=== PATIENT | female | born 1965 | race Caucasian/White ===

== ENCOUNTER → 2017-01-09 | Outpatient (CLI) | payer MEDICARE, OTHER ==
[~2017-01-09] MED LIST: ALPRAZolam 0.25 MG TAB PO STA
[2017-01-09 09:20] VITALS: BP 139/90; PULSE 99; RESP 18
[2017-01-09 09:35] LABS: Glucose,Whole Blood 365 mg/dL (75-99)
--- NOTE | 2017-01-09 11:14 | CT ---
EXAMINATION TYPE: CT angio chest DATE OF EXAM: 01/09/2017 COMPARISON: NONE HISTORY: Patient complains of MAYE chest pain. CT DLP: 1331.6 mGycm. Automated Exposure Control for Dose Reduction was Utilized. CONTRAST: CTA scan of the thorax is performed with IV Contrast, patient injected with 80 mL of Visipaque 320, p ulmonary embolism protocol. MIP Images are created on CT scanner and reviewed. The patient remain ag itated despite Xanax given for claustrophobia. Scanning was suboptimal due to patient body habitus an d CT machine triggering skinning early after contrast bolus. The patient was premedicated for iodine allergy. FINDINGS: LUNGS: Evaluation for pulmonary nodules limited secondary to extensive respiratory and patient motion . Scattered geographic groundglass opacities are seen throughout both lungs with a slightly lower lob e predominance. There is left hemidiaphragm elevation noted. There is no pleural effusion or pneumoth orax seen. The tracheobronchial tree is patent. MEDIASTINUM: The exam is nondiagnostic for pulmonary embolus. There are no greater than 1 cm hilar or mediastinal lymph nodes. No cardiomegaly or pericardial effusion is seen. There is engorgement of the superior vena cava and azygos veins. Main pulmonary artery is enlarged measuring 3.3 cm. OTHER: Moderate degenerative changes of the thoracic spine are noted. Numerous gallstones fill the pa rtially visualized gallbladder. IMPRESSION: 1. The exam is nondiagnostic for pulmonary embolus due to multiple penetrating factors. If there is f urther concern for pulmonary embolus nuclear medicine V/Q scan could be performed. 2. Multifocal groundglass opacities throughout the entirety of the lungs, partially related motion an d respiratory artifact, but also may represent mild interstitial pulmonary edema, possibly in the bas is of congestive heart failure as there is engorgement of the superior vena cava and azygos veins. 3. Left hemidiaphragm elevation, without comparison to prior exams it is unknown whether this is sand cutter terrance or new. Sniff test could be performed if there is concern for diaphragmatic paralyzation. 4. Enlargement of the main pulmonary artery that may clinically correlate with pulmonary arterial hyp ertension. 5. Numerous gallstones filling the partially visualized gallbladder.
== END | disposition home or self-care (01) ==
LOC: RADCTMAIN 01-08 17:13
PROVIDERS: ATTEND Internal Medicine Critical Care Medicine
DX: R91.8 Other nonspecific abnormal finding of lung field (principal); J98.6 Disorders of diaphragm
CPT/HCPCS: 82565; 84520; 71275; Q9967

== ENCOUNTER 2017-07-01 14:08 | Emergency (ER) | payer MEDICARE, OTHER ==
[2017-07-01] MEDS ORDERED: SODIUM CHLORIDE 0.9% 1,000 ML IV STA ×2 (14:51)
[2017-07-01] MEDS ORDERED: ONDANSETRON 4 MG/2 ML VIAL IVP STA (14:51)
--- NOTE | 2017-07-01 14:56 | ED ---
Abdominal Pain HPI - General Chief Complaint: Abdominal Pain Stated Complaint: poss kidney stones Time Seen by Provider: 07/01/17 14:32 Source: patient, RN notes reviewed, old records reviewed Mode of arrival: wheelchair Limitations: no limitations - History of Present Illness Initial Comments: 52-year-old female chief complaint of right-sided flank pain for the past 2 days , patient is concerned for UTI and kidney stones. She has history of obesity, CHF, Diabetes. She relates that she has nausea. Denies vomiting. She relates she has had normal bowel movements. She also states she has a history of known cholelithiasis. Patient reports that the pain is staying in her back. She denies any worsening chest pain and shortness of breath. She states that she has had some swelling come down from her legs. - Related Data Home Medications Medication Instructions Recorded Confirmed FLUoxetine HCL [PROzac] 20 mg PO BID 01/09/17 07/01/17 Furosemide [Lasix] 20 mg PO BID 01/09/17 07/01/17 Gabapentin [Neurontin] 600 mg PO BID 01/09/17 07/01/17 Gemfibrozil [Lopid] 600 tab PO BID 01/09/17 07/01/17 Glimepiride [Amaryl] 4 mg PO BID 01/09/17 07/01/17 Hydroxychloroquine Sulfate 200 mg PO BID 01/09/17 07/01/17 [Plaquenil] Insulin Glargine [Lantus] 60 unit SQ HS 01/09/17 07/01/17 Montelukast [Singulair] 10 mg PO DAILY 01/09/17 07/01/17 hydrOXYzine HCL [Atarax] 25 mg PO QID 01/09/17 07/01/17 traZODone HCL 50 mg PO HS 01/09/17 07/01/17 Albuterol Inhaler [Ventolin Hfa 2 puff INHALATION RT-Q4H PRN 01/14/17 07/01/17 Inhaler] Albuterol Nebulized [Ventolin 2.5 mg INHALATION RT-QID 01/14/17 07/01/17 Nebulized] Ondansetron HCl [Zofran] 8 mg PO BID 01/14/17 07/01/17 Aspirin EC [Ecotrin] 325 mg PO DAILY 07/01/17 07/01/17 Famotidine [Pepcid] 20 mg PO BID 07/01/17 07/01/17 predniSONE 5 mg PO BID 07/01/17 07/01/17 Previous Rx's Medication Instructions Recorded Acetaminophen-Codeine 300-30mg 1 tab PO Q6H PRN #12 tablet 07/01/17 [Tylenol #3] Nitrofurantoin Monohyd/M-Cryst 100 mg PO Q12HR #14 cap 07/01/17 [Macrobid] Ondansetron Odt [Zofran Odt] 4 mg PO Q8HR PRN #12 tab 07/01/17 Phenazopyridine [Pyridium] 100 mg PO TID #9 tablet 07/01/17 Allergies Allergy/AdvReac Type Severity Reaction Status Date / Time acetaminophen Allergy Swelling Verified 07/01/17 15:07 [From Darvocet-N] ciprofloxacin [From Cipro] Allergy Swelling Verified 07/01/17 15:07 diphenhydramine Allergy Swelling Verified 07/01/17 15:07 [From Benadryl] iodine Allergy Swelling Verified 07/01/17 15:07 propoxyphene Allergy Swelling Verified 07/01/17 15:07 [From Darvocet-N] red dye Allergy Swelling Verified 07/01/17 15:07 sulfacetamide Allergy Swelling Verified 07/01/17 15:07 [From Sulfamide] yellow dye Allergy Swelling Verified 07/01/17 15:07 Review of Systems ROS Statement: Those systems with pertinent positive or pertinent negative responses have been documented in the HPI. ROS Other: All systems not noted in ROS Statement are negative. Past Medical History Past Medical History: Cancer, Diabetes Mellitus, Deep Vein Thrombosis (DVT), Hypertension, Renal Disease, Rheumatoid Arthritis (RA), Thyroid Disorder Additional Past Medical History / Comment(s): lupus, leukemia,SLE LUPUS, GRAVES DZ , kidney stones,gout History of Any Multi-Drug Resistant Organisms: None Reported Past Surgical History: No Surgical Hx Reported Past Psychological History: No Psychological Hx Reported, Anxiety Smoking Status: Never smoker Past Alcohol Use History: None Reported Past Drug Use History: None Reported - Past Family History Mother Family Medical History: Congestive Heart Failure (CHF), Diabetes Mellitus Father Family Medical History: Congestive Heart Failure (CHF), Dialysis, Hypertension General Exam - General Exam Comments Initial Comments: This is a morbidly obese 52 year old female, no distress. Limitations: no limitations General appearance: alert, in no apparent distress Head exam: Present: atraumatic, normocephalic, normal inspection Eye exam: Present: normal appearance, PERRL, EOMI. Absent: scleral icterus, conjunctival injection, periorbital swelling ENT exam: Present: normal exam, mucous membranes moist Neck exam: Present: normal inspection. Absent: tenderness, meningismus, lymphadenopathy Respiratory exam: Present: normal lung sounds bilaterally, other (tenderness with minimal palpation over thoracic muscles and CVA tenderness. ). Absent: respiratory distress, wheezes, rales, rhonchi, stridor Cardiovascular Exam: Present: regular rate, normal rhythm, normal heart sounds. Absent: systolic murmur, diastolic murmur, rubs, gallop, clicks GI/Abdominal exam: Present: soft, normal bowel sounds, other (protruberant Panus. Rash noted underneath left panus. ). Absent: distended, tenderness, guarding, rebound, rigid Extremities exam: Present: normal inspection, full ROM, normal capillary refill. Absent: tenderness, pedal edema, joint swelling, calf tenderness Back exam: Present: CVA tenderness (R), paraspinal tenderness (over entire thoracic spine. Left and Right. ). Absent: normal inspection Neurological exam: Present: alert, oriented X3, CN II-XII intact Psychiatric exam: Present: normal affect, normal mood Skin exam: Present: warm, dry, intact, normal color. Absent: rash Course Vital Signs 07/01/17 07/01/17 07/01/17 14:29 16:35 17:02 Temperature 98.3 F 98.2 F 98 F Pulse Rate 94 83 93 Respiratory 20 18 20 Rate Blood Pressure 141/62 162/92 135/71 O2 Sat by Pulse 93 L 96 95 Oximetry Medical Decision Making - Medical Decision Making Patient is a 52 year old female with multiple comorbidities on 4L oxygen. She reports right flank pain for 2 days and odor to urine. Patient is adament about returning home, she refused CT scan at this time. Her urine is postibe for Large leukocyte esterase, 67 white blood cells. Many bacteria. 7 red blood cells. BUN is 24. Cr 1.4. Troponin is negative. BNP is within normal limits. White blood cells within normal limits at 9.0. Abdominal x-ray shows evidence of cholelithiasis. Limited exam noted. X-ray of the chest shows no acute cardio pulmonary process. At this time patient refuses CT for further testing for possible stone. Discussed at this time to treat UTI and patient given Rocephin and treated for pyelonephritis. She is allergic to cipro and bactrim. Discussed she has to have prompt follow up with PCP tomorrow. Will send her home with macrobid. All questions answered. Discharged home with nausea medication and pain medication. - Lab Data Result diagrams: 07/01/17 15:09 07/01/17 15:09 Lab Results 07/01/17 07/01/17 07/01/17 Range/Units 15:09 15:09 15:09 WBC 9.0 (3.8-10.6) k/uL RBC 4.56 (3.80-5.40) m/uL Hgb 12.6 (11.4-16.0) gm/dL Hct 37.3 (34.0-46.0) % MCV 81.7 (80.0-100.0) fL MCH 27.5 (25.0-35.0) pg MCHC 33.7 (31.0-37.0) g/dL RDW 13.0 (11.5-15.5) % Plt Count 383 (150-450) k/uL Neutrophils % 69 % Lymphocytes % 21 % Monocytes % 4 % Eosinophils % 5 % Basophils % 1 % Neutrophils # 6.2 (1.3-7.7) k/uL Lymphocytes # 1.9 (1.0-4.8) k/uL Monocytes # 0.3 (0-1.0) k/uL Eosinophils # 0.4 (0-0.7) k/uL Basophils # 0.1 (0-0.2) k/uL PT (9.0-12.0) sec INR (<1.2) APTT (22.0-30.0) sec Sodium 145 (137-145) mmol/L Potassium 4.9 (3.5-5.1) mmol/L Chloride 108 H (98-107) mmol/L Carbon Dioxide 22 (22-30) mmol/L Anion Gap 15 mmol/L BUN 24 H (7-17) mg/dL Creatinine 1.40 H (0.52-1.04) mg/dL Est GFR (CKD-EPI)AfAm 50 (>60 ml/min/1.73 sqM) Est GFR (CKD-EPI)NonAf 44 (>60 ml/min/1.73 sqM) Glucose 261 H (74-99) mg/dL Plasma Lactic Acid Efrain 1.5 (0.7-2.0) mmol/L Calcium 9.5 (8.4-10.2) mg/dL Magnesium 1.7 (1.6-2.3) mg/dL Total Bilirubin 0.5 (0.2-1.3) mg/dL AST 16 (14-36) U/L ALT 23 (9-52) U/L Alkaline Phosphatase 142 H (38-126) U/L Troponin I (0.000-0.034) ng/mL NT-Pro-B Natriuret Pep pg/mL Total Protein 7.5 (6.3-8.2) g/dL Albumin 4.1 (3.5-5.0) g/dL Amylase 45 (30-110) U/L Lipase 102 (23-300) U/L Urine Color Urine Appearance (Clear) Urine pH (5.0-8.0) Ur Specific Somers (1.001-1.035) Urine Protein (Negative) Urine Glucose (UA) (Negative) Urine Ketones (Negative) Urine Blood (Negative) Urine Nitrite (Negative) Urine Bilirubin (Negative) Urine Urobilinogen (<2.0) mg/dL Ur Leukocyte Esterase (Negative) Urine RBC (0-5) /hpf Urine WBC (0-5) /hpf Ur Squamous Epith Cells (0-4) /hpf Urine Bacteria (None) /hpf Hyaline Casts (0-2) /lpf Urine Mucus (None) /hpf 07/01/17 07/01/17 07/01/17 Range/Units 15:09 15:09 15:09 WBC (3.8-10.6) k/uL RBC (3.80-5.40) m/uL Hgb (11.4-16.0) gm/dL Hct (34.0-46.0) % MCV (80.0-100.0) fL MCH (25.0-35.0) pg MCHC (31.0-37.0) g/dL RDW (11.5-15.5) % Plt Count (150-450) k/uL Neutrophils % % Lymphocytes % % Monocytes % % Eosinophils % % Basophils % % Neutrophils # (1.3-7.7) k/uL Lymphocytes # (1.0-4.8) k/uL Monocytes # (0-1.0) k/uL Eosinophils # (0-0.7) k/uL Basophils # (0-0.2) k/uL PT 9.9 (9.0-12.0) sec INR 1.0 (<1.2) APTT 22.7 (22.0-30.0) sec Sodium (137-145) mmol/L Potassium (3.5-5.1) mmol/L Chloride (98-107) mmol/L Carbon Dioxide (22-30) mmol/L Anion Gap mmol/L BUN (7-17) mg/dL Creatinine (0.52-1.04) mg/dL Est GFR (CKD-EPI)AfAm (>60 ml/min/1.73 sqM) Est GFR (CKD-EPI)NonAf (>60 ml/min/1.73 sqM) Glucose (74-99) mg/dL Plasma Lactic Acid Efrain (0.7-2.0) mmol/L Calcium (8.4-10.2) mg/dL Magnesium (1.6-2.3) mg/dL Total Bilirubin (0.2-1.3) mg/dL AST (14-36) U/L ALT (9-52) U/L Alkaline Phosphatase (38-126) U/L Troponin I <0.012 (0.000-0.034) ng/mL NT-Pro-B Natriuret Pep 253 pg/mL Total Protein (6.3-8.2) g/dL Albumin (3.5-5.0) g/dL Amylase (30-110) U/L Lipase (23-300) U/L Urine Color Urine Appearance (Clear) Urine pH (5.0-8.0) Ur Specific Somers (1.001-1.035) Urine Protein (Negative) Urine Glucose (UA) (Negative) Urine Ketones (Negative) Urine Blood (Negative) Urine Nitrite (Negative) Urine Bilirubin (Negative) Urine Urobilinogen (<2.0) mg/dL Ur Leukocyte Esterase (Negative) Urine RBC (0-5) /hpf Urine WBC (0-5) /hpf Ur Squamous Epith Cells (0-4) /hpf Urine Bacteria (None) /hpf Hyaline Casts (0-2) /lpf Urine Mucus (None) /hpf 07/01/17 Range/Units 15:30 WBC (3.8-10.6) k/uL RBC (3.80-5.40) m/uL Hgb (11.4-16.0) gm/dL Hct (34.0-46.0) % MCV (80.0-100.0) fL MCH (25.0-35.0) pg MCHC (31.0-37.0) g/dL RDW (11.5-15.5) % Plt Count (150-450) k/uL Neutrophils % % Lymphocytes % % Monocytes % % Eosinophils % % Basophils % % Neutrophils # (1.3-7.7) k/uL Lymphocytes # (1.0-4.8) k/uL Monocytes # (0-1.0) k/uL Eosinophils # (0-0.7) k/uL Basophils # (0-0.2) k/uL PT (9.0-12.0) sec INR (<1.2) APTT (22.0-30.0) sec Sodium (137-145) mmol/L Potassium (3.5-5.1) mmol/L Chloride (98-107) mmol/L Carbon Dioxide (22-30) mmol/L Anion Gap mmol/L BUN (7-17) mg/dL Creatinine (0.52-1.04) mg/dL Est GFR (CKD-EPI)AfAm (>60 ml/min/1.73 sqM) Est GFR (CKD-EPI)NonAf (>60 ml/min/1.73 sqM) Glucose (74-99) mg/dL Plasma Lactic Acid Efrain (0.7-2.0) mmol/L Calcium (8.4-10.2) mg/dL Magnesium (1.6-2.3) mg/dL Total Bilirubin (0.2-1.3) mg/dL AST (14-36) U/L ALT (9-52) U/L Alkaline Phosphatase (38-126) U/L Troponin I (0.000-0.034) ng/mL NT-Pro-B Natriuret Pep pg/mL Total Protein (6.3-8.2) g/dL Albumin (3.5-5.0) g/dL Amylase (30-110) U/L Lipase (23-300) U/L Urine Color Yellow Urine Appearance Cloudy H (Clear) Urine pH 5.0 (5.0-8.0) Ur Specific Somers 1.016 (1.001-1.035) Urine Protein Trace H (Negative) Urine Glucose (UA) Trace H (Negative) Urine Ketones Negative (Negative) Urine Blood Small H (Negative) Urine Nitrite Negative (Negative) Urine Bilirubin Negative (Negative) Urine Urobilinogen <2.0 (<2.0) mg/dL Ur Leukocyte Esterase Large H (Negative) Urine RBC 7 H (0-5) /hpf Urine WBC 67 H (0-5) /hpf Ur Squamous Epith Cells 2 (0-4) /hpf Urine Bacteria Many H (None) /hpf Hyaline Casts 3 H (0-2) /lpf Urine Mucus Rare H (None) /hpf 07/01/17 16:20 EKG shows normal sinus rhythm, rightward axis. Borderline EKG. Ventricular rate of 83 bpm. ND interval 160 ms. QRS duration 86 ms. QT QTc is 396/465 ms. No notes of ST elevation or T-wave inversions. No speech or ventricular arrhythmias. - Radiology Data Radiology results: report reviewed CXR was reviewed and normal. KUB shows cholelithiasis. Disposition Clinical Impression: UTI (urinary tract infection) Disposition: HOME SELF-CARE Condition: Stable Instructions: Urinary Tract Infection in Women (ED) Additional Instructions: Patient is a follow-up with primary care provider in the next 1-2 days. Take antibiotics as prescribed. Return to emergency department if any alarming signs or symptoms occur. Prescriptions: Acetaminophen-Codeine 300-30mg [Tylenol #3] 1 tab PO Q6H PRN #12 tablet PRN Reason: Pain Nitrofurantoin Monohyd/M-Cryst [Macrobid] 100 mg PO Q12HR #14 cap Ondansetron Odt [Zofran Odt] 4 mg PO Q8HR PRN #12 tab PRN Reason: Pain Phenazopyridine [Pyridium] 100 mg PO TID #9 tablet Referrals: Fela Alicea MD [Primary Care Provider] - 1-2 days Time of Disposition: 16:48
[2017-07-01 15:24] LABS: Basophils # (A) 0.1 k/uL (0-0.2); Basophils % (A) 1 %; Eosinophils # (A) 0.4 k/uL (0-0.7); Eosinophils % (A) 5 %; HCT 37.3 % (34.0-46.0); HGB 12.6 gm/dL (11.4-16.0); Lymphocytes # (A) 1.9 k/uL (1.0-4.8); Lymphocytes % (A) 21 %; MCH 27.5 pg (25.0-35.0); MCHC 33.7 g/dL (31.0-37.0); MCV 81.7 fL (80.0-100.0); Mean Platelet Volume 7.1; Monocytes # (A) 0.3 k/uL (0-1.0); Monocytes % (A) 4 %; Neutrophils # (A) 6.2 k/uL (1.3-7.7); Neutrophils % (A) 69 %; Platelet Count 383 k/uL (150-450); RBC 4.56 m/uL (3.80-5.40)
[2017-07-01 15:33] LABS: Partial Thromboplastin Time 22.7 sec (22.0-30.0); Prothrombin Time 9.9 sec (9.0-12.0)
[2017-07-01 15:34] LABS: Albumin 4.1 g/dL (3.5-5.0); Calcium 9.5 mg/dL (8.4-10.2); Magnesium 1.7 mg/dL (1.6-2.3); Potassium 4.9 mmol/L (3.5-5.1); Total Bilirubin 0.5 mg/dL (0.2-1.3); Total Protein 7.5 g/dL (6.3-8.2)
--- NOTE | 2017-07-01 15:51 | XR ---
EXAMINATION TYPE: XR chest 2V DATE OF EXAM: 07/01/2017 COMPARISON: Prior chest x-ray 01/14/2017 HISTORY: Abdominal pain TECHNIQUE: Frontal and lateral views of the chest are obtained. FINDINGS: There is no focal air space opacity, pleural effusion, or pneumothorax seen. The cardiac silhouette size is stable. The osseous structures are intact. IMPRESSION: No acute cardiopulmonary process.
--- NOTE | 2017-07-01 15:53 | XR ---
Abdomen HISTORY: Pain Frontal view of the abdomen submitted on [address] chest 01/09/2017 Lung bases are clear. There is no evident bowel obstruction or pneumoperitoneum. Hyperdense material present in the right upper quadrant represents gallstones. Thoracic spondylosis is present. Exam may be limited by patient body habitus. IMPRESSION: Cholelithiasis. Limited exam.
[2017-07-01 15:56] LABS: Appearance,Urine Cloudy (Clear); Bacteria,Urine Many /hpf; Bilirubin,Urine Negative (Negative); Blood,Urine Small (Negative); Color,Urine Yellow; Glucose,Urine (UA) Trace (Negative); Hyaline Casts,Urine 3 /lpf (0-2); Ketones,Urine Negative (Negative); Leukocyte Esterase,Urine Large (Negative); Mucus,Urine Rare /hpf; Nitrite,Urine Negative (Negative); Protein,Urine Trace (Negative); RBC,Urine 7 /hpf (0-5); Specific Gravity,Urine 1.016 (1.001-1.035); Squamous Epithelial Cell,Urine 2 /hpf (0-4); Urobilinogen,Urine <2.0 mg/dL (<2.0); WBC,Urine 67 /hpf (0-5)
[2017-07-01] MEDS ORDERED: cefTRIAXone IN SWFI 1,000 MG/10 ML SYRINGE IVP STA (16:19)
[2017-07-01] MEDS ORDERED: MORPHINE SULFATE/PF 10MG/10ML VL IVP ONE (16:32)
[2017-07-01 17:02] VITALS: BP 135/71; PULSE 93; RESP 20; TEMP 98
== END 2017-07-01 17:15 | disposition home or self-care (01) ==
LOC: EC 14:08
DX: N39.0 Urinary tract infection, site not specified (principal); K80.20 Calculus of gallbladder without cholecystitis without obstruction; M54.6 Pain in thoracic spine; I11.0 Hypertensive heart disease with heart failure; I50.9 Heart failure, unspecified; E11.9 Type 2 diabetes mellitus without complications; E07.9 Disorder of thyroid, unspecified; M06.9 Rheumatoid arthritis, unspecified; N28.9 Disorder of kidney and ureter, unspecified; E66.9 Obesity, unspecified; Z68.44 Body mass index [BMI] 60.0-69.9, adult; M32.9 Systemic lupus erythematosus, unspecified; F41.9 Anxiety disorder, unspecified; Z87.442 Personal history of urinary calculi; Z85.6 Personal history of leukemia; Z79.82 Long term (current) use of aspirin; Z79.52 Long term (current) use of systemic steroids; Z79.4 Long term (current) use of insulin; Z79.899 Other long term (current) drug therapy; Z88.1 Allergy status to other antibiotic agents; Z88.6 Allergy status to analgesic agent; Z88.5 Allergy status to narcotic agent; Z88.2 Allergy status to sulfonamides; Z88.8 Allergy status to other drugs, medicaments and biological substances; Z91.09 Other allergy status, other than to drugs and biological substances
CPT/HCPCS: 36415; 93005; 83880; 80053; 82150; 83605; 83690; 83735; 84484; 85025; 85610; 85730; 81001; 87040; 71046; 74018; 99284; 96374; 96375 ×2; 96361; J2405; J0696; J2270

== ENCOUNTER → 2018-07-13 | Outpatient (CLI) | payer MEDICARE, OTHER ==
[2018-07-13 17:09] LABS: Basophils # (A) 0.1 k/uL (0-0.2); Basophils % (A) 1 %; Eosinophils # (A) 0.4 k/uL (0-0.7); Eosinophils % (A) 3 %; HCT 42.6 % (34.0-46.0); HGB 14.1 gm/dL (11.4-16.0); Lymphocytes # (A) 2.5 k/uL (1.0-4.8); Lymphocytes % (A) 21 %; MCH 27.5 pg (25.0-35.0); MCV 83.2 fL (80.0-100.0); Mean Platelet Volume 7.4; Monocytes # (A) 0.6 k/uL (0-1.0); Monocytes % (A) 5 %; Neutrophils # (A) 8.3 k/uL (1.3-7.7); Neutrophils % (A) 69 %; Platelet Count 397 k/uL (150-450); RBC 5.12 m/uL (3.80-5.40); RDW 14.2 % (11.5-15.5); WBC 11.9 k/uL (3.8-10.6)
[2018-07-13 17:43] LABS: Appearance,Urine Cloudy (Clear); Bacteria,Urine Rare /hpf; Bilirubin,Urine Negative (Negative); Blood,Urine Negative (Negative); Color,Urine Yellow; Glucose,Urine (UA) Negative (Negative); Hyaline Casts,Urine 10 /lpf (0-2); Ketones,Urine Negative (Negative); Leukocyte Esterase,Urine Small (Negative); Mucus,Urine Rare /hpf; Nitrite,Urine Negative (Negative); Protein,Urine Trace (Negative); RBC,Urine 2 /hpf (0-5); Specific Gravity,Urine 1.013 (1.001-1.035); Squamous Epithelial Cell,Urine 4 /hpf (0-4); Urobilinogen,Urine <2.0 mg/dL (<2.0)
[2018-07-13 23:19] LABS: Creatinine,Urine Random 106.5 mg/dL
[2018-07-13 23:37] LABS: Iron Saturation 22.51 (12.00-45.00)
[2018-07-13 23:48] LABS: Total Protein,Urine Random 18.1 mg/dL (0.0-13.5)
[2018-07-13 23:56] LABS: Vitamin D 25 Hydroxy 12.3 ng/mL (30.0-100.0)
[2018-07-14 00:03] LABS: Albumin 4.7 g/dL (3.80-4.90); Anion Gap 12.5 mmol/L (4.00-12.00); Calcium 9.3 mg/dL (8.7-10.3); Carbon Dioxide 22.5 mmol/L (21.6-31.8); Magnesium 1.8 mg/dL (1.5-2.4); Phosphorus 3.2 mg/dL (2.4-5.1); Uric Acid 9.7 mg/dL (2.9-7.7)
[2018-07-14 01:05] LABS: Hemoglobin A1C 8.3 % (4.0-6.0)
== END | disposition home or self-care (01) ==
LOC: LABWHC1 16:24
PROVIDERS: ATTEND Nurse Practitioner Family
DX: N39.0 Urinary tract infection, site not specified (principal); E55.9 Vitamin D deficiency, unspecified; N25.81 Secondary hyperparathyroidism of renal origin; M10.9 Gout, unspecified; D63.1 Anemia in chronic kidney disease; N18.3 Chronic kidney disease, stage 3 (moderate); E11.65 Type 2 diabetes mellitus with hyperglycemia; D50.9 Iron deficiency anemia, unspecified
CPT/HCPCS: 36415; 80048; 81001; 82040; 82306; 82570; 82728; 83036; 83540; 83550; 83735; 83970; 84100; 84156; 84550; 85025

== ENCOUNTER → 2018-07-17 | Outpatient (CLI) | payer MEDICARE, OTHER ==
[2018-07-17 19:06] LABS: LDL Cholesterol,Calculated 93.8 mg/dL (0.0-131.0); VLDL Calculation 50.2 mg/dL (5.00-40.00)
== END | disposition home or self-care (01) ==
LOC: LABWHC1 11:43
PROVIDERS: ATTEND Internal Medicine Endocrinology, Diabetes & Metabolism
DX: E78.2 Mixed hyperlipidemia (principal)
CPT/HCPCS: 36415; 80061

== ENCOUNTER → 2019-02-16 | Outpatient (CLI) | payer MEDICARE, OTHER ==
[2019-02-16 13:44] LABS: Basophils # (A) 0.1 k/uL (0-0.2); Basophils % (A) 1 %; Eosinophils # (A) 0.4 k/uL (0-0.7); Eosinophils % (A) 4 %; HCT 39.6 % (34.0-46.0); HGB 12.9 gm/dL (11.4-16.0); Lymphocytes # (A) 2.2 k/uL (1.0-4.8); Lymphocytes % (A) 19 %; MCH 27.8 pg (25.0-35.0); MCHC 32.5 g/dL (31.0-37.0); MCV 85.5 fL (80.0-100.0); Monocytes # (A) 0.4 k/uL (0-1.0); Monocytes % (A) 4 %; Neutrophils # (A) 8.1 k/uL (1.3-7.7); Neutrophils % (A) 72 %; Platelet Count 365 k/uL (150-450); RBC 4.64 m/uL (3.80-5.40); RDW 13.9 % (11.5-15.5); WBC 11.3 k/uL (3.8-10.6)
[2019-02-16 13:56] LABS: Appearance,Urine Cloudy (Clear); Bilirubin,Urine Negative (Negative); Blood,Urine Trace (Negative); Color,Urine Yellow; Glucose,Urine (UA) 3+ (Negative); Ketones,Urine Negative (Negative); Leukocyte Esterase,Urine Moderate (Negative); Mucus,Urine Rare /hpf; Nitrite,Urine Negative (Negative); Protein,Urine Trace (Negative); RBC,Urine 2 /hpf (0-5); Specific Gravity,Urine 1.019 (1.001-1.035); Squamous Epithelial Cell,Urine 2 /hpf (0-4); Urobilinogen,Urine <2.0 mg/dL (<2.0); WBC,Urine 22 /hpf (0-5)
[2019-02-16 20:06] LABS: % Iron Saturation 20.13 (12.00-45.00); African American GFR (CKD) 49.9 (60.0-200.0); Albumin 4.7 g/dL (3.80-4.90); Anion Gap 9.8 mmol/L (4.00-12.00); BUN/Creat Ratio 19.29 Ratio (12.00-20.00); Calcium 9.1 mg/dL (8.7-10.3); Carbon Dioxide 22.2 mmol/L (21.6-31.8); Magnesium 1.8 mg/dL (1.5-2.4); Phosphorus 3.2 mg/dL (2.4-5.1); Potassium 4.8 mmol/L (3.5-5.5); Uric Acid 7.5 mg/dL (2.9-7.7)
[2019-02-16 20:15] LABS: Ferritin 129.2 ng/mL (10.0-291.0)
[2019-02-16 20:28] LABS: Creatinine,Urine Random 165.3 mg/dL
[2019-02-16 20:36] LABS: Total Protein,Urine Random 39.1 mg/dL (0.0-13.5)
== END | disposition home or self-care (01) ==
LOC: LABWHC1 12:44
PROVIDERS: ATTEND Internal Medicine Nephrology
DX: N39.0 Urinary tract infection, site not specified (principal); E55.9 Vitamin D deficiency, unspecified; N25.81 Secondary hyperparathyroidism of renal origin; D63.1 Anemia in chronic kidney disease; M10.9 Gout, unspecified; N18.3 Chronic kidney disease, stage 3 (moderate); E21.1 Secondary hyperparathyroidism, not elsewhere classified; R80.9 Proteinuria, unspecified; E11.9 Type 2 diabetes mellitus without complications; I10 Essential (primary) hypertension; E78.5 Hyperlipidemia, unspecified; R07.9 Chest pain, unspecified
CPT/HCPCS: 36415; 80048; 81001; 82040; 82306; 82570; 82728; 83540; 83550; 83735; 83970; 84100; 84156; 84550; 85025

== ENCOUNTER → 2020-04-05 | Outpatient (CLI) | payer MEDICARE, OTHER ==
--- NOTE | 2020-04-05 14:35 | MM ---
Reason for exam: screening (asymptomatic). Baseline mammogram. History: Patient is postmenopausal and is nulliparous. Physical Findings: Nurse did not find any significant physical abnormalities on exam. MG 3D Screening Mammo W/Cad Bilateral CC, MLO, and XCCL view(s) were taken. There are scattered fibroglandular densities. Benign calcifications. There is no discrete abnormality. These results were verbally communicated with the patient and result sheet given to the patient on 04/05/20. ASSESSMENT: Benign, BI-RAD 2 RECOMMENDATION: Routine screening mammogram of both breasts in 1 year. Manage patient on a clinical basis.
== END | disposition home or self-care (01) ==
LOC: RADMAMWWP 06-24 15:07
PROVIDERS: ATTEND Internal Medicine
DX: Z12.31 Encounter for screening mammogram for malignant neoplasm of breast (principal)
CPT/HCPCS: 77063; 77067

== ENCOUNTER 2021-12-22 18:31 | Emergency (ER) | payer MEDICARE ==
[2021-12-22 19:07] VITALS: PULSE 75; TEMP 98
[2021-12-22] MEDS ORDERED: SODIUM CHLORIDE 0.9% 500 ML 500 ML IV ONE ×2 (19:51→21:44)
--- NOTE | 2021-12-22 19:55 | ED ---
Female Urogenital HPI - General Chief complaint: Vaginal Bleeding Stated complaint: vaginal bleeding Time Seen by Provider: 12/22/21 19:48 Source: patient, RN notes reviewed, old records reviewed Mode of arrival: wheelchair Limitations: no limitations - History of Present Illness Initial comments: 56-year-old female presents to the emergency room with 9 days of vaginal bleeding. She denies any pain. She states that she is going through 3 heavy flow pads a day. Her last menstrual cycle was 10 years ago she states related to her lupus. She does have a history of hypertension, DVT, rheumatoid arthritis. She states that she is not taking any blood thinners. MD Complaint: vaginal bleeding -: days(s) (9) Severity scale (1-10): 0 Patient : No Associated Symptoms: other (rectal bleeding) - Related Data Home Medications Medication Instructions Recorded Confirmed FLUoxetine HCL [PROzac] 20 mg PO BID 01/09/17 07/01/17 Furosemide [Lasix] 20 mg PO BID 01/09/17 07/01/17 Gabapentin [Neurontin] 600 mg PO BID 01/09/17 07/01/17 Glimepiride [Amaryl] 4 mg PO BID 01/09/17 07/01/17 Hydroxychloroquine Sulfate 200 mg PO BID 01/09/17 07/01/17 [Plaquenil] Insulin Glargine [Lantus] 60 unit SQ HS 01/09/17 07/01/17 Montelukast [Singulair] 10 mg PO DAILY 01/09/17 07/01/17 gemfibroziL [Lopid] 600 tab PO BID 01/09/17 07/01/17 hydrOXYzine HCL [Atarax] 25 mg PO QID 01/09/17 07/01/17 traZODone HCL 50 mg PO HS 01/09/17 07/01/17 Albuterol Inhaler [Ventolin Hfa 2 puff INHALATION RT-Q4H PRN 01/14/17 07/01/17 Inhaler] Albuterol Nebulized [Ventolin 2.5 mg INHALATION RT-QID 01/14/17 07/01/17 Nebulized] ondansetron HCL [Zofran] 8 mg PO BID 01/14/17 07/01/17 Aspirin EC [Ecotrin] 325 mg PO DAILY 07/01/17 07/01/17 Famotidine [Pepcid] 20 mg PO BID 07/01/17 07/01/17 predniSONE 5 mg PO BID 07/01/17 07/01/17 Previous Rx's Medication Instructions Recorded Acetaminophen-Codeine 300-30mg 1 tab PO Q6H PRN #12 tablet 07/01/17 [Tylenol #3] Nitrofurantoin Monohyd/M-Cryst 100 mg PO Q12HR #14 cap 07/01/17 [Macrobid] Ondansetron Odt [Zofran Odt] 4 mg PO Q8HR PRN #12 tab 07/01/17 Phenazopyridine [Pyridium] 100 mg PO TID #9 tablet 07/01/17 Allergies Allergy/AdvReac Type Severity Reaction Status Date / Time acetaminophen Allergy Swelling Verified 12/22/21 19:05 [From Darvocet-N] ciprofloxacin [From Cipro] Allergy Swelling Verified 12/22/21 19:05 diphenhydramine Allergy Swelling Verified 12/22/21 19:05 [From Benadryl] iodine Allergy Swelling Verified 12/22/21 19:05 propoxyphene Allergy Swelling Verified 12/22/21 19:05 [From Darvocet-N] red dye Allergy Swelling Verified 12/22/21 19:05 sulfacetamide Allergy Swelling Verified 12/22/21 19:05 [From Sulfamide] yellow dye Allergy Swelling Verified 12/22/21 19:05 Review of Systems ROS Statement: Those systems with pertinent positive or pertinent negative responses have been documented in the HPI. ROS Other: All systems not noted in ROS Statement are negative. Past Medical History Past Medical History: Cancer, Diabetes Mellitus, Deep Vein Thrombosis (DVT), Hypertension, Renal Disease, Rheumatoid Arthritis (RA), Thyroid Disorder Additional Past Medical History / Comment(s): lupus, leukemia,SLE LUPUS, GRAVES DZ , kidney stones,gout History of Any Multi-Drug Resistant Organisms: None Reported Past Surgical History: No Surgical Hx Reported Past Psychological History: No Psychological Hx Reported, Anxiety Past Alcohol Use History: None Reported Past Drug Use History: None Reported - Past Family History Mother Family Medical History: Congestive Heart Failure (CHF), Diabetes Mellitus Father Family Medical History: Congestive Heart Failure (CHF), Dialysis, Hypertension General Exam Limitations: no limitations General appearance: alert, in no apparent distress Head exam: Present: atraumatic Eye exam: Absent: scleral icterus, conjunctival injection, periorbital swelling, periorbital tenderness ENT exam: Present: mucous membranes moist Respiratory exam: Present: decreased breath sounds (Poor inspiratory effort). Absent: respiratory distress, wheezes, rales, rhonchi, stridor, accessory muscle use Cardiovascular Exam: Present: regular rate GI/Abdominal exam: Present: soft External exam: Absent: swelling, lesions, lacerations, ecchymosis Speculum exam: Present: vaginal bleeding, other (Large clots , unable to tolerate speculum exam) Extremities exam: Present: normal capillary refill. Absent: calf tenderness Neurological exam: Present: alert, oriented X3 Psychiatric exam: Present: normal affect, normal mood Skin exam: Present: warm, dry, pallor. Absent: rash, cyanosis, diaphoretic, petechiae Course Vital Signs 12/22/21 12/22/21 19:05 22:25 Temperature 98 F Pulse Rate 75 75 Respiratory 16 18 Rate Blood Pressure 100/64 106/83 O2 Sat by Pulse 92 L 100 Oximetry Medical Decision Making - Medical Decision Making Patient presents with vaginal bleeding for 9 days with heavy clots. Hemoglobin and Hematocrit are stable. Patient was unable to tolerate transvaginal ultrasound. On pelvic examination there was evidence of large c lots however patient was unable to tolerate a speculum exam related to discomfort. CT abdomen shows thickened endometrium with large uterus. No free fluid in the pelvis. I did explain to the patient the importance of following up with [facility] for continuation of care for her dysfunctional uterine bleeding. She was directed to return to the emergency room with any new or concerning symptoms including shortness of breath, dizziness or increased pain. Vital signs are stable. Case discussed with Dr Tipton, - Lab Data Result diagrams: 12/22/21 21:00 12/22/21 21:07 Lab Results 12/22/21 12/22/21 12/22/21 Range/Units 20:55 21:00 21:07 WBC 11.4 H (3.8-10.6) k/uL RBC 4.10 (3.80-5.40) m/uL Hgb 11.0 L (11.4-16.0) gm/dL Hct 34.3 (34.0-46.0) % MCV 83.7 (80.0-100.0) fL MCH 26.7 (25.0-35.0) pg MCHC 31.9 (31.0-37.0) g/dL RDW 14.4 (11.5-15.5) % Plt Count 379 (150-450) k/uL MPV 7.8 Neutrophils % 69 % Lymphocytes % 17 % Monocytes % 6 % Eosinophils % 4 % Basophils % 1 % Neutrophils # 7.9 H (1.3-7.7) k/uL Lymphocytes # 2.0 (1.0-4.8) k/uL Monocytes # 0.7 (0-1.0) k/uL Eosinophils # 0.4 (0-0.7) k/uL Basophils # 0.1 (0-0.2) k/uL PT 10.9 (9.0-12.0) sec INR 1.0 (<1.2) APTT 24.4 (22.0-30.0) sec Sodium (137-145) mmol/L Potassium (3.5-5.1) mmol/L Chloride (98-107) mmol/L Carbon Dioxide (22-30) mmol/L Anion Gap mmol/L BUN (7-17) mg/dL Creatinine (0.52-1.04) mg/dL Est GFR (CKD-EPI)AfAm (>60 ml/min/1.73 sqM) Est GFR (CKD-EPI)NonAf (>60 ml/min/1.73 sqM) Glucose (74-99) mg/dL Calcium (8.4-10.2) mg/dL Blood Type Blood Type Confirm AB Positive Blood Type Recheck Bld Type Recheck Status Antibody Screen Spec Expiration Date 12/22/21 12/22/21 Range/Units 21:07 21:07 WBC (3.8-10.6) k/uL RBC (3.80-5.40) m/uL Hgb (11.4-16.0) gm/dL Hct (34.0-46.0) % MCV (80.0-100.0) fL MCH (25.0-35.0) pg MCHC (31.0-37.0) g/dL RDW (11.5-15.5) % Plt Count (150-450) k/uL MPV Neutrophils % % Lymphocytes % % Monocytes % % Eosinophils % % Basophils % % Neutrophils # (1.3-7.7) k/uL Lymphocytes # (1.0-4.8) k/uL Monocytes # (0-1.0) k/uL Eosinophils # (0-0.7) k/uL Basophils # (0-0.2) k/uL PT (9.0-12.0) sec INR (<1.2) APTT (22.0-30.0) sec Sodium 136 L (137-145) mmol/L Potassium 5.0 (3.5-5.1) mmol/L Chloride 96 L (98-107) mmol/L Carbon Dioxide 23 (22-30) mmol/L Anion Gap 17 mmol/L BUN 52 H (7-17) mg/dL Creatinine 2.40 H (0.52-1.04) mg/dL Est GFR (CKD-EPI)AfAm 26 (>60 ml/min/1.73 sqM) Est GFR (CKD-EPI)NonAf 22 (>60 ml/min/1.73 sqM) Glucose 333 H (74-99) mg/dL Calcium 9.3 (8.4-10.2) mg/dL Blood Type AB Positive Blood Type Confirm Blood Type Recheck No Previous Record Bld Type Recheck Status CABO Indicated Antibody Screen NEGATIVE Spec Expiration Date 12/25/20212306 Disposition Clinical Impression: Dysfunctional uterine bleeding Disposition: HOME SELF-CARE Condition: Good Instructions (If sedation given, give patient instructions): Abnormal (Dysfunctional) Uterine Bleeding (ED) Additional Instructions: Increase your fluid intake. Follow-up with [facility] next week. Return to the emergency room with any new or concerning symptoms including shortness of breath or pain. Is patient prescribed a controlled substance at d/c from ED?: No Referrals: Fela Alicea MD [Primary Care Provider] - 1-2 days Génesis Hyman DO [Doctor of Osteopathic Medicine] - 1-2 days Kyung Smith MD [STAFF PHYSICIAN] - 1-2 days Time of Disposition: 23:47
[2021-12-22 21:26] LABS: Basophils # (A) 0.1 k/uL (0-0.2); Basophils % (A) 1 %; Eosinophils # (A) 0.4 k/uL (0-0.7); Eosinophils % (A) 4 %; HCT 34.3 % (34.0-46.0); Lymphocytes % (A) 17 %; MCH 26.7 pg (25.0-35.0); MCHC 31.9 g/dL (31.0-37.0); MCV 83.7 fL (80.0-100.0); Mean Platelet Volume 7.8; Monocytes # (A) 0.7 k/uL (0-1.0); Monocytes % (A) 6 %; Neutrophils # (A) 7.9 k/uL (1.3-7.7); Neutrophils % (A) 69 %; Platelet Count 379 k/uL (150-450); RDW 14.4 % (11.5-15.5); WBC 11.4 k/uL (3.8-10.6)
[2021-12-22 21:34] LABS: Calcium 9.3 mg/dL (8.4-10.2); Partial Thromboplastin Time 24.4 sec (22.0-30.0); Prothrombin Time 10.9 sec (9.0-12.0)
[2021-12-22 22:26] VITALS: BP 106/83; RESP 18
--- NOTE | 2021-12-22 23:06 | CT ---
EXAMINATION TYPE: CT abdomen pelvis wo con DATE OF EXAM: 12/22/2021 COMPARISON: None HISTORY: Postmenopausal bleeding. Pelvic pain. CT DLP: mGycm Automated exposure control for dose reduction was used. Images obtained from the diaphragm to the floor the pelvis with no contrast. Exam limited by the robbie ent's size. The lung bases are clear of consolidation. There is mild subsegmental atelectasis at the lung bases. Heart size is normal. No pericardial effusion. Liver spleen and stomach pancreas appear intact. There are numerous calcified gallstones. The bile ducts are not dilated. There is no adrenal mass. Kidneys have fairly normal size. No hydronephrosis. Ureters are not dilated . No retroperitoneal adenopathy. The bladder distends smoothly. No inguinal hernia. Uterus is antever soo. There is some mild thickening of the endometrium. No free fluid in the pelvis. Appendix appears normal. There is no mesenteric edema. No ascites or free air. No sign of a bowel obstruction. Lumbar vertebra e have normal alignment. Posterior elements are intact. No compression fracture. The bony pelvis is i ntact. The hip joints are intact. Sacroiliac joints are intact. IMPRESSION: Thickened endometrium with large uterus. Cholelithiasis. Normal appendix.
== END 2021-12-23 00:25 | disposition home or self-care (01) ==
LOC: EC 18:31
DX: N93.8 Other specified abnormal uterine and vaginal bleeding (principal); E11.9 Type 2 diabetes mellitus without complications; Z88.6 Allergy status to analgesic agent; Z88.8 Allergy status to other drugs, medicaments and biological substances; Z91.041 Radiographic dye allergy status; Z88.2 Allergy status to sulfonamides
CPT/HCPCS: 36415; 74176; 80048; 85025; 85610; 85730; 86850; 86900; 86901; 96360; 96361; 99284

== ENCOUNTER → 2022-01-21 | Outpatient (CLI) | payer MEDICARE ==
[2022-01-21 17:45] LABS: Basophils # (A) 0.07 X 10*3/uL (0.00-0.10); Basophils % (A) 0.8 %; Eosinophils # (A) 0.44 X 10*3/uL (0.04-0.35); Eosinophils % (A) 4.9 %; HCT 32.3 % (37.2-46.3); HGB 10.3 g/dL (12.0-15.0); Immature Grans, Automated 0.3 %; Lymphocytes % (A) 19.9 %; MCH 27.3 pg (27.0-32.0); MCHC 31.9 g/dL (32.0-37.0); MCV 85.7 fL (80.0-97.0); Mean Platelet Volume 11.2 fL (9.5-12.2); Monocytes # (A) 0.54 X 10*3/uL (0.20-1.00); NRBC Per 100 WBC 0 /100 WBCS (0.0-0.0); Neutrophils # (A) 6.17 X 10*3/uL (1.80-7.70); Neutrophils % (A) 68.1 %; Platelet Count 361 X 10*3/uL (140-440); RBC 3.77 X 10*6/uL (4.10-5.20); WBC 9.05 X 10*3/uL (4.50-10.00)
== END | disposition home or self-care (01) ==
LOC: LABPAT 11:42
PROVIDERS: ATTEND Obstetrics & Gynecology
DX: Z01.812 Encounter for preprocedural laboratory examination (principal); N95.0 Postmenopausal bleeding
CPT/HCPCS: 85025

== ENCOUNTER 2022-02-14 15:14 | Inpatient (IN) | payer MEDICARE ==
[2022-02-14] MEDS ORDERED: SODIUM CHLORIDE 0.9% 1,000 ML IV STA (20:11)
[2022-02-14] MEDS ORDERED: ONDANSETRON 4 MG/2 ML VIAL IVP STA (20:11)
[2022-02-14 21:09] LABS: Basophils % (A) 1 %; Eosinophils # (A) 0.1 k/uL (0-0.7); Eosinophils % (A) 1 %; HCT 35.4 % (34.0-46.0); HGB 11.7 gm/dL (11.4-16.0); Hypochromasia Slight; Lymphocytes # (A) 1.4 k/uL (1.0-4.8); Lymphocytes % (A) 18 %; MCH 27.8 pg (25.0-35.0); MCHC 33.2 g/dL (31.0-37.0); MCV 83.7 fL (80.0-100.0); Mean Platelet Volume 8.4; Monocytes # (A) 0.6 k/uL (0-1.0); Monocytes % (A) 7 %; Neutrophils # (A) 5.7 k/uL (1.3-7.7); Neutrophils % (A) 72 %; Platelet Count 317 k/uL (150-450); RBC 4.23 m/uL (3.80-5.40); RDW 13.7 % (11.5-15.5); WBC 7.9 k/uL (3.8-10.6)
[2022-02-14] MEDS ORDERED: methylPREDNISolone SOD SUCCI 125 MG/2 ML VIAL IV STA (21:12)
[2022-02-14] MEDS ORDERED: FAMOTIDINE 20 MG/2 ML VIAL IV STA (21:12)
--- NOTE | 2022-02-14 21:15 | XR ---
EXAMINATION TYPE: XR chest 2V DATE OF EXAM: 02/14/2022 COMPARISON: 01/09/2022 HISTORY: Short of breath TECHNIQUE: 2 views FINDINGS: There is widening of the mediastinum. There is airspace infiltrate in the left lower lobe. There is increased density at the right cardiac border that could be prominent fat pad. There is incr eased density of both pulmonary yvonne. IMPRESSION: Widening of the mediastinum and increased density at the pulmonary yvonne. Extensive infilt rate left lower lobe. Follow-up recommended. CT scan recommended for further evaluation.
[2022-02-14 21:25] LABS: Albumin 4.8 g/dL (3.5-5.0); Calcium 9.5 mg/dL (8.4-10.2); Magnesium 1.9 mg/dL (1.6-2.3); Total Bilirubin 0.6 mg/dL (0.2-1.3); Total Protein 8.3 g/dL (6.3-8.2)
[2022-02-14] MEDS ORDERED: LORazepam 2 MG/ML INJ IV STA (22:47)
[2022-02-14] MEDS ORDERED: PROCHLORPERAZINE INJ 10 MG/2 ML VIAL IVP STA (22:48)
--- NOTE | 2022-02-14 22:54 | ED ---
Nausea/Vomiting/Diarrhea HPI - General Chief complaint: Nausea/Vomiting/Diarrhea Stated complaint: COVID Time Seen by Provider: 02/14/22 20:03 Source: patient Mode of arrival: EMS Limitations: no limitations - History of Present Illness Initial comments: Patient is a 56-year-old female with a past medical history of hypertension, congestive heart failure, chronic kidney disease stage III, diabetes mellitus, Graves' disease, deep vein thrombosis, leukemia, recent diagnosis of uterine cancer who presents to the emergency department with a chief complaint of nausea, vomiting, and diarrhea. She states she tested positive for COVID-19 home on . States for the past few days she has had consistent vomiting and diarrhea, inability to tolerate oral intake. She denies blood in the vomit and diarrhea. Describes the diarrhea as watery. Denies history of C. diff however does admit to recent Augmentin use for upper respiratory infection. Als o reports generalized abdominal pain. Denies fever and chills. Reports shortness of breath. Denies chest pain, lightheadedness, dizziness, palpitations. Patient overall does not feel well. She denies history of chemotherapy and radiation. States she has currently taking immunosuppressive therapy for leukemia. She was diagnosed with stage I uterine cancer by Dr. Bustamante this past January. States she was supposed to see a specialist in [place] for next steps however did not go due to feeling ill. Patient reports wearing 4 L nasal cannula supplemental oxygen at home however denies history of COPD. Denies drug use including IV drug use. Denies alcohol use - Related Data Home Medications Medication Instructions Recorded Confirmed FLUoxetine HCL [PROzac] 20 mg PO BID 01/09/17 01/21/22 Furosemide [Lasix] 20 mg PO BID 01/09/17 01/21/22 Gabapentin [Neurontin] 600 mg PO BID 01/09/17 01/21/22 Glimepiride [Amaryl] 4 mg PO BID 01/09/17 01/21/22 Hydroxychloroquine Sulfate 200 mg PO BID 01/09/17 01/21/22 [Plaquenil] Montelukast [Singulair] 10 mg PO DAILY 01/09/17 01/21/22 gemfibroziL [Lopid] 600 tab PO QAM 01/09/17 01/21/22 hydrOXYzine HCL [Atarax] 25 mg PO QID 01/09/17 01/21/22 Albuterol Inhaler [Ventolin Hfa 2 puff INHALATION RT-Q4H PRN 01/14/17 01/21/22 Inhaler] Albuterol Nebulized [Ventolin 2.5 mg INHALATION RT-QID 01/14/17 01/21/22 Nebulized] Famotidine [Pepcid] 20 mg PO BID 07/01/17 01/21/22 predniSONE 5 mg PO BID 07/01/17 01/21/22 Aspirin [Adult Low Dose Aspirin EC] 81 mg PO DAILY 01/21/22 01/21/22 allopurinoL [Zyloprim] 100 mg PO BID 01/21/22 01/21/22 Insulin Glargine,Hum.rec.anlog 0 units SQ DAILY 01/22/22 01/22/22 [Lantus Solostar Pen] Previous Rx's Medication Instructions Recorded Acetaminophen-Codeine 300-30mg 1 tab PO Q6H PRN #12 tablet 07/01/17 [Tylenol #3] Ondansetron Odt [Zofran Odt] 4 mg PO Q8HR PRN #12 tab 07/01/17 Allergies Allergy/AdvReac Type Severity Reaction Status Date / Time acetaminophen Allergy Swelling Verified 02/14/22 15:30 [From Darvocet-N] ciprofloxacin [From Cipro] Allergy Swelling Verified 02/14/22 15:30 diphenhydramine Allergy Swelling Verified 02/14/22 15:30 [From Benadryl] iodine Allergy Swelling Verified 02/14/22 15:30 propoxyphene Allergy Swelling Verified 02/14/22 15:30 [From Darvocet-N] red dye Allergy Swelling Verified 02/14/22 15:30 sulfacetamide Allergy Swelling Verified 02/14/22 15:30 [From Sulfamide] yellow dye Allergy Swelling Verified 02/14/22 15:30 FLU VACCINE? Allergy Unknown Uncoded 01/22/22 08:58 Review of Systems ROS Statement: Those systems with pertinent positive or pertinent negative responses have been documented in the HPI. ROS Other: All systems not noted in ROS Statement are negative. Past Medical History Past Medical History: Cancer, Diabetes Mellitus, Deep Vein Thrombosis (DVT), Hypertension, Renal Disease, Rheumatoid Arthritis (RA), Thyroid Disorder Additional Past Medical History / Comment(s): O2 @ 4L. SLE LUPUS. STAGE 3 KIDNEY DISEASE. Leukemia, GRAVES DZ , kidney stones, gout, ovarian cancer History of Any Multi-Drug Resistant Organisms: None Reported Past Surgical History: No Surgical Hx Reported Additional Past Surgical History / Comment(s): BILATERAL ARTHROSCOPY KNEES. D & C (MISCARRIAGES). Past Anesthesia/Blood Transfusion Reactions: No Reported Reaction Past Psychological History: No Psychological Hx Reported, Anxiety Smoking Status: Never smoker Past Alcohol Use History: None Reported Past Drug Use History: None Reported - Past Family History Mother Family Medical History: Congestive Heart Failure (CHF), Diabetes Mellitus Father Family Medical History: Congestive Heart Failure (CHF), Dialysis, Hypertension General Exam Limitations: no limitations General appearance: alert (patient crying which she states is due to nausea), in no apparent distress Head exam: Present: atraumatic, normocephalic, normal inspection Respiratory exam: Present: normal lung sounds bilaterally. Absent: respiratory distress, wheezes, rales, rhonchi, stridor Cardiovascular Exam: Present: normal rhythm, tachycardia, normal heart sounds, systolic murmur. Absent: regular rate, rubs, gallop, clicks GI/Abdominal exam: Present: soft, tenderness (periumblicial), normal bowel sounds. Absent: distended, guarding, rebound, rigid Neurological exam: Present: alert, oriented X3, CN II-XII intact Psychiatric exam: Present: normal affect, anxious. Absent: normal mood Skin exam: Present: warm, dry, intact, normal color. Absent: rash Course Vital Signs 02/14/22 02/14/22 15:25 23:29 Temperature 99.0 F Pulse Rate 121 H 86 Respiratory 18 16 Rate Blood Pressure 144/77 138/79 O2 Sat by Pulse 99 97 Oximetry Medical Decision Making - Medical Decision Making This is a 56-year-old female presenting with nausea, vomiting, diarrhea, SOB. Patient appears very anxious to evaluation and shaking which she states is due to nausea. Afebrile. Mildly tachycardic at 121. No hypoxia. Patient on room air, not requiring supplemental oxygen. No signs of respiratory distress or increased work of breathing. No abnormal lung sounds appreciated. Laboratory studies obtained. Creatinine at 2.55, consistent with patient's chronic kidney disease. BNP is 641. COVID-19 is detected. Other laboratory studies are relatively unremarkable. Chest x-ray was obtained and reviewed by me shows widening of the mediastinum and increased density at the pulmonary yvonne. There is extensive infiltrate of the left lower lobe. Follow-up CT recommended. CT of the chest without contrast shows bilateral patchy multifocal pulmonary airspace infiltrates with septic emboli. CT of the abdomen and pelvis without contrast obtained and shows no acute abnormality. Patient given zofran for nausea. She did not have further episodes of vomiting in the emergency department however continued to feel nauseous. Compazine given which controlled nausea. Azithomycin and Rocephin given. Blood cultures and stool culture pending. Case discussed with Fabienne Fortune who accepts admission. Pulmonology and infectious disease and consult. Echo ordered. Patient admitted in stable condition. Dr. Vaca is my attending. - Lab Data Result diagrams: 02/14/22 20:55 02/14/22 20:55 Lab Results 02/14/22 02/14/22 02/14/22 Range/Units 20:55 20:55 20:55 WBC 7.9 (3.8-10.6) k/uL RBC 4.23 (3.80-5.40) m/uL Hgb 11.7 (11.4-16.0) gm/dL Hct 35.4 (34.0-46.0) % MCV 83.7 (80.0-100.0) fL MCH 27.8 (25.0-35.0) pg MCHC 33.2 (31.0-37.0) g/dL RDW 13.7 (11.5-15.5) % Plt Count 317 (150-450) k/uL MPV 8.4 Neutrophils % 72 % Lymphocytes % 18 % Monocytes % 7 % Eosinophils % 1 % Basophils % 1 % Neutrophils # 5.7 (1.3-7.7) k/uL Lymphocytes # 1.4 (1.0-4.8) k/uL Monocytes # 0.6 (0-1.0) k/uL Eosinophils # 0.1 (0-0.7) k/uL Basophils # 0.0 (0-0.2) k/uL Hypochromasia Slight Sodium (137-145) mmol/L Potassium (3.5-5.1) mmol/L Chloride (98-107) mmol/L Carbon Dioxide (22-30) mmol/L Anion Gap mmol/L BUN (7-17) mg/dL Creatinine (0.52-1.04) mg/dL Est GFR (CKD-EPI)AfAm (>60 ml/min/1.73 sqM) Est GFR (CKD-EPI)NonAf (>60 ml/min/1.73 sqM) Glucose (74-99) mg/dL Calcium (8.4-10.2) mg/dL Magnesium (1.6-2.3) mg/dL Total Bilirubin (0.2-1.3) mg/dL AST (14-36) U/L ALT (4-34) U/L Alkaline Phosphatase (38-126) U/L NT-Pro-B Natriuret Pep pg/mL Total Protein (6.3-8.2) g/dL Albumin (3.5-5.0) g/dL Lipase (23-300) U/L Coronavirus (PCR) Detected A (Not Detectd) Influenza Type A RNA Not Detected (Not Detectd) Influenza Type B (PCR) Not Detected (Not Detectd) 02/14/22 02/14/22 Range/Units 20:55 20:55 WBC (3.8-10.6) k/uL RBC (3.80-5.40) m/uL Hgb (11.4-16.0) gm/dL Hct (34.0-46.0) % MCV (80.0-100.0) fL MCH (25.0-35.0) pg MCHC (31.0-37.0) g/dL RDW (11.5-15.5) % Plt Count (150-450) k/uL MPV Neutrophils % % Lymphocytes % % Monocytes % % Eosinophils % % Basophils % % Neutrophils # (1.3-7.7) k/uL Lymphocytes # (1.0-4.8) k/uL Monocytes # (0-1.0) k/uL Eosinophils # (0-0.7) k/uL Basophils # (0-0.2) k/uL Hypochromasia Sodium 145 (137-145) mmol/L Potassium 4.0 (3.5-5.1) mmol/L Chloride 105 (98-107) mmol/L Carbon Dioxide 17 L (22-30) mmol/L Anion Gap 23 mmol/L BUN 50 H (7-17) mg/dL Creatinine 2.55 H (0.52-1.04) mg/dL Est GFR (CKD-EPI)AfAm 24 (>60 ml/min/1.73 sqM) Est GFR (CKD-EPI)NonAf 21 (>60 ml/min/1.73 sqM) Glucose 164 H (74-99) mg/dL Calcium 9.5 (8.4-10.2) mg/dL Magnesium 1.9 (1.6-2.3) mg/dL Total Bilirubin 0.6 (0.2-1.3) mg/dL AST 38 H (14-36) U/L ALT 22 (4-34) U/L Alkaline Phosphatase 181 H (38-126) U/L NT-Pro-B Natriuret Pep 641 pg/mL Total Protein 8.3 H (6.3-8.2) g/dL Albumin 4.8 (3.5-5.0) g/dL Lipase 196 (23-300) U/L Coronavirus (PCR) (Not Detectd) Influenza Type A RNA (Not Detectd) Influenza Type B (PCR) (Not Detectd) - EKG Data EKG Comments: EKG taken at 15:31 Sinus tachycardia, right axis deviation, low QRS voltage in precordial leads, pattern consistent with pulmonary disease Ventricular rate 113 WV interval 162 QRS duration 90 QTc 417 Disposition Clinical Impression: COVID-19, Bilateral pneumonia, Septic embolism, Shortness of breath, Nausea & vomiting, Diarrhea Disposition: ADMITTED IP TO THIS HOSP Condition: Fair Referrals: Fela Alicea MD [Primary Care Provider] - 1-2 days Decision Time: 00:01
[2022-02-14] MEDS ORDERED: AZITHROMYCIN 500 MG in SODIUM CHLORIDE 0.9% 250 ML IVPB STA (23:03)
--- NOTE | 2022-02-14 23:18 | CT ---
EXAMINATION TYPE: CT ChestAbdPelvis wo con DATE OF EXAM: 02/14/2022 COMPARISON: Abdomen CT scan 12/22/2021 HISTORY: Umbilical pain CT DLP: 4268.8 mGycm Automated exposure control for dose reduction was used. Images obtained from the thoracic inlet to the floor the pelvis with no contrast. There is patchy areas of airspace infiltrate in both lungs. These measure up to 2.5 cm. No pleural ef fusion. Heart size is normal. No pericardial effusion. There are multiple calcified gallstones. Gallbladder is contracted. Liver is intact. Spleen is intact . There is no evidence of pancreatic mass. The stomach is intact. There is no adrenal mass. Kidneys have normal size. No hydronephrosis. Ureters are not dilated. No re troperitoneal adenopathy. There is no inguinal hernia. Bladder distends smoothly. Uterus is bulky and anteverted. There is likely a 4 cm posterior uterine fibroid. The thoracic and lumbar vertebra. Tach . No compression fracture. The bony pelvis is intact. Hip joints are intact. There is no mesenteric edema. No ascites or free air. No sign of a bowel obstruction. IMPRESSION: Cholelithiasis. Fibroid uterus. No acute abnormality in the abdomen pelvis. Bilateral patchy multifocal pulmonary airspace infiltrates. The possibility of septic emboli should b e considered. Pulmonary infiltrates appear new compared to CT scan of 12/22/2021.
[2022-02-14] MEDS ORDERED: NALOXONE 0.4 MG/ML 1 ML VIAL IV PRN (23:43)
--- NOTE | 2022-02-15 09:20 | CA ---
Transthoracic Echo Report Name: Tamela Diaz Age: 56 Gender: F : 1965 Exam Date: 02/15/2022 08:00 Exam Location: [facility] Ht (in): 66 Wt (lb): 215 Ordering Physician: Ivett Shaw Attending/Referring Phys: Recep Kavita Rosario RDCS Procedure CPT: Indications: septic emboli Cardiac Hx: limited study Technical Quality: Technically difficult study Contrast 1: Total Dose (mL): Contrast 2: Total Dose (mL): MEASUREMENTS (Male / Female) Normal Values 2D ECHO LV Diastolic Diameter PLAX 4.9 cm 4.2 - 5.9 / 3.9 - 5.3 cm LV Systolic Diameter PLAX 3.4 cm IVS Diastolic Thickness 1.5 cm 0.6 - 1.0 / 0.6 - 0.9 cm LVPW Diastolic Thickness 1.6 cm 0.6 - 1.0 / 0.6 - 0.9 cm LV Relative Wall Thickness 0.6 RV Internal Dim ED PLAX 3.4 cm LA Systolic Diameter LX 3.9 cm 3.0 - 4.0 / 2.7 - 3.8 cm M-MODE Aortic Root Diameter MM 3.2 cm MV E Point Septal Separation 1.2 cm AV Cusp Separation MM 2.2 cm DOPPLER AV Peak Velocity 132.9 cm/s AV Peak Gradient 7.1 mmHg FINDINGS Left Ventricle Left ventricular ejection fraction is estimated at 55-60 %. Left ventricular cavity size normal. Moderate concentric left ventricular hypertrophy. Right Ventricle Mild right ventricular dilatation. Unable to estimate the right ventricular systolic pressure no TR jet Right Atrium Right atrium not well visualized. Left Atrium Normal left atrial size. Mitral Valve Structurally normal mitral valve. No mitral stenosis, regurgitation or prolapse. Aortic Valve Trileaflet aortic valve. No aortic valve stenosis or regurgitation. Tricuspid Valve Tricuspid valve not well visualized. Pulmonic Valve Pulmonic valve not well visualized. Pericardium Normal pericardium. No pericardial effusion. Aorta Normal size aortic root and proximal ascending aorta. CONCLUSIONS Technically suboptimal and incomplete study due to poor echo windows LV function is normal In this patient with history of septic emboli we are not able to answer the question of whether there is infective endocarditis on this study Consider transesophageal echo Previewed by: Dr. Merritt Shields MD (Electronically Signed) Final Date: 15 February 2022 09:19
[2022-02-15 10:24] LABS: Appearance,Urine Cloudy (Clear); Bacteria,Urine Few /hpf; Bilirubin,Urine Negative (Negative); Blood,Urine Trace (Negative); Color,Urine Yellow; Glucose,Urine (UA) 4+ (Negative); Ketones,Urine Trace (Negative); Leukocyte Esterase,Urine Large (Negative); Mucus,Urine Few /hpf; Nitrite,Urine Positive (Negative); Protein,Urine 1+ (Negative); RBC,Urine 1 /hpf (0-5); Specific Gravity,Urine 1.013 (1.001-1.035); Squamous Epithelial Cell,Urine 2 /hpf (0-4); Urobilinogen,Urine <2.0 mg/dL (<2.0); WBC,Urine 29 /hpf (0-5)
[2022-02-15] MEDS ORDERED: NON FORMULARY DRUG (Albuterol Inhaler 90 MCG Puff) INHALATION PRN (12:26)
[2022-02-15] MEDS ORDERED: ONDANSETRON 4 MG TAB PO PRN (12:26)
[2022-02-15] MEDS ORDERED: FENOFIBRATE 160 MG TAB PO PRN (12:26)
[2022-02-15] MEDS ORDERED: ALBUTEROL NEBULIZED 2.5 MG/3 ML INHALATION PRN (12:26)
--- NOTE | 2022-02-15 12:37 | P.HPIM ---
History of Present Illness Patient is a pleasant 56-year-old female with multiple medical problems and recently diagnosed ovarian cancer for which patient haven't started on chemotherapy came in with complaints of generalized weakness and tiredness found to have COVID-19 patient was diagnosed with COVID-19 during abdomen weekend. Patient had a C. diff infection recently after using Augmentin. Patient the had a CT of the abdomen and pelvis which was read as possibly a septic emboli although it appears to be metastatic disease from the ovarian cancer is some nonspecific Infiltrates bilaterally but the no evidence of consolidation that is consistent with pneumonia. She doesn't have UTI symptoms but has mildly abnormal urine patient be N and creatinine are elevated creatinine is 2.55 baseline is around that. Patient takes Lasix at home patient doesn't have any evidence of for congestive heart failure at this time, no documented history of congestive heart failure no evidence of heart failure on the echocardiogram BNP is around 600, patient's serum bicarbonate is is low at 17 secondary to hyperchloremia. Obtaining pro-calcitonin level patient received 1 dose of Rocephin and azithromycin which she is not being continued at this time. Rosario hillman does have multiple other medical problems including peripheral neuropathy, SLE for which patient uses hydroxychloroquine. Patient denied any nausea vomiting diarrhea. Patient does use Lasix 80 mg daily at home. She does have obesity hypoventilation syndrome and sleep apnea for which patient uses oxygen at home patient is on 4 L of oxygen at baseline. REVIEW OF SYSTEMS: CONSTITUTIONAL: As mentioned in HPI HEENT: No recent visual problems or hearing problems. Denied any sore throat. CARDIOVASCULAR: No chest pain, orthopnea, PND, no palpitations, no syncope. PULMONARY: No shortness of breath, no cough, no hemoptysis. GASTROINTESTINAL: No diarrhea, no nausea, no vomiting, no abdominal pain. NEUROLOGICAL: No headaches, no weakness, no numbness. HEMATOLOGICAL: Denies any bleeding or petechiae. GENITOURINARY: Denies any burning micturition, frequency, or urgency. MUSCULOSKELETAL/RHEUMATOLOGICAL: Denies any joint pain, swelling, or any muscle pain. ENDOCRINE: Denies any polyuria or polydipsia. The rest of the 14-point review of systems is negative. PHYSICAL EXAMINATION: GENERAL: The patient is alert and oriented x3, not in any acute distress. Obese appears to be tired and weak HEENT: Pupils are round and equally reacting to light. EOMI. No scleral icterus. No conjunctival pallor. Normocephalic, atraumatic. No pharyngeal erythema. No thyromegaly. CARDIOVASCULAR: S1 and S2 present. No murmurs, rubs, or gallops. PULMONARY: Chest is clear to auscultation, no wheezing or crackles. ABDOMEN: Soft, nontender, nondistended, normoactive bowel sounds. No palpable organomegaly. MUSCULOSKELETAL: No joint swelling or deformity. EXTREMITIES: No cyanosis, clubbing, or pedal edema. NEUROLOGICAL: Gross neurological examination did not reveal any focal deficits. SKIN: No rashes. Assessment and plan -Malaise weakness tiredness: Secondary to COVID-19 there is no clinical evidence of pneumonia patient doesn't have any leukocytosis or fever pro-calcitonin will be ordered conservative supportive therapy -Elevated creatinine probably chronic kidney disease stage IV although there may be a competent of acute renal failure patient's creatinine is at her baseline patient's Lasix will be held and patient was started on gentle hydration but patient need to be closely monitored for volume overload -Non-anion gap metabolic acidosis secondary to hyperchloremia -Obesity hypoventilation syndrome, sleep apnea -History of SLE for which patient is on plaque will -Recently diagnosed history of ovarian cancer for which patient was started on chemotherapy yet -Peripheral neuropathy for which patient is on gabapentin dose of which need to be decreased because of poor renal function -Type 2 diabetes mellitus chemo brain will be held patient will be on sliding scale insulin History of DVT for which patient is presently off anticoagulation -Hypertension -Hypothyroidism DVT prophylaxis: Lovenox Past Medical History Past Medical History: Cancer, Diabetes Mellitus, Deep Vein Thrombosis (DVT), Hypertension, Renal Disease, Rheumatoid Arthritis (RA), Thyroid Disorder Additional Past Medical History / Comment(s): O2 @ 4L. SLE LUPUS. STAGE 3 KIDNEY DISEASE. Leukemia, GRAVES DZ , kidney stones, gout, ovarian cancer History of Any Multi-Drug Resistant Organisms: None Reported Past Surgical History: No Surgical Hx Reported Additional Past Surgical History / Comment(s): BILATERAL ARTHROSCOPY KNEES. D & C (MISCARRIAGES). Past Anesthesia/Blood Transfusion Reactions: No Reported Reaction Past Psychological History: No Psychological Hx Reported, Anxiety Smoking Status: Never smoker Past Alcohol Use History: None Reported Past Drug Use History: None Reported - Past Family History Mother Family Medical History: Congestive Heart Failure (CHF), Diabetes Mellitus Father Family Medical History: Congestive Heart Failure (CHF), Dialysis, Hypertension Medications and Allergies Home Medications Medication Instructions Recorded Confirmed Type FLUoxetine HCL [PROzac] 20 mg PO BID 01/09/17 02/15/22 History Gabapentin [Neurontin] 600 mg PO BID 01/09/17 02/15/22 History Glimepiride [Amaryl] 4 mg PO BID 01/09/17 02/15/22 History Hydroxychloroquine Sulfate 200 mg PO BID 01/09/17 02/15/22 History [Plaquenil] Montelukast [Singulair] 10 mg PO DAILY 01/09/17 02/15/22 History gemfibroziL [Lopid] 600 tab PO BID 01/09/17 02/15/22 History hydrOXYzine HCL [Atarax] 25 mg PO QID 01/09/17 02/15/22 History Albuterol Inhaler [Ventolin Hfa 2 puff INHALATION RT-Q4H PRN 01/14/17 02/15/22 History Inhaler] Albuterol Nebulized [Ventolin 2.5 mg INHALATION RT-QID PRN 01/14/17 02/15/22 History Nebulized] allopurinoL [Zyloprim] 100 mg PO BID 01/21/22 02/15/22 History Aspirin EC [Ecotrin] 325 mg PO DAILY 02/15/22 02/15/22 History Atorvastatin [Lipitor] 10 mg PO HS 02/15/22 02/15/22 History Furosemide [Lasix] 80 mg PO DAILY 02/15/22 02/15/22 History Metoprolol Succinate (ER) [Toprol 25 mg PO DAILY 02/15/22 02/15/22 History Xl] Metoprolol Succinate (ER) [Toprol 50 mg PO DAILY 02/15/22 02/15/22 History Xl] Ondansetron [Zofran] 4 mg PO Q12HR PRN 02/15/22 02/15/22 History Pantoprazole [Protonix] 40 mg PO BID 02/15/22 02/15/22 History Primidone [Mysoline] 50 mg PO HS 02/15/22 02/15/22 History predniSONE 10 mg PO DAILY 02/15/22 02/15/22 History Allergies Allergy/AdvReac Type Severity Reaction Status Date / Time ciprofloxacin [From Cipro] Allergy Swelling Verified 02/15/22 08:24 diphenhydramine Allergy Swelling Verified 02/15/22 08:24 [From Benadryl] iodine Allergy Swelling Verified 02/15/22 08:24 propoxyphene Allergy Swelling Verified 02/15/22 08:24 [From Darvocet-N] red dye Allergy Swelling Verified 02/15/22 08:24 sulfacetamide Allergy Swelling Verified 02/15/22 08:24 [From Sulfamide] yellow dye Allergy Swelling Verified 02/15/22 08:24 FLU VACCINE? Allergy Unknown Uncoded 02/15/22 08:24 Physical Exam Vitals: Vital Signs Temp Pulse Resp BP Pulse Ox 02/15/22 06:49 68 12 165/88 98 02/14/22 23:29 86 16 138/79 97 02/14/22 15:25 99.0 F 121 H 18 144/77 99 Intake and Output 02/14/22 02/15/22 02/15/22 22:59 06:59 14:59 Other: Weight 142.882 kg Results CBC & Chem 7: 02/14/22 20:55 02/14/22 20:55 Labs: Abnormal Lab Results - Last 24 Hours (Table) 02/14/22 02/14/22 02/14/22 Range/Units 09:58 20:55 20:55 Carbon Dioxide 17 L (22-30) mmol/L BUN 50 H (7-17) mg/dL Creatinine 2.55 H (0.52-1.04) mg/dL Glucose 164 H (74-99) mg/dL AST 38 H (14-36) U/L Alkaline Phosphatase 181 H (38-126) U/L Total Protein 8.3 H (6.3-8.2) g/dL Urine Appearance Cloudy H (Clear) Urine Protein 1+ H (Negative) Urine Glucose (UA) 4+ H (Negative) Urine Ketones Trace H (Negative) Urine Blood Trace H (Negative) Urine Nitrite Positive H (Negative) Ur Leukocyte Esterase Large H (Negative) Urine WBC 29 H (0-5) /hpf Urine Bacteria Few H (None) /hpf Urine Mucus Few H (None) /hpf Coronavirus (PCR) Detected A (Not Detectd)
--- NOTE | 2022-02-15 13:05 | P.CNPUL ---
History of Present Illness Consult date: 02/15/22 Requesting physician: Isabela Shelley Reason for consult: other Chief complaint: Nausea, vomiting, diarrhea. History of present illness: Pulmonary consult dated 02/15/2022. 56-year-old female seen in the emergency room, room 17. She presented initially on February 14, complaining of nausea, vomiting, and diarrhea. She has a history of hypertension, heart failure, stage III chronic kidney disease, diabetes, Graves' disease, DVT, uterine cancer, and severe asthma. She sees my partner, for her asthma. She apparently tested positive for coronavirus on February 11. Since that time, she is complaining of weakness, and ongoing nausea, vomiting, and diarrhea. She also complains of some abdominal cramping, as well as some mild shortness of breath. No chest pain. No fever or chills. No genitourinary complaints. She was recent diagnosis having stage I uterine cancer, by Dr. aMry Bustamante. Currently, the patient is on 4 L of oxygen here in the ICU, which is what she uses at home. She is on vaccinated. She's not receiving any IV fluids. White count 7.9, hemoglobin 11.7, hematocrit 35.4, and platelet count 317,000. Sodium 145, potassium 4, chlorides 105, CO2 17, anion gap 23, BUN 50, and creatinine 2.55. His electrolytes are consistent with an anion gap metabolic acidosis. I do not know what her baseline he went and creatinine are but I suspect, these are higher. AST 38, N-terminal proBNP 641. Urine is yellow and cloudy, with 4+ glucose and trace ketones. Nitrite was positive, and leukocyte esterase was large positive. She was 29 WBCs, and few bacteria in her urine. Repeat coronavirus testing, was positive. Chest x-ray apparently shows an extensive infiltrate in the left lower lobe. I cannot pull up the x-rays myself. Computed tomography scan of the chest reveals bilateral patchy multifocal pulmonary infiltrates. These infiltrates are new compared to a CAT scan done on December 22 of this year. Review of Systems REVIEW OF SYSTEMS: CONSTITUTIONAL: Weakness and fatigue NEUROLOGIC: [ Negative.] HEENT: [ Negative.] CARDIAC: [Negative.] PULMONARY: Minimal/mild shortness of breath. GI: Abdominal cramping, nausea, vomiting, and diarrhea. : [Negative.] RHEUMATOLOGIC: [ Negative.] IMMUNOLOGIC: [ Negative.] ENDOCRINE: [Negative. ] DERMATOLOGIC: [Negative.] Past Medical History Past Medical History: Cancer, Diabetes Mellitus, Deep Vein Thrombosis (DVT), Hypertension, Renal Disease, Rheumatoid Arthritis (RA), Thyroid Disorder Additional Past Medical History / Comment(s): O2 @ 4L. SLE LUPUS. STAGE 3 KIDNEY DISEASE. Leukemia, GRAVES DZ , kidney stones, gout, ovarian cancer History of Any Multi-Drug Resistant Organisms: None Reported Past Surgical History: No Surgical Hx Reported Additional Past Surgical History / Comment(s): BILATERAL ARTHROSCOPY KNEES. D & C (MISCARRIAGES). Past Anesthesia/Blood Transfusion Reactions: No Reported Reaction Past Psychological History: No Psychological Hx Reported, Anxiety Smoking Status: Never smoker Past Alcohol Use History: None Reported Past Drug Use History: None Reported - Past Family History Mother Family Medical History: Congestive Heart Failure (CHF), Diabetes Mellitus Father Family Medical History: Congestive Heart Failure (CHF), Dialysis, Hypertension Medications and Allergies Home Medications Medication Instructions Recorded Confirmed Type FLUoxetine HCL [PROzac] 20 mg PO BID 01/09/17 02/15/22 History Gabapentin [Neurontin] 600 mg PO BID 01/09/17 02/15/22 History Glimepiride [Amaryl] 4 mg PO BID 01/09/17 02/15/22 History Hydroxychloroquine Sulfate 200 mg PO BID 01/09/17 02/15/22 History [Plaquenil] Montelukast [Singulair] 10 mg PO DAILY 01/09/17 02/15/22 History gemfibroziL [Lopid] 600 tab PO BID 01/09/17 02/15/22 History hydrOXYzine HCL [Atarax] 25 mg PO QID 01/09/17 02/15/22 History Albuterol Inhaler [Ventolin Hfa 2 puff INHALATION RT-Q4H PRN 01/14/17 02/15/22 History Inhaler] Albuterol Nebulized [Ventolin 2.5 mg INHALATION RT-QID PRN 01/14/17 02/15/22 History Nebulized] allopurinoL [Zyloprim] 100 mg PO BID 01/21/22 02/15/22 History Aspirin EC [Ecotrin] 325 mg PO DAILY 02/15/22 02/15/22 History Atorvastatin [Lipitor] 10 mg PO HS 02/15/22 02/15/22 History Furosemide [Lasix] 80 mg PO DAILY 02/15/22 02/15/22 History Metoprolol Succinate (ER) [Toprol 25 mg PO DAILY 02/15/22 02/15/22 History Xl] Metoprolol Succinate (ER) [Toprol 50 mg PO DAILY 02/15/22 02/15/22 History Xl] Ondansetron [Zofran] 4 mg PO Q12HR PRN 02/15/22 02/15/22 History Pantoprazole [Protonix] 40 mg PO BID 02/15/22 02/15/22 History Primidone [Mysoline] 50 mg PO HS 02/15/22 02/15/22 History predniSONE 10 mg PO DAILY 02/15/22 02/15/22 History Allergies Allergy/AdvReac Type Severity Reaction Status Date / Time ciprofloxacin [From Cipro] Allergy Swelling Verified 02/15/22 08:24 diphenhydramine Allergy Swelling Verified 02/15/22 08:24 [From Benadryl] iodine Allergy Swelling Verified 02/15/22 08:24 propoxyphene Allergy Swelling Verified 02/15/22 08:24 [From Darvocet-N] red dye Allergy Swelling Verified 02/15/22 08:24 sulfacetamide Allergy Swelling Verified 02/15/22 08:24 [From Sulfamide] yellow dye Allergy Swelling Verified 02/15/22 08:24 FLU VACCINE? Allergy Unknown Uncoded 02/15/22 08:24 Physical Exam Osteopathic Statement: *. No significant issues noted on an osteopathic structural exam other than those noted in the History and Physical/Consult. Vitals: Vital Signs Temp Pulse Resp BP Pulse Ox 02/15/22 06:49 68 12 165/88 98 02/14/22 23:29 86 16 138/79 97 02/14/22 15:25 99.0 F 121 H 18 144/77 99 Intake and Output 02/14/22 02/15/22 02/15/22 22:59 06:59 14:59 Other: Weight 142.882 kg No acute distress, oriented 3. Currently on 4 L. No audible wheezing, use of accessory muscles, or conversational dyspnea HEENT examination is grossly unremarkable. Neck supple. Full range of motion. No adenopathy thyromegaly or neck vein dis tention. Cardiovascular examination reveals regular rhythm rate. S1-S2 normal. No S3 or S4. No discernible murmur noted. Heart rate 68 bpm. Lungs reveal minimal scattered rhonchi. No wheezes. No crackles. Breath sounds equal bilaterally. 4 L saturation is 98%. Abdomen soft bowel sounds are heard. No masses or tenderness. Extremities are intact. No cyanosis clubbing or edema. Skin is without rash or lesion. Neurologic examination is brief but nonfocal. Results - Laboratory Findings CBC and BMP: 02/14/22 20:55 02/14/22 20:55 Abnormal lab findings: Abnormal Labs 02/14/22 02/14/22 02/14/22 09:58 20:55 20:55 Carbon Dioxide 17 L BUN 50 H Creatinine 2.55 H Glucose 164 H AST 38 H Alkaline Phosphatase 181 H Total Protein 8.3 H Urine Appearance Cloudy H Urine Protein 1+ H Urine Glucose (UA) 4+ H Urine Ketones Trace H Urine Blood Trace H Urine Nitrite Positive H Ur Leukocyte Esterase Large H Urine WBC 29 H Urine Bacteria Few H Urine Mucus Few H Coronavirus (PCR) Detected A - Diagnostic Findings Chest x-ray: image reviewed CT scan - chest: image reviewed Assessment and Plan Assessment: Acute coronavirus infection, manifesting primarily with GI issues such as abdominal pain, nausea, vomiting, and diarrhea. Dehydration, and acute kidney injury, secondary to coronavirus infection. Possible coronavirus associated pneumonia, although, the patient is not really manifesting much in the way pulmonary issues. History of severe asthma/COPD. Chronic hypoxemic respiratory failure, on home O2 at 4 L. Recent diagnosis of stage I uterine cancer. History of hypertension. History of congestive heart failure. History of stage III chronic kidney disease. History of diabetes mellitus. History of Graves' disease. History of deep venous thrombosis. History of leukemia. Plan: Plan dated 02/15/2022. The patient has been placed on albuterol inhaler, and Singulair. I will add some Decadron, 6 mg a day. She received a dose of azithromycin and Rocephin in the emergency department. She should be placed on vitamins. I will check a pro-calcitonin level. The patient is ready on Lovenox 40 mg subcu twice a day. She is also receiving aspirin 325 mg a day. Additional recommendations and suggestions are forthcoming. Prognosis is guarded. Time with Patient: Greater than 30
[2022-02-15] MEDS: SODIUM CHLORIDE 0.9% 1,000 ML IV SCH (13:50)
[2022-02-15] MEDS: ALBUTEROL HFA INHALER INHALATION PRN ×2 (15:35→21:38)
[2022-02-15] MEDS: PANTOPRAZOLE 40 MG TABLET PO SCH (17:00)
[2022-02-15] MEDS: ACETAMINOPHEN TAB 325 MG TAB PO PRN (20:58)
[2022-02-15] MEDS: ATORVASTATIN 10 MG TAB PO SCH (20:58)
[2022-02-15] MEDS: PRIMIDONE 50 MG TAB PO SCH (20:58)
[2022-02-15] MEDS: HYDROXYCHLOROQUINE SULFATE 200 MG TAB PO SCH (20:58)
[2022-02-15] MEDS: GABAPENTIN 300 MG CAP PO SCH (20:58)
[2022-02-15] MEDS: FLUoxetine HCL 20 MG CAP PO SCH (20:59)
[2022-02-15] MEDS: ENOXAPARIN 40 MG/0.4 ML SYRINGE SQ SCH (20:59)
[2022-02-15] MEDS: SYMBICORT 160-4.5 MCG INHALER INHALATION SCH (21:38)
[2022-02-16] MEDS: SYMBICORT 160-4.5 MCG INHALER INHALATION SCH ×2 (08:49→20:59)
[2022-02-16] MEDS ORDERED: METOPROLOL SUCCINATE (ER) 50 MG TAB.ER.24H PO SCH (09:00)
[2022-02-16] MEDS: PANTOPRAZOLE 40 MG TABLET PO SCH ×2 (10:12→17:51)
[2022-02-16] MEDS: MONTELUKAST 10 MG TAB PO SCH (10:22)
[2022-02-16] MEDS: FLUoxetine HCL 20 MG CAP PO SCH ×2 (10:22→20:18)
[2022-02-16] MEDS: ENOXAPARIN 40 MG/0.4 ML SYRINGE SQ SCH ×2 (10:22→20:18)
[2022-02-16] MEDS: GABAPENTIN 300 MG CAP PO SCH ×2 (10:22→20:18)
[2022-02-16] MEDS: METOPROLOL SUCCINATE (ER) 25 MG TAB.ER.24H PO SCH (10:22)
[2022-02-16] MEDS: allopurinoL 100 MG TAB PO SCH (10:22)
[2022-02-16] MEDS: ASPIRIN 325 MG TAB PO SCH (10:22)
[2022-02-16] MEDS: DEXAMETHASONE SOD PHOSPHATE 10 MG/ML 1 ML VIAL IVP SCH ×2 (10:23→15:49)
[2022-02-16] MEDS: HYDROXYCHLOROQUINE SULFATE 200 MG TAB PO SCH ×2 (10:23→20:18)
--- NOTE | 2022-02-16 11:04 | P.PN ---
Subjective Progress Note Date: 02/16/22 Principal diagnosis: Coronavirus infection. Pulmonary consult dated 02/15/2022. 56-year-old female seen in the emergency room, room 17. She presented initially on February 14, complaining of nausea, vomiting, and diarrhea. She has a history of hypertension, heart failure, stage III chronic kidney disease, diabetes, Graves' disease, DVT, uterine cancer, and severe asthma. She sees my partner, for her asthma. She apparently tested positive for coronavirus on February 11. Since that time, she is complaining of weakness, and ongoing nausea, vomiting, and diarrhea. She also complains of some abdominal cramping, as well as some mild shortness of breath. No chest pain. No fever or chills. No genitourinary complaints. She was recent diagnosis having stage I uterine cancer, by Dr. Mary Bustamante. Currently, the patient is on 4 L of oxygen here in the ICU, which is what she uses at home. She is on vaccinated. She's not receiving any IV fluids. White count 7.9, hemoglobin 11.7, hematocrit 35.4, and platelet count 317,000. Sodium 145, potassium 4, chlorides 105, CO2 17, anion gap 23, BUN 50, and creatinine 2.55. His electrolytes are consistent with an anion gap metabolic acidosis. I do not know what her baseline he went and creatinine are but I suspect, these are higher. AST 38, N-terminal proBNP 641. Urine is yellow and cloudy, with 4+ glucose and trace ketones. Nitrite was positive, and leukocyte esterase was large positive. She was 29 WBCs, and few bacteria in her urine. Repeat coronavirus testing, was positive. Chest x-ray apparently shows an extensive infiltrate in the left lower lobe. I cannot pull up the x-rays myself. Computed tomography scan of the chest reveals bilateral patchy multifocal pulmonary infiltrates. These infiltrates are new compared to a CAT scan done on December 22 of this year. Progress note dated 02/16/2022. The patient is seen in room 460. She was sleeping. She was in no distress. She's currently on 4 L of oxygen. She's getting saline at 75 mL an hour. The patient was initially seen in the emergency department. She came in primarily with nausea, vomiting, and diarrhea. She also had dehydration. She really wasn't complaining much about respiratory issues. No new labs today. Labs from February 14 are reviewed. Blood cultures are currently pending or negative. Urine cultures are negative are pending. Objective - Vital Signs Vital signs: Vital Signs Temp 97.5 F L 02/15/22 19:05 Pulse 76 02/15/22 19:05 Resp 17 02/15/22 19:05 BP 135/73 02/15/22 19:05 Pulse Ox 100 02/15/22 19:05 FiO2 Intake & Output 02/15/22 02/16/22 02/16/22 18:59 06:59 18:59 Weight 142.882 kg Other: Voiding Method Toilet # Voids 1 - Exam No acute distress, oriented 3. Currently on 4 L. No audible wheezing, use of accessory muscles, or conversational dyspnea HEENT examination is grossly unremarkable. Neck supple. Full range of motion. No adenopathy thyromegaly or neck vein distention. Cardiovascular examination reveals regular rhythm rate. S1-S2 normal. No S3 or S4. No discernible murmur noted. Heart rate 76 bpm. Lungs reveal minimal scattered rhonchi. No wheezes. No crackles. Breath sounds equal bilaterally. 4 L saturation is 100 %. Abdomen soft bowel sounds are heard. No masses or tenderness. Extremities are intact. No cyanosis clubbing or edema. Skin is without rash or lesion. Neurologic examination is brief but nonfocal. - Labs CBC & Chem 7: 02/14/22 20:55 02/14/22 20:55 Labs: Abnormal Lab Results - Last 24 Hours (Table) 02/14/22 Range/Units 20:55 Procalcitonin 0.15 H (0.02-0.09) ng/mL Microbiology - Last 24 Hours (Table) 02/14/22 23:45 Blood Culture - Preliminary Blood No Growth after 24 hours 02/14/22 23:45 Blood Culture - Preliminary Blood No Growth after 24 hours 02/14/22 09:58 Urine Culture - Preliminary Urine,Voided Assessment and Plan Assessment: Acute coronavirus infection, manifesting primarily with GI issues such as abdominal pain, nausea, vomiting, and diarrhea. Dehydration, and acute kidney injury, secondary to coronavirus infection. Possible coronavirus associated pneumonia, although, the patient is not really manifesting much in the way pulmonary issues. History of severe asthma/COPD. Chronic hypoxemic respiratory failure, on home O2 at 4 L. Recent diagnosis of stage I uterine cancer. History of hypertension. History of congestive heart failure. History of stage III chronic kidney disease. History of diabetes mellitus. History of Graves' disease. History of deep venous thrombosis. History of leukemia. Plan: Plan dated 02/15/2022. The patient has been placed on albuterol inhaler, and Singulair. I will add some Decadron, 6 mg a day. She received a dose of azithromycin and Rocephin in the emergency department. She should be placed on vitamins. I will check a pro-calcitonin level. The patient is ready on Lovenox 40 mg subcu twice a day. She is also receiving aspirin 325 mg a day. Additional recommendations and suggestions are forthcoming. Prognosis is guarded. Plan dated 02/16/2022. The patient appears stable. We placed her on some Decadron. She is also receiving an albuterol inhaler, as well as Symbicort. We will continue to follow make recommendations along the way. Respiratory status appears to be reasonably stable. Again, her primary issues were GI, with nausea vomiting diarrhea and dehydration. Labs, x-rays, and medications are reviewed. Prognosis is guarded. Time with Patient: Less than 30
[2022-02-16] MEDS: ALBUTEROL HFA INHALER INHALATION PRN ×3 (11:47→20:59)
[2022-02-16] MEDS: SODIUM CHLORIDE 0.9% 1,000 ML IV SCH ×2 (12:12→15:46)
--- NOTE | 2022-02-16 13:17 | P.CONS ---
History of Present Illness - Reason for Consult Consult date: 02/15/22 - History of Present Illness Patient is a 56-year-old female with a past medical history significant for hypertension diabetes mellitus chronic renal sufficiency heart failure and asthma patient apparently tested positive for COVID-19 on Halloween and has been managing her symptoms at home she is presenting to the ER now complaining of increasing weakness nausea vomiting and diarrhea and some abdominal cramping the patient also having shortness of breath however the patient denies having any chest pain or any purulent sputum, patient on presentation to the hospital was afebrile and no fever has been recorded subsequently patient is currently satting 100% 4 L no documentation of her O2 sats on room air on presentation to the hospital, the patient have normal white count with no lymphopenia or left shift patient did have elevated BUN/creatinine AST is mildly elevated urine is mildly positive patient did have a positive COVID test influenza testing was negative blood urine cultures obtained which are currently pending patient did have a chest x-ray finding of the metastatic and increased density at the pulmonary yvonne excess infiltrate left lower lobe patient also have a CT of the chest abdominal pelvis with diffuse bilateral patchy multifocal pulmonary infiltrate possibility of septic emboli should be considered patient has been admitted to hospital infectious disease was consulted concerning for possible significant bilateral pneumonia patient also have a echocardiogram technically suboptimal study LV function was normal did not mention any endocarditis on the study he is recommending JOSELITO Past Medical History Past Medical History: Cancer, Diabetes Mellitus, Deep Vein Thrombosis (DVT), Hypertension, Renal Disease, Rheumatoid Arthritis (RA), Thyroid Disorder Additional Past Medical History / Comment(s): O2 @ 4L. SLE LUPUS. STAGE 3 KIDNEY DISEASE. Leukemia, GRAVES DZ , kidney stones, gout, ovarian cancer History of Any Multi-Drug Resistant Organisms: None Reported Past Surgical History: No Surgical Hx Reported Additional Past Surgical History / Comment(s): BILATERAL ARTHROSCOPY KNEES. D & C (MISCARRIAGES). Past Anesthesia/Blood Transfusion Reactions: No Reported Reaction Past Psychological History: No Psychological Hx Reported, Anxiety Smoking Status: Never smoker Past Alcohol Use History: None Reported Past Drug Use History: None Reported - Past Family History Mother Family Medical History: Congestive Heart Failure (CHF), Diabetes Mellitus Father Family Medical History: Congestive Heart Failure (CHF), Dialysis, Hypertension Medications and Allergies Home Medications Medication Instructions Recorded Confirmed Type FLUoxetine HCL [PROzac] 20 mg PO BID 01/09/17 02/15/22 History Gabapentin [Neurontin] 600 mg PO BID 01/09/17 02/15/22 History Glimepiride [Amaryl] 4 mg PO BID 01/09/17 02/15/22 History Hydroxychloroquine Sulfate 200 mg PO BID 01/09/17 02/15/22 History [Plaquenil] Montelukast [Singulair] 10 mg PO DAILY 01/09/17 02/15/22 History gemfibroziL [Lopid] 600 tab PO BID 01/09/17 02/15/22 History hydrOXYzine HCL [Atarax] 25 mg PO QID 01/09/17 02/15/22 History Albuterol Inhaler [Ventolin Hfa 2 puff INHALATION RT-Q4H PRN 01/14/17 02/15/22 History Inhaler] Albuterol Nebulized [Ventolin 2.5 mg INHALATION RT-QID PRN 01/14/17 02/15/22 History Nebulized] allopurinoL [Zyloprim] 100 mg PO BID 01/21/22 02/15/22 History Aspirin EC [Ecotrin] 325 mg PO DAILY 02/15/22 02/15/22 History Atorvastatin [Lipitor] 10 mg PO HS 02/15/22 02/15/22 History Furosemide [Lasix] 80 mg PO DAILY 02/15/22 02/15/22 History Metoprolol Succinate (ER) [Toprol 25 mg PO DAILY 02/15/22 02/15/22 History Xl] Metoprolol Succinate (ER) [Toprol 50 mg PO DAILY 02/15/22 02/15/22 History Xl] Ondansetron [Zofran] 4 mg PO Q12HR PRN 02/15/22 02/15/22 History Pantoprazole [Protonix] 40 mg PO BID 02/15/22 02/15/22 History Primidone [Mysoline] 50 mg PO HS 02/15/22 02/15/22 History predniSONE 10 mg PO DAILY 02/15/22 02/15/22 History Allergies Allergy/AdvReac Type Severity Reaction Status Date / Time ciprofloxacin [From Cipro] Allergy Swelling Verified 02/15/22 08:24 diphenhydramine Allergy Swelling Verified 02/15/22 08:24 [From Benadryl] iodine Allergy Swelling Verified 02/15/22 08:24 propoxyphene Allergy Swelling Verified 02/15/22 08:24 [From Darvocet-N] red dye Allergy Swelling Verified 02/15/22 08:24 sulfacetamide Allergy Swelling Verified 02/15/22 08:24 [From Sulfamide] yellow dye Allergy Swelling Verified 02/15/22 08:24 FLU VACCINE? Allergy Unknown Uncoded 02/15/22 08:24 Physical Exam Vitals: Vital Signs Temp Pulse Resp BP Pulse Ox 02/15/22 13:50 76 18 145/74 99 02/15/22 06:49 68 12 165/88 98 02/14/22 23:29 86 16 138/79 97 02/14/22 15:25 99.0 F 121 H 18 144/77 99 Intake and Output 02/14/22 02/15/22 02/15/22 22:59 06:59 14:59 Other: Weight 142.882 kg Results CBC & Chem 7: 02/14/22 20:55 02/14/22 20:55 Labs: Abnormal Lab Results - Last 24 Hours (Table) 02/14/22 02/14/22 02/14/22 Range/Units 09:58 20:55 20:55 Carbon Dioxide 17 L (22-30) mmol/L BUN 50 H (7-17) mg/dL Creatinine 2.55 H (0.52-1.04) mg/dL Glucose 164 H (74-99) mg/dL AST 38 H (14-36) U/L Alkaline Phosphatase 181 H (38-126) U/L Total Protein 8.3 H (6.3-8.2) g/dL Urine Appearance Cloudy H (Clear) Urine Protein 1+ H (Negative) Urine Glucose (UA) 4+ H (Negative) Urine Ketones Trace H (Negative) Urine Blood Trace H (Negative) Urine Nitrite Positive H (Negative) Ur Leukocyte Esterase Large H (Negative) Urine WBC 29 H (0-5) /hpf Urine Bacteria Few H (None) /hpf Urine Mucus Few H (None) /hpf Coronavirus (PCR) Detected A (Not Detectd) Assessment and Plan Plan: 1patient presented to hospital with generalized weakness nausea vomiting and diarrhea in this patient who tested positive for COVID-19 on February 11, 2022 and apparently has slight worsening of her symptoms unfortunately O2 sats on room air but not documented she is currently 100% on room air and is not complaining of significant shortness of breath patient did not have any fever the pulmonary abdominal pneumonia likely due to her covid19 pneumonia clinically not behaving as a septic emboli's. 2blood culture has been obtained and Zosyn we will follow and will check inflammatory markers. 3patient to continue with the dexamethasone Lovenox and zinc and ascorbic acid. We will follow on clinical condition and cultures to further adjust medication if needed Thank you for this consultation will follow this patient along with you Time with Patient: Greater than 30
[2022-02-16] MEDS: ACETAMINOPHEN TAB 325 MG TAB PO PRN ×2 (15:49→23:00)
[2022-02-16] MEDS: PRIMIDONE 50 MG TAB PO SCH (20:18)
[2022-02-16] MEDS: ATORVASTATIN 10 MG TAB PO SCH (20:18)
--- NOTE | 2022-02-16 20:50 | P.PN ---
Subjective Progress Note Date: 02/16/22 Patient is a pleasant 56-year-old female with multiple medical problems and recently diagnosed ovarian cancer for which patient haven't started on chemotherapy came in with complaints of generalized weakness and tiredness found to have COVID-19 patient was diagnosed with COVID-19 during abdomen weekend. P naz had a C. diff infection recently after using Augmentin. Patient the had a CT of the abdomen and pelvis which was read as possibly a septic emboli although it appears to be metastatic disease from the ovarian cancer is some nonspecific Infiltrates bilaterally but the no evidence of consolidation that is consistent with pneumonia. She doesn't have UTI symptoms but has mildly abnormal urine patient be N and creatinine are elevated creatinine is 2.55 baseline is around that. Patient takes Lasix at home patient doesn't have any evidence of for congestive heart failure at this time, no documented history of congestive heart failure no evidence of heart failure on the echocardiogram BNP is around 600, patient's serum bicarbonate is is low at 17 secondary to hyperchloremia. Obtaining pro-calcitonin level patient received 1 dose of Rocephin and azithromycin which she is not being continued at this time. Patient does have multiple other medical problems including peripheral neuropath y, SLE for which patient uses hydroxychloroquine. Patient denied any nausea vomiting diarrhea. Patient does use Lasix 80 mg daily at home. She does have obesity hypoventilation syndrome and sleep apnea for which patient uses oxygen at home patient is on 4 L of oxygen at baseline. 02/16/2022 Patient is currently resting in the bed. Awake alert and oriented x3. Requiring oxygen at 4 L via nasal cannula which she is at home. Denies any complaints of chest pain or worsening shortness of breath. Complains of nausea. No episodes of vomiting. No diarrhea. Patient is being current dexamethasone, Lovenox and supportive therapy. Also on IV fluids with normal saline at 75 cc/h. Laboratory data pending at this time. Current medications reviewed. Objective - Vital Signs Vital signs: Vital Signs Temp 97.8 F 02/16/22 19:42 Pulse 85 02/16/22 19:42 Resp 17 02/16/22 19:42 BP 145/79 02/16/22 19:42 Pulse Ox 95 02/16/22 19:42 FiO2 Intake & Output 02/16/22 02/16/22 02/17/22 06:59 18:59 05:59 Intake Total 600 Balance 600 Intake: IV 600 Sodium Chloride 0.9% 1, 600 000 ml @ 75 mls/hr IV . [id number] [facility] Rx#:[id number] Other: Voiding Method Toilet - Exam PHYSICAL EXAMINATION: Patient is lying in the bed comfortably, no acute distress, awake alert and oriented.. HEENT: Normocephalic. Neck is supple. Pupils reactive. Nostrils clear. Oral cavity is moist. Neck reveals no JVD, carotid bruits, or thyromegaly. CHEST EXAMINATION: Trachea is central. Symmetrical expansion. Bibasilar scattered crackles, rhonchi. Nonlabored breathing.. CARDIAC: Normal S1, S2 with no gallops. No murmurs ABDOMEN: Soft. Bowel sounds present. Nontender. No organomegaly. No abdominal bruits. Extremities: reveal no edema. No clubbing or cyanosis Neurologically awake, alert, oriented x3 with well-coordinated movements. No focal deficits noted Skin: No rash or skin lesions. Psychiatric: Coperative. Nonsuicidal, Musculoskeletal: No joint swelling or deformity. Normal range of motion. - Labs CBC & Chem 7: 02/19/22 09:11 02/19/22 09:11 Labs: Microbiology - Last 24 Hours (Table) 02/14/22 23:45 Blood Culture - Preliminary Blood No Growth after 24 hours 02/14/22 23:45 Blood Culture - Preliminary Blood No Growth after 24 hours 02/14/22 09:58 Urine Culture - Preliminary Urine,Voided Assessment and Plan Assessment: Assessment and plan -Nausea and vomiting. Malaise weakness tiredness: Secondary to COVID-19 there is no clinical evidence of pneumonia .Symptoms for the past 1 week. Patient is not vaccinated. -Elevated creatinine probably chronic kidney disease stage IV although there may be a competent of acute renal failure patient's creatinine is at her baseline patient's Lasix will be held and patient was started on gentle hydration but patient need to be closely monitored for volume overload -Non-anion gap metabolic acidosis secondary to hyperchloremia -Obesity hypoventilation syndrome, sleep apnea -History of SLE for which patient is on Plaquenil -Recently diagnosed history of ovarian cancer for which patient was started on chemotherapy yet -Peripheral neuropathy for which patient is on gabapentin dose of which need to be decreased because of poor renal function -Type 2 diabetes mellitus chemo brain will be held patient will be on sliding scale insulin History of DVT for which patient is presently off anticoagulation -Hypertension -Hypothyroidism DVT prophylaxis: Lovenox Time with Patient: Greater than 30
[2022-02-17] MEDS: SODIUM CHLORIDE 0.9% 1,000 ML IV SCH ×2 (06:12→16:54)
[2022-02-17] MEDS: PANTOPRAZOLE 40 MG TABLET PO SCH ×2 (06:44→16:51)
[2022-02-17] MEDS: SYMBICORT 160-4.5 MCG INHALER INHALATION SCH ×2 (08:20→21:00)
[2022-02-17] MEDS: ALBUTEROL HFA INHALER INHALATION PRN ×4 (08:20→21:00)
[2022-02-17] MEDS: BENZONATATE 100 MG CAP PO SCH ×3 (09:58→20:35)
[2022-02-17] MEDS: ENOXAPARIN 40 MG/0.4 ML SYRINGE SQ SCH ×2 (09:58→20:34)
[2022-02-17] MEDS: METOPROLOL SUCCINATE (ER) 25 MG TAB.ER.24H PO SCH (09:58)
[2022-02-17] MEDS: FLUoxetine HCL 20 MG CAP PO SCH ×2 (09:58→20:35)
[2022-02-17] MEDS: ACETAMINOPHEN TAB 325 MG TAB PO PRN ×2 (09:58→16:50)
[2022-02-17] MEDS: GABAPENTIN 300 MG CAP PO SCH ×2 (09:58→20:34)
[2022-02-17] MEDS: allopurinoL 100 MG TAB PO SCH (09:58)
[2022-02-17] MEDS: ASPIRIN 325 MG TAB PO SCH (09:58)
[2022-02-17] MEDS: DEXAMETHASONE SOD PHOSPHATE 10 MG/ML 1 ML VIAL IVP SCH (09:58)
[2022-02-17] MEDS: MONTELUKAST 10 MG TAB PO SCH (09:59)
[2022-02-17] MEDS: HYDROXYCHLOROQUINE SULFATE 200 MG TAB PO SCH ×2 (10:00→20:35)
[2022-02-17] MEDS ORDERED: DEXTROSE 50% SYRINGE 50 ML IVP PRN ×3 (12:01→20:08)
[2022-02-17 12:21] LABS: Glucose,Whole Blood 477 mg/dL (70-110)
--- NOTE | 2022-02-17 12:32 | P.PN ---
Subjective Progress Note Date: 02/17/22 Principal diagnosis: Coronavirus infection. Pulmonary consult dated 02/15/2022. 56-year-old female seen in the emergency room, room 17. She presented initially on February 14, complaining of nausea, vomiting, and diarrhea. She has a history of hypertension, heart failure, stage III chronic kidney disease, diabetes, Graves' disease, DVT, uterine cancer, and severe asthma. She sees my partner, for her asthma. She apparently tested positive for coronavirus on February 11. Since that time, she is complaining of weakness, and ongoing nausea, vomiting, and diarrhea. She also complains of some abdominal cramping, as well as some mild shortness of breath. No chest pain. No fever or chills. No genitourinary complaints. She was recent diagnosis having stage I uterine cancer, by Dr. Mary Bustamante. Currently, the patient is on 4 L of oxygen here in the ICU, which is what she uses at home. She is on vaccinated. She's not receiving any IV fluids. White count 7.9, hemoglobin 11.7, hematocrit 35.4, and platelet count 317,000. Sodium 145, potassium 4, chlorides 105, CO2 17, anion gap 23, BUN 50, and creatinine 2.55. His electrolytes are consistent with an anion gap metabolic acidosis. I do not know what her baseline he went and creatinine are but I suspect, these are higher. AST 38, N-terminal proBNP 641. Urine is yellow and cloudy, with 4+ glucose and trace ketones. Nitrite was positive, and leukocyte esterase was large positive. She was 29 WBCs, and few bacteria in her urine. Repeat coronavirus testing, was positive. Chest x-ray apparently shows an extensive infiltrate in the left lower lobe. I cannot pull up the x-rays myself. Computed tomography scan of the chest reveals bilateral patchy multifocal pulmonary infiltrates. These infiltrates are new compared to a CAT scan done on December 22 of this year. Progress note dated 02/16/2022. The patient is seen in room 460. She was sleeping. She was in no distress. She's currently on 4 L of oxygen. She's getting saline at 75 mL an hour. The patient was initially seen in the emergency department. She came in primarily with nausea, vomiting, and diarrhea. She also had dehydration. She really wasn't complaining much about respiratory issues. No new labs today. Labs from February 14 are reviewed. Blood cultures are currently pending or negative. Urine cultures are negative are pending. Progress note dated 02/17/2022. 56-year-old female seen in room 460. Currently, the patient's on 4 L of oxygen. She's getting saline at 75 mL an hour. She does asked for something for cough. I prescribed strength Tessalon Perles, 200 mg 3 times a day. She feels much improved. She is resting comfortably. No respiratory difficulty. No new labs other than a blood glucose of 477. Urine is showing some evidence of gram- negative bacilli. It is yet to be identified. Objective - Vital Signs Vital signs: Vital Signs Temp 98.0 F 02/17/22 12:11 Pulse 72 02/17/22 12:11 Resp 16 02/17/22 12:11 BP 129/75 02/17/22 12:11 Pulse Ox 96 02/17/22 12:11 FiO2 Intake & Output 02/16/22 02/17/22 02/17/22 19:59 06:59 18:59 Intake Total Balance Intake: IV Sodium Chloride 0.9% 1, 000 ml @ 75 mls/hr IV . [id number] [facility] Rx#:[id number] Other: Voiding Method Toilet # Voids - Exam No acute distress, oriented 3. Currently on 4 L. No audible wheezing, use of accessory muscles, or conversational dyspnea HEENT examination is grossly unremarkable. Neck supple. Full range of motion. No adenopathy thyromegaly or neck vein distention. Cardiovascular examination reveals regular rhythm rate. S1-S2 normal. No S3 or S4. No discernible murmur noted. Heart rate 72 bpm. Lungs reveal minimal scattered rhonchi. No wheezes. No crackles. Breath sounds equal bilaterally. 4 L saturation is 96 %. Abdomen soft bowel sounds are heard. No masses or tenderness. Extremities are intact. No cyanosis clubbing or edema. Skin is without rash or lesion. Neurologic examination is brief but nonfocal. - Labs CBC & Chem 7: 02/14/22 20:55 02/14/22 20:55 Labs: Abnormal Lab Results - Last 24 Hours (Table) 02/17/22 Range/Units 12:19 POC Glucose (mg/dL) 477 H (70-110) mg/dL Microbiology - Last 24 Hours (Table) 02/14/22 23:45 Blood Culture - Preliminary Blood No Growth after 48 hours 02/14/22 23:45 Blood Culture - Preliminary Blood No Growth after 48 hours 02/14/22 09:58 Urine Culture - Preliminary Urine,Voided Gram Neg Bacilli Assessment and Plan Assessment: Acute coronavirus infection, manifesting primarily with GI issues such as abdominal pain, nausea, vomiting, and diarrhea. Dehydration, and acute kidney injury, secondary to coronavirus infection. Rule out urinary tract infection. Possible coronavirus associated pneumonia, although, the patient is not really manifesting much in the way pulmonary issues. History of severe asthma/COPD. Chronic hypoxemic respiratory failure, on home O2 at 4 L. Recent diagnosis of stage I uterine cancer. History of hypertension. History of congestive heart failure. History of stage III chronic kidney disease. History of diabetes mellitus. History of Graves' disease. History of deep venous thrombosis. History of leukemia. Plan: Plan dated 02/15/2022. The patient has been placed on albuterol inhaler, and Singulair. I will add some Decadron, 6 mg a day. She received a dose of azithromycin and Rocephin in the emergency department. She should be placed on vitamins. I will check a pro-calcitonin level. The patient is ready on Lovenox 40 mg subcu twice a day. She is also receiving aspirin 325 mg a day. Additional recommendations and suggestions are forthcoming. Prognosis is guarded. Plan dated 02/16/2022. The patient appears stable. We placed her on some Decadron. She is also receiving an albuterol inhaler, as well as Symbicort. We will continue to follow make recommendations along the way. Respiratory status appears to be reasonably stable. Again, her primary issues were GI, with nausea vomiting diarrhea and dehydration. Labs, x-rays, and medications are reviewed. Prognosis is guarded. Plan dated 02/17/2022. The pulmonary standpoint, the patient's doing well. She's on 4 L. Saturations are excellent. I do prescribe some Tessalon Perles for her. She's been complaining of cough. She's not producing any phlegm. Labs, x-rays, and medications are reviewed. Her complaints primarily included abdominal pain, nausea, vomiting, diarrhea. Those are also improved. We will continue to follow make recommendations along the way. Time with Patient: Less than 30
[2022-02-17] MEDS: INSULIN ASPART (NovoLOG) 100 UNIT/ML VIAL SQ SCH ×2 (13:00→16:51)
[2022-02-17] MEDS ORDERED: INSULIN ASPART (NovoLOG) 100 UNIT/ML VIAL SQ ONE ×2 (13:35→17:30)
[2022-02-17 16:39] LABS: Glucose,Whole Blood 555 mg/dL (70-110)
[2022-02-17 17:28] LABS: Basophils # (A) 0.03 X 10*3/uL (0.00-0.10); Basophils % (A) 0.3 %; Eosinophils # (A) 0.01 X 10*3/uL (0.04-0.35); Eosinophils % (A) 0.1 %; HCT 30.2 % (37.2-46.3); HGB 9.6 g/dL (12.0-15.0); Immature Grans, Automated 0.6 %; Lymphocytes % (A) 8.4 %; MCH 26.4 pg (27.0-32.0); MCHC 31.8 g/dL (32.0-37.0); MCV 83.2 fL (80.0-97.0); Mean Platelet Volume 11.2 fL (9.5-12.2); Monocytes # (A) 0.49 X 10*3/uL (0.20-1.00); Monocytes % (A) 5.2 %; NRBC Per 100 WBC 0 /100 WBCS (0.0-0.0); Neutrophils # (A) 8.11 X 10*3/uL (1.80-7.70); Neutrophils % (A) 85.4 %; Platelet Count 318 X 10*3/uL (140-440); RBC 3.63 X 10*6/uL (4.10-5.20); RDW 13.2 % (11.5-14.5)
[2022-02-17 18:01] LABS: C Reactive Protein 8.2 mg/dL (0.00-0.80)
[2022-02-17 18:02] LABS: African American GFR (CKD) 34.5 (60.0-200.0); Anion Gap 16.4 mmol/L (10.00-18.00); BUN/Creat Ratio 23.69 Ratio (12.00-20.00); Blood Urea Nitrogen 44.3 mg/dL (9.0-27.0); Calcium 8.5 mg/dL (8.7-10.3); Carbon Dioxide 14.4 mmol/L (20.0-27.5); Non-African American GFR(CKD) 29.7 (60.0-200.0)
[2022-02-17 18:13] LABS: African American GFR (CKD) 33.8 (60.0-200.0); Anion Gap 16.6 mmol/L (10.00-18.00); BUN/Creat Ratio 23.11 Ratio (12.00-20.00); Blood Urea Nitrogen 43.9 mg/dL (9.0-27.0); Calcium 8.4 mg/dL (8.7-10.3); Carbon Dioxide 14.4 mmol/L (20.0-27.5); Magnesium 1.7 mg/dL (1.5-2.4); Non-African American GFR(CKD) 29.2 (60.0-200.0); Potassium 4.9 mmol/L (3.5-5.5)
[2022-02-17 19:42] LABS: Glucose,Whole Blood 552 mg/dL (70-110)
[2022-02-17] MEDS: ATORVASTATIN 10 MG TAB PO SCH (20:35)
[2022-02-17] MEDS: PRIMIDONE 50 MG TAB PO SCH (20:35)
[2022-02-17] MEDS: INSULIN REGULAR 100 UNIT in SODIUM CHLORIDE 0.9% 100 ML IV SCH (21:45)
[2022-02-17 22:00] LABS: Glucose,Whole Blood 476 mg/dL (70-110)
[2022-02-17 22:51] LABS: Glucose,Whole Blood 441 mg/dL (70-110)
[2022-02-17 23:56] LABS: Glucose,Whole Blood 398 mg/dL (70-110)
[2022-02-18 01:00] LABS: Glucose,Whole Blood 272 mg/dL (70-110)
[2022-02-18 01:46] LABS: Glucose,Whole Blood 197 mg/dL (70-110)
[2022-02-18 02:57] LABS: Glucose,Whole Blood 132 mg/dL (70-110)
[2022-02-18] MEDS: ALBUTEROL HFA INHALER INHALATION PRN ×5 (03:14→20:40)
[2022-02-18 03:56] LABS: Glucose,Whole Blood 127 mg/dL (70-110)
[2022-02-18 04:46] LABS: Glucose,Whole Blood 151 mg/dL (70-110)
[2022-02-18 06:03] LABS: Glucose,Whole Blood 167 mg/dL (70-110)
[2022-02-18] MEDS: SODIUM CHLORIDE 0.9% 1,000 ML IV SCH ×2 (06:43→11:53)
[2022-02-18] MEDS: PANTOPRAZOLE 40 MG TABLET PO SCH ×2 (06:43→17:09)
[2022-02-18 06:56] LABS: Glucose,Whole Blood 157 mg/dL (70-110)
[2022-02-18 07:57] LABS: Glucose,Whole Blood 136 mg/dL (70-110)
[2022-02-18] MEDS: SYMBICORT 160-4.5 MCG INHALER INHALATION SCH ×2 (07:58→20:40)
[2022-02-18] MEDS: ACETAMINOPHEN TAB 325 MG TAB PO PRN (08:27)
--- NOTE | 2022-02-18 08:36 | P.PN ---
Subjective Progress Note Date: 02/16/22 Principal diagnosis: Pneumonia Patient is a 56-year-old female presenting to the ER for evaluation of increasing shortness of breath nausea vomiting and diarrhea patient tested positive for COVID-19 chest x-ray bilateral patchy multifocal infiltrates. On today's evaluation that is 02/16/2022 the patient denies having any fever or any chills, the patient is currently breathing comfortably on 4 L nasal cannula patient denies having any chest pain she did have a cough not bring up any sputum no abdominal pain no further diarrhea Objective - Vital Signs Vital signs: Vital Signs Temp 98.5 F 02/16/22 10:20 Pulse 107 H 02/16/22 10:20 Resp 17 02/15/22 19:05 BP 148/74 02/16/22 10:20 Pulse Ox 97 02/16/22 10:20 FiO2 Intake & Output 02/15/22 02/16/22 02/16/22 18:59 06:59 18:59 Weight 142.882 kg Other: Voiding Method Toilet # Voids 1 - Exam GENERAL DESCRIPTION: Middle-aged female lying in bed, no distress. No tachypnea or accessory muscle of respiration use. LUNGS: Unlabored breathing. Decrease intensity breath sounds no wheeze HEART: S1, S2, regular rate and rhythm. No loud murmur ABDOMEN: Soft, no tenderness , guarding or rigidity, no organomegaly EXTREMITIES: No edema of feet. - Labs CBC & Chem 7: 02/17/22 12:15 02/17/22 12:15 Labs: Abnormal Lab Results - Last 24 Hours (Table) 02/14/22 Range/Units 20:55 Procalcitonin 0.15 H (0.02-0.09) ng/mL Microbiology - Last 24 Hours (Table) 02/14/22 23:45 Blood Culture - Preliminary Blood No Growth after 24 hours 02/14/22 23:45 Blood Culture - Preliminary Blood No Growth after 24 hours 02/14/22 09:58 Urine Culture - Preliminary Urine,Voided Assessment and Plan (1) COVID-19 Current Visit: Yes Status: Acute Code(s): U07.1 - COVID-19 SNOMED Code(s): 216862747 Plan: 1patient presented to hospital with generalized weakness nausea vomiting and diarrhea in this patient who tested positive for COVID-19 on February 11, 2022 and apparently has slight worsening of her symptoms unfortunately O2 sats on room air but not documented she is currently 100% on room air and is not complaining of significant shortness of breath patient did not have any fever the pulmonary abdominal pneumonia likely due to her covid19 pneumonia clinically not behaving as a septic emboli's. 2blood culture has been obtained Which are negative so far patient did have an elevated CRP and mild elevated procalcitonin 3patient to continue with the dexamethasone Lovenox and zinc and ascorbic acid. 4patient did have positive UA but no significant urinary symptoms more likely asymptomatic bacteriuria Time with Patient: Less than 30
--- NOTE | 2022-02-18 08:39 | P.PN ---
Subjective Progress Note Date: 02/17/22 Principal diagnosis: Pneumonia Patient is a 56-year-old female presenting to the ER for evaluation of increasing shortness of breath nausea vomiting and diarrhea patient tested positive for COVID-19 chest x-ray bilateral patchy multifocal infiltrates. On today's evaluation that is 02/17/2022 the patient remains to be afebrile, the patient is breathing comfortably on 4 L nasal cannula patient denies having any chest pain, patient cough has decreased intensity mostly dry in nature denies abdominal pain and no diarrhea no further nausea no vomiting Objective - Vital Signs Vital signs: Vital Signs Temp 98.6 F 02/17/22 14:00 Pulse 72 02/17/22 14:00 Resp 18 02/17/22 14:00 BP 138/71 02/17/22 14:00 Pulse Ox 94 L 02/17/22 14:00 FiO2 Intake & Output 02/16/22 02/17/22 02/17/22 19:59 06:59 18:59 Intake Total Balance Intake: IV Sodium Chloride 0.9% 1, 000 ml @ 75 mls/hr IV . [id number] [facility] Rx#:[id number] Other: Voiding Method Toilet # Voids - Exam GENERAL DESCRIPTION: Middle-aged female lying in bed, no distress. No tachypnea or accessory muscle of respiration use. LUNGS: Unlabored breathing. Decrease intensity breath sounds no wheeze HEART: S1, S2, regular rate and rhythm. No loud murmur ABDOMEN: Soft, no tenderness , guarding or rigidity, no organomegaly EXTREMITIES: No edema of feet. - Labs CBC & Chem 7: 02/17/22 12:15 02/17/22 12:15 Labs: Abnormal Lab Results - Last 24 Hours (Table) 02/17/22 02/17/22 Range/Units 12:19 16:37 POC Glucose (mg/dL) 477 H 555 H (70-110) mg/dL Microbiology - Last 24 Hours (Table) 02/14/22 23:45 Blood Culture - Preliminary Blood No Growth after 48 hours 02/14/22 23:45 Blood Culture - Preliminary Blood No Growth after 48 hours 02/14/22 09:58 Urine Culture - Preliminary Urine,Voided Gram Neg Bacilli Assessment and Plan (1) COVID-19 Current Visit: Yes Status: Acute Code(s): U07.1 - COVID-19 SNOMED Code(s): 530498555 Plan: 1patient presented to hospital with generalized weakness nausea vomiting and diarrhea in this patient who tested positive for COVID-19 on February 11, 2022 and apparently has slight worsening of her symptoms unfortunately O2 sats on room air but not documented she is currently 100% on room air and is not complaining of significant shortness of breath patient did not have any fever the pulmonary abdominal pneumonia likely due to her covid19 pneumonia clinically not behaving as a septic emboli's. 2blood culture has been obtained Which are negative so far Which will make septic emboli less likely. 3patient did have a positive urine culture urine culture did grew drug- resistant Klebsiella patient do not have any urinary symptoms more likely asymptomatic bacteriuria and no need for antibiotics. 4patient seem to have shown clinical improvement as per his covid19 and continue with the dexamethasone Lovenox zinc ascorbic acid and monitor clinical course closely Time with Patient: Less than 30
[2022-02-18 09:13] LABS: Basophils % (A) 0 %; Eosinophils # (A) 0.1 k/uL (0-0.7); Eosinophils % (A) 1 %; HCT 28.2 % (34.0-46.0); Lymphocytes # (A) 1.9 k/uL (1.0-4.8); Lymphocytes % (A) 20 %; MCH 26.6 pg (25.0-35.0); MCHC 32.3 g/dL (31.0-37.0); MCV 82.4 fL (80.0-100.0); Mean Platelet Volume 9.6; Monocytes # (A) 0.5 k/uL (0-1.0); Monocytes % (A) 5 %; Neutrophils # (A) 6.9 k/uL (1.3-7.7); Neutrophils % (A) 73 %; Platelet Count 315 k/uL (150-450); RBC 3.43 m/uL (3.80-5.40); RDW 13.7 % (11.5-15.5); WBC 9.5 k/uL (3.8-10.6)
[2022-02-18 09:18] LABS: HGB 9.1 gm/dL (11.4-16.0)
[2022-02-18 09:25] LABS: Calcium 8.6 mg/dL (8.4-10.2); Potassium 4.2 mmol/L (3.5-5.1)
[2022-02-18] MEDS: HYDROXYCHLOROQUINE SULFATE 200 MG TAB PO SCH ×2 (09:35→21:25)
[2022-02-18] MEDS: allopurinoL 100 MG TAB PO SCH (09:35)
[2022-02-18] MEDS: ASPIRIN 325 MG TAB PO SCH (09:35)
[2022-02-18] MEDS: BENZONATATE 100 MG CAP PO SCH ×3 (09:35→21:26)
[2022-02-18] MEDS: METOPROLOL SUCCINATE (ER) 25 MG TAB.ER.24H PO SCH (09:35)
[2022-02-18] MEDS: DEXAMETHASONE SOD PHOSPHATE 10 MG/ML 1 ML VIAL IVP SCH (09:35)
[2022-02-18] MEDS: ENOXAPARIN 40 MG/0.4 ML SYRINGE SQ SCH ×2 (09:35→21:25)
[2022-02-18] MEDS: FLUoxetine HCL 20 MG CAP PO SCH ×2 (09:35→21:26)
[2022-02-18] MEDS: MONTELUKAST 10 MG TAB PO SCH (09:35)
[2022-02-18] MEDS: GABAPENTIN 300 MG CAP PO SCH ×2 (09:35→21:26)
[2022-02-18 10:12] LABS: Glucose,Whole Blood 116 mg/dL (70-110)
[2022-02-18 11:13] LABS: Glucose,Whole Blood 190 mg/dL (70-110)
[2022-02-18 12:09] LABS: Glucose,Whole Blood 250 mg/dL (70-110)
[2022-02-18 12:49] VITALS: BMI 50.8
[2022-02-18] MEDS: INSULIN REGULAR 100 UNIT in SODIUM CHLORIDE 0.9% 100 ML IV SCH (12:52)
[2022-02-18] MEDS ORDERED: INSULIN DETEMIR (LEVEMIR) 100 UNIT/ML SYR SQ SCH ×4 (13:21→21:30)
[2022-02-18] MEDS ORDERED: INSULIN DETEMIR (LEVEMIR) 100 UNIT/ML SYR SQ ONE (14:15)
[2022-02-18 14:26] LABS: Glucose,Whole Blood 247 mg/dL (70-110)
--- NOTE | 2022-02-18 14:50 | P.PN ---
Subjective Progress Note Date: 02/18/22 Principal diagnosis: acute COVID-19 pneumonia 56-year-old female seen in the emergency room, room 17. She presented initially on February 14, complaining of nausea, vomiting, and diarrhea. She has a history of hypertension, heart failure, stage III chronic kidney disease, diabetes, Graves' disease, DVT, uterine cancer, and severe asthma. She sees my partner, for her asthma. She apparently tested positive for coronavirus on February 11. Since that time, she is complaining of weakness, and ongoing nausea, vomiting, and diarrhea. She also complains of some abdominal cramping, as well as some mild shortness of breath. No chest pain. No fever or chills. No genitourinary complaints. She was recent diagnosis having stage I uterine cancer, by Dr. Mary Bustamante. Currently, the patient is on 4 L of oxygen here in the ICU, which is what she uses at home. She is on vaccinated. She's not receiving any IV fluids. White count 7.9, hemoglobin 11.7, hematocrit 35.4, and platelet count 317,000. Sodium 145, potassium 4, chlorides 105, CO2 17, anion gap 23, BUN 50, and creatinine 2.55. His electrolytes are consistent with an anion gap metabolic acidosis. I do not know what her baseline he went and creatinine are but I suspect, these are higher. AST 38, N-terminal proBNP 641. Urine is yellow and cloudy, with 4+ glucose and trace ketones. Nitrite was p ositive, and leukocyte esterase was large positive. She was 29 WBCs, and few bacteria in her urine. Repeat coronavirus testing, was positive. Chest x-ray apparently shows an extensive infiltrate in the left lower lobe. I cannot pull up the x-rays myself. Computed tomography scan of the chest reveals bilateral patchy multifocal pulmonary infiltrates. These infiltrates are new compared to a CAT scan done on December 22 of this year. Progress note dated 02/16/2022. The patient is seen in room 460. She was sleeping. She was in no distress. She's currently on 4 L of oxygen. She's getting saline at 75 mL an hour. The patient was initially seen in the emergency department. She came in primarily with nausea, vomiting, and diarrhea. She also had dehydration. She really wasn't complaining much about respiratory issues. No new labs today. Labs from February 14 are reviewed. Blood cultures are currently pending or negative. Urine cultures are negative are pending. Progress note dated 02/17/2022. 56-year-old female seen in room 460. Currently, the patient's on 4 L of oxygen. She's getting saline at 75 mL an hour. She does asked for something for cough. I prescribed strength Tessalon Perles, 200 mg 3 times a day. She feels much improved. She is resting comfortably. No respiratory difficulty. No new labs other than a blood glucose of 477. Urine is showing some evidence of gram- negative bacilli. It is yet to be identified. Reevaluated today on 02/18/22, patient is requiring oxygen at 4 L, O2 sats is 94%, chest x-ray clearly showed evidence of extensive infiltrates especially in the left lower lobe, and she was also found to have widening of the mediastinum with increased density at the pulmonary yvonne. Consistent with COVID-[address] of the chest did show evidence of bilateral multifocal infiltrates. Again consistent with COVID-19 pneumonia. Surprisingly, the patient is feeling better clinically, she is on 4 L nasal cannula with O2 sat showed 93%. WBC count is 9.5 hemoglobin is 9.1 electrolytes are normal BUN is 43 creatinine 1.65, improving since admission. Patient presented mostly with GI symptoms on presentation, however her GI symptoms have significantly improved. She did have a positive urine culture growing resistant Klebsiella however the patient is asymptomatic. And this is being addressed by infectious disease, felt no need for antibiotics. Objective - Vital Signs Vital signs: Vital Signs Temp 97.4 F L 02/18/22 11:55 Pulse 72 02/18/22 11:55 Resp 18 02/18/22 11:55 BP 127/63 02/18/22 11:55 Pulse Ox 93 L 02/18/22 11:55 FiO2 Intake & Output 02/17/22 02/18/22 02/18/22 18:59 06:59 18:59 Intake Total 48.841 647.139 Output Total 300 Balance -251.159 647.139 Weight 142.882 kg Intake: IV 600 Sodium Chloride 0.9% 1, 600 000 ml @ 75 mls/hr IV . [id number] [facility] Rx#:[id number] Intake, IV Titration 48.841 47.139 Amount Insulin Regular 100 unit 48.841 47.139 In Sodium Chloride 0.9% 100 ml @ Titrate IV .Q0M [facility] Rx#:[id number] Output: Urine 300 Other: Voiding Method Toilet Toilet # Voids 4 - Exam Physical Exam: Revealed a 56-year-old female in no distress. Head: Atraumatic, normocephalic. ENT: PERRLA, EOMI, anicteric, no neck masses Chest: [Minimal fine crackles at the bases no rhonchi no wheezes] Cardiac Exam: [Normal S1 and S2, no S3 gallop, no murmur.] Abdomen: [Soft, nontender, no megaly, no rebound, no guarding, normal bowel sounds.] Extremities: [No clubbing, no edema, no cyanosis.] Neurological Exam: [No focal neurologic deficit.] Cardiac: Normal mood affect and normal mental status examination. Skin: No rashes - Labs CBC & Chem 7: 02/18/22 08:01 02/18/22 08:01 Labs: Abnormal Lab Results - Last 24 Hours (Table) 02/17/22 02/17/22 02/17/22 Range/Units 12:15 12:15 12:15 RBC 3.63 L (4.10-5.20) X 10*6/uL Hgb 9.6 L (12.0-15.0) g/dL Hct 30.2 L (37.2-46.3) % MCH 26.4 L (27.0-32.0) pg MCHC 31.8 L (32.0-37.0) g/dL Immature Gran # 0.06 H (0.00-0.04) X 10*3/uL Neutrophils # 8.11 H (1.80-7.70) X 10*3/uL Lymphocytes # 0.80 L (0.90-5.00) X 10*3/uL Eosinophils # 0.01 L (0.04-0.35) X 10*3/uL Sodium 133 L 134 L (135-145) mmol/L Chloride (98-107) mmol/L Carbon Dioxide 14.4 L 14.4 L (20.0-27.5) mmol/L BUN 43.9 H 44.3 H (9.0-27.0) mg/dL Creatinine 1.9 H 1.9 H (0.6-1.5) mg/dL Est GFR (CKD-EPI)AfAm 33.8 L 34.5 L (60.0-200.0) Est GFR (CKD-EPI)NonAf 29.2 L 29.7 L (60.0-200.0) BUN/Creatinine Ratio 23.11 H 23.69 H (12.00-20.00) Ratio Glucose 485 H 495 H (70-110) mg/dL POC Glucose (mg/dL) (70-110) mg/dL Hemoglobin A1c (0.0-6.0) % Calcium 8.4 L 8.5 L (8.7-10.3) mg/dL C-Reactive Protein 8.20 H (0.00-0.80) mg/dL 02/17/22 02/17/22 02/17/22 Range/Units 12:15 16:37 19:40 RBC (4.10-5.20) X 10*6/uL Hgb (12.0-15.0) g/dL Hct (37.2-46.3) % MCH (27.0-32.0) pg MCHC (32.0-37.0) g/dL Immature Gran # (0.00-0.04) X 10*3/uL Neutrophils # (1.80-7.70) X 10*3/uL Lymphocytes # (0.90-5.00) X 10*3/uL Eosinophils # (0.04-0.35) X 10*3/uL Sodium (135-145) mmol/L Chloride (98-107) mmol/L Carbon Dioxide (20.0-27.5) mmol/L BUN (9.0-27.0) mg/dL Creatinine (0.6-1.5) mg/dL Est GFR (CKD-EPI)AfAm (60.0-200.0) Est GFR (CKD-EPI)NonAf (60.0-200.0) BUN/Creatinine Ratio (12.00-20.00) Ratio Glucose (70-110) mg/dL POC Glucose (mg/dL) 555 H 552 H (70-110) mg/dL Hemoglobin A1c 12.3 H (0.0-6.0) % Calcium (8.7-10.3) mg/dL C-Reactive Protein (0.00-0.80) mg/dL 02/17/22 02/17/22 02/17/22 Range/Units 21:44 22:49 23:44 RBC (4.10-5.20) X 10*6/uL Hgb (12.0-15.0) g/dL Hct (37.2-46.3) % MCH (27.0-32.0) pg MCHC (32.0-37.0) g/dL Immature Gran # (0.00-0.04) X 10*3/uL Neutrophils # (1.80-7.70) X 10*3/uL Lymphocytes # (0.90-5.00) X 10*3/uL Eosinophils # (0.04-0.35) X 10*3/uL Sodium (135-145) mmol/L Chloride (98-107) mmol/L Carbon Dioxide (20.0-27.5) mmol/L BUN (9.0-27.0) mg/dL Creatinine (0.6-1.5) mg/dL Est GFR (CKD-EPI)AfAm (60.0-200.0) Est GFR (CKD-EPI)NonAf (60.0-200.0) BUN/Creatinine Ratio (12.00-20.00) Ratio Glucose (70-110) mg/dL POC Glucose (mg/dL) 476 H 441 H 398 H (70-110) mg/dL Hemoglobin A1c (0.0-6.0) % Calcium (8.7-10.3) mg/dL C-Reactive Protein (0.00-0.80) mg/dL 02/18/22 02/18/22 02/18/22 Range/Units 00:48 01:44 02:45 RBC (4.10-5.20) X 10*6/uL Hgb (12.0-15.0) g/dL Hct (37.2-46.3) % MCH (27.0-32.0) pg MCHC (32.0-37.0) g/dL Immature Gran # (0.00-0.04) X 10*3/uL Neutrophils # (1.80-7.70) X 10*3/uL Lymphocytes # (0.90-5.00) X 10*3/uL Eosinophils # (0.04-0.35) X 10*3/uL Sodium (135-145) mmol/L Chloride (98-107) mmol/L Carbon Dioxide (20.0-27.5) mmol/L BUN (9.0-27.0) mg/dL Creatinine (0.6-1.5) mg/dL Est GFR (CKD-EPI)AfAm (60.0-200.0) Est GFR (CKD-EPI)NonAf (60.0-200.0) BUN/Creatinine Ratio (12.00-20.00) Ratio Glucose (70-110) mg/dL POC Glucose (mg/dL) 272 H 197 H 132 H (70-110) mg/dL Hemoglobin A1c (0.0-6.0) % Calcium (8.7-10.3) mg/dL C-Reactive Protein (0.00-0.80) mg/dL 02/18/22 02/18/22 02/18/22 Range/Units 03:44 04:45 05:51 RBC (4.10-5.20) X 10*6/uL Hgb (12.0-15.0) g/dL Hct (37.2-46.3) % MCH (27.0-32.0) pg MCHC (32.0-37.0) g/dL Immature Gran # (0.00-0.04) X 10*3/uL Neutrophils # (1.80-7.70) X 10*3/uL Lymphocytes # (0.90-5.00) X 10*3/uL Eosinophils # (0.04-0.35) X 10*3/uL Sodium (135-145) mmol/L Chloride (98-107) mmol/L Carbon Dioxide (20.0-27.5) mmol/L BUN (9.0-27.0) mg/dL Creatinine (0.6-1.5) mg/dL Est GFR (CKD-EPI)AfAm (60.0-200.0) Est GFR (CKD-EPI)NonAf (60.0-200.0) BUN/Creatinine Ratio (12.00-20.00) Ratio Glucose (70-110) mg/dL POC Glucose (mg/dL) 127 H 151 H 167 H (70-110) mg/dL Hemoglobin A1c (0.0-6.0) % Calcium (8.7-10.3) mg/dL C-Reactive Protein (0.00-0.80) mg/dL 02/18/22 02/18/22 02/18/22 Range/Units 06:44 07:55 08:01 RBC 3.43 L (4.10-5.20) X 10*6/uL Hgb 9.1 L D (12.0-15.0) g/dL Hct 28.2 L (37.2-46.3) % MCH (27.0-32.0) pg MCHC (32.0-37.0) g/dL Immature Gran # (0.00-0.04) X 10*3/uL Neutrophils # (1.80-7.70) X 10*3/uL Lymphocytes # (0.90-5.00) X 10*3/uL Eosinophils # (0.04-0.35) X 10*3/uL Sodium (135-145) mmol/L Chloride (98-107) mmol/L Carbon Dioxide (20.0-27.5) mmol/L BUN (9.0-27.0) mg/dL Creatinine (0.6-1.5) mg/dL Est GFR (CKD-EPI)AfAm (60.0-200.0) Est GFR (CKD-EPI)NonAf (60.0-200.0) BUN/Creatinine Ratio (12.00-20.00) Ratio Glucose (70-110) mg/dL POC Glucose (mg/dL) 157 H 136 H (70-110) mg/dL Hemoglobin A1c (0.0-6.0) % Calcium (8.7-10.3) mg/dL C-Reactive Protein (0.00-0.80) mg/dL 02/18/22 02/18/22 02/18/22 Range/Units 08:01 10:10 11:11 RBC (4.10-5.20) X 10*6/uL Hgb (12.0-15.0) g/dL Hct (37.2-46.3) % MCH (27.0-32.0) pg MCHC (32.0-37.0) g/dL Immature Gran # (0.00-0.04) X 10*3/uL Neutrophils # (1.80-7.70) X 10*3/uL Lymphocytes # (0.90-5.00) X 10*3/uL Eosinophils # (0.04-0.35) X 10*3/uL Sodium (135-145) mmol/L Chloride 112 H (98-107) mmol/L Carbon Dioxide 19 L (20.0-27.5) mmol/L BUN 43 H (9.0-27.0) mg/dL Creatinine 1.65 H (0.6-1.5) mg/dL Est GFR (CKD-EPI)AfAm (60.0-200.0) Est GFR (CKD-EPI)NonAf (60.0-200.0) BUN/Creatinine Ratio (12.00-20.00) Ratio Glucose 124 H (70-110) mg/dL POC Glucose (mg/dL) 116 H 190 H (70-110) mg/dL Hemoglobin A1c (0.0-6.0) % Calcium (8.7-10.3) mg/dL C-Reactive Protein (0.00-0.80) mg/dL 02/18/22 02/18/22 Range/Units 12:07 14:23 RBC (4.10-5.20) X 10*6/uL Hgb (12.0-15.0) g/dL Hct (37.2-46.3) % MCH (27.0-32.0) pg MCHC (32.0-37.0) g/dL Immature Gran # (0.00-0.04) X 10*3/uL Neutrophils # (1.80-7.70) X 10*3/uL Lymphocytes # (0.90-5.00) X 10*3/uL Eosinophils # (0.04-0.35) X 10*3/uL Sodium (135-145) mmol/L Chloride (98-107) mmol/L Carbon Dioxide (20.0-27.5) mmol/L BUN (9.0-27.0) mg/dL Creatinine (0.6-1.5) mg/dL Est GFR (CKD-EPI)AfAm (60.0-200.0) Est GFR (CKD-EPI)NonAf (60.0-200.0) BUN/Creatinine Ratio (12.00-20.00) Ratio Glucose (70-110) mg/dL POC Glucose (mg/dL) 250 H 247 H (70-110) mg/dL Hemoglobin A1c (0.0-6.0) % Calcium (8.7-10.3) mg/dL C-Reactive Protein (0.00-0.80) mg/dL Microbiology - Last 24 Hours (Table) 02/14/22 23:45 Blood Culture - Preliminary Blood No Growth after 72 hours 02/14/22 23:45 Blood Culture - Preliminary Blood No Growth after 72 hours 02/14/22 09:58 Urine Culture - Final Urine,Voided Klebsiella pneumoniae Assessment and Plan Assessment: Impression: Acute on chronic hypoxic respiratory failure secondary to COVID-19 pneumonia, and underlying COPD Multiple GI issues/symptoms secondary to COVID-19 infection. History of severe underlying COPD, patient is on home O2 at 4 L at home. Asymptomatic bacteriuria History of chronic hypoxic respiratory failure Recent diagnosis of stage I uterine cancer Benign essential hypertension Chronic kidney disease stage III History of Graves' disease History of deep vein thrombosis History of leukemia Recommendation: Continue present supportive care measures Continue oxygen and titrate accordingly Continue COVID-19 Continue bronchodilators Not quite ready for discharge planning We'll continue to follow Time with Patient: Less than 30
[2022-02-18 17:07] LABS: Glucose,Whole Blood 125 mg/dL (70-110)
[2022-02-18 19:47] LABS: Glucose,Whole Blood 317 mg/dL (70-110)
[2022-02-18] MEDS: PRIMIDONE 50 MG TAB PO SCH (21:25)
[2022-02-18] MEDS: GLIMEPIRIDE 4 MG TAB PO SCH (21:26)
[2022-02-18] MEDS: ATORVASTATIN 10 MG TAB PO SCH (21:26)
[2022-02-19] MEDS: ACETAMINOPHEN TAB 325 MG TAB PO PRN (04:28)
[2022-02-19 05:50] LABS: Glucose,Whole Blood 166 mg/dL (70-110)
[2022-02-19] MEDS: PANTOPRAZOLE 40 MG TABLET PO SCH (06:57)
[2022-02-19] MEDS: INSULIN ASPART (NovoLOG) 100 UNIT/ML VIAL SQ SCH ×2 (07:22→12:29)
[2022-02-19] MEDS: SYMBICORT 160-4.5 MCG INHALER INHALATION SCH (07:39)
[2022-02-19] MEDS: ALBUTEROL HFA INHALER INHALATION PRN ×2 (07:39→11:01)
[2022-02-19] MEDS: MONTELUKAST 10 MG TAB PO SCH (09:57)
[2022-02-19] MEDS: HYDROXYCHLOROQUINE SULFATE 200 MG TAB PO SCH (09:57)
[2022-02-19] MEDS: ASPIRIN 325 MG TAB PO SCH (09:57)
[2022-02-19] MEDS: BENZONATATE 100 MG CAP PO SCH (09:57)
[2022-02-19] MEDS: METOPROLOL SUCCINATE (ER) 25 MG TAB.ER.24H PO SCH (09:58)
[2022-02-19] MEDS: FLUoxetine HCL 20 MG CAP PO SCH (09:58)
[2022-02-19] MEDS: GLIMEPIRIDE 4 MG TAB PO SCH (09:58)
[2022-02-19] MEDS: DEXAMETHASONE SOD PHOSPHATE 10 MG/ML 1 ML VIAL IVP SCH (09:58)
[2022-02-19] MEDS: allopurinoL 100 MG TAB PO SCH (09:58)
[2022-02-19 09:59] LABS: Potassium 4.5 mmol/L (3.5-5.1)
[2022-02-19 10:01] LABS: Basophils # (A) 0.1 k/uL (0-0.2); Basophils % (A) 1 %; Eosinophils # (A) 0.1 k/uL (0-0.7); Eosinophils % (A) 1 %; HCT 33.2 % (34.0-46.0); HGB 11.1 gm/dL (11.4-16.0); Lymphocytes # (A) 2.5 k/uL (1.0-4.8); Lymphocytes % (A) 21 %; MCH 27.6 pg (25.0-35.0); MCHC 33.5 g/dL (31.0-37.0); MCV 82.5 fL (80.0-100.0); Monocytes # (A) 0.8 k/uL (0-1.0); Monocytes % (A) 6 %; Neutrophils # (A) 8.5 k/uL (1.3-7.7); Neutrophils % (A) 71 %; Platelet Count 276 k/uL (150-450); RBC 4.02 m/uL (3.80-5.40); RDW 13.6 % (11.5-15.5)
[2022-02-19] MEDS: GABAPENTIN 300 MG CAP PO SCH ×2 (10:02→12:29)
[2022-02-19] MEDS: ENOXAPARIN 40 MG/0.4 ML SYRINGE SQ SCH (10:03)
--- NOTE | 2022-02-19 10:39 | P.PN ---
Subjective Progress Note Date: 02/17/22 Patient is a pleasant 56-year-old female with multiple medical problems and recently diagnosed ovarian cancer for which patient haven't started on chemotherapy came in with complaints of generalized weakness and tiredness found to have COVID-19 patient was diagnosed with COVID-19 during abdomen weekend. Patient had a C. diff infection recently after using Augmentin. Patient the had a CT of the abdomen and pelvis which was read as possibly a septic emboli although it appears to be metastatic disease from the ovarian cancer is some nonspecific Infiltrates bilaterally but the no evidence of consolidation that is consistent with pneumonia. She doesn't have UTI symptoms but has mildly abnormal urine patient be N and creatinine are elevated creatinine is 2.55 baseline is around that. Patient takes Lasix at home patient doesn't have any evidence of for congestive heart failure at this time, no documented history of congestive heart failure no evidence of heart failure on the echocardiogram BNP is around 600, patient's serum bicarbonate is is low at 17 secondary to hyperchloremia. Obtaining pro-calcitonin level patient received 1 dose of Rocephin and azithromycin which she is not being continued at this time. Patient does have multiple other medical problems including peripheral neuropat hy, SLE for which patient uses hydroxychloroquine. Patient denied any nausea vomiting diarrhea. Patient does use Lasix 80 mg daily at home. She does have obesity hypoventilation syndrome and sleep apnea for which patient uses oxygen at home patient is on 4 L of oxygen at baseline. 02/16/2022 Patient is currently resting in the bed. Awake alert and oriented x3. Requiring oxygen at 4 L via nasal cannula which she is at home. Denies any complaints of chest pain or worsening shortness of breath. Complains of nausea. No episodes of vomiting. No diarrhea. Patient is being current dexamethasone, Lovenox and supportive therapy. Also on IV fluids with normal saline at 75 cc/h. Laboratory data pending at this time. 02/17/2022 Patient is currently lying in bed. Awake alert and oriented. Requiring 4 L of oxygen by nasal cannula. Symptomatically improving. Able to sit up in the chair this morning. No complaints of chest pain. No nausea vomiting or abdominal pain or diarrhea. Tolerating oral diet. Patient didn't have any bowel movement. Otherwise blood sugar is elevated to greater than 400. Next and urine cultures showing gram-negative bacilli.. Multidrug resistant. Patient is Asymptomatic otherwise. No infra antibiotic as per ID. Patient was started on insulin management and follow blood sugars closely. Continue on dexamethasone.. Laboratory data showed sodium 134 bicarbonate 14.4 BUN 44.3 and creatinine 1.9 and blood sugar is 495. Current medications reviewed. Objective - Vital Signs Vital signs: Vital Signs Temp 98.6 F 02/17/22 14:00 Pulse 68 02/17/22 18:14 Resp 18 02/17/22 18:14 BP 137/70 02/17/22 18:14 Pulse Ox 97 02/17/22 18:14 FiO2 Intake & Output 02/16/22 02/17/22 02/17/22 19:59 06:59 18:59 Intake Total Balance Intake: IV Sodium Chloride 0.9% 1, 000 ml @ 75 mls/hr IV . [id number] [facility] Rx#:[id number] Other: Voiding Method Toilet # Voids - Exam PHYSICAL EXAMINATION: Patient is lying in the bed comfortably, no acute distress, awake alert and orie nted.. HEENT: Normocephalic. Neck is supple. Pupils reactive. Nostrils clear. Oral cavity is moist. Neck reveals no JVD, carotid bruits, or thyromegaly. CHEST EXAMINATION: Trachea is central. Symmetrical expansion. Bibasilar diminished sounds. Mild expiratory wheeze.. Nonlabored breathing.. CARDIAC: Normal S1, S2 with no gallops. No murmurs ABDOMEN: Soft. Bowel sounds present. Nontender. No organomegaly. No abdominal bruits. Extremities: reveal no edema. No clubbing or cyanosis Neurologically awake, alert, oriented x3 with well-coordinated movements. No focal deficits noted Skin: No rash or skin lesions. Psychiatric: Coperative. Nonsuicidal, Musculoskeletal: No joint swelling or deformity. Normal range of motion. - Labs CBC & Chem 7: 02/19/22 09:11 02/19/22 09:11 Labs: Abnormal Lab Results - Last 24 Hours (Table) 02/17/22 02/17/22 02/17/22 Range/Units 12:15 12:15 12:15 RBC 3.63 L (4.10-5.20) X 10*6/uL Hgb 9.6 L (12.0-15.0) g/dL Hct 30.2 L (37.2-46.3) % MCH 26.4 L (27.0-32.0) pg MCHC 31.8 L (32.0-37.0) g/dL Immature Gran # 0.06 H (0.00-0.04) X 10*3/uL Neutrophils # 8.11 H (1.80-7.70) X 10*3/uL Lymphocytes # 0.80 L (0.90-5.00) X 10*3/uL Eosinophils # 0.01 L (0.04-0.35) X 10*3/uL Sodium 133 L 134 L (135-145) mmol/L Carbon Dioxide 14.4 L 14.4 L (20.0-27.5) mmol/L BUN 43.9 H 44.3 H (9.0-27.0) mg/dL Creatinine 1.9 H 1.9 H (0.6-1.5) mg/dL Est GFR (CKD-EPI)AfAm 33.8 L 34.5 L (60.0-200.0) Est GFR (CKD-EPI)NonAf 29.2 L 29.7 L (60.0-200.0) BUN/Creatinine Ratio 23.11 H 23.69 H (12.00-20.00) Ratio Glucose 485 H 495 H (70-110) mg/dL POC Glucose (mg/dL) (70-110) mg/dL Hemoglobin A1c (0.0-6.0) % Calcium 8.4 L 8.5 L (8.7-10.3) mg/dL C-Reactive Protein 8.20 H (0.00-0.80) mg/dL 02/17/22 02/17/22 02/17/22 Range/Units 12:15 12:19 16:37 RBC (4.10-5.20) X 10*6/uL Hgb (12.0-15.0) g/dL Hct (37.2-46.3) % MCH (27.0-32.0) pg MCHC (32.0-37.0) g/dL Immature Gran # (0.00-0.04) X 10*3/uL Neutrophils # (1.80-7.70) X 10*3/uL Lymphocytes # (0.90-5.00) X 10*3/uL Eosinophils # (0.04-0.35) X 10*3/uL Sodium (135-145) mmol/L Carbon Dioxide (20.0-27.5) mmol/L BUN (9.0-27.0) mg/dL Creatinine (0.6-1.5) mg/dL Est GFR (CKD-EPI)AfAm (60.0-200.0) Est GFR (CKD-EPI)NonAf (60.0-200.0) BUN/Creatinine Ratio (12.00-20.00) Ratio Glucose (70-110) mg/dL POC Glucose (mg/dL) 477 H 555 H (70-110) mg/dL Hemoglobin A1c 12.3 H (0.0-6.0) % Calcium (8.7-10.3) mg/dL C-Reactive Protein (0.00-0.80) mg/dL Microbiology - Last 24 Hours (Table) 02/14/22 23:45 Blood Culture - Preliminary Blood No Growth after 48 hours 02/14/22 23:45 Blood Culture - Preliminary Blood No Growth after 48 hours 02/14/22 09:58 Urine Culture - Preliminary Urine,Voided Gram Neg Bacilli Assessment and Plan Assessment: Assessment and plan -Nausea and vomiting. Malaise weakness tiredness: Secondary to COVID-19 there is no clinical evidence of pneumonia .Symptoms for the past 1 week. Patient is not vaccinated. -Acute on chronic kidney disease stage III likely prerenal. -Hyperglycemia with uncontrolled diabetes type 2 -Non-anion gap metabolic acidosis secondary to hyperchloremia -Obesity hypoventilation syndrome, sleep apnea -History of SLE for which patient is on Plaquenil -Recently diagnosed history of ovarian cancer for which patient was started on chemotherapy yet -Peripheral neuropathy for which patient is on gabapentin dose of which need to be decreased because of poor renal function History of DVT for which patient is presently off anticoagulation -Hypertension -Hypothyroidism DVT prophylaxis: Lovenox Time with Patient: Greater than 30
--- NOTE | 2022-02-19 10:43 | P.PN ---
Subjective Progress Note Date: 02/18/22 Patient is a pleasant 56-year-old female with multiple medical problems and recently diagnosed ovarian cancer for which patient haven't started on chemotherapy came in with complaints of generalized weakness and tiredness found to have COVID-19 patient was diagnosed with COVID-19 during abdomen weekend. Patient had a C. diff infection recently after using Augmentin. Patient the had a CT of the abdomen and pelvis which was read as possibly a septic emboli although it appears to be metastatic disease from the ovarian cancer is some nonspecific Infiltrates bilaterally but the no evidence of consolidation that is consistent with pneumonia. She doesn't have UTI symptoms but has mildly abnormal urine patient be N and creatinine are elevated creatinine is 2.55 baseline is around that. Patient takes Lasix at home patient doesn't have any evidence of for congestive heart failure at this time, no documented history of congestive heart failure no evidence of heart failure on the echocardiogram BNP is around 600, patient's serum bicarbonate is is low at 17 secondary to hyperchloremia. Obtaining pro-calcitonin level patient received 1 dose of Rocephin and azithromycin which she is not being continued at this time. Patient does have multiple other medical problems including peripheral neuropat hy, SLE for which patient uses hydroxychloroquine. Patient denied any nausea vomiting diarrhea. Patient does use Lasix 80 mg daily at home. She does have obesity hypoventilation syndrome and sleep apnea for which patient uses oxygen at home patient is on 4 L of oxygen at baseline. 02/16/2022 Patient is currently resting in the bed. Awake alert and oriented x3. Requiring oxygen at 4 L via nasal cannula which she is at home. Denies any complaints of chest pain or worsening shortness of breath. Complains of nausea. No episodes of vomiting. No diarrhea. Patient is being current dexamethasone, Lovenox and supportive therapy. Also on IV fluids with normal saline at 75 cc/h. Laboratory data pending at this time. 02/17/2022 Patient is currently lying in bed. Awake alert and oriented. Requiring 4 L of oxygen by nasal cannula. Symptomatically improving. Able to sit up in the chair this morning. No complaints of chest pain. No nausea vomiting or abdominal pain or diarrhea. Tolerating oral diet. Patient didn't have any bowel movement. Otherwise blood sugar is elevated to greater than 400. Next and urine cultures showing gram-negative bacilli.. Multidrug resistant. Patient is Asymptomatic otherwise. No infra antibiotic as per ID. Patient was started on insulin management and follow blood sugars closely. Continue on dexamethasone.. Laboratory data showed sodium 134 bicarbonate 14.4 BUN 44.3 and creatinine 1.9 and blood sugar is 495. 02/18/2022 Patient is currently sitting on side of the road. Generalized weakness and nausea and vomiting much improved. Able to tolerate oral diet. On oxygen at 4 L when nasal cannula which is her normal at home. No complaints of chest pain. Patient did have a bowel movement. No headache or dizziness like tightness. Renal function is improving. Continued on IV hydration. Otherwise pressure is still elevated. Patient states that she was on 100 units of Levemir previously and has not been taking at home. A1c went up to 12.1 Patient will be started on Levemir 35 units at bedtime and aspart 12 units 3 times a day before meals. Patient is also on Nexium was on 69 g daily. Pulmonary and ID is on board. Current medications reviewed. Objective - Vital Signs Vital signs: Vital Signs Temp 97.4 F L 02/18/22 11:55 Pulse 72 02/18/22 11:55 Resp 18 02/18/22 11:55 BP 127/63 02/18/22 11:55 Pulse Ox 93 L 02/18/22 11:55 FiO2 Intake & Output 02/17/22 02/18/22 02/18/22 18:59 06:59 18:59 Intake Total 48.841 627.632 Output Total 300 Balance -251.159 627.632 Weight 142.882 kg Intake: IV 600 Sodium Chloride 0.9% 1, 600 000 ml @ 75 mls/hr IV . [id number] [facility]ANIA Rx#:[id number] Intake, IV Titration 48.841 27.632 Amount Insulin Regular 100 unit 48.841 27.632 In Sodium Chloride 0.9% 100 ml @ Titrate IV .Q0M [facility]ANIA Rx#:[id number] Output: Urine 300 Other: Voiding Method Toilet Toilet # Voids 4 - Exam PHYSICAL EXAMINATION: Patient is lying in the bed comfortably, no acute distress, awake alert and oriented.. HEENT: Normocephalic. Neck is supple. Pupils reactive. Nostrils clear. Oral cavity is moist. Neck reveals no JVD, carotid bruits, or thyromegaly. CHEST EXAMINATION: Trachea is central. Symmetrical expansion. Bibasilar diminished sounds. Mild expiratory wheeze.. Nonlabored breathing.. CARDIAC: Normal S1, S2 with no gallops. No murmurs ABDOMEN: Soft. Bowel sounds present. Nontender. No organomegaly. No abdominal bruits. Extremities: reveal no edema. No clubbing or cyanosis Neurologically awake, alert, oriented x3 with well-coordinated movements. No focal deficits noted Skin: No rash or skin lesions. Psychiatric: Coperative. Nonsuicidal, Musculoskeletal: No joint swelling or deformity. Normal range of motion. - Labs CBC & Chem 7: 02/19/22 09:11 02/19/22 09:11 Labs: Abnormal Lab Results - Last 24 Hours (Table) 02/17/22 02/17/22 02/17/22 Range/Units 12:15 12:15 12:15 RBC 3.63 L (4.10-5.20) X 10*6/uL Hgb 9.6 L (12.0-15.0) g/dL Hct 30.2 L (37.2-46.3) % MCH 26.4 L (27.0-32.0) pg MCHC 31.8 L (32.0-37.0) g/dL Immature Gran # 0.06 H (0.00-0.04) X 10*3/uL Neutrophils # 8.11 H (1.80-7.70) X 10*3/uL Lymphocytes # 0.80 L (0.90-5.00) X 10*3/uL Eosinophils # 0.01 L (0.04-0.35) X 10*3/uL Sodium 133 L 134 L (135-145) mmol/L Chloride (98-107) mmol/L Carbon Dioxide 14.4 L 14.4 L (20.0-27.5) mmol/L BUN 43.9 H 44.3 H (9.0-27.0) mg/dL Creatinine 1.9 H 1.9 H (0.6-1.5) mg/dL Est GFR (CKD-EPI)AfAm 33.8 L 34.5 L (60.0-200.0) Est GFR (CKD-EPI)NonAf 29.2 L 29.7 L (60.0-200.0) BUN/Creatinine Ratio 23.11 H 23.69 H (12.00-20.00) Ratio Glucose 485 H 495 H (70-110) mg/dL POC Glucose (mg/dL) (70-110) mg/dL Hemoglobin A1c (0.0-6.0) % Calcium 8.4 L 8.5 L (8.7-10.3) mg/dL C-Reactive Protein 8.20 H (0.00-0.80) mg/dL 02/17/22 02/17/22 02/17/22 Range/Units 12:15 16:37 19:40 RBC (4.10-5.20) X 10*6/uL Hgb (12.0-15.0) g/dL Hct (37.2-46.3) % MCH (27.0-32.0) pg MCHC (32.0-37.0) g/dL Immature Gran # (0.00-0.04) X 10*3/uL Neutrophils # (1.80-7.70) X 10*3/uL Lymphocytes # (0.90-5.00) X 10*3/uL Eosinophils # (0.04-0.35) X 10*3/uL Sodium (135-145) mmol/L Chloride (98-107) mmol/L Carbon Dioxide (20.0-27.5) mmol/L BUN (9.0-27.0) mg/dL Creatinine (0.6-1.5) mg/dL Est GFR (CKD-EPI)AfAm (60.0-200.0) Est GFR (CKD-EPI)NonAf (60.0-200.0) BUN/Creatinine Ratio (12.00-20.00) Ratio Glucose (70-110) mg/dL POC Glucose (mg/dL) 555 H 552 H (70-110) mg/dL Hemoglobin A1c 12.3 H (0.0-6.0) % Calcium (8.7-10.3) mg/dL C-Reactive Protein (0.00-0.80) mg/dL 02/17/22 02/17/22 02/17/22 Range/Units 21:44 22:49 23:44 RBC (4.10-5.20) X 10*6/uL Hgb (12.0-15.0) g/dL Hct (37.2-46.3) % MCH (27.0-32.0) pg MCHC (32.0-37.0) g/dL Immature Gran # (0.00-0.04) X 10*3/uL Neutrophils # (1.80-7.70) X 10*3/uL Lymphocytes # (0.90-5.00) X 10*3/uL Eosinophils # (0.04-0.35) X 10*3/uL Sodium (135-145) mmol/L Chloride (98-107) mmol/L Carbon Dioxide (20.0-27.5) mmol/L BUN (9.0-27.0) mg/dL Creatinine (0.6-1.5) mg/dL Est GFR (CKD-EPI)AfAm (60.0-200.0) Est GFR (CKD-EPI)NonAf (60.0-200.0) BUN/Creatinine Ratio (12.00-20.00) Ratio Glucose (70-110) mg/dL POC Glucose (mg/dL) 476 H 441 H 398 H (70-110) mg/dL Hemoglobin A1c (0.0-6.0) % Calcium (8.7-10.3) mg/dL C-Reactive Protein (0.00-0.80) mg/dL 02/18/22 02/18/22 02/18/22 Range/Units 00:48 01:44 02:45 RBC (4.10-5.20) X 10*6/uL Hgb (12.0-15.0) g/dL Hct (37.2-46.3) % MCH (27.0-32.0) pg MCHC (32.0-37.0) g/dL Immature Gran # (0.00-0.04) X 10*3/uL Neutrophils # (1.80-7.70) X 10*3/uL Lymphocytes # (0.90-5.00) X 10*3/uL Eosinophils # (0.04-0.35) X 10*3/uL Sodium (135-145) mmol/L Chloride (98-107) mmol/L Carbon Dioxide (20.0-27.5) mmol/L BUN (9.0-27.0) mg/dL Creatinine (0.6-1.5) mg/dL Est GFR (CKD-EPI)AfAm (60.0-200.0) Est GFR (CKD-EPI)NonAf (60.0-200.0) BUN/Creatinine Ratio (12.00-20.00) Ratio Glucose (70-110) mg/dL POC Glucose (mg/dL) 272 H 197 H 132 H (70-110) mg/dL Hemoglobin A1c (0.0-6.0) % Calcium (8.7-10.3) mg/dL C-Reactive Protein (0.00-0.80) mg/dL 02/18/22 02/18/22 02/18/22 Range/Units 03:44 04:45 05:51 RBC (4.10-5.20) X 10*6/uL Hgb (12.0-15.0) g/dL Hct (37.2-46.3) % MCH (27.0-32.0) pg MCHC (32.0-37.0) g/dL Immature Gran # (0.00-0.04) X 10*3/uL Neutrophils # (1.80-7.70) X 10*3/uL Lymphocytes # (0.90-5.00) X 10*3/uL Eosinophils # (0.04-0.35) X 10*3/uL Sodium (135-145) mmol/L Chloride (98-107) mmol/L Carbon Dioxide (20.0-27.5) mmol/L BUN (9.0-27.0) mg/dL Creatinine (0.6-1.5) mg/dL Est GFR (CKD-EPI)AfAm (60.0-200.0) Est GFR (CKD-EPI)NonAf (60.0-200.0) BUN/Creatinine Ratio (12.00-20.00) Ratio Glucose (70-110) mg/dL POC Glucose (mg/dL) 127 H 151 H 167 H (70-110) mg/dL Hemoglobin A1c (0.0-6.0) % Calcium (8.7-10.3) mg/dL C-Reactive Protein (0.00-0.80) mg/dL 02/18/22 02/18/22 02/18/22 Range/Units 06:44 07:55 08:01 RBC 3.43 L (4.10-5.20) X 10*6/uL Hgb 9.1 L D (12.0-15.0) g/dL Hct 28.2 L (37.2-46.3) % MCH (27.0-32.0) pg MCHC (32.0-37.0) g/dL Immature Gran # (0.00-0.04) X 10*3/uL Neutrophils # (1.80-7.70) X 10*3/uL Lymphocytes # (0.90-5.00) X 10*3/uL Eosinophils # (0.04-0.35) X 10*3/uL Sodium (135-145) mmol/L Chloride (98-107) mmol/L Carbon Dioxide (20.0-27.5) mmol/L BUN (9.0-27.0) mg/dL Creatinine (0.6-1.5) mg/dL Est GFR (CKD-EPI)AfAm (60.0-200.0) Est GFR (CKD-EPI)NonAf (60.0-200.0) BUN/Creatinine Ratio (12.00-20.00) Ratio Glucose (70-110) mg/dL POC Glucose (mg/dL) 157 H 136 H (70-110) mg/dL Hemoglobin A1c (0.0-6.0) % Calcium (8.7-10.3) mg/dL C-Reactive Protein (0.00-0.80) mg/dL 02/18/22 02/18/22 02/18/22 Range/Units 08:01 10:10 11:11 RBC (4.10-5.20) X 10*6/uL Hgb (12.0-15.0) g/dL Hct (37.2-46.3) % MCH (27.0-32.0) pg MCHC (32.0-37.0) g/dL Immature Gran # (0.00-0.04) X 10*3/uL Neutrophils # (1.80-7.70) X 10*3/uL Lymphocytes # (0.90-5.00) X 10*3/uL Eosinophils # (0.04-0.35) X 10*3/uL Sodium (135-145) mmol/L Chloride 112 H (98-107) mmol/L Carbon Dioxide 19 L (20.0-27.5) mmol/L BUN 43 H (9.0-27.0) mg/dL Creatinine 1.65 H (0.6-1.5) mg/dL Est GFR (CKD-EPI)AfAm (60.0-200.0) Est GFR (CKD-EPI)NonAf (60.0-200.0) BUN/Creatinine Ratio (12.00-20.00) Ratio Glucose 124 H (70-110) mg/dL POC Glucose (mg/dL) 116 H 190 H (70-110) mg/dL Hemoglobin A1c (0.0-6.0) % Calcium (8.7-10.3) mg/dL C-Reactive Protein (0.00-0.80) mg/dL 02/18/22 Range/Units 12:07 RBC (4.10-5.20) X 10*6/uL Hgb (12.0-15.0) g/dL Hct (37.2-46.3) % MCH (27.0-32.0) pg MCHC (32.0-37.0) g/dL Immature Gran # (0.00-0.04) X 10*3/uL Neutrophils # (1.80-7.70) X 10*3/uL Lymphocytes # (0.90-5.00) X 10*3/uL Eosinophils # (0.04-0.35) X 10*3/uL Sodium (135-145) mmol/L Chloride (98-107) mmol/L Carbon Dioxide (20.0-27.5) mmol/L BUN (9.0-27.0) mg/dL Creatinine (0.6-1.5) mg/dL Est GFR (CKD-EPI)AfAm (60.0-200.0) Est GFR (CKD-EPI)NonAf (60.0-200.0) BUN/Creatinine Ratio (12.00-20.00) Ratio Glucose (70-110) mg/dL POC Glucose (mg/dL) 250 H (70-110) mg/dL Hemoglobin A1c (0.0-6.0) % Calcium (8.7-10.3) mg/dL C-Reactive Protein (0.00-0.80) mg/dL Microbiology - Last 24 Hours (Table) 02/14/22 23:45 Blood Culture - Preliminary Blood No Growth after 72 hours 02/14/22 23:45 Blood Culture - Preliminary Blood No Growth after 72 hours 02/14/22 09:58 Urine Culture - Final Urine,Voided Klebsiella pneumoniae Assessment and Plan Assessment: Assessment and plan -Nausea and vomiting. Malaise weakness tiredness: Secondary to COVID-19 there is no clinical evidence of pneumonia .Symptoms for the past 1 week. Patient is not vaccinated. -Acute on chronic kidney disease stage III likely prerenal. -Hyperglycemia with uncontrolled diabetes type 2 -Non-anion gap metabolic acidosis secondary to hyperchloremia -Obesity hypoventilation syndrome, sleep apnea -History of SLE for which patient is on Plaquenil -Recently diagnosed history of ovarian cancer for which patient was started on chemotherapy yet -Peripheral neuropathy for which patient is on gabapentin dose of which need to be decreased because of poor renal function -History of DVT for which patient is presently off anticoagulation -Hypertension -Hypothyroidism DVT prophylaxis: Lovenox Plan: Patient will be continued on DuoNeb's and dexamethasone. Currently IV hydration and monitor renal function. Patient was started on insulin regimen and titrate dose as needed. May need PTOT. Continue with supportive care and follow closely. ID and pulmonary is on board Time with Patient: Greater than 30
[2022-02-19 11:45] LABS: Glucose,Whole Blood 95 mg/dL (70-110)
--- NOTE | 2022-02-19 14:22 | P.PN ---
Subjective Progress Note Date: 02/19/22 Principal diagnosis: acute COVID-19 pneumonia 56-year-old female seen in the emergency room, room 17. She presented initially on February 14, complaining of nausea, vomiting, and diarrhea. She has a history of hypertension, heart failure, stage III chronic kidney disease, diabetes, Graves' disease, DVT, uterine cancer, and severe asthma. She sees my partner, for her asthma. She apparently tested positive for coronavirus on February 11. Since that time, she is complaining of weakness, and ongoing nausea, vomiting, and diarrhea. She also complains of some abdominal cramping, as well as some mild shortness of breath. No chest pain. No fever or chills. No genitourinary complaints. She was recent diagnosis having stage I uterine cancer, by Dr. Mary Bustamante. Currently, the patient is on 4 L of oxygen here in the ICU, which is what she uses at home. She is on vaccinated. She's not receiving any IV fluids. White count 7.9, hemoglobin 11.7, hematocrit 35.4, and platelet count 317,000. Sodium 145, potassium 4, chlorides 105, CO2 17, anion gap 23, BUN 50, and creatinine 2.55. His electrolytes are consistent with an anion gap metabolic acidosis. I do not know what her baseline he went and creatinine are but I suspect, these are higher. AST 38, N-terminal proBNP 641. Urine is yellow and cloudy, with 4+ glucose and trace ketones. Nitrite was p ositive, and leukocyte esterase was large positive. She was 29 WBCs, and few bacteria in her urine. Repeat coronavirus testing, was positive. Chest x-ray apparently shows an extensive infiltrate in the left lower lobe. I cannot pull up the x-rays myself. Computed tomography scan of the chest reveals bilateral patchy multifocal pulmonary infiltrates. These infiltrates are new compared to a CAT scan done on December 22 of this year. Progress note dated 02/16/2022. The patient is seen in room 460. She was sleeping. She was in no distress. She's currently on 4 L of oxygen. She's getting saline at 75 mL an hour. The patient was initially seen in the emergency department. She came in primarily with nausea, vomiting, and diarrhea. She also had dehydration. She really wasn't complaining much about respiratory issues. No new labs today. Labs from February 14 are reviewed. Blood cultures are currently pending or negative. Urine cultures are negative are pending. Progress note dated 02/17/2022. 56-year-old female seen in room 460. Currently, the patient's on 4 L of oxygen. She's getting saline at 75 mL an hour. She does asked for something for cough. I prescribed strength Tessalon Perles, 200 mg 3 times a day. She feels much improved. She is resting comfortably. No respiratory difficulty. No new labs other than a blood glucose of 477. Urine is showing some evidence of gram- negative bacilli. It is yet to be identified. Reevaluated today on 02/18/22, patient is requiring oxygen at 4 L, O2 sats is 94%, chest x-ray clearly showed evidence of extensive infiltrates especially in the left lower lobe, and she was also found to have widening of the mediastinum with increased density at the pulmonary yvonne. Consistent with COVID-[address] of the chest did show evidence of bilateral multifocal infiltrates. Again consistent with COVID-19 pneumonia. Surprisingly, the patient is feeling better clinically, she is on 4 L nasal cannula with O2 sat showed 93%. WBC count is 9.5 hemoglobin is 9.1 electrolytes are normal BUN is 43 creatinine 1.65, improving since admission. Patient presented mostly with GI symptoms on presentation, however her GI symptoms have significantly improved. She did have a positive urine culture growing resistant Klebsiella however the patient is asymptomatic. And this is being addressed by infectious disease, felt no need for antibiotics. Reevaluated today on 02/19/22, patient is feeling much better, she is asking to be discharged home. Her x-ray clearly showed bilateral pneumonia consistent with COVID-19 pneumonia, surprisingly the patient is doing better than expected she is only on 4 L nasal cannula and she is normally at home on 4 L nasal cannula for her underlying COPD. Patient normally sees Dr. Jarquin. I feel the patient could be discharged home on the COVID-19 cocktail, and she could have outpatient follow-up with Dr. Jarquin in the next one week. Patient to resume her home bronchodilators, oxygen, and should have close follow-up in the next 2 weeks. Objective - Vital Signs Vital signs: Vital Signs Temp 98.0 F 02/19/22 09:37 Pulse 74 02/19/22 09:37 Resp 20 02/19/22 09:37 BP 122/77 02/19/22 09:37 Pulse Ox 94 L 02/19/22 09:37 FiO2 Intake & Output 02/18/22 02/19/22 02/19/22 18:59 06:59 18:59 Intake Total 1367.139 375 0 Output Total 0 Balance 1367.139 375 0 Weight 142.882 kg 142.882 kg Intake: IV 1200 Sodium Chloride 0.9% 1, 1200 000 ml @ 75 mls/hr IV . [id number] [facility]AN[facility] Rx#:[id number] Intake, IV Titration 47.139 375 Amount Insulin Regular 100 unit 47.139 In Sodium Chloride 0.9% 100 ml @ Titrate IV .Q0M [facility]ANIA Rx#:[id number] Sodium Chloride 0.9% 1, 375 000 ml @ 75 mls/hr IV . [id number] [facility]ANIA Rx#:[id number] Oral 120 0 Output: Gastric Drainage 0 Urine 0 Oral Regurgitation 0 Other: Voiding Method Toilet Toilet # Voids 0 # Bowel Movements 1 0 - Exam Physical Exam: Revealed a 56-year-old female in no distress. On 4 L nasal cannula looks extremely comfortable. Head: Atraumatic, normocephalic. ENT: PERRLA, EOMI, anicteric, no neck masses Chest: [Diminished breath sounds at the bases no crackles or rhonchi or wheezes Cardiac Exam: [Normal S1 and S2, no S3 gallop, no murmur.] Abdomen: [Soft, nontender, no megaly, no rebound, no guarding, normal bowel sounds.] Extremities: [No clubbing, no edema, no cyanosis.] Neurological Exam: [No focal neurologic deficit.] Cardiac: Normal mood affect and normal mental status examination. Skin: No rashes - Labs CBC & Chem 7: 02/19/22 09:11 02/19/22 09:11 Labs: Abnormal Lab Results - Last 24 Hours (Table) 02/18/22 02/18/22 02/18/22 Range/Units 08:01 14:23 17:05 WBC (3.8-10.6) k/uL Hgb (11.4-16.0) gm/dL Hct (34.0-46.0) % Neutrophils # (1.3-7.7) k/uL Chloride (98-107) mmol/L Carbon Dioxide (22-30) mmol/L BUN (7-17) mg/dL Creatinine (0.52-1.04) mg/dL Glucose (74-99) mg/dL POC Glucose (mg/dL) 247 H 125 H (70-110) mg/dL Hemoglobin A1c 12.0 H (0.0-6.0) % 02/18/22 02/19/22 02/19/22 Range/Units 19:46 05:48 09:11 WBC 12.0 H (3.8-10.6) k/uL Hgb 11.1 L (11.4-16.0) gm/dL Hct 33.2 L (34.0-46.0) % Neutrophils # 8.5 H (1.3-7.7) k/uL Chloride (98-107) mmol/L Carbon Dioxide (22-30) mmol/L BUN (7-17) mg/dL Creatinine (0.52-1.04) mg/dL Glucose (74-99) mg/dL POC Glucose (mg/dL) 317 H 166 H (70-110) mg/dL Hemoglobin A1c (0.0-6.0) % 02/19/22 Range/Units 09:11 WBC (3.8-10.6) k/uL Hgb (11.4-16.0) gm/dL Hct (34.0-46.0) % Neutrophils # (1.3-7.7) k/uL Chloride 112 H (98-107) mmol/L Carbon Dioxide 19 L (22-30) mmol/L BUN 42 H (7-17) mg/dL Creatinine 1.52 H (0.52-1.04) mg/dL Glucose 115 H (74-99) mg/dL POC Glucose (mg/dL) (70-110) mg/dL Hemoglobin A1c (0.0-6.0) % Microbiology - Last 24 Hours (Table) 02/14/22 23:45 Blood Culture - Preliminary Blood No Growth after 96 hours 02/14/22 23:45 Blood Culture - Preliminary Blood No Growth after 96 hours 02/18/22 Unknown Stool Culture - Preliminary Stool Assessment and Plan Assessment: Impression: Acute on chronic hypoxic respiratory failure secondary to COVID-19 pneumonia, and underlying COPD Multiple GI issues/symptoms secondary to COVID-19 infection. History of severe underlying COPD, patient is on home O2 at 4 L at home. Asymptomatic bacteriuria History of chronic hypoxic respiratory failure Recent diagnosis of stage I uterine cancer Benign essential hypertension Chronic kidney disease stage III History of Graves' disease History of deep vein thrombosis History of leukemia Recommendation: We'll clear the patient to be discharged home on the COVID-19 cocktail, She'll ready has option at home with 4 L Continue her usual bronchodilators for underlying COPD Follow-up with Dr. Jarquin in 2 weeks Time with Patient: Less than 30
[2022-02-19 14:26] VITALS: BP 133/67; PULSE 82; RESP 18; TEMP 97.9
[2022-02-19] MEDS: SODIUM CHLORIDE 0.9% 1,000 ML IV SCH (14:27)
[2022-02-19] MEDS ORDERED: INSULIN ASPART (NovoLOG) 100 UNIT/ML VIAL SQ SCH (21:07)
== END 2022-02-19 15:55 | disposition home or self-care (01) | DRG 177 ==
LOC: EC 15:14 → 4SSUR 02-15 01:04 → 3SCARD 02-17 22:16
PROVIDERS: ADMIT Hospitalist; ATTEND Hospitalist
DX: U07.1 COVID-19 (principal); J12.82 Pneumonia due to coronavirus disease 2019; J96.21 Acute and chronic respiratory failure with hypoxia; I76 Septic arterial embolism; B37.89 Other sites of candidiasis; N17.9 Acute kidney failure, unspecified; C95.90 Leukemia, unspecified not having achieved remission; D84.821 Immunodeficiency due to drugs; I13.0 Hypertensive heart and chronic kidney disease with heart failure and stage 1 through stage 4 chronic kidney disease, or unspecified chronic kidney disease; Z68.43 Body mass index [BMI] 50.0-59.9, adult; E66.2 Morbid (severe) obesity with alveolar hypoventilation; N18.4 Chronic kidney disease, stage 4 (severe); J44.0 Chronic obstructive pulmonary disease with (acute) lower respiratory infection; C56.9 Malignant neoplasm of unspecified ovary; E87.20 Acidosis, unspecified; Z16.24 Resistance to multiple antibiotics; C55 Malignant neoplasm of uterus, part unspecified; M32.9 Systemic lupus erythematosus, unspecified; E11.42 Type 2 diabetes mellitus with diabetic polyneuropathy; I50.9 Heart failure, unspecified; E03.9 Hypothyroidism, unspecified; M06.9 Rheumatoid arthritis, unspecified; E87.8 Other disorders of electrolyte and fluid balance, not elsewhere classified; Z99.81 Dependence on supplemental oxygen; Z28.310 Unvaccinated for COVID-19; B96.1 Klebsiella pneumoniae [K. pneumoniae] as the cause of diseases classified elsewhere; R00.0 Tachycardia, unspecified; R82.71 Bacteriuria; E86.0 Dehydration; R82.90 Unspecified abnormal findings in urine; E11.65 Type 2 diabetes mellitus with hyperglycemia; E11.22 Type 2 diabetes mellitus with diabetic chronic kidney disease; Z79.899 Other long term (current) drug therapy; Z79.84 Long term (current) use of oral hypoglycemic drugs; Z79.51 Long term (current) use of inhaled steroids; Z79.52 Long term (current) use of systemic steroids; Z79.82 Long term (current) use of aspirin; Z79.4 Long term (current) use of insulin; Z88.6 Allergy status to analgesic agent; Z88.8 Allergy status to other drugs, medicaments and biological substances; Z88.1 Allergy status to other antibiotic agents; Z91.02 Food additives allergy status; Z88.7 Allergy status to serum and vaccine; Z86.718 Personal history of other venous thrombosis and embolism; Z86.19 Personal history of other infectious and parasitic diseases
CPT/HCPCS: 36415; 71046; 71250; 74176; 80048; 80053; 81001; 83036; 83615; 83690; 83735; 83880; 84145; 85025; 86140; 87040; 87045; 87046; 87077; 87086; 87186; 87502; 87635; 93005; 93306; 94640; 96361; 96365; 96367; 96375; 99285

== ENCOUNTER 2022-03-16 22:40 | Inpatient (IN) | payer MEDICARE ==
--- NOTE | 2022-03-16 23:04 | ED ---
Fall HPI - General Chief Complaint: Fall Stated Complaint: Fall Time Seen by Provider: 03/16/22 23:00 Source: patient, RN notes reviewed, old records reviewed Mode of arrival: EMS Limitations: no limitations - History of Present Illness Initial Comments: This is a 55-year-old year-old female to the emergency department for evaluation of fall. Patient is presenting for fall today. Fell off the couch and was unable to get up. Complaining of left hip pain. Could've deformity noted patient is morbidly obese vessels long complicated medical history. MD Complaint: fall -: minutes(s) Fall From: standing, out of bed When Fall Occurred: 1 hour [employer] Fall Witnessed: yes, by family Place Fall Occurred: home Loss of Consciousness: none Prolonged Down Time?: no Symptoms Prior to Fall: none Location: head Location - Extremities: Left: Thigh Severity: moderate Severity scale (1-10): 4 Quality: sharp Context: tripped/slipped Associated Symptoms: denies - Related Data Home Medications Medication Instructions Recorded Confirmed FLUoxetine HCL [PROzac] 20 mg PO BID 01/09/17 02/15/22 Gabapentin [Neurontin] 600 mg PO BID 01/09/17 02/15/22 Glimepiride [Amaryl] 4 mg PO BID 01/09/17 02/15/22 Hydroxychloroquine Sulfate 200 mg PO BID 01/09/17 02/15/22 [Plaquenil] Montelukast [Singulair] 10 mg PO DAILY 01/09/17 02/15/22 gemfibroziL [Lopid] 600 tab PO BID 01/09/17 02/15/22 hydrOXYzine HCL [Atarax] 25 mg PO QID 01/09/17 02/15/22 Albuterol Inhaler [Ventolin Hfa 2 puff INHALATION RT-Q4H PRN 01/14/17 02/15/22 Inhaler] Albuterol Nebulized [Ventolin 2.5 mg INHALATION RT-QID PRN 01/14/17 02/15/22 Nebulized] allopurinoL [Zyloprim] 100 mg PO BID 01/21/22 02/15/22 Aspirin EC [Ecotrin] 325 mg PO DAILY 02/15/22 02/15/22 Atorvastatin [Lipitor] 10 mg PO HS 02/15/22 02/15/22 Furosemide [Lasix] 80 mg PO DAILY 02/15/22 02/15/22 Metoprolol Succinate (ER) [Toprol 25 mg PO DAILY 02/15/22 02/15/22 XL] Metoprolol Succinate (ER) [Toprol 50 mg PO DAILY 02/15/22 02/15/22 XL] Ondansetron [Zofran] 4 mg PO Q12HR PRN 02/15/22 02/15/22 Pantoprazole [Protonix] 40 mg PO BID 02/15/22 02/15/22 Primidone [Mysoline] 50 mg PO HS 02/15/22 02/15/22 Previous Rx's Medication Instructions Recorded INSULIN ASPART (NovoLOG) [NovoLOG See Protocol SQ ACHS 30 Days #1 02/19/22 (formulary)] each Insulin Detemir (Levemir) [Levemir] 35 unit SQ HS 30 Days #1 each 02/19/22 dexAMETHasone [Decadron] 6 mg PO DAILY 5 Days #5 tablet 02/19/22 Fluticasone/Vilanterol [Breo 1 inhalation INHALATION BID 30 02/24/22 Ellipta 200-25 Mcg Inhaler] Days #1 each Allergies Allergy/AdvReac Type Severity Reaction Status Date / Time ciprofloxacin [From Cipro] Allergy Swelling Verified 02/15/22 08:24 diphenhydramine Allergy Swelling Verified 02/15/22 08:24 [From Benadryl] iodine Allergy Swelling Verified 02/15/22 08:24 propoxyphene Allergy Swelling Verified 02/15/22 08:24 [From Darvocet-N] red dye Allergy Swelling Verified 02/15/22 08:24 sulfacetamide Allergy Swelling Verified 02/15/22 08:24 [From Sulfamide] yellow dye Allergy Swelling Verified 02/15/22 08:24 FLU VACCINE? Allergy Unknown Uncoded 02/15/22 08:24 Review of Systems ROS Statement: Those systems with pertinent positive or pertinent negative responses have been documented in the HPI. ROS Other: All systems not noted in ROS Statement are negative. Past Medical History Past Medical History: Cancer, Diabetes Mellitus, Deep Vein Thrombosis (DVT), Hypertension, Renal Disease, Rheumatoid Arthritis (RA), Thyroid Disorder Additional Past Medical History / Comment(s): O2 @ 4L. SLE LUPUS. STAGE 3 KIDNEY DISEASE. Leukemia, GRAVES DZ , kidney stones, gout, ovarian cancer History of Any Multi-Drug Resistant Organisms: None Reported Past Surgical History: No Surgical Hx Reported Additional Past Surgical History / Comment(s): BILATERAL ARTHROSCOPY KNEES. D & C (MISCARRIAGES). Past Anesthesia/Blood Transfusion Reactions: No Reported Reaction Past Psychological History: No Psychological Hx Reported, Anxiety Smoking Status: Never smoker Past Alcohol Use History: None Reported Past Drug Use History: None Reported - Past Family History Mother Family Medical History: Congestive Heart Failure (CHF), Diabetes Mellitus Father Family Medical History: Congestive Heart Failure (CHF), Dialysis, Hypertension General Exam Limitations: no limitations General appearance: alert, in no apparent distress, obese Head exam: Present: atraumatic, normocephalic, normal inspection Eye exam: Present: normal appearance, PERRL, EOMI. Absent: scleral icterus, conjunctival injection, periorbital swelling ENT exam: Present: normal exam, mucous membranes moist Neck exam: Present: normal inspection. Absent: tenderness, meningismus, lymphadenopathy Respiratory exam: Present: normal lung sounds bilaterally. Absent: respiratory distress, wheezes, rales, rhonchi, stridor Cardiovascular Exam: Present: regular rate, normal rhythm, normal heart sounds. Absent: systolic murmur, diastolic murmur, rubs, gallop, clicks GI/Abdominal exam: Present: soft, normal bowel sounds. Absent: distended, tenderness, guarding, rebound, rigid Extremities exam: Present: normal inspection, full ROM, normal capillary refill. Absent: tenderness, pedal edema, joint swelling, calf tenderness Back exam: Present: normal inspection Neurological exam: Present: alert, oriented X3, CN II-XII intact Psychiatric exam: Present: normal affect, normal mood Skin exam: Present: warm, dry, intact, normal color. Absent: rash Course Vital Signs 03/16/22 22:51 Temperature 98.2 F Pulse Rate 74 Respiratory 16 Rate Blood Pressure 130/80 O2 Sat by Pulse 94 L Oximetry - Reevaluation(s) Reevaluation #1: 03/17/22 00:27 Medical records reviewed Reevaluation #2: 03/17/22 00:27 Patient's pain is improved Reevaluation #3: 03/17/22 00:27 Patient informed of results and questions answered Medical Decision Making - Medical Decision Making 56 female to the emergency department for evaluation patient since today for evaluation of fall fall with no traumatic injury. Patient can be discharged home - Radiology Data Radiology results: report reviewed (SX are x-ray left hip and pelvis is negative for traumatic injury), image reviewed Disposition Clinical Impression: Fall Disposition: HOME SELF-CARE Condition: Fair Instructions (If sedation given, give patient instructions): Fall Prevention for Older Adults (ED) Is patient prescribed a controlled substance at d/c from ED?: No Referrals: Fela Alicea MD [Primary Care Provider] - 1-2 days Time of Disposition: 00:40
--- NOTE | 2022-03-17 00:19 | XR ---
EXAMINATION TYPE: XR Hip LT and AP Pelvis DATE OF EXAM: 03/17/2022 COMPARISON: NONE HISTORY: Fall. Pain TECHNIQUE: 3 view FINDINGS: The pelvic ring is intact. The proximal left femur and hip joint are intact. No hip fractur e. Acetabulum is intact. IMPRESSION: Negative pelvis and left hip exam. No fracture seen.
--- NOTE | 2022-03-17 00:23 | XR ---
EXAMINATION TYPE: XR chest 1V DATE OF EXAM: 03/17/2022 COMPARISON: 02/14/2022 HISTORY: Chest pain TECHNIQUE: FINDINGS: Heart size is normal. No heart failure. Costophrenic angles are clear. Exam limited by robbie ent's size. No pleural effusion. IMPRESSION: Within the limitations of the exam there is no evidence of active cardiopulmonary disease . There is clearing of the atelectasis and infiltrates at the lung bases compared to old exam.
[2022-03-17] MEDS ORDERED: HYDROmorphone 1 MG/ML 1 ML SYRINGE IM STA (00:25)
[2022-03-17] MEDS ORDERED: SODIUM CHLORIDE 0.9% 1,000 ML IV ONE ×2 (01:56→05:42)
[2022-03-17] MEDS ORDERED: SODIUM CHLORIDE 0.9% 1,000 ML IV STA (01:56)
--- NOTE | 2022-03-17 01:56 | ED ---
Medical Decision Making - Medical Decision Making 56 female upon discharge was unable to stand up or move. Patient again persistent be significantly weak complaining of pain in the hip and back. Patient be admitted for PTOT and possible correction placement Disposition Clinical Impression: Fall, Weakness Disposition: ADMITTED IP TO THIS HOSP Condition: Fair Instructions (If sedation given, give patient instructions): Fall Prevention for Older Adults (ED) Is patient prescribed a controlled substance at d/c from ED?: No Referrals: Fela Alicea MD [Primary Care Provider] - 1-2 days Time of Disposition: 02:00
[2022-03-17 02:25] LABS: Basophils % (A) 0 %; Eosinophils # (A) 0.5 k/uL (0-0.7); Eosinophils % (A) 4 %; HCT 33.6 % (34.0-46.0); HGB 10.7 gm/dL (11.4-16.0); Hypochromasia Moderate; Lymphocytes # (A) 1.7 k/uL (1.0-4.8); Lymphocytes % (A) 13 %; MCH 27.6 pg (25.0-35.0); MCHC 31.8 g/dL (31.0-37.0); MCV 86.8 fL (80.0-100.0); Mean Platelet Volume 8.3; Monocytes # (A) 0.7 k/uL (0-1.0); Monocytes % (A) 5 %; Neutrophils # (A) 10.5 k/uL (1.3-7.7); Neutrophils % (A) 78 %; Platelet Count 345 k/uL (150-450); RBC 3.87 m/uL (3.80-5.40); RDW 14.4 % (11.5-15.5); WBC 13.6 k/uL (3.8-10.6)
[2022-03-17 02:44] LABS: Albumin 3.9 g/dL (3.5-5.0); Calcium 8.7 mg/dL (8.4-10.2); Magnesium 1.8 mg/dL (1.6-2.3); Total Bilirubin 0.4 mg/dL (0.2-1.3); Total Protein 6.7 g/dL (6.3-8.2)
[2022-03-17] MEDS ORDERED: INSULIN REGULAR 100 UNIT/ML VIAL (IM/SQ) SQ ONE (05:41)
[2022-03-17] MEDS ORDERED: INSULIN REGULAR 100 UNIT/ML VIAL (IV) IV ONE (05:41)
[2022-03-17] MEDS ORDERED: SODIUM CHLORIDE 0.9% 500 ML 500 ML IV ONE (05:42)
[2022-03-17] MEDS ORDERED: NON FORMULARY DRUG (Albuterol Inhaler 90 MCG Puff) INHALATION PRN (11:40)
[2022-03-17] MEDS ORDERED: DEXTROSE 50% SYRINGE 50 ML IVP PRN ×2 (11:41)
--- NOTE | 2022-03-17 11:51 | P.HPIM ---
History of Present Illness H&P Date: 03/17/22 History of present illness; patient is 56-year-old lady with past medical history significant for insulin-dependent diabetes mellitus, hypertension, hyperlipidemia presented to the ER because of fall. Patient was all right yesterday evening when while she was watching TV and trying to get out of her couch she lost her balance and fell on her buttocks. She didn't lose any consciousness. Patient denied any seizure-like activity. Patient had no prior episode of any bone. Patient did not hit her head. Because of this fall patient came to the ER. In the ER, initial lab work showed patient to have a white count of 13.6, hemoglobin of 10.7, sodium 134, potassium 6, anion gap 10, creatinine 1.69, initial glucose was elevated at 75. X-ray of left hip and pelvis are negative for any fractures. Patient was admitted for further evaluation and treatment REVIEW OF SYSTEMS: CONSTITUTIONAL: No fever, no malaise, no fatigue. HEENT: No recent visual problems or hearing problems. Denied any sore throat. CARDIOVASCULAR: No chest pain, orthopnea, PND, no palpitations, no syncope. PULMONARY: No shortness of breath, no cough, no hemoptysis. GASTROINTESTINAL: No diarrhea, no nausea, no vomiting, no abdominal pain. NEUROLOGICAL: No headaches, no weakness, no numbness. HEMATOLOGICAL: Denies any bleeding or petechiae. GENITOURINARY: Denies any burning micturition, frequency, or urgency. MUSCULOSKELETAL/RHEUMATOLOGICAL: Left hip pain ENDOCRINE: Denies any polyuria or polydipsia. The rest of the 14-point review of systems is negative. PHYSICAL EXAMINATION: GENERAL: The patient is alert and oriented x3, not in any acute distress. Well developed, well nourished. HEENT: Pupils are round and equally reacting to light. EOMI. No scleral icterus. No conjunctival pallor. Normocephalic, atraumatic. No pharyngeal erythema. No thyromegaly. CARDIOVASCULAR: S1 and S2 present. No murmurs, rubs, or gallops. PULMONARY: Chest is clear to auscultation, no wheezing or crackles. ABDOMEN: Soft, nontender, nondistended, normoactive bowel sounds. No palpable organomegaly. MUSCULOSKELETAL: No joint swelling or deformity. EXTREMITIES: No cyanosis, clubbing, or pedal edema. NEUROLOGICAL: Gross neurological examination did not reveal any focal deficits. SKIN: No rashes. Assessment and plan Fall Left hip pain Hyperglycemia Insulin dependent diabetes mellitus Hyponatremia Hyperkalemia Acute kidney injury Plan; Monitor vital signs Monitor CBC Ordered nephrotoxic agents. Continue IV fluids. Stat BMP ordered, depending upon potassium levels will initiate hyper kalemia protocol Start patient on Lantus 15 units twice a day and 15 units of NovoLog with meals in addition to sliding scale Consult nephrology Consult orthopedics PT and OT evaluation Continue pain management Past Medical History Past Medical History: Cancer, Diabetes Mellitus, Deep Vein Thrombosis (DVT), Hypertension, Renal Disease, Rheumatoid Arthritis (RA), Thyroid Disorder Additional Past Medical History / Comment(s): O2 @ 4L. SLE LUPUS. STAGE 3 KIDNEY DISEASE. Leukemia, GRAVES DZ , kidney stones, gout, ovarian cancer History of Any Multi-Drug Resistant Organisms: None Reported Past Surgical History: No Surgical Hx Reported Additional Past Surgical History / Comment(s): BILATERAL ARTHROSCOPY KNEES. D & C (MISCARRIAGES). Past Anesthesia/Blood Transfusion Reactions: No Reported Reaction Past Psychological History: No Psychological Hx Reported, Anxiety Smoking Status: Never smoker Past Alcohol Use History: None Reported Past Drug Use History: None Reported - Past Family History Mother Family Medical History: Congestive Heart Failure (CHF), Diabetes Mellitus Father Family Medical History: Congestive Heart Failure (CHF), Dialysis, Hypertension Medications and Allergies Home Medications Medication Instructions Recorded Confirmed Type FLUoxetine HCL [PROzac] 20 mg PO BID 01/09/17 03/17/22 History Gabapentin [Neurontin] 600 mg PO BID 01/09/17 03/17/22 History Glimepiride [Amaryl] 4 mg PO BID 01/09/17 03/17/22 History Hydroxychloroquine Sulfate 200 mg PO BID 01/09/17 03/17/22 History [Plaquenil] Montelukast [Singulair] 10 mg PO DAILY 01/09/17 03/17/22 History gemfibroziL [Lopid] 600 tab PO BID 01/09/17 03/17/22 History hydrOXYzine HCL [Atarax] 25 mg PO QID 01/09/17 03/17/22 History Albuterol Inhaler [Ventolin Hfa 2 puff INHALATION RT-Q4H PRN 01/14/17 03/17/22 History Inhaler] Albuterol Nebulized [Ventolin 2.5 mg INHALATION RT-QID PRN 01/14/17 03/17/22 History Nebulized] allopurinoL [Zyloprim] 100 mg PO BID 01/21/22 03/17/22 History Aspirin EC [Ecotrin] 325 mg PO DAILY 02/15/22 03/17/22 History Atorvastatin [Lipitor] 10 mg PO HS 02/15/22 03/17/22 History Furosemide [Lasix] 80 mg PO DAILY 02/15/22 03/17/22 History Metoprolol Succinate (ER) [Toprol 25 mg PO DAILY 02/15/22 03/17/22 History XL] Metoprolol Succinate (ER) [Toprol 50 mg PO DAILY 02/15/22 03/17/22 History XL] Ondansetron [Zofran] 4 mg PO Q12HR PRN 02/15/22 03/17/22 History Pantoprazole [Protonix] 40 mg PO BID 02/15/22 03/17/22 History Primidone [Mysoline] 50 mg PO HS 02/15/22 03/17/22 History INSULIN ASPART (NovoLOG) [NovoLOG See Protocol SQ ACHS 30 Days #1 02/19/22 03/17/22 Rx (formulary)] each Insulin Detemir (Levemir) [Levemir] 35 unit SQ HS 30 Days #1 each 02/19/22 03/17/22 Rx Fluticasone/Vilanterol [Breo 1 inhalation INHALATION BID 30 02/24/22 03/17/22 Rx Ellipta 200-25 Mcg Inhaler] Days #1 each Allergies Allergy/AdvReac Type Severity Reaction Status Date / Time ciprofloxacin [From Cipro] Allergy Swelling Verified 03/17/22 11:15 diphenhydramine Allergy Swelling Verified 03/17/22 11:15 [From Benadryl] iodine Allergy Swelling Verified 03/17/22 11:15 propoxyphene Allergy Swelling Verified 03/17/22 11:15 [From Darvocet-N] red dye Allergy Swelling Verified 03/17/22 11:15 sulfacetamide Allergy Swelling Verified 03/17/22 11:15 [From Sulfamide] yellow dye Allergy Swelling Verified 03/17/22 11:15 FLU VACCINE? Allergy Unknown Uncoded 03/17/22 11:15 Physical Exam Vitals: Vital Signs Temp Pulse Resp BP Pulse Ox 03/17/22 06:21 88 16 110/48 99 03/16/22 22:51 98.2 F 74 16 130/80 94 L Intake and Output 03/16/22 03/17/22 03/17/22 22:59 06:59 14:59 Other: Weight 138.346 kg Results CBC & Chem 7: 03/17/22 02:17 03/17/22 02:17 Labs: Abnormal Lab Results - Last 24 Hours (Table) 03/17/22 03/17/22 Range/Units 02:17 02:17 WBC 13.6 H (3.8-10.6) k/uL Hgb 10.7 L (11.4-16.0) gm/dL Hct 33.6 L (34.0-46.0) % Neutrophils # 10.5 H (1.3-7.7) k/uL Sodium 134 L (137-145) mmol/L Potassium 6.0 H (3.5-5.1) mmol/L Carbon Dioxide 21 L (22-30) mmol/L BUN 42 H (7-17) mg/dL Creatinine 1.69 H (0.52-1.04) mg/dL Glucose 705 H* (74-99) mg/dL Alkaline Phosphatase 203 H (38-126) U/L
[2022-03-17 13:03] LABS: Glucose,Whole Blood 407 mg/dL (70-110)
[2022-03-17] MEDS: INSULIN ASPART (NovoLOG) 100 UNIT/ML VIAL SQ SCH ×5 (13:09→20:44)
[2022-03-17] MEDS ORDERED: LORazepam 2 MG/ML INJ IV STA (14:13)
--- NOTE | 2022-03-17 14:23 | P.CNOR ---
History of Present Illness - [facility] Consult date: 03/17/22 History of present illness: The patient is a very pleasant 56-year-old female with multiple medical problems including morbid obesity and poorly controlled diabetes who is presently in the emergency department and is being admitted to internal medicine following a fall. According to the patient she fell last night and had immediate pain and an inability to ambulate on her left leg. At the time of my evaluation she is complaining of severe left hip pain. She says she is unable to ambulate. She denies prior history of left hip pain but does have issues with both of her knees. She has no other complaints. Past Medical History Past Medical History: Cancer, Diabetes Mellitus, Deep Vein Thrombosis (DVT), Hypertension, Renal Disease, Rheumatoid Arthritis (RA), Thyroid Disorder Additional Past Medical History / Comment(s): O2 @ 4L. SLE LUPUS. STAGE 3 KIDNEY DISEASE. Leukemia, GRAVES DZ , kidney stones, gout, ovarian cancer History of Any Multi-Drug Resistant Organisms: None Reported Past Surgical History: No Surgical Hx Reported Additional Past Surgical History / Comment(s): BILATERAL ARTHROSCOPY KNEES. D & C (MISCARRIAGES). Past Anesthesia/Blood Transfusion Reactions: No Reported Reaction Past Psychological History: No Psychological Hx Reported, Anxiety Smoking Status: Never smoker Past Alcohol Use History: None Reported Past Drug Use History: None Reported - Past Family History Mother Family Medical History: Congestive Heart Failure (CHF), Diabetes Mellitus Father Family Medical History: Congestive Heart Failure (CHF), Dialysis, Hypertension Medications and Allergies Home Medications Medication Instructions Recorded Confirmed Type FLUoxetine HCL [PROzac] 20 mg PO BID 01/09/17 03/17/22 History Gabapentin [Neurontin] 600 mg PO BID 01/09/17 03/17/22 History Glimepiride [Amaryl] 4 mg PO BID 01/09/17 03/17/22 History Hydroxychloroquine Sulfate 200 mg PO BID 01/09/17 03/17/22 History [Plaquenil] Montelukast [Singulair] 10 mg PO DAILY 01/09/17 03/17/22 History gemfibroziL [Lopid] 600 tab PO BID 01/09/17 03/17/22 History hydrOXYzine HCL [Atarax] 25 mg PO QID 01/09/17 03/17/22 History Albuterol Inhaler [Ventolin Hfa 2 puff INHALATION RT-Q4H PRN 01/14/17 03/17/22 History Inhaler] Albuterol Nebulized [Ventolin 2.5 mg INHALATION RT-QID PRN 01/14/17 03/17/22 History Nebulized] allopurinoL [Zyloprim] 100 mg PO BID 01/21/22 03/17/22 History Aspirin EC [Ecotrin] 325 mg PO DAILY 02/15/22 03/17/22 History Atorvastatin [Lipitor] 10 mg PO HS 02/15/22 03/17/22 History Furosemide [Lasix] 80 mg PO DAILY 02/15/22 03/17/22 History Metoprolol Succinate (ER) [Toprol 25 mg PO DAILY 02/15/22 03/17/22 History XL] Metoprolol Succinate (ER) [Toprol 50 mg PO DAILY 02/15/22 03/17/22 History XL] Ondansetron [Zofran] 4 mg PO Q12HR PRN 02/15/22 03/17/22 History Pantoprazole [Protonix] 40 mg PO BID 02/15/22 03/17/22 History Primidone [Mysoline] 50 mg PO HS 02/15/22 03/17/22 History INSULIN ASPART (NovoLOG) [NovoLOG See Protocol SQ ACHS 30 Days #1 02/19/22 03/17/22 Rx (formulary)] each Insulin Detemir (Levemir) [Levemir] 35 unit SQ HS 30 Days #1 each 02/19/22 03/17/22 Rx Fluticasone/Vilanterol [Breo 1 inhalation INHALATION BID 30 02/24/22 03/17/22 Rx Ellipta 200-25 Mcg Inhaler] Days #1 each Allergies Allergy/AdvReac Type Severity Reaction Status Date / Time ciprofloxacin [From Cipro] Allergy Swelling Verified 03/17/22 11:15 diphenhydramine Allergy Swelling Verified 03/17/22 11:15 [From Benadryl] iodine Allergy Swelling Verified 03/17/22 11:15 propoxyphene Allergy Swelling Verified 03/17/22 11:15 [From Darvocet-N] red dye Allergy Swelling Verified 03/17/22 11:15 sulfacetamide Allergy Swelling Verified 03/17/22 11:15 [From Sulfamide] yellow dye Allergy Swelling Verified 03/17/22 11:15 FLU VACCINE? Allergy Unknown Uncoded 03/17/22 11:15 Physical Examination The patient is in her hospital stretcher. She appears in moderate distress secondary to left hip pain. She is alert and able to answer questions. Her upper extremities are without deformity. On inspection of her left lower extremity there are no obvious deformities. She has tenderness and pain with any attempts of movement of the left hip. She is able to actively plantarflex and dorsiflex her toes. Results X-rays of the hip and pelvis show a possible nondisplaced reverse oblique subtrochanteric femur fracture on the left - Labs Labs: Abnormal Lab Results - Last 24 Hours (Table) 03/17/22 03/17/22 03/17/22 Range/Units 02:17 02:17 13:02 WBC 13.6 H (3.8-10.6) k/uL Hgb 10.7 L (11.4-16.0) gm/dL Hct 33.6 L (34.0-46.0) % Neutrophils # 10.5 H (1.3-7.7) k/uL Sodium 134 L (137-145) mmol/L Potassium 6.0 H (3.5-5.1) mmol/L Carbon Dioxide 21 L (22-30) mmol/L BUN 42 H (7-17) mg/dL Creatinine 1.69 H (0.52-1.04) mg/dL Glucose 705 H* (74-99) mg/dL POC Glucose (mg/dL) 407 H (70-110) mg/dL Alkaline Phosphatase 203 H (38-126) U/L H & H 03/17/22 Range/Units 02:17 Hgb 10.7 L (11.4-16.0) gm/dL Hct 33.6 L (34.0-46.0) % Result Diagrams: 03/17/22 02:17 03/17/22 02:17 Assessment and Plan Assessment: Possible nondisplaced reverse oblique left subtrochanteric femur fracture BMI 49.2 Poorly controlled diabetes Plan: The patient's x-rays show a possible nondisplaced hip fracture. I would like to obtain a computed tomography scan to rule out or confirm a fracture of her proximal femur. We discussed that if there is a femur fracture it would require stabilization with an intramedullary hip screw. She initially refused a computed tomography scan due to apprehension and anxiety of going into the gantry of the CT scanner, but after our discussion she agreed to obtain a computed tomography scan. Further recommendations following the computed tomography scan. If it does in fact show a fracture she will need surgical fixation once cleared. We will continue to follow.
--- NOTE | 2022-03-17 15:08 | CT ---
EXAMINATION TYPE: CT hip LT wo con DATE OF EXAM: 03/17/2022 COMPARISON: 02/14/2022 HISTORY: Abnormal X-ray Hip pain CT DLP: 1727.6 mGycm Automated exposure control for dose reduction was used. Images obtained from the upper left ilium to the subtrochanteric femur with no contrast. There is nondisplaced hairline fracture of the subtrochanteric left femur. The femoral neck is intact . The acetabulum is intact. No dislocation. No evidence of a soft tissue mass. IMPRESSION: Acute nondisplaced hairline subtrochanteric fracture of the left femur.
[2022-03-17 15:11] LABS: Basophils # (A) 0.1 k/uL (0-0.2); Basophils % (A) 0 %; Eosinophils # (A) 0.4 k/uL (0-0.7); Eosinophils % (A) 4 %; HCT 30.9 % (34.0-46.0); HGB 9.9 gm/dL (11.4-16.0); Hypochromasia Slight; Lymphocytes # (A) 1.8 k/uL (1.0-4.8); Lymphocytes % (A) 16 %; MCH 26.9 pg (25.0-35.0); MCHC 31.8 g/dL (31.0-37.0); MCV 84.5 fL (80.0-100.0); Mean Platelet Volume 8.6; Monocytes # (A) 0.3 k/uL (0-1.0); Monocytes % (A) 3 %; Neutrophils % (A) 74 %; Platelet Count 258 k/uL (150-450); RBC 3.66 m/uL (3.80-5.40); RDW 14.5 % (11.5-15.5); WBC 10.8 k/uL (3.8-10.6)
[2022-03-17 15:20] LABS: African American GFR (CKD) 38 (>60 ml/min/1.73 sqM); Anion Gap 10 mmol/L; Blood Urea Nitrogen 44 mg/dL (7-17); Calcium 8.6 mg/dL (8.4-10.2); Carbon Dioxide 19 mmol/L (22-30); Chloride 105 mmol/L (98-107); Glucose 396 mg/dL (74-99); Non-African American GFR(CKD) 33 (>60 ml/min/1.73 sqM); Potassium 5.3 mmol/L (3.5-5.1); Sodium 134 mmol/L (137-145)
[2022-03-17 17:12] LABS: Glucose,Whole Blood 383 mg/dL (70-110)
[2022-03-17] MEDS: PANTOPRAZOLE 40 MG TABLET PO SCH (18:12)
[2022-03-17] MEDS: HYDROcodone/APAP 5-325MG 1 EACH TAB PO PRN (18:15)
[2022-03-17 18:43] LABS: Appearance,Urine Cloudy (Clear); Bacteria,Urine Moderate /hpf; Bilirubin,Urine Negative (Negative); Blood,Urine Large (Negative); Budding Yeast,Urine Few /hpf; Color,Urine Light Yellow; Glucose,Urine (UA) 4+ (Negative); Hyaline Casts,Urine 3 /lpf (0-2); Ketones,Urine Negative (Negative); Leukocyte Esterase,Urine Large (Negative); Mucus,Urine Rare /hpf; Nitrite,Urine Negative (Negative); Protein,Urine Trace (Negative); RBC,Urine 141 /hpf (0-5); Specific Gravity,Urine 1.012 (1.001-1.035); Squamous Epithelial Cell,Urine 1 /hpf (0-4); Urobilinogen,Urine <2.0 mg/dL (<2.0); WBC,Urine 138 /hpf (0-5)
[2022-03-17 20:12] LABS: Glucose,Whole Blood 354 mg/dL (70-110)
[2022-03-17] MEDS: SYMBICORT 160-4.5 MCG INHALER INHALATION SCH (20:35)
[2022-03-17] MEDS: INSULIN DETEMIR (LEVEMIR) 100 UNIT/ML SYR SQ SCH (20:44)
[2022-03-17] MEDS: GABAPENTIN 300 MG CAP PO SCH (20:44)
[2022-03-17] MEDS: ATORVASTATIN 10 MG TAB PO SCH (20:44)
[2022-03-17] MEDS: FENOFIBRATE 160 MG TAB PO SCH (20:44)
[2022-03-17] MEDS: allopurinoL 100 MG TAB PO SCH (20:44)
[2022-03-17] MEDS: FLUoxetine HCL 20 MG CAP PO SCH (20:44)
[2022-03-17] MEDS: MORPHINE SULFATE 2 MG/ML SYRINGE IVP PRN (20:48)
[2022-03-17] MEDS: PRIMIDONE 50 MG TAB PO SCH (21:22)
[2022-03-18] MEDS: MORPHINE SULFATE 2 MG/ML SYRINGE IVP PRN ×3 (03:18→10:56)
[2022-03-18 07:26] LABS: Glucose,Whole Blood 299 mg/dL (70-110)
[2022-03-18] MEDS: SYMBICORT 160-4.5 MCG INHALER INHALATION SCH ×2 (08:11→19:48)
--- NOTE | 2022-03-18 08:21 | P.NPCON ---
History of Present Illness - Reason for Consult acute renal failure, chronic renal failure - History of Present Illness Reason for consultation: Acute kidney injury on chronic kidney disease History of present illness: Patient is a 56-year-old female seen in renal consultation for acute kidney injury on chronic kidney disease. Patient has chronic kidney disease stage IIIB with baseline creatinine 1.5-1.7 secondary to diabetic kidney disease. Patient also has history of lupus and is maintained on Plaquenil outpatient. Patient states she saw rheumatology a while back but now only follows with a primary care physician. Patient came to the hospital after she sustained a fall after losing her balance. She denies dizziness or syncopal episode. Patient states her blood sugars have been running high and she was recently started on insulin by her transfer coordinator. On admission her blood sugar was over 700. Patient received IV fluids but is currently off IV fluids. Blood glucose this morning w as 299. She has been voiding. She has seen blood in the urine and states that she was recently diagnosed with endometrial cancer and underwent D&C. She is following with oncology team out of [facility]. She scheduled to undergo left hip surgery today. Patient denies history of coronary artery disease. Patient states her father was on hemodialysis and had multiple cardiac rhythms. She denies vomiting or diarrhea. Vital signs are stable. General: No acute distress. HEENT: Head exam is unremarkable. LUNGS: Breath sounds decreased. HEART: Rate and Rhythm are regular. ABDOMEN: Soft, obese. EXTREMITITES: No edema. Past Medical History Past Medical History: Cancer, Diabetes Mellitus, Deep Vein Thrombosis (DVT), Hypertension, Renal Disease, Rheumatoid Arthritis (RA), Thyroid Disorder Additional Past Medical History / Comment(s): O2 @ 4L. SLE LUPUS. STAGE 3 KIDNEY DISEASE. Leukemia, GRAVES DZ , kidney stones, gout, ovarian cancer (recent diagnosis, no treatment yet) History of Any Multi-Drug Resistant Organisms: None Reported Past Surgical History: No Surgical Hx Reported Additional Past Surgical History / Comment(s): BILATERAL ARTHROSCOPY KNEES. D & C (MISCARRIAGES). Past Anesthesia/Blood Transfusion Reactions: No Reported Reaction Past Psychological History: Anxiety Smoking Status: Never smoker Past Alcohol Use History: None Reported Past Drug Use History: None Reported - Past Family History Mother Family Medical History: Congestive Heart Failure (CHF), Diabetes Mellitus Father Family Medical History: Congestive Heart Failure (CHF), Dialysis, Hypertension Medications and Allergies Home Medications Medication Instructions Recorded Confirmed Type FLUoxetine HCL [PROzac] 20 mg PO BID 01/09/17 03/17/22 History Gabapentin [Neurontin] 600 mg PO BID 01/09/17 03/17/22 History Glimepiride [Amaryl] 4 mg PO BID 01/09/17 03/17/22 History Hydroxychloroquine Sulfate 200 mg PO BID 01/09/17 03/17/22 History [Plaquenil] Montelukast [Singulair] 10 mg PO DAILY 01/09/17 03/17/22 History gemfibroziL [Lopid] 600 tab PO BID 01/09/17 03/17/22 History hydrOXYzine HCL [Atarax] 25 mg PO QID 01/09/17 03/17/22 History Albuterol Inhaler [Ventolin Hfa 2 puff INHALATION RT-Q4H PRN 01/14/17 03/17/22 History Inhaler] Albuterol Nebulized [Ventolin 2.5 mg INHALATION RT-QID PRN 01/14/17 03/17/22 History Nebulized] allopurinoL [Zyloprim] 100 mg PO BID 01/21/22 03/17/22 History Aspirin EC [Ecotrin] 325 mg PO DAILY 02/15/22 03/17/22 History Atorvastatin [Lipitor] 10 mg PO HS 02/15/22 03/17/22 History Furosemide [Lasix] 80 mg PO DAILY 02/15/22 03/17/22 History Metoprolol Succinate (ER) [Toprol 25 mg PO DAILY 02/15/22 03/17/22 History XL] Metoprolol Succinate (ER) [Toprol 50 mg PO DAILY 02/15/22 03/17/22 History XL] Ondansetron [Zofran] 4 mg PO Q12HR PRN 02/15/22 03/17/22 History Pantoprazole [Protonix] 40 mg PO BID 02/15/22 03/17/22 History Primidone [Mysoline] 50 mg PO HS 02/15/22 03/17/22 History INSULIN ASPART (NovoLOG) [NovoLOG See Protocol SQ ACHS 30 Days #1 02/19/22 03/17/22 Rx (formulary)] each Insulin Detemir (Levemir) [Levemir] 35 unit SQ HS 30 Days #1 each 02/19/22 03/17/22 Rx Fluticasone/Vilanterol [Breo 1 inhalation INHALATION BID 30 02/24/22 03/17/22 Rx Ellipta 200-25 Mcg Inhaler] Days #1 each Allergies Allergy/AdvReac Type Severity Reaction Status Date / Time ciprofloxacin [From Cipro] Allergy Swelling Verified 03/17/22 11:15 diphenhydramine Allergy Swelling Verified 03/17/22 11:15 [From Benadryl] iodine Allergy Swelling Verified 03/17/22 11:15 propoxyphene Allergy Swelling Verified 03/17/22 11:15 [From Darvocet-N] red dye Allergy Swelling Verified 03/17/22 11:15 sulfacetamide Allergy Swelling Verified 03/17/22 11:15 [From Sulfamide] yellow dye Allergy Swelling Verified 03/17/22 11:15 FLU VACCINE? Allergy Unknown Uncoded 03/17/22 11:15 Physical Exam Vitals: Vital Signs Temp Pulse Pulse Resp BP BP Pulse Ox 03/18/22 04:45 98.6 F 97 16 101/63 95 03/17/22 19:44 98 F 96 16 120/74 93 L 03/17/22 15:22 98.0 F 95 18 124/75 98 03/17/22 14:23 96 18 135/82 99 Intake and Output 03/17/22 03/18/22 03/18/22 22:59 06:59 14:59 Intake Total 240 Output Total 500 Balance 240 -500 Intake: Oral 240 Output: Urine 500 Other: Voiding Method External Catheter # Voids 1 Weight 138.346 kg Results - Lab Results Most recent lab results Calcium 8.6 mg/dL (8.4-10.2) 03/17/22 14:47 Phosphorus 4.0 mg/dL (2.5-4.5) 03/17/22 02:17 Magnesium 1.8 mg/dL (1.6-2.3) 03/17/22 02:17 03/17/22 14:47 03/17/22 14:47 Assessment and Plan Plan: Assessment: 1. Acute kidney injury mostly prerenal secondary to hypovolemia from severe hyperglycemia. Creatinine near 1.7 yesterday. 2. Chronic kidney disease stage IIIB secondary to diabetic kidney disease. 3. History of lupus maintained on Plaquenil outpatient. Patient's UA from 02/14/2022 showed only 1 RBC. 4. Pyuria. 5. Diabetes mellitus. Uncontrolled on admission. 6. Left femur fracture scheduled for surgery today. 7. Hyperkalemia secondary to hyperglycemia and acidosis. 8. Endometrial cancer being followed by oncology outpatient. Plan: Normal saline at 50 mL an hour. Add Rocephin. Check urine culture. Continue to hold diuretics. Avoid nephrotoxins. Check renal ultrasound. Blood sugar control. Morning labs pending. Thank you for the consultation. I will continue to follow patient with you during her hospital stay.
[2022-03-18] MEDS: PANTOPRAZOLE 40 MG TABLET PO SCH ×2 (08:27→22:18)
[2022-03-18] MEDS: METOPROLOL SUCCINATE (ER) 25 MG TAB.ER.24H PO SCH (08:28)
[2022-03-18] MEDS: ASPIRIN 325 MG TAB PO SCH (08:28)
[2022-03-18] MEDS: allopurinoL 100 MG TAB PO SCH ×2 (08:28→22:19)
[2022-03-18] MEDS: GABAPENTIN 300 MG CAP PO SCH ×2 (08:28→22:19)
[2022-03-18] MEDS: FLUoxetine HCL 20 MG CAP PO SCH ×2 (08:28→22:19)
[2022-03-18] MEDS: MONTELUKAST 10 MG TAB PO SCH (08:28)
[2022-03-18] MEDS: INSULIN ASPART (NovoLOG) 100 UNIT/ML VIAL SQ SCH ×7 (08:41→22:20)
[2022-03-18] MEDS: SODIUM CHLORIDE 0.9% 1,000 ML IV SCH (08:42)
[2022-03-18] MEDS: INSULIN DETEMIR (LEVEMIR) 100 UNIT/ML SYR SQ SCH ×2 (08:42→21:50)
[2022-03-18 08:49] LABS: African American GFR (CKD) 47 (>60 ml/min/1.73 sqM); Anion Gap 8 mmol/L; Blood Urea Nitrogen 35 mg/dL (7-17); Calcium 8.7 mg/dL (8.4-10.2); Carbon Dioxide 25 mmol/L (22-30); Chloride 107 mmol/L (98-107); Glucose 297 mg/dL (74-99); Magnesium 1.7 mg/dL (1.6-2.3); Non-African American GFR(CKD) 41 (>60 ml/min/1.73 sqM); Potassium 4.9 mmol/L (3.5-5.1); Sodium 140 mmol/L (137-145)
[2022-03-18] MEDS ORDERED: METOPROLOL SUCCINATE 25 MG PO SCH (09:00)
--- NOTE | 2022-03-18 09:07 | US ---
EXAMINATION TYPE: US kidneys/renal and bladder DATE OF EXAM: 03/18/2022 COMPARISON: CT CLINICAL HISTORY: paul. EXAM MEASUREMENTS: Right Kidney: not visualized Left Kidney:13.3 X 6.7 X 6.1 cm Patient unable to move from LLD position due to broken hip and extreme pain. Unable to scan right kid luke or bladder. Patient morbidly obese, limited study. Right Kidney: not visualized Left Kidney: No hydronephrosis or masses seen, measures large Bladder: not visualized There is no evidence for hydronephrosis at this point in time. No nephrolithiasis is seen. No karley s are identified. The urinary bladder is anechoic. Bilateral ureteral jets are seen. IMPRESSION: No significant abnormality appreciated at this time.
[2022-03-18] MEDS ORDERED: MAGNESIUM SULFATE-D5W PMX 1 GM in DEXTROSE/WATER 1 100ML.BAG IVPB ONE (11:04)
[2022-03-18 11:09] LABS: Glucose,Whole Blood 286 mg/dL (70-110)
[2022-03-18] MEDS ORDERED: ONDANSETRON 4 MG/2 ML VIAL IVP ONE ×2 (11:56→20:01)
[2022-03-18] MEDS ORDERED: DEXAMETHASONE SOD PHOSPHATE 4 MG/ML 1 ML VIAL IV ONE (11:56)
[2022-03-18] MEDS: LACTATED RINGERS 1,000 ML IV SCH (12:14)
--- NOTE | 2022-03-18 15:45 | P.PN ---
Subjective History of present illness; patient is 56-year-old lady with past medical history significant for insulin-dependent diabetes mellitus, hypertension, hyperlipidemia presented to the ER because of fall. Patient was all right yesterday evening when while she was watching TV and trying to get out of her couch she lost her balance and fell on her buttocks. She didn't lose any consciousness. Patient denied any seizure-like activity. Patient had no prior episode of any bone. Patient did not hit her head. Because of this fall patient came to the ER. In the ER, initial lab work showed patient to have a white count of 13.6, hemoglobin of 10.7, sodium 134, potassium 6, anion gap 10, creatinine 1.69, initial glucose was elevated at 75. X-ray of left hip and pelvis are negative for any fractures. Patient was admitted for further evaluation and treatment 03/18/2022 Patient presents because of fall, patient states that she was watching TV and started up to turn off her TV when she felt dizzy lightheaded left spondylosis and fell on her left hip area suffering from hip fracture. Patient still complaining from pain about 9/10 in severity this morning in her left hip area with plan for left hip arthroplasty by surgery team Patient states that she is diabetic and she takes Levemir 50 units twice a day with insulin sliding scale now scheduled insulin with meals. Her biopharmaceutical rep is Dr. Valdivia. She denies chest pain or dyspnea, no headache or weakness or dizziness, no abdominal pain vomiting or diarrhea. Dysuria or urgency. she is on 4 litre of oxygen at home for chronic asthma and recurrent pneumonias, her pulmnoloigst is dr. garcia We will continue with Levemir 15 units twice a day and NovoLog 15 units with meals and I'll keep potential, after the procedure. She is hemodynamically stable. Creatinine is trending down 1.4 today. CBC is still pending. The sternum 1.7, we'll give 1 time dose of magnesium sulfide 1 g 1 because she is going for surgery Also she was placed on normal saline at 50 mL/h. Objective - Vital Signs Vital signs: Vital Signs Temp 99.1 F 03/18/22 11:10 Pulse 102 H 03/18/22 11:10 Resp 18 03/18/22 11:10 BP 120/73 03/18/22 11:10 Pulse Ox 98 03/18/22 11:10 FiO2 Intake & Output 03/17/22 03/18/22 03/18/22 18:59 06:59 18:59 Intake Total 240 Output Total 500 Balance -260 Weight 138.346 kg 138.346 kg Intake: Oral 240 Output: Urine 500 Other: Voiding Method External Catheter # Voids 1 - Exam -GENERAL: The patient is alert and oriented x3, not in any acute distress. Morbidly obese HEENT: Pupils are round and equally reacting to light. EOMI. No scleral icterus. No conjunctival pallor. Normocephalic, atraumatic. No pharyngeal erythema. No thyromegaly. CARDIOVASCULAR: S1 and S2 present. No murmurs, rubs, or gallops. PULMONARY: Chest is clear to auscultation, no wheezing or crackles. ABDOMEN: Soft, nontender, nondistended, normoactive bowel sounds. No palpable organomegaly. -MUSCULOSKELETAL: No joint swelling or deformity. Left hip tenderness EXTREMITIES: No cyanosis, clubbing, or pedal edema. NEUROLOGICAL: Gross neurological examination did not reveal any focal deficits. SKIN: No rashes. no petechiae. - Labs CBC & Chem 7: 03/17/22 14:47 03/18/22 08:22 Labs: Abnormal Lab Results - Last 24 Hours (Table) 03/17/22 03/17/22 03/17/22 Range/Units 01:56 14:47 17:10 BUN (7-17) mg/dL Creatinine (0.52-1.04) mg/dL Glucose (74-99) mg/dL POC Glucose (mg/dL) 383 H (70-110) mg/dL Hemoglobin A1c 14.0 H (0.0-6.0) % Urine Appearance Cloudy H (Clear) Urine Protein Trace H (Negative) Urine Glucose (UA) 4+ H (Negative) Urine Blood Large H (Negative) Ur Leukocyte Esterase Large H (Negative) Urine RBC 141 H (0-5) /hpf Urine WBC 138 H (0-5) /hpf Urine WBC Clumps Occasional H (None) /hpf Urine Bacteria Moderate H (None) /hpf Hyaline Casts 3 H (0-2) /lpf Urine Mucus Rare H (None) /hpf Urine Yeast (Budding) Few H (None) /hpf 03/17/22 03/18/22 03/18/22 Range/Units 20:10 07:19 08:22 BUN 35 H (7-17) mg/dL Creatinine 1.45 H (0.52-1.04) mg/dL Glucose 297 H (74-99) mg/dL POC Glucose (mg/dL) 354 H 299 H (70-110) mg/dL Hemoglobin A1c (0.0-6.0) % Urine Appearance (Clear) Urine Protein (Negative) Urine Glucose (UA) (Negative) Urine Blood (Negative) Ur Leukocyte Esterase (Negative) Urine RBC (0-5) /hpf Urine WBC (0-5) /hpf Urine WBC Clumps (None) /hpf Urine Bacteria (None) /hpf Hyaline Casts (0-2) /lpf Urine Mucus (None) /hpf Urine Yeast (Budding) (None) /hpf 03/18/22 Range/Units 11:08 BUN (7-17) mg/dL Creatinine (0.52-1.04) mg/dL Glucose (74-99) mg/dL POC Glucose (mg/dL) 286 H (70-110) mg/dL Hemoglobin A1c (0.0-6.0) % Urine Appearance (Clear) Urine Protein (Negative) Urine Glucose (UA) (Negative) Urine Blood (Negative) Ur Leukocyte Esterase (Negative) Urine RBC (0-5) /hpf Urine WBC (0-5) /hpf Urine WBC Clumps (None) /hpf Urine Bacteria (None) /hpf Hyaline Casts (0-2) /lpf Urine Mucus (None) /hpf Urine Yeast (Budding) (None) /hpf Assessment and Plan Assessment: Fall without losing consciousness but associated with lightheadedness and dizziness, most likely secondary to dehydration Left hip fracture with the plan for hip surgery by orthopedic team Diabetes mellitus with hyperglycemia, present on admission Severe dehydration with acute kidney injury present on admission, secondary to above Acute kidney injury Chronic hypoxic respiratory failure Asthma, not acute event History of recurrent pneumonia History of lupus on treatment Morbid obesity Plan: Continue with gentle hydration Continue with antibiotic and follow-up culture and sputum analysis Patient is planned for surgery today, patient is at some risk during the surgery but there is no absolute contraindication. Continue with Levemir 15 units and NovoLog 15 units with meals and insulin s liding scale. Patient will need preop evaluation, were going to consult for this reason pulmonary team Labs and medication were reviewed.. Continue same treatment. Continue with symptomatic treatment. Resume home medication. Monitor labs and vitals. DVT and GI prophylaxis. Further recommendations as per clinical course of the patient DVT prophylaxis: Subcutaneous heparin GI Prophylaxis: Pepcid PT/OT: Pending Prognosis is guarded
--- NOTE | 2022-03-18 16:29 | P.CNPUL ---
History of Present Illness Consult date: 03/18/22 Requesting physician: Oren Cunningham Reason for consult: dyspnea, asthma, COPD, hypoxemia Chief complaint: Preoperative clearance. History of present illness: Pulmonary consult dated 03/18/2022. 56-year-old obese female, who presented to the emergency department on March 16, having fallen at home. The patient fell off the couch was unable to get up. She was complaining of left hip pain. The patient was discovered to have a fractured hip, and is apparently going for surgery sometime later today. We were consulted for preoperative evaluation and clearance. The patient does have a history of severe asthma, and sees my partner for that. Her primary care provider is Dr. Alicea. She also sees Dr. Sparks for her kidney disease. The patient's currently on 4 L. She remains on 4 L. This is her home dose. The patient's getting saline at 50 mL an hour. She is a lifelong nonsmoker. The patient uses home oxygen at 4 L as well. She has a history of uterine cancer, diabetes, DVT, hypertension, rheumatoid arthritis, stage III kidney disease, kidney stones, and gout among other things. I saw her about a month ago here in the hospital for coronavirus infection, with primary GI issues including nausea, vomiting, etc. She did not have coronavirus associated pneumonia. White count 10.8, hemoglobin 9.9, hematocrit 30.9, and platelet count is normal. Sodium, potassium, chloride, CO2, and anion gap all normal. BUN 35, with a creatinine of 1.45. Urinalysis suggestive of possible urinary tract infection. Chest x- ray difficult to interpret. There appears to be no acute abnormality on chest x-ray, although her chest x-ray honestly because of body habitus, it is difficult to interpret. Review of Systems REVIEW OF SYSTEMS: CONSTITUTIONAL: [Negative.] NEUROLOGIC: [ Negative.] HEENT: [ Negative.] CARDIAC: [Negative.] PULMONARY: Chronic shortness of breath, at baseline. GI: [Negative.] : [Negative.] RHEUMATOLOGIC: Left hip pain. IMMUNOLOGIC: [ Negative.] ENDOCRINE: [Negative. ] DERMATOLOGIC: [Negative.] Past Medical History Past Medical History: Cancer, Diabetes Mellitus, Deep Vein Thrombosis (DVT), Hypertension, Renal Disease, Rheumatoid Arthritis (RA), Thyroid Disorder Additional Past Medical History / Comment(s): O2 @ 4L. SLE LUPUS. STAGE 3 KIDNEY DISEASE. Leukemia, GRAVES DZ , kidney stones, gout, ovarian cancer (recent diagnosis, no treatment yet) History of Any Multi-Drug Resistant Organisms: None Reported Past Surgical History: No Surgical Hx Reported Additional Past Surgical History / Comment(s): BILATERAL ARTHROSCOPY KNEES. D & C (MISCARRIAGES). Past Anesthesia/Blood Transfusion Reactions: No Reported Reaction Past Psychological History: Anxiety Smoking Status: Never smoker Past Alcohol Use History: None Reported Past Drug Use History: None Reported - Past Family History Mother Family Medical History: Congestive Heart Failure (CHF), Diabetes Mellitus Father Family Medical History: Congestive Heart Failure (CHF), Dialysis, Hypertension Medications and Allergies Home Medications Medication Instructions Recorded Confirmed Type FLUoxetine HCL [PROzac] 20 mg PO BID 01/09/17 03/17/22 History Gabapentin [Neurontin] 600 mg PO BID 01/09/17 03/17/22 History Glimepiride [Amaryl] 4 mg PO BID 01/09/17 03/17/22 History Hydroxychloroquine Sulfate 200 mg PO BID 01/09/17 03/17/22 History [Plaquenil] Montelukast [Singulair] 10 mg PO DAILY 01/09/17 03/17/22 History gemfibroziL [Lopid] 600 tab PO BID 01/09/17 03/17/22 History hydrOXYzine HCL [Atarax] 25 mg PO QID 01/09/17 03/17/22 History Albuterol Inhaler [Ventolin Hfa 2 puff INHALATION RT-Q4H PRN 01/14/17 03/17/22 History Inhaler] Albuterol Nebulized [Ventolin 2.5 mg INHALATION RT-QID PRN 01/14/17 03/17/22 History Nebulized] allopurinoL [Zyloprim] 100 mg PO BID 01/21/22 03/17/22 History Aspirin EC [Ecotrin] 325 mg PO DAILY 02/15/22 03/17/22 History Atorvastatin [Lipitor] 10 mg PO HS 02/15/22 03/17/22 History Furosemide [Lasix] 80 mg PO DAILY 02/15/22 03/17/22 History Metoprolol Succinate (ER) [Toprol 25 mg PO DAILY 02/15/22 03/17/22 History XL] Metoprolol Succinate (ER) [Toprol 50 mg PO DAILY 02/15/22 03/17/22 History XL] Ondansetron [Zofran] 4 mg PO Q12HR PRN 02/15/22 03/17/22 History Pantoprazole [Protonix] 40 mg PO BID 02/15/22 03/17/22 History Primidone [Mysoline] 50 mg PO HS 02/15/22 03/17/22 History INSULIN ASPART (NovoLOG) [NovoLOG See Protocol SQ ACHS 30 Days #1 02/19/22 03/17/22 Rx (formulary)] each Insulin Detemir (Levemir) [Levemir] 35 unit SQ HS 30 Days #1 each 02/19/22 03/17/22 Rx Fluticasone/Vilanterol [Breo 1 inhalation INHALATION BID 30 02/24/22 03/17/22 Rx Ellipta 200-25 Mcg Inhaler] Days #1 each Allergies Allergy/AdvReac Type Severity Reaction Status Date / Time ciprofloxacin [From Cipro] Allergy Swelling Verified 03/17/22 11:15 diphenhydramine Allergy Swelling Verified 03/17/22 11:15 [From Benadryl] iodine Allergy Swelling Verified 03/17/22 11:15 propoxyphene Allergy Swelling Verified 03/17/22 11:15 [From Darvocet-N] red dye Allergy Swelling Verified 03/17/22 11:15 sulfacetamide Allergy Swelling Verified 03/17/22 11:15 [From Sulfamide] yellow dye Allergy Swelling Verified 03/17/22 11:15 FLU VACCINE? Allergy Unknown Uncoded 03/17/22 11:15 Physical Exam Osteopathic Statement: *. No significant issues noted on an osteopathic structural exam other than those noted in the History and Physical/Consult. Vitals: Vital Signs Temp Pulse Resp BP Pulse Ox 03/18/22 11:10 99.1 F 102 H 18 120/73 98 03/18/22 04:45 98.6 F 97 16 101/63 95 03/17/22 19:44 98 F 96 16 120/74 93 L Intake and Output 03/18/22 03/18/22 03/18/22 06:59 14:59 22:59 Output Total 500 Balance -500 Output: Urine 500 Other: Weight 138.346 kg No acute distress, oriented 3. Currently on 4 L of oxygen. No respiratory distress, use of accessory muscles, or conversational dyspnea. HEENT examination is grossly unremarkable. Neck supple. Full range of motion. No adenopathy thyromegaly or neck vein dist ention. Cardiovascular examination reveals regular rhythm rate. S1-S2 normal. No S3 or S4. No discernible murmur noted. Heart sounds are distant. Heart rate 102 bpm. Lungs reveal mostly clear breath sounds. Breath sounds are equal bilaterally. Mild scattered rhonchi without wheezes or crackles. 4 L saturation is 98%. Abdomen soft bowel sounds are heard. No masses or tenderness. Extremities are intact. No cyanosis clubbing or edema. Skin is without rash or lesion. Neurologic examination is brief but nonfocal. Results - Laboratory Findings CBC and BMP: 03/17/22 14:47 03/18/22 08:22 Abnormal lab findings: Abnormal Labs 03/17/22 03/17/22 03/17/22 01:56 02:17 02:17 WBC 13.6 H RBC Hgb 10.7 L Hct 33.6 L Neutrophils # 10.5 H Sodium 134 L Potassium 6.0 H Carbon Dioxide 21 L BUN 42 H Creatinine 1.69 H Glucose 705 H* POC Glucose (mg/dL) Hemoglobin A1c Alkaline Phosphatase 203 H Urine Appearance Cloudy H Urine Protein Trace H Urine Glucose (UA) 4+ H Urine Blood Large H Ur Leukocyte Esterase Large H Urine RBC 141 H Urine WBC 138 H Urine WBC Clumps Occasional H Urine Bacteria Moderate H Hyaline Casts 3 H Urine Mucus Rare H Urine Yeast (Budding) Few H 03/17/22 03/17/22 03/17/22 13:02 14:47 14:47 WBC 10.8 H RBC 3.66 L Hgb 9.9 L Hct 30.9 L Neutrophils # 8.0 H Sodium 134 L Potassium 5.3 H Carbon Dioxide 19 L BUN 44 H Creatinine 1.73 H Glucose 396 H POC Glucose (mg/dL) 407 H Hemoglobin A1c Alkaline Phosphatase Urine Appearance Urine Protein Urine Glucose (UA) Urine Blood Ur Leukocyte Esterase Urine RBC Urine WBC Urine WBC Clumps Urine Bacteria Hyaline Casts Urine Mucus Urine Yeast (Budding) 03/17/22 03/17/22 03/17/22 14:47 17:10 20:10 WBC RBC Hgb Hct Neutrophils # Sodium Potassium Carbon Dioxide BUN Creatinine Glucose POC Glucose (mg/dL) 383 H 354 H Hemoglobin A1c 14.0 H Alkaline Phosphatase Urine Appearance Urine Protein Urine Glucose (UA) Urine Blood Ur Leukocyte Esterase Urine RBC Urine WBC Urine WBC Clumps Urine Bacteria Hyaline Casts Urine Mucus Urine Yeast (Budding) 03/18/22 03/18/22 03/18/22 07:19 08:22 11:08 WBC RBC Hgb Hct Neutrophils # Sodium Potassium Carbon Dioxide BUN 35 H Creatinine 1.45 H Glucose 297 H POC Glucose (mg/dL) 299 H 286 H Hemoglobin A1c Alkaline Phosphatase Urine Appearance Urine Protein Urine Glucose (UA) Urine Blood Ur Leukocyte Esterase Urine RBC Urine WBC Urine WBC Clumps Urine Bacteria Hyaline Casts Urine Mucus Urine Yeast (Budding) - Diagnostic Findings Chest x-ray: image reviewed Assessment and Plan Assessment: Status post fall, with fracture of the left hip, with anticipated repair today. Severe chronic bronchial asthma, with chronic hypoxemic respiratory failure, currently on 4 L of oxygen, and at baseline. Recent admission about one month ago, for coronavirus infection, and primary GI symptoms. History of hypertension. History of heart failure. History of stage III chronic kidney disease. Diabetes mellitus. Morbid obesity. Graves' disease. History of DVT. History of stage 1 uterine cancer. Multiple other medical problems and comorbidities. Plan: Plan dated 03/18/2022. Although the patient has a multitude of medical problems, she's pretty much stable and at baseline. Certainly, all of her medical problems, and her morbid obesity, put her at increased risk for axcomplication from surgery, but I think it's reasonable to proceed, given the fact that she needs surgery for the left hip repair. We will continue to follow make recommendations along the way. Prognosis is guarded. I was very honest with the patient and explained that she could have a complication after surgery. I did pass onto the nurse that we did clear her for surgery. Time with Patient: Greater than 30
[2022-03-18 16:56] LABS: Glucose,Whole Blood 226 mg/dL (70-110)
[2022-03-18] MEDS ORDERED: MIDAZOLAM 2 MG/2 ML VIAL ONE (17:06)
[2022-03-18] MEDS ORDERED: PROPOFOL 10 MG/ML 20 ML VIAL IV ONE (17:06)
[2022-03-18] MEDS ORDERED: NEOSTIGMINE 1 MG/ML 10 ML VIAL ONE (17:06)
[2022-03-18] MEDS ORDERED: GLYCOPYRROLATE 0.2 MG/ML 2 ML VIAL ONE (17:06)
[2022-03-18] MEDS ORDERED: SUCCINYLCHOLINE CHLORIDE 200 MG/10 ML VIAL IV ONE (17:06)
[2022-03-18] MEDS ORDERED: PHENYLEPHRINE-0.9% NACL SYG 1,000 MCG/10 ML SYRINGE ONE (17:06)
[2022-03-18] MEDS ORDERED: ROCURONIUM 10 MG/ML (5 ML VIAL) IV ONE (17:06)
[2022-03-18] MEDS ORDERED: fentaNYL (PF) 50 MCG/ML 2 ML AMP ONE (17:06)
[2022-03-18] MEDS ORDERED: LIDOCAINE 2% INJ 20 MG/ML (2 ML VIAL) ONE (17:06)
[2022-03-18] MEDS ORDERED: TRANEXAMIC ACID 1,000 MG in SODIUM CHLORIDE 0.9% 100 ML IVPB ONE ×2 (17:11→17:12)
[2022-03-18] MEDS ORDERED: SODIUM CHLORIDE 0.9% 1,000 ML IV ONE ×3 (17:11→20:06)
[2022-03-18] MEDS: ceFAZolin 3 GM in SODIUM CHLORIDE 0.9% 100 ML IVPB PRN ×2 (17:11→17:42)
[2022-03-18] MEDS ORDERED: HYDROmorphone 0.5 MG/0.5 ML SYRINGE IVP PRN ×2 (19:28)
[2022-03-18] MEDS ORDERED: ONDANSETRON 4 MG/2 ML VIAL IVP PRN (19:28)
[2022-03-18] MEDS ORDERED: NALOXONE 0.4 MG/ML 1 ML VIAL IV PRN (19:28)
[2022-03-18 19:38] LABS: Glucose,Whole Blood 274 mg/dL (70-110)
--- NOTE | 2022-03-18 19:40 | P.OP ---
Date of Procedure: 03/18/22 Preoperative Diagnosis: 1. Nondisplaced reverse oblique left subtrochanteric femur fracture 2. BMI of 50 3. Poorly controlled type 2 diabetes with hemoglobin A1c of 14 4. Chronic kidney disease 5. History of cervical cancer Postoperative Diagnosis: Same Procedure(s) Performed: Operative fixation of left subtrochanteric femur fracture with long cephalo- medullary nail Implants: Rosalia gamma nail 360 mm x 13 mm, 95 mm lag screw Anesthesia: GETA Surgeon: Ronnie Disla [employer] Support Specialist #1: Hunter Murphy Estimated Blood Loss (ml): 200 Pathology: none sent Condition: stable Disposition: PACU Indications for Procedure: The patient is a very pleasant 56-year-old female with multiple medical problems including poorly controlled diabetes with a preoperative hemoglobin A1c level of 14, extreme morbid obesity with a BMI of 50, chronic renal insufficiency, and a history of cervical cancer who presented to the emergency department following a ground-level fall. The patient had x-rays which showed a nondisplaced subtrochanteric femur fracture which was confirmed with a computed tomography scan. Due to her multiple medical issues she was admitted under the care of internal medicine. I was consulted in regards to her inability to ambulate in her left proximal femur fracture. I long discussion with the patient before surgery. My recommendation was to proceed with stabilization to allow for mobilization given her multiple medical problems I felt that prolonged immobilization and nonweightbearing would be impossible. We also discussed that if her fracture displaced and became a truly displaced subtrochanteric femur fracture that would be exceedingly difficult to reduce given her body habitus. We both agreed that prophylactic stabilization both to prevent displacement and allow early mobilization would be in her best interest. She understands that she is at extremely high risk of having a complication given all of her medical problems. Risks discussed include but certainly not limited to risks from an esthesia, superficial infection, deep infection, delayed wound healing, nonunion, malunion, hardware failure, damage to local blood vessels or nerves, medical complications, and possibly loss of life or limb. The patient voiced understanding these potential complications and also acknowledges that other less common complications are possible. She provided both her verbal and written consent to go forward with surgery. Operative Findings: Prior to positioning the patient on the operating room table there was a large amount of bleeding and purulence noted from her vagina. Both anesthesia and myself agreed to proceed with stabilization of her femur fracture. She will need a gynecology consultation for management. Description of Procedure: The patient was identified in preoperative holding and the correct operative extremity was marked with my initials. I reviewed the consent form with the patient and their family and all of their questions were answered. The patient was then brought back to the operating room by anesthesia. Anesthesia, preoperative antibiotics, and tranexamic acid were given by the anesthesia team while on the gurney. Prior to moving the patient to the operating room table who was noted by nursing that there was a large amount of bleeding and purulence from her vagina. I discussed this with the staff anesthesiologist and we both agreed to proceed with stabilization of her fracture. Both ankles were padded with webril and boots for the [place] table were applied. The patient was then carefully transferred onto the [place] table. A perineal post was immediately placed. The contralateral arm was secured on a well-padded arm dominguez. The ipsilateral arm was draped across the chest and secured with a pillow, foam, and paper tape to allow access to the proximal femur. Due to the patient's extremely large body habitus positioning was very difficult and required taping her abdomen out of the surgical field. Great care was taken to pad all bony prominences and make sure she was safely secured to the operating room table given her size. Nonsterile drapes were applied to the operative extremity. The height of the table was elevated and the contralateral extremity was dropped towards the floor to facilitate imaging. A timeout was performed identifying the correct patient, operative extremity, and procedure. Fluoroscopy was brought in to assess the fracture. The fracture was nondisplaced. An AP and lateral view were obtained to assess the reduction. The operative extremity was then prepped and draped in the standard sterile fashion. A straight incision was made at the tip of the greater trochanter and extended proximally for 3 cm. Skin and subcutaneous tissues were incised sharply. The underlying fascia was incised in line with the skin incision. An awl was placed just medial to the tip of the greater trochanter on the AP view and colinear with the canal on the lateral view. A 3.2 mm guide pin was then advanced into the proximal femur. The position of the guidepin was verified with fluoroscopy. An opening reamer and soft tissue cannula were placed over the guidepin and used to open the proximal femur to the level of the lesser trochanter. The 3.2 mm guide pin and opening reamer were removed. A long ball- tipped guidewire was then inserted and the femur and placed distally just proximal to the patella. The position of the guidewire was assessed with fluoroscopy. The length of the nail was measured to 360 mm. We then sequentially reamed up to a 14.5 mm reamer. A long gamma nail was dispensed, hooked up to the targeting arm and I verified that the trochar through the targeting arm lined up with the slots on the nail. The nail was then impacted into the proximal femur until the appropriate depth had been reached. The ball- tipped guidewire was removed. A small stab incision was made over the lateral aspect of the femur using the targeting arm as a reference for the lag screw. Incision was carried down to the skin and fascia down to the lateral cortex of the femur. The trocar was then placed up to the lateral cortex of the femur and a guidepin was placed in the low center position on the AP view and centered in the femoral head on the lateral view. Once the position of the guidewire was verified, we reamed to appropriate depth and placed a lag screw over the guidewire and into the femoral head. The position of the lag screw was assessed with fluoroscopy. The guidewire was then removed from the femoral head. The set screw was placed proximally brought fully down. Given that the patient's fracture was completely nondisplaced and due to my wish to avoid additional surgical incisions given her high risk of having a complication I elected to not use a distal interlocking screw. Final fluoroscopic images were taken showing excellent reduction of the fracture and appropriate position of the implants. All wounds were thoroughly irrigated and closed in layers. Sterile dressings were applied. The drapes were taken down, the patient was transferred off the [place] table, and was brought to recovery having tolerated the procedure well. Hunter Murphy PA-C was required as a skilled early childhood teacher assistant for patient positioning, retraction, placement of implants, closure of wounds, and application of dressings. PLAN: The patient can weight-bear as tolerated on their operative extremity. 2 doses of postoperative antibiotics. DVT prophylaxis per primary service. Prior to positioning on the operating room table there is a large amount of bleeding from her vagina with purulence. Given her history I would suggest a primary service consult gynecology.
--- NOTE | 2022-03-18 19:42 | FL ---
Intraoperative/procedural fluoroscopic services were provided. Total fluoroscopy time is 2 minutes fo r seconds with a total of 10 submitted images to PACS. Please see the operative/procedural note for f urther details.
[2022-03-18] MEDS ORDERED: HYDROmorphone 0.5 MG/0.5 ML SYRINGE IVP ONE (20:09)
[2022-03-18 21:23] LABS: Glucose,Whole Blood 296 mg/dL (70-110)
[2022-03-18] MEDS: ATORVASTATIN 10 MG TAB PO SCH (22:19)
[2022-03-18] MEDS: FENOFIBRATE 160 MG TAB PO SCH (22:19)
[2022-03-18] MEDS: ASPIRIN 81 MG PO SCH (22:19)
[2022-03-18] MEDS: PRIMIDONE 50 MG TAB PO SCH (22:20)
[2022-03-18] MEDS: SENNOSIDES-DOCUSATE SODIUM 1 EACH TAB PO SCH (22:20)
[2022-03-18 23:11] LABS: Basophils # (A) 0.1 k/uL (0-0.2); Basophils % (A) 0 %; Eosinophils # (A) 0.1 k/uL (0-0.7); Eosinophils % (A) 1 %; HCT 30.2 % (34.0-46.0); HGB 9.7 gm/dL (11.4-16.0); Hypochromasia Slight; Lymphocytes # (A) 1.6 k/uL (1.0-4.8); Lymphocytes % (A) 7 %; MCH 27.2 pg (25.0-35.0); MCHC 32.1 g/dL (31.0-37.0); MCV 84.9 fL (80.0-100.0); Mean Platelet Volume 10.3; Monocytes # (A) 1.1 k/uL (0-1.0); Monocytes % (A) 5 %; Neutrophils # (A) 19.6 k/uL (1.3-7.7); Neutrophils % (A) 86 %; Platelet Count 253 k/uL (150-450); RBC 3.56 m/uL (3.80-5.40); RDW 14.6 % (11.5-15.5); WBC 22.8 k/uL (3.8-10.6)
[2022-03-19] MEDS: ceFAZolin 3 GM in SODIUM CHLORIDE 0.9% 100 ML IVPB SCH ×2 (01:16→11:47)
[2022-03-19] MEDS: hydrOXYzine pamoate 25 MG CAP PO PRN (01:16)
[2022-03-19] MEDS ORDERED: HYDROmorphone 0.5 MG/0.5 ML SYRINGE IVP PRN (07:00)
[2022-03-19 07:56] LABS: Glucose,Whole Blood 284 mg/dL (70-110)
--- NOTE | 2022-03-19 07:59 | P.PN ---
Subjective Progress Note Date: 03/19/22 Principal diagnosis: Severe asthma. Pulmonary consult dated 03/18/2022. 56-year-old obese female, who presented to the emergency department on March 16, having fallen at home. The patient fell off the couch was unable to get up. She was complaining of left hip pain. The patient was discovered to have a fractured hip, and is apparently going for surgery sometime later today. We were consulted for preoperative evaluation and clearance. The patient does have a history of severe asthma, and sees my partner for that. Her primary care provider is Dr. Alicea. She also sees Dr. Sparks for her kidney disease. The patient's currently on 4 L. She remains on 4 L. This is her home dose. The patient's getting saline at 50 mL an hour. She is a lifelong nonsmoker. The pa godfreyangélica uses home oxygen at 4 L as well. She has a history of uterine cancer, diabetes, DVT, hypertension, rheumatoid arthritis, stage III kidney disease, kidney stones, and gout among other things. I saw her about a month ago here in the hospital for coronavirus infection, with primary GI issues including nausea, vomiting, etc. She did not have coronavirus associated pneumonia. White count 10.8, hemoglobin 9.9, hematocrit 30.9, and platelet count is normal. Sodium, potassium, chloride, CO2, and anion gap all normal. BUN 35, with a creatinine of 1.45. Urinalysis suggestive of possible urinary tract infection. Chest x- ray difficult to interpret. There appears to be no acute abnormality on chest x-ray, although her chest x-ray honestly because of body habitus, it is difficult to interpret. Progress note dated 03/19/2022. The patient is seen today in room 516. She had her left hip repair yesterday by one of the orthopedic surgeons. Apparently everything went well. She is on 4 L of oxygen. She's on at home. She's getting saline at 20 mL an hour. Today is postop day #1. Other than pain, she is doing well. No new labs today other than a glucose of 284. Objective - Vital Signs Vital signs: Vital Signs Temp 99.9 F H 03/19/22 04:07 Pulse 111 H 03/19/22 04:07 Resp 16 03/19/22 04:07 BP 105/64 03/19/22 04:07 Pulse Ox 98 03/19/22 04:07 FiO2 Intake & Output 03/18/22 03/19/22 03/19/22 18:59 06:59 18:59 Intake Total 800 230 Output Total 200 Balance 600 230 Weight 138.346 kg 138.346 kg Intake: IV 800 200 Oral 30 Output: Estimated Blood Loss 200 Other: Voiding Method External Catheter - Exam No acute distress, oriented 3. Currently on 4 L of oxygen. No respiratory distress, use of accessory muscles, or conversational dyspnea. HEENT examination is grossly unremarkable. Neck supple. Full range of motion. No adenopathy thyromegaly or neck vein distention. Cardiovascular examination reveals regular rhythm rate. S1-S2 normal. No S3 or S4. No discernible murmur noted. Heart sounds are distant. Heart rate 100 bpm. Lungs reveal mostly clear breath sounds. Breath sounds are equal bilaterally. Mild scattered rhonchi without wheezes or crackles. 4 L saturation is 98%. Abdomen soft bowel sounds are heard. No masses or tenderness. Extremities are intact. No cyanosis clubbing or edema. Skin is without rash or lesion. Neurologic examination is brief but nonfocal. - Labs CBC & Chem 7: 03/18/22 22:44 03/18/22 08:22 Labs: Abnormal Lab Results - Last 24 Hours (Table) 03/18/22 03/18/22 03/18/22 Range/Units 08:22 11:08 16:54 WBC (3.8-10.6) k/uL RBC (3.80-5.40) m/uL Hgb (11.4-16.0) gm/dL Hct (34.0-46.0) % Neutrophils # (1.3-7.7) k/uL Monocytes # (0-1.0) k/uL BUN 35 H (7-17) mg/dL Creatinine 1.45 H (0.52-1.04) mg/dL Glucose 297 H (74-99) mg/dL POC Glucose (mg/dL) 286 H 226 H (70-110) mg/dL 03/18/22 03/18/22 03/18/22 Range/Units 19:36 21:21 22:44 WBC 22.8 H (3.8-10.6) k/uL RBC 3.56 L (3.80-5.40) m/uL Hgb 9.7 L (11.4-16.0) gm/dL Hct 30.2 L (34.0-46.0) % Neutrophils # 19.6 H (1.3-7.7) k/uL Monocytes # 1.1 H (0-1.0) k/uL BUN (7-17) mg/dL Creatinine (0.52-1.04) mg/dL Glucose (74-99) mg/dL POC Glucose (mg/dL) 274 H 296 H (70-110) mg/dL Assessment and Plan Assessment: Status post fall, with fracture of the left hip,S/P repair, March 18, postop day #1. Severe chronic bronchial asthma, with chronic hypoxemic respiratory failure, currently on 4 L of oxygen, and at baseline. Recent admission about one month ago, for coronavirus infection, and primary GI symptoms. History of hypertension. History of heart failure. History of stage III chronic kidney disease. Diabetes mellitus. Morbid obesity. Graves' disease. History of DVT. History of stage 1 uterine cancer. Multiple other medical problems and comorbidities. Plan: Plan dated 03/18/2022. Although the patient has a multitude of medical problems, she's pretty much stable and at baseline. Certainly, all of her medical problems, and her morbid obesity, put her at increased risk for axcomplication from surgery, but I think it's reasonable to proceed, given the fact that she needs surgery for the left hip repair. We will continue to follow make recommendations along the way. Prognosis is guarded. I was very honest with the patient and explained that she could have a complication after surgery. I did pass onto the nurse that we did clear her for surgery. Plan dated 03/19/2022. The patient did well with surgery. Today's postop day #1. She does have pain at the surgical site. She is on 4 L, which is what she takes at home. Labs, x-rays, medications are reviewed. We asked her to continue to deep breathe, cough, clear any secretions. Incentive spirometry would be a good thing. We will continue to follow. Time with Patient: Less than 30
[2022-03-19] MEDS: SYMBICORT 160-4.5 MCG INHALER INHALATION SCH ×2 (08:17→19:50)
[2022-03-19] MEDS: SODIUM CHLORIDE 0.9% 1,000 ML IV SCH ×2 (08:38→22:31)
[2022-03-19] MEDS: INSULIN ASPART (NovoLOG) 100 UNIT/ML VIAL SQ SCH ×7 (08:46→21:24)
[2022-03-19] MEDS: INSULIN DETEMIR (LEVEMIR) 100 UNIT/ML SYR SQ SCH ×2 (08:46→21:24)
[2022-03-19] MEDS: HYDROcodone/APAP 5-325MG 1 EACH TAB PO PRN ×2 (08:47→15:28)
[2022-03-19] MEDS: FLUoxetine HCL 20 MG CAP PO SCH ×2 (08:48→21:23)
[2022-03-19] MEDS: PANTOPRAZOLE 40 MG TABLET PO SCH ×2 (08:48→17:41)
[2022-03-19] MEDS: ASPIRIN 325 MG TAB PO SCH (08:48)
[2022-03-19] MEDS: METOPROLOL SUCCINATE (ER) 25 MG TAB.ER.24H PO SCH (08:48)
[2022-03-19] MEDS: allopurinoL 100 MG TAB PO SCH ×2 (08:48→21:24)
[2022-03-19] MEDS: GABAPENTIN 300 MG CAP PO SCH ×2 (08:48→21:23)
[2022-03-19] MEDS: ASPIRIN 81 MG PO SCH ×2 (08:48→21:23)
[2022-03-19] MEDS: MONTELUKAST 10 MG TAB PO SCH (08:48)
[2022-03-19 09:13] LABS: Basophils # (A) 0.09 X 10*3/uL (0.00-0.10); Basophils % (A) 0.6 %; Eosinophils # (A) 0.16 X 10*3/uL (0.04-0.35); HCT 28.6 % (37.2-46.3); HGB 8.9 g/dL (12.0-15.0); Immature Grans, Automated 1.2 %; Lymphocytes # (A) 1.93 X 10*3/uL (0.90-5.00); Lymphocytes % (A) 11.8 %; MCH 27.2 pg (27.0-32.0); MCHC 31.1 g/dL (32.0-37.0); MCV 87.5 fL (80.0-97.0); Mean Platelet Volume 11.3 fL (9.5-12.2); Monocytes # (A) 0.97 X 10*3/uL (0.20-1.00); Monocytes % (A) 5.9 %; NRBC Per 100 WBC 0 /100 WBCS (0.0-0.0); Neutrophils % (A) 79.5 %; Platelet Count 293 X 10*3/uL (140-440); RBC 3.27 X 10*6/uL (4.10-5.20); RDW 14.5 % (11.5-14.5); WBC 16.35 X 10*3/uL (4.50-10.00)
[2022-03-19 09:37] LABS: Magnesium 1.9 mg/dL (1.5-2.4)
[2022-03-19 09:47] LABS: Anion Gap 14.5 mmol/L (10.00-18.00); BUN/Creat Ratio 17.57 Ratio (12.00-20.00); Blood Urea Nitrogen 36.9 mg/dL (9.0-27.0); Calcium 8.6 mg/dL (8.7-10.3); Carbon Dioxide 19.5 mmol/L (20.0-27.5); Non-African American GFR(CKD) 25.8 (60.0-200.0); Potassium 6.2 mmol/L (3.5-5.5)
--- NOTE | 2022-03-19 09:48 | P.PN ---
Subjective Progress Note Date: 03/19/22 This patient is a 56- year old female who is status-post operative fixation of left subtrochanteric femur fracture with long cephalo-medullary nail on 03/18/22. Today is postoperative day #1. The patient is examined bedside this morning. She states the pain in her left hip is well-controlled at this time. She has not been up with physical therapy yet. She has no new complaints or concerns today. Vital signs stable. Objective - Vital Signs Vital signs: Vital Signs Temp 99.9 F H 03/19/22 04:07 Pulse 111 H 03/19/22 04:07 Resp 16 03/19/22 04:07 BP 105/64 03/19/22 04:07 Pulse Ox 98 03/19/22 04:07 FiO2 Intake & Output 03/18/22 03/19/22 03/19/22 18:59 06:59 18:59 Intake Total 800 230 Output Total 200 Balance 600 230 Weight 138.346 kg 138.346 kg Intake: IV 800 200 Oral 30 Output: Estimated Blood Loss 200 Other: Voiding Method External Catheter - Exam On examination, the patient is sitting up in bed in no apparent distress. She is alert and orientated 3. Nasal cannula in place. On inspection of her left hip, there are 2 clean, dry, intact Opsite surgical dressings in place with no bleeding or drainage through the dressings. Motor and sensory function is intact of the left lower extremity. Left lower extremity warm and well perfused. - Labs CBC & Chem 7: 03/19/22 03:32 03/18/22 08:22 Labs: Abnormal Lab Results - Last 24 Hours (Table) 03/18/22 03/18/22 03/18/22 Range/Units 11:08 16:54 19:36 WBC (3.8-10.6) k/uL RBC (3.80-5.40) m/uL Hgb (11.4-16.0) gm/dL Hct (34.0-46.0) % MCHC (32.0-37.0) g/dL Immature Gran # (0.00-0.04) X 10*3/uL Neutrophils # (1.3-7.7) k/uL Monocytes # (0-1.0) k/uL POC Glucose (mg/dL) 286 H 226 H 274 H (70-110) mg/dL 03/18/22 03/18/22 03/19/22 Range/Units 21:21 22:44 03:32 WBC 22.8 H 16.35 H (3.8-10.6) k/uL RBC 3.56 L 3.27 L (3.80-5.40) m/uL Hgb 9.7 L 8.9 L (11.4-16.0) gm/dL Hct 30.2 L 28.6 L (34.0-46.0) % MCHC 31.1 L (32.0-37.0) g/dL Immature Gran # 0.20 H (0.00-0.04) X 10*3/uL Neutrophils # 19.6 H 13.00 H (1.3-7.7) k/uL Monocytes # 1.1 H (0-1.0) k/uL POC Glucose (mg/dL) 296 H (70-110) mg/dL 03/19/22 Range/Units 07:55 WBC (3.8-10.6) k/uL RBC (3.80-5.40) m/uL Hgb (11.4-16.0) gm/dL Hct (34.0-46.0) % MCHC (32.0-37.0) g/dL Immature Gran # (0.00-0.04) X 10*3/uL Neutrophils # (1.3-7.7) k/uL Monocytes # (0-1.0) k/uL POC Glucose (mg/dL) 284 H (70-110) mg/dL Assessment and Plan Assessment: Status-post operative fixation of left subtrochanteric femur fracture with long cephalo-medullary nail on 03/18/22. Post-operative day #1. Plan: - Weight bear to tolerance on operative extremity with a walker. Up with assistance. - Physical therapy for gait and balance training. - Keep operative dressings intact. - 2 doses post-operative antibiotics. - Medical management per internal medicine. Will defer to IM for DVT prophylaxis as patient has history of DVT. - Recommend gynecology consultation by primary service. - Will follow closely.
[2022-03-19] MEDS ORDERED: SODIUM CHLORIDE 0.9% 500 ML 500 ML IV ONE ×2 (09:56→23:04)
[2022-03-19] MEDS ORDERED: DEXTROSE 50% SYRINGE 50 ML IVP STA (11:31)
[2022-03-19] MEDS ORDERED: INSULIN REGULAR 100 UNIT/ML VIAL (IV) IV ONE (11:31)
[2022-03-19] MEDS ORDERED: CALCIUM GLUCONATE IN NACL 1 GM in SALINE 1 100ML.BAG IVPB ONE (11:31)
[2022-03-19] MEDS ORDERED: SODIUM BICARB 8.4% 50 ML SYR (1 MEQ/ML) IV STA (11:31)
[2022-03-19] MEDS ORDERED: SODIUM ZIRCONIUM CYCLOSILICATE 10 GM PACKET PO ONE ×2 (11:31→18:00)
--- NOTE | 2022-03-19 11:34 | P.PN ---
Subjective Patient is seen in follow-up for acute kidney injury on chronic kidney disease. Renal function worse today. Creatinine 2.1. Potassium is high at 6.2. Blood sugars are noted to be high and she is also more acidotic. Feels nauseous. Has been voiding. Underwent left hip surgical repair on 03/18/2022. Vital signs are stable. General: Awake. No acute distress. HEENT: Head exam is unremarkable. LUNGS: Breath sounds decreased. HEART: Rate and Rhythm are regular. ABDOMEN: Soft, no distention. EXTREMITITES: No edema. Objective - Vital Signs Vital signs: Vital Signs Temp 99.9 F H 03/19/22 04:07 Pulse 111 H 03/19/22 04:07 Resp 16 03/19/22 04:07 BP 105/64 03/19/22 04:07 Pulse Ox 98 03/19/22 04:07 FiO2 Intake & Output 03/18/22 03/19/22 03/19/22 18:59 06:59 18:59 Intake Total 800 230 Output Total 200 Balance 600 230 Weight 138.346 kg 138.346 kg Intake: IV 800 200 Oral 30 Output: Estimated Blood Loss 200 Other: Voiding Method External Catheter - Labs CBC & Chem 7: 03/19/22 03:32 03/19/22 03:32 Labs: Abnormal Lab Results - Last 24 Hours (Table) 03/18/22 03/18/22 03/18/22 Range/Units 16:54 19:36 21:21 WBC (3.8-10.6) k/uL RBC (3.80-5.40) m/uL Hgb (11.4-16.0) gm/dL Hct (34.0-46.0) % MCHC (32.0-37.0) g/dL Immature Gran # (0.00-0.04) X 10*3/uL Neutrophils # (1.3-7.7) k/uL Monocytes # (0-1.0) k/uL Potassium (3.5-5.5) mmol/L Carbon Dioxide (20.0-27.5) mmol/L BUN (9.0-27.0) mg/dL Creatinine (0.6-1.5) mg/dL Est GFR (CKD-EPI)AfAm (60.0-200.0) Est GFR (CKD-EPI)NonAf (60.0-200.0) Glucose (70-110) mg/dL POC Glucose (mg/dL) 226 H 274 H 296 H (70-110) mg/dL Calcium (8.7-10.3) mg/dL 03/18/22 03/19/22 03/19/22 Range/Units 22:44 03:32 03:32 WBC 22.8 H 16.35 H (3.8-10.6) k/uL RBC 3.56 L 3.27 L (3.80-5.40) m/uL Hgb 9.7 L 8.9 L (11.4-16.0) gm/dL Hct 30.2 L 28.6 L (34.0-46.0) % MCHC 31.1 L (32.0-37.0) g/dL Immature Gran # 0.20 H (0.00-0.04) X 10*3/uL Neutrophils # 19.6 H 13.00 H (1.3-7.7) k/uL Monocytes # 1.1 H (0-1.0) k/uL Potassium 6.2 H* (3.5-5.5) mmol/L Carbon Dioxide 19.5 L (20.0-27.5) mmol/L BUN 36.9 H (9.0-27.0) mg/dL Creatinine 2.1 H (0.6-1.5) mg/dL Est GFR (CKD-EPI)AfAm 30.0 L (60.0-200.0) Est GFR (CKD-EPI)NonAf 25.8 L (60.0-200.0) Glucose 312 H (70-110) mg/dL POC Glucose (mg/dL) (70-110) mg/dL Calcium 8.6 L (8.7-10.3) mg/dL 03/19/22 Range/Units 07:55 WBC (3.8-10.6) k/uL RBC (3.80-5.40) m/uL Hgb (11.4-16.0) gm/dL Hct (34.0-46.0) % MCHC (32.0-37.0) g/dL Immature Gran # (0.00-0.04) X 10*3/uL Neutrophils # (1.3-7.7) k/uL Monocytes # (0-1.0) k/uL Potassium (3.5-5.5) mmol/L Carbon Dioxide (20.0-27.5) mmol/L BUN (9.0-27.0) mg/dL Creatinine (0.6-1.5) mg/dL Est GFR (CKD-EPI)AfAm (60.0-200.0) Est GFR (CKD-EPI)NonAf (60.0-200.0) Glucose (70-110) mg/dL POC Glucose (mg/dL) 284 H (70-110) mg/dL Calcium (8.7-10.3) mg/dL Assessment and Plan Plan: Assessment: 1. Acute kidney injury mostly prerenal secondary to hypovolemia from severe hyperglycemia. Renal function worse. Creatinine 2.1 today. Rule out urinary retention. No hydronephrosis noted on kidney ultrasound although right kidney was not visualized. 2. Chronic kidney disease stage IIIB secondary to diabetic kidney disease. 3. History of lupus maintained on Plaquenil outpatient. Patient's UA from 02/14/2022 showed only 1 RBC. 4. Pyuria. On antibiotics. 5. Diabetes mellitus. Uncontrolled on admission. 6. Left femur fracture status post surgical repair 03/18/2022. 7. Hyperkalemia secondary to acute kidney injury, hyperglycemia and acidosis. 8. Endometrial cancer being followed by oncology outpatient. Plan: Maintain normal saline at 50 mL an hour. Follow-up urine culture. Continue to hold diuretics. Avoid nephrotoxins. Blood sugar control. 1 g IV calcium gluconate, 2 A sodium bicarb IV push, 10 units IV regular insulin with diabetes 50 and 10 g lokelma now. Repeat potassium level this evening. Check bladder scan to rule out urinary retention.
[2022-03-19] MEDS: LACTATED RINGERS 1,000 ML IV SCH (11:36)
[2022-03-19] MEDS: SODIUM BICARBONATE TAB 650 MG TAB PO SCH ×2 (12:12→21:24)
[2022-03-19 12:24] LABS: Glucose,Whole Blood 349 mg/dL (70-110)
--- NOTE | 2022-03-19 12:33 | P.PN ---
Subjective History of present illness; patient is 56-year-old lady with past medical history significant for insulin-dependent diabetes mellitus, hypertension, hyperlipidemia presented to the ER because of fall. Patient was all right yesterday evening when while she was watching TV and trying to get out of her couch she lost her balance and fell on her buttocks. She didn't lose any consciousness. Patient denied any seizure-like activity. Patient had no prior episode of any bone. Patient did not hit her head. Because of this fall patient came to the ER. In the ER, initial lab work showed patient to have a white count of 13.6, hemoglobin of 10.7, sodium 134, potassium 6, anion gap 10, creatinine 1.69, initial glucose was elevated at 75. X-ray of left hip and pelvis are negative for any fractures. Patient was admitted for further evaluation and treatment 03/18/2022 Patient presents because of fall, patient states that she was watching TV and started up to turn off her TV when she felt dizzy lightheaded left spondylosis and fell on her left hip area suffering from hip fracture. Patient still complaining from pain about 9/10 in severity this morning in her left hip area with plan for left hip arthroplasty by surgery team Patient states that she is diabetic and she takes Levemir 50 units twice a day with insulin sliding scale now scheduled insulin with meals. Her security developer is Dr. Valdivia. She denies chest pain or dyspnea, no headache or weakness or dizziness, no abdominal pain vomiting or diarrhea. Dysuria or urgency. she is on 4 litre of oxygen at home for chronic asthma and recurrent pneumonias, her pulmnoloigst is dr. garcia We will continue with Levemir 15 units twice a day and NovoLog 15 units with meals and I'll keep potential, after the procedure. She is hemodynamically stable. Creatinine is trending down 1.4 today. CBC is still pending. The sternum 1.7, we'll give 1 time dose of magnesium sulfide 1 g 1 because she is going for surgery Also she was placed on normal saline at 50 mL/h. 03/19/2022 Patient is status post surgical fixation of her left subtrochanteric fracture with medullary nail. Today is postop day #1. She is fully awake and oriented she is complain from some pain at the surgical site which is expected. No chest pain or dyspnea. No abdominal pain. Her blood pressure was on the low side 88/53, she received a bolus of normal saline also she has a normal saline 50 mL/h with nephrology team on the case. Creatinine bumped up 2.1 was 1.4 yesterday. Potassium 6.2 and she receives multiple treatment, please see orders. We'll keep monitoring potassium level of closely. Urine analysis is positive for UTI, urine culture was not sent, we'll send another sample today and discussed with the staff. She remains on ceftriaxone and she tolerates that's well. Also orthopedic team input is appreciated, they recommended to defer the DVT prophylaxis to primary team. I discussed the case with the patient and although documented history of DVT she denies any such history and she denies being on blood thinner she was on aspirin 325 mg at home. She denies leg pain or swelling or symptoms now however because of this confusion about her history we will order ultrasound of the leg to rule out DVT and if is negative then we prefer to defer the DVT prophylaxis to surgery team because mostly it would be related to her hip surgery. also patient reports some mild vaginal bleeding. She says her saloonkeeper is Dr. Bustamante which is consulted. Other than that she has mild leukocytosis, hemoglobin 8.9. She has low-grade temperature of 99.9. Her sugar was elevated more than 250 and Levemir increased to 18 units with NovoLog 15 units with meals prognosis remains guarded Objective - Vital Signs Vital signs: Vital Signs Temp 97.7 F 03/19/22 11:40 Pulse 107 H 03/19/22 11:40 Resp 16 03/19/22 11:40 BP 81/53 03/19/22 11:40 Pulse Ox 100 03/19/22 11:40 FiO2 Intake & Output 03/18/22 03/19/22 03/19/22 18:59 06:59 18:59 Intake Total 800 230 Output Total 200 Balance 600 230 Weight 138.346 kg 138.346 kg Intake: IV 800 200 Oral 30 Output: Estimated Blood Loss 200 Other: Voiding Method External Catheter - Exam -GENERAL: The patient is alert and oriented x3, not in any acute distress. Morbidly obese HEENT: Pupils are round and equally reacting to light. EOMI. No scleral icterus. No conjunctival pallor. Normocephalic, atraumatic. No pharyngeal erythema. No thyromegaly. CARDIOVASCULAR: S1 and S2 present. No murmurs, rubs, or gallops. PULMONARY: Chest is clear to auscultation, no wheezing or crackles. ABDOMEN: Soft, nontender, nondistended, normoactive bowel sounds. No palpable organomegaly. -MUSCULOSKELETAL: No joint swelling or deformity. Left hip surgical wound with dressing in place. Exam is deferred to surgery team EXTREMITIES: No cyanosis, clubbing, or pedal edema. NEUROLOGICAL: Gross neurological examination did not reveal any focal deficits. SKIN: No rashes. no petechiae. - Labs CBC & Chem 7: 03/19/22 03:32 03/19/22 03:32 Labs: Abnormal Lab Results - Last 24 Hours (Table) 03/18/22 03/18/22 03/18/22 Range/Units 16:54 19:36 21:21 WBC (3.8-10.6) k/uL RBC (3.80-5.40) m/uL Hgb (11.4-16.0) gm/dL Hct (34.0-46.0) % MCHC (32.0-37.0) g/dL Immature Gran # (0.00-0.04) X 10*3/uL Neutrophils # (1.3-7.7) k/uL Monocytes # (0-1.0) k/uL Potassium (3.5-5.5) mmol/L Carbon Dioxide (20.0-27.5) mmol/L BUN (9.0-27.0) mg/dL Creatinine (0.6-1.5) mg/dL Est GFR (CKD-EPI)AfAm (60.0-200.0) Est GFR (CKD-EPI)NonAf (60.0-200.0) Glucose (70-110) mg/dL POC Glucose (mg/dL) 226 H 274 H 296 H (70-110) mg/dL Calcium (8.7-10.3) mg/dL 03/18/22 03/19/22 03/19/22 Range/Units 22:44 03:32 03:32 WBC 22.8 H 16.35 H (3.8-10.6) k/uL RBC 3.56 L 3.27 L (3.80-5.40) m/uL Hgb 9.7 L 8.9 L (11.4-16.0) gm/dL Hct 30.2 L 28.6 L (34.0-46.0) % MCHC 31.1 L (32.0-37.0) g/dL Immature Gran # 0.20 H (0.00-0.04) X 10*3/uL Neutrophils # 19.6 H 13.00 H (1.3-7.7) k/uL Monocytes # 1.1 H (0-1.0) k/uL Potassium 6.2 H* (3.5-5.5) mmol/L Carbon Dioxide 19.5 L (20.0-27.5) mmol/L BUN 36.9 H (9.0-27.0) mg/dL Creatinine 2.1 H (0.6-1.5) mg/dL Est GFR (CKD-EPI)AfAm 30.0 L (60.0-200.0) Est GFR (CKD-EPI)NonAf 25.8 L (60.0-200.0) Glucose 312 H (70-110) mg/dL POC Glucose (mg/dL) (70-110) mg/dL Calcium 8.6 L (8.7-10.3) mg/dL 03/19/22 03/19/22 Range/Units 07:55 12:21 WBC (3.8-10.6) k/uL RBC (3.80-5.40) m/uL Hgb (11.4-16.0) gm/dL Hct (34.0-46.0) % MCHC (32.0-37.0) g/dL Immature Gran # (0.00-0.04) X 10*3/uL Neutrophils # (1.3-7.7) k/uL Monocytes # (0-1.0) k/uL Potassium (3.5-5.5) mmol/L Carbon Dioxide (20.0-27.5) mmol/L BUN (9.0-27.0) mg/dL Creatinine (0.6-1.5) mg/dL Est GFR (CKD-EPI)AfAm (60.0-200.0) Est GFR (CKD-EPI)NonAf (60.0-200.0) Glucose (70-110) mg/dL POC Glucose (mg/dL) 284 H 349 H (70-110) mg/dL Calcium (8.7-10.3) mg/dL Assessment and Plan Assessment: Fall without losing consciousness but associated with lightheadedness and dizziness, most likely secondary to dehydration Left hip fracture with the plan for hip surgery by orthopedic team. Status post operative fixation of the left subtrochanteric femur fracture with medullary nail Mild vaginal bleeding Acute kidney injury with hyperkalemia Diabetes mellitus with hyperglycemia, present on admission Severe dehydration with acute kidney injury present on admission, secondary to above Acute kidney injury Chronic hypoxic respiratory failure Asthma, not acute event History of recurrent pneumonia History of lupus on treatment Morbid obesity Plan: Continue with orthopedic team recommendation. We will check ultrasound of the leg and if it is negative then we will ask orthopedic team to address her DVT prophylaxis. Continue with gentle hydration Continue with antibiotic and follow-up culture Gynecological consult Patient is planned for surgery today, patient is at some risk during the surgery but there is no absolute contraindication. Continue with Levemir 15 units and NovoLog 15 units with meals and insulin sliding scale. Patient will need preop evaluation, were going to consult for this reason pulmonary team Labs and medication were reviewed.. Continue same treatment. Continue with symptomatic treatment. Resume home medication. Monitor labs and vitals. DVT and GI prophylaxis. Further recommendations as per clinical course of the patient DVT prophylaxis: Currently on aspirin GI Prophylaxis: Pepcid PT/OT: Pending Prognosis is guarded
--- NOTE | 2022-03-19 15:00 | US ---
EXAMINATION TYPE: US venous doppler duplex LE BI DATE OF EXAM: 03/19/2022 2:21 PM COMPARISON: NONE CLINICAL HISTORY: leg swelling. Left hip surgery 03/18/22. Patient fell 3 days ago. Pain bilateral leg s SIDE PERFORMED: bilateral TECHNIQUE: The lower extremity deep venous system is examined utilizing real time linear array sonog rachelle with graded compression, doppler sonography and color-flow sonography. VESSELS IMAGED: Common Femoral Vein Deep Femoral Vein Greater Saphenous Vein * Femoral Vein Popliteal Vein Small Saphenous Vein * Proximal Calf Veins (* superficial vessels) technical limitations due to patient's body habitus and position Right Leg: no evidence of DVT, unable to visualize lower femoral vein for compression Left Leg: unable to visualize groin vessels due to patient's body habitus and position. No evidence of DVT as visualized IMPRESSION: 1. Markedly limited exam as discussed above. No obvious DVT as visualized given the limitations discu ssed above.
[2022-03-19 17:16] LABS: Appearance,Urine Cloudy (Clear); Bacteria,Urine Many /hpf; Bilirubin,Urine Negative (Negative); Blood,Urine Trace (Negative); Budding Yeast,Urine Many /hpf; Color,Urine Yellow; Glucose,Urine (UA) Negative (Negative); Hyaline Casts,Urine 26 /lpf (0-2); Ketones,Urine Trace (Negative); Leukocyte Esterase,Urine Large (Negative); Mucus,Urine Rare /hpf; Nitrite,Urine Negative (Negative); Protein,Urine 1+ (Negative); RBC,Urine 14 /hpf (0-5); Specific Gravity,Urine 1.017 (1.001-1.035); Squamous Epithelial Cell,Urine <1 /hpf (0-4); Urobilinogen,Urine <2.0 mg/dL (<2.0); WBC,Urine >182 /hpf (0-5)
[2022-03-19 17:26] LABS: Glucose,Whole Blood 179 mg/dL (70-110)
--- NOTE | 2022-03-19 17:30 | P.OBCN ---
History of Present Illness Consult date: 03/19/22 Reason for consult: other (postmenopausal bleeding) Chief complaint: postmenopausal bleeding History of present illness: Ms. Diaz is a 56 year old female with clinical stage 1 endometrial cancer for whom [employer] service is cosulted today for postmenopausal bleeding. The patient felt lightheaded at home, fell, and fractured her hip recently. She is now POD#1 s/p Operative fixation of left subtrochanteric femur fracture with long cephalo-medullary nail. While in the OR, a significant amount of vaginal bleeding was noted. The patient first developed postmenopausal bleeding in April of 2021. She sought care in December of 2021 and was scheduled for hysteroscopy d&c to sample the endometrium with Dr. Bustamante. The patient was diagnosed with FIGO grade 1 endometrioid adenocarcinoma on 01/22/2022. She was referred to Dr. Abrams with [facility]. However, given her multiple comorbidities was determined to be a poor surgical candidate. The plan was to move forward with radiation therapy. She is seeing Dr. Bradford with Radiology Oncology, with her first visit on 03/11/2022. She was asked to complete a pelvic MRI and then return to his clinic in 2 weeks following. [employer] History: Menarche age 12, , Menopause at age 48, no history of hormone replacement therapy. Past Medical History: Asthma, C.Diff in January of 2022, COVID February 2022, Diabetes Mellitus, GERD, Hypercholesterolemia, Hypothyroidism, Kidney Failure (Stage III), Lupus, Obesity, Hypoventilation Syndrome (uses 4 L of Oxygen Nasal Canula at home), Peripheral Neuropathy, Rheumatoid Arthritis, and Sleep Apnea Past Surgical History: Bilateral Knee Repair in 1999, D&C Hysteroscopy in 2021, Suction D&C x2 for missed abortions in 1994 and 1996. Allergies: Red dye, yellow dye, iodine, ciprofloxacin, and benadryl. Social History: Patient denies alcohol, tobacco, or illicit drug use. Family History: Unremarkable. Past Medical History Past Medical History: Cancer, Diabetes Mellitus, Deep Vein Thrombosis (DVT), Hypertension, Renal Disease, Rheumatoid Arthritis (RA), Thyroid Disorder Additional Past Medical History / Comment(s): O2 @ 4L. SLE LUPUS. STAGE 3 KIDNEY DISEASE. Leukemia, GRAVES DZ , kidney stones, gout, ovarian cancer (recent diagnosis, no treatment yet) History of Any Multi-Drug Resistant Organisms: None Reported Past Surgical History: No Surgical Hx Reported Additional Past Surgical History / Comment(s): BILATERAL ARTHROSCOPY KNEES. D & C (MISCARRIAGES). Past Anesthesia/Blood Transfusion Reactions: No Reported Reaction Past Psychological History: Anxiety Smoking Status: Never smoker Past Alcohol Use History: None Reported Past Drug Use History: None Reported - Past Family History Mother Family Medical History: Congestive Heart Failure (CHF), Diabetes Mellitus Father Family Medical History: Congestive Heart Failure (CHF), Dialysis, Hypertension Medications and Allergies Home Medications Medication Instructions Recorded Confirmed Type FLUoxetine HCL [PROzac] 20 mg PO BID 01/09/17 03/17/22 History Gabapentin [Neurontin] 600 mg PO BID 01/09/17 03/17/22 History Glimepiride [Amaryl] 4 mg PO BID 01/09/17 03/17/22 History Hydroxychloroquine Sulfate 200 mg PO BID 01/09/17 03/17/22 History [Plaquenil] Montelukast [Singulair] 10 mg PO DAILY 01/09/17 03/17/22 History gemfibroziL [Lopid] 600 tab PO BID 01/09/17 03/17/22 History hydrOXYzine HCL [Atarax] 25 mg PO QID 01/09/17 03/17/22 History Albuterol Inhaler [Ventolin Hfa 2 puff INHALATION RT-Q4H PRN 01/14/17 03/17/22 History Inhaler] Albuterol Nebulized [Ventolin 2.5 mg INHALATION RT-QID PRN 01/14/17 03/17/22 History Nebulized] allopurinoL [Zyloprim] 100 mg PO BID 01/21/22 03/17/22 History Aspirin EC [Ecotrin] 325 mg PO DAILY 02/15/22 03/17/22 History Atorvastatin [Lipitor] 10 mg PO HS 02/15/22 03/17/22 History Furosemide [Lasix] 80 mg PO DAILY 02/15/22 03/17/22 History Metoprolol Succinate (ER) [Toprol 25 mg PO DAILY 02/15/22 03/17/22 History XL] Metoprolol Succinate (ER) [Toprol 50 mg PO DAILY 02/15/22 03/17/22 History XL] Ondansetron [Zofran] 4 mg PO Q12HR PRN 02/15/22 03/17/22 History Pantoprazole [Protonix] 40 mg PO BID 02/15/22 03/17/22 History Primidone [Mysoline] 50 mg PO HS 02/15/22 03/17/22 History INSULIN ASPART (NovoLOG) [NovoLOG See Protocol SQ ACHS 30 Days #1 02/19/22 03/17/22 Rx (formulary)] each Insulin Detemir (Levemir) [Levemir] 35 unit SQ HS 30 Days #1 each 02/19/22 03/17/22 Rx Fluticasone/Vilanterol [Breo 1 inhalation INHALATION BID 30 02/24/22 03/17/22 Rx Ellipta 200-25 Mcg Inhaler] Days #1 each Allergies Allergy/AdvReac Type Severity Reaction Status Date / Time ciprofloxacin [From Cipro] Allergy Swelling Verified 03/17/22 11:15 diphenhydramine Allergy Swelling Verified 03/17/22 11:15 [From Benadryl] iodine Allergy Swelling Verified 03/17/22 11:15 propoxyphene Allergy Swelling Verified 03/17/22 11:15 [From Darvocet-N] red dye Allergy Swelling Verified 03/17/22 11:15 sulfacetamide Allergy Swelling Verified 03/17/22 11:15 [From Sulfamide] yellow dye Allergy Swelling Verified 03/17/22 11:15 FLU VACCINE? Allergy Unknown Uncoded 03/17/22 11:15 Exam Vital Signs Temp Pulse Pulse Resp BP BP Pulse Ox 03/19/22 11:40 97.7 F 107 H 16 81/53 100 03/19/22 04:07 99.9 F H 111 H 16 105/64 98 03/19/22 00:00 114 H 103/67 95 03/18/22 23:05 110 H 104/66 97 03/18/22 22:30 121 H 94 L 03/18/22 22:05 110 H 107/69 97 03/18/22 21:55 108 H 116/77 97 03/18/22 21:40 106 H 113/74 98 03/18/22 21:30 18 03/18/22 21:20 104 H 131/71 99 03/18/22 21:05 107 H 112/72 99 03/18/22 20:45 108 H 18 110/59 96 03/18/22 20:30 107 H 18 112/57 96 03/18/22 20:15 105 H 20 115/56 97 03/18/22 20:00 106 H 18 118/62 97 03/18/22 19:45 109 H 20 133/64 95 03/18/22 19:30 97.0 F L 107 H 25 H 127/67 90 L Intake and Output 03/19/22 03/19/22 03/19/22 06:59 14:59 22:59 Output Total 166 Balance -166 Output: Post Void Residual 166 Other: Weight 138.346 kg Focused physical exam is performed. Patient is obese. Patient on nasal canula, appears uncomfortable. No blood is noted on the diaper. Per RN, the patient has had only faint bloody discharge today and on her last diaper change there was no blood. Results Result Diagrams: 03/19/22 03:32 03/19/22 03:32 Abnormal Lab Results - Last 24 Hours (Table) 03/18/22 03/18/22 03/18/22 Range/Units 16:54 19:36 21:21 WBC (3.8-10.6) k/uL RBC (3.80-5.40) m/uL Hgb (11.4-16.0) gm/dL Hct (34.0-46.0) % MCHC (32.0-37.0) g/dL Immature Gran # (0.00-0.04) X 10*3/uL Neutrophils # (1.3-7.7) k/uL Monocytes # (0-1.0) k/uL Potassium (3.5-5.5) mmol/L Carbon Dioxide (20.0-27.5) mmol/L BUN (9.0-27.0) mg/dL Creatinine (0.6-1.5) mg/dL Est GFR (CKD-EPI)AfAm (60.0-200.0) Est GFR (CKD-EPI)NonAf (60.0-200.0) Glucose (70-110) mg/dL POC Glucose (mg/dL) 226 H 274 H 296 H (70-110) mg/dL Calcium (8.7-10.3) mg/dL 03/18/22 03/19/22 03/19/22 Range/Units 22:44 03:32 03:32 WBC 22.8 H 16.35 H (3.8-10.6) k/uL RBC 3.56 L 3.27 L (3.80-5.40) m/uL Hgb 9.7 L 8.9 L (11.4-16.0) gm/dL Hct 30.2 L 28.6 L (34.0-46.0) % MCHC 31.1 L (32.0-37.0) g/dL Immature Gran # 0.20 H (0.00-0.04) X 10*3/uL Neutrophils # 19.6 H 13.00 H (1.3-7.7) k/uL Monocytes # 1.1 H (0-1.0) k/uL Potassium 6.2 H* (3.5-5.5) mmol/L Carbon Dioxide 19.5 L (20.0-27.5) mmol/L BUN 36.9 H (9.0-27.0) mg/dL Creatinine 2.1 H (0.6-1.5) mg/dL Est GFR (CKD-EPI)AfAm 30.0 L (60.0-200.0) Est GFR (CKD-EPI)NonAf 25.8 L (60.0-200.0) Glucose 312 H (70-110) mg/dL POC Glucose (mg/dL) (70-110) mg/dL Calcium 8.6 L (8.7-10.3) mg/dL 03/19/22 03/19/22 Range/Units 07:55 12:21 WBC (3.8-10.6) k/uL RBC (3.80-5.40) m/uL Hgb (11.4-16.0) gm/dL Hct (34.0-46.0) % MCHC (32.0-37.0) g/dL Immature Gran # (0.00-0.04) X 10*3/uL Neutrophils # (1.3-7.7) k/uL Monocytes # (0-1.0) k/uL Potassium (3.5-5.5) mmol/L Carbon Dioxide (20.0-27.5) mmol/L BUN (9.0-27.0) mg/dL Creatinine (0.6-1.5) mg/dL Est GFR (CKD-EPI)AfAm (60.0-200.0) Est GFR (CKD-EPI)NonAf (60.0-200.0) Glucose (70-110) mg/dL POC Glucose (mg/dL) 284 H 349 H (70-110) mg/dL Calcium (8.7-10.3) mg/dL Assessment and Plan Assessment: 56 y/o with clinical stage 1 endometrioid adenocarcinoma of the uterus, hospitalized s/p hip fracture and repair, noted to have postmenopausal bleeding. Plan: - Pt being followed by Dr. Abrams with [facility] at [facility] (next appt was supposed to be 03/20) and Dr. Bradford with radiology oncology (next appointment was supposed to be 03/22). Patient was determined to be a poor surgical candidate, therefore radiotherapy was determined to be the best course of treatment at this time. Dr. Bradford ordered MRI of pelvis to target therapy - Recommend MRI of the pelvis with and without contrast while inpatient to expedite radiotherapy - Patient will continue to have vaginal bleeding off and on until she undergoes treatment with Rad Onc. Recommend blood transfusion for Hgb below 7. Dispo: Will sign off of this patient. She will need to follow up with Dr. Abrams and Dr. Bradford promptly after discharge. Please reach out for any other concerns or questions. Time with Patient: Greater than 30
[2022-03-19] MEDS ORDERED: MIDODRINE 5 MG TAB PO SCH (18:55)
[2022-03-19] MEDS ORDERED: SODIUM CHLORIDE 0.9% 1,000 ML IV ONE (18:55)
[2022-03-19 20:22] LABS: Glucose,Whole Blood 178 mg/dL (70-110)
[2022-03-19] MEDS: ATORVASTATIN 10 MG TAB PO SCH (21:23)
[2022-03-19] MEDS: FENOFIBRATE 160 MG TAB PO SCH (21:23)
[2022-03-19] MEDS: PRIMIDONE 50 MG TAB PO SCH (21:24)
[2022-03-19] MEDS: SENNOSIDES-DOCUSATE SODIUM 1 EACH TAB PO SCH (21:24)
[2022-03-20] MEDS ORDERED: MIDODRINE 5 MG TAB PO STA (02:58)
[2022-03-20] MEDS: SODIUM CHLORIDE 0.9% 1,000 ML IV SCH (04:04)
[2022-03-20 04:07] LABS: Calcium 8.7 mg/dL (8.4-10.2); Potassium 5.1 mmol/L (3.5-5.1)
[2022-03-20 04:20] LABS: HCT 30.3 % (34.0-46.0); HGB 9.7 gm/dL (11.4-16.0); Hypochromasia Moderate; MCH 27.8 pg (25.0-35.0); MCV 86.8 fL (80.0-100.0); Mean Platelet Volume 9.6; Platelet Count 241 k/uL (150-450); RBC 3.49 m/uL (3.80-5.40); RDW 14.5 % (11.5-15.5); WBC 17.9 k/uL (3.8-10.6)
[2022-03-20 06:10] LABS: Glucose,Whole Blood 150 mg/dL (70-110)
[2022-03-20 06:39] LABS: Band Neutrophils % 2 %; Eosinophils # (M) 0.72 k/uL (0-0.7); Lymphocytes # (M) 3.58 k/uL (1.0-4.8); Monocytes # (M) 1.07 k/uL (0-1.0); Neutrophils % (M) 68 %; Nucleated Red Blood Cells 0 /100 WBC (0-0); Total Cells Counted 100
[2022-03-20 06:40] LABS: Anisocytosis (M) Present; Polychromasia Present
[2022-03-20] MEDS: PANTOPRAZOLE 40 MG TABLET PO SCH ×2 (06:43→17:26)
[2022-03-20] MEDS: MIDODRINE 5 MG TAB PO SCH ×3 (06:43→17:26)
[2022-03-20] MEDS: SYMBICORT 160-4.5 MCG INHALER INHALATION SCH ×2 (07:34→20:11)
[2022-03-20] MEDS: INSULIN ASPART (NovoLOG) 100 UNIT/ML VIAL SQ SCH ×7 (07:41→20:47)
[2022-03-20] MEDS: INSULIN DETEMIR (LEVEMIR) 100 UNIT/ML SYR SQ SCH ×2 (08:19→20:45)
[2022-03-20] MEDS: SODIUM BICARBONATE TAB 650 MG TAB PO SCH ×2 (08:21→20:46)
[2022-03-20] MEDS: allopurinoL 100 MG TAB PO SCH ×2 (08:21→20:46)
[2022-03-20] MEDS: MONTELUKAST 10 MG TAB PO SCH (08:21)
[2022-03-20] MEDS: ASPIRIN 81 MG PO SCH ×2 (08:21→20:46)
[2022-03-20] MEDS: FLUoxetine HCL 20 MG CAP PO SCH ×2 (08:21→20:46)
[2022-03-20] MEDS: GABAPENTIN 300 MG CAP PO SCH ×2 (08:22→20:46)
[2022-03-20 09:23] LABS: Magnesium 1.8 mg/dL (1.5-2.4)
[2022-03-20 09:35] LABS: Anion Gap 17.7 mmol/L (10.00-18.00); BUN/Creat Ratio 12.81 Ratio (12.00-20.00); Calcium 8.9 mg/dL (8.7-10.3); Carbon Dioxide 19.3 mmol/L (20.0-27.5); Non-African American GFR(CKD) 15.5 (60.0-200.0); Potassium 5.1 mmol/L (3.5-5.5)
[2022-03-20] MEDS: METOPROLOL SUCCINATE (ER) 25 MG TAB.ER.24H PO SCH (09:42)
[2022-03-20] MEDS: HEPARIN SODIUM,PORCINE/PF 5,000 UNIT/0.5 ML SYRINGE SQ SCH ×2 (10:32→20:45)
[2022-03-20] MEDS ORDERED: SODIUM BICARB 8.4% 50 ML SYR (1 MEQ/ML) IV STA (11:26)
--- NOTE | 2022-03-20 11:34 | P.PN ---
Subjective Patient is seen in follow-up for acute kidney injury on chronic kidney disease. Renal function worsening. Creatinine 2.94 today. Patient was hypotensive last night and received 1 L of normal saline bolus. She was also started on midodrine. She is also receiving maintenance IV fluids. She was transferred to telemetry floor. Currently resting in bed. She is awake. Oral intake is just fair. Denies vomiting or diarrhea. Vital signs are stable. Blood pressure on the lower side. General: Awake. No acute distress. HEENT: Head exam is unremarkable. LUNGS: Breath sounds decreased. HEART: Rate and Rhythm are regular. ABDOMEN: Soft, no distention. EXTREMITITES: No edema. Objective - Vital Signs Vital signs: Vital Signs Temp 97.8 F 03/20/22 08:00 Pulse 96 03/20/22 08:00 Resp 16 03/20/22 08:00 BP 101/66 03/20/22 08:00 Pulse Ox 96 03/20/22 08:00 FiO2 Intake & Output 03/19/22 03/20/22 03/20/22 18:59 06:59 18:59 Intake Total 118 Output Total 166 0 Balance -166 0 118 Weight 138.346 kg 139.5 kg Intake: Oral 118 Output: Urine 0 Post Void Residual 166 Other: Voiding Method External Catheter # Voids 1 - Labs CBC & Chem 7: 03/20/22 03:31 03/20/22 03:31 Labs: Abnormal Lab Results - Last 24 Hours (Table) 03/19/22 03/19/22 03/19/22 Range/Units 12:21 16:12 16:59 WBC (3.8-10.6) k/uL RBC (3.80-5.40) m/uL Hgb (11.4-16.0) gm/dL Hct (34.0-46.0) % Neutrophils # (Manual) (1.3-7.7) k/uL Monocytes # (Manual) (0-1.0) k/uL Eosinophils # (Manual) (0-0.7) k/uL Potassium 5.4 H (3.5-5.1) mmol/L Carbon Dioxide (20.0-27.5) mmol/L BUN (9.0-27.0) mg/dL Creatinine (0.6-1.5) mg/dL Est GFR (CKD-EPI)AfAm (60.0-200.0) Est GFR (CKD-EPI)NonAf (60.0-200.0) Glucose (70-110) mg/dL POC Glucose (mg/dL) 349 H (70-110) mg/dL Urine Appearance Cloudy H (Clear) Urine Protein 1+ H (Negative) Urine Ketones Trace H (Negative) Urine Blood Trace H (Negative) Ur Leukocyte Esterase Large H (Negative) Urine RBC 14 H (0-5) /hpf Urine WBC >182 H (0-5) /hpf Urine Bacteria Many H (None) /hpf Hyaline Casts 26 H (0-2) /lpf Urine Mucus Rare H (None) /hpf Urine Yeast (Budding) Many H (None) /hpf 03/19/22 03/19/22 03/20/22 Range/Units 17:21 20:20 03:31 WBC (3.8-10.6) k/uL RBC (3.80-5.40) m/uL Hgb (11.4-16.0) gm/dL Hct (34.0-46.0) % Neutrophils # (Manual) (1.3-7.7) k/uL Monocytes # (Manual) (0-1.0) k/uL Eosinophils # (Manual) (0-0.7) k/uL Potassium (3.5-5.1) mmol/L Carbon Dioxide 19.3 L (20.0-27.5) mmol/L BUN 41.0 H (9.0-27.0) mg/dL Creatinine 3.2 H (0.6-1.5) mg/dL Est GFR (CKD-EPI)AfAm 18.0 L (60.0-200.0) Est GFR (CKD-EPI)NonAf 15.5 L (60.0-200.0) Glucose 123 H (70-110) mg/dL POC Glucose (mg/dL) 179 H 178 H (70-110) mg/dL Urine Appearance (Clear) Urine Protein (Negative) Urine Ketones (Negative) Urine Blood (Negative) Ur Leukocyte Esterase (Negative) Urine RBC (0-5) /hpf Urine WBC (0-5) /hpf Urine Bacteria (None) /hpf Hyaline Casts (0-2) /lpf Urine Mucus (None) /hpf Urine Yeast (Budding) (None) /hpf 03/20/22 03/20/22 03/20/22 Range/Units 03:31 03:31 06:09 WBC 17.9 H (3.8-10.6) k/uL RBC 3.49 L (3.80-5.40) m/uL Hgb 9.7 L (11.4-16.0) gm/dL Hct 30.3 L (34.0-46.0) % Neutrophils # (Manual) 12.50 H (1.3-7.7) k/uL Monocytes # (Manual) 1.07 H (0-1.0) k/uL Eosinophils # (Manual) 0.72 H (0-0.7) k/uL Potassium (3.5-5.1) mmol/L Carbon Dioxide 19 L (20.0-27.5) mmol/L BUN 42 H (9.0-27.0) mg/dL Creatinine 2.94 H (0.6-1.5) mg/dL Est GFR (CKD-EPI)AfAm (60.0-200.0) Est GFR (CKD-EPI)NonAf (60.0-200.0) Glucose 128 H (70-110) mg/dL POC Glucose (mg/dL) 150 H (70-110) mg/dL Urine Appearance (Clear) Urine Protein (Negative) Urine Ketones (Negative) Urine Blood (Negative) Ur Leukocyte Esterase (Negative) Urine RBC (0-5) /hpf Urine WBC (0-5) /hpf Urine Bacteria (None) /hpf Hyaline Casts (0-2) /lpf Urine Mucus (None) /hpf Urine Yeast (Budding) (None) /hpf Microbiology - Last 24 Hours (Table) 03/19/22 16:12 Urine Culture - Preliminary Urine,Catheterized Assessment and Plan Plan: Assessment: 1. Acute kidney injury mostly prerenal secondary to hypovolemia from severe hyperglycemia. Further worsened due to severe hypotension with blood pressure in the systolic 70s. Renal function worse. Creatinine 2.94 today. No hydronephrosis noted on kidney ultrasound although right kidney was not visualized. 2. Chronic kidney disease stage IIIB secondary to diabetic kidney disease. Baseline creatinine near 1.5. 3. History of lupus maintained on Plaquenil outpatient. Patient's UA from 02/14/2022 showed only 1 RBC. 4. Pyuria. On antibiotics. 5. Diabetes mellitus. Uncontrolled on admission. 6. Left femur fracture status post surgical repair 03/18/2022. 7. Hyperkalemia secondary to acute kidney injury, hyperglycemia and acidosis. Improved. 8. Endometrial cancer being followed by oncology outpatient. Plan: Maintain normal saline at 75 mL an hour. Follow-up cultures. Continue to hold diuretics. Avoid nephrotoxins. Blood sugar control. Strict is and os. Maintain midodrine. Hold for systolic blood pressure greater than 110. Check cortisol level. Add lokelma daily.
[2022-03-20 11:56] LABS: Glucose,Whole Blood 228 mg/dL (70-110)
[2022-03-20] MEDS: SODIUM ZIRCONIUM CYCLOSILICATE 10 GM PACKET PO SCH (13:15)
--- NOTE | 2022-03-20 15:08 | P.PN ---
Subjective Progress Note Date: 03/20/22 This patient is a 56- year old female who is status-post operative fixation of left subtrochanteric femur fracture with long cephalo-medullary nail on 03/18/22. Today is postoperative day #2. The patient is examined bedside this afternoon with Dr. Disla. Patient was transferred to selective floor due to hypotension. Patient states she was up to the bedside chair yesterday for about 3 hours. Her hip pain is overall well controlled at this time. She is doing well in regards to her left hip. Objective - Vital Signs Vital signs: Vital Signs Temp 100.2 F H 03/20/22 12:00 Pulse 95 03/20/22 12:00 Resp 16 03/20/22 12:00 BP 106/69 03/20/22 12:00 Pulse Ox 92 L 03/20/22 12:00 FiO2 Intake & Output 03/19/22 03/20/22 03/20/22 18:59 06:59 18:59 Intake Total 118 Output Total 166 0 Balance -166 0 118 Weight 138.346 kg 139.5 kg Intake: Oral 118 Output: Urine 0 Post Void Residual 166 Other: Voiding Method External Catheter # Voids 1 - Exam On examination, the patient is sitting up in bed in no apparent distress. She is alert and orientated 3. Nasal cannula in place. On inspection of her left hip, there are 2 clean, dry, intact Opsite surgical dressings in place with no bleeding or drainage through the dressings. Dressings were reinforced with tegaderm. Motor and sensory function is intact of the left lower extremity. Left lower extremity warm and well perfused. - Labs CBC & Chem 7: 03/20/22 17:53 03/20/22 03:31 Labs: Abnormal Lab Results - Last 24 Hours (Table) 03/19/22 03/19/22 03/19/22 Range/Units 16:12 16:59 17:21 WBC (3.8-10.6) k/uL RBC (3.80-5.40) m/uL Hgb (11.4-16.0) gm/dL Hct (34.0-46.0) % Neutrophils # (Manual) (1.3-7.7) k/uL Monocytes # (Manual) (0-1.0) k/uL Eosinophils # (Manual) (0-0.7) k/uL Potassium 5.4 H (3.5-5.1) mmol/L Carbon Dioxide (20.0-27.5) mmol/L BUN (9.0-27.0) mg/dL Creatinine (0.6-1.5) mg/dL Est GFR (CKD-EPI)AfAm (60.0-200.0) Est GFR (CKD-EPI)NonAf (60.0-200.0) Glucose (70-110) mg/dL POC Glucose (mg/dL) 179 H (70-110) mg/dL Urine Appearance Cloudy H (Clear) Urine Protein 1+ H (Negative) Urine Ketones Trace H (Negative) Urine Blood Trace H (Negative) Ur Leukocyte Esterase Large H (Negative) Urine RBC 14 H (0-5) /hpf Urine WBC >182 H (0-5) /hpf Urine Bacteria Many H (None) /hpf Hyaline Casts 26 H (0-2) /lpf Urine Mucus Rare H (None) /hpf Urine Yeast (Budding) Many H (None) /hpf 03/19/22 03/20/22 03/20/22 Range/Units 20:20 03:31 03:31 WBC 17.9 H (3.8-10.6) k/uL RBC 3.49 L (3.80-5.40) m/uL Hgb 9.7 L (11.4-16.0) gm/dL Hct 30.3 L (34.0-46.0) % Neutrophils # (Manual) 12.50 H (1.3-7.7) k/uL Monocytes # (Manual) 1.07 H (0-1.0) k/uL Eosinophils # (Manual) 0.72 H (0-0.7) k/uL Potassium (3.5-5.1) mmol/L Carbon Dioxide 19.3 L (20.0-27.5) mmol/L BUN 41.0 H (9.0-27.0) mg/dL Creatinine 3.2 H (0.6-1.5) mg/dL Est GFR (CKD-EPI)AfAm 18.0 L (60.0-200.0) Est GFR (CKD-EPI)NonAf 15.5 L (60.0-200.0) Glucose 123 H (70-110) mg/dL POC Glucose (mg/dL) 178 H (70-110) mg/dL Urine Appearance (Clear) Urine Protein (Negative) Urine Ketones (Negative) Urine Blood (Negative) Ur Leukocyte Esterase (Negative) Urine RBC (0-5) /hpf Urine WBC (0-5) /hpf Urine Bacteria (None) /hpf Hyaline Casts (0-2) /lpf Urine Mucus (None) /hpf Urine Yeast (Budding) (None) /hpf 03/20/22 03/20/22 03/20/22 Range/Units 03:31 06:09 11:52 WBC (3.8-10.6) k/uL RBC (3.80-5.40) m/uL Hgb (11.4-16.0) gm/dL Hct (34.0-46.0) % Neutrophils # (Manual) (1.3-7.7) k/uL Monocytes # (Manual) (0-1.0) k/uL Eosinophils # (Manual) (0-0.7) k/uL Potassium (3.5-5.1) mmol/L Carbon Dioxide 19 L (20.0-27.5) mmol/L BUN 42 H (9.0-27.0) mg/dL Creatinine 2.94 H (0.6-1.5) mg/dL Est GFR (CKD-EPI)AfAm (60.0-200.0) Est GFR (CKD-EPI)NonAf (60.0-200.0) Glucose 128 H (70-110) mg/dL POC Glucose (mg/dL) 150 H 228 H (70-110) mg/dL Urine Appearance (Clear) Urine Protein (Negative) Urine Ketones (Negative) Urine Blood (Negative) Ur Leukocyte Esterase (Negative) Urine RBC (0-5) /hpf Urine WBC (0-5) /hpf Urine Bacteria (None) /hpf Hyaline Casts (0-2) /lpf Urine Mucus (None) /hpf Urine Yeast (Budding) (None) /hpf Microbiology - Last 24 Hours (Table) 03/19/22 16:12 Urine Culture - Preliminary Urine,Catheterized Assessment and Plan Assessment: Status-post operative fixation of left subtrochanteric femur fracture with long cephalo-medullary nail on 03/18/22. Post-operative day #2. Plan: - Weight bear to tolerance on operative extremity with a walker. Up with assistance. - Physical therapy for gait and balance training. - Keep operative dressings intact. - Medical management per internal medicine. Will defer to IM for DVT prophylaxis as patient has history of DVT. Patient currently on Heparin inpatient per Dr. Cunningham. - Will follow closely. Agree with above note. I would like to defer DVT prophylaxis to the primary service. I normally manage my patient's DVT prophylaxis following surgery, but this patient has MULTIPLE medical co-morbidities (BMI 50, poorly controlled diabetes, renal insufficiency with her most recent creatinine 2.94, active vaginal bleeding etc.) and is at a high risk for having a DVT/PE given her weight, hip fracture and questionable history of DVT. Given all this, particularly her poor kidney function, active vaginal bleeding, and high risk for DVT, I feel like it would be more appropriate for internal medicine to address her DVT prophylaxis.
[2022-03-20 16:40] LABS: Glucose,Whole Blood 177 mg/dL (70-110)
--- NOTE | 2022-03-20 16:41 | P.PN ---
Subjective Progress Note Date: 03/20/22 Principal diagnosis: Severe asthma. Pulmonary consult dated 03/18/2022. 56-year-old obese female, who presented to the emergency department on March 16, having fallen at home. The patient fell off the couch was unable to get up. She was complaining of left hip pain. The patient was discovered to have a fractured hip, and is apparently going for surgery sometime later today. We were consulted for preoperative evaluation and clearance. The patient does have a history of severe asthma, and sees my partner for that. Her primary care provider is Dr. Alicea. She also sees Dr. Sparks for her kidney disease. The patient's currently on 4 L. She remains on 4 L. This is her home dose. The patient's getting saline at 50 mL an hour. She is a lifelong nonsmoker. The pa juan ramon uses home oxygen at 4 L as well. She has a history of uterine cancer, diabetes, DVT, hypertension, rheumatoid arthritis, stage III kidney disease, kidney stones, and gout among other things. I saw her about a month ago here in the hospital for coronavirus infection, with primary GI issues including nausea, vomiting, etc. She did not have coronavirus associated pneumonia. White count 10.8, hemoglobin 9.9, hematocrit 30.9, and platelet count is normal. Sodium, potassium, chloride, CO2, and anion gap all normal. BUN 35, with a creatinine of 1.45. Urinalysis suggestive of possible urinary tract infection. Chest x- ray difficult to interpret. There appears to be no acute abnormality on chest x-ray, although her chest x-ray honestly because of body habitus, it is difficult to interpret. Progress note dated 03/19/2022. The patient is seen today in room 516. She had her left hip repair yesterday by one of the orthopedic surgeons. Apparently everything went well. She is on 4 L of oxygen. She's on at home. She's getting saline at 20 mL an hour. Today is postop day #1. Other than pain, she is doing well. No new labs today other than a glucose of 284. Progress note dated 03/20/2022. 56-year-old female seen in room 362. She had a left hip repair, done on March 18. We did a preoperative clearance. She apparently was moved down to the third floor, because of hypotension. Currently, the patient's on saline at 75 mL an hour. She uses 4 L at home. White count 17.9, hemoglobin 9.7, hematocrit 30.8, and platelet count 241,000. Sodium 138, potassium 5.1, chlor ides 105, CO2 19, anion gap 14, BUN 42, and creatinine 2.94. Magnesium is 1.8. Doppler of the leg was negative for DVT. The patient apparently also developed some vaginal bleeding. Objective - Vital Signs Vital signs: Vital Signs Temp 97.6 F 03/20/22 16:00 Pulse 96 03/20/22 16:00 Resp 17 03/20/22 16:00 BP 98/64 03/20/22 16:00 Pulse Ox 94 L 03/20/22 16:00 FiO2 Intake & Output 03/19/22 03/20/22 03/20/22 18:59 06:59 18:59 Intake Total 118 Output Total 166 0 Balance -166 0 118 Weight 138.346 kg 139.5 kg Intake: Oral 118 Output: Urine 0 Post Void Residual 166 Other: Voiding Method External Catheter # Voids 1 - Exam No acute distress, oriented 3. Currently on 4 L of oxygen. No respiratory distress, use of accessory muscles, or conversational dyspnea. HEENT examination is grossly unremarkable. Neck supple. Full range of motion. No adenopathy thyromegaly or neck vein distention. Cardiovascular examination reveals regular rhythm rate. S1-S2 normal. No S3 or S4. No discernible murmur noted. Heart sounds are distant. Heart rate 96 bpm. Lungs reveal mostly clear breath sounds. Breath sounds are equal bilaterally. Mild scattered rhonchi without wheezes or crackles. 4 L saturation is 94 %. Abdomen soft bowel sounds are heard. No masses or tenderness. Extremities are intact. No cyanosis clubbing or edema. Skin is without rash or lesion. Neurologic examination is brief but nonfocal. - Labs CBC & Chem 7: 03/20/22 03:31 03/20/22 03:31 Labs: Abnormal Lab Results - Last 24 Hours (Table) 03/19/22 03/19/22 03/19/22 Range/Units 16:12 16:59 17:21 WBC (3.8-10.6) k/uL RBC (3.80-5.40) m/uL Hgb (11.4-16.0) gm/dL Hct (34.0-46.0) % Neutrophils # (Manual) (1.3-7.7) k/uL Monocytes # (Manual) (0-1.0) k/uL Eosinophils # (Manual) (0-0.7) k/uL Potassium 5.4 H (3.5-5.1) mmol/L Carbon Dioxide (20.0-27.5) mmol/L BUN (9.0-27.0) mg/dL Creatinine (0.6-1.5) mg/dL Est GFR (CKD-EPI)AfAm (60.0-200.0) Est GFR (CKD-EPI)NonAf (60.0-200.0) Glucose (70-110) mg/dL POC Glucose (mg/dL) 179 H (70-110) mg/dL Urine Appearance Cloudy H (Clear) Urine Protein 1+ H (Negative) Urine Ketones Trace H (Negative) Urine Blood Trace H (Negative) Ur Leukocyte Esterase Large H (Negative) Urine RBC 14 H (0-5) /hpf Urine WBC >182 H (0-5) /hpf Urine Bacteria Many H (None) /hpf Hyaline Casts 26 H (0-2) /lpf Urine Mucus Rare H (None) /hpf Urine Yeast (Budding) Many H (None) /hpf 03/19/22 03/20/22 03/20/22 Range/Units 20:20 03:31 03:31 WBC 17.9 H (3.8-10.6) k/uL RBC 3.49 L (3.80-5.40) m/uL Hgb 9.7 L (11.4-16.0) gm/dL Hct 30.3 L (34.0-46.0) % Neutrophils # (Manual) 12.50 H (1.3-7.7) k/uL Monocytes # (Manual) 1.07 H (0-1.0) k/uL Eosinophils # (Manual) 0.72 H (0-0.7) k/uL Potassium (3.5-5.1) mmol/L Carbon Dioxide 19.3 L (20.0-27.5) mmol/L BUN 41.0 H (9.0-27.0) mg/dL Creatinine 3.2 H (0.6-1.5) mg/dL Est GFR (CKD-EPI)AfAm 18.0 L (60.0-200.0) Est GFR (CKD-EPI)NonAf 15.5 L (60.0-200.0) Glucose 123 H (70-110) mg/dL POC Glucose (mg/dL) 178 H (70-110) mg/dL Urine Appearance (Clear) Urine Protein (Negative) Urine Ketones (Negative) Urine Blood (Negative) Ur Leukocyte Esterase (Negative) Urine RBC (0-5) /hpf Urine WBC (0-5) /hpf Urine Bacteria (None) /hpf Hyaline Casts (0-2) /lpf Urine Mucus (None) /hpf Urine Yeast (Budding) (None) /hpf 03/20/22 03/20/22 03/20/22 Range/Units 03:31 06:09 11:52 WBC (3.8-10.6) k/uL RBC (3.80-5.40) m/uL Hgb (11.4-16.0) gm/dL Hct (34.0-46.0) % Neutrophils # (Manual) (1.3-7.7) k/uL Monocytes # (Manual) (0-1.0) k/uL Eosinophils # (Manual) (0-0.7) k/uL Potassium (3.5-5.1) mmol/L Carbon Dioxide 19 L (20.0-27.5) mmol/L BUN 42 H (9.0-27.0) mg/dL Creatinine 2.94 H (0.6-1.5) mg/dL Est GFR (CKD-EPI)AfAm (60.0-200.0) Est GFR (CKD-EPI)NonAf (60.0-200.0) Glucose 128 H (70-110) mg/dL POC Glucose (mg/dL) 150 H 228 H (70-110) mg/dL Urine Appearance (Clear) Urine Protein (Negative) Urine Ketones (Negative) Urine Blood (Negative) Ur Leukocyte Esterase (Negative) Urine RBC (0-5) /hpf Urine WBC (0-5) /hpf Urine Bacteria (None) /hpf Hyaline Casts (0-2) /lpf Urine Mucus (None) /hpf Urine Yeast (Budding) (None) /hpf Microbiology - Last 24 Hours (Table) 03/19/22 16:12 Urine Culture - Preliminary Urine,Catheterized Assessment and Plan Assessment: Status post fall, with fracture of the left hip,S/P repair, March 18, postop day #2. Transient postoperative hypotension, with vaginal bleeding. Severe chronic bronchial asthma, with chronic hypoxemic respiratory failure, currently on 4 L of oxygen, and at baseline. Recent admission about one month ago, for coronavirus infection, and primary GI symptoms. History of hypertension. History of heart failure. History of stage III chronic kidney disease. Diabetes mellitus. Morbid obesity. Graves' disease. History of DVT. History of stage 1 uterine cancer. Multiple other medical problems and comorbidities. Plan: Plan dated 03/18/2022. Although the patient has a multitude of medical problems, she's pretty much stable and at baseline. Certainly, all of her medical problems, and her morbid obesity, put her at increased risk for axcomplication from surgery, but I think it's reasonable to proceed, given the fact that she needs surgery for the left hip repair. We will continue to follow make recommendations along the way. Prognosis is guarded. I was very honest with the patient and explained that she could have a complication after surgery. I did pass onto the nurse that we did clear her for surgery. Plan dated 03/19/2022. The patient did well with surgery. Today's postop day #1. She does have pain at the surgical site. She is on 4 L, which is what she takes at home. Labs, x- rays, medications are reviewed. We asked her to continue to deep breathe, cough, clear any secretions. Incentive spirometry would be a good thing. We will continue to follow. Plan dated 03/20/2022. The patient was moved to the third floor because of hypotension, and vaginal bleeding. The patient was seen by [facility]. Labs, x-rays, medications are reviewed. Respiratory status is stable. No additional recommendations are made. We will continue to follow. Today's postop day #2. Time with Patient: Less than 30
--- NOTE | 2022-03-20 17:01 | P.PN ---
Subjective History of present illness; patient is 56-year-old lady with past medical history significant for insulin-dependent diabetes mellitus, hypertension, hyperlipidemia presented to the ER because of fall. Patient was all right yesterday evening when while she was watching TV and trying to get out of her couch she lost her balance and fell on her buttocks. She didn't lose any consciousness. Patient denied any seizure-like activity. Patient had no prior episode of any bone. Patient did not hit her head. Because of this fall patient came to the ER. In the ER, initial lab work showed patient to have a white count of 13.6, hemoglobin of 10.7, sodium 134, potassium 6, anion gap 10, creatinine 1.69, initial glucose was elevated at 75. X-ray of left hip and pelvis are negative for any fractures. Patient was admitted for further evaluation and treatment 03/18/2022 Patient presents because of fall, patient states that she was watching TV and started up to turn off her TV when she felt dizzy lightheaded left spondylosis and fell on her left hip area suffering from hip fracture. Patient still complaining from pain about 9/10 in severity this morning in her left hip area with plan for left hip arthroplasty by surgery team Patient states that she is diabetic and she takes Levemir 50 units twice a day with insulin sliding scale now scheduled insulin with meals. Her nurse practitioner manager is Dr. Valdivia. She denies chest pain or dyspnea, no headache or weakness or dizziness, no abdominal pain vomiting or diarrhea. Dysuria or urgency. she is on 4 litre of oxygen at home for chronic asthma and recurrent pneumonias, her pulmnoloigst is dr. garcia We will continue with Levemir 15 units twice a day and NovoLog 15 units with meals and I'll keep potential, after the procedure. She is hemodynamically stable. Creatinine is trending down 1.4 today. CBC is still pending. The sternum 1.7, we'll give 1 time dose of magnesium sulfide 1 g 1 because she is going for surgery Also she was placed on normal saline at 50 mL/h. 03/19/2022 Patient is status post surgical fixation of her left subtrochanteric fracture with medullary nail. Today is postop day #1. She is fully awake and oriented she is complain from some pain at the surgical site which is expected. No chest pain or dyspnea. No abdominal pain. Her blood pressure was on the low side 88/53, she received a bolus of normal saline also she has a normal saline 50 mL/h with nephrology team on the case. Creatinine bumped up 2.1 was 1.4 yesterday. Potassium 6.2 and she receives multiple treatment, please see orders. We'll keep monitoring potassium level of closely. Urine analysis is positive for UTI, urine culture was not sent, we'll send another sample today and discussed with the staff. She remains on ceftriaxone and she tolerates that's well. Also orthopedic team input is appreciated, they recommended to defer the DVT prophylaxis to primary team. I discussed the case with the patient and although documented history of DVT she denies any such history and she denies being on blood thinner she was on aspirin 325 mg at home. She denies leg pain or swelling or symptoms now however because of this confusion about her history we will order ultrasound of the leg to rule out DVT and if is negative then we prefer to defer the DVT prophylaxis to surgery team because mostly it would be related to her hip surgery. also patient reports some mild vaginal bleeding. She says her evs manager is Dr. Bustamante which is consulted. Other than that she has mild leukocytosis, hemoglobin 8.9. She has low-grade temperature of 99.9. Her sugar was elevated more than 250 and Levemir increased to 18 units with NovoLog 15 units with meals prognosis remains guarded 03/20/2012 Patient blood pressure remains on the low side and she was was in some of blood per vagina, she states that her evs manager is Dr. Bustamante which she was consulted, as per the recommendation patient has stage I endometrial carcinoma, she follows up with Dr. Abrams with [facility] On[facility] at [facility] and Dr. Bradford with radiology oncology (patient deemed poor surgical candidate for [employer] recommendation and therefore she gets radiotherapy) Patient 11 that she is fully awake and oriented, she denies chest pain dyspnea or dizziness, she complaining from pain at the left hip surgical site about 9/10 in severity with minimal vaginal bleeding, no other new complaints Her blood pressure remains low normal systolic around 100, less or slightly more. Her metoprolol 75 mg was held and her midodrine was increased to 10 mg. She remains on ceftriaxone for suspected UTI, urine culture is pending (for sample urine culture was missed, we sent another sample but more than 24 hours from antibiotics) However patient developed fever to right about 100.2. Patient still have leukocytosis 17.9 which is slightly worse. (Therefore we will consult ID team) Anemia is better 9.7. Creatinine is 2.9 with nephrology team on the case. Sugar is better controlled with increasing her insulin dose. Patient remains N guarded prognosis Review of systems CONSTITUTIONAL: No fever, no malaise, no fatigue. HEENT: No recent visual problems or hearing problems. Denied any sore throat. CARDIOVASCULAR: No orthopnea, PND, no palpitations, no syncope. PULMONARY: No shortness of breath, no cough, no hemoptysis. GASTROINTESTINAL: No diarrhea, no nausea, no vomiting, no abdominal pain. Normoactive bowel sounds. NEUROLOGICAL: No headaches, no weakness, no numbness. Active Medications Generic Name Dose Route Start Last Admin Trade Name Freq PRN Reason Stop Dose Admin Hydrocodone Bitart/Acetaminophen 1 each 03/17/22 17:32 Hydrocodone/Apap 5-325mg 1 Each Tab PO Q6HR PRN Pain Scale 1 to 5 Hydrocodone Bitart/Acetaminophen 2 each 03/17/22 17:32 03/19/22 15:28 Hydrocodone/Apap 5-325mg 1 Each Tab PO 2 each Q6HR PRN Administration Pain Scale 6 to 10 Albuterol Sulfate 2.5 mg 03/17/22 11:40 Albuterol Nebulized 2.5 Mg/3 Ml INHALATION RT-Q4H PRN Shortness Of Breath Allopurinol 100 mg 03/17/22 21:00 03/20/22 08:21 Allopurinol 100 Mg Tab PO 100 mg BID VANIA Administration Aspirin 81 mg 03/18/22 21:00 03/20/22 08:21 Aspirin 81 Mg PO 81 mg BID VANIA Administration Atorvastatin Calcium 10 mg 03/17/22 21:00 03/19/22 21:23 Atorvastatin 10 Mg Tab PO 10 mg HS VANIA Administration Budesonide/Formoterol Fumarate 2 puff 03/17/22 20:00 03/20/22 07:34 Symbicort 160-4.5 Mcg Inhaler INHALATION 2 puff RT-BID VANIA Administration Dextrose/Water 50 ml 03/17/22 11:41 Dextrose 50% Syringe 50 Ml IVP PER PROTOCOL PRN Hypoglycemia Protocol Dextrose/Water 25 ml 03/17/22 11:41 Dextrose 50% Syringe 50 Ml IVP PER PROTOCOL PRN Hypoglycemia Protocol Fenofibrate 160 mg 03/17/22 21:00 03/19/22 21:23 Fenofibrate 160 Mg Tab PO 160 mg HS VANIA Administration Fluoxetine HCl 20 mg 03/17/22 21:00 03/20/22 08:21 Fluoxetine Hcl 20 Mg Cap PO 20 mg BID VANIA Administration Gabapentin 600 mg 03/17/22 21:00 03/20/22 08:22 Gabapentin 300 Mg Cap PO 600 mg BID VANIA Administration Heparin Sodium (Porcine) 5,000 unit 03/20/22 10:15 03/20/22 10:32 Heparin Sodium,Porcine/Pf 5,000 Unit/0.5 Ml Syringe SQ Not Given Q12HR VANIA Hydromorphone HCl 0.25 mg 03/18/22 19:28 Hydromorphone 0.5 Mg/0.5 Ml Syringe IVP Q3HR PRN Pain Scale 1 to 3 Hydromorphone HCl 1 mg 03/18/22 19:28 Hydromorphone 1 Mg/Ml 1 Ml Syringe IVP Q3HR PRN Pain Scale 7 to 10 Hydromorphone HCl 0.5 mg 03/18/22 19:28 03/19/22 01:10 Hydromorphone 0.5 Mg/0.5 Ml Syringe IVP 0.5 mg Q3HR PRN Administration Pain Scale 4 to 6 Hydroxyzine Pamoate 25 mg 03/18/22 19:28 03/19/22 01:16 Hydroxyzine Pamoate 25 Mg Cap PO 25 mg Q4HR PRN Administration Mild Nausea and/or Anxiety Ceftriaxone Sodium 1 gm/ 50 mls @ 100 mls/hr 03/18/22 09:00 03/20/22 08:18 Sodium Chloride IVPB 03/21/22 09:01 100 mls/hr Q24HR VANIA Administration Protocol Sodium Chloride 1,000 mls @ 75 mls/hr 03/18/22 08:30 03/20/22 04:04 Saline 0.9% IV 75 mls/hr .[id number] VANIA Administration Insulin Aspart 0 unit 03/17/22 12:30 03/20/22 13:13 Insulin Aspart (Novolog) 100 Unit/Ml Vial SQ 6 unit ACHS VANIA Administration Protocol Insulin Aspart 18 unit 03/19/22 12:30 03/20/22 13:13 Insulin Aspart (Novolog) 100 Unit/Ml Vial SQ 18 unit AC-TID VANIA Administration Insulin Detemir 17 unit 03/20/22 21:00 Insulin Detemir (Levemir) 100 Unit/Ml Syr SQ BID@0700,2100 VANIA Metoprolol Succinate 75 mg 03/18/22 09:00 03/20/22 09:42 Metoprolol Succinate (Er) 25 Mg Tab.Er.24h PO Not Given DAILY VANIA Midodrine 10 mg 03/20/22 07:30 03/20/22 13:14 Midodrine 5 Mg Tab PO 10 mg AC-TID VANIA Administration Montelukast Sodium 10 mg 03/18/22 09:00 03/20/22 08:21 Montelukast 10 Mg Tab PO 10 mg DAILY VANIA Administration Naloxone HCl 0.2 mg 03/18/22 19:28 Naloxone 0.4 Mg/Ml 1 Ml Vial IV Q2M PRN Opioid Reversal Ondansetron HCl 4 mg 03/18/22 19:28 03/18/22 21:50 Ondansetron 4 Mg/2 Ml Vial IVP 4 mg Q24HR PRN Administration Nausea And Vomiting Pantoprazole Sodium 40 mg 03/17/22 17:30 03/20/22 06:43 Pantoprazole 40 Mg Tablet PO 40 mg AC-BID VANIA Administration Primidone 50 mg 03/17/22 21:00 03/19/22 21:24 Primidone 50 Mg Tab PO 50 mg HS VANIA Administration Senna/Docusate Sodium 2 each 03/18/22 21:00 03/19/22 21:24 Sennosides-Docusate Sodium 1 Each Tab PO 2 each HS VANIA Administration Sodium Bicarbonate 650 mg 03/19/22 11:45 03/20/22 08:21 Sodium Bicarbonate Tab 650 Mg Tab PO 650 mg BID VANIA Administration Sodium Zirconium Cyclosilicate 10 gm 03/20/22 11:30 03/20/22 13:15 Sodium Zirconium Cyclosilicate 10 Gm Packet PO 03/23/22 09:01 10 gm DAILY VANIA Administration Objective - Vital Signs Vital signs: Vital Signs Temp 97.8 F 03/20/22 08:00 Pulse 96 03/20/22 08:00 Resp 16 03/20/22 08:00 BP 101/66 03/20/22 08:00 Pulse Ox 96 03/20/22 08:00 FiO2 Intake & Output 03/19/22 03/20/22 03/20/22 18:59 06:59 18:59 Intake Total 118 Output Total 166 0 Balance -166 0 118 Weight 138.346 kg 139.5 kg Intake: Oral 118 Output: Urine 0 Post Void Residual 166 Other: Voiding Method External Catheter # Voids 1 - Exam -GENERAL: The patient is alert and oriented x3, not in any acute distress. Morbidly obese HEENT: Pupils are round and equally reacting to light. EOMI. No scleral icterus. No conjunctival pallor. Normocephalic, atraumatic. No pharyngeal erythema. No thyromegaly. CARDIOVASCULAR: S1 and S2 present. No murmurs, rubs, or gallops. PULMONARY: Chest is clear to auscultation, no wheezing or crackles. ABDOMEN: Soft, nontender, nondistended, normoactive bowel sounds. No palpable organomegaly. -MUSCULOSKELETAL: No joint swelling or deformity. Left hip surgical wound with dressing in place. Exam is deferred to surgery team EXTREMITIES: No cyanosis, clubbing, or pedal edema. NEUROLOGICAL: Gross neurological examination did not reveal any focal deficits. SKIN: No rashes. no petechiae. - Labs CBC & Chem 7: 03/20/22 03:31 03/20/22 03:31 Labs: Abnormal Lab Results - Last 24 Hours (Table) 03/19/22 03/19/22 03/19/22 Range/Units 12:21 16:12 16:59 WBC (3.8-10.6) k/uL RBC (3.80-5.40) m/uL Hgb (11.4-16.0) gm/dL Hct (34.0-46.0) % Neutrophils # (Manual) (1.3-7.7) k/uL Monocytes # (Manual) (0-1.0) k/uL Eosinophils # (Manual) (0-0.7) k/uL Potassium 5.4 H (3.5-5.1) mmol/L Carbon Dioxide (20.0-27.5) mmol/L BUN (9.0-27.0) mg/dL Creatinine (0.6-1.5) mg/dL Est GFR (CKD-EPI)AfAm (60.0-200.0) Est GFR (CKD-EPI)NonAf (60.0-200.0) Glucose (70-110) mg/dL POC Glucose (mg/dL) 349 H (70-110) mg/dL Urine Appearance Cloudy H (Clear) Urine Protein 1+ H (Negative) Urine Ketones Trace H (Negative) Urine Blood Trace H (Negative) Ur Leukocyte Esterase Large H (Negative) Urine RBC 14 H (0-5) /hpf Urine WBC >182 H (0-5) /hpf Urine Bacteria Many H (None) /hpf Hyaline Casts 26 H (0-2) /lpf Urine Mucus Rare H (None) /hpf Urine Yeast (Budding) Many H (None) /hpf 03/19/22 03/19/22 03/20/22 Range/Units 17:21 20:20 03:31 WBC (3.8-10.6) k/uL RBC (3.80-5.40) m/uL Hgb (11.4-16.0) gm/dL Hct (34.0-46.0) % Neutrophils # (Manual) (1.3-7.7) k/uL Monocytes # (Manual) (0-1.0) k/uL Eosinophils # (Manual) (0-0.7) k/uL Potassium (3.5-5.1) mmol/L Carbon Dioxide 19.3 L (20.0-27.5) mmol/L BUN 41.0 H (9.0-27.0) mg/dL Creatinine 3.2 H (0.6-1.5) mg/dL Est GFR (CKD-EPI)AfAm 18.0 L (60.0-200.0) Est GFR (CKD-EPI)NonAf 15.5 L (60.0-200.0) Glucose 123 H (70-110) mg/dL POC Glucose (mg/dL) 179 H 178 H (70-110) mg/dL Urine Appearance (Clear) Urine Protein (Negative) Urine Ketones (Negative) Urine Blood (Negative) Ur Leukocyte Esterase (Negative) Urine RBC (0-5) /hpf Urine WBC (0-5) /hpf Urine Bacteria (None) /hpf Hyaline Casts (0-2) /lpf Urine Mucus (None) /hpf Urine Yeast (Budding) (None) /hpf 12/07/22 12/07/22 12/07/22 Range/Units 03:31 03:31 06:09 WBC 17.9 H (3.8-10.6) k/uL RBC 3.49 L (3.80-5.40) m/uL Hgb 9.7 L (11.4-16.0) gm/dL Hct 30.3 L (34.0-46.0) % Neutrophils # (Manual) 12.50 H (1.3-7.7) k/uL Monocytes # (Manual) 1.07 H (0-1.0) k/uL Eosinophils # (Manual) 0.72 H (0-0.7) k/uL Potassium (3.5-5.1) mmol/L Carbon Dioxide 19 L (20.0-27.5) mmol/L BUN 42 H (9.0-27.0) mg/dL Creatinine 2.94 H (0.6-1.5) mg/dL Est GFR (CKD-EPI)AfAm (60.0-200.0) Est GFR (CKD-EPI)NonAf (60.0-200.0) Glucose 128 H (70-110) mg/dL POC Glucose (mg/dL) 150 H (70-110) mg/dL Urine Appearance (Clear) Urine Protein (Negative) Urine Ketones (Negative) Urine Blood (Negative) Ur Leukocyte Esterase (Negative) Urine RBC (0-5) /hpf Urine WBC (0-5) /hpf Urine Bacteria (None) /hpf Hyaline Casts (0-2) /lpf Urine Mucus (None) /hpf Urine Yeast (Budding) (None) /hpf 03/20/22 Range/Units 11:52 WBC (3.8-10.6) k/uL RBC (3.80-5.40) m/uL Hgb (11.4-16.0) gm/dL Hct (34.0-46.0) % Neutrophils # (Manual) (1.3-7.7) k/uL Monocytes # (Manual) (0-1.0) k/uL Eosinophils # (Manual) (0-0.7) k/uL Potassium (3.5-5.1) mmol/L Carbon Dioxide (20.0-27.5) mmol/L BUN (9.0-27.0) mg/dL Creatinine (0.6-1.5) mg/dL Est GFR (CKD-EPI)AfAm (60.0-200.0) Est GFR (CKD-EPI)NonAf (60.0-200.0) Glucose (70-110) mg/dL POC Glucose (mg/dL) 228 H (70-110) mg/dL Urine Appearance (Clear) Urine Protein (Negative) Urine Ketones (Negative) Urine Blood (Negative) Ur Leukocyte Esterase (Negative) Urine RBC (0-5) /hpf Urine WBC (0-5) /hpf Urine Bacteria (None) /hpf Hyaline Casts (0-2) /lpf Urine Mucus (None) /hpf Urine Yeast (Budding) (None) /hpf Microbiology - Last 24 Hours (Table) 03/19/22 16:12 Urine Culture - Preliminary Urine,Catheterized Assessment and Plan Assessment: Fall without losing consciousness but associated with lightheadedness and dizziness, most likely secondary to dehydration Left hip fracture with the plan for hip surgery by orthopedic team. Status post operative fixation of the left subtrochanteric femur fracture with medullary nail Mild vaginal bleeding Acute kidney injury with hyperkalemia Diabetes mellitus with hyperglycemia, present on admission Severe dehydration with acute kidney injury present on admission, secondary to above Acute kidney injury Chronic hypoxic respiratory failure Asthma, not acute event History of recurrent pneumonia History of lupus on treatment Morbid obesity Plan: Continue with orthopedic team recommendation. We will check ultrasound of the leg and if it is negative then we will ask orthopedic team to address her DVT prophylaxis. Continue with gentle hydration Continue with antibiotic and follow-up culture Gynecological consult (signed off) Consult ID team Patient is planned for surgery today, patient is at some risk during the surgery but there is no absolute contraindication. Continue with Levemir 17 units and NovoLog 18 units with meals and insulin sliding scale. Patient will need preop evaluation, were going to consult for this reason pulmonary team Labs and medication were reviewed.. Continue same treatment. Continue with symptomatic treatment. Resume home medication. Monitor labs and vitals. DVT and GI prophylaxis. Further recommendations as per clinical course of the patient DVT prophylaxis: Currently on aspirin GI Prophylaxis: Pepcid PT/OT: Pending Prognosis is guarded
[2022-03-20] MEDS: HYDROcodone/APAP 5-325MG 1 EACH TAB PO PRN (17:27)
[2022-03-20] MEDS ORDERED: CEFEPIME 2 GM in SODIUM CHLORIDE 0.9% 100 ML IVPB STA (18:02)
[2022-03-20 18:20] LABS: Basophils # (A) 0.1 k/uL (0-0.2); Basophils % (A) 0 %; Eosinophils # (A) 0.6 k/uL (0-0.7); Eosinophils % (A) 4 %; HGB 8.8 gm/dL (11.4-16.0); Hypochromasia Slight; Lymphocytes # (A) 2.5 k/uL (1.0-4.8); Lymphocytes % (A) 16 %; MCH 27.8 pg (25.0-35.0); MCHC 32.5 g/dL (31.0-37.0); MCV 85.4 fL (80.0-100.0); Mean Platelet Volume 9.6; Monocytes % (A) 6 %; Neutrophils # (A) 11.8 k/uL (1.3-7.7); Neutrophils % (A) 73 %; Platelet Count 310 k/uL (150-450); RBC 3.16 m/uL (3.80-5.40); RDW 14.7 % (11.5-15.5); WBC 16.1 k/uL (3.8-10.6)
[2022-03-20 19:53] LABS: Glucose,Whole Blood 160 mg/dL (70-110)
[2022-03-20] MEDS: PRIMIDONE 50 MG TAB PO SCH (20:46)
[2022-03-20] MEDS: SENNOSIDES-DOCUSATE SODIUM 1 EACH TAB PO SCH (20:46)
[2022-03-20] MEDS: ATORVASTATIN 10 MG TAB PO SCH (20:46)
[2022-03-20] MEDS: FENOFIBRATE 160 MG TAB PO SCH (20:46)
[2022-03-20] MEDS: ACETAMINOPHEN TAB 325 MG TAB PO PRN (22:15)
--- NOTE | 2022-03-20 22:40 | P.CONS ---
History of Present Illness - Reason for Consult Consult date: 03/20/22 Fever Requesting physician: Oren Cunningham - Chief Complaint Left hip pain x few days - History of Present Illness Patient is a 56-year-old female initially presenting to the hospital on 2021 after the patient did have a fall patient did have a pain to the left leg area and she was noticed to have a nondisplaced subtrochanteric femoral fracture patient has been evaluated by orthopedics this patient who is status post operative fixation of the left subtrochanteric femur fracture with long cephalomedullary nail procedure completed on 03/18/2022 patient has been in the hospital recovering from her injury the patient has been afebrile however she did spike a fever 100.2 this afternoon patient also have elevated white count since admission with white count 16.1 today patient did have a UA done on 03 17 as well as 03 19 that has been significantly positive, urine culture from 03 19 is growing gram-negative bacilli however she did have a urine culture done on 02/14/2022 that did grew drug-resistant Klebsiella MRI patient is currently being treated with Rocephin infectious disease was consulted because of her fever patient currently denies having any headache or URI symptoms no chest pain or shortness of breath occasional cough no nausea vomiting abdominal pain denies having any diarrhea pain to the left hip is mostly dull aching 3-4 out of 10 no radiation Review of Systems Positive point has been mentioned in the HPI rest of the systems are negative Past Medical History Past Medical History: Cancer, Diabetes Mellitus, Deep Vein Thrombosis (DVT), Hypertension, Renal Disease, Rheumatoid Arthritis (RA), Thyroid Disorder Additional Past Medical History / Comment(s): O2 @ 4L. SLE LUPUS. STAGE 3 KIDNEY DISEASE. Leukemia, GRAVES DZ , kidney stones, gout, ovarian cancer (recent diagnosis, no treatment yet) History of Any Multi-Drug Resistant Organisms: None Reported Past Surgical History: No Surgical Hx Reported Additional Past Surgical History / Comment(s): BILATERAL ARTHROSCOPY KNEES. D & C (MISCARRIAGES). Past Anesthesia/Blood Transfusion Reactions: No Reported Reaction Past Psychological History: Anxiety Smoking Status: Never smoker Past Alcohol Use History: None Reported Past Drug Use History: None Reported - Past Family History Mother Family Medical History: Congestive Heart Failure (CHF), Diabetes Mellitus Father Family Medical History: Congestive Heart Failure (CHF), Dialysis, Hypertension Medications and Allergies Home Medications Medication Instructions Recorded Confirmed Type FLUoxetine HCL [PROzac] 20 mg PO BID@0900,2100 01/09/17 04/02/22 History Montelukast [Singulair] 10 mg PO DAILY 01/09/17 04/02/22 History gemfibroziL [Lopid] 600 tab PO BID 01/09/17 04/02/22 History Albuterol Inhaler [Ventolin Hfa 2 puff INHALATION RT-Q4H PRN 01/14/17 04/02/22 History Inhaler] Albuterol Nebulized [Ventolin 2.5 mg INHALATION RT-QID PRN 01/14/17 04/02/22 History Nebulized] allopurinoL [Zyloprim] 100 mg PO BID 01/21/22 04/02/22 History Atorvastatin [Lipitor] 10 mg PO HS 02/15/22 04/02/22 History Ondansetron [Zofran] 4 mg PO Q12HR PRN 02/15/22 04/02/22 History Pantoprazole [Protonix] 40 mg PO BID@0600,2100 02/15/22 04/02/22 History Acetaminophen Tab [Tylenol] 650 mg PO Q6HR PRN tab 03/28/22 04/02/22 Rx Aspirin 81 mg PO BID tab 03/28/22 04/02/22 Rx Ferrous Sulfate [Iron (65 MG 325 mg PO DAILY #30 tab 03/28/22 04/02/22 Rx Elemental)] Heparin Sodium,Porcine [Heparin 5,000 unit SQ Q12HR #60 each 03/28/22 04/02/22 Rx Sodium] Metoprolol Succinate (ER) [Toprol 75 mg PO DAILY tab 03/28/22 04/02/22 Rx XL] Primidone [Mysoline] 50 mg PO HS tab 03/28/22 04/02/22 Rx Sodium Zirconium Cyclosilicate 10 gm PO DAILY 7 Days #7 packet 03/28/22 04/02/22 Rx [Lokelma] Fluticasone/Vilanterol [Breo 1 puff INHALATION RT-BID 04/02/22 04/02/22 History Ellipta 200-25 Mcg Inhaler] Gabapentin [Gralise] 600 mg PO BID 04/02/22 04/02/22 History HYDROcodone/APAP 5-325MG [[place] 1 tab PO Q6HR PRN 04/02/22 04/02/22 History 5-325] Insulin Glargine-Yfgn [Semglee 10 unit SQ BID@0900,1700 04/02/22 04/02/22 History (Yfgn) Pen] Insulin Lispro [humaLOG Kwikpen] 2 units SQ TID@0700,1100,1600 04/02/22 04/02/22 History Insulin Lispro [humaLOG Kwikpen] See Protocol SQ DIRECTED 04/02/22 04/02/22 History Midodrine HCl [ProAmatine] 10 mg PO TID@0700,1100,1600 04/02/22 04/02/22 History Sennosides-Docusate Sodium 2 tab PO HS 04/02/22 04/02/22 History [Senokot-S] Allergies Allergy/AdvReac Type Severity Reaction Status Date / Time ciprofloxacin [From Cipro] Allergy Swelling Verified 04/02/22 17:33 diphenhydramine Allergy Swelling Verified 04/02/22 17:33 [From Benadryl] iodine Allergy Swelling Verified 04/02/22 17:33 propoxyphene Allergy Swelling Verified 04/02/22 17:33 [From Darvocet-N] red dye Allergy Swelling Verified 04/02/22 17:33 sulfacetamide Allergy Swelling Verified 04/02/22 17:33 [From Sulfamide] yellow dye Allergy Swelling Verified 04/02/22 17:33 FLU VACCINE? Allergy Unknown Uncoded 04/02/22 15:17 Physical Exam Vitals: Vital Signs Temp Pulse Pulse Resp BP Pulse Ox 03/20/22 16:00 97.6 F 96 17 98/64 94 L 03/20/22 12:00 100.2 F H 95 16 106/69 92 L 03/20/22 08:00 97.8 F 96 16 101/66 96 03/20/22 07:34 93 L 03/20/22 06:44 116/72 03/20/22 04:00 97.5 F L 98 20 85/59 91 L 03/20/22 03:25 101 H 20 76/52 90 L 03/20/22 03:10 97.5 F L 98 18 80/58 90 L 03/20/22 01:36 88 77/50 03/20/22 00:00 98.1 F 97 16 74/45 95 03/19/22 22:57 93 93 18 82/50 98 03/19/22 22:45 95 18 77/50 98 03/19/22 22:35 94 16 79/49 95 03/19/22 22:27 93 16 86/56 93 L 03/19/22 20:28 81/52 03/19/22 18:46 97.6 F 100 16 73/42 95 Intake and Output 03/20/22 03/20/22 03/20/22 06:59 14:59 22:59 Intake Total 118 Balance 118 Intake: Oral 118 Other: Voiding Method External Catheter # Voids 1 Weight 139.5 kg GENERAL DESCRIPTION: Middle-aged female lying in bed, no distress. No tachypnea or accessory muscle of respiration use. HEENT: Shows Pallor , no scleral icterus. Oral mucous membrane is dry. No pharyngeal erythema or thrush NECK: Trachea central, no thyromegaly. LUNGS: Unlabored breathing. Decreased breath sounds at the base. No wheeze or crackle. HEART: S1, S2, regular rate and rhythm. No loud murmur ABDOMEN: Soft, no tenderness , guarding or rigidity, no organomegaly EXTREMITIES: Left hip incision is currently dressed no drainage on the dressing. SKIN: No rash, no masses palpable. NEUROLOGICAL: The patient is awake, alert, oriented x3, mood and affect normal. Results CBC & Chem 7: 03/27/22 12:28 03/27/22 11:06 Labs: Abnormal Lab Results - Last 24 Hours (Table) 03/19/22 03/20/22 03/20/22 Range/Units 20:20 03:31 03:31 WBC 17.9 H (3.8-10.6) k/uL RBC 3.49 L (3.80-5.40) m/uL Hgb 9.7 L (11.4-16.0) gm/dL Hct 30.3 L (34.0-46.0) % Neutrophils # (Manual) 12.50 H (1.3-7.7) k/uL Monocytes # (Manual) 1.07 H (0-1.0) k/uL Eosinophils # (Manual) 0.72 H (0-0.7) k/uL Carbon Dioxide 19.3 L (20.0-27.5) mmol/L BUN 41.0 H (9.0-27.0) mg/dL Creatinine 3.2 H (0.6-1.5) mg/dL Est GFR (CKD-EPI)AfAm 18.0 L (60.0-200.0) Est GFR (CKD-EPI)NonAf 15.5 L (60.0-200.0) Glucose 123 H (70-110) mg/dL POC Glucose (mg/dL) 178 H (70-110) mg/dL 03/20/22 03/20/22 03/20/22 Range/Units 03:31 06:09 11:52 WBC (3.8-10.6) k/uL RBC (3.80-5.40) m/uL Hgb (11.4-16.0) gm/dL Hct (34.0-46.0) % Neutrophils # (Manual) (1.3-7.7) k/uL Monocytes # (Manual) (0-1.0) k/uL Eosinophils # (Manual) (0-0.7) k/uL Carbon Dioxide 19 L (20.0-27.5) mmol/L BUN 42 H (9.0-27.0) mg/dL Creatinine 2.94 H (0.6-1.5) mg/dL Est GFR (CKD-EPI)AfAm (60.0-200.0) Est GFR (CKD-EPI)NonAf (60.0-200.0) Glucose 128 H (70-110) mg/dL POC Glucose (mg/dL) 150 H 228 H (70-110) mg/dL 03/20/22 Range/Units 16:33 WBC (3.8-10.6) k/uL RBC (3.80-5.40) m/uL Hgb (11.4-16.0) gm/dL Hct (34.0-46.0) % Neutrophils # (Manual) (1.3-7.7) k/uL Monocytes # (Manual) (0-1.0) k/uL Eosinophils # (Manual) (0-0.7) k/uL Carbon Dioxide (20.0-27.5) mmol/L BUN (9.0-27.0) mg/dL Creatinine (0.6-1.5) mg/dL Est GFR (CKD-EPI)AfAm (60.0-200.0) Est GFR (CKD-EPI)NonAf (60.0-200.0) Glucose (70-110) mg/dL POC Glucose (mg/dL) 177 H (70-110) mg/dL Microbiology - Last 24 Hours (Table) 03/19/22 16:12 Urine Culture - Preliminary Urine,Catheterized Assessment and Plan (1) Urinary tract bacterial infections Status: Acute Code(s): N39.0 - URINARY TRACT INFECTION, SITE NOT SPECIFIED; A4 9.9 - BACTERIAL INFECTION, UNSPECIFIED SNOMED Code(s): 163433043 Plan: 1patient with a fever in this patient presented to the hospital after a fall with left femoral fracture s/p operative repair patient did have a positive UA concerning for a UTI with last urine culture done did grew out drug-resistant Klebsiella in the morning that is resistant to Rocephin with the patient is currently on. 2we will repeat blood culture CRP and procalcitonin. 3discontinue Rocephin and start the patient on cefepime while waiting for the culture to finalize. We will follow on clinical condition and cultures to further adjust medication if needed Thank you for this consultation will follow this patient along with you Time with Patient: Greater than 30
[2022-03-21] MEDS: HYDROcodone/APAP 5-325MG 1 EACH TAB PO PRN ×3 (00:04→12:33)
[2022-03-21 06:23] LABS: Glucose,Whole Blood 146 mg/dL (70-110)
[2022-03-21] MEDS: SODIUM CHLORIDE 0.9% 1,000 ML IV SCH ×3 (06:26→21:40)
[2022-03-21] MEDS: INSULIN ASPART (NovoLOG) 100 UNIT/ML VIAL SQ SCH ×7 (06:27→21:39)
[2022-03-21] MEDS: CEFEPIME 1 GM in SODIUM CHLORIDE 0.9% 50 ML IVPB SCH ×2 (06:39→17:20)
[2022-03-21] MEDS: MIDODRINE 5 MG TAB PO SCH ×3 (06:40→17:20)
[2022-03-21] MEDS: PANTOPRAZOLE 40 MG TABLET PO SCH ×2 (06:40→17:20)
[2022-03-21] MEDS: INSULIN DETEMIR (LEVEMIR) 100 UNIT/ML SYR SQ SCH ×2 (06:45→21:39)
[2022-03-21 08:08] LABS: Calcium 7.5 mg/dL (8.4-10.2); Magnesium 1.7 mg/dL (1.6-2.3); Potassium 3.9 mmol/L (3.5-5.1)
[2022-03-21] MEDS: GABAPENTIN 300 MG CAP PO SCH ×2 (08:54→21:38)
[2022-03-21] MEDS: SODIUM BICARBONATE TAB 650 MG TAB PO SCH ×2 (08:54→21:38)
[2022-03-21] MEDS: ASPIRIN 81 MG PO SCH ×2 (08:54→21:38)
[2022-03-21] MEDS: MONTELUKAST 10 MG TAB PO SCH (08:54)
[2022-03-21] MEDS: allopurinoL 100 MG TAB PO SCH ×2 (08:54→21:38)
[2022-03-21] MEDS: HEPARIN SODIUM,PORCINE/PF 5,000 UNIT/0.5 ML SYRINGE SQ SCH ×2 (08:54→21:39)
[2022-03-21] MEDS: FLUoxetine HCL 20 MG CAP PO SCH ×2 (08:54→21:38)
[2022-03-21] MEDS: SYMBICORT 160-4.5 MCG INHALER INHALATION SCH ×2 (09:00→20:27)
[2022-03-21] MEDS ORDERED: SODIUM CHLORIDE 0.9% 500 ML 500 ML IV ONE (11:12)
--- NOTE | 2022-03-21 11:12 | P.PN ---
Subjective Patient is seen in follow-up for acute kidney injury on chronic kidney disease. Renal function a little improved. Creatinine 2.68 today. Blood pressure remains on the lower side. She denies chest pain or shortness of breath. Oral intake fair. No vomiting or diarrhea. Vital signs are stable. Blood pressure low. General: Awake. No acute distress. HEENT: Head exam is unremarkable. LUNGS: Breath sounds decreased. HEART: Rate and Rhythm are regular. ABDOMEN: Soft, no distention. EXTREMITITES: No edema. Objective - Vital Signs Vital signs: Vital Signs Temp 98.9 F 03/21/22 08:20 Pulse 119 H 03/21/22 08:20 Resp 18 03/21/22 08:20 BP 79/53 03/21/22 08:20 Pulse Ox 90 L 03/21/22 08:20 FiO2 Intake & Output 03/20/22 03/21/22 03/21/22 18:59 06:59 18:59 Intake Total 236 1000 0 Output Total 300 Balance -64 1000 0 Intake: IV 1000 Cefepime 2 gm In Sodium 100 Chloride 0.9% 100 ml @ 200 mls/hr IVPB ONCE STA Rx#:[id number] Sodium Chloride 0.9% 1, 900 000 ml @ 75 mls/hr IV . [id number] [facility] Rx#:[id number] Oral 236 0 Output: Post Void Residual 300 Other: Voiding Method External Catheter External Catheter - Labs CBC & Chem 7: 03/20/22 17:53 03/21/22 07:33 Labs: Abnormal Lab Results - Last 24 Hours (Table) 03/20/22 03/20/22 03/20/22 Range/Units 11:52 16:33 17:53 WBC 16.1 H (3.8-10.6) k/uL RBC 3.16 L (3.80-5.40) m/uL Hgb 8.8 L (11.4-16.0) gm/dL Hct 27.0 L (34.0-46.0) % Neutrophils # 11.8 H (1.3-7.7) k/uL Chloride (98-107) mmol/L BUN (7-17) mg/dL Creatinine (0.52-1.04) mg/dL Glucose (74-99) mg/dL POC Glucose (mg/dL) 228 H 177 H (70-110) mg/dL Calcium (8.4-10.2) mg/dL C-Reactive Protein (<1.0) mg/dL Procalcitonin (0.02-0.09) ng/mL 03/20/22 03/20/22 03/20/22 Range/Units 17:53 17:53 19:50 WBC (3.8-10.6) k/uL RBC (3.80-5.40) m/uL Hgb (11.4-16.0) gm/dL Hct (34.0-46.0) % Neutrophils # (1.3-7.7) k/uL Chloride (98-107) mmol/L BUN (7-17) mg/dL Creatinine (0.52-1.04) mg/dL Glucose (74-99) mg/dL POC Glucose (mg/dL) 160 H (70-110) mg/dL Calcium (8.4-10.2) mg/dL C-Reactive Protein 8.8 H (<1.0) mg/dL Procalcitonin 1.21 H (0.02-0.09) ng/mL 03/21/22 03/21/22 Range/Units 06:17 07:33 WBC (3.8-10.6) k/uL RBC (3.80-5.40) m/uL Hgb (11.4-16.0) gm/dL Hct (34.0-46.0) % Neutrophils # (1.3-7.7) k/uL Chloride 108 H (98-107) mmol/L BUN 43 H (7-17) mg/dL Creatinine 2.68 H (0.52-1.04) mg/dL Glucose 158 H (74-99) mg/dL POC Glucose (mg/dL) 146 H (70-110) mg/dL Calcium 7.5 L (8.4-10.2) mg/dL C-Reactive Protein (<1.0) mg/dL Procalcitonin (0.02-0.09) ng/mL Microbiology - Last 24 Hours (Table) 03/19/22 16:12 Urine Culture - Preliminary Urine,Catheterized Gram Neg Bacilli Assessment and Plan Plan: Assessment: 1. Acute kidney injury mostly prerenal secondary to hypovolemia from severe hyperglycemia. Further worsened due to severe hypotension with blood pressure in the systolic 70s. Creatinine peaked at 2.94 on 03/20/2020 and is 2.68 today. No hydronephrosis noted on kidney ultrasound although right kidney was not visualized. 2. Chronic kidney disease stage IIIB secondary to diabetic kidney disease. Baseline creatinine near 1.5. 3. History of lupus maintained on Plaquenil outpatient. Patient's UA from 02/14/2022 showed only 1 RBC. 4. Gram-negative UTI. On antibiotics. ID following. 5. Diabetes mellitus. Uncontrolled on admission. 6. Left femur fracture status post surgical repair 03/18/2022. 7. Hyperkalemia secondary to acute kidney injury, hyperglycemia and acidosis. Improved. 8. Endometrial cancer being followed by oncology outpatient. Seen by og/rn production this admission. Plan: Maintain normal saline at 75 mL an hour. 500 mL bolus of normal saline now. Follow-up cultures. Continue to hold diuretics. Avoid nephrotoxins. Blood sugar control. Strict is and os. Maintain midodrine. Hold for systolic blood pressure greater than 110. Add IV hydrocortisone.
[2022-03-21 11:51] LABS: Glucose,Whole Blood 197 mg/dL (70-110)
--- NOTE | 2022-03-21 12:27 | P.PN ---
Subjective Progress Note Date: 03/21/22 This patient is a 56- year old female who is status-post operative fixation of left subtrochanteric femur fracture with long cephalo-medullary nail on 03/18/22. Today is postoperative day #3. The patient is examined bedside this afternoon with Dr. Disla. Patient states pain is well-controlled in her left hip. No new complaints. Objective - Vital Signs Vital signs: Vital Signs Temp 98.9 F 03/21/22 08:20 Pulse 119 H 03/21/22 08:20 Resp 18 03/21/22 08:20 BP 79/53 03/21/22 08:20 Pulse Ox 90 L 03/21/22 08:20 FiO2 Intake & Output 03/20/22 03/21/22 03/21/22 18:59 06:59 18:59 Intake Total 236 1000 0 Output Total 300 Balance -64 1000 0 Intake: IV 1000 Cefepime 2 gm In Sodium 100 Chloride 0.9% 100 ml @ 200 mls/hr IVPB ONCE STA Rx#:[id number] Sodium Chloride 0.9% 1, 900 000 ml @ 75 mls/hr IV . [id number] [facility] Rx#:[id number] Oral 236 0 Output: Post Void Residual 300 Other: Voiding Method External Catheter External Catheter External Catheter - Exam On examination, the patient is sitting up in bed in no apparent distress. She is alert and orientated 3. Nasal cannula in place. On inspection of her left hip, there are 2 clean, dry, intact Opsite surgical dressings in place with no bleeding or drainage through the dressings. Dressings were reinforced with tegaderm. Motor and sensory function is intact of the left lower extremity. Left lower extremity warm and well perfused. - Labs CBC & Chem 7: 03/20/22 17:53 03/21/22 07:33 Labs: Abnormal Lab Results - Last 24 Hours (Table) 03/20/22 03/20/22 03/20/22 Range/Units 16:33 17:53 17:53 WBC 16.1 H (3.8-10.6) k/uL RBC 3.16 L (3.80-5.40) m/uL Hgb 8.8 L (11.4-16.0) gm/dL Hct 27.0 L (34.0-46.0) % Neutrophils # 11.8 H (1.3-7.7) k/uL Chloride (98-107) mmol/L BUN (7-17) mg/dL Creatinine (0.52-1.04) mg/dL Glucose (74-99) mg/dL POC Glucose (mg/dL) 177 H (70-110) mg/dL Calcium (8.4-10.2) mg/dL C-Reactive Protein 8.8 H (<1.0) mg/dL Procalcitonin (0.02-0.09) ng/mL 03/20/22 03/20/22 03/21/22 Range/Units 17:53 19:50 06:17 WBC (3.8-10.6) k/uL RBC (3.80-5.40) m/uL Hgb (11.4-16.0) gm/dL Hct (34.0-46.0) % Neutrophils # (1.3-7.7) k/uL Chloride (98-107) mmol/L BUN (7-17) mg/dL Creatinine (0.52-1.04) mg/dL Glucose (74-99) mg/dL POC Glucose (mg/dL) 160 H 146 H (70-110) mg/dL Calcium (8.4-10.2) mg/dL C-Reactive Protein (<1.0) mg/dL Procalcitonin 1.21 H (0.02-0.09) ng/mL 03/21/22 03/21/22 Range/Units 07:33 11:39 WBC (3.8-10.6) k/uL RBC (3.80-5.40) m/uL Hgb (11.4-16.0) gm/dL Hct (34.0-46.0) % Neutrophils # (1.3-7.7) k/uL Chloride 108 H (98-107) mmol/L BUN 43 H (7-17) mg/dL Creatinine 2.68 H (0.52-1.04) mg/dL Glucose 158 H (74-99) mg/dL POC Glucose (mg/dL) 197 H (70-110) mg/dL Calcium 7.5 L (8.4-10.2) mg/dL C-Reactive Protein (<1.0) mg/dL Procalcitonin (0.02-0.09) ng/mL Microbiology - Last 24 Hours (Table) 03/19/22 16:12 Urine Culture - Preliminary Urine,Catheterized Gram Neg Bacilli Assessment and Plan Assessment: Status-post operative fixation of left subtrochanteric femur fracture with long cephalo-medullary nail on 03/18/22. Post-operative day #3. Plan: - Weight bear to tolerance on operative extremity with a walker. Up with assistance. - Physical therapy for gait and balance training. - Keep operative dressings intact. - Medical management per internal medicine. Will defer to IM for DVT prophylaxis as patient has history of DVT. Patient currently on Heparin inpatient per Dr. Cunningham. Multiple medical specialities following. - Will follow closely.
--- NOTE | 2022-03-21 12:27 | P.PN ---
Subjective History of present illness; patient is 56-year-old lady with past medical history significant for insulin-dependent diabetes mellitus, hypertension, hyperlipidemia presented to the ER because of fall. Patient was all right yesterday evening when while she was watching TV and trying to get out of her couch she lost her balance and fell on her buttocks. She didn't lose any consciousness. Patient denied any seizure-like activity. Patient had no prior episode of any bone. Patient did not hit her head. Because of this fall patient came to the ER. In the ER, initial lab work showed patient to have a white count of 13.6, hemoglobin of 10.7, sodium 134, potassium 6, anion gap 10, creatinine 1.69, initial glucose was elevated at 75. X-ray of left hip and pelvis are negative for any fractures. Patient was admitted for further evaluation and treatment 03/18/2022 Patient presents because of fall, patient states that she was watching TV and started up to turn off her TV when she felt dizzy lightheaded left spondylosis and fell on her left hip area suffering from hip fracture. Patient still complaining from pain about 9/10 in severity this morning in her left hip area with plan for left hip arthroplasty by surgery team Patient states that she is diabetic and she takes Levemir 50 units twice a day with insulin sliding scale now scheduled insulin with meals. Her geodetic computator is Dr. Valdivia. She denies chest pain or dyspnea, no headache or weakness or dizziness, no abdominal pain vomiting or diarrhea. Dysuria or urgency. she is on 4 litre of oxygen at home for chronic asthma and recurrent pneumonias, her pulmnoloigst is dr. garcia We will continue with Levemir 15 units twice a day and NovoLog 15 units with meals and I'll keep potential, after the procedure. She is hemodynamically stable. Creatinine is trending down 1.4 today. CBC is still pending. The sternum 1.7, we'll give 1 time dose of magnesium sulfide 1 g 1 because she is going for surgery Also she was placed on normal saline at 50 mL/h. 03/19/2022 Patient is status post surgical fixation of her left subtrochanteric fracture with medullary nail. Today is postop day #1. She is fully awake and oriented she is complain from some pain at the surgical site which is expected. No chest pain or dyspnea. No abdominal pain. Her blood pressure was on the low side 88/53, she received a bolus of normal saline also she has a normal saline 50 mL/h with nephrology team on the case. Creatinine bumped up 2.1 was 1.4 yesterday. Potassium 6.2 and she receives multiple treatment, please see orders. We'll keep monitoring potassium level of closely. Urine analysis is positive for UTI, urine culture was not sent, we'll send another sample today and discussed with the staff. She remains on ceftriaxone and she tolerates that's well. Also orthopedic team input is appreciated, they recommended to defer the DVT prophylaxis to primary team. I discussed the case with the patient and although documented history of DVT she denies any such history and she denies being on blood thinner she was on aspirin 325 mg at home. She denies leg pain or swelling or symptoms now however because of this confusion about her history we will order ultrasound of the leg to rule out DVT and if is negative then we prefer to defer the DVT prophylaxis to surgery team because mostly it would be related to her hip surgery. also patient reports some mild vaginal bleeding. She says her business banker is Dr. Bustamante which is consulted. Other than that she has mild leukocytosis, hemoglobin 8.9. She has low-grade temperature of 99.9. Her sugar was elevated more than 250 and Levemir increased to 18 units with NovoLog 15 units with meals prognosis remains guarded 03/20/2012 Patient blood pressure remains on the low side and she was was in some of blood per vagina, she states that her business banker is Dr. Bustamante which she was consulted, as per the recommendation patient has stage I endometrial carcinoma, she follows up with Dr. Abrams with [facility] at [facility] and Dr. Bradford with radiology oncology (patient deemed poor surgical candidate for GR[employer] PRODUCTION SPECIALIST recommendation and therefore she gets radiotherapy) Patient 11 that she is fully awake and oriented, she denies chest pain dyspnea or dizziness, she complaining from pain at the left hip surgical site about 9/10 in severity with minimal vaginal bleeding, no other new complaints Her blood pressure remains low normal systolic around 100, less or slightly more. Her metoprolol 75 mg was held and her midodrine was increased to 10 mg. She remains on ceftriaxone for suspected UTI, urine culture is pending (for sample urine culture was missed, we sent another sample but more than 24 hours from antibiotics) However patient developed fever to right about 100.2. Patient still have leukocytosis 17.9 which is slightly worse. (Therefore we will consult ID team) Anemia is better 9.7. Creatinine is 2.9 with nephrology team on the case. Sugar is better controlled with increasing her insulin dose. Patient remains N guarded prognosis 03/21/2022 Patient lying in bed fully awake and oriented not in distress, still complaining of from some pain in her left hip area. No other new complaint. No dizziness or chest pain or dyspnea. She cannot tell if his has morbid vaginal bleeding but looks like it is not severe to be noticed by the patient. Blood pressure still on the low side this morning 79/53 and she is tachycardic around 119. She received 1 bolus of normal saline 500 mL which looks appropriate and also started on IV hydrocortisone 50 mg twice a day, cortisol level was 28. Urine culture is growing gram-negative bacilli pending final results. Antibiotic was adjusted to cefepime per ID team based on RESISTANT bacteria in her old urine culture. Also she is on normal saline 75 mL/h. Metoprolol 75 mg is on hold and she is currently on midodrine 10 mg 3 times a day. Keep monitoring hemoglobin Today I talked with the family over the phone per Patient request and using her on the phone and all their questions answered to satisfaction Review of systems CONSTITUTIONAL: No fever, no malaise, no fatigue. HEENT: No recent visual problems or hearing problems. Denied any sore throat. CARDIOVASCULAR: No orthopnea, PND, no palpitations, no syncope. PULMONARY: No shortness of breath, no cough, no hemoptysis. GASTROINTESTINAL: No diarrhea, no nausea, no vomiting, no abdominal pain. Normoactive bowel sounds. NEUROLOGICAL: No headaches, no weakness, no numbness. Active Medications Generic Name Dose Route Start Last Admin Trade Name Freq PRN Reason Stop Dose Admin Acetaminophen 650 mg 03/20/22 21:45 03/20/22 22:15 Acetaminophen Tab 325 Mg Tab PO 650 mg Q6HR PRN Administration Fever and/ or Pain Hydrocodone Bitart/Acetaminophen 1 each 03/17/22 17:32 03/21/22 00:04 Hydrocodone/Apap 5-325mg 1 Each Tab PO 1 each Q6HR PRN Administration Pain Scale 1 to 5 Hydrocodone Bitart/Acetaminophen 2 each 03/17/22 17:32 03/21/22 06:41 Hydrocodone/Apap 5-325mg 1 Each Tab PO 2 each Q6HR PRN Administration Pain Scale 6 to 10 Albuterol Sulfate 2.5 mg 03/17/22 11:40 Albuterol Nebulized 2.5 Mg/3 Ml INHALATION RT-Q4H PRN Shortness Of Breath Allopurinol 100 mg 03/17/22 21:00 03/21/22 08:54 Allopurinol 100 Mg Tab PO 100 mg BID VANIA Administration Aspirin 81 mg 03/18/22 21:00 03/21/22 08:54 Aspirin 81 Mg PO 81 mg BID VANIA Administration Atorvastatin Calcium 10 mg 03/17/22 21:00 03/20/22 20:46 Atorvastatin 10 Mg Tab PO 10 mg HS VANIA Administration Budesonide/Formoterol Fumarate 2 puff 03/17/22 20:00 03/21/22 09:00 Symbicort 160-4.5 Mcg Inhaler INHALATION 2 puff RT-BID VANIA Administration Dextrose/Water 50 ml 03/17/22 11:41 Dextrose 50% Syringe 50 Ml IVP PER PROTOCOL PRN Hypoglycemia Protocol Dextrose/Water 25 ml 03/17/22 11:41 Dextrose 50% Syringe 50 Ml IVP PER PROTOCOL PRN Hypoglycemia Protocol Fenofibrate 160 mg 03/17/22 21:00 03/20/22 20:46 Fenofibrate 160 Mg Tab PO 160 mg HS VANIA Administration Fluoxetine HCl 20 mg 03/17/22 21:00 03/21/22 08:54 Fluoxetine Hcl 20 Mg Cap PO 20 mg BID VANIA Administration Gabapentin 600 mg 03/17/22 21:00 03/21/22 08:54 Gabapentin 300 Mg Cap PO 600 mg BID VANIA Administration Heparin Sodium (Porcine) 5,000 unit 03/20/22 10:15 03/21/22 08:54 Heparin Sodium,Porcine/Pf 5,000 Unit/0.5 Ml Syringe SQ 5,000 unit Q12HR VANIA Administration Hydrocortisone Sodium Succinate 50 mg 03/21/22 11:15 Hydrocortisone Succinate 100 Mg/2 Ml Vial IV Q12HR VANIA Hydromorphone HCl 0.25 mg 03/18/22 19:28 Hydromorphone 0.5 Mg/0.5 Ml Syringe IVP Q3HR PRN Pain Scale 1 to 3 Hydromorphone HCl 1 mg 12/05/22 19:28 Hydromorphone 1 Mg/Ml 1 Ml Syringe IVP Q3HR PRN Pain Scale 7 to 10 Hydromorphone HCl 0.5 mg 03/18/22 19:28 03/19/22 01:10 Hydromorphone 0.5 Mg/0.5 Ml Syringe IVP 0.5 mg Q3HR PRN Administration Pain Scale 4 to 6 Hydroxyzine Pamoate 25 mg 03/18/22 19:28 03/19/22 01:16 Hydroxyzine Pamoate 25 Mg Cap PO 25 mg Q4HR PRN Administration Mild Nausea and/or Anxiety Sodium Chloride 1,000 mls @ 75 mls/hr 03/18/22 08:30 03/21/22 08:55 Saline 0.9% IV 75 mls/hr .[id number] VANIA Administration Cefepime HCl 1 gm/ Sodium 50 mls @ 12.5 mls/hr 03/21/22 06:00 03/21/22 06:39 Chloride IVPB 12.5 mls/hr Q12H VANIA Administration Protocol Insulin Aspart 0 unit 03/17/22 12:30 03/21/22 06:27 Insulin Aspart (Novolog) 100 Unit/Ml Vial SQ Not Given ACHS [facility] Protocol Insulin Aspart 18 unit 03/19/22 12:30 03/21/22 06:46 Insulin Aspart (Novolog) 100 Unit/Ml Vial SQ 18 unit AC-TID VANIA Administration Insulin Detemir 17 unit 03/20/22 21:00 03/21/22 06:45 Insulin Detemir (Levemir) 100 Unit/Ml Syr SQ 17 unit BID@0700,2100 VANIA Administration Metoprolol Succinate 75 mg 03/18/22 09:00 03/20/22 09:42 Metoprolol Succinate (Er) 25 Mg Tab.Er.24h PO Not Given DAILY VANIA Midodrine 10 mg 03/20/22 07:30 03/21/22 06:40 Midodrine 5 Mg Tab PO 10 mg AC-TID VANIA Administration Montelukast Sodium 10 mg 03/18/22 09:00 03/21/22 08:54 Montelukast 10 Mg Tab PO 10 mg DAILY VANIA Administration Naloxone HCl 0.2 mg 03/18/22 19:28 Naloxone 0.4 Mg/Ml 1 Ml Vial IV Q2M PRN Opioid Reversal Ondansetron HCl 4 mg 03/18/22 19:28 03/18/22 21:50 Ondansetron 4 Mg/2 Ml Vial IVP 4 mg Q24HR PRN Administration Nausea And Vomiting Pantoprazole Sodium 40 mg 03/17/22 17:30 03/21/22 06:40 Pantoprazole 40 Mg Tablet PO 40 mg AC-BID VANIA Administration Primidone 50 mg 03/17/22 21:00 03/20/22 20:46 Primidone 50 Mg Tab PO 50 mg HS VANIA Administration Senna/Docusate Sodium 2 each 03/18/22 21:00 03/20/22 20:46 Sennosides-Docusate Sodium 1 Each Tab PO 2 each HS VANIA Administration Sodium Bicarbonate 650 mg 03/19/22 11:45 03/21/22 08:54 Sodium Bicarbonate Tab 650 Mg Tab PO 650 mg BID VANIA Administration Objective - Vital Signs Vital signs: Vital Signs Temp 98.9 F 03/21/22 08:20 Pulse 119 H 03/21/22 08:20 Resp 18 03/21/22 08:20 BP 79/53 03/21/22 08:20 Pulse Ox 90 L 03/21/22 08:20 FiO2 Intake & Output 03/20/22 03/21/22 03/21/22 18:59 06:59 18:59 Intake Total 236 1000 0 Output Total 300 Balance -64 1000 0 Intake: IV 1000 Cefepime 2 gm In Sodium 100 Chloride 0.9% 100 ml @ 200 mls/hr IVPB ONCE STA Rx#:[id number] Sodium Chloride 0.9% 1, 900 000 ml @ 75 mls/hr IV . [id number] [facility] Rx#:[id number] Oral 236 0 Output: Post Void Residual 300 Other: Voiding Method External Catheter External Catheter - Exam -GENERAL: The patient is alert and oriented x3, not in any acute distress. Morbidly obese HEENT: Pupils are round and equally reacting to light. EOMI. No scleral icterus. No conjunctival pallor. Normocephalic, atraumatic. No pharyngeal erythema. No thyromegaly. CARDIOVASCULAR: S1 and S2 present. No murmurs, rubs, or gallops. PULMONARY: Chest is clear to auscultation, no wheezing or crackles. ABDOMEN: Soft, nontender, nondistended, normoactive bowel sounds. No palpable organomegaly. -MUSCULOSKELETAL: No joint swelling or deformity. Left hip surgical wound with dressing in place. Exam is deferred to surgery team EXTREMITIES: No cyanosis, clubbing, or pedal edema. NEUROLOGICAL: Gross neurological examination did not reveal any focal deficits. SKIN: No rashes. no petechiae. - Labs CBC & Chem 7: 03/20/22 17:53 03/21/22 07:33 Labs: Abnormal Lab Results - Last 24 Hours (Table) 03/20/22 03/20/22 03/20/22 Range/Units 11:52 16:33 17:53 WBC 16.1 H (3.8-10.6) k/uL RBC 3.16 L (3.80-5.40) m/uL Hgb 8.8 L (11.4-16.0) gm/dL Hct 27.0 L (34.0-46.0) % Neutrophils # 11.8 H (1.3-7.7) k/uL Chloride (98-107) mmol/L BUN (7-17) mg/dL Creatinine (0.52-1.04) mg/dL Glucose (74-99) mg/dL POC Glucose (mg/dL) 228 H 177 H (70-110) mg/dL Calcium (8.4-10.2) mg/dL C-Reactive Protein (<1.0) mg/dL Procalcitonin (0.02-0.09) ng/mL 03/20/22 03/20/22 03/20/22 Range/Units 17:53 17:53 19:50 WBC (3.8-10.6) k/uL RBC (3.80-5.40) m/uL Hgb (11.4-16.0) gm/dL Hct (34.0-46.0) % Neutrophils # (1.3-7.7) k/uL Chloride (98-107) mmol/L BUN (7-17) mg/dL Creatinine (0.52-1.04) mg/dL Glucose (74-99) mg/dL POC Glucose (mg/dL) 160 H (70-110) mg/dL Calcium (8.4-10.2) mg/dL C-Reactive Protein 8.8 H (<1.0) mg/dL Procalcitonin 1.21 H (0.02-0.09) ng/mL 03/21/22 03/21/22 Range/Units 06:17 07:33 WBC (3.8-10.6) k/uL RBC (3.80-5.40) m/uL Hgb (11.4-16.0) gm/dL Hct (34.0-46.0) % Neutrophils # (1.3-7.7) k/uL Chloride 108 H (98-107) mmol/L BUN 43 H (7-17) mg/dL Creatinine 2.68 H (0.52-1.04) mg/dL Glucose 158 H (74-99) mg/dL POC Glucose (mg/dL) 146 H (70-110) mg/dL Calcium 7.5 L (8.4-10.2) mg/dL C-Reactive Protein (<1.0) mg/dL Procalcitonin (0.02-0.09) ng/mL Microbiology - Last 24 Hours (Table) 03/19/22 16:12 Urine Culture - Preliminary Urine,Catheterized Gram Neg Bacilli Assessment and Plan Assessment: Fall without losing consciousness but associated with lightheadedness and dizziness, most likely secondary to dehydration Left hip fracture with the plan for hip surgery by orthopedic team. Status post operative fixation of the left subtrochanteric femur fracture with medullary nail Mild vaginal bleeding Acute kidney injury with hyperkalemia Diabetes mellitus with hyperglycemia, present on admission Severe dehydration with acute kidney injury present on admission, secondary to above Acute kidney injury Chronic hypoxic respiratory failure Asthma, not acute event History of recurrent pneumonia History of lupus on treatment Morbid obesity Plan: Continue with orthopedic team recommendation. We will check ultrasound of the leg and if it is negative then we will ask orthopedic team to address her DVT prophylaxis. Continue with intravenous hydration Continue with antibiotic and follow-up culture Gynecological consult (signed off) Consult ID team Orthopedic primary team following the patient closely Continue with Levemir 17 units and NovoLog 18 units with meals and insulin sliding scale. Sugars currently well-controlled Monitor hemoglobin Consult pulmonary team on the case Labs and medication were reviewed.. Continue same treatment. Continue with symptomatic treatment. Resume home medication. Monitor labs and vitals. DVT and GI prophylaxis. Further recommendations as per clinical course of the patient DVT prophylaxis: Currently on aspirin GI Prophylaxis: Pepcid PT/OT: Pending Prognosis is guarded
--- NOTE | 2022-03-21 12:30 | P.PN ---
Subjective Progress Note Date: 03/21/22 Principal diagnosis: Severe asthma. Pulmonary consult dated 03/18/2022. 56-year-old obese female, who presented to the emergency department on March 16, having fallen at home. The patient fell off the couch was unable to get up. She was complaining of left hip pain. The patient was discovered to have a fractured hip, and is apparently going for surgery sometime later today. We were consulted for preoperative evaluation and clearance. The patient does have a history of severe asthma, and sees my partner for that. Her primary care provider is Dr. Alicea. She also sees Dr. Sparks for her kidney disease. The patient's currently on 4 L. She remains on 4 L. This is her home dose. The patient's getting saline at 50 mL an hour. She is a lifelong nonsmoker. The pa juan ramon uses home oxygen at 4 L as well. She has a history of uterine cancer, diabetes, DVT, hypertension, rheumatoid arthritis, stage III kidney disease, kidney stones, and gout among other things. I saw her about a month ago here in the hospital for coronavirus infection, with primary GI issues including nausea, vomiting, etc. She did not have coronavirus associated pneumonia. White count 10.8, hemoglobin 9.9, hematocrit 30.9, and platelet count is normal. Sodium, potassium, chloride, CO2, and anion gap all normal. BUN 35, with a creatinine of 1.45. Urinalysis suggestive of possible urinary tract infection. Chest x- ray difficult to interpret. There appears to be no acute abnormality on chest x-ray, although her chest x-ray honestly because of body habitus, it is difficult to interpret. Progress note dated 03/19/2022. The patient is seen today in room 516. She had her left hip repair yesterday by one of the orthopedic surgeons. Apparently everything went well. She is on 4 L of oxygen. She's on at home. She's getting saline at 20 mL an hour. Today is postop day #1. Other than pain, she is doing well. No new labs today other than a glucose of 284. Progress note dated 03/20/2022. 56-year-old female seen in room 362. She had a left hip repair, done on March 18. We did a preoperative clearance. She apparently was moved down to the third floor, because of hypotension. Currently, the patient's on saline at 75 mL an hour. She uses 4 L at home. White count 17.9, hemoglobin 9.7, hematocrit 30.8, and platelet count 241,000. Sodium 138, potassium 5.1, chlor ides 105, CO2 19, anion gap 14, BUN 42, and creatinine 2.94. Magnesium is 1.8. Doppler of the leg was negative for DVT. The patient apparently also developed some vaginal bleeding. Progress note dated 03/21/2022. 56-year-old female seen in room 362. She fractured her left hip, and had a repaired on March 18. She is resting comfortably today, and is on her 4 L of oxygen. This is what she uses at home. She has no complaints today. Sodium 139, potassium 3.9, chlorides 108, CO2 23, BUN 43, and creatinine 2.68. Cortisol level was 28. Urine is showing evidence of gram-negative bacilli. The patient is already on cefepime. Objective - Vital Signs Vital signs: Vital Signs Temp 98.9 F 03/21/22 08:20 Pulse 119 H 03/21/22 08:20 Resp 18 03/21/22 08:20 BP 79/53 03/21/22 08:20 Pulse Ox 90 L 03/21/22 08:20 FiO2 Intake & Output 03/20/22 03/21/22 03/21/22 18:59 06:59 18:59 Intake Total 236 1000 0 Output Total 300 Balance -64 1000 0 Intake: IV 1000 Cefepime 2 gm In Sodium 100 Chloride 0.9% 100 ml @ 200 mls/hr IVPB ONCE STA Rx#:[id number] Sodium Chloride 0.9% 1, 900 000 ml @ 75 mls/hr IV . [id number] [facility] Rx#:[id number] Oral 236 0 Output: Post Void Residual 300 Other: Voiding Method External Catheter External Catheter External Catheter - Exam No acute distress, oriented 3. Currently on 4 L of oxygen. No respiratory distress, use of accessory muscles, or conversational dyspnea. HEENT examination is grossly unremarkable. Neck supple. Full range of motion. No adenopathy thyromegaly or neck vein distention. Cardiovascular examination reveals regular rhythm rate. S1-S2 normal. No S3 or S4. No discernible murmur noted. Heart sounds are distant. Heart rate 100 bpm. Lungs reveal mostly clear breath sounds. Breath sounds are equal bilaterally. Mild scattered rhonchi without wheezes or crackles. 4 L saturation is 93 %. Abdomen soft bowel sounds are heard. No masses or tenderness. Extremities are intact. No cyanosis clubbing or edema. Skin is without rash or lesion. Neurologic examination is brief but nonfocal. - Labs CBC & Chem 7: 03/20/22 17:53 03/21/22 07:33 Labs: Abnormal Lab Results - Last 24 Hours (Table) 03/20/22 03/20/22 03/20/22 Range/Units 16:33 17:53 17:53 WBC 16.1 H (3.8-10.6) k/uL RBC 3.16 L (3.80-5.40) m/uL Hgb 8.8 L (11.4-16.0) gm/dL Hct 27.0 L (34.0-46.0) % Neutrophils # 11.8 H (1.3-7.7) k/uL Chloride (98-107) mmol/L BUN (7-17) mg/dL Creatinine (0.52-1.04) mg/dL Glucose (74-99) mg/dL POC Glucose (mg/dL) 177 H (70-110) mg/dL Calcium (8.4-10.2) mg/dL C-Reactive Protein 8.8 H (<1.0) mg/dL Procalcitonin (0.02-0.09) ng/mL 03/20/22 03/20/22 03/21/22 Range/Units 17:53 19:50 06:17 WBC (3.8-10.6) k/uL RBC (3.80-5.40) m/uL Hgb (11.4-16.0) gm/dL Hct (34.0-46.0) % Neutrophils # (1.3-7.7) k/uL Chloride (98-107) mmol/L BUN (7-17) mg/dL Creatinine (0.52-1.04) mg/dL Glucose (74-99) mg/dL POC Glucose (mg/dL) 160 H 146 H (70-110) mg/dL Calcium (8.4-10.2) mg/dL C-Reactive Protein (<1.0) mg/dL Procalcitonin 1.21 H (0.02-0.09) ng/mL 03/21/22 03/21/22 Range/Units 07:33 11:39 WBC (3.8-10.6) k/uL RBC (3.80-5.40) m/uL Hgb (11.4-16.0) gm/dL Hct (34.0-46.0) % Neutrophils # (1.3-7.7) k/uL Chloride 108 H (98-107) mmol/L BUN 43 H (7-17) mg/dL Creatinine 2.68 H (0.52-1.04) mg/dL Glucose 158 H (74-99) mg/dL POC Glucose (mg/dL) 197 H (70-110) mg/dL Calcium 7.5 L (8.4-10.2) mg/dL C-Reactive Protein (<1.0) mg/dL Procalcitonin (0.02-0.09) ng/mL Microbiology - Last 24 Hours (Table) 03/19/22 16:12 Urine Culture - Preliminary Urine,Catheterized Gram Neg Bacilli Assessment and Plan Assessment: Status post fall, with fracture of the left hip,S/P repair, March 18, postop day #3. Transient postoperative hypotension, with vaginal bleeding. Severe chronic bronchial asthma, with chronic hypoxemic respiratory failure, currently on 4 L of oxygen, and at baseline. Recent admission about one month ago, for coronavirus infection, and primary GI symptoms. Rule out urinary tract infection. History of hypertension. History of heart failure. History of stage III chronic kidney disease. Diabetes mellitus. Morbid obesity. Graves' disease. History of DVT. History of stage 1 uterine cancer. Multiple other medical problems and comorbidities. Plan: Plan dated 03/18/2022. Although the patient has a multitude of medical problems, she's pretty much stable and at baseline. Certainly, all of her medical problems, and her morbid obesity, put her at increased risk for axcomplication from surgery, but I think it's reasonable to proceed, given the fact that she needs surgery for the left hip repair. We will continue to follow make recommendations along the way. Prognosis is guarded. I was very honest with the patient and explained that she could have a complication after surgery. I did pass onto the nurse that we did clear her for surgery. Plan dated 03/19/2022. The patient did well with surgery. Today's postop day #1. She does have pain at the surgical site. She is on 4 L, which is what she takes at home. Labs, x- rays, medications are reviewed. We asked her to continue to deep breathe, c ough, clear any secretions. Incentive spirometry would be a good thing. We will continue to follow. Plan dated 03/20/2022. The patient was moved to the third floor because of hypotension, and vaginal bleeding. The patient was seen by [facility]. Labs, x-rays, medications are reviewed. Respiratory status is stable. No additional recommendations are made. We will continue to follow. Today's postop day #2. Plan dated 03/21/2022. The patient is postop day #3. She may have a urinary tract infection. ID of the gram-negative bacilli is pending. The patient is currently on cefepime. She continues on 4 L of oxygen. We will continue to follow make recommendations along the way. Prognosis is guarded. Labs, x-rays, and medications are all reviewed. Time with Patient: Less than 30
[2022-03-21] MEDS: METOPROLOL SUCCINATE (ER) 25 MG TAB.ER.24H PO SCH (12:33)
[2022-03-21 12:51] LABS: Basophils # (A) 0.1 k/uL (0-0.2); Basophils % (A) 1 %; Eosinophils # (A) 0.7 k/uL (0-0.7); Eosinophils % (A) 4 %; HCT 25.9 % (34.0-46.0); HGB 8.2 gm/dL (11.4-16.0); Hypochromasia Marked; Lymphocytes # (A) 2.3 k/uL (1.0-4.8); Lymphocytes % (A) 15 %; MCHC 31.6 g/dL (31.0-37.0); MCV 88.5 fL (80.0-100.0); Mean Platelet Volume 10.1; Monocytes # (A) 0.9 k/uL (0-1.0); Monocytes % (A) 6 %; Neutrophils # (A) 11.2 k/uL (1.3-7.7); Neutrophils % (A) 73 %; Platelet Count 277 k/uL (150-450); RBC 2.93 m/uL (3.80-5.40); RDW 14.5 % (11.5-15.5); WBC 15.3 k/uL (3.8-10.6)
[2022-03-21] MEDS: HYDROCORTISONE SUCCINATE 100 MG/2 ML VIAL IV SCH ×2 (13:55→21:41)
[2022-03-21 16:15] LABS: Glucose,Whole Blood 264 mg/dL (70-110)
[2022-03-21 19:52] LABS: Glucose,Whole Blood 224 mg/dL (70-110)
[2022-03-21] MEDS: ATORVASTATIN 10 MG TAB PO SCH (21:38)
[2022-03-21] MEDS: FENOFIBRATE 160 MG TAB PO SCH (21:38)
[2022-03-21] MEDS: SENNOSIDES-DOCUSATE SODIUM 1 EACH TAB PO SCH (21:38)
[2022-03-21] MEDS: PRIMIDONE 50 MG TAB PO SCH (21:38)
[2022-03-21] MEDS: HYDROmorphone 1 MG/ML 1 ML SYRINGE IVP PRN (21:55)
[2022-03-22] MEDS: HYDROcodone/APAP 5-325MG 1 EACH TAB PO PRN ×3 (03:01→22:17)
[2022-03-22] MEDS: SODIUM ZIRCONIUM CYCLOSILICATE 10 GM PACKET PO SCH ×2 (05:14→12:34)
[2022-03-22] MEDS: CEFEPIME 1 GM in SODIUM CHLORIDE 0.9% 50 ML IVPB SCH ×2 (05:26→17:34)
[2022-03-22 06:10] LABS: Glucose,Whole Blood 166 mg/dL (70-110)
[2022-03-22] MEDS: HYDROmorphone 1 MG/ML 1 ML SYRINGE IVP PRN (06:40)
[2022-03-22] MEDS: PANTOPRAZOLE 40 MG TABLET PO SCH ×2 (06:48→16:59)
[2022-03-22] MEDS: INSULIN DETEMIR (LEVEMIR) 100 UNIT/ML SYR SQ SCH ×2 (06:49→22:22)
[2022-03-22] MEDS: INSULIN ASPART (NovoLOG) 100 UNIT/ML VIAL SQ SCH ×7 (06:49→22:20)
[2022-03-22] MEDS: MIDODRINE 5 MG TAB PO SCH ×3 (06:50→17:04)
[2022-03-22] MEDS ORDERED: bisacodyL 10 MG SUPP RECTAL STA (07:30)
[2022-03-22] MEDS: SYMBICORT 160-4.5 MCG INHALER INHALATION SCH ×2 (08:22→18:08)
[2022-03-22] MEDS ORDERED: hydrOXYzine HCL 25 MG TAB PO PRN (09:00)
[2022-03-22 09:10] LABS: Basophils # (A) 0.1 k/uL (0-0.2); Basophils % (A) 1 %; Eosinophils # (A) 0.1 k/uL (0-0.7); Eosinophils % (A) 1 %; HCT 27.2 % (34.0-46.0); HGB 8.5 gm/dL (11.4-16.0); Hypochromasia Marked; Lymphocytes # (A) 2.4 k/uL (1.0-4.8); Lymphocytes % (A) 14 %; MCH 27.6 pg (25.0-35.0); MCHC 31.3 g/dL (31.0-37.0); MCV 88.2 fL (80.0-100.0); Mean Platelet Volume 9.4; Monocytes % (A) 6 %; Neutrophils # (A) 14.2 k/uL (1.3-7.7); Neutrophils % (A) 79 %; Platelet Count 313 k/uL (150-450); RBC 3.08 m/uL (3.80-5.40); RDW 14.5 % (11.5-15.5); WBC 18.1 k/uL (3.8-10.6)
[2022-03-22] MEDS: HEPARIN SODIUM,PORCINE/PF 5,000 UNIT/0.5 ML SYRINGE SQ SCH ×2 (09:17→22:20)
[2022-03-22] MEDS: GABAPENTIN 300 MG CAP PO SCH ×2 (09:18→22:20)
[2022-03-22] MEDS: ASPIRIN 81 MG PO SCH ×2 (09:18→22:18)
[2022-03-22] MEDS: MONTELUKAST 10 MG TAB PO SCH (09:18)
[2022-03-22] MEDS: SODIUM BICARBONATE TAB 650 MG TAB PO SCH ×3 (09:18→22:21)
[2022-03-22] MEDS: METOPROLOL SUCCINATE (ER) 25 MG TAB.ER.24H PO SCH (09:19)
[2022-03-22] MEDS: allopurinoL 100 MG TAB PO SCH ×2 (09:19→22:20)
[2022-03-22] MEDS: FLUoxetine HCL 20 MG CAP PO SCH ×2 (09:19→22:19)
[2022-03-22] MEDS: HYDROXYCHLOROQUINE SULFATE 200 MG TAB PO SCH ×2 (09:19→22:18)
[2022-03-22 09:27] LABS: Calcium 8.3 mg/dL (8.4-10.2); Magnesium 1.9 mg/dL (1.6-2.3); Potassium 5.2 mmol/L (3.5-5.1)
[2022-03-22] MEDS: HYDROCORTISONE SUCCINATE 100 MG/2 ML VIAL IV SCH ×2 (09:49→22:18)
[2022-03-22 10:14] LABS: Polychromasia Present
--- NOTE | 2022-03-22 10:58 | P.PN ---
Subjective Progress Note Date: 03/22/22 This patient is a 56- year old female who is status-post operative fixation of left subtrochanteric femur fracture with long cephalo-medullary nail on 03/18/22. Today is postoperative day #4. The patient is examined bedside this morning. She states she was up standing with physical therapy three times yesterday. She states the pain in her left hip is well controlled. No new complaints. Objective - Vital Signs Vital signs: Vital Signs Temp 97.4 F L 03/22/22 07:39 Pulse 81 03/22/22 07:39 Resp 18 03/22/22 07:39 BP 112/74 03/22/22 07:39 Pulse Ox 93 L 03/22/22 08:22 FiO2 Intake & Output 03/21/22 03/22/22 03/22/22 18:59 06:59 18:59 Intake Total 0 Output Total 500 350 Balance -500 -350 Intake: Oral 0 Output: Urine 500 350 Other: Voiding Method External Catheter External Catheter # Voids 2 - Exam On examination, the patient is sitting up in bed in no apparent distress. She is alert and orientated 3. Nasal cannula in place. On inspection of her left hip, there are 2 clean, dry, intact Opsite surgical dressings in place with no bleeding or drainage through the dressings. Motor and sensory function is intact of the left lower extremity. Left lower extremity warm and well perfused. - Labs CBC & Chem 7: 03/22/22 08:12 03/22/22 08:12 Labs: Abnormal Lab Results - Last 24 Hours (Table) 03/21/22 03/21/22 03/21/22 Range/Units 07:33 11:39 16:13 WBC 15.3 H (3.8-10.6) k/uL RBC 2.93 L (3.80-5.40) m/uL Hgb 8.2 L (11.4-16.0) gm/dL Hct 25.9 L (34.0-46.0) % Neutrophils # 11.2 H (1.3-7.7) k/uL Potassium (3.5-5.1) mmol/L Carbon Dioxide (22-30) mmol/L BUN (7-17) mg/dL Creatinine (0.52-1.04) mg/dL Glucose (74-99) mg/dL POC Glucose (mg/dL) 197 H 264 H (70-110) mg/dL Calcium (8.4-10.2) mg/dL 03/21/22 03/22/22 03/22/22 Range/Units 19:51 06:07 08:12 WBC (3.8-10.6) k/uL RBC (3.80-5.40) m/uL Hgb (11.4-16.0) gm/dL Hct (34.0-46.0) % Neutrophils # (1.3-7.7) k/uL Potassium 5.2 H (3.5-5.1) mmol/L Carbon Dioxide 20 L (22-30) mmol/L BUN 52 H (7-17) mg/dL Creatinine 2.96 H (0.52-1.04) mg/dL Glucose 144 H (74-99) mg/dL POC Glucose (mg/dL) 224 H 166 H (70-110) mg/dL Calcium 8.3 L (8.4-10.2) mg/dL 03/22/22 Range/Units 08:12 WBC 18.1 H (3.8-10.6) k/uL RBC 3.08 L (3.80-5.40) m/uL Hgb 8.5 L (11.4-16.0) gm/dL Hct 27.2 L (34.0-46.0) % Neutrophils # 14.2 H (1.3-7.7) k/uL Potassium (3.5-5.1) mmol/L Carbon Dioxide (22-30) mmol/L BUN (7-17) mg/dL Creatinine (0.52-1.04) mg/dL Glucose (74-99) mg/dL POC Glucose (mg/dL) (70-110) mg/dL Calcium (8.4-10.2) mg/dL Microbiology - Last 24 Hours (Table) 03/20/22 21:10 Blood Culture - Preliminary Blood No Growth after 24 hours 03/20/22 17:53 Blood Culture - Preliminary Blood No Growth after 24 hours 03/19/22 16:12 Urine Culture - Preliminary Urine,Catheterized Gram Neg Bacilli Yeast species Assessment and Plan Assessment: Status-post operative fixation of left subtrochanteric femur fracture with long cephalo-medullary nail on 03/18/22. Post-operative day #4. Plan: - Weight bear to tolerance on operative extremity with a walker. Up with assistance. - Physical therapy for gait and balance training. - Keep operative dressings intact. - Medical management per internal medicine. Will defer to IM for DVT prophylaxis as patient has history of DVT. Patient currently on Heparin inpatient per Dr. Cunningham. Multiple medical specialities following. - We will follow the patient peripherally while she remains inpatient. She sh ould follow-up in the office at [facility] 2 weeks following discharge for incision check and x-rays of the left hip and pelvis.
--- NOTE | 2022-03-22 11:08 | P.PN ---
Subjective Patient is seen in follow-up for acute kidney injury on chronic kidney disease. Renal function worse. Creatinine 2.96. Resting in bed. Oriented chair. Denies chest pain or shortness of breath. Blood pressure improved. Vital signs are stable. General: Awake. No acute distress. HEENT: Head exam is unremarkable. LUNGS: Breath sounds decreased. HEART: Rate and Rhythm are regular. ABDOMEN: Soft, no distention. EXTREMITITES: No edema. Objective - Vital Signs Vital signs: Vital Signs Temp 97.4 F L 03/22/22 07:39 Pulse 81 03/22/22 07:39 Resp 18 03/22/22 07:39 BP 112/74 03/22/22 07:39 Pulse Ox 93 L 03/22/22 08:22 FiO2 Intake & Output 03/21/22 03/22/22 03/22/22 18:59 06:59 18:59 Intake Total 0 Output Total 500 350 Balance -500 -350 Intake: Oral 0 Output: Urine 500 350 Other: Voiding Method External Catheter External Catheter # Voids 2 - Labs CBC & Chem 7: 03/22/22 08:12 03/22/22 08:12 Labs: Abnormal Lab Results - Last 24 Hours (Table) 03/21/22 03/21/22 03/21/22 Range/Units 07:33 11:39 16:13 WBC 15.3 H (3.8-10.6) k/uL RBC 2.93 L (3.80-5.40) m/uL Hgb 8.2 L (11.4-16.0) gm/dL Hct 25.9 L (34.0-46.0) % Neutrophils # 11.2 H (1.3-7.7) k/uL Potassium (3.5-5.1) mmol/L Carbon Dioxide (22-30) mmol/L BUN (7-17) mg/dL Creatinine (0.52-1.04) mg/dL Glucose (74-99) mg/dL POC Glucose (mg/dL) 197 H 264 H (70-110) mg/dL Calcium (8.4-10.2) mg/dL 03/21/22 03/22/22 03/22/22 Range/Units 19:51 06:07 08:12 WBC (3.8-10.6) k/uL RBC (3.80-5.40) m/uL Hgb (11.4-16.0) gm/dL Hct (34.0-46.0) % Neutrophils # (1.3-7.7) k/uL Potassium 5.2 H (3.5-5.1) mmol/L Carbon Dioxide 20 L (22-30) mmol/L BUN 52 H (7-17) mg/dL Creatinine 2.96 H (0.52-1.04) mg/dL Glucose 144 H (74-99) mg/dL POC Glucose (mg/dL) 224 H 166 H (70-110) mg/dL Calcium 8.3 L (8.4-10.2) mg/dL 03/22/22 Range/Units 08:12 WBC 18.1 H (3.8-10.6) k/uL RBC 3.08 L (3.80-5.40) m/uL Hgb 8.5 L (11.4-16.0) gm/dL Hct 27.2 L (34.0-46.0) % Neutrophils # 14.2 H (1.3-7.7) k/uL Potassium (3.5-5.1) mmol/L Carbon Dioxide (22-30) mmol/L BUN (7-17) mg/dL Creatinine (0.52-1.04) mg/dL Glucose (74-99) mg/dL POC Glucose (mg/dL) (70-110) mg/dL Calcium (8.4-10.2) mg/dL Microbiology - Last 24 Hours (Table) 03/20/22 21:10 Blood Culture - Preliminary Blood No Growth after 24 hours 03/20/22 17:53 Blood Culture - Preliminary Blood No Growth after 24 hours 03/19/22 16:12 Urine Culture - Preliminary Urine,Catheterized Gram Neg Bacilli Yeast species Assessment and Plan Plan: Assessment: 1. Acute kidney injury mostly prerenal secondary to hypovolemia from severe hyperglycemia. Further worsened due to severe hypotension with blood pressure in the systolic 70s. Creatinine 2.96 today. No hydronephrosis noted on kidney ultrasound although right kidney was not visualized. 2. Chronic kidney disease stage IIIB secondary to diabetic kidney disease. Baseline creatinine near 1.5. 3. History of lupus maintained on Plaquenil. Patient's UA from 02/14/2022 showed only 1 RBC. 4. Gram-negative UTI. On antibiotics. ID following. 5. Diabetes mellitus. Uncontrolled on admission. 6. Left femur fracture status post surgical repair 03/18/2022. 7. Hyperkalemia secondary to acute kidney injury, hyperglycemia and acidosis. 8. Endometrial cancer being followed by oncology outpatient. 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 9. Metabolic acidosis secondary to acute kidney injury and IV fluids. Plan: Maintain normal saline at 75 mL an hour. Maintain IV steroids. Continue to hold diuretics. Avoid nephrotoxins. Blood sugar control. Strict is and os. Maintain midodrine. Hold for systolic blood pressure greater than 110. Increase frequency of bicarbonate. Add lokelma.
[2022-03-22 12:05] LABS: Glucose,Whole Blood 196 mg/dL (70-110)
[2022-03-22] MEDS: FLUCONAZOLE 100 MG TAB PO SCH (14:12)
[2022-03-22 14:13] VITALS: BMI 49.6
--- NOTE | 2022-03-22 14:38 | P.PN ---
Subjective Progress Note Date: 03/22/22 Principal diagnosis: Severe asthma. Pulmonary consult dated 03/18/2022. 56-year-old obese female, who presented to the emergency department on March 16, having fallen at home. The patient fell off the couch was unable to get up. She was complaining of left hip pain. The patient was discovered to have a fractured hip, and is apparently going for surgery sometime later today. We were consulted for preoperative evaluation and clearance. The patient does have a history of severe asthma, and sees my partner for that. Her primary care provider is Dr. Alicea. She also sees Dr. Sparks for her kidney disease. The patient's currently on 4 L. She remains on 4 L. This is her home dose. The patient's getting saline at 50 mL an hour. She is a lifelong nonsmoker. The pa juan ramon uses home oxygen at 4 L as well. She has a history of uterine cancer, diabetes, DVT, hypertension, rheumatoid arthritis, stage III kidney disease, kidney stones, and gout among other things. I saw her about a month ago here in the hospital for coronavirus infection, with primary GI issues including nausea, vomiting, etc. She did not have coronavirus associated pneumonia. White count 10.8, hemoglobin 9.9, hematocrit 30.9, and platelet count is normal. Sodium, potassium, chloride, CO2, and anion gap all normal. BUN 35, with a creatinine of 1.45. Urinalysis suggestive of possible urinary tract infection. Chest x- ray difficult to interpret. There appears to be no acute abnormality on chest x-ray, although her chest x-ray honestly because of body habitus, it is difficult to interpret. Progress note dated 03/19/2022. The patient is seen today in room 516. She had her left hip repair yesterday by one of the orthopedic surgeons. Apparently everything went well. She is on 4 L of oxygen. She's on at home. She's getting saline at 20 mL an hour. Today is postop day #1. Other than pain, she is doing well. No new labs today other than a glucose of 284. Progress note dated 03/20/2022. 56-year-old female seen in room 362. She had a left hip repair, done on March 18. We did a preoperative clearance. She apparently was moved down to the third floor, because of hypotension. Currently, the patient's on saline at 75 mL an hour. She uses 4 L at home. White count 17.9, hemoglobin 9.7, hematocrit 30.8, and platelet count 241,000. Sodium 138, potassium 5.1, chlor ides 105, CO2 19, anion gap 14, BUN 42, and creatinine 2.94. Magnesium is 1.8. Doppler of the leg was negative for DVT. The patient apparently also developed some vaginal bleeding. Progress note dated 03/21/2022. 56-year-old female seen in room 362. She fractured her left hip, and had a repaired on March 18. She is resting comfortably today, and is on her 4 L of oxygen. This is what she uses at home. She has no complaints today. Sodium 139, potassium 3.9, chlorides 108, CO2 23, BUN 43, and creatinine 2.68. Cortisol level was 28. Urine is showing evidence of gram-negative bacilli. The patient is already on cefepime. Progress note dated 03/22/2022. 56-year-old female seen in room 362. She status post fractured left hip and repair, on March 18. She is on oxygen at 4 L, which is where she was at home. The patient is on saline at 75 mL per hour. She is doing relatively well. White count 18.1, hemoglobin 8.5, hematocrit 27.2, and platelet count is 313,000. Sodium 139, potassium 5.2, chlorides 106, CO2 20, anion gap 13, BUN 52, with a creatinine of 2.96. Urine from March 19 when showing gram-negative bacilli and yeast species. Objective - Vital Signs Vital signs: Vital Signs Temp 97.2 F L 03/22/22 12:00 Pulse 111 H 03/22/22 12:00 Resp 19 03/22/22 14:00 BP 152/81 03/22/22 12:00 Pulse Ox 96 03/22/22 12:00 FiO2 Intake & Output 03/21/22 03/22/22 03/22/22 18:59 06:59 18:59 Intake Total 0 Output Total 500 350 Balance -500 -350 Weight 139.5 kg Intake: Oral 0 Output: Urine 500 350 Other: Voiding Method External Catheter External Catheter # Voids 2 - Exam No acute distress, oriented 3. Currently on 4 L of oxygen. No respiratory distress, use of accessory muscles, or conversational dyspnea. HEENT examination is grossly unremarkable. Neck supple. Full range of motion. No adenopathy thyromegaly or neck vein distention. Cardiovascular examination reveals regular rhythm rate. S1-S2 normal. No S3 or S4. No discernible murmur noted. Heart sounds are distant. Heart rate 103 bpm. Lungs reveal mostly clear breath sounds. Breath sounds are equal bilaterally. Mild scattered rhonchi without wheezes or crackles. 4 L saturation is 96 %. Abdomen soft bowel sounds are heard. No masses or tenderness. Extremities are intact. No cyanosis clubbing or edema. Skin is without rash or lesion. Neurologic examination is brief but nonfocal. - Labs CBC & Chem 7: 03/22/22 08:12 03/22/22 08:12 Labs: Abnormal Lab Results - Last 24 Hours (Table) 03/21/22 03/21/22 03/22/22 Range/Units 16:13 19:51 06:07 WBC (3.8-10.6) k/uL RBC (3.80-5.40) m/uL Hgb (11.4-16.0) gm/dL Hct (34.0-46.0) % Neutrophils # (1.3-7.7) k/uL Potassium (3.5-5.1) mmol/L Carbon Dioxide (22-30) mmol/L BUN (7-17) mg/dL Creatinine (0.52-1.04) mg/dL Glucose (74-99) mg/dL POC Glucose (mg/dL) 264 H 224 H 166 H (70-110) mg/dL Calcium (8.4-10.2) mg/dL 03/22/22 03/22/22 03/22/22 Range/Units 08:12 08:12 11:57 WBC 18.1 H (3.8-10.6) k/uL RBC 3.08 L (3.80-5.40) m/uL Hgb 8.5 L (11.4-16.0) gm/dL Hct 27.2 L (34.0-46.0) % Neutrophils # 14.2 H (1.3-7.7) k/uL Potassium 5.2 H (3.5-5.1) mmol/L Carbon Dioxide 20 L (22-30) mmol/L BUN 52 H (7-17) mg/dL Creatinine 2.96 H (0.52-1.04) mg/dL Glucose 144 H (74-99) mg/dL POC Glucose (mg/dL) 196 H (70-110) mg/dL Calcium 8.3 L (8.4-10.2) mg/dL Microbiology - Last 24 Hours (Table) 03/20/22 21:10 Blood Culture - Preliminary Blood No Growth after 24 hours 03/20/22 17:53 Blood Culture - Preliminary Blood No Growth after 24 hours 03/19/22 16:12 Urine Culture - Preliminary Urine,Catheterized Gram Neg Bacilli Yeast species Assessment and Plan Assessment: Status post fall, with fracture of the left hip,S/P repair, March 18, postop day #4. Transient postoperative hypotension, with vaginal bleeding. Severe chronic bronchial asthma, with chronic hypoxemic respiratory failure, currently on 4 L of oxygen, and at baseline. Recent admission about one month ago, for coronavirus infection, and primary GI symptoms. Rule out urinary tract infection. History of hypertension. History of heart failure. History of stage III chronic kidney disease. Diabetes mellitus. Morbid obesity. Graves' disease. History of DVT. History of stage 1 uterine cancer. Multiple other medical problems and comorbidities. Plan: Plan dated 03/18/2022. Although the patient has a multitude of medical problems, she's pretty much stable and at baseline. Certainly, all of her medical problems, and her morbid obesity, put her at increased risk for axcomplication from surgery, but I think it's reasonable to proceed, given the fact that she needs surgery for the left hip repair. We will continue to follow make recommendations along the way. Prognosis is guarded. I was very honest with the patient and explained that she could have a complication after surgery. I did pass onto the nurse that we did clear her for surgery. Plan dated 03/19/2022. The patient did well with surgery. Today's postop day #1. She does have pain at the surgical site. She is on 4 L, which is what she takes at home. Labs, x- rays, medications are reviewed. We asked her to continue to deep breathe, cough, clear any secretions. Incentive spirometry would be a good thing. We will continue to follow. Plan dated 03/20/2022. The patient was moved to the third floor because of hypotension, and vaginal bleeding. The patient was seen by MOLD STAMPER AND REPAIRER. Labs, x-rays, medications are reviewed. Respiratory status is stable. No additional recommendations are made. We will continue to follow. Today's postop day #2. Plan dated 03/21/2022. The patient is postop day #3. She may have a urinary tract infection. ID of the gram-negative bacilli is pending. The patient is currently on cefepime. She continues on 4 L of oxygen. We will continue to follow make recommendations along the way. Prognosis is guarded. Labs, x-rays, and medications are all reviewed. Plan dated 03/22/2022. The patient is postop day #4. The patient may have a urinary tract infection. Currently she is on cefepime. She continues on 4 L. Labs, x-rays, and medications are reviewed. The patient is stable from the pulmonary standpoint. We will continue to follow make recommendations along the way. No additional recommendations are made at this time. Prognosis is guarded. Time with Patient: Less than 30
--- NOTE | 2022-03-22 15:50 | CDI ---
Documentation Clarification Form Date: 03/22/2022 03:06:39 PM From: Bettina Damico RN CCDS Admit Date: 03/20/2022 09:24:00 AM Patient Name: Tamela Diaz Visit Number: [id number] Discharge Date: ATTENTION: The Clinical Documentation Specialists (CDI) and [facility] Coding Staff appreciate your assistance in clarifying documentation. Please respond to the clarification below the line at the bottom and electronically sign. The CDI & [facility] Coding staff will review the response and follow-up if needed. Please note: Queries are made part of the Legal Health Record. If you have any questions, please contact the author of this message via ITS. Dr. Yakov Hodge Transient Postoperative Hypotension is documented in the 03/22, [employer] Manager note. Additional clarification regarding this diagnosis is requested. History/Risk Factors: 56-year-old female presents to the ED after a fall on her buttocks with left hip fracture. Medical History: CKD 3b, DM2, RA, 4L nasal cannula chronic respiratory failure and Endometrial cancer. H&P, 03/17 Clinical Indicators: VS: 03/19 11:40 B/P 81/43; HR 107; Temp 97.6 F Oral; RR 16; SpO2 100% 4L nasal cannula 03/19 18:46 B/P 73/42; HR 100; Temp 97.6 F Oral; RR 16; SpO2 95% 4L nasal cannula 03/20 00:00 B/P 74/45; HR 97; Temp 98.1 F Oral; RR 16; SpO2 95% 4L nasal cannula 03/20 16:00 B/P 98/64; HR 96; Temp 97.6 F Oral; RR 17; SpO2 94% 4L nasal cannula LABS: 03/17 10.7; 03/18 9.7; 03/19 8.9; 03/20 8.8; 03/21 8.2 Procedure, 03/18: Fixation of left subtrochanteric femur fracture with long cephalon-medullary nail. Estimated blood loss 200. Gynecology consult, 03/19: Postmenopausal bleeding; While in OR, a significant amount of vaginal bleeding was noted. Patient will continue to have vaginal bleeding off and on until she undergoes treatment with Radiation Oncology. Transfuse 1unit for Hgb below 7. Treatment: Daily CBC; 03/19 - 03/19 Midodrine 5mg PO AC TID (one dose administered) 03/20 03/22 Midodrine 10mg PO AC TID; 03/17 0.9NS 1.5 L IV bolus; 03/18 0.9NS 75cc/hr; 03/18 0.9NS 800cc IV; 0.9NS 100cc IV; 01/17 0.9NS 1.5L IV bolus. Can the Transient postoperative hypotension be further specified? [ ] Hypotension secondary to acute blood loss anemia [ ] Hypotension secondary to procedure [ ] Hypotension due to other etiology (please specify) [ ] Other Condition, please specify [ ] Unable to determine (Template Last Revised: June 2020) MTDD
[2022-03-22 16:39] LABS: Glucose,Whole Blood 236 mg/dL (70-110)
[2022-03-22] MEDS: ALBUTEROL NEBULIZED 2.5 MG/3 ML INHALATION PRN (18:08)
--- NOTE | 2022-03-22 19:09 | P.PN ---
Subjective Progress Note Date: 03/22/22 56-year-old lady with past medical history significant for insulin-dependent diabetes mellitus, hypertension, hyperlipidemia presented to the ER because of fall. Patient was all right yesterday evening when while she was watching TV and trying to get out of her couch she lost her balance and fell on her buttocks. She didn't lose any consciousness. Patient denied any seizure-like activity. Patient had no prior episode of any bone. Patient did not hit her head. Because of this fall patient came to the ER. In the ER, initial lab work showed patient to have a white count of 13.6, hemoglobin of 10.7, sodium 134, potassium 6, anion gap 10, creatinine 1.69, initial glucose was elevated at 75. X-ray of left hip and pelvis are negative for any fractures. Patient was admitted for further evaluation and treatment Objective - Vital Signs Vital signs: Vital Signs Temp 97.2 F L 03/22/22 12:00 Pulse 111 H 03/22/22 12:00 Resp 19 03/22/22 12:00 BP 152/81 03/22/22 12:00 Pulse Ox 96 03/22/22 12:00 FiO2 Intake & Output 03/21/22 03/22/22 03/22/22 18:59 06:59 18:59 Intake Total 0 Output Total 500 350 Balance -500 -350 Intake: Oral 0 Output: Urine 500 350 Other: Voiding Method External Catheter External Catheter # Voids 2 - Exam -GENERAL: The patient is alert and oriented x3, not in any acute distress. Morbidly obese HEENT: Pupils are round and equally reacting to light. EOMI. No scleral icterus. No conjunctival pallor. Normocephalic, atraumatic. No pharyngeal erythema. No thyromegaly. CARDIOVASCULAR: S1 and S2 present. No murmurs, rubs, or gallops. PULMONARY: Chest is clear to auscultation, no wheezing or crackles. ABDOMEN: Soft, nontender, nondistended, normoactive bowel sounds. No palpable organomegaly. -MUSCULOSKELETAL: No joint swelling or deformity. Left hip surgical wound with dressing in place. Exam is deferred to surgery team EXTREMITIES: No cyanosis, clubbing, or pedal edema. NEUROLOGICAL: Gross neurological examination did not reveal any focal deficits. SKIN: No rashes. no petechiae. - Labs CBC & Chem 7: 12/09/22 08:12 03/22/22 08:12 Labs: Abnormal Lab Results - Last 24 Hours (Table) 03/21/22 03/21/22 03/21/22 Range/Units 07:33 16:13 19:51 WBC 15.3 H (3.8-10.6) k/uL RBC 2.93 L (3.80-5.40) m/uL Hgb 8.2 L (11.4-16.0) gm/dL Hct 25.9 L (34.0-46.0) % Neutrophils # 11.2 H (1.3-7.7) k/uL Potassium (3.5-5.1) mmol/L Carbon Dioxide (22-30) mmol/L BUN (7-17) mg/dL Creatinine (0.52-1.04) mg/dL Glucose (74-99) mg/dL POC Glucose (mg/dL) 264 H 224 H (70-110) mg/dL Calcium (8.4-10.2) mg/dL 03/22/22 03/22/22 03/22/22 Range/Units 06:07 08:12 08:12 WBC 18.1 H (3.8-10.6) k/uL RBC 3.08 L (3.80-5.40) m/uL Hgb 8.5 L (11.4-16.0) gm/dL Hct 27.2 L (34.0-46.0) % Neutrophils # 14.2 H (1.3-7.7) k/uL Potassium 5.2 H (3.5-5.1) mmol/L Carbon Dioxide 20 L (22-30) mmol/L BUN 52 H (7-17) mg/dL Creatinine 2.96 H (0.52-1.04) mg/dL Glucose 144 H (74-99) mg/dL POC Glucose (mg/dL) 166 H (70-110) mg/dL Calcium 8.3 L (8.4-10.2) mg/dL 03/22/22 Range/Units 11:57 WBC (3.8-10.6) k/uL RBC (3.80-5.40) m/uL Hgb (11.4-16.0) gm/dL Hct (34.0-46.0) % Neutrophils # (1.3-7.7) k/uL Potassium (3.5-5.1) mmol/L Carbon Dioxide (22-30) mmol/L BUN (7-17) mg/dL Creatinine (0.52-1.04) mg/dL Glucose (74-99) mg/dL POC Glucose (mg/dL) 196 H (70-110) mg/dL Calcium (8.4-10.2) mg/dL Microbiology - Last 24 Hours (Table) 03/20/22 21:10 Blood Culture - Preliminary Blood No Growth after 24 hours 03/20/22 17:53 Blood Culture - Preliminary Blood No Growth after 24 hours 03/19/22 16:12 Urine Culture - Preliminary Urine,Catheterized Gram Neg Bacilli Yeast species Assessment and Plan Assessment: Fall without losing consciousness but associated with lightheadedness and dizziness, most likely secondary to dehydration Left hip fracture with the plan for hip surgery by orthopedic team. Status post operative fixation of the left subtrochanteric femur fracture with medullary nail Mild vaginal bleeding Acute kidney injury with hyperkalemia Diabetes mellitus with hyperglycemia, present on admission Severe dehydration with acute kidney injury present on admission, secondary to above Acute kidney injury Chronic hypoxic respiratory failure Asthma, not acute event History of recurrent pneumonia History of lupus on treatment Morbid obesity Plan: Continue with orthopedic team recommendation. We will check ultrasound of the leg and if it is negative then we will ask orthopedic team to address her DVT prophylaxis. Continue with intravenous hydration Continue with antibiotic and follow-up culture Gynecological consult (signed off) Consult ID team Orthopedic primary team following the patient closely Continue with Levemir 17 units and NovoLog 18 units with meals and insulin sliding scale. Sugars currently well-controlled Monitor hemoglobin Consult pulmonary team on the case Labs and medication were reviewed.. Continue same treatment. Continue with symptomatic treatment. Resume home medication. Monitor labs and vitals. DVT and GI prophylaxis. Further recommendations as per clinical course of the patient DVT prophylaxis: Currently on aspirin GI Prophylaxis: Pepcid PT/OT: Pending
[2022-03-22 19:58] LABS: Glucose,Whole Blood 267 mg/dL (70-110)
[2022-03-22] MEDS: FENOFIBRATE 160 MG TAB PO SCH (22:18)
[2022-03-22] MEDS: SENNOSIDES-DOCUSATE SODIUM 1 EACH TAB PO SCH (22:19)
[2022-03-22] MEDS: ATORVASTATIN 10 MG TAB PO SCH (22:20)
[2022-03-22] MEDS: PRIMIDONE 50 MG TAB PO SCH (22:20)
[2022-03-22] MEDS: SODIUM CHLORIDE 0.9% 1,000 ML IV SCH (22:22)
[2022-03-23] MEDS: CEFEPIME 1 GM in SODIUM CHLORIDE 0.9% 50 ML IVPB SCH ×2 (05:10→18:11)
[2022-03-23 06:02] LABS: Glucose,Whole Blood 256 mg/dL (70-110)
[2022-03-23] MEDS: MIDODRINE 5 MG TAB PO SCH ×3 (06:40→17:08)
[2022-03-23] MEDS: INSULIN ASPART (NovoLOG) 100 UNIT/ML VIAL SQ SCH ×7 (06:50→20:38)
[2022-03-23] MEDS: INSULIN DETEMIR (LEVEMIR) 100 UNIT/ML SYR SQ SCH ×2 (06:50→22:05)
[2022-03-23] MEDS: SODIUM CHLORIDE 0.9% 1,000 ML IV SCH (06:50)
[2022-03-23] MEDS: PANTOPRAZOLE 40 MG TABLET PO SCH ×2 (06:51→18:10)
[2022-03-23] MEDS: HYDROcodone/APAP 5-325MG 1 EACH TAB PO PRN ×4 (07:00→20:36)
[2022-03-23] MEDS: SYMBICORT 160-4.5 MCG INHALER INHALATION SCH ×2 (07:49→20:39)
[2022-03-23] MEDS: SODIUM ZIRCONIUM CYCLOSILICATE 10 GM PACKET PO SCH (09:09)
[2022-03-23] MEDS: GABAPENTIN 300 MG CAP PO SCH ×2 (09:09→20:38)
[2022-03-23] MEDS: HYDROXYCHLOROQUINE SULFATE 200 MG TAB PO SCH ×2 (09:09→22:05)
[2022-03-23] MEDS: HEPARIN SODIUM,PORCINE/PF 5,000 UNIT/0.5 ML SYRINGE SQ SCH ×2 (09:09→20:37)
[2022-03-23] MEDS: MONTELUKAST 10 MG TAB PO SCH (09:09)
[2022-03-23] MEDS: HYDROCORTISONE SUCCINATE 100 MG/2 ML VIAL IV SCH ×2 (09:09→20:37)
[2022-03-23] MEDS: ASPIRIN 81 MG PO SCH ×2 (09:09→20:38)
[2022-03-23] MEDS: SODIUM BICARBONATE TAB 650 MG TAB PO SCH ×3 (09:10→20:38)
[2022-03-23] MEDS: hydrOXYzine pamoate 25 MG CAP PO PRN ×2 (09:10→13:05)
[2022-03-23] MEDS: METOPROLOL SUCCINATE (ER) 25 MG TAB.ER.24H PO SCH (09:10)
[2022-03-23] MEDS: FLUoxetine HCL 20 MG CAP PO SCH ×2 (09:10→20:38)
[2022-03-23] MEDS: allopurinoL 100 MG TAB PO SCH ×2 (09:11→20:38)
[2022-03-23] MEDS: FLUCONAZOLE 100 MG TAB PO SCH (09:11)
[2022-03-23 10:00] LABS: Basophils # (A) 0.1 k/uL (0-0.2); Basophils % (A) 1 %; Eosinophils # (A) 0.1 k/uL (0-0.7); Eosinophils % (A) 0 %; HCT 28.7 % (34.0-46.0); HGB 8.8 gm/dL (11.4-16.0); Hypochromasia Marked; Lymphocytes # (A) 1.8 k/uL (1.0-4.8); Lymphocytes % (A) 11 %; MCH 27.7 pg (25.0-35.0); MCHC 30.6 g/dL (31.0-37.0); MCV 90.3 fL (80.0-100.0); Mean Platelet Volume 9.2; Monocytes # (A) 0.7 k/uL (0-1.0); Monocytes % (A) 4 %; Neutrophils # (A) 13.3 k/uL (1.3-7.7); Neutrophils % (A) 83 %; Platelet Count 336 k/uL (150-450); RBC 3.18 m/uL (3.80-5.40); RDW 14.4 % (11.5-15.5); WBC 16.1 k/uL (3.8-10.6)
[2022-03-23 10:14] LABS: C Reactive Protein 8.1 mg/dL (<1.0); Calcium 8.5 mg/dL (8.4-10.2); Magnesium 1.9 mg/dL (1.6-2.3); Potassium 5.2 mmol/L (3.5-5.1)
[2022-03-23] MEDS ORDERED: SODIUM BICARB 8.4% 50 ML SYR (1 MEQ/ML) IV STA (10:36)
--- NOTE | 2022-03-23 10:39 | P.PN ---
Subjective Patient is seen in follow-up for acute kidney injury on chronic kidney disease. Renal function a little better today. Resting in bed. Awake and alert. Denies chest pain or shortness of breath. Blood pressure stable. Vital signs are stable. General: Awake. No acute distress. HEENT: Head exam is unremarkable. LUNGS: Breath sounds decreased. HEART: Rate and Rhythm are regular. ABDOMEN: Soft, no distention. EXTREMITITES: No edema. Objective - Vital Signs Vital signs: Vital Signs Temp 97.5 F L 03/23/22 08:00 Pulse 76 03/23/22 08:00 Resp 18 03/23/22 08:00 BP 116/69 03/23/22 08:00 Pulse Ox 100 03/23/22 08:00 FiO2 Intake & Output 03/22/22 03/23/22 03/23/22 18:59 06:59 18:59 Intake Total 118 Output Total 450 Balance -450 118 Weight 139.5 kg Intake: Oral 118 Output: Urine 450 Other: Voiding Method External Catheter # Bowel Movements 1 - Labs CBC & Chem 7: 03/23/22 09:00 03/23/22 09:00 Labs: Abnormal Lab Results - Last 24 Hours (Table) 03/22/22 03/22/22 03/22/22 Range/Units 11:57 16:37 19:57 WBC (3.8-10.6) k/uL RBC (3.80-5.40) m/uL Hgb (11.4-16.0) gm/dL Hct (34.0-46.0) % MCHC (31.0-37.0) g/dL Neutrophils # (1.3-7.7) k/uL Potassium (3.5-5.1) mmol/L Carbon Dioxide (22-30) mmol/L BUN (7-17) mg/dL Creatinine (0.52-1.04) mg/dL Glucose (74-99) mg/dL POC Glucose (mg/dL) 196 H 236 H 267 H (70-110) mg/dL C-Reactive Protein (<1.0) mg/dL 03/23/22 03/23/22 03/23/22 Range/Units 06:00 09:00 09:00 WBC 16.1 H (3.8-10.6) k/uL RBC 3.18 L (3.80-5.40) m/uL Hgb 8.8 L (11.4-16.0) gm/dL Hct 28.7 L (34.0-46.0) % MCHC 30.6 L (31.0-37.0) g/dL Neutrophils # 13.3 H (1.3-7.7) k/uL Potassium 5.2 H (3.5-5.1) mmol/L Carbon Dioxide 19 L (22-30) mmol/L BUN 55 H (7-17) mg/dL Creatinine 2.57 H (0.52-1.04) mg/dL Glucose 253 H (74-99) mg/dL POC Glucose (mg/dL) 256 H (70-110) mg/dL C-Reactive Protein 8.1 H (<1.0) mg/dL Microbiology - Last 24 Hours (Table) 03/20/22 21:10 Blood Culture - Preliminary Blood No Growth after 48 hours 03/20/22 17:53 Blood Culture - Preliminary Blood No Growth after 48 hours 03/19/22 16:12 Urine Culture - Final Urine,Catheterized Klebsiella pneumoniae Shelly glabrata Assessment and Plan Plan: Assessment: 1. Acute kidney injury mostly prerenal secondary to hypovolemia from severe hyp erglycemia. Further worsened due to severe hypotension with blood pressure in the systolic 70s. Creatinine 2.57 today. No hydronephrosis noted on kidney ultrasound although right kidney was not visualized. 2. Chronic kidney disease stage IIIB secondary to diabetic kidney disease. Baseline creatinine near 1.5. 3. History of lupus maintained on Plaquenil. Patient's UA from 02/14/2022 showed only 1 RBC. 4. Klebsiella UTI. On antibiotics. ID following. 5. Diabetes mellitus. Uncontrolled on admission. 6. Left femur fracture status post surgical repair 03/18/2022. 7. Hyperkalemia secondary to acute kidney injury, hyperglycemia and acidosis. 8. Endometrial cancer being followed by oncology outpatient. 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 9. Metabolic acidosis secondary to acute kidney injury and IV fluids. Plan: Decrease rate of normal saline to 50 mL an hour. Maintain IV steroids. Continue to hold diuretics. Avoid nephrotoxins. Blood sugar control. Strict is and os. Maintain midodrine. Hold for systolic blood pressure greater than 110. 2 A of sodium bicarb IV push today. Maintain lokelma.
[2022-03-23] MEDS: ALBUTEROL NEBULIZED 2.5 MG/3 ML INHALATION PRN ×2 (11:13→22:41)
[2022-03-23 11:49] LABS: Glucose,Whole Blood 261 mg/dL (70-110)
--- NOTE | 2022-03-23 16:17 | P.PN ---
Subjective Progress Note Date: 03/21/22 Principal diagnosis: Fever and urinary tract infection Patient is a 56-year-old female initially presenting to the hospital after the patient did have a fall patient did have a pain to the left leg area and she was noticed to have a nondisplaced subtrochanteric femoral fracture in this patient was status post surgical repair of the fracture patient noticed to have a fever and elevated white count and positive UA concerning for UTI. On today's evaluation that is 03/21/2022 the patient is afebrile, the patient is breathing comfortably on a 4 L nasal cannula the patient denies having any chest pain occasional cough no nausea no vomiting no abdominal pain or diarrhea pain to the hip pain is currently controlled Objective - Vital Signs Vital signs: Vital Signs Temp 97.6 F 03/21/22 12:41 Pulse 125 H 03/21/22 12:41 Resp 20 03/21/22 12:41 BP 107/74 03/21/22 12:41 Pulse Ox 90 L 03/21/22 12:41 FiO2 Intake & Output 03/20/22 03/21/22 03/21/22 18:59 06:59 18:59 Intake Total 236 1000 0 Output Total 300 500 Balance -64 1000 -500 Intake: IV 1000 Cefepime 2 gm In Sodium 100 Chloride 0.9% 100 ml @ 200 mls/hr IVPB ONCE STA Rx#:[id number] Sodium Chloride 0.9% 1, 900 000 ml @ 75 mls/hr IV . [id number] [facility] Rx#:[id number] Oral 236 0 Output: Urine 500 Post Void Residual 300 Other: Voiding Method External Catheter External Catheter External Catheter # Voids 2 - Exam GENERAL DESCRIPTION: Middle-age female lying in bed in no distress RESPIRATORY SYSTEM: Unlabored breathing , decreased breath sounds at bases HEART: S1 S2 regular rate and rhythm , ABDOMEN: Soft , no tenderness EXTREMITIES: No edema feet - Labs CBC & Chem 7: 03/23/22 09:00 03/23/22 09:00 Labs: Abnormal Lab Results - Last 24 Hours (Table) 03/20/22 03/20/22 03/20/22 Range/Units 16:33 17:53 17:53 WBC 16.1 H (3.8-10.6) k/uL RBC 3.16 L (3.80-5.40) m/uL Hgb 8.8 L (11.4-16.0) gm/dL Hct 27.0 L (34.0-46.0) % Neutrophils # 11.8 H (1.3-7.7) k/uL Chloride (98-107) mmol/L BUN (7-17) mg/dL Creatinine (0.52-1.04) mg/dL Glucose (74-99) mg/dL POC Glucose (mg/dL) 177 H (70-110) mg/dL Calcium (8.4-10.2) mg/dL C-Reactive Protein 8.8 H (<1.0) mg/dL Procalcitonin (0.02-0.09) ng/mL 03/20/22 03/20/22 03/21/22 Range/Units 17:53 19:50 06:17 WBC (3.8-10.6) k/uL RBC (3.80-5.40) m/uL Hgb (11.4-16.0) gm/dL Hct (34.0-46.0) % Neutrophils # (1.3-7.7) k/uL Chloride (98-107) mmol/L BUN (7-17) mg/dL Creatinine (0.52-1.04) mg/dL Glucose (74-99) mg/dL POC Glucose (mg/dL) 160 H 146 H (70-110) mg/dL Calcium (8.4-10.2) mg/dL C-Reactive Protein (<1.0) mg/dL Procalcitonin 1.21 H (0.02-0.09) ng/mL 03/21/22 03/21/22 03/21/22 Range/Units 07:33 07:33 11:39 WBC 15.3 H (3.8-10.6) k/uL RBC 2.93 L (3.80-5.40) m/uL Hgb 8.2 L (11.4-16.0) gm/dL Hct 25.9 L (34.0-46.0) % Neutrophils # 11.2 H (1.3-7.7) k/uL Chloride 108 H (98-107) mmol/L BUN 43 H (7-17) mg/dL Creatinine 2.68 H (0.52-1.04) mg/dL Glucose 158 H (74-99) mg/dL POC Glucose (mg/dL) 197 H (70-110) mg/dL Calcium 7.5 L (8.4-10.2) mg/dL C-Reactive Protein (<1.0) mg/dL Procalcitonin (0.02-0.09) ng/mL Microbiology - Last 24 Hours (Table) 03/19/22 16:12 Urine Culture - Preliminary Urine,Catheterized Gram Neg Bacilli Assessment and Plan (1) Urinary tract bacterial infections Current Visit: Yes Status: Acute Code(s): N39.0 - URINARY TRACT INFECTION, SITE NOT SPECIFIED; A49.9 - BACTERIAL INFECTION, UNSPECIFIED SNOMED Code(s): 749107147 Plan: 1patient with a fever in this patient presented to the hospital after a fall with left femoral fracture s/p operative repair patient did have a positive UA concerning for a UTI with last urine culture done did grew out drug-resistant Klebsiella 2patient did have elevated CRP and procalcitonin. 3we will continue the patient on cefepime while waiting for the cultures to finalize Time with Patient: Less than 30
--- NOTE | 2022-03-23 16:19 | P.PN ---
Subjective Progress Note Date: 03/22/22 Principal diagnosis: Fever and urinary tract infection Patient is a 56-year-old female initially presenting to the hospital after the patient did have a fall patient did have a pain to the left leg area and she was noticed to have a nondisplaced subtrochanteric femoral fracture in this patient was status post surgical repair of the fracture patient noticed to have a fever and elevated white count and positive UA concerning for UTI. On today's evaluation that is 03/22/2022 the patient remains to be afebrile, the patient is breathing comfortably on a 4 L nasal cannula the patient denies chest pain, the patient did have occasional cough no nausea no vomiting no ab dominal pain or diarrhea pain to the hip pain is currently controlled, Objective - Vital Signs Vital signs: Vital Signs Temp 97.2 F L 03/22/22 12:00 Pulse 111 H 03/22/22 12:00 Resp 19 03/22/22 12:00 BP 152/81 03/22/22 12:00 Pulse Ox 96 03/22/22 12:00 FiO2 Intake & Output 03/21/22 03/22/22 03/22/22 18:59 06:59 18:59 Intake Total 0 Output Total 500 350 Balance -500 -350 Intake: Oral 0 Output: Urine 500 350 Other: Voiding Method External Catheter External Catheter # Voids 2 - Exam GENERAL DESCRIPTION: Middle-age female lying in bed in no distress RESPIRATORY SYSTEM: Unlabored breathing , decreased breath sounds at bases HEART: S1 S2 regular rate and rhythm , ABDOMEN: Soft , no tenderness EXTREMITIES: No edema feet - Labs CBC & Chem 7: 03/23/22 09:00 03/23/22 09:00 Labs: Abnormal Lab Results - Last 24 Hours (Table) 03/21/22 03/21/22 03/22/22 Range/Units 16:13 19:51 06:07 WBC (3.8-10.6) k/uL RBC (3.80-5.40) m/uL Hgb (11.4-16.0) gm/dL Hct (34.0-46.0) % Neutrophils # (1.3-7.7) k/uL Potassium (3.5-5.1) mmol/L Carbon Dioxide (22-30) mmol/L BUN (7-17) mg/dL Creatinine (0.52-1.04) mg/dL Glucose (74-99) mg/dL POC Glucose (mg/dL) 264 H 224 H 166 H (70-110) mg/dL Calcium (8.4-10.2) mg/dL 03/22/22 03/22/22 03/22/22 Range/Units 08:12 08:12 11:57 WBC 18.1 H (3.8-10.6) k/uL RBC 3.08 L (3.80-5.40) m/uL Hgb 8.5 L (11.4-16.0) gm/dL Hct 27.2 L (34.0-46.0) % Neutrophils # 14.2 H (1.3-7.7) k/uL Potassium 5.2 H (3.5-5.1) mmol/L Carbon Dioxide 20 L (22-30) mmol/L BUN 52 H (7-17) mg/dL Creatinine 2.96 H (0.52-1.04) mg/dL Glucose 144 H (74-99) mg/dL POC Glucose (mg/dL) 196 H (70-110) mg/dL Calcium 8.3 L (8.4-10.2) mg/dL Microbiology - Last 24 Hours (Table) 03/20/22 21:10 Blood Culture - Preliminary Blood No Growth after 24 hours 03/20/22 17:53 Blood Culture - Preliminary Blood No Growth after 24 hours 03/19/22 16:12 Urine Culture - Preliminary Urine,Catheterized Gram Neg Bacilli Yeast species Assessment and Plan (1) Urinary tract bacterial infections Current Visit: Yes Status: Acute Code(s): N39.0 - URINARY TRACT INFECTION, SITE NOT SPECIFIED; A49.9 - BACTERIAL INFECTION, UNSPECIFIED SNOMED Code(s): 783563478 Plan: 1patient with a fever in this patient presented to the hospital after a fall with left femoral fracture s/p operative repair patient did have a positive UA concerning for a UTI with last urine culture done did grew out drug-resistant Klebsiella 2patient did have elevated CRP and procalcitonin. 3the patient urine did grow drug-resistant Klebsiella sensitive to cefepime also showing Shelly keeping in mind the patient did have elevated white count we will add Diflucan to the cefepime and monitor clinical course closely Time with Patient: Less than 30
--- NOTE | 2022-03-23 16:20 | P.PN ---
Subjective Progress Note Date: 03/23/22 Principal diagnosis: Fever and urinary tract infection Patient is a 56-year-old female initially presenting to the hospital after the patient did have a fall patient did have a pain to the left leg area and she was noticed to have a nondisplaced subtrochanteric femoral fracture in this patient was status post surgical repair of the fracture patient noticed to have a fever and elevated white count and positive UA concerning for UTI. On today's evaluation that is 03/23/2022 the patient continues to be afebrile, the patient is breathing comfortably on a 4 L nasal cannula the patient denies chest pain, the patient did have occasional cough but not bringing up any s putum, the patient denies nausea no vomiting no abdominal pain or diarrhea pain to the hip pain is currently controlled, Objective - Vital Signs Vital signs: Vital Signs Temp 97.5 F L 03/23/22 08:00 Pulse 73 03/23/22 12:00 Resp 18 03/23/22 14:00 BP 135/72 03/23/22 12:00 Pulse Ox 100 03/23/22 12:00 FiO2 Intake & Output 03/22/22 03/23/22 03/23/22 18:59 06:59 18:59 Intake Total 118 Output Total 450 Balance -450 118 Weight 139.5 kg Intake: Oral 118 Output: Urine 450 Other: Voiding Method External Catheter # Bowel Movements 1 1 - Exam GENERAL DESCRIPTION: Middle-age female lying in bed in no distress RESPIRATORY SYSTEM: Unlabored breathing , decreased breath sounds at bases HEART: S1 S2 regular rate and rhythm , ABDOMEN: Soft , no tenderness EXTREMITIES: No edema feet - Labs CBC & Chem 7: 03/23/22 09:00 03/23/22 09:00 Labs: Abnormal Lab Results - Last 24 Hours (Table) 03/22/22 03/22/22 03/23/22 Range/Units 16:37 19:57 06:00 WBC (3.8-10.6) k/uL RBC (3.80-5.40) m/uL Hgb (11.4-16.0) gm/dL Hct (34.0-46.0) % MCHC (31.0-37.0) g/dL Neutrophils # (1.3-7.7) k/uL Potassium (3.5-5.1) mmol/L Carbon Dioxide (22-30) mmol/L BUN (7-17) mg/dL Creatinine (0.52-1.04) mg/dL Glucose (74-99) mg/dL POC Glucose (mg/dL) 236 H 267 H 256 H (70-110) mg/dL C-Reactive Protein (<1.0) mg/dL 03/23/22 03/23/22 03/23/22 Range/Units 09:00 09:00 11:45 WBC 16.1 H (3.8-10.6) k/uL RBC 3.18 L (3.80-5.40) m/uL Hgb 8.8 L (11.4-16.0) gm/dL Hct 28.7 L (34.0-46.0) % MCHC 30.6 L (31.0-37.0) g/dL Neutrophils # 13.3 H (1.3-7.7) k/uL Potassium 5.2 H (3.5-5.1) mmol/L Carbon Dioxide 19 L (22-30) mmol/L BUN 55 H (7-17) mg/dL Creatinine 2.57 H (0.52-1.04) mg/dL Glucose 253 H (74-99) mg/dL POC Glucose (mg/dL) 261 H (70-110) mg/dL C-Reactive Protein 8.1 H (<1.0) mg/dL Microbiology - Last 24 Hours (Table) 03/20/22 21:10 Blood Culture - Preliminary Blood No Growth after 48 hours 03/20/22 17:53 Blood Culture - Preliminary Blood No Growth after 48 hours 03/19/22 16:12 Urine Culture - Final Urine,Catheterized Klebsiella pneumoniae Shelly glabrata Assessment and Plan (1) Urinary tract bacterial infections Current Visit: Yes Status: Acute Code(s): N39.0 - URINARY TRACT INFECTION, SITE NOT SPECIFIED; A49.9 - BACTERIAL INFECTION, UNSPECIFIED SNOMED Code(s): 531840345 Plan: 1patient with a fever in this patient presented to the hospital after a fall with left femoral fracture s/p operative repair patient did have a positive UA concerning for a UTI with last urine culture done did grew out drug-resistant Klebsiella 2patient did have elevated CRP and procalcitonin. 3the patient urine did grow drug-resistant Klebsiella sensitive to cefepime and is also growing Shelly glabrata the patient white count count did came down with the addition of Diflucan yesterday hence we will continue Diflucan and cefepime and watch her white count closely as well as clinical response Time with Patient: Less than 30
[2022-03-23 16:34] LABS: Glucose,Whole Blood 274 mg/dL (70-110)
[2022-03-23] MEDS: LORazepam 1 MG TAB PO PRN (18:11)
[2022-03-23 20:06] LABS: Glucose,Whole Blood 254 mg/dL (70-110)
[2022-03-23] MEDS: PRIMIDONE 50 MG TAB PO SCH (20:38)
[2022-03-23] MEDS: SENNOSIDES-DOCUSATE SODIUM 1 EACH TAB PO SCH (20:38)
[2022-03-23] MEDS: FENOFIBRATE 160 MG TAB PO SCH (20:38)
[2022-03-23] MEDS: ATORVASTATIN 10 MG TAB PO SCH (20:38)
[2022-03-24] MEDS: LORazepam 1 MG TAB PO PRN ×3 (00:01→21:54)
[2022-03-24] MEDS: SODIUM CHLORIDE 0.9% 1,000 ML IV SCH ×2 (00:01→21:46)
[2022-03-24 04:32] LABS: Calcium 8.1 mg/dL (8.4-10.2); Magnesium 1.9 mg/dL (1.6-2.3); Potassium 4.8 mmol/L (3.5-5.1)
[2022-03-24] MEDS: CEFEPIME 1 GM in SODIUM CHLORIDE 0.9% 50 ML IVPB SCH ×2 (05:16→17:31)
[2022-03-24] MEDS: HYDROcodone/APAP 5-325MG 1 EACH TAB PO PRN ×2 (05:22→21:53)
[2022-03-24 06:02] LABS: Glucose,Whole Blood 235 mg/dL (70-110)
[2022-03-24] MEDS: MIDODRINE 5 MG TAB PO SCH ×3 (06:36→17:32)
[2022-03-24] MEDS: INSULIN ASPART (NovoLOG) 100 UNIT/ML VIAL SQ SCH ×7 (06:40→21:37)
[2022-03-24] MEDS: PANTOPRAZOLE 40 MG TABLET PO SCH ×2 (06:40→17:30)
[2022-03-24] MEDS: INSULIN DETEMIR (LEVEMIR) 100 UNIT/ML SYR SQ SCH ×2 (06:40→21:38)
[2022-03-24] MEDS: SYMBICORT 160-4.5 MCG INHALER INHALATION SCH ×2 (08:50→20:40)
[2022-03-24] MEDS: SODIUM ZIRCONIUM CYCLOSILICATE 10 GM PACKET PO SCH (09:50)
[2022-03-24] MEDS: GABAPENTIN 300 MG CAP PO SCH ×2 (09:50→21:39)
[2022-03-24] MEDS: HEPARIN SODIUM,PORCINE/PF 5,000 UNIT/0.5 ML SYRINGE SQ SCH ×2 (09:50→21:39)
[2022-03-24] MEDS: SODIUM BICARBONATE TAB 650 MG TAB PO SCH ×3 (09:51→21:38)
[2022-03-24] MEDS: HYDROCORTISONE SUCCINATE 100 MG/2 ML VIAL IV SCH ×2 (09:51→21:39)
[2022-03-24] MEDS: ASPIRIN 81 MG PO SCH ×2 (09:51→21:38)
[2022-03-24] MEDS: FLUCONAZOLE 100 MG TAB PO SCH (09:51)
[2022-03-24] MEDS: HYDROXYCHLOROQUINE SULFATE 200 MG TAB PO SCH ×2 (09:51→21:39)
[2022-03-24] MEDS: METOPROLOL SUCCINATE (ER) 25 MG TAB.ER.24H PO SCH (09:51)
[2022-03-24] MEDS: FLUoxetine HCL 20 MG CAP PO SCH ×2 (09:51→21:38)
[2022-03-24] MEDS: allopurinoL 100 MG TAB PO SCH ×2 (09:51→21:38)
[2022-03-24] MEDS: MONTELUKAST 10 MG TAB PO SCH (09:51)
--- NOTE | 2022-03-24 10:24 | P.PN ---
Subjective Patient is seen in follow-up for acute kidney injury on chronic kidney disease. Renal function a little worse today. Resting in bed. Denies chest pain or shortness of breath. Blood pressure stable. On nasal cannula. No vomiting or diarrhea. Vital signs are stable. General: Awake. No acute distress. HEENT: Head exam is unremarkable. On nasal cannula. LUNGS: Breath sounds decreased. HEART: Rate and Rhythm are regular. ABDOMEN: Soft, no distention. EXTREMITITES: No edema. Objective - Vital Signs Vital signs: Vital Signs Temp 97.4 F L 03/24/22 08:00 Pulse 72 03/24/22 08:00 Resp 18 03/24/22 08:00 BP 107/55 03/24/22 08:00 Pulse Ox 99 03/24/22 08:00 FiO2 Intake & Output 03/23/22 03/24/22 03/24/22 18:59 06:59 18:59 Intake Total 358 Balance 358 Intake: Oral 358 Other: Voiding Method External Catheter # Bowel Movements 1 - Labs CBC & Chem 7: 03/23/22 09:00 03/24/22 03:38 Labs: Abnormal Lab Results - Last 24 Hours (Table) 03/23/22 03/23/22 03/23/22 Range/Units 11:45 16:32 20:04 BUN (7-17) mg/dL Creatinine (0.52-1.04) mg/dL Glucose (74-99) mg/dL POC Glucose (mg/dL) 261 H 274 H 254 H (70-110) mg/dL Calcium (8.4-10.2) mg/dL 03/24/22 03/24/22 Range/Units 03:38 06:00 BUN 56 H (7-17) mg/dL Creatinine 2.71 H (0.52-1.04) mg/dL Glucose 242 H (74-99) mg/dL POC Glucose (mg/dL) 235 H (70-110) mg/dL Calcium 8.1 L (8.4-10.2) mg/dL Microbiology - Last 24 Hours (Table) 03/20/22 21:10 Blood Culture - Preliminary Blood No Growth after 72 hours 03/20/22 17:53 Blood Culture - Preliminary Blood No Growth after 72 hours Assessment and Plan Plan: Assessment: 1. Acute kidney injury mostly prerenal secondary to hypovolemia from severe hyperglycemia. Further worsened due to severe hypotension with blood pressure in the systolic 70s. Creatinine 2.71 today. No hydronephrosis noted on kidney ultrasound although right kidney was not visualized. 2. Chronic kidney disease stage IIIB secondary to diabetic kidney disease. Baseline creatinine near 1.5. 3. History of lupus maintained on Plaquenil. Patient's UA from 02/14/2022 showed only 1 RBC. 4. Klebsiella UTI. On antibiotics. ID following. 5. Diabetes mellitus. Uncontrolled on admission. 6. Left femur fracture status post surgical repair 03/18/2022. 7. Hyperkalemia secondary to acute kidney injury, hyperglycemia and acidosis. Improved. 8. Endometrial cancer being followed by oncology outpatient. 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 9. Metabolic acidosis secondary to acute kidney injury and IV fluids. On oral bicarbonate. Improved. 10. Anemia of chronic kidney disease. Rule out iron deficiency. Plan: Maintain normal saline. Maintain IV steroids - change to oral tomorrow. Continue to hold diuretics. Avoid nephrotoxins. Blood sugar control. Strict is and os. Maintain midodrine. Hold for systolic blood pressure greater than 110. Maintain lokelma. Check iron studies.
[2022-03-24] MEDS: ALBUTEROL NEBULIZED 2.5 MG/3 ML INHALATION PRN ×2 (11:22→20:40)
[2022-03-24 12:06] LABS: Glucose,Whole Blood 166 mg/dL (70-110)
--- NOTE | 2022-03-24 15:53 | P.PN ---
Subjective Progress Note Date: 03/24/22 Principal diagnosis: Fever and urinary tract infection Patient is a 56-year-old female initially presenting to the hospital after the patient did have a fall patient did have a pain to the left leg area and she was noticed to have a nondisplaced subtrochanteric femoral fracture in this patient was status post surgical repair of the fracture patient noticed to have a fever and elevated white count and positive UA concerning for UTI. On today's evaluation that is 03/24/2022 the patient remains to be afebrile, the patient is breathing comfortably on a 4 L nasal cannula , the patient denies chest pain, the patient did have occasional dry cough , the patient denies nausea no vomiting no abdominal pain or diarrhea pain to the hip pain is currently controlled, Objective - Vital Signs Vital signs: Vital Signs Temp 97.4 F L 03/24/22 08:00 Pulse 86 03/24/22 11:34 Resp 18 03/24/22 08:00 BP 107/55 03/24/22 08:00 Pulse Ox 99 03/24/22 08:00 FiO2 Intake & Output 03/23/22 03/24/22 03/24/22 18:59 06:59 18:59 Intake Total 358 Balance 358 Intake: Oral 358 Other: Voiding Method External Catheter # Bowel Movements 1 - Exam GENERAL DESCRIPTION: Middle-age female lying in bed in no distress RESPIRATORY SYSTEM: Unlabored breathing , decreased breath sounds at bases HEART: S1 S2 regular rate and rhythm , ABDOMEN: Soft , no tenderness EXTREMITIES: No edema feet - Labs CBC & Chem 7: 03/23/22 09:00 03/24/22 03:38 Labs: Abnormal Lab Results - Last 24 Hours (Table) 03/23/22 03/23/22 03/24/22 Range/Units 16:32 20:04 03:38 BUN 56 H (7-17) mg/dL Creatinine 2.71 H (0.52-1.04) mg/dL Glucose 242 H (74-99) mg/dL POC Glucose (mg/dL) 274 H 254 H (70-110) mg/dL Calcium 8.1 L (8.4-10.2) mg/dL 03/24/22 03/24/22 Range/Units 06:00 11:44 BUN (7-17) mg/dL Creatinine (0.52-1.04) mg/dL Glucose (74-99) mg/dL POC Glucose (mg/dL) 235 H 166 H (70-110) mg/dL Calcium (8.4-10.2) mg/dL Microbiology - Last 24 Hours (Table) 03/20/22 21:10 Blood Culture - Preliminary Blood No Growth after 72 hours 03/20/22 17:53 Blood Culture - Preliminary Blood No Growth after 72 hours Assessment and Plan (1) Urinary tract bacterial infections Current Visit: Yes Status: Acute Code(s): N39.0 - URINARY TRACT INFECTION, SITE NOT SPECIFIED; A49.9 - BACTERIAL INFECTION, UNSPECIFIED SNOMED Code(s): 199373288 Plan: 1patient with a fever in this patient presented to the hospital after a fall with left femoral fracture s/p operative repair patient did have a positive UA concerning for a UTI with last urine culture done did grew out drug-resistant Klebsiella 2patient did have elevated CRP and procalcitonin. 3the patient urine did grow drug-resistant Klebsiella sensitive to cefepime and is also growing Shelly glabrata the patient white count count did came down with the addition of Diflucan, however no CBC was done today, we will continue Diflucan and cefepime and check a CBC and a CRP with a.m. labs Time with Patient: Less than 30
[2022-03-24 17:03] LABS: Glucose,Whole Blood 191 mg/dL (70-110)
[2022-03-24 17:24] LABS: % Iron Saturation 13.14 (12.00-45.00)
--- NOTE | 2022-03-24 17:58 | P.PN ---
Subjective Progress Note Date: 03/24/22 56-year-old lady with past medical history significant for insulin-dependent diabetes mellitus, hypertension, hyperlipidemia presented to the ER because of fall. Patient was all right yesterday evening when while she was watching TV and trying to get out of her couch she lost her balance and fell on her buttocks. She didn't lose any consciousness. Patient denied any seizure-like activity. Patient had no prior episode of any bone. Patient did not hit her head. Because of this fall patient came to the ER. In the ER, initial lab work showed patient to have a white count of 13.6, hemoglobin of 10.7, sodium 134, potassium 6, anion gap 10, creatinine 1.69, initial glucose was elevated at 75. X-ray of left hip and pelvis are negative for any fractures. Patient was admitted for further evaluation and treatment 03/24/2022 Patient is seen and evaluated in room at bedside; no specific complaints reported patient remains to be afebrile, the patient is breathing comfortably on a 4 L nasal cannula , the patient denies chest pain, the patient did have occasional dry cough , the patient denies nausea no vomiting no abdominal pain or diarrhea pain to the hip pain is currently controlled patient with a fever in this patient presented to the hospital after a fall with left femoral fracture s/p operative repair patient did have a positive UA concerning for a UTI with last urine culture done did grew out drug-resistant Klebsiella patient did have elevated CRP and procalcitonin. the patient urine did grow drug-resistant Klebsiella sensitive to cefepime and is also growing Shelly glabrata the patient white count count did came down with the addition of Diflucan, however no CBC was done today, we will continue Diflucan and cefepime and check a CBC and a CRP with a.m. labs Objective - Vital Signs Vital signs: Vital Signs Temp 97.4 F L 03/24/22 08:00 Pulse 86 03/24/22 11:34 Resp 18 03/24/22 08:00 BP 107/55 03/24/22 08:00 Pulse Ox 99 03/24/22 08:00 FiO2 Intake & Output 03/23/22 03/24/22 03/24/22 18:59 06:59 18:59 Intake Total 358 Balance 358 Intake: Oral 358 Other: Voiding Method External Catheter # Bowel Movements 1 - Exam -GENERAL: The patient is alert and oriented x3, not in any acute distress. Morbidly obese HEENT: Pupils are round and equally reacting to light. EOMI. No scleral icterus. No conjunctival pallor. Normocephalic, atraumatic. No pharyngeal erythema. No thyromegaly. CARDIOVASCULAR: S1 and S2 present. No murmurs, rubs, or gallops. PULMONARY: Chest is clear to auscultation, no wheezing or crackles. ABDOMEN: Soft, nontender, nondistended, normoactive bowel sounds. No palpable organomegaly. -MUSCULOSKELETAL: No joint swelling or deformity. Left hip surgical wound with dressing in place. Exam is deferred to surgery team EXTREMITIES: No cyanosis, clubbing, or pedal edema. NEUROLOGICAL: Gross neurological examination did not reveal any focal deficits. SKIN: No rashes. no petechiae. - Labs CBC & Chem 7: 03/23/22 09:00 03/24/22 03:38 Labs: Abnormal Lab Results - Last 24 Hours (Table) 03/23/22 03/23/22 03/24/22 Range/Units 16:32 20:04 03:38 BUN 56 H (7-17) mg/dL Creatinine 2.71 H (0.52-1.04) mg/dL Glucose 242 H (74-99) mg/dL POC Glucose (mg/dL) 274 H 254 H (70-110) mg/dL Calcium 8.1 L (8.4-10.2) mg/dL 03/24/22 03/24/22 Range/Units 06:00 11:44 BUN (7-17) mg/dL Creatinine (0.52-1.04) mg/dL Glucose (74-99) mg/dL POC Glucose (mg/dL) 235 H 166 H (70-110) mg/dL Calcium (8.4-10.2) mg/dL Microbiology - Last 24 Hours (Table) 03/20/22 21:10 Blood Culture - Preliminary Blood No Growth after 72 hours 03/20/22 17:53 Blood Culture - Preliminary Blood No Growth after 72 hours Assessment and Plan Assessment: Fall without losing consciousness but associated with lightheadedness and dizziness, most likely secondary to dehydration Left hip fracture with the plan for hip surgery by orthopedic team. Status post operative fixation of the left subtrochanteric femur fracture with medullary nail Mild vaginal bleeding Acute kidney injury with hyperkalemia Diabetes mellitus with hyperglycemia, present on admission Severe dehydration with acute kidney injury present on admission, secondary to above Acute kidney injury Chronic hypoxic respiratory failure Asthma, not acute event History of recurrent pneumonia History of lupus on treatment Morbid obesity Plan: Continue with orthopedic team recommendation. We will check ultrasound of the leg and if it is negative then we will ask orthopedic team to address her DVT prophylaxis. Continue with intravenous hydration Continue with antibiotic and follow-up culture Gynecological consult (signed off) Consult ID team Orthopedic primary team following the patient closely Continue with Levemir 17 units and NovoLog 18 units with meals and insulin sliding scale. Sugars currently well-controlled Monitor hemoglobin Consult pulmonary team on the case Labs and medication were reviewed.. Continue same treatment. Continue with symptomatic treatment. Resume home medication. Monitor labs and vitals. DVT and GI prophylaxis. Further recommendations as per clinical course of the patient DVT prophylaxis: Currently on aspirin GI Prophylaxis: Pepcid PT/OT: Pending
[2022-03-24 20:54] LABS: Glucose,Whole Blood 213 mg/dL (70-110)
[2022-03-24] MEDS: FENOFIBRATE 160 MG TAB PO SCH (21:38)
[2022-03-24] MEDS: PRIMIDONE 50 MG TAB PO SCH (21:38)
[2022-03-24] MEDS: ATORVASTATIN 10 MG TAB PO SCH (21:38)
[2022-03-24] MEDS: SENNOSIDES-DOCUSATE SODIUM 1 EACH TAB PO SCH (21:46)
[2022-03-25] MEDS: PANTOPRAZOLE 40 MG TABLET PO SCH ×2 (05:51→17:18)
[2022-03-25] MEDS: CEFEPIME 1 GM in SODIUM CHLORIDE 0.9% 50 ML IVPB SCH ×2 (05:51→17:19)
[2022-03-25 06:28] LABS: Glucose,Whole Blood 214 mg/dL (70-110)
[2022-03-25] MEDS: MIDODRINE 5 MG TAB PO SCH ×4 (06:43→17:18)
[2022-03-25] MEDS: INSULIN DETEMIR (LEVEMIR) 100 UNIT/ML SYR SQ SCH ×2 (06:45→21:06)
[2022-03-25] MEDS: INSULIN ASPART (NovoLOG) 100 UNIT/ML VIAL SQ SCH ×7 (06:45→21:06)
[2022-03-25 07:58] LABS: Basophils # (A) 0.1 k/uL (0-0.2); Basophils % (A) 1 %; Eosinophils # (A) 0.4 k/uL (0-0.7); Eosinophils % (A) 2 %; HCT 28.4 % (34.0-46.0); HGB 8.7 gm/dL (11.4-16.0); Hypochromasia Marked; Lymphocytes # (A) 2.9 k/uL (1.0-4.8); Lymphocytes % (A) 15 %; MCH 27.5 pg (25.0-35.0); MCHC 30.6 g/dL (31.0-37.0); MCV 89.8 fL (80.0-100.0); Mean Platelet Volume 8.8; Monocytes # (A) 1.1 k/uL (0-1.0); Monocytes % (A) 6 %; Neutrophils # (A) 14.2 k/uL (1.3-7.7); Neutrophils % (A) 75 %; Platelet Count 360 k/uL (150-450); RBC 3.16 m/uL (3.80-5.40); RDW 15.1 % (11.5-15.5); WBC 18.9 k/uL (3.8-10.6)
[2022-03-25 08:09] LABS: Calcium 8.2 mg/dL (8.4-10.2)
[2022-03-25 08:10] LABS: Potassium 5.6 mmol/L (3.5-5.1)
[2022-03-25] MEDS: SYMBICORT 160-4.5 MCG INHALER INHALATION SCH ×2 (08:43→21:07)
[2022-03-25] MEDS: HYDROCORTISONE SUCCINATE 100 MG/2 ML VIAL IV SCH (09:13)
[2022-03-25] MEDS: HEPARIN SODIUM,PORCINE/PF 5,000 UNIT/0.5 ML SYRINGE SQ SCH ×2 (09:14→21:06)
[2022-03-25] MEDS: SODIUM ZIRCONIUM CYCLOSILICATE 10 GM PACKET PO SCH (09:14)
[2022-03-25] MEDS: METOPROLOL SUCCINATE (ER) 25 MG TAB.ER.24H PO SCH (09:14)
[2022-03-25] MEDS: FLUCONAZOLE 100 MG TAB PO SCH (09:14)
[2022-03-25] MEDS: ASPIRIN 81 MG PO SCH ×2 (09:14→21:04)
[2022-03-25] MEDS: HYDROXYCHLOROQUINE SULFATE 200 MG TAB PO SCH ×2 (09:14→21:05)
[2022-03-25] MEDS: GABAPENTIN 300 MG CAP PO SCH ×2 (09:15→21:04)
[2022-03-25] MEDS: MONTELUKAST 10 MG TAB PO SCH (09:15)
[2022-03-25] MEDS: SODIUM BICARBONATE TAB 650 MG TAB PO SCH ×3 (09:15→21:04)
[2022-03-25] MEDS: FLUoxetine HCL 20 MG CAP PO SCH ×2 (09:15→21:04)
[2022-03-25] MEDS: allopurinoL 100 MG TAB PO SCH ×2 (09:15→21:04)
[2022-03-25] MEDS: HYDROcodone/APAP 5-325MG 1 EACH TAB PO PRN ×2 (09:24→17:42)
[2022-03-25] MEDS: LORazepam 1 MG TAB PO PRN ×2 (09:24→21:04)
--- NOTE | 2022-03-25 10:05 | CDI ---
Documentation Clarification Form Date: 03/22/2022 03:06:39 PM From: Bettina Damico RN CCDS Admit Date: 03/20/2022 09:24:00 AM Patient Name: Tamela Diaz Visit Number: [id number] Discharge Date: ATTENTION: The Clinical Documentation Specialists (CDI) and [facility] Coding Staff appreciate your assistance in clarifying documentation. Please respond to the clarification below the line at the bottom and electronically sign. The CDI & [facility] Coding staff will review the response and follow-up if needed. Please note: Queries are made part of the Legal Health Record. If you have any questions, please contact the author of this message via ITS. Dr. Yakov Hodge Transient Postoperative Hypotension is documented in the 03/22, [employer] note. Additional clarification regarding this diagnosis is requested. History/Risk Factors: 56-year-old female presents to the ED after a fall on her buttocks with left hip fracture. Medical History: CKD 3b, DM2, RA, 4L nasal cannula chronic respiratory failure and Endometrial cancer. Clinical Indicators: VS: 03/19 11:40 B/P 81/43; HR 107; Temp 97.6 F Oral; RR 16; SpO2 100% 4L nasal cannula 03/19 18:46 B/P 73/42; HR 100; Temp 97.6 F Oral; RR 16; SpO2 95% 4L nasal cannula 03/20 00:00 B/P 74/45; HR 97; Temp 98.1 F Oral; RR 16; SpO2 95% 4L nasal cannula 03/20 16:00 B/P 98/64; HR 96; Temp 97.6 F Oral; RR 17; SpO2 94% 4L nasal cannula LABS: 03/17 10.7; 03/18 9.7; 03/19 8.9; 03/20 8.8; 03/21 8.2 Procedure, 03/18: Fixation of left subtrochanteric femur fracture with long cephalon-medullary nail. Estimated blood loss 200. Gynecology consult, 03/19: Postmenopausal bleeding; While in OR, a significant amount of vaginal bleeding was noted. Patient will continue to have vaginal bleeding off and on until she undergoes treatment with Radiation Oncology. Transfuse 1unit for Hgb below 7. Treatment: Daily CBC; 03/19 - 03/19 Midodrine 5mg PO AC TID (one dose administered) 03/20 03/22 Midodrine 10mg PO AC TID; 03/17 0.9NS 1.5 L IV bolus; 03/18 0.9NS 75cc/hr; 03/18 0.9NS 800cc IV; 0.9NS 100cc IV; 01/17 0.9NS 1.5L IV bolus. Can the Transient postoperative hypotension be further specified? [ ] Hypotension secondary to acute blood loss anemia [ ] Hypotension secondary to procedure [ ] Hypotension due to other etiology (please specify) [ ] Other Condition, please specify [ x] Unable to determine (Template Last Revised: June 2020) MTDD
[2022-03-25 11:28] LABS: Glucose,Whole Blood 202 mg/dL (70-110)
--- NOTE | 2022-03-25 11:37 | P.PN ---
Subjective Patient is seen in follow-up for acute kidney injury on chronic kidney disease. Renal function better today. Resting in bed. Denies chest pain or shortness of breath. Blood pressure stable. On nasal cannula. No vomiting or diarrhea. Complaining of swelling of right upper extremity. Vital signs are stable. General: Awake. No acute distress. HEENT: Head exam is unremarkable. On nasal cannula. LUNGS: Breath sounds decreased. HEART: Rate and Rhythm are regular. ABDOMEN: Soft, no distention. EXTREMITITES: No edema. Objective - Vital Signs Vital signs: Vital Signs Temp 97.5 F L 03/25/22 08:00 Pulse 91 03/25/22 08:00 Resp 18 03/25/22 08:00 BP 138/72 03/25/22 08:00 Pulse Ox 95 03/25/22 08:44 FiO2 Intake & Output 03/24/22 03/25/22 03/25/22 18:59 06:59 18:59 Intake Total 200 Output Total 300 Balance 200 -300 Intake: Oral 200 Output: Urine 300 Other: Voiding Method External Catheter # Voids 2 # Bowel Movements 0 - Labs CBC & Chem 7: 03/25/22 07:14 03/25/22 07:14 Labs: Abnormal Lab Results - Last 24 Hours (Table) 03/24/22 03/24/22 03/24/22 Range/Units 03:38 11:44 17:00 WBC (3.8-10.6) k/uL RBC (3.80-5.40) m/uL Hgb (11.4-16.0) gm/dL Hct (34.0-46.0) % MCHC (31.0-37.0) g/dL Neutrophils # (1.3-7.7) k/uL Monocytes # (0-1.0) k/uL Potassium (3.5-5.1) mmol/L BUN (7-17) mg/dL Creatinine (0.52-1.04) mg/dL Glucose (74-99) mg/dL POC Glucose (mg/dL) 166 H 191 H (70-110) mg/dL Calcium (8.4-10.2) mg/dL Iron 38 L (50-170) ug/dL C-Reactive Protein (<1.0) mg/dL 03/24/22 03/25/22 03/25/22 Range/Units 20:52 06:22 07:14 WBC 18.9 H (3.8-10.6) k/uL RBC 3.16 L (3.80-5.40) m/uL Hgb 8.7 L (11.4-16.0) gm/dL Hct 28.4 L (34.0-46.0) % MCHC 30.6 L (31.0-37.0) g/dL Neutrophils # 14.2 H (1.3-7.7) k/uL Monocytes # 1.1 H (0-1.0) k/uL Potassium (3.5-5.1) mmol/L BUN (7-17) mg/dL Creatinine (0.52-1.04) mg/dL Glucose (74-99) mg/dL POC Glucose (mg/dL) 213 H 214 H (70-110) mg/dL Calcium (8.4-10.2) mg/dL Iron (50-170) ug/dL C-Reactive Protein (<1.0) mg/dL 03/25/22 03/25/22 Range/Units 07:14 11:27 WBC (3.8-10.6) k/uL RBC (3.80-5.40) m/uL Hgb (11.4-16.0) gm/dL Hct (34.0-46.0) % MCHC (31.0-37.0) g/dL Neutrophils # (1.3-7.7) k/uL Monocytes # (0-1.0) k/uL Potassium 5.6 H (3.5-5.1) mmol/L BUN 61 H (7-17) mg/dL Creatinine 2.31 H (0.52-1.04) mg/dL Glucose 192 H (74-99) mg/dL POC Glucose (mg/dL) 202 H (70-110) mg/dL Calcium 8.2 L (8.4-10.2) mg/dL Iron (50-170) ug/dL C-Reactive Protein 4.0 H (<1.0) mg/dL Microbiology - Last 24 Hours (Table) 03/20/22 21:10 Blood Culture - Preliminary Blood No Growth after 96 hours 03/20/22 17:53 Blood Culture - Preliminary Blood No Growth after 96 hours Assessment and Plan Plan: Assessment: 1. Acute kidney injury mostly prerenal secondary to hypovolemia from severe hyperglycemia. Further worsened due to severe hypotension with blood pressure in the systolic 70s. Creatinine 2.31 today. No hydronephrosis noted on kidney ultrasound although right kidney was not visualized. 2. Chronic kidney disease stage IIIB secondary to diabetic kidney disease. Baseline creatinine near 1.5. 3. History of lupus maintained on Plaquenil. Patient's UA from 02/14/2022 s howed only 1 RBC. 4. Klebsiella UTI. On antibiotics. ID following. 5. Diabetes mellitus. Uncontrolled on admission. 6. Left femur fracture status post surgical repair 03/18/2022. 7. Hyperkalemia secondary to acute kidney injury, hyperglycemia and acidosis. Improved. This morning's sample was hemolyzed. 8. Endometrial cancer being followed by oncology outpatient. Seen by og/sheet rock sander this admission. 9. Metabolic acidosis secondary to acute kidney injury and IV fluids. On oral bicarbonate. 10. Anemia of chronic kidney disease. Iron deficiency noted. Plan: Hep-Lock IV fluids. Change IV steroids to oral. Avoid nephrotoxins. Blood sugar control. Strict is and os. Maintain midodrine. Hold for systolic blood pressure greater than 110. Maintain lokelma. Add IV iron. Advised to follow up outpatient 1 week post discharge.
--- NOTE | 2022-03-25 12:05 | XR ---
EXAMINATION TYPE: XR chest 1V portable DATE OF EXAM: 03/25/2022 COMPARISON: 03/17/2022 HISTORY: Shortness of breath TECHNIQUE: Single frontal view of the chest is obtained. FINDINGS: Heart is enlarged and there is right lower lobe infiltrate. Rotation of the patient limits exam. No obvious pneumothorax. Left lung grossly clear. Limited inspiration. Osseous structures are stable. IMPRESSION: 1. Cardiomegaly with right lower lobe infiltrate.
[2022-03-25] MEDS: SODIUM FERRIC GLUCONAT-SUCROSE 125 MG in SODIUM CHLORIDE 0.9% 100 ML IVPB SCH (12:30)
[2022-03-25] MEDS: ALBUTEROL NEBULIZED 2.5 MG/3 ML INHALATION PRN ×3 (13:00→21:06)
--- NOTE | 2022-03-25 14:09 | US ---
EXAMINATION TYPE: US venous doppler duplex UE RT DATE OF EXAM: 03/25/2022 COMPARISON: NONE CLINICAL HISTORY: edema. Swollen right hand SIDE PERFORMED: Right Right Arm: Negative for DVTsuperficial thrombus within right cephalic vein from forearm up, recent IV site, internal echoes that did not compress with no color flow detected Grayscale, color doppler, spectral doppler imaging performed of the deep veins of the upper extremiti es. There is normal flow, compressibility and vascular waveforms. IMPRESSION: 1. Superficial thrombophlebitis of the right cephalic vein in the forearm to IV site. 2. No evidence for deep vein thrombosis of the right upper extremity.
[2022-03-25 16:28] LABS: Glucose,Whole Blood 213 mg/dL (70-110)
[2022-03-25 19:57] LABS: Glucose,Whole Blood 198 mg/dL (70-110)
[2022-03-25] MEDS: PRIMIDONE 50 MG TAB PO SCH (21:04)
[2022-03-25] MEDS: SENNOSIDES-DOCUSATE SODIUM 1 EACH TAB PO SCH (21:04)
[2022-03-25] MEDS: ATORVASTATIN 10 MG TAB PO SCH (21:04)
[2022-03-25] MEDS: FENOFIBRATE 160 MG TAB PO SCH (21:04)
[2022-03-26] MEDS: ACETAMINOPHEN TAB 325 MG TAB PO PRN (04:27)
--- NOTE | 2022-03-26 05:54 | P.PN ---
Subjective Progress Note Date: 03/25/22 56-year-old lady with past medical history significant for insulin-dependent diabetes mellitus, hypertension, hyperlipidemia presented to the ER because of fall. Patient was all right yesterday evening when while she was watching TV and trying to get out of her couch she lost her balance and fell on her buttocks. She didn't lose any consciousness. Patient denied any seizure-like activity. Patient had no prior episode of any bone. Patient did not hit her head. Because of this fall patient came to the ER. In the ER, initial lab work showed patient to have a white count of 13.6, hemoglobin of 10.7, sodium 134, potassium 6, anion gap 10, creatinine 1.69, initial glucose was elevated at 75. X-ray of left hip and pelvis are negative for any fractures. Patient was admitted for further evaluation and treatment 03/24/2022 Patient is seen and evaluated in room at bedside; no specific complaints reported patient remains to be afebrile, the patient is breathing comfortably on a 4 L nasal cannula , the patient denies chest pain, the patient did have occasional dry cough , the patient denies nausea no vomiting no abdominal pain or diarrhea pain to the hip pain is currently controlled patient with a fever in this patient presented to the hospital after a fall wi th left femoral fracture s/p operative repair patient did have a positive UA concerning for a UTI with last urine culture done did grew out drug-resistant Klebsiella patient did have elevated CRP and procalcitonin. the patient urine did grow drug-resistant Klebsiella sensitive to cefepime and is also growing Shelly glabrata the patient white count count did came down with the addition of Diflucan, however no CBC was done today, we will continue Diflucan and cefepime and check a CBC and a CRP with a.m. labs 03/25/2022 Patient was seen and evaluated in follow-up today continues to report si gnificant weakness. Nursing staff reports she is not getting up and working very well with physical therapy due to hip pain. Multiple medical consultations following including infectious disease with repeat urinalysis ordered. Patient is continued on cefepime for UTI with Klebsiella pneumonia noted. Patient was maintained on IV steroids and being transitioned oral prednisone. Patient's potassium continues to be elevated with nephrology following and being started on lokelma daily. Patient chronically wears 4 L in the outpatient setting and denies worsening shortness of breath. Patient denies chest pain or palpitations. Needs encouragement with oral intake and recommended to continue monitoring checks before meals and at bedtime and will continue current regimen. To discuss further with case management about discharge planning as patient will need rehab for continued strength and mobility. Patient also having some right upper extremity arm pain will obtain venous Doppler which is pending. Review of systems: Constitutional: reports of fatigue, no fever, or chills Cardiovascular: No reports of chest pain or palpitations Respiratory: No reports of worsening shortness of breath or cough GI: No reports of nausea, vomiting, or diarrhea : No reports of dysuria or retention Neurovascular: reports of generalized weakness and right upper arm pain by the IV site All medications have been reviewed Active Medications Acetaminophen (Acetaminophen Tab 325 Mg Tab) 650 mg PO Q6HR PRN PRN Reason: Fever and/ or Pain Last Admin: 03/20/22 22:15 Dose: 650 mg Hydrocodone Bitart/Acetaminophen (Hydrocodone/Apap 5-325mg 1 Each Tab) 1 each PO Q6HR PRN PRN Reason: Pain Scale 1 to 5 Last Admin: 03/23/22 20:36 Dose: 1 each Hydrocodone Bitart/Acetaminophen (Hydrocodone/Apap 5-325mg 1 Each Tab) 2 each PO Q6HR PRN PRN Reason: Pain Scale 6 to 10 Last Admin: 03/25/22 09:24 Dose: 2 each Albuterol Sulfate (Albuterol Nebulized 2.5 Mg/3 Ml) 2.5 mg INHALATION RT-Q4H PRN PRN Reason: Shortness Of Breath Last Admin: 03/25/22 13:00 Dose: 2.5 mg Allopurinol (Allopurinol 100 Mg Tab) 100 mg PO BID [facility] Last Admin: 03/25/22 09:15 Dose: 100 mg Aspirin (Aspirin 81 Mg) 81 mg PO BID [facility] Last Admin: 03/25/22 09:14 Dose: 81 mg Atorvastatin Calcium (Atorvastatin 10 Mg Tab) 10 mg PO HS [facility] Last Admin: 03/24/22 21:38 Dose: 10 mg Budesonide/Formoterol Fumarate (Symbicort 160-4.5 Mcg Inhaler) 2 puff INHALATION RT-BID [facility] Last Admin: 03/25/22 08:43 Dose: 2 puff Dextrose/Water (Dextrose 50% Syringe 50 Ml) 50 ml IVP PER PROTOCOL PRN; Protocol PRN Reason: Hypoglycemia Dextrose/Water (Dextrose 50% Syringe 50 Ml) 25 ml IVP PER PROTOCOL PRN; Protocol PRN Reason: Hypoglycemia Fenofibrate (Fenofibrate 160 Mg Tab) 160 mg PO HS [facility] Last Admin: 03/24/22 21:38 Dose: 160 mg Fluconazole (Fluconazole 100 Mg Tab) 100 mg PO DAILY [facility]; Protocol Last Admin: 03/25/22 09:14 Dose: 100 mg Fluoxetine HCl (Fluoxetine Hcl 20 Mg Cap) 20 mg PO BID [facility] Last Admin: 03/25/22 09:15 Dose: 20 mg Gabapentin (Gabapentin 300 Mg Cap) 600 mg PO BID [facility] Last Admin: 03/25/22 09:15 Dose: 600 mg Heparin Sodium (Porcine) (Heparin Sodium,Porcine/Pf 5,000 Unit/0.5 Ml Syringe) 5,000 unit SQ Q12HR [facility] Last Admin: 03/25/22 09:14 Dose: 5,000 unit Hydromorphone HCl (Hydromorphone 0.5 Mg/0.5 Ml Syringe) 0.25 mg IVP Q3HR PRN PRN Reason: Pain Scale 1 to 3 Hydromorphone HCl (Hydromorphone 1 Mg/Ml 1 Ml Syringe) 1 mg IVP Q3HR PRN PRN Reason: Pain Scale 7 to 10 Last Admin: 03/22/22 06:40 Dose: 1 mg Hydromorphone HCl (Hydromorphone 0.5 Mg/0.5 Ml Syringe) 0.5 mg IVP Q3HR PRN PRN Reason: Pain Scale 4 to 6 Last Admin: 03/19/22 01:10 Dose: 0.5 mg Hydroxychloroquine Sulfate (Hydroxychloroquine Sulfate 200 Mg Tab) 200 mg PO BID [facility] Stop: 03/25/22 21:01 Last Admin: 03/25/22 09:14 Dose: 200 mg Hydroxyzine HCl (Hydroxyzine Hcl 25 Mg Tab) 25 mg PO QID PRN PRN Reason: Itching Hydroxyzine Pamoate (Hydroxyzine Pamoate 25 Mg Cap) 25 mg PO Q4HR PRN PRN Reason: Mild Nausea and/or Anxiety Last Admin: 03/23/22 13:05 Dose: 25 mg Cefepime HCl 1 gm/ Sodium (Chloride) 50 mls @ 12.5 mls/hr IVPB Q12H [facility]; Protocol Last Admin: 03/25/22 05:51 Dose: 12.5 mls/hr Ferric Sodium Gluconate 125 mg (/ Sodium Chloride) 110 mls @ 100 mls/hr IVPB DAILY [facility] Stop: 03/28/22 12:01 Last Admin: 03/25/22 12:30 Dose: 100 mls/hr Insulin Aspart (Insulin Aspart (Novolog) 100 Unit/Ml Vial) 0 unit SQ ACHS [facility]; Protocol Last Admin: 03/25/22 12:30 Dose: 6 unit Insulin Aspart (Insulin Aspart (Novolog) 100 Unit/Ml Vial) 18 unit SQ AC-TID [facility] Last Admin: 03/25/22 12:30 Dose: 18 unit Insulin Detemir (Insulin Detemir (Levemir) 100 Unit/Ml Syr) 17 unit SQ BID@0700,2100 [facility] Last Admin: 03/25/22 06:45 Dose: 17 unit Lorazepam (Lorazepam 1 Mg Tab) 1 mg PO Q6HR PRN PRN Reason: Anxiety Last Admin: 03/25/22 09:24 Dose: 1 mg Metoprolol Succinate (Metoprolol Succinate (Er) 25 Mg Tab.Er.24h) 75 mg PO DAILY [facility] Last Admin: 03/25/22 09:14 Dose: 75 mg Midodrine (Midodrine 5 Mg Tab) 10 mg PO AC-TID [facility] Last Admin: 03/25/22 12:35 Dose: Not Given Montelukast Sodium (Montelukast 10 Mg Tab) 10 mg PO DAILY [facility] Last Admin: 03/25/22 09:15 Dose: 10 mg Naloxone HCl (Naloxone 0.4 Mg/Ml 1 Ml Vial) 0.2 mg IV Q2M PRN PRN Reason: Opioid Reversal Ondansetron HCl (Ondansetron 4 Mg/2 Ml Vial) 4 mg IVP Q24HR PRN PRN Reason: Nausea And Vomiting Last Admin: 03/18/22 21:50 Dose: 4 mg Pantoprazole Sodium (Pantoprazole 40 Mg Tablet) 40 mg PO AC-BID [facility] Last Admin: 03/25/22 05:51 Dose: 40 mg Primidone (Primidone 50 Mg Tab) 50 mg PO HS [facility] Last Admin: 03/24/22 21:38 Dose: 50 mg Senna/Docusate Sodium (Sennosides-Docusate Sodium 1 Each Tab) 2 each PO HS [facility] Last Admin: 03/24/22 21:46 Dose: Not Given Sodium Bicarbonate (Sodium Bicarbonate Tab 650 Mg Tab) 650 mg PO TID [facility] Last Admin: 03/25/22 09:15 Dose: 650 mg Sodium Zirconium Cyclosilicate (Sodium Zirconium Cyclosilicate 10 Gm Packet) 10 gm PO DAILY [facility] Stop: 04/04/22 09:01 Physical exam: GENERAL: The patient is alert and oriented x3, lethargic but easily arousable. Developed, well-nourished, Morbidly obese HEENT: Pupils are round and equally reacting to light. EOMI. No scleral icterus. No conjunctival pallor. Normocephalic, atraumatic. No pharyngeal erythema. No thyromegaly. CARDIOVASCULAR: S1 and S2 muffled PULMONARY: diminished breath sounds bilaterally with no wheezing with scattered rhonchi noted ABDOMEN: Soft, obese. nontender, nondistended, normoactive bowel sounds. No palpable organomegaly. MUSCULOSKELETAL: No joint swelling or deformity. Left hip surgical wound with dressing in place. EXTREMITIES: No cyanosis, clubbing, or pedal edema. NEUROLOGICAL: Gross neurological examination did not reveal any focal deficits. Diffusely weak SKIN: No rashes. no petechiae. Assessment: Fall without losing consciousness but associated with lightheadedness and dizziness, most likely secondary to dehydration Left hip fracture, Status post operative fixation of the left subtrochanteric femur fracture with medullary nail Mild vaginal bleeding Acute kidney injury with hyperkalemia Diabetes mellitus uncontrolled with hyperglycemia, present on admission Severe dehydration with acute kidney injury present on admission, secondary to above Chronic hypoxic respiratory failure, chronically wears 4 L outpatient Asthma, not in exacerbation Gait dysfunction with immobility History of recurrent pneumonia History of lupus on treatment Morbid obesity with a BMI of 49.6 Plan: Recommend to continue with current medications with multiple medical consultations following [place] Patient with acute urinary tract infection maintained on cefepime with infectious disease following repeat urinalysis is ordered and pending at this time Patient did have right upper extremity pain with some swelling and Doppler was done showing a thrombophlebitis at the IV site with no evidence of DVT Orthopedics following as needed post hip and patient will need physical therapy with rehab Patient with significant weakness needs strong encouragement with increased activity as tolerated. Nephrology following as well patient continues to have elevated potassium being placed on lokelma daily and will follow-up with repeat labs Patient is chronically maintained on 4 L via nasal cannula and was also on IV steroids which is being transitioned to oral prednisone Need to discuss with case management about discharge planning, planning for ECF Recommend follow-up labs in a.m. Due to multiple complex medical issues, prognosis is guarded The impression and plan of care has been dictated by Fabienne Fortune, Nurse Practitioner as directed. Dr. Karsten MD I have performed a history and examination and MDM of this patient, discussed the same with the dictator, and agree with the dictator's assessment and plan as written ,documented as a scribe. Based on total visit time, I have performed more than 50% of the visit. Objective - Vital Signs Vital signs: Vital Signs Temp 97.5 F L 03/25/22 08:00 Pulse 91 03/25/22 08:00 Resp 18 03/25/22 08:00 BP 138/72 03/25/22 08:00 Pulse Ox 95 03/25/22 08:44 FiO2 Intake & Output 03/24/22 03/25/22 03/25/22 18:59 06:59 18:59 Intake Total 200 Output Total 300 Balance 200 -300 Intake: Oral 200 Output: Urine 300 Other: Voiding Method External Catheter # Voids 2 # Bowel Movements 0 - Labs CBC & Chem 7: 03/25/22 07:14 03/25/22 11:54 Labs: Abnormal Lab Results - Last 24 Hours (Table) 03/24/22 03/24/22 03/24/22 Range/Units 03:38 11:44 17:00 WBC (3.8-10.6) k/uL RBC (3.80-5.40) m/uL Hgb (11.4-16.0) gm/dL Hct (34.0-46.0) % MCHC (31.0-37.0) g/dL Neutrophils # (1.3-7.7) k/uL Monocytes # (0-1.0) k/uL Potassium (3.5-5.1) mmol/L BUN (7-17) mg/dL Creatinine (0.52-1.04) mg/dL Glucose (74-99) mg/dL POC Glucose (mg/dL) 166 H 191 H (70-110) mg/dL Calcium (8.4-10.2) mg/dL Iron 38 L (50-170) ug/dL C-Reactive Protein (<1.0) mg/dL 03/24/22 03/25/22 03/25/22 Range/Units 20:52 06:22 07:14 WBC 18.9 H (3.8-10.6) k/uL RBC 3.16 L (3.80-5.40) m/uL Hgb 8.7 L (11.4-16.0) gm/dL Hct 28.4 L (34.0-46.0) % MCHC 30.6 L (31.0-37.0) g/dL Neutrophils # 14.2 H (1.3-7.7) k/uL Monocytes # 1.1 H (0-1.0) k/uL Potassium (3.5-5.1) mmol/L BUN (7-17) mg/dL Creatinine (0.52-1.04) mg/dL Glucose (74-99) mg/dL POC Glucose (mg/dL) 213 H 214 H (70-110) mg/dL Calcium (8.4-10.2) mg/dL Iron (50-170) ug/dL C-Reactive Protein (<1.0) mg/dL 03/25/22 Range/Units 07:14 WBC (3.8-10.6) k/uL RBC (3.80-5.40) m/uL Hgb (11.4-16.0) gm/dL Hct (34.0-46.0) % MCHC (31.0-37.0) g/dL Neutrophils # (1.3-7.7) k/uL Monocytes # (0-1.0) k/uL Potassium 5.6 H (3.5-5.1) mmol/L BUN 61 H (7-17) mg/dL Creatinine 2.31 H (0.52-1.04) mg/dL Glucose 192 H (74-99) mg/dL POC Glucose (mg/dL) (70-110) mg/dL Calcium 8.2 L (8.4-10.2) mg/dL Iron (50-170) ug/dL C-Reactive Protein 4.0 H (<1.0) mg/dL Microbiology - Last 24 Hours (Table) 03/20/22 21:10 Blood Culture - Preliminary Blood No Growth after 96 hours 03/20/22 17:53 Blood Culture - Preliminary Blood No Growth after 96 hours
[2022-03-26 06:18] LABS: Glucose,Whole Blood 161 mg/dL (70-110)
[2022-03-26] MEDS: PANTOPRAZOLE 40 MG TABLET PO SCH ×2 (06:20→17:10)
[2022-03-26] MEDS: CEFEPIME 1 GM in SODIUM CHLORIDE 0.9% 50 ML IVPB SCH ×2 (06:20→17:11)
[2022-03-26] MEDS: MIDODRINE 5 MG TAB PO SCH ×3 (08:50→16:24)
[2022-03-26] MEDS: INSULIN ASPART (NovoLOG) 100 UNIT/ML VIAL SQ SCH ×7 (09:01→21:12)
[2022-03-26] MEDS: HEPARIN SODIUM,PORCINE/PF 5,000 UNIT/0.5 ML SYRINGE SQ SCH ×2 (09:01→21:20)
[2022-03-26] MEDS: INSULIN DETEMIR (LEVEMIR) 100 UNIT/ML SYR SQ SCH (09:01)
[2022-03-26] MEDS: allopurinoL 100 MG TAB PO SCH ×2 (09:02→21:21)
[2022-03-26] MEDS: HYDROcodone/APAP 5-325MG 1 EACH TAB PO PRN ×3 (09:02→19:10)
[2022-03-26] MEDS: ASPIRIN 81 MG PO SCH ×2 (09:02→21:21)
[2022-03-26] MEDS: FLUoxetine HCL 20 MG CAP PO SCH ×2 (09:02→21:21)
[2022-03-26] MEDS: FLUCONAZOLE 100 MG TAB PO SCH (09:02)
[2022-03-26] MEDS: MONTELUKAST 10 MG TAB PO SCH (09:03)
[2022-03-26] MEDS: GABAPENTIN 300 MG CAP PO SCH ×2 (09:03→21:21)
[2022-03-26] MEDS: METOPROLOL SUCCINATE (ER) 25 MG TAB.ER.24H PO SCH (09:03)
[2022-03-26] MEDS: SODIUM FERRIC GLUCONAT-SUCROSE 125 MG in SODIUM CHLORIDE 0.9% 100 ML IVPB SCH (09:03)
[2022-03-26] MEDS: SODIUM BICARBONATE TAB 650 MG TAB PO SCH ×3 (09:03→21:21)
[2022-03-26] MEDS: SODIUM ZIRCONIUM CYCLOSILICATE 10 GM PACKET PO SCH (09:04)
[2022-03-26] MEDS: SYMBICORT 160-4.5 MCG INHALER INHALATION SCH ×2 (09:24→19:33)
[2022-03-26] MEDS: ALBUTEROL NEBULIZED 2.5 MG/3 ML INHALATION PRN ×4 (09:24→19:33)
--- NOTE | 2022-03-26 11:34 | P.PN ---
Subjective Patient is seen for follow-up for acute kidney injury. She is comfortable. No acute distress. Renal function has improved over the last couple of days with creatinine down to 2.3 from 2.7. Labs are pending from today. Off of IV fluids Systolic Blood pressure was 98 mmHg early this morning. Objective - Vital Signs Vital signs: Vital Signs Temp 97.6 F 03/26/22 08:47 Pulse 80 03/26/22 09:37 Resp 16 03/26/22 08:48 BP 104/59 03/26/22 08:47 Pulse Ox 100 03/26/22 09:27 FiO2 Intake & Output 03/25/22 03/26/22 03/26/22 18:59 06:59 18:59 Intake Total 50 Balance 50 Weight 155.5 kg Intake: Oral 50 Other: Voiding Method External Catheter External Catheter # Voids 1 - Exam Awake, comfortable, distress Examination of the heart S1 and S2 Exertion lungs decreased breath sounds at the bases Abdomen is soft nontender Examination of lower extremities shows no significant edema [employer] exam grossly intact - Labs CBC & Chem 7: 03/25/22 07:14 03/25/22 11:54 Labs: Abnormal Lab Results - Last 24 Hours (Table) 03/25/22 03/25/22 03/25/22 Range/Units 11:27 16:28 19:55 POC Glucose (mg/dL) 202 H 213 H 198 H (70-110) mg/dL 03/26/22 Range/Units 06:14 POC Glucose (mg/dL) 161 H (70-110) mg/dL Microbiology - Last 24 Hours (Table) 03/20/22 21:10 Blood Culture - Preliminary Blood No Growth after 120 hours 03/20/22 17:53 Blood Culture - Preliminary Blood No Growth after 120 hours Assessment and Plan Assessment: 1. Acute kidney injury mostly prerenal secondary to hypovolemia from severe hyperglycemia. Further worsened due to severe hypotension with blood pressure in the systolic 70s. Creatinine 2.3. No hydronephrosis noted on kidney ultrasound although right kidney was not visualized. 2. Chronic kidney disease stage IIIB secondary to diabetic kidney disease. Baseline creatinine near 1.5. 3. History of lupus maintained on Plaquenil. Patient's UA from 02/14/2022 showed only 1 RBC. 4. Klebsiella UTI. On antibiotics. ID following. 5. Diabetes mellitus. Uncontrolled on admission. 6. Left femur fracture status post surgical repair 03/18/2022. 7. Hyperkalemia secondary to acute kidney injury, hyperglycemia and acidosis. Improved. On lokelma 8. Endometrial cancer being followed by oncology outpatient. Seen by og/bank cashier this admission. 9. Metabolic acidosis secondary to acute kidney injury and IV fluids. On oral bicarbonate. Improved. 10. Anemia of chronic kidney disease. Rule out iron deficiency. Plan: Maintain low potassium diet Continue with midodrine Continue iron
[2022-03-26 11:37] LABS: Glucose,Whole Blood 145 mg/dL (70-110)
--- NOTE | 2022-03-26 16:52 | P.PN ---
Subjective Progress Note Date: 03/26/22 56-year-old lady with past medical history significant for insulin-dependent diabetes mellitus, hypertension, hyperlipidemia presented to the ER because of fall. Patient was all right yesterday evening when while she was watching TV and trying to get out of her couch she lost her balance and fell on her buttocks. She didn't lose any consciousness. Patient denied any seizure-like activity. Patient had no prior episode of any bone. Patient did not hit her head. Because of this fall patient came to the ER. In the ER, initial lab work showed patient to have a white count of 13.6, hemoglobin of 10.7, sodium 134, potassium 6, anion gap 10, creatinine 1.69, initial glucose was elevated at 75. X-ray of left hip and pelvis are negative for any fractures. Patient was admitted for further evaluation and treatment 03/24/2022 Patient is seen and evaluated in room at bedside; no specific complaints reported patient remains to be afebrile, the patient is breathing comfortably on a 4 L nasal cannula , the patient denies chest pain, the patient did have occasional dry cough , the patient denies nausea no vomiting no abdominal pain or diarrhea pain to the hip pain is currently controlled patient with a fever in this patient presented to the hospital after a fall wi th left femoral fracture s/p operative repair patient did have a positive UA concerning for a UTI with last urine culture done did grew out drug-resistant Klebsiella patient did have elevated CRP and procalcitonin. the patient urine did grow drug-resistant Klebsiella sensitive to cefepime and is also growing Shelly glabrata the patient white count count did came down with the addition of Diflucan, however no CBC was done today, we will continue Diflucan and cefepime and check a CBC and a CRP with a.m. labs 03/25/2022 Patient was seen and evaluated in follow-up today continues to report si gnificant weakness. Nursing staff reports she is not getting up and working very well with physical therapy due to hip pain. Multiple medical consultations following including infectious disease with repeat urinalysis ordered. Patient is continued on cefepime for UTI with Klebsiella pneumonia noted. Patient was maintained on IV steroids and being transitioned oral prednisone. Patient's potassium continues to be elevated with nephrology following and being started on lokelma daily. Patient chronically wears 4 L in the outpatient setting and denies worsening shortness of breath. Patient denies chest pain or palpitations. Needs encouragement with oral intake and recommended to continue monitoring checks before meals and at bedtime and will continue current regimen. To discuss further with case management about discharge planning as patient will need rehab for continued strength and mobility. Patient also having some right upper extremity arm pain will obtain venous Doppler which is pending. 03/26/2022 Patient is seen and evaluated in follow-up with multiple medical consultations following including nephrology, infectious disease, orthopedics as needed. Patient is post left hip fracture extremely weak. Patient is chronically on 4 L and will continue. Infectious disease following and patient is maintained on cefepime along with oral Diflucan. Urine culture showing Klebsiella pneumonia along with Shelly glabrata and will need to discuss further about discharge planning with possible IV antibiotics or not. Patient also continued on IV iron. Potassium improved post lokelma and will continue per nephrology recommendations as low potassium diet. Recommend to continue monitoring blood sugars closely and Accu-Cheks before meals and at bedtime. Patient has received Plaquenil and is now discontinued. Case management is following and planning for ECF once stabilized and discharged from consultations. Patient needs much encouragement with increasing activity and mostly lies in the bed all day. Recommend PT/OT therapy daily. Review of systems: Constitutional: reports of fatigue, no fever, or chills Cardiovascular: No reports of chest pain or palpitations Respiratory: No reports of worsening shortness of breath or cough GI: No reports of nausea, vomiting, or diarrhea : No reports of dysuria or retention Neurovascular: reports of generalized weakness All medications have been reviewed Active Medications Acetaminophen (Acetaminophen Tab 325 Mg Tab) 650 mg PO Q6HR PRN PRN Reason: Fever and/ or Pain Last Admin: 03/26/22 04:27 Dose: 650 mg Hydrocodone Bitart/Acetaminophen (Hydrocodone/Apap 5-325mg 1 Each Tab) 1 each PO Q6HR PRN PRN Reason: Pain Scale 1 to 5 Last Admin: 03/26/22 09:02 Dose: 1 each Hydrocodone Bitart/Acetaminophen (Hydrocodone/Apap 5-325mg 1 Each Tab) 2 each PO Q6HR PRN PRN Reason: Pain Scale 6 to 10 Last Admin: 03/26/22 12:16 Dose: 2 each Albuterol Sulfate (Albuterol Nebulized 2.5 Mg/3 Ml) 2.5 mg INHALATION RT-Q4H PRN PRN Reason: Shortness Of Breath Last Admin: 03/26/22 16:24 Dose: 2.5 mg Allopurinol (Allopurinol 100 Mg Tab) 100 mg PO BID [facility] Last Admin: 03/26/22 09:02 Dose: 100 mg Aspirin (Aspirin 81 Mg) 81 mg PO BID [facility] Last Admin: 03/26/22 09:02 Dose: 81 mg Atorvastatin Calcium (Atorvastatin 10 Mg Tab) 10 mg PO HS [facility] Last Admin: 03/25/22 21:04 Dose: 10 mg Budesonide/Formoterol Fumarate (Symbicort 160-4.5 Mcg Inhaler) 2 puff INHALATION RT-BID [facility] Last Admin: 03/26/22 09:24 Dose: 2 puff Dextrose/Water (Dextrose 50% Syringe 50 Ml) 50 ml IVP PER PROTOCOL PRN; Protocol PRN Reason: Hypoglycemia Dextrose/Water (Dextrose 50% Syringe 50 Ml) 25 ml IVP PER PROTOCOL PRN; Protocol PRN Reason: Hypoglycemia Fenofibrate (Fenofibrate 160 Mg Tab) 160 mg PO HS [facility] Last Admin: 03/25/22 21:04 Dose: 160 mg Fluconazole (Fluconazole 100 Mg Tab) 100 mg PO DAILY [facility]; Protocol Last Admin: 03/26/22 09:02 Dose: 100 mg Fluoxetine HCl (Fluoxetine Hcl 20 Mg Cap) 20 mg PO BID [facility] Last Admin: 03/26/22 09:02 Dose: 20 mg Gabapentin (Gabapentin 300 Mg Cap) 600 mg PO BID [facility] Last Admin: 03/26/22 09:03 Dose: 600 mg Heparin Sodium (Porcine) (Heparin Sodium,Porcine/Pf 5,000 Unit/0.5 Ml Syringe) 5,000 unit SQ Q12HR [facility] Last Admin: 03/26/22 09:01 Dose: 5,000 unit Hydromorphone HCl (Hydromorphone 0.5 Mg/0.5 Ml Syringe) 0.25 mg IVP Q3HR PRN PRN Reason: Pain Scale 1 to 3 Hydromorphone HCl (Hydromorphone 1 Mg/Ml 1 Ml Syringe) 1 mg IVP Q3HR PRN PRN Reason: Pain Scale 7 to 10 Last Admin: 03/22/22 06:40 Dose: 1 mg Hydromorphone HCl (Hydromorphone 0.5 Mg/0.5 Ml Syringe) 0.5 mg IVP Q3HR PRN PRN Reason: Pain Scale 4 to 6 Last Admin: 03/19/22 01:10 Dose: 0.5 mg Hydroxyzine HCl (Hydroxyzine Hcl 25 Mg Tab) 25 mg PO QID PRN PRN Reason: Itching Hydroxyzine Pamoate (Hydroxyzine Pamoate 25 Mg Cap) 25 mg PO Q4HR PRN PRN Reason: Mild Nausea and/or Anxiety Last Admin: 03/23/22 13:05 Dose: 25 mg Cefepime HCl 1 gm/ Sodium (Chloride) 50 mls @ 12.5 mls/hr IVPB Q12H [facility]; Protocol Last Admin: 03/26/22 06:20 Dose: 12.5 mls/hr Ferric Sodium Gluconate 125 mg (/ Sodium Chloride) 110 mls @ 100 mls/hr IVPB DAILY [facility] Stop: 03/28/22 12:01 Last Admin: 03/26/22 09:03 Dose: 100 mls/hr Insulin Aspart (Insulin Aspart (Novolog) 100 Unit/Ml Vial) 0 unit SQ ACHS [facility]; Protocol Last Admin: 03/26/22 12:03 Dose: Not Given Insulin Aspart (Insulin Aspart (Novolog) 100 Unit/Ml Vial) 18 unit SQ AC-TID [facility] Last Admin: 03/26/22 12:17 Dose: 18 unit Insulin Detemir (Insulin Detemir (Levemir) 100 Unit/Ml Syr) 17 unit SQ B [id number] [facility] Last Admin: 03/26/22 09:01 Dose: 17 unit Lorazepam (Lorazepam 1 Mg Tab) 1 mg PO Q6HR PRN PRN Reason: Anxiety Last Admin: 03/25/22 21:04 Dose: 1 mg Metoprolol Succinate (Metoprolol Succinate (Er) 25 Mg Tab.Er.24h) 75 mg PO DAILY [facility] Last Admin: 03/26/22 09:03 Dose: 75 mg Midodrine (Midodrine 5 Mg Tab) 10 mg PO AC-TID [facility] Last Admin: 03/26/22 16:24 Dose: Not Given Montelukast Sodium (Montelukast 10 Mg Tab) 10 mg PO DAILY [facility] Last Admin: 03/26/22 09:03 Dose: 10 mg Naloxone HCl (Naloxone 0.4 Mg/Ml 1 Ml Vial) 0.2 mg IV Q2M PRN PRN Reason: Opioid Reversal Ondansetron HCl (Ondansetron 4 Mg/2 Ml Vial) 4 mg IVP Q24HR PRN PRN Reason: Nausea And Vomiting Last Admin: 03/18/22 21:50 Dose: 4 mg Pantoprazole Sodium (Pantoprazole 40 Mg Tablet) 40 mg PO AC-BID [facility] Last Admin: 03/26/22 06:20 Dose: 40 mg Primidone (Primidone 50 Mg Tab) 50 mg PO HS [facility] Last Admin: 03/25/22 21:04 Dose: 50 mg Senna/Docusate Sodium (Sennosides-Docusate Sodium 1 Each Tab) 2 each PO HS [facility] Last Admin: 03/25/22 21:04 Dose: 2 each Sodium Bicarbonate (Sodium Bicarbonate Tab 650 Mg Tab) 650 mg PO TID [facility] Last Admin: 03/26/22 09:03 Dose: 650 mg Sodium Zirconium Cyclosilicate (Sodium Zirconium Cyclosilicate 10 Gm Packet) 10 gm PO DAILY [facility] Stop: 04/04/22 09:01 Last Admin: 03/26/22 09:04 Dose: 10 gm Physical exam: GENERAL: The patient is alert and oriented x3, lethargic but easily arousable. Developed, well-nourished, Morbidly obese HEENT: Pupils are round and equally reacting to light. EOMI. No scleral icterus. No conjunctival pallor. Normocephalic, atraumatic. No pharyngeal erythema. No thyromegaly. CARDIOVASCULAR: S1 and S2 muffled PULMONARY: diminished breath sounds bilaterally with no wheezing with scattered rhonchi noted ABDOMEN: Soft, obese. nontender, nondistended, normoactive bowel sounds. No palpable organomegaly. MUSCULOSKELETAL: No joint swelling or deformity. Left hip surgical wound with dressing in place. EXTREMITIES: No cyanosis, clubbing, or pedal edema. NEUROLOGICAL: Gross neurological examination did not reveal any focal deficits. Diffusely weak SKIN: No rashes. no petechiae. Assessment: Fall without losing consciousness but associated with lightheadedness and dizziness, most likely secondary to dehydration Left hip fracture, Status post operative fixation of the left subtrochanteric femur fracture with medullary nail Mild vaginal bleeding, gynecology evaluated and will need outpatient follow-up Acute urinary tract infection, present on admission Acute kidney injury with hyperkalemia, improving Diabetes mellitus uncontrolled with hyperglycemia, present on admission Severe dehydration with acute kidney injury present on admission, secondary to above Chronic hypoxic respiratory failure, chronically wears 4 L outpatient Asthma, not in exacerbation Gait dysfunction with immobility History of recurrent pneumonia History of lupus on treatment Morbid obesity with a BMI of 49.6 Plan: Recommend to continue with current medications with multiple medical consultations following [place] Patient with acute urinary tract infection maintained on cefepime with infectious disease following repeat urinalysis is ordered and pending at this time, WBC was elevated with no labs today will order repeat CBC Patient did have right upper extremity pain with some swelling and Doppler was done showing a thrombophlebitis at the IV site with no evidence of DVT Orthopedics following as needed post hip and patient will need physical therapy with rehab Patient with significant weakness needs strong encouragement with increased activity as tolerated. Nephrology following as well patient continues to have elevated potassium being placed on lokelma daily and will follow-up with repeat labs, potassium improved Patient is chronically maintained on 4 L via nasal cannula and was also on IV steroids which is being transitioned to oral prednisone Need to discuss with case management about discharge planning, planning for ECF Will discuss with infectious disease if patient is requiring IV antibiotics on discharge Recommend follow-up labs in a.m. Due to multiple complex medical issues, prognosis is guarded The impression and plan of care has been dictated by Fabienne Fortune, Nurse Practitioner as directed. Dr. Karsten MD I have performed a history and examination and MDM of this patient, discussed the same with the dictator, and agree with the dictator's assessment and plan as written ,documented as a scribe. Based on total visit time, I have performed more than 50% of the visit. Objective - Vital Signs Vital signs: Vital Signs Temp 97.4 F L 03/26/22 16:23 Pulse 103 H 03/26/22 16:25 Resp 16 03/26/22 16:23 BP 113/68 03/26/22 16:23 Pulse Ox 100 03/26/22 16:23 FiO2 Intake & Output 03/25/22 03/26/22 03/26/22 18:59 06:59 18:59 Intake Total 50 240 Balance 50 240 Weight 155.5 kg Intake: Oral 50 240 Other: Voiding Method External Catheter External Catheter # Voids 1 - Labs CBC & Chem 7: 03/25/22 07:14 03/25/22 11:54 Labs: Abnormal Lab Results - Last 24 Hours (Table) 03/25/22 03/26/22 03/26/22 Range/Units 19:55 06:14 11:05 POC Glucose (mg/dL) 198 H 161 H (70-110) mg/dL Procalcitonin 0.26 H (0.02-0.09) ng/mL 03/26/22 Range/Units 11:35 POC Glucose (mg/dL) 145 H (70-110) mg/dL Procalcitonin (0.02-0.09) ng/mL Microbiology - Last 24 Hours (Table) 03/20/22 21:10 Blood Culture - Preliminary Blood No Growth after 120 hours 03/20/22 17:53 Blood Culture - Preliminary Blood No Growth after 120 hours
[2022-03-26 16:56] LABS: Glucose,Whole Blood 76 mg/dL (70-110)
[2022-03-26 20:34] LABS: Glucose,Whole Blood 70 mg/dL (70-110)
[2022-03-26] MEDS: FENOFIBRATE 160 MG TAB PO SCH (21:20)
[2022-03-26] MEDS: SENNOSIDES-DOCUSATE SODIUM 1 EACH TAB PO SCH (21:20)
[2022-03-26] MEDS: ATORVASTATIN 10 MG TAB PO SCH (21:21)
[2022-03-26] MEDS: PRIMIDONE 50 MG TAB PO SCH (21:21)
--- NOTE | 2022-03-26 22:20 | P.PN ---
Subjective Progress Note Date: 03/25/22 Principal diagnosis: Fever and urinary tract infection Patient is a 56-year-old female initially presenting to the hospital after the patient did have a fall patient did have a pain to the left leg area and she was noticed to have a nondisplaced subtrochanteric femoral fracture in this patient was status post surgical repair of the fracture patient noticed to have a fever and elevated white count and positive UA concerning for UTI. On today's evaluation that is 03/25/2022 the patient continues to be afebrile, the patient is breathing comfortably on a 4 L nasal cannula , the patient denies chest pain, the patient denies any worsening cough or sputum production no nausea no vomiting no abdominal pain or diarrhea Objective - Vital Signs Vital signs: Vital Signs Temp 97.5 F L 03/25/22 12:00 Pulse 80 03/25/22 13:05 Resp 18 03/25/22 12:51 BP 154/82 03/25/22 12:00 Pulse Ox 98 03/25/22 12:00 FiO2 Intake & Output 03/24/22 03/25/22 03/25/22 18:59 06:59 18:59 Intake Total 200 Output Total 300 Balance 200 -300 Intake: Oral 200 Output: Urine 300 Other: Voiding Method External Catheter # Voids 2 # Bowel Movements 0 - Exam GENERAL DESCRIPTION: Middle-age female lying in bed in no distress RESPIRATORY SYSTEM: Unlabored breathing , decreased breath sounds at bases HEART: S1 S2 regular rate and rhythm , ABDOMEN: Soft , no tenderness EXTREMITIES: No edema feet - Labs CBC & Chem 7: 03/25/22 07:14 03/25/22 11:54 Labs: Abnormal Lab Results - Last 24 Hours (Table) 03/24/22 03/24/22 03/24/22 Range/Units 03:38 17:00 20:52 WBC (3.8-10.6) k/uL RBC (3.80-5.40) m/uL Hgb (11.4-16.0) gm/dL Hct (34.0-46.0) % MCHC (31.0-37.0) g/dL Neutrophils # (1.3-7.7) k/uL Monocytes # (0-1.0) k/uL Potassium (3.5-5.1) mmol/L BUN (7-17) mg/dL Creatinine (0.52-1.04) mg/dL Glucose (74-99) mg/dL POC Glucose (mg/dL) 191 H 213 H (70-110) mg/dL Calcium (8.4-10.2) mg/dL Iron 38 L (50-170) ug/dL C-Reactive Protein (<1.0) mg/dL 03/25/22 03/25/22 03/25/22 Range/Units 06:22 07:14 07:14 WBC 18.9 H (3.8-10.6) k/uL RBC 3.16 L (3.80-5.40) m/uL Hgb 8.7 L (11.4-16.0) gm/dL Hct 28.4 L (34.0-46.0) % MCHC 30.6 L (31.0-37.0) g/dL Neutrophils # 14.2 H (1.3-7.7) k/uL Monocytes # 1.1 H (0-1.0) k/uL Potassium 5.6 H (3.5-5.1) mmol/L BUN 61 H (7-17) mg/dL Creatinine 2.31 H (0.52-1.04) mg/dL Glucose 192 H (74-99) mg/dL POC Glucose (mg/dL) 214 H (70-110) mg/dL Calcium 8.2 L (8.4-10.2) mg/dL Iron (50-170) ug/dL C-Reactive Protein 4.0 H (<1.0) mg/dL 03/25/22 Range/Units 11:27 WBC (3.8-10.6) k/uL RBC (3.80-5.40) m/uL Hgb (11.4-16.0) gm/dL Hct (34.0-46.0) % MCHC (31.0-37.0) g/dL Neutrophils # (1.3-7.7) k/uL Monocytes # (0-1.0) k/uL Potassium (3.5-5.1) mmol/L BUN (7-17) mg/dL Creatinine (0.52-1.04) mg/dL Glucose (74-99) mg/dL POC Glucose (mg/dL) 202 H (70-110) mg/dL Calcium (8.4-10.2) mg/dL Iron (50-170) ug/dL C-Reactive Protein (<1.0) mg/dL Microbiology - Last 24 Hours (Table) 03/20/22 21:10 Blood Culture - Preliminary Blood No Growth after 96 hours 03/20/22 17:53 Blood Culture - Preliminary Blood No Growth after 96 hours Assessment and Plan (1) Urinary tract bacterial infections Current Visit: Yes Status: Acute Code(s): N39.0 - URINARY TRACT INFECTION, SITE NOT SPECIFIED; A49.9 - BACTERIAL INFECTION, UNSPECIFIED SNOMED Code(s): 446136219 Plan: 1patient with a fever in this patient presented to the hospital after a fall with left femoral fracture s/p operative repair patient did have a positive UA concerning for a UTI with last urine culture done did grew out drug-resistant Klebsiella 2patient did have elevated CRP and procalcitonin. 3the patient urine did grow drug-resistant Klebsiella sensitive to cefepime and is also growing Shelly glabrata 4-patient did have slight worsening of the white count and request for a repeat UA culture, check a CRP for consulting and continue cefepime and Diflucan at this point Time with Patient: Less than 30
--- NOTE | 2022-03-26 22:21 | P.PN ---
Subjective Progress Note Date: 03/26/22 Principal diagnosis: Fever and urinary tract infection Patient is a 56-year-old female initially presenting to the hospital after the patient did have a fall patient did have a pain to the left leg area and she was noticed to have a nondisplaced subtrochanteric femoral fracture in this patient was status post surgical repair of the fracture patient noticed to have a fever and elevated white count and positive UA concerning for UTI. On today's evaluation that is 03/26/2022 the patient remains to be afebrile, the patient is breathing comfortably on nasal cannula , the patient is slightly sleepy lethargic today and did not answer any questions no vomiting or diarrhea has been reported by the nursing staff Objective - Vital Signs Vital signs: Vital Signs Temp 98.0 F 03/26/22 12:14 Pulse 88 03/26/22 12:57 Resp 16 03/26/22 12:14 BP 113/68 03/26/22 12:14 Pulse Ox 99 03/26/22 12:14 FiO2 Intake & Output 03/25/22 03/26/22 03/26/22 18:59 06:59 18:59 Intake Total 50 240 Balance 50 240 Weight 155.5 kg Intake: Oral 50 240 Other: Voiding Method External Catheter External Catheter # Voids 1 - Exam GENERAL DESCRIPTION: Middle-age female lying in bed in no distress RESPIRATORY SYSTEM: Unlabored breathing , decreased breath sounds at bases HEART: S1 S2 regular rate and rhythm , ABDOMEN: Soft , no tenderness EXTREMITIES: No edema feet - Labs CBC & Chem 7: 03/25/22 07:14 03/25/22 11:54 Labs: Abnormal Lab Results - Last 24 Hours (Table) 03/25/22 03/25/22 03/26/22 Range/Units 16:28 19:55 06:14 POC Glucose (mg/dL) 213 H 198 H 161 H (70-110) mg/dL 03/26/22 Range/Units 11:35 POC Glucose (mg/dL) 145 H (70-110) mg/dL Microbiology - Last 24 Hours (Table) 03/20/22 21:10 Blood Culture - Preliminary Blood No Growth after 120 hours 03/20/22 17:53 Blood Culture - Preliminary Blood No Growth after 120 hours Assessment and Plan (1) Urinary tract bacterial infections Current Visit: Yes Status: Acute Code(s): N39.0 - URINARY TRACT INFECTION, SITE NOT SPECIFIED; A49.9 - BACTERIAL INFECTION, UNSPECIFIED SNOMED Code(s): 736974345 Plan: 1patient with a fever in this patient presented to the hospital after a fall with left femoral fracture s/p operative repair patient did have a positive UA concerning for a UTI with last urine culture done did grew out drug-resistant Klebsiella 2patient did have elevated CRP and procalcitonin. 3the patient urine did grow drug-resistant Klebsiella sensitive to cefepime and is also growing Shelly glabrata 4-patient did have slight worsening of the white count yesterdayshe has been in today and we did request for a repeat UA culture which has not been collected, we will request for a UA again repeat a chest x-ray and continue cefepime and Diflucan and monitor clinical course closely Time with Patient: Less than 30
[2022-03-27] MEDS: HYDROcodone/APAP 5-325MG 1 EACH TAB PO PRN ×3 (04:03→14:53)
[2022-03-27 04:06] LABS: Glucose,Whole Blood 169 mg/dL (70-110)
[2022-03-27] MEDS: ALBUTEROL NEBULIZED 2.5 MG/3 ML INHALATION PRN ×5 (04:06→21:29)
[2022-03-27] MEDS: INSULIN DETEMIR (LEVEMIR) 100 UNIT/ML SYR SQ SCH ×3 (05:15→20:24)
[2022-03-27] MEDS: CEFEPIME 1 GM in SODIUM CHLORIDE 0.9% 50 ML IVPB SCH ×2 (05:16→18:36)
[2022-03-27 06:19] LABS: Glucose,Whole Blood 141 mg/dL (70-110)
[2022-03-27] MEDS: INSULIN ASPART (NovoLOG) 100 UNIT/ML VIAL SQ SCH ×7 (06:26→20:24)
[2022-03-27] MEDS: PANTOPRAZOLE 40 MG TABLET PO SCH ×2 (07:09→18:35)
[2022-03-27] MEDS: MIDODRINE 5 MG TAB PO SCH ×3 (07:10→16:39)
--- NOTE | 2022-03-27 08:17 | XR ---
EXAMINATION TYPE: XR chest 1V portable DATE OF EXAM: 03/27/2022 COMPARISON: 03/25/2022 HISTORY: Cough TECHNIQUE: Single frontal view of the chest is obtained. FINDINGS: Patient is rotated which limits the exam. There is persistent right-sided consolidation. H eart markedly enlarged but no overt failure or pneumothorax. Left lung clear. Osseous structures are stable IMPRESSION: 1. Cardiomegaly with stable right lower lobe and right small effusion correlate for pneumonia
[2022-03-27] MEDS: SYMBICORT 160-4.5 MCG INHALER INHALATION SCH ×2 (08:21→21:29)
[2022-03-27] MEDS: HEPARIN SODIUM,PORCINE/PF 5,000 UNIT/0.5 ML SYRINGE SQ SCH ×2 (09:08→20:24)
[2022-03-27] MEDS: allopurinoL 100 MG TAB PO SCH ×2 (09:09→20:23)
[2022-03-27] MEDS: ASPIRIN 81 MG PO SCH ×2 (09:09→20:23)
[2022-03-27] MEDS: FLUCONAZOLE 100 MG TAB PO SCH (09:09)
[2022-03-27] MEDS: FLUoxetine HCL 20 MG CAP PO SCH ×2 (09:09→20:23)
[2022-03-27] MEDS: MONTELUKAST 10 MG TAB PO SCH (09:09)
[2022-03-27] MEDS: METOPROLOL SUCCINATE (ER) 25 MG TAB.ER.24H PO SCH (09:09)
[2022-03-27] MEDS: GABAPENTIN 300 MG CAP PO SCH ×2 (09:09→20:23)
[2022-03-27] MEDS: SODIUM BICARBONATE TAB 650 MG TAB PO SCH ×2 (09:11→18:30)
[2022-03-27] MEDS: SODIUM ZIRCONIUM CYCLOSILICATE 10 GM PACKET PO SCH (09:23)
[2022-03-27 10:11] LABS: Appearance,Urine Cloudy (Clear); Bacteria,Urine Occasional /hpf; Bilirubin,Urine Negative (Negative); Blood,Urine Moderate (Negative); Budding Yeast,Urine Many /hpf; Color,Urine Yellow; Glucose,Urine (UA) Negative (Negative); Ketones,Urine Negative (Negative); Leukocyte Esterase,Urine Large (Negative); Mucus,Urine Rare /hpf; Nitrite,Urine Negative (Negative); PH, Urine 5.5 (5.0-8.0); Protein,Urine 1+ (Negative); RBC,Urine 52 /hpf (0-5); Specific Gravity,Urine 1.019 (1.001-1.035); Squamous Epithelial Cell,Urine 7 /hpf (0-4); Urobilinogen,Urine <2.0 mg/dL (<2.0); WBC,Urine 29 /hpf (0-5)
[2022-03-27 11:35] LABS: C Reactive Protein 1.9 mg/dL (<1.0); Calcium 8.4 mg/dL (8.4-10.2)
[2022-03-27 11:39] LABS: Glucose,Whole Blood 111 mg/dL (70-110)
[2022-03-27] MEDS: SODIUM FERRIC GLUCONAT-SUCROSE 125 MG in SODIUM CHLORIDE 0.9% 100 ML IVPB SCH (11:48)
[2022-03-27] MEDS: VORICONAZOLE 200 MG TAB PO SCH ×2 (12:19→20:24)
[2022-03-27 12:39] LABS: HCT 26.5 % (34.0-46.0); HGB 8.5 gm/dL (11.4-16.0); Hypochromasia Marked; MCH 28.6 pg (25.0-35.0); MCHC 31.9 g/dL (31.0-37.0); MCV 89.7 fL (80.0-100.0); Mean Platelet Volume 7.8; Platelet Count 373 k/uL (150-450); RBC 2.95 m/uL (3.80-5.40)
--- NOTE | 2022-03-27 16:11 | P.PN ---
Subjective Patient is seen for follow-up for acute kidney injury. She is comfortable. No acute distress. Renal function has improved over the last couple of days with creatinine down to 2.3 from 2.7. Labs are pending from today. Off of IV fluids Systolic Blood pressure was 98 mmHg early this morning. Objective - Vital Signs Vital signs: Vital Signs Temp 97.7 F 03/27/22 11:44 Pulse 101 H 03/27/22 15:45 Resp 18 03/27/22 15:45 BP 98/60 03/27/22 11:44 Pulse Ox 100 03/27/22 11:44 FiO2 Intake & Output 03/26/22 03/27/22 03/27/22 18:59 06:59 18:59 Intake Total 476 240 920 Output Total 1650 Balance -1174 240 920 Weight 155.5 kg Intake: IV 20 Invasive Line 5 20 Oral 476 240 900 Output: Urine 1650 Other: Voiding Method External Catheter External Catheter External Catheter # Bowel Movements 1 - Exam Awake, comfortable, distress, morbid obesity Examination of the heart S1 and S2 Exertion lungs decreased breath sounds at the bases Abdomen is soft nontender Examination of lower extremities shows no significant edema MEDICAL ASSOCIATE exam grossly intact - Labs CBC & Chem 7: 03/27/22 12:28 03/27/22 11:06 Labs: Abnormal Lab Results - Last 24 Hours (Table) 03/27/22 03/27/22 03/27/22 Range/Units 04:05 06:17 06:30 WBC (3.8-10.6) k/uL RBC (3.80-5.40) m/uL Hgb (11.4-16.0) gm/dL Hct (34.0-46.0) % RDW (11.5-15.5) % BUN (7-17) mg/dL Creatinine (0.52-1.04) mg/dL Glucose (74-99) mg/dL POC Glucose (mg/dL) 169 H 141 H (70-110) mg/dL C-Reactive Protein (<1.0) mg/dL Urine Appearance Cloudy H (Clear) Urine Protein 1+ H (Negative) Urine Blood Moderate H (Negative) Ur Leukocyte Esterase Large H (Negative) Urine RBC 52 H (0-5) /hpf Urine WBC 29 H (0-5) /hpf Ur Squamous Epith Cells 7 H (0-4) /hpf Urine Bacteria Occasional H (None) /hpf Urine Mucus Rare H (None) /hpf Urine Yeast (Budding) Many H (None) /hpf 03/27/22 03/27/22 03/27/22 Range/Units 11:06 11:37 12:28 WBC 16.8 H (3.8-10.6) k/uL RBC 2.95 L (3.80-5.40) m/uL Hgb 8.5 L (11.4-16.0) gm/dL Hct 26.5 L (34.0-46.0) % RDW 16.0 H (11.5-15.5) % BUN 64 H (7-17) mg/dL Creatinine 2.31 H (0.52-1.04) mg/dL Glucose 117 H (74-99) mg/dL POC Glucose (mg/dL) 111 H (70-110) mg/dL C-Reactive Protein 1.9 H (<1.0) mg/dL Urine Appearance (Clear) Urine Protein (Negative) Urine Blood (Negative) Ur Leukocyte Esterase (Negative) Urine RBC (0-5) /hpf Urine WBC (0-5) /hpf Ur Squamous Epith Cells (0-4) /hpf Urine Bacteria (None) /hpf Urine Mucus (None) /hpf Urine Yeast (Budding) (None) /hpf Microbiology - Last 24 Hours (Table) 03/20/22 21:10 Blood Culture - Final Blood No Growth after 144 hours 03/20/22 17:53 Blood Culture - Final Blood No Growth after 144 hours Assessment and Plan Assessment: 1. Acute kidney injury mostly prerenal secondary to hypovolemia from severe hyperglycemia. Further worsened due to severe hypotension with blood pressure in the systolic 70s. Creatinine 2.3. No hydronephrosis noted on kidney ultrasound although right kidney was not visualized. 2. Chronic kidney disease stage IIIB secondary to diabetic kidney disease. Baseline creatinine near 1.5. 3. History of lupus maintained on Plaquenil. Patient's UA from 02/14/2022 show ed only 1 RBC. 4. Klebsiella UTI. On antibiotics. ID following. 5. Diabetes mellitus. Uncontrolled on admission. 6. Left femur fracture status post surgical repair 03/18/2022. 7. Hyperkalemia secondary to acute kidney injury, hyperglycemia and acidosis. Improved. On lokelma 8. Endometrial cancer being followed by oncology outpatient. Seen by industry analyst this admission. 9. Metabolic acidosis secondary to acute kidney injury and IV fluids. On oral bicarbonate. Improved. 10. Anemia of chronic kidney disease. Rule out iron deficiency. Plan: Maintain low potassium diet Continue with midodrine Continue iron Decrease sodium bicarbonate.
[2022-03-27 16:16] LABS: Band Neutrophils % 1 %; Metamyelocytes # (M) 0.17 k/uL (0); Metamyelocytes % 1 %; Myelocytes # (M) 0.17 k/uL (0); Myelocytes % 1 %; Neutrophils % (M) 64 %; Nucleated Red Blood Cells 2 /100 WBC (0-0); Total Cells Counted 100
[2022-03-27 16:17] LABS: Monocytes # (M) 1.65 k/uL (0-1.0); WBC 16.5 k/uL (3.8-10.6)
[2022-03-27 16:38] LABS: Glucose,Whole Blood 57 mg/dL (70-110)
[2022-03-27 16:53] LABS: Glucose,Whole Blood 63 mg/dL (70-110)
[2022-03-27 17:11] LABS: Glucose,Whole Blood 63 mg/dL (70-110)
[2022-03-27 17:26] LABS: Glucose,Whole Blood 78 mg/dL (70-110)
[2022-03-27 20:18] LABS: Glucose,Whole Blood 112 mg/dL (70-110)
[2022-03-27] MEDS: PRIMIDONE 50 MG TAB PO SCH (20:23)
[2022-03-27] MEDS: FENOFIBRATE 160 MG TAB PO SCH (20:23)
[2022-03-27] MEDS: SENNOSIDES-DOCUSATE SODIUM 1 EACH TAB PO SCH (20:23)
[2022-03-27] MEDS: ATORVASTATIN 10 MG TAB PO SCH (20:24)
[2022-03-27] MEDS: LORazepam 1 MG TAB PO PRN (22:47)
--- NOTE | 2022-03-28 01:43 | P.PN ---
Subjective Progress Note Date: 03/27/22 56-year-old lady with past medical history significant for insulin-dependent diabetes mellitus, hypertension, hyperlipidemia presented to the ER because of fall. Patient was all right yesterday evening when while she was watching TV and trying to get out of her couch she lost her balance and fell on her buttocks. She didn't lose any consciousness. Patient denied any seizure-like activity. Patient had no prior episode of any bone. Patient did not hit her head. Because of this fall patient came to the ER. In the ER, initial lab work showed patient to have a white count of 13.6, hemoglobin of 10.7, sodium 134, potassium 6, anion gap 10, creatinine 1.69, initial glucose was elevated at 75. X-ray of left hip and pelvis are negative for any fractures. Patient was admitted for further evaluation and treatment 03/24/2022 Patient is seen and evaluated in room at bedside; no specific complaints reported patient remains to be afebrile, the patient is breathing comfortably on a 4 L nasal cannula , the patient denies chest pain, the patient did have occasional dry cough , the patient denies nausea no vomiting no abdominal pain or diarrhea pain to the hip pain is currently controlled patient with a fever in this patient presented to the hospital after a fall wi th left femoral fracture s/p operative repair patient did have a positive UA concerning for a UTI with last urine culture done did grew out drug-resistant Klebsiella patient did have elevated CRP and procalcitonin. the patient urine did grow drug-resistant Klebsiella sensitive to cefepime and is also growing Shelly glabrata the patient white count count did came down with the addition of Diflucan, however no CBC was done today, we will continue Diflucan and cefepime and check a CBC and a CRP with a.m. labs 03/25/2022 Patient was seen and evaluated in follow-up today continues to report si gnificant weakness. Nursing staff reports she is not getting up and working very well with physical therapy due to hip pain. Multiple medical consultations following including infectious disease with repeat urinalysis ordered. Patient is continued on cefepime for UTI with Klebsiella pneumonia noted. Patient was maintained on IV steroids and being transitioned oral prednisone. Patient's potassium continues to be elevated with nephrology following and being started on lokelma daily. Patient chronically wears 4 L in the outpatient setting and denies worsening shortness of breath. Patient denies chest pain or palpitations. Needs encouragement with oral intake and recommended to continue monitoring checks before meals and at bedtime and will continue current regimen. To discuss further with case management about discharge planning as patient will need rehab for continued strength and mobility. Patient also having some right upper extremity arm pain will obtain venous Doppler which is pending. 03/26/2022 Patient is seen and evaluated in follow-up with multiple medical consultations following including nephrology, infectious disease, orthopedics as needed. Patient is post left hip fracture extremely weak. Patient is chronically on 4 L and will continue. Infectious disease following and patient is maintained on cefepime along with oral Diflucan. Urine culture showing Klebsiella pneumonia along with Shelly glabrata and will need to discuss further about discharge planning with possible IV antibiotics or not. Patient also continued on IV iron. Potassium improved post lokelma and will continue per nephrology recommendations as low potassium diet. Recommend to continue monitoring blood sugars closely and Accu-Cheks before meals and at bedtime. Patient has received Plaquenil and is now discontinued. Case management is following and planning for ECF once stabilized and discharged from consultations. Patient needs much encouragement with increasing activity and mostly lies in the bed all day. Recommend PT/OT therapy daily. 03/27/2022 Patient is seen in follow-up today currently maintained on cefepime. Patient is receiving inaccurate This patient is a difficult IV start. Labs reviewed and WBC is trending down. Discussed with infectious disease and patient will be continued on Vfend for the next 3 days to complete the course. Repeat urinalysis was sent 3 times per nursing staff although on resulted. Discussed lab and results will be up today. Patient is afebrile denies worsening shortness of breath or chest pains. Patient's oral intake is fair and blood sugars have been dropping will adjust medications. Recommend Accu-Cheks before meals and at bedtime and as needed. Encouraged oral intake and increased activity as tolerated. Patient with significant weakness with case management following working on insurance authorization to ECF. Review of systems: Constitutional: reports of fatigue, no fever, or chills Cardiovascular: No reports of chest pain or palpitations Respiratory: No reports of worsening shortness of breath or cough GI: No reports of nausea, vomiting, or diarrhea : No reports of dysuria or retention Neurovascular: reports of generalized weakness All medications have been reviewed Physical exam: GENERAL: The patient is alert and oriented x3, lethargic but easily arousable. Developed, well-nourished, Morbidly obese HEENT: Pupils are round and equally reacting to light. EOMI. No scleral icterus. No conjunctival pallor. Normocephalic, atraumatic. No pharyngeal erythema. No thyromegaly. CARDIOVASCULAR: S1 and S2 muffled PULMONARY: diminished breath sounds bilaterally with no wheezing with scattered rhonchi noted ABDOMEN: Soft, obese. nontender, nondistended, normoactive bowel sounds. No palpable organomegaly. MUSCULOSKELETAL: No joint swelling or deformity. Left hip surgical wound with dressing in place. EXTREMITIES: No cyanosis, clubbing, or pedal edema. NEUROLOGICAL: Gross neurological examination did not reveal any focal deficits. Diffusely weak SKIN: No rashes. no petechiae. Assessment: Fall without losing consciousness but associated with lightheadedness and dizziness, most likely secondary to dehydration Left hip fracture, Status post operative fixation of the left subtrochanteric femur fracture with medullary nail Mild vaginal bleeding, gynecology evaluated and will need outpatient follow-up Acute urinary tract infection, present on admission Acute kidney injury with hyperkalemia, improving Diabetes mellitus uncontrolled with hyperglycemia, present on admission Severe dehydration with acute kidney injury present on admission, secondary to above Chronic hypoxic respiratory failure, chronically wears 4 L outpatient Asthma, not in exacerbation Gait dysfunction with immobility History of recurrent pneumonia History of lupus on treatment Morbid obesity with a BMI of 49.6 Plan: Recommend to continue with current medications with multiple medical consultations following Patient with acute urinary tract infection maintained on cefepime with infectious disease following repeat urinalysis is ordered and pending at this time, WBC was elevated with no labs today will order repeat CBC, apparently CBC was clotted and redraw is ordered. Per nursing staff, urinalysis has been sent 3 times and pending report Patient did have right upper extremity pain with some swelling and Doppler was done showing a thrombophlebitis at the IV site with no evidence of DVT Orthopedics following as needed post hip and patient will need physical therapy with rehab Patient with significant weakness needs strong encouragement with increased activity as tolerated. Nephrology following as well patient continues to have elevated potassium being placed on lokelma daily and will follow-up with repeat labs, potassium improved Patient is chronically maintained on 4 L via nasal cannula and was also on IV steroids which is being transitioned to oral prednisone case management following and working on discharge planning, planning for ECF and awaiting insurance authorization Discussed with infectious disease and patient will continue on Vfend for 3 days Possible discharge in 24 hours Due to multiple complex medical issues, prognosis is guarded The impression and plan of care has been dictated by Fabienne Fortune, Nurse Practitioner as directed. Dr. Karsten MD I have performed a history and examination and MDM of this patient, discussed the same with the dictator, and agree with the dictator's assessment and plan as written ,documented as a scribe. Based on total visit time, I have performed more than 50% of the visit. Objective - Vital Signs Vital signs: Vital Signs Temp 97.4 F L 03/26/22 16:23 Pulse 100 03/27/22 08:33 Resp 18 03/27/22 08:33 BP 119/76 03/27/22 04:00 Pulse Ox 95 03/27/22 08:21 FiO2 Intake & Output 03/26/22 03/27/22 03/27/22 18:59 06:59 18:59 Intake Total 476 240 720 Output Total 1650 Balance -1174 240 720 Weight 155.5 kg Intake: Oral 476 240 720 Output: Urine 1650 Other: Voiding Method External Catheter External Catheter # Bowel Movements 1 - Labs CBC & Chem 7: 03/27/22 12:28 03/27/22 11:06 Labs: Abnormal Lab Results - Last 24 Hours (Table) 03/26/22 03/26/22 03/27/22 Range/Units 11:05 11:35 04:05 POC Glucose (mg/dL) 145 H 169 H (70-110) mg/dL Procalcitonin 0.26 H (0.02-0.09) ng/mL 03/27/22 Range/Units 06:17 POC Glucose (mg/dL) 141 H (70-110) mg/dL Procalcitonin (0.02-0.09) ng/mL Microbiology - Last 24 Hours (Table) 03/20/22 21:10 Blood Culture - Final Blood No Growth after 144 hours 03/20/22 17:53 Blood Culture - Final Blood No Growth after 144 hours
[2022-03-28 05:57] LABS: Glucose,Whole Blood 157 mg/dL (70-110)
[2022-03-28] MEDS: PANTOPRAZOLE 40 MG TABLET PO SCH ×2 (06:58→17:29)
[2022-03-28] MEDS: MIDODRINE 5 MG TAB PO SCH ×3 (06:58→17:18)
[2022-03-28] MEDS: INSULIN ASPART (NovoLOG) 100 UNIT/ML VIAL SQ SCH ×6 (06:58→17:19)
[2022-03-28] MEDS: CEFEPIME 1 GM in SODIUM CHLORIDE 0.9% 50 ML IVPB SCH ×2 (06:59→17:19)
[2022-03-28] MEDS: INSULIN DETEMIR (LEVEMIR) 100 UNIT/ML SYR SQ SCH (06:59)
[2022-03-28] MEDS: SYMBICORT 160-4.5 MCG INHALER INHALATION SCH (08:05)
[2022-03-28] MEDS: ALBUTEROL NEBULIZED 2.5 MG/3 ML INHALATION PRN ×3 (08:05→16:14)
[2022-03-28] MEDS ORDERED: SODIUM BICARBONATE TAB 650 MG TAB PO SCH (09:00)
[2022-03-28] MEDS: MONTELUKAST 10 MG TAB PO SCH (10:06)
[2022-03-28] MEDS: allopurinoL 100 MG TAB PO SCH (10:06)
[2022-03-28] MEDS: GABAPENTIN 300 MG CAP PO SCH (10:07)
[2022-03-28] MEDS: HEPARIN SODIUM,PORCINE/PF 5,000 UNIT/0.5 ML SYRINGE SQ SCH (10:07)
[2022-03-28] MEDS: METOPROLOL SUCCINATE (ER) 25 MG TAB.ER.24H PO SCH (10:07)
[2022-03-28] MEDS: SODIUM ZIRCONIUM CYCLOSILICATE 10 GM PACKET PO SCH (10:07)
[2022-03-28] MEDS: FLUoxetine HCL 20 MG CAP PO SCH (10:07)
[2022-03-28] MEDS: VORICONAZOLE 200 MG TAB PO SCH (10:07)
[2022-03-28] MEDS: ASPIRIN 81 MG PO SCH (10:07)
--- NOTE | 2022-03-28 10:26 | P.PN ---
Subjective Progress Note Date: 03/27/22 Principal diagnosis: Fever and urinary tract infection Patient is a 56-year-old female initially presenting to the hospital after the patient did have a fall patient did have a pain to the left leg area and she was noticed to have a nondisplaced subtrochanteric femoral fracture in this patient was status post surgical repair of the fracture patient noticed to have a fever and elevated white count and positive UA concerning for UTI. On today's evaluation that is 03/27/2022 the patient continues to be afebrile, the patient is breathing comfortably on nasal cannula oxygen, the patient denies any chest pain or shortness of breath occasional dry cough no nausea no v omiting no abdominal pain no diarrhea has been reported pain to the left hip is currently controlled Objective - Vital Signs Vital signs: Vital Signs Temp 98.0 F 03/27/22 09:05 Pulse 100 03/27/22 11:41 Resp 18 03/27/22 11:41 BP 101/60 03/27/22 09:05 Pulse Ox 100 03/27/22 09:05 FiO2 Intake & Output 03/26/22 03/27/22 03/27/22 18:59 06:59 18:59 Intake Total 476 240 720 Output Total 1650 Balance -1174 240 720 Weight 155.5 kg Intake: Oral 476 240 720 Output: Urine 1650 Other: Voiding Method External Catheter External Catheter External Catheter # Bowel Movements 1 - Exam GENERAL DESCRIPTION: Middle-age female lying in bed in no distress RESPIRATORY SYSTEM: Unlabored breathing , decreased breath sounds at bases HEART: S1 S2 regular rate and rhythm , ABDOMEN: Soft , no tenderness EXTREMITIES: Left hip surgical site is currently dressed no drainage on the dressing or surrounding redness - Labs CBC & Chem 7: 03/27/22 12:28 03/27/22 11:06 Labs: Abnormal Lab Results - Last 24 Hours (Table) 03/26/22 03/27/22 03/27/22 Range/Units 11:05 04:05 06:17 BUN (7-17) mg/dL Creatinine (0.52-1.04) mg/dL Glucose (74-99) mg/dL POC Glucose (mg/dL) 169 H 141 H (70-110) mg/dL C-Reactive Protein (<1.0) mg/dL Procalcitonin 0.26 H (0.02-0.09) ng/mL Urine Appearance (Clear) Urine Protein (Negative) Urine Blood (Negative) Ur Leukocyte Esterase (Negative) Urine RBC (0-5) /hpf Urine WBC (0-5) /hpf Ur Squamous Epith Cells (0-4) /hpf Urine Bacteria (None) /hpf Urine Mucus (None) /hpf Urine Yeast (Budding) (None) /hpf 03/27/22 03/27/22 03/27/22 Range/Units 06:30 11:06 11:37 BUN 64 H (7-17) mg/dL Creatinine 2.31 H (0.52-1.04) mg/dL Glucose 117 H (74-99) mg/dL POC Glucose (mg/dL) 111 H (70-110) mg/dL C-Reactive Protein 1.9 H (<1.0) mg/dL Procalcitonin (0.02-0.09) ng/mL Urine Appearance Cloudy H (Clear) Urine Protein 1+ H (Negative) Urine Blood Moderate H (Negative) Ur Leukocyte Esterase Large H (Negative) Urine RBC 52 H (0-5) /hpf Urine WBC 29 H (0-5) /hpf Ur Squamous Epith Cells 7 H (0-4) /hpf Urine Bacteria Occasional H (None) /hpf Urine Mucus Rare H (None) /hpf Urine Yeast (Budding) Many H (None) /hpf Microbiology - Last 24 Hours (Table) 03/20/22 21:10 Blood Culture - Final Blood No Growth after 144 hours 03/20/22 17:53 Blood Culture - Final Blood No Growth after 144 hours Assessment and Plan (1) Urinary tract bacterial infections Current Visit: Yes Status: Acute Code(s): N39.0 - URINARY TRACT INFECTION, SITE NOT SPECIFIED; A49.9 - BACTERIAL INFECTION, UNSPECIFIED SNOMED Code(s): 832968998 Plan: 1patient with a fever in this patient presented to the hospital after a fall with left femoral fracture s/p operative repair patient did have a positive UA concerning for a UTI with last urine culture done did grew out drug-resistant Klebsiella 2patient did have elevated CRP and procalcitonin. 3the patient urine did grow drug-resistant Klebsiella sensitive to cefepime and is also growing Shelly glabrata 4-patient repeat UA finally done did shows significant yeast more likely shelly glabrata we will discontinue Diflucan start the patient on Voriconazole recommending a short course 3-5 days on discharge and holding the medication that is interacting with it this was discussed with REPAIRER SWITCHGEAR for admitting team Time with Patient: Less than 30
[2022-03-28 11:23] VITALS: RESP 17
[2022-03-28 11:26] LABS: Glucose,Whole Blood 273 mg/dL (70-110)
--- NOTE | 2022-03-28 11:30 | P.PN ---
Subjective Patient is seen for follow-up for acute kidney injury. She is comfortable. No acute distress. Renal function has improved over the last couple of days with creatinine down to 2.3 from 2.7. . Off of IV fluids Systolic Blood pressure remains on the lower side but mostly above 100. Maintained on midodrine 10 mg 3 times a day. Objective - Vital Signs Vital signs: Vital Signs Temp 98.1 F 03/28/22 08:00 Pulse 88 03/28/22 08:14 Resp 17 03/28/22 08:00 BP 113/63 03/28/22 08:00 Pulse Ox 96 03/28/22 08:07 FiO2 Intake & Output 03/27/22 03/28/22 03/28/22 18:59 06:59 18:59 Intake Total 1100 358 Output Total 293 Balance 1100 -293 358 Intake: IV 20 Invasive Line 5 20 Oral 1080 358 Output: Post Void Residual 293 Other: Voiding Method External Catheter External Catheter Incontinent External Catheter # Voids 1 - Exam Awake, comfortable, distress, morbid obesity, laying in bed Examination of the heart S1 and S2 Exertion lungs decreased breath sounds at the bases Abdomen is soft nontender Examination of lower extremities shows no significant edema AIRPLANE TECHNICIAN exam grossly intact - Labs CBC & Chem 7: 03/27/22 12:28 03/27/22 11:06 Labs: Abnormal Lab Results - Last 24 Hours (Table) 03/27/22 03/27/22 03/27/22 Range/Units 11:06 11:37 12:28 WBC 16.5 H (3.8-10.6) k/uL RBC 2.95 L (3.80-5.40) m/uL Hgb 8.5 L (11.4-16.0) gm/dL Hct 26.5 L (34.0-46.0) % RDW 16.0 H (11.5-15.5) % Neutrophils # (Manual) 10.70 H (1.3-7.7) k/uL Monocytes # (Manual) 1.65 H (0-1.0) k/uL Metamyelocytes # (Man) 0.17 H (0) k/uL Myelocytes # (Manual) 0.17 H (0) k/uL Nucleated RBCs 2 H (0-0) /100 WBC BUN 64 H (7-17) mg/dL Creatinine 2.31 H (0.52-1.04) mg/dL Glucose 117 H (74-99) mg/dL POC Glucose (mg/dL) 111 H (70-110) mg/dL C-Reactive Protein 1.9 H (<1.0) mg/dL 03/27/22 03/27/22 03/27/22 Range/Units 16:36 16:51 17:05 WBC (3.8-10.6) k/uL RBC (3.80-5.40) m/uL Hgb (11.4-16.0) gm/dL Hct (34.0-46.0) % RDW (11.5-15.5) % Neutrophils # (Manual) (1.3-7.7) k/uL Monocytes # (Manual) (0-1.0) k/uL Metamyelocytes # (Man) (0) k/uL Myelocytes # (Manual) (0) k/uL Nucleated RBCs (0-0) /100 WBC BUN (7-17) mg/dL Creatinine (0.52-1.04) mg/dL Glucose (74-99) mg/dL POC Glucose (mg/dL) 57 L 63 L 63 L (70-110) mg/dL C-Reactive Protein (<1.0) mg/dL 03/27/22 03/28/22 03/28/22 Range/Units 20:17 05:56 11:25 WBC (3.8-10.6) k/uL RBC (3.80-5.40) m/uL Hgb (11.4-16.0) gm/dL Hct (34.0-46.0) % RDW (11.5-15.5) % Neutrophils # (Manual) (1.3-7.7) k/uL Monocytes # (Manual) (0-1.0) k/uL Metamyelocytes # (Man) (0) k/uL Myelocytes # (Manual) (0) k/uL Nucleated RBCs (0-0) /100 WBC BUN (7-17) mg/dL Creatinine (0.52-1.04) mg/dL Glucose (74-99) mg/dL POC Glucose (mg/dL) 112 H 157 H 273 H (70-110) mg/dL C-Reactive Protein (<1.0) mg/dL Microbiology - Last 24 Hours (Table) 03/27/22 06:30 Urine Culture - Preliminary Urine,Voided Assessment and Plan Assessment: 1. Acute kidney injury mostly prerenal secondary to hypovolemia from severe hyperglycemia. Further worsened due to severe hypotension with blood pressure in the systolic 70s. Creatinine 2.3. No hydronephrosis noted on kidney ultrasound although right kidney was not visualized. 2. Chronic kidney disease stage IIIB secondary to diabetic kidney disease. Baseline creatinine near 1.5. 3. History of lupus maintained on Plaquenil. Patient's UA from 02/14/2022 showed only 1 RBC. 4. Klebsiella UTI. On antibiotics. ID following. 5. Diabetes mellitus. Uncontrolled on admission. 6. Left femur fracture status post surgical repair 03/18/2022. 7. Hyperkalemia secondary to acute kidney injury, hyperglycemia and acidosis. Improved. On lokelma 8. Endometrial cancer being followed by oncology outpatient. Seen by cable cutter and swager this admission. 9. Metabolic acidosis secondary to acute kidney injury and IV fluids. On oral bicarbonate. Improved. 10. Anemia of chronic kidney disease. Rule out iron deficiency. Plan: Maintain low potassium diet Continue with midodrine Continue iron Discontinue sodium bicarbonate.
[2022-03-28] MEDS: SODIUM FERRIC GLUCONAT-SUCROSE 125 MG in SODIUM CHLORIDE 0.9% 100 ML IVPB SCH (11:48)
[2022-03-28] MEDS: HYDROcodone/APAP 5-325MG 1 EACH TAB PO PRN ×2 (11:51→17:29)
[2022-03-28 13:31] VITALS: BP 119/70; TEMP 97.6
--- NOTE | 2022-03-28 14:36 | P.DS ---
Providers Date of admission: 03/20/22 09:24 Expected date of discharge: 03/28/22 Attending physician: Isabela Shelley Consults: 03/17/22 11:39 Consult Physician Routine Consulting Provider: Trudy Sparks Consult Reason/Comments: Ab, hyperkalemia Do you want consulting provider notified?: Yes 03/17/22 11:44 Consult Physician Routine Consulting Provider: Ronnie Disla Consult Reason/Comments: left hip pain Do you want consulting provider notified?: Yes 03/18/22 14:44 Consult Physician Urgent Consulting Provider: Yakov Hodge Consult Reason/Comments: pre-op clearance, on 4L hx of rec pneumonia Do you want consulting provider notified?: Yes 03/19/22 09:26 Consult Physician Routine Consulting Provider: Mary Bustamante Consult Reason/Comments: Blood in vaginal area Do you want consulting provider notified?: Yes 03/20/22 16:50 Consult Physician Routine Consulting Provider: Abner Alva Consult Reason/Comments: fever while on antibiotics Do you want consulting provider notified?: Yes Primary care physician: Deanne Chahal Hospital Course: Final diagnosis Fall without losing consciousness but associated with lightheadedness and dizziness, most likely secondary to dehydration Left hip fracture, Status post operative fixation of the left subtrochanteric femur fracture with medullary nail Mild vaginal bleeding, gynecology evaluated and will need outpatient follow-up Acute urinary tract infection, present on admission with Klebsiella Acute kidney injury with hyperkalemia, improving Diabetes mellitus uncontrolled with hyperglycemia, present on admission Severe dehydration with acute kidney injury present on admission, secondary to above Chronic hypoxic respiratory failure, chronically wears 4 L outpatient Asthma, not in exacerbation Gait dysfunction with immobility History of recurrent pneumonia History of lupus on treatment Morbid obesity with a BMI of 49.6 Discharge disposition Patient is being discharged in a stable condition with guarded prognosis to [facility]. Patient will follow-up with Dr. Mckenzie in the outpatient setting upon discharge. Patient is to also follow-up with orthopedics and nephrology outpatient as scheduled. Patient will continue on Vfend for the next 3 days and instructed to hold primidone, Atarax, Vistaril while taking this medication. Total time taken is greater than 35 minutes. Hospital course This is a 56-year-old female who was recently admitted with falling with difficulty ambulating and immobile unable to get up presented to are and evaluated and had a left femur fracture and was being closely monitored. Patient underwent orthopedic intervention also having fevers and generalized weakness found to have an acute UTI with urine culture showing resistant Klebsiella and also an elevated pro-calcitonin. Patient was maintained on IV cefepime and we'll transition to Vfend twice daily for the next 3 days to complete the course. Patient continues to be extremely weak seen by physical therapy recommending rehab and patient is agreeable. Patient will need follow- up with consultations outpatient including nephrology and orthopedics. Recommend close monitoring of blood sugars with Accu-Cheks before meals and at bedtime and as needing and use current medication as mentioned below. Patient has been cleared by consultations for discharge and will be going to rehab today. Patient chronically wears 4 L via nasal cannula and also encourage the patient continue using incentive spirometer at least 10 times every hour while awake. Patient needs encouragement with mobility. Encouraged oral intake with heart healthy diabetic diet and increased activity as tolerated. Currently no reports of chest pain, shortness of breath, or palpitations. Patient is afebrile. No reports of nausea or vomiting and patient is tolerating diet. Patient will be going to [facility] [place] today. guarded prognosis as patient is high risk for readmission Physical exam: Gen: This is a 56-year-old female who is awake, alert and oriented 3, well- developed, well-nourished, morbidly obese HEENT: Head is atraumatic, normocephalic. Pupils equal, round. Sclerae is anicteric. NECK: Supple. No JVD. No lymphadenopathy. No thyromegaly. LUNGS: Diminished breath sounds bilaterally with some scattered rhonchi. No intercostal retractions. HEART: S1, S2 are muffled ABDOMEN: Soft. Obese Bowel sounds are present. No masses. No tenderness. EXTREMITIES: No pedal edema. No calf tenderness. Left hip with no increasing swelling or erythema noted NEUROLOGICAL: Patient is awake, alert and oriented x3. Cranial nerves 2 through 12 are grossly intact. Diffusely weak Please refer to medication reconciliation sheet for a list of medications. The impression and plan of care has been dictated by Fabienne Fortune, Nurse Practitioner as directed. Dr. Karsten MD I have performed a history and examination and MDM of this patient, discussed the same with the dictator, and agree with the dictator's assessment and plan as written ,documented as a scribe. Based on total visit time, I have performed more than 50% of the visit. Patient Condition at Discharge: Fair Plan - Discharge Summary New Discharge Prescriptions: New Aspirin 81 mg PO BID tab Insulin Detemir (Levemir) [Levemir] 10 unit SQ BID@0700,2100 each Sodium Zirconium Cyclosilicate [Lokelma] 10 gm PO DAILY 7 Days #7 packet Primidone [Mysoline] 50 mg PO HS tab INSULIN ASPART (NovoLOG) [NovoLOG (formulary)] 2 unit SQ AC-TID each INSULIN ASPART (NovoLOG) [NovoLOG (formulary)] 0 unit SQ ACHS each Midodrine [ProAmatine] 10 mg PO AC-TID tab Sennosides-Docusate Sodium [Senokot-S] 2 each PO HS tab Metoprolol Succinate (ER) [Toprol XL] 75 mg PO DAILY tab Voriconazole [Vfend] 200 mg PO Q12HR 3 Days #6 tab LORazepam [Ativan] 1 mg PO Q6HR PRN #3 tab PRN Reason: Anxiety Heparin Sodium,Porcine [Heparin Sodium] 5,000 unit SQ Q12HR #60 each Gabapentin [Neurontin] 600 mg PO BID #4 cap HYDROcodone/APAP 5-325MG [[place] 5-325] 1 each PO Q6HR PRN #6 tab PRN Reason: Pain Scale 1 To 5 Acetaminophen Tab [Tylenol] 650 mg PO Q6HR PRN tab PRN Reason: Fever And/ Or Pain Ferrous Sulfate [Iron (65 MG Elemental)] 325 mg PO DAILY #30 tab Continue Montelukast [Singulair] 10 mg PO DAILY gemfibroziL [Lopid] 600 tab PO BID FLUoxetine HCL [PROzac] 20 mg PO BID Albuterol Inhaler [Ventolin Hfa Inhaler] 2 puff INHALATION RT-Q4H PRN PRN Reason: Shortness Of Breath Albuterol Nebulized [Ventolin Nebulized] 2.5 mg INHALATION RT-QID PRN PRN Reason: Shortness Of Breath INSULIN ASPART (NovoLOG) [NovoLOG (formulary)] See Protocol SQ ACHS 30 Days #1 each allopurinoL [Zyloprim] 100 mg PO BID Pantoprazole [Protonix] 40 mg PO BID Ondansetron [Zofran] 4 mg PO Q12HR PRN PRN Reason: Nausea Atorvastatin [Lipitor] 10 mg PO HS Fluticasone/Vilanterol [Breo Ellipta 200-25 Mcg Inhaler] 1 inhalation INHALATION BID 30 Days #1 each Discontinued Glimepiride [Amaryl] 4 mg PO BID Gabapentin [Neurontin] 600 mg PO BID hydrOXYzine HCL [Atarax] 25 mg PO QID Hydroxychloroquine Sulfate [Plaquenil] 200 mg PO BID Primidone [Mysoline] 50 mg PO HS Furosemide [Lasix] 80 mg PO DAILY Metoprolol Succinate (ER) [Toprol XL] 50 mg PO DAILY Aspirin EC [Ecotrin] 325 mg PO DAILY Metoprolol Succinate (ER) [Toprol XL] 25 mg PO DAILY Insulin Detemir (Levemir) [Levemir] 35 unit SQ HS 30 Days #1 each Discharge Medication List FLUoxetine HCL [PROzac] 20 mg PO BID 01/09/17 [History] Montelukast [Singulair] 10 mg PO DAILY 01/09/17 [History] gemfibroziL [Lopid] 600 tab PO BID 01/09/17 [History] Albuterol Inhaler [Ventolin Hfa Inhaler] 2 puff INHALATION RT-Q4H PRN 01/14/17 [History] Albuterol Nebulized [Ventolin Nebulized] 2.5 mg INHALATION RT-QID PRN 01/14/17 [History] allopurinoL [Zyloprim] 100 mg PO BID 01/21/22 [History] Atorvastatin [Lipitor] 10 mg PO HS 02/15/22 [History] Ondansetron [Zofran] 4 mg PO Q12HR PRN 02/15/22 [History] Pantoprazole [Protonix] 40 mg PO BID 02/15/22 [History] INSULIN ASPART (NovoLOG) [NovoLOG (formulary)] See Protocol SQ ACHS 30 Days #1 each 02/19/22 [Rx] Fluticasone/Vilanterol [Breo Ellipta 200-25 Mcg Inhaler] 1 inhalation INHALATION BID 30 Days #1 each 02/24/22 [Rx] Acetaminophen Tab [Tylenol] 650 mg PO Q6HR PRN tab 03/28/22 [Rx] Aspirin 81 mg PO BID tab 03/28/22 [Rx] Ferrous Sulfate [Iron (65 MG Elemental)] 325 mg PO DAILY #30 tab 03/28/22 [Rx] Gabapentin [Neurontin] 600 mg PO BID #4 cap 03/28/22 [Rx] HYDROcodone/APAP 5-325MG [[place] 5-325] 1 each PO Q6HR PRN #6 tab 03/28/22 [Rx] Heparin Sodium,Porcine [Heparin Sodium] 5,000 unit SQ Q12HR #60 each 03/28/22 [Rx] INSULIN ASPART (NovoLOG) [NovoLOG (formulary)] 0 unit SQ ACHS each 03/28/22 [Rx] INSULIN ASPART (NovoLOG) [NovoLOG (formulary)] 2 unit SQ AC-TID each 03/28/22 [Rx] Insulin Detemir (Levemir) [Levemir] 10 unit SQ BID@0700,2100 each 03/28/22 [Rx] LORazepam [Ativan] 1 mg PO Q6HR PRN #3 tab 03/28/22 [Rx] Metoprolol Succinate (ER) [Toprol XL] 75 mg PO DAILY tab 03/28/22 [Rx] Midodrine [ProAmatine] 10 mg PO AC-TID tab 03/28/22 [Rx] Primidone [Mysoline] 50 mg PO HS tab 03/28/22 [Rx] Sennosides-Docusate Sodium [Senokot-S] 2 each PO HS tab 03/28/22 [Rx] Sodium Zirconium Cyclosilicate [Lokelma] 10 gm PO DAILY 7 Days #7 packet 03/28/22 [Rx] Voriconazole [Vfend] 200 mg PO Q12HR 3 Days #6 tab 03/28/22 [Rx] Follow up Appointment(s)/Referral(s): [facility], [NON-STAFF] - 1 Week Fela Alicea MD [Primary Care Provider] - 1-2 days Patient Instructions/Handouts: Fall Prevention for Older Adults (ED) Activity/Diet/Wound Care/Special Instructions: Patient is going to [facility] on the [place] Activity as tolerated Continue taking antibiotics in the form of Vfend twice daily for the next 3 days and then may discontinue Continue holding Atarax, primidone, Vistaril while taking Vfend Recommend repeat labs of CBC, BMP, magnesium in 2-3 days Patient will need follow-up with nephrology and her oncologist/geologist outpatient Follow-up with orthopedics outpatient Discharge Disposition: TRANSFER TO SNF/ECF
--- NOTE | 2022-03-28 16:09 | P.PN ---
Subjective Progress Note Date: 03/28/22 Principal diagnosis: Fever and urinary tract infection Patient is a 56-year-old female initially presenting to the hospital after the patient did have a fall patient did have a pain to the left leg area and she was noticed to have a nondisplaced subtrochanteric femoral fracture in this patient was status post surgical repair of the fracture patient noticed to have a fever and elevated white count and positive UA concerning for UTI. On today's evaluation that is 03/28/2022 the patient denies any fever or chills, the patient is breathing comfortably on 4 L nasal cannula oxygen, the patient denies any chest pain or shortness of breath, the patient did have occasional dry cough no nausea no vomiting no abdominal pain no diarrhea has been reported pain to the left hip is currently controlled Objective - Vital Signs Vital signs: Vital Signs Temp 97.5 F L 03/28/22 04:00 Pulse 88 03/28/22 08:14 Resp 18 03/28/22 04:00 BP 120/74 03/28/22 04:00 Pulse Ox 96 03/28/22 08:07 FiO2 Intake & Output 03/27/22 03/28/22 03/28/22 18:59 06:59 18:59 Intake Total 1100 358 Output Total 293 Balance 1100 -293 358 Intake: IV 20 Invasive Line 5 20 Oral 1080 358 Output: Post Void Residual 293 Other: Voiding Method External Catheter External Catheter # Voids 1 - Exam GENERAL DESCRIPTION: Middle-age female lying in bed in no distress RESPIRATORY SYSTEM: Unlabored breathing , decreased breath sounds at bases HEART: S1 S2 regular rate and rhythm , ABDOMEN: Soft , no tenderness EXTREMITIES: Left hip surgical site is currently dressed no drainage on the dressing or surrounding redness - Labs CBC & Chem 7: 03/27/22 12:28 03/27/22 11:06 Labs: Abnormal Lab Results - Last 24 Hours (Table) 03/27/22 03/27/22 03/27/22 Range/Units 06:30 11:06 11:37 WBC (3.8-10.6) k/uL RBC (3.80-5.40) m/uL Hgb (11.4-16.0) gm/dL Hct (34.0-46.0) % RDW (11.5-15.5) % Neutrophils # (Manual) (1.3-7.7) k/uL Monocytes # (Manual) (0-1.0) k/uL Metamyelocytes # (Man) (0) k/uL Myelocytes # (Manual) (0) k/uL Nucleated RBCs (0-0) /100 WBC BUN 64 H (7-17) mg/dL Creatinine 2.31 H (0.52-1.04) mg/dL Glucose 117 H (74-99) mg/dL POC Glucose (mg/dL) 111 H (70-110) mg/dL C-Reactive Protein 1.9 H (<1.0) mg/dL Urine Appearance Cloudy H (Clear) Urine Protein 1+ H (Negative) Urine Blood Moderate H (Negative) Ur Leukocyte Esterase Large H (Negative) Urine RBC 52 H (0-5) /hpf Urine WBC 29 H (0-5) /hpf Ur Squamous Epith Cells 7 H (0-4) /hpf Urine Bacteria Occasional H (None) /hpf Urine Mucus Rare H (None) /hpf Urine Yeast (Budding) Many H (None) /hpf 03/27/22 03/27/22 03/27/22 Range/Units 12:28 16:36 16:51 WBC 16.5 H (3.8-10.6) k/uL RBC 2.95 L (3.80-5.40) m/uL Hgb 8.5 L (11.4-16.0) gm/dL Hct 26.5 L (34.0-46.0) % RDW 16.0 H (11.5-15.5) % Neutrophils # (Manual) 10.70 H (1.3-7.7) k/uL Monocytes # (Manual) 1.65 H (0-1.0) k/uL Metamyelocytes # (Man) 0.17 H (0) k/uL Myelocytes # (Manual) 0.17 H (0) k/uL Nucleated RBCs 2 H (0-0) /100 WBC BUN (7-17) mg/dL Creatinine (0.52-1.04) mg/dL Glucose (74-99) mg/dL POC Glucose (mg/dL) 57 L 63 L (70-110) mg/dL C-Reactive Protein (<1.0) mg/dL Urine Appearance (Clear) Urine Protein (Negative) Urine Blood (Negative) Ur Leukocyte Esterase (Negative) Urine RBC (0-5) /hpf Urine WBC (0-5) /hpf Ur Squamous Epith Cells (0-4) /hpf Urine Bacteria (None) /hpf Urine Mucus (None) /hpf Urine Yeast (Budding) (None) /hpf 03/27/22 03/27/22 03/28/22 Range/Units 17:05 20:17 05:56 WBC (3.8-10.6) k/uL RBC (3.80-5.40) m/uL Hgb (11.4-16.0) gm/dL Hct (34.0-46.0) % RDW (11.5-15.5) % Neutrophils # (Manual) (1.3-7.7) k/uL Monocytes # (Manual) (0-1.0) k/uL Metamyelocytes # (Man) (0) k/uL Myelocytes # (Manual) (0) k/uL Nucleated RBCs (0-0) /100 WBC BUN (7-17) mg/dL Creatinine (0.52-1.04) mg/dL Glucose (74-99) mg/dL POC Glucose (mg/dL) 63 L 112 H 157 H (70-110) mg/dL C-Reactive Protein (<1.0) mg/dL Urine Appearance (Clear) Urine Protein (Negative) Urine Blood (Negative) Ur Leukocyte Esterase (Negative) Urine RBC (0-5) /hpf Urine WBC (0-5) /hpf Ur Squamous Epith Cells (0-4) /hpf Urine Bacteria (None) /hpf Urine Mucus (None) /hpf Urine Yeast (Budding) (None) /hpf Microbiology - Last 24 Hours (Table) 03/27/22 06:30 Urine Culture - Preliminary Urine,Voided Assessment and Plan (1) Urinary tract bacterial infections Current Visit: Yes Status: Acute Code(s): N39.0 - URINARY TRACT INFECTION, SITE NOT SPECIFIED; A49.9 - BACTERIAL INFECTION, UNSPECIFIED SNOMED Code(s): 382033110 Plan: 1patient with a fever in this patient presented to the hospital after a fall with left femoral fracture s/p operative repair patient did have a positive UA concerning for a UTI with last urine culture done did grew out drug-resistant Klebsiella 2patient did have elevated CRP and procalcitonin. 3the patient urine did grow drug-resistant Klebsiella sensitive to cefepime and is also growing Shelly glabrata 4-patient repeat UA finally done did shows significant yeast more likely shelly glabrata with a culture still pending, patient to continue with Voriconazole recommending a short course 3-5 days on discharge and holding the medication that is interacting with voriconazole Time with Patient: Less than 30
[2022-03-28 16:17] VITALS: PULSE 77
--- NOTE | 2022-03-29 08:06 | CDI ---
Documentation Clarification Form Date: 03/22/2022 03:06:39 PM From: Bettina Damico RN CCDS Admit Date: 03/20/2022 09:24:00 AM Patient Name: Tamela Diaz Visit Number: [id number] Discharge Date: ATTENTION: The Clinical Documentation Specialists (CDI) and [facility] Coding Staff appreciate your assistance in clarifying documentation. Please respond to the clarification below the line at the bottom and electronically sign. The CDI & [facility] Coding staff will review the response and follow-up if needed. Please note: Queries are made part of the Legal Health Record. If you have any questions, please contact the author of this message via ITS. Dr. Yakov Hodge Transient Postoperative Hypotension is documented in the 03/22, Insurance Collector note. Additional clarification regarding this diagnosis is requested. History/Risk Factors: 56-year-old female presents to the ED after a fall on her buttocks with left hip fracture. Medical History: CKD 3b, DM2, RA, 4L nasal cannula chronic respiratory failure and Endometrial cancer. Clinical Indicators: VS: 03/19 11:40 B/P 81/43; HR 107; Temp 97.6 F Oral; RR 16; SpO2 100% 4L nasal cannula 03/19 18:46 B/P 73/42; HR 100; Temp 97.6 F Oral; RR 16; SpO2 95% 4L nasal cannula 03/20 00:00 B/P 74/45; HR 97; Temp 98.1 F Oral; RR 16; SpO2 95% 4L nasal cannula 03/20 16:00 B/P 98/64; HR 96; Temp 97.6 F Oral; RR 17; SpO2 94% 4L nasal cannula LABS: 03/17 10.7; 03/18 9.7; 03/19 8.9; 03/20 8.8; 03/21 8.2 Procedure, 03/18: Fixation of left subtrochanteric femur fracture with long cephalon-medullary nail. Estimated blood loss 200. Gynecology consult, 03/19: Postmenopausal bleeding; While in OR, a significant amount of vaginal bleeding was noted. Patient will continue to have vaginal bleeding off and on until she undergoes treatment with Radiation Oncology. Transfuse 1unit for Hgb below 7. Treatment: Daily CBC; 03/19 - 03/19 Midodrine 5mg PO AC TID (one dose administered) 03/20 03/22 Midodrine 10mg PO AC TID; 03/17 0.9NS 1.5 L IV bolus; 03/18 0.9NS 75cc/hr; 03/18 0.9NS 800cc IV; 0.9NS 100cc IV; 01/17 0.9NS 1.5L IV bolus. Can the Transient postoperative hypotension be further specified? [ ] Hypotension secondary to acute blood loss anemia [ ] Hypotension secondary to procedure [ ] Hypotension due to other etiology (please specify) [ ] Other Condition, please specify [ x ] Unable to determine (Template Last Revised: June 2020) MTDD
--- NOTE | 2022-04-02 07:43 | CDI ---
Documentation Clarification Form Date: 03/22/2022 03:06:39 PM From: Bettina Damico RN CCDS Admit Date: 03/20/2022 09:24:00 AM Patient Name: Tamela Diaz Visit Number: [id number] Discharge Date: ATTENTION: The Clinical Documentation Specialists (CDI) and [facility] Coding Staff appreciate your assistance in clarifying documentation. Please respond to the clarification below the line at the bottom and electronically sign. The CDI & [facility] Coding staff will review the response and follow-up if needed. Please note: Queries are made part of the Legal Health Record. If you have any questions, please contact the author of this message via ITS. Dr. Yakov Hodge Transient Postoperative Hypotension is documented in the 03/22, Ecological Modeler note. Additional clarification regarding this diagnosis is requested. History/Risk Factors: 56-year-old female presents to the ED after a fall on her buttocks with left hip fracture. Medical History: CKD 3b, DM2, RA, 4L nasal cannula chronic respiratory failure and Endometrial cancer. Clinical Indicators: VS: 03/19 11:40 B/P 81/43; HR 107; Temp 97.6 F Oral; RR 16; SpO2 100% 4L nasal cannula 03/19 18:46 B/P 73/42; HR 100; Temp 97.6 F Oral; RR 16; SpO2 95% 4L nasal cannula 03/20 00:00 B/P 74/45; HR 97; Temp 98.1 F Oral; RR 16; SpO2 95% 4L nasal cannula 03/20 16:00 B/P 98/64; HR 96; Temp 97.6 F Oral; RR 17; SpO2 94% 4L nasal cannula LABS: 03/17 10.7; 03/18 9.7; 03/19 8.9; 03/20 8.8; 03/21 8.2 Procedure, 03/18: Fixation of left subtrochanteric femur fracture with long cephalon-medullary nail. Estimated blood loss 200. Gynecology consult, 03/19: Postmenopausal bleeding; While in OR, a significant amount of vaginal bleeding was noted. Patient will continue to have vaginal bleeding off and on until she undergoes treatment with Radiation Oncology. Transfuse 1unit for Hgb below 7. Treatment: Daily CBC; 03/19 - 03/19 Midodrine 5mg PO AC TID (one dose administered) 03/20 03/22 Midodrine 10mg PO AC TID; 03/17 0.9NS 1.5 L IV bolus; 03/18 0.9NS 75cc/hr; 03/18 0.9NS 800cc IV; 0.9NS 100cc IV; 01/17 0.9NS 1.5L IV bolus. Can the Transient postoperative hypotension be further specified? [ ] Hypotension secondary to acute blood loss anemia [ ] Hypotension secondary to procedure [ ] Hypotension due to other etiology (please specify) [ ] Other Condition, please specify [ ] Unable to determine (Template Last Revised: June 2020) MTDD
--- NOTE | 2022-04-03 12:49 | CDI ---
Documentation Clarification Form Date: 03/22/2022 03:06:39 PM From: Bettina Damico RN CCDS Admit Date: 03/20/2022 09:24:00 AM Patient Name: Tamela Diaz Visit Number: [id number] Discharge Date: ATTENTION: The Clinical Documentation Specialists (CDI) and [facility] Coding Staff appreciate your assistance in clarifying documentation. Please respond to the clarification below the line at the bottom and electronically sign. The CDI & [facility] Coding staff will review the response and follow-up if needed. Please note: Queries are made part of the Legal Health Record. If you have any questions, please contact the author of this message via ITS. Dr. Yakov Hodge Transient Postoperative Hypotension is documented in the 03/22, Policy Analyst note. Additional clarification regarding this diagnosis is requested. History/Risk Factors: 56-year-old female presents to the ED after a fall on her buttocks with left hip fracture. Medical History: CKD 3b, DM2, RA, 4L nasal cannula chronic respiratory failure and Endometrial cancer. Clinical Indicators: VS: 03/19 11:40 B/P 81/43; HR 107; Temp 97.6 F Oral; RR 16; SpO2 100% 4L nasal cannula 03/19 18:46 B/P 73/42; HR 100; Temp 97.6 F Oral; RR 16; SpO2 95% 4L nasal cannula 03/20 00:00 B/P 74/45; HR 97; Temp 98.1 F Oral; RR 16; SpO2 95% 4L nasal cannula 03/20 16:00 B/P 98/64; HR 96; Temp 97.6 F Oral; RR 17; SpO2 94% 4L nasal cannula LABS: 03/17 10.7; 03/18 9.7; 03/19 8.9; 03/20 8.8; 03/21 8.2 Procedure, 03/18: Fixation of left subtrochanteric femur fracture with long cephalon-medullary nail. Estimated blood loss 200. Gynecology consult, 03/19: Postmenopausal bleeding; While in OR, a significant amount of vaginal bleeding was noted. Patient will continue to have vaginal bleeding off and on until she undergoes treatment with Radiation Oncology. Transfuse 1unit for Hgb below 7. Treatment: Daily CBC; 03/19 - 03/19 Midodrine 5mg PO AC TID (one dose administered) 03/20 03/22 Midodrine 10mg PO AC TID; 03/17 0.9NS 1.5 L IV bolus; 03/18 0.9NS 75cc/hr; 03/18 0.9NS 800cc IV; 0.9NS 100cc IV; 01/17 0.9NS 1.5L IV bolus. Can the Transient postoperative hypotension be further specified? [ ] Hypotension secondary to acute blood loss anemia [ ] Hypotension secondary to procedure [ ] Hypotension due to other etiology (please specify) [ ] Other Condition, please specify [ ] Unable to determine (Template Last Revised: June 2020) MTDD
--- NOTE | 2022-04-05 09:05 | CDI ---
Documentation Clarification Form Date: 03/22/2022 03:06:00 PM From: Bettina Damico Admit Date: 03/20/2022 09:24:00 AM Patient Name: Tamela Diaz Visit Number: [id number] Discharge Date: 03/28/2022 06:00:00 PM ATTENTION: The Clinical Documentation Specialists (CDI) and [facility] Coding Staff appreciate your assistance in clarifying documentation. Please respond to the clarification below the line at the bottom and electronically sign. The CDI & [facility] Coding staff will review the response and follow-up if needed. Please note: Queries are made part of the Legal Health Record. If you have any questions, please contact the author of this message via ITS. Dr. Yakov Hodge Transient Postoperative Hypotension is documented in the 03/22, Barrel [facility]er note. Additional clarification regarding this diagnosis is requested. History/Risk Factors: 56-year-old female presents to the ED after a fall on her buttocks with left hip fracture. Medical History: CKD 3b, DM2, RA, 4L nasal cannula chronic respiratory failure and Endometrial cancer. Clinical Indicators: VS: 03/19 11:40 B/P 81/43; HR 107; Temp 97.6 F Oral; RR 16; SpO2 100% 4L nasal cannula 03/19 18:46 B/P 73/42; HR 100; Temp 97.6 F Oral; RR 16; SpO2 95% 4L nasal cannula 03/20 00:00 B/P 74/45; HR 97; Temp 98.1 F Oral; RR 16; SpO2 95% 4L nasal cannula 03/20 16:00 B/P 98/64; HR 96; Temp 97.6 F Oral; RR 17; SpO2 94% 4L nasal cannula LABS: 03/17 10.7; 03/18 9.7; 03/19 8.9; 03/20 8.8; 03/21 8.2 Procedure, 03/18: Fixation of left subtrochanteric femur fracture with long cephalon-medullary nail. Estimated blood loss 200. Gynecology consult, 03/19: Postmenopausal bleeding; While in OR, a significant amount of vaginal bleeding was noted. Patient will continue to have vaginal bleeding off and on until she undergoes treatment with Radiation Oncology. Transfuse 1unit for Hgb below 7. Treatment: Daily CBC; 03/19 - 03/19 Midodrine 5mg PO AC TID (one dose administered) 03/20 03/22 Midodrine 10mg PO AC TID; 03/17 0.9NS 1.5 L IV bolus; 03/18 0.9NS 75cc/hr; 03/18 0.9NS 800cc IV; 0.9NS 100cc IV; 01/17 0.9NS 1.5L IV bolus. Can the Transient postoperative hypotension be further specified? [ ] Hypotension secondary to acute blood loss anemia [ ] Hypotension secondary to procedure [ ] Hypotension due to other etiology (please specify) [ ] Other Condition, please specify [ ] Unable to determine (Template Last Revised: June 2020) MTDD
== END 2022-03-28 18:00 | DRG 481 ==
LOC: EC 22:40 → 5NMEDONC 03-17 01:56 → 3SCARD 03-19 21:43 → OBSVTOIN 03-20 09:24
PROVIDERS: ADMIT Hospitalist; ATTEND Hospitalist
PROC: 0QS704Z Reposition Left Upper Femur with Internal Fixation Device, Open Approach (ICD-10-PCS; principal; 2022-03-18 11:05)
PROC: 05HF33Z Insertion of Infusion Device into Left Cephalic Vein, Percutaneous Approach (ICD-10-PCS; 2022-03-21)
PROC: 05HB33Z Insertion of Infusion Device into Right Basilic Vein, Percutaneous Approach (ICD-10-PCS; 2022-03-27 08:35)
DX: S72.25XA Nondisplaced subtrochanteric fracture of left femur, initial encounter for closed fracture (principal); B37.49 Other urogenital candidiasis; T80.1XXA Vascular complications following infusion, transfusion and therapeutic injection, initial encounter; Z68.43 Body mass index [BMI] 50.0-59.9, adult; N17.9 Acute kidney failure, unspecified; E87.20 Acidosis, unspecified; I13.0 Hypertensive heart and chronic kidney disease with heart failure and stage 1 through stage 4 chronic kidney disease, or unspecified chronic kidney disease; J96.11 Chronic respiratory failure with hypoxia; E66.2 Morbid (severe) obesity with alveolar hypoventilation; E87.1 Hypo-osmolality and hyponatremia; Z16.24 Resistance to multiple antibiotics; D63.1 Anemia in chronic kidney disease; E11.22 Type 2 diabetes mellitus with diabetic chronic kidney disease; M32.9 Systemic lupus erythematosus, unspecified; E11.42 Type 2 diabetes mellitus with diabetic polyneuropathy; I50.9 Heart failure, unspecified; N18.32 Chronic kidney disease, stage 3b; M06.9 Rheumatoid arthritis, unspecified; E05.00 Thyrotoxicosis with diffuse goiter without thyrotoxic crisis or storm; E03.9 Hypothyroidism, unspecified; C54.1 Malignant neoplasm of endometrium; I80.8 Phlebitis and thrombophlebitis of other sites; Z99.81 Dependence on supplemental oxygen; I95.9 Hypotension, unspecified; E87.5 Hyperkalemia; N95.0 Postmenopausal bleeding; E86.0 Dehydration; R00.0 Tachycardia, unspecified; E86.1 Hypovolemia; B96.1 Klebsiella pneumoniae [K. pneumoniae] as the cause of diseases classified elsewhere; R79.82 Elevated C-reactive protein (CRP); E61.1 Iron deficiency; E78.00 Pure hypercholesterolemia, unspecified; R31.9 Hematuria, unspecified; W08.XXXA Fall from other furniture, initial encounter; Y92.009 Unspecified place in unspecified non-institutional (private) residence as the place of occurrence of the external cause; Y71.1 Therapeutic (nonsurgical) and rehabilitative cardiovascular devices associated with adverse incidents; Z85.6 Personal history of leukemia; Z85.43 Personal history of malignant neoplasm of ovary; Z85.41 Personal history of malignant neoplasm of cervix uteri; Z85.42 Personal history of malignant neoplasm of other parts of uterus; Z86.16 Personal history of COVID-19; Z86.718 Personal history of other venous thrombosis and embolism; Z87.01 Personal history of pneumonia (recurrent); Z79.899 Other long term (current) drug therapy; Z79.891 Long term (current) use of opiate analgesic; Z79.84 Long term (current) use of oral hypoglycemic drugs; Z79.82 Long term (current) use of aspirin; Z79.4 Long term (current) use of insulin; Z88.8 Allergy status to other drugs, medicaments and biological substances; Z91.041 Radiographic dye allergy status; Z91.02 Food additives allergy status; Z88.1 Allergy status to other antibiotic agents; Z88.5 Allergy status to narcotic agent; Z88.2 Allergy status to sulfonamides; Z88.7 Allergy status to serum and vaccine; Z28.310 Unvaccinated for COVID-19
CPT/HCPCS: 36410; 71045; 73502; 76770; 76937; 80048; 80053; 81001; 82533; 82728; 83036; 83540; 83550; 83735; 84100; 84132; 84145; 85025; 86140; 87040; 87077; 87086; 87186; 93970; 94640; 94760; 96361; 96372; 96374; 99285

== ENCOUNTER 2022-04-02 15:12 | Inpatient (IN) | payer MEDICARE ==
[2022-04-02] MEDS ORDERED: HYDROmorphone 0.5 MG/0.5 ML SYRINGE IVP STA (16:10)
[2022-04-02] MEDS ORDERED: HEPARIN SODIUM 1,000 UN/ML (10ML VL) IV ONE (16:10)
[2022-04-02] MEDS ORDERED: LORazepam 2 MG/ML INJ IV STA (16:23)
[2022-04-02] MEDS: HEPARIN SOD,PORK IN 0.45% NACL 25,000 UNIT in 0.45% NACL 1 250ML.BAG IV SCH (16:40)
[2022-04-02 16:48] LABS: Albumin 3.3 g/dL (3.5-5.0); Anisocytosis Slight; Basophils # (A) 0.1 k/uL (0-0.2); Basophils % (A) 1 %; Calcium 8.7 mg/dL (8.4-10.2); Eosinophils # (A) 0.3 k/uL (0-0.7); Eosinophils % (A) 4 %; HCT 29.3 % (34.0-46.0); HGB 8.9 gm/dL (11.4-16.0); Hypochromasia Marked; Lymphocytes # (A) 1.5 k/uL (1.0-4.8); Lymphocytes % (A) 18 %; MCH 27.7 pg (25.0-35.0); MCHC 30.2 g/dL (31.0-37.0); MCV 91.8 fL (80.0-100.0); Monocytes # (A) 0.4 k/uL (0-1.0); Monocytes % (A) 5 %; Neutrophils # (A) 5.7 k/uL (1.3-7.7); Neutrophils % (A) 71 %; Platelet Count 312 k/uL (150-450); RDW 16.2 % (11.5-15.5); Total Bilirubin 0.5 mg/dL (0.2-1.3); WBC 8.1 k/uL (3.8-10.6)
[2022-04-02 17:02] LABS: INR 1.1 (<1.2); Partial Thromboplastin Time 22.1 sec (22.0-30.0); Prothrombin Time 11.1 sec (9.0-12.0)
--- NOTE | 2022-04-02 17:02 | ED ---
General Adult HPI - General Chief complaint: Shortness of Breath Stated complaint: DVT Time Seen by Provider: 04/02/22 15:20 Source: patient, EMS, RN notes reviewed, old records reviewed Mode of arrival: EMS Limitations: no limitations - History of Present Illness Initial comments: This is a 56-year-old female presents emergency Department having a blood clot in her right internal carotid right subclavian and right axillary vein. Patient had surgery recently was sent to the halfway for rehabilitation when her arm became swollen and ultrasound was done today. Patient also has kidney disease. Patient also has an ALLERGY to iodine. Patient comes in complaining about her arm pain but also complains about some difficulty breathing. Patient is denying any chest pain or palpitations. Patient denies any fever chills. Patient denies abdominal pain patient denies any nausea vomiting. - Related Data Home Medications Medication Instructions Recorded Confirmed FLUoxetine HCL [PROzac] 20 mg PO BID@0900,2100 01/09/17 04/02/22 Montelukast [Singulair] 10 mg PO DAILY 01/09/17 04/02/22 gemfibroziL [Lopid] 600 tab PO BID 01/09/17 04/02/22 Albuterol Inhaler [Ventolin Hfa 2 puff INHALATION RT-Q4H PRN 01/14/17 04/02/22 Inhaler] Albuterol Nebulized [Ventolin 2.5 mg INHALATION RT-QID PRN 01/14/17 04/02/22 Nebulized] allopurinoL [Zyloprim] 100 mg PO BID 01/21/22 04/02/22 Atorvastatin [Lipitor] 10 mg PO HS 02/15/22 04/02/22 Ondansetron [Zofran] 4 mg PO Q12HR PRN 02/15/22 04/02/22 Pantoprazole [Protonix] 40 mg PO BID@0600,2100 02/15/22 04/02/22 Fluticasone/Vilanterol [Breo 1 puff INHALATION RT-BID 04/02/22 04/02/22 Ellipta 200-25 Mcg Inhaler] Gabapentin [Gralise] 600 mg PO BID 04/02/22 04/02/22 HYDROcodone/APAP 5-325MG [[place] 1 tab PO Q6HR PRN 04/02/22 04/02/22 5-325] Insulin Glargine-Yfgn [Semglee 10 unit SQ BID@0900,1700 04/02/22 04/02/22 (Yfgn) Pen] Insulin Lispro [humaLOG Kwikpen] 2 units SQ TID@0700,1100,1600 04/02/22 04/02/22 Insulin Lispro [humaLOG Kwikpen] See Protocol SQ DIRECTED 04/02/22 04/02/22 Midodrine HCl [ProAmatine] 10 mg PO TID@0700,1100,1600 04/02/22 04/02/22 Sennosides-Docusate Sodium 2 tab PO HS 04/02/22 04/02/22 [Senokot-S] Previous Rx's Medication Instructions Recorded Acetaminophen Tab [Tylenol] 650 mg PO Q6HR PRN tab 03/28/22 Aspirin 81 mg PO BID tab 03/28/22 Ferrous Sulfate [Iron (65 MG 325 mg PO DAILY #30 tab 03/28/22 Elemental)] Heparin Sodium,Porcine [Heparin 5,000 unit SQ Q12HR #60 each 03/28/22 Sodium] Metoprolol Succinate (ER) [Toprol 75 mg PO DAILY tab 03/28/22 XL] Primidone [Mysoline] 50 mg PO HS tab 03/28/22 Sodium Zirconium Cyclosilicate 10 gm PO DAILY 7 Days #7 packet 03/28/22 [Lokelma] Allergies Allergy/AdvReac Type Severity Reaction Status Date / Time ciprofloxacin [From Cipro] Allergy Swelling Verified 04/02/22 17:33 diphenhydramine Allergy Swelling Verified 04/02/22 17:33 [From Benadryl] iodine Allergy Swelling Verified 04/02/22 17:33 propoxyphene Allergy Swelling Verified 04/02/22 17:33 [From Darvocet-N] red dye Allergy Swelling Verified 04/02/22 17:33 sulfacetamide Allergy Swelling Verified 04/02/22 17:33 [From Sulfamide] yellow dye Allergy Swelling Verified 04/02/22 17:33 FLU VACCINE? Allergy Unknown Uncoded 04/02/22 15:17 Review of Systems ROS Statement: Those systems with pertinent positive or pertinent negative responses have been documented in the HPI. ROS Other: All systems not noted in ROS Statement are negative. Past Medical History Past Medical History: Cancer, Diabetes Mellitus, Deep Vein Thrombosis (DVT), Hypertension, Renal Disease, Rheumatoid Arthritis (RA), Thyroid Disorder Additional Past Medical History / Comment(s): O2 @ 4L. SLE LUPUS. STAGE 3 KIDNEY DISEASE. Leukemia, GRAVES DZ , kidney stones, gout, ovarian cancer (recent diagnosis, no treatment yet) History of Any Multi-Drug Resistant Organisms: None Reported Past Surgical History: No Surgical Hx Reported Additional Past Surgical History / Comment(s): BILATERAL ARTHROSCOPY KNEES. D & C (MISCARRIAGES). Past Anesthesia/Blood Transfusion Reactions: No Reported Reaction Past Psychological History: Anxiety Smoking Status: Never smoker Past Alcohol Use History: None Reported Past Drug Use History: None Reported - Past Family History Mother Family Medical History: Congestive Heart Failure (CHF), Diabetes Mellitus Father Family Medical History: Congestive Heart Failure (CHF), Dialysis, Hypertension General Exam - General Exam Comments Initial Comments: GENERAL: Patient is well-developed and well-nourished. Patient is nontoxic and well- hydrated and is in mild distress. ENT: Neck is soft and supple. No significant lymphadenopathy is noted. Oropharynx is clear. Moist mucous membranes. Neck has full range of motion without eliciting any pain. EYES: The sclera were anicteric and conjunctiva were pink and moist. Extraocular movements were intact and pupils were equal round and reactive to light. Eyelids were unremarkable. PULMONARY: Unlabored respirations. Good breath sounds bilaterally. No audible rales rhonchi or wheezing was noted. CARDIOVASCULAR: There is a regular rate and rhythm without any murmurs gallops or rubs. ABDOMEN: Soft and nontender with normal bowel sounds. SKIN: Skin is clear with no lesions or rashes and otherwise unremarkable. NEUROLOGIC: Patient is alert and oriented x3. Cranial nerves II through XII are grossly intact. Motor and sensory are also intact. Normal speech, volume and content. Symmetrical smile. MUSCULOSKELETAL: Normal extremities with adequate strength and full range of motion. Right arm is significantly swollen and painful to touch LYMPHATICS: No significant lymphadenopathy is noted PSYCHIATRIC: Normal psychiatric evaluation. Limitations: no limitations Course Vital Signs 04/02/22 04/02/22 04/02/22 15:13 15:23 18:05 Temperature 98.4 F Pulse Rate 73 79 Respiratory 18 20 17 Rate Blood Pressure 155/75 131/80 O2 Sat by Pulse 97 97 Oximetry Medical Decision Making - Medical Decision Making EKG was interpreted by me. EKG shows sinus rhythm at 70 bpm [place] interval 123 QRSs 81 Q-T intervals within 2 QTC is 412. Patient's EKG shows no ST segment elevation or depression. Patient was unable to get a CAT scan because of her kidney function however I did start her high-dose heparin is initiated arrived. Spoke to Dr. Shaikh he was in agreement with this mode of treatment. I spoke with the [facility] agreed to admit the patient admitted the patient I wrote admitting orders. - Lab Data Result diagrams: 04/02/22 15:23 04/02/22 15:23 Lab Results 04/02/22 04/02/22 04/02/22 Range/Units 15:23 15:23 15:23 WBC 8.1 (3.8-10.6) k/uL RBC 3.20 L (3.80-5.40) m/uL Hgb 8.9 L (11.4-16.0) gm/dL Hct 29.3 L (34.0-46.0) % MCV 91.8 (80.0-100.0) fL MCH 27.7 (25.0-35.0) pg MCHC 30.2 L (31.0-37.0) g/dL RDW 16.2 H (11.5-15.5) % Plt Count 312 (150-450) k/uL MPV 9.0 Neutrophils % 71 % Lymphocytes % 18 % Monocytes % 5 % Eosinophils % 4 % Basophils % 1 % Neutrophils # 5.7 (1.3-7.7) k/uL Lymphocytes # 1.5 (1.0-4.8) k/uL Monocytes # 0.4 (0-1.0) k/uL Eosinophils # 0.3 (0-0.7) k/uL Basophils # 0.1 (0-0.2) k/uL Hypochromasia Marked Anisocytosis Slight PT 11.1 (9.0-12.0) sec INR 1.1 (<1.2) APTT 22.1 (22.0-30.0) sec Sodium 141 (137-145) mmol/L Potassium 6.0 H (3.5-5.1) mmol/L Chloride 112 H (98-107) mmol/L Carbon Dioxide 23 (22-30) mmol/L Anion Gap 6 mmol/L BUN 43 H (7-17) mg/dL Creatinine 1.73 H (0.52-1.04) mg/dL Est GFR (CKD-EPI)AfAm 38 (>60 ml/min/1.73 sqM) Est GFR (CKD-EPI)NonAf 33 (>60 ml/min/1.73 sqM) Glucose 156 H (74-99) mg/dL Plasma Lactic Acid Efrain (0.7-2.0) mmol/L Calcium 8.7 (8.4-10.2) mg/dL Total Bilirubin 0.5 (0.2-1.3) mg/dL AST 32 (14-36) U/L ALT 23 (4-34) U/L Alkaline Phosphatase 100 (38-126) U/L Troponin I (0.000-0.034) ng/mL NT-Pro-B Natriuret Pep pg/mL Total Protein 6.0 L (6.3-8.2) g/dL Albumin 3.3 L (3.5-5.0) g/dL 04/02/22 04/02/22 04/02/22 Range/Units 15:23 15:23 15:23 WBC (3.8-10.6) k/uL RBC (3.80-5.40) m/uL Hgb (11.4-16.0) gm/dL Hct (34.0-46.0) % MCV (80.0-100.0) fL MCH (25.0-35.0) pg MCHC (31.0-37.0) g/dL RDW (11.5-15.5) % Plt Count (150-450) k/uL MPV Neutrophils % % Lymphocytes % % Monocytes % % Eosinophils % % Basophils % % Neutrophils # (1.3-7.7) k/uL Lymphocytes # (1.0-4.8) k/uL Monocytes # (0-1.0) k/uL Eosinophils # (0-0.7) k/uL Basophils # (0-0.2) k/uL Hypochromasia Anisocytosis PT (9.0-12.0) sec INR (<1.2) APTT (22.0-30.0) sec Sodium (137-145) mmol/L Potassium (3.5-5.1) mmol/L Chloride (98-107) mmol/L Carbon Dioxide (22-30) mmol/L Anion Gap mmol/L BUN (7-17) mg/dL Creatinine (0.52-1.04) mg/dL Est GFR (CKD-EPI)AfAm (>60 ml/min/1.73 sqM) Est GFR (CKD-EPI)NonAf (>60 ml/min/1.73 sqM) Glucose (74-99) mg/dL Plasma Lactic Acid E[place]rain 0.9 (0.7-2.0) mmol/L Calcium (8.4-10.2) mg/dL Total Bilirubin (0.2-1.3) mg/dL AST (14-36) U/L ALT (4-34) U/L Alkaline Phosphatase (38-126) U/L Troponin I <0.012 (0.000-0.034) ng/mL NT-Pro-B Natriuret Pep 4960 pg/mL Total Protein (6.3-8.2) g/dL Albumin (3.5-5.0) g/dL Critical Care Time Critical Care Time: Yes Total Critical Care Time: 35 Disposition Clinical Impression: DVT of axillary vein, acute right, Thrombosis of subclavian artery, Thrombosis of internal carotid Disposition: ADMITTED IP TO THIS HOSP Referrals: Fela Alicea MD [Primary Care Provider] - 1-2 days Time of Disposition: 19:08
[2022-04-02] MEDS ORDERED: FAMOTIDINE 20 MG/2 ML VIAL IV STA (17:10)
[2022-04-02] MEDS ORDERED: methylPREDNISolone SOD SUCCI 125 MG/2 ML VIAL IV STA (17:10)
[2022-04-02] MEDS ORDERED: ONDANSETRON 4 MG TAB PO PRN (19:12)
[2022-04-02] MEDS ORDERED: ALBUTEROL HFA INHALER INHALATION PRN (19:12)
--- NOTE | 2022-04-02 19:36 | XR ---
EXAMINATION TYPE: XR chest 1V portable DATE OF EXAM: 04/02/2022 CLINICAL HISTORY: Difficulty breathing progress study. History of morbid obesity. TECHNIQUE: Single AP portable upright view of the chest is obtained. COMPARISON: Chest x-ray from 6 days earlier FINDINGS: Exam suboptimal due to patient's large body habitus. Cardiomegaly redemonstrated. Persiste nt right basilar increased opacity. Asymmetric overall increased opacity right lung versus left lung may be products of poor positioning. Osseous structures are intact. IMPRESSION: Cardiomegaly with right lower lung opacity could reflect acute infiltrate and/or atelecta sis redemonstrated. Suboptimal study noted.
[2022-04-02] MEDS ORDERED: ACETAMINOPHEN TAB 325 MG TAB PO PRN (21:02)
[2022-04-02] MEDS: PANTOPRAZOLE 40 MG TABLET PO SCH (22:29)
[2022-04-02] MEDS: ATORVASTATIN 10 MG TAB PO SCH (22:29)
[2022-04-02] MEDS: ALBUTEROL NEBULIZED 2.5 MG/3 ML INHALATION PRN (23:12)
[2022-04-03] MEDS ORDERED: HEPARIN SODIUM 1,000 UN/ML (10ML VL) IV ONE (02:21)
[2022-04-03] MEDS: HYDROcodone/APAP 5-325MG 1 EACH TAB PO PRN ×4 (02:37→23:56)
[2022-04-03] MEDS: HEPARIN SOD,PORK IN 0.45% NACL 25,000 UNIT in 0.45% NACL 1 250ML.BAG IV SCH (03:26)
[2022-04-03] MEDS: PANTOPRAZOLE 40 MG TABLET PO SCH ×2 (05:29→20:10)
[2022-04-03] MEDS: BUDESONIDE 0.5 MG/2 ML NEBU INHALATION SCH ×2 (07:31→20:49)
[2022-04-03] MEDS: ALBUTEROL NEBULIZED 2.5 MG/3 ML INHALATION PRN ×2 (07:31→11:34)
[2022-04-03 07:47] LABS: Glucose,Whole Blood 125 mg/dL (70-110)
[2022-04-03] MEDS: GABAPENTIN 300 MG CAP PO SCH ×2 (09:40→20:09)
[2022-04-03] MEDS: FLUoxetine HCL 20 MG CAP PO SCH ×2 (09:40→20:10)
[2022-04-03] MEDS: ASPIRIN 81 MG PO SCH ×2 (09:40→20:10)
[2022-04-03] MEDS: MONTELUKAST 10 MG TAB PO SCH (09:40)
[2022-04-03] MEDS: METOPROLOL SUCCINATE (ER) 25 MG TAB.ER.24H PO SCH (09:40)
[2022-04-03] MEDS: FENOFIBRATE 160 MG TAB PO SCH ×2 (09:40→20:10)
[2022-04-03] MEDS: FERROUS SULFATE 325 MG TAB PO SCH (09:40)
[2022-04-03] MEDS: allopurinoL 100 MG TAB PO SCH ×2 (09:41→20:10)
[2022-04-03] MEDS: INSULIN DETEMIR (LEVEMIR) 100 UNIT/ML SYR SQ SCH ×2 (09:42→17:54)
[2022-04-03] MEDS: SODIUM ZIRCONIUM CYCLOSILICATE 10 GM PACKET PO SCH (09:42)
[2022-04-03] MEDS: INSULIN ASPART (NovoLOG) 100 UNIT/ML VIAL SQ SCH ×3 (09:43→17:54)
--- NOTE | 2022-04-03 10:23 | US ---
EXAMINATION TYPE: US venous doppler duplex UE BI DATE OF EXAM: 04/03/2022 COMPARISON: US CLINICAL HISTORY: upper extremity swelling. Pt states arm pain, recent abnormal ultrasound SIDE PERFORMED: Bilateral Very difficult and limited exam due to pt position and severe morbid obesity Right Arm: Limited views show Negative for DVT, superficial thrombus within left cephalic and basilic veins. Thrombus was visualized within entire cephalic vein, however was unable to be followed to ju nction of subclavian vein, ulnar veins not visualized due to pt's position and morbid obesity Left Arm: Visualized portions appear negative for DVT, superficial thrombus with left cephalic/ left basilic, axillary, and ulnar veins not visualized due to pt's position and morbid obesity IMPRESSION: No evidence for DVT. SVT noted.
[2022-04-03 11:50] LABS: Glucose,Whole Blood 155 mg/dL (70-110)
--- NOTE | 2022-04-03 12:22 | P.NPCON ---
History of Present Illness - Reason for Consult acute renal failure, chronic renal failure - History of Present Illness Patient is a 56-year-old female is or has a history of CK D stage III be secondary to diabetic kidney disease with baseline creatinine around 1.5 mg/dL. Patient is admitted to the hospital for pain and swelling in her right arm. This started soon after discharge from her last hospitalization on 03/28/2022. The last hospitalization was for left femur fracture, status post surgical r epair on 03/18/2022. Patient also had UTI and developed acute kidney injury which had improved. Serum creatinine had decreased to 2.3 on 03/27/2022. Peak creatinine was at 2.9 mg/dL. Patient has underlying history of endometrial cancer and is scheduled to start treatment as outpatient. Serum creatinine at 1.7 this admission. Patient reports good urine output Blood pressure around 120-1 30 mmHg systolic. Review of Systems As per HPI other systems negative Past Medical History Past Medical History: Cancer, Diabetes Mellitus, Deep Vein Thrombosis (DVT), Hypertension, Renal Disease, Rheumatoid Arthritis (RA), Thyroid Disorder Additional Past Medical History / Comment(s): O2 @ 4L. SLE LUPUS. STAGE 3 KIDNEY DISEASE. Leukemia, GRAVES DZ , kidney stones, gout, ovarian cancer (recent diagnosis, no treatment yet) History of Any Multi-Drug Resistant Organisms: None Reported Past Surgical History: No Surgical Hx Reported Additional Past Surgical History / Comment(s): BILATERAL ARTHROSCOPY KNEES. D & C (MISCARRIAGES). Past Anesthesia/Blood Transfusion Reactions: No Reported Reaction Past Psychological History: Anxiety Smoking Status: Never smoker Past Alcohol Use History: None Reported Past Drug Use History: None Reported - Past Family History Mother Family Medical History: Congestive Heart Failure (CHF), Diabetes Mellitus Father Family Medical History: Congestive Heart Failure (CHF), Dialysis, Hypertension Medications and Allergies Home Medications Medication Instructions Recorded Confirmed Type FLUoxetine HCL [PROzac] 20 mg PO BID@0900,2100 01/09/17 04/02/22 History Montelukast [Singulair] 10 mg PO DAILY 01/09/17 04/02/22 History gemfibroziL [Lopid] 600 tab PO BID 01/09/17 04/02/22 History Albuterol Inhaler [Ventolin Hfa 2 puff INHALATION RT-Q4H PRN 01/14/17 04/02/22 History Inhaler] Albuterol Nebulized [Ventolin 2.5 mg INHALATION RT-QID PRN 01/14/17 04/02/22 History Nebulized] allopurinoL [Zyloprim] 100 mg PO BID 01/21/22 04/02/22 History Atorvastatin [Lipitor] 10 mg PO HS 02/15/22 04/02/22 History Ondansetron [Zofran] 4 mg PO Q12HR PRN 02/15/22 04/02/22 History Pantoprazole [Protonix] 40 mg PO BID@0600,2100 02/15/22 04/02/22 History Acetaminophen Tab [Tylenol] 650 mg PO Q6HR PRN tab 03/28/22 04/02/22 Rx Aspirin 81 mg PO BID tab 03/28/22 04/02/22 Rx Ferrous Sulfate [Iron (65 MG 325 mg PO DAILY #30 tab 03/28/22 04/02/22 Rx Elemental)] Heparin Sodium,Porcine [Heparin 5,000 unit SQ Q12HR #60 each 03/28/22 04/02/22 Rx Sodium] Metoprolol Succinate (ER) [Toprol 75 mg PO DAILY tab 03/28/22 04/02/22 Rx XL] Primidone [Mysoline] 50 mg PO HS tab 03/28/22 04/02/22 Rx Sodium Zirconium Cyclosilicate 10 gm PO DAILY 7 Days #7 packet 03/28/22 04/02/22 Rx [Lokelma] Fluticasone/Vilanterol [Breo 1 puff INHALATION RT-BID 04/02/22 04/02/22 History Ellipta 200-25 Mcg Inhaler] Gabapentin [Gralise] 600 mg PO BID 04/02/22 04/02/22 History HYDROcodone/APAP 5-325MG [[place] 1 tab PO Q6HR PRN 04/02/22 04/02/22 History 5-325] Insulin Glargine-Yfgn [Semglee 10 unit SQ BID@0900,1700 04/02/22 04/02/22 History (Yfgn) Pen] Insulin Lispro [humaLOG Kwikpen] 2 units SQ TID@0700,1100,1600 04/02/22 04/02/22 History Insulin Lispro [humaLOG Kwikpen] See Protocol SQ DIRECTED 04/02/22 04/02/22 History Midodrine HCl [ProAmatine] 10 mg PO TID@0700,1100,1600 04/02/22 04/02/22 History Sennosides-Docusate Sodium 2 tab PO HS 04/02/22 04/02/22 History [Senokot-S] Allergies Allergy/AdvReac Type Severity Reaction Status Date / Time ciprofloxacin [From Cipro] Allergy Swelling Verified 04/02/22 17:33 diphenhydramine Allergy Swelling Verified 04/02/22 17:33 [From Benadryl] iodine Allergy Swelling Verified 04/02/22 17:33 propoxyphene Allergy Swelling Verified 04/02/22 17:33 [From Darvocet-N] red dye Allergy Swelling Verified 04/02/22 17:33 sulfacetamide Allergy Swelling Verified 04/02/22 17:33 [From Sulfamide] yellow dye Allergy Swelling Verified 04/02/22 17:33 FLU VACCINE? Allergy Unknown Uncoded 04/02/22 15:17 Physical Exam Vitals: Vital Signs Temp Pulse Pulse Resp BP BP Pulse Ox 04/03/22 11:46 80 04/03/22 11:34 80 04/03/22 11:30 97.5 F L 82 20 126/76 97 04/03/22 07:47 76 04/03/22 07:31 72 04/03/22 05:43 98 F 72 16 130/78 98 04/02/22 23:22 80 04/02/22 23:12 80 04/02/22 20:00 98 F 82 18 132/78 96 04/02/22 18:05 79 17 131/80 97 04/02/22 15:23 20 04/02/22 15:13 98.4 F 73 18 155/75 97 Intake and Output 04/02/22 04/03/22 04/03/22 22:59 06:59 14:59 Intake Total 840.0 181.03 Balance 840.0 181.03 Intake: Intake, IV Titration 250.0 181.03 Amount Heparin Sod,Pork in 0.45% 250.0 181.03 NaCl 25,000 unit In 0.45 % NaCl 1 250ml.bag @ 13. 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 Acute kidney injury from last admission, ATN currently improving. Serum creatinine had peaked at 2.9 and currently down to 1.7 mg/dL. Ultrasound had shown no hydronephrosis although right kidney could not be visualized clearly. 2. Chronic kidney disease NKF stage IIIB secondary to diabetic kidney disease with baseline creatinine around 1.5 3. Recent Klebsiella UTI 4. Right upper extremity cephalic and basilic vein DVT 5. Endometrial cancer being followed by oncology as outpatient and was scheduled to start treatment 6. Hyperkalemia on admission currently improved, rule out urine retention. Status post locale mouth 7. Anemia rule out iron deficiency. Patient had IV iron during her last admission. She has had vaginal bleeding on and off. Plan: Add IV Lasix Repeat labs in a.m. Check bladder scan and rule out urine retention Check iron profile. Patient did receive IV iron during her last admission. She has had vaginal bleeding on and off
[2022-04-03] MEDS: FUROSEMIDE 10 MG/ML 4 ML VIAL IV SCH (13:20)
--- NOTE | 2022-04-03 14:14 | P.CNPUL ---
History of Present Illness Consult date: 04/03/22 Requesting physician: Fabienne Fortune Reason for consult: COPD Chief complaint: Right arm swelling, shortness of breath History of present illness: I'm evaluating this patient today on 04/03/2022. She is up on a general medical floor in no acute distress. She is currently maintained on 4 L nasal cannula. She arrived today the primary complaints of right upper extremity swelling and some mild shortness of breath on 04/02/2022. Patient was a recent discharge from [facility] following a left hip fracture. She had a brief stay in the intensive care unit for postoperative hypotension. The patient was discharged to [facility] on the [place] on 03/28/2022, where she started to notice right upper extremity edema. Apparently, an outpatient Doppler was performed of bilateral upper extremities, but we do not have these reports. Patient's pertinent history includes uterine cancer, severe chronic bronchial asthma, chronic kidney disease stage III, diabetes, DVT, hypertension, rheumatoid arthritis, gout. Patient clearly has multiple risk factors for thrombosis. Patient is currently maintained on Ventolin inhaler as needed, Pulmicort, Singulair. High-intensity heparin is infusing Per protocol. Vital patient receiving IV push Lasix daily. Most recent CBC from 04/02/2022 reveals WBC count 8, hemoglobin 9, hematocrit 29, platelet count 312,000. INR 1.1, PTT 88. BMP appears relatively stable sodium 141, potassium 5.7, chloride 112, serum CO2 23, BUN 43, this creatinine 1.73, glucose 156. BMP 4960. Troponin negative. Nephrology is following. Review of Systems REVIEW OF SYSTEMS: CONSTITUTIONAL: Denies any recent significant weight loss or weight gain. EYES: Denies change in vision. EARS, NOSE, MOUTH, THROAT: Denies headaches, denies sore throat. CARDIOVASCULAR: Denies chest pain, palpitations or syncopal episodes. Admits right upper extremity swelling and pain. RESPIRATORY: Denies: cough, congestion or hemoptysis. Admits exertional shortness of breath. GASTROINTESTINAL: Denies change in appetite, denies abdominal pain GENITOURINARY: Denies hematuria, denies infections. MUSKULOSKELETAL: Denies pain, denies swelling. INTEGUMENTARY: Denies rash, denies eczema. NEUROLOGICAL: Denies recent memory loss, no recent seizure activity. PSYCHIATRIC: Denies anxiety, denies depression. HEMATOLOGIC/LYMPHATIC: Denies anemia, denies enlarged lymph nodes. Past Medical History Past Medical History: Cancer, Diabetes Mellitus, Deep Vein Thrombosis (DVT), Hypertension, Renal Disease, Rheumatoid Arthritis (RA), Thyroid Disorder Additional Past Medical History / Comment(s): O2 @ 4L. SLE LUPUS. STAGE 3 KIDNEY DISEASE. Leukemia, GRAVES DZ , kidney stones, gout, ovarian cancer (recent diagnosis, no treatment yet) History of Any Multi-Drug Resistant Organisms: None Reported Past Surgical History: No Surgical Hx Reported Additional Past Surgical History / Comment(s): BILATERAL ARTHROSCOPY KNEES. D & C (MISCARRIAGES). Past Anesthesia/Blood Transfusion Reactions: No Reported Reaction Past Psychological History: Anxiety Smoking Status: Never smoker Past Alcohol Use History: None Reported Past Drug Use History: None Reported - Past Family History Mother Family Medical History: Congestive Heart Failure (CHF), Diabetes Mellitus Father Family Medical History: Congestive Heart Failure (CHF), Dialysis, Hypertension Medications and Allergies Home Medications Medication Instructions Recorded Confirmed Type FLUoxetine HCL [PROzac] 20 mg PO BID@0900,2100 01/09/17 04/02/22 History Montelukast [Singulair] 10 mg PO DAILY 01/09/17 04/02/22 History gemfibroziL [Lopid] 600 tab PO BID 01/09/17 04/02/22 History Albuterol Inhaler [Ventolin Hfa 2 puff INHALATION RT-Q4H PRN 01/14/17 04/02/22 History Inhaler] Albuterol Nebulized [Ventolin 2.5 mg INHALATION RT-QID PRN 01/14/17 04/02/22 H istory Nebulized] allopurinoL [Zyloprim] 100 mg PO BID 01/21/22 04/02/22 History Atorvastatin [Lipitor] 10 mg PO HS 02/15/22 04/02/22 History Ondansetron [Zofran] 4 mg PO Q12HR PRN 02/15/22 04/02/22 History Pantoprazole [Protonix] 40 mg PO BID@0600,2100 02/15/22 04/02/22 History Acetaminophen Tab [Tylenol] 650 mg PO Q6HR PRN tab 03/28/22 04/02/22 Rx Aspirin 81 mg PO BID tab 03/28/22 04/02/22 Rx Ferrous Sulfate [Iron (65 MG 325 mg PO DAILY #30 tab 03/28/22 04/02/22 Rx Elemental)] Heparin Sodium,Porcine [Heparin 5,000 unit SQ Q12HR #60 each 03/28/22 04/02/22 Rx Sodium] Metoprolol Succinate (ER) [Toprol 75 mg PO DAILY tab 03/28/22 04/02/22 Rx XL] Primidone [Mysoline] 50 mg PO HS tab 03/28/22 04/02/22 Rx Sodium Zirconium Cyclosilicate 10 gm PO DAILY 7 Days #7 packet 03/28/22 04/02/22 Rx [Lokelma] Fluticasone/Vilanterol [Breo 1 puff INHALATION RT-BID 04/02/22 04/02/22 History Ellipta 200-25 Mcg Inhaler] Gabapentin [Gralise] 600 mg PO BID 04/02/22 04/02/22 History HYDROcodone/APAP 5-325MG [[place] 1 tab PO Q6HR PRN 04/02/22 04/02/22 History 5-325] Insulin Glargine-Yfgn [Semglee 10 unit SQ BID@0900,1700 04/02/22 04/02/22 H istory (Yfgn) Pen] Insulin Lispro [humaLOG Kwikpen] 2 units SQ TID@0700,1100,1600 04/02/22 04/02/22 History Insulin Lispro [humaLOG Kwikpen] See Protocol SQ DIRECTED 04/02/22 04/02/22 History Midodrine HCl [ProAmatine] 10 mg PO TID@0700,1100,1600 04/02/22 04/02/22 History Sennosides-Docusate Sodium 2 tab PO HS 04/02/22 04/02/22 History [Senokot-S] Allergies Allergy/AdvReac Type Severity Reaction Status Date / Time ciprofloxacin [From Cipro] Allergy Swelling Verified 04/02/22 17:33 diphenhydramine Allergy Swelling Verified 04/02/22 17:33 [From Benadryl] iodine Allergy Swelling Verified 04/02/22 17:33 propoxyphene Allergy Swelling Verified 04/02/22 17:33 [From Darvocet-N] red dye Allergy Swelling Verified 04/02/22 17:33 sulfacetamide Allergy Swelling Verified 04/02/22 17:33 [From Sulfamide] yellow dye Allergy Swelling Verified 04/02/22 17:33 FLU VACCINE? Allergy Unknown Uncoded 04/02/22 15:17 Physical Exam Vitals: Vital Signs Temp Pulse Pulse Resp BP BP Pulse Ox 04/03/22 11:46 80 04/03/22 11:34 80 04/03/22 11:30 97.5 F L 82 20 126/76 97 04/03/22 07:47 76 04/03/22 07:31 72 04/03/22 05:43 98 F 72 16 130/78 98 04/02/22 23:22 80 04/02/22 23:12 80 04/02/22 20:00 98 F 82 18 132/78 96 04/02/22 18:05 79 17 131/80 97 04/02/22 15:23 20 04/02/22 15:13 98.4 F 73 18 155/75 97 Intake and Output 04/02/22 04/03/22 04/03/22 22:59 06:59 14:59 Intake Total 840.0 181.03 Balance 840.0 181.03 Intake: Intake, IV Titration 250.0 181.03 Amount Heparin Sod,Pork in 0.45% 250.0 181.03 NaCl 25,000 unit In 0.45 % NaCl 1 250ml.bag @ 13. 779 UNITS/KG/HR 23 mls/hr IV .[id number] [facility] Rx#: [id number] Oral 590 Other: Voiding Method External Catheter External Catheter # Voids 1 Weight 166.922 kg GENERAL EXAM: Alert, morbidly obese fem comfortable in no apparent distress. HEAD: Normocephalic. EYES: Normal reaction of pupils, equal size. NOSE: Clear with pink turbinates. THROAT: No erythema or exudates. NECK: No masses, no JVD. CHEST: No chest wall deformity. LUNGS: Equal air entry with no crackles, wheezes, rhonchi or dullness. CVS: S1 and S2 normal with no audible murmur, regular rhythm. ABDOMEN: No hepatosplenomegaly, normal bowel sounds, no guarding or rigidity. SPINE: No scoliosis or deformity SKIN: No rashes CENTRAL NERVOUS SYSTEM: No focal deficits, tone is normal in all 4 extremities. EXTREMITIES: There is moderate nonpitting edema of the right upper extremity; this is not apparent left upper extremity. No clubbing, no cyanosis. Peripheral pulses are intact. Results - Laboratory Findings CBC and BMP: 04/02/22 15:23 04/02/22 18:42 PT/INR, D-dimer PT 11.1 sec (9.0-12.0) 04/02/22 15:23 INR 1.1 (<1.2) 04/02/22 15:23 Abnormal lab findings: Abnormal Labs 04/02/22 04/02/22 04/02/22 15:23 15:23 18:42 RBC 3.20 L Hgb 8.9 L Hct 29.3 L MCHC 30.2 L RDW 16.2 H APTT Potassium 6.0 H 5.7 H Chloride 112 H BUN 43 H Creatinine 1.73 H Glucose 156 H POC Glucose (mg/dL) Total Protein 6.0 L Albumin 3.3 L 04/03/22 04/03/22 04/03/22 01:30 07:45 08:14 RBC Hgb Hct MCHC RDW APTT 33.7 H 87.7 H Potassium Chloride BUN Creatinine Glucose POC Glucose (mg/dL) 125 H Total Protein Albumin 04/03/22 11:49 RBC Hgb Hct MCHC RDW APTT Potassium Chloride BUN Creatinine Glucose POC Glucose (mg/dL) 155 H Total Protein Albumin - Diagnostic Findings Chest x-ray: image reviewed Assessment and Plan Assessment: Right subclavian venous thrombosis currently maintained on high intensity IV heparin per protocol. We'll order venous Doppler bilateral upper extremities to confirm thrombus. severe chronic bronchial asthma is stable. Currently maintained on when necessary albuterol nebulizations, Pulmicort nebulization, Singulair. uterine cancer, awaiting treatment Left hip fracture status post repair chronic kidney disease stage III. Current creatinine 1.73 BUN 43 GFR 33. Nephrology is following. Heart failure with preserved ejection fraction is stable . recent echocardiogram on 02/15/2022 estimated ejection fraction 55-60% with moderate left ventricular hypertrophy. diabetes mellitus type 2 insulin-dependent Primary hypertension rheumatoid arthritis Plan: Continue supplemental oxygen with 4 L nasal cannula, may titrate accordingly to maintain oxygen saturation greater than 92%. Continue IV heparin per protocol We'll order venous Doppler bilateral upper extremities to confirm thrombus. We will wait on computed tomography scan of chest with angiogram due to poor renal function Continue albuterol nebulizations, Pulmicort nebulization, Singulair. Continue Lokelma for hyperkalemia Continue furosemide 40 mg daily I have personally seen and examined the patient, performed the documentation and the assessment and plan as written. Number of minutes spent on the visit: 20. Time with Patient: Less than 30
[2022-04-03 17:06] LABS: Glucose,Whole Blood 178 mg/dL (70-110)
[2022-04-03 20:08] LABS: Glucose,Whole Blood 201 mg/dL (70-110)
[2022-04-03] MEDS: SENNOSIDES-DOCUSATE SODIUM 1 EACH TAB PO SCH (20:10)
[2022-04-03] MEDS: PRIMIDONE 50 MG TAB PO SCH (20:10)
[2022-04-03] MEDS: ATORVASTATIN 10 MG TAB PO SCH (20:10)
--- NOTE | 2022-04-04 04:41 | P.HPIM ---
History of Present Illness H&P Date: 04/03/22 This is a pleasant 56-year-old female who recently presented to the emergency department via EMS as [facility] and having some right arm swelling noted to have a blood clot in her right internal carotid right subclavian and right axillary vein that was shown an ultrasound done today. Patient also having some difficulty in breathing. Patient chronically wears 4 L via nasal cannula outpatient. Patient had been on subcutaneous heparin while at rehab. Patient has a past medical history of ovarian cancer, diabetes mellitus, DVT, hypertension, renal disease, rheumatoid arthritis, hypothyroid, lupus, and recent left hip fracture requiring surgical intervention. Patient is morbidly obese with a BMI of 59.4 and has been having difficulty ambulating since the fall. Patient was initiated on IV heparin in the ER. Patient with significant chronic kidney disease and poor kidney functions unable to receive a computed tomography scan and was admitted for further evaluation of this DVT and shortness of breath. Nephrology was consulted along with pulmonary. Patient's primary care provider is Dr. Alicea in the outpatient setting. EKG showed sinus rhythm, chest x-ray showed cardiomegaly with right lower lung opacification most likely atelectasis with suboptimal study due to body habitus, and repeat venous Doppler was done showing no evidence of DVT and there is a superficial thrombus noted within the left cephalic and basilar veins. This revealed a hemoglobin of 9, INR was 1.1, sodium 141 with a potassium of 5.7, creatinine 1.73, BNP 4960 and troponins were negative. Review Of Systems: Constitutional: No fever, no chills, no night sweats. No weight change. No weakness, fatigue or lethargy. No daytime sleepiness. EENT: No headache. No blurred vision or double vision, no loss of vision. No loss of Hearing, no ringing in the ears, no dizziness. No nasal drainage or congestion. No epistaxis. No sore throat. Lungs: Reports of shortness of breath, cough, no sputum production. No wheezing. Cardiovascular: No chest pain, no lower extremity edema. No palpitations. No paroxysmal nocturnal dyspnea. No orthopnea. No lightheadedness or dizziness. No syncopal episodes. Abdominal: No abdominal pain. No nausea, vomiting. No diarrhea. No constipa tion. No bloody or tarry stools.. No loss of appetite. Genitourinary: No dysuria, increased frequency, urgency. No urinary retention. Reports recent UTI Musculoskeletal: No myalgias. Reports muscle weakness, with gait dysfunction, reports of recent falls. No back pain. No neck pain. Integumentary: No wounds, no lesions. No rash or pruritus. No unusual bruising. No change in hair or nails. Neurologic: No aphasia. No facial droop. No change in mentation. No head injury. No headache. No paralysis. No paresthesia. Psychiatric: No depression. No anxiety. No mood swings. Endocrine: No abnormal blood sugars. No weight change. No excessive sweating or thirst. No cold intolerance. PHYSICAL EXAMINATION: GENERAL: The patient is alert and oriented x4, Well developed, well nourished. Morbidly obese HEENT: Pupils are round and equally reacting to light. EOMI. no scleral icterus. No conjunctival pallor. Normocephalic, atraumatic. No pharyngeal erythema. No thyromegaly. CARDIOVASCULAR: S1 and S2 muffled PULMONARY: diminished breath sounds bilaterally with no wheezing or rhonchi noted. ABDOMEN: soft. Nontender on exam. obese. non-distended, normoactive bowel sounds. No palpable organomegaly. MUSCULOSKELETAL: No joint swelling or deformity. EXTREMITIES: No cyanosis, clubbing, or pedal edema. NEUROLOGICAL: Gross neurological examination did not reveal any focal deficits. Diffuse weakness SKIN: No rashes. Assessment: Right arm swelling due to superficial thrombophlebitis with no evidence of DVT on Doppler Severe chronic bronchial asthma, not in exacerbation Hyperkalemia History of recent left hip fracture, status post repair last admission Chronic kidney disease stage III History of heart failure with preserved EF, recent EF is 55-60, not in exacerbation Diabetes mellitus, type II, insulin-dependent Hypertension History of rheumatoid arthritis History of recent diagnosis of ovarian cancer, needs outpatient follow-up and has not received treatment yet GI prophylaxis DVT prophylaxis on IV heparin Full code Plan: Recommend to continue with current medications and management and pulmonary along with nephrology consulted and following. Home medications have been reviewed and resumed Follow-up venous Doppler shows no evidence of DVT and heparin will be stopped as patient is having some mild hematuria noted Recommend follow-up labs to monitor CBC and BMP Potassium found to be elevated and will give her dose of keldc nephrology following. BNP was found to be elevated and started on IV Lasix per nephrology PT/OT to evaluate the patient Encouraged increase activity as tolerated Recommend to monitor Accu-Cheks before meals and at bedtime and will use sliding scale Initially patient was to return to rehab although patient reports she wants to go home. Will discuss with social work after PT evaluation and discussed discharge planning Due to multiple complex medical issues, prognosis is guarded Possible discharge in the next 24-48 hours. The impression and plan of care has been dictated by Fabienne Fortune, nurse practitioner as directed. Dr. Lior PERRY I have performed a history and examination and MDM of this patient, discussed the same with the dictator, and agree with the dictator's assessment and plan as written ,documented as a scribe. Based on total visit time, I have performed more than 50% of the visit. Any additional findings or plans will be noted. Past Medical History Past Medical History: Cancer, Diabetes Mellitus, Deep Vein Thrombosis (DVT), H ypertension, Renal Disease, Rheumatoid Arthritis (RA), Thyroid Disorder Additional Past Medical History / Comment(s): O2 @ 4L. SLE LUPUS. STAGE 3 KIDNEY DISEASE. Leukemia, GRAVES DZ , kidney stones, gout, ovarian cancer (recent diagnosis, no treatment yet) History of Any Multi-Drug Resistant Organisms: None Reported Past Surgical History: No Surgical Hx Reported Additional Past Surgical History / Comment(s): BILATERAL ARTHROSCOPY KNEES. D & C (MISCARRIAGES). Past Anesthesia/Blood Transfusion Reactions: No Reported Reaction Past Psychological History: Anxiety Smoking Status: Never smoker Past Alcohol Use History: None Reported Past Drug Use History: None Reported - Past Family History Mother Family Medical History: Congestive Heart Failure (CHF), Diabetes Mellitus Father Family Medical History: Congestive Heart Failure (CHF), Dialysis, Hypertension Medications and Allergies Home Medications Medication Instructions Recorded Confirmed Type FLUoxetine HCL [PROzac] 20 mg PO BID@0900,2100 01/09/17 04/02/22 History Montelukast [Singulair] 10 mg PO DAILY 01/09/17 04/02/22 History gemfibroziL [Lopid] 600 tab PO BID 01/09/17 04/02/22 History Albuterol Inhaler [Ventolin Hfa 2 puff INHALATION RT-Q4H PRN 01/14/17 04/02/22 History Inhaler] Albuterol Nebulized [Ventolin 2.5 mg INHALATION RT-QID PRN 01/14/17 04/02/22 History Nebulized] allopurinoL [Zyloprim] 100 mg PO BID 01/21/22 04/02/22 History Atorvastatin [Lipitor] 10 mg PO HS 02/15/22 04/02/22 History Ondansetron [Zofran] 4 mg PO Q12HR PRN 02/15/22 04/02/22 History Pantoprazole [Protonix] 40 mg PO BID@0600,2100 02/15/22 04/02/22 History Acetaminophen Tab [Tylenol] 650 mg PO Q6HR PRN tab 03/28/22 04/02/22 Rx Aspirin 81 mg PO BID tab 03/28/22 04/02/22 Rx Ferrous Sulfate [Iron (65 MG 325 mg PO DAILY #30 tab 03/28/22 04/02/22 Rx Elemental)] Heparin Sodium,Porcine [Heparin 5,000 unit SQ Q12HR #60 each 03/28/22 04/02/22 Rx Sodium] Metoprolol Succinate (ER) [Toprol 75 mg PO DAILY tab 03/28/22 04/02/22 Rx XL] Primidone [Mysoline] 50 mg PO HS tab 03/28/22 04/02/22 Rx Sodium Zirconium Cyclosilicate 10 gm PO DAILY 7 Days #7 packet 03/28/22 04/02/22 Rx [Lokelma] Fluticasone/Vilanterol [Breo 1 puff INHALATION RT-BID 04/02/22 04/02/22 History Ellipta 200-25 Mcg Inhaler] Gabapentin [Gralise] 600 mg PO BID 04/02/22 04/02/22 History HYDROcodone/APAP 5-325MG [[place] 1 tab PO Q6HR PRN 04/02/22 04/02/22 History 5-325] Insulin Glargine-Yfgn [Semglee 10 unit SQ BID@0900,1700 04/02/22 04/02/22 History (Yfgn) Pen] Insulin Lispro [humaLOG Kwikpen] 2 units SQ TID@0700,1100,1600 04/02/22 04/02/22 History Insulin Lispro [humaLOG Kwikpen] See Protocol SQ DIRECTED 04/02/22 04/02/22 History Midodrine HCl [ProAmatine] 10 mg PO TID@0700,1100,1600 04/02/22 04/02/22 History Sennosides-Docusate Sodium 2 tab PO HS 04/02/22 04/02/22 History [Senokot-S] Allergies Allergy/AdvReac Type Severity Reaction Status Date / Time ciprofloxacin [From Cipro] Allergy Swelling Verified 04/02/22 17:33 diphenhydramine Allergy Swelling Verified 04/02/22 17:33 [From Benadryl] iodine Allergy Swelling Verified 04/02/22 17:33 propoxyphene Allergy Swelling Verified 04/02/22 17:33 [From Darvocet-N] red dye Allergy Swelling Verified 04/02/22 17:33 sulfacetamide Allergy Swelling Verified 04/02/22 17:33 [From Sulfamide] yellow dye Allergy Swelling Verified 04/02/22 17:33 FLU VACCINE? Allergy Unknown Uncoded 04/02/22 15:17 Physical Exam Vitals: Vital Signs Temp Pulse Pulse Resp BP BP Pulse Ox 04/03/22 07:47 76 04/03/22 07:31 72 04/03/22 05:43 98 F 72 16 130/78 98 04/02/22 23:22 80 04/02/22 23:12 80 04/02/22 20:00 98 F 82 18 132/78 96 04/02/22 18:05 79 17 131/80 97 04/02/22 15:23 20 04/02/22 15:13 98.4 F 73 18 155/75 97 Intake and Output 04/02/22 04/03/22 04/03/22 22:59 06:59 14:59 Intake Total 840.0 181.03 Balance 840.0 181.03 Intake: Intake, IV Titration 250.0 181.03 Amount Heparin Sod,Pork in 0.45% 250.0 181.03 NaCl 25,000 unit In 0.45 % NaCl 1 250ml.bag @ 13. 779 UNITS/KG/HR 23 mls/hr IV .[id number] [facility] Rx#: [id number] Oral 590 Other: Voiding Method External Catheter # Voids 1 Weight 166.922 kg Results CBC & Chem 7: 04/02/22 15:23 04/02/22 18:42 Labs: Abnormal Lab Results - Last 24 Hours (Table) 04/02/22 04/02/22 04/02/22 Range/Units 15:23 15:23 18:42 RBC 3.20 L (3.80-5.40) m/uL Hgb 8.9 L (11.4-16.0) gm/dL Hct 29.3 L (34.0-46.0) % MCHC 30.2 L (31.0-37.0) g/dL RDW 16.2 H (11.5-15.5) % APTT (22.0-30.0) sec Potassium 6.0 H 5.7 H (3.5-5.1) mmol/L Chloride 112 H (98-107) mmol/L BUN 43 H (7-17) mg/dL Creatinine 1.73 H (0.52-1.04) mg/dL Glucose 156 H (74-99) mg/dL POC Glucose (mg/dL) (70-110) mg/dL Total Protein 6.0 L (6.3-8.2) g/dL Albumin 3.3 L (3.5-5.0) g/dL 04/03/22 04/03/22 04/03/22 Range/Units 01:30 07:45 08:14 RBC (3.80-5.40) m/uL Hgb (11.4-16.0) gm/dL Hct (34.0-46.0) % MCHC (31.0-37.0) g/dL RDW (11.5-15.5) % APTT 33.7 H 87.7 H (22.0-30.0) sec Potassium (3.5-5.1) mmol/L Chloride (98-107) mmol/L BUN (7-17) mg/dL Creatinine (0.52-1.04) mg/dL Glucose (74-99) mg/dL POC Glucose (mg/dL) 125 H (70-110) mg/dL Total Protein (6.3-8.2) g/dL Albumin (3.5-5.0) g/dL Thrombosis Risk Factor Assmnt - DVT/VTE Prophylaxis DVT/VTE Prophylaxis: Pharmacologic Prophylaxis ordered - Choose All That Apply Each Factor Represents 1 point: Age 41-60 years, Obesity (BMI >25) Each Risk Factor Represents 3 Points: History of DVT/PE Each Risk Factor Represents 5 Points: Hip, pelvis, or leg fracture (< 1 month) Thrombosis Risk Factor Assessment Total Risk Factor Score: 10 Thrombosis Risk Factor Assessment Level: High Risk Assessment and Plan Time with Patient: Greater than 30
[2022-04-04] MEDS: HYDROcodone/APAP 5-325MG 1 EACH TAB PO PRN ×2 (06:42→21:38)
[2022-04-04] MEDS: PANTOPRAZOLE 40 MG TABLET PO SCH ×2 (06:43→20:15)
[2022-04-04 07:12] LABS: Glucose,Whole Blood 188 mg/dL (70-110)
--- NOTE | 2022-04-04 08:24 | P.PN ---
Subjective Patient is seen for follow-up for acute kidney injury from her last admission. Renal function has been improving. She also has had hyperkalemia and is maintained on local mouth on a daily basis. Currently patient is being diuresed for volume overload. She was admitted with pain and swelling of her right arm after recent hospitalization. It was noted to have cephalic and the Salic vein thrombosis and is currently on anticoagulation. No complaints today Good urine output Labs pending from today Objective - Vital Signs Vital signs: Vital Signs Temp 98.2 F 04/04/22 03:58 Pulse 82 04/04/22 03:58 Resp 16 04/04/22 03:58 BP 115/72 04/04/22 03:58 Pulse Ox 97 04/04/22 03:58 FiO2 Intake & Output 04/03/22 04/04/22 04/04/22 18:59 06:59 18:59 Intake Total 181.03 1080 Output Total 1000 Balance -818.97 1080 Intake: Intake, IV Titration 181.03 Amount Heparin Sod,Pork in 0.45% 181.03 NaCl 25,000 unit In 0.45 % NaCl 1 250ml.bag @ 13. 779 UNITS/KG/HR 23 mls/hr IV .[id number] [facility] Rx#: [id number] Oral 1080 Output: Urine 1000 Other: Voiding Method External Catheter External Catheter # Voids 1 1 - Exam Awake, comfortable, morbidly obese Alert oriented 3 Examination of the heart S1 and S2 Examination lungs decreased breath sounds at the bases Abdomen is soft nontender Examination lower extremities shows edema 2+ bilaterally - Labs CBC & Chem 7: 04/02/22 15:23 04/02/22 18:42 Labs: Abnormal Lab Results - Last 24 Hours (Table) 04/03/22 04/03/22 04/03/22 Range/Units 08:14 11:49 17:05 APTT 87.7 H (22.0-30.0) sec POC Glucose (mg/dL) 155 H 178 H (70-110) mg/dL 04/03/22 04/04/22 Range/Units 20:06 07:10 APTT (22.0-30.0) sec POC Glucose (mg/dL) 201 H 188 H (70-110) mg/dL Assessment and Plan Assessment: 1. Acute kidney injury from last admission, ATN currently improving. Serum creatinine had peaked at 2.9 and currently down to 1.7 mg/dL. Ultrasound had shown no hydronephrosis although right kidney could not be visualized clearly. 2. Chronic kidney disease NKF stage IIIB secondary to diabetic kidney disease with baseline creatinine around 1.5 3. Recent Klebsiella UTI 4. Right upper extremity cephalic and basilic vein DVT 5. Endometrial cancer being followed by oncology as outpatient and was scheduled to start treatment 6. Hyperkalemia on admission currently improved, rule out urine retention. Status post locale mouth 7. Anemia rule out iron deficiency. Patient had IV iron during her last admission. She has had vaginal bleeding on and off. Plan: Continue with IV Lasix, increase to twice a day if renal function continues to improve Repeat labs in a.m. Check bladder scan and rule out urine retention Check iron profile. Patient did receive IV iron during her last admission. She has had vaginal bleeding on and off
--- NOTE | 2022-04-04 08:36 | XR ---
EXAMINATION TYPE: XR chest 1V portable DATE OF EXAM: 04/04/2022 COMPARISON: 04/02/2022 HISTORY: Shortness of breath TECHNIQUE: Frontal and lateral views of the chest are obtained. FINDINGS: Scattered senescent parenchymal changes noted. There is cardiomegaly with pulmonary venous congestion and scattered interstitial and alveolar edema. Significant increase in right-sided pleural effusion. Mediastinal structures are stable and grossly unremarkable. No evidence for hilar prominence. Degenerative changes dorsal spine. IMPRESSION: 1. There is cardiomegaly with pulmonary venous congestion and scattered interstitial and alveolar sima ma. Significant increase in right-sided pleural effusion.
[2022-04-04] MEDS: ASPIRIN 81 MG PO SCH ×2 (08:40→20:15)
[2022-04-04] MEDS: MONTELUKAST 10 MG TAB PO SCH (08:40)
[2022-04-04] MEDS: GABAPENTIN 300 MG CAP PO SCH ×2 (08:40→20:14)
[2022-04-04] MEDS: SODIUM ZIRCONIUM CYCLOSILICATE 10 GM PACKET PO SCH (08:40)
[2022-04-04] MEDS: METOPROLOL SUCCINATE (ER) 25 MG TAB.ER.24H PO SCH (08:40)
[2022-04-04] MEDS: allopurinoL 100 MG TAB PO SCH ×2 (08:41→20:15)
[2022-04-04] MEDS: INSULIN ASPART (NovoLOG) 100 UNIT/ML VIAL SQ SCH ×3 (08:41→17:32)
[2022-04-04] MEDS: FERROUS SULFATE 325 MG TAB PO SCH (08:41)
[2022-04-04] MEDS: INSULIN DETEMIR (LEVEMIR) 100 UNIT/ML SYR SQ SCH ×2 (08:41→17:32)
[2022-04-04] MEDS: FENOFIBRATE 160 MG TAB PO SCH ×2 (08:41→20:14)
[2022-04-04] MEDS: FLUoxetine HCL 20 MG CAP PO SCH ×2 (08:41→20:14)
[2022-04-04 09:00] LABS: Basophils # (A) 0.05 X 10*3/uL (0.00-0.10); Basophils % (A) 0.7 %; Eosinophils # (A) 0.38 X 10*3/uL (0.04-0.35); HCT 25.3 % (37.2-46.3); HGB 7.2 g/dL (12.0-15.0); Immature Grans, Automated 0.3 %; Lymphocytes % (A) 23.9 %; MCH 26.6 pg (27.0-32.0); MCHC 28.5 g/dL (32.0-37.0); MCV 93.4 fL (80.0-97.0); Mean Platelet Volume 10.9 fL (9.5-12.2); Monocytes # (A) 0.68 X 10*3/uL (0.20-1.00); NRBC Per 100 WBC 0 /100 WBCS (0.0-0.0); Neutrophils % (A) 61.1 %; Platelet Count 300 X 10*3/uL (140-440); RBC 2.71 X 10*6/uL (4.10-5.20); RDW 16.2 % (11.5-14.5); WBC 7.53 X 10*3/uL (4.50-10.00)
[2022-04-04 09:16] LABS: African American GFR (CKD) 33.2 (60.0-200.0); Anion Gap 10.1 mmol/L (10.00-18.00); BUN/Creat Ratio 16.84 Ratio (12.00-20.00); Blood Urea Nitrogen 32.5 mg/dL (9.0-27.0); Calcium 8.8 mg/dL (8.7-10.3); Carbon Dioxide 24.7 mmol/L (20.0-27.5); Non-African American GFR(CKD) 28.6 (60.0-200.0); Potassium 5.3 mmol/L (3.5-5.5)
[2022-04-04] MEDS: BUDESONIDE 0.5 MG/2 ML NEBU INHALATION SCH ×2 (09:22→20:06)
[2022-04-04] MEDS: ALBUTEROL NEBULIZED 2.5 MG/3 ML INHALATION PRN ×3 (09:22→20:06)
[2022-04-04] MEDS: FUROSEMIDE 10 MG/ML 4 ML VIAL IV SCH (10:18)
[2022-04-04 11:15] LABS: Glucose,Whole Blood 149 mg/dL (70-110)
--- NOTE | 2022-04-04 12:03 | P.PN ---
Subjective Progress Note Date: 04/04/22 Principal diagnosis: Right upper extremity edema, superficial venous thrombus. I'm evaluating this patient today on 04/03/2022. She is up on a general medical floor in no acute distress. She is currently maintained on 4 L nasal cannula. She arrived today the primary complaints of right upper extremity swelling and some mild shortness of breath on 04/02/2022. Patient was a recent discharge from [facility] following a left hip fracture. She had a brief stay in the intensive care unit for postoperative hypotension. The patient was discharged to [facility] on the [place] on 03/28/2022, where she started to notice right upper extremity edema. Apparently, an outpatient Doppler was performed of bilateral upper extremities, but we do not have these reports. Patient's pertinent history includes uterine cancer, severe chronic bronchial asthma, chronic kidney disease stage III, diabetes, DVT, hypertension, rheumatoid arthritis, gout. Patient clearly has multiple risk factors for thrombosis. Patient is currently maintained on Ventolin inhaler as needed, Pulmicort, Singulair. High-intensity heparin is infusing Per protocol. Vital patient receiving IV push Lasix daily. Most recent CBC from 04/02/2022 reveals WBC count 8, hemoglobin 9, hematocrit 29, platelet count 312,000. INR 1.1, PTT 88. BMP appears relatively stable sodium 141, potassium 5.7, chloride 112, serum CO2 23, BUN 43, this creatinine 1.73, glucose 156. BMP 4960. Troponin negative. Nephrology is following. I'm evaluating this patient today on 04/04/2022. She remains on a general medical floor in no acute distress. She is laying down in bed on 4 L nasal cannula. Denies worsening shortness of breath. Denies cough, fever, chest pain, hemoptysis. There is modest improvement in her right upper extremity edema. The venous Doppler of the bilateral upper extremities from 04/03/2022 revealed no evidence of deep venous thrombosis, but showed superficial venous thrombus of the left cephalic and basilic veins on the right arm. Her heparin was discontinued due to some hematuria. Her hemoglobin count did drop approximately 1.5 g deciliter. The hematuria has since stopped. She has not been started on any oral anticoagulation. She does have history uterine cancer and has not started treatment yet. She continues to be maintain on Ventolin inhaler as needed, Pulmicort, Singulair. Repeat chest x-ray from today 04/04/2022 reveals cardiomegaly and pulmonary venous congestion and scattered interstitial and alveolar edema and increase in the right-sided pleural effus ion. She has been started on Lasix 60 mg by mouth twice a day by nephrology. She continues Lokelma. Her BMP is stable sodium 142, potassium 5.3, chloride 108, serum CO2 25, BUN 33, creatinine 1.9, glucose 176. Her fluid balance is -1 L. Objective - Vital Signs Vital signs: Vital Signs Temp 98.2 F 04/04/22 03:58 Pulse 78 04/04/22 09:40 Resp 16 04/04/22 03:58 BP 120/64 04/04/22 08:39 Pulse Ox 97 04/04/22 03:58 FiO2 Intake & Output 04/03/22 04/04/22 04/04/22 18:59 06:59 18:59 Intake Total 181.03 1080 Output Total 1000 Balance -818.97 1080 Intake: Intake, IV Titration 181.03 Amount Heparin Sod,Pork in 0.45% 181.03 NaCl 25,000 unit In 0.45 % NaCl 1 250ml.bag @ 13. 779 UNITS/KG/HR 23 mls/hr IV .[id number] [facility] Rx#: [id number] Oral 1080 Output: Urine 1000 Other: Voiding Method External Catheter External Catheter External Catheter # Voids 1 1 - Exam GENERAL EXAM: Alert, morbidly obese female, comfortable in no apparent distress on 4 L nasal cannula. HEAD: Normocephalic. EYES: Normal reaction of pupils, equal size. NOSE: Clear with pink turbinates. THROAT: No erythema or exudates. NECK: No masses, no JVD. CHEST: No chest wall deformity. LUNGS: Equal air entry with no crackles, wheezes, or rhonchi. Dullness heard over the right posterior lower lobe CVS: S1 and S2 normal with no audible murmur, regular rhythm. ABDOMEN: No hepatosplenomegaly, normal bowel sounds, no guarding or rigidity. SPINE: No scoliosis or deformity SKIN: No rashes CENTRAL NERVOUS SYSTEM: No focal deficits, tone is normal in all 4 extremities. EXTREMITIES: There is moderate nonpitting edema of the right upper extremity; this is not apparent left upper extremity. No clubbing, no cyanosis. Peripheral pulses are intact. - Labs CBC & Chem 7: 04/04/22 05:41 04/04/22 05:41 Labs: Abnormal Lab Results - Last 24 Hours (Table) 04/03/22 04/03/22 04/03/22 Range/Units 11:49 17:05 20:06 RBC (4.10-5.20) X 10*6/uL Hgb (12.0-15.0) g/dL Hct (37.2-46.3) % MCH (27.0-32.0) pg MCHC (32.0-37.0) g/dL RDW (11.5-14.5) % Eosinophils # (0.04-0.35) X 10*3/uL BUN (9.0-27.0) mg/dL Creatinine (0.6-1.5) mg/dL Est GFR (CKD-EPI)AfAm (60.0-200.0) Est GFR (CKD-EPI)NonAf (60.0-200.0) Glucose (70-110) mg/dL POC Glucose (mg/dL) 155 H 178 H 201 H (70-110) mg/dL 04/04/22 04/04/22 04/04/22 Range/Units 05:41 05:41 07:10 RBC 2.71 L (4.10-5.20) X 10*6/uL Hgb 7.2 L (12.0-15.0) g/dL Hct 25.3 L (37.2-46.3) % MCH 26.6 L (27.0-32.0) pg MCHC 28.5 L (32.0-37.0) g/dL RDW 16.2 H (11.5-14.5) % Eosinophils # 0.38 H (0.04-0.35) X 10*3/uL BUN 32.5 H (9.0-27.0) mg/dL Creatinine 1.9 H (0.6-1.5) mg/dL Est GFR (CKD-EPI)AfAm 33.2 L (60.0-200.0) Est GFR (CKD-EPI)NonAf 28.6 L (60.0-200.0) Glucose 176 H (70-110) mg/dL POC Glucose (mg/dL) 188 H (70-110) mg/dL 04/04/22 Range/Units 11:14 RBC (4.10-5.20) X 10*6/uL Hgb (12.0-15.0) g/dL Hct (37.2-46.3) % MCH (27.0-32.0) pg MCHC (32.0-37.0) g/dL RDW (11.5-14.5) % Eosinophils # (0.04-0.35) X 10*3/uL BUN (9.0-27.0) mg/dL Creatinine (0.6-1.5) mg/dL Est GFR (CKD-EPI)AfAm (60.0-200.0) Est GFR (CKD-EPI)NonAf (60.0-200.0) Glucose (70-110) mg/dL POC Glucose (mg/dL) 149 H (70-110) mg/dL Assessment and Plan Assessment: Right superficial venous thrombosis of the right cephalic and basilic veins. Heparin infusion was discontinued due to hematuria. Her hemoglobin has dropped 1.5 g/dL., The risks may outweigh the benefits for long-term oral anticoagulation at this point. Hematuria. Heparin infusion was discontinued, and bleeding stopped on its own. We'll recheck CBC tomorrow. Right pleural effusion. Maintained on Lasix twice a day. severe chronic bronchial asthma is stable. Currently maintained on when necessary albuterol nebulizations, Pulmicort nebulization, Singulair. uterine cancer, awaiting treatment. We'll consult oncology. Left hip fracture status post repair chronic kidney disease stage III is stable. Nephrology is following. Hyperkalemia being treated with [place], nephrology is following. Heart failure with preserved ejection fraction is stable . recent echocardiogram on 02/15/2022 estimated ejection fraction 55-60% with moderate left ventricular hypertrophy. diabetes mellitus type 2 insulin-dependent Primary hypertension rheumatoid arthritis Plan: Continue supplemental oxygen with 4 L nasal cannula, may titrate accordingly to maintain oxygen saturation greater than 92%. Heparin was discontinued. Recheck CBC tomorrow. We will wait on computed tomography scan of chest with angiogram due to poor renal function Continue albuterol nebulizations, Pulmicort nebulization, Singulair. Continue Lokelma for hyperkalemia Continue furosemide 60 mg twice a day Consult oncology Patient appears stable from a pulmonary standpoint, will see as needed. I have personally seen and examined the patient, performed the documentation and the assessment and plan as written. Number of minutes spent on the visit: 10. Time with Patient: Less than 30
[2022-04-04] MEDS: SODIUM FERRIC GLUCONAT-SUCROSE 125 MG in SODIUM CHLORIDE 0.9% 100 ML IVPB SCH (12:13)
[2022-04-04] MEDS ORDERED: LORazepam 2 MG/ML INJ IV PRN (12:26)
[2022-04-04] MEDS ORDERED: HYDROcodone/APAP 5-325MG 1 EACH TAB PO ONE (12:45)
[2022-04-04 17:17] LABS: Glucose,Whole Blood 149 mg/dL (70-110)
[2022-04-04] MEDS: FUROSEMIDE 20 MG TAB PO SCH (17:32)
--- NOTE | 2022-04-04 18:03 | P.CONS ---
History of Present Illness - Reason for Consult Consult date: 04/04/22 DVT RUE, hx endometrial CA Requesting physician: Ronald Washington - Chief Complaint RUE swelling - History of Present Illness Patient is a 56-year-old with a history of obesity, CKD stage 3, HTN, CHF, and endometetrial cancer. Pt presented to ED, reported blood clot in her right internal carotid, right subclavian, and right axillary vein. Patient had left hip surgery recently s/p fall, and is currently in a [facility] for rehab. 2 days ago began to have RUE swelling and erythema, doppler at [facility] showed blood clots of RUE, and subsequently sent to the hospital for further management. Pt has associated mild SOB, baseline 4L currently on 4L NC, sat 94%.CXR showed vascular congestion/edema, and increasing right sided pleural effusion. Pt denies fever, CP, palpitations, and dizziness. Repeat doppler studies, showed no DVT, but showed SVT of left cephalic and left basilic veins. Patient has multiple risk factors for thrombosis, however is currently having vaginal bleeding likely due to endometrial carcinoma which is going to make anticoagulation difficult. CBC from 04/02/2022 reveals WBC count 7.5, hemoglobin 7.2 from 9, platelet count 310K. INR 1.1, PTT 88. Pt recently dx with endometrial carcinoma, seen by Dr. Abrams and was scheduled for MRI, but had a fall and hip fx and has not been able to have MRI yet. Pt is currently not on chemotherapy treatment. Pt is c/o intermittent vaginal bleeding, but denies abdominal pain and n/v. Review of Systems 10 point ROS is nregative except as stated in HPI Past Medical History Past Medical History: Cancer, Diabetes Mellitus, Deep Vein Thrombosis (DVT), Hypertension, Renal Disease, Rheumatoid Arthritis (RA), Thyroid Disorder Additional Past Medical History / Comment(s): O2 @ 4L. SLE LUPUS. STAGE 3 KIDNEY DISEASE. Leukemia, GRAVES DZ , kidney stones, gout, ovarian cancer (recent diagnosis, no treatment yet) History of Any Multi-Drug Resistant Organisms: None Reported Past Surgical History: No Surgical Hx Reported Additional Past Surgical History / Comment(s): BILATERAL ARTHROSCOPY KNEES. D & C (MISCARRIAGES). Past Anesthesia/Blood Transfusion Reactions: No Reported Reaction Past Psychological History: Anxiety Smoking Status: Never smoker Past Alcohol Use History: None Reported Past Drug Use History: None Reported - Past Family History Mother Family Medical History: Congestive Heart Failure (CHF), Diabetes Mellitus Father Family Medical History: Congestive Heart Failure (CHF), Dialysis, Hypertension Medications and Allergies Home Medications Medication Instructions Recorded Confirmed Type FLUoxetine HCL [PROzac] 20 mg PO BID@0900,2100 01/09/17 04/02/22 History Montelukast [Singulair] 10 mg PO DAILY 01/09/17 04/02/22 History gemfibroziL [Lopid] 600 tab PO BID 01/09/17 04/02/22 History Albuterol Inhaler [Ventolin Hfa 2 puff INHALATION RT-Q4H PRN 01/14/17 04/02/22 History Inhaler] Albuterol Nebulized [Ventolin 2.5 mg INHALATION RT-QID PRN 01/14/17 04/02/22 History Nebulized] allopurinoL [Zyloprim] 100 mg PO BID 01/21/22 04/02/22 History Atorvastatin [Lipitor] 10 mg PO HS 02/15/22 04/02/22 History Ondansetron [Zofran] 4 mg PO Q12HR PRN 02/15/22 04/02/22 History Pantoprazole [Protonix] 40 mg PO BID@0600,2100 02/15/22 04/02/22 History Acetaminophen Tab [Tylenol] 650 mg PO Q6HR PRN tab 03/28/22 04/02/22 Rx Aspirin 81 mg PO BID tab 03/28/22 04/02/22 Rx Ferrous Sulfate [Iron (65 MG 325 mg PO DAILY #30 tab 03/28/22 04/02/22 Rx Elemental)] Heparin Sodium,Porcine [Heparin 5,000 unit SQ Q12HR #60 each 03/28/22 04/02/22 Rx Sodium] Metoprolol Succinate (ER) [Toprol 75 mg PO DAILY tab 03/28/22 04/02/22 Rx XL] Primidone [Mysoline] 50 mg PO HS tab 03/28/22 04/02/22 Rx Sodium Zirconium Cyclosilicate 10 gm PO DAILY 7 Days #7 packet 03/28/22 04/02/22 Rx [Lokelma] Fluticasone/Vilanterol [Breo 1 puff INHALATION RT-BID 04/02/22 04/02/22 History Ellipta 200-25 Mcg Inhaler] Gabapentin [Gralise] 600 mg PO BID 04/02/22 04/02/22 History HYDROcodone/APAP 5-325MG [[place] 1 tab PO Q6HR PRN 04/02/22 04/02/22 History 5-325] Insulin Glargine-Yfgn [Semglee 10 unit SQ BID@0900,1700 04/02/22 04/02/22 History (Yfgn) Pen] Insulin Lispro [humaLOG Kwikpen] 2 units SQ TID@0700,1100,1600 04/02/22 04/02/22 History Insulin Lispro [humaLOG Kwikpen] See Protocol SQ DIRECTED 04/02/22 04/02/22 History Midodrine HCl [ProAmatine] 10 mg PO TID@0700,1100,1600 04/02/22 04/02/22 History Sennosides-Docusate Sodium 2 tab PO HS 04/02/22 04/02/22 History [Senokot-S] Allergies Allergy/AdvReac Type Severity Reaction Status Date / Time ciprofloxacin [From Cipro] Allergy Swelling Verified 04/02/22 17:33 diphenhydramine Allergy Swelling Verified 04/02/22 17:33 [From Benadryl] iodine Allergy Swelling Verified 04/02/22 17:33 propoxyphene Allergy Swelling Verified 04/02/22 17:33 [From Darvocet-N] red dye Allergy Swelling Verified 04/02/22 17:33 sulfacetamide Allergy Swelling Verified 04/02/22 17:33 [From Sulfamide] yellow dye Allergy Swelling Verified 04/02/22 17:33 FLU VACCINE? Allergy Unknown Uncoded 04/02/22 15:17 Physical Exam Vitals: Vital Signs Temp Pulse Pulse Resp BP Pulse Ox 04/04/22 11:28 97.8 F 89 18 122/75 94 L 04/04/22 09:40 78 04/04/22 09:22 78 04/04/22 08:39 84 120/64 04/04/22 03:58 98.2 F 82 16 115/72 97 04/03/22 21:00 77 04/03/22 20:50 82 04/03/22 19:45 97.8 F 86 15 112/67 98 04/03/22 19:31 20 04/03/22 15:39 100 Intake and Output 04/03/22 04/04/22 04/04/22 22:59 06:59 14:59 Intake Total 1080 Output Total 1000 Balance -1000 1080 Intake: Oral 1080 Output: Urine 1000 Other: Voiding Method External Catheter External Catheter # Voids 1 - Constitutional General appearance: cooperative, mild distress, obese - EENT Eyes: anicteric sclerae, EOMI ENT: hearing grossly normal - Neck Neck: no lymphadenopathy, normal ROM - Respiratory Respiratory: bilateral: CTA - Cardiovascular Rhythm: regular Heart sounds: normal: S1, S2 Abnormal Heart Sounds: no systolic murmur, no diastolic murmur, no rub, no S3 Gallop, no S4 Gallop, no click, no other - Gastrointestinal General gastrointestinal: soft, no tenderness - Integumentary RUE mildly erythematous distally Integumentary: no rash - Neurologic grossly Neurologic: CNII-XII intact - Musculoskeletal Musculoskeletal: strength equal bilaterally, no right sided weakness, no left sided weakness - Psychiatric Psychiatric: A&O x's 3, appropriate affect, intact judgment & insight diffuse non-pitting edema of RUE Results CBC & Chem 7: 04/04/22 05:41 04/04/22 05:41 Labs: Abnormal Lab Results - Last 24 Hours (Table) 04/03/22 04/03/22 04/04/22 Range/Units 17:05 20:06 05:41 RBC (4.10-5.20) X 10*6/uL Hgb (12.0-15.0) g/dL Hct (37.2-46.3) % MCH (27.0-32.0) pg MCHC (32.0-37.0) g/dL RDW (11.5-14.5) % Eosinophils # (0.04-0.35) X 10*3/uL BUN 32.5 H (9.0-27.0) mg/dL Creatinine 1.9 H (0.6-1.5) mg/dL Est GFR (CKD-EPI)AfAm 33.2 L (60.0-200.0) Est GFR (CKD-EPI)NonAf 28.6 L (60.0-200.0) Glucose 176 H (70-110) mg/dL POC Glucose (mg/dL) 178 H 201 H (70-110) mg/dL 04/04/22 04/04/22 04/04/22 Range/Units 05:41 07:10 11:14 RBC 2.71 L (4.10-5.20) X 10*6/uL Hgb 7.2 L (12.0-15.0) g/dL Hct 25.3 L (37.2-46.3) % MCH 26.6 L (27.0-32.0) pg MCHC 28.5 L (32.0-37.0) g/dL RDW 16.2 H (11.5-14.5) % Eosinophils # 0.38 H (0.04-0.35) X 10*3/uL BUN (9.0-27.0) mg/dL Creatinine (0.6-1.5) mg/dL Est GFR (CKD-EPI)AfAm (60.0-200.0) Est GFR (CKD-EPI)NonAf (60.0-200.0) Glucose (70-110) mg/dL POC Glucose (mg/dL) 188 H 149 H (70-110) mg/dL Chest x-ray: report reviewed Venous US: report reviewed Assessment and Plan (1) Endometrial adenocarcinoma Current Visit: Yes Status: Acute Priority: High Code(s): C54.1 - MALIGNANT NEOPLASM OF ENDOMETRIUM SNOMED Code(s): 618498225 (2) DVT of axillary vein, acute right Current Visit: Yes Status: Acute Priority: High Code(s): I82.A11 - ACUTE EMBOLISM AND THROMBOSIS OF RIGHT AXILLARY VEIN SNOMED Code(s): 997491175875235 (3) Thrombosis of internal carotid Current Visit: Yes Status: Acute Priority: High Code(s): I65.29 - OCCLUSION AND STENOSIS OF UNSPECIFIED CAROTID ARTERY SNOMED Code(s): 581753516 (4) Thrombosis of subclavian artery Current Visit: Yes Status: Acute Priority: High Code(s): I74.8 - EMBOLISM AND THROMBOSIS OF OTHER ARTERIES SNOMED Code(s): 210497160 Plan: Most recent CBC from 04/02/2022 reveals WBC count 7.5, hemoglobin 7.2 from 9, platelet count 310K. INR 1.1, PTT 88. Will continue to monitor blood counts, and will transfuse PRBCs if hgb falls below 7.0 Pareneteral iron ordered since pt has had vaginal intermittent bleeding Patient has multiple risk factors for thrombosis. Would like clarification and confirmation of DVT prior to putting pt on anticoagulation D/W IM BOOT TURNER, doppler BLE, V/Q, and possible Vascular consult. Will start anticoagulation therapy if doppler/VQ scan are positive for DVT/PE Attests: I have seen and examined pt, performed H&P, developed impression and plan of care. Discussed with dictator, agree with documentation, dictated as a scribe.
[2022-04-04 20:14] LABS: Glucose,Whole Blood 130 mg/dL (70-110)
[2022-04-04] MEDS: SENNOSIDES-DOCUSATE SODIUM 1 EACH TAB PO SCH (20:15)
[2022-04-04] MEDS: ATORVASTATIN 10 MG TAB PO SCH (20:15)
[2022-04-04] MEDS: PRIMIDONE 50 MG TAB PO SCH (20:15)
--- NOTE | 2022-04-05 02:19 | P.PN ---
Subjective Progress Note Date: 04/04/22 This is a pleasant 56-year-old female who recently presented to the emergency department via EMS as she was at a halfway [facility]hab and having some right arm swelling noted to have a blood clot in her right internal carotid right subclavian and right axillary vein that was shown an ultrasound done today. Patient also having some difficulty in breathing. Patient chronically wears 4 L via nasal cannula outpatient. Patient had been on subcutaneous heparin while at rehab. Patient has a past medical history of ovarian cancer, diabetes mellitus, DVT, hypertension, renal disease, rheumatoid arthritis, hypothyroid, lupus, and recent left hip fracture requiring surgical intervention. Patient is morbidly obese with a BMI of 59.4 and has been having difficulty ambulating since the fall. Patient was initiated on IV heparin in the ER. Patient with significant chronic kidney disease and poor kidney functions unable to receive a computed tomography scan and was admitted for further evaluation of this DVT and shortness of breath. Nephrology was consulted along with pulmonary. Patient's primary care provider is Dr. Alicea in the outpatient setting. EKG showed sinus rhythm, chest x-ray showed cardiomegaly with right lower lung opacification most likely atelectasis with suboptimal study due to body habitus, and repeat venous Doppler was done showing no evidence of DVT and there is a superficial thrombus noted within the left cephalic and basilar veins. This revealed a hemoglobin of 9, INR was 1.1, sodium 141 with a potassium of 5.7, creatinine 1.73, BNP 4960 and troponins were negative. 04/04/2022 Patient is seen and evaluated in follow-up today reports to feeling better and continues with generalized aches and pains. Recommend working with physical therapy daily for continued weakness. Patient reports she wants to go home with home care and does not want to return to rehab. Multiple medical consultations nephrology, hematology oncology. Patient with endometrial cancer did discuss with oncologist insulin and also met with radiology oncology Dr. Bradford although has yet to follow-up outpatient as patient has been in and out of the hospital and rehab. Patient was noted to have hematuria and heparin was stopped as Doppler study was negative. Outside report reports positive DVT and hematology was placed on consult. Records being reviewed and recommend VQ scan along with bilateral lower extremity Dopplers this patient's kidney functions are unstable. Patient is high risk for clots but also high risk for bleeding and continues with anemia. Patient is currently afebrile denies chest pain or worsening shortness of breath. Patient chronically wears 4 L outpatient maintained on that. Reports of nausea or vomiting and patient tolerating diet. Recommend monitoring sugars closely. Review of systems: Constitutional: No reports of fatigue, fever, or chills Cardiovascular: No reports of chest pain or palpitations Respiratory: No reports of shortness of breath or cough GI: No reports of nausea, vomiting, or diarrhea : No reports of dysuria or retention Neurovascular: No reports of weakness or numbness All medications have been reviewed PHYSICAL EXAMINATION: GENERAL: The patient is alert and oriented x4, Well developed, well nourished. Morbidly obese HEENT: Pupils are round and equally reacting to light. EOMI. no scleral icterus. No conjunctival pallor. Normocephalic, atraumatic. No pharyngeal erythema. No thyromegaly. CARDIOVASCULAR: S1 and S2 muffled PULMONARY: diminished breath sounds bilaterally with no wheezing or rhonchi noted. ABDOMEN: soft. Nontender on exam. obese. non-distended, normoactive bowel sounds. No palpable organomegaly. MUSCULOSKELETAL: No joint swelling or deformity. EXTREMITIES: No cyanosis, clubbing, or pedal edema. Generalized edema noted throughout upper and lower extremities NEUROLOGICAL: Gross neurological examination did not reveal any focal deficits. Diffuse weakness SKIN: No rashes. Assessment: Right arm swelling due to superficial thrombophlebitis with no evidence of DVT on Doppler here although outpatient Doppler was suggestive of DVT Severe chronic bronchial asthma, not in exacerbation Hyperkalemia History of recent left hip fracture, status post repair last admission Chronic kidney disease stage III History of heart failure with preserved EF, recent EF is 55-60, not in exacerbation Diabetes mellitus, type II, insulin-dependent Hypertension History of rheumatoid arthritis History of recent diagnosis of endometrial cancer, needs outpatient follow-up and has not received treatment yet GI prophylaxis DVT prophylaxis on IV heparin Full code Plan: Recommend to continue with current medications and management and pulmonary along with nephrology, hematology following. Home medications have been reviewed and resumed Follow-up venous Doppler shows no evidence of DVT and heparin will be stopped as patient is having some mild hematuria noted. Hematology consulted as outside Doppler report was suggestive of DVT and patient is high risk for bleeding and also high risk for developing clots difficult to anticoagulate. Recommend follow-up labs to monitor CBC and BMP Potassium continues to be elevated and maintained on [facility] following. Recommend to continue with IV Lasix per nephrology Encouraged increase activity as tolerated Recommend to monitor Accu-Cheks before meals and at bedtime and will use sliding scale Patient's discharge planning his changed and patient would like to go home with home care. Patient does not want to return to rehab Considering vascular surgery consult and VQ along with bilateral lower extremity Dopplers ordered and pending Due to multiple complex medical issues, prognosis is guarded The impression and plan of care has been dictated by Fabienne Fortune, nurse practitioner as directed. Dr. Lior PERRY I have performed a history and examination and MDM of this patient, discussed the same with the dictator, and agree with the dictator's assessment and plan as written ,documented as a scribe. Based on total visit time, I have performed more than 50% of the visit. Any additional findings or plans will be noted. Objective - Vital Signs Vital signs: Vital Signs Temp 98.2 F 04/04/22 03:58 Pulse 78 04/04/22 09:40 Resp 16 04/04/22 03:58 BP 120/64 04/04/22 08:39 Pulse Ox 97 04/04/22 03:58 FiO2 Intake & Output 04/03/22 04/04/22 04/04/22 18:59 06:59 18:59 Intake Total 181.03 1080 Output Total 1000 Balance -818.97 1080 Intake: Intake, IV Titration 181.03 Amount Heparin Sod,Pork in 0.45% 181.03 NaCl 25,000 unit In 0.45 % NaCl 1 250ml.bag @ 13. 779 UNITS/KG/HR 23 mls/hr IV .[id number] [facility] Rx#: [id number] Oral 1080 Output: Urine 1000 Other: Voiding Method External Catheter External Catheter # Voids 1 1 - Labs CBC & Chem 7: 04/04/22 05:41 04/04/22 05:41 Labs: Abnormal Lab Results - Last 24 Hours (Table) 04/03/22 04/03/22 04/03/22 Range/Units 11:49 17:05 20:06 RBC (4.10-5.20) X 10*6/uL Hgb (12.0-15.0) g/dL Hct (37.2-46.3) % MCH (27.0-32.0) pg MCHC (32.0-37.0) g/dL RDW (11.5-14.5) % Eosinophils # (0.04-0.35) X 10*3/uL BUN (9.0-27.0) mg/dL Creatinine (0.6-1.5) mg/dL Est GFR (CKD-EPI)AfAm (60.0-200.0) Est GFR (CKD-EPI)NonAf (60.0-200.0) Glucose (70-110) mg/dL POC Glucose (mg/dL) 155 H 178 H 201 H (70-110) mg/dL 04/04/22 04/04/22 04/04/22 Range/Units 05:41 05:41 07:10 RBC 2.71 L (4.10-5.20) X 10*6/uL Hgb 7.2 L (12.0-15.0) g/dL Hct 25.3 L (37.2-46.3) % MCH 26.6 L (27.0-32.0) pg MCHC 28.5 L (32.0-37.0) g/dL RDW 16.2 H (11.5-14.5) % Eosinophils # 0.38 H (0.04-0.35) X 10*3/uL BUN 32.5 H (9.0-27.0) mg/dL Creatinine 1.9 H (0.6-1.5) mg/dL Est GFR (CKD-EPI)AfAm 33.2 L (60.0-200.0) Est GFR (CKD-EPI)NonAf 28.6 L (60.0-200.0) Glucose 176 H (70-110) mg/dL POC Glucose (mg/dL) 188 H (70-110) mg/dL
[2022-04-05] MEDS: HYDROcodone/APAP 5-325MG 1 EACH TAB PO PRN ×3 (05:11→21:00)
[2022-04-05] MEDS: PANTOPRAZOLE 40 MG TABLET PO SCH ×2 (06:01→20:50)
[2022-04-05 07:12] LABS: Glucose,Whole Blood 163 mg/dL (70-110)
[2022-04-05 08:04] LABS: African American GFR (CKD) 29 (>60 ml/min/1.73 sqM); Anion Gap 5 mmol/L; Blood Urea Nitrogen 34 mg/dL (7-17); Calcium 8.4 mg/dL (8.4-10.2); Carbon Dioxide 26 mmol/L (22-30); Chloride 110 mmol/L (98-107); Glucose 162 mg/dL (74-99); Non-African American GFR(CKD) 25 (>60 ml/min/1.73 sqM); Potassium 5.1 mmol/L (3.5-5.1); Sodium 141 mmol/L (137-145)
[2022-04-05 08:07] LABS: Basophils # (A) 0.1 k/uL (0-0.2); Basophils % (A) 1 %; Eosinophils # (A) 0.4 k/uL (0-0.7); Eosinophils % (A) 6 %; HCT 26.4 % (34.0-46.0); HGB 7.9 gm/dL (11.4-16.0); Hypochromasia Marked; Lymphocytes # (A) 1.5 k/uL (1.0-4.8); Lymphocytes % (A) 25 %; MCH 28.1 pg (25.0-35.0); MCHC 29.8 g/dL (31.0-37.0); MCV 94.2 fL (80.0-100.0); Mean Platelet Volume 9.2; Monocytes # (A) 0.4 k/uL (0-1.0); Monocytes % (A) 6 %; Neutrophils # (A) 3.8 k/uL (1.3-7.7); Neutrophils % (A) 61 %; Platelet Count 290 k/uL (150-450); WBC 6.2 k/uL (3.8-10.6)
--- NOTE | 2022-04-05 08:32 | US ---
EXAMINATION TYPE: US venous doppler duplex LE BI DATE OF EXAM: 04/05/2022 8:08 AM COMPARISON: NONE CLINICAL HISTORY: recent upper dvt and recent left hip surgery. confusing history, patient states DVT in right arm seen on outside US, our department only saw cephalic vein thrombus in right arm SIDE PERFORMED: Bilateral TECHNIQUE: The lower extremity deep venous system is examined utilizing real time linear array sonog rachelle with graded compression, doppler sonography and color-flow sonography. VESSELS IMAGED: Common Femoral Vein Deep Femoral Vein Greater Saphenous Vein * Femoral Vein Popliteal Vein Small Saphenous Vein * Proximal Calf Veins (* superficial vessels) today patient could only roll on her right side, unable to lay flat, very difficult to image, 368lb s Right Leg: very limited visibility due to edema and swelling, popiteal vessels were negative for DVT Left Leg: very limited visibility due to edema and swelling, popiteal vessels were negative for DVT IMPRESSION: 1. Markedly limited exam visibility due to edema leg swelling as discussed above. Only vessels identi fied within the popliteal vessels which appear to be patent. Remaining vasculature is nondiagnostic.
[2022-04-05] MEDS: FERROUS SULFATE 325 MG TAB PO SCH (08:52)
[2022-04-05] MEDS: FLUoxetine HCL 20 MG CAP PO SCH ×2 (08:52→20:51)
[2022-04-05] MEDS: ASPIRIN 81 MG PO SCH ×2 (08:52→20:52)
[2022-04-05] MEDS: GABAPENTIN 300 MG CAP PO SCH ×2 (08:52→20:51)
[2022-04-05] MEDS: FUROSEMIDE 20 MG TAB PO SCH ×2 (08:52→16:36)
[2022-04-05] MEDS: allopurinoL 100 MG TAB PO SCH ×2 (08:52→20:51)
[2022-04-05] MEDS: INSULIN ASPART (NovoLOG) 100 UNIT/ML VIAL SQ SCH ×3 (08:52→18:22)
[2022-04-05] MEDS: FENOFIBRATE 160 MG TAB PO SCH ×2 (08:52→20:51)
[2022-04-05] MEDS: MONTELUKAST 10 MG TAB PO SCH (08:52)
[2022-04-05] MEDS: METOPROLOL SUCCINATE (ER) 25 MG TAB.ER.24H PO SCH (08:53)
[2022-04-05] MEDS: INSULIN DETEMIR (LEVEMIR) 100 UNIT/ML SYR SQ SCH ×2 (08:53→18:22)
[2022-04-05] MEDS: SODIUM ZIRCONIUM CYCLOSILICATE 10 GM PACKET PO SCH (08:56)
[2022-04-05] MEDS: BUDESONIDE 0.5 MG/2 ML NEBU INHALATION SCH ×2 (09:21→21:26)
[2022-04-05] MEDS: ALBUTEROL NEBULIZED 2.5 MG/3 ML INHALATION PRN ×3 (09:21→21:26)
[2022-04-05] MEDS: SODIUM FERRIC GLUCONAT-SUCROSE 125 MG in SODIUM CHLORIDE 0.9% 100 ML IVPB SCH (09:38)
--- NOTE | 2022-04-05 09:53 | P.GSCN ---
History of Present Illness Consult date: 04/05/22 Reason for Consult: Thrombus found on outpatient study Requesting physician: Ronald Washington History of present illness: This is a 56-year-old female with multiple comorbidities including morbid obesity, recent diagnosis of endometrial cancer, diabetes mellitus, hypertension, chronic renal disease, rheumatoid arthritis, lupus, thyroid disorder with recent hip fracture requiring surgical intervention who was a currently in subacute rehab. Patient apparently had some right upper extremity swelling that started 3-4 days ago. She had an venous duplex of the right upper extremity done at an outside facility that showed acute nonocclusive deep vein thrombosis in the right internal jugular, subclavian veins. Acute occlusive deep vein thrombosis in the right axillary vein. Superficial venous thrombosis and basilic veins. When she was admitted she had a repeat venous duplex of bilateral upper extremities which reported limited views however negative for DVT. There was superficial thrombus within the left cephalic and basilic veins. Thrombus was visualized within entire cephalic vein however was unable to be followed to junction of subclavian vein, ulnar veins not visualized due to patient's position and morbid obesity. Left arm negative for DVT, superficial thrombus with left cephalic, left basilic, axillary and ulnar veins not visualized due to patient's position and morbid obesity. Patient also has been having shortness of breath, venous duplex of lower extremities was ordered and really nondiagnostic study as patient apparently was unable to land her back it was a limited visibility due to edema and swelling however bilateral popliteal vessels were negative for DVT. CT angiogram of chest is deferred due to patient's kidney function. Primary medicine team had ordered a VQ scan however patient again was unable to complete study as she was unable to lie on her back due to her breathing and shortness of breath per patient. She does have some pain in the right upper extremity more so in her hand and wrist area. She has full range of motion of bilateral upper extremities. Review of Systems A 14 point review systems was completed all pertinent positives and negatives as stated in the HPI. Past Medical History Past Medical History: Cancer, Diabetes Mellitus, Deep Vein Thrombosis (DVT), Hypertension, Renal Disease, Rheumatoid Arthritis (RA), Thyroid Disorder Additional Past Medical History / Comment(s): O2 @ 4L. SLE LUPUS. STAGE 3 KIDNEY DISEASE. Leukemia, GRAVES DZ , kidney stones, gout, ovarian cancer (recent diagnosis, no treatment yet) History of Any Multi-Drug Resistant Organisms: None Reported Past Surgical History: No Surgical Hx Reported Additional Past Surgical History / Comment(s): BILATERAL ARTHROSCOPY KNEES. D & C (MISCARRIAGES). Past Anesthesia/Blood Transfusion Reactions: No Reported Reaction Past Psychological History: Anxiety Smoking Status: Never smoker Past Alcohol Use History: None Reported Past Drug Use History: None Reported - Past Family History Mother Family Medical History: Congestive Heart Failure (CHF), Diabetes Mellitus Father Family Medical History: Congestive Heart Failure (CHF), Dialysis, Hypertension Medications and Allergies Home Medications Medication Instructions Recorded Confirmed Type FLUoxetine HCL [PROzac] 20 mg PO BID@0900,2100 01/09/17 04/02/22 History Montelukast [Singulair] 10 mg PO DAILY 01/09/17 04/02/22 History gemfibroziL [Lopid] 600 tab PO BID 01/09/17 04/02/22 History Albuterol Inhaler [Ventolin Hfa 2 puff INHALATION RT-Q4H PRN 01/14/17 04/02/22 History Inhaler] Albuterol Nebulized [Ventolin 2.5 mg INHALATION RT-QID PRN 01/14/17 04/02/22 History Nebulized] allopurinoL [Zyloprim] 100 mg PO BID 01/21/22 04/02/22 History Atorvastatin [Lipitor] 10 mg PO HS 02/15/22 04/02/22 History Ondansetron [Zofran] 4 mg PO Q12HR PRN 02/15/22 04/02/22 History Pantoprazole [Protonix] 40 mg PO BID@0600,2100 02/15/22 04/02/22 History Acetaminophen Tab [Tylenol] 650 mg PO Q6HR PRN tab 03/28/22 04/02/22 Rx Aspirin 81 mg PO BID tab 03/28/22 04/02/22 Rx Ferrous Sulfate [Iron (65 MG 325 mg PO DAILY #30 tab 03/28/22 04/02/22 Rx Elemental)] Heparin Sodium,Porcine [Heparin 5,000 unit SQ Q12HR #60 each 03/28/22 04/02/22 Rx Sodium] Metoprolol Succinate (ER) [Toprol 75 mg PO DAILY tab 03/28/22 04/02/22 Rx XL] Primidone [Mysoline] 50 mg PO HS tab 03/28/22 04/02/22 Rx Sodium Zirconium Cyclosilicate 10 gm PO DAILY 7 Days #7 packet 03/28/22 04/02/22 Rx [Lokelma] Fluticasone/Vilanterol [Breo 1 puff INHALATION RT-BID 04/02/22 04/02/22 History Ellipta 200-25 Mcg Inhaler] Gabapentin [Gralise] 600 mg PO BID 04/02/22 04/02/22 History HYDROcodone/APAP 5-325MG [Frisco 1 tab PO Q6HR PRN 04/02/22 04/02/22 History 5-325] Insulin Glargine-Yfgn [Semglee 10 unit SQ BID@0900,1700 04/02/22 04/02/22 History (Yfgn) Pen] Insulin Lispro [humaLOG Kwikpen] 2 units SQ TID@0700,1100,1600 04/02/22 04/02/22 History Insulin Lispro [humaLOG Kwikpen] See Protocol SQ DIRECTED 04/02/22 04/02/22 History Midodrine HCl [ProAmatine] 10 mg PO TID@0700,1100,1600 04/02/22 04/02/22 History Sennosides-Docusate Sodium 2 tab PO HS 04/02/22 04/02/22 History [Senokot-S] Allergies Allergy/AdvReac Type Severity Reaction Status Date / Time ciprofloxacin [From Cipro] Allergy Swelling Verified 04/02/22 17:33 diphenhydramine Allergy Swelling Verified 04/02/22 17:33 [From Benadryl] iodine Allergy Swelling Verified 04/02/22 17:33 propoxyphene Allergy Swelling Verified 04/02/22 17:33 [From Darvocet-N] red dye Allergy Swelling Verified 04/02/22 17:33 sulfacetamide Allergy Swelling Verified 04/02/22 17:33 [From Sulfamide] yellow dye Allergy Swelling Verified 04/02/22 17:33 FLU VACCINE? Allergy Unknown Uncoded 04/02/22 15:17 Surgical - Exam Vital Signs Temp Pulse Resp BP Pulse Ox 98.4 F 73 18 155/75 97 04/02/22 15:13 04/02/22 15:13 04/02/22 15:13 04/02/22 15:13 04/02/22 15:13 General appearance: The patient is alert, oriented, appears in no acute distress. Morbidly obese. HET: Head is normocephalic and atraumatic. Pupils are equal and reactive. Neck: Supple. Heart: Regular. Lungs: Equal expansion, normal respiratory effort. Abdomen: Soft, morbidly obese, nontender, nondistended. Extremities: Bilateral palpable radial and ulnar pulses. Right upper extremity with some swelling mostly in the hand and forearm, with some discoloration/ purple in the hand. Patient has full range of motion. Neurological: No focal deficits. Alert and oriented. Results - Labs 04/05/22 05:05 04/05/22 05:05 Abnormal Lab Results - Last 24 Hours (Table) 04/04/22 04/04/22 04/04/22 Range/Units 11:14 17:16 20:13 RBC (3.80-5.40) m/uL Hgb (11.4-16.0) gm/dL Hct (34.0-46.0) % MCHC (31.0-37.0) g/dL RDW (11.5-15.5) % Chloride (98-107) mmol/L BUN (7-17) mg/dL Creatinine (0.52-1.04) mg/dL Glucose (74-99) mg/dL POC Glucose (mg/dL) 149 H 149 H 130 H (70-110) mg/dL 04/05/22 04/05/22 04/05/22 Range/Units 05:05 05:05 07:11 RBC 2.80 L (3.80-5.40) m/uL Hgb 7.9 L (11.4-16.0) gm/dL Hct 26.4 L (34.0-46.0) % MCHC 29.8 L (31.0-37.0) g/dL RDW 16.0 H (11.5-15.5) % Chloride 110 H (98-107) mmol/L BUN 34 H (7-17) mg/dL Creatinine 2.19 H (0.52-1.04) mg/dL Glucose 162 H (74-99) mg/dL POC Glucose (mg/dL) 163 H (70-110) mg/dL Diabetes panel 04/05/22 Range/Units 05:05 Sodium 141 (137-145) mmol/L Potassium 5.1 (3.5-5.1) mmol/L Chloride 110 H (98-107) mmol/L Carbon Dioxide 26 (22-30) mmol/L BUN 34 H (7-17) mg/dL Creatinine 2.19 H (0.52-1.04) mg/dL Glucose 162 H (74-99) mg/dL Calcium 8.4 (8.4-10.2) mg/dL Calcium panel 04/05/22 Range/Units 05:05 Calcium 8.4 (8.4-10.2) mg/dL Pituitary panel 04/05/22 Range/Units 05:05 Sodium 141 (137-145) mmol/L Potassium 5.1 (3.5-5.1) mmol/L Chloride 110 H (98-107) mmol/L Carbon Dioxide 26 (22-30) mmol/L BUN 34 H (7-17) mg/dL Creatinine 2.19 H (0.52-1.04) mg/dL Glucose 162 H (74-99) mg/dL Calcium 8.4 (8.4-10.2) mg/dL Adrenal panel 04/05/22 Range/Units 05:05 Sodium 141 (137-145) mmol/L Potassium 5.1 (3.5-5.1) mmol/L Chloride 110 H (98-107) mmol/L Carbon Dioxide 26 (22-30) mmol/L BUN 34 H (7-17) mg/dL Creatinine 2.19 H (0.52-1.04) mg/dL Glucose 162 H (74-99) mg/dL Calcium 8.4 (8.4-10.2) mg/dL Assessment and Plan Assessment: 1. Suspected right upper extremity DVT, discordant findings between outpatient venous duplex and inpatient venous duplex. 2. Shortness of breath 3. Recent diagnosis of endometrial cancer 4. Chronic kidney disease 5. Morbidly obese Plan: 1. Recommend oral anticoagulation for suspected right IJ, subclavian DVT we will defer medication choice to hematology/oncology 2. Elevate right upper extremity 3. Apply compression stocking/hose to right upper extremity 4. Recommend outpatient follow-up with vascular surgery in 2 weeks for repeat ultrasound Thank you for this consultation, we will sign off at this time. The impression and plan of care has been dictated as directed. I performed a history and examination of this patient, discussed the same with the dictator. I agree with the dictator's note ,documented as a scribe. Any additional findings or plans will be noted.
[2022-04-05 11:15] LABS: Glucose,Whole Blood 146 mg/dL (70-110)
--- NOTE | 2022-04-05 11:49 | P.PN ---
Subjective Progress Note Date: 04/05/22 Principal diagnosis: Right upper extremity edema, superficial venous thrombus. I'm evaluating this patient today on 04/03/2022. She is up on a general medical floor in no acute distress. She is currently maintained on 4 L nasal cannula. She arrived today the primary complaints of right upper extremity swelling and some mild shortness of breath on 04/02/2022. Patient was a recent discharge from [facility] following a left hip fracture. She had a brief stay in the intensive care unit for postoperative hypotension. The patient was discharged to [facility] on the junior on 03/28/2022, where she started to notice right upper extremity edema. Apparently, an outpatient Doppler was performed of bilateral upper extremities, but we do not have these reports. Patient's pertinent history includes uterine cancer, severe chronic bronchial asthma, chronic kidney disease stage III, diabetes, DVT, hypertension, rheumatoid arthritis, gout. Patient clearly has multiple risk factors for thrombosis. Patient is currently maintained on Ventolin inhaler as needed, Pulmicort, Singulair. High-intensity heparin is infusing Per protocol. Vital patient receiving IV push Lasix daily. Most recent CBC from 04/02/2022 reveals WBC count 8, hemoglobin 9, hematocrit 29, platelet count 312,000. INR 1.1, PTT 88. BMP appears relatively stable sodium 141, potassium 5.7, chloride 112, serum CO2 23, BUN 43, this creatinine 1.73, glucose 156. BMP 4960. Troponin negative. Nephrology is following. I'm evaluating this patient today on 04/04/2022. She remains on a general medical floor in no acute distress. She is laying down in bed on 4 L nasal cannula. Denies worsening shortness of breath. Denies cough, fever, chest pain, hemoptysis. There is modest improvement in her right upper extremity edema. The venous Doppler of the bilateral upper extremities from 04/03/2022 revealed no evidence of deep venous thrombosis, but showed superficial venous thrombus of the left cephalic and basilic veins on the right arm. Her heparin was discontinued due to some hematuria. Her hemoglobin count did drop approximately 1.5 g deciliter. The hematuria has since stopped. She has not been started on any oral anticoagulation. She does have history uterine cancer and has not started treatment yet. She continues to be maintain on Ventolin inhaler as needed, Pulmicort, Singulair. Repeat chest x-ray from today 04/04/2022 reveals cardiomegaly and pulmonary venous congestion and scattered interstitial and alveolar edema and increase in the right-sided pleural effus ion. She has been started on Lasix 60 mg by mouth twice a day by nephrology. She continues Lokelma. Her BMP is stable sodium 142, potassium 5.3, chloride 108, serum CO2 25, BUN 33, creatinine 1.9, glucose 176. Her fluid balance is -1 L. I am reevaluating this patient today on 04/05/2022. She still on the general medical floor no acute distress. Denies shortness of breath,lower cough, chest pain, hemoptysis, fever. Right upper extremity remains swollen. There are contradictory reports from the outpatient venous Doppler in the proximal right upper extremity which showed acute nonocclusive deep venous thrombus in the right internal jugular, subclavian veins. The report also indicated an acute occlusive deep vein thrombus in the right axillary vein, and superficial venous thrombus in the basilic vein. Follow-up Doppler of the upper extremities was read as above. She remains off heparin due to hematuria, which has resolved after discontinuation. Her CBC from today shows an improved hemoglobin of 7.9, hematocrit 26, CBC 6.2, platelets 290,000. Her BMP results from today show sodium of 141, potassium 5.1, chloride 110, serum CO2 26, BUN 34, creatinine 2.19, glucose 162. We have held off on contrast CT due to poor renal function. Hematology and oncology are following the patient. A lower extremity venous Doppler was performed which was technically poor quality study due to lower leg edema. They were able to rule out DVT in the bilateral popliteal vessel. we will continue DuoNeb inhalations, budesonide inhalation, and Singulair. Objective - Vital Signs Vital signs: Vital Signs Temp 97.7 F 04/05/22 07:13 Pulse 78 04/05/22 09:29 Resp 18 04/05/22 07:13 BP 101/64 04/05/22 07:13 Pulse Ox 97 04/05/22 09:21 FiO2 Intake & Output 04/04/22 04/05/22 04/05/22 18:59 06:59 18:59 Intake Total 160 Output Total 150 700 Balance -150 -540 Intake: IV 160 nsat 20 160 Output: Urine 150 700 Other: Voiding Method External Catheter External Catheter External Catheter # Voids 3 1 1 # Bowel Movements 1 1 1 - Exam GENERAL EXAM: Alert, morbidly obese female, comfortable in no apparent distress on 4 L nasal cannula. HEAD: Normocephalic. EYES: Normal reaction of pupils, equal size. NOSE: Clear with pink turbinates. THROAT: No erythema or exudates. NECK: No masses, no JVD. CHEST: No chest wall deformity. LUNGS: Equal air entry with no crackles, wheezes, or rhonchi. Dullness heard over the right posterior lower lobe CVS: S1 and S2 normal with no audible murmur, regular rhythm. ABDOMEN: No hepatosplenomegaly, normal bowel sounds, no guarding or rigidity. SPINE: No scoliosis or deformity SKIN: No rashes CENTRAL NERVOUS SYSTEM: No focal deficits, tone is normal in all 4 extremities. EXTREMITIES: There is moderate nonpitting edema of the right upper extremity; this is not apparent in the left upper extremity. No clubbing, no cyanosis. Peripheral pulses are intact. - Labs CBC & Chem 7: 04/05/22 05:05 04/05/22 05:05 Labs: Abnormal Lab Results - Last 24 Hours (Table) 04/04/22 04/04/22 04/05/22 Range/Units 17:16 20:13 05:05 RBC 2.80 L (3.80-5.40) m/uL Hgb 7.9 L (11.4-16.0) gm/dL Hct 26.4 L (34.0-46.0) % MCHC 29.8 L (31.0-37.0) g/dL RDW 16.0 H (11.5-15.5) % Chloride (98-107) mmol/L BUN (7-17) mg/dL Creatinine (0.52-1.04) mg/dL Glucose (74-99) mg/dL POC Glucose (mg/dL) 149 H 130 H (70-110) mg/dL 04/05/22 04/05/22 04/05/22 Range/Units 05:05 07:11 11:13 RBC (3.80-5.40) m/uL Hgb (11.4-16.0) gm/dL Hct (34.0-46.0) % MCHC (31.0-37.0) g/dL RDW (11.5-15.5) % Chloride 110 H (98-107) mmol/L BUN 34 H (7-17) mg/dL Creatinine 2.19 H (0.52-1.04) mg/dL Glucose 162 H (74-99) mg/dL POC Glucose (mg/dL) 163 H 146 H (70-110) mg/dL Assessment and Plan Assessment: Right superficial venous thrombosis of the right cephalic and basilic veins. Heparin infusion was discontinued due to hematuria. Hemoglobin stable at 7.9, hematocrit 26, hematology is consulted, and we will consult vascular. Hematuria. Heparin infusion was discontinued, and bleeding stopped on its own. CBC stable Anemia. Stable Right pleural effusion. Maintained on Lasix twice a day. severe chronic bronchial asthma is stable. Currently maintained on when necessary albuterol nebulizations, Pulmicort nebulization, Singulair. uterine cancer, awaiting treatment. Oncology is following Left hip fracture status post repair chronic kidney disease stage III is stable. Nephrology is following. Hyperkalemia being treated with Shahriarhi, nephrology is following. Heart failure with preserved ejection fraction is stable . recent echocardiogram on 02/15/2022 estimated ejection fraction 55-60% with moderate left ventricular hypertrophy. diabetes mellitus type 2 insulin-dependent Primary hypertension rheumatoid arthritis Plan: Continue supplemental oxygen with 3L nasal cannula, may titrate accordingly, to maintain oxygen saturation greater than 92%. Heparin was discontinued. We'll defer anticoagulation to hematology We will wait on computed tomography scan of chest with angiogram due to poor renal function Continue albuterol nebulizations, Pulmicort nebulization, Singulair. Continue Lokelma for hyperkalemia Continue furosemide 60 mg twice a day Oncology is following Consult vascular surgery Patient appears stable from a pulmonary standpoint, will see as needed. I have personally seen and examined the patient, performed the documentation and the assessment and plan as written. Number of minutes spent on the visit: 10.
[2022-04-05] MEDS ORDERED: DESMOPRESSIN ACETATE 30 MCG in SODIUM CHLORIDE 0.9% 50 ML IVPB ONE (13:00)
--- NOTE | 2022-04-05 13:52 | P.CONS ---
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 She is status post biopsy having not yet started any treatment. Secondary to significant medical comorbidities, the patient was felt to be a poor surgical candidate. The patient unfortunately suffered a fall on March 17 with a fracture of the left femur. She underwent IM nail placement, and now unfortunately was sent back to the hospital from her rehabilitation secondary to right upper extremity swelling and concern for DVT. As noted above, the patient was hospitalized on March 17 after a fall and was found to have a fracture in the left hip. On March 18 she underwent ORIF of the left femur and was subsequently discharged on March 20 to subacute rehabilitation. The patient re-presented to the hospital on April 02 with concern of a right upper extremity DVT. Doppler performed on April 03 revealed SVT of the right upper extremity, but unfortunately her outside report was suspicious for underlying DVT. The patient subsequently is planning to have anticoagulation started later this afternoon. At this time, the patient reports only some mild vaginal spotting. She states that this is intermittent however, and she can have periods of heavy or bleeding. The nurse taking care of her has noticed only slight spotting on her brief period the patient does report feeling a bit more short of breath however. She is currently stable on her home O2 level. She is a bit concerned about being able to lie flat comfortably. Of note, the patient's previous hemoglobin level was ranging from 10-11, and has dropped down to 7.9 earlier today. Review of Systems Constitutional: Denies chills, Denies fever Eyes: denies blurred vision Cardiovascular: Denies chest pain Respiratory: Reports dyspnea, Denies cough Gastrointestinal: Denies BRBPR Menstruation: Reports as per HPI, Reports postmenopausal Past Medical History Past Medical History: Cancer, Diabetes Mellitus, Deep Vein Thrombosis (DVT), Hypertension, Renal Disease, Rheumatoid Arthritis (RA), Thyroid Disorder Additional Past Medical History / Comment(s): O2 @ 4L. SLE LUPUS. STAGE 3 KIDNEY DISEASE. Leukemia, GRAVES DZ , kidney stones, gout, Uterine cancer (recent diagnosis, no treatment yet) History of Any Multi-Drug Resistant Organisms: None Reported Past Surgical History: No Surgical Hx Reported Additional Past Surgical History / Comment(s): BILATERAL ARTHROSCOPY KNEES. D & C (MISCARRIAGES). Past Anesthesia/Blood Transfusion Reactions: No Reported Reaction Past Psychological History: Anxiety Smoking Status: Never smoker Past Alcohol Use History: None Reported Past Drug Use History: None Reported - Past Family History Mother Family Medical History: Congestive Heart Failure (CHF), Diabetes Mellitus Father Family Medical History: Congestive Heart Failure (CHF), Dialysis, Hypertension Medications and Allergies Home Medications Medication Instructions Recorded Confirmed Type FLUoxetine HCL [PROzac] 20 mg PO BID@0900,2100 01/09/17 04/02/22 History Montelukast [Singulair] 10 mg PO DAILY 01/09/17 04/02/22 History gemfibroziL [Lopid] 600 tab PO BID 01/09/17 04/02/22 History Albuterol Inhaler [Ventolin Hfa 2 puff INHALATION RT-Q4H PRN 01/14/17 04/02/22 History Inhaler] Albuterol Nebulized [Ventolin 2.5 mg INHALATION RT-QID PRN 01/14/17 04/02/22 History Nebulized] allopurinoL [Zyloprim] 100 mg PO BID 01/21/22 04/02/22 History Atorvastatin [Lipitor] 10 mg PO HS 02/15/22 04/02/22 History Ondansetron [Zofran] 4 mg PO Q12HR PRN 02/15/22 04/02/22 History Pantoprazole [Protonix] 40 mg PO BID@0600,2100 02/15/22 04/02/22 History Acetaminophen Tab [Tylenol] 650 mg PO Q6HR PRN tab 03/28/22 04/02/22 Rx Aspirin 81 mg PO BID tab 03/28/22 04/02/22 Rx Ferrous Sulfate [Iron (65 MG 325 mg PO DAILY #30 tab 03/28/22 04/02/22 Rx Elemental)] Heparin Sodium,Porcine [Heparin 5,000 unit SQ Q12HR #60 each 03/28/22 04/02/22 Rx Sodium] Metoprolol Succinate (ER) [Toprol 75 mg PO DAILY tab 03/28/22 04/02/22 Rx XL] Primidone [Mysoline] 50 mg PO HS tab 03/28/22 04/02/22 Rx Sodium Zirconium Cyclosilicate 10 gm PO DAILY 7 Days #7 packet 03/28/22 04/02/22 Rx [Lokelma] Fluticasone/Vilanterol [Breo 1 puff INHALATION RT-BID 04/02/22 04/02/22 History Ellipta 200-25 Mcg Inhaler] Gabapentin [Gralise] 600 mg PO BID 04/02/22 04/02/22 History HYDROcodone/APAP 5-325MG [[place] 1 tab PO Q6HR PRN 04/02/22 04/02/22 History 5-325] Insulin Glargine-Yfgn [Semglee 10 unit SQ BID@0900,1700 04/02/22 04/02/22 History (Yfgn) Pen] Insulin Lispro [humaLOG Kwikpen] 2 units SQ TID@0700,1100,1600 04/02/22 04/02/22 History Insulin Lispro [humaLOG Kwikpen] See Protocol SQ DIRECTED 04/02/22 04/02/22 History Midodrine HCl [ProAmatine] 10 mg PO TID@0700,1100,1600 04/02/22 04/02/22 History Sennosides-Docusate Sodium 2 tab PO HS 04/02/22 04/02/22 History [Senokot-S] Allergies Allergy/AdvReac Type Severity Reaction Status Date / Time ciprofloxacin [From Cipro] Allergy Swelling Verified 04/02/22 17:33 diphenhydramine Allergy Swelling Verified 04/02/22 17:33 [From Benadryl] iodine Allergy Swelling Verified 04/02/22 17:33 propoxyphene Allergy Swelling Verified 04/02/22 17:33 [From Darvocet-N] red dye Allergy Swelling Verified 04/02/22 17:33 sulfacetamide Allergy Swelling Verified 04/02/22 17:33 [From Sulfamide] yellow dye Allergy Swelling Verified 04/02/22 17:33 FLU VACCINE? Allergy Unknown Uncoded 04/02/22 15:17 Physical Exam Vitals: Vital Signs Temp Pulse Pulse Resp BP Pulse Ox 04/05/22 12:00 82 04/05/22 11:51 80 04/05/22 09:29 78 04/05/22 09:21 76 97 04/05/22 07:13 97.7 F 80 18 101/64 97 12/23/22 02:30 98.2 F 81 18 111/66 96 04/04/22 20:21 84 04/04/22 20:06 82 98 04/04/22 20:00 18 04/04/22 19:05 97.8 F 87 18 99/53 94 L 04/04/22 17:23 86 04/04/22 17:13 86 Intake and Output 04/04/22 04/05/22 04/05/22 22:59 06:59 14:59 Intake Total 160 Output Total 150 700 Balance -150 -540 Intake: IV 160 nsat 20 160 Output: Urine 150 700 Other: Voiding Method External Catheter External Catheter # Voids 1 1 1 # Bowel Movements 1 1 - Constitutional General appearance: morbidly obese - EENT Eyes: EOMI, PERRLA ENT: hearing grossly normal - Neck Neck: no lymphadenopathy - Respiratory Respiratory: right: diminished, left: CTA - Cardiovascular Rhythm: regular - Gastrointestinal General gastrointestinal: no tenderness - Integumentary Integumentary: no calor, no cellulitis - Neurologic Neurologic: CNII-XII intact - Musculoskeletal Musculoskeletal: strength equal bilaterally - Psychiatric Psychiatric: A&O x's 3, appropriate affect Right upper extremity does have mild edema Results CBC & Chem 7: 04/05/22 05:05 04/05/22 05:05 Labs: Abnormal Lab Results - Last 24 Hours (Table) 04/04/22 04/04/22 04/05/22 Range/Units 17:16 20:13 05:05 RBC 2.80 L (3.80-5.40) m/uL Hgb 7.9 L (11.4-16.0) gm/dL Hct 26.4 L (34.0-46.0) % MCHC 29.8 L (31.0-37.0) g/dL RDW 16.0 H (11.5-15.5) % Chloride (98-107) mmol/L BUN (7-17) mg/dL Creatinine (0.52-1.04) mg/dL Glucose (74-99) mg/dL POC Glucose (mg/dL) 149 H 130 H (70-110) mg/dL 04/05/22 04/05/22 04/05/22 Range/Units 05:05 07:11 11:13 RBC (3.80-5.40) m/uL Hgb (11.4-16.0) gm/dL Hct (34.0-46.0) % MCHC (31.0-37.0) g/dL RDW (11.5-15.5) % Chloride 110 H (98-107) mmol/L BUN 34 H (7-17) mg/dL Creatinine 2.19 H (0.52-1.04) mg/dL Glucose 162 H (74-99) mg/dL POC Glucose (mg/dL) 163 H 146 H (70-110) mg/dL Assessment and Plan Assessment: The patient is a 56-year-old female with a history of a 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 She is status post biopsy having not yet started any treatment. Secondary to significant medical comorbidities, the patient was felt to be a poor surgical candidate. The patient unfortunately suffered a fall on March 17 with a fracture of the left femur. She underwent IM nail placement, and now unfortunately was sent back to the hospital from her rehabilitation secondary to right upper extremity swelling and concern for DVT. Plan: 1. Vaginal bleeding: The patient reports her bleeding is relatively mild at this time. However, there is concern that this may increase upon starting anticoagulation. Recommend monitoring CBC closely, and transfuse as needed. I discussed with the patient that if she does experience an increase in vaginal bleeding, that we could start radiotherapy to help control the bleeding. 2. Uterine cancer: As noted above, the patient presents with clinically in early stage uterine cancer. She had no clear evidence of metastatic disease based on her imaging from February. However, I did recommend the patient undergo MRI of the pelvis to better assess the local extent of disease. His appointment unfortunately was missed secondary to the patient having suffered the left hip fracture. We may be able to have this performed during this inpatient stay. The patient was hopeful that she would eventually be a surgical candidate for her uterine cancer, but that unfortunately appears even less likely in light of her recent hospitalization. We will continue to follow this patient. Time with Patient: Greater than 30
[2022-04-05] MEDS ORDERED: HEPARIN SODIUM 1,000 UN/ML (10ML VL) IV ONE (14:48)
[2022-04-05 15:23] LABS: Basophils # (A) 0.1 k/uL (0-0.2); Basophils % (A) 1 %; Eosinophils # (A) 0.3 k/uL (0-0.7); Eosinophils % (A) 5 %; HCT 24.3 % (34.0-46.0); HGB 7.3 gm/dL (11.4-16.0); Hypochromasia Marked; Lymphocytes # (A) 1.1 k/uL (1.0-4.8); Lymphocytes % (A) 16 %; MCH 28.1 pg (25.0-35.0); MCHC 29.9 g/dL (31.0-37.0); MCV 94.1 fL (80.0-100.0); Mean Platelet Volume 8.1; Monocytes # (A) 0.4 k/uL (0-1.0); Monocytes % (A) 5 %; Neutrophils % (A) 72 %; Platelet Count 224 k/uL (150-450); RBC 2.59 m/uL (3.80-5.40); RDW 15.9 % (11.5-15.5)
[2022-04-05 15:32] LABS: INR 1.2 (<1.2); Partial Thromboplastin Time 25.4 sec (22.0-30.0); Prothrombin Time 11.9 sec (9.0-12.0)
--- NOTE | 2022-04-05 16:14 | P.PN ---
Subjective Progress Note Date: 04/05/22 This is a pleasant 56-year-old female who recently presented to the emergency department via EMS as she was at a long term rehab and having some right arm swelling noted to have a blood clot in her right internal carotid right subclavian and right axillary vein that was shown an ultrasound done today. Patient also having some difficulty in breathing. Patient chronically wears 4 L via nasal cannula outpatient. Patient had been on subcutaneous heparin while at rehab. Patient has a past medical history of ovarian cancer, diabetes mellitus, DVT, hypertension, renal disease, rheumatoid arthritis, hypothyroid, lupus, and recent left hip fracture requiring surgical intervention. Patient is morbidly obese with a BMI of 59.4 and has been having difficulty ambulating since the fall. Patient was initiated on IV heparin in the ER. Patient with significant chronic kidney disease and poor kidney functions unable to receive a computed tomography scan and was admitted for further evaluation of this DVT and shortness of breath. Nephrology was consulted along with pulmonary. Patient's primary care provider is Dr. Alicea in the outpatient setting. EKG showed sinus rhythm, chest x-ray showed cardiomegaly with right lower lung opacification most likely atelectasis with suboptimal study due to body habitus, and repeat venous Doppler was done showing no evidence of DVT and there is a superficial thrombus noted within the left cephalic and basilar veins. This revealed a hemoglobin of 9, INR was 1.1, sodium 141 with a potassium of 5.7, creatinine 1.73, BNP 4960 and troponins were negative. 04/04/2022 Patient is seen and evaluated in follow-up today reports to feeling better and continues with generalized aches and pains. Recommend working with physical therapy daily for continued weakness. Patient reports she wants to go home with home care and does not want to return to rehab. Multiple medical consultations nephrology, hematology oncology. Patient with endometrial cancer did discuss with oncologist insulin and also met with radiology oncology Dr. Bradford although has yet to follow-up outpatient as patient has been in and out of the hospital and rehab. Patient was noted to have hematuria and heparin was stopped as Doppler study was negative. Outside report reports positive DVT and hematology was placed on consult. Records being reviewed and recommend VQ scan along with bilateral lower extremity Dopplers this patient's kidney functions are unstable. Patient is high risk for clots but also high risk for bleeding and continues with anemia. Patient is currently afebrile denies chest pain or worsening shortness of breath. Patient chronically wears 4 L outpatient maintained on that. Reports of nausea or vomiting and patient tolerating diet. Recommend monitoring sugars closely. 04/05/2022 Patient is seen in follow-up today with multiple medical consultations following including vascular surgery that was consulted, hematology, pulmonary, nephrology. Patient was unable to tolerate the VQ scan of the chest with concerns of DVT on the right and will be restarted on IV heparin and radiation oncology being consulted. Patient will be given a dose of DDAVP to minimize the bleeding as she is difficult to anticoagulate given her history of endometrial cancer and anemia. Patient's hemoglobin today is 7.3 WBC remains within normal limits and kidney functions elevated although somewhat stable at 2.19. Nephrology is following recommend continue with low potassium diet as potassium is found to be 5.1 today. Patient is maintained on Lokelma. Patient also receiving IV iron and Lasix has been transitioned to by mouth. Venous Dopplers of bilateral lower extremities were negative for DVT. Recent activity as tolerated and recommend physical therapy daily as patient wishes to return home once discharged. Patient is significantly weak and requires much encouragement to be mobile. Review of systems: Constitutional: No reports of fatigue, fever, or chills Cardiovascular: No reports of chest pain or palpitations Respiratory: No reports of worsening shortness of breath or cough GI: No reports of nausea, vomiting, or diarrhea : No reports of dysuria or retention Neurovascular: reports of generalized weakness All medications have been reviewed Active Medications Acetaminophen (Acetaminophen Tab 325 Mg Tab) 650 mg PO Q6HR PRN PRN Reason: Fever and/ or Pain Hydrocodone Bitart/Acetaminophen (Hydrocodone/Apap 5-325mg 1 Each Tab) 1 each PO Q6HR PRN PRN Reason: Pain Scale 1 to 5 Last Admin: 04/05/22 13:22 Dose: 1 each Albuterol Sulfate (Albuterol Hfa Inhaler) 2 puff INHALATION RT-Q4H PRN PRN Reason: Shortness Of Breath Albuterol Sulfate (Albuterol Nebulized 2.5 Mg/3 Ml) 2.5 mg INHALATION RT-QID PRN PRN Reason: Shortness Of Breath Last Admin: 04/05/22 11:51 Dose: 2.5 mg Allopurinol (Allopurinol 100 Mg Tab) 100 mg PO BID [facility] Last Admin: 04/05/22 08:52 Dose: 100 mg Aspirin (Aspirin 81 Mg) 81 mg PO BID [facility] Last Admin: 04/05/22 08:52 Dose: 81 mg Atorvastatin Calcium (Atorvastatin 10 Mg Tab) 10 mg PO HS [facility] Last Admin: 04/04/22 20:15 Dose: 10 mg Budesonide (Budesonide 0.5 Mg/2 Ml Nebu) 0.5 mg INHALATION RT-BID [facility] Last Admin: 04/05/22 09:21 Dose: 0.5 mg Fenofibrate (Fenofibrate 160 Mg Tab) 160 mg PO BID [facility] Last Admin: 04/05/22 08:52 Dose: 160 mg Ferrous Sulfate (Ferrous Sulfate 325 Mg Tab) 325 mg PO DAILY [facility] Last Admin: 04/05/22 08:52 Dose: 325 mg Fluoxetine HCl (Fluoxetine Hcl 20 Mg Cap) 20 mg PO BID@0900,2100 [facility] Last Admin: 04/05/22 08:52 Dose: 20 mg Furosemide (Furosemide 20 Mg Tab) 60 mg PO BID@0900,1600 [facility] Last Admin: 04/05/22 08:52 Dose: 60 mg Gabapentin (Gabapentin 300 Mg Cap) 600 mg PO BID [facility] Last Admin: 04/05/22 08:52 Dose: 600 mg Heparin Sodium (Porcine) (Heparin Sodium 1,000 Un/Ml (10ml Vl)) 0 unit IV PER PROTOCOL PRN; Protocol PRN Reason: Low PTT Ferric Sodium Gluconate 125 mg (/ Sodium Chloride) 110 mls @ 100 mls/hr IVPB DAILY [facility] Stop: 04/07/22 10:05 Last Admin: 04/05/22 09:38 Dose: 100 mls/hr Heparin Sodium/Sodium Chloride (25,000 unit/ Sodium Chloride) 250 mls @ 10.015 mls/hr IV .Q24H [facility]; Protocol Insulin Aspart (Insulin Aspart (Novolog) 100 Unit/Ml Vial) 2 unit SQ TID@0700,1100,1600 [facility] Last Admin: 04/05/22 13:16 Dose: 2 unit Insulin Detemir (Insulin Detemir (Levemir) 100 Unit/Ml Syr) 10 unit SQ BID@0900,1700 [facility] Last Admin: 04/05/22 08:53 Dose: 10 unit Lorazepam (Lorazepam 2 Mg/Ml Inj) 1 mg IV ONCE PRN PRN Reason: Anxiety Last Admin: 04/04/22 12:47 Dose: 1 mg Metoprolol Succinate (Metoprolol Succinate (Er) 25 Mg Tab.Er.24h) 75 mg PO DAILY [facility] Last Admin: 04/05/22 08:53 Dose: 75 mg Montelukast Sodium (Montelukast 10 Mg Tab) 10 mg PO DAILY [facility] Last Admin: 04/05/22 08:52 Dose: 10 mg Ondansetron HCl (Ondansetron 4 Mg Tab) 4 mg PO Q12HR PRN PRN Reason: Nausea Pantoprazole Sodium (Pantoprazole 40 Mg Tablet) 40 mg PO BID@0600,2100 [facility] Last Admin: 04/05/22 06:01 Dose: 40 mg Primidone (Primidone 50 Mg Tab) 50 mg PO HS [facility] Last Admin: 04/04/22 20:15 Dose: 50 mg Senna/Docusate Sodium (Sennosides-Docusate Sodium 1 Each Tab) 2 each PO HS [facility] Last Admin: 04/04/22 20:15 Dose: 2 each Sodium Zirconium Cyclosilicate (Sodium Zirconium Cyclosilicate 10 Gm Packet) 10 gm PO DAILY [facility] Last Admin: 04/05/22 08:56 Dose: 10 gm PHYSICAL EXAMINATION: GENERAL: The patient is alert and oriented x4, Well developed, well nourished. Morbidly obese HEENT: Pupils are round and equally reacting to light. EOMI. no scleral icterus. No conjunctival pallor. Normocephalic, atraumatic. No pharyngeal erythema. No thyromegaly. CARDIOVASCULAR: S1 and S2 muffled PULMONARY: diminished breath sounds bilaterally with no wheezing or rhonchi noted. ABDOMEN: soft. Nontender on exam. obese. non-distended, normoactive bowel sounds. No palpable organomegaly. MUSCULOSKELETAL: No joint swelling or deformity. EXTREMITIES: No cyanosis, clubbing, or pedal edema. Generalized edema noted throughout upper and lower extremities NEUROLOGICAL: Gross neurological examination did not reveal any focal deficits. Diffuse weakness SKIN: No rashes. Assessment: Right arm swelling due to superficial thrombophlebitis with no evidence of DVT on Doppler here although outpatient Doppler was suggestive of DVT, nonocclusive in the right internal jugular and subclavian veins with an acute occlusive deep vein thrombosis in the right axillary vein Severe chronic bronchial asthma, not in exacerbation Hyperkalemia History of recent left hip fracture, status post repair last admission Chronic kidney disease stage III History of heart failure with preserved EF, recent EF is 55-60, not in exacerbation Diabetes mellitus, type II, insulin-dependent Hypertension History of rheumatoid arthritis History of recent diagnosis of endometrial cancer, needs outpatient follow-up a nd has not received treatment yet GI prophylaxis DVT prophylaxis on IV heparin Full code Plan: Recommend to continue with current medications and management and pulmonary along with nephrology, hematology following. Vascular surgery consulted recommending anticoagulation and patient will be initiated on IV heparin and given a dose of DDAVP to minimize the bleeding and radiation oncology being consulted for possible palliative radiation Home medications have been reviewed and resumed Given patient's multiple medical comorbidities and anemia with endometrial cancer patient is difficult to anticoagulate and hematology is following with recommendations being made. Recommend follow-up labs to monitor CBC and BMP Potassium continues to be elevated and maintained on lokelma nephrology follow ing. Recommend low potassium diet Recommend to continue with oral Lasix per nephrology and daily lokelma for now Encouraged increase activity as tolerated Recommend to monitor Accu-Cheks before meals and at bedtime and will use sliding scale Patient's discharge planning his changed and patient would like to go home with home care when stable. Patient does not want to return to rehab Due to multiple complex medical issues, prognosis is guarded The impression and plan of care has been dictated by Fabienne Fortune, nurse practitioner as directed. Dr. Krasten MD I have performed a history and examination and MDM of this patient, discussed the same with the dictator, and agree with the dictator's assessment and plan as written ,documented as a scribe. Based on total visit time, I have performed more than 50% of the visit. Any additional findings or plans will be noted. Objective - Vital Signs Vital signs: Vital Signs Temp 97.9 F 04/05/22 13:18 Pulse 79 04/05/22 13:18 Resp 20 04/05/22 13:18 BP 145/83 04/05/22 13:18 Pulse Ox 95 04/05/22 13:18 FiO2 Intake & Output 04/04/22 04/05/22 04/05/22 18:59 06:59 18:59 Intake Total 160 Output Total 150 700 Balance -150 -540 Intake: IV 160 nsat 20 160 Output: Urine 150 700 Other: Voiding Method External Catheter External Catheter External Catheter # Voids 3 1 1 # Bowel Movements 1 1 1 - Labs CBC & Chem 7: 04/05/22 15:14 04/05/22 05:05 Labs: Abnormal Lab Results - Last 24 Hours (Table) 04/04/22 04/04/22 04/05/22 Range/Units 17:16 20:13 05:05 RBC 2.80 L (3.80-5.40) m/uL Hgb 7.9 L (11.4-16.0) gm/dL Hct 26.4 L (34.0-46.0) % MCHC 29.8 L (31.0-37.0) g/dL RDW 16.0 H (11.5-15.5) % INR (<1.2) Chloride (98-107) mmol/L BUN (7-17) mg/dL Creatinine (0.52-1.04) mg/dL Glucose (74-99) mg/dL POC Glucose (mg/dL) 149 H 130 H (70-110) mg/dL 04/05/22 04/05/22 04/05/22 Range/Units 05:05 07:11 11:13 RBC (3.80-5.40) m/uL Hgb (11.4-16.0) gm/dL Hct (34.0-46.0) % MCHC (31.0-37.0) g/dL RDW (11.5-15.5) % INR (<1.2) Chloride 110 H (98-107) mmol/L BUN 34 H (7-17) mg/dL Creatinine 2.19 H (0.52-1.04) mg/dL Glucose 162 H (74-99) mg/dL POC Glucose (mg/dL) 163 H 146 H (70-110) mg/dL 04/05/22 04/05/22 Range/Units 15:14 15:14 RBC 2.59 L (3.80-5.40) m/uL Hgb 7.3 L (11.4-16.0) gm/dL Hct 24.3 L (34.0-46.0) % MCHC 29.9 L (31.0-37.0) g/dL RDW 15.9 H (11.5-15.5) % INR 1.2 H (<1.2) Chloride (98-107) mmol/L BUN (7-17) mg/dL Creatinine (0.52-1.04) mg/dL Glucose (74-99) mg/dL POC Glucose (mg/dL) (70-110) mg/dL
--- NOTE | 2022-04-05 16:19 | P.PN ---
Subjective Progress Note Date: 04/05/22 Principal diagnosis: RUE swelling, DVT of right subclavian vein and right axillary vein, endometrial adenocarcinoma Pt is sitting up in chair, reports feeling well. No reports of vaginal bleeding at this time Objective - Vital Signs Vital signs: Vital Signs Temp 97.7 F 04/05/22 07:13 Pulse 82 04/05/22 12:00 Resp 18 04/05/22 07:13 BP 101/64 04/05/22 07:13 Pulse Ox 97 04/05/22 09:21 FiO2 Intake & Output 04/04/22 04/05/22 04/05/22 18:59 06:59 18:59 Intake Total 160 Output Total 150 700 Balance -150 -540 Intake: IV 160 nsat 20 160 Output: Urine 150 700 Other: Voiding Method External Catheter External Catheter External Catheter # Voids 3 1 1 # Bowel Movements 1 1 1 - Constitutional General appearance: Present: cooperative, mild distress, obese - EENT Eyes: Present: anicteric sclerae, EOMI ENT: Present: hearing grossly normal - Neck Neck: Absent: lymphadenopathy - Respiratory Respiratory: bilateral: CTA - Cardiovascular Details: Diffuse swelling of RUE with mild erythema Rhythm: regular Heart sounds: normal: S1, S2 Abnormal Heart Sounds: Absent: systolic murmur, diastolic murmur, rub, S3 Gallop, S4 Gallop, click, other - Peripheral edema leg Peripheral Edema: bilateral: Trace - Gastrointestinal General gastrointestinal: Present: normal bowel sounds, soft. Absent: absent bowel sounds, decreased bowel sounds, distended, hepatomegaly, hyperactive bowel sounds, organomegaly, rigid, scaphoid, splenomegaly, tenderness, umbilical hernia, ventral hernia - Integumentary Integumentary: Present: pale - Neurologic Neurologic: Present: CNII-XII intact - Musculoskeletal Musculoskeletal: Present: generalized weakness - Psychiatric Psychiatric: Present: A&O x's 3, appropriate affect, intact judgment & insight - Labs CBC & Chem 7: 04/05/22 15:14 04/05/22 05:05 Labs: Abnormal Lab Results - Last 24 Hours (Table) 04/04/22 04/04/22 04/05/22 Range/Units 17:16 20:13 05:05 RBC 2.80 L (3.80-5.40) m/uL Hgb 7.9 L (11.4-16.0) gm/dL Hct 26.4 L (34.0-46.0) % MCHC 29.8 L (31.0-37.0) g/dL RDW 16.0 H (11.5-15.5) % Chloride (98-107) mmol/L BUN (7-17) mg/dL Creatinine (0.52-1.04) mg/dL Glucose (74-99) mg/dL POC Glucose (mg/dL) 149 H 130 H (70-110) mg/dL 04/05/22 04/05/22 04/05/22 Range/Units 05:05 07:11 11:13 RBC (3.80-5.40) m/uL Hgb (11.4-16.0) gm/dL Hct (34.0-46.0) % MCHC (31.0-37.0) g/dL RDW (11.5-15.5) % Chloride 110 H (98-107) mmol/L BUN 34 H (7-17) mg/dL Creatinine 2.19 H (0.52-1.04) mg/dL Glucose 162 H (74-99) mg/dL POC Glucose (mg/dL) 163 H 146 H (70-110) mg/dL - Imaging and Cardiology Venous US: report reviewed Assessment and Plan (1) Endometrial adenocarcinoma Current Visit: Yes Status: Acute Priority: High Code(s): C54.1 - MALIGNANT NEOPLASM OF ENDOMETRIUM SNOMED Code(s): 318365818 (2) DVT of axillary vein, acute right Current Visit: Yes Status: Acute Priority: High Code(s): I82.A11 - ACUTE EMBOLISM AND THROMBOSIS OF RIGHT AXILLARY VEIN SNOMED Code(s): 887913705785893 (3) Thrombosis of internal carotid Current Visit: Yes Status: Acute Priority: High Code(s): I65.29 - OCCLUSION AND STENOSIS OF UNSPECIFIED CAROTID ARTERY SNOMED Code(s): 130847865 (4) Thrombosis of subclavian artery Current Visit: Yes Status: Acute Priority: High Code(s): I74.8 - EMBOLISM AND THROMBOSIS OF OTHER ARTERIES SNOMED Code(s): 870349036 Plan: BLE dopplers negative for DVT. Patient unable to tolerate VQ scan. RUE doppler report from [facility] reviewed. She was unable to position properly on repeat doppler of RUE, so will treatment patient based on doppler report from [facility] Discussed in depth with patient risks vs benefits of starting heparin therapy, with recent Hx of vaginal bleeding likely due to endometrial carcinoma. She verbalized understanding. Agreeable to start heparin drip. Spoke with Dr Bradford Rad Onc. Plan to begin radiation next week to help control vaginal bleeding Most recent CBC from today reveals hemoglobin 7.9 (7.2 yesterday), platelet count 290K. DDAVP order placed to tyr and control some bleeding before starting heparin. Heparin low intensity protocol ordered. Heparin bolus given 2 days ago, at [facility] time PTT was 88. Spoke with primary RN, requested PTT results prior to starting heparin. PTT 25-ok to start low Intensity heparin, with bolus. Will continue to monitor CBC/coags. Transfuse for Hgb<7. Continue pareneteral iron daily Dr. Lockhartests: I have seen and examined pt, performed H&P, developed impression and plan of care. Discussed with dictator, agree with documentation, dictated as a scribe.
[2022-04-05] MEDS: HEPARIN SOD,PORK IN 0.45% NACL 25,000 UNIT in 0.45% NACL 1 250ML.BAG IV SCH (16:34)
[2022-04-05 17:19] LABS: Glucose,Whole Blood 146 mg/dL (70-110)
--- NOTE | 2022-04-05 17:29 | P.PN ---
Subjective Progress Note Date: 04/05/22 Follow-up for acute kidney injury. Aquino catheter has been removed, admits making good amount of urine. Urine output of 850 ML's in the last 24 hours documented. Objective - Vital Signs Vital signs: Vital Signs Temp 97.9 F 04/05/22 13:18 Pulse 79 04/05/22 13:18 Resp 20 04/05/22 13:18 BP 145/83 04/05/22 13:18 Pulse Ox 95 04/05/22 13:18 FiO2 Intake & Output 04/04/22 04/05/22 04/05/22 18:59 06:59 18:59 Intake Total 160 Output Total 150 700 Balance -150 -540 Intake: IV 160 nsat 20 160 Output: Urine 150 700 Other: Voiding Method External Catheter External Catheter External Catheter # Voids 3 1 1 # Bowel Movements 1 1 1 - Exam No acute distress S1-S2 heard Lungs clear Edema - Labs CBC & Chem 7: 04/05/22 15:14 04/05/22 05:05 Labs: Abnormal Lab Results - Last 24 Hours (Table) 04/04/22 04/05/22 04/05/22 Range/Units 20:13 05:05 05:05 RBC 2.80 L (3.80-5.40) m/uL Hgb 7.9 L (11.4-16.0) gm/dL Hct 26.4 L (34.0-46.0) % MCHC 29.8 L (31.0-37.0) g/dL RDW 16.0 H (11.5-15.5) % INR (<1.2) Chloride 110 H (98-107) mmol/L BUN 34 H (7-17) mg/dL Creatinine 2.19 H (0.52-1.04) mg/dL Glucose 162 H (74-99) mg/dL POC Glucose (mg/dL) 130 H (70-110) mg/dL 04/05/22 04/05/22 04/05/22 Range/Units 07:11 11:13 15:14 RBC 2.59 L (3.80-5.40) m/uL Hgb 7.3 L (11.4-16.0) gm/dL Hct 24.3 L (34.0-46.0) % MCHC 29.9 L (31.0-37.0) g/dL RDW 15.9 H (11.5-15.5) % INR (<1.2) Chloride (98-107) mmol/L BUN (7-17) mg/dL Creatinine (0.52-1.04) mg/dL Glucose (74-99) mg/dL POC Glucose (mg/dL) 163 H 146 H (70-110) mg/dL 04/05/22 04/05/22 Range/Units 15:14 17:18 RBC (3.80-5.40) m/uL Hgb (11.4-16.0) gm/dL Hct (34.0-46.0) % MCHC (31.0-37.0) g/dL RDW (11.5-15.5) % INR 1.2 H (<1.2) Chloride (98-107) mmol/L BUN (7-17) mg/dL Creatinine (0.52-1.04) mg/dL Glucose (74-99) mg/dL POC Glucose (mg/dL) 146 H (70-110) mg/dL Assessment and Plan Assessment: #1 acute kidney injury secondary to hemodynamic ATN. Creeping creatinine #2 CK D stage III B secondary to diabetic kidney disease Baseline creatinine around 1.5-1.7 MG per DL. #3 endometrial cancer #4 hyperkalemia secondary to urinary retention on admission. Currently Aquino has been removed. #5 edema Plan: #1 renal function slowly creeping. Check bladder scan to rule out urinary retention. #2 check urine analysis, fena and fe urea. #3 continue with Lasix for now #4 labs in the morning
[2022-04-05 20:33] LABS: Appearance,Urine Clear (Clear); Bacteria,Urine Rare /hpf; Bilirubin,Urine Negative (Negative); Blood,Urine Large (Negative); Budding Yeast,Urine Few /hpf; Color,Urine Light Yellow; Glucose,Urine (UA) Negative (Negative); Hyaline Casts,Urine 9 /lpf (0-2); Ketones,Urine Negative (Negative); Leukocyte Esterase,Urine Moderate (Negative); Mucus,Urine Rare /hpf; Nitrite,Urine Negative (Negative); Protein,Urine Negative (Negative); RBC,Urine >182 /hpf (0-5); Specific Gravity,Urine 1.009 (1.001-1.035); Squamous Epithelial Cell,Urine 2 /hpf (0-4); Urobilinogen,Urine <2.0 mg/dL (<2.0); WBC,Urine 19 /hpf (0-5)
[2022-04-05] MEDS: SENNOSIDES-DOCUSATE SODIUM 1 EACH TAB PO SCH (20:50)
[2022-04-05] MEDS: ATORVASTATIN 10 MG TAB PO SCH (20:51)
[2022-04-05] MEDS: PRIMIDONE 50 MG TAB PO SCH (20:52)
[2022-04-05 21:24] LABS: Glucose,Whole Blood 147 mg/dL (70-110)
[2022-04-06] MEDS: HEPARIN SODIUM 1,000 UN/ML (10ML VL) IV PRN ×2 (05:36→12:20)
[2022-04-06] MEDS: ALBUTEROL NEBULIZED 2.5 MG/3 ML INHALATION PRN ×3 (07:55→19:58)
[2022-04-06] MEDS: BUDESONIDE 0.5 MG/2 ML NEBU INHALATION SCH (07:55)
[2022-04-06 08:10] LABS: Glucose,Whole Blood 205 mg/dL (70-110)
[2022-04-06] MEDS: INSULIN ASPART (NovoLOG) 100 UNIT/ML VIAL SQ SCH ×3 (08:28→18:00)
[2022-04-06] MEDS: FLUoxetine HCL 20 MG CAP PO SCH ×2 (08:28→21:01)
[2022-04-06] MEDS: METOPROLOL SUCCINATE (ER) 25 MG TAB.ER.24H PO SCH (08:28)
[2022-04-06] MEDS: FUROSEMIDE 20 MG TAB PO SCH ×2 (08:28→18:00)
[2022-04-06] MEDS: INSULIN DETEMIR (LEVEMIR) 100 UNIT/ML SYR SQ SCH ×2 (08:28→18:00)
[2022-04-06] MEDS: ASPIRIN 81 MG PO SCH ×2 (08:28→21:00)
[2022-04-06] MEDS: PANTOPRAZOLE 40 MG TABLET PO SCH ×2 (08:28→21:02)
[2022-04-06] MEDS: allopurinoL 100 MG TAB PO SCH ×2 (08:29→21:01)
[2022-04-06] MEDS: FERROUS SULFATE 325 MG TAB PO SCH (08:29)
[2022-04-06] MEDS: MONTELUKAST 10 MG TAB PO SCH (08:29)
[2022-04-06] MEDS: GABAPENTIN 300 MG CAP PO SCH ×2 (08:29→21:00)
[2022-04-06] MEDS: FENOFIBRATE 160 MG TAB PO SCH ×2 (08:29→21:02)
[2022-04-06] MEDS: SODIUM ZIRCONIUM CYCLOSILICATE 10 GM PACKET PO SCH (08:30)
[2022-04-06] MEDS: HYDROcodone/APAP 5-325MG 1 EACH TAB PO PRN ×2 (08:40→18:03)
[2022-04-06 09:41] LABS: INR 1.32 (0.90-1.11); Prothrombin Time 14.8 sec (9.9-11.9)
[2022-04-06 11:11] LABS: Glucose,Whole Blood 199 mg/dL (70-110)
[2022-04-06 11:20] LABS: HCT 22.7 % (37.2-46.3); MCH 26.8 pg (27.0-32.0); MCHC 28.2 g/dL (32.0-37.0); Mean Platelet Volume 11.4 fL (9.5-12.2); NRBC Per 100 WBC 0 /100 WBCS (0.0-0.0); Platelet Count 269 X 10*3/uL (140-440); RBC 2.39 X 10*6/uL (4.10-5.20); RDW 16.4 % (11.5-14.5); WBC 6.71 X 10*3/uL (4.50-10.00)
[2022-04-06 11:31] LABS: African American GFR (CKD) 26.8 (60.0-200.0); Anion Gap 12.9 mmol/L (10.00-18.00); BUN/Creat Ratio 15.04 Ratio (12.00-20.00); Blood Urea Nitrogen 34.6 mg/dL (9.0-27.0); Calcium 8.3 mg/dL (8.7-10.3); Carbon Dioxide 22.1 mmol/L (20.0-27.5); Non-African American GFR(CKD) 23.2 (60.0-200.0); Potassium 4.9 mmol/L (3.5-5.5)
[2022-04-06 11:39] LABS: Basophils # (A) 0.04 X 10*3/uL (0.00-0.10); Basophils % (A) 0.6 %; Eosinophils # (A) 0.38 X 10*3/uL (0.04-0.35); Eosinophils % (A) 5.7 %; Immature Grans, Automated 0.4 %; Lymphocytes # (A) 1.42 X 10*3/uL (0.90-5.00); Lymphocytes % (A) 21.2 %; Monocytes # (A) 0.49 X 10*3/uL (0.20-1.00); Monocytes % (A) 7.3 %; Neutrophils # (A) 4.35 X 10*3/uL (1.80-7.70); Neutrophils % (A) 64.8 %
--- NOTE | 2022-04-06 12:13 | P.PN ---
Subjective Progress Note Date: 04/06/22 I'm evaluating this patient today on 04/03/2022. She is up on a general medical floor in no acute distress. She is currently maintained on 4 L nasal cannula. She arrived today the primary complaints of right upper extremity swelling and some mild shortness of breath on 04/02/2022. Patient was a recent discharge from [facility] following a left hip fracture. She had a brief stay in the intensive care unit for postoperative hypotension. The patient was discharged to [facility] [place] on 03/28/2022, where she started to notice right upper extremity edema. Apparently, an outpatient Doppler was performed of bilateral upper extremities, but we do not have these reports. Patient's pertinent history includes uterine cancer, severe chronic bronchial asthma, chronic kidney disease stage III, diabetes, DVT, hypertension, rheumatoid arthritis, gout. Patient clearly has multiple risk factors for thrombosis. Patient is currently maintained on Ventolin inhaler as needed, Pulmicort, Singulair. High-intensity heparin is infusing Per protocol. Vital patient receiving IV push Lasix daily. Most recent CBC from 04/02/2022 reveals WBC count 8, hemoglobin 9, hematocrit 29, platelet count 312,000. INR 1.1, PTT 88. BMP appears relatively stable sodium 141, potassium 5.7, chloride 112, serum CO2 23, BUN 43, this creatinine 1.73, glucose 156. BMP 4960. Troponin negative. Nephrology is following. I'm evaluating this patient today on 04/04/2022. She remains on a general medical floor in no acute distress. She is laying down in bed on 4 L nasal cannula. Denies worsening shortness of breath. Denies cough, fever, chest pain, hemoptysis. There is modest improvement in her right upper extremity edema. The venous Doppler of the bilateral upper extremities from 04/03/2022 revealed no evidence of deep venous thrombosis, but showed superficial venous thrombus of the left cephalic and basilic veins on the right arm. Her heparin was discontinued due to some hematuria. Her hemoglobin count did drop approximately 1.5 g deciliter. The hematuria has since stopped. She has not been started on any oral anticoagulation. She does have history uterine cancer and has not started treatment yet. She continues to be maintain on Ventolin inhaler as needed, Pulmicort, Singulair. Repeat chest x-ray from today 04/04/2022 reveals cardiomegaly and pulmonary venous congestion and scattered interstitial and alveolar edema and increase in the right-sided pleural effusion. She has been started on Lasix 60 mg by mouth twice a day by nephrology. She continues Lokelma. Her BMP is stable sodium 142, potassium 5.3, chloride 108, serum CO2 25, BUN 33, creatinine 1.9, glucose 176. Her fluid balance is -1 L. I am reevaluating this patient today on 04/05/2022. She still on the general medical floor no acute distress. Denies shortness of breath,lower cough, chest pain, hemoptysis, fever. Right upper extremity remains swollen. There are contradictory reports from the outpatient venous Doppler in the proximal right upper extremity which showed acute nonocclusive deep venous thrombus in the right internal jugular, subclavian veins. The report also indicated an acute occlusive deep vein thrombus in the right axillary vein, and superficial venous thrombus in the basilic vein. Follow-up Doppler of the upper extremities was read as above. She remains off heparin due to hematuria, which has resolved after discontinuation. Her CBC from today shows an improved hemoglobin of 7.9, hematocrit 26, CBC 6.2, platelets 290,000. Her BMP results from today show sodi um of 141, potassium 5.1, chloride 110, serum CO2 26, BUN 34, creatinine 2.19, glucose 162. We have held off on contrast CT due to poor renal function. Hematology and oncology are following the patient. A lower extremity venous Doppler was performed which was technically poor quality study due to lower leg edema. They were able to rule out DVT in the bilateral popliteal vessel. we will continue DuoNeb inhalations, budesonide inhalation, and Singulair. The patient is seen today 04/06/2022 in follow-up on the regular medical floor. She currently resting comfortably in bed. Awake and alert in no acute distress. Denies any worsening shortness of breath, cough or congestion. No hemoptysis. Maintaining good O2 saturations in the mid to upper 90s on 4 L/m per nasal cannula. Afebrile. Hemodynamically stable. She is anemic today with a hemoglobin of 6.4. White count 6.7. INR 1.32. Sodium 142. Potassium 4.9. BUN 35. Creatinine 2.3. Glucose 2:15. Urinalysis with large amount of blood. Elevated WBCs. Cultures pending. He had been maintained on a heparin drip. Continued on bronchodilators, Singulair. Objective - Vital Signs Vital signs: Vital Signs Temp 97.9 F 04/06/22 01:35 Pulse 90 04/06/22 11:41 Resp 20 04/06/22 08:03 BP 121/75 04/06/22 08:03 Pulse Ox 96 04/06/22 07:55 FiO2 Intake & Output 04/05/22 04/06/22 04/06/22 18:59 06:59 18:59 Intake Total 130.529 Output Total 800 Balance -669.471 Intake: Intake, IV Titration 130.529 Amount Heparin Sod,Pork in 0.45% 130.529 NaCl 25,000 unit In 0.45 % NaCl 1 250ml.bag @ 6 UNITS/KG/HR 10.015 mls/hr IV .Q24H [facility] Rx#: [id number] Output: Urine 800 Other: Voiding Method External Catheter Bedside Commode Bedside Commode # Voids 1 1 # Bowel Movements 1 1 - Exam GENERAL EXAM: Alert, morbidly obese female, fairly comfortable in no apparent distress on 4 L nasal cannula. HEAD: Normocephalic. EYES: Normal reaction of pupils, equal size. NOSE: Clear with pink turbinates. THROAT: No erythema or exudates. NECK: No masses, no JVD. CHEST: No chest wall deformity. LUNGS: Equal air entry with no crackles, wheezes, or rhonchi. Dullness heard over the right posterior lower lobe CVS: S1 and S2 normal with no audible murmur, regular rhythm. ABDOMEN: No hepatosplenomegaly, normal bowel sounds, no guarding or rigidity. SPINE: No scoliosis or deformity SKIN: No rashes CENTRAL NERVOUS SYSTEM: No focal deficits, tone is normal in all 4 extremities. EXTREMITIES: Left hip incision clean dry well approximated. There is moderate nonpitting edema of the right upper extremity; this is not apparent in the left upper extremity.Peripheral pulses are intact. - Labs CBC & Chem 7: 04/06/22 05:20 04/06/22 05:20 Labs: Abnormal Lab Results - Last 24 Hours (Table) 04/05/22 04/05/22 04/05/22 Range/Units 15:14 15:14 17:18 RBC 2.59 L (3.80-5.40) m/uL Hgb 7.3 L (11.4-16.0) gm/dL Hct 24.3 L (34.0-46.0) % MCH (27.0-32.0) pg MCHC 29.9 L (31.0-37.0) g/dL RDW 15.9 H (11.5-15.5) % Eosinophils # (0.04-0.35) X 10*3/uL PT (9.9-11.9) sec INR 1.2 H (<1.2) APTT (22.0-30.0) sec BUN (9.0-27.0) mg/dL Creatinine (0.6-1.5) mg/dL Est GFR (CKD-EPI)AfAm (60.0-200.0) Est GFR (CKD-EPI)NonAf (60.0-200.0) Glucose (70-110) mg/dL POC Glucose (mg/dL) 146 H (70-110) mg/dL Calcium (8.7-10.3) mg/dL Urine Blood (Negative) Ur Leukocyte Esterase (Negative) Urine RBC (0-5) /hpf Urine WBC (0-5) /hpf Urine Bacteria (None) /hpf Hyaline Casts (0-2) /lpf Urine Mucus (None) /hpf Urine Yeast (Budding) (None) /hpf 04/05/22 04/05/22 04/06/22 Range/Units 19:52 21:22 00:50 RBC (3.80-5.40) m/uL Hgb (11.4-16.0) gm/dL Hct (34.0-46.0) % MCH (27.0-32.0) pg MCHC (31.0-37.0) g/dL RDW (11.5-15.5) % Eosinophils # (0.04-0.35) X 10*3/uL PT (9.9-11.9) sec INR (<1.2) APTT 18.5 L (22.0-30.0) sec BUN (9.0-27.0) mg/dL Creatinine (0.6-1.5) mg/dL Est GFR (CKD-EPI)AfAm (60.0-200.0) Est GFR (CKD-EPI)NonAf (60.0-200.0) Glucose (70-110) mg/dL POC Glucose (mg/dL) 147 H (70-110) mg/dL Calcium (8.7-10.3) mg/dL Urine Blood Large H (Negative) Ur Leukocyte Esterase Moderate H (Negative) Urine RBC >182 H (0-5) /hpf Urine WBC 19 H (0-5) /hpf Urine Bacteria Rare H (None) /hpf Hyaline Casts 9 H (0-2) /lpf Urine Mucus Rare H (None) /hpf Urine Yeast (Budding) Few H (None) /hpf 04/06/22 04/06/22 04/06/22 Range/Units 05:20 05:20 05:20 RBC 2.39 L (3.80-5.40) m/uL Hgb 6.4 L* (11.4-16.0) gm/dL Hct 22.7 L (34.0-46.0) % MCH 26.8 L (27.0-32.0) pg MCHC 28.2 L (31.0-37.0) g/dL RDW 16.4 H (11.5-15.5) % Eosinophils # 0.38 H (0.04-0.35) X 10*3/uL PT 14.8 H (9.9-11.9) sec INR 1.32 H (<1.2) APTT (22.0-30.0) sec BUN 34.6 H (9.0-27.0) mg/dL Creatinine 2.3 H (0.6-1.5) mg/dL Est GFR (CKD-EPI)AfAm 26.8 L (60.0-200.0) Est GFR (CKD-EPI)NonAf 23.2 L (60.0-200.0) Glucose 215 H (70-110) mg/dL POC Glucose (mg/dL) (70-110) mg/dL Calcium 8.3 L (8.7-10.3) mg/dL Urine Blood (Negative) Ur Leukocyte Esterase (Negative) Urine RBC (0-5) /hpf Urine WBC (0-5) /hpf Urine Bacteria (None) /hpf Hyaline Casts (0-2) /lpf Urine Mucus (None) /hpf Urine Yeast (Budding) (None) /hpf 04/06/22 04/06/22 04/06/22 Range/Units 08:02 10:22 11:10 RBC (3.80-5.40) m/uL Hgb (11.4-16.0) gm/dL Hct (34.0-46.0) % MCH (27.0-32.0) pg MCHC (31.0-37.0) g/dL RDW (11.5-15.5) % Eosinophils # (0.04-0.35) X 10*3/uL PT (9.9-11.9) sec INR (<1.2) APTT 37.3 H (22.0-30.0) sec BUN (9.0-27.0) mg/dL Creatinine (0.6-1.5) mg/dL Est GFR (CKD-EPI)AfAm (60.0-200.0) Est GFR (CKD-EPI)NonAf (60.0-200.0) Glucose (70-110) mg/dL POC Glucose (mg/dL) 205 H 199 H (70-110) mg/dL Calcium (8.7-10.3) mg/dL Urine Blood (Negative) Ur Leukocyte Esterase (Negative) Urine RBC (0-5) /hpf Urine WBC (0-5) /hpf Urine Bacteria (None) /hpf Hyaline Casts (0-2) /lpf Urine Mucus (None) /hpf Urine Yeast (Budding) (None) /hpf Assessment and Plan Assessment: Right superficial venous thrombosis of the right cephalic and basilic veins. Heparin infusion was discontinued due to hematuria then resumed once cleared. Hematuria. Heparin infusion was discontinued, and bleeding stopped on its own. Heparin then resumed per oncology Anemia. Hemoglobin is now down to 6.4. Awaiting transfusion. Heparin drip again on hold. Right pleural effusion. Maintained on Lasix twice a day. Severe chronic bronchial asthma is stable. Currently maintained on Pulmicort nebulization, Singulair. Uterine cancer, awaiting treatment. Oncology is following Left hip fracture status post repair chronic kidney disease stage III is stable. Nephrology is following. Hyperkalemia being treated with Shahriaril, nephrology is following. Heart failure with preserved ejection fraction is stable . recent echocardiogram on 02/15/2022 estimated ejection fraction 55-60% with moderate left ventricular hypertrophy. Diabetes mellitus type 2 insulin-dependent Primary hypertension Rheumatoid arthritis Plan: The patient was seen and evaluated Currently stable from the pulmonary standpoint Continue Pulmicort and Singulair Titrate the oxygen as needed We will sign off and see as needed I have personally seen and examined the patient, performed the documentation and the assessment and plan as written. Number of minutes spent on the visit: 10.
[2022-04-06] MEDS: SODIUM FERRIC GLUCONAT-SUCROSE 125 MG in SODIUM CHLORIDE 0.9% 100 ML IVPB SCH (13:59)
--- NOTE | 2022-04-06 16:14 | P.PN ---
Subjective Progress Note Date: 04/06/22 Follow-up for acute kidney injury. Aquino catheter has been removed yesterday, admits making good amount of urine. Urine output of 850 ML's in the last 24 hours documented. Objective - Vital Signs Vital signs: Vital Signs Temp 97.3 F L 04/06/22 16:05 Pulse 97 04/06/22 16:05 Resp 18 04/06/22 16:05 BP 109/61 04/06/22 16:05 Pulse Ox 96 04/06/22 16:05 FiO2 Intake & Output 04/05/22 04/06/22 04/06/22 18:59 06:59 18:59 Intake Total 130.529 101.405 Output Total 800 Balance -669.471 101.405 Intake: Intake, IV Titration 130.529 101.405 Amount Heparin Sod,Pork in 0.45% 130.529 101.405 NaCl 25,000 unit In 0.45 % NaCl 1 250ml.bag @ 6 UNITS/KG/HR 10.015 mls/hr IV .Q24H [facility] Rx#: [id number] Blood Product 0 Rc As-1 Unit 0 [id number] Output: Urine 800 Other: Voiding Method External Catheter Bedside Commode Bedside Commode # Voids 1 1 # Bowel Movements 1 1 - Exam No acute distress S1-S2 heard Lungs clear Edema - Labs CBC & Chem 7: 04/06/22 05:20 04/06/22 05:20 Labs: Abnormal Lab Results - Last 24 Hours (Table) 04/05/22 04/05/22 04/05/22 Range/Units 17:18 19:52 21:22 RBC (4.10-5.20) X 10*6/uL Hgb (12.0-15.0) g/dL Hct (37.2-46.3) % MCH (27.0-32.0) pg MCHC (32.0-37.0) g/dL RDW (11.5-14.5) % Eosinophils # (0.04-0.35) X 10*3/uL PT (9.9-11.9) sec INR (0.90-1.11) APTT (22.0-30.0) sec BUN (9.0-27.0) mg/dL Creatinine (0.6-1.5) mg/dL Est GFR (CKD-EPI)AfAm (60.0-200.0) Est GFR (CKD-EPI)NonAf (60.0-200.0) Glucose (70-110) mg/dL POC Glucose (mg/dL) 146 H 147 H (70-110) mg/dL Calcium (8.7-10.3) mg/dL Urine Blood Large H (Negative) Ur Leukocyte Esterase Moderate H (Negative) Urine RBC >182 H (0-5) /hpf Urine WBC 19 H (0-5) /hpf Urine Bacteria Rare H (None) /hpf Hyaline Casts 9 H (0-2) /lpf Urine Mucus Rare H (None) /hpf Urine Yeast (Budding) Few H (None) /hpf Crossmatch 04/06/22 04/06/22 04/06/22 Range/Units 00:50 05:20 05:20 RBC 2.39 L (4.10-5.20) X 10*6/uL Hgb 6.4 L* (12.0-15.0) g/dL Hct 22.7 L (37.2-46.3) % MCH 26.8 L (27.0-32.0) pg MCHC 28.2 L (32.0-37.0) g/dL RDW 16.4 H (11.5-14.5) % Eosinophils # 0.38 H (0.04-0.35) X 10*3/uL PT 14.8 H (9.9-11.9) sec INR 1.32 H (0.90-1.11) APTT 18.5 L (22.0-30.0) sec BUN (9.0-27.0) mg/dL Creatinine (0.6-1.5) mg/dL Est GFR (CKD-EPI)AfAm (60.0-200.0) Est GFR (CKD-EPI)NonAf (60.0-200.0) Glucose (70-110) mg/dL POC Glucose (mg/dL) (70-110) mg/dL Calcium (8.7-10.3) mg/dL Urine Blood (Negative) Ur Leukocyte Esterase (Negative) Urine RBC (0-5) /hpf Urine WBC (0-5) /hpf Urine Bacteria (None) /hpf Hyaline Casts (0-2) /lpf Urine Mucus (None) /hpf Urine Yeast (Budding) (None) /hpf Crossmatch 04/06/22 04/06/22 04/06/22 Range/Units 05:20 08:02 10:22 RBC (4.10-5.20) X 10*6/uL Hgb (12.0-15.0) g/dL Hct (37.2-46.3) % MCH (27.0-32.0) pg MCHC (32.0-37.0) g/dL RDW (11.5-14.5) % Eosinophils # (0.04-0.35) X 10*3/uL PT (9.9-11.9) sec INR (0.90-1.11) APTT 37.3 H (22.0-30.0) sec BUN 34.6 H (9.0-27.0) mg/dL Creatinine 2.3 H (0.6-1.5) mg/dL Est GFR (CKD-EPI)AfAm 26.8 L (60.0-200.0) Est GFR (CKD-EPI)NonAf 23.2 L (60.0-200.0) Glucose 215 H (70-110) mg/dL POC Glucose (mg/dL) 205 H (70-110) mg/dL Calcium 8.3 L (8.7-10.3) mg/dL Urine Blood (Negative) Ur Leukocyte Esterase (Negative) Urine RBC (0-5) /hpf Urine WBC (0-5) /hpf Urine Bacteria (None) /hpf Hyaline Casts (0-2) /lpf Urine Mucus (None) /hpf Urine Yeast (Budding) (None) /hpf Crossmatch 04/06/22 04/06/22 Range/Units 11:10 12:05 RBC (4.10-5.20) X 10*6/uL Hgb (12.0-15.0) g/dL Hct (37.2-46.3) % MCH (27.0-32.0) pg MCHC (32.0-37.0) g/dL RDW (11.5-14.5) % Eosinophils # (0.04-0.35) X 10*3/uL PT (9.9-11.9) sec INR (0.90-1.11) APTT (22.0-30.0) sec BUN (9.0-27.0) mg/dL Creatinine (0.6-1.5) mg/dL Est GFR (CKD-EPI)AfAm (60.0-200.0) Est GFR (CKD-EPI)NonAf (60.0-200.0) Glucose (70-110) mg/dL POC Glucose (mg/dL) 199 H (70-110) mg/dL Calcium (8.7-10.3) mg/dL Urine Blood (Negative) Ur Leukocyte Esterase (Negative) Urine RBC (0-5) /hpf Urine WBC (0-5) /hpf Urine Bacteria (None) /hpf Hyaline Casts (0-2) /lpf Urine Mucus (None) /hpf Urine Yeast (Budding) (None) /hpf Crossmatch See Detail Assessment and Plan Assessment: #1 acute kidney injury secondary to hemodynamic ATN. Creeping creatinine #2 CK D stage III B secondary to diabetic kidney disease Baseline creatinine a round 1.5-1.7 MG per DL. #3 endometrial cancer #4 hyperkalemia secondary to urinary retention on admission. Currently Aquino has been removed. #5 edema Plan: #1 renal function slowly creeping. Check bladder scan to rule out urinary retention. #2 urine analysis hematuria with pyuria. #3 continue with Lasix for now #4 labs in the morning
[2022-04-06] MEDS: HEPARIN SOD,PORK IN 0.45% NACL 25,000 UNIT in 0.45% NACL 1 250ML.BAG IV SCH (16:54)
[2022-04-06 17:20] LABS: Glucose,Whole Blood 202 mg/dL (70-110)
--- NOTE | 2022-04-06 19:22 | P.PN ---
Subjective Progress Note Date: 04/06/22 The patient's bleeding appears to have improved clinically. His discussed in detail with nursing and ancillary staff. They stated that the amount of bleeding compared to yesterday has been definitely less, and appears to have essentially resolved from the afternoon onwards. Objective - Vital Signs Vital signs: Vital Signs Temp 97.6 F 04/06/22 16:25 Pulse 111 H 04/06/22 16:25 Resp 18 04/06/22 16:25 BP 122/75 04/06/22 16:25 Pulse Ox 96 04/06/22 16:25 FiO2 Intake & Output 04/06/22 04/06/22 04/07/22 06:59 18:59 06:59 Intake Total 130.529 119.471 Output Total 800 Balance -669.471 119.471 Intake: Intake, IV Titration 130.529 119.471 Amount Heparin Sod,Pork in 0.45% 130.529 119.471 NaCl 25,000 unit In 0.45 % NaCl 1 250ml.bag @ 6 UNITS/KG/HR 10.015 mls/hr IV .Q24H [facility] Rx#: [id number] Blood Product 0 Rc As-1 Unit 0 [id number] Output: Urine 800 Other: Voiding Method Bedside Commode Bedside Commode # Voids 1 # Bowel Movements 1 - Constitutional General appearance: Present: no acute distress - EENT Eyes: Present: EOMI ENT: Present: hearing grossly normal, normal oropharynx - Respiratory Respiratory: bilateral: CTA - Cardiovascular Rhythm: regular Heart sounds: normal: S1, S2 - Gastrointestinal General gastrointestinal: Present: soft - Integumentary Integumentary Comment(s): Reddish and bluish discoloration of the right upper extremity Integumentary: Present: calor (Right upper extremity) - Neurologic Neurologic: Present: CNII-XII intact - Musculoskeletal Musculoskeletal: Present: generalized weakness - Psychiatric Psychiatric: Present: A&O x's 3 - Labs CBC & Chem 7: 04/06/22 05:20 04/06/22 05:20 Labs: Abnormal Lab Results - Last 24 Hours (Table) 04/05/22 04/05/22 04/06/22 Range/Units 19:52 21:22 00:50 RBC (4.10-5.20) X 10*6/uL Hgb (12.0-15.0) g/dL Hct (37.2-46.3) % MCH (27.0-32.0) pg MCHC (32.0-37.0) g/dL RDW (11.5-14.5) % Eosinophils # (0.04-0.35) X 10*3/uL PT (9.9-11.9) sec INR (0.90-1.11) APTT 18.5 L (22.0-30.0) sec BUN (9.0-27.0) mg/dL Creatinine (0.6-1.5) mg/dL Est GFR (CKD-EPI)AfAm (60.0-200.0) Est GFR (CKD-EPI)NonAf (60.0-200.0) Glucose (70-110) mg/dL POC Glucose (mg/dL) 147 H (70-110) mg/dL Calcium (8.7-10.3) mg/dL Urine Blood Large H (Negative) Ur Leukocyte Esterase Moderate H (Negative) Urine RBC >182 H (0-5) /hpf Urine WBC 19 H (0-5) /hpf Urine Bacteria Rare H (None) /hpf Hyaline Casts 9 H (0-2) /lpf Urine Mucus Rare H (None) /hpf Urine Yeast (Budding) Few H (None) /hpf Crossmatch 04/06/22 04/06/22 04/06/22 Range/Units 05:20 05:20 05:20 RBC 2.39 L (4.10-5.20) X 10*6/uL Hgb 6.4 L* (12.0-15.0) g/dL Hct 22.7 L (37.2-46.3) % MCH 26.8 L (27.0-32.0) pg MCHC 28.2 L (32.0-37.0) g/dL RDW 16.4 H (11.5-14.5) % Eosinophils # 0.38 H (0.04-0.35) X 10*3/uL PT 14.8 H (9.9-11.9) sec INR 1.32 H (0.90-1.11) APTT (22.0-30.0) sec BUN 34.6 H (9.0-27.0) mg/dL Creatinine 2.3 H (0.6-1.5) mg/dL Est GFR (CKD-EPI)AfAm 26.8 L (60.0-200.0) Est GFR (CKD-EPI)NonAf 23.2 L (60.0-200.0) Glucose 215 H (70-110) mg/dL POC Glucose (mg/dL) (70-110) mg/dL Calcium 8.3 L (8.7-10.3) mg/dL Urine Blood (Negative) Ur Leukocyte Esterase (Negative) Urine RBC (0-5) /hpf Urine WBC (0-5) /hpf Urine Bacteria (None) /hpf Hyaline Casts (0-2) /lpf Urine Mucus (None) /hpf Urine Yeast (Budding) (None) /hpf Crossmatch 04/06/22 04/06/22 04/06/22 Range/Units 08:02 10:22 11:10 RBC (4.10-5.20) X 10*6/uL Hgb (12.0-15.0) g/dL Hct (37.2-46.3) % MCH (27.0-32.0) pg MCHC (32.0-37.0) g/dL RDW (11.5-14.5) % Eosinophils # (0.04-0.35) X 10*3/uL PT (9.9-11.9) sec INR (0.90-1.11) APTT 37.3 H (22.0-30.0) sec BUN (9.0-27.0) mg/dL Creatinine (0.6-1.5) mg/dL Est GFR (CKD-EPI)AfAm (60.0-200.0) Est GFR (CKD-EPI)NonAf (60.0-200.0) Glucose (70-110) mg/dL POC Glucose (mg/dL) 205 H 199 H (70-110) mg/dL Calcium (8.7-10.3) mg/dL Urine Blood (Negative) Ur Leukocyte Esterase (Negative) Urine RBC (0-5) /hpf Urine WBC (0-5) /hpf Urine Bacteria (None) /hpf Hyaline Casts (0-2) /lpf Urine Mucus (None) /hpf Urine Yeast (Budding) (None) /hpf Crossmatch 04/06/22 04/06/22 Range/Units 12:05 17:19 RBC (4.10-5.20) X 10*6/uL Hgb (12.0-15.0) g/dL Hct (37.2-46.3) % MCH (27.0-32.0) pg MCHC (32.0-37.0) g/dL RDW (11.5-14.5) % Eosinophils # (0.04-0.35) X 10*3/uL PT (9.9-11.9) sec INR (0.90-1.11) APTT (22.0-30.0) sec BUN (9.0-27.0) mg/dL Creatinine (0.6-1.5) mg/dL Est GFR (CKD-EPI)AfAm (60.0-200.0) Est GFR (CKD-EPI)NonAf (60.0-200.0) Glucose (70-110) mg/dL POC Glucose (mg/dL) 202 H (70-110) mg/dL Calcium (8.7-10.3) mg/dL Urine Blood (Negative) Ur Leukocyte Esterase (Negative) Urine RBC (0-5) /hpf Urine WBC (0-5) /hpf Urine Bacteria (None) /hpf Hyaline Casts (0-2) /lpf Urine Mucus (None) /hpf Urine Yeast (Budding) (None) /hpf Crossmatch See Detail Assessment and Plan (1) DVT of axillary vein, acute right Narrative/Plan: The patient was started on anticoagulation due to progression of thrombosis, from superficial into the deep venous system. Initially there was some confusion as to whether the patient did have a DVT or not. The study done here was negative for DVT but was very limited due to patient's noncooperation. The study done outpatient was a better quality, and did show a DVT in the right upper extremity system. This was evaluated by vascular surgery who agreed with the results of the outpatient Dopplers and indicated that anticoagulation would be appropriate. - Risk and benefit aspect were discussed in detail with the patient. She has already shown progression clinically, and is at high risk for further progression due to the underlying malignancy, as well as recent major surgery as well as her other medical issues including chronic lack of mobility and morbid obesity. Based on careful assessment of risks versus benefits it was felt that it would be therefore reasonable to start her on anticoagulation, along with close monitoring and supportive treatment which can be done as the patient is currently in the hospital, in association with medical measures to reduce bleeding. In addition the patient is to start radiation early next week. Current Visit: Yes Status: Acute Priority: High Code(s): I82.A11 - ACUTE EMBOLISM AND THROMBOSIS OF RIGHT AXILLARY VEIN SNOMED Code(s): 090062679706269 (2) Endometrial adenocarcinoma Narrative/Plan: The patient's treatment has been markedly delayed, because she has not followed up as recommended since diagnosis. She has been seen by [facility] [employer] oncology, and is not felt to be a good surgical candidate. She was therefore seen by radiation and staging studies were recommended to see if she would be a candidate for definitive local radiation. Were the patient has not had those either. - We discussed that we would not be able to perform the MRI that was recommended by radiation oncology while inpatient, as the patient categorically refuse any tests where she Has to lay flat. In addition she says that she cannot tolerate an MRI without being sedated. She was advised that we do not have the facility for the same year. Therefore her staging studies would have to be performed as an outpatient probably at other centers where she can receive sedation. - We discussed that radiation will be initiated for now with a palliative intent. Hopefully if she is able to complete her staging and is found not to have disease outside the uterus, she can then continue radiation for a definitive course. - The above was discussed with the patient previously, and was retreated to her again in detail. Current Visit: Yes Status: Acute Priority: High Code(s): C54.1 - MALIGNANT NEOPLASM OF ENDOMETRIUM SNOMED Code(s): 111039302 (3) Anemia, blood loss Narrative/Plan: Patient's hematoma dropped into the 6 range. However clinically her bleeding has improved. The drop in hemoglobin currently is probably due to breakdown of previously transfuse blood. The patient has been prescribed IV iron. She will receive a unit of blood today. Continue to monitor and transfuse to keep hemoglobin greater than 7. Current Visit: Yes Status: Acute Code(s): D50.0 - IRON DEFICIENCY ANEMIA SECONDARY TO BLOOD LOSS (CHRONIC) SNOMED Code(s): 557445988 Plan: Case discussed with nursing. Monitored carefully for recurrent bleeding. The patient does have recurrence of bleeding, we will try to control it medically while still continue anticoagulation, with Sandostatin and possibly repeat dose of desmopressin
[2022-04-06] MEDS: SYMBICORT 160-4.5 MCG INHALER INHALATION SCH (19:58)
[2022-04-06 20:17] LABS: Glucose,Whole Blood 235 mg/dL (70-110)
[2022-04-06] MEDS: PRIMIDONE 50 MG TAB PO SCH (21:00)
[2022-04-06] MEDS: ATORVASTATIN 10 MG TAB PO SCH (21:02)
[2022-04-06] MEDS: SENNOSIDES-DOCUSATE SODIUM 1 EACH TAB PO SCH (21:02)
[2022-04-07] MEDS: HYDROcodone/APAP 5-325MG 1 EACH TAB PO PRN ×4 (00:21→22:35)
[2022-04-07] MEDS: ALBUTEROL NEBULIZED 2.5 MG/3 ML INHALATION PRN ×3 (04:02→20:53)
[2022-04-07] MEDS: HEPARIN SODIUM 1,000 UN/ML (10ML VL) IV PRN (05:43)
[2022-04-07] MEDS: PANTOPRAZOLE 40 MG TABLET PO SCH ×2 (06:09→20:27)
[2022-04-07 07:06] LABS: Glucose,Whole Blood 246 mg/dL (70-110)
[2022-04-07] MEDS: SODIUM FERRIC GLUCONAT-SUCROSE 125 MG in SODIUM CHLORIDE 0.9% 100 ML IVPB SCH (08:43)
[2022-04-07] MEDS: FUROSEMIDE 20 MG TAB PO SCH ×2 (08:44→15:52)
[2022-04-07] MEDS: GABAPENTIN 300 MG CAP PO SCH ×2 (08:44→20:27)
[2022-04-07] MEDS: INSULIN DETEMIR (LEVEMIR) 100 UNIT/ML SYR SQ SCH ×2 (08:45→18:06)
[2022-04-07] MEDS: allopurinoL 100 MG TAB PO SCH ×2 (08:45→20:27)
[2022-04-07] MEDS: MONTELUKAST 10 MG TAB PO SCH (08:45)
[2022-04-07] MEDS: FENOFIBRATE 160 MG TAB PO SCH ×2 (08:45→20:27)
[2022-04-07] MEDS: INSULIN ASPART (NovoLOG) 100 UNIT/ML VIAL SQ SCH ×3 (08:45→18:03)
[2022-04-07] MEDS: METOPROLOL SUCCINATE (ER) 25 MG TAB.ER.24H PO SCH (08:45)
[2022-04-07] MEDS: ASPIRIN 81 MG PO SCH ×2 (08:45→20:27)
[2022-04-07] MEDS: FERROUS SULFATE 325 MG TAB PO SCH (08:45)
[2022-04-07] MEDS: SODIUM ZIRCONIUM CYCLOSILICATE 10 GM PACKET PO SCH (08:47)
[2022-04-07] MEDS: SYMBICORT 160-4.5 MCG INHALER INHALATION SCH ×2 (08:47→20:54)
[2022-04-07] MEDS: FLUoxetine HCL 20 MG CAP PO SCH ×2 (08:49→20:27)
[2022-04-07 09:33] LABS: Basophils # (A) 0.05 X 10*3/uL (0.00-0.10); Basophils % (A) 0.7 %; Eosinophils # (A) 0.42 X 10*3/uL (0.04-0.35); HCT 26.5 % (37.2-46.3); HGB 7.6 g/dL (12.0-15.0); Immature Grans, Automated 0.4 %; Lymphocytes # (A) 1.73 X 10*3/uL (0.90-5.00); Lymphocytes % (A) 24.8 %; MCH 27.3 pg (27.0-32.0); MCHC 28.7 g/dL (32.0-37.0); MCV 95.3 fL (80.0-97.0); Mean Platelet Volume 11.5 fL (9.5-12.2); Monocytes # (A) 0.58 X 10*3/uL (0.20-1.00); Monocytes % (A) 8.3 %; NRBC Per 100 WBC 0 /100 WBCS (0.0-0.0); Neutrophils # (A) 4.16 X 10*3/uL (1.80-7.70); Neutrophils % (A) 59.8 %; Platelet Count 281 X 10*3/uL (140-440); RBC 2.78 X 10*6/uL (4.10-5.20); RDW 16.4 % (11.5-14.5); WBC 6.97 X 10*3/uL (4.50-10.00)
[2022-04-07 09:38] LABS: African American GFR (CKD) 24.3 (60.0-200.0); Anion Gap 14.2 mmol/L (10.00-18.00); Calcium 8.3 mg/dL (8.7-10.3); Carbon Dioxide 21.8 mmol/L (20.0-27.5); Non-African American GFR(CKD) 20.9 (60.0-200.0); Potassium 4.6 mmol/L (3.5-5.5)
[2022-04-07] MEDS: HEPARIN SOD,PORK IN 0.45% NACL 25,000 UNIT in 0.45% NACL 1 250ML.BAG IV SCH (11:24)
[2022-04-07 11:26] LABS: Glucose,Whole Blood 243 mg/dL (70-110)
--- NOTE | 2022-04-07 13:31 | P.PN ---
Subjective Progress Note Date: 04/07/22 Principal diagnosis: Patient is a 56-year-old female is or has a history of CK D stage III be secondary to diabetic kidney disease with baseline creatinine around 1.5 mg/dL. Patient is admitted to the hospital for pain and swelling in her right arm. This started soon after discharge from her last hospitalization on 03/28/2022. The last hospitalization was for left femur fracture, status post surgical repair on 03/18/2022. Patient also had UTI and developed acute kidney injury which had improved. Serum creatinine had decreased to 2.3 on 03/27/2022. Peak creatinine was at 2.9 mg/dL. Patient has underlying history of endometrial cancer and is scheduled to start treatment as outpatient. Serum creatinine at 1.7 this admission. She had a Aquino catheter inserted that has been taken out. She wants to go home but her creatinine is going up, and as of this morning cre atinine is up from 2.3 yesterday to 2.5 today. Rest of the electrolytes sodium 140, 4.6, 104, 21.8. Calcium is 8.3. blood pressure is from 90s to 120 and urine output is none documented. Objective - Vital Signs Vital signs: Vital Signs Temp 98.1 F 04/07/22 12:24 Pulse 83 04/07/22 12:24 Resp 18 04/07/22 12:24 BP 98/59 04/07/22 12:24 Pulse Ox 96 04/07/22 12:24 FiO2 Intake & Output 04/06/22 04/07/22 04/07/22 18:59 06:59 18:59 Intake Total 626.506 7011.432 76.568 Output Total 0 Balance 804.993 1809.432 76.568 Intake: Intake, IV Titration 119.471 173.432 76.568 Amount Heparin Sod,Pork in 0.45% 119.471 173.432 76.568 NaCl 25,000 unit In 0.45 % NaCl 1 250ml.bag @ 6 UNITS/KG/HR 10.015 mls/hr IV .Q24H [facility] Rx#: [id number] Oral 1180 Blood Product 0 310 Rc As-1 Unit 0 310 [id number] Output: Post Void Residual 0 Other: Voiding Method Bedside Commode Bedside Commode Bedside Commode # Voids 1 2 # Bowel Movements 1 1 awake alert oriented Lungs are clear to auscultation good air entry bilaterally Heart sounds unremarkable. Abdomen is soft and somewhat obese Extremity exam reveals trace edema Neurologically awake alert oriented - Labs CBC & Chem 7: 04/07/22 03:18 04/07/22 03:18 Labs: Abnormal Lab Results - Last 24 Hours (Table) 04/06/22 04/06/22 04/06/22 Range/Units 12:05 17:19 19:26 RBC (4.10-5.20) X 10*6/uL Hgb (12.0-15.0) g/dL Hct (37.2-46.3) % MCHC (32.0-37.0) g/dL RDW (11.5-14.5) % Eosinophils # (0.04-0.35) X 10*3/uL APTT 154.1 H* (22.0-30.0) sec BUN (9.0-27.0) mg/dL Creatinine (0.6-1.5) mg/dL Est GFR (CKD-EPI)AfAm (60.0-200.0) Est GFR (CKD-EPI)NonAf (60.0-200.0) Glucose (70-110) mg/dL POC Glucose (mg/dL) 202 H (70-110) mg/dL Calcium (8.7-10.3) mg/dL Crossmatch See Detail 04/06/22 04/07/22 04/07/22 Range/Units 20:15 03:18 03:18 RBC 2.78 L (4.10-5.20) X 10*6/uL Hgb 7.6 L (12.0-15.0) g/dL Hct 26.5 L (37.2-46.3) % MCHC 28.7 L (32.0-37.0) g/dL RDW 16.4 H (11.5-14.5) % Eosinophils # 0.42 H (0.04-0.35) X 10*3/uL APTT (22.0-30.0) sec BUN 40.0 H (9.0-27.0) mg/dL Creatinine 2.5 H (0.6-1.5) mg/dL Est GFR (CKD-EPI)AfAm 24.3 L (60.0-200.0) Est GFR (CKD-EPI)NonAf 20.9 L (60.0-200.0) Glucose 247 H (70-110) mg/dL POC Glucose (mg/dL) 235 H (70-110) mg/dL Calcium 8.3 L (8.7-10.3) mg/dL Crossmatch 04/07/22 04/07/22 04/07/22 Range/Units 07:05 10:38 11:25 RBC (4.10-5.20) X 10*6/uL Hgb (12.0-15.0) g/dL Hct (37.2-46.3) % MCHC (32.0-37.0) g/dL RDW (11.5-14.5) % Eosinophils # (0.04-0.35) X 10*3/uL APTT 54.7 H (22.0-30.0) sec BUN (9.0-27.0) mg/dL Creatinine (0.6-1.5) mg/dL Est GFR (CKD-EPI)AfAm (60.0-200.0) Est GFR (CKD-EPI)NonAf (60.0-200.0) Glucose (70-110) mg/dL POC Glucose (mg/dL) 246 H 243 H (70-110) mg/dL Calcium (8.7-10.3) mg/dL Crossmatch Assessment and Plan Assessment: Impression 1. Keep kidney injury with worsening rule out urinary retention and outlet obs truction. Blood pressure is somewhat slow 2. History of endometrial Carcinoma. Ultrasound not available to see if there is any hydronephrosis 3. Hyperkalemia secondary to possibly obstructive element. 4. Chronic kidney disease, baseline creatinine 1.9 dated 04/04/2022 and 1.73 on 04/02/2022. Ultrasound dated 03/18/2022 showed right kidney not visualized left is 13.3 cm, a computed tomography scan of abdomen and pelvis on 02/14/2022 showed normal-size kidneys strike not mentioned 5. CT on 02/14/2022 - calcified gallstones are noted. Recommendation 1. Hold Lasix 60 mg by mouth twice a day, and restart if necessary tomorrow. 2. Check bladder scan if it is difficult because of her body habitus we will straight catheter and make sure. 3. Discontinue the LOkelma Since the potassium is 4.6
--- NOTE | 2022-04-07 17:21 | P.PN ---
Subjective Progress Note Date: 04/07/22 The patient denies any new complaints. She has not noted any bleeding herself. Confirmed with nursing that there appears to be no recurrence of bleeding. Generalized weakness, and left sided hip pain as well as limitation of movement persists Objective - Vital Signs Vital signs: Vital Signs Temp 98.1 F 04/07/22 12:24 Pulse 83 04/07/22 12:24 Resp 18 04/07/22 12:24 BP 98/59 04/07/22 12:24 Pulse Ox 96 04/07/22 12:24 FiO2 Intake & Output 04/06/22 04/07/22 04/07/22 18:59 06:59 18:59 Intake Total 149.598 7550.432 666.568 Output Total 0 600 Balance 554.438 1303.432 66.568 Intake: Intake, IV Titration 119.471 173.432 76.568 Amount Heparin Sod,Pork in 0.45% 119.471 173.432 76.568 NaCl 25,000 unit In 0.45 % NaCl 1 250ml.bag @ 6 UNITS/KG/HR 10.015 mls/hr IV .Q24H [facility] Rx#: [id number] Oral 1180 590 Blood Product 0 310 Rc As-1 Unit 0 310 [id number] Output: Urine 600 Straight 600 Post Void Residual 0 Other: Voiding Method Bedside Commode Bedside Commode Bedside Commode # Voids 1 2 1 # Bowel Movements 1 1 1 - Constitutional General appearance: Present: no acute distress - EENT Eyes: Present: EOMI ENT: Present: hearing grossly normal, normal oropharynx - Respiratory Respiratory: bilateral: CTA - Cardiovascular Rhythm: regular Heart sounds: normal: S1, S2 - Gastrointestinal General gastrointestinal: Present: normal bowel sounds, soft - Integumentary Integumentary Comment(s): Patchy discoloration of the right upper extremity - Neurologic Neurologic: Present: CNII-XII intact - Musculoskeletal Musculoskeletal: Present: generalized weakness, left sided weakness - Psychiatric Psychiatric: Present: A&O x's 3, appropriate affect - Labs CBC & Chem 7: 04/07/22 03:18 04/07/22 03:18 Labs: Abnormal Lab Results - Last 24 Hours (Table) 04/06/22 04/06/22 04/06/22 Range/Units 12:05 17:19 19:26 RBC (4.10-5.20) X 10*6/uL Hgb (12.0-15.0) g/dL Hct (37.2-46.3) % MCHC (32.0-37.0) g/dL RDW (11.5-14.5) % Eosinophils # (0.04-0.35) X 10*3/uL APTT 154.1 H* (22.0-30.0) sec BUN (9.0-27.0) mg/dL Creatinine (0.6-1.5) mg/dL Est GFR (CKD-EPI)AfAm (60.0-200.0) Est GFR (CKD-EPI)NonAf (60.0-200.0) Glucose (70-110) mg/dL POC Glucose (mg/dL) 202 H (70-110) mg/dL Calcium (8.7-10.3) mg/dL Crossmatch See Detail 04/06/22 04/07/22 04/07/22 Range/Units 20:15 03:18 03:18 RBC 2.78 L (4.10-5.20) X 10*6/uL Hgb 7.6 L (12.0-15.0) g/dL Hct 26.5 L (37.2-46.3) % MCHC 28.7 L (32.0-37.0) g/dL RDW 16.4 H (11.5-14.5) % Eosinophils # 0.42 H (0.04-0.35) X 10*3/uL APTT (22.0-30.0) sec BUN 40.0 H (9.0-27.0) mg/dL Creatinine 2.5 H (0.6-1.5) mg/dL Est GFR (CKD-EPI)AfAm 24.3 L (60.0-200.0) Est GFR (CKD-EPI)NonAf 20.9 L (60.0-200.0) Glucose 247 H (70-110) mg/dL POC Glucose (mg/dL) 235 H (70-110) mg/dL Calcium 8.3 L (8.7-10.3) mg/dL Crossmatch 04/07/22 04/07/22 04/07/22 Range/Units 07:05 10:38 11:25 RBC (4.10-5.20) X 10*6/uL Hgb (12.0-15.0) g/dL Hct (37.2-46.3) % MCHC (32.0-37.0) g/dL RDW (11.5-14.5) % Eosinophils # (0.04-0.35) X 10*3/uL APTT 54.7 H (22.0-30.0) sec BUN (9.0-27.0) mg/dL Creatinine (0.6-1.5) mg/dL Est GFR (CKD-EPI)AfAm (60.0-200.0) Est GFR (CKD-EPI)NonAf (60.0-200.0) Glucose (70-110) mg/dL POC Glucose (mg/dL) 246 H 243 H (70-110) mg/dL Calcium (8.7-10.3) mg/dL Crossmatch Assessment and Plan (1) DVT of axillary vein, acute right Narrative/Plan: Patient is continuing on IV heparin. She appears to be tolerating it well, with no evidence of recurrent bleeding. Hemoglobin has been stable. Switch to by mouth DOAC at the time of discharge, by which time patient should have started radiation, assuming that she has not had recurrence of bleeding. Current Visit: Yes Status: Acute Priority: High Code(s): I82.A11 - ACUTE EMBOLISM AND THROMBOSIS OF RIGHT AXILLARY VEIN SNOMED Code(s): 742630387786791 (2) Endometrial adenocarcinoma Narrative/Plan: The patient is to start radiation with curative intent, likely on 04/09/22. We discussed observation oncology about planning staging studies as an outpatient at the facility where the patient can have those with sedation. Current Visit: Yes Status: Acute Priority: High Code(s): C54.1 - MALIGNANT NEOPLASM OF ENDOMETRIUM SNOMED Code(s): 981894976 (3) Anemia, blood loss Narrative/Plan: Hemoglobin is stable after transfusion yesterday. No active bleeding noted. The patient has also received IV iron. Continue to monitor Current Visit: Yes Status: Acute Code(s): D50.0 - IRON DEFICIENCY ANEMIA SECONDARY TO BLOOD LOSS (CHRONIC) SNOMED Code(s): 329904519
[2022-04-07 18:03] LABS: Glucose,Whole Blood 257 mg/dL (70-110)
[2022-04-07] MEDS: ATORVASTATIN 10 MG TAB PO SCH (20:27)
[2022-04-07] MEDS: PRIMIDONE 50 MG TAB PO SCH (20:27)
[2022-04-07] MEDS: SENNOSIDES-DOCUSATE SODIUM 1 EACH TAB PO SCH (20:27)
[2022-04-07 21:07] LABS: Glucose,Whole Blood 197 mg/dL (70-110)
[2022-04-08] MEDS: HEPARIN SOD,PORK IN 0.45% NACL 25,000 UNIT in 0.45% NACL 1 250ML.BAG IV SCH (02:18)
[2022-04-08] MEDS: ALBUTEROL NEBULIZED 2.5 MG/3 ML INHALATION PRN ×4 (02:38→19:48)
--- NOTE | 2022-04-08 03:46 | PN ---
PROGRESS NOTE DATE OF SERVICE: 04/07/2022 SUBJECTIVE: This 56-year-old woman who was admitted with multiple medical problems including DVT of the axillary vein and intermittent adenocarcinoma, is being closely monitored at this time. The patient has some bleeding. Dr. Martin is also considering possible radiation therapy. No chest pain. No palpitation. OBJECTIVE: VITAL SIGNS: Pulse is 80, blood pressure N, respirations 18. CHEST: Clear to auscultation. CARDIOVASCULAR: S1, S2. ABDOMEN: Soft. NERVOUS SYSTEM: Nonfocal. LABORATORY DATA: Hemoglobin 7.6. Rest of the labs are noted. ASSESSMENT: 1. Right arm swelling and possibly axillary vein thrombosis and deep venous thrombosis. 2. Bleeding secondary to endometrial carcinoma. 3. Anemia, acute blood loss anemia. 4. Chronic bronchial asthma. 5. Hyperkalemia. 6. Multiple medical issues. RECOMMENDATIONS: Recommend to continue current medications, continue symptomatic treatment. Repeat hemoglobin and transfuse with hemoglobin less than 7 and symptomatic, otherwise closely follow with Dr. Martin regarding anticoagulation. Consider possible radiation. Creatinine is also elevated at 2.5. We will avoid nephrotoxic medications. Further recommendations to follow. MMODL / IJN: [id number] / AFIA
[2022-04-08] MEDS: PANTOPRAZOLE 40 MG TABLET PO SCH ×2 (05:54→21:12)
[2022-04-08] MEDS: HEPARIN SODIUM 1,000 UN/ML (10ML VL) IV PRN (06:44)
[2022-04-08 07:33] LABS: Glucose,Whole Blood 231 mg/dL (70-110)
[2022-04-08] MEDS: INSULIN DETEMIR (LEVEMIR) 100 UNIT/ML SYR SQ SCH ×2 (07:53→17:22)
[2022-04-08] MEDS: FERROUS SULFATE 325 MG TAB PO SCH (07:53)
[2022-04-08] MEDS: GABAPENTIN 300 MG CAP PO SCH ×2 (07:53→21:12)
[2022-04-08] MEDS: MONTELUKAST 10 MG TAB PO SCH (07:53)
[2022-04-08] MEDS: FLUoxetine HCL 20 MG CAP PO SCH ×2 (07:53→21:12)
[2022-04-08] MEDS: FENOFIBRATE 160 MG TAB PO SCH ×2 (07:53→21:12)
[2022-04-08] MEDS: METOPROLOL SUCCINATE (ER) 25 MG TAB.ER.24H PO SCH (07:53)
[2022-04-08] MEDS: ASPIRIN 81 MG PO SCH ×2 (07:53→21:12)
[2022-04-08] MEDS: FUROSEMIDE 20 MG TAB PO SCH ×2 (07:53→16:53)
[2022-04-08] MEDS: allopurinoL 100 MG TAB PO SCH ×2 (07:53→21:12)
[2022-04-08] MEDS: INSULIN ASPART (NovoLOG) 100 UNIT/ML VIAL SQ SCH ×3 (07:54→16:53)
[2022-04-08 09:10] LABS: Basophils # (A) 0.06 X 10*3/uL (0.00-0.10); Basophils % (A) 0.8 %; Eosinophils # (A) 0.41 X 10*3/uL (0.04-0.35); Eosinophils % (A) 5.3 %; HCT 27.1 % (37.2-46.3); HGB 7.8 g/dL (12.0-15.0); Immature Grans, Automated 0.5 %; Lymphocytes % (A) 23.1 %; MCH 27.9 pg (27.0-32.0); MCHC 28.8 g/dL (32.0-37.0); MCV 96.8 fL (80.0-97.0); Mean Platelet Volume 11.5 fL (9.5-12.2); Monocytes # (A) 0.58 X 10*3/uL (0.20-1.00); Monocytes % (A) 7.4 %; NRBC Per 100 WBC 0 /100 WBCS (0.0-0.0); Neutrophils # (A) 4.91 X 10*3/uL (1.80-7.70); Neutrophils % (A) 62.9 %; Platelet Count 273 X 10*3/uL (140-440); RDW 16.6 % (11.5-14.5)
[2022-04-08 09:27] LABS: ALT 18 U/L (8-44); AST 14 U/L (13-35); African American GFR (CKD) 25.5 (60.0-200.0); Albumin 3.7 g/dL (3.8-4.9); Albumin/Globulin Ratio 1.76 (1.60-3.17); Alkaline Phosphatase 84 U/L (41-126); BUN/Creat Ratio 18.67 Ratio (12.00-20.00); Blood Urea Nitrogen 44.8 mg/dL (9.0-27.0); Calcium 8.6 mg/dL (8.7-10.3); Carbon Dioxide 23.4 mmol/L (20.0-27.5); Chloride 104 mmol/L (96-109); Globulin 2.1 g/dL (1.6-3.3); Glucose 244 mg/dL (70-110); Potassium 4.6 mmol/L (3.5-5.5); Sodium 141 mmol/L (135-145); Total Bilirubin <0.15 mg/dL (0.30-1.20); Total Protein 5.8 g/dL (6.2-8.2)
[2022-04-08] MEDS: SYMBICORT 160-4.5 MCG INHALER INHALATION SCH ×2 (09:37→19:48)
--- NOTE | 2022-04-08 11:10 | PN ---
PROGRESS NOTE SUBJECTIVE: This is a 56-year-old woman, who was admitted with right arm swelling and superficial thrombophlebitis. She is being closely monitored by Hematology/Oncology. The patient has multiple complex medical issues. Pulmonary is also following the patient closely. The patient apparently had DVT of the right subclavian and right axillary vein and endometrial adenocarcinoma. The patient has a history of recent vaginal carcinoma also. Recommend radiation to help to control the vaginal bleeding. OBJECTIVE: VITAL SIGNS: Pulse 84, blood pressure 133/83, respirations 16. CHEST: Clear to auscultation. CARDIOVASCULAR: S1 and S2. ABDOMEN: Soft and obese. LEGS: No edema. NERVOUS SYSTEM: Nonfocal. LABORATORY DATA: Hemoglobin 6.4. PAST MEDICAL HISTORY: Reviewed. REVIEW OF SYSTEMS: Fourteen-point review of systems is negative except as mentioned earlier. CURRENT MEDICATIONS: Reviewed. ASSESSMENT: 1. Right arm swelling due to thrombophlebitis, possible deep venous thrombosis of the subclavian and internal jugular. 2. Blood loss anemia. 3. Endometrial carcinoma with vaginal bleeding. 4. Severe chronic bronchial asthma. 5. Hyperkalemia. 6. Chronic kidney disease, stage 3. 7. Multiple medical issues. RECOMMENDATIONS: Recommend to continue current medications and symptomatic treatment. Otherwise, at this time, I recommend a unit of transfusion. Repeat labs in the morning. Otherwise, plan according to Hematology/Oncology with radiation and possible anticoagulation. Prognosis is guarded. Further recommendations to follow. See orders for details. MMODL / IJN: [id number] /
[2022-04-08 11:19] LABS: Glucose,Whole Blood 285 mg/dL (70-110)
[2022-04-08 11:27] LABS: HGB 6.4 g/dL (12.0-15.0)
--- NOTE | 2022-04-08 12:31 | P.PN ---
Subjective Progress Note Date: 04/08/22 Principal diagnosis: Patient is a 56-year-old female is or has a history of CK D stage III be secondary to diabetic kidney disease with baseline creatinine around 1.5 mg/dL. Patient is admitted to the hospital for pain and swelling in her right arm. This started soon after discharge from her last hospitalization on 03/28/2022. The last hospitalization was for left femur fracture, status post surgical repair on 03/18/2022. Patient also had UTI and developed acute kidney injury which had improved. During that admission Serum creatinine had decreased to 2.3 on 03/27/2022. Peak creatinine was at 2.9 mg/dL. Patient has underlying history of endometrial cancer and is scheduled to start treatment as outpatient. Serum creatinine at 1.7 this admission. She had a Aquino catheter inserted that has been taken out. She wants to go home but her creatinine is going up, and as of this morning creatinine is up from 2.3 yesterday to 2.5 today. Rest of the electrolytes sodium 140, 4.6, 104, 21.8. Calcium is 8.3. blood pressure is from 90s to 120 and urine output is none documented. Objective - Vital Signs Vital signs: Vital Signs Temp 98.2 F 04/08/22 07:34 Pulse 80 04/08/22 09:50 Resp 18 04/08/22 07:34 BP 106/64 04/08/22 07:34 Pulse Ox 98 04/08/22 07:34 FiO2 Intake & Output 04/07/22 04/08/22 04/08/22 18:59 06:59 18:59 Intake Total 663.560 2913.706 Output Total 600 Balance 66.568 1531.706 Intake: Intake, IV Titration 76.568 331.706 Amount Heparin Sod,Pork in 0.45% 76.568 331.706 NaCl 25,000 unit In 0.45 % NaCl 1 250ml.bag @ 6 UNITS/KG/HR 10.015 mls/hr IV .Q24H [facility] Rx#: [id number] Oral 590 1200 Output: Urine 600 Straight 600 Other: Voiding Method Bedside Commode Bedside Commode External Catheter # Voids 1 4 1 # Bowel Movements 1 1 awake alert oriented Lungs are clear to auscultation good air entry bilaterally Heart sounds unremarkable. Abdomen is soft and somewhat obese Extremity exam reveals trace edema Neurologically awake alert oriented - Labs CBC & Chem 7: 04/08/22 05:51 04/08/22 05:51 Labs: Abnormal Lab Results - Last 24 Hours (Table) 04/06/22 04/07/22 04/07/22 Range/Units 05:20 18:01 21:06 RBC (4.10-5.20) X 10*6/uL Hgb 6.4 L* (12.0-15.0) g/dL Hct (37.2-46.3) % MCHC (32.0-37.0) g/dL RDW (11.5-14.5) % Eosinophils # (0.04-0.35) X 10*3/uL APTT (22.0-30.0) sec BUN (9.0-27.0) mg/dL Creatinine (0.6-1.5) mg/dL Est GFR (CKD-EPI)AfAm (60.0-200.0) Est GFR (CKD-EPI)NonAf (60.0-200.0) Glucose (70-110) mg/dL POC Glucose (mg/dL) 257 H 197 H (70-110) mg/dL Calcium (8.7-10.3) mg/dL Total Bilirubin (0.30-1.20) mg/dL Total Protein (6.2-8.2) g/dL Albumin (3.8-4.9) g/dL 04/08/22 04/08/22 04/08/22 Range/Units 05:51 05:51 05:51 RBC 2.80 L (4.10-5.20) X 10*6/uL Hgb 7.8 L (12.0-15.0) g/dL Hct 27.1 L (37.2-46.3) % MCHC 28.8 L (32.0-37.0) g/dL RDW 16.6 H (11.5-14.5) % Eosinophils # 0.41 H (0.04-0.35) X 10*3/uL APTT 35.1 H (22.0-30.0) sec BUN 44.8 H (9.0-27.0) mg/dL Creatinine 2.4 H (0.6-1.5) mg/dL Est GFR (CKD-EPI)AfAm 25.5 L (60.0-200.0) Est GFR (CKD-EPI)NonAf 22.0 L (60.0-200.0) Glucose 244 H (70-110) mg/dL POC Glucose (mg/dL) (70-110) mg/dL Calcium 8.6 L (8.7-10.3) mg/dL Total Bilirubin <0.15 L (0.30-1.20) mg/dL Total Protein 5.8 L (6.2-8.2) g/dL Albumin 3.7 L (3.8-4.9) g/dL 04/08/22 04/08/22 Range/Units 07:31 11:17 RBC (4.10-5.20) X 10*6/uL Hgb (12.0-15.0) g/dL Hct (37.2-46.3) % MCHC (32.0-37.0) g/dL RDW (11.5-14.5) % Eosinophils # (0.04-0.35) X 10*3/uL APTT (22.0-30.0) sec BUN (9.0-27.0) mg/dL Creatinine (0.6-1.5) mg/dL Est GFR (CKD-EPI)AfAm (60.0-200.0) Est GFR (CKD-EPI)NonAf (60.0-200.0) Glucose (70-110) mg/dL POC Glucose (mg/dL) 231 H 285 H (70-110) mg/dL Calcium (8.7-10.3) mg/dL Total Bilirubin (0.30-1.20) mg/dL Total Protein (6.2-8.2) g/dL Albumin (3.8-4.9) g/dL Assessment and Plan Assessment: Impression 1. Acute kidney injury with worsening. Bladder scan has ruled out urinary retention and outlet obstruction. Blood pressure is stable. Her creatinine is fluctuating over the last 6 months. Creatinine was 2 on 08/29/2021, 2.55 dated 02/14/2022, has been as low as 1.45 on 03/18/2022. Ultrasound dated 03/18/2022 hydronephrosis. left kidney was not well visualized but a computed tomography scan on 02/14/2022 shows bilateral kidneys without any hydronephrosis. if there is any more recent hydronephrosis since 03/18/2022, is unclear. 2. History of endometrial Carcinoma. 3. Hyperkalemia secondary to possibly obstructive element. 4. Chronic kidney disease, baseline creatinine 1.9 dated 04/04/2022 and 1.73 on 04/02/2022. Ultrasound dated 03/18/2022 showed right kidney not visualized left is 13.3 cm, a computed tomography scan of abdomen and pelvis on 02/14/2022 showed normal-size kidneys strike not mentioned 5. CT on 02/14/2022 - calcified gallstones are noted. Recommendation 1. Check uric acid 2. Continue Lasix 60 mg by mouth twice a day, 3. Obtain urinalysis and urine protein to creatinine ratio. 4. Redo ultrasound of kidneys if creatinine does not improve by tomorrow
[2022-04-08 14:13] LABS: Appearance,Urine Cloudy (Clear); Bacteria,Urine Moderate /hpf; Bilirubin,Urine Negative (Negative); Blood,Urine Small (Negative); Budding Yeast,Urine Few /hpf; Color,Urine Light Yellow; Glucose,Urine (UA) Negative (Negative); Ketones,Urine Negative (Negative); Leukocyte Esterase,Urine Large (Negative); Mucus,Urine Rare /hpf; Nitrite,Urine Positive (Negative); Protein,Urine Trace (Negative); Protein/Creatinine Ratio,Urine 0.339; RBC,Urine 11 /hpf (0-5); Specific Gravity,Urine 1.012 (1.001-1.035); Squamous Epithelial Cell,Urine 1 /hpf (0-4); Urobilinogen,Urine <2.0 mg/dL (<2.0); WBC,Urine >182 /hpf (0-5)
--- NOTE | 2022-04-08 15:04 | P.PN ---
Subjective Progress Note Date: 04/08/22 This is a pleasant 56-year-old female who recently presented to the emergency department via EMS as [facility] and having some right arm swelling noted to have a blood clot in her right internal carotid right subclavian and right axillary vein that was shown an ultrasound done today. Patient also having some difficulty in breathing. Patient chronically wears 4 L via nasal cannula outpatient. Patient had been on subcutaneous heparin while at rehab. Patient has a past medical history of ovarian cancer, diabetes mellitus, DVT, hypertension, renal disease, rheumatoid arthritis, hypothyroid, lupus, and recent left hip fracture requiring surgical intervention. Patient is morbidly obese with a BMI of 59.4 and has been having difficulty ambulating since the fall. Patient was initiated on IV heparin in the ER. Patient with significant chronic kidney disease and poor kidney functions unable to receive a computed tomography scan and was admitted for further evaluation of this DVT and shortness of breath. Nephrology was consulted along with pulmonary. Patient's primary care provider is Dr. Alicea in the outpatient setting. EKG showed sinus rhythm, chest x-ray showed cardiomegaly with right lower lung opacification most likely atelectasis with suboptimal study due to body habitus, and repeat venous Doppler was done showing no evidence of DVT and there is a superficial thrombus noted within the left cephalic and basilar veins. This revealed a hemoglobin of 9, INR was 1.1, sodium 141 with a potassium of 5.7, creatinine 1.73, BNP 4960 and troponins were negative. 04/04/2022 Patient is seen and evaluated in follow-up today reports to feeling better and continues with generalized aches and pains. Recommend working with physical therapy daily for continued weakness. Patient reports she wants to go home with home care and does not want to return to rehab. Multiple medical consultations nephrology, hematology oncology. Patient with endometrial cancer did discuss with oncologist insulin and also met with radiology oncology Dr. Brdaford although has yet to follow-up outpatient as patient has been in and out of the hospital and rehab. Patient was noted to have hematuria and heparin was stopped as Doppler study was negative. Outside report reports positive DVT and hematology was placed on consult. Records being reviewed and recommend VQ scan along with bilateral lower extremity Dopplers this patient's kidney functions are unstable. Patient is high risk for clots but also high risk for bleeding and continues with anemia. Patient is currently afebrile denies chest pain or worsening shortness of breath. Patient chronically wears 4 L outpatient maintained on that. Reports of nausea or vomiting and patient tolerating diet. Recommend monitoring sugars closely. 04/05/2022 Patient is seen in follow-up today with multiple medical consultations following including vascular surgery that was consulted, hematology, pulmonary, nephrology. Patient was unable to tolerate the VQ scan of the chest with concerns of DVT on the right and will be restarted on IV heparin and radiation oncology being consulted. Patient will be given a dose of DDAVP to minimize the bleeding as she is difficult to anticoagulate given her history of endometrial cancer and anemia. Patient's hemoglobin today is 7.3 WBC remains within normal limits and kidney functions elevated although somewhat stable at 2.19. Nephrology is following recommend continue with low potassium diet as potassium is found to be 5.1 today. Patient is maintained on Lokelma. Patient also receiving IV iron and Lasix has been transitioned to by mouth. Venous Dopplers of bilateral lower extremities were negative for DVT. Recent activity as tolerated and recommend physical therapy daily as patient wishes to return home once discharged. Patient is significantly weak and requires much encouragement to be mobile. 04/08/2022 Patient is seen in follow-up today with multiple medical consultations following and plan is for possible initiation of radiation therapy today. Patient was maintained on IV heparin and we'll transition to oral eliquis as there is no active bleeding noted and will use low-dose for now due to kidney functions. Nephrology following and patient is maintained on by mouth Lasix and will continue. Recommend monitoring blood sugars closely and will continue with sliding scale and diabetic agents. Potassium improved at 4.6 today and recommended follow-up labs. Hemoglobin is stable at 7.8 and patient reports no active bleeding noted. Vital signs are stable and recommend physical therapy daily with possible discharge planning in the next 24-48 hours. Will need to discuss with oncology and radiation oncology about treatment plan moving forward. Patient is afebrile denies chest pain or worsening shortness of breath. Review of systems: Constitutional: No reports of fatigue, fever, or chills Cardiovascular: No reports of chest pain or palpitations Respiratory: No reports of worsening shortness of breath or cough GI: No reports of nausea, vomiting, or diarrhea : No reports of dysuria or retention Neurovascular: reports of generalized weakness All medications have been reviewed PHYSICAL EXAMINATION: GENERAL: The patient is alert and oriented x4, Well developed, well nourished. Morbidly obese HEENT: Pupils are round and equally reacting to light. EOMI. no scleral icterus. No conjunctival pallor. Normocephalic, atraumatic. No pharyngeal erythema. No thyromegaly. CARDIOVASCULAR: S1 and S2 muffled PULMONARY: diminished breath sounds bilaterally with no wheezing or rhonchi noted. ABDOMEN: soft. Nontender on exam. obese. non-distended, normoactive bowel sounds. No palpable organomegaly. MUSCULOSKELETAL: No joint swelling or deformity. EXTREMITIES: No cyanosis, clubbing, or pedal edema. Generalized edema noted throughout upper and lower extremities NEUROLOGICAL: Gross neurological examination did not reveal any focal deficits. Diffuse weakness SKIN: No rashes. Assessment: Right arm swelling due to superficial thrombophlebitis with no evidence of DVT on Doppler here although outpatient Doppler was suggestive of DVT, nonocclusive in the right internal jugular and subclavian veins with an acute occlusive deep vein thrombosis in the right axillary vein Severe chronic bronchial asthma, not in exacerbation Hyperkalemia Anemia, acute blood loss anemia History of recent left hip fracture, status post repair last admission Chronic kidney disease stage III History of heart failure with preserved EF, recent EF is 55-60, not in exacerbation Diabetes mellitus, type II, insulin-dependent Hypertension History of rheumatoid arthritis History of recent diagnosis of endometrial cancer, needs outpatient follow-up and has not received treatment yet GI prophylaxis DVT prophylaxis on IV heparin Full code Plan: Recommend to continue with current medications and management and pulmonary along with nephrology, hematology following. Vascular surgery consulted recommending anticoagulation, radiation oncology following and initiating radiation while inpatient Home medications have been reviewed and resumed Given patient's multiple medical comorbidities and anemia with endometrial cancer patient is difficult to anticoagulate and hematology is following with recommendations being made. Recommend oral anticoagulant and will start today and discontinue heparin Recommend follow-up labs to monitor CBC and BMP Potassium continues to be elevated and maintained on lokelma nephrology following. Recommend low potassium diet Recommend to continue with oral Lasix per nephrology and daily lokelma for now Encouraged increase activity as tolerated Recommend to monitor Accu-Cheks before meals and at bedtime and will use sliding scale Patient's discharge planning his changed and patient would like to go home with home care when stable. Patient does not want to return to rehab Due to multiple complex medical issues, prognosis is guarded Possible discharge in the next 24-48 hours after discussing with oncology and radiation oncology about discharge planning. The impression and plan of care has been dictated by Fabienne Fortune, nurse practitioner as directed. Dr. Karsten MD I have performed a history and examination and MDM of this patient, discussed the same with the dictator, and agree with the dictator's assessment and plan as written ,documented as a scribe. Based on total visit time, I have performed more than 50% of the visit. Any additional findings or plans will be noted. Objective - Vital Signs Vital signs: Vital Signs Temp 97.5 F L 04/08/22 12:30 Pulse 85 04/08/22 12:30 Resp 18 04/08/22 12:30 BP 111/71 04/08/22 12:30 Pulse Ox 99 04/08/22 12:30 FiO2 Intake & Output 04/07/22 04/08/22 04/08/22 18:59 06:59 18:59 Intake Total 659.820 6076.706 Output Total 600 Balance 66.568 1531.706 Intake: Intake, IV Titration 76.568 331.706 Amount Heparin Sod,Pork in 0.45% 76.568 331.706 NaCl 25,000 unit In 0.45 % NaCl 1 250ml.bag @ 6 UNITS/KG/HR 10.015 mls/hr IV .Q24H VANIA Rx#: [id number] Oral 590 1200 Output: Urine 600 Straight 600 Other: Voiding Method Bedside Commode Bedside Commode External Catheter # Voids 1 4 1 # Bowel Movements 1 1 - Labs CBC & Chem 7: 04/08/22 05:51 04/08/22 05:51 Labs: Abnormal Lab Results - Last 24 Hours (Table) 04/06/22 04/07/22 04/07/22 Range/Units 05:20 18:01 21:06 RBC (4.10-5.20) X 10*6/uL Hgb 6.4 L* (12.0-15.0) g/dL Hct (37.2-46.3) % MCHC (32.0-37.0) g/dL RDW (11.5-14.5) % Eosinophils # (0.04-0.35) X 10*3/uL APTT (22.0-30.0) sec BUN (9.0-27.0) mg/dL Creatinine (0.6-1.5) mg/dL Est GFR (CKD-EPI)AfAm (60.0-200.0) Est GFR (CKD-EPI)NonAf (60.0-200.0) Glucose (70-110) mg/dL POC Glucose (mg/dL) 257 H 197 H (70-110) mg/dL Calcium (8.7-10.3) mg/dL Total Bilirubin (0.30-1.20) mg/dL Total Protein (6.2-8.2) g/dL Albumin (3.8-4.9) g/dL Urine Appearance (Clear) Urine Protein (Negative) Urine Blood (Negative) Urine Nitrite (Negative) Ur Leukocyte Esterase (Negative) Urine RBC (0-5) /hpf Urine WBC (0-5) /hpf Urine WBC Clumps (None) /hpf Urine Bacteria (None) /hpf Urine Mucus (None) /hpf Urine Yeast (Budding) (None) /hpf 04/08/22 04/08/22 04/08/22 Range/Units 05:51 05:51 05:51 RBC 2.80 L (4.10-5.20) X 10*6/uL Hgb 7.8 L (12.0-15.0) g/dL Hct 27.1 L (37.2-46.3) % MCHC 28.8 L (32.0-37.0) g/dL RDW 16.6 H (11.5-14.5) % Eosinophils # 0.41 H (0.04-0.35) X 10*3/uL APTT 35.1 H (22.0-30.0) sec BUN 44.8 H (9.0-27.0) mg/dL Creatinine 2.4 H (0.6-1.5) mg/dL Est GFR (CKD-EPI)AfAm 25.5 L (60.0-200.0) Est GFR (CKD-EPI)NonAf 22.0 L (60.0-200.0) Glucose 244 H (70-110) mg/dL POC Glucose (mg/dL) (70-110) mg/dL Calcium 8.6 L (8.7-10.3) mg/dL Total Bilirubin <0.15 L (0.30-1.20) mg/dL Total Protein 5.8 L (6.2-8.2) g/dL Albumin 3.7 L (3.8-4.9) g/dL Urine Appearance (Clear) Urine Protein (Negative) Urine Blood (Negative) Urine Nitrite (Negative) Ur Leukocyte Esterase (Negative) Urine RBC (0-5) /hpf Urine WBC (0-5) /hpf Urine WBC Clumps (None) /hpf Urine Bacteria (None) /hpf Urine Mucus (None) /hpf Urine Yeast (Budding) (None) /hpf 04/08/22 04/08/22 04/08/22 Range/Units 07:31 11:17 11:47 RBC (4.10-5.20) X 10*6/uL Hgb (12.0-15.0) g/dL Hct (37.2-46.3) % MCHC (32.0-37.0) g/dL RDW (11.5-14.5) % Eosinophils # (0.04-0.35) X 10*3/uL APTT >200.0 H* (22.0-30.0) sec BUN (9.0-27.0) mg/dL Creatinine (0.6-1.5) mg/dL Est GFR (CKD-EPI)AfAm (60.0-200.0) Est GFR (CKD-EPI)NonAf (60.0-200.0) Glucose (70-110) mg/dL POC Glucose (mg/dL) 231 H 285 H (70-110) mg/dL Calcium (8.7-10.3) mg/dL Total Bilirubin (0.30-1.20) mg/dL Total Protein (6.2-8.2) g/dL Albumin (3.8-4.9) g/dL Urine Appearance (Clear) Urine Protein (Negative) Urine Blood (Negative) Urine Nitrite (Negative) Ur Leukocyte Esterase (Negative) Urine RBC (0-5) /hpf Urine WBC (0-5) /hpf Urine WBC Clumps (None) /hpf Urine Bacteria (None) /hpf Urine Mucus (None) /hpf Urine Yeast (Budding) (None) /hpf 04/08/22 Range/Units 13:30 RBC (4.10-5.20) X 10*6/uL Hgb (12.0-15.0) g/dL Hct (37.2-46.3) % MCHC (32.0-37.0) g/dL RDW (11.5-14.5) % Eosinophils # (0.04-0.35) X 10*3/uL APTT (22.0-30.0) sec BUN (9.0-27.0) mg/dL Creatinine (0.6-1.5) mg/dL Est GFR (CKD-EPI)AfAm (60.0-200.0) Est GFR (CKD-EPI)NonAf (60.0-200.0) Glucose (70-110) mg/dL POC Glucose (mg/dL) (70-110) mg/dL Calcium (8.7-10.3) mg/dL Total Bilirubin (0.30-1.20) mg/dL Total Protein (6.2-8.2) g/dL Albumin (3.8-4.9) g/dL Urine Appearance Cloudy H (Clear) Urine Protein Trace H (Negative) Urine Blood Small H (Negative) Urine Nitrite Positive H (Negative) Ur Leukocyte Esterase Large H (Negative) Urine RBC 11 H (0-5) /hpf Urine WBC >182 H (0-5) /hpf Urine WBC Clumps Many H (None) /hpf Urine Bacteria Moderate H (None) /hpf Urine Mucus Rare H (None) /hpf Urine Yeast (Budding) Few H (None) /hpf
[2022-04-08] MEDS: APIXABAN 2.5 MG TABLET PO SCH ×2 (15:42→21:14)
[2022-04-08] MEDS: HYDROcodone/APAP 5-325MG 1 EACH TAB PO PRN (15:43)
[2022-04-08 17:06] LABS: Glucose,Whole Blood 263 mg/dL (70-110)
[2022-04-08 20:59] LABS: Glucose,Whole Blood 249 mg/dL (70-110)
[2022-04-08] MEDS: ATORVASTATIN 10 MG TAB PO SCH (21:12)
[2022-04-08] MEDS: SENNOSIDES-DOCUSATE SODIUM 1 EACH TAB PO SCH (21:12)
[2022-04-08] MEDS: PRIMIDONE 50 MG TAB PO SCH (21:12)
[2022-04-09] MEDS: HYDROcodone/APAP 5-325MG 1 EACH TAB PO PRN ×3 (00:02→18:04)
[2022-04-09] MEDS: PANTOPRAZOLE 40 MG TABLET PO SCH ×2 (05:38→21:59)
[2022-04-09 06:57] LABS: African American GFR (CKD) 26 (>60 ml/min/1.73 sqM); Anion Gap 6 mmol/L; Blood Urea Nitrogen 46 mg/dL (7-17); Calcium 8.1 mg/dL (8.4-10.2); Carbon Dioxide 25 mmol/L (22-30); Chloride 109 mmol/L (98-107); Glucose 165 mg/dL (74-99); Non-African American GFR(CKD) 22 (>60 ml/min/1.73 sqM); Potassium 4.5 mmol/L (3.5-5.1); Sodium 140 mmol/L (137-145)
[2022-04-09 07:24] LABS: Glucose,Whole Blood 174 mg/dL (70-110)
[2022-04-09] MEDS: INSULIN ASPART (NovoLOG) 100 UNIT/ML VIAL SQ SCH ×3 (08:45→18:04)
[2022-04-09] MEDS: APIXABAN 2.5 MG TABLET PO SCH ×2 (08:46→21:59)
[2022-04-09] MEDS: FUROSEMIDE 20 MG TAB PO SCH ×2 (08:46→16:39)
[2022-04-09] MEDS: FENOFIBRATE 160 MG TAB PO SCH ×2 (08:46→21:59)
[2022-04-09] MEDS: FLUoxetine HCL 20 MG CAP PO SCH ×2 (08:46→21:59)
[2022-04-09] MEDS: FERROUS SULFATE 325 MG TAB PO SCH (08:46)
[2022-04-09] MEDS: ASPIRIN 81 MG PO SCH ×2 (08:46→21:59)
[2022-04-09] MEDS: allopurinoL 100 MG TAB PO SCH ×2 (08:46→21:59)
[2022-04-09] MEDS: GABAPENTIN 300 MG CAP PO SCH ×2 (08:46→21:59)
[2022-04-09] MEDS: MONTELUKAST 10 MG TAB PO SCH (08:47)
[2022-04-09] MEDS: INSULIN DETEMIR (LEVEMIR) 100 UNIT/ML SYR SQ SCH ×2 (08:47→18:05)
[2022-04-09] MEDS: METOPROLOL SUCCINATE (ER) 25 MG TAB.ER.24H PO SCH (08:47)
[2022-04-09 08:54] LABS: HCT 26.2 % (37.2-46.3); HGB 7.8 g/dL (12.0-15.0); MCH 27.7 pg (27.0-32.0); MCHC 29.8 g/dL (32.0-37.0); MCV 92.9 fL (80.0-97.0); Mean Platelet Volume 11.1 fL (9.5-12.2); NRBC Per 100 WBC 0 /100 WBCS (0.0-0.0); Platelet Count 281 X 10*3/uL (140-440); RBC 2.82 X 10*6/uL (4.10-5.20); RDW 16.8 % (11.5-14.5); WBC 7.85 X 10*3/uL (4.50-10.00)
[2022-04-09 09:08] VITALS: BMI 59.3
--- NOTE | 2022-04-09 09:27 | P.PN ---
Subjective Patient is seen in follow-up for acute kidney injury on chronic kidney disease. Renal function stable. Has been voiding. Oral intake fair. No vomiting or diarrhea. Hemodynamically stable. Vital signs are stable. General: No acute distress. HEENT: Head exam is unremarkable. LUNGS: Breath sounds decreased. HEART: Rate and Rhythm are regular. ABDOMEN: Soft, obese. EXTREMITITES: Trace edema. Objective - Vital Signs Vital signs: Vital Signs Temp 97.3 F L 04/09/22 07:20 Pulse 78 04/09/22 07:20 Resp 18 04/09/22 07:20 BP 107/55 04/09/22 07:20 Pulse Ox 97 04/09/22 07:20 FiO2 Intake & Output 04/08/22 04/09/22 04/09/22 18:59 06:59 18:59 Intake Total 240 Balance 240 Weight 166.922 kg Intake: IV 240 nsat 20 240 Other: Voiding Method External Catheter # Voids 1 1 # Bowel Movements 1 1 - Labs CBC & Chem 7: 04/09/22 06:06 04/09/22 06:06 Labs: Abnormal Lab Results - Last 24 Hours (Table) 04/06/22 04/08/22 04/08/22 Range/Units 05:20 05:51 11:17 RBC (4.10-5.20) X 10*6/uL Hgb 6.4 L* (12.0-15.0) g/dL Hct (37.2-46.3) % MCHC (32.0-37.0) g/dL RDW (11.5-14.5) % APTT (22.0-30.0) sec Chloride (98-107) mmol/L BUN 44.8 H (9.0-27.0) mg/dL Creatinine 2.4 H (0.6-1.5) mg/dL Est GFR (CKD-EPI)AfAm 25.5 L (60.0-200.0) Est GFR (CKD-EPI)NonAf 22.0 L (60.0-200.0) Glucose 244 H (70-110) mg/dL POC Glucose (mg/dL) 285 H (70-110) mg/dL Calcium 8.6 L (8.7-10.3) mg/dL Total Bilirubin <0.15 L (0.30-1.20) mg/dL Total Protein 5.8 L (6.2-8.2) g/dL Albumin 3.7 L (3.8-4.9) g/dL Urine Appearance (Clear) Urine Protein (Negative) Urine Blood (Negative) Urine Nitrite (Negative) Ur Leukocyte Esterase (Negative) Urine RBC (0-5) /hpf Urine WBC (0-5) /hpf Urine WBC Clumps (None) /hpf Urine Bacteria (None) /hpf Urine Mucus (None) /hpf Urine Yeast (Budding) (None) /hpf 04/08/22 04/08/22 04/08/22 Range/Units 11:47 13:30 17:04 RBC (4.10-5.20) X 10*6/uL Hgb (12.0-15.0) g/dL Hct (37.2-46.3) % MCHC (32.0-37.0) g/dL RDW (11.5-14.5) % APTT >200.0 H* (22.0-30.0) sec Chloride (98-107) mmol/L BUN (9.0-27.0) mg/dL Creatinine (0.6-1.5) mg/dL Est GFR (CKD-EPI)AfAm (60.0-200.0) Est GFR (CKD-EPI)NonAf (60.0-200.0) Glucose (70-110) mg/dL POC Glucose (mg/dL) 263 H (70-110) mg/dL Calcium (8.7-10.3) mg/dL Total Bilirubin (0.30-1.20) mg/dL Total Protein (6.2-8.2) g/dL Albumin (3.8-4.9) g/dL Urine Appearance Cloudy H (Clear) Urine Protein Trace H (Negative) Urine Blood Small H (Negative) Urine Nitrite Positive H (Negative) Ur Leukocyte Esterase Large H (Negative) Urine RBC 11 H (0-5) /hpf Urine WBC >182 H (0-5) /hpf Urine WBC Clumps Many H (None) /hpf Urine Bacteria Moderate H (None) /hpf Urine Mucus Rare H (None) /hpf Urine Yeast (Budding) Few H (None) /hpf 04/08/22 04/09/22 04/09/22 Range/Units 20:57 06:06 06:06 RBC 2.82 L (4.10-5.20) X 10*6/uL Hgb 7.8 L (12.0-15.0) g/dL Hct 26.2 L (37.2-46.3) % MCHC 29.8 L (32.0-37.0) g/dL RDW 16.8 H (11.5-14.5) % APTT (22.0-30.0) sec Chloride 109 H (98-107) mmol/L BUN 46 H (9.0-27.0) mg/dL Creatinine 2.37 H (0.6-1.5) mg/dL Est GFR (CKD-EPI)AfAm (60.0-200.0) Est GFR (CKD-EPI)NonAf (60.0-200.0) Glucose 165 H (70-110) mg/dL POC Glucose (mg/dL) 249 H (70-110) mg/dL Calcium 8.1 L (8.7-10.3) mg/dL Total Bilirubin (0.30-1.20) mg/dL Total Protein (6.2-8.2) g/dL Albumin (3.8-4.9) g/dL Urine Appearance (Clear) Urine Protein (Negative) Urine Blood (Negative) Urine Nitrite (Negative) Ur Leukocyte Esterase (Negative) Urine RBC (0-5) /hpf Urine WBC (0-5) /hpf Urine WBC Clumps (None) /hpf Urine Bacteria (None) /hpf Urine Mucus (None) /hpf Urine Yeast (Budding) (None) /hpf 04/09/22 Range/Units 07:23 RBC (4.10-5.20) X 10*6/uL Hgb (12.0-15.0) g/dL Hct (37.2-46.3) % MCHC (32.0-37.0) g/dL RDW (11.5-14.5) % APTT (22.0-30.0) sec Chloride (98-107) mmol/L BUN (9.0-27.0) mg/dL Creatinine (0.6-1.5) mg/dL Est GFR (CKD-EPI)AfAm (60.0-200.0) Est GFR (CKD-EPI)NonAf (60.0-200.0) Glucose (70-110) mg/dL POC Glucose (mg/dL) 174 H (70-110) mg/dL Calcium (8.7-10.3) mg/dL Total Bilirubin (0.30-1.20) mg/dL Total Protein (6.2-8.2) g/dL Albumin (3.8-4.9) g/dL Urine Appearance (Clear) Urine Protein (Negative) Urine Blood (Negative) Urine Nitrite (Negative) Ur Leukocyte Esterase (Negative) Urine RBC (0-5) /hpf Urine WBC (0-5) /hpf Urine WBC Clumps (None) /hpf Urine Bacteria (None) /hpf Urine Mucus (None) /hpf Urine Yeast (Budding) (None) /hpf Assessment and Plan Plan: Assessment: 1. Acute kidney injury secondary to nonrecovered ATN. Also component of anemia and diuresis. The patient's creatinine was near 1.5 in February 2022 and seems to have worsened over the last month. Creatinine this admission peaked at 2.5 and is 2.37 today. CAT scan from February 2022 showed no hydronephrosis. 2. Chronic kidney disease stage IIIB with baseline creatinine near 1.5 secondary to diabetic kidney disease. No proteinuria on UA done 04/05/2022. UPC 0.33. 3. Endometrial cancer. 4. Right upper extremity DVT maintained on anticoagulation. Hematology following. 5. Acute blood loss anemia status post blood transfusion and IV iron this admission. Hemoglobin stable at 7.8 today. No active bleeding. 6. Diabetes mellitus. 7. Preserved ejection fraction noted on echocardiogram done in February 2022. 8. Hyperkalemia secondary to acute kidney injury. Resolved. Plan: Maintain oral Lasix. Avoid nephrotoxins. Repeat renal ultrasound. Check serologies. Continue to monitor renal function and urine output.
[2022-04-09] MEDS: SYMBICORT 160-4.5 MCG INHALER INHALATION SCH ×2 (09:31→19:38)
[2022-04-09] MEDS: ALBUTEROL NEBULIZED 2.5 MG/3 ML INHALATION PRN ×2 (09:32→19:38)
--- NOTE | 2022-04-09 10:38 | US ---
EXAMINATION TYPE: US kidneys/renal and bladder DATE OF EXAM: 04/09/2022 COMPARISON: Renal ultrasound 03/18/2022 CLINICAL HISTORY: [email or web address] Exam limitations due to body habitus. EXAM MEASUREMENTS: Right Kidney: 8.2 x 4.6 x 4.0 cm Left Kidney: 11 x 6.2 x 4.6 cm Right Kidney: Limited due to body habitus. No gross evidence of hydronephrosis, mass or shadowing r enal calculi. Left Kidney: No hydronephrosis or masses seen . No shadowing calculi. Bladder: Not visualized Bilateral Jets seen: No There is no evidence for hydronephrosis at this point in time. No nephrolithiasis is seen. No karley s are identified. IMPRESSION: Limited examination of the right kidney and urinary bladder secondary to patient's body habitus. No v isualized evidence of hydronephrosis.
[2022-04-09 11:31] LABS: Glucose,Whole Blood 212 mg/dL (70-110)
[2022-04-09 17:10] LABS: Glucose,Whole Blood 241 mg/dL (70-110)
[2022-04-09 19:42] LABS: Hepatitis A Antibody IgM Nonreactive (Nonreactive); Hepatitis B Core IgM Nonreactive (Nonreactive); Hepatitis B Surface Antigen Nonreactive (Nonreactive); Hepatitis C IgG Antibody Nonreactive (Nonreactive)
[2022-04-09 20:28] LABS: Anti-DNA, DS unit <1.0 IU/mL; DNA Double-Stranded NEGATIVE (NEGATIVE)
[2022-04-09 21:15] LABS: Glucose,Whole Blood 252 mg/dL (70-110)
[2022-04-09] MEDS: PRIMIDONE 50 MG TAB PO SCH (21:59)
[2022-04-09] MEDS: SENNOSIDES-DOCUSATE SODIUM 1 EACH TAB PO SCH (21:59)
[2022-04-09] MEDS: ATORVASTATIN 10 MG TAB PO SCH (21:59)
[2022-04-10] MEDS: HYDROcodone/APAP 5-325MG 1 EACH TAB PO PRN (02:04)
[2022-04-10 02:06] VITALS: RESP 18
--- NOTE | 2022-04-10 03:05 | P.PN ---
Subjective Progress Note Date: 04/09/22 This is a pleasant 56-year-old female who recently presented to the emergency department via EMS as she was at a longterm rehab and having some right arm swelling noted to have a blood clot in her right internal carotid right subclavian and right axillary vein that was shown an ultrasound done today. Patient also having some difficulty in breathing. Patient chronically wears 4 L via nasal cannula outpatient. Patient had been on subcutaneous heparin while at rehab. Patient has a past medical history of ovarian cancer, diabetes mellitus, DVT, hypertension, renal disease, rheumatoid arthritis, hypothyroid, lupus, and recent left hip fracture requiring surgical intervention. Patient is morbidly obese with a BMI of 59.4 and has been having difficulty ambulating since the fall. Patient was initiated on IV heparin in the ER. Patient with significant chronic kidney disease and poor kidney functions unable to receive a computed tomography scan and was admitted for further evaluation of this DVT and shortness of breath. Nephrology was consulted along with pulmonary. Patient's primary care provider is Dr. Alicea in the outpatient setting. EKG showed sinus rhythm, chest x-ray showed cardiomegaly with right lower lung opacification most likely atelectasis with suboptimal study due to body habitus, and repeat venous Doppler was done showing no evidence of DVT and there is a superficial thrombus noted within the left cephalic and basilar veins. This revealed a hemoglobin of 9, INR was 1.1, sodium 141 with a potassium of 5.7, creatinine 1.73, BNP 4960 and troponins were negative. 04/04/2022 Patient is seen and evaluated in follow-up today reports to feeling better and continues with generalized aches and pains. Recommend working with physical therapy daily for continued weakness. Patient reports she wants to go home with home care and does not want to return to rehab. Multiple medical consultations nephrology, hematology oncology. Patient with endometrial cancer did discuss with oncologist insulin and also met with radiology oncology Dr. Bradford although has yet to follow-up outpatient as patient has been in and out of the hospital and rehab. Patient was noted to have hematuria and heparin was stopped as Doppler study was negative. Outside report reports positive DVT and hematology was placed on consult. Records being reviewed and recommend VQ scan along with bilateral lower extremity Dopplers this patient's kidney functions are unstable. Patient is high risk for clots but also high risk for bleeding and continues with anemia. Patient is currently afebrile denies chest pain or worsening shortness of breath. Patient chronically wears 4 L outpatient maintained on that. Reports of nausea or vomiting and patient tolerating diet. Recommend monitoring sugars closely. 04/05/2022 Patient is seen in follow-up today with multiple medical consultations following including vascular surgery that was consulted, hematology, pulmonary, nephrology. Patient was unable to tolerate the VQ scan of the chest with concerns of DVT on the right and will be restarted on IV heparin and radiation oncology being consulted. Patient will be given a dose of DDAVP to minimize the bleeding as she is difficult to anticoagulate given her history of endometrial cancer and anemia. Patient's hemoglobin today is 7.3 WBC remains within normal limits and kidney functions elevated although somewhat stable at 2.19. Nephrology is following recommend continue with low potassium diet as potassium is found to be 5.1 today. Patient is maintained on Lokelma. Patient also receiving IV iron and Lasix has been transitioned to by mouth. Venous Dopplers of bilateral lower extremities were negative for DVT. Recent activity as tolerated and recommend physical therapy daily as patient wishes to return home once discharged. Patient is significantly weak and requires much encouragement to be mobile. 04/08/2022 Patient is seen in follow-up today with multiple medical consultations following and plan is for possible initiation of radiation therapy today. Patient was maintained on IV heparin and we'll transition to oral eliquis as there is no active bleeding noted and will use low-dose for now due to kidney functions. Nephrology following and patient is maintained on by mouth Lasix and will continue. Recommend monitoring blood sugars closely and will continue with sliding scale and diabetic agents. Potassium improved at 4.6 today and recommended follow-up labs. Hemoglobin is stable at 7.8 and patient reports no active bleeding noted. Vital signs are stable and recommend physical therapy daily with possible discharge planning in the next 24-48 hours. Will need to discuss with oncology and radiation oncology about treatment plan moving forward. Patient is afebrile denies chest pain or worsening shortness of breath. 04/09/2022 Patient is seen and evaluated this morning with multiple medical consultations following. Patient was to undergo mapping for initiation of radiation therapy although given body habitus and positioning unable to perform and patient will need outpatient follow-up with consultations. Patient started on oral anticoagulant and also being followed by nephrology recommend continuing current medications and oral Lasix. Discharge planning in process and patient would like to go home with home care established. Patient is currently afebrile denies chest pain or worsening shortness of breath. Patient tolerating diet with no reports of nausea or vomiting noted. Review of systems: Constitutional: No reports of fatigue, fever, or chills Cardiovascular: No reports of chest pain or palpitations Respiratory: No reports of worsening shortness of breath or cough GI: No reports of nausea, vomiting, or diarrhea : No reports of dysuria or retention Neurovascular: reports of generalized weakness All medications have been reviewed PHYSICAL EXAMINATION: GENERAL: The patient is alert and oriented x4, Well developed, well nourished. Morbidly obese HEENT: Pupils are round and equally reacting to light. EOMI. no scleral icterus. No conjunctival pallor. Normocephalic, atraumatic. No pharyngeal erythema. No th yromegaly. CARDIOVASCULAR: S1 and S2 muffled PULMONARY: diminished breath sounds bilaterally with no wheezing or rhonchi noted. ABDOMEN: soft. Nontender on exam. obese. non-distended, normoactive bowel sounds. No palpable organomegaly. MUSCULOSKELETAL: No joint swelling or deformity. EXTREMITIES: No cyanosis, clubbing, or pedal edema. Generalized edema noted throughout upper and lower extremities NEUROLOGICAL: Gross neurological examination did not reveal any focal deficits. Diffuse weakness SKIN: No rashes. Assessment: Right arm swelling due to superficial thrombophlebitis with no evidence of DVT on Doppler here although outpatient Doppler was suggestive of DVT, nonocclusive in the right internal jugular and subclavian veins with an acute occlusive deep vein thrombosis in the right axillary vein Severe chronic bronchial asthma, not in exacerbation Hyperkalemia, improved Anemia, acute blood loss anemia possibly secondary to endometrial cancer History of recent left hip fracture, status post repair last admission Chronic kidney disease stage III History of heart failure with preserved EF, recent EF is 55-60, not in exacerbation Diabetes mellitus, type II, insulin-dependent Hypertension History of rheumatoid arthritis History of recent diagnosis of endometrial cancer, needs outpatient follow-up and has not received treatment yet GI prophylaxis DVT prophylaxis on eliquis Full code Plan: Recommend to continue with current medications and management and pulmonary a long with nephrology, hematology following. Vascular surgery consulted recommending anticoagulation, radiation oncology following and attempted today have mapping done to initiate radiation therapy although unable to at this time and will need outpatient follow-up Recommend follow-up labs to monitor CBC and BMP Recommend to continue with oral Lasix per nephrology and low potassium diet Encouraged increase activity as tolerated Recommend to monitor Accu-Cheks before meals and at bedtime and will use sliding scale Patient's discharge planning has changed and patient would like to go home with home care when stable. Patient will require a wheelchair on discharge to assist with performing ADLs as patient is unable to do on her own due to multiple medical comorbidities. Patient does have support in the home to assist with propelling to aid in ADLs. Due to multiple complex medical issues, prognosis is guarded Possible discharge in the next 24 hours and will need close outpatient follow-up with multiple medical consultations. The impression and plan of care has been dictated by Fabienne Fortune, nurse practitioner as directed. Dr. Karsten MD I have performed a history and examination and MDM of this patient, discussed the same with the dictator, and agree with the dictator's assessment and plan as written ,documented as a scribe. Based on total visit time, I have performed more than 50% of the visit. Any additional findings or plans will be noted. Objective - Vital Signs Vital signs: Vital Signs Temp 97.3 F L 04/09/22 12:15 Pulse 81 04/09/22 12:15 Resp 18 04/09/22 12:15 BP 108/72 04/09/22 12:15 Pulse Ox 98 04/09/22 12:15 FiO2 Intake & Output 04/08/22 04/09/22 04/09/22 18:59 06:59 18:59 Intake Total 240 Balance 240 Weight 166.922 kg Intake: IV 240 nsat 20 240 Other: Voiding Method External Catheter External Catheter # Voids 1 1 1 # Bowel Movements 1 1 1 - Labs CBC & Chem 7: 04/09/22 06:06 04/09/22 06:06 Labs: Abnormal Lab Results - Last 24 Hours (Table) 04/08/22 04/08/22 04/09/22 Range/Units 17:04 20:57 06:06 RBC 2.82 L (4.10-5.20) X 10*6/uL Hgb 7.8 L (12.0-15.0) g/dL Hct 26.2 L (37.2-46.3) % MCHC 29.8 L (32.0-37.0) g/dL RDW 16.8 H (11.5-14.5) % Chloride (98-107) mmol/L BUN (7-17) mg/dL Creatinine (0.52-1.04) mg/dL Glucose (74-99) mg/dL POC Glucose (mg/dL) 263 H 249 H (70-110) mg/dL Calcium (8.4-10.2) mg/dL 04/09/22 04/09/22 04/09/22 Range/Units 06:06 07:23 11:30 RBC (4.10-5.20) X 10*6/uL Hgb (12.0-15.0) g/dL Hct (37.2-46.3) % MCHC (32.0-37.0) g/dL RDW (11.5-14.5) % Chloride 109 H (98-107) mmol/L BUN 46 H (7-17) mg/dL Creatinine 2.37 H (0.52-1.04) mg/dL Glucose 165 H (74-99) mg/dL POC Glucose (mg/dL) 174 H 212 H (70-110) mg/dL Calcium 8.1 L (8.4-10.2) mg/dL
[2022-04-10] MEDS: PANTOPRAZOLE 40 MG TABLET PO SCH (06:25)
[2022-04-10 07:16] LABS: Glucose,Whole Blood 228 mg/dL (70-110)
[2022-04-10] MEDS: allopurinoL 100 MG TAB PO SCH (08:13)
[2022-04-10] MEDS: INSULIN ASPART (NovoLOG) 100 UNIT/ML VIAL SQ SCH ×2 (08:13→12:32)
[2022-04-10] MEDS: APIXABAN 2.5 MG TABLET PO SCH (08:13)
[2022-04-10] MEDS: MONTELUKAST 10 MG TAB PO SCH (08:14)
[2022-04-10] MEDS: FERROUS SULFATE 325 MG TAB PO SCH (08:14)
[2022-04-10] MEDS: GABAPENTIN 300 MG CAP PO SCH (08:14)
[2022-04-10] MEDS: ASPIRIN 81 MG PO SCH (08:14)
[2022-04-10] MEDS: METOPROLOL SUCCINATE (ER) 25 MG TAB.ER.24H PO SCH (08:14)
[2022-04-10] MEDS: FUROSEMIDE 20 MG TAB PO SCH (08:14)
[2022-04-10] MEDS: FLUoxetine HCL 20 MG CAP PO SCH (08:14)
[2022-04-10] MEDS: FENOFIBRATE 160 MG TAB PO SCH (08:14)
[2022-04-10] MEDS: INSULIN DETEMIR (LEVEMIR) 100 UNIT/ML SYR SQ SCH (08:15)
[2022-04-10] MEDS: ALBUTEROL NEBULIZED 2.5 MG/3 ML INHALATION PRN (08:33)
[2022-04-10] MEDS: SYMBICORT 160-4.5 MCG INHALER INHALATION SCH (08:33)
[2022-04-10 10:25] LABS: African American GFR (CKD) 19.1 (60.0-200.0); BUN/Creat Ratio 17.11 Ratio (12.00-20.00); Blood Urea Nitrogen 52.2 mg/dL (9.0-27.0); Calcium 8.9 mg/dL (8.7-10.3); Carbon Dioxide 23.5 mmol/L (20.0-27.5); Magnesium 1.7 mg/dL (1.5-2.4); Non-African American GFR(CKD) 16.5 (60.0-200.0)
[2022-04-10 11:17] LABS: Glucose,Whole Blood 251 mg/dL (70-110)
--- NOTE | 2022-04-10 12:03 | P.PN ---
Subjective Patient is seen in follow-up for acute kidney injury on chronic kidney disease. Renal function worse today. Creatinine 3.1. Has been voiding. Oral intake fair. No vomiting or diarrhea. Hemodynamically stable. Vital signs are stable. General: No acute distress. HEENT: Head exam is unremarkable. LUNGS: Breath sounds decreased. HEART: Rate and Rhythm are regular. ABDOMEN: Soft, obese. EXTREMITITES: 2+ edema. Objective - Vital Signs Vital signs: Vital Signs Temp 98.2 F 04/10/22 07:15 Pulse 84 04/10/22 08:42 Resp 18 04/10/22 07:15 BP 101/64 04/10/22 07:15 Pulse Ox 96 04/10/22 08:34 FiO2 Intake & Output 04/09/22 04/10/22 04/10/22 18:59 06:59 18:59 Intake Total 360 Output Total 250 400 Balance 110 -400 Weight 166.922 kg Intake: Oral 360 Output: Urine 250 400 Other: Voiding Method External Catheter Bedside Commode Bedside Commode # Voids 1 1 # Bowel Movements 1 1 - Labs CBC & Chem 7: 04/09/22 06:06 04/10/22 07:36 Labs: Abnormal Lab Results - Last 24 Hours (Table) 04/09/22 04/09/22 04/09/22 Range/Units 11:31 11:31 17:09 BUN (9.0-27.0) mg/dL Creatinine (0.6-1.5) mg/dL Est GFR (CKD-EPI)AfAm (60.0-200.0) Est GFR (CKD-EPI)NonAf (60.0-200.0) Glucose (70-110) mg/dL POC Glucose (mg/dL) 241 H (70-110) mg/dL SASHA Screen POSITIVE A (NEGATIVE) Complement C4 53.5 H (10.0-53.0) mg/dL 04/09/22 04/10/22 04/10/22 Range/Units 21:12 07:14 07:36 BUN 52.2 H (9.0-27.0) mg/dL Creatinine 3.1 H (0.6-1.5) mg/dL Est GFR (CKD-EPI)AfAm 19.1 L (60.0-200.0) Est GFR (CKD-EPI)NonAf 16.5 L (60.0-200.0) Glucose 221 H (70-110) mg/dL POC Glucose (mg/dL) 252 H 228 H (70-110) mg/dL SASHA Screen (NEGATIVE) Complement C4 (10.0-53.0) mg/dL 04/10/22 Range/Units 11:16 BUN (9.0-27.0) mg/dL Creatinine (0.6-1.5) mg/dL Est GFR (CKD-EPI)AfAm (60.0-200.0) Est GFR (CKD-EPI)NonAf (60.0-200.0) Glucose (70-110) mg/dL POC Glucose (mg/dL) 251 H (70-110) mg/dL SASHA Screen (NEGATIVE) Complement C4 (10.0-53.0) mg/dL Assessment and Plan Plan: Assessment: 1. Acute kidney injury secondary to nonrecovered ATN. Also component of anemia and diuresis. The patient's creatinine was near 1.5 in February 2022 and seems to have worsened over the last month. Creatinine 3.1 today. CAT scan from February 2022 showed no hydronephrosis. Ultrasound this admission shows atrophic right kidney but no evidence of hydronephrosis. 2. Chronic kidney disease stage IIIB with baseline creatinine near 1.5 secon caitlin to diabetic kidney disease. No proteinuria on UA done 04/05/2022. UPC 0.33. 3. Endometrial cancer. 4. Right upper extremity DVT maintained on anticoagulation. Hematology following. 5. Acute blood loss anemia status post blood transfusion and IV iron this admission. Hemoglobin stable at 7.8 today. No active bleeding. 6. Diabetes mellitus. 7. Preserved ejection fraction noted on echocardiogram done in February 2022. 8. Hyperkalemia secondary to acute kidney injury. Resolved. Cortisol level 28 dated 03/21/2022. Plan: Maintain oral Lasix. Avoid nephrotoxins. Follow-up serologies. Negative so far except for positive SASHA. Continue to monitor renal function and urine output. Resume midodrine. Hold for systolic blood pressure greater than 115.
[2022-04-10] MEDS ORDERED: MIDODRINE 5 MG TAB PO SCH (12:30)
[2022-04-10 12:43] VITALS: BP 105/67; PULSE 82; TEMP 97.6
[2022-04-10 13:34] LABS: ANA Pattern Speckled
[2022-04-10 13:51] LABS: C-ANCA <1:20 Titer (<1:20)
--- NOTE | 2022-04-10 18:09 | P.PN ---
Subjective Progress Note Date: 04/10/22 Principal diagnosis: RUE swelling, DVT of right subclavian vein and right axillary vein, endometrial adenocarcinoma Pt Laying in bed, no acute complaints. Denies any bleeding, no reported vaginal bleeding. She has been started on eliquis, has tolerated well so far. Objective - Vital Signs Vital signs: Vital Signs Temp 97.6 F 04/10/22 12:20 Pulse 82 04/10/22 12:20 Resp 18 04/10/22 12:20 BP 105/67 04/10/22 12:20 Pulse Ox 99 04/10/22 12:20 FiO2 Intake & Output 04/09/22 04/10/22 04/10/22 18:59 06:59 18:59 Intake Total 360 Output Total 250 400 Balance 110 -400 Weight 166.922 kg Intake: Oral 360 Output: Urine 250 400 Other: Voiding Method External Catheter Bedside Commode Bedside Commode # Voids 1 1 # Bowel Movements 1 1 - Constitutional General appearance: Present: cooperative, morbidly obese - EENT Eyes: Present: anicteric sclerae, EOMI - Respiratory Details: resp even and unlabored at rest - Neurologic Neurologic: Present: CNII-XII intact (grossly) - Psychiatric Psychiatric: Present: A&O x's 3, appropriate affect, intact judgment & insight - Labs CBC & Chem 7: 04/09/22 06:06 04/10/22 07:36 Labs: Abnormal Lab Results - Last 24 Hours (Table) 04/09/22 04/09/22 04/09/22 Range/Units 11:31 11:31 17:09 BUN (9.0-27.0) mg/dL Creatinine (0.6-1.5) mg/dL Est GFR (CKD-EPI)AfAm (60.0-200.0) Est GFR (CKD-EPI)NonAf (60.0-200.0) Glucose (70-110) mg/dL POC Glucose (mg/dL) 241 H (70-110) mg/dL SASHA Screen POSITIVE A (NEGATIVE) Complement C4 53.5 H (10.0-53.0) mg/dL 04/09/22 04/10/22 04/10/22 Range/Units 21:12 07:14 07:36 BUN 52.2 H (9.0-27.0) mg/dL Creatinine 3.1 H (0.6-1.5) mg/dL Est GFR (CKD-EPI)AfAm 19.1 L (60.0-200.0) Est GFR (CKD-EPI)NonAf 16.5 L (60.0-200.0) Glucose 221 H (70-110) mg/dL POC Glucose (mg/dL) 252 H 228 H (70-110) mg/dL SASHA Screen (NEGATIVE) Complement C4 (10.0-53.0) mg/dL 04/10/22 Range/Units 11:16 BUN (9.0-27.0) mg/dL Creatinine (0.6-1.5) mg/dL Est GFR (CKD-EPI)AfAm (60.0-200.0) Est GFR (CKD-EPI)NonAf (60.0-200.0) Glucose (70-110) mg/dL POC Glucose (mg/dL) 251 H (70-110) mg/dL SASHA Screen (NEGATIVE) Complement C4 (10.0-53.0) mg/dL Assessment and Plan (1) Endometrial adenocarcinoma Status: Acute Priority: High Code(s): C54.1 - MALIGNANT NEOPLASM OF ENDOMETRIUM SNOMED Code(s): 843841739 (2) DVT of axillary vein, acute right Status: Acute Priority: High Code(s): I82.A11 - ACUTE EMBOLISM AND THROMBOSIS OF RIGHT AXILLARY VEIN SNOMED Code(s): 811414836188740 (3) Thrombosis of internal carotid Status: Acute Priority: High Code(s): I65.29 - OCCLUSION AND STENOSIS OF UNSPECIFIED CAROTID ARTERY SNOMED Code(s): 569236949 (4) Thrombosis of subclavian artery Status: Acute Priority: High Code(s): I74.8 - EMBOLISM AND THROMBOSIS OF O THER ARTERIES SNOMED Code(s): 933263558 Plan: BLE dopplers negative for DVT. Patient unable to tolerate VQ scan. RUE doppler report from [facility] reviewed. She was unable to position properly on repeat doppler of RUE, so will treatment patient based on doppler report from [facility] Pt has been on therapeutic dose heparin with no bleeding to report. Patient started eliquis yesterday. Discussed case with Attending. Recommendation is for therapeutic dose so eliquis dose increased from 2.5mg to 5 mg by mouth twice a day. Patient will continue on this dose for now. Spoke with Dr Fatemeh Bateman Onc. F/U in a few weeks to plan radiation, per pt request. Rad Onc discussed the case with [employer] Oncology Dr. Abrams. The patient is going to have a long delay between now and starting treatment-she is participating in therapy for recent hip fracture, She has to coordinate rides. He recommended possibly to begin Megace for treatment of the endometrial cancer. Unfortunate, there is a risk of Megace and blood clots. Patient is also curr ently have bleeding risk because of untreated cancer and needing to be on anticoagulation for right upper extremity DVT. Risk versus benefit in this particular case, starting 40 mg of Megace twice a day for treatment of endometrial carcinoma(Rx sent for the same), may help to control some bleeding while patient continues on full dose anticoagulation which will hopefully prevent her from forming DVT. Patient will be following up with Rad Oncology and TELE TECH Onc. Time with Patient: Greater than 30
[2022-04-11 11:49] LABS: Free Kappa Lt Chain Qnt, Serum 6.69 mg/dL (0.33-1.94); Free Lambda Lt Chain Qnt, Seru 3.57 mg/dL (0.57-2.63)
== END 2022-04-10 15:51 | disposition home health service (06) | DRG 299 ==
LOC: EC 15:12 → 5NMEDONC 19:12
PROVIDERS: ADMIT Hospitalist; ATTEND Hospitalist
PROC: 30233N1 Transfusion of Nonautologous Red Blood Cells into Peripheral Vein, Percutaneous Approach (ICD-10-PCS; principal; 2022-04-06)
DX: I82.A11 Acute embolism and thrombosis of right axillary vein (principal); N17.0 Acute kidney failure with tubular necrosis; D62 Acute posthemorrhagic anemia; I13.0 Hypertensive heart and chronic kidney disease with heart failure and stage 1 through stage 4 chronic kidney disease, or unspecified chronic kidney disease; I47.1 Supraventricular tachycardia; I50.32 Chronic diastolic (congestive) heart failure; J98.11 Atelectasis; Z68.43 Body mass index [BMI] 50.0-59.9, adult; I82.621 Acute embolism and thrombosis of deep veins of right upper extremity; C54.1 Malignant neoplasm of endometrium; E03.9 Hypothyroidism, unspecified; E11.22 Type 2 diabetes mellitus with diabetic chronic kidney disease; E66.01 Morbid (severe) obesity due to excess calories; E87.5 Hyperkalemia; F41.9 Anxiety disorder, unspecified; I65.29 Occlusion and stenosis of unspecified carotid artery; I80.8 Phlebitis and thrombophlebitis of other sites; I82.B11 Acute embolism and thrombosis of right subclavian vein; J44.9 Chronic obstructive pulmonary disease, unspecified; K80.20 Calculus of gallbladder without cholecystitis without obstruction; M06.9 Rheumatoid arthritis, unspecified; M32.9 Systemic lupus erythematosus, unspecified; J45.998 Other asthma; D63.1 Anemia in chronic kidney disease; E05.00 Thyrotoxicosis with diffuse goiter without thyrotoxic crisis or storm; N18.32 Chronic kidney disease, stage 3b; W19.XXXD Unspecified fall, subsequent encounter; Z79.4 Long term (current) use of insulin; Z79.82 Long term (current) use of aspirin; Z79.899 Other long term (current) drug therapy; Z82.49 Family history of ischemic heart disease and other diseases of the circulatory system; Z83.3 Family history of diabetes mellitus; Z85.6 Personal history of leukemia; Z87.442 Personal history of urinary calculi; Z91.041 Radiographic dye allergy status; Z84.1 Family history of disorders of kidney and ureter; Z88.1 Allergy status to other antibiotic agents; Z88.5 Allergy status to narcotic agent; Z88.2 Allergy status to sulfonamides; S72.92XD Unspecified fracture of left femur, subsequent encounter for closed fracture with routine healing; Z87.440 Personal history of urinary (tract) infections; Z85.43 Personal history of malignant neoplasm of ovary
CPT/HCPCS: 36415; 71045; 76770; 80048; 80053; 80074; 81001; 82272; 82570; 83605; 83735; 83880; 83883; 84132; 84156; 84300; 84484; 84540; 84550; 85025; 85027; 85610; 85730; 86038; 86039; 86160; 86162; 86225; 86255; 86334; 86335; 86850; 86900; 86901; 86920; 93005; 93970; 94640; 94760; 96365; 96366; 96375; 99291

== ENCOUNTER 2022-04-13 18:56 | Observation (INO) | payer MEDICARE ==
[2022-04-13] MEDS ORDERED: SODIUM CHLORIDE 0.9% 1,000 ML IV STA (19:09)
[2022-04-13] MEDS ORDERED: ONDANSETRON 4 MG/2 ML VIAL IVP STA (19:09)
[2022-04-13] MEDS ORDERED: FAMOTIDINE 20 MG/2 ML VIAL IV STA (19:14)
[2022-04-13] MEDS ORDERED: IPRATROPIUM-ALBUTEROL 3 ML NEB INHALATION STA (19:14)
--- NOTE | 2022-04-13 19:16 | ED ---
General Adult HPI - General Chief complaint: Shortness of Breath Stated complaint: NVD Time Seen by Provider: 04/13/22 19:01 Source: patient, EMS, RN notes reviewed Mode of arrival: EMS Limitations: no limitations - History of Present Illness Initial comments: Patient is a pleasant 56-year-old female presenting to the emergency Department with complaints for vomiting. Onset of symptoms was a couple of days ago. Patient is also having diarrhea couple times a day. Mild abdominal discomfort. Patient also has some mild dyspnea. Patient does have history of COPD. Patient does complain of some congestion. Patient denies fevers. Patient does have history of endometrial cancer. Therapy is currently on-call secondary to treatment causing a hip fracture on her. - Related Data Home Medications Medication Instructions Recorded Confirmed FLUoxetine HCL [PROzac] 20 mg PO BID@0900,2100 01/09/17 04/02/22 Montelukast [Singulair] 10 mg PO DAILY 01/09/17 04/02/22 gemfibroziL [Lopid] 600 tab PO BID 01/09/17 04/02/22 Albuterol Inhaler [Ventolin Hfa 2 puff INHALATION RT-Q4H PRN 01/14/17 04/02/22 Inhaler] Albuterol Nebulized [Ventolin 2.5 mg INHALATION RT-QID PRN 01/14/17 04/02/22 Nebulized] allopurinoL [Zyloprim] 100 mg PO BID 01/21/22 04/02/22 Atorvastatin [Lipitor] 10 mg PO HS 02/15/22 04/02/22 Ondansetron [Zofran] 4 mg PO Q12HR PRN 02/15/22 04/02/22 Pantoprazole [Protonix] 40 mg PO BID@0600,2100 02/15/22 04/02/22 Fluticasone/Vilanterol [Breo 1 puff INHALATION RT-BID 04/02/22 04/02/22 Ellipta 200-25 Mcg Inhaler] Gabapentin [Gralise] 600 mg PO BID 04/02/22 04/02/22 HYDROcodone/APAP 5-325MG [[place] 1 tab PO Q6HR PRN 04/02/22 04/02/22 5-325] Insulin Glargine-Yfgn [Semglee 10 unit SQ BID@0900,1700 04/02/22 04/02/22 (Yfgn) Pen] Insulin Lispro [humaLOG Kwikpen] 2 units SQ TID@0700,1100,1600 04/02/22 04/02/22 Insulin Lispro [humaLOG Kwikpen] See Protocol SQ DIRECTED 04/02/22 04/02/22 Sennosides-Docusate Sodium 2 tab PO HS 04/02/22 04/02/22 [Senokot-S] Previous Rx's Medication Instructions Recorded Acetaminophen Tab [Tylenol] 650 mg PO Q6HR PRN tab 03/28/22 Aspirin 81 mg PO BID tab 03/28/22 Ferrous Sulfate [Iron (65 MG 325 mg PO DAILY #30 tab 03/28/22 Elemental)] Metoprolol Succinate (ER) [Toprol 75 mg PO DAILY tab 03/28/22 XL] Primidone [Mysoline] 50 mg PO HS tab 03/28/22 Apixaban [Eliquis] 5 mg PO BID 30 Days #60 tab 04/10/22 Furosemide [Lasix] 60 mg PO BID@0900,1600 30 Days 04/10/22 #180 tab Megestrol [Megace] 40 mg PO BID #60 tablet 04/10/22 Midodrine [ProAmatine] 5 mg PO AC-TID 30 Days #90 tab 04/10/22 Allergies Allergy/AdvReac Type Severity Reaction Status Date / Time ciprofloxacin [From Cipro] Allergy Swelling Verified 04/02/22 17:33 diphenhydramine Allergy Swelling Verified 04/02/22 17:33 [From Benadryl] iodine Allergy Swelling Verified 04/02/22 17:33 propoxyphene Allergy Swelling Verified 04/02/22 17:33 [From Darvocet-N] red dye Allergy Swelling Verified 04/02/22 17:33 sulfacetamide Allergy Swelling Verified 04/02/22 17:33 [From Sulfamide] yellow dye Allergy Swelling Verified 04/02/22 17:33 FLU VACCINE? Allergy Unknown Uncoded 04/02/22 15:17 Review of Systems ROS Statement: Those systems with pertinent positive or pertinent negative responses have been documented in the HPI. ROS Other: All systems not noted in ROS Statement are negative. Constitutional: Denies: fever Eyes: Denies: eye pain ENT: Reports: congestion. Denies: ear pain Respiratory: Reports: cough, dyspnea Cardiovascular: Denies: chest pain Endocrine: Denies: fatigue Gastrointestinal: Reports: as per HPI, nausea, vomiting, diarrhea Genitourinary: Denies: dysuria Musculoskeletal: Denies: back pain Skin: Denies: rash Neurological: Denies: weakness Past Medical History Past Medical History: Cancer, Diabetes Mellitus, Deep Vein Thrombosis (DVT), Hypertension, Renal Disease, Rheumatoid Arthritis (RA), Thyroid Disorder Additional Past Medical History / Comment(s): O2 @ 4L. SLE LUPUS. STAGE 3 KIDNEY DISEASE. Leukemia, GRAVES DZ , kidney stones, gout, Uterine cancer (recent diagnosis, no treatment yet) History of Any Multi-Drug Resistant Organisms: None Reported Past Surgical History: No Surgical Hx Reported Additional Past Surgical History / Comment(s): BILATERAL ARTHROSCOPY KNEES. D & C (MISCARRIAGES). Past Anesthesia/Blood Transfusion Reactions: No Reported Reaction Past Psychological History: Anxiety Smoking Status: Never smoker Past Alcohol Use History: None Reported Past Drug Use History: None Reported - Past Family History Mother Family Medical History: Congestive Heart Failure (CHF), Diabetes Mellitus Father Family Medical History: Congestive Heart Failure (CHF), Dialysis, Hypertension General Exam Limitations: no limitations General appearance: alert, in no apparent distress Head exam: Present: normocephalic Eye exam: Present: normal appearance Neck exam: Present: normal inspection Respiratory exam: Present: wheezes Cardiovascular Exam: Present: tachycardia GI/Abdominal exam: Present: soft. Absent: tenderness Extremities exam: Present: normal inspection Neurological exam: Present: alert Psychiatric exam: Present: normal affect, normal mood Skin exam: Present: normal color Course Vital Signs 04/13/22 04/13/22 04/13/22 19:03 19:19 19:30 Temperature 97.8 F Pulse Rate 115 H 110 H 116 H Respiratory 20 Rate Blood Pressure 146/89 O2 Sat by Pulse 96 Oximetry - Reevaluation(s) Reevaluation #1: 04/13/22 20:58 Patient has refused abdominal x-rays EKG Findings - EKG Results: EKG: interpreted by ERMD (Septal Q waves. Right axis. No acute ST change), sinus rhythm EKG shows: tachycardia Medical Decision Making - Medical Decision Making Patient reevaluated and updated. Patient still does not feel well. Case discussed with practitioner Easton Tamayo, covering for Dr. Trimble, who will admit for Dr. Sousa. cephid and BNP have been added. - Lab Data Result diagrams: 04/13/22 19:42 04/13/22 19:42 Lab Results 04/13/22 04/13/22 04/13/22 Range/Units 19:42 19:42 19:42 WBC 4.1 (3.8-10.6) k/uL RBC 3.29 L (3.80-5.40) m/uL Hgb 9.6 L D (11.4-16.0) gm/dL Hct 30.2 L (34.0-46.0) % MCV 91.9 (80.0-100.0) fL MCH 29.4 (25.0-35.0) pg MCHC 31.9 (31.0-37.0) g/dL RDW 15.7 H (11.5-15.5) % Plt Count 261 (150-450) k/uL MPV 8.7 Neutrophils % 73 % Lymphocytes % 15 % Monocytes % 8 % Eosinophils % 1 % Basophils % 1 % Neutrophils # 3.0 (1.3-7.7) k/uL Lymphocytes # 0.6 L (1.0-4.8) k/uL Monocytes # 0.3 (0-1.0) k/uL Eosinophils # 0.0 (0-0.7) k/uL Basophils # 0.0 (0-0.2) k/uL Hypochromasia Marked PT 11.6 (9.0-12.0) sec INR 1.1 (<1.2) APTT 26.1 (22.0-30.0) sec Sodium 140 (137-145) mmol/L Potassium 4.4 (3.5-5.1) mmol/L Chloride 105 (98-107) mmol/L Carbon Dioxide 27 (22-30) mmol/L Anion Gap 8 mmol/L BUN 37 H (7-17) mg/dL Creatinine 1.56 H (0.52-1.04) mg/dL Est GFR (CKD-EPI)AfAm 43 (>60 ml/min/1.73 sqM) Est GFR (CKD-EPI)NonAf 37 (>60 ml/min/1.73 sqM) Glucose 226 H (74-99) mg/dL Calcium 9.2 (8.4-10.2) mg/dL Total Bilirubin 0.5 (0.2-1.3) mg/dL AST 31 (14-36) U/L ALT 20 (4-34) U/L Alkaline Phosphatase 86 (38-126) U/L Total Protein 6.9 (6.3-8.2) g/dL Albumin 4.0 (3.5-5.0) g/dL Amylase 49 (30-110) U/L Lipase 196 (23-300) U/L - Radiology Data Interpreted by me: Chest x-ray does show improvement of previous pleural effusion. Cardiomegaly and increased interstitial changes are present. Disposition Clinical Impression: Nausea & vomiting, Weakness Disposition: ADMITTED IP TO THIS HOSP Is patient prescribed a controlled substance at d/c from ED?: No Referrals: Fela Alicea MD [Primary Care Provider] - 1-2 days Time of Disposition: 20:56
[2022-04-13 20:22] LABS: Basophils % (A) 1 %; Eosinophils % (A) 1 %; HCT 30.2 % (34.0-46.0); HGB 9.6 gm/dL (11.4-16.0); Hypochromasia Marked; Lymphocytes # (A) 0.6 k/uL (1.0-4.8); Lymphocytes % (A) 15 %; MCH 29.4 pg (25.0-35.0); MCHC 31.9 g/dL (31.0-37.0); MCV 91.9 fL (80.0-100.0); Mean Platelet Volume 8.7; Monocytes # (A) 0.3 k/uL (0-1.0); Monocytes % (A) 8 %; Neutrophils % (A) 73 %; Platelet Count 261 k/uL (150-450); RBC 3.29 m/uL (3.80-5.40); RDW 15.7 % (11.5-15.5); WBC 4.1 k/uL (3.8-10.6)
--- NOTE | 2022-04-13 20:24 | XR ---
EXAMINATION TYPE: XR chest 2V DATE OF EXAM: 04/13/2022 COMPARISON: 04/04/2022 HISTORY: Abdominal pain TECHNIQUE: 2 views FINDINGS: Heart appears enlarged. There is pulmonary interstitial and airspace edema. There is right pleural effusion. IMPRESSION: There is improvement in the large right pleural effusion compared to old exam. Cardiomega ly. Pulmonary edema that could be congestive heart failure or RDS.
[2022-04-13 20:30] LABS: INR 1.1 (<1.2); Partial Thromboplastin Time 26.1 sec (22.0-30.0); Prothrombin Time 11.6 sec (9.0-12.0)
[2022-04-13 20:49] LABS: Calcium 9.2 mg/dL (8.4-10.2); Potassium 4.4 mmol/L (3.5-5.1); Total Bilirubin 0.5 mg/dL (0.2-1.3); Total Protein 6.9 g/dL (6.3-8.2)
[2022-04-13] MEDS ORDERED: ONDANSETRON 4 MG/2 ML VIAL IVP PRN (20:56)
[2022-04-13] MEDS ORDERED: NALOXONE 0.4 MG/ML 1 ML VIAL IV PRN (20:56)
[2022-04-13] MEDS: PANTOPRAZOLE 40 MG/10 ML VIAL IV SCH (21:07)
[2022-04-13] MEDS: MORPHINE SULFATE 4 MG/ML SYRINGE IV PRN (21:07)
[2022-04-13] MEDS: SODIUM CHLORIDE 0.9% 1,000 ML IV SCH (23:44)
[2022-04-14] MEDS ORDERED: ALPRAZolam 0.25 MG TAB PO STA (00:07)
[2022-04-14 07:31] LABS: Glucose,Whole Blood 205 mg/dL (70-110)
[2022-04-14 08:09] LABS: Anisocytosis Slight; Basophils % (A) 1 %; Eosinophils % (A) 0 %; HCT 27.5 % (34.0-46.0); HGB 8.5 gm/dL (11.4-16.0); Hypochromasia Marked; Lymphocytes # (A) 0.6 k/uL (1.0-4.8); Lymphocytes % (A) 17 %; MCH 28.3 pg (25.0-35.0); MCHC 30.8 g/dL (31.0-37.0); Mean Platelet Volume 9.2; Monocytes # (A) 0.3 k/uL (0-1.0); Monocytes % (A) 10 %; Neutrophils # (A) 2.4 k/uL (1.3-7.7); Neutrophils % (A) 69 %; Platelet Count 245 k/uL (150-450); RBC 2.99 m/uL (3.80-5.40); RDW 16.2 % (11.5-15.5); WBC 3.4 k/uL (3.8-10.6)
[2022-04-14 08:24] LABS: Albumin 3.4 g/dL (3.5-5.0); Calcium 8.4 mg/dL (8.4-10.2); Potassium 4.1 mmol/L (3.5-5.1); Total Bilirubin 0.4 mg/dL (0.2-1.3)
[2022-04-14] MEDS: PANTOPRAZOLE 40 MG/10 ML VIAL IV SCH (10:33)
[2022-04-14] MEDS: SODIUM CHLORIDE 0.9% 1,000 ML IV SCH (10:35)
[2022-04-14] MEDS ORDERED: guaiFENesin SYRUP 100MG/5ML 200 MG/10 ML CUP PO PRN (10:39)
[2022-04-14 11:23] LABS: Glucose,Whole Blood 192 mg/dL (70-110)
[2022-04-14] MEDS: APIXABAN 5 MG TAB PO SCH ×2 (12:05→21:30)
[2022-04-14] MEDS ORDERED: FUROSEMIDE 10 MG/ML 4 ML VIAL IV STA (12:48)
[2022-04-14] MEDS ORDERED: SENNOSIDES-DOCUSATE SODIUM 1 EACH TAB PO PRN (12:48)
[2022-04-14] MEDS ORDERED: ALBUTEROL NEBULIZED 2.5 MG/3 ML INHALATION PRN ×2 (12:48)
[2022-04-14] MEDS ORDERED: ACETAMINOPHEN TAB 325 MG TAB PO PRN (12:48)
--- NOTE | 2022-04-14 12:54 | P.HPIM ---
History of Present Illness H&P Date: 04/14/22 This is a 56-year-old female who presented to the emergency department with increasing shortness of breath along with cough and congestion and reporting nausea and vomiting with some diarrhea that started a few days ago. Patient was recently admitted and discharged from here for anemia and concerns for DVT and is maintained on oral anticoagulation. Patient reports her primary care provider is Dr. Alicea but has yet to see him as she has been hospitalized over the last 2 months including going to rehab for recent left hip fracture. Patient with chronic anemia along with kidney disease and endometrial cancer and history of DVT hemoglobin is stable from previous. Patient reported to have jose de jesus e congestion and increasing shortness of breath and patient does have bronchial asthma which is chronic and wears 4 L outpatient chronically. Patient does report she uses inhalers and does have a nebulizer at home. Patient was found to be influenza positive. Patient is morbidly obese and extremely noncompliant with medication and follow-up and has progressively become more weak with all these previous hospitalizations in recent left hip fracture. On last admission patient was to return to [facility] although patient refused and went home with home care arrangements. Patient was admitted for nausea and vomiting and weakness. Oncology was on consult although unsure why as patient is to follow-up outpatient with radiation oncology along with oncology in the outpatient setting. Will consult infectious disease and also pulmonary and appreciate input and recommendations regarding her asthma and influenza. Patient did have some diarrhea and a C. diff test was ordered and patient is maintained on clear liquids due to her nausea and vomiting. Patient was started on IV hydration although given her history of heart failure and BNP of 6970 will hold on fluids for now. EKG showed sinus tachycardia with heart rate of 113, chest x-ray showed improvement in the large right pleural effusion compared to previous exam along with some cardiomegaly along with also pulmonary edema that could be c ongestive heart failure or RDS. Labs reviewed on exam show a WBC of 3.4, hemoglobin is 8.5, platelets are 245, sodium is 138, potassium 4.1, BUN 31, creatinine 1.51, influenza A positive, Covid, RSV negative, BNP was 6970. Review Of Systems: Constitutional: No fever, no chills, no night sweats. No weight change. Reports generalized weakness and fatigue with lethargy. Reports daytime sleepi ness. EENT: No headache. No blurred vision or double vision, no loss of vision. No loss of Hearing, no ringing in the ears, no dizziness. No nasal drainage or congestion. No epistaxis. No sore throat. Lungs: Reports worsening shortness of breath, continued dry hacking cough, no sputum production. No wheezing. Cardiovascular: No chest pain, no lower extremity edema. No palpitations. No paroxysmal nocturnal dyspnea. No orthopnea. No lightheadedness or dizziness. No syncopal episodes. Abdominal: Reports abdominal pain. Reports nausea, vomiting. Reports diarrhea. No constipation. No bloody or tarry stools.. Reports loss of appetite. Genitourinary: No dysuria, increased frequency, urgency. No urinary retention. Musculoskeletal: Reports generalized myalgias. No muscle weakness, no gait dysfunction, no frequent falls. No back pain. No neck pain. Integumentary: No wounds, no lesions. No rash or pruritus. No unusual bruising. No change in hair or nails. Neurologic: No aphasia. No facial droop. No change in mentation. No head injury. No headache. No paralysis. No paresthesia. Psychiatric: No depression. No anxiety. No mood swings. Endocrine: No abnormal blood sugars. No weight change. No excessive sweating or thirst. No cold intolerance. PHYSICAL EXAMINATION: GENERAL: The patient is alert and oriented x4, Well developed, well nourished. Morbidly obese HEENT: Pupils are round and equally reacting to light. EOMI. no scleral icterus. No conjunctival pallor. Normocephalic, atraumatic. No pharyngeal erythema. No thyromegaly. CARDIOVASCULAR: S1 and S2 muffled PULMONARY: diminished breath sounds bilaterally with some scattered rhonchi noted. ABDOMEN: soft. Mildly tender on exam. obese. non-distended, normoactive bowel sounds. No palpable organomegaly. MUSCULOSKELETAL: No joint swelling or deformity. EXTREMITIES: No cyanosis, clubbing, or pedal edema. Generalized edema noted throughout NEUROLOGICAL: Gross neurological examination did not reveal any focal deficits. Diffuse weakness SKIN: No rashes. Assessment: Nausea/vomiting/diarrhea, most likely gastritis secondary to acute influenza Acute influenza infection Chronic hypoxic respiratory failure due to severe bronchial asthma, maintained on 4 L outpatient History of lupus History of anxiety History of severe chronic bronchial asthma, acute exacerbation History of chronic kidney disease stage III History of heart failure with preserved EF, EF on 02/15/2022 is 55-60% Diabetes mellitus, type 2 insulin-dependent uncontrolled with hyperglycemia hypertension Recent diagnosis of DVT of the right subclavian vein and right axillary vein Recent left hip fracture with repair history of endometrial adenocarcinoma and will need follow-up outpatient, yet to receive treatment GI prophylaxis DVT prophylaxis: on eliquis Full code Plan: Recommend to continue with current medications and management and will consult pulmonary and infectious disease. Patient was diagnosed with influenza A and given patient's significant history of chronic kidney disease appreciate input recommendations from pulmonary and ID in regards to starting Tamiflu Home medications have been reviewed and resumed and will continue anticoagulant as well. Patient was started on gentle IV hydration in the ER and will discontinue and give 1 dose of Lasix and follow with repeat labs. Encouraged increased activity as tolerated and patient is maintained on her chronic 4 L via nasal cannula Oncology was consulted although unsure why by the ER as she was to follow-up with them and radiation oncology outpatient. Attempted mapping for radiation therapy although patient could not handle and reported to providers in all consultations that she wanted to hold on oncological care at this times that she could build up her strength and mobility to be able to handle treatment. Patient has been significantly weak and progressively getting worse since her left hip fracture on 2 admissions ago. Patient was initially scheduled to return to [facility] although patient refused and went home and subsequently returned here a few days later now found to be influenza A positive Patient having some diarrhea as well and C. diff testing is ordered and pending at this time Due to multiple complex medical issues, prognosis is guarded The impression and plan of care has been dictated by Fabienne Fortune, nurse practitioner as directed. Dr. Lior MD I have performed a history and examination and MDM of this patient, discussed the same with the dictator, and agree with the dictator's assessment and plan as written ,documented as a scribe. Based on total visit time, I have performed more than 50% of the visit. Any additional findings or plans will be noted. Past Medical History Past Medical History: Cancer, Diabetes Mellitus, Deep Vein Thrombosis (DVT), Hypertension, Renal Disease, Rheumatoid Arthritis (RA), Thyroid Disorder Additional Past Medical History / Comment(s): O2 @ 4L. SLE LUPUS. STAGE 3 KIDNEY DISEASE. Leukemia, GRAVES DZ , kidney stones, gout, Uterine cancer (recent diagnosis, no treatment yet) History of Any Multi-Drug Resistant Organisms: None Reported Past Surgical History: No Surgical Hx Reported Additional Past Surgical History / Comment(s): BILATERAL ARTHROSCOPY KNEES. D & C (MISCARRIAGES). Past Anesthesia/Blood Transfusion Reactions: No Reported Reaction Past Psychological History: Anxiety Smoking Status: Never smoker Past Alcohol Use History: None Reported Past Drug Use History: None Reported - Past Family History Mother Family Medical History: Congestive Heart Failure (CHF), Diabetes Mellitus Father Family Medical History: Congestive Heart Failure (CHF), Dialysis, Hypertension Medications and Allergies Home Medications Medication Instructions Recorded Confirmed Type FLUoxetine HCL [PROzac] 20 mg PO BID 01/09/17 04/13/22 History Montelukast [Singulair] 10 mg PO DAILY 01/09/17 04/13/22 History gemfibroziL [Lopid] 600 tab PO BID 01/09/17 04/13/22 History Albuterol Inhaler [Ventolin Hfa 2 puff INHALATION RT-Q4H PRN 01/14/17 04/13/22 History Inhaler] Albuterol Nebulized [Ventolin 2.5 mg INHALATION RT-QID PRN 01/14/17 04/13/22 History Nebulized] allopurinoL [Zyloprim] 100 mg PO BID 01/21/22 04/13/22 History Atorvastatin [Lipitor] 10 mg PO HS 02/15/22 04/13/22 History Ondansetron [Zofran] 4 mg PO Q12HR PRN 02/15/22 04/13/22 History Pantoprazole [Protonix] 40 mg PO BID 02/15/22 04/13/22 History Acetaminophen Tab [Tylenol] 650 mg PO Q6HR PRN tab 03/28/22 04/13/22 Rx Aspirin 81 mg PO BID tab 03/28/22 04/13/22 Rx Ferrous Sulfate [Iron (65 MG 325 mg PO DAILY #30 tab 03/28/22 04/13/22 Rx Elemental)] Primidone [Mysoline] 50 mg PO HS tab 03/28/22 04/13/22 Rx Sennosides-Docusate Sodium 2 tab PO HS PRN 04/02/22 04/13/22 History [Senokot-S] Apixaban [Eliquis] 5 mg PO BID 30 Days #60 tab 04/10/22 04/13/22 Rx Megestrol [Megace] 40 mg PO BID #60 tablet 04/10/22 04/13/22 Rx Midodrine [ProAmatine] 5 mg PO AC-TID 30 Days #90 tab 04/10/22 04/13/22 Rx Budesonide/Formoterol Fumarate 1 puff INHALATION RT-BID 04/13/22 04/13/22 History [Symbicort 160-4.5 Mcg Inhaler] Furosemide [Lasix] 60 mg PO DAILY 04/13/22 04/13/22 History Gabapentin 600 mg PO BID 04/13/22 04/13/22 History Hydroxychloroquine Sulfate 200 mg PO BID 04/13/22 04/13/22 History [Plaquenil] INSULIN ASPART (NovoLOG) [NovoLOG See Protocol SQ ACHS PRN MDD 04/13/22 04/13/22 History (formulary)] 10units Insulin Detemir (Levemir) [Levemir] 35 unit SQ DIRECTED 04/13/22 04/13/22 History Metoprolol Succinate (ER) [Toprol 25 mg PO DAILY 04/13/22 04/13/22 History XL] Metoprolol Succinate (ER) [Toprol 50 mg PO DAILY 04/13/22 04/13/22 History Xl] hydrOXYzine HCL [Atarax] 25 mg PO QID 04/13/22 04/13/22 History Allergies Allergy/AdvReac Type Severity Reaction Status Date / Time ciprofloxacin [From Cipro] Allergy Swelling Verified 04/13/22 22:27 diphenhydramine Allergy Swelling Verified 04/13/22 22:27 [From Benadryl] iodine Allergy Swelling Verified 04/13/22 22:27 propoxyphene Allergy Swelling Verified 04/13/22 22:27 [From Darvocet-N] red dye Allergy Swelling Verified 04/13/22 22:27 sulfacetamide Allergy Swelling Verified 04/13/22 22:27 [From Sulfamide] yellow dye Allergy Swelling Verified 04/13/22 22:27 FLU VACCINE? Allergy Unknown Uncoded 04/02/22 15:17 Physical Exam Vitals: Vital Signs Temp Pulse Pulse Pulse Resp BP BP 04/14/22 07:30 98.4 F 114 H 20 139/75 04/14/22 02:48 117 H 16 01/01/23 02:26 98.7 F 117 H 16 137/74 04/13/22 22:48 98.2 F 109 H 18 04/13/22 21:33 96 20 141/62 04/13/22 19:30 116 H 04/13/22 19:19 110 H 04/13/22 19:03 97.8 F 115 H 20 146/89 Pulse Ox 04/14/22 07:30 99 04/14/22 02:48 04/14/22 02:26 92 L 04/13/22 22:48 95 04/13/22 21:33 95 04/13/22 19:30 04/13/22 19:19 04/13/22 19:03 96 Intake and Output 04/13/22 04/14/22 04/14/22 22:59 06:59 14:59 Output Total 300 Balance -300 Output: Urine 300 Other: Voiding Method External Catheter Weight 95.254 kg Results CBC & Chem 7: 04/14/22 07:47 04/14/22 07:47 Labs: Abnormal Lab Results - Last 24 Hours (Table) 04/13/22 04/13/22 04/13/22 Range/Units 19:42 19:42 19:42 WBC (3.8-10.6) k/uL RBC 3.29 L (3.80-5.40) m/uL Hgb 9.6 L D (11.4-16.0) gm/dL Hct 30.2 L (34.0-46.0) % MCHC (31.0-37.0) g/dL RDW 15.7 H (11.5-15.5) % Lymphocytes # 0.6 L (1.0-4.8) k/uL BUN 37 H (7-17) mg/dL Creatinine 1.56 H (0.52-1.04) mg/dL Glucose 226 H (74-99) mg/dL POC Glucose (mg/dL) (70-110) mg/dL AST (14-36) U/L Total Protein (6.3-8.2) g/dL Albumin (3.5-5.0) g/dL Influenza Type A (PCR) Detected A (Not Detectd) 04/14/22 04/14/22 04/14/22 Range/Units 07:28 07:47 07:47 WBC 3.4 L (3.8-10.6) k/uL RBC 2.99 L (3.80-5.40) m/uL Hgb 8.5 L (11.4-16.0) gm/dL Hct 27.5 L (34.0-46.0) % MCHC 30.8 L (31.0-37.0) g/dL RDW 16.2 H (11.5-15.5) % Lymphocytes # 0.6 L (1.0-4.8) k/uL BUN 31 H (7-17) mg/dL Creatinine 1.51 H (0.52-1.04) mg/dL Glucose 196 H (74-99) mg/dL POC Glucose (mg/dL) 205 H (70-110) mg/dL AST 38 H (14-36) U/L Total Protein 6.0 L (6.3-8.2) g/dL Albumin 3.4 L (3.5-5.0) g/dL Influenza Type A (PCR) (Not Detectd) Thrombosis Risk Factor Assmnt - DVT/VTE Prophylaxis DVT/VTE Prophylaxis: Pharmacologic Prophylaxis ordered - Choose All That Apply Each Factor Represents 1 point: Abnormal pulmonary function (COPD), Age 41-60 years, Obesity (BMI >25) Thrombosis Risk Factor Assessment Total Risk Factor Score: 3 Thrombosis Risk Factor Assessment Level: Moderate Risk Assessment and Plan Time with Patient: Greater than 30
[2022-04-14] MEDS ORDERED: ACETAMINOPHEN TAB 500 MG TAB PO PRN (13:01)
[2022-04-14] MEDS: METOPROLOL SUCCINATE (ER) 25 MG TAB.ER.24H PO SCH (13:13)
[2022-04-14] MEDS: GABAPENTIN 300 MG CAP PO SCH ×2 (13:13→21:30)
[2022-04-14] MEDS: BENZONATATE 100 MG CAP PO PRN (13:14)
[2022-04-14] MEDS: FLUoxetine HCL 20 MG CAP PO SCH ×2 (13:14→21:30)
--- NOTE | 2022-04-14 13:24 | P.CNPUL ---
History of Present Illness Consult date: 04/14/22 Requesting physician: Oren Cunningham Reason for consult: dyspnea, asthma Chief complaint: Shortness of breath, cough congestion History of present illness: This is a 56-year-old female patient who has a history of diastolic congestive heart failure, diabetes mellitus type 2, hypertension, rheumatoid arthritis, chronic kidney disease, uterine cancer awaiting treatment, anxiety/depression, severe chronic bronchial asthma follows with Dr. Jarquin in our office for the same. She had recently been admitted for a left hip fracture and again more recently readmitted for right superficial venous thrombosis of the right cephalic and basilic veins. She initially been treated with heparin which was subsequent discontinued due to hematuria then ended up being on Eliquis. She was just discharged home from here on 04/10/2022. She represented here to the emergency room yesterday 04/13/2022 with complaints of increasing shortness of breath, cough congestion, nausea and vomiting. White count 2.4. Hemoglobin 8.5. Platelets 245. Sodium 138. Potassium 4.1. BUN 31. Creatinine 1.56. Glucose 196. ProBNP 6970. She was found to be influenza A positive. Ramirez virus negative. RSV negative. Chest x-ray showed improvement and a previous right pleural effusion. There is cardiomegaly. Pulmonary edema could suggest congestive heart failure or respiratory distress syndrome. She has been initiated on DuoNeb inhalations, Symbicort, Tessalon Perles. She is anticoagulated with Eliquis. She is seen today in consultation on the regular medical floor. She is currently laying flat in bed. Awake and alert in no acute distress. She is audibly wheezing. She has a loose nonproductive cough. She is maintaining O2 saturation in the 90s on 4 L/m per nasal cannula. She has not received a flu vaccine due to ALLERGIES. She has normal saline at 75 ML's per hour. She received IV Lasix 80 mg 1. Review of Systems REVIEW OF SYSTEMS: CONSTITUTIONAL: Denies any recent significant weight loss or weight gain. EYES: Denies change in vision. EARS, NOSE, MOUTH, THROAT: Denies headaches, denies sore throat. CARDIOVASCULAR: Denies chest pain, palpitations or syncopal episodes. RESPIRATORY: Positive for shortness of breath, cough, congestion no hemoptysis. GASTROINTESTINAL: Positive for nausea, vomiting GENITOURINARY: Denies hematuria, denies infections. MUSKULOSKELETAL: Denies pain, denies swelling. INTEGUMENTARY: Denies rash, denies eczema. NEUROLOGICAL: Denies recent memory loss, no recent seizure activity. PSYCHIATRIC: Denies anxiety, denies depression. HEMATOLOGIC/LYMPHATIC: Denies anemia, denies enlarged lymph nodes. Past Medical History Past Medical History: Cancer, Diabetes Mellitus, Deep Vein Thrombosis (DVT), Hypertension, Renal Disease, Rheumatoid Arthritis (RA), Thyroid Disorder Additional Past Medical History / Comment(s): O2 @ 4L. SLE LUPUS. STAGE 3 KIDNEY DISEASE. Leukemia, GRAVES DZ , kidney stones, gout, Uterine cancer (recent diagnosis, no treatment yet) History of Any Multi-Drug Resistant Organisms: None Reported Past Surgical History: No Surgical Hx Reported Additional Past Surgical History / Comment(s): BILATERAL ARTHROSCOPY KNEES. D & C (MISCARRIAGES). Past Anesthesia/Blood Transfusion Reactions: No Reported Reaction Past Psychological History: Anxiety Smoking Status: Never smoker Past Alcohol Use History: None Reported Past Drug Use History: None Reported - Past Family History Mother Family Medical History: Congestive Heart Failure (CHF), Diabetes Mellitus Father Family Medical History: Congestive Heart Failure (CHF), Dialysis, Hypertension Medications and Allergies Home Medications Medication Instructions Recorded Confirmed Type FLUoxetine HCL [PROzac] 20 mg PO BID 01/09/17 04/13/22 History Montelukast [Singulair] 10 mg PO DAILY 01/09/17 04/13/22 History gemfibroziL [Lopid] 600 tab PO BID 01/09/17 04/13/22 History Albuterol Inhaler [Ventolin Hfa 2 puff INHALATION RT-Q4H PRN 01/14/17 04/13/22 History Inhaler] Albuterol Nebulized [Ventolin 2.5 mg INHALATION RT-QID PRN 01/14/17 04/13/22 History Nebulized] allopurinoL [Zyloprim] 100 mg PO BID 01/21/22 04/13/22 History Atorvastatin [Lipitor] 10 mg PO HS 02/15/22 04/13/22 History Ondansetron [Zofran] 4 mg PO Q12HR PRN 02/15/22 04/13/22 History Pantoprazole [Protonix] 40 mg PO BID 02/15/22 04/13/22 History Acetaminophen Tab [Tylenol] 650 mg PO Q6HR PRN tab 03/28/22 04/13/22 Rx Aspirin 81 mg PO BID tab 03/28/22 04/13/22 Rx Ferrous Sulfate [Iron (65 MG 325 mg PO DAILY #30 tab 03/28/22 04/13/22 Rx Elemental)] Primidone [Mysoline] 50 mg PO HS tab 03/28/22 04/13/22 Rx Sennosides-Docusate Sodium 2 tab PO HS PRN 04/02/22 04/13/22 History [Senokot-S] Apixaban [Eliquis] 5 mg PO BID 30 Days #60 tab 04/10/22 04/13/22 Rx Megestrol [Megace] 40 mg PO BID #60 tablet 04/10/22 04/13/22 Rx Midodrine [ProAmatine] 5 mg PO AC-TID 30 Days #90 tab 04/10/22 04/13/22 Rx Budesonide/Formoterol Fumarate 1 puff INHALATION RT-BID 04/13/22 04/13/22 History [Symbicort 160-4.5 Mcg Inhaler] Furosemide [Lasix] 60 mg PO DAILY 04/13/22 04/13/22 History Gabapentin 600 mg PO BID 04/13/22 04/13/22 History Hydroxychloroquine Sulfate 200 mg PO BID 04/13/22 04/13/22 History [Plaquenil] INSULIN ASPART (NovoLOG) [NovoLOG See Protocol SQ ACHS PRN MDD 04/13/22 04/13/22 History (formulary)] 10units Insulin Detemir (Levemir) [Levemir] 35 unit SQ DIRECTED 04/13/22 04/13/22 History Metoprolol Succinate (ER) [Toprol 25 mg PO DAILY 04/13/22 04/13/22 History XL] Metoprolol Succinate (ER) [Toprol 50 mg PO DAILY 04/13/22 04/13/22 History Xl] hydrOXYzine HCL [Atarax] 25 mg PO QID 04/13/22 04/13/22 History Allergies Allergy/AdvReac Type Severity Reaction Status Date / Time ciprofloxacin [From Cipro] Allergy Swelling Verified 04/13/22 22:27 diphenhydramine Allergy Swelling Verified 04/13/22 22:27 [From Benadryl] iodine Allergy Swelling Verified 04/13/22 22:27 propoxyphene Allergy Swelling Verified 04/13/22 22:27 [From Darvocet-N] red dye Allergy Swelling Verified 04/13/22 22:27 sulfacetamide Allergy Swelling Verified 04/13/22 22:27 [From Sulfamide] yellow dye Allergy Swelling Verified 04/13/22 22:27 FLU VACCINE? Allergy Unknown Uncoded 04/02/22 15:17 Physical Exam Vitals: Vital Signs Temp Pulse Pulse Pulse Resp BP BP 04/14/22 07:30 98.4 F 114 H 20 139/75 04/14/22 02:48 117 H 16 04/14/22 02:26 98.7 F 117 H 16 137/74 04/13/22 22:48 98.2 F 109 H 18 04/13/22 21:33 96 20 141/62 04/13/22 19:30 116 H 04/13/22 19:19 110 H 04/13/22 19:03 97.8 F 115 H 20 146/89 Pulse Ox 04/14/22 07:30 99 04/14/22 02:48 04/14/22 02:26 92 L 04/13/22 22:48 95 04/13/22 21:33 95 04/13/22 19:30 04/13/22 19:19 04/13/22 19:03 96 Intake and Output 04/13/22 04/14/22 04/14/22 22:59 06:59 14:59 Output Total 300 550 Balance -300 -550 Output: Urine 300 550 Other: Voiding Method External Catheter External Catheter Weight 95.254 kg GENERAL EXAM: Alert, pleasant 56-year-old female, 4 L nasal cannula, fairly comfortable in no apparent distress. HEAD: Normocephalic. EYES: Normal reaction of pupils, equal size. NOSE: Clear with pink turbinates. THROAT: No erythema or exudates. NECK: No masses, no JVD. CHEST: No chest wall deformity. LUNGS: Equal air entry with bilateral end expiratory wheeze, scattered rhonchi, crackles. CVS: S1 and S2 normal with no audible murmur, regular rhythm. ABDOMEN: No hepatosplenomegaly, normal bowel sounds, no guarding or rigidity. SPINE: No scoliosis or deformity SKIN: No rashes CENTRAL NERVOUS SYSTEM: No focal deficits, tone is normal in all 4 extremities. EXTREMITIES: There is 1+ peripheral edema. No clubbing, no cyanosis. Peripheral pulses are intact. Results - Laboratory Findings CBC and BMP: 04/14/22 07:47 04/14/22 07:47 PT/INR, D-dimer PT 11.6 sec (9.0-12.0) 04/13/22 19:42 INR 1.1 (<1.2) 04/13/22 19:42 Abnormal lab findings: Abnormal Labs 04/13/22 04/13/22 04/13/22 19:42 19:42 19:42 WBC RBC 3.29 L Hgb 9.6 L D Hct 30.2 L MCHC RDW 15.7 H Lymphocytes # 0.6 L BUN 37 H Creatinine 1.56 H Glucose 226 H POC Glucose (mg/dL) AST Total Protein Albumin Influenza Type A (PCR) Detected A 04/14/22 04/14/22 04/14/22 07:28 07:47 07:47 WBC 3.4 L RBC 2.99 L Hgb 8.5 L Hct 27.5 L MCHC 30.8 L RDW 16.2 H Lymphocytes # 0.6 L BUN 31 H Creatinine 1.51 H Glucose 196 H POC Glucose (mg/dL) 205 H AST 38 H Total Protein 6.0 L Albumin 3.4 L Influenza Type A (PCR) 04/14/22 11:19 WBC RBC Hgb Hct MCHC RDW Lymphocytes # BUN Creatinine Glucose POC Glucose (mg/dL) 192 H AST Total Protein Albumin Influenza Type A (PCR) - Diagnostic Findings Chest x-ray: image reviewed Assessment and Plan Assessment: Acute influenza A infection Acute exacerbation of severe chronic persistent bronchial asthma secondary to above Acute exacerbation of chronic diastolic heart failure with preserved ejection fraction Recent admission for a right superficial venous thrombosis of the right cephalic and basilic veins. Discharged home 04/10/2022 on Eliquis Chronic anemia. Current hemoglobin 8.5 Uterine cancer, awaiting treatment. Left hip fracture, status post repair 03/18/2022 Chronic kidney disease stage III Morbid obesity Diabetes mellitus type 2 insulin-dependent Primary hypertension Rheumatoid arthritis Poor functional performance based on the above-mentioned multiple comorbidities Plan: The patient was seen and evaluated Chest x-ray, labs and medications reviewed Received Lasix 40 mg IVP 1 Add Tamiflu Continue DuoNeb inhalations, Symbicort, Singulair Add prednisone 30 mg daily Remains on Tessalon Perles Remains on Eliquis Titrate the FiO2 as tolerated We will continue to follow and make further recommendations based on her clinical status I have personally seen and examined the patient, performed the documentation and the assessment and plan as written. Number of minutes spent on the visit: 20.
[2022-04-14] MEDS: OSELTAMIVIR 60 MG/10 ML ORAL SYRINGE PO SCH ×2 (14:32→21:56)
[2022-04-14] MEDS: predniSONE 10 MG TAB PO SCH (14:40)
[2022-04-14] MEDS: IPRATROPIUM-ALBUTEROL 3 ML NEB INHALATION SCH ×4 (15:21→23:30)
--- NOTE | 2022-04-14 15:28 | P.CONS ---
History of Present Illness - Reason for Consult Consult date: 04/14/22 History of endometrioid adenocarcinoma along with DVT - Chief Complaint Weakness - History of Present Illness Ms. gallegos is a 56-year-old woman with a past medical history significant for recently diagnosed endometrioid well-differentiated FIGO 1 adenocarcinoma (clinically stage I) and recent nonocclusive DVT of the right internal jugular, subclavian, and axillary veins who presents with progressive weakness. She was recently admitted for DVT of the right internal jugular, subclavian, and axil beth veins for which she was placed on Eliquis 5 mg twice daily. In addition, she was started on Megace 40 mg twice daily for treatment of her endometrial adenocarcinoma as she is been deemed not to be a candidate for surgery due to multiple medical comorbidities and delay in initiating radiation therapy due to multiple admissions over the past month for issues including UTI and left femur fracture requiring ORIF with IM nail placement. She was discharged on 04/10/2022 on therapeutic Eliquis and Megace 40 mg twice daily. Shortly after arriving home, she began to develop increased weakness, fatigue, myalgias, rhinorrhea, and cough. She has been having increased wheezing with shortness of breath during this time. In addition, she has developed nausea with few episodes of nonbilious nonbloody emesis. Given the signs and symptoms, she presented to the ED for additional management and monitoring. On presentation, she was afebrile, but was noted to be tachycardic to the 110s and was initially placed on 12 L nasal cannula, which was quickly titrated down to 4 to 5 L nasal cannula. CBC noted white blood cell count 3.4 (absolute lymphocyte count 0.6, absolute neutrophil count 2.4), hemoglobin 8.5, platelet count 245. CMP noted creatinine 1.51, which was improved from prior measurement on discharge. She was noted to be positive for Influenza A. Chest x-ray did not note consolidation concerning for pneumonia, but did note cardiomegaly with pulmonary interstitial edema. She was given 1 L bolus normal saline, Zofran 4 mg IV, famotidine and admitted to internal medicine for additional management. She was then placed on normal saline 75 cc/h. She currently notes persistent cough with wheezing. She continues to have myalgia and persistent fatigue. With regards to her diarrhea, she notes this is more loose stool than watery and was having 4-5 episodes prior to presentation. Review of Systems 14 point review of systems was conducted with pertinent positives negatives noted per HPI Past Medical History Past Medical History: Cancer, Diabetes Mellitus, Deep Vein Thrombosis (DVT), Hypertension, Renal Disease, Rheumatoid Arthritis (RA), Thyroid Disorder Additional Past Medical History / Comment(s): O2 @ 4L. SLE LUPUS. STAGE 3 KIDNEY DISEASE. Leukemia, GRAVES DZ , kidney stones, gout, Uterine cancer (recent diagnosis, no treatment yet) History of Any Multi-Drug Resistant Organisms: None Reported Past Surgical History: No Surgical Hx Reported Additional Past Surgical History / Comment(s): BILATERAL ARTHROSCOPY KNEES. D & C (MISCARRIAGES). Past Anesthesia/Blood Transfusion Reactions: No Reported Reaction Past Psychological History: Anxiety Smoking Status: Never smoker Past Alcohol Use History: None Reported Past Drug Use History: None Reported - Past Family History Mother Family Medical History: Congestive Heart Failure (CHF), Diabetes Mellitus Father Family Medical History: Congestive Heart Failure (CHF), Dialysis, Hypertension Medications and Allergies Home Medications Medication Instructions Recorded Confirmed Type FLUoxetine HCL [PROzac] 20 mg PO BID 01/09/17 04/13/22 History Montelukast [Singulair] 10 mg PO DAILY 01/09/17 04/13/22 History gemfibroziL [Lopid] 600 tab PO BID 01/09/17 04/13/22 History Albuterol Inhaler [Ventolin Hfa 2 puff INHALATION RT-Q4H PRN 01/14/17 04/13/22 History Inhaler] Albuterol Nebulized [Ventolin 2.5 mg INHALATION RT-QID PRN 01/14/17 04/13/22 History Nebulized] allopurinoL [Zyloprim] 100 mg PO BID 01/21/22 04/13/22 History Atorvastatin [Lipitor] 10 mg PO HS 02/15/22 04/13/22 History Ondansetron [Zofran] 4 mg PO Q12HR PRN 02/15/22 04/13/22 History Pantoprazole [Protonix] 40 mg PO BID 02/15/22 04/13/22 History Acetaminophen Tab [Tylenol] 650 mg PO Q6HR PRN tab 03/28/22 04/13/22 Rx Aspirin 81 mg PO BID tab 03/28/22 04/13/22 Rx Ferrous Sulfate [Iron (65 MG 325 mg PO DAILY #30 tab 03/28/22 04/13/22 Rx Elemental)] Primidone [Mysoline] 50 mg PO HS tab 03/28/22 04/13/22 Rx Sennosides-Docusate Sodium 2 tab PO HS PRN 04/02/22 04/13/22 History [Senokot-S] Apixaban [Eliquis] 5 mg PO BID 30 Days #60 tab 04/10/22 04/13/22 Rx Megestrol [Megace] 40 mg PO BID #60 tablet 04/10/22 04/13/22 Rx Midodrine [ProAmatine] 5 mg PO AC-TID 30 Days #90 tab 04/10/22 04/13/22 Rx Budesonide/Formoterol Fumarate 1 puff INHALATION RT-BID 04/13/22 04/13/22 History [Symbicort 160-4.5 Mcg Inhaler] Furosemide [Lasix] 60 mg PO DAILY 04/13/22 04/13/22 History Gabapentin 600 mg PO BID 04/13/22 04/13/22 History Hydroxychloroquine Sulfate 200 mg PO BID 04/13/22 04/13/22 History [Plaquenil] INSULIN ASPART (NovoLOG) [NovoLOG See Protocol SQ ACHS PRN MDD 04/13/22 04/13/22 History (formulary)] 10units Insulin Detemir (Levemir) [Levemir] 35 unit SQ DIRECTED 04/13/22 04/13/22 History Metoprolol Succinate (ER) [Toprol 25 mg PO DAILY 04/13/22 04/13/22 History XL] Metoprolol Succinate (ER) [Toprol 50 mg PO DAILY 04/13/22 04/13/22 History Xl] hydrOXYzine HCL [Atarax] 25 mg PO QID 04/13/22 04/13/22 History Allergies Allergy/AdvReac Type Severity Reaction Status Date / Time ciprofloxacin [From Cipro] Allergy Swelling Verified 04/13/22 22:27 diphenhydramine Allergy Swelling Verified 04/13/22 22:27 [From Benadryl] iodine Allergy Swelling Verified 04/13/22 22:27 propoxyphene Allergy Swelling Verified 04/13/22 22:27 [From Darvocet-N] red dye Allergy Swelling Verified 04/13/22 22:27 sulfacetamide Allergy Swelling Verified 04/13/22 22:27 [From Sulfamide] yellow dye Allergy Swelling Verified 04/13/22 22:27 FLU VACCINE? Allergy Unknown Uncoded 04/02/22 15:17 Physical Exam Vitals: Vital Signs Temp Pulse Pulse Pulse Resp BP BP 04/14/22 14:41 159/79 04/14/22 14:08 97.9 F 106 H 20 156/94 04/14/22 07:30 98.4 F 114 H 20 139/75 04/14/22 02:48 117 H 16 04/14/22 02:26 98.7 F 117 H 16 137/74 04/13/22 22:48 98.2 F 109 H 18 04/13/22 21:33 96 20 141/62 04/13/22 19:30 116 H 04/13/22 19:19 110 H 04/13/22 19:03 97.8 F 115 H 20 146/89 Pulse Ox 04/14/22 14:41 04/14/22 14:08 95 04/14/22 07:30 99 04/14/22 02:48 04/14/22 02:26 92 L 04/13/22 22:48 95 04/13/22 21:33 95 04/13/22 19:30 04/13/22 19:19 04/13/22 19:03 96 Intake and Output 04/14/22 04/14/22 04/14/22 06:59 14:59 22:59 Output Total 300 550 Balance -300 -550 Output: Urine 300 550 Other: Voiding Method External Catheter External Catheter - Constitutional lying on her side with generalized malaise General appearance: cooperative, mild distress - Respiratory Respiratory: bilateral: rhonchi, wheezing - Cardiovascular Rhythm: regular - Gastrointestinal General gastrointestinal: no distended, normal bowel sounds, soft, no tenderness - Integumentary Integumentary: pale, no rash - Neurologic Neurologic: CNII-XII intact - Musculoskeletal Musculoskeletal: generalized weakness Results CBC & Chem 7: 04/14/22 07:47 04/14/22 07:47 Labs: Abnormal Lab Results - Last 24 Hours (Table) 04/13/22 04/13/22 04/13/22 Range/Units 19:42 19:42 19:42 WBC (3.8-10.6) k/uL RBC 3.29 L (3.80-5.40) m/uL Hgb 9.6 L D (11.4-16.0) gm/dL Hct 30.2 L (34.0-46.0) % MCHC (31.0-37.0) g/dL RDW 15.7 H (11.5-15.5) % Lymphocytes # 0.6 L (1.0-4.8) k/uL BUN 37 H (7-17) mg/dL Creatinine 1.56 H (0.52-1.04) mg/dL Glucose 226 H (74-99) mg/dL POC Glucose (mg/dL) (70-110) mg/dL AST (14-36) U/L Total Protein (6.3-8.2) g/dL Albumin (3.5-5.0) g/dL Influenza Type A (PCR) Detected A (Not Detectd) 04/14/22 04/14/22 04/14/22 Range/Units 07:28 07:47 07:47 WBC 3.4 L (3.8-10.6) k/uL RBC 2.99 L (3.80-5.40) m/uL Hgb 8.5 L (11.4-16.0) gm/dL Hct 27.5 L (34.0-46.0) % MCHC 30.8 L (31.0-37.0) g/dL RDW 16.2 H (11.5-15.5) % Lymphocytes # 0.6 L (1.0-4.8) k/uL BUN 31 H (7-17) mg/dL Creatinine 1.51 H (0.52-1.04) mg/dL Glucose 196 H (74-99) mg/dL POC Glucose (mg/dL) 205 H (70-110) mg/dL AST 38 H (14-36) U/L Total Protein 6.0 L (6.3-8.2) g/dL Albumin 3.4 L (3.5-5.0) g/dL Influenza Type A (PCR) (Not Detectd) 04/14/22 Range/Units 11:19 WBC (3.8-10.6) k/uL RBC (3.80-5.40) m/uL Hgb (11.4-16.0) gm/dL Hct (34.0-46.0) % MCHC (31.0-37.0) g/dL RDW (11.5-15.5) % Lymphocytes # (1.0-4.8) k/uL BUN (7-17) mg/dL Creatinine (0.52-1.04) mg/dL Glucose (74-99) mg/dL POC Glucose (mg/dL) 192 H (70-110) mg/dL AST (14-36) U/L Total Protein (6.3-8.2) g/dL Albumin (3.5-5.0) g/dL Influenza Type A (PCR) (Not Detectd) Chest x-ray: report reviewed, image reviewed Assessment and Plan Assessment: Ms. gallegos is a 56-year-old woman with a past medical history significant for clinical stage I endometrioid well-differentiated FIGO 1 adenocarcinoma along with DVT of the right internal jugular, subclavian, and axillary veins who presents with generalized malaise, myalgias, rhinorrhea, nausea, and vomiting who was found to be positive for influenza A. (1) Adenocarcinoma of endometrium, stage 1 Current Visit: Yes Status: Acute Code(s): C54.1 - MALIGNANT NEOPLASM OF ENDOMETRIUM SNOMED Code(s): 987955766 (2) Influenza A Current Visit: Yes Status: Acute Code(s): J10.1 - FLU DUE TO OTH IDENT INFLUENZA VIRUS W OTH RESP MANIFEST SNOMED Code(s): 573048459 (3) DVT of axillary vein, acute right Current Visit: No Status: Acute Priority: High Code(s): I82.A11 - ACUTE EMBOLISM AND THROMBOSIS OF RIGHT AXILLARY VEIN SNOMED Code(s): 506841961262681 Plan: #Influenza A -Noted to have progressive malaise, myalgias, rhinorrhea, nausea, and vomiting after discharge on 04/10/2022 -She has been unable to tolerate solid diet on prior to admission -Chest x-ray reveals no consolidation concerning for pneumonia -Given her persistent wheezing on my exam, DuoNebs every 4 hours was ordered -Tamiflu and prednisone were recommended per pulmonology, appreciate their assistance -Continue IV fluids #DVT of the right internal jugular, subclavian, and axillary veins -Noted prior to her previous admission while at [facility] -She was started on Eliquis 5 mg twice daily on discharge -Given her current infection, she would be at high risk for developing recurrent DVT -Eliquis 5 mg twice daily was restarted #Endometrioid adenocarcinoma -Noted to be well differentiated FIGO score 1 on biopsy in January 2022 -Staging CT scans revealed no evidence of metastatic disease in February 2022 -Clinically, she appears to have localized disease, either stage I or stage II -She was previously evaluated by gynecologic oncology and due to her multiple medical comorbidities, she was deemed not to be a candidate for surgical intervention -Plan has been for radiation therapy, but has had multiple admissions over the past 1 to 2 months precluding her to establish with radiation oncology outpatient -Dr. Bradford of radiation oncology did suggest pelvic MRI for further evaluation on her last admission, which was originally scheduled for outpatient -In addition, her case was discussed with Dr. Colmenares of gynecologic oncology, who recommended initiating Megace 40 mg twice daily -Given her current infection and the fact that Megace can cause GI upset, we will hold on starting Megace at this time -She should follow-up with radiation oncology outpatient to initiate radiation treatment. She may need pelvic MRI prior to this, which can be obtained outpatient
[2022-04-14 17:14] LABS: Glucose,Whole Blood 212 mg/dL (70-110)
[2022-04-14] MEDS: MIDODRINE 5 MG TAB PO SCH (17:22)
[2022-04-14] MEDS ORDERED: DEXTROSE 50% SYRINGE 50 ML IVP PRN ×2 (17:24)
[2022-04-14] MEDS: INSULIN ASPART (NovoLOG) 100 UNIT/ML VIAL SQ SCH ×2 (17:57→21:30)
[2022-04-14] MEDS: SYMBICORT 160-4.5 MCG INHALER INHALATION SCH (19:01)
[2022-04-14 20:22] LABS: Glucose,Whole Blood 216 mg/dL (70-110)
[2022-04-14] MEDS: MEGESTROL 40 MG TAB PO SCH (21:30)
[2022-04-14] MEDS: PRIMIDONE 50 MG TAB PO SCH (21:30)
[2022-04-14] MEDS: PANTOPRAZOLE 40 MG TABLET PO SCH (21:30)
[2022-04-14] MEDS: FENOFIBRATE 160 MG TAB PO SCH (21:30)
[2022-04-14] MEDS: MORPHINE SULFATE 4 MG/ML SYRINGE IV PRN (21:30)
[2022-04-14] MEDS: allopurinoL 100 MG TAB PO SCH (21:30)
[2022-04-14] MEDS: ATORVASTATIN 10 MG TAB PO SCH (21:30)
[2022-04-15] MEDS: MORPHINE SULFATE 4 MG/ML SYRINGE IV PRN ×3 (01:32→17:48)
[2022-04-15] MEDS: BENZONATATE 100 MG CAP PO PRN ×2 (01:36→20:48)
[2022-04-15] MEDS: IPRATROPIUM-ALBUTEROL 3 ML NEB INHALATION SCH ×5 (03:31→20:27)
[2022-04-15] MEDS: SYMBICORT 160-4.5 MCG INHALER INHALATION SCH ×2 (07:13→20:27)
[2022-04-15 07:22] LABS: Glucose,Whole Blood 178 mg/dL (70-110)
[2022-04-15] MEDS: INSULIN DETEMIR (LEVEMIR) 100 UNIT/ML SYR SQ SCH (08:25)
[2022-04-15] MEDS: OSELTAMIVIR 60 MG/10 ML ORAL SYRINGE PO SCH ×2 (08:25→21:30)
[2022-04-15] MEDS: INSULIN ASPART (NovoLOG) 100 UNIT/ML VIAL SQ SCH ×4 (08:26→20:49)
[2022-04-15] MEDS: PANTOPRAZOLE 40 MG TABLET PO SCH ×2 (08:27→20:48)
[2022-04-15] MEDS: allopurinoL 100 MG TAB PO SCH ×2 (08:27→20:48)
[2022-04-15] MEDS: MONTELUKAST 10 MG TAB PO SCH (08:27)
[2022-04-15] MEDS: GABAPENTIN 300 MG CAP PO SCH ×2 (08:27→20:48)
[2022-04-15] MEDS: FLUoxetine HCL 20 MG CAP PO SCH ×2 (08:27→20:48)
[2022-04-15] MEDS: APIXABAN 5 MG TAB PO SCH ×2 (08:27→20:48)
[2022-04-15] MEDS: predniSONE 10 MG TAB PO SCH (08:27)
[2022-04-15] MEDS: FERROUS SULFATE 325 MG TAB PO SCH (08:27)
[2022-04-15] MEDS: MEGESTROL 40 MG TAB PO SCH ×2 (08:28→20:48)
[2022-04-15] MEDS: METOPROLOL SUCCINATE (ER) 50 MG TAB.ER.24H PO SCH (08:28)
[2022-04-15] MEDS: MIDODRINE 5 MG TAB PO SCH ×3 (08:29→17:48)
[2022-04-15 09:36] LABS: African American GFR (CKD) 41.6 (60.0-200.0); Anion Gap 11.5 mmol/L (10.00-18.00); BUN/Creat Ratio 16.63 Ratio (12.00-20.00); Blood Urea Nitrogen 26.6 mg/dL (9.0-27.0); Calcium 8.9 mg/dL (8.7-10.3); Carbon Dioxide 26.5 mmol/L (20.0-27.5); Non-African American GFR(CKD) 35.9 (60.0-200.0); Potassium 4.4 mmol/L (3.5-5.5)
--- NOTE | 2022-04-15 10:09 | P.CONS ---
History of Present Illness - Reason for Consult Consult date: 04/14/22 Influenza Requesting physician: Fabienne Fortune - Chief Complaint Increasing shortness of breath x few days - History of Present Illness Patient is a 56-year-old female with multiple comorbidities including diabetes mellitus type 2 hypertension rheumatoid arthritis chronic kidney disease diastolic congestive heart failure and chronic bronchial asthma recently did have left hip fracture s/p operative repair patient is presenting to the ER yesterday for evaluation of increasing shortness of breath cough which has been mild to moderate intensity mostly clear sputum no hemoptysis no pleuritic chest pain also complaining of nausea and vomiting patient on presentation to the hospital has been afebrile and no fever him recorded subsequently patient is currently on 5 L nasal cannula satting about 96% patient did have a normal white count mild leukopenia this morning with lymphopenia did have elevated BUN and creatinine AST was mildly elevated amylase lipase was normal patient did tested positive for influenza A RSV and COVID testing was negative patient did have a chest x-ray improvement in the large right effusion compared to old exam pulmonary edema could be congestive heart failure or RDS patient was admitted to the hospital infectious was consulted for the positive influenza a Review of Systems Positive point has been mentioned in the HPI rest of the systems are negative Past Medical History Past Medical History: Cancer, Diabetes Mellitus, Deep Vein Thrombosis (DVT), Hypertension, Renal Disease, Rheumatoid Arthritis (RA), Thyroid Disorder Additional Past Medical History / Comment(s): O2 @ 4L. SLE LUPUS. STAGE 3 KIDNEY DISEASE. Leukemia, GRAVES DZ , kidney stones, gout, Uterine cancer (recent diagnosis, no treatment yet) History of Any Multi-Drug Resistant Organisms: None Reported Past Surgical History: No Surgical Hx Reported Additional Past Surgical History / Comment(s): BILATERAL ARTHROSCOPY KNEES. D & C (MISCARRIAGES). Past Anesthesia/Blood Transfusion Reactions: No Reported Reaction Past Psychological History: Anxiety Smoking Status: Never smoker Past Alcohol Use History: None Reported Past Drug Use History: None Reported - Past Family History Mother Family Medical History: Congestive Heart Failure (CHF), Diabetes Mellitus Father Family Medical History: Congestive Heart Failure (CHF), Dialysis, Hypertension Medications and Allergies Home Medications Medication Instructions Recorded Confirmed Type FLUoxetine HCL [PROzac] 20 mg PO BID 01/09/17 04/16/22 History Montelukast [Singulair] 10 mg PO DAILY 01/09/17 04/16/22 History gemfibroziL [Lopid] 600 mg PO BID 01/09/17 04/16/22 History Albuterol Inhaler [Ventolin Hfa 2 puff INHALATION RT-Q4H PRN 01/14/17 04/16/22 History Inhaler] Albuterol Nebulized [Ventolin 2.5 mg INHALATION RT-QID PRN 01/14/17 04/16/22 History Nebulized] allopurinoL [Zyloprim] 100 mg PO BID 01/21/22 04/16/22 History Atorvastatin [Lipitor] 10 mg PO HS 02/15/22 04/16/22 History Ondansetron [Zofran] 4 mg PO Q12HR PRN 02/15/22 04/16/22 History Pantoprazole [Protonix] 40 mg PO BID 02/15/22 04/16/22 History Acetaminophen Tab [Tylenol] 650 mg PO Q6HR PRN tab 03/28/22 04/16/22 Rx Aspirin 81 mg PO BID tab 03/28/22 04/16/22 Rx Ferrous Sulfate [Iron (65 MG 325 mg PO DAILY #30 tab 03/28/22 04/16/22 Rx Elemental)] Primidone [Mysoline] 50 mg PO HS tab 03/28/22 04/16/22 Rx Sennosides-Docusate Sodium 2 tab PO HS PRN 04/02/22 04/16/22 History [Senokot-S] Apixaban [Eliquis] 5 mg PO BID 30 Days #60 tab 04/10/22 04/16/22 Rx Megestrol [Megace] 40 mg PO BID #60 tablet 04/10/22 04/16/22 Rx Budesonide/Formoterol Fumarate 1 puff INHALATION RT-BID 04/13/22 04/16/22 History [Symbicort 160-4.5 Mcg Inhaler] Furosemide [Lasix] 60 mg PO DAILY 04/13/22 04/16/22 History Hydroxychloroquine Sulfate 200 mg PO BID 04/13/22 04/16/22 History [Plaquenil] INSULIN ASPART (NovoLOG) [NovoLOG See Protocol SQ ACHS PRN MDD 04/13/22 04/16/22 History (formulary)] 10units Insulin Detemir (Levemir) [Levemir] 35 unit SQ DAILY 04/13/22 04/16/22 History Metoprolol Succinate (ER) [Toprol 25 mg PO DAILY 04/13/22 04/16/22 History XL] Metoprolol Succinate (ER) [Toprol 50 mg PO DAILY 04/13/22 04/16/22 History XL] hydrOXYzine HCL [Atarax] 25 mg PO QID 04/13/22 04/16/22 History Benzonatate [Tessalon Perles] 100 mg PO TID PRN #20 cap 04/16/22 04/16/22 Rx Ipratropium-Albuterol Nebulize 3 ml INHALATION RT-QID 30 Days 04/16/22 04/16/22 Rx [Duoneb 0.5 mg-3 mg/3 ml Soln] #120 each Ipratropium-Albuterol Nebulize 3 ml INHALATION RT-QID PRN each 04/16/22 04/16/22 Rx [Duoneb 0.5 mg-3 mg/3 ml Soln] predniSONE See Taper PO DIRECTED 04/16/22 04/16/22 History Gabapentin 600 mg PO BID #6 tab 04/17/22 Rx cefUROXime axetiL [Ceftin] 500 mg PO BID 5 Days #10 tab 04/18/22 Rx Allergies Allergy/AdvReac Type Severity Reaction Status Date / Time ciprofloxacin [From Cipro] Allergy Swelling Verified 04/16/22 22:31 diphenhydramine Allergy Swelling Verified 04/16/22 22:31 [From Benadryl] Influenza Virus Vaccines Allergy Unknown Verified 04/16/22 22:31 iodine Allergy Swelling Verified 04/16/22 22:31 propoxyphene Allergy Swelling Verified 04/16/22 22:31 [From Darvocet-N] red dye Allergy Swelling Verified 04/16/22 22:31 sulfacetamide Allergy Swelling Verified 04/16/22 22:31 [From Sulfamide] yellow dye Allergy Swelling Verified 04/16/22 22:31 Physical Exam Vitals: Vital Signs Temp Pulse Pulse Pulse Resp BP BP 04/14/22 07:30 98.4 F 114 H 20 139/75 04/14/22 02:48 117 H 16 04/14/22 02:26 98.7 F 117 H 16 137/74 04/13/22 22:48 98.2 F 109 H 18 12/31/22 21:33 96 20 141/62 04/13/22 19:30 116 H 04/13/22 19:19 110 H 04/13/22 19:03 97.8 F 115 H 20 146/89 Pulse Ox 04/14/22 07:30 99 04/14/22 02:48 04/14/22 02:26 92 L 04/13/22 22:48 95 04/13/22 21:33 95 04/13/22 19:30 04/13/22 19:19 04/13/22 19:03 96 Intake and Output 04/13/22 04/14/22 04/14/22 22:59 06:59 14:59 Output Total 300 550 Balance -300 -550 Output: Urine 300 550 Other: Voiding Method External Catheter Weight 95.254 kg GENERAL DESCRIPTION: Middle-aged female lying in bed, no distress. No tachypnea or accessory muscle of respiration use. HEENT: Shows Pallor , no scleral icterus. Oral mucous membrane is dry. No ph aryngeal erythema or thrush NECK: Trachea central, no thyromegaly. LUNGS: Unlabored breathing. Coarse breath sounds bilaterally HEART: S1, S2, regular rate and rhythm. No loud murmur ABDOMEN: Soft, no tenderness , guarding or rigidity, no organomegaly EXTREMITIES: Left hip incision is intact no redness or drainage. SKIN: No rash, no masses palpable. NEUROLOGICAL: The patient is awake, alert, oriented x3, mood and affect normal. Results CBC & Chem 7: 04/16/22 06:57 04/16/22 06:57 Labs: Abnormal Lab Results - Last 24 Hours (Table) 04/13/22 04/13/22 04/13/22 Range/Units 19:42 19:42 19:42 WBC (3.8-10.6) k/uL RBC 3.29 L (3.80-5.40) m/uL Hgb 9.6 L D (11.4-16.0) gm/dL Hct 30.2 L (34.0-46.0) % MCHC (31.0-37.0) g/dL RDW 15.7 H (11.5-15.5) % Lymphocytes # 0.6 L (1.0-4.8) k/uL BUN 37 H (7-17) mg/dL Creatinine 1.56 H (0.52-1.04) mg/dL Glucose 226 H (74-99) mg/dL POC Glucose (mg/dL) (70-110) mg/dL AST (14-36) U/L Total Protein (6.3-8.2) g/dL Albumin (3.5-5.0) g/dL Influenza Type A (PCR) Detected A (Not Detectd) 04/14/22 04/14/22 04/14/22 Range/Units 07:28 07:47 07:47 WBC 3.4 L (3.8-10.6) k/uL RBC 2.99 L (3.80-5.40) m/uL Hgb 8.5 L (11.4-16.0) gm/dL Hct 27.5 L (34.0-46.0) % MCHC 30.8 L (31.0-37.0) g/dL RDW 16.2 H (11.5-15.5) % Lymphocytes # 0.6 L (1.0-4.8) k/uL BUN 31 H (7-17) mg/dL Creatinine 1.51 H (0.52-1.04) mg/dL Glucose 196 H (74-99) mg/dL POC Glucose (mg/dL) 205 H (70-110) mg/dL AST 38 H (14-36) U/L Total Protein 6.0 L (6.3-8.2) g/dL Albumin 3.4 L (3.5-5.0) g/dL Influenza Type A (PCR) (Not Detectd) 04/14/22 Range/Units 11:19 WBC (3.8-10.6) k/uL RBC (3.80-5.40) m/uL Hgb (11.4-16.0) gm/dL Hct (34.0-46.0) % MCHC (31.0-37.0) g/dL RDW (11.5-15.5) % Lymphocytes # (1.0-4.8) k/uL BUN (7-17) mg/dL Creatinine (0.52-1.04) mg/dL Glucose (74-99) mg/dL POC Glucose (mg/dL) 192 H (70-110) mg/dL AST (14-36) U/L Total Protein (6.3-8.2) g/dL Albumin (3.5-5.0) g/dL Influenza Type A (PCR) (Not Detectd) Assessment and Plan (1) Influenza A Status: Acute Code(s): J10.1 - FLU DUE TO OTH IDENT INFLUENZA VIRUS W OTH RESP MANIFEST SNOMED Code(s): 813729147 Plan: 1patient presented to hospital with increasing shortness of breath which is likely multifactorial possible component of diastolic heart failure patient also tested positive for acute influenza possibly playing a role however the patient not running any fever did not have elevated white count clinic suspicious with low for a secondary bacterial pneumonia. 2Tamiflu has been added and will finish a 5-day course of therapy. 3droplet isolation. 4we will check a CRP and procalcitonin. We will follow on clinical condition and cultures to further adjust medication if needed Thank you for this consultation we will follow the patient along with you Time with Patient: Greater than 30
[2022-04-15 11:26] LABS: Glucose,Whole Blood 206 mg/dL (70-110)
--- NOTE | 2022-04-15 13:42 | P.PN ---
Subjective Progress Note Date: 04/15/22 Principal diagnosis: influenza a infection, acute asthma exacerbation This is a 56-year-old female patient who has a history of diastolic congestive heart failure, diabetes mellitus type 2, hypertension, rheumatoid arthritis, chronic kidney disease, uterine cancer awaiting treatment, anxiety/depression, severe chronic bronchial asthma follows with Dr. Jarquin in our office for the same. She had recently been admitted for a left hip fracture and again more recently readmitted for right superficial venous thrombosis of the right cephalic and basilic veins. She initially been treated with heparin which was subsequent discontinued due to hematuria then ended up being on Eliquis. She was just discharged home from here on 04/10/2022. She represented here to the emergency room yesterday 04/13/2022 with complaints of increasing shortness of breath, cough congestion, nausea and vomiting. White count 2.4. Hemoglobin 8.5. Platelets 245. Sodium 138. Potassium 4.1. BUN 31. Creatinine 1.56. Glucose 196. ProBNP 6970. She was found to be influenza A positive. Ramirez virus negative. RSV negative. Chest x-ray showed improvement and a previous right pleural effusion. There is cardiomegaly. Pulmonary edema could suggest congestive heart failure or respiratory distress syndrome. She has been initiated on DuoNeb inhalations, Symbicort, Tessalon Perles. She is anticoagulated with Eliquis. She is seen today in consultation on the regular medical floor. She is currently laying flat in bed. Awake and alert in no acute distress. She is audibly wheezing. She has a loose nonproductive cough. She is maintaining O2 saturation in the 90s on 4 L/m per nasal cannula. She has not received a flu vaccine due to ALLERGIES. She has normal saline at 75 ML's p er hour. She received IV Lasix 80 mg 1. I'm evaluating this patient today on 04/15/2022 on a general medical floor. She continues to have some mild dyspnea, she is laying on her side in bed, on 5 L nasal cannula. Her oxygen saturation is 100%. vital signs are stable, and patient remains afebrile. no new chest x-ray to review today. no new CBC today. BMP from today is stable with a sodium of 139, potassium 4.4, chloride 101, serum CO2 26.5, BUN 26.6, creatinine 1.6, glucose 167.she continues to receive Tamiflu for a positive influenza A infection. she has no fluids using, and she did receive a one-time dose of Lasix 40 mg yesterday. fluid balance is -840 in the last 24 hours. she also continues to receive Ventolin nebulizations, Symbicort inhaler, Singulair, and oral prednisone. Objective - Vital Signs Vital signs: Vital Signs Temp 97.8 F 04/15/22 07:23 Pulse 88 04/15/22 11:53 Resp 20 04/15/22 07:23 BP 123/67 04/15/22 07:23 Pulse Ox 100 04/15/22 07:23 FiO2 Intake & Output 04/14/22 04/15/22 04/15/22 18:59 06:59 18:59 Intake Total 1210 Output Total 1050 1000 Balance -1050 210 Intake: Oral 1210 Output: Urine 1050 1000 Other: Voiding Method External Catheter External Catheter External Catheter - Exam GENERAL EXAM: Alert, pleasant 56-year-old female, 5 L nasal cannula, fairly comfortable in no apparent distress. HEAD: Normocephalic. EYES: Normal reaction of pupils, equal size. NOSE: Clear with pink turbinates. THROAT: No erythema or exudates. NECK: No masses, no JVD. CHEST: No chest wall deformity. LUNGS: Equal air entry with bilateral end expiratory wheeze, scattered rhonchi. patient is on 5 L nasal cannula with an oxygen saturation of 100%. CVS: S1 and S2 normal with no audible murmur, regular rhythm. heart rate is 83 bpm ABDOMEN: No hepatosplenomegaly, normal bowel sounds, no guarding or rigidity. SPINE: No scoliosis or deformity SKIN: No rashes CENTRAL NERVOUS SYSTEM: No focal deficits, tone is normal in all 4 extremities. EXTREMITIES: There is 1+ peripheral edema. No clubbing, no cyanosis. Peripheral pulses are intact. - Labs CBC & Chem 7: 04/14/22 07:47 04/15/22 05:50 Labs: Abnormal Lab Results - Last 24 Hours (Table) 04/14/22 04/14/22 04/15/22 Range/Units 17:12 20:20 05:50 Creatinine 1.6 H (0.6-1.5) mg/dL Est GFR (CKD-EPI)AfAm 41.6 L (60.0-200.0) Est GFR (CKD-EPI)NonAf 35.9 L (60.0-200.0) Glucose 167 H (70-110) mg/dL POC Glucose (mg/dL) 212 H 216 H (70-110) mg/dL 04/15/22 04/15/22 Range/Units 07:21 11:24 Creatinine (0.6-1.5) mg/dL Est GFR (CKD-EPI)AfAm (60.0-200.0) Est GFR (CKD-EPI)NonAf (60.0-200.0) Glucose (70-110) mg/dL POC Glucose (mg/dL) 178 H 206 H (70-110) mg/dL Assessment and Plan Assessment: Acute influenza A infection Acute exacerbation of severe chronic persistent bronchial asthma secondary to above Acute exacerbation of chronic diastolic heart failure with preserved ejection fraction Recent admission for a right superficial venous thrombosis of the right cephalic and basilic veins. Discharged home 04/10/2022 on Eliquis Chronic anemia. Current hemoglobin 8.5 Uterine cancer, awaiting treatment. Left hip fracture, status post repair 03/18/2022 Chronic kidney disease stage III Morbid obesity Diabetes mellitus type 2 insulin-dependent Primary hypertension Rheumatoid arthritis Poor functional performance based on the above-mentioned multiple comorbidities Plan: The patient was seen and evaluated labs and medications reviewed continue Tamiflu Continue DuoNeb inhalations, Symbicort, Singulair continue prednisone 30 mg daily Remains on Tessalon Perles Remains on Eliquis Titrate the FiO2 as tolerated We will continue to follow and make further recommendations based on her clinical status I have personally seen and examined the patient, performed the documentation and the assessment and plan as written. Number of minutes spent on the visit: [10]. Time with Patient: Less than 30
[2022-04-15] MEDS ORDERED: IPRATROPIUM-ALBUTEROL 3 ML NEB INHALATION PRN (14:06)
--- NOTE | 2022-04-15 14:53 | P.PN ---
Subjective Progress Note Date: 04/15/22 Principal diagnosis: Acute influenza A Patient is a 56-year-old female with multiple comorbidities including diabetes mellitus type 2 hypertension rheumatoid arthritis chronic kidney disease diastolic congestive heart failure and chronic bronchial asthma recently did have left hip fracture s/p operative repair patient is presenting to the ER for evaluation of increasing shortness of breath cough and has been diagnosed with acute influenza. On today's evaluation that is 04/15/2022, the patient denies having any fever or any chills, the patient is breathing slightly comfortable today. Denies having any chest pain continued have a cough not bring up any sputum no abdominal pain or any diarrhea Objective - Vital Signs Vital signs: Vital Signs Temp 98.6 F 04/15/22 13:33 Pulse 90 04/15/22 13:33 Resp 16 04/15/22 13:33 BP 130/85 04/15/22 13:33 Pulse Ox 95 04/15/22 13:33 FiO2 Intake & Output 04/14/22 04/15/22 04/15/22 18:59 06:59 18:59 Intake Total 1210 Output Total 1050 1000 Balance -1050 210 Intake: Oral 1210 Output: Urine 1050 1000 Other: Voiding Method External Catheter External Catheter External Catheter - Exam GENERAL DESCRIPTION: A middle-age female up in the chair in no distress RESPIRATORY SYSTEM: Unlabored breathing , decreased breath sounds at bases HEART: S1 S2 regular rate and rhythm , ABDOMEN: Soft , no tenderness EXTREMITIES: Diffuse swelling to the leg no redness - Labs CBC & Chem 7: 04/14/22 07:47 04/15/22 05:50 Labs: Abnormal Lab Results - Last 24 Hours (Table) 04/14/22 04/14/22 04/15/22 Range/Units 17:12 20:20 05:50 Creatinine 1.6 H (0.6-1.5) mg/dL Est GFR (CKD-EPI)AfAm 41.6 L (60.0-200.0) Est GFR (CKD-EPI)NonAf 35.9 L (60.0-200.0) Glucose 167 H (70-110) mg/dL POC Glucose (mg/dL) 212 H 216 H (70-110) mg/dL 04/15/22 04/15/22 Range/Units 07:21 11:24 Creatinine (0.6-1.5) mg/dL Est GFR (CKD-EPI)AfAm (60.0-200.0) Est GFR (CKD-EPI)NonAf (60.0-200.0) Glucose (70-110) mg/dL POC Glucose (mg/dL) 178 H 206 H (70-110) mg/dL Assessment and Plan (1) Influenza A Current Visit: Yes Status: Acute Code(s): J10.1 - FLU DUE TO OTH IDENT INFLUENZA VIRUS W OTH RESP MANIFEST SNOMED Code(s): 851436408 Plan: 1patient presented to hospital with increasing shortness of breath which is likely multifactorial possible component of diastolic heart failure patient also tested positive for acute influenza possibly playing a role however the patient not running any fever did not have elevated white count clinic suspicious with low for a secondary bacterial pneumonia. 2patient to continue with Tamiflu to finish a 5-day course of therapy. 3droplet isolation. Time with Patient: Less than 30
[2022-04-15 15:12] VITALS: BMI 31.9
[2022-04-15 17:17] LABS: Glucose,Whole Blood 223 mg/dL (70-110)
[2022-04-15 20:21] LABS: Glucose,Whole Blood 238 mg/dL (70-110)
[2022-04-15] MEDS: ATORVASTATIN 10 MG TAB PO SCH (20:48)
[2022-04-15] MEDS: FENOFIBRATE 160 MG TAB PO SCH (20:48)
[2022-04-15] MEDS: PRIMIDONE 50 MG TAB PO SCH (20:49)
[2022-04-16 03:32] VITALS: RESP 18
--- NOTE | 2022-04-16 06:13 | P.PN ---
Subjective Progress Note Date: 04/15/22 This is a 56-year-old female who presented to the emergency department with increasing shortness of breath along with cough and congestion and reporting nausea and vomiting with some diarrhea that started a few days ago. Patient was recently admitted and discharged from here for anemia and concerns for DVT and is maintained on oral anticoagulation. Patient reports her primary care provider is Dr. Alicea but has yet to see him as she has been hospitalized over the last 2 months including going to rehab for recent left hip fracture. Patient with chronic anemia along with kidney disease and endometrial cancer and history of DVT hemoglobin is stable from previous. Patient reported to have some congestion and increasing shortness of breath and patient does have bronchial asthma which is chronic and wears 4 L outpatient chronically. Patient does report she uses inhalers and does have a nebulizer at home. Patient was found to be influenza positive. Patient is morbidly obese and extremely no ncompliant with medication and follow-up and has progressively become more weak with all these previous hospitalizations in recent left hip fracture. On last admission patient was to return to [facility] although patient refused and went home with home care arrangements. Patient was admitted for nausea and vomiting and weakness. Oncology was on consult although unsure why as patient is to follow- up outpatient with radiation oncology along with oncology in the outpatient setting. Will consult infectious disease and also pulmonary and appreciate input and recommendations regarding her asthma and influenza. Patient did have some diarrhea and a C. diff test was ordered and patient is maintained on clear liquids due to her nausea and vomiting. Patient was started on IV hydration although given her history of heart failure and BNP of 6970 will hold on fluids for now. EKG showed sinus tachycardia with heart rate of 113, chest x-ray showed improvement in the large right pleural effusion compared to previous exam along with some cardiomegaly along with also pulmonary edema that could be conge stive heart failure or RDS. Labs reviewed on exam show a WBC of 3.4, hemoglobin is 8.5, platelets are 245, sodium is 138, potassium 4.1, BUN 31, creatinine 1.51, influenza A positive, Covid, RSV negative, BNP was 6970. 04/15/2022 Patient is seen in follow-up currently sitting up in the chair with pulmonary and infectious disease following. Oncology following recommending outpatient follow-up with radiation therapy. Patient is continued on Tamiflu along with DuoNeb and oral steroids. Patient continues on 4-5 L which she chronically wears 4 L outpatient. Encouraged to increase activity as tolerated and will have physical therapy evaluate the patient. Recommend continue monitoring blood sugars as they have been elevated continue Accu-Cheks before meals and at bedtime along with sliding scale and long-acting. Will resume home Lasix dose to monitor closely. Creatinine 1.6 today. Patient is afebrile and wbc is within normal limits. Patient continues to report shortness of breath and cough although no worse. Patient denies chest pain or palpitations. No nausea or vomiting noted patient tolerating diet. Patient was initially on clear liquids due to nausea and vomiting although asking for and advance and will continue with consistent carb. Review of systems: Constitutional: No reports of fatigue, fever, or chills Cardiovascular: No reports of chest pain or palpitations Respiratory: No reports of worsening shortness of breath, and continues to report cough GI: No reports of nausea, vomiting, or diarrhea, asking for advance diet as patient has been maintained on clear liquids : No reports of dysuria or retention Neurovascular: reports of generalized weakness All medications have been reviewed Active Medications Acetaminophen (Acetaminophen Tab 500 Mg Tab) 500 mg PO Q6HR PRN PRN Reason: FEVER AND/OR PAIN Albuterol Sulfate (Albuterol Nebulized 2.5 Mg/3 Ml) 2.5 mg INHALATION RT-Q4H PRN PRN Reason: Shortness Of Breath Allopurinol (Allopurinol 100 Mg Tab) 100 mg PO BID [facility] Last Admin: 04/15/22 08:27 Dose: 100 mg Apixaban (Apixaban 5 Mg Tab) 5 mg PO BID [facility]; Protocol Last Admin: 04/15/22 08:27 Dose: 5 mg Atorvastatin Calcium (Atorvastatin 10 Mg Tab) 10 mg PO HS [facility] Last Admin: 04/14/22 21:30 Dose: 10 mg Benzonatate (Benzonatate 100 Mg Cap) 100 mg PO TID PRN PRN Reason: Cough Last Admin: 04/15/22 01:36 Dose: 100 mg Budesonide/Formoterol Fumarate (Symbicort 160-4.5 Mcg Inhaler) 1 puff INHALATION RT-BID [facility] Last Admin: 04/15/22 07:13 Dose: 1 puff Dextrose/Water (Dextrose 50% Syringe 50 Ml) 25 ml IVP PER PROTOCOL PRN; Protocol PRN Reason: Hypoglycemia Dextrose/Water (Dextrose 50% Syringe 50 Ml) 50 ml IVP PER PROTOCOL PRN; Protocol PRN Reason: Hypoglycemia Fenofibrate (Fenofibrate 160 Mg Tab) 160 mg PO HS [facility] Last Admin: 04/14/22 21:30 Dose: 160 mg Ferrous Sulfate (Ferrous Sulfate 325 Mg Tab) 325 mg PO DAILY [facility] Last Admin: 04/15/22 08:27 Dose: 325 mg Fluoxetine HCl (Fluoxetine Hcl 20 Mg Cap) 20 mg PO BID [facility] Last Admin: 04/15/22 08:27 Dose: 20 mg Gabapentin (Gabapentin 300 Mg Cap) 600 mg PO BID [facility] Last Admin: 04/15/22 08:27 Dose: 600 mg Insulin Aspart (Insulin Aspart (Novolog) 100 Unit/Ml Vial) 0 unit SQ ACHS [facility]; Protocol Last Admin: 04/15/22 12:50 Dose: 4 unit Insulin Detemir (Insulin Detemir (Levemir) 100 Unit/Ml Syr) 35 unit SQ DAILY [facility] Last Admin: 04/15/22 08:25 Dose: 35 unit Megestrol Acetate (Megestrol 40 Mg Tab) 40 mg PO BID [facility] Last Admin: 04/15/22 08:28 Dose: 40 mg Metoprolol Succinate (Metoprolol Succinate (Er) 25 Mg Tab.Er.24h) 25 mg PO DAILY [facility] Last Admin: 04/14/22 13:13 Dose: 25 mg Metoprolol Succinate (Metoprolol Succinate (Er) 50 Mg Tab.Er.24h) 50 mg PO DAILY [facility] Last Admin: 04/15/22 08:28 Dose: 50 mg Midodrine (Midodrine 5 Mg Tab) 5 mg PO AC-TID [facility] Last Admin: 04/15/22 13:48 Dose: Not Given Montelukast Sodium (Montelukast 10 Mg Tab) 10 mg PO DAILY [facility] Last Admin: 04/15/22 08:27 Dose: 10 mg Morphine Sulfate (Morphine Sulfate 4 Mg/Ml Syringe) 4 mg IV Q4HR PRN PRN Reason: Severe Pain (Scale 7 to 10) Last Admin: 04/15/22 05:55 Dose: 4 mg Naloxone HCl (Naloxone 0.4 Mg/Ml 1 Ml Vial) 0.2 mg IV Q2M PRN PRN Reason: Opioid Reversal Ondansetron HCl (Ondansetron 4 Mg/2 Ml Vial) 4 mg IVP Q8HR PRN PRN Reason: Nausea And Vomiting Oseltamivir Phosphate (Oseltamivir 60 Mg/10 Ml Oral Syringe) 30 mg PO BID [facility]; Protocol Stop: 04/18/22 21:01 Last Admin: 04/15/22 08:25 Dose: 30 mg Pantoprazole Sodium (Pantoprazole 40 Mg Tablet) 40 mg PO BID [facility] Last Admin: 04/15/22 08:27 Dose: 40 mg Prednisone (Prednisone 10 Mg Tab) 30 mg PO DAILY [facility] Last Admin: 04/15/22 08:27 Dose: 30 mg Primidone (Primidone 50 Mg Tab) 50 mg PO HS [facility] Last Admin: 04/14/22 21:30 Dose: 50 mg Senna/Docusate Sodium (Sennosides-Docusate Sodium 1 Each Tab) 2 each PO HS PRN PRN Reason: Constipation PHYSICAL EXAMINATION: GENERAL: The patient is alert and oriented x4, Well developed, well nourished. Morbidly obese HEENT: Pupils are round and equally reacting to light. EOMI. no scleral icterus. No conjunctival pallor. Normocephalic, atraumatic. No pharyngeal erythema. No thyromegaly. CARDIOVASCULAR: S1 and S2 muffled PULMONARY: diminished breath sounds bilaterally with some scattered rhonchi noted. ABDOMEN: soft. Mildly tender on exam. obese. non-distended, normoactive bowel sounds. No palpable organomegaly. MUSCULOSKELETAL: No joint swelling or deformity. EXTREMITIES: No cyanosis, clubbing, or pedal edema. Generalized edema noted throughout NEUROLOGICAL: Gross neurological examination did not reveal any focal deficits. Diffuse weakness SKIN: No rashes. Assessment: Nausea/vomiting/diarrhea, most likely gastritis secondary to acute influenza, improving Acute influenza infection Chronic hypoxic respiratory failure due to severe bronchial asthma, maintained on 4 L outpatient History of lupus History of anxiety History of severe chronic bronchial asthma, acute exacerbation History of chronic kidney disease stage III History of heart failure with preserved EF, EF on 02/15/2022 is 55-60% Diabetes mellitus, type 2 insulin-dependent uncontrolled with hyperglycemia hypertension Recent diagnosis of DVT of the right subclavian vein and right axillary vein Recent left hip fracture with repair history of endometrial adenocarcinoma and will need follow-up outpatient, yet to receive treatment GI prophylaxis DVT prophylaxis: on eliquis Full code Plan: Recommend to continue with current medications and management with pulmonary and infectious disease following. Patient started on Tamiflu and will continue with DuoNeb's and oral steroids Recommend Accu-Cheks before meals and at bedtime and will continue sliding scale and long-acting Patient was initially having nausea and vomiting and maintained on clear liquids although reports is improved and asking for an advancing diet. Will continue consistent carb Home medications have been reviewed and resumed and will continue anticoagulant as well. Encouraged increased activity as tolerated and patient is maintained on her chronic 4 L via nasal cannula Oncology was consulted although unsure why by the ER as she was to follow-up with them and radiation oncology outpatient. Attempted mapping for radiation t herapy although patient could not handle and reported to providers in all consultations that she wanted to hold on oncological care at this times that she could build up her strength and mobility to be able to handle treatment. Patient has been significantly weak and progressively getting worse since her left hip fracture on 2 admissions ago. Due to multiple complex medical issues, prognosis is guarded Consider possible discharge in the next 24-48 hours The impression and plan of care has been dictated by Fabienne Fortune, nurse practitioner as directed. Dr. Karsten MD I have performed a history and examination and MDM of this patient, discussed the same with the dictator, and agree with the dictator's assessment and plan as written ,documented as a scribe. Based on total visit time, I have performed more than 50% of the visit. Any additional findings or plans will be noted. Objective - Vital Signs Vital signs: Vital Signs Temp 98.6 F 04/15/22 13:33 Pulse 90 04/15/22 13:33 Resp 16 04/15/22 13:33 BP 130/85 04/15/22 13:33 Pulse Ox 95 04/15/22 13:33 FiO2 Intake & Output 04/14/22 04/15/22 04/15/22 18:59 06:59 18:59 Intake Total 1210 Output Total 1050 1000 Balance -1050 210 Intake: Oral 1210 Output: Urine 1050 1000 Other: Voiding Method External Catheter External Catheter External Catheter - Labs CBC & Chem 7: 04/14/22 07:47 04/15/22 05:50 Labs: Abnormal Lab Results - Last 24 Hours (Table) 04/14/22 04/14/22 04/15/22 Range/Units 17:12 20:20 05:50 Creatinine 1.6 H (0.6-1.5) mg/dL Est GFR (CKD-EPI)AfAm 41.6 L (60.0-200.0) Est GFR (CKD-EPI)NonAf 35.9 L (60.0-200.0) Glucose 167 H (70-110) mg/dL POC Glucose (mg/dL) 212 H 216 H (70-110) mg/dL 04/15/22 04/15/22 Range/Units 07:21 11:24 Creatinine (0.6-1.5) mg/dL Est GFR (CKD-EPI)AfAm (60.0-200.0) Est GFR (CKD-EPI)NonAf (60.0-200.0) Glucose (70-110) mg/dL POC Glucose (mg/dL) 178 H 206 H (70-110) mg/dL
[2022-04-16] MEDS: SYMBICORT 160-4.5 MCG INHALER INHALATION SCH (07:20)
[2022-04-16] MEDS: IPRATROPIUM-ALBUTEROL 3 ML NEB INHALATION SCH ×2 (07:20→10:53)
[2022-04-16 07:28] LABS: Glucose,Whole Blood 126 mg/dL (70-110)
[2022-04-16] MEDS: INSULIN ASPART (NovoLOG) 100 UNIT/ML VIAL SQ SCH ×2 (07:44→11:25)
[2022-04-16] MEDS: MIDODRINE 5 MG TAB PO SCH ×2 (08:20→11:25)
--- NOTE | 2022-04-16 08:50 | P.PN ---
Subjective Progress Note Date: 04/16/22 This is a 56-year-old female patient who has a history of diastolic congestive heart failure, diabetes mellitus type 2, hypertension, rheumatoid arthritis, chronic kidney disease, uterine cancer awaiting treatment, anxiety/depression, severe chronic bronchial asthma follows with Dr. Jarquin in our office for the same. She had recently been admitted for a left hip fracture and again more recently readmitted for right superficial venous thrombosis of the right cephalic and basilic veins. She initially been treated with heparin which was subsequent discontinued due to hematuria then ended up being on Eliquis. She was just discharged home from here on 04/10/2022. She represented here to the emergency room yesterday 04/13/2022 with complaints of increasing shortness of breath, cough congestion, nausea and vomiting. White count 2.4. Hemoglobin 8.5. Platelets 245. Sodium 138. Potassium 4.1. BUN 31. Creatinine 1.56. Glucose 196. ProBNP 6970. She was found to be influenza A positive. Ramirez virus negative. RSV negative. Chest x-ray showed improvement and a previous right pleural effusion. There is cardiomegaly. Pulmonary edema could suggest congestive heart failure or respiratory distress syndrome. She has been initiated on DuoNeb inhalations, Symbicort, Tessalon Perles. She is anticoagulated with Eliquis. She is seen today in consultation on the regular medical floor. She is currently laying flat in bed. Awake and alert in no acute distress. She is audibly wheezing. She has a loose nonproductive cough. She is maintaining O2 saturation in the 90s on 4 L/m per nasal cannula. She has not received a flu vaccine due to ALLERGIES. She has normal saline at 75 ML's per hour. She received IV Lasix 80 mg 1. I'm evaluating this patient today on 04/15/2022 on a general medical floor. She continues to have some mild dyspnea, she is laying on her side in bed, on 5 L nasal cannula. Her oxygen saturation is 100%. vital signs are stable, and patient remains afebrile. no new chest x-ray to review today. no new CBC today. BMP from today is stable with a sodium of 139, potassium 4.4, chloride 101, serum CO2 26.5, BUN 26.6, creatinine 1.6, glucose 167.she continues to receive Tamiflu for a positive influenza A infection. she has no fluids using, and she did receive a one-time dose of Lasix 40 mg yesterday. fluid balance is -840 in the last 24 hours. she also continues to receive Ventolin nebulizations, Symbicort inhaler, Singulair, and oral prednisone. The patient is seen today 04/16/2022 in follow-up on the regular medical floor. She is currently resting comfortably in bed. Awake and alert in no acute distress. She is maintaining O2 saturations in the high 90s on 4 L/m per nasal cannula. She's afebrile. Hemodynamically stable. She states she was up in a chair yesterday for about 5 hours. She's been mostly seen laying in bed. She is slightly better. She is still wheezing. Not quite as bronchospastic. Glucose 126. She remains on Tamiflu. Continued on prednisone taper, Singulair, Symbicort. Remains on DuoNeb inhalations. Anticoagulated with Eliquis. Continue on oral diuretics. Currently in a -840 ML balance. Objective - Vital Signs Vital signs: Vital Signs Temp 98.1 F 04/16/22 07:30 Pulse 76 04/16/22 07:36 Resp 18 04/16/22 07:30 BP 126/69 04/16/22 07:30 Pulse Ox 95 04/16/22 07:30 FiO2 Intake & Output 04/15/22 04/16/22 04/16/22 18:59 06:59 18:59 Intake Total 740 Balance 740 Weight 95.254 kg Intake: Oral 740 Other: Voiding Method External Catheter Bedside Commode # Voids 3 2 - Exam GENERAL EXAM: Alert, obese 60-year-old female, on 4 L nasal cannula, comfortable in no apparent distress. HEAD: Normocephalic. EYES: Normal reaction of pupils, equal size. NOSE: Clear with pink turbinates. THROAT: No erythema or exudates. NECK: No masses, no JVD. CHEST: No chest wall deformity. LUNGS: Equal air entry with bilateral end expiratory wheeze. CVS: S1 and S2 normal with no audible murmur, regular rhythm. ABDOMEN: No hepatosplenomegaly, normal bowel sounds, no guarding or rigidity. SPINE: No scoliosis or deformity SKIN: No rashes CENTRAL NERVOUS SYSTEM: No focal deficits, tone is normal in all 4 extremities. EXTREMITIES: There is no peripheral edema. No clubbing, no cyanosis. Peripheral pulses are intact. - Labs CBC & Chem 7: 04/14/22 07:47 04/15/22 05:50 Labs: Abnormal Lab Results - Last 24 Hours (Table) 04/15/22 04/15/22 04/15/22 Range/Units 05:50 11:24 17:16 Creatinine 1.6 H (0.6-1.5) mg/dL Est GFR (CKD-EPI)AfAm 41.6 L (60.0-200.0) Est GFR (CKD-EPI)NonAf 35.9 L (60.0-200.0) Glucose 167 H (70-110) mg/dL POC Glucose (mg/dL) 206 H 223 H (70-110) mg/dL 04/15/22 04/16/22 Range/Units 20:13 07:26 Creatinine (0.6-1.5) mg/dL Est GFR (CKD-EPI)AfAm (60.0-200.0) Est GFR (CKD-EPI)NonAf (60.0-200.0) Glucose (70-110) mg/dL POC Glucose (mg/dL) 238 H 126 H (70-110) mg/dL Assessment and Plan Assessment: Acute influenza A infection. Currently on Tamiflu Acute exacerbation of severe chronic persistent bronchial asthma secondary to a kobe Acute exacerbation of chronic diastolic heart failure with preserved ejection fraction Recent admission for a right superficial venous thrombosis of the right cephalic and basilic veins. Discharged home 04/10/2022 on Eliquis Chronic anemia. Current hemoglobin 8.5 Uterine cancer, awaiting treatment Left hip fracture, status post repair 03/18/2022 Chronic kidney disease stage III Morbid obesity Diabetes mellitus type 2 insulin-dependent Primary hypertension Rheumatoid arthritis Poor functional performance based on the above-mentioned multiple comorbidities Plan: The patient was seen and evaluated Medications reviewed Continue Tamiflu Continue DuoNeb inhalations, Symbicort, Singulair Continue prednisone 30 mg daily Remains on Tessalon Perles Continues on oral diuretics Remains on Eliquis Titrate the FiO2 as tolerated Increase her activity as tolerated We will continue to follow I have personally seen and examined the patient, performed the documentation and the assessment and plan as written. Number of minutes spent on the visit: 10.
[2022-04-16] MEDS ORDERED: FUROSEMIDE 40 MG TAB PO SCH (09:00)
[2022-04-16] MEDS: OSELTAMIVIR 60 MG/10 ML ORAL SYRINGE PO SCH (10:00)
[2022-04-16] MEDS: PANTOPRAZOLE 40 MG TABLET PO SCH (10:01)
[2022-04-16] MEDS: MONTELUKAST 10 MG TAB PO SCH (10:01)
[2022-04-16] MEDS: INSULIN DETEMIR (LEVEMIR) 100 UNIT/ML SYR SQ SCH (10:01)
[2022-04-16] MEDS: allopurinoL 100 MG TAB PO SCH (10:01)
[2022-04-16] MEDS: FLUoxetine HCL 20 MG CAP PO SCH (10:01)
[2022-04-16] MEDS: METOPROLOL SUCCINATE (ER) 25 MG TAB.ER.24H PO SCH (10:01)
[2022-04-16] MEDS: GABAPENTIN 300 MG CAP PO SCH (10:02)
[2022-04-16] MEDS: APIXABAN 5 MG TAB PO SCH (10:02)
[2022-04-16] MEDS: predniSONE 10 MG TAB PO SCH (10:02)
[2022-04-16] MEDS: FERROUS SULFATE 325 MG TAB PO SCH (10:02)
[2022-04-16] MEDS: MEGESTROL 40 MG TAB PO SCH (10:03)
[2022-04-16] MEDS: METOPROLOL SUCCINATE (ER) 50 MG TAB.ER.24H PO SCH (10:03)
[2022-04-16 10:14] LABS: Basophils # (A) 0.02 X 10*3/uL (0.00-0.10); Basophils % (A) 0.5 %; Eosinophils # (A) 0.05 X 10*3/uL (0.04-0.35); Eosinophils % (A) 1.2 %; HCT 26.9 % (37.2-46.3); HGB 7.9 g/dL (12.0-15.0); Immature Grans, Automated 0.2 %; Lymphocytes # (A) 1.61 X 10*3/uL (0.90-5.00); Lymphocytes % (A) 40.1 %; MCH 27.6 pg (27.0-32.0); MCHC 29.4 g/dL (32.0-37.0); MCV 94.1 fL (80.0-97.0); Mean Platelet Volume 10.8 fL (9.5-12.2); NRBC Per 100 WBC 0 /100 WBCS (0.0-0.0); Neutrophils # (A) 1.92 X 10*3/uL (1.80-7.70); Platelet Count 269 X 10*3/uL (140-440); RBC 2.86 X 10*6/uL (4.10-5.20); RDW 16.3 % (11.5-14.5); WBC 4.01 X 10*3/uL (4.50-10.00)
[2022-04-16 10:28] LABS: African American GFR (CKD) 36.1 (60.0-200.0); Anion Gap 11.3 mmol/L (10.00-18.00); BUN/Creat Ratio 17.78 Ratio (12.00-20.00); Calcium 8.7 mg/dL (8.7-10.3); Carbon Dioxide 25.7 mmol/L (20.0-27.5); Non-African American GFR(CKD) 31.1 (60.0-200.0); Potassium 4.3 mmol/L (3.5-5.5)
[2022-04-16 11:23] LABS: Glucose,Whole Blood 142 mg/dL (70-110)
[2022-04-16 13:31] VITALS: BP 162/92; PULSE 84; TEMP 98.8
--- NOTE | 2022-04-17 06:58 | P.DS ---
Providers Date of admission: 04/13/22 20:56 Expected date of discharge: 04/16/22 Attending physician: Oren Cunningham MD Consults: 04/13/22 21:01 Consult Physician Urgent Consulting Provider: Pablo Martin Consult Reason/Comments: Oncological care Do you want consulting provider notified?: Yes 04/14/22 10:38 Consult Physician Routine Consulting Provider: Abner Alva Consult Reason/Comments: influenza Do you want consulting provider notified?: Yes Consult Physician Urgent Consulting Provider: Yakov Hodge Consult Reason/Comments: influenza, asthma Do you want consulting provider notified?: Yes 04/16/22 09:36 Consult Physician Routine Consulting Provider: Saúl Bradford Consult Reason/Comments: continuity of care, endometrial cancer Do you want consulting provider notified?: Already Contacted Primary care physician: Deanne Chahal Hospital Course: Final diagnosis Nausea/vomiting/diarrhea, most likely gastritis secondary to acute influenza, improved Acute influenza infection Chronic hypoxic respiratory failure due to severe bronchial asthma, maintained on 4 L outpatient History of lupus History of anxiety History of severe chronic bronchial asthma, acute exacerbation History of chronic kidney disease stage III History of heart failure with preserved EF, EF on 02/15/2022 is 55-60% Diabetes mellitus, type 2 insulin-dependent uncontrolled with hyperglycemia hypertension Recent diagnosis of DVT of the right subclavian vein and right axillary vein Recent left hip fracture with repair history of endometrial adenocarcinoma and will need follow-up outpatient, yet to receive treatment GI prophylaxis DVT prophylaxis: on eliquis Full code Discharge disposition Patient is being discharged in a stable condition with guarded prognosis to home with home care. Patient will follow-up with Dr. Alicea in the outpatient setting upon discharge. Patient is to follow up with nephrology, radiation oncology, oncology as scheduled. Patient to continue Tamiflu to complete the course along with a prednisone taper. Recommend follow-up with pulmonary outpatient. Total time taken is greater than 35 minutes. Hospital course This is a 56-year-old female who was recently admitted with nausea/vomiting/diarrhea and found to have influenza infection and was being closely monitored. Patient showed clinical improvement and was evaluated by pulmonary and cleared for discharge to continue Tamiflu and a prednisone taper. Patient chronically wears 4 L nasal cannula and will also continue with DuoNeb treatments and her inhalers. Patient has had multiple hospitalizations and discussed with about overall care recommending rehab will patient has been refusing. Patient did initially go to rehab after her left hip and was subsequently brought back to the hospital for DVT and later then refused any form of rehab but was agreeable to home care. Patient has had multiple rehospitalizations these past few weeks and also has history of noncompliance w ith medication and follow-up. Patient has been up and walking into the chair and tolerating diet with no further reports of nausea or vomiting and asking for advanced diet. Patient will be discharged home today with guarded prognosis. Patient was to follow-up outpatient with radiation oncology along with oncology in the outpatient setting. On last admission patient stated she wanted to build up strength and mobility prior to following up for any form of oncological care. Currently no reports of chest pain, worsening shortness of breath, or palpitations. Patient is afebrile. No reports of nausea or vomiting and patient is tolerating diet. Patient will be discharged home today. Guarded prognosis as patient is high risk for readmission to noncompliance Physical exam: Gen: This is a 56-year-old female who is awake, alert and oriented 3, well- developed, well-nourished, morbidly obese HEENT: Head is atraumatic, normocephalic. Pupils equal, round. Sclerae is anicteric. NECK: Supple. No JVD. No lymphadenopathy. No thyromegaly. LUNGS: Diminished breath sounds bilaterally with some scattered rhonchi and faint occasional wheezing on expiration. No intercostal retractions. HEART: S1, S2 are muffled ABDOMEN: Soft. Obese Bowel sounds are present. No masses. No tenderness. EXTREMITIES: No pedal edema. No calf tenderness. Generalized edema noted throughout bilateral upper and lower extremities NEUROLOGICAL: Patient is awake, alert and oriented x3. Cranial nerves 2 through 12 are grossly intact. Diffusely weak Please refer to medication reconciliation sheet for a list of medications. The impression and plan of care has been dictated by Fabienne Fortune, Nurse Practitioner as directed. Dr. Karsten MD I have performed a history and examination and MDM of this patient, discussed the same with the dictator, and agree with the dictator's assessment and plan as written ,documented as a scribe. Based on total visit time, I have performed more than 50% of the visit. Patient Condition at Discharge: Fair Plan - Discharge Summary Discharge Rx Participant: Yes New Discharge Prescriptions: New Ipratropium-Albuterol Nebulize [Duoneb 0.5 mg-3 mg/3 ml Soln] 3 ml INHALATION RT-QID PRN each PRN Reason: Shortness Of Breath Or Wheezing Benzonatate [Tessalon Perles] 100 mg PO TID PRN #20 cap PRN Reason: Cough Ipratropium-Albuterol Nebulize [Duoneb 0.5 mg-3 mg/3 ml Soln] 3 ml INHALATION RT-QID 30 Days #120 each Oseltamivir 6Mg/ml Oral Susp [Tamiflu] 30 mg PO BID 3 Days #5 each Continue Montelukast [Singulair] 10 mg PO DAILY gemfibroziL [Lopid] 600 mg PO BID FLUoxetine HCL [PROzac] 20 mg PO BID Albuterol Inhaler [Ventolin Hfa Inhaler] 2 puff INHALATION RT-Q4H PRN PRN Reason: Shortness Of Breath Albuterol Nebulized [Ventolin Nebulized] 2.5 mg INHALATION RT-QID PRN PRN Reason: Shortness Of Breath Aspirin 81 mg PO BID tab Primidone [Mysoline] 50 mg PO HS tab Sennosides-Docusate Sodium [Senokot-S] 2 tab PO HS PRN PRN Reason: Constipation Apixaban [Eliquis] 5 mg PO BID 30 Days #60 tab Megestrol [Megace] 40 mg PO BID #60 tablet INSULIN ASPART (NovoLOG) [NovoLOG (formulary)] See Protocol SQ ACHS PRN MDD 10units PRN Reason: high blood sugar hydrOXYzine HCL [Atarax] 25 mg PO QID Gabapentin 600 mg PO BID Furosemide [Lasix] 60 mg PO DAILY Budesonide/Formoterol Fumarate [Symbicort 160-4.5 Mcg Inhaler] 1 puff INHALATION RT-BID allopurinoL [Zyloprim] 100 mg PO BID Pantoprazole [Protonix] 40 mg PO BID Ondansetron [Zofran] 4 mg PO Q12HR PRN PRN Reason: Nausea Atorvastatin [Lipitor] 10 mg PO HS Acetaminophen Tab [Tylenol] 650 mg PO Q6HR PRN tab PRN Reason: Fever And/ Or Pain Ferrous Sulfate [Iron (65 MG Elemental)] 325 mg PO DAILY #30 tab Metoprolol Succinate (ER) [Toprol XL] 50 mg PO DAILY Metoprolol Succinate (ER) [Toprol XL] 25 mg PO DAILY Hydroxychloroquine Sulfate [Plaquenil] 200 mg PO BID Insulin Detemir (Levemir) [Levemir] 35 unit SQ DAILY Discontinued Midodrine [ProAmatine] 5 mg PO AC-TID 30 Days #90 tab No Action predniSONE See Taper PO DIRECTED Discharge Medication List FLUoxetine HCL [PROzac] 20 mg PO BID 01/09/17 [History] Montelukast [Singulair] 10 mg PO DAILY 01/09/17 [History] gemfibroziL [Lopid] 600 mg PO BID 01/09/17 [History] Albuterol Inhaler [Ventolin Hfa Inhaler] 2 puff INHALATION RT-Q4H PRN 01/14/17 [History] Albuterol Nebulized [Ventolin Nebulized] 2.5 mg INHALATION RT-QID PRN 01/14/17 [History] allopurinoL [Zyloprim] 100 mg PO BID 01/21/22 [History] Atorvastatin [Lipitor] 10 mg PO HS 02/15/22 [History] Ondansetron [Zofran] 4 mg PO Q12HR PRN 02/15/22 [History] Pantoprazole [Protonix] 40 mg PO BID 02/15/22 [History] Acetaminophen Tab [Tylenol] 650 mg PO Q6HR PRN tab 03/28/22 [Rx] Aspirin 81 mg PO BID tab 03/28/22 [Rx] Ferrous Sulfate [Iron (65 MG Elemental)] 325 mg PO DAILY #30 tab 03/28/22 [Rx] Primidone [Mysoline] 50 mg PO HS tab 03/28/22 [Rx] Sennosides-Docusate Sodium [Senokot-S] 2 tab PO HS PRN 04/02/22 [History] Apixaban [Eliquis] 5 mg PO BID 30 Days #60 tab 04/10/22 [Rx] Megestrol [Megace] 40 mg PO BID #60 tablet 04/10/22 [Rx] Budesonide/Formoterol Fumarate [Symbicort 160-4.5 Mcg Inhaler] 1 puff INHALATION RT-BID 04/13/22 [History] Furosemide [Lasix] 60 mg PO DAILY 04/13/22 [History] Gabapentin 600 mg PO BID 04/13/22 [History] Hydroxychloroquine Sulfate [Plaquenil] 200 mg PO BID 04/13/22 [History] INSULIN ASPART (NovoLOG) [NovoLOG (formulary)] See Protocol SQ ACHS PRN MDD 10units 04/13/22 [History] Insulin Detemir (Levemir) [Levemir] 35 unit SQ DAILY 04/13/22 [History] Metoprolol Succinate (ER) [Toprol XL] 25 mg PO DAILY 04/13/22 [History] Metoprolol Succinate (ER) [Toprol XL] 50 mg PO DAILY 04/13/22 [History] hydrOXYzine HCL [Atarax] 25 mg PO QID 04/13/22 [History] Benzonatate [Tessalon Perles] 100 mg PO TID PRN #20 cap 04/16/22 [Rx] Ipratropium-Albuterol Nebulize [Duoneb 0.5 mg-3 mg/3 ml Soln] 3 ml INHALATION RT-QID 30 Days #120 each 04/16/22 [Rx] Ipratropium-Albuterol Nebulize [Duoneb 0.5 mg-3 mg/3 ml Soln] 3 ml INHALATION RT-QID PRN each 04/16/22 [Rx] Oseltamivir 6Mg/ml Oral Susp [Tamiflu] 30 mg PO BID 3 Days #5 each 04/16/22 [Rx] predniSONE See Taper PO DIRECTED 04/16/22 [History] Follow up Appointment(s)/Referral(s): Trudy Sparks MD [STAFF PHYSICIAN] - 05/14/22 9:40 am Fela Alicea MD [Primary Care Provider] - 04/18/22 10:30 am Yakov Hodge DO [Doctor of Osteopathic Medicine] - 05/13/22 2:15 pm (The office will call you if they can get you in before that date.) [facility], [NON-STAFF] - 1 Week Saúl Bradford MD [STAFF PHYSICIAN] - 04/26/22 8:30 am () Ambulatory/Diagnostic Orders: Basic Metabolic Panel [LAB.AMB] Location: None Selected Complete Blood Count w/diff [LAB.AMB] Time Frame: 3 Days, Location: None Selected Patient Instructions/Handouts: Benzonatate (By mouth), Prednisone (By mouth), Ipratropium/Albuterol (By breathing), Oseltamivir (By mouth), Heart Failure (DC), Asthma (DC), Influenza (ED) Activity/Diet/Wound Care/Special Instructions: Activity Limited until follow-up Follow-up with primary care provider on discharge Follow-up nephrology outpatient Follow-up with oncology/radiation oncology outpatient Follow-up pulmonary outpatient Recommend repeat labs in the next few days Continue the prednisone taper and Tamiflu until finished Continue with breathing treatments along with inhalers Discharge Disposition: HOME WITH HOME HEALTH SERVICES
--- NOTE | 2022-04-19 22:35 | P.PN ---
Subjective Progress Note Date: 04/16/22 Principal diagnosis: Acute influenza A Patient is a 56-year-old female with multiple comorbidities including diabetes mellitus type 2 hypertension rheumatoid arthritis chronic kidney disease diastolic congestive heart failure and chronic bronchial asthma recently did have left hip fracture s/p operative repair patient is presenting to the ER for evaluation of increasing shortness of breath cough and has been diagnosed with acute influenza. On today's evaluation that is 04/16/2022, the patient remains to be afebrile, the patient is breathing comfortably on nasal cannula oxygen, the patient denies having any chest pain continued have a cough but not bring up any sputum no abdominal pain or any diarrhea Objective - Vital Signs Vital signs: Vital Signs Temp 98.1 F 04/16/22 07:30 Pulse 80 04/16/22 11:04 Resp 18 04/16/22 07:30 BP 126/69 04/16/22 07:30 Pulse Ox 95 04/16/22 07:30 FiO2 Intake & Output 04/15/22 04/16/22 04/16/22 18:59 06:59 18:59 Intake Total 740 Balance 740 Weight 95.254 kg Intake: Oral 740 Other: Voiding Method External Catheter Bedside Commode Bedside Commode # Voids 3 2 1 - Exam GENERAL DESCRIPTION: A middle-age female up in the chair in no distress RESPIRATORY SYSTEM: Unlabored breathing , decreased breath sounds at bases HEART: S1 S2 regular rate and rhythm , ABDOMEN: Soft , no tenderness EXTREMITIES: Diffuse swelling to the leg no redness - Labs CBC & Chem 7: 04/16/22 06:57 04/16/22 06:57 Labs: Abnormal Lab Results - Last 24 Hours (Table) 04/15/22 04/15/22 04/15/22 Range/Units 11:24 17:16 20:13 WBC (4.50-10.00) X 10*3/uL RBC (4.10-5.20) X 10*6/uL Hgb (12.0-15.0) g/dL Hct (37.2-46.3) % MCHC (32.0-37.0) g/dL RDW (11.5-14.5) % BUN (9.0-27.0) mg/dL Creatinine (0.6-1.5) mg/dL Est GFR (CKD-EPI)AfAm (60.0-200.0) Est GFR (CKD-EPI)NonAf (60.0-200.0) POC Glucose (mg/dL) 206 H 223 H 238 H (70-110) mg/dL 04/16/22 04/16/22 04/16/22 Range/Units 06:57 06:57 07:26 WBC 4.01 L (4.50-10.00) X 10*3/uL RBC 2.86 L (4.10-5.20) X 10*6/uL Hgb 7.9 L (12.0-15.0) g/dL Hct 26.9 L (37.2-46.3) % MCHC 29.4 L (32.0-37.0) g/dL RDW 16.3 H (11.5-14.5) % BUN 32.0 H (9.0-27.0) mg/dL Creatinine 1.8 H (0.6-1.5) mg/dL Est GFR (CKD-EPI)AfAm 36.1 L (60.0-200.0) Est GFR (CKD-EPI)NonAf 31.1 L (60.0-200.0) POC Glucose (mg/dL) 126 H (70-110) mg/dL Assessment and Plan (1) Influenza A Status: Acute Code(s): J10.1 - FLU DUE TO OTH IDENT INFLUENZA VIRUS W OTH RESP MANIFEST SNOMED Code(s): 062035426 Plan: 1patient presented to hospital with increasing shortness of breath which is likely multifactorial possible component of diastolic heart failure patient also tested positive for acute influenza possibly playing a role however the patient not running any fever did not have elevated white count clinic suspicious with low for a secondary bacterial pneumonia. 2patient seemed to have shown clinical improvement and will continue with Tamiflu to finish a 5-day course of therapy. Time with Patient: Less than 30
== END 2022-04-16 13:52 | disposition home health service (06) ==
LOC: EC 18:56 → 5NMEDONC 20:56
PROVIDERS: ADMIT Internal Medicine; ATTEND Internal Medicine
DX: J10.1 Influenza due to other identified influenza virus with other respiratory manifestations (principal); J96.11 Chronic respiratory failure with hypoxia; C54.1 Malignant neoplasm of endometrium; R00.0 Tachycardia, unspecified; M06.9 Rheumatoid arthritis, unspecified; M32.9 Systemic lupus erythematosus, unspecified; Z99.81 Dependence on supplemental oxygen; Z85.6 Personal history of leukemia; Z20.822 Contact with and (suspected) exposure to COVID-19; E05.00 Thyrotoxicosis with diffuse goiter without thyrotoxic crisis or storm; F41.9 Anxiety disorder, unspecified; Z86.718 Personal history of other venous thrombosis and embolism; M10.9 Gout, unspecified; Z87.442 Personal history of urinary calculi; J45.901 Unspecified asthma with (acute) exacerbation; I13.0 Hypertensive heart and chronic kidney disease with heart failure and stage 1 through stage 4 chronic kidney disease, or unspecified chronic kidney disease; E11.22 Type 2 diabetes mellitus with diabetic chronic kidney disease; N18.30 Chronic kidney disease, stage 3 unspecified; I50.33 Acute on chronic diastolic (congestive) heart failure; E11.65 Type 2 diabetes mellitus with hyperglycemia; D63.1 Anemia in chronic kidney disease; I82.A11 Acute embolism and thrombosis of right axillary vein; E66.01 Morbid (severe) obesity due to excess calories; Z68.31 Body mass index [BMI] 31.0-31.9, adult; Z91.14 Patient's other noncompliance with medication regimen; Z98.890 Other specified postprocedural states; Z82.49 Family history of ischemic heart disease and other diseases of the circulatory system; Z83.3 Family history of diabetes mellitus; Z79.4 Long term (current) use of insulin; Z79.899 Other long term (current) drug therapy; Z79.82 Long term (current) use of aspirin; Z79.01 Long term (current) use of anticoagulants; Z79.51 Long term (current) use of inhaled steroids; Z88.1 Allergy status to other antibiotic agents; Z88.5 Allergy status to narcotic agent; Z88.2 Allergy status to sulfonamides; Z88.7 Allergy status to serum and vaccine; Z88.8 Allergy status to other drugs, medicaments and biological substances
CPT/HCPCS: 96374; 96375; 99285; 36415; 94640 ×6; 93005; 83880; 80053 ×2; 80048 ×2; 82150; 83690; 85025 ×3; 85610; 85730; 87636; 71046; G0378 ×6; J2270 ×3; J1940; J2405; S0179 ×3; J7512 ×3; C9113 ×2

== ENCOUNTER 2022-04-16 19:21 | Observation (INO) | payer MEDICARE ==
--- NOTE | 2022-04-16 20:52 | ED ---
General Adult HPI - General Chief complaint: Medical Clearance Stated complaint: Wellness Check, Mental Health Time Seen by Provider: 04/16/22 20:23 Source: patient, police, RN notes reviewed Mode of arrival: EMS Limitations: physical limitation - History of Present Illness Initial comments: Patient is a pleasant 56-year-old female presenting by EMS with police escort. There is concerned regarding patient's ability to take care of herself. Patient was recently hospitalized vomiting and diarrhea. Patient had will check today. Patient is unable to take care of herself. Patient is unable to use the restroom or make it to the restroom. Patient is not able to feed herself. Patient did have hip surgery done a couple of weeks ago. Patient states symptoms are not getting worse. Patient denies any recent hip injury and refuses hip x-rays. - Related Data Home Medications Medication Instructions Recorded Confirmed FLUoxetine HCL [PROzac] 20 mg PO BID 01/09/17 04/13/22 Montelukast [Singulair] 10 mg PO DAILY 01/09/17 04/13/22 gemfibroziL [Lopid] 600 tab PO BID 01/09/17 04/13/22 Albuterol Inhaler [Ventolin Hfa 2 puff INHALATION RT-Q4H PRN 01/14/17 04/13/22 Inhaler] Albuterol Nebulized [Ventolin 2.5 mg INHALATION RT-QID PRN 01/14/17 04/13/22 Nebulized] allopurinoL [Zyloprim] 100 mg PO BID 01/21/22 04/13/22 Atorvastatin [Lipitor] 10 mg PO HS 02/15/22 04/13/22 Ondansetron [Zofran] 4 mg PO Q12HR PRN 02/15/22 04/13/22 Pantoprazole [Protonix] 40 mg PO BID 02/15/22 04/13/22 Sennosides-Docusate Sodium 2 tab PO HS PRN 04/02/22 04/13/22 [Senokot-S] Budesonide/Formoterol Fumarate 1 puff INHALATION RT-BID 04/13/22 04/13/22 [Symbicort 160-4.5 Mcg Inhaler] Furosemide [Lasix] 60 mg PO DAILY 04/13/22 04/13/22 Gabapentin 600 mg PO BID 04/13/22 04/13/22 Hydroxychloroquine Sulfate 200 mg PO BID 04/13/22 04/13/22 [Plaquenil] INSULIN ASPART (NovoLOG) [NovoLOG See Protocol SQ ACHS PRN MDD 04/13/22 04/13/22 (formulary)] 10units Insulin Detemir (Levemir) [Levemir] 35 unit SQ DIRECTED 04/13/22 04/13/22 Metoprolol Succinate (ER) [Toprol 25 mg PO DAILY 04/13/22 04/13/22 XL] Metoprolol Succinate (ER) [Toprol 50 mg PO DAILY 04/13/22 04/13/22 XL] hydrOXYzine HCL [Atarax] 25 mg PO QID 04/13/22 04/13/22 Previous Rx's Medication Instructions Recorded Acetaminophen Tab [Tylenol] 650 mg PO Q6HR PRN tab 03/28/22 Aspirin 81 mg PO BID tab 03/28/22 Ferrous Sulfate [Iron (65 MG 325 mg PO DAILY #30 tab 03/28/22 Elemental)] Primidone [Mysoline] 50 mg PO HS tab 03/28/22 Apixaban [Eliquis] 5 mg PO BID 30 Days #60 tab 04/10/22 Megestrol [Megace] 40 mg PO BID #60 tablet 04/10/22 Benzonatate [Tessalon Perles] 100 mg PO TID PRN #20 cap 04/16/22 Ipratropium-Albuterol Nebulize 3 ml INHALATION RT-QID 30 Days 04/16/22 [Duoneb 0.5 mg-3 mg/3 ml Soln] #120 each Ipratropium-Albuterol Nebulize 3 ml INHALATION RT-QID PRN each 04/16/22 [Duoneb 0.5 mg-3 mg/3 ml Soln] Oseltamivir 6Mg/ml Oral Susp 30 mg PO BID 3 Days #5 each 04/16/22 [Tamiflu] predniSONE 10 mg PO DIRECTED #30 tab 04/16/22 Allergies Allergy/AdvReac Type Severity Reaction Status Date / Time ciprofloxacin [From Cipro] Allergy Swelling Verified 04/16/22 19:32 diphenhydramine Allergy Swelling Verified 04/16/22 19:32 [From Benadryl] iodine Allergy Swelling Verified 04/16/22 19:32 propoxyphene Allergy Swelling Verified 04/16/22 19:32 [From Darvocet-N] red dye Allergy Swelling Verified 04/16/22 19:32 sulfacetamide Allergy Swelling Verified 04/16/22 19:32 [From Sulfamide] yellow dye Allergy Swelling Verified 04/16/22 19:32 FLU VACCINE? Allergy Unknown Uncoded 04/16/22 19:32 Review of Systems ROS Statement: Those systems with pertinent positive or pertinent negative responses have been documented in the HPI. ROS Other: All systems not noted in ROS Statement are negative. Constitutional: Denies: fever Eyes: Denies: eye pain ENT: Denies: ear pain Respiratory: Reports: cough Cardiovascular: Denies: chest pain Endocrine: Reports: fatigue Gastrointestinal: Denies: abdominal pain Genitourinary: Denies: dysuria Musculoskeletal: Reports: as per HPI Neurological: Reports: as per HPI Past Medical History Past Medical History: Cancer, Diabetes Mellitus, Deep Vein Thrombosis (DVT), Hyp ertension, Renal Disease, Rheumatoid Arthritis (RA), Thyroid Disorder Additional Past Medical History / Comment(s): O2 @ 4L. SLE LUPUS. STAGE 3 KIDNEY DISEASE. Leukemia, GRAVES DZ , kidney stones, gout, Uterine cancer (recent diagnosis, no treatment yet) History of Any Multi-Drug Resistant Organisms: Other MDRO Past Surgical History: No Surgical Hx Reported Additional Past Surgical History / Comment(s): BILATERAL ARTHROSCOPY KNEES. D & C (MISCARRIAGES). Past Anesthesia/Blood Transfusion Reactions: No Reported Reaction Past Psychological History: Anxiety Smoking Status: Never smoker Past Alcohol Use History: None Reported Past Drug Use History: None Reported - Past Family History Mother Family Medical History: Congestive Heart Failure (CHF), Diabetes Mellitus Father Family Medical History: Congestive Heart Failure (CHF), Dialysis, Hypertension General Exam Limitations: physical limitation General appearance: alert, in no apparent distress Head exam: Present: atraumatic Eye exam: Present: normal appearance Neck exam: Present: normal inspection Respiratory exam: Present: rhonchi Cardiovascular Exam: Present: regular rate, normal rhythm GI/Abdominal exam: Present: soft. Absent: tenderness Extremities exam: Present: normal inspection Neurological exam: Present: alert Psychiatric exam: Present: normal affect, normal mood Skin exam: Present: normal color Course Vital Signs 04/16/22 19:25 Temperature 97.4 F L Pulse Rate 78 Respiratory 18 Rate Blood Pressure 172/83 O2 Sat by Pulse 94 L Oximetry EKG Findings - EKG Results: EKG: interpreted by ERMD, sinus rhythm, normal axis, normal QRS, normal ST/T Medical Decision Making - Medical Decision Making Patient will need admission for placement. Case was discussed with practitioner Kristy, who will admit covering for Dr. Shelley, who admits for Dr. Sousa Was pt. sent in by a medical professional or institution? @ -Patient brought in following well visit today Did you speak to anyone other than the patient for history? @ -n Did you review nursing and triage notes? @ -Gas and agree Were old charts reviewed? @ -n Differential Diagnosis? @ -Differential Weakness: Hypoglycemia, shock, sepsis, hyponatremia, anemia, infection, NH, ETOH, adverse medicine reaction, overdose, stroke, this is not meant to be an all-inclusive list. EKG interpreted by me (3pts min.)? @ -y X-rays interpreted by me (1pt min.)? @ -Gas, chest x-ray CT interpreted by me (1pt min.)? @ -[none] U/S interpreted by me (1pt. min.)? @ -[none] What testing was considered but not performed? (CT, X-rays, U/S, labs)? Why? @ n What meds were considered but not given? Why? @ -n Did you discuss the management of the patient with other professionals? @ -Spoke with practitioner Kristy Did you reconcile home meds? @ -Will review in order to complete Was smoking cessation discussed for >3mins.? @ -[none] Was critical care preformed (if so, how long)? @ -[none] Were there social determinants of health that impacted care today? How? (Homelessness, low income, unemployed, alcoholism, drug addiction, transportation, low edu. Level, literacy, decrease access to med. care, fci, rehab)? @ -Patient unable to take care of herself at home, lives alone Was there de-escalation of care discussed even if they declined? (Discuss DNR or withdrawal of care, Hospice)? @ -n What co-morbidities impacted this encounter? (DM, HTN, Smoking, COPD, CAD, Cancer, CVA, Hep., AIDS, mental health diagnosis, sleep apnea, morbid obesity)? @ -Multiple comorbidities, recent hip fracture Was patient admitted / discharged? @ -Admitted Undiagnosed new problem with uncertain prognosis? @ -[none] Drug Therapy requiring intensive monitoring for toxicity (Heparin, Nitro, Insulin, Cardizem)? @ -[none] Were any procedures done? @ -[none] Diagnosis/symptom? @ -General weakness Acute, or Chronic, or Acute on Chronic? @ -Acute on chronic Uncomplicated (without systemic symptoms) or Complicated (systemic symptoms)? @ -Uncomplicated Side effects of treatment? @ -[none] Exacerbation, Progression, or Severe Exacerbation] @ -[no] Poses a threat to life or bodily function? @ -[no] - Lab Data Result diagrams: 04/16/22 21:14 04/16/22 21:14 Lab Results 04/16/22 04/16/22 04/16/22 Range/Units 21:14 21:14 21:14 WBC 5.2 (3.8-10.6) k/uL RBC 3.31 L (3.80-5.40) m/uL Hgb 9.3 L (11.4-16.0) gm/dL Hct 30.0 L (34.0-46.0) % MCV 90.5 (80.0-100.0) fL MCH 28.0 (25.0-35.0) pg MCHC 30.9 L (31.0-37.0) g/dL RDW 15.8 H (11.5-15.5) % Plt Count 302 (150-450) k/uL MPV 8.6 Neutrophils % 80 % Lymphocytes % 13 % Monocytes % 5 % Eosinophils % 0 % Basophils % 1 % Neutrophils # 4.2 (1.3-7.7) k/uL Lymphocytes # 0.7 L (1.0-4.8) k/uL Monocytes # 0.3 (0-1.0) k/uL Eosinophils # 0.0 (0-0.7) k/uL Basophils # 0.0 (0-0.2) k/uL Hypochromasia Marked Sodium 139 (137-145) mmol/L Potassium 4.8 (3.5-5.1) mmol/L Chloride 106 (98-107) mmol/L Carbon Dioxide 24 (22-30) mmol/L Anion Gap 9 mmol/L BUN 38 H (7-17) mg/dL Creatinine 1.70 H (0.52-1.04) mg/dL Est GFR (CKD-EPI)AfAm 39 (>60 ml/min/1.73 sqM) Est GFR (CKD-EPI)NonAf 34 (>60 ml/min/1.73 sqM) Glucose 260 H (74-99) mg/dL Calcium 8.7 (8.4-10.2) mg/dL Total Bilirubin 0.4 (0.2-1.3) mg/dL AST 35 (14-36) U/L ALT 24 (4-34) U/L Alkaline Phosphatase 72 (38-126) U/L Total Protein 6.6 (6.3-8.2) g/dL Albumin 3.8 (3.5-5.0) g/dL Urine Opiates Screen Detected H (NotDetected) Ur Oxycodone Screen Not Detected (NotDetected) Urine Methadone Screen Not Detected (NotDetected) Ur Propoxyphene Screen Not Detected (NotDetected) Ur Barbiturates Screen Detected H (NotDetected) U Tricyclic Antidepress Not Detected (NotDetected) Ur Phencyclidine Scrn Not Detected (NotDetected) Ur Amphetamines Screen Not Detected (NotDetected) U Methamphetamines Scrn Not Detected (NotDetected) U Benzodiazepines Scrn Not Detected (NotDetected) Urine Cocaine Screen Not Detected (NotDetected) U Marijuana (THC) Screen Not Detected (NotDetected) Serum Alcohol <10 mg/dL - Radiology Data Interpreted by me: Chest x-ray shows cardiomegaly. There is improvement of infiltrate and edema Disposition Clinical Impression: Weakness Disposition: ADMITTED IP TO THIS HOSP Is patient prescribed a controlled substance at d/c from ED?: No Referrals: Fela Alicea MD [Primary Care Provider] - 1-2 days Time of Disposition: 22:03
[2022-04-16 21:37] LABS: Basophils % (A) 1 %; Eosinophils % (A) 0 %; HGB 9.3 gm/dL (11.4-16.0); Hypochromasia Marked; Lymphocytes # (A) 0.7 k/uL (1.0-4.8); Lymphocytes % (A) 13 %; MCHC 30.9 g/dL (31.0-37.0); MCV 90.5 fL (80.0-100.0); Mean Platelet Volume 8.6; Monocytes # (A) 0.3 k/uL (0-1.0); Monocytes % (A) 5 %; Neutrophils # (A) 4.2 k/uL (1.3-7.7); Neutrophils % (A) 80 %; Platelet Count 302 k/uL (150-450); RBC 3.31 m/uL (3.80-5.40); RDW 15.8 % (11.5-15.5); WBC 5.2 k/uL (3.8-10.6)
[2022-04-16 21:38] LABS: ALT 24 U/L (4-34); AST 35 U/L (14-36); African American GFR (CKD) 39 (>60 ml/min/1.73 sqM); Albumin 3.8 g/dL (3.5-5.0); Alcohol <10 mg/dL; Alkaline Phosphatase 72 U/L (38-126); Anion Gap 9 mmol/L; Blood Urea Nitrogen 38 mg/dL (7-17); Calcium 8.7 mg/dL (8.4-10.2); Carbon Dioxide 24 mmol/L (22-30); Chloride 106 mmol/L (98-107); Glucose 260 mg/dL (74-99); Non-African American GFR(CKD) 34 (>60 ml/min/1.73 sqM); Potassium 4.8 mmol/L (3.5-5.1); Sodium 139 mmol/L (137-145); Total Bilirubin 0.4 mg/dL (0.2-1.3); Total Protein 6.6 g/dL (6.3-8.2)
[2022-04-16 21:40] LABS: Amphetamine Screen,Urine Not Detected (NotDetected); Barbiturate Screen,Urine Detected (NotDetected); Benzodiazepines Screen,Urine Not Detected (NotDetected); Cocaine Screen,Urine Not Detected (NotDetected); Methadone Screen, Urine Not Detected (NotDetected); Opiate Screen,Urine Detected (NotDetected); Oxycodone Screen, Urine Not Detected (NotDetected); Phencyclidine Screen,Urine Not Detected (NotDetected); Tricyclic Antidepressant,Urine Not Detected (NotDetected); Urn Cannabinoid Scrn Not Detected (NotDetected)
--- NOTE | 2022-04-16 21:49 | XR ---
EXAMINATION TYPE: XR chest 2V DATE OF EXAM: 04/16/2022 COMPARISON: 04/13/2022 HISTORY: 2 views TECHNIQUE: FINDINGS: Heart is enlarged. There is some mild pulmonary congestion. There is some infiltrate right lung base. No definite heart failure. Bony thorax is intact IMPRESSION: There is some right lower lobe infiltrate and right pleural effusion which is slightly im proved compared to old exam. There is improvement in the pulmonary vascular congestion.
[2022-04-16] MEDS ORDERED: NALOXONE 0.4 MG/ML 1 ML VIAL IV PRN (22:04)
[2022-04-16] MEDS: SODIUM CHLORIDE 0.9% 1,000 ML IV SCH (22:52)
[2022-04-16] MEDS ORDERED: IPRATROPIUM-ALBUTEROL 3 ML NEB INHALATION PRN (23:46)
[2022-04-16] MEDS ORDERED: ALBUTEROL NEBULIZED 2.5 MG/3 ML INHALATION PRN (23:46)
[2022-04-16] MEDS ORDERED: HYDROcodone/APAP 5-325MG 1 EACH TAB PO ONE (23:59)
[2022-04-17] MEDS ORDERED: hydrOXYzine HCL 25 MG TAB PO PRN
[2022-04-17 00:06] LABS: Glucose,Whole Blood 231 mg/dL (70-110)
[2022-04-17] MEDS: INSULIN ASPART (NovoLOG) 100 UNIT/ML VIAL SQ SCH ×5 (00:27→19:49)
[2022-04-17] MEDS ORDERED: ONDANSETRON 4 MG TAB PO PRN (00:30)
[2022-04-17] MEDS ORDERED: ACETAMINOPHEN TAB 325 MG TAB PO PRN (01:00)
[2022-04-17] MEDS: PANTOPRAZOLE 40 MG TABLET PO SCH ×3 (01:07→19:48)
[2022-04-17] MEDS: GABAPENTIN 300 MG CAP PO SCH ×3 (01:07→19:48)
[2022-04-17] MEDS: ASPIRIN 81 MG PO SCH ×3 (01:07→19:48)
[2022-04-17] MEDS: BENZONATATE 100 MG CAP PO PRN ×3 (01:07→17:47)
[2022-04-17] MEDS: APIXABAN 5 MG TAB PO SCH ×3 (01:07→19:48)
[2022-04-17] MEDS: PRIMIDONE 50 MG TAB PO SCH ×2 (03:17→19:49)
[2022-04-17] MEDS: allopurinoL 100 MG TAB PO SCH ×3 (03:17→19:48)
[2022-04-17] MEDS: FLUoxetine HCL 20 MG CAP PO SCH ×3 (03:17→19:48)
[2022-04-17] MEDS: HYDROXYCHLOROQUINE SULFATE 200 MG TAB PO SCH ×3 (04:47→19:51)
[2022-04-17 06:31] LABS: Albumin 3.7 g/dL (3.5-5.0); Calcium 8.3 mg/dL (8.4-10.2); Potassium 4.2 mmol/L (3.5-5.1); Total Bilirubin 0.4 mg/dL (0.2-1.3); Total Protein 6.3 g/dL (6.3-8.2)
[2022-04-17 06:33] LABS: Basophils % (A) 0 %; Eosinophils % (A) 1 %; HCT 28.9 % (34.0-46.0); Hypochromasia Marked; Lymphocytes # (A) 1.4 k/uL (1.0-4.8); Lymphocytes % (A) 27 %; MCH 28.8 pg (25.0-35.0); MCHC 31.1 g/dL (31.0-37.0); MCV 92.4 fL (80.0-100.0); Mean Platelet Volume 8.6; Monocytes # (A) 0.3 k/uL (0-1.0); Monocytes % (A) 5 %; Neutrophils # (A) 3.5 k/uL (1.3-7.7); Neutrophils % (A) 66 %; Platelet Count 272 k/uL (150-450); RBC 3.13 m/uL (3.80-5.40); RDW 15.4 % (11.5-15.5); WBC 5.3 k/uL (3.8-10.6)
[2022-04-17] MEDS: IPRATROPIUM-ALBUTEROL 3 ML NEB INHALATION SCH ×4 (08:32→20:50)
[2022-04-17] MEDS: FENOFIBRATE 160 MG TAB PO SCH (08:37)
[2022-04-17 08:38] LABS: Glucose,Whole Blood 145 mg/dL (70-110)
[2022-04-17] MEDS: SODIUM CHLORIDE 0.9% 1,000 ML IV SCH (11:43)
[2022-04-17 12:00] LABS: Glucose,Whole Blood 190 mg/dL (70-110)
[2022-04-17] MEDS: MEGESTROL 40 MG TAB PO SCH ×2 (12:21→19:51)
--- NOTE | 2022-04-17 13:23 | P.HPIM ---
History of Present Illness H&P Date: 04/17/22 This is a 56-year-old female who presented to the emergency department via police escort and EMS as she was just discharged yesterday although sister and family were concerned she is not able to care for herself. Patient has had multiple hospitalizations since her left hip fracture a month ago with surgical repair and initially went to [facility] and came back with concerns for DVT. Patient is maintained on anticoagulation and followed by hematology outpatient. Patient also has been seen by radiation oncology along with oncology for her endometrial cancer and reports she wants to follow-up outpatient when she builds more strength. Patient subsequently came back to the hospital a few days ago with increasing shortness of breath with nausea and vomiting was found to be flu A+ and started on Tamiflu. Patient was seen and evaluated by pulmonary and infectious disease maintained on Tamiflu and cleared for discharge. Patient has been progressively becoming more weak although was doing okay with a walker and insistent on going home with rehab in the outpatient setting and refusing to go to an ECF. Patient was admitted again last night for weakness and is now agreeable for rehab. Patient had been continued on Tamiflu to complete 1 more dose and also on DuoNeb treatments along with a prednisone taper. Patient to follow-up with nephrology outpatient as well. Chest x-ray in the ER showed some right lower lobe infiltrate and right pleural effusion which is slightly improved compared to her previous and improvement in pulmonary vascular congestion. Patient is maintained on oral Lasix and does have a heart failure history and will continue. EKG showing sinus rhythm. Kidney functions stable and currently elevated. Review Of Systems: Constitutional: No fever, no chills, no night sweats. No weight change. No weakness, fatigue or lethargy. No daytime sleepiness. EENT: No headache. No blurred vision or double vision, no loss of vision. No loss of Hearing, no ringing in the ears, no dizziness. No nasal drainage or congestion. No epistaxis. No sore throat. Lungs: Reports chronic shortness of breath, cough, no sputum production. rePorts wheezing. Cardiovascular: No chest pain, no lower extremity edema. No palpitations. No paroxysmal nocturnal dyspnea. No orthopnea. No lightheadedness or dizziness. No syncopal episodes. Abdominal: No abdominal pain. No nausea, vomiting. No diarrhea. No constipation. No bloody or tarry stools.. No loss of appetite. Genitourinary: No dysuria, increased frequency, urgency. No urinary retention. Musculoskeletal: Reports myalgias. Reports muscle weakness, reports gait dysfunction, ports recent falls. No back pain. No neck pain. Integumentary: No wounds, no lesions. No rash or pruritus. No unusual bruising. No change in hair or nails. Neurologic: No aphasia. No facial droop. No change in mentation. No head injury. No headache. No paralysis. No paresthesia. Psychiatric: Reports chronic depression. No anxiety. No mood swings. Endocrine: No abnormal blood sugars. No weight change. No excessive sweating or thirst. No cold intolerance. PHYSICAL EXAMINATION: GENERAL: The patient is alert and oriented x4, Well developed, well nourished. Morbidly obese HEENT: Pupils are round and equally reacting to light. EOMI. no scleral icterus. No conjunctival pallor. Normocephalic, atraumatic. No pharyngeal erythema. No thyromegaly. CARDIOVASCULAR: S1 and S2 muffled PULMONARY: diminished breath sounds bilaterally with some scattered rhonchi and minimal faint wheezing mostly tracheal noted. ABDOMEN: soft. Nontender on exam. obese. non-distended, normoactive bowel sounds. No palpable organomegaly. MUSCULOSKELETAL: No joint swelling or deformity. EXTREMITIES: No cyanosis, clubbing, or pedal edema. Her life edema noted throughout NEUROLOGICAL: Gross neurological examination did not reveal any focal deficits. Diffuse weakness SKIN: No rashes. Assessment: Weakness with gait dysfunction Recent left hip fracture with repair History of severe bronchial asthma chronically wears 4 L outpatient Anemia of chronic disease History of endometrial adenocarcinoma with no treatment yet has to follow-up outpatient Hypertension Recent diagnosis of DVT of the right subclavian and right axillary vein, maintained on oral anticoagulant rDiabetes mellitus, type II, insulin-dependent uncontrolled with hyperglycemiaonic hypoxic respiratory failure secondary to severe bronchial asthma History of lupus history of anxiety history of heart failure with preserved EF, most recent EF showing 55-60% chronic kidney disease stage IIIB Recent admission for influenza A with nausea and vomiting and diarrhea GI prophylaxis DVT prophylaxis Full code Plan: Recommend to continue with current medications and will resume home medications. PT/OT therapy to evaluate the patient in case management consulted to expedite possible ECF. Patient is now agreeable as she realizes she is not able to take care of herself. family is overly concerned that she is progressively becoming more weak and unable to take care of herself. Case management working on discharge planning with possible discharge to [facility] today. Would recommend outpatient follow-up with oncology and radiation oncology along with nephrology and pulmonary in the outpatient setting as discussed and instructed to for the patient yesterday during discharge. Due to multiple complex medical issues, prognosis is guarded. Possible discharge to [facility] today. The impression and plan of care has been dictated by Fabienne Fortune, nurse practitioner as directed. Dr. Karsten MD I have performed a history and examination and MDM of this patient, discussed the same with the dictator, and agree with the dictator's assessment and plan as written ,documented as a scribe. Based on total visit time, I have performed more than 50% of the visit. Any additional findings or plans will be noted. Past Medical History Past Medical History: Cancer, Diabetes Mellitus, Deep Vein Thrombosis (DVT), Hypertension, Renal Disease, Rheumatoid Arthritis (RA), Thyroid Disorder Additional Past Medical History / Comment(s): O2 @ 4L. SLE LUPUS. STAGE 3 KIDNEY DISEASE. Leukemia, GRAVES DZ , kidney stones, gout, Uterine cancer (recent diagnosis, no treatment yet) History of Any Multi-Drug Resistant Organisms: Other MDRO Past Surgical History: No Surgical Hx Reported Additional Past Surgical History / Comment(s): BILATERAL ARTHROSCOPY KNEES. D & C (MISCARRIAGES). Past Anesthesia/Blood Transfusion Reactions: No Reported Reaction Past Psychological History: Anxiety Smoking Status: Never smoker Past Alcohol Use History: None Reported Past Drug Use History: None Reported - Past Family History Mother Family Medical History: Congestive Heart Failure (CHF), Diabetes Mellitus Father Family Medical History: Congestive Heart Failure (CHF), Dialysis, Hypertension Medications and Allergies Home Medications Medication Instructions Recorded Confirmed Type FLUoxetine HCL [PROzac] 20 mg PO BID 01/09/17 04/16/22 History Montelukast [Singulair] 10 mg PO DAILY 01/09/17 04/16/22 History gemfibroziL [Lopid] 600 mg PO BID 01/09/17 04/16/22 History Albuterol Inhaler [Ventolin Hfa 2 puff INHALATION RT-Q4H PRN 01/14/17 04/16/22 History Inhaler] Albuterol Nebulized [Ventolin 2.5 mg INHALATION RT-QID PRN 01/14/17 04/16/22 History Nebulized] allopurinoL [Zyloprim] 100 mg PO BID 01/21/22 04/16/22 History Atorvastatin [Lipitor] 10 mg PO HS 02/15/22 04/16/22 History Ondansetron [Zofran] 4 mg PO Q12HR PRN 02/15/22 04/16/22 History Pantoprazole [Protonix] 40 mg PO BID 02/15/22 04/16/22 History Acetaminophen Tab [Tylenol] 650 mg PO Q6HR PRN tab 03/28/22 04/16/22 Rx Aspirin 81 mg PO BID tab 03/28/22 04/16/22 Rx Ferrous Sulfate [Iron (65 MG 325 mg PO DAILY #30 tab 03/28/22 04/16/22 Rx Elemental)] Primidone [Mysoline] 50 mg PO HS tab 03/28/22 04/16/22 Rx Sennosides-Docusate Sodium 2 tab PO HS PRN 04/02/22 04/16/22 History [Senokot-S] Apixaban [Eliquis] 5 mg PO BID 30 Days #60 tab 04/10/22 04/16/22 Rx Megestrol [Megace] 40 mg PO BID #60 tablet 04/10/22 04/16/22 Rx Budesonide/Formoterol Fumarate 1 puff INHALATION RT-BID 04/13/22 04/16/22 History [Symbicort 160-4.5 Mcg Inhaler] Furosemide [Lasix] 60 mg PO DAILY 04/13/22 04/16/22 History Gabapentin 600 mg PO BID 04/13/22 04/16/22 History Hydroxychloroquine Sulfate 200 mg PO BID 04/13/22 04/16/22 History [Plaquenil] INSULIN ASPART (NovoLOG) [NovoLOG See Protocol SQ ACHS PRN MDD 04/13/22 04/16/22 History (formulary)] 10units Insulin Detemir (Levemir) [Levemir] 35 unit SQ DAILY 04/13/22 04/16/22 History Metoprolol Succinate (ER) [Toprol 25 mg PO DAILY 04/13/22 04/16/22 History XL] Metoprolol Succinate (ER) [Toprol 50 mg PO DAILY 04/13/22 04/16/22 History XL] hydrOXYzine HCL [Atarax] 25 mg PO QID 04/13/22 04/16/22 History Benzonatate [Tessalon Perles] 100 mg PO TID PRN #20 cap 04/16/22 04/16/22 Rx Ipratropium-Albuterol Nebulize 3 ml INHALATION RT-QID 30 Days 04/16/22 04/16/22 Rx [Duoneb 0.5 mg-3 mg/3 ml Soln] #120 each Ipratropium-Albuterol Nebulize 3 ml INHALATION RT-QID PRN each 04/16/22 04/16/22 Rx [Duoneb 0.5 mg-3 mg/3 ml Soln] Oseltamivir 6Mg/ml Oral Susp 30 mg PO BID 3 Days #5 each 04/16/22 04/16/22 Rx [Tamiflu] predniSONE See Taper PO DIRECTED 04/16/22 04/16/22 History Allergies Allergy/AdvReac Type Severity Reaction Status Date / Time ciprofloxacin [From Cipro] Allergy Swelling Verified 04/16/22 22:31 diphenhydramine Allergy Swelling Verified 04/16/22 22:31 [From Benadryl] Influenza Virus Vaccines Allergy Unknown Verified 04/16/22 22:31 iodine Allergy Swelling Verified 04/16/22 22:31 propoxyphene Allergy Swelling Verified 04/16/22 22:31 [From Darvocet-N] red dye Allergy Swelling Verified 04/16/22 22:31 sulfacetamide Allergy Swelling Verified 04/16/22 22:31 [From Sulfamide] yellow dye Allergy Swelling Verified 04/16/22 22:31 Physical Exam Vitals: Vital Signs Temp Pulse Pulse Resp BP BP Pulse Ox 04/17/22 12:42 84 18 04/17/22 12:31 84 18 04/17/22 08:43 81 18 04/17/22 08:32 79 18 98 04/17/22 08:00 84 18 04/17/22 07:00 96.8 F L 84 126/63 93 L 04/17/22 03:15 97.2 F L 77 20 139/87 97 04/17/22 00:26 80 04/17/22 00:18 78 04/16/22 23:44 97.1 F L 82 20 148/92 99 04/16/22 19:25 97.4 F L 78 18 172/83 94 L Intake and Output 04/16/22 04/17/22 04/17/22 22:59 06:59 14:59 Intake Total 240 Output Total 600 Balance -600 240 Intake: Oral 240 Output: Urine 600 Other: Voiding Method Incontinent Incontinent External Catheter External Catheter Weight 142.882 kg 142.882 kg Results CBC & Chem 7: 04/17/22 05:36 04/17/22 05:36 Labs: Abnormal Lab Results - Last 24 Hours (Table) 04/16/22 04/16/22 04/16/22 Range/Units 21:14 21:14 21:14 RBC 3.31 L (3.80-5.40) m/uL Hgb 9.3 L (11.4-16.0) gm/dL Hct 30.0 L (34.0-46.0) % MCHC 30.9 L (31.0-37.0) g/dL RDW 15.8 H (11.5-15.5) % Lymphocytes # 0.7 L (1.0-4.8) k/uL BUN 38 H (7-17) mg/dL Creatinine 1.70 H (0.52-1.04) mg/dL Glucose 260 H (74-99) mg/dL POC Glucose (mg/dL) (70-110) mg/dL Calcium (8.4-10.2) mg/dL Urine Opiates Screen Detected H (NotDetected) Ur Barbiturates Screen Detected H (NotDetected) 04/16/22 04/17/22 04/17/22 Range/Units 23:57 05:36 05:36 RBC 3.13 L (3.80-5.40) m/uL Hgb 9.0 L (11.4-16.0) gm/dL Hct 28.9 L (34.0-46.0) % MCHC (31.0-37.0) g/dL RDW (11.5-15.5) % Lymphocytes # (1.0-4.8) k/uL BUN 38 H (7-17) mg/dL Creatinine 1.64 H (0.52-1.04) mg/dL Glucose 191 H (74-99) mg/dL POC Glucose (mg/dL) 231 H (70-110) mg/dL Calcium 8.3 L (8.4-10.2) mg/dL Urine Opiates Screen (NotDetected) Ur Barbiturates Screen (NotDetected) 04/17/22 04/17/22 Range/Units 08:36 11:57 RBC (3.80-5.40) m/uL Hgb (11.4-16.0) gm/dL Hct (34.0-46.0) % MCHC (31.0-37.0) g/dL RDW (11.5-15.5) % Lymphocytes # (1.0-4.8) k/uL BUN (7-17) mg/dL Creatinine (0.52-1.04) mg/dL Glucose (74-99) mg/dL POC Glucose (mg/dL) 145 H 190 H (70-110) mg/dL Calcium (8.4-10.2) mg/dL Urine Opiates Screen (NotDetected) Ur Barbiturates Screen (NotDetected) Microbiology - Last 24 Hours (Table) 04/17/22 01:09 Wound Culture - Preliminary Hip - Left Thrombosis Risk Factor Assmnt - Choose All That Apply Each Factor Represents 1 point: Abnormal pulmonary function (COPD), Obesity (BMI >25) Thrombosis Risk Factor Assessment Total Risk Factor Score: 2 Thrombosis Risk Factor Assessment Level: Low Risk
--- NOTE | 2022-04-17 13:42 | P.DS ---
Providers Date of admission: 04/16/22 22:04 Expected date of discharge: 04/17/22 Attending physician: Isabela Shelley Consults: 04/16/22 22:04 Consult Physician Routine Consulting Provider: Ronald Herrera Consult Reason/Comments: depression Do you want consulting provider notified?: Yes Primary care physician: Deanne Chahal [facility] Course: Final diagnosis Weakness with gait dysfunction Recent left hip fracture with repair History of severe bronchial asthma chronically wears 4 L outpatient Anemia of chronic disease History of endometrial adenocarcinoma with no treatment yet has to follow-up outpatient Hypertension Recent diagnosis of DVT of the right subclavian and right axillary vein, maintained on oral anticoagulant rDiabetes mellitus, type II, insulin-dependent uncontrolled with hyperglycemiaonic hypoxic respiratory failure secondary to severe bronchial asthma History of lupus history of anxiety history of heart failure with preserved EF, most recent EF showing 55-60% chronic kidney disease stage IIIB Recent admission for influenza A with nausea and vomiting and diarrhea GI prophylaxis DVT prophylaxis Full code Discharge disposition Patient is being discharged in a stable condition with guarded prognosis to [facility]. Patient will follow-up with Dr. Mckenzie in the outpatient setting upon discharge. Patient is to follow-up with nephrology, hematology, oncology, radiation oncology, primary care provider once discharged from [facility]. Total time taken is greater than 35 minutes. Hospital course This is a 56-year-old female who presented to the emergency department via police escort and EMS as she was just discharged yesterday although sister and family were concerned she is not able to care for herself. Patient has had multiple hospitalizations since her left hip fracture a month ago with surgical repair and initially went to [facility] and came back with concerns for DVT. Patient is maintained on anticoagulation and followed by hematology outpatient. Patient also has been seen by radiation oncology along with oncology for her endometrial cancer and reports she wants to follow-up outpatient when she builds more strength. Patient subsequently came back to the hospital a few days ago with increasing shortness of breath with nausea and vomiting was found to be flu A+ and started on Tamiflu. Patient was seen and evaluated by pulmonary and infectious disease maintained on Tamiflu and cleared for discharge. Patient has been progressively becoming more weak although was doing okay with a walker and insistent on going home with rehab in the outpatient setting and refusing to go to an ECF. Patient was admitted again last night for weakness and is now agreeable for rehab. Patient had been continued on Tamiflu to complete 1 more dose and also on DuoNeb treatments along with a prednisone taper. Patient to follow-up with nephrology outpatient as well. Chest x-ray in the ER showed some right lower lobe infiltrate and right pleural effusion which is slightly improved compared to her previous and improvement in pulmonary vascular congestion. Patient is maintained on oral Lasix and does have a heart failure history and will continue. EKG showing sinus rhythm. Kidney functions stable and currently elevated. Patient is now agreeable to rehab and has been accepted by [facility] in case management following working on discharge planning. Recommend continue with current medication regimen as prescribed and will need to complete a prednisone taper along with one more additional day of Tamiflu 30 mg twice daily to co mplete the course. Recommend DuoNeb treatments 4 times a day and when necessary and also her inhalers along with Lasix 60 mg daily. Recommend repeat CBC and BMP in the outpatient setting in the next 2-3 days. Patient with significant weakness status post her left hip needs aggressive therapy and recommend continued physical therapy for strength and mobility. Patient with diabetes and encouraged and recommended continue sliding scale and long-acting and Accu-Cheks before meals and at bedtime. Currently no reports of chest pain, shortness of breath, or palpitations. Patient is afebrile. No reports of nausea or vomiting and patient is tolerating diet. Patient will be going to [facility] on the [place] today. Guarded prognosis. Physical exam: GENERAL: The patient is alert and oriented x4, Well developed, well nourished. Morbidly obese HEENT: Pupils are round and equally reacting to light. EOMI. no scleral icterus. No conjunctival pallor. Normocephalic, atraumatic. No pharyngeal erythema. No thyromegaly. CARDIOVASCULAR: S1 and S2 muffled PULMONARY: diminished breath sounds bilaterally with some scattered rhonchi and minimal faint wheezing mostly tracheal noted. ABDOMEN: soft. Nontender on exam. obese. non-distended, normoactive bowel sounds. No palpable organomegaly. MUSCULOSKELETAL: No joint swelling or deformity. EXTREMITIES: No cyanosis, clubbing, or pedal edema. Her life edema noted throughout NEUROLOGICAL: Gross neurological examination did not reveal any focal deficits. Diffuse weakness SKIN: No rashes. Please refer to medication reconciliation sheet for a list of medications. The impression and plan of care has been dictated by Fabienne Fortune, Nurse Practitioner as directed. Dr. Karsten MD I have performed a history and examination and MDM of this patient, discussed the same with the dictator, and agree with the dictator's assessment and plan as written ,documented as a scribe. Based on total visit time, I have performed more than 50% of the visit. Patient Condition at Discharge: Fair Plan - Discharge Summary New Discharge Prescriptions: Continue Montelukast [Singulair] 10 mg PO DAILY gemfibroziL [Lopid] 600 mg PO BID FLUoxetine HCL [PROzac] 20 mg PO BID Albuterol Inhaler [Ventolin Hfa Inhaler] 2 puff INHALATION RT-Q4H PRN PRN Reason: Shortness Of Breath Albuterol Nebulized [Ventolin Nebulized] 2.5 mg INHALATION RT-QID PRN PRN Reason: Shortness Of Breath Aspirin 81 mg PO BID tab Primidone [Mysoline] 50 mg PO HS tab Sennosides-Docusate Sodium [Senokot-S] 2 tab PO HS PRN PRN Reason: Constipation Apixaban [Eliquis] 5 mg PO BID 30 Days #60 tab Megestrol [Megace] 40 mg PO BID #60 tablet INSULIN ASPART (NovoLOG) [NovoLOG (formulary)] See Protocol SQ ACHS PRN MDD 10units PRN Reason: high blood sugar hydrOXYzine HCL [Atarax] 25 mg PO QID Furosemide [Lasix] 60 mg PO DAILY Budesonide/Formoterol Fumarate [Symbicort 160-4.5 Mcg Inhaler] 1 puff INHALATION RT-BID Ipratropium-Albuterol Nebulize [Duoneb 0.5 mg-3 mg/3 ml Soln] 3 ml INHALATION RT-QID PRN each PRN Reason: Shortness Of Breath Or Wheezing Benzonatate [Tessalon Perles] 100 mg PO TID PRN #20 cap PRN Reason: Cough predniSONE See Taper PO DIRECTED Gabapentin 600 mg PO BID #6 tab Oseltamivir 6Mg/ml Oral Susp [Tamiflu] 30 mg PO BID 3 Days #3 each allopurinoL [Zyloprim] 100 mg PO BID Pantoprazole [Protonix] 40 mg PO BID Ondansetron [Zofran] 4 mg PO Q12HR PRN PRN Reason: Nausea Atorvastatin [Lipitor] 10 mg PO HS Acetaminophen Tab [Tylenol] 650 mg PO Q6HR PRN tab PRN Reason: Fever And/ Or Pain Ferrous Sulfate [Iron (65 MG Elemental)] 325 mg PO DAILY #30 tab Metoprolol Succinate (ER) [Toprol XL] 50 mg PO DAILY Metoprolol Succinate (ER) [Toprol XL] 25 mg PO DAILY Hydroxychloroquine Sulfate [Plaquenil] 200 mg PO BID Insulin Detemir (Levemir) [Levemir] 35 unit SQ DAILY Ipratropium-Albuterol Nebulize [Duoneb 0.5 mg-3 mg/3 ml Soln] 3 ml INHALATION RT-QID 30 Days #120 each Discharge Medication List FLUoxetine HCL [PROzac] 20 mg PO BID 01/09/17 [History] Montelukast [Singulair] 10 mg PO DAILY 01/09/17 [History] gemfibroziL [Lopid] 600 mg PO BID 01/09/17 [History] Albuterol Inhaler [Ventolin Hfa Inhaler] 2 puff INHALATION RT-Q4H PRN 01/14/17 [History] Albuterol Nebulized [Ventolin Nebulized] 2.5 mg INHALATION RT-QID PRN 01/14/17 [History] allopurinoL [Zyloprim] 100 mg PO BID 01/21/22 [History] Atorvastatin [Lipitor] 10 mg PO HS 02/15/22 [History] Ondansetron [Zofran] 4 mg PO Q12HR PRN 02/15/22 [History] Pantoprazole [Protonix] 40 mg PO BID 02/15/22 [History] Acetaminophen Tab [Tylenol] 650 mg PO Q6HR PRN tab 03/28/22 [Rx] Aspirin 81 mg PO BID tab 03/28/22 [Rx] Ferrous Sulfate [Iron (65 MG Elemental)] 325 mg PO DAILY #30 tab 03/28/22 [Rx] Primidone [Mysoline] 50 mg PO HS tab 03/28/22 [Rx] Sennosides-Docusate Sodium [Senokot-S] 2 tab PO HS PRN 04/02/22 [History] Apixaban [Eliquis] 5 mg PO BID 30 Days #60 tab 04/10/22 [Rx] Megestrol [Megace] 40 mg PO BID #60 tablet 04/10/22 [Rx] Budesonide/Formoterol Fumarate [Symbicort 160-4.5 Mcg Inhaler] 1 puff INHALATION RT-BID 04/13/22 [History] Furosemide [Lasix] 60 mg PO DAILY 04/13/22 [History] Hydroxychloroquine Sulfate [Plaquenil] 200 mg PO BID 04/13/22 [History] INSULIN ASPART (NovoLOG) [NovoLOG (formulary)] See Protocol SQ ACHS PRN MDD 10units 04/13/22 [History] Insulin Detemir (Levemir) [Levemir] 35 unit SQ DAILY 04/13/22 [History] Metoprolol Succinate (ER) [Toprol XL] 25 mg PO DAILY 04/13/22 [History] Metoprolol Succinate (ER) [Toprol XL] 50 mg PO DAILY 04/13/22 [History] hydrOXYzine HCL [Atarax] 25 mg PO QID 04/13/22 [History] Benzonatate [Tessalon Perles] 100 mg PO TID PRN #20 cap 04/16/22 [Rx] Ipratropium-Albuterol Nebulize [Duoneb 0.5 mg-3 mg/3 ml Soln] 3 ml INHALATION RT-QID 30 Days #120 each 04/16/22 [Rx] Ipratropium-Albuterol Nebulize [Duoneb 0.5 mg-3 mg/3 ml Soln] 3 ml INHALATION RT-QID PRN each 04/16/22 [Rx] predniSONE See Taper PO DIRECTED 04/16/22 [History] Gabapentin 600 mg PO BID #6 tab 04/17/22 [Rx] Oseltamivir 6Mg/ml Oral Susp [Tamiflu] 30 mg PO BID 3 Days #3 each 04/17/22 [Rx] Follow up Appointment(s)/Referral(s): Fela Alicea MD [Primary Care Provider] - 1-2 days Paco Blackmon DO [STAFF PHYSICIAN] - 1 Week Yakov Hodge DO [Doctor of Osteopathic Medicine] - 1 Week Saúl Bradford MD [STAFF PHYSICIAN] - 1 Week Activity/Diet/Wound Care/Special Instructions: Patient is going to [facility] on the [place] Activity as tolerated Recommend continue diabetic diet Recommend monitoring Accu-Cheks before meals and at bedtime and use sliding scale along with long-acting NovoLog sliding scale 0-150 equals 0 units 151-200 equals 2 units 201-250 equals 4 units 251-300 equals 6 units 301-350 equals 8 units 351-400 equals 10 units Please notify provider if blood sugar is 400 or above Recommend repeat CBC and BMP to monitor kidney functions and electrolytes in the next 2-3 days Recommend follow-up outpatient with consultations as discussed previously once discharged from ECF Discharge Disposition: TRANSFER TO SNF/ECF
--- NOTE | 2022-04-17 13:57 | P.CN ---
Psychiatric Consult - . Consult date: 04/17/22 Consult:: 04/17/22 13:57 IDENTIFYING DATA: This patient is a 56-year-old female with a significant history of morbid obesity, CHF, and immediate show any known carcinoma, and thyroid disorder who presented to our hospital for concern that the patient is unable to care for herself. HISTORY OF PRESENT ILLNESS: The patient presented to the hospital in 04/17/2022., Brought in via police escort and EMS for concern of inability to care for herself. Patient has had multiple hospitalizations since a left hip fracture a month ago. The patient has had numerous medical problems including concerns for DVT, endometrial carcinoma, influenza, and concerns for pulmonary vascular congestion. Psychiatry has been consulted for evaluation of depression. Upon evaluation by this provider, the patient is vehemently denying any suicidal or homicidal ideation, intention, and/or plan. She is not reporting any auditory or visual hallucinations. She denies any paranoia or other delusions. The patient does endorse significant symptoms of depression including low mood, crying episodes, and low energy. However, the patient denies any anhedonia, issues with her appetite, or any current or previous suicidal thoughts. She vehemently denies any previous attempts at suicide. The patient does admit that she is calmly prescribed Prozac in order to help her with her depression. She states that she has been on this medication for many years. Of note, the patient is also prescribed Atarax. She understands that this medication may help with anxiety however his prescribe the medication for pruritus secondary to her "lupus." The patient does acknowledge that she has been on numerous medications and has had numerous health issues. She does not report any significant history of trauma to this provider. The patient does report "I just want to be better." PAST PSYCHIATRIC HISTORY: Patient reports a history of depression and anxiety. She is currently on a regimen of Prozac 20 mg twice daily. Patient denies any previous psychiatric hospitalizations. Patient denies any psychiatric outpatient follow-up. Patient denies any history of suicide attempts in the past. PAST MEDICAL HISTORY: Past Medical History: Cancer, Diabetes Mellitus, Deep Vein Thrombosis (DVT), Hypertension, Renal Disease, Rheumatoid Arthritis (RA), Thyroid Disorder Additional Past Medical History / Comment(s): O2 @ 4L. SLE LUPUS. STAGE 3 KIDNEY DISEASE. Leukemia, GRAVES DZ , kidney stones, gout, Uterine cancer (recent diagnosis, no treatment yet) History of Any Multi-Drug Resistant Organisms: Other MDRO Past Surgical History: No Surgical Hx Reported Additional Past Surgical History / Comment(s): BILATERAL ARTHROSCOPY KNEES. D & C (MISCARRIAGES). Past Anesthesia/Blood Transfusion Reactions: No Reported Reaction Past Psychological History: Anxiety Smoking Status: Never smoker Past Alcohol Use History: None Reported Past Drug Use History: None Reported ALLERGIES: Influenza virus vaccine's, iodine, Darvocet, Cipro, Benadryl, sulfamide, red dye, yellow dye CHEMICAL DEPENDENCY HISTORY: Patient reports rare alcohol use. She denies any tobacco, marijuana, or illicit drug use. FAMILY PSYCHIATRIC/SUBSTANCE USE HISTORY: No reported family psychiatric history. SOCIAL HISTORY: Patient was born and raised in [place], [place]. She is currently to her . She reports no children. She states that they have a dog together. She receives disability. MENTAL STATUS EXAM: General Appearance: Patient appears to be stated age is alert, pleasant, and cooperative. Patient appears to have fair hygiene and grooming wearing hospital gown with fair eye contact. Obese body habitus. Nasal cannula in place. Behavior: Patient is calmly lying in bed without any agitated behavior. Eye contact is appropriate. Speech: Patient's speech is fluent and nonpressured. Mood/Affect: Patient reports their mood is "depressed", affect appears to be euthymic. Suicidality/Homicidality: Patient denies having any suicidal or homicidal ideation intent or plan. Perceptions: Patient denies any visual hallucinations and denies any auditory hallucinations Though content/process: There is no evidence of any delusional thought content and thought process is linear and goal-directed. Memory and concentration: AOX3, grossly intact for the purposes of this session. Can spell "WORLD" backwards Judgment and insight: Good IMPRESSIONS: Depressive disorder secondary to general medical condition Recent left hip fracture with repair History of severe bronchial asthma chronically wears 4 L outpatient Anemia of chronic disease History of endometrial adenocarcinoma with no treatment yet has to follow-up outpatient Hypertension Recent diagnosis of DVT of the right subclavian and right axillary vein, maintained on oral anticoagulant Diabetes mellitus, type II, insulin-dependent uncontrolled with hyperglycemiaonic hypoxic respiratory failure secondary to severe bronchial asthma History of lupus history of anxiety history of heart failure with preserved EF, most recent EF showing 55-60% PLAN: -At this time patient DOES NOT meet criteria for inpatient psychiatric admission. The patient is not presenting with imminent risk for harm to self or others. She is not endorsing any suicidal ideation and has no previous suicide attempts. She is future and goal oriented. -Supportive psychotherapy given. Recommend outpatient counseling and support services. -Suspect that the patient's weakness and worsening depression may be due to chronic illnesses such as obese body habitus, anemia of chronic disease, hypertension, lupus, CHF, asthma. Furthermore, the patient is on numerous medications and polypharmacy may contribute to worsening mood. -Would recommend the following medication changes/additions: No medication recommendations at this time. Recommend patient coordinate with her outpatient primary care provider to simplify her medication regimen. -Psychiatry will sign off at this point, please contact with any questions. Vital Signs Temp 96.8 F L 04/17/22 07:00 Pulse 84 04/17/22 12:42 Resp 18 04/17/22 12:42 BP 126/63 04/17/22 07:00 Pulse Ox 98 04/17/22 08:32 FiO2 Intake & Output 04/16/22 04/17/22 04/17/22 18:59 06:59 18:59 Intake Total 240 Output Total 600 Balance -600 240 Weight 142.882 kg Intake: Oral 240 Output: Urine 600 Other: Voiding Method Incontinent Incontinent External Catheter External Catheter Laboratory Results WBC 5.3 k/uL (3.8-10.6) 04/17/22 05:36 RBC 3.13 m/uL (3.80-5.40) L 04/17/22 05:36 Hgb 9.0 gm/dL (11.4-16.0) L 04/17/22 05:36 Hct 28.9 % (34.0-46.0) L 04/17/22 05:36 MCV 92.4 fL (80.0-100.0) 04/17/22 05:36 MCH 28.8 pg (25.0-35.0) 04/17/22 05:36 MCHC 31.1 g/dL (31.0-37.0) 04/17/22 05:36 RDW 15.4 % (11.5-15.5) 04/17/22 05:36 Plt Count 272 k/uL (150-450) 04/17/22 05:36 MPV 8.6 04/17/22 05:36 Neutrophils % 66 % 04/17/22 05:36 Lymphocytes % 27 % 04/17/22 05:36 Monocytes % 5 % 04/17/22 05:36 Eosinophils % 1 % 04/17/22 05:36 Basophils % 0 % 04/17/22 05:36 Neutrophils # 3.5 k/uL (1.3-7.7) 04/17/22 05:36 Lymphocytes # 1.4 k/uL (1.0-4.8) 04/17/22 05:36 Monocytes # 0.3 k/uL (0-1.0) 04/17/22 05:36 Eosinophils # 0.0 k/uL (0-0.7) 04/17/22 05:36 Basophils # 0.0 k/uL (0-0.2) 04/17/22 05:36 Hypochromasia Marked 04/17/22 05:36 Sodium 139 mmol/L (137-145) 04/17/22 05:36 Potassium 4.2 mmol/L (3.5-5.1) 04/17/22 05:36 Chloride 104 mmol/L (98-107) 04/17/22 05:36 Carbon Dioxide 26 mmol/L (22-30) 04/17/22 05:36 Anion Gap 9 mmol/L 04/17/22 05:36 BUN 38 mg/dL (7-17) H 04/17/22 05:36 Creatinine 1.64 mg/dL (0.52-1.04) H 04/17/22 05:36 Est GFR (CKD-EPI)AfAm 40 (>60 ml/min/1.73 sqM) 04/17/22 05:36 Est GFR (CKD-EPI)NonAf 35 (>60 ml/min/1.73 sqM) 04/17/22 05:36 Glucose 191 mg/dL (74-99) H 04/17/22 05:36 POC Glucose (mg/dL) 190 mg/dL (70-110) H 04/17/22 11:57 POC Glu Audio Specialist ID Sowmya Montalvo 04/17/22 11:57 Calcium 8.3 mg/dL (8.4-10.2) L 04/17/22 05:36 Total Bilirubin 0.4 mg/dL (0.2-1.3) 04/17/22 05:36 AST 28 U/L (14-36) 04/17/22 05:36 ALT 22 U/L (4-34) 04/17/22 05:36 Alkaline Phosphatase 66 U/L (38-126) 04/17/22 05:36 Total Protein 6.3 g/dL (6.3-8.2) 04/17/22 05:36 Albumin 3.7 g/dL (3.5-5.0) 04/17/22 05:36 Urine Opiates Screen Detected (NotDetected) H 04/16/22 21:14 Ur Oxycodone Screen Not Detected (NotDetected) 04/16/22 21:14 Urine Methadone Screen Not Detected (NotDetected) 04/16/22 21:14 Ur Propoxyphene Screen Not Detected (NotDetected) 04/16/22 21:14 Ur Barbiturates Screen Detected (NotDetected) H 04/16/22 21:14 U Tricyclic Antidepress Not Detected (NotDetected) 04/16/22 21:14 Ur Phencyclidine Scrn Not Detected (NotDetected) 04/16/22 21:14 Ur Amphetamines Screen Not Detected (NotDetected) 04/16/22 21:14 U Methamphetamines Scrn Not Detected (NotDetected) 04/16/22 21:14 U Benzodiazepines Scrn Not Detected (NotDetected) 04/16/22 21:14 Urine Cocaine Screen Not Detected (NotDetected) 04/16/22 21:14 U Marijuana (THC) Screen Not Detected (NotDetected) 04/16/22 21:14 Serum Alcohol <10 mg/dL 04/16/22 21:14 Allergies Allergy/AdvReac Type Severity Reaction Status Date / Time ciprofloxacin [From Cipro] Allergy Swelling Verified 04/16/22 22:31 diphenhydramine Allergy Swelling Verified 04/16/22 22:31 [From Benadryl] Influenza Virus Vaccines Allergy Unknown Verified 04/16/22 22:31 iodine Allergy Swelling Verified 04/16/22 22:31 propoxyphene Allergy Swelling Verified 04/16/22 22:31 [From Darvocet-N] red dye Allergy Swelling Verified 04/16/22 22:31 sulfacetamide Allergy Swelling Verified 04/16/22 22:31 [From Sulfamide] yellow dye Allergy Swelling Verified 04/16/22 22:31 04/17/22 13:57
[2022-04-17] MEDS ORDERED: OSELTAMIVIR 60 MG/10 ML ORAL SYRINGE PO SCH ×2 (16:00→21:00)
[2022-04-17 16:33] LABS: Glucose,Whole Blood 237 mg/dL (70-110)
[2022-04-17] MEDS: predniSONE 20 MG TAB PO SCH (16:52)
[2022-04-17 19:24] LABS: Glucose,Whole Blood 233 mg/dL (70-110)
[2022-04-17] MEDS ORDERED: ATORVASTATIN 10 MG TAB PO SCH (21:00)
[2022-04-18] MEDS: OSELTAMIVIR 60 MG/10 ML ORAL SYRINGE PO SCH ×2 (04:25→14:04)
[2022-04-18 05:58] LABS: Glucose,Whole Blood 352 mg/dL (70-110)
[2022-04-18] MEDS: INSULIN ASPART (NovoLOG) 100 UNIT/ML VIAL SQ SCH ×2 (06:13→13:00)
[2022-04-18 06:21] LABS: Basophils % (A) 0 %; Eosinophils % (A) 0 %; HCT 29.7 % (34.0-46.0); HGB 8.9 gm/dL (11.4-16.0); Hypochromasia Marked; Lymphocytes # (A) 0.6 k/uL (1.0-4.8); Lymphocytes % (A) 17 %; MCHC 29.8 g/dL (31.0-37.0); MCV 93.8 fL (80.0-100.0); Mean Platelet Volume 8.5; Monocytes # (A) 0.1 k/uL (0-1.0); Monocytes % (A) 3 %; Neutrophils # (A) 2.9 k/uL (1.3-7.7); Neutrophils % (A) 78 %; Platelet Count 280 k/uL (150-450); RBC 3.17 m/uL (3.80-5.40); RDW 15.5 % (11.5-15.5); WBC 3.7 k/uL (3.8-10.6)
[2022-04-18 07:02] LABS: Calcium 8.2 mg/dL (8.4-10.2); Potassium 5.1 mmol/L (3.5-5.1)
[2022-04-18] MEDS: IPRATROPIUM-ALBUTEROL 3 ML NEB INHALATION SCH ×3 (07:50→15:45)
[2022-04-18] MEDS: FENOFIBRATE 160 MG TAB PO SCH (10:15)
[2022-04-18] MEDS: ASPIRIN 81 MG PO SCH (10:15)
[2022-04-18] MEDS: predniSONE 20 MG TAB PO SCH (10:15)
[2022-04-18] MEDS: GABAPENTIN 300 MG CAP PO SCH (10:15)
[2022-04-18] MEDS: allopurinoL 100 MG TAB PO SCH (10:15)
[2022-04-18] MEDS: PANTOPRAZOLE 40 MG TABLET PO SCH (10:15)
[2022-04-18] MEDS: HYDROXYCHLOROQUINE SULFATE 200 MG TAB PO SCH (10:15)
[2022-04-18] MEDS: FLUoxetine HCL 20 MG CAP PO SCH (10:15)
[2022-04-18] MEDS: APIXABAN 5 MG TAB PO SCH (10:15)
[2022-04-18] MEDS: MEGESTROL 40 MG TAB PO SCH (10:15)
[2022-04-18 11:59] VITALS: RESP 20
[2022-04-18 12:26] LABS: Glucose,Whole Blood 353 mg/dL (70-110)
--- NOTE | 2022-04-18 13:40 | P.DS ---
Providers Date of admission: 04/16/22 22:04 Expected date of discharge: 04/18/22 Attending physician: Isabela Shelley Consults: 04/16/22 22:04 Consult Physician Routine Consulting Provider: Ronald Herrera Consult Reason/Comments: depression Do you want consulting provider notified?: Yes Primary care physician: Deanne Chahal [facility] Course: Final diagnosis Weakness with gait dysfunction Recent left hip fracture with repair History of severe bronchial asthma chronically wears 4 L outpatient Anemia of chronic disease History of endometrial adenocarcinoma with no treatment yet has to follow-up outpatient Hypertension Recent diagnosis of DVT of the right subclavian and right axillary vein, maintained on oral anticoagulant rDiabetes mellitus, type II, insulin-dependent uncontrolled with hyperglycemiaonic hypoxic respiratory failure secondary to severe bronchial asthma History of lupus history of anxiety history of heart failure with preserved EF, most recent EF showing 55-60% chronic kidney disease stage IIIB Recent admission for influenza A with nausea and vomiting and diarrhea GI prophylaxis DVT prophylaxis Full code Discharge disposition Patient is being discharged in a stable condition with guarded prognosis to [facility]. Patient will follow-up with Dr. Mckenzie in the outpatient setting upon discharge. Patient is to follow-up with nephrology, hematology, oncology, radiation oncology, primary care provider once discharged from [facility]. Total time taken is greater than 35 minutes. Hospital course This is a 56-year-old female who presented to the emergency department via police escort and EMS as she was just discharged yesterday although sister and family were concerned she is not able to care for herself. Patient has had multiple hospitalizations since her left hip fracture a month ago with surgical repair and initially went to [facility] and came back with concerns for DVT. Patient is maintained on anticoagulation and followed by hematology outpatient. Patient also has been seen by radiation oncology along with oncology for her endometrial cancer and reports she wants to follow-up outpatient when she builds more strength. Patient subsequently came back to the hospital a few days ago with increasing shortness of breath with nausea and vomiting was found to be flu A+ and started on Tamiflu. Patient was seen and evaluated by pulmonary and infectious disease maintained on Tamiflu and cleared for discharge. Patient did continue and complete her Tamiflu dose. Patient has been progressively becoming more weak although was doing okay with a walker and insistent on going home with rehab in the outpatient setting and refusing to go to an ECF. Patient was admitted again last night for weakness and is now agreeable for rehab. Patient had been continued on Tamiflu and has completed her doses while here and also on DuoNeb treatments along with a prednisone taper. Patient to follow-up with nephrology outpatient as well. Chest x-ray in the ER showed some right lower lobe infiltrate and right pleural effusion which is slightly improved compared to her previous and improvement in pulmonary vascular congestion. Patient is maintained on oral Lasix and does have a heart failure history and will continue. EKG showing sinus rhythm. Kidney functions stable and currently elevated. Patient is now agreeable to rehab and has been accepted by [facility] in case management following working on discharge planning. Recommend continue with current medication regimen as prescribed and will need to complete a prednisone taper along with one more additional day of Tamiflu 30 mg twice daily to complete the course. Recommend DuoNeb treatments 4 times a day and when necessary and also her inhalers along with Lasix 60 mg daily. Recommend repeat CBC and BMP in the outpatient setting in the next 2-3 days. Patient with significant weakness status post her left hip needs aggressive therapy and recommend continued physical therapy for strength and mobility. Patient with diabetes and encouraged and recommended continue sliding scale and long-acting and Accu-Cheks before meals and at bedtime. Currently no reports of chest pain, shortness of breath, or palpitations. Patient is afebrile. No reports of nausea or vomiting and patient is tolerating diet. Patient will be going to [facility]. Guarded prognosis. 04/18/2022 Patient seen in follow-up and has completed her doses of Tamiflu and will not require this on discharge. Patient will be going to [facility] today. Recommend outpatient follow-up once cleared and discharged from [facility] with all other medical consultations. Physical exam: GENERAL: The patient is alert and oriented x4, Well developed, well nourished. Morbidly obese HEENT: Pupils are round and equally reacting to light. EOMI. no scleral icterus. No conjunctival pallor. Normocephalic, atraumatic. No pharyngeal erythema. No thyromegaly. CARDIOVASCULAR: S1 and S2 muffled PULMONARY: diminished breath sounds bilaterally with some scattered rhonchi and minimal faint wheezing mostly tracheal noted. ABDOMEN: soft. Nontender on exam. obese. non-distended, normoactive bowel sounds. No palpable organomegaly. MUSCULOSKELETAL: No joint swelling or deformity. EXTREMITIES: No cyanosis, clubbing, or pedal edema. Her life edema noted throughout NEUROLOGICAL: Gross neurological examination did not reveal any focal deficits. Diffuse weakness SKIN: No rashes. Please refer to medication reconciliation sheet for a list of medications. The impression and plan of care has been dictated by Fabienne Fortune, Nurse Practitioner as directed. Dr. Karsten MD I have performed a history and examination and MDM of this patient, discussed the same with the dictator, and agree with the dictator's assessment and plan as written ,documented as a scribe. Based on total visit time, I have performed more than 50% of the visit. Patient Condition at Discharge: Fair Plan - Discharge Summary New Discharge Prescriptions: Continue Montelukast [Singulair] 10 mg PO DAILY gemfibroziL [Lopid] 600 mg PO BID FLUoxetine HCL [PROzac] 20 mg PO BID Albuterol Inhaler [Ventolin Hfa Inhaler] 2 puff INHALATION RT-Q4H PRN PRN Reason: Shortness Of Breath Albuterol Nebulized [Ventolin Nebulized] 2.5 mg INHALATION RT-QID PRN PRN Reason: Shortness Of Breath Aspirin 81 mg PO BID tab Primidone [Mysoline] 50 mg PO HS tab Sennosides-Docusate Sodium [Senokot-S] 2 tab PO HS PRN PRN Reason: Constipation Apixaban [Eliquis] 5 mg PO BID 30 Days #60 tab Megestrol [Megace] 40 mg PO BID #60 tablet INSULIN ASPART (NovoLOG) [NovoLOG (formulary)] See Protocol SQ ACHS PRN MDD 10units PRN Reason: high blood sugar hydrOXYzine HCL [Atarax] 25 mg PO QID Furosemide [Lasix] 60 mg PO DAILY Budesonide/Formoterol Fumarate [Symbicort 160-4.5 Mcg Inhaler] 1 puff INHALATION RT-BID Ipratropium-Albuterol Nebulize [Duoneb 0.5 mg-3 mg/3 ml Soln] 3 ml INHALATION RT-QID PRN each PRN Reason: Shortness Of Breath Or Wheezing Benzonatate [Tessalon Perles] 100 mg PO TID PRN #20 cap PRN Reason: Cough predniSONE See Taper PO DIRECTED Gabapentin 600 mg PO BID #6 tab allopurinoL [Zyloprim] 100 mg PO BID Pantoprazole [Protonix] 40 mg PO BID Ondansetron [Zofran] 4 mg PO Q12HR PRN PRN Reason: Nausea Atorvastatin [Lipitor] 10 mg PO HS Acetaminophen Tab [Tylenol] 650 mg PO Q6HR PRN tab PRN Reason: Fever And/ Or Pain Ferrous Sulfate [Iron (65 MG Elemental)] 325 mg PO DAILY #30 tab Metoprolol Succinate (ER) [Toprol XL] 50 mg PO DAILY Metoprolol Succinate (ER) [Toprol XL] 25 mg PO DAILY Hydroxychloroquine Sulfate [Plaquenil] 200 mg PO BID Insulin Detemir (Levemir) [Levemir] 35 unit SQ DAILY Ipratropium-Albuterol Nebulize [Duoneb 0.5 mg-3 mg/3 ml Soln] 3 ml INHALATION RT-QID 30 Days #120 each Discontinued Oseltamivir 6Mg/ml Oral Susp [Tamiflu] 30 mg PO BID 3 Days #5 each Discharge Medication List FLUoxetine HCL [PROzac] 20 mg PO BID 01/09/17 [History] Montelukast [Singulair] 10 mg PO DAILY 01/09/17 [History] gemfibroziL [Lopid] 600 mg PO BID 01/09/17 [History] Albuterol Inhaler [Ventolin Hfa Inhaler] 2 puff INHALATION RT-Q4H PRN 01/14/17 [History] Albuterol Nebulized [Ventolin Nebulized] 2.5 mg INHALATION RT-QID PRN 01/14/17 [History] allopurinoL [Zyloprim] 100 mg PO BID 01/21/22 [History] Atorvastatin [Lipitor] 10 mg PO HS 02/15/22 [History] Ondansetron [Zofran] 4 mg PO Q12HR PRN 02/15/22 [History] Pantoprazole [Protonix] 40 mg PO BID 02/15/22 [History] Acetaminophen Tab [Tylenol] 650 mg PO Q6HR PRN tab 03/28/22 [Rx] Aspirin 81 mg PO BID tab 03/28/22 [Rx] Ferrous Sulfate [Iron (65 MG Elemental)] 325 mg PO DAILY #30 tab 03/28/22 [Rx] Primidone [Mysoline] 50 mg PO HS tab 03/28/22 [Rx] Sennosides-Docusate Sodium [Senokot-S] 2 tab PO HS PRN 04/02/22 [History] Apixaban [Eliquis] 5 mg PO BID 30 Days #60 tab 04/10/22 [Rx] Megestrol [Megace] 40 mg PO BID #60 tablet 04/10/22 [Rx] Budesonide/Formoterol Fumarate [Symbicort 160-4.5 Mcg Inhaler] 1 puff INHALATION RT-BID 04/13/22 [History] Furosemide [Lasix] 60 mg PO DAILY 04/13/22 [History] Hydroxychloroquine Sulfate [Plaquenil] 200 mg PO BID 04/13/22 [History] INSULIN ASPART (NovoLOG) [NovoLOG (formulary)] See Protocol SQ ACHS PRN MDD 10units 04/13/22 [History] Insulin Detemir (Levemir) [Levemir] 35 unit SQ DAILY 04/13/22 [History] Metoprolol Succinate (ER) [Toprol XL] 25 mg PO DAILY 04/13/22 [History] Metoprolol Succinate (ER) [Toprol XL] 50 mg PO DAILY 04/13/22 [History] hydrOXYzine HCL [Atarax] 25 mg PO QID 04/13/22 [History] Benzonatate [Tessalon Perles] 100 mg PO TID PRN #20 cap 04/16/22 [Rx] Ipratropium-Albuterol Nebulize [Duoneb 0.5 mg-3 mg/3 ml Soln] 3 ml INHALATION RT-QID 30 Days #120 each 04/16/22 [Rx] Ipratropium-Albuterol Nebulize [Duoneb 0.5 mg-3 mg/3 ml Soln] 3 ml INHALATION RT-QID PRN each 04/16/22 [Rx] predniSONE See Taper PO DIRECTED 04/16/22 [History] Gabapentin 600 mg PO BID #6 tab 04/17/22 [Rx] Follow up Appointment(s)/Referral(s): Fela Alicea MD [Primary Care Provider] - 1-2 days Yakov Hodge DO [Doctor of Osteopathic Medicine] - 1 Week Saúl Bradford MD [STAFF PHYSICIAN] - 1 Week Paco Blackmon DO [STAFF PHYSICIAN] - 1 Week Activity/Diet/Wound Care/Special Instructions: Patient is going to [facility] on the [facility] as tolerated Recommend continue diabetic diet Recommend monitoring Accu-Cheks before meals and at bedtime and use sliding scale along with long-acting NovoLog sliding scale 0-150 equals 0 units 151-200 equals 2 units 201-250 equals 4 units 251-300 equals 6 units 301-350 equals 8 units 351-400 equals 10 units Please notify provider if blood sugar is 400 or above Recommend repeat CBC and BMP to monitor kidney functions and electrolytes in the next 2-3 days Recommend follow-up outpatient with consultations as discussed previously once discharged from ECF Discharge Disposition: TRANSFER TO SNF/ECF
[2022-04-18 16:17] VITALS: BP 140/80; PULSE 75; TEMP 98
== END 2022-04-18 16:15 ==
LOC: EC 19:21 → 6NMEDSUR 22:04 → 1SOBS 04-17 09:30
PROVIDERS: ADMIT Hospitalist; ATTEND Hospitalist
DX: Z00.00 Encounter for general adult medical examination without abnormal findings (principal); F99 Mental disorder, not otherwise specified; C54.1 Malignant neoplasm of endometrium; I13.0 Hypertensive heart and chronic kidney disease with heart failure and stage 1 through stage 4 chronic kidney disease, or unspecified chronic kidney disease; E11.22 Type 2 diabetes mellitus with diabetic chronic kidney disease; N18.32 Chronic kidney disease, stage 3b; I50.9 Heart failure, unspecified; D63.1 Anemia in chronic kidney disease; F32.A Depression, unspecified; J96.91 Respiratory failure, unspecified with hypoxia; M32.9 Systemic lupus erythematosus, unspecified; F41.9 Anxiety disorder, unspecified; Z98.890 Other specified postprocedural states; Z87.81 Personal history of (healed) traumatic fracture; J45.990 Exercise induced bronchospasm; Z99.81 Dependence on supplemental oxygen; Z86.718 Personal history of other venous thrombosis and embolism; M10.9 Gout, unspecified; M06.9 Rheumatoid arthritis, unspecified; E07.9 Disorder of thyroid, unspecified; E05.00 Thyrotoxicosis with diffuse goiter without thyrotoxic crisis or storm; Z85.6 Personal history of leukemia; Z82.49 Family history of ischemic heart disease and other diseases of the circulatory system; Z83.3 Family history of diabetes mellitus; Z87.442 Personal history of urinary calculi; Z86.19 Personal history of other infectious and parasitic diseases; Z79.01 Long term (current) use of anticoagulants; Z79.84 Long term (current) use of oral hypoglycemic drugs; Z79.82 Long term (current) use of aspirin; Z79.51 Long term (current) use of inhaled steroids; Z79.4 Long term (current) use of insulin; Z88.1 Allergy status to other antibiotic agents; Z88.5 Allergy status to narcotic agent; Z88.2 Allergy status to sulfonamides; Z88.7 Allergy status to serum and vaccine; Z88.8 Allergy status to other drugs, medicaments and biological substances; Z91.048 Other nonmedicinal substance allergy status
CPT/HCPCS: 96365; 96366; 99284; 36415; 94640; 94760; 93005; 97162; 97167; 80053 ×2; 80048; 85025 ×3; 80306; 87070; 87205; 87077; 87186; 71046; G0378 ×4; G0480; J0696; S0179; J7512 ×2; 80320

== ENCOUNTER 2022-05-09 08:59 | Inpatient (IN) | payer MEDICARE ==
[2022-05-09] MEDS ORDERED: MORPHINE SULFATE 4 MG/ML SYRINGE IVP STA (09:36)
[2022-05-09] MEDS ORDERED: PROCHLORPERAZINE INJ 10 MG/2 ML VIAL IVP STA (09:54)
[2022-05-09 10:17] LABS: Albumin 4.5 g/dL (3.5-5.0); Basophils # (A) 0.1 k/uL (0-0.2); Basophils % (A) 1 %; Calcium 9.7 mg/dL (8.4-10.2); Eosinophils # (A) 0.4 k/uL (0-0.7); Eosinophils % (A) 5 %; HCT 35.9 % (34.0-46.0); HGB 11.3 gm/dL (11.4-16.0); Lymphocytes # (A) 1.5 k/uL (1.0-4.8); Lymphocytes % (A) 17 %; MCH 27.8 pg (25.0-35.0); MCHC 31.6 g/dL (31.0-37.0); Magnesium 1.6 mg/dL (1.6-2.3); Mean Platelet Volume 8.2; Monocytes # (A) 0.4 k/uL (0-1.0); Monocytes % (A) 4 %; Neutrophils # (A) 6.4 k/uL (1.3-7.7); Neutrophils % (A) 71 %; Platelet Count 299 k/uL (150-450); Potassium 4.9 mmol/L (3.5-5.1); RBC 4.08 m/uL (3.80-5.40); RDW 15.8 % (11.5-15.5); Total Bilirubin 0.6 mg/dL (0.2-1.3); Total Protein 7.5 g/dL (6.3-8.2)
[2022-05-09 10:24] LABS: Partial Thromboplastin Time 22.7 sec (22.0-30.0); Prothrombin Time 10.5 sec (9.0-12.0)
--- NOTE | 2022-05-09 11:34 | ED ---
GI Bleed HPI - General Chief complaint: GI Bleed Stated complaint: GI Bleed Time Seen by Provider: 05/09/22 09:10 Source: patient, EMS Mode of arrival: EMS Limitations: no limitations - History of Present Illness Initial comments: 56-year-old female with past medical history of endometrial cancer, diabetes, DVT on Eliquis who presents to the emergency department with vaginal and rectal bleeding. States that she was just recently hospitalized and was sent to rehab. Patient was discharged on Friday. States that she had mild vaginal bleeding while at rehab however this morning the patient awoke to significant vaginal bleeding and was also having some blood intermixed with her stool. She denies history of ulcers. Admits to nausea with vomiting. EMS started an IV and gave her some IV fluids. She reports to feeling lightheaded with abdominal pain. She is supposed to follow with Dr. Bradford for radiation which she has not started yet. No other alleviating, the dictating or modifying factors - Related Data Home Medications Medication Instructions Recorded Confirmed Montelukast [Singulair] 10 mg PO HS 01/09/17 05/09/22 gemfibroziL [Lopid] 600 mg PO BID 01/09/17 05/09/22 Albuterol Inhaler [Ventolin Hfa 2 puff INHALATION RT-Q4H PRN 01/14/17 05/09/22 Inhaler] allopurinoL [Zyloprim] 100 mg PO BID 01/21/22 05/09/22 Atorvastatin [Lipitor] 10 mg PO HS 02/15/22 05/09/22 Ondansetron [Zofran] 4 mg PO Q12HR PRN 02/15/22 05/09/22 Sennosides-Docusate Sodium 2 tab PO DAILY PRN 04/02/22 05/09/22 [Senokot-S] Budesonide/Formoterol Fumarate 1 puff INHALATION RT-BID 04/13/22 05/09/22 [Symbicort 160-4.5 Mcg Inhaler] Hydroxychloroquine Sulfate 200 mg PO BID 04/13/22 05/09/22 [Plaquenil] Metoprolol Succinate (ER) [Toprol 25 mg PO DAILY 04/13/22 05/09/22 XL] Metoprolol Succinate (ER) [Toprol 50 mg PO DAILY 04/13/22 05/09/22 XL] hydrOXYzine HCL [Atarax] 25 mg PO QID 04/13/22 05/09/22 Bismuth Subsalicylate 524 mg PO Q4H PRN 05/09/22 05/09/22 [Pepto-Bismol] Collagenase [Santyl Ointment] 1 applic TOPICAL HS 05/09/22 05/09/22 FLUoxetine HCL [PROzac] 40 mg PO DAILY 05/09/22 05/09/22 Ferrous Sulfate [Iron (65 MG 325 mg PO HS 05/09/22 05/09/22 Elemental)] Furosemide [Lasix] 60 mg PO DAILY 05/09/22 05/09/22 HYDROcodone/APAP 5-325MG [[place] 1 tab PO TID PRN 05/09/22 05/09/22 5-325] Insulin Glargine,Hum.rec.anlog 35 units SQ DAILY 05/09/22 05/09/22 [Insulin Glargine Solostar] Insulin Lispro [Insulin Lispro See Protocol SQ ACHS 05/09/22 05/09/22 Kwikpen U-100] Previous Rx's Medication Instructions Recorded Acetaminophen Tab [Tylenol] 650 mg PO Q6HR PRN tab 03/28/22 Aspirin 81 mg PO BID tab 03/28/22 Primidone [Mysoline] 50 mg PO HS tab 03/28/22 Apixaban [Eliquis] 5 mg PO BID 30 Days #60 tab 04/10/22 Megestrol [Megace] 40 mg PO BID #60 tablet 04/10/22 Benzonatate [Tessalon Perles] 100 mg PO TID PRN #20 cap 04/16/22 Ipratropium-Albuterol Nebulize 3 ml INHALATION RT-QID PRN each 04/16/22 [Duoneb 0.5 mg-3 mg/3 ml Soln] Gabapentin 600 mg PO BID #6 tab 04/17/22 Allergies Allergy/AdvReac Type Severity Reaction Status Date / Time ciprofloxacin [From Cipro] Allergy Swelling Verified 05/09/22 10:43 diphenhydramine Allergy Swelling Verified 05/09/22 10:43 [From Benadryl] Influenza Virus Vaccines Allergy Unknown Verified 05/09/22 10:43 iodine Allergy Swelling Verified 05/09/22 10:43 propoxyphene Allergy Swelling Verified 05/09/22 10:43 [From Darvocet-N] red dye Allergy Swelling Verified 05/09/22 10:43 sulfacetamide Allergy Swelling Verified 05/09/22 10:43 [From Sulfamide] yellow dye Allergy Swelling Verified 05/09/22 10:43 Review of Systems ROS Statement: Those systems with pertinent positive or pertinent negative responses have been documented in the HPI. ROS Other: All systems not noted in ROS Statement are negative. Past Medical History Past Medical History: Cancer, Diabetes Mellitus, Deep Vein Thrombosis (DVT), Hypertension, Renal Disease, Rheumatoid Arthritis (RA), Thyroid Disorder Additional Past Medical History / Comment(s): O2 @ 4L. SLE LUPUS. STAGE 3 KIDNEY DISEASE. Leukemia, GRAVES DZ , kidney stones, gout, Uterine cancer (recent diagnosis, no treatment yet) History of Any Multi-Drug Resistant Organisms: Other MDRO Past Surgical History: No Surgical Hx Reported Additional Past Surgical History / Comment(s): BILATERAL ARTHROSCOPY KNEES. D & C (MISCARRIAGES). Past Anesthesia/Blood Transfusion Reactions: No Reported Reaction Past Psychological History: Anxiety Smoking Status: Never smoker Past Alcohol Use History: None Reported Past Drug Use History: None Reported - Past Family History Mother Family Medical History: Congestive Heart Failure (CHF), Diabetes Mellitus Father Family Medical History: Congestive Heart Failure (CHF), Dialysis, Hypertension General Exam Limitations: no limitations General appearance: alert, in no apparent distress, anxious Head exam: Present: atraumatic, normocephalic, normal inspection Eye exam: Present: normal appearance, PERRL, EOMI. Absent: scleral icterus, conjunctival injection, periorbital swelling ENT exam: Present: normal exam, mucous membranes moist Neck exam: Present: normal inspection. Absent: tenderness, meningismus, ly mphadenopathy Respiratory exam: Present: normal lung sounds bilaterally. Absent: respiratory distress, wheezes, rales, rhonchi, stridor Cardiovascular Exam: Present: normal rhythm, tachycardia, normal heart sounds. Absent: systolic murmur, diastolic murmur, rubs, gallop, clicks GI/Abdominal exam: Present: soft, normal bowel sounds. Absent: distended, tenderness, guarding, rebound, rigid Rectal exam: Present: normal inspection, heme (+) stool, other (brown stool on exam) External exam: Present: normal external exam. Absent: lacerations, ecchymosis Speculum exam: Present: vaginal bleeding Extremities exam: Present: normal inspection, full ROM, normal capillary refill. Absent: tenderness, pedal edema, joint swelling, calf tenderness Back exam: Present: normal inspection Neurological exam: Present: alert, oriented X3, CN II-XII intact Psychiatric exam: Present: normal affect, normal mood Skin exam: Present: warm, dry, intact, normal color. Absent: rash Course Vital Signs 05/09/22 05/09/22 05/09/22 09:00 11:44 14:10 Temperature 98.0 F Pulse Rate 131 H 104 H 94 Respiratory 22 22 18 Rate Blood Pressure 156/97 159/92 159/92 O2 Sat by Pulse 98 98 Oximetry Medical Decision Making - Medical Decision Making Was pt. sent in by a medical professional or institution (, PA, SALVAGE MECHANIC, urgent care, hospital, or prison...) When possible be specific @ -[No] Did you speak to anyone other than the patient for history (EMS, parent, family, police, friend...)? What history was obtained from this source EMS Did you review nursing and triage notes (agree or disagree)? Why? @ -[I reviewed and agree with nursing and triage notes] Were old charts reviewed (outside hosp., previous admission, EMS record, old EKG, old radiological studies, urgent care reports/EKG's, prison records)? Report findings patients last admission/discharge was reviewed Differential Diagnosis (chest pain, altered mental status, abdominal pain women, abdominal pain men, vaginal bleeding, weakness, fever, dyspnea, syncope, headache, dizziness, GI bleed, back pain, seizure, CVA, palpatations, mental health)? gi bleed, vaginal bleed, laceration, cancer, polyps, diverticulosis EKG interpreted by me (3pts min.). yes X-rays interpreted by me (1pt min.). @ -[None done] CT interpreted by me (1pt min.). @ -[None done] U/S interpreted by me (1pt. min.). @ -[None done] What testing was considered but not performed or refused? (CT, X-rays, U/S, labs )? Why? @ -[None] What meds were considered but not given or refused? Why? @ -[None] Did you discuss the management of the patient with other professionals (professionals i.e. , PA, SALVAGE MECHANIC, lab, RT, psych nurse, nursing home social worker, welding production supervisor, teacher, tactical deception plans officer, casework specialist)? Give summary admitting doctor Was smoking cessation discussed for >3mins.? @ -[No] Was critical care preformed (if so, how long)? @ -[No] Were there social determinants of health that impacted care today? How? (Homelessness, low income, unemployed, alcoholism, drug addiction, transportation, low edu. Level, literacy, decrease access to med. care, mcc, rehab)? @ -[No] Was there de-escalation of care discussed even if they declined (Discuss DNR or withdrawal of care, Hospice)? DNR status @ -[No] What co-morbidities impacted this encounter? (DM, HTN, Smoking, COPD, CAD, Cancer, CVA, ARF, Chemo, Hep., AIDS, mental health diagnosis, sleep apnea, morbid obesity)? endometrail cancer Was patient admitted / discharged? Hospital course, mention meds given and route, prescriptions, significant lab abnormalities, going to OR and other pertinent info. Upon arrival patient was placed into room 10. The wrist and physical exam was performed. Genital exam does demonstrate vaginal bleeding which is mild. Rectal exam is performed which demonstrates brown stool and no gross blood. Cultures obtained. Laboratory studies were conducted. Hemoglobin 11.3 which is improved from patient's previous. Occult does come back positive. Discuss results with the patient. She will be admitted for GI consultation. Spoke with Dr. Cunningham who agreed to admit the patient. Undiagnosed new problem with uncertain prognosis? @ -[No] Drug Therapy requiring intensive monitoring for toxicity (Heparin, Nitro, Insulin, Cardizem)? @ -[No] Were any procedures done? @ -[No] Diagnosis/symptom? vaginal bleeding, rectal bleeding Acute, or Chronic, or Acute on Chronic? vaginal bleed - acute on chronic, rectal bleed - acute Uncomplicated (without systemic symptoms) or Complicated (systemic symptoms)? complicated Side effects of treatment? @ -[No] Exacerbation, Progression, or Severe Exacerbation? vaginal bleed - severe exacerbation Poses a threat to life or bodily function? How? (Chest pain, [place], [place], pneumonia, PE, COPD, DKA, ARF, appy, cholecystitis, CVA, Diverticulitis, Homicidal, Suicidal, threat to staff... and all critical care pts) yes - Lab Data Result diagrams: 05/12/22 12:17 05/12/22 07:44 Lab Results 05/09/22 05/09/22 05/09/22 Range/Units 09:40 09:50 09:50 WBC 9.0 (3.8-10.6) k/uL RBC 4.08 (3.80-5.40) m/uL Hgb 11.3 L (11.4-16.0) gm/dL Hct 35.9 (34.0-46.0) % MCV 88.0 D (80.0-100.0) fL MCH 27.8 (25.0-35.0) pg MCHC 31.6 (31.0-37.0) g/dL RDW 15.8 H (11.5-15.5) % Plt Count 299 (150-450) k/uL MPV 8.2 Neutrophils % 71 % Lymphocytes % 17 % Monocytes % 4 % Eosinophils % 5 % Basophils % 1 % Neutrophils # 6.4 (1.3-7.7) k/uL Lymphocytes # 1.5 (1.0-4.8) k/uL Monocytes # 0.4 (0-1.0) k/uL Eosinophils # 0.4 (0-0.7) k/uL Basophils # 0.1 (0-0.2) k/uL PT (9.0-12.0) sec INR (<1.2) APTT (22.0-30.0) sec Sodium (137-145) mmol/L Potassium (3.5-5.1) mmol/L Chloride (98-107) mmol/L Carbon Dioxide (22-30) mmol/L Anion Gap mmol/L BUN (7-17) mg/dL Creatinine (0.52-1.04) mg/dL Est GFR (CKD-EPI)AfAm (>60 ml/min/1.73 sqM) Est GFR (CKD-EPI)NonAf (>60 ml/min/1.73 sqM) Glucose (74-99) mg/dL Plasma Lactic Acid [place] (0.7-2.0) mmol/L Calcium (8.4-10.2) mg/dL Magnesium (1.6-2.3) mg/dL Total Bilirubin (0.2-1.3) mg/dL AST (14-36) U/L ALT (4-34) U/L Alkaline Phosphatase (38-126) U/L Troponin I (0.000-0.034) ng/mL Total Protein (6.3-8.2) g/dL Albumin (3.5-5.0) g/dL Lipase (23-300) U/L Urine Color Yellow Urine Appearance Cloudy H (Clear) Urine pH 5.0 (5.0-8.0) Ur Specific [place] 1.016 (1.001-1.035) Urine Protein 1+ H (Negative) Urine Glucose (UA) Trace H (Negative) Urine Ketones Negative (Negative) Urine Blood Large H (Negative) Urine Nitrite Negative (Negative) Urine Bilirubin Negative (Negative) Urine Urobilinogen <2.0 (<2.0) mg/dL Ur Leukocyte Esterase Large H (Negative) Urine RBC 5 (0-5) /hpf Urine WBC 65 H (0-5) /hpf Ur Squamous Epith Cells <1 (0-4) /hpf Urine Bacteria Many H (None) /hpf Hyaline Casts 3 H (0-2) /lpf Urine Mucus Rare H (None) /hpf Urine Yeast (Budding) Few H (None) /hpf Stool Occult Blood Positive H (Negative) Blood Type Blood Type Recheck Bld Type Recheck Status Antibody Screen Crossmatch Spec Expiration Date 05/09/22 05/09/22 05/09/22 Range/Units 09:50 09:50 09:50 WBC (3.8-10.6) k/uL RBC (3.80-5.40) m/uL Hgb (11.4-16.0) gm/dL Hct (34.0-46.0) % MCV (80.0-100.0) fL MCH (25.0-35.0) pg MCHC (31.0-37.0) g/dL RDW (11.5-15.5) % Plt Count (150-450) k/uL MPV Neutrophils % % Lymphocytes % % Monocytes % % Eosinophils % % Basophils % % Neutrophils # (1.3-7.7) k/uL Lymphocytes # (1.0-4.8) k/uL Monocytes # (0-1.0) k/uL Eosinophils # (0-0.7) k/uL Basophils # (0-0.2) k/uL PT 10.5 (9.0-12.0) sec INR 1.0 (<1.2) APTT 22.7 (22.0-30.0) sec Sodium 142 (137-145) mmol/L Potassium 4.9 (3.5-5.1) mmol/L Chloride 112 H (98-107) mmol/L Carbon Dioxide 18 L (22-30) mmol/L Anion Gap 12 mmol/L BUN 37 H (7-17) mg/dL Creatinine 1.81 H (0.52-1.04) mg/dL Est GFR (CKD-EPI)AfAm 36 (>60 ml/min/1.73 sqM) Est GFR (CKD-EPI)NonAf 31 (>60 ml/min/1.73 sqM) Glucose 211 H (74-99) mg/dL Plasma Lactic Acid [place] 1.0 (0.7-2.0) mmol/L Calcium 9.7 (8.4-10.2) mg/dL Magnesium 1.6 (1.6-2.3) mg/dL Total Bilirubin 0.6 (0.2-1.3) mg/dL AST 54 H (14-36) U/L ALT 49 H (4-34) U/L Alkaline Phosphatase 102 (38-126) U/L Troponin I (0.000-0.034) ng/mL Total Protein 7.5 (6.3-8.2) g/dL Albumin 4.5 (3.5-5.0) g/dL Lipase 244 (23-300) U/L Urine Color Urine Appearance (Clear) Urine pH (5.0-8.0) Ur Specific [place] (1.001-1.035) Urine Protein (Negative) Urine Glucose (UA) (Negative) Urine Ketones (Negative) Urine Blood (Negative) Urine Nitrite (Negative) Urine Bilirubin (Negative) Urine Urobilinogen (<2.0) mg/dL Ur Leukocyte Esterase (Negative) Urine RBC (0-5) /hpf Urine WBC (0-5) /hpf Ur Squamous Epith Cells (0-4) /hpf Urine Bacteria (None) /hpf Hyaline Casts (0-2) /lpf Urine Mucus (None) /hpf Urine Yeast (Budding) (None) /hpf Stool Occult Blood (Negative) Blood Type Blood Type Recheck Bld Type Recheck Status Antibody Screen Crossmatch Spec Expiration Date 05/09/22 05/09/22 Range/Units 09:50 09:50 WBC (3.8-10.6) k/uL RBC (3.80-5.40) m/uL Hgb (11.4-16.0) gm/dL Hct (34.0-46.0) % MCV (80.0-100.0) fL MCH (25.0-35.0) pg MCHC (31.0-37.0) g/dL RDW (11.5-15.5) % Plt Count (150-450) k/uL MPV Neutrophils % % Lymphocytes % % Monocytes % % Eosinophils % % Basophils % % Neutrophils # (1.3-7.7) k/uL Lymphocytes # (1.0-4.8) k/uL Monocytes # (0-1.0) k/uL Eosinophils # (0-0.7) k/uL Basophils # (0-0.2) k/uL PT (9.0-12.0) sec INR (<1.2) APTT (22.0-30.0) sec Sodium (137-145) mmol/L Potassium (3.5-5.1) mmol/L Chloride (98-107) mmol/L Carbon Dioxide (22-30) mmol/L Anion Gap mmol/L BUN (7-17) mg/dL Creatinine (0.52-1.04) mg/dL Est GFR (CKD-EPI)AfAm (>60 ml/min/1.73 sqM) Est GFR (CKD-EPI)NonAf (>60 ml/min/1.73 sqM) Glucose (74-99) mg/dL Plasma Lactic Acid [place] (0.7-2.0) mmol/L Calcium (8.4-10.2) mg/dL Magnesium (1.6-2.3) mg/dL Total Bilirubin (0.2-1.3) mg/dL AST (14-36) U/L ALT (4-34) U/L Alkaline Phosphatase (38-126) U/L Troponin I <0.012 (0.000-0.034) ng/mL Total Protein (6.3-8.2) g/dL Albumin (3.5-5.0) g/dL Lipase (23-300) U/L Urine Color Urine Appearance (Clear) Urine pH (5.0-8.0) Ur Specific [place] (1.001-1.035) Urine Protein (Negative) Urine Glucose (UA) (Negative) Urine Ketones (Negative) Urine Blood (Negative) Urine Nitrite (Negative) Urine Bilirubin (Negative) Urine Urobilinogen (<2.0) mg/dL Ur Leukocyte Esterase (Negative) Urine RBC (0-5) /hpf Urine WBC (0-5) /hpf Ur Squamous Epith Cells (0-4) /hpf Urine Bacteria (None) /hpf Hyaline Casts (0-2) /lpf Urine Mucus (None) /hpf Urine Yeast (Budding) (None) /hpf Stool Occult Blood (Negative) Blood Type AB Positive Blood Type Recheck AB Pos Bld Type Recheck Status No Antibody Screen NEGATIVE Crossmatch See Detail Spec Expiration Date 05/12/20222349 Disposition Clinical Impression: Endometrial adenocarcinoma, Vaginal bleeding, Rectal bleed, Tachycardia Disposition: ADMITTED IP TO THIS [facility] Condition: Stable Is patient prescribed a controlled substance at d/c from ED?: No Time of Disposition: 11:34 Decision to Admit Reason: Admit from EC Decision Date: 05/09/22 Decision Time: 11:34
[2022-05-09] MEDS ORDERED: NALOXONE 0.4 MG/ML 1 ML VIAL IV PRN (12:50)
[2022-05-09] MEDS ORDERED: ACETAMINOPHEN TAB 325 MG TAB PO PRN (12:50)
[2022-05-09] MEDS ORDERED: MORPHINE SULFATE 4 MG/ML SYRINGE IV PRN (12:50)
[2022-05-09] MEDS ORDERED: SODIUM CHLORIDE 0.9% 1,000 ML IV SCH (13:00)
--- NOTE | 2022-05-09 13:54 | P.CONS ---
History of Present Illness - Reason for Consult Consult date: 05/09/22 GI bleed Requesting physician: Amelie Bryan - Chief Complaint Vaginal bleeding - History of Present Illness 56-year-old female who presented to the emergency department with complaints of vaginal bleeding. Recent diagnosis endometrial adenocarcinoma diagnosed in January 2022. Patient has not started any treatment thus far. Patient also has a past medical history of diabetes mellitus, morbid obesity, upper extremity DVT on eliquis, hypertension, chronic kidney disease, rheumatoid arthritis and Graves' disease. Patient states she recently had an appointment with Dr. Bradford and will be getting ready to start radiation therapy. Patient states she started having vaginal bleeding about one week ago initially was light pink and just spotting however over the last 1-2 days she started having heavier vaginal bleeding. Patient had reported to the ER that she thought maybe she could've had rectal bleeding as well however it sounds as though it's all vaginal bleeding that is pooling into the back and may have been mixed in with her stool. She has no previous history of a GI bleed. Last colonoscopy was about 1 year ago done at [facility] which she states was normal. States that she is having abdominal pain that is similar to the abdominal pain that she had when she was diagnosed with her endometrial cancer. Admitting labs WBC 9.0 hemoglobin 11.3 hematocrit 35 platelet count 299,000 sodium 142 potassium 4.9 BUN 37 creatinine 1.8 total bilirubin 0.6 AST 54 ALT 49 alkaline phosphatase 102 lipase 244 stool occult blood positive. Review of Systems REVIEW OF SYSTEMS: CARDIOPULMONARY: No chest pain or shortness of breath. Gastrointestinal: Abdominal pain left lower quadrant. No nausea or vomiting. No hematemesis, coffee-ground emesis. Patient unsure she's having rectal bleeding persists vaginal bleeding. GENITOURINARY: No dysuria or hematuria. LUMBER CHAIN OFFBEARER: Vaginal bleeding, dark red. MUSCULOSKELETAL: Reports normal range of motion. Joint pain. SKIN: No rashes. No jaundice. ENDOCRINE: No chills, fevers. No excessive weight gain or loss. No polydipsia or polyuria. PSYCHIATRIC: Unremarkable. NEUROLOGY: No change in mental status. Denies dizziness, headache. ENT: Vision unremarkable. CONSTITUTIONAL: No recent weight loss. No fever, chills, night sweats. Past Medical History Past Medical History: Cancer, Diabetes Mellitus, Deep Vein Thrombosis (DVT), Hyp ertension, Renal Disease, Rheumatoid Arthritis (RA), Thyroid Disorder Additional Past Medical History / Comment(s): O2 @ 4L. SLE LUPUS. STAGE 3 KIDNEY DISEASE. Leukemia, GRAVES DZ , kidney stones, gout, Uterine cancer (recent diagnosis, no treatment yet) History of Any Multi-Drug Resistant Organisms: Other MDRO Past Surgical History: No Surgical Hx Reported Additional Past Surgical History / Comment(s): BILATERAL ARTHROSCOPY KNEES. D & C (MISCARRIAGES). Past Anesthesia/Blood Transfusion Reactions: No Reported Reaction Past Psychological History: Anxiety Smoking Status: Never smoker Past Alcohol Use History: None Reported Past Drug Use History: None Reported - Past Family History Mother Family Medical History: Congestive Heart Failure (CHF), Diabetes Mellitus Father Family Medical History: Congestive Heart Failure (CHF), Dialysis, Hypertension Medications and Allergies Home Medications Medication Instructions Recorded Confirmed Type Montelukast [Singulair] 10 mg PO HS 01/09/17 05/09/22 History gemfibroziL [Lopid] 600 mg PO BID 01/09/17 05/09/22 History Albuterol Inhaler [Ventolin Hfa 2 puff INHALATION RT-Q4H PRN 01/14/17 05/09/22 History Inhaler] allopurinoL [Zyloprim] 100 mg PO BID 01/21/22 05/09/22 History Atorvastatin [Lipitor] 10 mg PO HS 02/15/22 05/09/22 History Ondansetron [Zofran] 4 mg PO Q12HR PRN 02/15/22 05/09/22 History Acetaminophen Tab [Tylenol] 650 mg PO Q6HR PRN tab 03/28/22 05/09/22 Rx Aspirin 81 mg PO BID tab 03/28/22 05/09/22 Rx Primidone [Mysoline] 50 mg PO HS tab 03/28/22 05/09/22 Rx Sennosides-Docusate Sodium 2 tab PO DAILY PRN 04/02/22 05/09/22 History [Senokot-S] Apixaban [Eliquis] 5 mg PO BID 30 Days #60 tab 04/10/22 05/09/22 Rx Megestrol [Megace] 40 mg PO BID #60 tablet 04/10/22 05/09/22 Rx Budesonide/Formoterol Fumarate 1 puff INHALATION RT-BID 04/13/22 05/09/22 History [Symbicort 160-4.5 Mcg Inhaler] Hydroxychloroquine Sulfate 200 mg PO BID 04/13/22 05/09/22 History [Plaquenil] Metoprolol Succinate (ER) [Toprol 25 mg PO DAILY 04/13/22 05/09/22 History XL] Metoprolol Succinate (ER) [Toprol 50 mg PO DAILY 04/13/22 05/09/22 History XL] hydrOXYzine HCL [Atarax] 25 mg PO QID 04/13/22 05/09/22 History Benzonatate [Tessalon Perles] 100 mg PO TID PRN #20 cap 04/16/22 05/09/22 Rx Ipratropium-Albuterol Nebulize 3 ml INHALATION RT-QID PRN each 04/16/22 05/09/22 Rx [Duoneb 0.5 mg-3 mg/3 ml Soln] Gabapentin 600 mg PO BID #6 tab 04/17/22 05/09/22 Rx Bismuth Subsalicylate 524 mg PO Q4H PRN 05/09/22 05/09/22 History [Pepto-Bismol] Collagenase [Santyl Ointment] 1 applic TOPICAL HS 05/09/22 05/09/22 History FLUoxetine HCL [PROzac] 40 mg PO DAILY 05/09/22 05/09/22 History Ferrous Sulfate [Iron (65 MG 325 mg PO HS 05/09/22 05/09/22 History Elemental)] Furosemide [Lasix] 60 mg PO DAILY 05/09/22 05/09/22 History HYDROcodone/APAP 5-325MG [Reddick 1 tab PO TID PRN 05/09/22 05/09/22 History 5-325] Insulin Glargine,Hum.rec.anlog 35 units SQ DAILY 05/09/22 05/09/22 History [Insulin Glargine Solostar] Insulin Lispro [Insulin Lispro See Protocol SQ ACHS 05/09/22 05/09/22 History Kwikpen U-100] Allergies Allergy/AdvReac Type Severity Reaction Status Date / Time ciprofloxacin [From Cipro] Allergy Swelling Verified 05/09/22 10:43 diphenhydramine Allergy Swelling Verified 05/09/22 10:43 [From Benadryl] Influenza Virus Vaccines Allergy Unknown Verified 05/09/22 10:43 iodine Allergy Swelling Verified 05/09/22 10:43 propoxyphene Allergy Swelling Verified 05/09/22 10:43 [From Darvocet-N] red dye Allergy Swelling Verified 05/09/22 10:43 sulfacetamide Allergy Swelling Verified 05/09/22 10:43 [From Sulfamide] yellow dye Allergy Swelling Verified 05/09/22 10:43 Physical Exam Vitals: Vital Signs Temp Pulse Resp BP Pulse Ox 05/09/22 11:44 104 H 22 159/92 98 05/09/22 09:00 98.0 F 131 H 22 156/97 98 Intake and Output 05/08/22 05/09/22 05/09/22 22:59 06:59 14:59 Other: Weight 140.614 kg General appearance: The patient is alert, oriented, appears in no acute distress. Morbidly obese. HET: Head is normocephalic and atraumatic. Conjunctiva pink. Sclera anicteric. Neck: Supple without lymphadenopathy. Trachea midline. Heart: S1 S2. Regular rate and rhythm. Lungs: Clear to auscultation. Abdomen: Soft, left lower quadrant tenderness,, nondistended with bowel sounds. No guarding or rigidity. Skin: No rashes. No jaundice. Extremities: Normal skin color and turgor. No pedal edema. Neurological: No focal deficits. Alert and oriented x3. Results CBC & Chem 7: 05/09/22 09:50 05/09/22 09:50 Labs: Abnormal Lab Results - Last 24 Hours (Table) 05/09/22 05/09/22 05/09/22 Range/Units 09:50 09:50 09:50 Hgb 11.3 L (11.4-16.0) gm/dL RDW 15.8 H (11.5-15.5) % Chloride 112 H (98-107) mmol/L Carbon Dioxide 18 L (22-30) mmol/L BUN 37 H (7-17) mg/dL Creatinine 1.81 H (0.52-1.04) mg/dL Glucose 211 H (74-99) mg/dL AST 54 H (14-36) U/L ALT 49 H (4-34) U/L Stool Occult Blood Positive H (Negative) Assessment and Plan (1) Fecal occult blood test positive Narrative/Plan: 56-year-old female with a history of endometrial cancer diagnosed in January of 2022, presented to the emergency department with vaginal bleeding and questionable rectal bleeding. Patient has not had treatment For endometrial adenocarcinoma, she has seen Dr. Bradford supposed to start radiation therapy. Patient also recently had DVT and was started on Eliquis. Patient states she's had vaginal bleeding for the last 1 week's duration, first just some pink spotting and then states over last 1-2 days stated having heavier vaginal bleeding more dark red. States that she thought may be possible rectal bleeding as well as she had seen some blood on her mattress pad. States she's had some loose stool, thought that she had seen some blood mixed in the stool. She has no nausea no vomiting. Hemoglobin stable 11.3. Recent colonoscopy within the last year done at [facility]. Likely the bleeding that is noted even the positive occult stool is likely from the vaginal bleeding. No plans on endoscopic evaluation at this time. Await recommendations from gynecology and acid adjuster/onc. Current Visit: Yes Status: Acute Code(s): R19.5 - OTHER FECAL ABNORMALITIES SNOMED Code(s): 31835639 (2) Endometrial adenocarcinoma Current Visit: Yes Status: Acute Priority: High Code(s): C54.1 - MALIGNANT NEOPLASM OF ENDOMETRIUM SNOMED Code(s): 669265202 (3) Anemia Current Visit: Yes Status: Acute Code(s): D64.9 - ANEMIA, UNSPECIFIED SNOMED Code(s): 558374633 Plan: 1. Continue symptomatic supportive care 2. Patient may have consistent carbohydrate diet 3. Recommend holding Eliquis 24-48 hours 4. Continue with recommendations from gynecology and acid adjuster/onc 5. Repeat CBC daily transfuse for hemoglobin less than 7 6. No plans on endoscopic evaluation, blood source likely vaginal Thank you consultation, we will continue to follow. Dr. Jean Claude Shields I agree with the dictator's note, documented as a scribe by Coty Nj.
[2022-05-09] MEDS ORDERED: ONDANSETRON 4 MG TAB PO PRN (14:51)
[2022-05-09] MEDS ORDERED: BISMUTH SUBSALICYLATE 4,192 MG/240 ML BOTTLE PO PRN (14:51)
[2022-05-09] MEDS ORDERED: BENZONATATE 100 MG CAP PO PRN (14:51)
[2022-05-09] MEDS ORDERED: SENNOSIDES-DOCUSATE SODIUM 1 EACH TAB PO PRN (14:51)
[2022-05-09 16:31] LABS: Appearance,Urine Cloudy (Clear); Bacteria,Urine Many /hpf; Bilirubin,Urine Negative (Negative); Blood,Urine Large (Negative); Budding Yeast,Urine Few /hpf; Color,Urine Yellow; Glucose,Urine (UA) Trace (Negative); Hyaline Casts,Urine 3 /lpf (0-2); Ketones,Urine Negative (Negative); Leukocyte Esterase,Urine Large (Negative); Mucus,Urine Rare /hpf; Nitrite,Urine Negative (Negative); Protein,Urine 1+ (Negative); RBC,Urine 5 /hpf (0-5); Specific Gravity,Urine 1.016 (1.001-1.035); Squamous Epithelial Cell,Urine <1 /hpf (0-4); Urobilinogen,Urine <2.0 mg/dL (<2.0); WBC,Urine 65 /hpf (0-5)
[2022-05-09 17:00] LABS: Glucose,Whole Blood 218 mg/dL (70-110)
[2022-05-09] MEDS: hydrOXYzine HCL 25 MG TAB PO SCH ×2 (17:15→21:08)
[2022-05-09] MEDS: FUROSEMIDE 20 MG TAB PO SCH (17:16)
[2022-05-09] MEDS ORDERED: DEXTROSE 50% SYRINGE 50 ML IVP PRN ×2 (17:17)
[2022-05-09] MEDS: HYDROcodone/APAP 5-325MG 1 EACH TAB PO PRN (17:27)
[2022-05-09] MEDS: INSULIN ASPART (NovoLOG) 100 UNIT/ML VIAL SQ SCH ×2 (17:27→20:52)
[2022-05-09] MEDS ORDERED: SYMBICORT 160-4.5 MCG INHALER INHALATION SCH (20:00)
[2022-05-09 20:16] LABS: Glucose,Whole Blood 184 mg/dL (70-110)
[2022-05-09] MEDS: IPRATROPIUM-ALBUTEROL 3 ML NEB INHALATION PRN (20:28)
[2022-05-09] MEDS: PRIMIDONE 50 MG TAB PO SCH (20:51)
[2022-05-09] MEDS: GABAPENTIN 300 MG CAP PO SCH (20:51)
[2022-05-09] MEDS: HYDROXYCHLOROQUINE SULFATE 200 MG TAB PO SCH (20:52)
[2022-05-09] MEDS: MONTELUKAST 10 MG TAB PO SCH (20:52)
[2022-05-09] MEDS: MEGESTROL 40 MG TAB PO SCH (20:52)
[2022-05-10] MEDS: HYDROcodone/APAP 5-325MG 1 EACH TAB PO PRN ×3 (00:47→21:06)
--- NOTE | 2022-05-10 02:24 | HP ---
HISTORY AND PHYSICAL CHIEF COMPLAINT: Rectal and vaginal bleeding. HISTORY OF PRESENT ILLNESS: This is a 56-year-old woman with a past medical history of multiple medical problems including endometrial carcinoma, was recently admitted with DVT as well as left hip fracture. The patient was started on anticoagulation. Patient went to rehab. From the [facility], the patient went home. The patient was noted to have weakness and also abdominal discomfort with some vaginal bleeding and suspected GI bleed, admitted for further evaluation and treatment. Hemoglobin is 11.1, see evaluation progress. No history of any fever, rigors, or chills at this time. PAST MEDICAL HISTORY: Reviewed, include DVT, history of recent fracture, surgery. Rest of the history and rest of the chart is also reviewed. HOME MEDICATIONS: Again reviewed include DuoNeb, doses and rest of medications reviewed. ALLERGIES: Reviewed include Cipro. FAMILY HISTORY: History of CHF, diabetes mellitus. SOCIAL HISTORY: No history of smoking or alcohol. REVIEW OF SYSTEMS: A 14-point review is negative except as mentioned earlier. PHYSICAL EXAMINATION: VITAL SIGNS: Pulse is 94, blood pressure 159/92, and respirations 18. HEENT: Conjunctivae normal. NECK: No jugular venous distention. No carotid bruit. CARDIOVASCULAR: S1, S2 muffled. RESPIRATION: Few scattered rhonchi, no crackles. ABDOMEN: Soft, obese. Mild diffuse discomfort. No guarding, no rigidity. LEGS: No edema. NERVOUS SYSTEM: No focal deficit. SKIN: No ulcers or rashes. JOINTS: No active deforming arthropathy. LABORATORY DATA: Reviewed. ASSESSMENT: 1. Possible acute gastrointestinal bleed versus vaginal bleed with acute blood loss anemia. 2. History of recent left hip fracture and surgery. 3. History of deep vein thrombosis. 4. Diabetes mellitus type 2. 5. History of asthma. 6. History of rheumatoid arthritis. 7. History of endometrial adenocarcinoma, no treatment yet. 8. Morbid obesity. RECOMMENDATIONS: This is a 56-year-old woman who presented with multiple complex medical issues. As mentioned, we will monitor the patient closely. Watch for any vaginal bleeding as well as rectal bleeding. Otherwise, obtain Hematology Oncology evaluation and gastroenterology evaluation, possible endoscope. So, I would also recommend a CAT scan of the abdomen and pelvis, resume the home medications, avoid antiplatelet agents and anticoagulants. Prognosis extremely guarded because of multiple complex medical issues. Further recommendations to follow. See orders for details. MMODL / IJN: [id number] /
[2022-05-10 07:06] LABS: Glucose,Whole Blood 224 mg/dL (70-110)
[2022-05-10] MEDS: IPRATROPIUM-ALBUTEROL 3 ML NEB INHALATION PRN ×4 (07:15→20:53)
[2022-05-10] MEDS: SYMBICORT 160-4.5 MCG INHALER INHALATION SCH ×2 (07:15→20:54)
[2022-05-10] MEDS: FENOFIBRATE 160 MG TAB PO SCH (08:20)
[2022-05-10] MEDS: FUROSEMIDE 20 MG TAB PO SCH (08:20)
[2022-05-10] MEDS: HYDROXYCHLOROQUINE SULFATE 200 MG TAB PO SCH ×2 (08:20→21:02)
[2022-05-10] MEDS: FLUoxetine HCL 20 MG CAP PO SCH (08:20)
[2022-05-10] MEDS: hydrOXYzine HCL 25 MG TAB PO SCH ×4 (08:20→21:02)
[2022-05-10] MEDS: GABAPENTIN 300 MG CAP PO SCH ×2 (08:23→21:02)
[2022-05-10] MEDS: MEGESTROL 40 MG TAB PO SCH ×2 (08:23→21:02)
[2022-05-10] MEDS: METOPROLOL SUCCINATE (ER) 25 MG TAB.ER.24H PO SCH (08:23)
[2022-05-10] MEDS: METOPROLOL SUCCINATE (ER) 50 MG TAB.ER.24H PO SCH (08:23)
[2022-05-10] MEDS: INSULIN DETEMIR (LEVEMIR) 100 UNIT/ML SYR SQ SCH (08:30)
[2022-05-10] MEDS: INSULIN ASPART (NovoLOG) 100 UNIT/ML VIAL SQ SCH ×4 (08:34→21:02)
--- NOTE | 2022-05-10 09:21 | P.PN ---
Subjective Progress Note Date: 05/10/22 Principal diagnosis: vaginal bleeding 56-year-old female who presented to the emergency department with complaints of vaginal bleeding. Recent diagnosis endometrial adenocarcinoma diagnosed in January 2022. Patient has not started any treatment thus far. Patient also has a past medical history of diabetes mellitus, morbid obesity, upper extremity DVT on eliquis, hypertension, chronic kidney disease, rheumatoid arthritis and Graves' disease. Patient states she recently had an appointment with Dr. Bradford and will be getting ready to start radiation therapy. Patient states she started having vaginal bleeding about one week ago initially was light pink and just spotting however over the last 1-2 days she started having heavier vaginal bleeding. Patient had reported to the ER that she thought maybe she could've had rectal bleeding as well however it sounds as though it's all vaginal bleeding that is pooling into the back and may have been mixed in with her stool. She has no previous history of a GI bleed. Last colonoscopy was about 1 year ago done at [facility] which she states was normal. States that she is having abdominal pain that is similar to the abdominal pain that she had when she was diagnosed with her endometrial cancer. Admitting labs WBC 9.0 hemoglobin 11.3 hematocrit 35 platelet count 299,000 sodium 142 potassium 4.9 BUN 37 creatinine 1.8 total bilirubin 0.6 AST 54 ALT 49 alkaline phosphatase 102 lipase 244 stool occult blood positive. 05/10/2022: Tamela was seen this morning as a follow-up for questionable GI bleed versus vaginal bleeding. Patient states she's had no further bowel movements. She's had no rectal bleeding. States vaginal bleeding is subsiding some. No abdominal pain, nausea or vomiting. Today's labs are currently pending. Patient is awaiting consultation with oncology, gynecology, and radiation oncologist oncologist. Objective - Vital Signs Vital signs: Vital Signs Temp 97.7 F 05/10/22 01:59 Pulse 118 H 05/10/22 01:59 Resp 16 05/10/22 01:59 BP 106/60 05/10/22 01:59 Pulse Ox 99 05/10/22 01:59 FiO2 Intake & Output 05/09/22 05/09/22 05/10/22 06:59 18:59 06:59 Intake Total 600 Balance 600 Weight 140.614 kg Intake: Oral 600 Other: Voiding Method Bedside Commode # Voids 1 1 - Exam General appearance: The patient is alert, oriented, appears in no acute distress. Morbidly obese. HET: Head is normocephalic and atraumatic. Conjunctiva pink. Sclera anicteric. Neck: Supple without lymphadenopathy. Abdomen: Soft, nontender, nondistended with bowel sounds. No guarding or rigidity. Extremities: Normal skin color and turgor. No pedal edema Skin: No rashes, no jaundice Neurological: No focal deficits. Alert and oriented. - Labs CBC & Chem 7: 05/09/22 09:50 05/09/22 09:50 Labs: Abnormal Lab Results - Last 24 Hours (Table) 05/09/22 05/09/22 05/09/22 Range/Units 09:40 09:50 09:50 Hgb 11.3 L (11.4-16.0) gm/dL RDW 15.8 H (11.5-15.5) % Chloride (98-107) mmol/L Carbon Dioxide (22-30) mmol/L BUN (7-17) mg/dL Creatinine (0.52-1.04) mg/dL Glucose (74-99) mg/dL POC Glucose (mg/dL) (70-110) mg/dL AST (14-36) U/L ALT (4-34) U/L Urine Appearance Cloudy H (Clear) Urine Protein 1+ H (Negative) Urine Glucose (UA) Trace H (Negative) Urine Blood Large H (Negative) Ur Leukocyte Esterase Large H (Negative) Urine WBC 65 H (0-5) /hpf Urine Bacteria Many H (None) /hpf Hyaline Casts 3 H (0-2) /lpf Urine Mucus Rare H (None) /hpf Urine Yeast (Budding) Few H (None) /hpf Stool Occult Blood Positive H (Negative) 05/09/22 05/09/22 05/09/22 Range/Units 09:50 16:59 20:05 Hgb (11.4-16.0) gm/dL RDW (11.5-15.5) % Chloride 112 H (98-107) mmol/L Carbon Dioxide 18 L (22-30) mmol/L BUN 37 H (7-17) mg/dL Creatinine 1.81 H (0.52-1.04) mg/dL Glucose 211 H (74-99) mg/dL POC Glucose (mg/dL) 218 H 184 H (70-110) mg/dL AST 54 H (14-36) U/L ALT 49 H (4-34) U/L Urine Appearance (Clear) Urine Protein (Negative) Urine Glucose (UA) (Negative) Urine Blood (Negative) Ur Leukocyte Esterase (Negative) Urine WBC (0-5) /hpf Urine Bacteria (None) /hpf Hyaline Casts (0-2) /lpf Urine Mucus (None) /hpf Urine Yeast (Budding) (None) /hpf Stool Occult Blood (Negative) Assessment and Plan (1) Fecal occult blood test positive Narrative/Plan: 56-year-old female with a history of endometrial cancer diagnosed in January of 2022, presented to the emergency department with vaginal bleeding and questionable rectal bleeding. Patient has not had treatment For endometrial adenocarcinoma, she has seen Dr. Bradford supposed to start radiation therapy. Patient also recently had DVT and was started on Eliquis. Patient states she's had vaginal bleeding for the last 1 week's duration, first just some pink spotting and then states over last 1-2 days stated having heavier vaginal bleeding more dark red. States that she thought may be possible rectal bleeding as well as she had seen some blood on her mattress pad. States she's had some loose stool, thought that she had seen some blood mixed in the stool. She has no nausea no vomiting. Hemoglobin stable 11.3. Recent colonoscopy within the last year done at [facility]. Likely the bleeding that is noted even the positive occult stool is likely from the vaginal bleeding. No plans on endoscopic evaluation at this time. Await recommendations from gynecology and care transitions manager/onc. patient denies any rectal bleeding or blood in stool. She has not had any bowel movements today. States vaginal bleeding is slowing down. Current Visit: Yes Status: Acute Code(s): R19.5 - OTHER FECAL ABNORMALITIES SNOMED Code(s): 87103308 (2) Endometrial adenocarcinoma Current Visit: Yes Status: Acute Priority: High Code(s): C54.1 - MALIGNANT NEOPLASM OF ENDOMETRIUM SNOMED Code(s): 872278870 (3) Anemia Current Visit: Yes Status: Acute Code(s): D64.9 - ANEMIA, UNSPECIFIED SNOMED Code(s): 791369066 Plan: 1. Continue symptomatic supportive care 2. Patient may have consistent carbohydrate diet 3. Continue with recommendations from gynecology and oncology 4. No plans on endoscopic evaluation, blood source likely vaginal Thank you consultation, we will sign off at this time. Dr. Jean Claude Shields I agree with the dictator's note, documented as a scribe by Coty Nj.
--- NOTE | 2022-05-10 09:23 | P.CON ---
Consult Note - . Consult date: 05/10/22 Assessment/Plan:: This is a 56-year-old female 2 para 0020 who was diagnosed by me with D&C last January with stage I endometrial cancer. [employer] oncology service was consulted, and she saw Dr. thor levy. Because of multiple comorbidities, surgery was not deemed appropriate and radiation therapy was recommended. She has seen Dr. Abner Bradford for same, he is recommending MRI to more adequately stage the patient prior to therapy. MRI was attempted here but unable to be completed secondary to patient's size. She was then admitted to [facility] for rehabilitation physically. She was recently discharged and had started in home therapy. Yesterday she noted vaginal bleeding in the bed and presented to the emergency room where she was admitted. Past medical history is significant for asthma, C. difficile, coated February 2022, diabetes mellitus, hypercholesterolemia, hypothyroidism, stage III kidney failure, lupus, morbid obesity, hypoventilation syndrome on nasal cannula oxygen at home 4 L, GERD, peripheral neuropathy, rheumatoid arthritis, sleep apnea. Past surgical history significant for bilateral knee repair 1999, D&C and hysteroscopy by me in January 2022, suction D&C 2 for missed abortions in 1996 and 1994. ALLERGIES include red dye, yellow dye, iodine, ciprofloxacin, Benadryl. Current medications include Megace 40 mg orally twice daily. Please see chart for extensive list of medication. Social history patient denies alcohol tobacco or drug use. Family history significant for congestive heart failure, diabetes, hypertension. On exam patient is 66 inches in height, 310 pounds, vital signs are stable and she is afebrile. The general physical exam is significant for morbid obesity, HEENT exam is otherwise negative. She has poor dentition. Neck is soft and supple with no adenopathy. Chest is clear in all beach posteriorly and anteriorly. Cardiac exam reveals regular rate and rhythm. Abdomen is morbidly obese and lying on the bed, nontender with no obvious organosplenomegaly. Extremities reveal limited mobility, limited range of motion, no edema. Pelvic exam reveals normal external genitalia. Cervix is small and firm. No obvious vaginal bleeding at this time. Rectal exam was also performed, no masses encountered. Hemoccult sampling unable to be performed secondary to contamination from the vagina. Impression: Known well-differentiated adenocarcinoma of the uterus, [employer] oncology and radiation oncology consults already obtained. Plan is for MRI then beginning radiation therapy. Patient is aware of this plan. She states she has had no further vaginal bleeding since admission yesterday. Hemoglobin on admission 11.3. Patient is clinically stable. Plan: I understand Dr. Bradford has been counseled that as well regarding the plan for radiation therapy. Continue Megace. At this time there are no further recommendations from my service as a general fiscal manager. Thank you for the consultation.
[2022-05-10 11:29] LABS: Glucose,Whole Blood 229 mg/dL (70-110)
[2022-05-10 11:36] LABS: African American GFR (CKD) 41.6 (60.0-200.0); Albumin/Globulin Ratio 1.9 (1.60-3.17); Anion Gap 11.9 mmol/L (10.00-18.00); BUN/Creat Ratio 19.88 Ratio (12.00-20.00); Blood Urea Nitrogen 31.8 mg/dL (9.0-27.0); Calcium 9.5 mg/dL (8.7-10.3); Carbon Dioxide 19.1 mmol/L (20.0-27.5); Globulin 2.1 g/dL (1.6-3.3); Non-African American GFR(CKD) 35.9 (60.0-200.0); Potassium 4.4 mmol/L (3.5-5.5); Total Bilirubin 0.4 mg/dL (0.30-1.20); Total Protein 6.1 g/dL (6.2-8.2)
[2022-05-10 11:53] LABS: Basophils # (A) 0.05 X 10*3/uL (0.00-0.10); Basophils % (A) 0.6 %; Eosinophils # (A) 0.38 X 10*3/uL (0.04-0.35); Eosinophils % (A) 4.8 %; HCT 31.7 % (37.2-46.3); HGB 9.5 g/dL (12.0-15.0); Immature Grans, Automated 0.3 %; Lymphocytes # (A) 1.99 X 10*3/uL (0.90-5.00); Lymphocytes % (A) 25.3 %; MCH 27.1 pg (27.0-32.0); MCV 90.3 fL (80.0-97.0); Mean Platelet Volume 10.9 fL (9.5-12.2); Monocytes # (A) 0.55 X 10*3/uL (0.20-1.00); NRBC Per 100 WBC 0 /100 WBCS (0.0-0.0); Neutrophils # (A) 4.88 X 10*3/uL (1.80-7.70); Platelet Count 290 X 10*3/uL (140-440); RBC 3.51 X 10*6/uL (4.10-5.20); RDW 15.7 % (11.5-14.5); WBC 7.87 X 10*3/uL (4.50-10.00)
--- NOTE | 2022-05-10 11:53 | P.CONS ---
History of Present Illness - Reason for Consult Consult date: 05/10/22 Endometrial cancer with bleeding - Chief Complaint "My bleeding stopped" - History of Present Illness Ms. 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 She is well-known to my partner, Dr. Bradford. The patient was previously deemed inoperable. We attempted radiation simulation for external beam radiation therapy. However, the patient was unable to lie supine and could not tolerate the immobilization necessary to pursue treatment. As such, the decision was made to start her on Megace and attempt MRI to assess if she could be treated with brachytherapy as monotherapy. However, the patient could not tolerate the MRI due to body habitus. She notes today that the bleeding largely subsided on Megace, but this week it recurred and so she presented to the hospital. A gastrointestinal source was not suspected. She notes that the bleeding has completely subsided as of this morning. She denies urinary issues or discharge. She is eager to go home. Her hemoglobin is 11.3. Review of Systems All systems: negative (vaginal bleeding has subsided) Past Medical History Past Medical History: Cancer, Diabetes Mellitus, Deep Vein Thrombosis (DVT), Hypertension, Renal Disease, Rheumatoid Arthritis (RA), Thyroid Disorder Additional Past Medical History / Comment(s): O2 @ 4L. SLE LUPUS. STAGE 3 KIDNEY DISEASE. Leukemia, GRAVES DZ , kidney stones, gout, Uterine cancer (recent diagnosis, no treatment yet) History of Any Multi-Drug Resistant Organisms: Other MDRO Past Surgical History: No Surgical Hx Reported Additional Past Surgical History / Comment(s): BILATERAL ARTHROSCOPY KNEES. D & C (MISCARRIAGES). Past Anesthesia/Blood Transfusion Reactions: No Reported Reaction Past Psychological History: Anxiety Smoking Status: Never smoker Past Alcohol Use History: None Reported Past Drug Use History: None Reported - Past Family History Mother Family Medical History: Congestive Heart Failure (CHF), Diabetes Mellitus Father Family Medical History: Congestive Heart Failure (CHF), Dialysis, Hypertension Medications and Allergies Home Medications Medication Instructions Recorded Confirmed Type Montelukast [Singulair] 10 mg PO HS 01/09/17 05/09/22 History gemfibroziL [Lopid] 600 mg PO BID 01/09/17 05/09/22 History Albuterol Inhaler [Ventolin Hfa 2 puff INHALATION RT-Q4H PRN 01/14/17 05/09/22 History Inhaler] allopurinoL [Zyloprim] 100 mg PO BID 01/21/22 05/09/22 History Atorvastatin [Lipitor] 10 mg PO HS 02/15/22 05/09/22 History Ondansetron [Zofran] 4 mg PO Q12HR PRN 02/15/22 05/09/22 History Acetaminophen Tab [Tylenol] 650 mg PO Q6HR PRN tab 03/28/22 05/09/22 Rx Aspirin 81 mg PO BID tab 03/28/22 05/09/22 Rx Primidone [Mysoline] 50 mg PO HS tab 03/28/22 05/09/22 Rx Sennosides-Docusate Sodium 2 tab PO DAILY PRN 04/02/22 05/09/22 History [Senokot-S] Apixaban [Eliquis] 5 mg PO BID 30 Days #60 tab 04/10/22 05/09/22 Rx Megestrol [Megace] 40 mg PO BID #60 tablet 04/10/22 05/09/22 Rx Budesonide/Formoterol Fumarate 1 puff INHALATION RT-BID 04/13/22 05/09/22 History [Symbicort 160-4.5 Mcg Inhaler] Hydroxychloroquine Sulfate 200 mg PO BID 04/13/22 05/09/22 History [Plaquenil] Metoprolol Succinate (ER) [Toprol 25 mg PO DAILY 04/13/22 05/09/22 History XL] Metoprolol Succinate (ER) [Toprol 50 mg PO DAILY 04/13/22 05/09/22 History XL] hydrOXYzine HCL [Atarax] 25 mg PO QID 04/13/22 05/09/22 History Benzonatate [Tessalon Perles] 100 mg PO TID PRN #20 cap 04/16/22 05/09/22 Rx Ipratropium-Albuterol Nebulize 3 ml INHALATION RT-QID PRN each 04/16/22 05/09/22 Rx [Duoneb 0.5 mg-3 mg/3 ml Soln] Gabapentin 600 mg PO BID #6 tab 04/17/22 05/09/22 Rx Bismuth Subsalicylate 524 mg PO Q4H PRN 05/09/22 05/09/22 History [Pepto-Bismol] Collagenase [Santyl Ointment] 1 applic TOPICAL HS 05/09/22 05/09/22 History FLUoxetine HCL [PROzac] 40 mg PO DAILY 05/09/22 05/09/22 History Ferrous Sulfate [Iron (65 MG 325 mg PO HS 05/09/22 05/09/22 History Elemental)] Furosemide [Lasix] 60 mg PO DAILY 05/09/22 05/09/22 History HYDROcodone/APAP 5-325MG [[place] 1 tab PO TID PRN 05/09/22 05/09/22 History 5-325] Insulin Glargine,Hum.rec.anlog 35 units SQ DAILY 05/09/22 05/09/22 History [Insulin Glargine Solostar] Insulin Lispro [Insulin Lispro See Protocol SQ ACHS 05/09/22 05/09/22 History Kwikpen U-100] Allergies Allergy/AdvReac Type Severity Reaction Status Date / Time ciprofloxacin [From Cipro] Allergy Swelling Verified 05/09/22 10:43 diphenhydramine Allergy Swelling Verified 05/09/22 10:43 [From Benadryl] Influenza Virus Vaccines Allergy Unknown Verified 05/09/22 10:43 iodine Allergy Swelling Verified 05/09/22 10:43 propoxyphene Allergy Swelling Verified 05/09/22 10:43 [From Darvocet-N] red dye Allergy Swelling Verified 05/09/22 10:43 sulfacetamide Allergy Swelling Verified 05/09/22 10:43 [From Sulfamide] yellow dye Allergy Swelling Verified 05/09/22 10:43 Physical Exam Vitals: Vital Signs Temp Pulse Pulse Resp BP BP Pulse Ox 05/10/22 07:30 88 05/10/22 07:15 92 05/10/22 07:05 97.9 F 93 18 130/72 99 05/10/22 01:59 97.7 F 118 H 16 106/60 99 05/09/22 20:42 108 H 18 05/09/22 20:29 105 H 16 05/09/22 20:00 18 05/09/22 19:27 98.9 F 109 H 16 158/80 98 05/09/22 16:04 100 05/09/22 15:54 100 01/26/23 15:20 98.5 F 100 18 157/77 99 05/09/22 14:10 94 18 159/92 05/09/22 11:44 104 H 22 159/92 98 Intake and Output 05/09/22 05/10/22 05/10/22 22:59 06:59 14:59 Intake Total 600 Balance 600 Intake: Oral 600 Other: Voiding Method Bedside Commode # Voids 2 1 - Constitutional General appearance: morbidly obese, no acute distress - Respiratory Respiratory: negative: prolonged expiration, prolonged inspiration - Psychiatric Psychiatric: appropriate affect, intact judgment & insight Results CBC & Chem 7: 05/09/22 09:50 05/10/22 06:22 Labs: Abnormal Lab Results - Last 24 Hours (Table) 05/09/22 05/09/22 05/09/22 Range/Units 09:40 16:59 20:05 Chloride (96-109) mmol/L Carbon Dioxide (20.0-27.5) mmol/L BUN (9.0-27.0) mg/dL Creatinine (0.6-1.5) mg/dL Est GFR (CKD-EPI)AfAm (60.0-200.0) Est GFR (CKD-EPI)NonAf (60.0-200.0) Glucose (70-110) mg/dL POC Glucose (mg/dL) 218 H 184 H (70-110) mg/dL AST (13-35) U/L ALT (8-44) U/L Total Protein (6.2-8.2) g/dL Urine Appearance Cloudy H (Clear) Urine Protein 1+ H (Negative) Urine Glucose (UA) Trace H (Negative) Urine Blood Large H (Negative) Ur Leukocyte Esterase Large H (Negative) Urine WBC 65 H (0-5) /hpf Urine Bacteria Many H (None) /hpf Hyaline Casts 3 H (0-2) /lpf Urine Mucus Rare H (None) /hpf Urine Yeast (Budding) Few H (None) /hpf 05/10/22 05/10/22 05/10/22 Range/Units 06:22 07:05 11:27 Chloride 111 H (96-109) mmol/L Carbon Dioxide 19.1 L (20.0-27.5) mmol/L BUN 31.8 H (9.0-27.0) mg/dL Creatinine 1.6 H (0.6-1.5) mg/dL Est GFR (CKD-EPI)AfAm 41.6 L (60.0-200.0) Est GFR (CKD-EPI)NonAf 35.9 L (60.0-200.0) Glucose 189 H (70-110) mg/dL POC Glucose (mg/dL) 224 H 229 H (70-110) mg/dL AST 55 H (13-35) U/L ALT 53 H (8-44) U/L Total Protein 6.1 L (6.2-8.2) g/dL Urine Appearance (Clear) Urine Protein (Negative) Urine Glucose (UA) (Negative) Urine Blood (Negative) Ur Leukocyte Esterase (Negative) Urine WBC (0-5) /hpf Urine Bacteria (None) /hpf Hyaline Casts (0-2) /lpf Urine Mucus (None) /hpf Urine Yeast (Budding) (None) /hpf Assessment and Plan Assessment: Ms. 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 Plan: Unfortunately, Ms. Diaz is not an operative candidate and could not tolerate external beam radiation therapy simulation. There is no need for acute intervention as her bleeding has subsided. Megace appears to be somewhat effective despite this instance of breakthrough bleeding, but will not be a curative option. I will have Dr. Bradford follow-up with her early next week to discuss next steps. Brachytherapy as monotherapy could be a potential option though I suspect the patient would need anesthesia with each treatment. Alternatively, she could undergo surgical re-evaluation in light of the fact that non-surgical options have not been viable to-date. Tye Weldon MD Time with Patient: Less than 30
[2022-05-10 11:54] LABS: RBC Morphology NORMAL
[2022-05-10] MEDS ORDERED: DESMOPRESSIN ACETATE 40 MCG in SODIUM CHLORIDE 0.9% 50 ML IVPB ONE (16:36)
[2022-05-10 16:51] LABS: Glucose,Whole Blood 187 mg/dL (70-110)
--- NOTE | 2022-05-10 17:59 | CT ---
EXAMINATION TYPE: CT abdomen pelvis wo con CT DLP: 2097 mGycm, Automated exposure control for dose reduction was used. DATE OF EXAM: 05/10/2022 5:44 PM COMPARISON: CT abdomen pelvis most recent from 02/14/2022. CLINICAL INDICATION:Female, 56 years old with history of abdominal pain, r/o hematoma; anterior abdom inal pain, r/o hematoma TECHNIQUE: Axial CT of the abdomen and pelvis. Sagittal and coronal reformats were created on a [employer] workstation. Contrast used: None Oral contrast used: without Oral Contrast FINDINGS: LOWER CHEST: The heart is mildly enlarged for size. ABDOMEN LIVER: Unremarkable GALLBLADDER AND BILE DUCTS: Layering increased densities within the lumen consistent with gallstones are present. PANCREAS: Unremarkable. SPLEEN: Unremarkable. ADRENAL GLANDS: Unremarkable. KIDNEYS AND URETERS: No evidence of hydronephrosis or renal calculus. The ureters are unremarkable. PELVIS BLADDER: Unremarkable REPRODUCTIVE: Heterogenous endometrium which is suboptimally evaluated given lack of IV contrast and CT technique. ABDOMEN & PELVIS STOMACH AND BOWEL: No evidence of bowel obstruction. PERITONEUM/RETROPERITONEUM: No evidence of pneumoperitoneum or free fluid. . VASCULATURE: No evidence of aortic aneurysm. MUSCULOSKELETAL: No acute osseous abnormalities, left hip excision hardware hardware appears in appro priate position. LYMPH NODES: No gross evidence for lymphadenopathy. SOFT TISSUE/ABDOMINAL WALL: The left subcutaneous tissues of the abdomen are out of the [id number] . No evidence for hematoma in the visualized portions. Fat-containing umbilical hernia partially visu alized. IMPRESSION: 1. No evidence of hematoma within the mytiy-[id number]. The left half of the abdomen subcutaneous tissu es is not in the scmhq-[id number]-rgyy. 2. Heterogenous endometrium consider further evaluation with ultrasound to rule out underlying malig reena. 3. Cholelithiasis.
--- NOTE | 2022-05-10 19:27 | US ---
EXAMINATION TYPE: US venous doppler duplex UE RT DATE OF EXAM: 05/10/2022 COMPARISON: 04/05/22 CLINICAL HISTORY: hx of DVT RUE. Hx of clot in cephalic vein. Pt stated she was on blood thinners for a month and just stopped today. Exam limited due to pt positioning and pt being morbidly obese SIDE PERFORMED: Right Right Arm: No evidence of DVT. Grayscale, color doppler, spectral doppler imaging performed of the d eep veins of the upper extremities. There is normal flow, compressibility and vascular waveforms. IMPRESSION: No evidence for right upper extremity deep vein thrombosis.
[2022-05-10 20:39] LABS: Glucose,Whole Blood 199 mg/dL (70-110)
[2022-05-10] MEDS: MONTELUKAST 10 MG TAB PO SCH (21:02)
[2022-05-10] MEDS: PRIMIDONE 50 MG TAB PO SCH (21:02)
[2022-05-11] MEDS: HYDROcodone/APAP 5-325MG 1 EACH TAB PO PRN ×3 (04:20→21:24)
--- NOTE | 2022-05-11 06:35 | PN ---
PROGRESS NOTE DATE OF SERVICE: 05/10/2022 HISTORY OF PRESENT ILLNESS: This is a 56-year-old woman who was admitted with possible vaginal bleeding, is being closely monitored. Hemoglobin has gone down slightly today. The patient also had some abdominal discomfort. Dr. Martin has recommended the CT scan of the abdomen and pelvis which showed no evidence of any hematoma. endometrium was also noted with cholelithiasis. PAST MEDICAL HISTORY: Reviewed. REVIEW OF SYSTEMS: A 14-point review is negative as mentioned earlier. CURRENT MEDICATIONS: Reviewed include DuoNeb, dose and rest of medications are noted. PHYSICAL EXAMINATION: VITAL SIGNS: Pulse is 64, blood pressure ntd, respirations 18, temperature normal. CHEST: Clear to auscultation. The patient has a few scattered rhonchi. ABDOMEN: Soft, obese, nontender. LEGS: No edema. No swelling. LABORATORY DATA: Hemoglobin 9.4. The rest of the labs are noted. ASSESSMENT: 1. Possible vaginal bleeding from endometrial carcinoma with acute blood loss anemia. 2. History of recent left hip fracture and surgery. 3. History of deep venous thrombosis. 4. Diabetes mellitus type 2. 5. History of asthma. 6. History of rheumatoid arthritis. 7. History of endometrial carcinoma, no treatment yet. 8. Morbid obesity. RECOMMENDATIONS: Continue current management. The patient has continuous oozing at this time. Repeat labs. Closely follow with multiple consultants. The patient has also had evaluation by [facility] who recommended radiation therapy because of apparent high risk of the surgery because of the cardiac and other comorbidities. We will continue to monitor, closely follow, and the prognosis is extremely guarded because of multiple complex medical issues, as mentioned, as listed above _ detailed discussed with and family. Further recommendations to follow. MMODL / IJN: [id number] / AFIA
[2022-05-11 07:43] LABS: Glucose,Whole Blood 215 mg/dL (70-110)
[2022-05-11] MEDS: SYMBICORT 160-4.5 MCG INHALER INHALATION SCH ×2 (07:45→19:58)
[2022-05-11 08:47] LABS: Basophils # (A) 0.05 X 10*3/uL (0.00-0.10); Basophils % (A) 0.7 %; Eosinophils # (A) 0.36 X 10*3/uL (0.04-0.35); Eosinophils % (A) 4.8 %; HCT 28.1 % (37.2-46.3); HGB 8.3 g/dL (12.0-15.0); Immature Grans, Automated 0.4 %; Lymphocytes # (A) 1.77 X 10*3/uL (0.90-5.00); Lymphocytes % (A) 23.8 %; MCHC 29.5 g/dL (32.0-37.0); MCV 91.5 fL (80.0-97.0); Mean Platelet Volume 10.5 fL (9.5-12.2); Monocytes # (A) 0.59 X 10*3/uL (0.20-1.00); Monocytes % (A) 7.9 %; NRBC Per 100 WBC 0 /100 WBCS (0.0-0.0); Neutrophils # (A) 4.64 X 10*3/uL (1.80-7.70); Neutrophils % (A) 62.4 %; Platelet Count 260 X 10*3/uL (140-440); RBC 3.07 X 10*6/uL (4.10-5.20); RDW 15.9 % (11.5-14.5); WBC 7.44 X 10*3/uL (4.50-10.00)
[2022-05-11 09:13] LABS: African American GFR (CKD) 28.3 (60.0-200.0); Albumin 3.9 g/dL (3.8-4.9); Albumin/Globulin Ratio 1.95 (1.60-3.17); BUN/Creat Ratio 16.45 Ratio (12.00-20.00); Blood Urea Nitrogen 36.2 mg/dL (9.0-27.0); Calcium 8.9 mg/dL (8.7-10.3); Non-African American GFR(CKD) 24.4 (60.0-200.0); Potassium 4.7 mmol/L (3.5-5.5); Total Bilirubin 0.3 mg/dL (0.30-1.20); Total Protein 5.9 g/dL (6.2-8.2)
[2022-05-11] MEDS: INSULIN ASPART (NovoLOG) 100 UNIT/ML VIAL SQ SCH ×4 (09:38→20:19)
[2022-05-11] MEDS: hydrOXYzine HCL 25 MG TAB PO SCH ×4 (09:38→21:24)
[2022-05-11] MEDS: HYDROXYCHLOROQUINE SULFATE 200 MG TAB PO SCH ×2 (09:38→20:18)
[2022-05-11] MEDS: INSULIN DETEMIR (LEVEMIR) 100 UNIT/ML SYR SQ SCH (09:38)
[2022-05-11] MEDS: METOPROLOL SUCCINATE (ER) 50 MG TAB.ER.24H PO SCH (09:39)
[2022-05-11] MEDS: FENOFIBRATE 160 MG TAB PO SCH (09:39)
[2022-05-11] MEDS: GABAPENTIN 300 MG CAP PO SCH ×2 (09:39→20:18)
[2022-05-11] MEDS: FUROSEMIDE 20 MG TAB PO SCH (09:39)
[2022-05-11] MEDS: METOPROLOL SUCCINATE (ER) 25 MG TAB.ER.24H PO SCH (09:40)
[2022-05-11] MEDS: FLUoxetine HCL 20 MG CAP PO SCH (09:40)
[2022-05-11] MEDS: MEGESTROL 40 MG TAB PO SCH ×2 (09:40→20:18)
[2022-05-11] MEDS: SODIUM FERRIC GLUCONAT-SUCROSE 125 MG in SODIUM CHLORIDE 0.9% 100 ML IVPB SCH (09:41)
--- NOTE | 2022-05-11 10:07 | P.CONS ---
History of Present Illness - Reason for Consult Consult date: 05/10/22 malignancy Requesting physician: Isabela Shelley - Chief Complaint vaginal bleeding - History of Present Illness This is a 56-year-old female with an extensive health history. We have been consulted for history of endometrial adenocarcinoma. Patient presented to the ER with c/o vaginal bleeding, intermittent over the last 1 week that has worsened over the last couple days. Pt reports since admission vaginal bleeding has improved. Patient was diagnosed with endometrial adenocarcinoma in January 2022 and is currently on megace which has been prescribed by End User Consultant/Onc, follows with Rad Onc Dr. Bradford, but has not received XRT treatment yet. Pt reports she may have had blood in stool but is unsure if blood was from vaginal bleeding. Denies history of a GI bleed. Last colonoscopy was approx 1 year ago, which was normal per pt. She also reports having right sided abdominal pain. Denies N/V, fever and chills. Labs today show WBC 7.8, hemoglobin 9.5 hematocrit 31.7, platelet 290,000. Stool occult blood positive. Below is from consult dated 04/14/22 We were asked to see pt for recently diagnosed endometrioid well-differentiated FIGO 1 adenocarcinoma (clinically stage I) and recent nonocclusive DVT of the right internal jugular, subclavian, and axillary veins who presented early Apr with progressive weakness. She had been recently admitted for DVT of the right internal jugular, subclavian, and axillary veins for which she was placed on Eliquis 5 mg twice daily. She was started on Megace 40 mg twice daily for treatment of her endometrial adenocarcinoma as she has been deemed not to be a candidate for surgery due to multiple medical comorbidities. There has been delay in initiating radiation therapy due to multiple admissions over the past 2 months for issues including UTI and left femur fracture requiring ORIF with IM nail placement. She was discharged on 04/10/2022 on therapeutic Eliquis and Megace 40 mg twice daily. Shortly after arriving home, she began to develop increased weakness, fatigue, myalgias, rhinorrhea, and cough. She has been havi ng increased wheezing, SOB, nausea with few episodes of nonbilious non-bloody emesis, diarrhea. She was afebrile, but was noted to be tachycardic to the 110s, Hgb 8.5, platelet count 245. Creatinine 1.51, which was improved from prior measurement on discharge. She was positive for Influenza A, treated and discharged. Review of Systems 10 point ROS negative except as stated in HPI Past Medical History Past Medical History: Cancer, Diabetes Mellitus, Deep Vein Thrombosis (DVT), Hypertension, Renal Disease, Rheumatoid Arthritis (RA), Thyroid Disorder Additional Past Medical History / Comment(s): O2 @ 4L. SLE LUPUS. STAGE 3 KIDNEY DISEASE. Leukemia, GRAVES DZ , kidney stones, gout, Uterine cancer (recent diagnosis, no treatment yet) History of Any Multi-Drug Resistant Organisms: Other MDRO Past Surgical History: No Surgical Hx Reported Additional Past Surgical History / Comment(s): BILATERAL ARTHROSCOPY KNEES. D & C (MISCARRIAGES). Past Anesthesia/Blood Transfusion Reactions: No Reported Reaction Past Psychological History: Anxiety Smoking Status: Never smoker Past Alcohol Use History: None Reported Past Drug Use History: None Reported - Past Family History Mother Family Medical History: Congestive Heart Failure (CHF), Diabetes Mellitus Father Family Medical History: Congestive Heart Failure (CHF), Dialysis, Hypertension Medications and Allergies Home Medications Medication Instructions Recorded Confirmed Type Montelukast [Singulair] 10 mg PO HS 01/09/17 05/09/22 History gemfibroziL [Lopid] 600 mg PO BID 01/09/17 05/09/22 History Albuterol Inhaler [Ventolin Hfa 2 puff INHALATION RT-Q4H PRN 01/14/17 05/09/22 History Inhaler] allopurinoL [Zyloprim] 100 mg PO BID 01/21/22 05/09/22 History Atorvastatin [Lipitor] 10 mg PO HS 02/15/22 05/09/22 History Ondansetron [Zofran] 4 mg PO Q12HR PRN 02/15/22 05/09/22 History Acetaminophen Tab [Tylenol] 650 mg PO Q6HR PRN tab 03/28/22 05/09/22 Rx Aspirin 81 mg PO BID tab 03/28/22 05/09/22 Rx Primidone [Mysoline] 50 mg PO HS tab 03/28/22 05/09/22 Rx Sennosides-Docusate Sodium 2 tab PO DAILY PRN 04/02/22 05/09/22 History [Senokot-S] Apixaban [Eliquis] 5 mg PO BID 30 Days #60 tab 04/10/22 05/09/22 Rx Megestrol [Megace] 40 mg PO BID #60 tablet 04/10/22 05/09/22 Rx Budesonide/Formoterol Fumarate 1 puff INHALATION RT-BID 04/13/22 05/09/22 History [Symbicort 160-4.5 Mcg Inhaler] Hydroxychloroquine Sulfate 200 mg PO BID 04/13/22 05/09/22 History [Plaquenil] Metoprolol Succinate (ER) [Toprol 25 mg PO DAILY 04/13/22 05/09/22 History XL] Metoprolol Succinate (ER) [Toprol 50 mg PO DAILY 04/13/22 05/09/22 History XL] hydrOXYzine HCL [Atarax] 25 mg PO QID 04/13/22 05/09/22 History Benzonatate [Tessalon Perles] 100 mg PO TID PRN #20 cap 04/16/22 05/09/22 Rx Ipratropium-Albuterol Nebulize 3 ml INHALATION RT-QID PRN each 04/16/22 05/09/22 Rx [Duoneb 0.5 mg-3 mg/3 ml Soln] Gabapentin 600 mg PO BID #6 tab 04/17/22 05/09/22 Rx Bismuth Subsalicylate 524 mg PO Q4H PRN 05/09/22 05/09/22 History [Pepto-Bismol] Collagenase [Santyl Ointment] 1 applic TOPICAL HS 05/09/22 05/09/22 History FLUoxetine HCL [PROzac] 40 mg PO DAILY 05/09/22 05/09/22 History Ferrous Sulfate [Iron (65 MG 325 mg PO HS 05/09/22 05/09/22 History Elemental)] Furosemide [Lasix] 60 mg PO DAILY 05/09/22 05/09/22 History HYDROcodone/APAP 5-325MG [[place] 1 tab PO TID PRN 05/09/22 05/09/22 History 5-325] Insulin Glargine,Hum.rec.anlog 35 units SQ DAILY 05/09/22 05/09/22 History [Insulin Glargine Solostar] Insulin Lispro [Insulin Lispro See Protocol SQ ACHS 01/26/23 01/26/23 History Kwikpen U-100] Allergies Allergy/AdvReac Type Severity Reaction Status Date / Time ciprofloxacin [From Cipro] Allergy Swelling Verified 05/09/22 10:43 diphenhydramine Allergy Swelling Verified 05/09/22 10:43 [From Benadryl] Influenza Virus Vaccines Allergy Unknown Verified 05/09/22 10:43 iodine Allergy Swelling Verified 05/09/22 10:43 propoxyphene Allergy Swelling Verified 05/09/22 10:43 [From Darvocet-N] red dye Allergy Swelling Verified 05/09/22 10:43 sulfacetamide Allergy Swelling Verified 05/09/22 10:43 [From Sulfamide] yellow dye Allergy Swelling Verified 05/09/22 10:43 Physical Exam Vitals: Vital Signs Temp Pulse Pulse Resp BP BP Pulse Ox 05/10/22 07:30 88 05/10/22 07:15 92 05/10/22 07:05 97.9 F 93 18 130/72 99 05/10/22 01:59 97.7 F 118 H 16 106/60 99 05/09/22 20:42 108 H 18 05/09/22 20:29 105 H 16 05/09/22 20:00 18 05/09/22 19:27 98.9 F 109 H 16 158/80 98 05/09/22 16:04 100 05/09/22 15:54 100 05/09/22 15:20 98.5 F 100 18 157/77 99 05/09/22 14:10 94 18 159/92 05/09/22 11:44 104 H 22 159/92 98 Intake and Output 05/09/22 05/10/22 05/10/22 22:59 06:59 14:59 Intake Total 600 Balance 600 Intake: Oral 600 Other: Voiding Method Bedside Commode # Voids 2 1 - Constitutional General appearance: cooperative, morbidly obese, no acute distress - EENT Eyes: anicteric sclerae, EOMI ENT: hearing grossly normal - Neck Neck: no lymphadenopathy - Respiratory Respiratory: bilateral: CTA - Cardiovascular Rhythm: regular Heart sounds: normal: S1, S2 Abnormal Heart Sounds: no systolic murmur, no diastolic murmur, no rub, no S3 Gallop, no S4 Gallop, no click, no other leg Peripheral Edema: bilateral: Trace - Gastrointestinal General gastrointestinal: soft, tenderness Localized gastrointestinal: tender: RLQ - Integumentary Integumentary: normal - Neurologic grossly intact Neurologic: CNII-XII intact - Musculoskeletal Musculoskeletal: strength equal bilaterally - Psychiatric Psychiatric: A&O x's 3, appropriate affect, intact judgment & insight Results CBC & Chem 7: 05/11/22 06:14 05/11/22 06:14 Labs: Abnormal Lab Results - Last 24 Hours (Table) 05/09/22 05/09/22 05/09/22 Range/Units 09:40 09:50 16:59 Hgb 11.3 L (11.4-16.0) gm/dL RDW 15.8 H (11.5-15.5) % POC Glucose (mg/dL) 218 H (70-110) mg/dL Urine Appearance Cloudy H (Clear) Urine Protein 1+ H (Negative) Urine Glucose (UA) Trace H (Negative) Urine Blood Large H (Negative) Ur Leukocyte Esterase Large H (Negative) Urine WBC 65 H (0-5) /hpf Urine Bacteria Many H (None) /hpf Hyaline Casts 3 H (0-2) /lpf Urine Mucus Rare H (None) /hpf Urine Yeast (Budding) Few H (None) /hpf 05/09/22 05/10/22 Range/Units 20:05 07:05 Hgb (11.4-16.0) gm/dL RDW (11.5-15.5) % POC Glucose (mg/dL) 184 H 224 H (70-110) mg/dL Urine Appearance (Clear) Urine Protein (Negative) Urine Glucose (UA) (Negative) Urine Blood (Negative) Ur Leukocyte Esterase (Negative) Urine WBC (0-5) /hpf Urine Bacteria (None) /hpf Hyaline Casts (0-2) /lpf Urine Mucus (None) /hpf Urine Yeast (Budding) (None) /hpf CT scan - abdomen: report reviewed Assessment and Plan (1) Endometrial adenocarcinoma Current Visit: Yes Status: Acute Priority: High Code(s): C54.1 - MALIGNANT NEOPLASM OF ENDOMETRIUM SNOMED Code(s): 929876474 (2) Anemia Current Visit: Yes Status: Acute Priority: High Code(s): D64.9 - ANEMIA, UNSPECIFIED SNOMED Code(s): 387709675 (3) DVT (deep venous thrombosis) Current Visit: Yes Status: Acute Priority: High Code(s): I82.409 - ACUTE EMBOLISM AND THOMBOS UNSP DEEP VN UNSP LOWER EXTREMITY SNOMED Code(s): 488330342 Plan: #Endometrioid adenocarcinoma -Well differentiated FIGO score 1 on biopsy in January 2022 -Staging CT scans revealed no evidence of metastatic disease in February 2022 -Clinically, she appears to have localized disease, either stage I or stage II -She was previously evaluated by End User Consultant Oncology. Due to her multiple medical comorbidities, she was deemed not to be a candidate for surgical intervention -Started on megace by [facility]/ONC within the last 3 weeks. Case was discussed with Dr. Colmenares during last admission. -Plan has been for radiation therapy, but has had multiple admissions over the past 3 months precluding her to establish with Radiation Oncology outpatient. Pt was seen by Rad Onc during admissions and could not tolerate external beam radiation therapy simulation. However, brachytherapy, as monotherapy, was thought to be a potential option. Will continue to f/u with Dr. Bradford to discu ss treatment options -CT scan abd/pelvis ordered to r/o developing hematoma Anemia: -Hemoglobin stable, 9.5 today. Will continue to monitor blood counts. Please transfuse for hemoglobin less than 7 or if symptomatic -3 doses parenteral iron ordered -DDAVP ordered for bleeding Hx DVT of the right internal jugular, subclavian, and axillary veins -Noted prior to her previous admission while at SNF -She was started on Eliquis 5 mg twice daily on discharge. However due to acute vaginal bleeding, anticoagulant held at this time -DDAVP ordered for bleeding -Repeat RUE doppler ordered. Pt does report improvement in RUE edema since last admission Attests: I have seen and examined pt, performed H&P, developed impression and plan of care. Discussed with dictator. Agree with documentation, dictated as a scribe.
[2022-05-11] MEDS ORDERED: FUROSEMIDE 10 MG/ML 2 ML VIAL IV ONE (11:00)
[2022-05-11 11:37] LABS: Glucose,Whole Blood 281 mg/dL (70-110)
[2022-05-11 12:46] LABS: HCT 30.5 % (34.0-46.0); MCH 27.9 pg (25.0-35.0); Mean Platelet Volume 7.7; Platelet Count 253 k/uL (150-450); RDW 15.7 % (11.5-15.5); WBC 6.1 k/uL (3.8-10.6)
[2022-05-11 13:25] VITALS: BMI 50.0
[2022-05-11 13:38] LABS: HGB 9.8 gm/dL (11.4-16.0)
--- NOTE | 2022-05-11 14:51 | P.PN ---
Subjective Progress Note Date: 05/11/22 Principal diagnosis: endometrial cancer - CT abdomen/pelvis was negative for intra-abdominal hematoma - duplex of the right upper extremity negative for DVT - noted having passage of clots yesterday evening, but resolved at this morning - she denies any vaginal bleeding currently. She notes being heavily interested in obtaining surgery if possible Objective - Vital Signs Vital signs: Vital Signs Temp 98.4 F 05/11/22 13:46 Pulse 88 05/11/22 13:55 Resp 18 05/11/22 12:39 BP 133/73 05/11/22 13:55 Pulse Ox 100 05/11/22 13:55 FiO2 Intake & Output 05/10/22 05/11/22 05/11/22 18:59 06:59 18:59 Intake Total 1000 0 Balance 1000 0 Weight 140.614 kg Intake: Oral 1000 Blood Product 0 Rc As-1 Unit 0 [id number] Other: Voiding Method Bedside Commode Bedside Commode # Voids 2 4 # Bowel Movements 1 - Constitutional General appearance: Present: no acute distress, obese - EENT Eyes: Present: EOMI - Respiratory Respiratory: bilateral: CTA - Cardiovascular Rhythm: regular - Gastrointestinal General gastrointestinal: Present: distended, normal bowel sounds, soft - Integumentary Integumentary: Present: pale - Neurologic Neurologic: Present: CNII-XII intact - Labs CBC & Chem 7: 05/11/22 12:36 05/11/22 06:14 Labs: Abnormal Lab Results - Last 24 Hours (Table) 05/09/22 05/10/22 05/10/22 Range/Units 09:50 06:22 16:50 RBC (4.10-5.20) X 10*6/uL Hgb (12.0-15.0) g/dL Hct (37.2-46.3) % MCHC (32.0-37.0) g/dL RDW (11.5-14.5) % Eosinophils # (0.04-0.35) X 10*3/uL Carbon Dioxide (20.0-27.5) mmol/L BUN (9.0-27.0) mg/dL Creatinine (0.6-1.5) mg/dL Est GFR (CKD-EPI)AfAm (60.0-200.0) Est GFR (CKD-EPI)NonAf (60.0-200.0) Glucose (70-110) mg/dL POC Glucose (mg/dL) 187 H (70-110) mg/dL Hemoglobin A1c 9.2 H (0.0-6.0) % ALT (8-44) U/L Total Protein (6.2-8.2) g/dL Crossmatch See Detail 05/10/22 05/11/22 05/11/22 Range/Units 20:37 06:14 06:14 RBC 3.07 L (4.10-5.20) X 10*6/uL Hgb 8.3 L (12.0-15.0) g/dL Hct 28.1 L (37.2-46.3) % MCHC 29.5 L (32.0-37.0) g/dL RDW 15.9 H (11.5-14.5) % Eosinophils # 0.36 H (0.04-0.35) X 10*3/uL Carbon Dioxide 18.0 L (20.0-27.5) mmol/L BUN 36.2 H (9.0-27.0) mg/dL Creatinine 2.2 H (0.6-1.5) mg/dL Est GFR (CKD-EPI)AfAm 28.3 L (60.0-200.0) Est GFR (CKD-EPI)NonAf 24.4 L (60.0-200.0) Glucose 198 H (70-110) mg/dL POC Glucose (mg/dL) 199 H (70-110) mg/dL Hemoglobin A1c (0.0-6.0) % ALT 45 H (8-44) U/L Total Protein 5.9 L (6.2-8.2) g/dL Crossmatch 05/11/22 05/11/22 05/11/22 Range/Units 07:36 11:26 12:36 RBC 3.50 L (4.10-5.20) X 10*6/uL Hgb 9.8 L D (12.0-15.0) g/dL Hct 30.5 L (37.2-46.3) % MCHC (32.0-37.0) g/dL RDW 15.7 H (11.5-14.5) % Eosinophils # (0.04-0.35) X 10*3/uL Carbon Dioxide (20.0-27.5) mmol/L BUN (9.0-27.0) mg/dL Creatinine (0.6-1.5) mg/dL Est GFR (CKD-EPI)AfAm (60.0-200.0) Est GFR (CKD-EPI)NonAf (60.0-200.0) Glucose (70-110) mg/dL POC Glucose (mg/dL) 215 H 281 H (70-110) mg/dL Hemoglobin A1c (0.0-6.0) % ALT (8-44) U/L Total Protein (6.2-8.2) g/dL Crossmatch - Imaging and Cardiology CT scan - abdomen: report reviewed Venous US: report reviewed Assessment and Plan (1) DVT (deep venous thrombosis) Current Visit: Yes Status: Chronic Priority: High Code(s): I82.409 - ACUTE EMBOLISM AND THOMBOS UNSP DEEP VN UNSP LOWER EXTREMITY SNOMED Code(s): 477846620 (2) Endometrial adenocarcinoma Current Visit: Yes Status: Chronic Priority: High Code(s): C54.1 - MALIGNANT NEOPLASM OF ENDOMETRIUM SNOMED Code(s): 445288666 (3) Vaginal bleeding Current Visit: Yes Status: Acute Code(s): N93.9 - ABNORMAL UTERINE AND VAGINAL BLEEDING, UNSPECIFIED SNOMED Code(s): 761589331 Plan: #Endometrioid adenocarcinoma -Well differentiated FIGO score 1 on biopsy in January 2022 -Staging CT scans revealed no evidence of metastatic disease in February 2022 -Clinically, she appears to have localized disease, either stage I or stage II -She was previously evaluated by [facility]. Due to her multiple medical abe rbidities, she was deemed not to be a candidate for surgical intervention -Started on megace by [facility]/ONC within the last 3 weeks. Case was discussed with Dr. Colmenares during last admission and she was deemed not to be a surgical candidate due to her multiple medical comorbidities and morbid obesity -Plan has been for radiation therapy, but has had multiple admissions over the past 3 months precluding her to establish with Radiation Oncology outpatient. Pt was seen by Rad Onc during admissions and could not tolerate external beam radiation therapy simulation. However, brachytherapy, as monotherapy, was thought to be a potential option. Will continue to f/u with Dr. Bradford to discuss treatment options -She remains heavily interested in pursuing second opinion for surgery. She will pursue second opinion with gynecologic oncology at either [facility] or Anemia: -CT abdomen/pelvis negative for intra-abdominal hematoma -Received desmopressin yesterday for bleeding, which appears to have improved -Hemoglobin 8.3 today. transfused 1 unit packed red blood cells with by primary team -Her baseline hemoglobin over the past 2 months appears to be between 7-9 -Will continue to monitor blood counts. Please transfuse for hemoglobin less than 7 or if symptomatic -3 doses parenteral iron ordered with first dose administered today Hx DVT of the right internal jugular, subclavian, and axillary veins -Noted prior to her previous admission while at [facility] -She was started on Eliquis 5 mg twice daily on discharge. However due to acute vaginal bleeding, anticoagulant held at this time -Right upper extremity Doppler was negative for DVT -Continue to hold anticoagulation at this time Time with Patient: Greater than 30
[2022-05-11 17:23] LABS: Glucose,Whole Blood 130 mg/dL (70-110)
[2022-05-11 19:28] LABS: HCT 32.3 % (34.0-46.0); HGB 10.2 gm/dL (11.4-16.0); MCH 27.4 pg (25.0-35.0); MCHC 31.6 g/dL (31.0-37.0); MCV 86.5 fL (80.0-100.0); Mean Platelet Volume 7.8; Platelet Count 242 k/uL (150-450); RBC 3.73 m/uL (3.80-5.40); RDW 15.9 % (11.5-15.5); WBC 7.3 k/uL (3.8-10.6)
[2022-05-11] MEDS: IPRATROPIUM-ALBUTEROL 3 ML NEB INHALATION PRN (19:57)
[2022-05-11 20:05] LABS: Glucose,Whole Blood 215 mg/dL (70-110)
[2022-05-11] MEDS: PRIMIDONE 50 MG TAB PO SCH (20:18)
[2022-05-11] MEDS: MONTELUKAST 10 MG TAB PO SCH (20:19)
[2022-05-12 01:51] LABS: HCT 31.9 % (34.0-46.0); MCH 27.3 pg (25.0-35.0); MCHC 31.3 g/dL (31.0-37.0); MCV 87.2 fL (80.0-100.0); Mean Platelet Volume 7.6; Platelet Count 228 k/uL (150-450); RBC 3.66 m/uL (3.80-5.40); WBC 7.4 k/uL (3.8-10.6)
[2022-05-12] MEDS: IPRATROPIUM-ALBUTEROL 3 ML NEB INHALATION PRN ×5 (02:40→19:26)
[2022-05-12] MEDS: HYDROcodone/APAP 5-325MG 1 EACH TAB PO PRN ×2 (05:17→17:41)
[2022-05-12 07:16] LABS: Glucose,Whole Blood 187 mg/dL (70-110)
[2022-05-12] MEDS: SYMBICORT 160-4.5 MCG INHALER INHALATION SCH ×2 (07:36→19:26)
[2022-05-12] MEDS: INSULIN ASPART (NovoLOG) 100 UNIT/ML VIAL SQ SCH ×4 (08:05→21:10)
[2022-05-12] MEDS: FLUoxetine HCL 20 MG CAP PO SCH (08:06)
[2022-05-12] MEDS: GABAPENTIN 300 MG CAP PO SCH ×2 (08:06→21:07)
[2022-05-12] MEDS: INSULIN DETEMIR (LEVEMIR) 100 UNIT/ML SYR SQ SCH (08:06)
[2022-05-12] MEDS: METOPROLOL SUCCINATE (ER) 25 MG TAB.ER.24H PO SCH (08:06)
[2022-05-12] MEDS: METOPROLOL SUCCINATE (ER) 50 MG TAB.ER.24H PO SCH (08:06)
[2022-05-12] MEDS: FUROSEMIDE 20 MG TAB PO SCH (08:06)
[2022-05-12] MEDS: MEGESTROL 40 MG TAB PO SCH ×2 (08:07→21:10)
[2022-05-12] MEDS: hydrOXYzine HCL 25 MG TAB PO SCH ×4 (08:07→21:08)
[2022-05-12] MEDS: HYDROXYCHLOROQUINE SULFATE 200 MG TAB PO SCH ×2 (08:07→21:10)
[2022-05-12] MEDS: FENOFIBRATE 160 MG TAB PO SCH (09:18)
[2022-05-12] MEDS: SODIUM FERRIC GLUCONAT-SUCROSE 125 MG in SODIUM CHLORIDE 0.9% 100 ML IVPB SCH (09:34)
[2022-05-12 11:13] LABS: Glucose,Whole Blood 217 mg/dL (70-110)
[2022-05-12 13:39] LABS: Basophils # (A) 0.06 X 10*3/uL (0.00-0.10); Basophils % (A) 0.8 %; Eosinophils # (A) 0.57 X 10*3/uL (0.04-0.35); HCT 30.8 % (37.2-46.3); HGB 9.3 g/dL (12.0-15.0); Immature Grans, Automated 0.3 %; Lymphocytes # (A) 2.03 X 10*3/uL (0.90-5.00); Lymphocytes % (A) 28.4 %; MCH 26.8 pg (27.0-32.0); MCHC 30.2 g/dL (32.0-37.0); MCV 88.8 fL (80.0-97.0); Mean Platelet Volume 10.7 fL (9.5-12.2); NRBC Per 100 WBC 0 /100 WBCS (0.0-0.0); Neutrophils # (A) 3.96 X 10*3/uL (1.80-7.70); Neutrophils % (A) 55.5 %; Platelet Count 251 X 10*3/uL (140-440); RBC 3.47 X 10*6/uL (4.10-5.20); RDW 16.5 % (11.5-14.5); WBC 7.14 X 10*3/uL (4.50-10.00)
[2022-05-12 13:46] LABS: African American GFR (CKD) 31.4 (60.0-200.0); Anion Gap 10.5 mmol/L (10.00-18.00); BUN/Creat Ratio 19.85 Ratio (12.00-20.00); Blood Urea Nitrogen 40.1 mg/dL (9.0-27.0); Calcium 9.1 mg/dL (8.7-10.3); Carbon Dioxide 17.7 mmol/L (20.0-27.5); Non-African American GFR(CKD) 27.1 (60.0-200.0); Potassium 5.2 mmol/L (3.5-5.5)
[2022-05-12 16:16] LABS: HCT 34.5 % (37.2-46.3); HGB 10.4 g/dL (12.0-15.0); MCH 27.2 pg (27.0-32.0); MCHC 30.1 g/dL (32.0-37.0); MCV 90.1 fL (80.0-97.0); Mean Platelet Volume 11.2 fL (9.5-12.2); NRBC Per 100 WBC 0 /100 WBCS (0.0-0.0); Platelet Count 266 X 10*3/uL (140-440); RBC 3.83 X 10*6/uL (4.10-5.20); RDW 16.3 % (11.5-14.5); WBC 7.49 X 10*3/uL (4.50-10.00)
[2022-05-12 17:17] LABS: Glucose,Whole Blood 210 mg/dL (70-110)
[2022-05-12 20:50] LABS: Glucose,Whole Blood 224 mg/dL (70-110)
[2022-05-12] MEDS: MONTELUKAST 10 MG TAB PO SCH (21:07)
[2022-05-12] MEDS: PRIMIDONE 50 MG TAB PO SCH (21:09)
[2022-05-13 01:05] LABS: HCT 31.1 % (34.0-46.0); HGB 10.3 gm/dL (11.4-16.0); MCH 27.9 pg (25.0-35.0); MCHC 33.2 g/dL (31.0-37.0); Mean Platelet Volume 8.2; Platelet Count 254 k/uL (150-450); RBC 3.71 m/uL (3.80-5.40); RDW 15.8 % (11.5-15.5); WBC 7.4 k/uL (3.8-10.6)
[2022-05-13] MEDS: HYDROcodone/APAP 5-325MG 1 EACH TAB PO PRN ×2 (05:52→12:10)
[2022-05-13 07:04] LABS: Glucose,Whole Blood 149 mg/dL (70-110)
--- NOTE | 2022-05-13 07:37 | PN ---
PROGRESS NOTE DATE OF SERVICE: 05/06/2022 HISTORY OF PRESENT ILLNESS: This is a 56-year-old woman who was admitted with vaginal bleeding with history of adenocarcinoma and is closely monitored. The patient had some bleeding last night with some clots, but hemodynamically stable at this time. The hemoglobin today is 8.3. I would recommend one unit transfusion and close monitor. Otherwise, the patient has a complicated recent past medical history as detailed before. PAST MEDICAL HISTORY: Reviewed. REVIEW OF SYSTEMS: 14-point review is negative except mentioned earlier MEDICATIONS: Current medications reviewed include DuoNeb. The rest of the medication doses are reviewed. PHYSICAL EXAMINATION: VITAL SIGNS: Pulse is 90, blood pressure 119/58, respirations 18. HEENT: Conjunctivae are pale. Oral mucosa moist. CARDIOVASCULAR: S1 and S2. RESPIRATORY: Clear to auscultation. ABDOMEN: Soft, obese. NERVOUS SYSTEM: Nonfocal. LABORATORY DATA: Reviewed. ASSESSMENT: 1. Acute vaginal bleeding from endometrial carcinoma with acute blood loss anemia. 2. History of recent left hip fracture and surgery. 3. History of deep venous thrombosis. 4. Diabetes mellitus, type 2. 5. History of asthma. 6. History of rheumatoid arthritis. 7. History of endometrial carcinoma, no treatment yet. 8. Morbid obesity. 9. Multiple medical issues. RECOMMENDATIONS: Recommend to continue current medications and continue symptomatic treatment. Otherwise, recommend one unit transfusion with Lasix 20 after that. Monitor blood sugars closely and a CT scan reviewed which was negative and monitor hemoglobin closely. Closely follow up with multiple consultants. Prognosis guarded. Further recommendations to follow. The patient is off anticoagulation currently. MMODL / IJN: [id number] /
[2022-05-13 07:43] VITALS: RESP 18
[2022-05-13] MEDS: SYMBICORT 160-4.5 MCG INHALER INHALATION SCH (07:50)
[2022-05-13] MEDS: IPRATROPIUM-ALBUTEROL 3 ML NEB INHALATION PRN ×2 (07:50→11:23)
[2022-05-13] MEDS: INSULIN ASPART (NovoLOG) 100 UNIT/ML VIAL SQ SCH ×2 (08:02→12:10)
--- NOTE | 2022-05-13 08:40 | PN ---
PROGRESS NOTE DATE OF SERVICE: 05/12/2022 HISTORY OF PRESENT ILLNESS: This 56-year-old woman is admitted with vaginal bleeding, has chronic blood loss anemia. Also, the patient apparently was known to having a surgery at [facility] because of the high risk, but the patient's 2D echo showed ejection fraction about 50% to 60%. The patient also had apparently hip surgery, according to the patient, and they would like to have a second opinion at this time. No chest pain or palpitation. PAST MEDICAL HISTORY: Reviewed. REVIEW OF SYSTEMS: 14-point review is negative as mentioned earlier. MEDICATIONS: Reviewed, include DuoNeb. Dose and rest of medication noted. PHYSICAL EXAMINATION: VITAL SIGNS: Pulse is 90, blood pressure 124/72, respirations 18. HEENT: Conjunctivae pale. Oral mucosa moist. CARDIOVASCULAR: S1, S2. ABDOMEN: Soft, obese. LEGS: No edema. NERVOUS SYSTEM: Nonfocal. LABORATORY DATA: Reviewed. ASSESSMENT: 1. Endometrial carcinoma with vaginal bleeding and acute blood loss anemia, status post blood transfusion. 2. History of recent left hip fracture and surgery. 3. History of deep venous thrombosis. 4. Diabetes type 2. 5. History of asthma. 6. History of rheumatoid arthritis. 7. History of endometrial carcinoma, no treatment yet. 8. Morbid obesity. RECOMMENDATIONS: Recommend to continue current management and treatment, otherwise explore the possibility of transfer to [facility] with [facility]TE[facility]INEER-Onc evaluation and surgery. Continue the current medications. The patient is off anticoagulation. Monitor H and H. If the patient is having bleeding or anemia, transfusion p.r.n. Prognosis extremely guarded because of multiple complex medical conditions. See orders for details. MMODL / IJN: [id number] /
[2022-05-13] MEDS: METOPROLOL SUCCINATE (ER) 25 MG TAB.ER.24H PO SCH (08:59)
[2022-05-13] MEDS: METOPROLOL SUCCINATE (ER) 50 MG TAB.ER.24H PO SCH (08:59)
[2022-05-13] MEDS: GABAPENTIN 300 MG CAP PO SCH (08:59)
[2022-05-13] MEDS: FUROSEMIDE 20 MG TAB PO SCH (08:59)
[2022-05-13] MEDS: INSULIN DETEMIR (LEVEMIR) 100 UNIT/ML SYR SQ SCH (08:59)
[2022-05-13] MEDS: FENOFIBRATE 160 MG TAB PO SCH (08:59)
[2022-05-13] MEDS: FLUoxetine HCL 20 MG CAP PO SCH (08:59)
[2022-05-13] MEDS: SODIUM FERRIC GLUCONAT-SUCROSE 125 MG in SODIUM CHLORIDE 0.9% 100 ML IVPB SCH (09:00)
[2022-05-13] MEDS: hydrOXYzine HCL 25 MG TAB PO SCH ×2 (09:00→16:22)
[2022-05-13] MEDS: MEGESTROL 40 MG TAB PO SCH (09:02)
[2022-05-13] MEDS: HYDROXYCHLOROQUINE SULFATE 200 MG TAB PO SCH (09:02)
[2022-05-13 10:40] LABS: Basophils # (A) 0.06 X 10*3/uL (0.00-0.10); Basophils % (A) 0.8 %; Eosinophils # (A) 0.56 X 10*3/uL (0.04-0.35); Eosinophils % (A) 7.5 %; HGB 10.8 g/dL (12.0-15.0); Immature Grans, Automated 0.3 %; Lymphocytes # (A) 2.05 X 10*3/uL (0.90-5.00); Lymphocytes % (A) 27.6 %; MCH 27.3 pg (27.0-32.0); MCHC 30.9 g/dL (32.0-37.0); MCV 88.4 fL (80.0-97.0); Mean Platelet Volume 10.6 fL (9.5-12.2); Monocytes # (A) 0.56 X 10*3/uL (0.20-1.00); Monocytes % (A) 7.5 %; NRBC Per 100 WBC 0 /100 WBCS (0.0-0.0); Neutrophils # (A) 4.18 X 10*3/uL (1.80-7.70); Neutrophils % (A) 56.3 %; Platelet Count 285 X 10*3/uL (140-440); RBC 3.96 X 10*6/uL (4.10-5.20); RDW 16.2 % (11.5-14.5); WBC 7.43 X 10*3/uL (4.50-10.00)
[2022-05-13 10:50] LABS: African American GFR (CKD) 31.8 (60.0-200.0); Anion Gap 11.5 mmol/L (10.00-18.00); BUN/Creat Ratio 21.4 Ratio (12.00-20.00); Blood Urea Nitrogen 42.8 mg/dL (9.0-27.0); Calcium 9.5 mg/dL (8.7-10.3); Carbon Dioxide 18.5 mmol/L (20.0-27.5); Non-African American GFR(CKD) 27.4 (60.0-200.0); Potassium 5.7 mmol/L (3.5-5.5)
[2022-05-13 11:20] LABS: Glucose,Whole Blood 202 mg/dL (70-110)
[2022-05-13 12:57] VITALS: BP 138/76; PULSE 85; TEMP 98.3
[2022-05-13] MEDS ORDERED: SODIUM ZIRCONIUM CYCLOSILICATE 10 GM PACKET PO ONE (16:00)
[2022-05-13 18:41] LABS: HGB 10.8 g/dL (12.0-15.0); MCH 27.3 pg (27.0-32.0); MCHC 30.9 g/dL (32.0-37.0); MCV 88.4 fL (80.0-97.0); Mean Platelet Volume 11.1 fL (9.5-12.2); NRBC Per 100 WBC 0 /100 WBCS (0.0-0.0); Platelet Count 288 X 10*3/uL (140-440); RBC 3.96 X 10*6/uL (4.10-5.20); WBC 6.82 X 10*3/uL (4.50-10.00)
[2022-05-13] MEDS ORDERED: GABAPENTIN 100 MG CAP PO SCH (21:00)
--- NOTE | 2022-05-16 06:36 | P.DS ---
Providers Date of admission: 05/12/22 12:44 Expected date of discharge: 05/13/22 Attending physician: Oren Cunningham MD Consults: 05/09/22 12:50 Consult Physician Urgent Consulting Provider: Mary Bustamante Consult Reason/Comments: endometrial cancer, vaginal bleeding Do you want consulting provider notified?: Yes 05/09/22 12:52 Consult Physician Urgent Consulting Provider: Saúl Bradford Consult Reason/Comments: endometrial cancer, vaginal bleeding Do you want consulting provider notified?: Yes 05/09/22 14:53 Consult Physician Routine Consulting Provider: Pablo Martin Consult Reason/Comments: malignancy Do you want consulting provider notified?: Yes Primary care physician: Deanne Chahal Hospital Course: Final diagnosis Endometrial carcinoma with vaginal bleeding and acute blood loss anemia, status post blood transfusion History of recent left hip fracture with surgery History of DVT Diabetes mellitus type 2 History of asthma, not an exacerbation History of rheumatoid arthritis History of endometrial carcinoma with no treatment as of yet Morbid obesity with a BMI of 50 Discharge disposition Patient is being discharged in a stable condition with guarded prognosis to home with home care . Patient will follow-up with Dr. Alicea in the outpatient setting upon discharge. Patient is to follow-up at a tertiary treatment center for her second opinion regarding possible surgical intervention of her endometrial cancer. Anticoagulation on hold at this time due to continued bleeding. Total time taken is greater than 35 minutes. Hospital course This is a 56-year-old female who was recently admitted with acute blood loss anemia while on anticoagulation. Patient does have extensive history of endometrial carcinoma although has yet to seek any treatment. Patient has been seen and evaluated by oncology and radiation oncology multiple times deemed not a surgical candidate given her multiple medical comorbidities and patient was also unable to tolerate mapping for possible radiation palliative treatment due to body habitus and inability to lay flat for any period of time. Patient requesting second opinion for possible surgery and has been instructed by multiple consultations that she would need tertiary treatment with gynecology/oncology available. Patient reports bleeding has slowed down and hemoglobin is stable. Recommending holding Eliquis for now given the continued bleeding and strongly encourage the patient to follow-up outpatient. Resources provided. Currently no reports of chest pain, shortness of breath, or palpitations. Patient is afebrile. No reports of nausea or vomiting and patient is tolerating diet. Patient will be discharged home today. Generally guarded prognosis and high risk for readmission due to patient's multiple comorbidities and noncompliance. Physical exam: Gen: This is a 56-year-old who is awake, alert, oriented 3, well-developed, well-nourished, morbidly obese HEENT: Head is atraumatic, normocephalic. Pupils equal, round. Sclerae is anicteric. NECK: Supple. No JVD. No lymphadenopathy. No thyromegaly. LUNGS: Clear to auscultation. No wheezes with some coarse rhonchi. No intercostal retractions. HEART: Regular rate and rhythm. No murmur. ABDOMEN: Soft. Obese Bowel sounds are present. No masses. No tenderness. EXTREMITIES: No pedal edema. No calf tenderness. NEUROLOGICAL: Patient is awake, alert and oriented x3. Cranial nerves 2 through 12 are grossly intact. Please refer to medication reconciliation sheet for a list of medications. The impression and plan of care has been dictated by Fabienne Fortune, Nurse Practitioner as directed. Dr. Lior MD I have performed a history and examination and MDM of this patient, discussed the same with the dictator, and agree with the dictator's assessment and plan as written ,documented as a scribe. Based on total visit time, I have performed more than 50% of the visit. Patient Condition at Discharge: Stable Plan - Discharge Summary New Discharge Prescriptions: New Gabapentin [Neurontin] 200 mg PO BID #12 cap Continue Montelukast [Singulair] 10 mg PO HS gemfibroziL [Lopid] 600 mg PO BID Albuterol Inhaler [Ventolin Hfa Inhaler] 2 puff INHALATION RT-Q4H PRN PRN Reason: Shortness Of Breath Primidone [Mysoline] 50 mg PO HS tab Sennosides-Docusate Sodium [Senokot-S] 2 tab PO DAILY PRN PRN Reason: Constipation Megestrol [Megace] 40 mg PO BID #60 tablet hydrOXYzine HCL [Atarax] 25 mg PO QID Budesonide/Formoterol Fumarate [Symbicort 160-4.5 Mcg Inhaler] 1 puff INHALATION RT-BID Ipratropium-Albuterol Nebulize [Duoneb 0.5 mg-3 mg/3 ml Soln] 3 ml INHALATION RT-QID PRN each PRN Reason: Shortness Of Breath Or Wheezing Benzonatate [Tessalon Perles] 100 mg PO TID PRN #20 cap PRN Reason: Cough Collagenase [Santyl Ointment] 1 applic TOPICAL HS Furosemide [Lasix] 60 mg PO DAILY Insulin Glargine,Hum.rec.anlog [Insulin Glargine Solostar] 35 units SQ DAILY allopurinoL [Zyloprim] 100 mg PO BID Ondansetron [Zofran] 4 mg PO Q12HR PRN PRN Reason: Nausea Atorvastatin [Lipitor] 10 mg PO HS Acetaminophen Tab [Tylenol] 650 mg PO Q6HR PRN tab PRN Reason: Fever And/ Or Pain Metoprolol Succinate (ER) [Toprol XL] 50 mg PO DAILY Metoprolol Succinate (ER) [Toprol XL] 25 mg PO DAILY Hydroxychloroquine Sulfate [Plaquenil] 200 mg PO BID Bismuth Subsalicylate [Pepto-Bismol] 524 mg PO Q4H PRN PRN Reason: DIARRHEA/UPSET STOMACH Ferrous Sulfate [Iron (65 MG Elemental)] 325 mg PO HS FLUoxetine HCL [PROzac] 40 mg PO DAILY HYDROcodone/APAP 5-325MG [Brighton 5-325] 1 tab PO TID PRN PRN Reason: Pain Insulin Lispro [Insulin Lispro Kwikpen U-100] See Protocol SQ ACHS Discontinued Aspirin 81 mg PO BID tab Apixaban [Eliquis] 5 mg PO BID 30 Days #60 tab Gabapentin 600 mg PO BID #6 tab Discharge Medication List Montelukast [Singulair] 10 mg PO HS 01/09/17 [History] gemfibroziL [Lopid] 600 mg PO BID 01/09/17 [History] Albuterol Inhaler [Ventolin Hfa Inhaler] 2 puff INHALATION RT-Q4H PRN 01/14/17 [History] allopurinoL [Zyloprim] 100 mg PO BID 01/21/22 [History] Atorvastatin [Lipitor] 10 mg PO HS 02/15/22 [History] Ondansetron [Zofran] 4 mg PO Q12HR PRN 02/15/22 [History] Acetaminophen Tab [Tylenol] 650 mg PO Q6HR PRN tab 03/28/22 [Rx] Primidone [Mysoline] 50 mg PO HS tab 03/28/22 [Rx] Sennosides-Docusate Sodium [Senokot-S] 2 tab PO DAILY PRN 04/02/22 [History] Megestrol [Megace] 40 mg PO BID #60 tablet 04/10/22 [Rx] Budesonide/Formoterol Fumarate [Symbicort 160-4.5 Mcg Inhaler] 1 puff INHALATION RT-BID 04/13/22 [History] Hydroxychloroquine Sulfate [Plaquenil] 200 mg PO BID 04/13/22 [History] Metoprolol Succinate (ER) [Toprol XL] 25 mg PO DAILY 04/13/22 [History] Metoprolol Succinate (ER) [Toprol XL] 50 mg PO DAILY 04/13/22 [History] hydrOXYzine HCL [Atarax] 25 mg PO QID 04/13/22 [History] Benzonatate [Tessalon Perles] 100 mg PO TID PRN #20 cap 04/16/22 [Rx] Ipratropium-Albuterol Nebulize [Duoneb 0.5 mg-3 mg/3 ml Soln] 3 ml INHALATION RT-QID PRN each 04/16/22 [Rx] Bismuth Subsalicylate [Pepto-Bismol] 524 mg PO Q4H PRN 05/09/22 [History] Collagenase [Santyl Ointment] 1 applic TOPICAL HS 05/09/22 [History] FLUoxetine HCL [PROzac] 40 mg PO DAILY 05/09/22 [History] Ferrous Sulfate [Iron (65 MG Elemental)] 325 mg PO HS 05/09/22 [History] Furosemide [Lasix] 60 mg PO DAILY 05/09/22 [History] HYDROcodone/APAP 5-325MG [Brighton 5-325] 1 tab PO TID PRN 05/09/22 [History] Insulin Glargine,Hum.rec.anlog [Insulin Glargine Solostar] 35 units SQ DAILY 05/09/22 [History] Insulin Lispro [Insulin Lispro Kwikpen U-100] See Protocol SQ ACHS 05/09/22 [History] Gabapentin [Neurontin] 200 mg PO BID #12 cap 05/13/22 [Rx] Follow up Appointment(s)/Referral(s): Fela Alicea MD [Primary Care Provider] - 1-2 days Ambulatory/Diagnostic Orders: Complete Blood Count w/diff [LAB.AMB] Time Frame: 3 Days, Location: None Selected Activity/Diet/Wound Care/Special Instructions: Activity Limited until follow-up Recommend follow-up with primary care provider this week Follow-up gynecology/oncology outpatient for second opinion Continue holding eliquis for now Continue potassium renal diet Continue taking medications as prescribed Discharge Disposition: HOME WITH HOME HEALTH SERVICES
== END 2022-05-13 17:30 | disposition home health service (06) | DRG 755 ==
LOC: EC 08:59 → 5NMEDONC 12:50 → OBSVTOIN 05-12 12:44
PROVIDERS: ADMIT Internal Medicine; ATTEND Internal Medicine
DX: C54.1 Malignant neoplasm of endometrium (principal); D62 Acute posthemorrhagic anemia; E66.2 Morbid (severe) obesity with alveolar hypoventilation; Z68.43 Body mass index [BMI] 50.0-59.9, adult; E03.9 Hypothyroidism, unspecified; E78.00 Pure hypercholesterolemia, unspecified; E11.42 Type 2 diabetes mellitus with diabetic polyneuropathy; I12.9 Hypertensive chronic kidney disease with stage 1 through stage 4 chronic kidney disease, or unspecified chronic kidney disease; M32.9 Systemic lupus erythematosus, unspecified; N93.9 Abnormal uterine and vaginal bleeding, unspecified; I25.10 Atherosclerotic heart disease of native coronary artery without angina pectoris; Z28.310 Unvaccinated for COVID-19; Z28.21 Immunization not carried out because of patient refusal; E05.00 Thyrotoxicosis with diffuse goiter without thyrotoxic crisis or storm; M10.9 Gout, unspecified; E11.22 Type 2 diabetes mellitus with diabetic chronic kidney disease; Z87.442 Personal history of urinary calculi; Z85.6 Personal history of leukemia; Z86.718 Personal history of other venous thrombosis and embolism; Z83.3 Family history of diabetes mellitus; Z82.49 Family history of ischemic heart disease and other diseases of the circulatory system; Z79.899 Other long term (current) drug therapy; Z79.82 Long term (current) use of aspirin; Z79.51 Long term (current) use of inhaled steroids; Z79.01 Long term (current) use of anticoagulants; Z88.1 Allergy status to other antibiotic agents; Z88.7 Allergy status to serum and vaccine
CPT/HCPCS: 36415; 74176; 80048; 80053; 81001; 82272; 83036; 83605; 83690; 83735; 84484; 85025; 85027; 85610; 85730; 86850; 86900; 86901; 86920; 94640; 94760; 96374; 96375; 99285

== ENCOUNTER → 2022-09-10 | Outpatient (CLI) | payer OTHER ==
[2022-09-10 16:03] LABS: HDL Cholesterol 24.1 mg/dL (40.00-60.00)
[2022-09-10 16:16] LABS: Chol/HDL Ratio 9.21 Ratio; LDL Cholesterol,Direct Reflex 88.3 mg/dL (0.00-129.00)
[2022-09-10 16:20] LABS: African American GFR (CKD) 35.4 (60.0-200.0); Albumin 3.9 g/dL (3.8-4.9); Albumin/Globulin Ratio 1.37 (1.60-3.17); Anion Gap 13.2 mmol/L (10.00-18.00); BUN/Creat Ratio 26.65 Ratio (12.00-20.00); Blood Urea Nitrogen 48.5 mg/dL (9.0-27.0); Calcium 9.3 mg/dL (8.7-10.3); Carbon Dioxide 14.4 mmol/L (20.0-27.5); Globulin 2.9 g/dL (1.6-3.3); Non-African American GFR(CKD) 30.5 (60.0-200.0); Potassium 5.3 mmol/L (3.5-5.5); Total Bilirubin 0.2 mg/dL (0.30-1.20); Total Protein 6.8 g/dL (6.2-8.2)
== END | disposition home or self-care (01) ==
LOC: LABWHC1 10:03
PROVIDERS: ATTEND Internal Medicine Endocrinology, Diabetes & Metabolism
DX: E11.65 Type 2 diabetes mellitus with hyperglycemia (principal)
CPT/HCPCS: 36415; 80053; 80061; 82043; 82570; 83036; 83721; 84443

== ENCOUNTER 2022-11-06 10:41 | Emergency (ER) | payer MEDICARE ==
[2022-11-06] MEDS: SODIUM CHLORIDE 0.9% 1,000 ML IV STA ×2 (13:28→13:30)
--- NOTE | 2022-11-06 13:49 | US ---
EXAMINATION TYPE: US pelvic complete DATE OF EXAM: 11/06/2022 COMPARISON: CT 05/10/2022 CLINICAL INDICATION: Female, 57 years old with history of vag bleed; Vaginal bleeding that started th is morning. Patient states she has IUD in placed 09/13/22. Patient has endometrial cancer, not doing treatment, on old per patient. . Hx 2 miscarriages. TECHNIQUE: Transabdominal (TA). Transabdominal sonographic images of the pelvis were acquired. Pat ient refused transvaginal exam. Date of LMP: 10 years ago. EXAM MEASUREMENTS: Uterus: 14.0 x 9.9 x 7.0 cm Endometrial Stripe: Unable to visualize. Right Ovary: Not seen. Left Ovary: Not seen. Exam is very limited due to patient's pain level and body habitus. Patient is 280 lbs. 1. Uterus: Enlarged, although measurement is limited. 2. Endometrium: Unable to visualize. No IUD definitively visualized. 3. Right Ovary: Not seen. 4. Left Ovary: Not seen. 5. Bilateral Adnexa: Limited 6. Posterior cul-de-sac: Limited Significantly limited examination. Enlarged bulky uterus without visualization of endometrial stripe. Both ovaries are not visualized. N o free fluid identified. IMPRESSION: Significantly limited examination with bulky enlarged uterus. Nonvisualization of the end ometrium and both ovaries due to patient body habitus, bowel gas, and pain tolerance.
--- NOTE | 2022-11-06 14:13 | ED ---
Female Urogenital HPI - General Chief complaint: Vaginal Bleeding Stated complaint: vaginal bleeding Time Seen by Provider: 11/06/22 11:15 Source: patient Mode of arrival: wheelchair Limitations: no limitations - History of Present Illness Initial comments: Patient is a 57-year-old female presents to emergency department for vaginal bleeding. It today patient states she soaked one pad. Patient has history of endometrial cancer she follow-up with Dr. Bradford states she will have hysterectomy in the future when her A1c is controlled. She is not undergoing chemotherapy or radiation. States she has not had vaginal bleeding in a couple months. She denies abdominal pain, pelvic pain, nausea, vomiting. She recently started Eliquis for pulmonary embolism. She denies any other abnormal bleeding, epistaxis, blood in stool. - Related Data Home Medications Medication Instructions Recorded Confirmed Montelukast [Singulair] 10 mg PO HS 01/09/17 11/06/22 Albuterol Inhaler [Ventolin Hfa 2 puff INHALATION RT-Q4H PRN 01/14/17 11/06/22 Inhaler] allopurinoL [Zyloprim] 100 mg PO BID 01/21/22 11/06/22 Atorvastatin [Lipitor] 10 mg PO HS 02/15/22 11/06/22 Ondansetron [Zofran] 4 mg PO Q12HR PRN 02/15/22 11/06/22 Hydroxychloroquine Sulfate 200 mg PO BID 04/13/22 11/06/22 [Plaquenil] hydrOXYzine HCL [Atarax] 25 mg PO QID 04/13/22 11/06/22 FLUoxetine HCL [PROzac] 20 mg PO BID 10/27/22 11/06/22 Furosemide [Lasix] 80 mg PO DAILY 10/27/22 11/06/22 Gabapentin 600 mg PO BID 10/27/22 11/06/22 Pantoprazole [Protonix] 40 mg PO BID 10/27/22 11/06/22 Apixaban [Eliquis Starter Pack See Taper PO DIRECTED 11/06/22 11/06/22 (for VTE)] Dapagliflozin Propanediol [Farxiga] 10 mg PO DIRECTED 11/06/22 11/06/22 Insulin Detemir (Levemir) [Levemir] 25 unit SQ BID 11/06/22 11/06/22 Metoprolol Tartrate [Lopressor] 25 mg PO DAILY 11/06/22 11/06/22 Previous Rx's Medication Instructions Recorded Acetaminophen Tab [Tylenol] 650 mg PO Q6HR PRN tab 03/28/22 Megestrol [Megace] 40 mg PO BID #60 tablet 04/10/22 INSULIN ASPART (NovoLOG) [NovoLOG 15 unit SQ AC-TID #10 ml 11/01/22 (formulary)] Nystatin 100,000 Unit/gm Powd 1 applic TOPICAL TID 3 Days #1 each 11/01/22 [Mycostatin Powder] Allergies Allergy/AdvReac Type Severity Reaction Status Date / Time ciprofloxacin [From Cipro] Allergy Swelling Verified 11/06/22 15:35 diphenhydramine Allergy Swelling Verified 11/06/22 15:35 [From Benadryl] Influenza Virus Vaccines Allergy Unknown Verified 11/06/22 15:35 iodine Allergy Swelling Verified 11/06/22 15:35 propoxyphene Allergy Swelling Verified 11/06/22 15:35 [From Darvocet-N] red dye Allergy Swelling Verified 11/06/22 15:35 sulfacetamide Allergy Swelling Verified 11/06/22 15:35 [From Sulfamide] yellow dye Allergy Swelling Verified 11/06/22 15:35 Review of Systems ROS Statement: Those systems with pertinent positive or pertinent negative responses have been documented in the HPI. ROS Other: All systems not noted in ROS Statement are negative. Past Medical History Past Medical History: Cancer, COPD, Diabetes Mellitus, Deep Vein Thrombosis (DVT), Hypertension, Renal Disease, Rheumatoid Arthritis (RA), Thyroid Disorder Additional Past Medical History / Comment(s): O2 @ 4L. SLE LUPUS. STAGE 3 KIDNEY DISEASE. Leukemia, GRAVES DZ , kidney stones, gout, Uterine cancer (no surgery, radiation only) History of Any Multi-Drug Resistant Organisms: Other MDRO Past Surgical History: No Surgical Hx Reported Additional Past Surgical History / Comment(s): BILATERAL ARTHROSCOPY KNEES. D & C (MISCARRIAGES). Past Anesthesia/Blood Transfusion Reactions: No Reported Reaction Past Psychological History: Anxiety Smoking Status: Never smoker Past Alcohol Use History: None Reported Past Drug Use History: None Reported - Past Family History Mother Family Medical History: Congestive Heart Failure (CHF), Diabetes Mellitus Father Family Medical History: Congestive Heart Failure (CHF), Dialysis, Hypertension General Exam Limitations: no limitations General appearance: alert Respiratory exam: Present: normal lung sounds bilaterally. Absent: respiratory distress, wheezes, rales, rhonchi, stridor Cardiovascular Exam: Present: regular rate, normal rhythm, normal heart sounds. Absent: systolic murmur, diastolic murmur, rubs, gallop, clicks GI/Abdominal exam: Present: soft, normal bowel sounds. Absent: distended, tenderness, guarding, rebound, rigid Neurological exam: Present: alert Psychiatric exam: Present: normal affect, normal mood Skin exam: Present: warm, dry, intact, normal color. Absent: rash Course Vital Signs 11/06/22 11/06/22 11/06/22 11:50 15:00 16:20 Temperature 98.1 F 98.0 F 98.9 F Pulse Rate 81 72 78 Respiratory 18 17 18 Rate Blood Pressure 135/72 167/79 165/74 O2 Sat by Pulse 96 98 100 Oximetry 11/06/22 16:37 Temperature 98.6 F Pulse Rate 73 Respiratory 16 Rate Blood Pressure 160/72 O2 Sat by Pulse 100 Oximetry - Reevaluation(s) Reevaluation #1: Patient resting comfortably. Still waiting on laboratory studies to be drawn by nurse. 11/06/22 14:13 Medical Decision Making - Medical Decision Making Was pt. sent in by a medical professional or institution ([facility]aro, FURNITURE REMOVALIST, urgent care, hospital, or usp...) When possible be specific @ -No Did you speak to anyone other than the patient for history (EMS, parent, family, police, friend...)? What history was obtained from this source @ -No Did you review nursing and triage notes (agree or disagree)? Why? @ -I reviewed and agree with nursing and triage notes Were old charts reviewed (outside hosp., previous admission, EMS record, old EKG, old radiological studies, urgent care reports/EKG's, usp records)? Report findings @ -No old charts were reviewed Differential Diagnosis (chest pain, altered mental status, abdominal pain women, abdominal pain men, vaginal bleeding, weakness, fever, dyspnea, syncope, headache, dizziness, GI bleed, back pain, seizure, CVA, palpatations, mental health)? @ -Differential Vaginal Bleeding: Spontaneous , threatened , molar , ectopic , bloody show, incompetent cervix, abruptioplacenta, placenta previa, uterine rupture, dysfunctional uterine bleeding, hemorrhage, uterine fib roids, this is not meant to be an all-inclusive list. EKG interpreted by me (3pts min.). @ -As above X-rays interpreted by me (1pt min.). @ -None done CT interpreted by me (1pt min.). @ -None done U/S interpreted by me (1pt. min.). @ -Enlarged bulky uterus and endometrial stripe not visualized What testing was considered but not performed or refused? (CT, X-rays, U/S, labs)? Why? @ -Patient refused pelvic exam and transvaginal ultrasound What meds were considered but not given or refused? Why? @ -None Did you discuss the management of the patient with other professionals (professionals i.e. , PA, FURNITURE REMOVALIST, lab, RT, psych nurse, social sciences professor, secret code expert, teacher, juvenile correctional officer, telephonic nurse case manager)? Give summary @ -No Was smoking cessation discussed for >3mins.? @ -No Was critical care preformed (if so, how long)? @ -No Were there social determinants of health that impacted care today? How? (Homelessness, low income, unemployed, alcoholism, drug addiction, transportation, low edu. Level, literacy, decrease access to med. care, fci, rehab)? @ -No Was there de-escalation of care discussed even if they declined (Discuss DNR or withdrawal of care, Hospice)? DNR status @ -No What co-morbidities impacted this encounter? (DM, HTN, Smoking, COPD, CAD, Cancer, CVA, ARF, Chemo, Hep., AIDS, mental health diagnosis, sleep apnea, morbid obesity)? @ -None Was patient admitted / discharged? Hospital course, mention meds given and route, prescriptions, significant lab abnormalities, going to OR and other pertinent info. @ Patient presenting for vaginal bleeding. She refused pelvic exam. She is nontoxic appearing. Blood pressure stable. Hemoglobin within normal limits. Patient declined transvaginal ultrasound. Transabdominal ultrasound was very limited showed a large bulky uterus. Patient did not have any further vaginal bleeding during her stay. She is discharged in stable medical condition we discussed risks vs. benefits of Eliquis patient will continue to take it and return for any worsening symptoms. Undiagnosed new problem with uncertain prognosis? @-No Drug Therapy requiring intensive monitoring for toxicity (Heparin, Nitro, I nsulin, Cardizem)? @ -No Were any procedures done? @ -No Diagnosis/symptom? @ -DUB Acute, or Chronic, or Acute on Chronic? @ -acute Uncomplicated (without systemic symptoms) or Complicated (systemic symptoms)? @ -uncomplicated Side effects of treatment? @ -No Exacerbation, Progression, or Severe Exacerbation? @ -No Poses a threat to life or bodily function? How? (Chest pain, USA, MA, pneumonia, PE, COPD, DKA, ARF, appy, cholecystitis, CVA, Diverticulitis, Homicidal, Suicidal, threat to staff... and all critical care pts) @ -No Dr. Chandra is my attending - Lab Data Result diagrams: 11/06/22 14:46 11/06/22 15:05 Lab Results 11/06/22 11/06/22 11/06/22 Range/Units 14:45 14:45 14:46 WBC 11.9 H (3.8-10.6) k/uL RBC 4.06 (3.80-5.40) m/uL Hgb 11.8 (11.4-16.0) gm/dL Hct 35.7 (34.0-46.0) % MCV 87.9 (80.0-100.0) fL MCH 29.0 (25.0-35.0) pg MCHC 33.0 (31.0-37.0) g/dL RDW 14.4 (11.5-15.5) % Plt Count 371 (150-450) k/uL MPV 7.9 Neutrophils % 70 % Lymphocytes % 21 % Monocytes % 4 % Eosinophils % 4 % Basophils % 0 % Neutrophils # 8.3 H (1.3-7.7) k/uL Lymphocytes # 2.5 (1.0-4.8) k/uL Monocytes # 0.5 (0-1.0) k/uL Eosinophils # 0.5 (0-0.7) k/uL Basophils # 0.1 (0-0.2) k/uL PT 10.2 (9.0-12.0) sec INR 1.0 (<1.2) APTT 21.3 L (22.0-30.0) sec Sodium (137-145) mmol/L Potassium (3.5-5.1) mmol/L Chloride (98-107) mmol/L Carbon Dioxide (22-30) mmol/L Anion Gap mmol/L BUN (7-17) mg/dL Creatinine (0.52-1.04) mg/dL Est GFR (CKD-EPI)AfAm (>60 ml/min/1.73 sqM) Est GFR (CKD-EPI)NonAf (>60 ml/min/1.73 sqM) Glucose (74-99) mg/dL Calcium (8.4-10.2) mg/dL Total Bilirubin (0.2-1.3) mg/dL AST (14-36) U/L ALT (4-34) U/L Alkaline Phosphatase (38-126) U/L Total Protein (6.3-8.2) g/dL Albumin (3.5-5.0) g/dL Lipase (23-300) U/L Blood Type AB Positive Blood Type Recheck AB Pos Bld Type Recheck Status No Antibody Screen NEGATIVE Spec Expiration Date 11/09/2022 - 234411/06/22 Range/Units 15:05 WBC (3.8-10.6) k/uL RBC (3.80-5.40) m/uL Hgb (11.4-16.0) gm/dL Hct (34.0-46.0) % MCV (80.0-100.0) fL MCH (25.0-35.0) pg MCHC (31.0-37.0) g/dL RDW (11.5-15.5) % Plt Count (150-450) k/uL MPV Neutrophils % % Lymphocytes % % Monocytes % % Eosinophils % % Basophils % % Neutrophils # (1.3-7.7) k/uL Lymphocytes # (1.0-4.8) k/uL Monocytes # (0-1.0) k/uL Eosinophils # (0-0.7) k/uL Basophils # (0-0.2) k/uL PT (9.0-12.0) sec INR (<1.2) APTT (22.0-30.0) sec Sodium 142 (137-145) mmol/L Potassium 3.8 (3.5-5.1) mmol/L Chloride 112 H (98-107) mmol/L Carbon Dioxide 17 L (22-30) mmol/L Anion Gap 13 mmol/L BUN 24 H (7-17) mg/dL Creatinine 1.13 H (0.52-1.04) mg/dL Est GFR (CKD-EPI)AfAm 63 (>60 ml/min/1.73 sqM) Est GFR (CKD-EPI)NonAf 55 (>60 ml/min/1.73 sqM) Glucose 230 H (74-99) mg/dL Calcium 9.2 (8.4-10.2) mg/dL Total Bilirubin 0.4 (0.2-1.3) mg/dL AST 23 (14-36) U/L ALT 23 (4-34) U/L Alkaline Phosphatase 134 H (38-126) U/L Total Protein 7.6 (6.3-8.2) g/dL Albumin 4.3 (3.5-5.0) g/dL Lipase 260 (23-300) U/L Blood Type Blood Type Recheck Bld Type Recheck Status Antibody Screen Spec Expiration Date Disposition Clinical Impression: Dysfunctional uterine bleeding Disposition: HOME SELF-CARE Condition: Good Instructions (If sedation given, give patient instructions): Abnormal (Dysfunctional) Uterine Bleeding (ED) Additional Instructions: Follow-up with oncology in one to 2 days. Return to the emergency department if you experience new, concerning, or worsening symptoms. Is patient prescribed a controlled substance at d/c from ED?: No Referrals: Fela Alicea MD [Primary Care Provider] - 1-2 days
[2022-11-06 14:57] LABS: Basophils # (A) 0.1 k/uL (0-0.2); Basophils % (A) 0 %; Eosinophils # (A) 0.5 k/uL (0-0.7); Eosinophils % (A) 4 %; HCT 35.7 % (34.0-46.0); HGB 11.8 gm/dL (11.4-16.0); Lymphocytes # (A) 2.5 k/uL (1.0-4.8); Lymphocytes % (A) 21 %; MCV 87.9 fL (80.0-100.0); Mean Platelet Volume 7.9; Monocytes # (A) 0.5 k/uL (0-1.0); Monocytes % (A) 4 %; Neutrophils # (A) 8.3 k/uL (1.3-7.7); Neutrophils % (A) 70 %; Platelet Count 371 k/uL (150-450); RBC 4.06 m/uL (3.80-5.40); RDW 14.4 % (11.5-15.5); WBC 11.9 k/uL (3.8-10.6)
[2022-11-06 15:13] LABS: Partial Thromboplastin Time 21.3 sec (22.0-30.0); Prothrombin Time 10.2 sec (9.0-12.0)
[2022-11-06 15:36] LABS: ALT 23 U/L (4-34); AST 23 U/L (14-36); African American GFR (CKD) 63 (>60 ml/min/1.73 sqM); Albumin 4.3 g/dL (3.5-5.0); Alkaline Phosphatase 134 U/L (38-126); Anion Gap 13 mmol/L; Blood Urea Nitrogen 24 mg/dL (7-17); Calcium 9.2 mg/dL (8.4-10.2); Carbon Dioxide 17 mmol/L (22-30); Chloride 112 mmol/L (98-107); Glucose 230 mg/dL (74-99); Lipase 260 U/L (23-300); Non-African American GFR(CKD) 55 (>60 ml/min/1.73 sqM); Potassium 3.8 mmol/L (3.5-5.1); Sodium 142 mmol/L (137-145); Total Bilirubin 0.4 mg/dL (0.2-1.3); Total Protein 7.6 g/dL (6.3-8.2)
[2022-11-06 16:41] VITALS: BP 160/72; PULSE 73; RESP 16; TEMP 98.6
== END 2022-11-06 17:24 | disposition home or self-care (01) ==
LOC: EC 10:41
DX: N93.8 Other specified abnormal uterine and vaginal bleeding (principal); E11.9 Type 2 diabetes mellitus without complications; I10 Essential (primary) hypertension; J44.9 Chronic obstructive pulmonary disease, unspecified; M06.9 Rheumatoid arthritis, unspecified; F41.9 Anxiety disorder, unspecified; Z79.4 Long term (current) use of insulin; Z79.84 Long term (current) use of oral hypoglycemic drugs; Z79.899 Other long term (current) drug therapy; Z88.1 Allergy status to other antibiotic agents; Z88.2 Allergy status to sulfonamides; Z88.7 Allergy status to serum and vaccine; Z88.8 Allergy status to other drugs, medicaments and biological substances; Z91.041 Radiographic dye allergy status; Z88.5 Allergy status to narcotic agent; Z91.02 Food additives allergy status
CPT/HCPCS: 36415; 76856; 80053; 83690; 85025; 85610; 85730; 86850; 86900; 86901; 96360; 99285

== ENCOUNTER 2022-11-21 14:56 | Inpatient (IN) | payer MEDICARE ==
--- NOTE | 2022-11-21 16:37 | ED ---
Female Urogenital HPI - General Chief complaint: Vaginal Bleeding Stated complaint: vaginal bleeding Time Seen by Provider: 11/21/22 15:15 Source: patient, EMS, RN notes reviewed, old records reviewed Mode of arrival: EMS - History of Present Illness Initial comments: This is a 57 show female to the emergency department for evaluation. Patient is very histrionic here in the ER complaining of abdominal pain back pain and arm pain leg pain weakness. Patient also complains of vaginal bleeding with history of cancer. The patient has no active bleeding here in the emergency department. Patient continues to complain of pain weakness MD Complaint: vaginal bleeding, pelvic pain, other (Abdominal pain) -: days(s) Location: suprapubic Severity: moderate Severity scale (1-10): 6 Quality: cramping, dull Consistency: constant Improves with: none Worsens with: none Patient : No Associated Symptoms: abdominal pain - Related Data Home Medications Medication Instructions Recorded Confirmed Montelukast [Singulair] 10 mg PO HS 01/09/17 11/21/22 Albuterol Inhaler [Ventolin Hfa 2 puff INHALATION RT-Q4H PRN 01/14/17 11/21/22 Inhaler] allopurinoL [Zyloprim] 100 mg PO BID 01/21/22 11/21/22 Atorvastatin [Lipitor] 10 mg PO HS 02/15/22 11/21/22 Ondansetron [Zofran] 4 mg PO Q12HR PRN 02/15/22 11/21/22 Hydroxychloroquine Sulfate 200 mg PO BID 04/13/22 11/21/22 [Plaquenil] hydrOXYzine HCL [Atarax] 25 mg PO QID 04/13/22 11/21/22 FLUoxetine HCL [PROzac] 20 mg PO BID 10/27/22 11/21/22 Furosemide [Lasix] 40 mg PO DAILY 10/27/22 11/21/22 Gabapentin 600 mg PO BID 10/27/22 11/21/22 Pantoprazole [Protonix] 40 mg PO BID 10/27/22 11/21/22 Insulin Detemir (Levemir) [Levemir] 25 unit SQ BID 11/06/22 11/21/22 Metoprolol Tartrate [Lopressor] 25 mg PO DAILY 11/06/22 11/21/22 Empagliflozin [Jardiance] 10 mg PO DAILY 11/21/22 11/21/22 Previous Rx's Medication Instructions Recorded Acetaminophen Tab [Tylenol] 650 mg PO Q6HR PRN tab 03/28/22 Megestrol [Megace] 40 mg PO BID #60 tablet 04/10/22 INSULIN ASPART (NovoLOG) [NovoLOG 15 unit SQ AC-TID #10 ml 11/01/22 (formulary)] Enoxaparin [Lovenox] 40 mg SQ DAILY each 11/22/22 INSULIN ASPART (NovoLOG) [NovoLOG 0 unit SQ ACHS each 11/22/22 (formulary)] Allergies Allergy/AdvReac Type Severity Reaction Status Date / Time ciprofloxacin [From Cipro] Allergy Swelling Verified 11/21/22 19:06 diphenhydramine Allergy Swelling Verified 11/21/22 19:06 [From Benadryl] Influenza Virus Vaccines Allergy Unknown Verified 11/21/22 19:06 iodine Allergy Swelling Verified 11/21/22 19:06 propoxyphene Allergy Swelling Verified 11/21/22 19:06 [From Darvocet-N] red dye Allergy Swelling Verified 11/21/22 19:06 sulfacetamide Allergy Swelling Verified 11/21/22 19:06 [From Sulfamide] yellow dye Allergy Swelling Verified 11/21/22 19:06 Review of Systems ROS Statement: Those systems with pertinent positive or pertinent negative responses have been documented in the HPI. ROS Other: All systems not noted in ROS Statement are negative. Past Medical History Past Medical History: Cancer, COPD, Diabetes Mellitus, Deep Vein Thrombosis (DVT), Hypertension, Renal Disease, Rheumatoid Arthritis (RA), Thyroid Disorder Additional Past Medical History / Comment(s): O2 @ 4L. SLE LUPUS. STAGE 3 KIDNEY DISEASE. Leukemia, GRAVES DZ , kidney stones, gout, Uterine cancer (no surgery, radiation only) History of Any Multi-Drug Resistant Organisms: Other MDRO Past Surgical History: No Surgical Hx Reported Additional Past Surgical History / Comment(s): BILATERAL ARTHROSCOPY KNEES. D & C (MISCARRIAGES). Past Anesthesia/Blood Transfusion Reactions: No Reported Reaction Past Psychological History: Anxiety Smoking Status: Never smoker Past Alcohol Use History: None Reported Past Drug Use History: None Reported - Past Family History Mother Family Medical History: Congestive Heart Failure (CHF), Diabetes Mellitus Father Family Medical History: Congestive Heart Failure (CHF), Dialysis, Hypertension General Exam - General Exam Comments Initial Comments: Patient is significantly disabled with significant pain on any movement General appearance: alert, in no apparent distress Head exam: Present: atraumatic, normocephalic, normal inspection Eye exam: Present: normal appearance, PERRL, EOMI. Absent: scleral icterus, conjunctival injection, periorbital swelling ENT exam: Present: normal exam, mucous membranes moist Neck exam: Present: normal inspection. Absent: tenderness, meningismus, lymphadenopathy Respiratory exam: Present: normal lung sounds bilaterally. Absent: respiratory distress, wheezes, rales, rhonchi, stridor Cardiovascular Exam: Present: regular rate, normal rhythm, normal heart sounds. Absent: systolic murmur, diastolic murmur, rubs, gallop, clicks GI/Abdominal exam: Present: soft, normal bowel sounds. Absent: distended, tenderness, guarding, rebound, rigid Extremities exam: Present: normal inspection, full ROM, normal capillary refill. Absent: tenderness, pedal edema, joint swelling, calf tenderness Back exam: Present: normal inspection Neurological exam: Present: alert, oriented X3, CN II-XII intact Psychiatric exam: Present: normal affect, normal mood Skin exam: Present: warm, dry, intact, normal color. Absent: rash Course Vital Signs 11/21/22 11/21/22 11/21/22 15:01 15:30 16:00 Temperature 98.7 F Pulse Rate 99 98 95 Respiratory 19 Rate Blood Pressure 131/84 131/84 131/84 O2 Sat by Pulse 100 100 100 Oximetry 11/21/22 11/21/22 11/21/22 17:00 18:30 19:00 Temperature Pulse Rate 90 90 94 Respiratory 20 Rate Blood Pressure 131/84 131/84 115/78 O2 Sat by Pulse 100 100 Oximetry 11/22/22 11/22/22 11/22/22 01:00 01:30 06:44 Temperature Pulse Rate 107 H 100 Respiratory 20 20 Rate Blood Pressure 158/80 143/81 144/78 O2 Sat by Pulse 100 100 Oximetry - Reevaluation(s) Reevaluation #1: 11/21/22 23:28 Medical record is reviewed Reevaluation #2: 11/21/22 23:28 Patient has no significant active bleeding here in the ER Reevaluation #3: 11/21/22 23:28 Patient's IV is difficult to start, patient's blood draw was also difficult pain is difficult to control Reevaluation #4: 11/21/22 23:29 Was pt. sent in by a medical professional or institution ([facility] Ferraro, [employer], urgent care, hospital, or group home...) When possible be specific @ -no Did you speak to anyone other than the patient for history (EMS, parent, family, police, friend...)? What history was obtained from this source @ -no Did you review nursing and triage notes (agree or disagree)? Why? @ -agree Are old charts reviewed (outside hosp., previous admission, EMS record, old EKG, old radiological studies, urgent care reports/EKG's, group home records)? Report findings @ -yes Differential Diagnosis (chest pain, altered mental status, abdominal pain women, abdominal pain men, vaginal bleeding, weakness, fever, dyspnea, syncope, headache, dizziness, GI bleed, back pain, seizure, CVA, palpatations, mental health, musculoskeletal)? @ -prior EKG interpreted by me (3pts min.). @ -no X-rays interpreted by me (1pt min.). @ -no CT interpreted by me (1pt min.). @ -no U/S interpreted by me (1pt. min.). @ -no What testing was considered but not performed or refused? (CT, X-rays, U/S, labs)? Why? @ -none What meds were considered but not given or refused? Why? @ -none Did you discuss the management of the patient with other professionals (professionals i.e. [facility] Ferraro, [employer], lab, RT, psych nurse, licensed social worker, structural steel engineer, teacher, business services officer, case filler)? Give summary @ -no Was smoking cessation discussed for >3mins.? @ -no Was critical care preformed (if so, how long)? @ -no Were there social determinants of health that impacted care today? How? (Homelessness, low income, unemployed, alcoholism, drug addiction, transportation, low edu. Level, literacy, decrease access to med. care, half-way, rehab)? @ -none Was there de-escalation of care discussed even if they declined (Discuss DNR or withdrawal of care, Hospice)? DNR status @ -no What co-morbidities impacted this encounter? (DM, HTN, Smoking, COPD, CAD, Cancer, CVA, ARF, Chemo, Hep., AIDS, mental health diagnosis, sleep apnea, morbid obesity)? @ -none Was patient admitted / discharged? Hospital course, mention meds given and route, prescriptions, significant lab abnormalities, going to OR and other pertinent info. @ - 57 female to the emergency department for evaluation of abdominal pain severe intractable abdominal pain and complains of vaginal bleeding although patient has no vaginal bleeding here in the emergency department patient be admitted for pain control and observation Admitted Undiagnosed new problem with uncertain prognosis? @ -no Drug Therapy requiring intensive monitoring for toxicity (Heparin, Nitro, Insulin, Cardizem)? @ -no Were any procedures done? @ -no Diagnosis/symptom? @ -Chronic pain debility Acute, or Chronic, or Acute on Chronic? @ -Acute Uncomplicated (without systemic symptoms) or Complicated (systemic symptoms)? @ -Complicated Side effects of treatment? @ -no Exacerbation, Progression, or Severe Exacerbation? @ -exacerbation Poses a threat to life or bodily function? How? (Chest pain, USA, IA, pneumonia, PE, COPD, DKA, ARF, appy, cholecystitis, CVA, Diverticulitis, Homicidal, Suicidal, threat to staff... and all critical care pts) @ -no Reevaluation #5: 11/21/22 23:30 Differential Abdominal Pain Women: Appendicitis, Cholecystitis, diverticulosis, ischemic bowel, pancreatitis, hepatitis, UTI, gastroenteritis, AAA, incarcerated hernia, bowel obstruction, constipation, inflammatory bowel, hepatitis, peptic ulcer disease, splenic infarction, perforated viscus, vulvitis, ovarian torsion, PID, kidney stone, p lacenta abruption, this is not meant to be an all-inclusive list - Consultations Consultation #1: spoke w BRIEN ok for admission Medical Decision Making - Medical Decision Making 57 female to the emergency department for evaluation of abdominal pain severe intractable abdominal pain and complains of vaginal bleeding although patient has no vaginal bleeding here in the emergency department patient be admitted for pain control and observation - Lab Data Result diagrams: 11/28/22 06:14 11/28/22 06:14 Lab Results 11/21/22 11/21/22 11/21/22 Range/Units 17:28 17:28 22:07 WBC 10.9 H (3.8-10.6) k/uL RBC 4.11 (3.80-5.40) m/uL Hgb 12.1 (11.4-16.0) gm/dL Hct 35.3 (34.0-46.0) % MCV 86.0 (80.0-100.0) fL MCH 29.4 (25.0-35.0) pg MCHC 34.2 (31.0-37.0) g/dL RDW 13.7 (11.5-15.5) % Plt Count 340 (150-450) k/uL MPV 7.6 Neutrophils % 65 % Lymphocytes % 26 % Monocytes % 4 % Eosinophils % 3 % Basophils % 1 % Neutrophils # 7.1 (1.3-7.7) k/uL Lymphocytes # 2.8 (1.0-4.8) k/uL Monocytes # 0.5 (0-1.0) k/uL Eosinophils # 0.3 (0-0.7) k/uL Basophils # 0.1 (0-0.2) k/uL PT (9.0-12.0) sec INR (<1.2) APTT (22.0-30.0) sec Sodium 139 (137-145) mmol/L Potassium 4.7 (3.5-5.1) mmol/L Chloride 106 (98-107) mmol/L Carbon Dioxide 21 L (22-30) mmol/L Anion Gap 12 mmol/L BUN 21 H (7-17) mg/dL Creatinine 1.51 H (0.52-1.04) mg/dL Est GFR (CKD-EPI)AfAm 44 (>60 ml/min/1.73 sqM) Est GFR (CKD-EPI)NonAf 39 (>60 ml/min/1.73 sqM) Glucose 205 H (74-99) mg/dL Calcium 9.2 (8.4-10.2) mg/dL Magnesium 1.6 (1.6-2.3) mg/dL Total Bilirubin 1.0 (0.2-1.3) mg/dL AST 24 (14-36) U/L ALT 14 (4-34) U/L Alkaline Phosphatase 162 H (38-126) U/L Troponin I <0.012 (0.000-0.034) ng/mL Total Protein 6.9 (6.3-8.2) g/dL Albumin 3.8 (3.5-5.0) g/dL 11/21/22 Range/Units 22:07 WBC (3.8-10.6) k/uL RBC (3.80-5.40) m/uL Hgb (11.4-16.0) gm/dL Hct (34.0-46.0) % MCV (80.0-100.0) fL MCH (25.0-35.0) pg MCHC (31.0-37.0) g/dL RDW (11.5-15.5) % Plt Count (150-450) k/uL MPV Neutrophils % % Lymphocytes % % Monocytes % % Eosinophils % % Basophils % % Neutrophils # (1.3-7.7) k/uL Lymphocytes # (1.0-4.8) k/uL Monocytes # (0-1.0) k/uL Eosinophils # (0-0.7) k/uL Basophils # (0-0.2) k/uL PT 10.2 (9.0-12.0) sec INR 1.0 (<1.2) APTT 22.2 (22.0-30.0) sec Sodium (137-145) mmol/L Potassium (3.5-5.1) mmol/L Chloride (98-107) mmol/L Carbon Dioxide (22-30) mmol/L Anion Gap mmol/L BUN (7-17) mg/dL Creatinine (0.52-1.04) mg/dL Est GFR (CKD-EPI)AfAm (>60 ml/min/1.73 sqM) Est GFR (CKD-EPI)NonAf (>60 ml/min/1.73 sqM) Glucose (74-99) mg/dL Calcium (8.4-10.2) mg/dL Magnesium (1.6-2.3) mg/dL Total Bilirubin (0.2-1.3) mg/dL AST (14-36) U/L ALT (4-34) U/L Alkaline Phosphatase (38-126) U/L Troponin I (0.000-0.034) ng/mL Total Protein (6.3-8.2) g/dL Albumin (3.5-5.0) g/dL Disposition Clinical Impression: Weakness, Vaginal bleeding, Anemia, Morbid obesity, Abdominal pain Disposition: ADMITTED IP TO THIS HOSP Condition: Fair Is patient prescribed a controlled substance at d/c from ED?: No Time of Disposition: 23:15
[2022-11-21] MEDS ORDERED: SODIUM CHLORIDE 0.9% 1,000 ML IV STA (16:38)
[2022-11-21] MEDS ORDERED: SODIUM CHLORIDE 0.9% 500 ML 500 ML IV STA (16:38)
[2022-11-21 17:52] LABS: ALT 14 U/L (4-34); African American GFR (CKD) 44 (>60 ml/min/1.73 sqM); Albumin 3.8 g/dL (3.5-5.0); Anion Gap 12 mmol/L; Blood Urea Nitrogen 21 mg/dL (7-17); Calcium 9.2 mg/dL (8.4-10.2); Carbon Dioxide 21 mmol/L (22-30); Chloride 106 mmol/L (98-107); Glucose 205 mg/dL (74-99); Non-African American GFR(CKD) 39 (>60 ml/min/1.73 sqM); Sodium 139 mmol/L (137-145); Total Protein 6.9 g/dL (6.3-8.2)
[2022-11-21 17:53] LABS: AST 24 U/L (14-36); Alkaline Phosphatase 162 U/L (38-126); Magnesium 1.6 mg/dL (1.6-2.3); Potassium 4.7 mmol/L (3.5-5.1)
[2022-11-21 22:25] LABS: Basophils # (A) 0.1 k/uL (0-0.2); Basophils % (A) 1 %; Eosinophils # (A) 0.3 k/uL (0-0.7); Eosinophils % (A) 3 %; HCT 35.3 % (34.0-46.0); HGB 12.1 gm/dL (11.4-16.0); Lymphocytes # (A) 2.8 k/uL (1.0-4.8); Lymphocytes % (A) 26 %; MCH 29.4 pg (25.0-35.0); MCHC 34.2 g/dL (31.0-37.0); Mean Platelet Volume 7.6; Monocytes # (A) 0.5 k/uL (0-1.0); Monocytes % (A) 4 %; Neutrophils # (A) 7.1 k/uL (1.3-7.7); Neutrophils % (A) 65 %; Platelet Count 340 k/uL (150-450); RBC 4.11 m/uL (3.80-5.40); RDW 13.7 % (11.5-15.5); WBC 10.9 k/uL (3.8-10.6)
[2022-11-21 22:38] LABS: Partial Thromboplastin Time 22.2 sec (22.0-30.0); Prothrombin Time 10.2 sec (9.0-12.0)
[2022-11-21] MEDS ORDERED: NALOXONE 0.4 MG/ML 1 ML VIAL IV PRN (23:21)
[2022-11-21] MEDS ORDERED: ONDANSETRON 4 MG/2 ML VIAL IVP PRN (23:21)
[2022-11-22] MEDS ORDERED: ACETAMINOPHEN TAB 325 MG TAB PO PRN (01:07)
[2022-11-22] MEDS: hydrOXYzine HCL 25 MG TAB PO SCH ×5 (01:33→22:06)
[2022-11-22] MEDS: MORPHINE SULFATE 4 MG/ML SYRINGE IV PRN ×5 (01:41→22:16)
[2022-11-22] MEDS: SODIUM CHLORIDE 0.9% 1,000 ML IV SCH (02:06)
[2022-11-22] MEDS ORDERED: DEXTROSE 50% SYRINGE 50 ML IVP PRN ×2 (06:30)
[2022-11-22] MEDS: INSULIN ASPART (NovoLOG) 100 UNIT/ML VIAL SQ SCH ×6 (08:58→20:21)
[2022-11-22] MEDS: allopurinoL 100 MG TAB PO SCH ×2 (09:10→20:15)
[2022-11-22] MEDS: METOPROLOL TARTRATE 25 MG TAB PO SCH (09:10)
[2022-11-22] MEDS: GABAPENTIN 300 MG CAP PO SCH ×2 (09:10→20:15)
[2022-11-22] MEDS: FUROSEMIDE 40 MG TAB PO SCH (09:10)
[2022-11-22] MEDS: FLUoxetine HCL 20 MG CAP PO SCH ×2 (09:10→20:15)
[2022-11-22 09:24] LABS: Glucose,Whole Blood 318 mg/dL (70-110)
[2022-11-22 09:36] LABS: Basophils # (A) 0.1 k/uL (0-0.2); Basophils % (A) 1 %; Eosinophils # (A) 0.3 k/uL (0-0.7); Eosinophils % (A) 3 %; HCT 34.6 % (34.0-46.0); HGB 11.2 gm/dL (11.4-16.0); Lymphocytes # (A) 3.4 k/uL (1.0-4.8); Lymphocytes % (A) 27 %; MCH 28.6 pg (25.0-35.0); MCHC 32.3 g/dL (31.0-37.0); MCV 88.4 fL (80.0-100.0); Mean Platelet Volume 8.6; Monocytes # (A) 0.6 k/uL (0-1.0); Monocytes % (A) 5 %; Neutrophils # (A) 8.2 k/uL (1.3-7.7); Neutrophils % (A) 65 %; Platelet Count 399 k/uL (150-450); RBC 3.92 m/uL (3.80-5.40); WBC 12.6 k/uL (3.8-10.6)
[2022-11-22] MEDS: INSULIN DETEMIR (LEVEMIR) 100 UNIT/ML SYR SQ SCH ×2 (09:39→20:16)
--- NOTE | 2022-11-22 09:39 | P.CNPUL ---
History of Present Illness Consult date: 11/22/22 Requesting physician: Isabela Shelley Reason for consult: COPD Chief complaint: Vaginal bleeding, weakness History of present illness: This is a pleasant 57-year-old female patient with known history of mild intermittent chronic bronchial asthma, chronic hypoxemic respiratory failure, suspected obstructive sleep apnea, pulmonary embolism, endometrial wall thickening pending surgical intervention. Her diabetes has been uncontrolled has been postponed. In the interim she has been on her Eliquis for pulmonary embolism. She had a most recent VQ scan last admission 10/28/2022 that revealed a left upper lobe posterior perfusion defect consistent with pulmonary embolism. She has had ongoing issues with vaginal bleeding and at one point was recommended Christina filter placement. She was however continued on her Eliquis instead. Senna back to the emergency room yesterday with increasing vaginal bleeding and weakness. No bleeding was noted in the emergency department. Hemoglobin 12.1. White count 10.9. Platelets 340. Sodium 139. Potassium 4.7. Bicarb 21. BUN 21. Creatinine 1.51. Glucose 205. Troponin negative 1. She is seen today in consultation on the regular medical floor. She is currently resting in bed. Awake and alert in no acute distress. Maintaining O2 saturations up to 100% on 4 L nasal cannula. Afebrile. Hemodynamically stable. She denies any vaginal bleeding currently. She has been off Eliquis. Review of Systems REVIEW OF SYSTEMS: CONSTITUTIONAL: Generalized weakness. Denies any recent significant weight loss or weight gain. EYES: Denies change in vision. EARS, NOSE, MOUTH, THROAT: Denies headaches, denies sore throat. CARDIOVASCULAR: Denies chest pain, palpitations or syncopal episodes. RESPIRATORY: Denies shortness of breath, cough, congestion or hemoptysis. GASTROINTESTINAL: Denies change in appetite, denies abdominal pain GENITOURINARY: Positive for vaginal bleeding. MUSKULOSKELETAL: Denies pain, denies swelling. INTEGUMENTARY: Denies rash, denies eczema. NEUROLOGICAL: Denies recent memory loss, no recent seizure activity. PSYCHIATRIC: Denies anxiety, denies depression. HEMATOLOGIC/LYMPHATIC: Denies anemia, denies enlarged lymph nodes. Past Medical History Past Medical History: Cancer, COPD, Diabetes Mellitus, Deep Vein Thrombosis (DVT), Hypertension, Renal Disease, Rheumatoid Arthritis (RA), Thyroid Disorder Additional Past Medical History / Comment(s): O2 @ 4L. SLE LUPUS. STAGE 3 KIDNEY DISEASE. Leukemia, GRAVES DZ , kidney stones, gout, Uterine cancer (no surgery, radiation only) History of Any Multi-Drug Resistant Organisms: Other MDRO Past Surgical History: No Surgical Hx Reported Additional Past Surgical History / Comment(s): BILATERAL ARTHROSCOPY KNEES. D & C (MISCARRIAGES). Past Anesthesia/Blood Transfusion Reactions: No Reported Reaction Past Psychological History: Anxiety Smoking Status: Never smoker Past Alcohol Use History: None Reported Past Drug Use History: None Reported - Past Family History Mother Family Medical History: Congestive Heart Failure (CHF), Diabetes Mellitus Father Family Medical History: Congestive Heart Failure (CHF), Dialysis, Hypertension Medications and Allergies Home Medications Medication Instructions Recorded Confirmed Type Montelukast [Singulair] 10 mg PO HS 01/09/17 11/21/22 History Albuterol Inhaler [Ventolin Hfa 2 puff INHALATION RT-Q4H PRN 01/14/17 11/21/22 History Inhaler] allopurinoL [Zyloprim] 100 mg PO BID 01/21/22 11/21/22 History Atorvastatin [Lipitor] 10 mg PO HS 02/15/22 11/21/22 History Ondansetron [Zofran] 4 mg PO Q12HR PRN 02/15/22 11/21/22 History Acetaminophen Tab [Tylenol] 650 mg PO Q6HR PRN tab 03/28/22 11/21/22 Rx Megestrol [Megace] 40 mg PO BID #60 tablet 04/10/22 11/21/22 Rx Hydroxychloroquine Sulfate 200 mg PO BID 04/13/22 11/21/22 History [Plaquenil] hydrOXYzine HCL [Atarax] 25 mg PO QID 04/13/22 11/21/22 History FLUoxetine HCL [PROzac] 20 mg PO BID 10/27/22 11/21/22 History Furosemide [Lasix] 40 mg PO DAILY 10/27/22 11/21/22 History Gabapentin 600 mg PO BID 10/27/22 11/21/22 History Pantoprazole [Protonix] 40 mg PO BID 10/27/22 11/21/22 History INSULIN ASPART (NovoLOG) [NovoLOG 15 unit SQ AC-TID #10 ml 11/01/22 11/21/22 Rx (formulary)] Insulin Detemir (Levemir) [Levemir] 25 unit SQ BID 11/06/22 11/21/22 History Metoprolol Tartrate [Lopressor] 25 mg PO DAILY 11/06/22 11/21/22 History Apixaban [Eliquis] 5 mg PO BID 11/21/22 11/21/22 History Empagliflozin [Jardiance] 10 mg PO DAILY 11/21/22 11/21/22 History Allergies Allergy/AdvReac Type Severity Reaction Status Date / Time ciprofloxacin [From Cipro] Allergy Swelling Verified 11/21/22 19:06 diphenhydramine Allergy Swelling Verified 11/21/22 19:06 [From Benadryl] Influenza Virus Vaccines Allergy Unknown Verified 11/21/22 19:06 iodine Allergy Swelling Verified 11/21/22 19:06 propoxyphene Allergy Swelling Verified 11/21/22 19:06 [From Darvocet-N] red dye Allergy Swelling Verified 11/21/22 19:06 sulfacetamide Allergy Swelling Verified 11/21/22 19:06 [From Sulfamide] yellow dye Allergy Swelling Verified 11/21/22 19:06 Physical Exam Vitals: Vital Signs Temp Pulse Pulse Resp BP BP Pulse Ox 11/22/22 09:08 98 F 118 H 20 142/71 97 11/22/22 06:44 100 20 144/78 100 11/22/22 01:30 143/81 11/22/22 01:00 107 H 20 158/80 100 11/21/22 19:00 94 20 115/78 11/21/22 18:30 90 131/84 100 11/21/22 17:00 90 131/84 100 11/21/22 16:00 95 131/84 100 11/21/22 15:30 98 131/84 100 11/21/22 15:01 98.7 F 99 19 131/84 100 Intake and Output 11/21/22 11/22/22 11/22/22 22:59 06:59 14:59 Other: Voiding Method External Catheter Weight 127.006 kg GENERAL EXAM: Alert, anxious 57-year-old female, on 4 L nasal cannula, fairly co mfortable in no apparent distress. HEAD: Normocephalic. EYES: Normal reaction of pupils, equal size. NOSE: Clear with pink turbinates. THROAT: No erythema or exudates. NECK: No masses, no JVD. CHEST: No chest wall deformity. LUNGS: Equal air entry with no crackles, wheeze, rhonchi or dullness. CVS: S1 and S2 normal with no audible murmur, regular rhythm. ABDOMEN: No hepatosplenomegaly, normal bowel sounds, no guarding or rigidity. SPINE: No scoliosis or deformity SKIN: No rashes CENTRAL NERVOUS SYSTEM: No focal deficits, tone is normal in all 4 extremities. EXTREMITIES: There is no peripheral edema. No clubbing, no cyanosis. Peripheral pulses are intact. Results - Laboratory Findings CBC and BMP: 11/22/22 07:47 11/22/22 07:47 PT/INR, D-dimer PT 10.2 sec (9.0-12.0) 11/21/22 22:07 INR 1.0 (<1.2) 11/21/22 22:07 Abnormal lab findings: Abnormal Labs 11/21/22 11/21/22 17:28 22:07 WBC 10.9 H Carbon Dioxide 21 L BUN 21 H Creatinine 1.51 H Glucose 205 H Alkaline Phosphatase 162 H Assessment and Plan Assessment: Generalized weakness suspect secondary to reported vaginal bleeding History of endometrial adenocarcinoma, surgery still pending Diabetes mellitus, type II, poorly controlled Recent 10/27/2022 admission for syncopal episode suspect orthostatic, hypergly cemic Pulmonary embolism, left upper lobe, on VQ scan 10/28/2022 maintained on Eliquis History of right upper extremity DVT Morbid obesity with suspected obstructive sleep apnea Mild intermittent chronic bronchial asthma Chronic hypoxemic respiratory failure maintained on oxygen at 2 L/m per nasal cannula Stage IV chronic kidney disease Hyperlipidemia Hypertension History of anxiety/depression Plan: The patient was seen and evaluated Medications and labs reviewed Resume Singulair Titrate the FiO2 as tolerated Consult hematology regarding anticoagulation use and recurrent vaginal bleeding We will continue to follow and make further recommendations based on her clinical status I have personally seen and examined the patient, performed the documentation and the assessment and plan as written. Number of minutes spent on the visit: 20.
[2022-11-22] MEDS: DAPAGLIFLOZIN PROPANEDIOL 5 MG TABLET PO SCH (09:40)
[2022-11-22 09:43] LABS: ALT 13 U/L (4-34); AST 15 U/L (14-36); African American GFR (CKD) 39 (>60 ml/min/1.73 sqM); Albumin 3.7 g/dL (3.5-5.0); Alkaline Phosphatase 162 U/L (38-126); Anion Gap 16 mmol/L; Blood Urea Nitrogen 24 mg/dL (7-17); Carbon Dioxide 20 mmol/L (22-30); Chloride 105 mmol/L (98-107); Glucose 269 mg/dL (74-99); Magnesium 1.6 mg/dL (1.6-2.3); Non-African American GFR(CKD) 34 (>60 ml/min/1.73 sqM); Potassium 3.9 mmol/L (3.5-5.1); Sodium 141 mmol/L (137-145); Total Bilirubin 0.8 mg/dL (0.2-1.3); Total Protein 6.6 g/dL (6.3-8.2)
[2022-11-22 11:11] LABS: Phosphorus 4.2 mg/dL (2.5-4.5)
[2022-11-22 11:46] LABS: Glucose,Whole Blood 295 mg/dL (70-110)
--- NOTE | 2022-11-22 13:20 | HP ---
HISTORY AND PHYSICAL CHIEF COMPLAINT: Vaginal bleeding. HISTORY OF PRESENT ILLNESS: This is a 57-year-old woman with a past medical history of multiple medical problems, which was recently admitted with a syncopal episode. The patient apparently has endometrial cancer, and the patient is supposed to have surgery in [facility], which has been postponed with pulmonary, cardiac, and diabetic/endocrine issues. Hemoglobin A1c was apparently elevated. Currently, the patient is having moderate bleeding and came to [facility]. The hemoglobin was found to be 11.2. The sugars are between 205 and 318. There is no history of any fever, rigor, or chills at this time. PAST MEDICAL HISTORY: History of endometrial cancer and history of diabetes mellitus. Rest of the history and rest of the chart are also reviewed. HOME MEDICATIONS: Reviewed include Atarax. Doses and rest of the medications are reviewed. ALLERGIES: Cipro. Rest of the allergies are noted. FAMILY HISTORY: History of CHF. SOCIAL HISTORY: No history of alcohol or smoking. REVIEW OF SYSTEMS: Fourteen-point review is negative except as mentioned earlier. PHYSICAL EXAMINATION: VITAL SIGNS: Pulse is 100, blood pressure 144/70, respirations 20. HEENT: Conjunctivae are normal. NECK: No jugular venous distention. CARDIOVASCULAR: S1 and S2 muffled. RESPIRATORY: Breath sounds diminished at the bases. Few scattered rhonchi. ABDOMEN: Soft. Obese. LEGS: No edema. NERVOUS SYSTEM: Nonfocal. LABORATORY DATA: Creatinine 1.69. WBC 12.9. ASSESSMENT: 1. Vaginal bleeding from possible endometrial cancer with acute blood loss anemia. 2. Diabetes mellitus, type 2 with hyperglycemia. 3. Chronic kidney disease, stage 3. 4. History of chronic obstructive pulmonary disease. 5. History of deep venous thrombosis. 6. Hypertension. 7. History of rheumatoid arthritis. 8. Multiple medical issues. 9. Chronic hypoxic respiratory failure. RECOMMENDATIONS AND DISCUSSION: In this 57-year-old woman presented with multiple complex medical issues, we will monitor the patient closely. We will follow with Hematology/Oncology and [employer]. Otherwise, we will monitor hemoglobin for any further drop, and if there is a drop, we will transfuse p.r.n. Otherwise, we will also try to contact the [facility] and oncologist and try to proceed with surgery. Even though the patient's hemoglobin A1c is elevated, the blood sugars could be controlled with insulin drip during the surgery, but overall prognosis is extremely guarded because of multiple complex medical issues. Further recommendations to follow. See orders for the details. MMODL / IJN: [id number] /
[2022-11-22] MEDS: ENOXAPARIN 40 MG/0.4 ML SYRINGE SQ SCH (14:33)
--- NOTE | 2022-11-22 15:52 | P.DS ---
Providers Date of admission: 11/21/22 23:24 Expected date of discharge: 11/22/22 Attending physician: Isabela Shelley Consults: 11/22/22 08:25 Consult Physician Routine Consulting Provider: Pablo Martin Consult Reason/Comments: Anticoagulation, vaginal bleeding Do you want consulting provider notified?: Yes Primary care physician: Deanne Chahal Hospital Course: Final diagnosis Vaginal bleeding, secondary to endometrial cancer with acute blood loss anemia Diabetes mellitus, type II, insulin-dependent uncontrolled with hyperglycemia Chronic kidney disease stage III History of COPD, not in exacerbation Chronic hypoxic respiratory failure secondary to COPD wears 4 L outpatient History of deep vein thrombosis and PE maintained on anticoagulation Hypertension history History of rheumatoid arthritis History of lupus History of leukemia History of anxiety Morbid obesity with a BMI of 45.2 GI prophylaxis DVT prophylaxis Full code Discharge disposition Patient is being transferred in a stable condition with guarded prognosis to [facility] for further [facility] oncology care . Patient has been accepted by Dr. Hernandez, medicine attending at [facility]. [facility]/onc will be on consult as patient follows with Dr. Euceda in the outpatient setting. Total time taken is greater than 35 minutes. Hospital course This is a 57-year-old female who was recently admitted with vaginal bleeding along with abdominal pain being closely monitored. Oncology following the patient along with pulmonary as patient has a past medical history of endometrial cancer along with previous PE, DVTs maintained on anticoagulation, uncontrolled diabetes with a hemoglobin A1c over 12, morbid obesity with a BMI of 45.2, lupus, history of leukemia and thyroid disorder. Patient has been recently evaluated by oncology in the outpatient setting and received an IUD an attempt to minimize some of the bleeding although patient presents with further increased bleeding with large clots and continued bright red blood. Hemoglobin on admission was 12.1 and follow-up labs this morning shows a drop of 11.2. Patient has not required transfusion although being monitored closely in the event she will need a transfusion. Given the extent of this situation, recommending transfer to tertiary treatment for [facility]/ONC on evaluation and possible surgical intervention. Patient is agreeable to the transfer. Currently no reports of chest pain, shortness of breath, or palpitations. Patient is reporting abdominal pain and tenderness in the lower right quadrants Patient is afebrile. No reports of nausea or vomiting and patient is tolerating diet. Patient will be transferred to [facility] in [place] once a bed becomes available. Patient has been accepted by medicine and will consult gynecology oncology. Residents from both teams have received report and aware of transfer. Physical exam: Gen: This is a 57-year-old female who is awake, alert and oriented 3, well- developed, well-nourished, morbidly obese HEENT: Head is atraumatic, normocephalic. Pupils equal, round. Sclerae is anicteric. NECK: Supple. No JVD. No lymphadenopathy. No thyromegaly. LUNGS: Diminished breath sounds bilaterally with some scattered rhonchi. No intercostal retractions. HEART: S1, S2 are muffled ABDOMEN: Soft. Obese, tender in bilateral lower left and right quadrants Bowel sounds are present. No masses. EXTREMITIES: No pedal edema. No calf tenderness. Generalized edema noted NEUROLOGICAL: Patient is awake, alert and oriented x3. Cranial nerves 2 through 12 are grossly intact. Diffusely weak Please refer to medication reconciliation sheet for a list of medications. The impression and plan of care has been dictated by Fabienne Fortune, Nurse Practitioner as directed. Dr. Karsten MD I have performed a history and examination and MDM of this patient, discussed the same with the dictator, and agree with the dictator's assessment and plan as written ,documented as a scribe. Based on total visit time, I have performed more than 50% of the visit. Patient Condition at Discharge: Fair Plan - Discharge Summary Discharge Rx Participant: No New Discharge Prescriptions: New INSULIN ASPART (NovoLOG) [NovoLOG (formulary)] 0 unit SQ ACHS each Enoxaparin [Lovenox] 40 mg SQ DAILY each Continue Montelukast [Singulair] 10 mg PO HS Albuterol Inhaler [Ventolin Hfa Inhaler] 2 puff INHALATION RT-Q4H PRN PRN Reason: Shortness Of Breath Megestrol [Megace] 40 mg PO BID #60 tablet hydrOXYzine HCL [Atarax] 25 mg PO QID FLUoxetine HCL [PROzac] 20 mg PO BID Furosemide [Lasix] 40 mg PO DAILY INSULIN ASPART (NovoLOG) [NovoLOG (formulary)] 15 unit SQ AC-TID #10 ml Metoprolol Tartrate [Lopressor] 25 mg PO DAILY Empagliflozin [Jardiance] 10 mg PO DAILY allopurinoL [Zyloprim] 100 mg PO BID Ondansetron [Zofran] 4 mg PO Q12HR PRN PRN Reason: Nausea Atorvastatin [Lipitor] 10 mg PO HS Acetaminophen Tab [Tylenol] 650 mg PO Q6HR PRN tab PRN Reason: Fever And/ Or Pain Hydroxychloroquine Sulfate [Plaquenil] 200 mg PO BID Gabapentin 600 mg PO BID Pantoprazole [Protonix] 40 mg PO BID Insulin Detemir (Levemir) [Levemir] 25 unit SQ BID Discontinued Apixaban [Eliquis] 5 mg PO BID Discharge Medication List Montelukast [Singulair] 10 mg PO HS 01/09/17 [History] Albuterol Inhaler [Ventolin Hfa Inhaler] 2 puff INHALATION RT-Q4H PRN 01/14/17 [History] allopurinoL [Zyloprim] 100 mg PO BID 01/21/22 [History] Atorvastatin [Lipitor] 10 mg PO HS 02/15/22 [History] Ondansetron [Zofran] 4 mg PO Q12HR PRN 02/15/22 [History] Acetaminophen Tab [Tylenol] 650 mg PO Q6HR PRN tab 03/28/22 [Rx] Megestrol [Megace] 40 mg PO BID #60 tablet 04/10/22 [Rx] Hydroxychloroquine Sulfate [Plaquenil] 200 mg PO BID 04/13/22 [History] hydrOXYzine HCL [Atarax] 25 mg PO QID 04/13/22 [History] FLUoxetine HCL [PROzac] 20 mg PO BID 10/27/22 [History] Furosemide [Lasix] 40 mg PO DAILY 10/27/22 [History] Gabapentin 600 mg PO BID 10/27/22 [History] Pantoprazole [Protonix] 40 mg PO BID 10/27/22 [History] INSULIN ASPART (NovoLOG) [NovoLOG (formulary)] 15 unit SQ AC-TID #10 ml 11/01/22 [Rx] Insulin Detemir (Levemir) [Levemir] 25 unit SQ BID 11/06/22 [History] Metoprolol Tartrate [Lopressor] 25 mg PO DAILY 11/06/22 [History] Empagliflozin [Jardiance] 10 mg PO DAILY 11/21/22 [History] Enoxaparin [Lovenox] 40 mg SQ DAILY each 11/22/22 [Rx] INSULIN ASPART (NovoLOG) [NovoLOG (formulary)] 0 unit SQ ACHS each 11/22/22 [Rx] Follow up Appointment(s)/Referral(s): Fela Alicea MD [Primary Care Provider] - 1-2 days Discharge Disposition: OTHER INSTITUTION NOT DEFINED
--- NOTE | 2022-11-22 17:48 | P.CONS ---
History of Present Illness - Reason for Consult Consult date: 11/22/22 vaginal bleeding, anticoagulation Requesting physician: Ashley Kurtz - Chief Complaint pain and vaginal bleeding - History of Present Illness Patient is a 57-year-old female with an extensive health history. We have been consulted for vaginal bleeding and anticoagulation recommendations. Patient presented to the ER with c/o vaginal bleeding,bilateral lower extremity pain, and back pain. Patient reports vaginal bleeding has been intermittent since diagnosis but reports yesterday bleeding became much happier with clotting which causes her to present for further evaluation. She also reports having diffuse abdominal pain but worse on the left side. She denies nausea vomiting fever and chills. Of note patient was admitted last month and was diagnosed with PE and was started on Eliquis. Patient had previously been on Eliquis for DVT but was taken off due to vaginal bleeding at that time. CBC revealed WBC 12.6, hemoglobin 11.2, platelets 399,000. [facility] Oncology history: History of endometrioid well-differentiated FIGO 1 adenocarcinoma (clinically stage I) being treated by Dr. Euceda at [facility]. She was started on Megace 40 mg twice daily for treatment of her endometrial adenocarcinoma as she has been deemed not to be a candidate for surgery due to multiple medical comorbidities. There has been delay in initiating radiation therapy due to multiple admissions over the past 2 months for issues including DVT, UTI and left femur fracture requiring ORIF with IM nail placement. She was discharged on 04/10/2022 on therapeutic Eliquis and Megace 40 mg twice daily. She was evaluated by Dr. Bradford patient was not a candidate for radiation therapy. Patient continues to follow with Dr. Euceda last seen him in September 2022 at which time surgery was planned but her A1C was found to be 12.1. She followed up with endocrinology and at this time her diabetes is trying to be controlled before proceeding with any further surgical intervention. She continues on Megace 40 mg twice daily Review of Systems 10 point ROS is negative except as stated in the HPI Past Medical History Past Medical History: Cancer, COPD, Diabetes Mellitus, Deep Vein Thrombosis (DVT), Hypertension, Renal Disease, Rheumatoid Arthritis (RA), Thyroid Disorder Additional Past Medical History / Comment(s): O2 @ 4L. SLE LUPUS. STAGE 3 KIDNEY DISEASE. Leukemia, GRAVES DZ , kidney stones, gout, Uterine cancer (no surgery, radiation only) History of Any Multi-Drug Resistant Organisms: Other MDRO Past Surgical History: No Surgical Hx Reported Additional Past Surgical History / Comment(s): BILATERAL ARTHROSCOPY KNEES. D & C (MISCARRIAGES). Past Anesthesia/Blood Transfusion Reactions: No Reported Reaction Past Psychological History: Anxiety Smoking Status: Never smoker Past Alcohol Use History: None Reported Past Drug Use History: None Reported - Past Family History Mother Family Medical History: Congestive Heart Failure (CHF), Diabetes Mellitus Father Family Medical History: Congestive Heart Failure (CHF), Dialysis, Hypertension Medications and Allergies Home Medications Medication Instructions Recorded Confirmed Type Montelukast [Singulair] 10 mg PO HS 01/09/17 11/21/22 History Albuterol Inhaler [Ventolin Hfa 2 puff INHALATION RT-Q4H PRN 01/14/17 11/21/22 History Inhaler] allopurinoL [Zyloprim] 100 mg PO BID 01/21/22 11/21/22 History Atorvastatin [Lipitor] 10 mg PO HS 02/15/22 11/21/22 History Ondansetron [Zofran] 4 mg PO Q12HR PRN 02/15/22 11/21/22 History Acetaminophen Tab [Tylenol] 650 mg PO Q6HR PRN tab 03/28/22 11/21/22 Rx Megestrol [Megace] 40 mg PO BID #60 tablet 04/10/22 11/21/22 Rx Hydroxychloroquine Sulfate 200 mg PO BID 04/13/22 11/21/22 History [Plaquenil] hydrOXYzine HCL [Atarax] 25 mg PO QID 04/13/22 11/21/22 History FLUoxetine HCL [PROzac] 20 mg PO BID 10/27/22 11/21/22 History Furosemide [Lasix] 40 mg PO DAILY 10/27/22 11/21/22 History Gabapentin 600 mg PO BID 10/27/22 11/21/22 History Pantoprazole [Protonix] 40 mg PO BID 10/27/22 11/21/22 History INSULIN ASPART (NovoLOG) [NovoLOG 15 unit SQ AC-TID #10 ml 11/01/22 11/21/22 Rx (formulary)] Insulin Detemir (Levemir) [Levemir] 25 unit SQ BID 11/06/22 11/21/22 History Metoprolol Tartrate [Lopressor] 25 mg PO DAILY 11/06/22 11/21/22 History Empagliflozin [Jardiance] 10 mg PO DAILY 11/21/22 11/21/22 History Enoxaparin [Lovenox] 40 mg SQ DAILY each 11/22/22 Rx INSULIN ASPART (NovoLOG) [NovoLOG 0 unit SQ ACHS each 11/22/22 Rx (formulary)] Allergies Allergy/AdvReac Type Severity Reaction Status Date / Time ciprofloxacin [From Cipro] Allergy Swelling Verified 11/21/22 19:06 diphenhydramine Allergy Swelling Verified 11/21/22 19:06 [From Benadryl] Influenza Virus Vaccines Allergy Unknown Verified 11/21/22 19:06 iodine Allergy Swelling Verified 11/21/22 19:06 propoxyphene Allergy Swelling Verified 11/21/22 19:06 [From Darvocet-N] red dye Allergy Swelling Verified 11/21/22 19:06 sulfacetamide Allergy Swelling Verified 11/21/22 19:06 [From Sulfamide] yellow dye Allergy Swelling Verified 11/21/22 19:06 Physical Exam Vitals: Vital Signs Temp Pulse Pulse Resp BP BP Pulse Ox 11/22/22 15:00 97 F L 119 H 20 96/59 99 11/22/22 09:08 98 F 118 H 20 142/71 97 11/22/22 06:44 100 20 144/78 100 11/22/22 01:30 143/81 11/22/22 01:00 107 H 20 158/80 100 11/21/22 19:00 94 20 115/78 11/21/22 18:30 90 131/84 100 Intake and Output 11/22/22 11/22/22 11/22/22 06:59 14:59 22:59 Intake Total 280 Output Total 1300 Balance 280 -1300 Intake: Intake, IV Titration 160 Amount Sodium Chloride 0.9% 1, 160 000 ml @ 20 mls/hr IV . Q24H [facility] Rx#:[id number] Oral 120 Output: Urine 1300 Other: Voiding Method External Catheter # Voids 0 Weight 127.006 kg - Constitutional General appearance: no acute distress, obese - EENT Eyes: anicteric sclerae, EOMI ENT: hearing grossly normal - Respiratory Respiratory: bilateral: CTA - Cardiovascular tachycardia Rhythm: regular Heart sounds: normal: S1, S2 Abnormal Heart Sounds: no systolic murmur, no diastolic murmur, no rub, no S3 Gallop, no S4 Gallop, no click, no other - Gastrointestinal General gastrointestinal: soft, tenderness Localized gastrointestinal: tender: diffuse (left>right ) - Integumentary Integumentary: no cyanotic, no jaundiced - Neurologic grossly intact - Musculoskeletal Musculoskeletal: generalized weakness - Psychiatric Psychiatric: A&O x's 3, appropriate affect, intact judgment & insight Results CBC & Chem 7: 11/22/22 07:47 11/22/22 07:47 Labs: Abnormal Lab Results - Last 24 Hours (Table) 11/21/22 11/21/22 11/22/22 Range/Units 17:28 22:07 07:47 WBC 10.9 H 12.6 H (3.8-10.6) k/uL Hgb 11.2 L (11.4-16.0) gm/dL Neutrophils # 8.2 H (1.3-7.7) k/uL Carbon Dioxide 21 L (22-30) mmol/L BUN 21 H (7-17) mg/dL Creatinine 1.51 H (0.52-1.04) mg/dL Glucose 205 H (74-99) mg/dL POC Glucose (mg/dL) (70-110) mg/dL Alkaline Phosphatase 162 H (38-126) U/L 11/22/22 11/22/22 11/22/22 Range/Units 07:47 09:03 11:43 WBC (3.8-10.6) k/uL Hgb (11.4-16.0) gm/dL Neutrophils # (1.3-7.7) k/uL Carbon Dioxide 20 L (22-30) mmol/L BUN 24 H (7-17) mg/dL Creatinine 1.69 H (0.52-1.04) mg/dL Glucose 269 H (74-99) mg/dL POC Glucose (mg/dL) 318 H 295 H (70-110) mg/dL Alkaline Phosphatase 162 H (38-126) U/L Assessment and Plan (1) Vaginal bleeding Current Visit: Yes Status: Acute Priority: High Code(s): N93.9 - ABNORMAL UTERINE AND VAGINAL BLEEDING, UNSPECIFIED SNOMED Code(s): 220478931 (2) Adenocarcinoma of endometrium, stage 1 Current Visit: Yes Status: Acute Priority: High Code(s): C54.1 - MALIGNANT NEOPLASM OF ENDOMETRIUM SNOMED Code(s): 474471058 Plan: Vaginal bleeding: -Ongoing since diagnosis last year. Has intermittent exacerbations of heavy vaginal bleeding. Pt currently anticoagulated with eliquis for PE last month. She was previously on Eliquis for DVT but was subsequently taken off for heavy vaginal bleeding, so this is not treatment failure. Pt has been on megace which can have adverse side effect of thrombus. Would recommend holding medication for now. Eliquis has been stopped. Will start patient on prophylactic dose lovenox 40mg once daily. Pending CERTIFIED DIABETES EDUCATOR recommendations, will restart patient on eliquis at 2.5mg BID. Christina filter could be an option prior to surgery once cleared by manager of software onc -Hemoglobin stable, 11.2, platelets 399,000. Coags WNL -Plan is for patient to be transferred to [facility] for evaluation by manager of software onc. Endometrial adenocarcinoma: -Hx of endometrioid well-differentiated FIGO [address] Euceda at [facility]. She was started on Megace 40 mg twice daily for treatment of her endometrial adenocarcinoma as she has been deemed not to be a candidate for surgery due to multiple medical comorbidities. -Has been evaluated by rad/onc, not a candidate for RT -Patient continues to follow with Dr. Euceda, last seeing him in September 2022 at which time surgery was planned but her A1C was found to be 12.1. She followed up with endocrinology and at this time her diabetes is trying to be controlled before proceeding with any surgical intervention. She continued on Megace 40 mg twice daily Attests: I have seen and examined pt, performed H&P, developed impression and plan of care. Discussed with dictator. Agree with documentation, dictated as a scribe.
[2022-11-22 17:51] LABS: Glucose,Whole Blood 160 mg/dL (70-110)
[2022-11-22] MEDS: ATORVASTATIN 10 MG TAB PO SCH (20:15)
[2022-11-22] MEDS: HYDROXYCHLOROQUINE SULFATE 200 MG TAB PO SCH (20:15)
[2022-11-22] MEDS: PANTOPRAZOLE 40 MG TABLET PO SCH (20:15)
[2022-11-22] MEDS: MONTELUKAST 10 MG TAB PO SCH (20:15)
[2022-11-22 20:18] LABS: Glucose,Whole Blood 117 mg/dL (70-110)
[2022-11-22] MEDS ORDERED: MEGESTROL 40 MG TAB PO SCH (21:00)
[2022-11-23] MEDS: SODIUM CHLORIDE 0.9% 1,000 ML IV SCH ×2 (00:02→23:19)
[2022-11-23] MEDS: MORPHINE SULFATE 4 MG/ML SYRINGE IV PRN ×3 (06:30→19:55)
[2022-11-23 06:32] LABS: Glucose,Whole Blood 185 mg/dL (70-110)
[2022-11-23] MEDS: INSULIN ASPART (NovoLOG) 100 UNIT/ML VIAL SQ SCH ×7 (06:38→20:54)
[2022-11-23] MEDS: ALBUTEROL NEBULIZED 2.5 MG/3 ML INHALATION PRN ×2 (07:38→11:21)
[2022-11-23] MEDS: INSULIN DETEMIR (LEVEMIR) 100 UNIT/ML SYR SQ SCH ×2 (08:35→20:54)
[2022-11-23] MEDS: METOPROLOL TARTRATE 25 MG TAB PO SCH (08:35)
[2022-11-23] MEDS: DAPAGLIFLOZIN PROPANEDIOL 5 MG TABLET PO SCH (08:35)
[2022-11-23] MEDS: PANTOPRAZOLE 40 MG TABLET PO SCH ×2 (08:35→19:53)
[2022-11-23] MEDS: allopurinoL 100 MG TAB PO SCH ×2 (08:35→19:53)
[2022-11-23] MEDS: hydrOXYzine HCL 25 MG TAB PO SCH ×4 (08:36→19:52)
[2022-11-23] MEDS: FLUoxetine HCL 20 MG CAP PO SCH ×2 (08:36→19:53)
[2022-11-23] MEDS: FUROSEMIDE 40 MG TAB PO SCH (08:36)
[2022-11-23] MEDS: HYDROXYCHLOROQUINE SULFATE 200 MG TAB PO SCH ×2 (08:37→19:53)
[2022-11-23] MEDS: ENOXAPARIN 40 MG/0.4 ML SYRINGE SQ SCH (08:37)
[2022-11-23] MEDS: GABAPENTIN 300 MG CAP PO SCH ×2 (08:43→19:52)
[2022-11-23 09:33] LABS: African American GFR (CKD) 28 (>60 ml/min/1.73 sqM); Anion Gap 15 mmol/L; Blood Urea Nitrogen 40 mg/dL (7-17); Calcium 8.9 mg/dL (8.4-10.2); Carbon Dioxide 24 mmol/L (22-30); Chloride 105 mmol/L (98-107); Glucose 235 mg/dL (74-99); Non-African American GFR(CKD) 24 (>60 ml/min/1.73 sqM); Sodium 144 mmol/L (137-145)
[2022-11-23 09:35] LABS: Basophils # (A) 0.1 k/uL (0-0.2); Basophils % (A) 1 %; Eosinophils # (A) 0.4 k/uL (0-0.7); Eosinophils % (A) 3 %; HCT 34.4 % (34.0-46.0); HGB 11.7 gm/dL (11.4-16.0); Lymphocytes # (A) 3.5 k/uL (1.0-4.8); Lymphocytes % (A) 32 %; MCHC 33.9 g/dL (31.0-37.0); MCV 88.5 fL (80.0-100.0); Mean Platelet Volume 8.1; Monocytes # (A) 0.5 k/uL (0-1.0); Monocytes % (A) 5 %; Neutrophils # (A) 6.5 k/uL (1.3-7.7); Neutrophils % (A) 59 %; Platelet Count 342 k/uL (150-450); RBC 3.89 m/uL (3.80-5.40); RDW 13.9 % (11.5-15.5); WBC 11.1 k/uL (3.8-10.6)
[2022-11-23 11:41] LABS: Glucose,Whole Blood 340 mg/dL (70-110)
--- NOTE | 2022-11-23 13:34 | US ---
EXAMINATION TYPE: US venous doppler duplex LE BI DATE OF EXAM: 11/23/2022 1:07 PM COMPARISON: US 10/28/22 CLINICAL INDICATION: Female, 57 years old with history of dvt; Pain in legs. Hx DVT. SIDE PERFORMED: Bilateral TECHNIQUE: The lower extremity deep venous system is examined utilizing real time linear array sonog rachelle with graded compression, doppler sonography and color-flow sonography. VESSELS IMAGED: Common Femoral Vein Deep Femoral Vein Greater Saphenous Vein * Femoral Vein Popliteal Vein Small Saphenous Vein * Proximal Calf Veins (* superficial vessels) Right Leg: Unable to visualize mid and distal femoral vein in transverse compression views. No evide nce of DVT although limited evaluation of mid and distal femoral vein. Left Leg: No evidence of DVT. IMPRESSION:
--- NOTE | 2022-11-23 13:44 | PN ---
PROGRESS NOTE DATE OF SERVICE: 11/23/2022 SUBJECTIVE: This 57-year-old woman who has endometrial carcinoma, being followed up in the outpatient setting in [facility], who was admitted with vaginal bleeding. We are trying to transfer to [facility] and they accepted the patient after lengthy discussion, but later they refused to transfer the patient. Currently, patient is having GI bleed. The other issue the patient is having the patient has history of pulmonary embolus and possible DVTs. The patient had like a perfusion scan which is highly suggestive of pulmonary embolism. The ultrasound of the legs could not be done completely at that point because of the apparent pain. The patient also had superficial thrombosis of the left upper arm. Dr. Hunter has documented possible IVC filter so that anticoagulation could be withhold to control the vaginal bleeding and Dr. Shaikh has evaluated the patient. PAST MEDICAL HISTORY: Reviewed. REVIEW OF SYSTEMS: Fourteen-point review is negative as mentioned. CURRENT MEDICATIONS: Reviewed. PHYSICAL EXAMINATION: VITAL SIGNS: Pulse is 88, blood pressure is 113/70, respirations 18. CHEST: Clear to auscultation. CARDIOVASCULAR: S1 and S2. ABDOMEN: Soft. NERVOUS SYSTEM: Nonfocal. LABORATORY DATA: Creatinine 2.1. ASSESSMENT: 1. Acute vaginal bleeding from possible endometrial cancer with acute blood loss anemia. 2. Diabetes mellitus, type 2 with hyperglycemia. 3. History of possible pulmonary embolism with a perfusion defect in the V/Q scan. 4. Incomplete ultrasound of the legs previously. 5. History of superficial thrombophlebitis of the right upper arm. 6. Chronic kidney disease, stage 3. 7. History of COPD. 8. History of hypertension. 9. History of rheumatoid arthritis. 10.Multiple medical issues. 11.Chronic hypoxic respiratory failure. RECOMMENDATIONS AND DISCUSSION: I recommend to continue current management and symptomatic treatment. Otherwise, hold the Eliquis and watch for the hemoglobin. Otherwise, I had detailed discussion with Dr. Hunter who strongly recommends IVC filter at this time because of the patient's complicated history and possible hypercoagulable nature. Otherwise, also discussed with Dr. Martin, who also recommended the possible transfer to tertiary care center for further evaluation and treatment. The prognosis guarded. Further recommendations to follow. See orders for details. MMODL / IJN: [id number] /
[2022-11-23] MEDS ORDERED: SODIUM CHLORIDE 0.9% 500 ML 500 ML IV ONE (15:00)
[2022-11-23 16:13] LABS: Basophils # (A) 0.1 k/uL (0-0.2); Basophils % (A) 1 %; Eosinophils # (A) 0.3 k/uL (0-0.7); Eosinophils % (A) 3 %; HCT 32.9 % (34.0-46.0); HGB 10.7 gm/dL (11.4-16.0); Lymphocytes # (A) 2.5 k/uL (1.0-4.8); Lymphocytes % (A) 23 %; MCHC 32.4 g/dL (31.0-37.0); MCV 89.3 fL (80.0-100.0); Mean Platelet Volume 8.4; Monocytes # (A) 0.6 k/uL (0-1.0); Monocytes % (A) 5 %; Neutrophils # (A) 7.3 k/uL (1.3-7.7); Neutrophils % (A) 67 %; Platelet Count 360 k/uL (150-450); RBC 3.68 m/uL (3.80-5.40); WBC 10.9 k/uL (3.8-10.6)
[2022-11-23 17:17] LABS: Glucose,Whole Blood 115 mg/dL (70-110)
[2022-11-23] MEDS: MONTELUKAST 10 MG TAB PO SCH (19:52)
[2022-11-23] MEDS: ATORVASTATIN 10 MG TAB PO SCH (19:53)
[2022-11-23 20:25] LABS: Glucose,Whole Blood 186 mg/dL (70-110)
[2022-11-24 05:04] LABS: Glucose,Whole Blood 151 mg/dL (70-110)
[2022-11-24] MEDS: INSULIN ASPART (NovoLOG) 100 UNIT/ML VIAL SQ SCH ×7 (05:07→21:43)
[2022-11-24] MEDS: MORPHINE SULFATE 4 MG/ML SYRINGE IV PRN ×3 (05:10→18:05)
[2022-11-24] MEDS: ALBUTEROL NEBULIZED 2.5 MG/3 ML INHALATION PRN ×2 (08:21→11:41)
[2022-11-24] MEDS: FUROSEMIDE 40 MG TAB PO SCH (08:50)
[2022-11-24] MEDS: allopurinoL 100 MG TAB PO SCH ×2 (08:50→21:42)
[2022-11-24] MEDS: GABAPENTIN 300 MG CAP PO SCH ×2 (08:50→21:41)
[2022-11-24] MEDS: PANTOPRAZOLE 40 MG TABLET PO SCH ×2 (08:50→21:42)
[2022-11-24] MEDS: METOPROLOL TARTRATE 12.5 MG TAB PO SCH (08:50)
[2022-11-24] MEDS: FLUoxetine HCL 20 MG CAP PO SCH ×2 (08:50→21:42)
[2022-11-24] MEDS: ENOXAPARIN 30 MG/0.3 ML SYRINGE SQ SCH (08:51)
[2022-11-24] MEDS: INSULIN DETEMIR (LEVEMIR) 100 UNIT/ML SYR SQ SCH ×2 (08:51→21:43)
[2022-11-24] MEDS: DAPAGLIFLOZIN PROPANEDIOL 5 MG TABLET PO SCH (08:52)
[2022-11-24] MEDS: hydrOXYzine HCL 25 MG TAB PO SCH ×4 (08:52→21:42)
[2022-11-24] MEDS: HYDROXYCHLOROQUINE SULFATE 200 MG TAB PO SCH ×2 (08:52→21:43)
[2022-11-24 10:36] LABS: Basophils # (A) 0.1 k/uL (0-0.2); Basophils % (A) 1 %; Eosinophils # (A) 0.4 k/uL (0-0.7); Eosinophils % (A) 4 %; HCT 32.8 % (34.0-46.0); HGB 11.2 gm/dL (11.4-16.0); Lymphocytes # (A) 3.6 k/uL (1.0-4.8); Lymphocytes % (A) 31 %; MCH 30.3 pg (25.0-35.0); MCHC 34.2 g/dL (31.0-37.0); MCV 88.5 fL (80.0-100.0); Mean Platelet Volume 8.8; Monocytes # (A) 0.6 k/uL (0-1.0); Monocytes % (A) 5 %; Neutrophils # (A) 6.9 k/uL (1.3-7.7); Neutrophils % (A) 58 %; Platelet Count 294 k/uL (150-450); RBC 3.71 m/uL (3.80-5.40); WBC 11.8 k/uL (3.8-10.6)
[2022-11-24 11:27] LABS: Glucose,Whole Blood 240 mg/dL (70-110)
--- NOTE | 2022-11-24 12:10 | P.GSCN ---
History of Present Illness Consult date: 11/24/22 History of present illness: Tamela is a 57-year-old female with a past medical history of endometrial cancer pending surgical intervention, diabetes, chronic renal disease, hypertension history of pulmonary embolism, respiratory failure who has been maintained on oral anticoagulation however with this has been having issues with significant vaginal bleeding. In the past this has happened which caused her to be discontinued off of her oral anticoagulation. At this point the patient has been recommended to undergo a filter placement however 0 is no evidence of lower extremity DVT on recent ultrasound. Long discussion was had with the patient regarding risks and benefits of intervention versus no intervention. We discussed the possibility of bleeding and infection as well as possible thrombosis of the filter itself versus concerns regarding possible thrombus and pulmonary emboli. The patient is concerned in this regard and would like to have a filter placed. Patient is awaiting evaluation by hematology. Will be available to place filter tomorrow am should it be continued to be recommended. Past Medical History Past Medical History: Cancer, COPD, Diabetes Mellitus, Deep Vein Thrombosis (DVT), Hypertension, Renal Disease, Rheumatoid Arthritis (RA), Thyroid Disorder Additional Past Medical History / Comment(s): O2 @ 4L. SLE LUPUS. STAGE 3 KIDNEY DISEASE. Leukemia, GRAVES DZ , kidney stones, gout, Uterine cancer (no surgery, radiation only) History of Any Multi-Drug Resistant Organisms: Other MDRO Past Surgical History: No Surgical Hx Reported Additional Past Surgical History / Comment(s): BILATERAL ARTHROSCOPY KNEES. D & C (MISCARRIAGES). Past Anesthesia/Blood Transfusion Reactions: No Reported Reaction Past Psychological History: Anxiety Smoking Status: Never smoker Past Alcohol Use History: None Reported Past Drug Use History: None Reported - Past Family History Mother Family Medical History: Congestive Heart Failure (CHF), Diabetes Mellitus Father Family Medical History: Congestive Heart Failure (CHF), Dialysis, Hypertension Medications and Allergies Home Medications Medication Instructions Recorded Confirmed Type Montelukast [Singulair] 10 mg PO HS 01/09/17 11/21/22 History Albuterol Inhaler [Ventolin Hfa 2 puff INHALATION RT-Q4H PRN 01/14/17 11/21/22 History Inhaler] allopurinoL [Zyloprim] 100 mg PO BID 01/21/22 11/21/22 History Atorvastatin [Lipitor] 10 mg PO HS 02/15/22 11/21/22 History Ondansetron [Zofran] 4 mg PO Q12HR PRN 02/15/22 11/21/22 History Acetaminophen Tab [Tylenol] 650 mg PO Q6HR PRN tab 03/28/22 11/21/22 Rx Megestrol [Megace] 40 mg PO BID #60 tablet 04/10/22 11/21/22 Rx Hydroxychloroquine Sulfate 200 mg PO BID 04/13/22 11/21/22 History [Plaquenil] hydrOXYzine HCL [Atarax] 25 mg PO QID 04/13/22 11/21/22 History FLUoxetine HCL [PROzac] 20 mg PO BID 10/27/22 11/21/22 History Furosemide [Lasix] 40 mg PO DAILY 10/27/22 11/21/22 History Gabapentin 600 mg PO BID 10/27/22 11/21/22 History Pantoprazole [Protonix] 40 mg PO BID 10/27/22 11/21/22 History INSULIN ASPART (NovoLOG) [NovoLOG 15 unit SQ AC-TID #10 ml 11/01/22 11/21/22 Rx (formulary)] Insulin Detemir (Levemir) [Levemir] 25 unit SQ BID 11/06/22 11/21/22 History Metoprolol Tartrate [Lopressor] 25 mg PO DAILY 11/06/22 11/21/22 History Empagliflozin [Jardiance] 10 mg PO DAILY 11/21/22 11/21/22 History Enoxaparin [Lovenox] 40 mg SQ DAILY each 11/22/22 Rx INSULIN ASPART (NovoLOG) [NovoLOG 0 unit SQ ACHS each 11/22/22 Rx (formulary)] Allergies Allergy/AdvReac Type Severity Reaction Status Date / Time ciprofloxacin [From Cipro] Allergy Swelling Verified 11/21/22 19:06 diphenhydramine Allergy Swelling Verified 11/21/22 19:06 [From Benadryl] Influenza Virus Vaccines Allergy Unknown Verified 11/21/22 19:06 iodine Allergy Swelling Verified 11/21/22 19:06 propoxyphene Allergy Swelling Verified 11/21/22 19:06 [From Darvocet-N] red dye Allergy Swelling Verified 11/21/22 19:06 sulfacetamide Allergy Swelling Verified 11/21/22 19:06 [From Sulfamide] yellow dye Allergy Swelling Verified 11/21/22 19:06 Surgical - Exam Vital Signs Temp Pulse Resp BP Pulse Ox 98.7 F 99 19 131/84 100 11/21/22 15:01 11/21/22 15:01 11/21/22 15:01 11/21/22 15:01 11/21/22 15:01 Results - Labs 11/24/22 09:03 11/23/22 08:55 Abnormal Lab Results - Last 24 Hours (Table) 11/23/22 11/23/22 11/23/22 Range/Units 15:06 17:14 20:23 WBC 10.9 H (3.8-10.6) k/uL RBC 3.68 L (3.80-5.40) m/uL Hgb 10.7 L (11.4-16.0) gm/dL Hct 32.9 L (34.0-46.0) % POC Glucose (mg/dL) 115 H 186 H (70-110) mg/dL 11/24/22 11/24/22 11/24/22 Range/Units 05:01 09:03 11:25 WBC 11.8 H (3.8-10.6) k/uL RBC 3.71 L (3.80-5.40) m/uL Hgb 11.2 L (11.4-16.0) gm/dL Hct 32.8 L (34.0-46.0) % POC Glucose (mg/dL) 151 H 240 H (70-110) mg/dL
[2022-11-24 15:31] LABS: African American GFR (CKD) 23 (>60 ml/min/1.73 sqM); Anion Gap 14 mmol/L; Blood Urea Nitrogen 52 mg/dL (7-17); Calcium 9.1 mg/dL (8.4-10.2); Carbon Dioxide 20 mmol/L (22-30); Chloride 108 mmol/L (98-107); Glucose 266 mg/dL (74-99); Non-African American GFR(CKD) 20 (>60 ml/min/1.73 sqM); Potassium 4.5 mmol/L (3.5-5.1); Sodium 142 mmol/L (137-145)
[2022-11-24 17:54] LABS: Glucose,Whole Blood 202 mg/dL (70-110)
[2022-11-24 20:56] LABS: Glucose,Whole Blood 201 mg/dL (70-110)
[2022-11-24] MEDS: MONTELUKAST 10 MG TAB PO SCH (21:41)
[2022-11-24] MEDS: ATORVASTATIN 10 MG TAB PO SCH (21:42)
--- NOTE | 2022-11-24 23:19 | PN ---
PROGRESS NOTE DATE OF SERVICE: 11/24/2022 SUBJECTIVE: This is a 57-year-old woman, who was admitted with GI bleed, history of apparent suspected endometrial carcinoma. The patient was evaluated by [facility]. No surgery was done because of the recurrent bleeding, the patient had been admitted. Dr. Devlin is following the patient closely for possible filter placement tomorrow. PAST MEDICAL HISTORY: Reviewed. REVIEW OF SYSTEMS: A 14-point review is negative except as mentioned earlier. PHYSICAL EXAMINATION: VITAL SIGNS: Pulse is 110, blood pressure 130/50, respirations 20. HEENT: Conjunctivae normal. NECK: No JVD. CARDIOVASCULAR: S1, S2. RESPIRATIONS: Breath sounds diminished at the bases. ABDOMEN: Soft, obese. LEGS: No edema. NERVOUS SYSTEM: Nonfocal. LABORATORY DATA: Reviewed. ASSESSMENT: 1. Acute vaginal bleeding with possible endometrial cancer with acute blood loss anemia. 2. Diabetes mellitus, type 2 with hyperglycemia. 3. History of possible pulmonary embolism with perfusion defect and V/Q scan previously. 4. Incomplete ultrasound of the legs previously. 5. History of a superficial thrombophlebitis of the right upper arm previously. 6. History of chronic kidney disease, stage III. 7. History of chronic obstructive pulmonary disease. 8. Hypertension. 9. History of rheumatoid arthritis. 10.Multiple medical issues. 11.Chronic hypoxic respiratory failure. RECOMMENDATIONS AND DISCUSSION: I recommend to continue current management and continue symptomatic treatment. Otherwise, monitor CBC and BMP closely. Monitor blood sugars closely, which appears to be improving at this time. I recommend continue with insulin and monitor closely. Repeat labs in the morning. Otherwise, I would also will talk the case with Dr. Barker from [facility] for possible outpatient followup and treatment. Thank you, Dr. Barker, cellphone number is [phone]. MMODL / IJN: [id number] /
[2022-11-25] MEDS: SODIUM CHLORIDE 0.9% 1,000 ML IV SCH (01:22)
[2022-11-25 06:06] LABS: Glucose,Whole Blood 202 mg/dL (70-110)
[2022-11-25] MEDS: MORPHINE SULFATE 4 MG/ML SYRINGE IV PRN ×3 (06:18→18:24)
[2022-11-25] MEDS: INSULIN ASPART (NovoLOG) 100 UNIT/ML VIAL SQ SCH ×7 (06:18→21:00)
[2022-11-25] MEDS: INSULIN DETEMIR (LEVEMIR) 100 UNIT/ML SYR SQ SCH ×2 (07:24→21:00)
[2022-11-25] MEDS: ENOXAPARIN 30 MG/0.3 ML SYRINGE SQ SCH (08:08)
[2022-11-25 08:21] LABS: Basophils # (A) 0.08 X 10*3/uL (0.00-0.10); Basophils % (A) 0.6 %; Eosinophils # (A) 0.46 X 10*3/uL (0.04-0.35); Eosinophils % (A) 3.7 %; HCT 32.3 % (37.2-46.3); HGB 10.1 d/dL (12.0-15.0); Lymphocytes # (A) 1.32 X 10*3/uL (0.90-5.00); Lymphocytes % (A) 10.5 %; MCH 28.1 pg (27.0-32.0); MCHC 31.3 d/dL (32.0-37.0); Mean Platelet Volume 10.6 FL (9.5-12.2); Monocytes # (A) 0.76 X 10*3/uL (0.20-1.00); Monocytes % (A) 6.1 %; NRBC Per 100 WBC 0 X 10*3/uL (0.00-0.01); Neutrophils # (A) 9.86 X 10*3/uL (1.80-7.70); Neutrophils % (A) 78.5 %; Platelet Count 356 X 10*3/uL (140-440); RBC 3.59 X 10*6/uL (4.10-5.20); RDW 13.3 % (11.5-14.5); WBC 12.56 X 10*3/uL (4.50-10.00)
[2022-11-25 08:39] LABS: BUN/Creat Ratio 20.46 Ratio (12.00-20.00); Blood Urea Nitrogen 49.1 mg/dL (9.0-27.0); Calcium 9.4 mg/dL (8.7-10.3); Carbon Dioxide 21.3 mmol/L (21.6-31.8); Chloride 107 mmol/L (96-109); Glucose 190 mg/dL (70-110); Potassium 5.2 mmol/L (3.5-5.5); Sodium 143 mmol/L (135-145)
[2022-11-25] MEDS: GABAPENTIN 300 MG CAP PO SCH ×2 (09:20→20:16)
[2022-11-25] MEDS: FLUoxetine HCL 20 MG CAP PO SCH ×2 (09:21→20:16)
[2022-11-25] MEDS: METOPROLOL TARTRATE 12.5 MG TAB PO SCH (09:21)
[2022-11-25] MEDS: hydrOXYzine HCL 25 MG TAB PO SCH ×4 (09:21→20:16)
[2022-11-25] MEDS: PANTOPRAZOLE 40 MG TABLET PO SCH ×2 (09:21→20:16)
[2022-11-25] MEDS: allopurinoL 100 MG TAB PO SCH ×2 (09:21→20:16)
[2022-11-25] MEDS: HYDROXYCHLOROQUINE SULFATE 200 MG TAB PO SCH ×2 (09:21→20:16)
[2022-11-25] MEDS: FUROSEMIDE 40 MG TAB PO SCH (09:21)
[2022-11-25] MEDS ORDERED: SODIUM CHLORIDE 0.9% 250 ML IV ONE (10:09)
[2022-11-25] MEDS ORDERED: LIDOCAINE 1% INJ 10MG/ML (20 ML MDV) SQ ONE (11:21)
[2022-11-25] MEDS ORDERED: IOPAMIDOL-370 100ML BTL INJ ONE ×2 (11:28)
--- NOTE | 2022-11-25 11:58 | P.OP ---
Date of Procedure: 11/25/22 Preoperative Diagnosis: History of deep venous thrombosis with relative contraindication to anticoagulation. 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 Procedure(s) Performed: 1: Ultrasound-guided cannulation right common femoral vein. 2: Right iliac and inferior venacavogram. 3: Placement of IVC filter. Anesthesia: local Surgeon: Femi Marks Estimated Blood Loss (ml): 10 Pathology: none sent Condition: stable Disposition: no change Indications for Procedure: Patient is a 57-year-old female with a history of endometrial carcinoma and deep venous thrombosis. She was on anticoagulation therapy for her deep venous thrombosis however will require major abdominal pelvic surgery in reference to a history of her endometrial cancer. Additionally the patient has been experiencing some hematochezia. Patient is thus offered an IVC filter. The procedure, risk and benefits were discussed with the patient. Patient wished to proceed. Consent form was signed. Operative Findings: Please see operative report. Description of Procedure: Patient was brought to the cardiac [facility] [employer]. Both groins were sterilely prepped and draped in usual manner. Ultrasound was utilized to identify the right common femoral vein which was normally compressible and free of visible thrombus. 1% Xylocaine was utilized for local anesthesia of the tissues overlying this venous segment. Through this anesthetized area with the aid of ultrasound a multipurpose needle was utilized to cannulate the vein. Once cannulated Softip guidewire is advanced. The needle was withdrawn and a 5- Turkish sheath was placed. Right iliac and inferior venacavogram was subsequently performed. The right iliac vein showed no evidence of venous thrombosis. The very distal portion of the IVC was normally patent and at approximately the L3 level of the cava was noted to be occluded with very large collaterals consistent with long-term IVC occlusion. The cava reconstituted above the renal veins. The collaterals were felt large enough to allow for passage of potential lower extremity thrombus into the pulmonary system and as such was felt appropriate to place an IVC filter. The 5-Turkish sheath was exchanged over guidewire for the filter sheath and dilator. Once properly position the guidewire and dilator were withdrawn and through the sheath a Cook Celect filter was deployed in the lower portion of the IVC just above the confluence of the 2 iliac veins. The sheath was withdrawn and pressure was held at the puncture site until all evidence of bleeding ceased. Total fluoroscopy time 1.8 minutes. Total contrast volume: 40 ML's of Isovue.
--- NOTE | 2022-11-25 12:09 | IR ---
EXAMINATION TYPE: IR IVC filter placement DATE OF EXAM: 11/25/2022 COMPARISON: NONE HISTORY: Fluoroscopy time. Fluoroscopy was provided to the referring clinician.
[2022-11-25 12:18] LABS: Glucose,Whole Blood 194 mg/dL (70-110)
[2022-11-25] MEDS: DAPAGLIFLOZIN PROPANEDIOL 5 MG TABLET PO SCH (12:51)
--- NOTE | 2022-11-25 14:51 | P.PN ---
Subjective Progress Note Date: 11/25/22 This is a 57-year-old female who was recently admitted vaginal bleeding with history of endometrial carcinoma and follows with [facility] outpatient. Patient has been seen and evaluated by Dr. Euceda gynecology oncology undergoing presurgical clearance although has not been approved for surgical intervention by endocrine as her diabetes is extremely uncontrolled and her hemoglobin A1c is above 12. Patient is noncompliant with medications and follow-up and continues to have multiple hospitalizations regarding this. Patient was maintained on anticoagulation for DVT and suspected PEs and has been off and on eliquis and Xarelto with hematology/oncology Dr. Martin following. Attempted to transfer the patient to [facility] for tertiary treatment although was denied as patient is considered stable and vaginal bleeding is marginal and hemoglobin remained stable. Vascular surgery was placed on consult and patient is scheduled to undergo IVC filter placement today. Patient also following with cardiology and nephrology outpatient in regards to her surgical clearance as well. Review of systems: Constitutional: No reports of fatigue, fever, or chills Cardiovascular: No reports of chest pain or palpitations Respiratory: No reports of shortness of breath or cough GI: No reports of nausea, no reports of vomiting, no diarrhea : No reports of dysuria or retention Neurovascular: reports of generalized weakness All medications have been reviewed PHYSICAL EXAMINATION: GENERAL: The patient is alert and oriented x4, Well developed, well nourished. Morbidly obese HEENT: Pupils are round and equally reacting to light. EOMI. no scleral icterus. No conjunctival pallor. Normocephalic, atraumatic. No pharyngeal erythema. No thyromegaly. CARDIOVASCULAR: S1 and S2 muffled PULMONARY: diminished breath sounds bilaterally with some scattered rhonchi noted. ABDOMEN: soft. tender on exam. obese. non-distended, normoactive bowel sounds. No palpable organomegaly. MUSCULOSKELETAL: No joint swelling or deformity. EXTREMITIES: No cyanosis, clubbing, or pedal edema. Chronic upper and lower extremity edema nonpitting NEUROLOGICAL: Gross neurological examination did not reveal any focal deficits. Diffuse weakness SKIN: No rashes. Assessment: Vaginal bleeding, secondary to endometrial cancer with acute blood loss anemia Diabetes mellitus, type II, insulin-dependent uncontrolled with hyperglycemia Leukocytosis with Acute fever, no overt signs of infection will obtain uri nalysis and chest x-ray, possibly secondary to atelectasis Chronic kidney disease stage III History of COPD, not in exacerbation Chronic hypoxic respiratory failure secondary to COPD wears 4 L outpatient History of deep vein thrombosis and PE, was maintained on anticoagulation, status post IVC filter placement 11/25/2022 Hypertension history History of rheumatoid arthritis History of lupus History of leukemia History of anxiety Morbid obesity with a BMI of 45.2 GI prophylaxis DVT prophylaxis Full code Plan: Patient is scheduled to undergo IVC filter placement with vascular surgery today Patient follow-up with Dr. Barker out of [facility] gynecology oncology for further evaluation and possible surgical intervention Patient needs tight glycemic control and this was stressed again and patient will continue on insulins on discharge Patient developed a low-grade temp of 100, possibly atelectasis is patient has been laying in the bed the entire admission, encouraged increase activity as tolerated will add incentive spirometer and obtain chest x-ray and urinalysis Encouraged increase activity as tolerated Will obtain repeat labs in the a.m. with possible discharge planning in the next 24 hours The impression and plan of care has been dictated by Fabienne Fortune, nurse practitioner as directed. Dr. David MD I have performed a history and examination and MDM of this patient, discussed the same with the dictator, and agree with the dictator's assessment and plan as written ,documented as a scribe. Based on total visit time, I have performed more than 50% of the visit. Any additional findings or plans will be noted. Objective - Vital Signs Vital signs: Vital Signs Temp 99 F 11/25/22 07:35 Pulse 86 11/25/22 02:10 Resp 20 11/25/22 07:35 BP 125/74 11/25/22 07:35 Pulse Ox 96 11/25/22 07:35 FiO2 Intake & Output 11/24/22 11/25/22 11/25/22 18:59 06:59 18:59 Intake Total 118 118 Output Total 350 500 Balance -232 -382 Intake: Oral 118 118 Output: Urine 350 500 Other: Voiding Method Diaper Diaper Incontinent Incontinent External Catheter External Catheter - Labs CBC & Chem 7: 11/25/22 05:48 11/25/22 05:48 Labs: Abnormal Lab Results - Last 24 Hours (Table) 11/24/22 11/24/22 11/24/22 Range/Units 09:03 11:25 14:34 WBC 11.8 H (3.8-10.6) k/uL RBC 3.71 L (3.80-5.40) m/uL Hgb 11.2 L (11.4-16.0) gm/dL Hct 32.8 L (34.0-46.0) % MCHC (32.0-37.0) d/dL Neutrophils # (1.80-7.70) X 10*3/uL Eosinophils # (0.04-0.35) X 10*3/uL Chloride 108 H (98-107) mmol/L Carbon Dioxide 20 L (22-30) mmol/L Anion Gap (4.00-12.00) mmol/L BUN 52 H (7-17) mg/dL Creatinine 2.63 H (0.52-1.04) mg/dL Est GFR (CKD-EPI) (>=60) BUN/Creatinine Ratio (12.00-20.00) Ratio Glucose 266 H (74-99) mg/dL POC Glucose (mg/dL) 240 H (70-110) mg/dL 11/24/22 11/24/22 11/25/22 Range/Units 17:52 20:55 05:48 WBC 12.56 H (3.8-10.6) k/uL RBC 3.59 L (3.80-5.40) m/uL Hgb 10.1 L (11.4-16.0) gm/dL Hct 32.3 L (34.0-46.0) % MCHC 31.3 L (32.0-37.0) d/dL Neutrophils # 9.86 H (1.80-7.70) X 10*3/uL Eosinophils # 0.46 H (0.04-0.35) X 10*3/uL Chloride (98-107) mmol/L Carbon Dioxide (22-30) mmol/L Anion Gap (4.00-12.00) mmol/L BUN (7-17) mg/dL Creatinine (0.52-1.04) mg/dL Est GFR (CKD-EPI) (>=60) BUN/Creatinine Ratio (12.00-20.00) Ratio Glucose (74-99) mg/dL POC Glucose (mg/dL) 202 H 201 H (70-110) mg/dL 11/25/22 11/25/22 Range/Units 05:48 06:04 WBC (3.8-10.6) k/uL RBC (3.80-5.40) m/uL Hgb (11.4-16.0) gm/dL Hct (34.0-46.0) % MCHC (32.0-37.0) d/dL Neutrophils # (1.80-7.70) X 10*3/uL Eosinophils # (0.04-0.35) X 10*3/uL Chloride (98-107) mmol/L Carbon Dioxide 21.3 L (22-30) mmol/L Anion Gap 14.70 H (4.00-12.00) mmol/L BUN 49.1 H (7-17) mg/dL Creatinine 2.4 H (0.52-1.04) mg/dL Est GFR (CKD-EPI) 23 L (>=60) BUN/Creatinine Ratio 20.46 H (12.00-20.00) Ratio Glucose 190 H (74-99) mg/dL POC Glucose (mg/dL) 202 H (70-110) mg/dL
--- NOTE | 2022-11-25 15:01 | XR ---
EXAMINATION TYPE: XR chest 1V portable DATE OF EXAM: 11/25/2022 COMPARISON: 11/02/2022 HISTORY: Shortness of breath TECHNIQUE: Single frontal view of the chest is obtained. FINDINGS: Heart is enlarged but no overt failure or pleural effusion. No pneumothorax. There is subs egmental consolidation along the right heart border likely related to reduced inspiration atelectasis in association with eventration the right hemidiaphragm. Osseous structures stable. Lucency centrall y in the abdomen is nonspecific. IMPRESSION: 1. Ill definition right heart border felt to be most likely related to atelectasis secondary to reduc ed inspiration. Correlate clinically. 2. Recommendation for dedicated abdominal series with decubitus view to assess for lucency within the central abdomen. A [place] level critical message alert has been initiated for Isabela Shelley MD via the [facility] [facility] Critical Results System on 11/25/2022 2:58 PM. This message alert has been sent to Isabela Shelley MD via the preferences provided by the clinician for the receipt of Radiology Critical Findings. Message ID [id number].
--- NOTE | 2022-11-25 15:04 | CDI ---
Documentation Clarification Form Date: 11/25/2022 02:45:04 PM From: Bettina Damico RN CCDS Phone: [phone] Admit Date: 11/21/2022 11:24:00 PM Patient Name: Tamela Diaz Visit Number: [id number] Discharge Date: ATTENTION: The Clinical Documentation Specialists (CDI) and [facility] Coding Staff appreciate your assistance in clarifying documentation. Please respond to the clarification below the line at the bottom and electronically sign. The CDI & [facility] Coding staff will review the response and follow-up if needed. Please note: Queries are made part of the Legal Health Record. If you have any questions, please contact the author of this message via ITS. Dr. Shankar Hernandez, There is documentation of Pulmonary Embolism, 11/22, H&P. Additional clarification is requested. History/Risk Factors: 57-year-old female presents to the ED with vaginal bleeding, abdominal pain, back pain, arm pain, leg pain and weakness. 11/21. ED Note. Clinical Indicators: 11/22, Pulmonary note: She had a most recent VQ scan last admission 10/28/2022 that revealed a left upper lobe posterior perfusion defect consistent with pulmonary embolism. Treatment:11/21 Heparin SQ 5,000 units Q12HR, [place] filter Can you please clarify Pulmonary Embolism? [ ] Sub acute Pulmonary Embolism [ ] Chronic Pulmonary Embolism [ ] History of Pulmonary Embolism [ ] Other, please specify [ ] Unable to determine 11/28 Medicine note documented by Dr. Hernandez and Lashay Fortune NP History of deep vein thrombosis and PE, was maintained on anticoagulation, status post IVC filter placement 11/25/2022 (Template Last Revised: June 2020) MTDD
--- NOTE | 2022-11-25 15:15 | P.EN ---
Patient will require hospital bed on discharge to be able to manage her chronic pain secondary to endometrial cancer and requires frequent position changes that is not feasible with an ordinary hospital bed
[2022-11-25] MEDS: IPRATROPIUM-ALBUTEROL 3 ML NEB INHALATION SCH ×2 (15:33→19:57)
--- NOTE | 2022-11-25 15:50 | XR ---
EXAMINATION TYPE: XR abdomen complete w decub DATE OF EXAM: 11/25/2022 COMPARISON: NONE HISTORY: TECHNIQUE: Supine, upright, and left side down lateral decubitus views of the abdomen are obtained. IMPRESSION: Evaluation is markedly limited secondary to poor penetration and body habitus. There does appear to be some dilated loops of bowel in the upper abdomen as well as within the left a bdomen which could potentially represent obstruction. CT would also further assess. Assessment for calcifications is nondiagnostic.
[2022-11-25 17:45] LABS: Glucose,Whole Blood 207 mg/dL (70-110)
[2022-11-25] MEDS: MONTELUKAST 10 MG TAB PO SCH (20:16)
[2022-11-25] MEDS: ATORVASTATIN 10 MG TAB PO SCH (20:16)
[2022-11-25 20:56] LABS: Glucose,Whole Blood 185 mg/dL (70-110)
[2022-11-26] MEDS: IPRATROPIUM-ALBUTEROL 3 ML NEB INHALATION SCH ×7 (00:09→23:23)
[2022-11-26] MEDS: SODIUM CHLORIDE 0.9% 1,000 ML IV SCH (00:17)
[2022-11-26] MEDS: MORPHINE SULFATE 4 MG/ML SYRINGE IV PRN ×4 (00:57→21:31)
[2022-11-26 02:11] LABS: Appearance,Urine Cloudy (Clear); Bacteria,Urine Many /hpf; Bilirubin,Urine Negative (Negative); Blood,Urine Moderate (Negative); Budding Yeast,Urine Many /hpf; Color,Urine Light Yellow; Glucose,Urine (UA) 3+ (Negative); Ketones,Urine Negative (Negative); Leukocyte Esterase,Urine Large (Negative); Nitrite,Urine Negative (Negative); Protein,Urine Trace (Negative); RBC,Urine 38 /hpf (0-5); Squamous Epithelial Cell,Urine <1 /hpf (0-4); Urobilinogen,Urine <2.0 mg/dL (<2.0); WBC,Urine 86 /hpf (0-5)
[2022-11-26 06:23] LABS: Glucose,Whole Blood 156 mg/dL (70-110)
[2022-11-26] MEDS: INSULIN ASPART (NovoLOG) 100 UNIT/ML VIAL SQ SCH ×7 (06:33→21:30)
[2022-11-26 09:14] LABS: Basophils # (A) 0.06 X 10*3/uL (0.00-0.10); Basophils % (A) 0.7 %; Eosinophils # (A) 0.26 X 10*3/uL (0.04-0.35); HCT 28.8 % (37.2-46.3); HGB 9.2 d/dL (12.0-15.0); Lymphocytes # (A) 2.02 X 10*3/uL (0.90-5.00); Lymphocytes % (A) 23.1 %; MCH 28.4 pg (27.0-32.0); MCHC 31.9 d/dL (32.0-37.0); MCV 88.9 FL (80.0-97.0); Mean Platelet Volume 10.7 FL (9.5-12.2); Monocytes # (A) 0.91 X 10*3/uL (0.20-1.00); Monocytes % (A) 10.4 %; NRBC Per 100 WBC 0 X 10*3/uL (0.00-0.01); Neutrophils # (A) 5.39 X 10*3/uL (1.80-7.70); Neutrophils % (A) 61.5 %; Platelet Count 324 X 10*3/uL (140-440); RBC 3.24 X 10*6/uL (4.10-5.20); RDW 13.5 % (11.5-14.5); WBC 8.75 X 10*3/uL (4.50-10.00)
[2022-11-26] MEDS: INSULIN DETEMIR (LEVEMIR) 100 UNIT/ML SYR SQ SCH ×2 (09:28→21:29)
[2022-11-26] MEDS: ENOXAPARIN 30 MG/0.3 ML SYRINGE SQ SCH (09:28)
[2022-11-26] MEDS: FLUoxetine HCL 20 MG CAP PO SCH ×2 (09:29→21:48)
[2022-11-26] MEDS: FUROSEMIDE 40 MG TAB PO SCH (09:29)
[2022-11-26] MEDS: HYDROXYCHLOROQUINE SULFATE 200 MG TAB PO SCH ×2 (09:29→21:31)
[2022-11-26] MEDS: hydrOXYzine HCL 25 MG TAB PO SCH ×4 (09:29→21:30)
[2022-11-26] MEDS: PANTOPRAZOLE 40 MG TABLET PO SCH ×2 (09:29→21:30)
[2022-11-26] MEDS: GABAPENTIN 300 MG CAP PO SCH ×2 (09:29→21:30)
[2022-11-26] MEDS: allopurinoL 100 MG TAB PO SCH ×2 (09:30→21:30)
[2022-11-26] MEDS: DAPAGLIFLOZIN PROPANEDIOL 5 MG TABLET PO SCH (09:30)
[2022-11-26] MEDS: METOPROLOL TARTRATE 12.5 MG TAB PO SCH (09:30)
[2022-11-26 11:47] LABS: Glucose,Whole Blood 250 mg/dL (70-110)
--- NOTE | 2022-11-26 11:56 | P.PN ---
Subjective Progress Note Date: 11/26/22 Patient seen and examined today as follow-up. Yesterday she underwent IVC filter placement via right groin. Denies any pain at the access site or bleeding. No acute changes through the night. Objective - Vital Signs Vital signs: Vital Signs Temp 98.1 F 11/26/22 07:10 Pulse 104 H 11/26/22 07:10 Resp 17 11/26/22 07:10 BP 126/76 11/26/22 07:10 Pulse Ox 100 11/26/22 07:10 FiO2 Intake & Output 11/25/22 11/26/22 11/26/22 18:59 06:59 18:59 Intake Total 250 Output Total 150 1400 Balance 100 -1400 Intake: IV 10 Oral 240 Output: Urine 150 1400 Other: Voiding Method Diaper Diaper Incontinent Incontinent External Catheter External Catheter # Voids 1 # Bowel Movements 0 - Exam General appearance: The patient is alert, oriented, appears in no acute distress. Morbidly obese. HET: Head is normocephalic and atraumatic. Pupils are equal and reactive. Neck: Supple. Abdomen: Soft, nontender, nondistended. Extremities: Normal skin color and turgor. Right groin with dressing in place, no hematoma noted, no active bleeding. Neurological: No focal alert and oriented. - Labs CBC & Chem 7: 11/26/22 06:00 11/25/22 05:48 Labs: Abnormal Lab Results - Last 24 Hours (Table) 11/25/22 11/25/22 11/25/22 Range/Units 12:15 17:40 20:54 POC Glucose (mg/dL) 194 H 207 H 185 H (70-110) mg/dL Urine Appearance (Clear) Urine Protein (Negative) Urine Glucose (UA) (Negative) Urine Blood (Negative) Ur Leukocyte Esterase (Negative) Urine RBC (0-5) /hpf Urine WBC (0-5) /hpf Urine Bacteria (None) /hpf Urine Yeast (Budding) (None) /hpf 11/26/22 11/26/22 Range/Units 01:40 06:21 POC Glucose (mg/dL) 156 H (70-110) mg/dL Urine Appearance Cloudy H (Clear) Urine Protein Trace H (Negative) Urine Glucose (UA) 3+ H (Negative) Urine Blood Moderate H (Negative) Ur Leukocyte Esterase Large H (Negative) Urine RBC 38 H (0-5) /hpf Urine WBC 86 H (0-5) /hpf Urine Bacteria Many H (None) /hpf Urine Yeast (Budding) Many H (None) /hpf Assessment and Plan Assessment: 1. History of deep vein thrombosis with relative contraindication to anticoagulation status post IVC filter placement 2. 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 Morbid obesity Plan: No further vascular surgical intervention indicated. Continue with current medical management. Thank you for this consultation, we will sign off at this time. The impression and plan of care has been dictated as directed. Dr. Aquino I performed a history and examination of this patient, discussed the same with the dictator. I agree with the dictator's note ,documented as a scribe. Any additional findings or plans will be noted.
--- NOTE | 2022-11-26 12:04 | CT ---
EXAMINATION TYPE: CT abdomen pelvis wo con CT DLP: 1578.3 mGycm, Automated exposure control for dose reduction was used. DATE OF EXAM: 11/26/2022 11:39 AM COMPARISON: CT abdomen pelvis most recent from 05/10/2022 CLINICAL INDICATION:Female, 57 years old with history of abdominal pain; abdominal pain TECHNIQUE: Axial CT of the abdomen and pelvis. Sagittal and coronal reformats were created on a [facility] workstation. Contrast used: mL of , (none if empty) Oral contrast used: without Oral Contrast (none if empty) FINDINGS: LOWER CHEST: Unremarkable ABDOMEN Portions of the abdomen are non the [id number] on the left. LIVER: Unremarkable GALLBLADDER AND BILE DUCTS: Layering increased densities within the lumen consistent with gallstones are present. PANCREAS: Unremarkable. SPLEEN: Unremarkable. ADRENAL GLANDS: Unremarkable. KIDNEYS AND URETERS: No evidence of hydronephrosis or renal calculus. The ureters are unremarkable. PELVIS BLADDER: Distended without gross abnormality. REPRODUCTIVE: Enlarged uterus with IUD present. ABDOMEN & PELVIS STOMACH AND BOWEL: No evidence of bowel obstruction. PERITONEUM/RETROPERITONEUM: No evidence of pneumoperitoneum or free fluid. VASCULATURE: No evidence of aortic aneurysm. IVC filter in place. MUSCULOSKELETAL: No acute osseous abnormalities, postsurgical changes to the left hip with hardware i ntact. LYMPH NODES: No gross evidence for lymphadenopathy. SOFT TISSUE/ABDOMINAL WALL: Unremarkable IMPRESSION: 1. No evidence for acute abdominal process. 2. Enlarged fibroid uterus with IUD in place. 3. Left hip fixation hardware appears intact. 4. Cholelithiasis.
[2022-11-26 12:24] LABS: BUN/Creat Ratio 22.22 Ratio (12.00-20.00); Blood Urea Nitrogen 51.1 mg/dL (9.0-27.0); Calcium 9.1 mg/dL (8.7-10.3); Chloride 106 mmol/L (96-109); Glucose 145 mg/dL (70-110); Magnesium 1.8 mg/dL (1.5-2.4); Potassium 4.3 mmol/L (3.5-5.5); Sodium 141 mmol/L (135-145)
[2022-11-26] MEDS ORDERED: NA PHOS,M-B/NA PHOS,DI-BA 133 ML ENEMA RECTAL ONE (13:25)
--- NOTE | 2022-11-26 14:28 | P.PN ---
Subjective Progress Note Date: 11/26/22 This is a 57-year-old female who was recently admitted vaginal bleeding with history of endometrial carcinoma and follows with [facility] outpatient. Patient has been seen and evaluated by Dr. Euceda gynecology oncology undergoing presurgical clearance although has not been approved for surgical intervention by endocrine as her diabetes is extremely uncontrolled and her hemoglobin A1c is above 12. Patient is noncompliant with medications and follow-up and continues to have multiple hospitalizations regarding this. Patient was maintained on anticoagulation for DVT and suspected PEs and has been off and on eliquis and Xarelto with hematology/oncology Dr. Martin following. Attempted to transfer the patient to [facility] for tertiary treatment although was denied as patient is considered stable and vaginal bleeding is marginal and hemoglobin remained stable. Vascular surgery was placed on consult and patient is scheduled to undergo IVC filter placement today. Patient also following with cardiology and nephrology outpatient in regards to her surgical clearance as well. 11/26/2022 Patient is seen and evaluated in follow-up this morning and has been having low- grade temps reporting pain and burning with urination and urinalysis was obtained and will send for culture. Will initiate ceftriaxone. Chest x-ray ordered and showed findings of most likely atelectasis and a concern for a lucency within the central abdomen recommending abdominal series. Abdomen x-ray was ordered showing limited due to body habitus but reporting some dilated loops of bowel in the upper abdomen within left abdomen which could represent obstruction and recommending CT abdomen. CT abdomen is ordered and pending. Patient reports she continues to have pain and burning with urination and also reports has not had a bowel movement in 4 days. Patient was given a dose of ceftriaxone and will send for urine culture and also consult infectious disease and appreciate input and recommendations as patient has had previous urinary tract infections with resistance. Review of systems: Constitutional: No reports of fatigue, reports fever, or chills Cardiovascular: No reports of chest pain or palpitations Respiratory: No reports of worsening shortness of breath or cough GI: No reports of nausea, no reports of vomiting, no diarrhea , reports abdominal pain and no bowel movement in 4 days : reports of dysuria and pain with urination Neurovascular: reports of generalized weakness All medications have been reviewed PHYSICAL EXAMINATION: GENERAL: The patient is alert and oriented x4, Well developed, well nourished. Morbidly obese HEENT: Pupils are round and equally reacting to light. EOMI. no scleral icterus. No conjunctival pallor. Normocephalic, atraumatic. No pharyngeal erythema. No thyromegaly. CARDIOVASCULAR: S1 and S2 muffled PULMONARY: diminished breath sounds bilaterally with some scattered rhonchi noted. ABDOMEN: soft. tender lower quadrants bilaterally on exam. obese. non- distended, normoactive bowel sounds. No palpable organomegaly. MUSCULOSKELETAL: No joint swelling or deformity. EXTREMITIES: No cyanosis, clubbing, or pedal edema. Chronic upper and lower e xtremity edema nonpitting NEUROLOGICAL: Gross neurological examination did not reveal any focal deficits. Diffuse weakness SKIN: No rashes. Assessment: Vaginal bleeding, secondary to endometrial cancer with acute blood loss anemia Diabetes mellitus, type II, insulin-dependent uncontrolled with hyperglycemia Leukocytosis with Acute fever, possibly secondary to acute urinary tract infection Chronic kidney disease stage III History of COPD, not in exacerbation Chronic hypoxic respiratory failure secondary to COPD wears 4 L outpatient History of recent pulmonary embolism, Left upper lobe posterior perfusion defect consistent with pulmonary embolism as noted on VQ scan on previous admission in October 2022 History of deep vein thrombosis and PE, was maintained on anticoagulation, status post IVC filter placement 11/25/2022 Hypertension history History of rheumatoid arthritis History of lupus History of leukemia History of anxiety Morbid obesity with a BMI of 45.2 GI prophylaxis DVT prophylaxis Full code Plan: Patient had IVC filter placed with vascular surgery and has been cleared and signed off Patient follow-up with Dr. Barker out of [facility] gynecology oncology for further evaluation and possible surgical intervention Patient needs tight glycemic control and will continue sliding scale and Accu- Cheks before meals and at bedtime along with long-acting Patient developed a low-grade temps overnight and urinalysis was obtained and patient is reporting some pain and burning with urination will obtain a urine culture and give a dose of ceftriaxone. Infectious disease consulted and appreciate input and recommendations this patient has had resistant UTIs in the past. Chest x-ray concerning for atelectasis and encouraged incentive spirometer use and encouraging increased activity as tolerated. Patient has been afebrile for 24 hours and white count has normalized. Will await infectious disease input and recommendations. Will obtain repeat labs in the a.m. with possible discharge planning in the next 24-48 hours The impression and plan of care has been dictated by Fabienne Fortune, nurse practitioner as directed. Dr. David MD I have performed a history and examination and MDM of this patient, discussed the same with the dictator, and agree with the dictator's assessment and plan as written ,documented as a scribe. Based on total visit time, I have performed more than 50% of the visit. Any additional findings or plans will be noted. Objective - Vital Signs Vital signs: Vital Signs Temp 98.1 F 11/26/22 07:10 Pulse 86 11/26/22 08:58 Resp 17 11/26/22 07:10 BP 126/76 11/26/22 07:10 Pulse Ox 95 11/26/22 08:46 FiO2 Intake & Output 11/25/22 11/26/22 11/26/22 18:59 06:59 18:59 Intake Total 250 Output Total 150 1400 Balance 100 -1400 Intake: IV 10 Oral 240 Output: Urine 150 1400 Other: Voiding Method Diaper Diaper Incontinent Incontinent External Catheter External Catheter # Voids 1 # Bowel Movements 0 - Labs CBC & Chem 7: 11/26/22 06:00 11/26/22 06:00 Labs: Abnormal Lab Results - Last 24 Hours (Table) 11/25/22 11/25/22 11/25/22 Range/Units 12:15 17:40 20:54 RBC (4.10-5.20) X 10*6/uL Hgb (12.0-15.0) d/dL Hct (37.2-46.3) % MCHC (32.0-37.0) d/dL POC Glucose (mg/dL) 194 H 207 H 185 H (70-110) mg/dL Urine Appearance (Clear) Urine Protein (Negative) Urine Glucose (UA) (Negative) Urine Blood (Negative) Ur Leukocyte Esterase (Negative) Urine RBC (0-5) /hpf Urine WBC (0-5) /hpf Urine Bacteria (None) /hpf Urine Yeast (Budding) (None) /hpf 11/26/22 11/26/22 11/26/22 Range/Units 01:40 06:00 06:21 RBC 3.24 L (4.10-5.20) X 10*6/uL Hgb 9.2 L (12.0-15.0) d/dL Hct 28.8 L (37.2-46.3) % MCHC 31.9 L (32.0-37.0) d/dL POC Glucose (mg/dL) 156 H (70-110) mg/dL Urine Appearance Cloudy H (Clear) Urine Protein Trace H (Negative) Urine Glucose (UA) 3+ H (Negative) Urine Blood Moderate H (Negative) Ur Leukocyte Esterase Large H (Negative) Urine RBC 38 H (0-5) /hpf Urine WBC 86 H (0-5) /hpf Urine Bacteria Many H (None) /hpf Urine Yeast (Budding) Many H (None) /hpf
[2022-11-26] MEDS: SENNOSIDES 8.6 MG TAB PO SCH ×2 (15:20→21:32)
[2022-11-26 17:25] LABS: Glucose,Whole Blood 282 mg/dL (70-110)
[2022-11-26 19:59] LABS: Glucose,Whole Blood 176 mg/dL (70-110)
[2022-11-26] MEDS: MONTELUKAST 10 MG TAB PO SCH (21:30)
[2022-11-26] MEDS: ATORVASTATIN 10 MG TAB PO SCH (21:30)
--- NOTE | 2022-11-26 22:48 | P.CONS ---
History of Present Illness - Reason for Consult Consult date: 11/26/22 - History of Present Illness Patient is a 57-year-old female with a past medical history weekly for COPD diabetes mellitus admitted arthritis history of uterine cancer for the patient has received radiation therapy presenting to the hospital 5 days ago on 11/21/2022 for evaluation of vaginal bleeding in addition to the abdominal pain and leg pain and weakness patient has been evaluated patient did have a lower e xtremity Doppler with concern for possible right leg DVT patient has been evaluated by vascular surgery and did have a inferior vena cava filter placement on 11/25/2022 patient was afebrile on admission to the hospital however she did spike a fever yesterday afternoon 100 degrees for night patient was also tachycardic white count was normal creatinine slightly elevated urine has been significantly positive with concern for possible gram-negative urinary tract infection patient was started on Rocephin infectious disease was consulted for further management of antibiotic therapy patient has been complaining of generalized body aches denies any chest pain did have some shortness with occasional cough has been coming some lower abdominal pain more of a dull aching 4 to 5-10 no radiation some nausea nobody denies any diarrhea but did have some constipation, patient did have a CT of abdominal pelvis no evidence for acute intra-abdominal process enlarged fibroid uterus with IUD in place left hip fixation hardware and cholelithiasis Past Medical History Past Medical History: Cancer, COPD, Diabetes Mellitus, Deep Vein Thrombosis (DVT), Hypertension, Renal Disease, Rheumatoid Arthritis (RA), Thyroid Disorder Additional Past Medical History / Comment(s): O2 @ 4L. SLE LUPUS. STAGE 3 KIDNEY DISEASE. Leukemia, GRAVES DZ , kidney stones, gout, Uterine cancer (no surgery, radiation only) History of Any Multi-Drug Resistant Organisms: Other MDRO Past Surgical History: No Surgical Hx Reported Additional Past Surgical History / Comment(s): BILATERAL ARTHROSCOPY KNEES. D & C (MISCARRIAGES). Past Anesthesia/Blood Transfusion Reactions: No Reported Reaction Past Psychological History: Anxiety Smoking Status: Never smoker Past Alcohol Use History: None Reported Past Drug Use History: None Reported - Past Family History Mother Family Medical History: Congestive Heart Failure (CHF), Diabetes Mellitus Father Family Medical History: Congestive Heart Failure (CHF), Dialysis, Hypertension Medications and Allergies Home Medications Medication Instructions Recorded Confirmed Type Montelukast [Singulair] 10 mg PO HS 01/09/17 11/21/22 History Albuterol Inhaler [Ventolin Hfa 2 puff INHALATION RT-Q4H PRN 01/14/17 11/21/22 History Inhaler] allopurinoL [Zyloprim] 100 mg PO BID 01/21/22 11/21/22 History Atorvastatin [Lipitor] 10 mg PO HS 02/15/22 11/21/22 History Ondansetron [Zofran] 4 mg PO Q12HR PRN 02/15/22 11/21/22 History Acetaminophen Tab [Tylenol] 650 mg PO Q6HR PRN tab 03/28/22 11/21/22 Rx Megestrol [Megace] 40 mg PO BID #60 tablet 04/10/22 11/21/22 Rx Hydroxychloroquine Sulfate 200 mg PO BID 04/13/22 11/21/22 History [Plaquenil] hydrOXYzine HCL [Atarax] 25 mg PO QID 04/13/22 11/21/22 History FLUoxetine HCL [PROzac] 20 mg PO BID 10/27/22 11/21/22 History Furosemide [Lasix] 40 mg PO DAILY 10/27/22 11/21/22 History Gabapentin 600 mg PO BID 10/27/22 11/21/22 History Pantoprazole [Protonix] 40 mg PO BID 10/27/22 11/21/22 History INSULIN ASPART (NovoLOG) [NovoLOG 15 unit SQ AC-TID #10 ml 11/01/22 11/21/22 Rx (formulary)] Insulin Detemir (Levemir) [Levemir] 25 unit SQ BID 11/06/22 11/21/22 History Metoprolol Tartrate [Lopressor] 25 mg PO DAILY 11/06/22 11/21/22 History Empagliflozin [Jardiance] 10 mg PO DAILY 11/21/22 11/21/22 History Enoxaparin [Lovenox] 40 mg SQ DAILY each 11/22/22 Rx INSULIN ASPART (NovoLOG) [NovoLOG 0 unit SQ ACHS each 11/22/22 Rx (formulary)] Allergies Allergy/AdvReac Type Severity Reaction Status Date / Time ciprofloxacin [From Cipro] Allergy Swelling Verified 11/21/22 19:06 diphenhydramine Allergy Swelling Verified 11/21/22 19:06 [From Benadryl] Influenza Virus Vaccines Allergy Unknown Verified 11/21/22 19:06 iodine Allergy Swelling Verified 11/21/22 19:06 propoxyphene Allergy Swelling Verified 11/21/22 19:06 [From Darvocet-N] red dye Allergy Swelling Verified 11/21/22 19:06 sulfacetamide Allergy Swelling Verified 11/21/22 19:06 [From Sulfamide] yellow dye Allergy Swelling Verified 11/21/22 19:06 Physical Exam Vitals: Vital Signs Temp Pulse Pulse Resp BP Pulse Ox 11/26/22 08:58 86 11/26/22 08:46 88 95 11/26/22 07:10 98.1 F 104 H 17 126/76 100 11/26/22 00:40 98.1 F 110 H 20 109/61 96 11/26/22 00:24 89 11/26/22 00:10 92 11/25/22 20:52 98.9 F 111 H 18 116/69 99 11/25/22 20:07 72 11/25/22 19:57 70 11/25/22 15:00 110 H 118/65 98 11/25/22 14:00 100 F H 110 H 20 130/84 97 11/25/22 13:30 108 H 143/82 98 11/25/22 13:00 132 H 94/57 97 11/25/22 12:45 115 H 112/71 98 11/25/22 12:30 108 H 128/59 98 11/25/22 12:15 98.3 F 106 H 18 117/65 98 Intake and Output 11/25/22 11/26/22 11/26/22 22:59 06:59 14:59 Intake Total 120 Output Total 150 1400 Balance -30 -1400 Intake: Oral 120 Output: Urine 150 1400 Other: Voiding Method Diaper Incontinent External Catheter Results CBC & Chem 7: 11/26/22 06:00 11/26/22 06:00 Labs: Abnormal Lab Results - Last 24 Hours (Table) 11/25/22 11/25/22 11/25/22 Range/Units 12:15 17:40 20:54 RBC (4.10-5.20) X 10*6/uL Hgb (12.0-15.0) d/dL Hct (37.2-46.3) % MCHC (32.0-37.0) d/dL POC Glucose (mg/dL) 194 H 207 H 185 H (70-110) mg/dL Urine Appearance (Clear) Urine Protein (Negative) Urine Glucose (UA) (Negative) Urine Blood (Negative) Ur Leukocyte Esterase (Negative) Urine RBC (0-5) /hpf Urine WBC (0-5) /hpf Urine Bacteria (None) /hpf Urine Yeast (Budding) (None) /hpf 11/26/22 11/26/22 11/26/22 Range/Units 01:40 06:00 06:21 RBC 3.24 L (4.10-5.20) X 10*6/uL Hgb 9.2 L (12.0-15.0) d/dL Hct 28.8 L (37.2-46.3) % MCHC 31.9 L (32.0-37.0) d/dL POC Glucose (mg/dL) 156 H (70-110) mg/dL Urine Appearance Cloudy H (Clear) Urine Protein Trace H (Negative) Urine Glucose (UA) 3+ H (Negative) Urine Blood Moderate H (Negative) Ur Leukocyte Esterase Large H (Negative) Urine RBC 38 H (0-5) /hpf Urine WBC 86 H (0-5) /hpf Urine Bacteria Many H (None) /hpf Urine Yeast (Budding) Many H (None) /hpf Assessment and Plan Plan: 1patient with a low-grade fever 100 F source is likely multifactorial in this patient who do have a history of endometrial cancer undergoing radiation therapy with concern for possible DVT and recently did have a inferior vena cava filter placement patient becoming some abdominal pain however no acute abnormality was noticed and no evidence of any pneumonia did have a positive UA concerning for possible symptomatic UTI from enteric gram-negative pathogen 2-Rocephin 1 g be to continue while waiting for the culture to finalize We will follow on clinical condition and cultures to further adjust medication if needed Thank you for this consultation we will follow the patient along with you Dictation was produced using [employer] dictation software. please excuse any grammatical, word or spelling errors. Time with Patient: Greater than 30
[2022-11-27] MEDS: SODIUM CHLORIDE 0.9% 1,000 ML IV SCH (00:41)
[2022-11-27] MEDS: IPRATROPIUM-ALBUTEROL 3 ML NEB INHALATION SCH ×5 (04:22→20:57)
[2022-11-27 05:56] LABS: Glucose,Whole Blood 198 mg/dL (70-110)
[2022-11-27] MEDS: INSULIN DETEMIR (LEVEMIR) 100 UNIT/ML SYR SQ SCH ×2 (06:16→21:27)
[2022-11-27] MEDS: INSULIN ASPART (NovoLOG) 100 UNIT/ML VIAL SQ SCH ×7 (06:36→21:27)
[2022-11-27] MEDS: MORPHINE SULFATE 4 MG/ML SYRINGE IV PRN ×2 (06:40→11:43)
[2022-11-27] MEDS: FLUoxetine HCL 20 MG CAP PO SCH ×2 (08:48→21:27)
[2022-11-27] MEDS: SENNOSIDES 8.6 MG TAB PO SCH ×2 (08:48→21:27)
[2022-11-27] MEDS: DAPAGLIFLOZIN PROPANEDIOL 5 MG TABLET PO SCH (08:48)
[2022-11-27] MEDS: allopurinoL 100 MG TAB PO SCH ×2 (08:48→21:27)
[2022-11-27] MEDS: HYDROXYCHLOROQUINE SULFATE 200 MG TAB PO SCH ×2 (08:48→21:27)
[2022-11-27] MEDS: GABAPENTIN 300 MG CAP PO SCH ×2 (08:49→21:27)
[2022-11-27] MEDS: PANTOPRAZOLE 40 MG TABLET PO SCH ×2 (08:49→21:27)
[2022-11-27] MEDS: FUROSEMIDE 40 MG TAB PO SCH (08:49)
[2022-11-27] MEDS: METOPROLOL TARTRATE 12.5 MG TAB PO SCH (08:49)
[2022-11-27] MEDS: hydrOXYzine HCL 25 MG TAB PO SCH ×4 (08:49→21:26)
[2022-11-27] MEDS: ENOXAPARIN 30 MG/0.3 ML SYRINGE SQ SCH (08:50)
--- NOTE | 2022-11-27 10:48 | CT ---
EXAMINATION TYPE: CT brain wo con DATE OF EXAM: 11/27/2022 COMPARISON: None HISTORY: "Feels Foggy", Altered mentation CT DLP: 1239 mGycm Automated exposure control for dose reduction was used. FINDINGS: Exam limited by patient motion. Assessment for subtle hemorrhage is nondiagnostic. Grossly there is n o midline shift or mass effect. No obvious intracranial hemorrhage. Ventricular system compatible wit h mild generalized degenerative change. Grossly the calvarium is intact with changes of bilateral mastoiditis. Orbits are grossly symmetric. Sinuses demonstrate no significant mucosal thickening. Partially empty sella turcica. Craniocervical junction maintained. IMPRESSION: 1. Limited exam due to motion demonstrates no obvious acute intracranial hemorrhage or mass effect or midline shift. Correlate with MRI as clinically warranted given limitation of the exam. 2. Bilateral mastoiditis
[2022-11-27 12:35] LABS: Glucose,Whole Blood 139 mg/dL (70-110)
[2022-11-27] MEDS: DAPTOmycin 350 MG in SODIUM CHLORIDE 0.9% 50 ML IVPB SCH (13:42)
[2022-11-27 17:47] LABS: Glucose,Whole Blood 183 mg/dL (70-110)
[2022-11-27 21:26] LABS: Glucose,Whole Blood 119 mg/dL (70-110)
[2022-11-27] MEDS: MONTELUKAST 10 MG TAB PO SCH (21:27)
[2022-11-28] MEDS: MORPHINE SULFATE 4 MG/ML SYRINGE IV PRN ×2 (00:07→04:35)
[2022-11-28] MEDS: IPRATROPIUM-ALBUTEROL 3 ML NEB INHALATION SCH ×7 (00:35→23:38)
[2022-11-28] MEDS: SODIUM CHLORIDE 0.9% 1,000 ML IV SCH (02:11)
[2022-11-28] MEDS ORDERED: PHENAZOPYRIDINE 100 MG TAB PO PRN (05:15)
--- NOTE | 2022-11-28 05:36 | P.PN ---
Subjective Progress Note Date: 11/27/22 This is a 57-year-old female who was recently admitted vaginal bleeding with history of endometrial carcinoma and follows with [facility] outpatient. Patient has been seen and evaluated by Dr. Euceda gynecology oncology undergoing presurgical clearance although has not been approved for surgical intervention by endocrine as her diabetes is extremely uncontrolled and her hemoglobin A1c is above 12. Patient is noncompliant with medications and follow-up and continues to have multiple hospitalizations regarding this. Patient was maintained on anticoagulation for DVT and suspected PEs and has been off and on eliquis and Xarelto with hematology/oncology Dr. Martin following. Attempted to transfer the patient to [facility] for tertiary treatment although was denied as patient is considered stable and vaginal bleeding is marginal and hemoglobin remained stable. Vascular surgery was placed on consult and patient is scheduled to undergo IVC filter placement today. Patient also following with cardiology and nephrology outpatient in regards to her surgical clearance as well. 11/26/2022 Patient is seen and evaluated in follow-up this morning and has been having low- grade temps reporting pain and burning with urination and urinalysis was obtained and will send for culture. Will initiate ceftriaxone. Chest x-ray ordered and showed findings of most likely atelectasis and a concern for a lucency within the central abdomen recommending abdominal series. Abdomen x-ray was ordered showing limited due to body habitus but reporting some dilated loops of bowel in the upper abdomen within left abdomen which could represent obstruction and recommending CT abdomen. CT abdomen is ordered and pending. Patient reports she continues to have pain and burning with urination and also reports has not had a bowel movement in 4 days. Patient was given a dose of ceftriaxone and will send for urine culture and also consult infectious disease and appreciate input and recommendations as patient has had previous urinary tract infections with resistance. 11/27/2052 Patient is seen this morning lying in bed and patient reports she was just out of bed and per nursing staff patient is mostly in the bed throughout the whole day. Patient being followed by infectious disease maintained on antibiotics and awaiting urine cultures with preliminary showing gram-negative bacilli. Patient continues to report pain and burning with urination and adding Pyridium as needed for symptoms. Patient also reports to feeling like she is having memory issues and her speech is garbled. Patient evaluated on the phone prior to going in the room with normal speech and absolutely no aphasia or slurred speech as patient was having a full conversation. Will obtain computed tomography scan. Patient is afebrile denies chest pain or worsening shortness of breath. Patient is maintained on breathing inhalational treatments as she chronically uses and continues on her 4 L of oxygen. Patient has been encouraged to increase activity as tolerated. Review of systems: Constitutional: No reports of fatigue, reports fever, or chills Cardiovascular: No reports of chest pain or palpitations Respiratory: No reports of worsening shortness of breath or cough GI: No reports of nausea, no reports of vomiting, no diarrhea , reports abdominal pain and had bowel movement yesterday : reports of dysuria and pain with urination Neurovascular: reports of generalized weakness All medications have been reviewed PHYSICAL EXAMINATION: GENERAL: The patient is alert and oriented x4, Well developed, well nourished. Morbidly obese HEENT: Pupils are round and equally reacting to light. EOMI. no scleral icterus. No conjunctival pallor. Normocephalic, atraumatic. No pharyngeal erythema. No thyromegaly. CARDIOVASCULAR: S1 and S2 muffled PULMONARY: diminished breath sounds bilaterally with some scattered rhonchi noted. ABDOMEN: soft. tender lower quadrants bilaterally on exam. obese. non-distend ed, normoactive bowel sounds. No palpable organomegaly. MUSCULOSKELETAL: No joint swelling or deformity. EXTREMITIES: No cyanosis, clubbing, or pedal edema. Chronic upper and lower extremity edema nonpitting NEUROLOGICAL: Gross neurological examination did not reveal any focal deficits. Diffuse weakness SKIN: No rashes. Assessment: Vaginal bleeding, secondary to endometrial cancer with acute blood loss anemia Pain and burning with urination, acute urinary tract infection, present on admis kallie Diabetes mellitus, type II, insulin-dependent uncontrolled with hyperglycemia Leukocytosis with Acute fever, possibly secondary to acute urinary tract infection Chronic kidney disease stage III History of COPD, not in exacerbation Chronic hypoxic respiratory failure secondary to COPD wears 4 L outpatient History of recent pulmonary embolism, Left upper lobe posterior perfusion defect consistent with pulmonary embolism as noted on VQ scan on previous admission in October 2022 History of deep vein thrombosis and PE, was maintained on anticoagulation, status post IVC filter placement 11/25/2022 Hypertension history History of rheumatoid arthritis History of lupus History of leukemia History of anxiety Morbid obesity with a BMI of 45.2 GI prophylaxis DVT prophylaxis Full code Plan: Patient had IVC filter placed with vascular surgery and has been cleared and vascular has signed off Patient follow-up with Dr. Barker out of [facility] gynecology oncology for further evaluation and possible surgical intervention Will continue sliding scale and Accu-Cheks before meals and at bedtime along with long-acting Patient developed low-grade temps overnight and urinalysis preliminary now trudy wing gram-negative bacilli and infectious disease is following patient maintained on ceftriaxone. Awaiting finalized cultures. Patient continues to report pain and burning with urination and will add pyridium. Encouraged incentive spirometer use and encouraging increased activity as tolerated. Patient has been afebrile for 24 hours and white count has normalized. Will await infectious disease recommendations on discharge antibiotics once cultures are finalized Will obtain repeat labs in the a.m. The impression and plan of care has been dictated by nurse Keny pra ctitioner as directed. Dr. David MD I have performed a history and examination and MDM of this patient, discussed the same with the dictator, and agree with the dictator's assessment and plan as written ,documented as a scribe. Based on total visit time, I have performed more than 50% of the visit. Any additional findings or plans will be noted. Objective - Vital Signs Vital signs: Vital Signs Temp 97.8 F 11/27/22 08:00 Pulse 104 H 11/27/22 08:00 Resp 18 11/27/22 08:00 BP 111/70 11/27/22 08:00 Pulse Ox 98 11/27/22 08:00 FiO2 Intake & Output 11/26/22 11/27/22 11/27/22 18:59 06:59 18:59 Intake Total 237 Balance 237 Intake: Oral 237 Other: # Voids 1 - Labs CBC & Chem 7: 11/26/22 06:00 11/26/22 06:00 Labs: Abnormal Lab Results - Last 24 Hours (Table) 11/26/22 11/26/22 11/26/22 Range/Units 06:00 11:46 17:23 Carbon Dioxide 20.0 L (21.6-31.8) mmol/L Anion Gap 15.00 H (4.00-12.00) mmol/L BUN 51.1 H (9.0-27.0) mg/dL Creatinine 2.3 H (0.6-1.5) mg/dL Est GFR (CKD-EPI) 24 L (>=60) BUN/Creatinine Ratio 22.22 H (12.00-20.00) Ratio Glucose 145 H (70-110) mg/dL POC Glucose (mg/dL) 250 H 282 H (70-110) mg/dL 11/26/22 11/27/22 Range/Units 19:57 05:55 Carbon Dioxide (21.6-31.8) mmol/L Anion Gap (4.00-12.00) mmol/L BUN (9.0-27.0) mg/dL Creatinine (0.6-1.5) mg/dL Est GFR (CKD-EPI) (>=60) BUN/Creatinine Ratio (12.00-20.00) Ratio Glucose (70-110) mg/dL POC Glucose (mg/dL) 176 H 198 H (70-110) mg/dL Microbiology - Last 24 Hours (Table) 11/25/22 15:05 Blood Culture - Preliminary Blood
[2022-11-28 06:04] LABS: Glucose,Whole Blood 166 mg/dL (70-110)
[2022-11-28] MEDS: INSULIN DETEMIR (LEVEMIR) 100 UNIT/ML SYR SQ SCH ×2 (06:23→20:59)
[2022-11-28] MEDS: INSULIN ASPART (NovoLOG) 100 UNIT/ML VIAL SQ SCH ×7 (06:24→21:00)
[2022-11-28] MEDS: PANTOPRAZOLE 40 MG TABLET PO SCH ×2 (09:20→20:59)
[2022-11-28] MEDS: SENNOSIDES 8.6 MG TAB PO SCH ×2 (09:20→21:00)
[2022-11-28] MEDS: FLUoxetine HCL 20 MG CAP PO SCH ×2 (09:20→21:00)
[2022-11-28] MEDS: FUROSEMIDE 40 MG TAB PO SCH (09:20)
[2022-11-28] MEDS: METOPROLOL TARTRATE 12.5 MG TAB PO SCH (09:20)
[2022-11-28] MEDS: allopurinoL 100 MG TAB PO SCH ×2 (09:20→21:00)
[2022-11-28] MEDS: HYDROXYCHLOROQUINE SULFATE 200 MG TAB PO SCH ×2 (09:21→21:00)
[2022-11-28] MEDS: DAPAGLIFLOZIN PROPANEDIOL 5 MG TABLET PO SCH (09:21)
[2022-11-28] MEDS: ENOXAPARIN 30 MG/0.3 ML SYRINGE SQ SCH (09:21)
[2022-11-28] MEDS: hydrOXYzine HCL 25 MG TAB PO SCH ×4 (09:22→20:59)
[2022-11-28] MEDS: GABAPENTIN 300 MG CAP PO SCH ×2 (10:27→21:00)
[2022-11-28] MEDS: HYDROcodone/APAP 5-325MG 1 EACH TAB PO PRN ×2 (10:33→18:29)
[2022-11-28 10:57] LABS: Basophils # (A) 0.06 X 10*3/uL (0.00-0.10); Basophils % (A) 0.5 %; Eosinophils # (A) 0.54 X 10*3/uL (0.04-0.35); Eosinophils % (A) 4.4 %; HCT 27.8 % (37.2-46.3); HGB 8.8 d/dL (12.0-15.0); Lymphocytes # (A) 2.42 X 10*3/uL (0.90-5.00); Lymphocytes % (A) 19.8 %; MCH 28.4 pg (27.0-32.0); MCHC 31.7 d/dL (32.0-37.0); MCV 89.7 FL (80.0-97.0); Monocytes # (A) 1.12 X 10*3/uL (0.20-1.00); Monocytes % (A) 9.2 %; NRBC Per 100 WBC 0 X 10*3/uL (0.00-0.01); Neutrophils # (A) 8.02 X 10*3/uL (1.80-7.70); Neutrophils % (A) 65.4 %; Platelet Count 330 X 10*3/uL (140-440); RDW 13.7 % (11.5-14.5); WBC 12.24 X 10*3/uL (4.50-10.00)
[2022-11-28 11:13] LABS: BUN/Creat Ratio 21.63 Ratio (12.00-20.00); Blood Urea Nitrogen 58.4 mg/dL (9.0-27.0); Calcium 9.2 mg/dL (8.7-10.3); Carbon Dioxide 19.2 mmol/L (21.6-31.8); Chloride 109 mmol/L (96-109); Glucose 157 mg/dL (70-110); Magnesium 1.7 mg/dL (1.5-2.4); Potassium 4.5 mmol/L (3.5-5.5); Sodium 144 mmol/L (135-145)
[2022-11-28 12:50] LABS: Glucose,Whole Blood 154 mg/dL (70-110)
[2022-11-28 14:07] VITALS: BMI 45.1
[2022-11-28 17:08] LABS: Glucose,Whole Blood 88 mg/dL (70-110)
--- NOTE | 2022-11-28 17:19 | P.PN ---
Subjective Progress Note Date: 11/28/22 Principal diagnosis: endometerial cancer, vaginal bleeding At today's visit patient is resting comfortably in bedside chair. S/p IVC filter. Patient is still experiencing intermittent vaginal bleeding. She had episode of vaginal bleeding this morning stating that there was light saturation of draw pad, denies blood clots. Patient is afebrile. Continues on IV antibiotics for gram-negative bacilli positive urine culture, culture still pending. Today hemoglobin is 8.8, hemoglobin has been slowly trending down over the last couple days. Will order anemia work-up to rule out nutritional deficiencies. Objective - Vital Signs Vital signs: Vital Signs Temp 97.9 F 11/28/22 12:59 Pulse 100 11/28/22 15:25 Resp 18 11/28/22 12:59 BP 96/60 11/28/22 13:54 Pulse Ox 95 11/28/22 12:59 FiO2 Intake & Output 11/27/22 11/28/22 11/28/22 18:59 06:59 18:59 Intake Total 237 236 Output Total 0 500 Balance 237 0 -264 Weight 127.006 kg Intake: Oral 237 236 Output: Urine 0 500 Other: Voiding Method Diaper Incontinent External Catheter # Voids 2 1 1 # Bowel Movements 1 1 - Constitutional General appearance: Present: no acute distress, obese - EENT Eyes: Present: anicteric sclerae, EOMI ENT: Present: hearing grossly normal - Respiratory Details: breathing is even and unlabored - Cardiovascular Details: skin is warm and dry - Gastrointestinal General gastrointestinal: Present: tenderness Localized gastrointestinal: tender: diffuse (L>R) - Integumentary Integumentary: Absent: cyanotic, jaundiced - Musculoskeletal Musculoskeletal: Present: generalized weakness - Psychiatric Psychiatric: Present: A&O x's 3, appropriate affect, intact judgment & insight - Labs CBC & Chem 7: 11/28/22 06:14 11/28/22 06:14 Labs: Abnormal Lab Results - Last 24 Hours (Table) 11/27/22 11/27/22 11/27/22 Range/Units 10:17 17:45 21:25 WBC (4.50-10.00) X 10*3/uL RBC (4.10-5.20) X 10*6/uL Hgb (12.0-15.0) d/dL Hct (37.2-46.3) % MCHC (32.0-37.0) d/dL Neutrophils # (1.80-7.70) X 10*3/uL Monocytes # (0.20-1.00) X 10*3/uL Eosinophils # (0.04-0.35) X 10*3/uL Carbon Dioxide (21.6-31.8) mmol/L Anion Gap (4.00-12.00) mmol/L BUN (9.0-27.0) mg/dL Creatinine (0.6-1.5) mg/dL Est GFR (CKD-EPI) (>=60) BUN/Creatinine Ratio (12.00-20.00) Ratio Glucose (70-110) mg/dL POC Glucose (mg/dL) 183 H 119 H (70-110) mg/dL Procalcitonin 1.24 H (0.02-0.09) ng/mL 11/28/22 11/28/22 11/28/22 Range/Units 06:03 06:14 06:14 WBC 12.24 H (4.50-10.00) X 10*3/uL RBC 3.10 L (4.10-5.20) X 10*6/uL Hgb 8.8 L (12.0-15.0) d/dL Hct 27.8 L (37.2-46.3) % MCHC 31.7 L (32.0-37.0) d/dL Neutrophils # 8.02 H (1.80-7.70) X 10*3/uL Monocytes # 1.12 H (0.20-1.00) X 10*3/uL Eosinophils # 0.54 H (0.04-0.35) X 10*3/uL Carbon Dioxide 19.2 L (21.6-31.8) mmol/L Anion Gap 15.80 H (4.00-12.00) mmol/L BUN 58.4 H (9.0-27.0) mg/dL Creatinine 2.7 H (0.6-1.5) mg/dL Est GFR (CKD-EPI) 20 L (>=60) BUN/Creatinine Ratio 21.63 H (12.00-20.00) Ratio Glucose 157 H (70-110) mg/dL POC Glucose (mg/dL) 166 H (70-110) mg/dL Procalcitonin (0.02-0.09) ng/mL 11/28/22 Range/Units 12:48 WBC (4.50-10.00) X 10*3/uL RBC (4.10-5.20) X 10*6/uL Hgb (12.0-15.0) d/dL Hct (37.2-46.3) % MCHC (32.0-37.0) d/dL Neutrophils # (1.80-7.70) X 10*3/uL Monocytes # (0.20-1.00) X 10*3/uL Eosinophils # (0.04-0.35) X 10*3/uL Carbon Dioxide (21.6-31.8) mmol/L Anion Gap (4.00-12.00) mmol/L BUN (9.0-27.0) mg/dL Creatinine (0.6-1.5) mg/dL Est GFR (CKD-EPI) (>=60) BUN/Creatinine Ratio (12.00-20.00) Ratio Glucose (70-110) mg/dL POC Glucose (mg/dL) 154 H (70-110) mg/dL Procalcitonin (0.02-0.09) ng/mL Microbiology - Last 24 Hours (Table) 11/25/22 15:05 Blood Culture - Preliminary Blood 11/26/22 15:14 Urine Culture - Preliminary Urine,Clean Catch Gram Neg Bacilli - Imaging and Cardiology CT scan - abdomen: report reviewed CT Scan - head: report reviewed CT scan - pelvis: report reviewed Assessment and Plan (1) Vaginal bleeding Current Visit: Yes Status: Acute Priority: High Code(s): N93.9 - ABNORMAL UTERINE AND VAGINAL BLEEDING, UNSPECIFIED SNOMED Code(s): 502387542 (2) Adenocarcinoma of endometrium, stage 1 Current Visit: Yes Status: Acute Priority: High Code(s): C54.1 - MALIGNANT NEOPLASM OF ENDOMETRIUM SNOMED Code(s): 313538106 (3) Anemia Current Visit: Yes Status: Acute Priority: High Code(s): D64.9 - ANEMIA, UNSPECIFIED SNOMED Code(s): 927614013 Plan: Vaginal bleeding: -Ongoing since diagnosis last year. Has intermittent exacerbations of heavy vaginal bleeding. Pt was anticoagulated with eliquis for PE last month. She was previously on Eliquis for DVT but was subsequently taken off for heavy vaginal bleeding, so this is not treatment failure. Pt has been on megace for vaginal bleeding by support worker onc which can have adverse side effect of thrombus. Would recommend holding medication for now. Eliquis has been stopped. Patient on prophylactic dose lovenox 30mg once daily. -IVC filter placed by Dr. Baldwin. Due to recent PE would recommend patient to be continued on Eliquis 2.5mg BID upon discharge. Don't believe vaginal bleeding is from anticoagulation but rather from malignancy. Ultimately she will need surgery once cleared by surgeon and endocrine. If vaginal bleeding/hgb worsens she may need to d/c medication Anemia: -Hemoglobin 12.1 upon admission, has continued to decrease over the last 3 days. Hgb 8.8 today. Platelets stable 330,000. -Anemia workup ordered to r/o nutritional deficiencies -Will continue to monitor. Please transfuse for hgb less than 7 or if symptomatic Endometrial adenocarcinoma: -Hx of endometrioid well-differentiated FIGO 1 adenocarcinoma being treated by [address] Euceda at [facility]. She was started on Megace 40 mg twice daily for treatment of her endometrial adenocarcinoma as she was not a surgical candidate due to multiple medical comorbidities. -Has been evaluated by rad/onc in the past, not a candidate for RT -Patient continues to follow with Dr. Euceda, last seeing him in September 2022 at which time surgery was planned but her A1C was found to be 12.1. She followed up with endocrinology and at this time her diabetes is trying to be controlled before proceeding with any surgical intervention. She has continued on Megace 40 mg twice for vaginal bleeding. As stated above, will hold medication for now due to increased risk of thrombosis. Patient has upcoming apt with Dr. Euceda, recommended to further discuss medication with him and if he wants her to restart medication vs discontinuing medication until she can undergo surgery. She verbalized understanding
--- NOTE | 2022-11-28 19:44 | P.PN ---
Subjective Progress Note Date: 11/28/22 This is a 57-year-old female who was recently admitted vaginal bleeding with history of endometrial carcinoma and follows with [facility] outpatient. Patient has been seen and evaluated by Dr. Euceda gynecology oncology undergoing presurgical clearance although has not been approved for surgical intervention by endocrine as her diabetes is extremely uncontrolled and her hemoglobin A1c is above 12. Patient is noncompliant with medications and follow-up and continues to have multiple hospitalizations regarding this. Patient was maintained on anticoagulation for DVT and suspected PEs and has been off and on eliquis and Xarelto with hematology/oncology Dr. Martin following. Attempted to transfer the patient to [facility] for tertiary treatment although was denied as patient is considered stable and vaginal bleeding is marginal and hemoglobin remained stable. Vascular surgery was placed on consult and patient is scheduled to undergo IVC filter placement today. Patient also following with cardiology and nephrology outpatient in regards to her surgical clearance as well. 11/26/2022 Patient is seen and evaluated in follow-up this morning and has been having low- grade temps reporting pain and burning with urination and urinalysis was obtained and will send for culture. Will initiate ceftriaxone. Chest x-ray ordered and showed findings of most likely atelectasis and a concern for a lucency within the central abdomen recommending abdominal series. Abdomen x-ray was ordered showing limited due to body habitus but reporting some dilated loops of bowel in the upper abdomen within left abdomen which could represent obstruction and recommending CT abdomen. CT abdomen is ordered and pending. Patient reports she continues to have pain and burning with urination and also reports has not had a bowel movement in 4 days. Patient was given a dose of ceftriaxone and will send for urine culture and also consult infectious disease and appreciate input and recommendations as patient has had previous urinary tract infections with resistance. 11/27/2022 Patient is seen this morning lying in bed and patient reports she was just out of bed and per nursing staff patient is mostly in the bed throughout the whole day. Patient being followed by infectious disease maintained on antibiotics and awaiting urine cultures with preliminary showing gram-negative bacilli. Patient continues to report pain and burning with urination and adding Pyridium as needed for symptoms. Patient also reports to feeling like she is having memory issues and her speech is garbled. Patient evaluated on the phone prior to going in the room with normal speech and absolutely no aphasia or slurred speech as patient was having a full conversation. Will obtain computed tomography scan. Patient is afebrile denies chest pain or worsening shortness of breath. Patient is maintained on breathing inhalational treatments as she chronically uses and continues on her 4 L of oxygen. Patient has been encouraged to increase activity as tolerated. 11/28/2022 Patient is seen in follow-up today currently sitting up in the chair which is the first time I've seen her in the chair this admission. Patient continues to report symptoms of burning and pain with urination and is maintained on antibiotics and awaiting finalized cultures to determine discharge antibiotics. Infectious disease following and patient was started on daptomycin preliminary showing gram-negative bacilli. Will follow-up with lab finalized cultures sometime this evening. Patient is afebrile denies worsening shortness of breath or chest pains. Patient reports some mild vaginal bleeding and nothing worsened. Patient is status post IVC filter placement and is maintained on subcutaneous Lovenox. Patient resume low-dose oral anticoagulant on discharge. Patient does have follow-up appointment in the beginning of December with [facility]. Will follow-up with repeat labs and if hemoglobin is less will transfuse. Hemoglobin is stable at 8.8 today. Anemia workup for iron deficiency in progress. Hematology/oncology following. Review of systems: Constitutional: No reports of fatigue, reports fever, or chills Cardiovascular: No reports of chest pain or palpitations Respiratory: No reports of worsening shortness of breath or cough GI: No reports of nausea, no reports of vomiting, no diarrhea , reports abdominal pain and had bowel movement yesterday : reports of dysuria and pain with urination Neurovascular: reports of generalized weakness All medications have been reviewed PHYSICAL EXAMINATION: GENERAL: The patient is alert and oriented x4, Well developed, well nourished. Morbidly obese HEENT: Pupils are round and equally reacting to light. EOMI. no scleral icterus. No conjunctival pallor. Normocephalic, atraumatic. No pharyngeal erythema. No thyromegaly. CARDIOVASCULAR: S1 and S2 muffled PULMONARY: diminished breath sounds bilaterally with some scattered rhonchi noted. ABDOMEN: soft. tender lower quadrants bilaterally on exam. obese. non- distended, normoactive bowel sounds. No palpable organomegaly. MUSCULOSKELETAL: No joint swelling or deformity. EXTREMITIES: No cyanosis, clubbing, or pedal edema. Chronic upper and lower extremity edema nonpitting , improved NEUROLOGICAL: Gross neurological examination did not reveal any focal deficits. Diffuse weakness SKIN: No rashes. Assessment: Vaginal bleeding, secondary to endometrial cancer with acute blood loss anemia Pain and burning with urination, acute urinary tract infection, present on admission Diabetes mellitus, type II, insulin-dependent uncontrolled with hyperglycemia Leukocytosis with Acute fever, possibly secondary to acute urinary tract infection Chronic kidney disease stage III History of COPD, not in exacerbation Chronic hypoxic respiratory failure secondary to COPD wears 4 L outpatient History of recent pulmonary embolism, Left upper lobe posterior perfusion defect consistent with pulmonary embolism as noted on VQ scan on previous admission in October 2022 History of deep vein thrombosis and PE, was maintained on anticoagulation, status post IVC filter placement 11/25/2022 Hypertension history History of rheumatoid arthritis History of lupus History of leukemia History of anxiety Morbid obesity with a BMI of 45.2 GI prophylaxis DVT prophylaxis Full code Plan: Patient had IVC filter placed with vascular surgery and has been cleared and vascular has signed off. Per hematology patient will continue on low-dose oral anticoagulant on discharge and close outpatient follow-up Patient follow-up with Dr. Barker out of [facility] gynecology oncology for further evaluation and possible surgical intervention Will continue sliding scale and Accu-Cheks before meals and at bedtime along with long-acting Patient maintained on antibiotics with ID following and awaiting finalized urine culture. Preliminary is showing gram-negative bacilli and cultures were results sometime this evening. Patient has been started on daptomycin. Will discuss further with infectious disease on discharge planning once cultures are finalized. Encouraged incentive spirometer use and encouraging increased activity as tolerated. Patient has been afebrile for 24 hours Will obtain repeat labs in the a.m. Probable discharge in the next 24-48 hours The impression and plan of care has been dictated by Fabienne Fortune, nurse practitioner as directed. Dr. David MD I have performed a history and examination and MDM of this patient, discussed the same with the dictator, and agree with the dictator's assessment and plan as written ,documented as a scribe. Based on total visit time, I have performed more than 50% of the visit. Any additional findings or plans will be noted. Objective - Vital Signs Vital signs: Vital Signs Temp 98.2 F 11/28/22 08:00 Pulse 100 11/28/22 08:45 Resp 18 11/28/22 08:00 BP 110/67 11/28/22 08:00 Pulse Ox 97 11/28/22 08:35 FiO2 Intake & Output 11/27/22 11/28/22 11/28/22 18:59 06:59 18:59 Intake Total 237 236 Output Total 0 500 Balance 237 0 -264 Intake: Oral 237 236 Output: Urine 0 500 Other: Voiding Method Diaper Incontinent External Catheter # Voids 2 1 1 # Bowel Movements 1 - Labs CBC & Chem 7: 11/28/22 06:14 11/28/22 06:14 Labs: Abnormal Lab Results - Last 24 Hours (Table) 11/27/22 11/27/22 11/27/22 Range/Units 10:17 12:33 17:45 POC Glucose (mg/dL) 139 H 183 H (70-110) mg/dL Procalcitonin 1.24 H (0.02-0.09) ng/mL 11/27/22 11/28/22 Range/Units 21:25 06:03 POC Glucose (mg/dL) 119 H 166 H (70-110) mg/dL Procalcitonin (0.02-0.09) ng/mL Microbiology - Last 24 Hours (Table) 11/25/22 15:05 Blood Culture - Preliminary Blood 11/26/22 15:14 Urine Culture - Preliminary Urine,Clean Catch Gram Neg Bacilli
[2022-11-28 20:03] LABS: Glucose,Whole Blood 117 mg/dL (70-110)
[2022-11-28] MEDS: MONTELUKAST 10 MG TAB PO SCH (21:00)
[2022-11-28 23:26] LABS: % Iron Saturation 16.33 (12.00-45.00)
[2022-11-29] MEDS: IPRATROPIUM-ALBUTEROL 3 ML NEB INHALATION SCH ×6 (05:10→23:41)
[2022-11-29] MEDS: HYDROcodone/APAP 5-325MG 1 EACH TAB PO PRN ×2 (05:38→21:18)
[2022-11-29 06:14] LABS: Glucose,Whole Blood 169 mg/dL (70-110)
[2022-11-29] MEDS: INSULIN ASPART (NovoLOG) 100 UNIT/ML VIAL SQ SCH ×7 (06:34→21:19)
[2022-11-29] MEDS: INSULIN DETEMIR (LEVEMIR) 100 UNIT/ML SYR SQ SCH ×2 (06:34→21:19)
[2022-11-29] MEDS: METOPROLOL TARTRATE 12.5 MG TAB PO SCH (08:41)
[2022-11-29] MEDS: hydrOXYzine HCL 25 MG TAB PO SCH ×4 (08:41→21:20)
[2022-11-29] MEDS: DAPAGLIFLOZIN PROPANEDIOL 5 MG TABLET PO SCH (08:41)
[2022-11-29] MEDS: HYDROXYCHLOROQUINE SULFATE 200 MG TAB PO SCH ×2 (08:41→21:18)
[2022-11-29] MEDS: SENNOSIDES 8.6 MG TAB PO SCH ×2 (08:42→21:18)
[2022-11-29] MEDS: GABAPENTIN 300 MG CAP PO SCH ×2 (08:42→21:18)
[2022-11-29] MEDS: FUROSEMIDE 40 MG TAB PO SCH (08:42)
[2022-11-29] MEDS: PANTOPRAZOLE 40 MG TABLET PO SCH ×2 (08:42→21:19)
[2022-11-29] MEDS: ENOXAPARIN 30 MG/0.3 ML SYRINGE SQ SCH (08:42)
[2022-11-29] MEDS: allopurinoL 100 MG TAB PO SCH ×2 (08:42→21:17)
[2022-11-29] MEDS: FLUoxetine HCL 20 MG CAP PO SCH ×2 (08:42→21:18)
--- NOTE | 2022-11-29 08:44 | P.PN ---
Subjective Progress Note Date: 11/27/22 Principal diagnosis: UTI/IV site phlebitis Patient is a 57-year-old female with a past medical history weekly for COPD diabetes mellitus admitted arthritis history of uterine cancer for the patient has received radiation therapy presenting to the hospital 5 days ago on 11/21/2022 for evaluation of vaginal bleeding in addition to the abdominal pain and leg pain, patient did have a Christina filter during this admission and also developed a low-grade fever. On today's evaluation that is 11/27/2022 the patient is afebrile she is breathing comfortably on 4 L nasal cannula oxygen no chest pain shortness of breath or cough patient did have a significant swelling or redness to the right upper arm at site of previous IV. No CBC or or BMP was done today, blood and urine cultures pending Objective - Vital Signs Vital signs: Vital Signs Temp 97.8 F 11/27/22 08:00 Pulse 104 H 11/27/22 08:00 Resp 18 11/27/22 08:00 BP 111/70 11/27/22 08:00 Pulse Ox 98 11/27/22 08:00 FiO2 Intake & Output 11/26/22 11/27/22 11/27/22 18:59 06:59 18:59 Intake Total 237 Balance 237 Intake: Oral 237 Other: # Voids 1 - Exam GENERAL DESCRIPTION: Middle-age female lying in bed in no distress RESPIRATORY SYSTEM: Unlabored breathing , decreased breath sounds at bases HEART: S1 S2 regular rate and rhythm ,no loud murmurs ABDOMEN: Soft , no tenderness EXTREMITIES: Left forearm previous IV site did have significant swelling redness no purulent drainage - Labs CBC & Chem 7: 11/28/22 06:14 11/28/22 06:14 Labs: Abnormal Lab Results - Last 24 Hours (Table) 11/26/22 11/26/22 11/26/22 Range/Units 06:00 11:46 17:23 Carbon Dioxide 20.0 L (21.6-31.8) mmol/L Anion Gap 15.00 H (4.00-12.00) mmol/L BUN 51.1 H (9.0-27.0) mg/dL Creatinine 2.3 H (0.6-1.5) mg/dL Est GFR (CKD-EPI) 24 L (>=60) BUN/Creatinine Ratio 22.22 H (12.00-20.00) Ratio Glucose 145 H (70-110) mg/dL POC Glucose (mg/dL) 250 H 282 H (70-110) mg/dL 11/26/22 11/27/22 Range/Units 19:57 05:55 Carbon Dioxide (21.6-31.8) mmol/L Anion Gap (4.00-12.00) mmol/L BUN (9.0-27.0) mg/dL Creatinine (0.6-1.5) mg/dL Est GFR (CKD-EPI) (>=60) BUN/Creatinine Ratio (12.00-20.00) Ratio Glucose (70-110) mg/dL POC Glucose (mg/dL) 176 H 198 H (70-110) mg/dL Microbiology - Last 24 Hours (Table) 11/25/22 15:05 Blood Culture - Preliminary Blood Assessment and Plan (1) IV site infection Current Visit: Yes Status: Acute Code(s): T82.7XXA - INFECT/INFLM REACT D/T OTH CARDI/VASC DEV/IMPLNT/GRFT, INIT SNOMED Code(s): 723285794 (2) Right arm cellulitis Current Visit: Yes Status: Acute Code(s): L03.113 - CELLULITIS OF RIGHT UPPER LIMB SNOMED Code(s): 347082606 (3) UTI (urinary tract infection) Current Visit: No Status: Acute Code(s): N39.0 - URINARY TRACT INFECTION, SITE NOT SPECIFIED SNOMED Code(s): 24588617 Plan: 1patient with a low-grade fever 100 F source is likely multifactorial in this patient who do have a history of endometrial cancer undergoing radiation therapy with concern for possible DVT and recently did have a inferior vena cava filter placement patient becoming some abdominal pain however no acute abnormality was noticed and no evidence of any pneumonia did have a positive UA concerning for possible symptomatic UTI from enteric gram-negative pathogen, Patient however was noted to have significant cellulitis to the right forearm site of previous IV and concern for possible gram-positive infection. 2patient did have renal insufficiency high risk of nephrotoxicity from vancomycin. 3we will add daptomycin while waiting for the blood culture to finalize antibiotic the area of the redness to the right forearm Dictation was produced using [employer] dictation software. please excuse any grammatical, word or spelling errors. Time with Patient: Less than 30
--- NOTE | 2022-11-29 08:45 | P.PN ---
Subjective Progress Note Date: 11/28/22 Principal diagnosis: UTI/IV site phlebitis Patient is a 57-year-old female with a past medical history weekly for COPD diabetes mellitus admitted arthritis history of uterine cancer for the patient has received radiation therapy presenting to the hospital 5 days ago on 11/21/2022 for evaluation of vaginal bleeding in addition to the abdominal pain and leg pain, patient did have a Christina filter during this admission and also developed a low-grade fever. On today's evaluation that is 11/28/2022 the patient denies any fever or any chills the patient is breathing comfortably 4 L nasal cannula oxygen denies any chest pain occasional cough no abdominal pain no diarrhea. Right forearm IV site swelling redness slightly decreased no drainage Patient did have a white count of 12.24 hemoglobin is 8.8 creatinine is 2.7 blood and urine cultures currently pending Objective - Vital Signs Vital signs: Vital Signs Temp 98.2 F 11/28/22 08:00 Pulse 100 11/28/22 08:45 Resp 18 11/28/22 08:00 BP 110/67 11/28/22 08:00 Pulse Ox 97 11/28/22 08:35 FiO2 Intake & Output 11/27/22 11/28/22 11/28/22 18:59 06:59 18:59 Intake Total 237 236 Output Total 0 500 Balance 237 0 -264 Intake: Oral 237 236 Output: Urine 0 500 Other: Voiding Method Diaper Incontinent External Catheter # Voids 2 1 1 # Bowel Movements 1 - Exam GENERAL DESCRIPTION: Middle-age female lying in bed in no distress RESPIRATORY SYSTEM: Unlabored breathing , decreased breath sounds at bases HEART: S1 S2 regular rate and rhythm ,no loud murmurs ABDOMEN: Soft , no tenderness EXTREMITIES: Left forearm previous IV site did have significant swelling redness no purulent drainage - Labs CBC & Chem 7: 11/28/22 06:14 11/28/22 06:14 Labs: Abnormal Lab Results - Last 24 Hours (Table) 11/27/22 11/27/22 11/27/22 Range/Units 10:17 12:33 17:45 POC Glucose (mg/dL) 139 H 183 H (70-110) mg/dL Procalcitonin 1.24 H (0.02-0.09) ng/mL 11/27/22 11/28/22 Range/Units 21:25 06:03 POC Glucose (mg/dL) 119 H 166 H (70-110) mg/dL Procalcitonin (0.02-0.09) ng/mL Microbiology - Last 24 Hours (Table) 11/25/22 15:05 Blood Culture - Preliminary Blood 11/26/22 15:14 Urine Culture - Preliminary Urine,Clean Catch Gram Neg Bacilli Assessment and Plan (1) IV site infection Current Visit: Yes Status: Acute Code(s): T82.7XXA - INFECT/INFLM REACT D/T OTH CARDI/VASC DEV/IMPLNT/GRFT, INIT SNOMED Code(s): 488622098 (2) Right arm cellulitis Current Visit: Yes Status: Acute Code(s): L03.113 - CELLULITIS OF RIGHT UPPER LIMB SNOMED Code(s): 077229190 (3) UTI (urinary tract infection) Current Visit: No Status: Acute Code(s): N39.0 - URINARY TRACT INFECTION, SITE NOT SPECIFIED SNOMED Code(s): 31124643 Plan: 1patient with a low-grade fever 100 F source is likely multifactorial in this patient who do have a history of endometrial cancer undergoing radiation therapy with concern for possible DVT and recently did have a inferior vena cava filter placement patient becoming some abdominal pain however no acute abnormality was noticed and no evidence of any pneumonia did have a positive UA concerning for possible symptomatic UTI from enteric gram-negative pathogen, Patient however was noted to have significant cellulitis to the right forearm site of previous IV and concern for possible gram-positive infection. 2patient did have renal insufficiency high risk of nephrotoxicity from vancomycin. 3Patient did have resolution of her fever right arm cellulitis is decreased in intensity continue with the daptomycin while waiting for the culture to finalize Dictation was produced using [employer] dictation software. please excuse any grammatical, word or spelling errors. Time with Patient: Less than 30
[2022-11-29] MEDS: CEFEPIME 2 GM in SODIUM CHLORIDE 0.9% 100 ML IVPB SCH ×2 (11:01→21:17)
[2022-11-29 11:07] LABS: Basophils # (A) 0.07 X 10*3/uL (0.00-0.10); Basophils % (A) 0.6 %; Eosinophils # (A) 0.58 X 10*3/uL (0.04-0.35); Eosinophils % (A) 4.9 %; HCT 28.8 % (37.2-46.3); Lymphocytes # (A) 2.65 X 10*3/uL (0.90-5.00); Lymphocytes % (A) 22.6 %; MCHC 31.3 d/dL (32.0-37.0); MCV 89.7 FL (80.0-97.0); Mean Platelet Volume 10.8 FL (9.5-12.2); Monocytes % (A) 8.5 %; NRBC Per 100 WBC 0 X 10*3/uL (0.00-0.01); Neutrophils % (A) 62.3 %; Platelet Count 375 X 10*3/uL (140-440); RBC 3.21 X 10*6/uL (4.10-5.20); RDW 13.5 % (11.5-14.5); WBC 11.73 X 10*3/uL (4.50-10.00)
[2022-11-29 11:54] LABS: Appearance,Urine Clear (Clear); Bilirubin,Urine Negative (Negative); Blood,Urine Negative (Negative); Budding Yeast,Urine Many /hpf; Color,Urine Light Yellow; Glucose,Urine (UA) 3+ (Negative); Ketones,Urine Negative (Negative); Leukocyte Esterase,Urine Moderate (Negative); Nitrite,Urine Negative (Negative); Protein,Urine Trace (Negative); RBC,Urine 8 /hpf (0-5); Specific Gravity,Urine 1.012 (1.001-1.035); Squamous Epithelial Cell,Urine 1 /hpf (0-4); Urobilinogen,Urine <2.0 mg/dL (<2.0); WBC,Urine 22 /hpf (0-5)
[2022-11-29 12:17] LABS: Glucose,Whole Blood 182 mg/dL (70-110)
[2022-11-29] MEDS: DAPTOmycin 350 MG in SODIUM CHLORIDE 0.9% 50 ML IVPB SCH ×2 (12:55→15:31)
[2022-11-29 13:19] LABS: BUN/Creat Ratio 19.44 Ratio (12.00-20.00); Blood Urea Nitrogen 62.2 mg/dL (9.0-27.0); Calcium 9.3 mg/dL (8.7-10.3); Carbon Dioxide 19.1 mmol/L (21.6-31.8); Chloride 110 mmol/L (96-109); Glucose 130 mg/dL (70-110); Potassium 4.8 mmol/L (3.5-5.5); Sodium 145 mmol/L (135-145)
--- NOTE | 2022-11-29 16:39 | P.PN ---
Subjective Progress Note Date: 11/29/22 Principal diagnosis: UTI/IV site phlebitis Patient is a 57-year-old female with a past medical history weekly for COPD diabetes mellitus admitted arthritis history of uterine cancer for the patient has received radiation therapy presenting to the hospital 5 days ago on 11/21/2022 for evaluation of vaginal bleeding in addition to the abdominal pain and leg pain, patient did have a Christina filter during this admission and also developed a low-grade fever. On today's evaluation that is 11/29/2022 the patient remains to be afebrile, the patient is breathing comfortably on 4 L nasal cannula oxygen denies any chest pain or shortness of occasional cough no bone pains have significant swelling and redness to the right wrist and forearm area but no drainage. Urinary symptoms has improved Patient did have a white count of 11.73, creatinine is 3.2 urine culture did grew drug-resistant Klebsiella Objective - Vital Signs Vital signs: Vital Signs Temp 98.5 F 11/29/22 07:39 Pulse 92 11/29/22 08:28 Resp 18 11/29/22 07:39 BP 102/57 11/29/22 07:39 Pulse Ox 98 11/29/22 08:28 FiO2 Intake & Output 11/28/22 11/29/22 11/29/22 18:59 06:59 18:59 Intake Total 236 222 Output Total 500 Balance -264 222 Weight 127.006 kg Intake: Oral 236 222 Output: Urine 500 Other: Voiding Method Diaper Bedside Commode Incontinent Diaper External Catheter External Catheter # Voids 1 2 # Bowel Movements 1 1 - Exam Medicines female up in the chair in no distress Respiratory system unable to be pending Right wrist and forearm did have swelling which seemed to be progressing into abscess clinically but no drainage - Labs CBC & Chem 7: 11/29/22 06:14 11/29/22 06:14 Labs: Abnormal Lab Results - Last 24 Hours (Table) 11/28/22 11/28/22 11/28/22 Range/Units 06:14 12:48 20:02 WBC (4.50-10.00) X 10*3/uL RBC (4.10-5.20) X 10*6/uL Hgb (12.0-15.0) d/dL Hct (37.2-46.3) % MCHC (32.0-37.0) d/dL Eosinophils # (0.04-0.35) X 10*3/uL POC Glucose (mg/dL) 154 H 117 H (70-110) mg/dL Iron 41 L (50-170) UG/DL Transferrin 179.0 L (204.0-354.0) mg/dL Ferritin 531.0 H (10.0-291.0) ng/mL 11/29/22 11/29/22 Range/Units 06:12 06:14 WBC 11.73 H (4.50-10.00) X 10*3/uL RBC 3.21 L (4.10-5.20) X 10*6/uL Hgb 9.0 L (12.0-15.0) d/dL Hct 28.8 L (37.2-46.3) % MCHC 31.3 L (32.0-37.0) d/dL Eosinophils # 0.58 H (0.04-0.35) X 10*3/uL POC Glucose (mg/dL) 169 H (70-110) mg/dL Iron (50-170) UG/DL Transferrin (204.0-354.0) mg/dL Ferritin (10.0-291.0) ng/mL Microbiology - Last 24 Hours (Table) 11/25/22 15:05 Blood Culture - Preliminary Blood 11/26/22 15:14 Urine Culture - Final Urine,Clean Catch Klebsiella pneumoniae Assessment and Plan (1) IV site infection Current Visit: Yes Status: Acute Code(s): T82.7XXA - INFECT/INFLM REACT D/T OTH CARDI/VASC DEV/IMPLNT/GRFT, INIT SNOMED Code(s): 325723533 (2) Right arm cellulitis Current Visit: Yes Status: Acute Code(s): L03.113 - CELLULITIS OF RIGHT UPPER LIMB SNOMED Code(s): 885333469 (3) UTI (urinary tract infection) Current Visit: No Status: Acute Code(s): N39.0 - URINARY TRACT INFECTION, SITE NOT SPECIFIED SNOMED Code(s): 75410184 Plan: 1patient with a low-grade fever 100 F source is likely multifactorial in this patient who do have a history of endometrial cancer undergoing radiation therapy with concern for possible DVT and recently did have a inferior vena cava filter placement patient becoming some abdominal pain however no acute abnormality was noticed and no evidence of any pneumonia did have a positive UA concerning for possible symptomatic UTI from enteric gram-negative pathogen, Patient however was noted to have significant cellulitis to the right forearm site of previous IV and concern for possible gram-positive infection. 2patient did have renal insufficiency high risk of nephrotoxicity from vancomycin. 3Patient urine did grow drug-resistant Klebsiella repeat UA has been requested anybody switched to cefepime however her main concern remains to be the right forearm IV site cellulitis and possibly progressing into abscess we will apply warm compresses to the area and if started to drain to get cultures and continue the daptomycin discussed with the admitting team Dictation was produced using [employer] dictation software. please excuse any grammatical, word or spelling errors. Time with Patient: Less than 30
[2022-11-29 17:23] LABS: Glucose,Whole Blood 176 mg/dL (70-110)
--- NOTE | 2022-11-29 19:55 | P.PN ---
Subjective Progress Note Date: 11/29/22 This is a 57-year-old female who was recently admitted vaginal bleeding with history of endometrial carcinoma and follows with [facility] outpatient. Patient has been seen and evaluated by Dr. Euceda gynecology oncology undergoing presurgical clearance although has not been approved for surgical intervention by endocrine as her diabetes is extremely uncontrolled and her hemoglobin A1c is above 12. Patient is noncompliant with medications and follow-up and continues to have multiple hospitalizations regarding this. Patient was maintained on anticoagulation for DVT and suspected PEs and has been off and on eliquis and Xarelto with hematology/oncology Dr. Martin following. Attempted to transfer the patient to [facility] for tertiary treatment although was denied as patient is considered stable and vaginal bleeding is marginal and hemoglobin remained stable. Vascular surgery was placed on consult and patient is scheduled to undergo IVC filter placement today. Patient also following with cardiology and nephrology outpatient in regards to her surgical clearance as well. 11/26/2022 Patient is seen and evaluated in follow-up this morning and has been having low- grade temps reporting pain and burning with urination and urinalysis was obtained and will send for culture. Will initiate ceftriaxone. Chest x-ray ordered and showed findings of most likely atelectasis and a concern for a lucency within the central abdomen recommending abdominal series. Abdomen x-ray was ordered showing limited due to body habitus but reporting some dilated loops of bowel in the upper abdomen within left abdomen which could represent obstruction and recommending CT abdomen. CT abdomen is ordered and pending. Patient reports she continues to have pain and burning with urination and also reports has not had a bowel movement in 4 days. Patient was given a dose of ceftriaxone and will send for urine culture and also consult infectious disease and appreciate input and recommendations as patient has had previous urinary tract infections with resistance. 11/27/2022 Patient is seen this morning lying in bed and patient reports she was just out of bed and per nursing staff patient is mostly in the bed throughout the whole day. Patient being followed by infectious disease maintained on antibiotics and awaiting urine cultures with preliminary showing gram-negative bacilli. Patient continues to report pain and burning with urination and adding Pyridium as needed for symptoms. Patient also reports to feeling like she is having memory issues and her speech is garbled. Patient evaluated on the phone prior to going in the room with normal speech and absolutely no aphasia or slurred speech as patient was having a full conversation. Will obtain computed tomography scan. Patient is afebrile denies chest pain or worsening shortness of breath. Patient is maintained on breathing inhalational treatments as she chronically uses and continues on her 4 L of oxygen. Patient has been encouraged to increase activity as tolerated. 11/28/2022 Patient is seen in follow-up today currently sitting up in the chair which is the first time I've seen her in the chair this admission. Patient continues to report symptoms of burning and pain with urination and is maintained on antibiotics and awaiting finalized cultures to determine discharge antibiotics. Infectious disease following and patient was started on daptomycin preliminary showing gram-negative bacilli. Will follow-up with lab finalized cultures sometime this evening. Patient is afebrile denies worsening shortness of breath or chest pains. Patient reports some mild vaginal bleeding and nothing worsened. Patient is status post IVC filter placement and is maintained on subcutaneous Lovenox. Patient resume low-dose oral anticoagulant on discharge. Patient does have follow-up appointment in the beginning of December with [facility]. Will follow-up with repeat labs and if hemoglobin is less will transfuse. Hemoglobin is stable at 8.8 today. Anemia workup for iron deficiency in progress. Hematology/oncology following. 11/29/2022 Patient is seen and evaluated in follow-up today maintained on IV antibiotics an d urine cultures finalized with Klebsiella pneumonia with some resistance and repeat urinalysis ordered per infectious disease recommendations. There is also concern of right forearm and wrist developing cellulitis from recent IV sites that appear erythematous and inflamed. Per ID recommendations, patient will continue on warm compresses and if there is drainage to obtain a culture. Patient reports improvement in urinary symptoms and denies burning and pain with frequency. Patient is also maintained on Pyridium as needed. Patient is afebrile with no reports of worsening shortness of breath or chest pains. Patient is tolerating diet and blood sugars controlled on current regimen. Hemoglobin is 9 today. Review of systems: Constitutional: No reports of fatigue, reports fever, or chills Cardiovascular: No reports of chest pain or palpitations Respiratory: No reports of worsening shortness of breath or cough GI: No reports of nausea, no reports of vomiting, no diarrhea : reports of improvements in dysuria and pain with urination Neurovascular: reports of generalized weakness All medications have been reviewed PHYSICAL EXAMINATION: GENERAL: The patient is alert and oriented x4, Well developed, well nourished. Morbidly obese HEENT: Pupils are round and equally reacting to light. EOMI. no scleral icterus. No conjunctival pallor. Normocephalic, atraumatic. No pharyngeal erythema. No thyromegaly. CARDIOVASCULAR: S1 and S2 muffled PULMONARY: diminished breath sounds bilaterally with some scattered rhonchi noted. ABDOMEN: soft. tender lower quadrants bilaterally on exam. obese. non- distended, normoactive bowel sounds. No palpable organomegaly. MUSCULOSKELETAL: No joint swelling or deformity. EXTREMITIES: No cyanosis, clubbing, or pedal edema. Chronic upper and lower extremity edema nonpitting , improved NEUROLOGICAL: Gross neurological examination did not reveal any focal deficits. Diffuse weakness SKIN: No rashes. Assessment: Right forearm and wrist cellulitis secondary to recent IV sites with redness and inflammation noted Vaginal bleeding, secondary to endometrial cancer with acute blood loss anemia Pain and burning with urination, acute urinary tract infection, present on admission cultures growing Klebsiella pneumonia with resistance Diabetes mellitus, type II, insulin-dependent uncontrolled with hyperglycemia Leukocytosis with Acute fever, multifactorial possibly secondary to acute urinary tract infection and concerns of right forearm and wrist cellulitis from IV sites Chronic kidney disease stage III History of COPD, not in exacerbation Chronic hypoxic respiratory failure secondary to COPD wears 4 L outpatient History of recent pulmonary embolism, Left upper lobe posterior perfusion defect consistent with pulmonary embolism as noted on VQ scan on previous admission in October 2022 History of deep vein thrombosis and PE, was maintained on anticoagulation, status post IVC filter placement 11/25/2022 Hypertension history History of rheumatoid arthritis History of lupus History of leukemia History of anxiety Morbid obesity with a BMI of 45.2 GI prophylaxis DVT prophylaxis Full code Plan: Patient had IVC filter placed with vascular surgery and has been cleared and vascular has signed off. Per hematology patient will continue on low-dose oral anticoagulant on discharge and close outpatient follow-up Is having some right forearm and wrist cellulitis were previous IV sites were with erythema and swelling noted with infectious disease following an aware recommending warm compresses as there is no drainage noted. Patient continued on daptomycin currently in urine cultures finalized showing Klebsiella pneumonia with resistance. Repeat urinalysis ordered and pending. Hopeful for oral antibiotics on discharge in the form of doxycycline Patient follow-up with Dr. Barker out of [facility] gynecology oncology for further evaluation and possible surgical intervention Will continue sliding scale and Accu-Cheks before meals and at bedtime along with long-acting Encouraged incentive spirometer use and encouraging increased activity as tolerated. Patient has been afebrile for 24 hours Will obtain repeat labs in the a.m. Possible discharge in the next 24-48 hours The impression and plan of care has been dictated by Fabienne Fortune, nurse practitioner as directed. Dr. David MD I have performed a history and examination and MDM of this patient, discussed the same with the dictator, and agree with the dictator's assessment and plan as written ,documented as a scribe. Based on total visit time, I have performed more than 50% of the visit. Any additional findings or plans will be noted. Objective - Vital Signs Vital signs: Vital Signs Temp 98.5 F 11/29/22 07:39 Pulse 92 11/29/22 08:28 Resp 18 11/29/22 07:39 BP 102/57 11/29/22 07:39 Pulse Ox 98 11/29/22 08:28 FiO2 Intake & Output 11/28/22 11/29/22 11/29/22 18:59 06:59 18:59 Intake Total 236 222 Output Total 500 Balance -264 222 Weight 127.006 kg Intake: Oral 236 222 Output: Urine 500 Other: Voiding Method Diaper Bedside Commode Incontinent Diaper External Catheter External Catheter # Voids 1 2 # Bowel Movements 1 1 - Labs CBC & Chem 7: 11/29/22 06:14 11/29/22 06:14 Labs: Abnormal Lab Results - Last 24 Hours (Table) 11/28/22 11/28/22 11/28/22 Range/Units 06:14 06:14 06:14 WBC 12.24 H (4.50-10.00) X 10*3/uL RBC 3.10 L (4.10-5.20) X 10*6/uL Hgb 8.8 L (12.0-15.0) d/dL Hct 27.8 L (37.2-46.3) % MCHC 31.7 L (32.0-37.0) d/dL Neutrophils # 8.02 H (1.80-7.70) X 10*3/uL Monocytes # 1.12 H (0.20-1.00) X 10*3/uL Eosinophils # 0.54 H (0.04-0.35) X 10*3/uL Carbon Dioxide 19.2 L (21.6-31.8) mmol/L Anion Gap 15.80 H (4.00-12.00) mmol/L BUN 58.4 H (9.0-27.0) mg/dL Creatinine 2.7 H (0.6-1.5) mg/dL Est GFR (CKD-EPI) 20 L (>=60) BUN/Creatinine Ratio 21.63 H (12.00-20.00) Ratio Glucose 157 H (70-110) mg/dL POC Glucose (mg/dL) (70-110) mg/dL Iron 41 L (50-170) UG/DL Transferrin 179.0 L (204.0-354.0) mg/dL Ferritin 531.0 H (10.0-291.0) ng/mL 11/28/22 11/28/22 11/29/22 Range/Units 12:48 20:02 06:12 WBC (4.50-10.00) X 10*3/uL RBC (4.10-5.20) X 10*6/uL Hgb (12.0-15.0) d/dL Hct (37.2-46.3) % MCHC (32.0-37.0) d/dL Neutrophils # (1.80-7.70) X 10*3/uL Monocytes # (0.20-1.00) X 10*3/uL Eosinophils # (0.04-0.35) X 10*3/uL Carbon Dioxide (21.6-31.8) mmol/L Anion Gap (4.00-12.00) mmol/L BUN (9.0-27.0) mg/dL Creatinine (0.6-1.5) mg/dL Est GFR (CKD-EPI) (>=60) BUN/Creatinine Ratio (12.00-20.00) Ratio Glucose (70-110) mg/dL POC Glucose (mg/dL) 154 H 117 H 169 H (70-110) mg/dL Iron (50-170) UG/DL Transferrin (204.0-354.0) mg/dL Ferritin (10.0-291.0) ng/mL Microbiology - Last 24 Hours (Table) 11/25/22 15:05 Blood Culture - Preliminary Blood 11/26/22 15:14 Urine Culture - Final Urine,Clean Catch Klebsiella pneumoniae
[2022-11-29 20:07] LABS: Glucose,Whole Blood 219 mg/dL (70-110)
[2022-11-29] MEDS: MONTELUKAST 10 MG TAB PO SCH (21:19)
[2022-11-30] MEDS: IPRATROPIUM-ALBUTEROL 3 ML NEB INHALATION SCH ×6 (04:03→23:31)
[2022-11-30] MEDS: INSULIN DETEMIR (LEVEMIR) 100 UNIT/ML SYR SQ SCH ×2 (06:25→20:48)
[2022-11-30 06:30] LABS: Glucose,Whole Blood 222 mg/dL (70-110)
[2022-11-30] MEDS: CEFEPIME 2 GM in SODIUM CHLORIDE 0.9% 100 ML IVPB SCH ×2 (09:09→20:46)
[2022-11-30] MEDS: FUROSEMIDE 40 MG TAB PO SCH (09:10)
[2022-11-30] MEDS: allopurinoL 100 MG TAB PO SCH ×2 (09:10→20:48)
[2022-11-30] MEDS: ENOXAPARIN 30 MG/0.3 ML SYRINGE SQ SCH (09:10)
[2022-11-30] MEDS: PANTOPRAZOLE 40 MG TABLET PO SCH ×2 (09:10→20:48)
[2022-11-30] MEDS: hydrOXYzine HCL 25 MG TAB PO SCH ×4 (09:10→20:48)
[2022-11-30] MEDS: GABAPENTIN 300 MG CAP PO SCH ×2 (09:10→20:48)
[2022-11-30] MEDS: FLUoxetine HCL 20 MG CAP PO SCH ×2 (09:10→20:48)
[2022-11-30] MEDS: METOPROLOL TARTRATE 12.5 MG TAB PO SCH (09:10)
[2022-11-30] MEDS: HYDROXYCHLOROQUINE SULFATE 200 MG TAB PO SCH ×2 (09:10→20:47)
[2022-11-30] MEDS: SENNOSIDES 8.6 MG TAB PO SCH ×2 (09:11→20:48)
[2022-11-30] MEDS: DAPAGLIFLOZIN PROPANEDIOL 5 MG TABLET PO SCH (09:11)
[2022-11-30] MEDS: INSULIN ASPART (NovoLOG) 100 UNIT/ML VIAL SQ SCH ×7 (09:11→20:56)
[2022-11-30 11:33] LABS: Glucose,Whole Blood 256 mg/dL (70-110)
[2022-11-30] MEDS: HYDROcodone/APAP 5-325MG 1 EACH TAB PO PRN ×2 (14:59→20:56)
--- NOTE | 2022-11-30 15:33 | P.PN ---
Subjective Progress Note Date: 11/30/22 Principal diagnosis: UTI/IV site phlebitis Patient is a 57-year-old female with a past medical history weekly for COPD diabetes mellitus admitted arthritis history of uterine cancer for the patient has received radiation therapy presenting to the hospital 5 days ago on 11/21/2022 for evaluation of vaginal bleeding in addition to the abdominal pain and leg pain, patient did have a Christina filter during this admission and also developed a low-grade fever. On today's evaluation that is 11/30/2022 the patient remains to be afebrile the patient is breathing comfortably on 4 L nasal cannula oxygen no chest pain shortness of breath or occasional cough some vague abdominal symptoms nausea but no vomiting no diarrhea still complaining of pain and swelling to the right forearm previous IV site but no drainage Objective - Vital Signs Vital signs: Vital Signs Temp 98.3 F 11/30/22 08:00 Pulse 106 H 11/30/22 08:00 Resp 20 11/30/22 08:00 BP 139/70 11/30/22 08:00 Pulse Ox 99 11/30/22 08:00 FiO2 Intake & Output 11/29/22 11/30/22 11/30/22 18:59 06:59 18:59 Intake Total 444 300 Output Total 181 883 0536 Balance - Intake: Intake, IV Titration 300 Amount Cefepime 2 gm In Sodium 100 Chloride 0.9% 100 ml @ 25 mls/hr IVPB Q12HR [facility] Rx #:[id number] Sodium Chloride 0.9% 250 200 ml @ 0 mls/hr IV .STK-[facility] ONE Rx#:[id number] Oral 444 Output: Urine 347 [id number] Other: Voiding Method Bedside Commode Diaper # Voids 1 # Bowel Movements 1 - Exam Medicines female up in the chair in no distress Respiratory system unable to be pending Right wrist and forearm did have swelling which seemed to be progressing into abscess clinically but no drainage - Labs CBC & Chem 7: 11/29/22 06:14 11/29/22 06:14 Labs: Abnormal Lab Results - Last 24 Hours (Table) 11/29/22 11/29/22 11/29/22 Range/Units 06:14 06:14 11:30 WBC 11.73 H (4.50-10.00) X 10*3/uL RBC 3.21 L (4.10-5.20) X 10*6/uL Hgb 9.0 L (12.0-15.0) d/dL Hct 28.8 L (37.2-46.3) % MCHC 31.3 L (32.0-37.0) d/dL Eosinophils # 0.58 H (0.04-0.35) X 10*3/uL Chloride 110 H (96-109) mmol/L Carbon Dioxide 19.1 L (21.6-31.8) mmol/L Anion Gap 15.90 H (4.00-12.00) mmol/L BUN 62.2 H (9.0-27.0) mg/dL Creatinine 3.2 H (0.6-1.5) mg/dL Est GFR (CKD-EPI) 16 L (>=60) Glucose 130 H (70-110) mg/dL POC Glucose (mg/dL) (70-110) mg/dL Urine Protein Trace H (Negative) Urine Glucose (UA) 3+ H (Negative) Ur Leukocyte Esterase Moderate H (Negative) Urine RBC 8 H (0-5) /hpf Urine WBC 22 H (0-5) /hpf Urine Yeast (Budding) Many H (None) /hpf 11/29/22 11/29/22 11/29/22 Range/Units 12:16 17:22 20:06 WBC (4.50-10.00) X 10*3/uL RBC (4.10-5.20) X 10*6/uL Hgb (12.0-15.0) d/dL Hct (37.2-46.3) % MCHC (32.0-37.0) d/dL Eosinophils # (0.04-0.35) X 10*3/uL Chloride (96-109) mmol/L Carbon Dioxide (21.6-31.8) mmol/L Anion Gap (4.00-12.00) mmol/L BUN (9.0-27.0) mg/dL Creatinine (0.6-1.5) mg/dL Est GFR (CKD-EPI) (>=60) Glucose (70-110) mg/dL POC Glucose (mg/dL) 182 H 176 H 219 H (70-110) mg/dL Urine Protein (Negative) Urine Glucose (UA) (Negative) Ur Leukocyte Esterase (Negative) Urine RBC (0-5) /hpf Urine WBC (0-5) /hpf Urine Yeast (Budding) (None) /hpf 11/30/22 Range/Units 06:29 WBC (4.50-10.00) X 10*3/uL RBC (4.10-5.20) X 10*6/uL Hgb (12.0-15.0) d/dL Hct (37.2-46.3) % MCHC (32.0-37.0) d/dL Eosinophils # (0.04-0.35) X 10*3/uL Chloride (96-109) mmol/L Carbon Dioxide (21.6-31.8) mmol/L Anion Gap (4.00-12.00) mmol/L BUN (9.0-27.0) mg/dL Creatinine (0.6-1.5) mg/dL Est GFR (CKD-EPI) (>=60) Glucose (70-110) mg/dL POC Glucose (mg/dL) 222 H (70-110) mg/dL Urine Protein (Negative) Urine Glucose (UA) (Negative) Ur Leukocyte Esterase (Negative) Urine RBC (0-5) /hpf Urine WBC (0-5) /hpf Urine Yeast (Budding) (None) /hpf Assessment and Plan (1) IV site infection Current Visit: Yes Status: Acute Code(s): T82.7XXA - INFECT/INFLM REACT D/T OTH CARDI/VASC DEV/IMPLNT/GRFT, INIT SNOMED Code(s): 481758705 (2) Right arm cellulitis Current Visit: Yes Status: Acute Code(s): L03.113 - CELLULITIS OF RIGHT UPPER LIMB SNOMED Code(s): 906470528 (3) UTI (urinary tract infection) Current Visit: No Status: Acute Code(s): N39.0 - URINARY TRACT INFECTION, SITE NOT SPECIFIED SNOMED Code(s): 88590453 Plan: 1patient with a low-grade fever 100 F source is likely multifactorial in this patient who do have a history of endometrial cancer undergoing radiation therapy with concern for possible DVT and recently did have a inferior vena cava filter placement patient becoming some abdominal pain however no acute abnormality was noticed and no evidence of any pneumonia did have a positive UA concerning for possible symptomatic UTI from enteric gram-negative pathogen, Patient however w as noted to have significant cellulitis to the right forearm site of previous IV and concern for possible gram-positive infection. 2patient did have renal insufficiency high risk of nephrotoxicity from vancomycin. 3Patient urine did grow drug-resistant Klebsiella repeat UA Came back mildly positive with a cultures currently pending. 4patient did have right forearm IV previous IV site cellulitis concerning for possible developing abscess however has seem to have not matured yet patient to continue with the daptomycin and cultures will be obtained if the area started to drain and monitor clinical course closely Dictation was produced using [employer] dictation software. please excuse any gramma tical, word or spelling errors.
[2022-11-30 17:14] LABS: Glucose,Whole Blood 137 mg/dL (70-110)
[2022-11-30 20:48] LABS: Glucose,Whole Blood 199 mg/dL (70-110)
[2022-11-30] MEDS: MONTELUKAST 10 MG TAB PO SCH (20:48)
[2022-12-01] MEDS: IPRATROPIUM-ALBUTEROL 3 ML NEB INHALATION SCH ×6 (03:37→23:19)
[2022-12-01 06:07] LABS: Glucose,Whole Blood 168 mg/dL (70-110)
[2022-12-01] MEDS: INSULIN ASPART (NovoLOG) 100 UNIT/ML VIAL SQ SCH ×7 (06:13→20:41)
[2022-12-01] MEDS: INSULIN DETEMIR (LEVEMIR) 100 UNIT/ML SYR SQ SCH ×2 (06:13→20:40)
[2022-12-01] MEDS: HYDROcodone/APAP 5-325MG 1 EACH TAB PO PRN ×2 (06:19→21:00)
[2022-12-01] MEDS: allopurinoL 100 MG TAB PO SCH ×2 (09:25→20:40)
[2022-12-01] MEDS: PANTOPRAZOLE 40 MG TABLET PO SCH ×2 (09:25→20:40)
[2022-12-01] MEDS: FUROSEMIDE 40 MG TAB PO SCH (09:25)
[2022-12-01] MEDS: METOPROLOL TARTRATE 12.5 MG TAB PO SCH (09:25)
[2022-12-01] MEDS: DAPAGLIFLOZIN PROPANEDIOL 5 MG TABLET PO SCH (09:25)
[2022-12-01] MEDS: SENNOSIDES 8.6 MG TAB PO SCH ×2 (09:25→20:40)
[2022-12-01] MEDS: hydrOXYzine HCL 25 MG TAB PO SCH ×4 (09:25→21:00)
[2022-12-01] MEDS: GABAPENTIN 300 MG CAP PO SCH (09:25)
[2022-12-01] MEDS: ENOXAPARIN 30 MG/0.3 ML SYRINGE SQ SCH (09:26)
[2022-12-01] MEDS: FLUoxetine HCL 20 MG CAP PO SCH ×2 (09:26→20:40)
[2022-12-01] MEDS: HYDROXYCHLOROQUINE SULFATE 200 MG TAB PO SCH ×2 (09:26→20:40)
[2022-12-01] MEDS: CEFEPIME 2 GM in SODIUM CHLORIDE 0.9% 100 ML IVPB SCH (09:26)
--- NOTE | 2022-12-01 09:54 | P.PN ---
Subjective Progress Note Date: 11/30/22 This is a 57-year-old female who was recently admitted vaginal bleeding with history of endometrial carcinoma and follows with [facility] outpatient. Patient has been seen and evaluated by Dr. Euceda gynecology oncology undergoing presurgical clearance although has not been approved for surgical intervention by endocrine as her diabetes is extremely uncontrolled and her hemoglobin A1c is above 12. Patient is noncompliant with medications and follow-up and continues to have multiple hospitalizations regarding this. Patient was maintained on anticoagulation for DVT and suspected PEs and has been off and on eliquis and Xarelto with hematology/oncology Dr. Martin following. Attempted to transfer the patient to [facility] for tertiary treatment although was denied as patient is considered stable and vaginal bleeding is marginal and hemoglobin remained stable. Vascular surgery was placed on consult and patient is scheduled to undergo IVC filter placement today. Patient also following with cardiology and nephrology outpatient in regards to her surgical clearance as well. 11/26/2022 Patient is seen and evaluated in follow-up this morning and has been having low- grade temps reporting pain and burning with urination and urinalysis was obtained and will send for culture. Will initiate ceftriaxone. Chest x-ray ordered and showed findings of most likely atelectasis and a concern for a lucency within the central abdomen recommending abdominal series. Abdomen x-ray was ordered showing limited due to body habitus but reporting some dilated loops of bowel in the upper abdomen within left abdomen which could represent obstruction and recommending CT abdomen. CT abdomen is ordered and pending. Patient reports she continues to have pain and burning with urination and also reports has not had a bowel movement in 4 days. Patient was given a dose of ceftriaxone and will send for urine culture and also consult infectious disease and appreciate input and recommendations as patient has had previous urinary tract infections with resistance. 11/27/2022 Patient is seen this morning lying in bed and patient reports she was just out of bed and per nursing staff patient is mostly in the bed throughout the whole day. Patient being followed by infectious disease maintained on antibiotics and awaiting urine cultures with preliminary showing gram-negative bacilli. Patient continues to report pain and burning with urination and adding Pyridium as needed for symptoms. Patient also reports to feeling like she is having memory issues and her speech is garbled. Patient evaluated on the phone prior to going in the room with normal speech and absolutely no aphasia or slurred speech as patient was having a full conversation. Will obtain computed tomography scan. Patient is afebrile denies chest pain or worsening shortness of breath. Patient is maintained on breathing inhalational treatments as she chronically uses and continues on her 4 L of oxygen. Patient has been encouraged to increase activity as tolerated. 11/28/2022 Patient is seen in follow-up today currently sitting up in the chair which is the first time I've seen her in the chair this admission. Patient continues to report symptoms of burning and pain with urination and is maintained on antibiotics and awaiting finalized cultures to determine discharge antibiotics. Infectious disease following and patient was started on daptomycin preliminary showing gram-negative bacilli. Will follow-up with lab finalized cultures sometime this evening. Patient is afebrile denies worsening shortness of breath or chest pains. Patient reports some mild vaginal bleeding and nothing worsened. Patient is status post IVC filter placement and is maintained on subcutaneous Lovenox. Patient resume low-dose oral anticoagulant on discharge. Patient does have follow-up appointment in the beginning of December with [facility]. Will follow-up with repeat labs and if hemoglobin is less will transfuse. Hemoglobin is stable at 8.8 today. Anemia workup for iron deficiency in progress. Hematology/oncology following. 11/29/2022 Patient is seen and evaluated in follow-up today maintained on IV antibiotics an d urine cultures finalized with Klebsiella pneumonia with some resistance and repeat urinalysis ordered per infectious disease recommendations. There is also concern of right forearm and wrist developing cellulitis from recent IV sites that appear erythematous and inflamed. Per ID recommendations, patient will continue on warm compresses and if there is drainage to obtain a culture. Patient reports improvement in urinary symptoms and denies burning and pain with frequency. Patient is also maintained on Pyridium as needed. Patient is afebrile with no reports of worsening shortness of breath or chest pains. Patient is tolerating diet and blood sugars controlled on current regimen. Hemoglobin is 9 today. 11/30/2022 Patient is seen in follow-up today being continued on IV antibiotics in the form of daptomycin and infectious disease following. Patient continues with some right wrist and forearm erythema and swelling although is improving and redness is going down. No drainage noted and there has not been cultures. Patient not reporting any further discomfort with urination and repeat urine cultures pending. Patient is afebrile with no reports of chest pain or worsening shor tness of breath. Patient is tolerating diet and blood sugars are better controlled. Will continue current regimen. Review of systems: Constitutional: No reports of fatigue, reports fever, or chills Cardiovascular: No reports of chest pain or palpitations Respiratory: No reports of worsening shortness of breath or cough GI: No reports of nausea, no reports of vomiting, no diarrhea : reports of improvements in dysuria and pain with urination Neurovascular: reports of generalized weakness All medications have been reviewed PHYSICAL EXAMINATION: GENERAL: The patient is alert and oriented x4, Well developed, well nourished. Morbidly obese HEENT: Pupils are round and equally reacting to light. EOMI. no scleral icterus. No conjunctival pallor. Normocephalic, atraumatic. No pharyngeal erythema. No thyromegaly. CARDIOVASCULAR: S1 and S2 muffled PULMONARY: diminished breath sounds bilaterally with some scattered rhonchi noted. ABDOMEN: soft. tender lower quadrants bilaterally on exam. obese. non- distended, normoactive bowel sounds. No palpable organomegaly. MUSCULOSKELETAL: No joint swelling or deformity. EXTREMITIES: No cyanosis, clubbing, or pedal edema. Chronic upper and lower extremity edema nonpitting , improved , right wrist and forearm with some erythema and swelling and was marked showing some improvement in erythema and the swelling has gone down some NEUROLOGICAL: Gross neurological examination did not reveal any focal deficits. Diffuse weakness SKIN: No rashes. Assessment: Right forearm and wrist cellulitis secondary to recent IV sites with redness and inflammation noted Vaginal bleeding, secondary to endometrial cancer with acute blood loss anemia Pain and burning with urination, acute urinary tract infection, present on admission cultures growing Klebsiella pneumonia with resistance Diabetes mellitus, type II, insulin-dependent uncontrolled with hyperglycemia Leukocytosis with Acute fever, multifactorial possibly secondary to acute ur inary tract infection and concerns of right forearm and wrist cellulitis from IV sites Chronic kidney disease stage III History of COPD, not in exacerbation Chronic hypoxic respiratory failure secondary to COPD wears 4 L outpatient History of recent pulmonary embolism, Left upper lobe posterior perfusion defect consistent with pulmonary embolism as noted on VQ scan on previous admission in October 2022 History of deep vein thrombosis and PE, was maintained on anticoagulation, status post IVC filter placement 11/25/2022 Hypertension history History of rheumatoid arthritis History of lupus History of leukemia History of anxiety Morbid obesity with a BMI of 45.2 GI prophylaxis DVT prophylaxis Full code Plan: Patient had IVC filter placed with vascular surgery and has been cleared and vascular has signed off. Per hematology patient will continue on low-dose oral anticoagulant on discharge and close outpatient follow-up Continues to have some right forearm and wrist cellulitis were previous IV sites were with erythema and swelling noted with infectious disease following an aware recommending warm compresses as there is no drainage noted. Patient continued on daptomycin currently in urine cultures finalized showing Klebsiella pneumonia with resistance. Repeat urinalysis with culture pending. Hopeful for oral antibiotics on discharge in the form of doxycycline Patient follow-up with Dr. Barker out of [facility] gynecology oncology for further evaluation and possible surgical intervention Will continue sliding scale and Accu-Cheks before meals and at bedtime along with long-acting Encouraged incentive spirometer use and encouraging increased activity as tolerated. Patient has been afebrile for 48 hours CONTINUES with concerns of right forearm and wrist cellulitis more so than UTI symptoms of dysuria and pain have resolved. Patient continues to have some redness and swelling of the wrist although has been no drainage. Patient is continued on warm compresses per ID r ecommendations and will continue antibiotics. Monitor closely for another 24 hours for improvements of symptoms of cellulitis Possible discharge in the next 24-48 hours The impression and plan of care has been dictated as a scribe by Fabienne Fortune, nurse practitioner as directed. Dr. David MD I have performed a history and examination and MDM of this patient, discussed the same with the dictator, and will be documented as a scribe. Based on total visit time, I have performed more than 50% of the visit. Any additional findings or plans will be noted. Objective - Vital Signs Vital signs: Vital Signs Temp 98 F 11/30/22 14:00 Pulse 101 H 11/30/22 14:00 Resp 20 11/30/22 14:00 BP 129/67 11/30/22 14:00 Pulse Ox 98 11/30/22 14:00 FiO2 Intake & Output 11/29/22 11/30/22 11/30/22 18:59 06:59 18:59 Intake Total 444 300 360 Output Total 470 567 9061 Balance -356 -50 -760 Intake: Intake, IV Titration 300 Amount Cefepime 2 gm In Sodium 100 Chloride 0.9% 100 ml @ 25 mls/hr IVPB Q12HR [facility] Rx #:[id number] Sodium Chloride 0.9% 250 200 ml @ 0 mls/hr IV .[facility] ONE Rx#:[id number] Oral 444 360 Output: Urine 535 [id number] Other: Voiding Method Bedside Commode Diaper # Voids 1 2 # Bowel Movements 1 - Labs CBC & Chem 7: 11/29/22 06:14 11/29/22 06:14 Labs: Abnormal Lab Results - Last 24 Hours (Table) 11/29/22 11/29/22 11/30/22 Range/Units 17:22 20:06 06:29 POC Glucose (mg/dL) 176 H 219 H 222 H (70-110) mg/dL 11/30/22 Range/Units 11:29 POC Glucose (mg/dL) 256 H (70-110) mg/dL
[2022-12-01 11:27] LABS: African American GFR (CKD) 24 (>60 ml/min/1.73 sqM); Anion Gap 11 mmol/L; Blood Urea Nitrogen 62 mg/dL (7-17); Calcium 8.9 mg/dL (8.4-10.2); Carbon Dioxide 18 mmol/L (22-30); Chloride 113 mmol/L (98-107); Glucose 156 mg/dL (74-99); Non-African American GFR(CKD) 21 (>60 ml/min/1.73 sqM); Potassium 4.7 mmol/L (3.5-5.1); Sodium 142 mmol/L (137-145)
--- NOTE | 2022-12-01 11:32 | P.PN ---
Subjective Progress Note Date: 12/01/22 This is a 57-year-old female who was recently admitted vaginal bleeding with history of endometrial carcinoma and follows with [facility] outpatient. Patient has been seen and evaluated by Dr. Euceda gynecology oncology undergoing presurgical clearance although has not been approved for surgical intervention by endocrine as her diabetes is extremely uncontrolled and her hemoglobin A1c is above 12. Patient is noncompliant with medications and follow-up and continues to have multiple hospitalizations regarding this. Patient was maintained on anticoagulation for DVT and suspected PEs and has been off and on eliquis and Xarelto with hematology/oncology Dr. Martin following. Attempted to transfer the patient to [facility] for tertiary treatment although was denied as patient is considered stable and vaginal bleeding is marginal and hemoglobin remained stable. Vascular surgery was placed on consult and patient is scheduled to undergo IVC filter placement today. Patient also following with cardiology and nephrology outpatient in regards to her surgical clearance as well. 11/26/2022 Patient is seen and evaluated in follow-up this morning and has been having low- grade temps reporting pain and burning with urination and urinalysis was obtained and will send for culture. Will initiate ceftriaxone. Chest x-ray ordered and showed findings of most likely atelectasis and a concern for a lucency within the central abdomen recommending abdominal series. Abdomen x-ray was ordered showing limited due to body habitus but reporting some dilated loops of bowel in the upper abdomen within left abdomen which could represent obstruction and recommending CT abdomen. CT abdomen is ordered and pending. Patient reports she continues to have pain and burning with urination and also reports has not had a bowel movement in 4 days. Patient was given a dose of ceftriaxone and will send for urine culture and also consult infectious disease and appreciate input and recommendations as patient has had previous urinary tract infections with resistance. 11/27/2022 Patient is seen this morning lying in bed and patient reports she was just out of bed and per nursing staff patient is mostly in the bed throughout the whole day. Patient being followed by infectious disease maintained on antibiotics and awaiting urine cultures with preliminary showing gram-negative bacilli. Patient continues to report pain and burning with urination and adding Pyridium as needed for symptoms. Patient also reports to feeling like she is having memory issues and her speech is garbled. Patient evaluated on the phone prior to going in the room with normal speech and absolutely no aphasia or slurred speech as patient was having a full conversation. Will obtain computed tomography scan. Patient is afebrile denies chest pain or worsening shortness of breath. Patient is maintained on breathing inhalational treatments as she chronically uses and continues on her 4 L of oxygen. Patient has been encouraged to increase activity as tolerated. 11/28/2022 Patient is seen in follow-up today currently sitting up in the chair which is the first time I've seen her in the chair this admission. Patient continues to report symptoms of burning and pain with urination and is maintained on antibiotics and awaiting finalized cultures to determine discharge antibiotics. Infectious disease following and patient was started on daptomycin preliminary showing gram-negative bacilli. Will follow-up with lab finalized cultures sometime this evening. Patient is afebrile denies worsening shortness of breath or chest pains. Patient reports some mild vaginal bleeding and nothing worsened. Patient is status post IVC filter placement and is maintained on subcutaneous Lovenox. Patient resume low-dose oral anticoagulant on discharge. Patient does have follow-up appointment in the beginning of December with [facility]. Will follow-up with repeat labs and if hemoglobin is less will transfuse. Hemoglobin is stable at 8.8 today. Anemia workup for iron deficiency in progress. Hematology/oncology following. 11/29/2022 Patient is seen and evaluated in follow-up today maintained on IV antibiotics an d urine cultures finalized with Klebsiella pneumonia with some resistance and repeat urinalysis ordered per infectious disease recommendations. There is also concern of right forearm and wrist developing cellulitis from recent IV sites that appear erythematous and inflamed. Per ID recommendations, patient will continue on warm compresses and if there is drainage to obtain a culture. Patient reports improvement in urinary symptoms and denies burning and pain with frequency. Patient is also maintained on Pyridium as needed. Patient is afebrile with no reports of worsening shortness of breath or chest pains. Patient is tolerating diet and blood sugars controlled on current regimen. Hemoglobin is 9 today. 11/30/2022 Patient is seen in follow-up today being continued on IV antibiotics in the form of daptomycin and infectious disease following. Patient continues with some right wrist and forearm erythema and swelling although is improving and redness is going down. No drainage noted and there has not been cultures. Patient not reporting any further discomfort with urination and repeat urine cultures pending. Patient is afebrile with no reports of chest pain or worsening shor tness of breath. Patient is tolerating diet and blood sugars are better controlled. Will continue current regimen. 12/01/2022 Patient is continued on antibiotics with infectious disease following. Cultures of urine repeated although specimen unsuitable and no culture was given. Patient is having improvement in symptoms and maintained on IV cefepime and daptomycin. Right forearm and wrist cellulitis slowly improving and with continued no drainage will discuss further with infectious disease about discharge planning. Likely discharge on doxycycline. Patient is afebrile with no reported chest pain or worsening shortness of breath. Patient kidney functions elevated and will hold Lasix and gabapentin. Repeat labs in the a.m. Hemoglobin remained stable. Review of systems: Constitutional: No reports of fatigue, reports fever, or chills Cardiovascular: No reports of chest pain or palpitations Respiratory: No reports of worsening shortness of breath or cough GI: No reports of nausea, no reports of vomiting, no diarrhea : reports of improvements in dysuria and pain with urination Neurovascular: reports of generalized weakness All medications have been reviewed PHYSICAL EXAMINATION: GENERAL: The patient is alert and oriented x4, Well developed, well nourished. Morbidly obese HEENT: Pupils are round and equally reacting to light. EOMI. no scleral icterus. No conjunctival pallor. Normocephalic, atraumatic. No pharyngeal erythema. No thyromegaly. CARDIOVASCULAR: S1 and S2 muffled PULMONARY: diminished breath sounds bilaterally with some scattered rhonchi note d. ABDOMEN: soft. tender lower quadrants bilaterally on exam. obese. non- distended, normoactive bowel sounds. No palpable organomegaly. MUSCULOSKELETAL: No joint swelling or deformity. EXTREMITIES: No cyanosis, clubbing, or pedal edema. Chronic upper and lower extremity edema nonpitting , improved , right wrist and forearm with some erythema and swelling and was marked showing some improvement in erythema and the swelling has gone down some NEUROLOGICAL: Gross neurological examination did not reveal any focal deficits. Diffuse weakness SKIN: No rashes. Assessment: Right forearm and wrist cellulitis secondary to recent IV sites with redness and inflammation noted Vaginal bleeding, secondary to endometrial cancer with acute blood loss anemia Pain and burning with urination, acute urinary tract infection, present on admission cultures growing Klebsiella pneumonia with resistance Diabetes mellitus, type II, insulin-dependent uncontrolled with hyperglycemia Leukocytosis with Acute fever, multifactorial possibly secondary to acute urinary tract infection and concerns of right forearm and wrist cellulitis from IV sites Chronic kidney disease stage III Kidney injury on chronic kidney disease, likely secondary to diuretics History of COPD, not in exacerbation Chronic hypoxic respiratory failure secondary to COPD wears 4 L outpatient History of recent pulmonary embolism, Left upper lobe posterior perfusion defect consistent with pulmonary embolism as noted on VQ scan on previous admission in October 2022 History of deep vein thrombosis and PE, was maintained on anticoagulation, status post IVC filter placement 11/25/2022 Hypertension history History of rheumatoid arthritis History of lupus History of leukemia History of anxiety Morbid obesity with a BMI of 45.2 GI prophylaxis DVT prophylaxis Full code Plan: Patient had IVC filter placed with vascular surgery and has been cleared and vascular has signed off. Per hematology patient will continue on low-dose oral anticoagulant on discharge and close outpatient follow-up Continues to have some right forearm and wrist cellulitis where previous IV sites were with erythema and swelling noted with infectious disease following an aware recommending warm compresses as there is no drainage noted. Patient continued on daptomycin cefepime and currently titrating the dose down to 1 g as urine cultures finalized showing Klebsiella pneumonia with resistance. Repeat urinalysis with culture suitable specimen noted on lab and culture was not done. Patient is having improvements in urinary symptoms and denies pain or burning with urination.. Hopeful for oral antibiotics on discharge in the form of doxycycline Patient to follow-up with Dr. Barker out of [facility] gynecology oncology for further evaluation and possible surgical intervention Will continue sliding scale and Accu-Cheks before meals and at bedtime along with long-acting Encouraged incentive spirometer use and encouraging increased activity as tole rated. Patient has been afebrile for 48 hours CONTINUES with concerns of right forearm and wrist cellulitis more so than UTI symptoms of dysuria and pain have resolved. Patient continues to have some redness and swelling of the wrist although has been no drainage. Patient is continued on warm compresses per ID recommendations and will continue antibiotics. There is some noted improvement in the redness and swelling is going down. Monitor closely for another 24 hours for improvements of symptoms of cellulitis Possible discharge in the next 24 hours The impression and plan of care has been dictated as a scribe by Fabienne Fortune, nurse practitioner as directed. Dr. David MD I have performed a history and examination and MDM of this patient, discussed the same with the dictator, and will be documented as a scribe. Based on total visit time, I have performed more than 50% of the visit. Any additional findings or plans will be noted. Objective - Vital Signs Vital signs: Vital Signs Temp 97.9 F 12/01/22 07:18 Pulse 93 12/01/22 08:50 Resp 20 12/01/22 07:18 BP 112/68 12/01/22 07:18 Pulse Ox 99 12/01/22 07:18 FiO2 Intake & Output 11/30/22 12/01/22 12/01/22 18:59 06:59 18:59 Intake Total 480 Output Total 1200 Balance -720 Intake: Oral 480 Output: Urine 1200 Other: Voiding Method Bedside Commode # Voids 1 1 0 - Labs CBC & Chem 7: 11/29/22 06:14 11/29/22 06:14 Labs: Abnormal Lab Results - Last 24 Hours (Table) 11/30/22 11/30/22 11/30/22 Range/Units 11:29 17:10 20:47 POC Glucose (mg/dL) 256 H 137 H 199 H (70-110) mg/dL 12/01/22 Range/Units 06:05 POC Glucose (mg/dL) 168 H (70-110) mg/dL Microbiology - Last 24 Hours (Table) 11/29/22 11:30 Urine Culture - Final Urine,Voided 11/25/22 15:05 Blood Culture - Final Blood
[2022-12-01 11:56] LABS: Glucose,Whole Blood 160 mg/dL (70-110)
[2022-12-01] MEDS: DAPTOmycin 350 MG in SODIUM CHLORIDE 0.9% 50 ML IVPB SCH (13:49)
[2022-12-01 17:29] LABS: Glucose,Whole Blood 162 mg/dL (70-110)
[2022-12-01 20:12] LABS: Glucose,Whole Blood 183 mg/dL (70-110)
[2022-12-01] MEDS: CEFEPIME 1 GM in SODIUM CHLORIDE 0.9% 50 ML IVPB SCH (20:39)
[2022-12-01] MEDS: MONTELUKAST 10 MG TAB PO SCH (20:40)
[2022-12-02 02:40] VITALS: RESP 18
[2022-12-02] MEDS: HYDROcodone/APAP 5-325MG 1 EACH TAB PO PRN (02:41)
[2022-12-02] MEDS: IPRATROPIUM-ALBUTEROL 3 ML NEB INHALATION SCH ×3 (02:54→12:07)
[2022-12-02 06:20] LABS: Glucose,Whole Blood 157 mg/dL (70-110)
[2022-12-02] MEDS: INSULIN DETEMIR (LEVEMIR) 100 UNIT/ML SYR SQ SCH (06:34)
[2022-12-02] MEDS: FLUoxetine HCL 20 MG CAP PO SCH (08:17)
[2022-12-02] MEDS: PANTOPRAZOLE 40 MG TABLET PO SCH (08:17)
[2022-12-02] MEDS: SENNOSIDES 8.6 MG TAB PO SCH (08:17)
[2022-12-02] MEDS: METOPROLOL TARTRATE 12.5 MG TAB PO SCH (08:17)
[2022-12-02] MEDS: INSULIN ASPART (NovoLOG) 100 UNIT/ML VIAL SQ SCH ×4 (08:17→13:16)
[2022-12-02] MEDS: allopurinoL 100 MG TAB PO SCH (08:18)
[2022-12-02] MEDS: hydrOXYzine HCL 25 MG TAB PO SCH ×2 (08:18→13:16)
[2022-12-02] MEDS: HYDROXYCHLOROQUINE SULFATE 200 MG TAB PO SCH (08:18)
[2022-12-02] MEDS: ENOXAPARIN 30 MG/0.3 ML SYRINGE SQ SCH (08:18)
[2022-12-02] MEDS: DAPAGLIFLOZIN PROPANEDIOL 5 MG TABLET PO SCH (08:19)
--- NOTE | 2022-12-02 08:57 | P.PN ---
Subjective Progress Note Date: 12/01/22 Principal diagnosis: UTI/IV site phlebitis Patient is a 57-year-old female with a past medical history weekly for COPD diabetes mellitus admitted arthritis history of uterine cancer for the patient has received radiation therapy presenting to the hospital 5 days ago on 11/21/2022 for evaluation of vaginal bleeding in addition to the abdominal pain and leg pain, patient did have a Christina filter during this admission and also developed a low-grade fever. On today's evaluation that is 12/01/2022 the patient remains to be afebrile, the patient is breathing comfortably on 4 L nasal current oxygen denies any chest pain complaining of some shortness of breath and cough not bringing up sputum no abdominal pain or diarrhea right upper arm swelling redness is slightly decreased. Labs creatinine is 2.47 no CBC was done today repeat urine is negative Objective - Vital Signs Vital signs: Vital Signs Temp 98.4 F 12/01/22 19:26 Pulse 90 12/01/22 21:25 Resp 16 12/01/22 19:26 BP 133/71 12/01/22 19:26 Pulse Ox 99 12/01/22 19:26 FiO2 Intake & Output 12/01/22 12/01/22 12/02/22 06:59 18:59 06:59 Intake Total 360 Output Total 500 Balance -140 Intake: Oral 360 Output: Urine 500 Other: Voiding Method Bedside Commode Bedside Commode # Voids 1 0 0 - Exam Medicines female up in the chair in no distress Respiratory system unable to be pending Right wrist and forearm did have swelling which seemed to be progressing into abscess clinically but no drainage - Labs CBC & Chem 7: 11/29/22 06:14 12/01/22 10:45 Labs: Abnormal Lab Results - Last 24 Hours (Table) 12/01/22 12/01/22 12/01/22 Range/Units 06:05 10:45 11:48 Chloride 113 H (98-107) mmol/L Carbon Dioxide 18 L (22-30) mmol/L BUN 62 H (7-17) mg/dL Creatinine 2.47 H (0.52-1.04) mg/dL Glucose 156 H (74-99) mg/dL POC Glucose (mg/dL) 168 H 160 H (70-110) mg/dL 12/01/22 12/01/22 Range/Units 17:21 20:11 Chloride (98-107) mmol/L Carbon Dioxide (22-30) mmol/L BUN (7-17) mg/dL Creatinine (0.52-1.04) mg/dL Glucose (74-99) mg/dL POC Glucose (mg/dL) 162 H 183 H (70-110) mg/dL Microbiology - Last 24 Hours (Table) 11/29/22 11:30 Urine Culture - Final Urine,Voided 11/25/22 15:05 Blood Culture - Final Blood Assessment and Plan (1) IV site infection Current Visit: Yes Status: Acute Code(s): T82.7XXA - INFECT/INFLM REACT D/T OTH CARDI/VASC DEV/IMPLNT/GRFT, INIT SNOMED Code(s): 609743661 (2) Right arm cellulitis Current Visit: Yes Status: Acute Code(s): L03.113 - CELLULITIS OF RIGHT UPPER LIMB SNOMED Code(s): 628095681 (3) UTI (urinary tract infection) Current Visit: No Status: Acute Code(s): N39.0 - URINARY TRACT INFECTION, SITE NOT SPECIFIED SNOMED Code(s): 15593485 Plan: 1patient with a low-grade fever 100 F source is likely multifactorial in this patient who do have a history of endometrial cancer undergoing radiation therapy with concern for possible DVT and recently did have a inferior vena cava filter placement patient becoming some abdominal pain however no acute abnormality was noticed and no evidence of any pneumonia did have a positive UA concerning for possible symptomatic UTI from enteric gram-negative pathogen, Patient however was noted to have significant cellulitis to the right forearm site of previous IV and concern for possible gram-positive infection. 2patient did have renal insufficiency high risk of nephrotoxicity from vancomycin. 3Patient urine did grow drug-resistant Klebsiella repeat UA Came back mildly positive with a cultures currently pending. 4patient did have right forearm IV previous IV site cellulitis , Patient did have improvement to the right upper extremity cellulitis blood culture has been negative so far patient is currently on daptomycin she will be able to finish therapy with oral doxycycline and close outpatient follow-up Dictation was produced using [employer] software. please excuse any grammatical, word or spelling errors. Time with Patient: Less than 30
[2022-12-02] MEDS: CEFEPIME 1 GM in SODIUM CHLORIDE 0.9% 50 ML IVPB SCH (09:32)
[2022-12-02 10:04] VITALS: BP 150/82; TEMP 98.2
[2022-12-02 10:51] LABS: Basophils # (A) 0.09 X 10*3/uL (0.00-0.10); Basophils % (A) 0.6 %; Eosinophils # (A) 0.73 X 10*3/uL (0.04-0.35); HCT 28.6 % (37.2-46.3); HGB 9.1 d/dL (12.0-15.0); Lymphocytes # (A) 2.74 X 10*3/uL (0.90-5.00); Lymphocytes % (A) 18.8 %; MCH 28.4 pg (27.0-32.0); MCHC 31.8 d/dL (32.0-37.0); MCV 89.4 FL (80.0-97.0); Mean Platelet Volume 10.3 FL (9.5-12.2); Monocytes # (A) 0.78 X 10*3/uL (0.20-1.00); Monocytes % (A) 5.4 %; NRBC Per 100 WBC 0 X 10*3/uL (0.00-0.01); Neutrophils # (A) 9.73 X 10*3/uL (1.80-7.70); Neutrophils % (A) 66.9 %; Platelet Count 426 X 10*3/uL (140-440); RDW 13.4 % (11.5-14.5); WBC 14.55 X 10*3/uL (4.50-10.00)
[2022-12-02 11:03] LABS: BUN/Creat Ratio 22.79 Ratio (12.00-20.00); Blood Urea Nitrogen 54.7 mg/dL (9.0-27.0); Glucose 155 mg/dL (70-110)
[2022-12-02 11:04] LABS: Calcium 9.3 mg/dL (8.7-10.3); Carbon Dioxide 19.6 mmol/L (21.6-31.8); Chloride 112 mmol/L (96-109); Potassium 4.7 mmol/L (3.5-5.5); Sodium 145 mmol/L (135-145)
--- NOTE | 2022-12-02 11:54 | P.PN ---
Subjective Progress Note Date: 12/02/22 Principal diagnosis: anemia, endometrial adenocarcinoma In f/u today no reported bleeding per pt, she has been on prophylactic dose of lovenox, IVC filter placed, no unusual swelling in the legs, pain is currently managed. Objective - Vital Signs Vital signs: Vital Signs Temp 97.9 F 12/02/22 02:00 Pulse 99 12/02/22 02:00 Resp 18 12/02/22 02:00 BP 128/78 12/02/22 02:00 Pulse Ox 96 12/02/22 08:59 FiO2 Intake & Output 12/01/22 12/02/22 12/02/22 18:59 06:59 18:59 Intake Total 360 Output Total 500 Balance -140 Intake: Oral 360 Output: Urine 500 Other: Voiding Method Bedside Commode # Voids 0 1 # Bowel Movements 1 - Constitutional General appearance: Present: cooperative, morbidly obese, no acute distress - EENT Eyes: Present: anicteric sclerae, EOMI ENT: Present: hearing grossly normal - Respiratory Details: resp even and unlabored - Peripheral edema leg Peripheral Edema: bilateral: None - Integumentary Integumentary: Present: pale - Neurologic Neurologic: Present: CNII-XII intact (grossly) - Musculoskeletal Musculoskeletal: Present: generalized weakness, strength equal bilaterally - Psychiatric Psychiatric: Present: A&O x's 3, appropriate affect, intact judgment & insight - Labs CBC & Chem 7: 12/02/22 06:41 12/02/22 06:41 Labs: Abnormal Lab Results - Last 24 Hours (Table) 11/29/22 12/01/22 12/01/22 Range/Units 06:14 10:45 11:48 Chloride 113 H (98-107) mmol/L Carbon Dioxide 18 L (22-30) mmol/L BUN 62 H (7-17) mg/dL Creatinine 2.47 H (0.52-1.04) mg/dL Glucose 156 H (74-99) mg/dL POC Glucose (mg/dL) 160 H (70-110) mg/dL Methylmalonic Acid 1.17 H (<0.40) umol/L 12/01/22 12/01/22 12/02/22 Range/Units 17:21 20:11 06:18 Chloride (98-107) mmol/L Carbon Dioxide (22-30) mmol/L BUN (7-17) mg/dL Creatinine (0.52-1.04) mg/dL Glucose (74-99) mg/dL POC Glucose (mg/dL) 162 H 183 H 157 H (70-110) mg/dL Methylmalonic Acid (<0.40) umol/L Microbiology - Last 24 Hours (Table) 11/29/22 11:30 Urine Culture - Final Urine,Voided Assessment and Plan (1) Adenocarcinoma of endometrium, stage 1 Current Visit: Yes Status: Acute Priority: High Code(s): C54.1 - MALIGNANT NEOPLASM OF ENDOMETRIUM SNOMED Code(s): 137922383 (2) Anemia Current Visit: Yes Status: Acute Priority: High Code(s): D64.9 - ANEMIA, UNSPECIFIED SNOMED Code(s): 414121767 (3) Vaginal bleeding Current Visit: Yes Status: Acute Priority: High Code(s): N93.9 - ABNORMAL UTERINE AND VAGINAL BLEEDING, UNSPECIFIED SNOMED Code(s): 152023684 Plan: Endometrial adenocarcinoma -History of well-differentiated FIGO score 1, biopsy from January 2022. CT February 2022 no evidence of metastatic disease. -Patient has not had radiation, not a surgical candidate yet because of comorbid conditions, she was started on Megace earlier this year, this has been held because of recent PE -CT AP 11/26/22 without contrast, impression, no evidence for acute abdominal process, enlarged fibroid uterus with an IUD in place, left hip fixation hardware, cholelithiasis, no osseous abnormalities, IVC filter is seen, no lymphadenopathy -Due to see [facility] oncology in the next 1-2 weeks for a plan of care Vaginal bleeding-Resolved -Secondary to untreated disease -Anticoagulation held, bleeding has stopped Anemia -2/2 to above, exacerbated by anticoagulation -Hgb 9.1 today, did not require a transfusion this visit Hx DVT of the right internal jugular, subclavian, and axillary veins earlier this year. Anticoagulation was held because of vaginal bleeding PE -Diagnosed from VQ scan 10/28/22 -Eliquis currently held for vaginal bleeding on admit -prophylactic dose of lovenox during inpt stay, no bleeding while on the same -IVC filter placed as pt cannot be fully anticoagulated 2/2 recurrent vaginal bleeding -Rx for 2.5mg elliquis sent for copay verification. Discussed with CM -Pt will take 2.5mg eliquis. If vaginal bleeding recurs then eliquis will have to be stopped Attests: I have seen and examined pt, performed H&P, developed impression and plan of care. Discussed with dictator. Agree with documentation, dictated as a scribe.
[2022-12-02 12:18] VITALS: PULSE 84
[2022-12-02 12:24] LABS: Glucose,Whole Blood 229 mg/dL (70-110)
--- NOTE | 2022-12-05 21:08 | P.DS ---
Providers Date of admission: 11/21/22 23:24 Attending physician: Isabela Shelley Consults: 11/22/22 08:25 Consult Physician Routine Consulting Provider: Pablo Martin Consult Reason/Comments: Anticoagulation, vaginal bleeding Do you want consulting provider notified?: Yes 11/26/22 09:42 Consult Physician Routine Consulting Provider: Abner Alva Consult Reason/Comments: new onset fevers, uti Do you want consulting provider notified?: Yes Primary care physician: Deanne Chahal Hospital Course: Final diagnosis Right forearm and wrist cellulitis secondary to recent IV sites with redness and inflammation noted Vaginal bleeding, secondary to endometrial cancer with acute blood loss anemia Pain and burning with urination, acute urinary tract infection, present on admission cultures growing Klebsiella pneumonia with resistance Diabetes mellitus, type II, insulin-dependent uncontrolled with hyperglycemia Leukocytosis with Acute fever, multifactorial possibly secondary to acute urinary tract infection and concerns of right forearm and wrist cellulitis from IV sites Chronic kidney disease stage III Kidney injury on chronic kidney disease, likely secondary to diuretics History of COPD, not in exacerbation Chronic hypoxic respiratory failure secondary to COPD wears 4 L outpatient History of recent pulmonary embolism, Left upper lobe posterior perfusion defect consistent with pulmonary embolism as noted on VQ scan on previous admission in October 2022 History of deep vein thrombosis and PE, was maintained on anticoagulation, status post IVC filter placement 11/25/2022 Hypertension history History of rheumatoid arthritis History of lupus History of leukemia History of anxiety Morbid obesity with a BMI of 45.2 GI prophylaxis DVT prophylaxis Full code Discharge disposition Patient is being discharged in a stable condition with guarded prognosis to home . Patient will follow-up with Dr. Alicea in the outpatient setting upon discharge. Patient is to continue with oral doxycycline per ID recommendations as scheduled. Patient needs SURGERY TECHNICIAN ONC follow-up outpatient with Dr. Euceda out of [facility] as she has been. Patient was also given referral services from Dr. Mj Velasquez information for surgical evaluation. Total time taken is greater than 35 minutes. Hospital course This is a 57-year-old female who was recently admitted with vaginal bleeding with anemia and weakness and was being closely monitored. Multiple medical consultations following including vascular surgery and IVC filter was placed. Patient with low hemoglobin that has been stable with continued intermittent periods of vaginal bleeding. This has been ongoing since diagnosis of endometrial carcinoma. Patient was following outpatient with endocrine and cardiology and nephrology for surgical clearance with Dr. Euceda. Patient had not been cleared for surgery by endocrine as hemoglobin A1c was above 12. Patient with very frequent hospitalizations and poor to follow-up with poor social support has been hospitalized many times this year. Patient with overall poor prognosis given her significant comorbidities. Patient had being followed by oncology as well as infectious disease for urinary tract infection and right forearm with wrist cellulitis from IV sites. Patient did have resistant cultures with some sensitivities and is continued on doxycycline per ID recommendations. Patient was instructed to follow-up with consultations this week and verbalized understanding. Please refer to other consultation notes for further HPI. Currently no reports of chest pain, shortness of breath, or palpitations. Patient is afebrile. No reports of nausea or vomiting and patient is tolerating diet. Patient will be discharged home with overall poor and guarded prognosis. Patient is high risk for readmissions and has had multiple hospitalizations secondary to this. Physical exam: Gen: This is a 57-year-old female who is awake, alert and oriented 3, well- developed, well-nourished, ill appearing, appears elderly, morbidly obese HEENT: Head is atraumatic, normocephalic. Pupils equal, round. Sclerae is anicteric. NECK: Supple. No JVD. No lymphadenopathy. No thyromegaly. LUNGS: Diminished breath sounds bilaterally with coarse scattered rhonchi. No intercostal retractions. HEART: Regular rate and rhythm. No murmur. ABDOMEN: Soft. Obese Bowel sounds are present. No masses. No tenderness. EXTREMITIES: No pedal edema. No calf tenderness. NEUROLOGICAL: Patient is awake, alert and oriented x3. Cranial nerves 2 through 12 are grossly intact. Diffusely weak Please refer to medication reconciliation sheet for a list of medications. The impression and plan of care has been dictated by Fabienne Fortune, Nurse Practitioner as directed. Dr. David MD I have performed a history and examination and MDM of this patient, discussed the same with the dictator, and agree with the dictator's assessment and plan as written ,documented as a scribe. Based on total visit time, I have performed more than 50% of the visit. Patient Condition at Discharge: Fair Plan - Discharge Summary Discharge Rx Participant: No New Discharge Prescriptions: New INSULIN ASPART (NovoLOG) [NovoLOG (formulary)] 0 unit SQ ACHS each Apixaban [Eliquis] 2.5 mg PO BID #60 tab Sennosides [Senokot] 8.6 mg PO BID #30 tab Doxycycline [Vibramycin] 100 mg PO BID 10 Days #20 capsule Metoprolol Tartrate [Lopressor] 12.5 mg PO DAILY 30 Days #30 tab Continue Montelukast [Singulair] 10 mg PO HS Albuterol Inhaler [Ventolin Hfa Inhaler] 2 puff INHALATION RT-Q4H PRN PRN Reason: Shortness Of Breath hydrOXYzine HCL [Atarax] 25 mg PO QID FLUoxetine HCL [PROzac] 20 mg PO BID Empagliflozin [Jardiance] 10 mg PO DAILY allopurinoL [Zyloprim] 100 mg PO BID Ondansetron [Zofran] 4 mg PO Q12HR PRN PRN Reason: Nausea Atorvastatin [Lipitor] 10 mg PO HS Acetaminophen Tab [Tylenol] 650 mg PO Q6HR PRN tab PRN Reason: Fever And/ Or Pain Hydroxychloroquine Sulfate [Plaquenil] 200 mg PO BID Pantoprazole [Protonix] 40 mg PO BID Insulin Detemir (Levemir) [Levemir] 25 unit SQ BID Changed Gabapentin 300 mg PO BID #0 INSULIN ASPART (NovoLOG) [NovoLOG (formulary)] 10 unit SQ AC-TID #10 ml Discontinued Furosemide [Lasix] 40 mg PO DAILY Metoprolol Tartrate [Lopressor] 25 mg PO DAILY Apixaban [Eliquis] 5 mg PO BID Discharge Medication List Montelukast [Singulair] 10 mg PO HS 01/09/17 [History] Albuterol Inhaler [Ventolin Hfa Inhaler] 2 puff INHALATION RT-Q4H PRN 01/14/17 [History] allopurinoL [Zyloprim] 100 mg PO BID 01/21/22 [History] Atorvastatin [Lipitor] 10 mg PO HS 02/15/22 [History] Ondansetron [Zofran] 4 mg PO Q12HR PRN 02/15/22 [History] Acetaminophen Tab [Tylenol] 650 mg PO Q6HR PRN tab 03/28/22 [Rx] Hydroxychloroquine Sulfate [Plaquenil] 200 mg PO BID 04/13/22 [History] hydrOXYzine HCL [Atarax] 25 mg PO QID 04/13/22 [History] FLUoxetine HCL [PROzac] 20 mg PO BID 10/27/22 [History] Pantoprazole [Protonix] 40 mg PO BID 10/27/22 [History] Insulin Detemir (Levemir) [Levemir] 25 unit SQ BID 11/06/22 [History] Empagliflozin [Jardiance] 10 mg PO DAILY 11/21/22 [History] INSULIN ASPART (NovoLOG) [NovoLOG (formulary)] 0 unit SQ ACHS each 11/22/22 [Rx] Apixaban [Eliquis] 2.5 mg PO BID #60 tab 12/02/22 [Rx] Doxycycline [Vibramycin] 100 mg PO BID 10 Days #20 capsule 12/02/22 [Rx] Gabapentin 300 mg PO BID #0 12/02/22 [Rx] INSULIN ASPART (NovoLOG) [NovoLOG (formulary)] 10 unit SQ AC-TID #10 ml 12/02/22 [Rx] Metoprolol Tartrate [Lopressor] 12.5 mg PO DAILY 30 Days #30 tab 12/02/22 [Rx] Sennosides [Senokot] 8.6 mg PO BID #30 tab 12/02/22 [Rx] Follow up Appointment(s)/Referral(s): Fela Alicea MD [Primary Care Provider] - 1-2 days [facility] [NON-STAFF] - 1 Week [facility] Vis[facility] Nurse, [NON-STAFF] - 1 Week Patient Instructions/Handouts: Weakness (DC) Activity/Diet/Wound Care/Special Instructions: If vaginal bleeding starts again, hold eliquis Cont to hold megace for now until seen by Dr. Euceda Activity Limited until follow-up Continue antibiotics until finished Follow-up with Dr. Yakov Barker gynecology oncology out of [facility] at [phone] to schedule an appointment for evaluation and possible surgical intervention Continue antibiotics for 10 days Continue to monitor blood sugars closely and keep a diary of all readings and follow-up with endocrine in family practice as scheduled Continue with warm compresses twice daily to the right wrist and forearm and elevate Discharge Disposition: HOME WITH HOME HEALTH SERVICES
--- NOTE | 2022-12-09 13:05 | P.PN ---
Subjective Progress Note Date: 12/02/22 Principal diagnosis: UTI/IV site phlebitis Patient is a 57-year-old female with a past medical history weekly for COPD diabetes mellitus admitted arthritis history of uterine cancer for the patient has received radiation therapy presenting to the hospital 5 days ago on 11/21/2022 for evaluation of vaginal bleeding in addition to the abdominal pain and leg pain, patient did have a Christina filter during this admission and also developed a low-grade fever. On today's evaluation that is 12/02/2022 the patient continues to be afebrile, the patient is breathing comfortably on 4 L nasal current oxygen, the patient denies any chest pain complaining of some shortness of breath and cough not bringing up sputum , the patient denies abdominal pain or diarrhea right upper arm swelling redness has decreased in intensity. Blood culture negative. Repeat Urine is negative Objective - Vital Signs Vital signs: Vital Signs Temp 98.2 F 12/02/22 08:00 Pulse 93 12/02/22 08:00 Resp 18 12/02/22 08:00 BP 150/82 12/02/22 08:00 Pulse Ox 96 12/02/22 08:59 FiO2 Intake & Output 12/01/22 12/02/22 12/02/22 18:59 06:59 18:59 Intake Total 360 Output Total 500 Balance -140 Intake: Oral 360 Output: Urine 500 Other: Voiding Method Bedside Commode # Voids 0 1 1 # Bowel Movements 1 - Exam Medicines female up in the chair in no distress Respiratory system unable to be pending Right wrist and forearm did have swelling which seemed to be progressing into abscess clinically but no drainage - Labs CBC & Chem 7: 12/02/22 06:41 12/02/22 06:41 Labs: Abnormal Lab Results - Last 24 Hours (Table) 11/29/22 12/01/22 12/01/22 Range/Units 06:14 10:45 11:48 WBC (4.50-10.00) X 10*3/uL RBC (4.10-5.20) X 10*6/uL Hgb (12.0-15.0) d/dL Hct (37.2-46.3) % MCHC (32.0-37.0) d/dL Neutrophils # (1.80-7.70) X 10*3/uL Eosinophils # (0.04-0.35) X 10*3/uL Chloride 113 H (98-107) mmol/L Carbon Dioxide 18 L (22-30) mmol/L Anion Gap (4.00-12.00) mmol/L BUN 62 H (7-17) mg/dL Creatinine 2.47 H (0.52-1.04) mg/dL Est GFR (CKD-EPI) (>=60) BUN/Creatinine Ratio (12.00-20.00) Ratio Glucose 156 H (74-99) mg/dL POC Glucose (mg/dL) 160 H (70-110) mg/dL Methylmalonic Acid 1.17 H (<0.40) umol/L 12/01/22 12/01/22 12/02/22 Range/Units 17:21 20:11 06:18 WBC (4.50-10.00) X 10*3/uL RBC (4.10-5.20) X 10*6/uL Hgb (12.0-15.0) d/dL Hct (37.2-46.3) % MCHC (32.0-37.0) d/dL Neutrophils # (1.80-7.70) X 10*3/uL Eosinophils # (0.04-0.35) X 10*3/uL Chloride (98-107) mmol/L Carbon Dioxide (22-30) mmol/L Anion Gap (4.00-12.00) mmol/L BUN (7-17) mg/dL Creatinine (0.52-1.04) mg/dL Est GFR (CKD-EPI) (>=60) BUN/Creatinine Ratio (12.00-20.00) Ratio Glucose (74-99) mg/dL POC Glucose (mg/dL) 162 H 183 H 157 H (70-110) mg/dL Methylmalonic Acid (<0.40) umol/L 12/02/22 12/02/22 Range/Units 06:41 06:41 WBC 14.55 H (4.50-10.00) X 10*3/uL RBC 3.20 L (4.10-5.20) X 10*6/uL Hgb 9.1 L (12.0-15.0) d/dL Hct 28.6 L (37.2-46.3) % MCHC 31.8 L (32.0-37.0) d/dL Neutrophils # 9.73 H (1.80-7.70) X 10*3/uL Eosinophils # 0.73 H (0.04-0.35) X 10*3/uL Chloride 112 H (98-107) mmol/L Carbon Dioxide 19.6 L (22-30) mmol/L Anion Gap 13.40 H (4.00-12.00) mmol/L BUN 54.7 H (7-17) mg/dL Creatinine 2.4 H (0.52-1.04) mg/dL Est GFR (CKD-EPI) 23 L (>=60) BUN/Creatinine Ratio 22.79 H (12.00-20.00) Ratio Glucose 155 H (74-99) mg/dL POC Glucose (mg/dL) (70-110) mg/dL Methylmalonic Acid (<0.40) umol/L Microbiology - Last 24 Hours (Table) 11/29/22 11:30 Urine Culture - Final Urine,Voided Assessment and Plan (1) IV site infection Status: Acute Code(s): T82.7XXA - INFECT/INFLM REACT D/T OTH CARDI/VASC DEV/IMPLNT/GRFT, INIT SNOMED Code(s): 658175787 (2) Right arm cellulitis Status: Acute Code(s): L03.113 - CELLULITIS OF RIGHT UPPER LIMB SNOMED Code(s): 302950402 (3) UTI (urinary tract infection) Status: Acute Code(s): N39.0 - URINARY TRACT INFECTION, SITE NOT SPECIFIED SNOMED Code(s): 77581396 Plan: 1patient with a low-grade fever 100 F source is likely multifactorial in this patient who do have a history of endometrial cancer undergoing radiation therapy with concern for possible DVT and recently did have a inferior vena cava filter placement patient becoming some abdominal pain however no acute abnormality was noticed and no evidence of any pneumonia did have a positive UA concerning for possible symptomatic UTI from enteric gram-negative pathogen, Patient however was noted to have significant cellulitis to the right forearm site of previous IV and concern for possible gram-positive infection. 2patient did have renal insufficiency high risk of nephrotoxicity from vancomycin. 3Patient urine did grow drug-resistant Klebsiella repeat UA Came back mildly positive however repeat urine culture have been negative underlying UTI has been adequately treated 4patient did have right forearm IV previous IV site cellulitis , Patient did have improvement to the right upper extremity cellulitis blood culture has been negative, patient has shown clinical improvement she'll be able to finish therapy with oral doxycycline close outpatient follow-up Dictation was produced using [employer] dictation software. please excuse any gramma tical, word or spelling errors. Time with Patient: Less than 30
== END 2022-12-02 15:46 | disposition home health service (06) | DRG 294 ==
LOC: EC 14:56 → 6NMEDSUR 23:24 → OBSVTOIN 23:24 → 6NMEDSUR 11-22 05:34
PROVIDERS: ADMIT Hospitalist; ATTEND Hospitalist
PROC: 06H03DZ Insertion of Intraluminal Device into Inferior Vena Cava, Percutaneous Approach (ICD-10-PCS; principal; 2022-11-25 11:30)
DX: I82.220 Acute embolism and thrombosis of inferior vena cava (principal); D62 Acute posthemorrhagic anemia; N39.0 Urinary tract infection, site not specified; D68.59 Other primary thrombophilia; Z68.42 Body mass index [BMI] 45.0-49.9, adult; J96.11 Chronic respiratory failure with hypoxia; L03.113 Cellulitis of right upper limb; N18.4 Chronic kidney disease, stage 4 (severe); T80.29XA Infection following other infusion, transfusion and therapeutic injection, initial encounter; N93.9 Abnormal uterine and vaginal bleeding, unspecified; B96.1 Klebsiella pneumoniae [K. pneumoniae] as the cause of diseases classified elsewhere; C54.1 Malignant neoplasm of endometrium; E11.22 Type 2 diabetes mellitus with diabetic chronic kidney disease; E11.65 Type 2 diabetes mellitus with hyperglycemia; E66.01 Morbid (severe) obesity due to excess calories; E78.5 Hyperlipidemia, unspecified; Z99.81 Dependence on supplemental oxygen; I12.9 Hypertensive chronic kidney disease with stage 1 through stage 4 chronic kidney disease, or unspecified chronic kidney disease; J44.9 Chronic obstructive pulmonary disease, unspecified; J45.20 Mild intermittent asthma, uncomplicated; I80.9 Phlebitis and thrombophlebitis of unspecified site; M06.9 Rheumatoid arthritis, unspecified; M32.9 Systemic lupus erythematosus, unspecified; E05.00 Thyrotoxicosis with diffuse goiter without thyrotoxic crisis or storm; T50.2X5A Adverse effect of carbonic-anhydrase inhibitors, benzothiadiazides and other diuretics, initial encounter; K59.00 Constipation, unspecified; G47.33 Obstructive sleep apnea (adult) (pediatric); M19.90 Unspecified osteoarthritis, unspecified site; M10.9 Gout, unspecified; Z79.4 Long term (current) use of insulin; Z86.718 Personal history of other venous thrombosis and embolism; Z79.01 Long term (current) use of anticoagulants; Z86.711 Personal history of pulmonary embolism; Z79.84 Long term (current) use of oral hypoglycemic drugs; Z79.899 Other long term (current) drug therapy; Z82.49 Family history of ischemic heart disease and other diseases of the circulatory system; Z83.3 Family history of diabetes mellitus; Z85.6 Personal history of leukemia; Z87.442 Personal history of urinary calculi; Z91.148 Patient's other noncompliance with medication regimen for other reason; Z92.3 Personal history of irradiation; Z28.310 Unvaccinated for COVID-19; Z88.1 Allergy status to other antibiotic agents; Z88.5 Allergy status to narcotic agent; Z88.2 Allergy status to sulfonamides; Z88.7 Allergy status to serum and vaccine; Z88.8 Allergy status to other drugs, medicaments and biological substances; Z28.21 Immunization not carried out because of patient refusal; Z84.1 Family history of disorders of kidney and ureter
CPT/HCPCS: 36415; 37191; 70450; 71045; 74021; 74176; 80048; 80053; 81001; 82525; 82607; 82728; 82746; 83540; 83550; 83735; 83921; 84100; 84145; 84484; 85025; 85610; 85730; 87040; 87077; 87086; 87186; 87635; 93970; 94640; 94760; 96361; 96374; 96376; 99285

== ENCOUNTER 2022-12-05 17:51 | Emergency (ER) | payer MEDICARE ==
[2022-12-05 18:08] VITALS: TEMP 98.2
--- NOTE | 2022-12-05 19:38 | ED ---
General Adult HPI - General Source: patient, family Mode of arrival: EMS Limitations: no limitations <Verónica Willard - Last Filed: 12/05/22 19:35> <Amelie Bryan - Last Filed: 12/06/22 01:21> - General Chief complaint: GI Bleed Stated complaint: GI Bleed Time Seen by Provider: 12/05/22 18:20 - History of Present Illness Initial comments: 57-year-old female past medical history of COPD, diabetes, uterine cancer who presents to the emergency room reporting rectal bleeding. Patient was just recently hospitalized and discharged on the . She was hospitalized for anemia and vaginal bleeding. They attempted transfer to [facility] however patient has been noncompliant with her diabetic medications and has a hba1c of 12. She is supposed to get a hysterectomy however they will not operate until her diabetes is better controlled. They also feel that the bleeding has been chronic and stable. Patient was found to have a urinary tract infection as well and was discharged on antibiotics. Presents today to state that she thinks she is rectally bleeding. She noticed blood in the toilet bowl when she was having a bowel movement. She does take blood thinners for history of DVT and PE. Recently had a [place] filter placed. She does admit to weakness. No nausea or vomiting. No abdominal pain. No other alleviating, precipitating or modifying factors (Amelie Bryan) - Related Data Home Medications Medication Instructions Recorded Confirmed RX: Montelukast [Singulair] 10 mg PO HS 01/09/17 11/21/22 RX: Albuterol Inhaler [Ventolin 2 puff INHALATION RT-Q4H PRN 01/14/17 11/21/22 Hfa Inhaler] RX: allopurinoL [Zyloprim] 100 mg PO BID 01/21/22 11/21/22 RX: Atorvastatin [Lipitor] 10 mg PO HS 02/15/22 11/21/22 RX: Ondansetron [Zofran] 4 mg PO Q12HR PRN 02/15/22 11/21/22 RX: Hydroxychloroquine Sulfate 200 mg PO BID 04/13/22 11/21/22 [Plaquenil] RX: hydrOXYzine HCL [Atarax] 25 mg PO QID 04/13/22 11/21/22 RX: FLUoxetine HCL [PROzac] 20 mg PO BID 10/27/22 11/21/22 RX: Pantoprazole [Protonix] 40 mg PO BID 10/27/22 11/21/22 RX: Insulin Detemir (Levemir) 25 unit SQ BID 11/06/22 11/21/22 [Levemir] RX: Empagliflozin [Jardiance] 10 mg PO DAILY 11/21/22 11/21/22 Previous Rx's Medication Instructions Recorded RX: Acetaminophen Tab [Tylenol] 650 mg PO Q6HR PRN tab 03/28/22 RX: INSULIN ASPART (NovoLOG) 0 unit SQ ACHS each 11/22/22 [NovoLOG (formulary)] Apixaban [Eliquis] 2.5 mg PO BID #60 tab 12/02/22 RX: Doxycycline [Vibramycin] 100 mg PO BID 10 Days #20 capsule 12/02/22 RX: Gabapentin 300 mg PO BID #0 12/02/22 RX: INSULIN ASPART (NovoLOG) 10 unit SQ AC-TID #10 ml 12/02/22 [NovoLOG (formulary)] RX: Metoprolol Tartrate [Lopressor] 12.5 mg PO DAILY 30 Days #30 tab 12/02/22 RX: Sennosides [Senokot] 8.6 mg PO BID #30 tab 12/02/22 Allergies Allergy/AdvReac Type Severity Reaction Status Date / Time ciprofloxacin [From Cipro] Allergy Swelling Verified 11/21/22 19:06 diphenhydramine Allergy Swelling Verified 11/21/22 19:06 [From Benadryl] Influenza Virus Vaccines Allergy Unknown Verified 11/21/22 19:06 iodine Allergy Swelling Verified 11/21/22 19:06 propoxyphene Allergy Swelling Verified 11/21/22 19:06 [From Darvocet-N] red dye Allergy Swelling Verified 11/21/22 19:06 sulfacetamide Allergy Swelling Verified 11/21/22 19:06 [From Sulfamide] yellow dye Allergy Swelling Verified 11/21/22 19:06 Review of Systems ROS Other: All systems not noted in ROS Statement are negative. <Verónica Willard - Last Filed: 12/05/22 19:35> ROS Other: All systems not noted in ROS Statement are negative. <Amelie Bryan - Last Filed: 12/06/22 01:21> ROS Statement: Those systems with pertinent positive or pertinent negative responses have been documented in the HPI. Past Medical History Past Medical History: Cancer, COPD, Diabetes Mellitus, Deep Vein Thrombosis (DVT), Hypertension, Renal Disease, Rheumatoid Arthritis (RA), Thyroid Disorder Additional Past Medical History / Comment(s): O2 @ 4L. SLE LUPUS. STAGE 3 KIDNEY DISEASE. Leukemia, GRAVES DZ , kidney stones, gout, Uterine cancer (no surgery, radiation only) History of Any Multi-Drug Resistant Organisms: Other MDRO Past Surgical History: No Surgical Hx Reported Additional Past Surgical History / Comment(s): BILATERAL ARTHROSCOPY KNEES. D & C (MISCARRIAGES). Past Anesthesia/Blood Transfusion Reactions: No Reported Reaction Past Psychological History: Anxiety Smoking Status: Never smoker Past Alcohol Use History: None Reported Past Drug Use History: None Reported - Past Family History Mother Family Medical History: Congestive Heart Failure (CHF), Diabetes Mellitus Father Family Medical History: Congestive Heart Failure (CHF), Dialysis, Hypertension <Verónica Willard - Last Filed: 12/05/22 19:35> General Exam Limitations: no limitations <Verónica Willard - Last Filed: 12/05/22 19:35> General appearance: alert, in no apparent distress Head exam: Present: atraumatic, normocephalic, normal inspection Eye exam: Present: normal appearance, PERRL, EOMI. Absent: scleral icterus, conjunctival injection, periorbital swelling ENT exam: Present: normal exam, mucous membranes moist Neck exam: Present: normal inspection. Absent: tenderness, meningismus, lymphadenopathy Respiratory exam: Present: normal lung sounds bilaterally. Absent: respiratory distress, wheezes, rales, rhonchi, stridor Cardiovascular Exam: Present: regular rate, normal rhythm, normal heart sounds. Absent: systolic murmur, diastolic murmur, rubs, gallop, clicks GI/Abdominal exam: Present: soft, normal bowel sounds. Absent: distended, tenderness, guarding, rebound, rigid Rectal exam: Present: normal rectal tone, heme (-) stool. Absent: black stool, bloody stool, mass Extremities exam: Present: normal inspection, full ROM, normal capillary refill. Absent: tenderness, pedal edema, joint swelling, calf tenderness Back exam: Present: normal inspection Neurological exam: Present: alert, oriented X3, CN II-XII intact Psychiatric exam: Present: normal affect, normal mood Skin exam: Present: warm, dry, intact, normal color. Absent: rash <Amelie Bryan - Last Filed: 12/06/22 01:21> Course Vital Signs 12/05/22 12/05/22 17:57 21:18 Temperature 98.2 F Pulse Rate 114 H 118 H Respiratory 20 18 Rate Blood Pressure 143/79 133/85 O2 Sat by Pulse 99 100 Oximetry Procedures - EJ/Peripheral Line No standard instances Consent Obtained: verbal consent Indications: nurses unable to establish peripheral IV Skin Cleansed in Sterile Fashion: Yes Size: 20 (Right wrist) Dressing Placed: Tegaderm, other (Site clean and dry ) Patient Tolerated Procedure: well, no complications <Verónica Willard - Last Filed: 12/05/22 19:35> - EJ/Peripheral Line No standard instances Additional Comments: Flushed and clamped (Verónica Willard) Medical Decision Making - Lab Data Result diagrams: 12/05/22 18:35 12/05/22 19:34 <IrvinAmelie Roque - Last Filed: 12/06/22 01:21> - Medical Decision Making Was pt. sent in by a medical professional or institution (Dr. PA, [facility], urgent care, hospital, or alf...) When possible be specific @ -No Did you speak to anyone other than the patient for history (EMS, parent, family, police, friend...)? What history was obtained from this source @ -No Did you review nursing and triage notes (agree or disagree)? Why? @ -I reviewed and agree with nursing and triage notes Were old charts reviewed (outside hosp., previous admission, EMS record, old EKG, old radiological studies, urgent care reports/EKG's, alf records)? Report findings @ -I reviewed the patient's progress notes and discharge summary from her hospitalization last week. Discharge summary was from the Differential Diagnosis (chest pain, altered mental status, abdominal pain women, abdominal pain men, vaginal bleeding, weakness, fever, dyspnea, syncope, headache, dizziness, GI bleed, back pain, seizure, CVA, palpatations, mental health, musculoskeletal)? @ -Differential Vaginal Bleeding: Spontaneous , threatened , molar , ectopic , bloody show, incompetent cervix, abruptioplacenta, placenta previa, uterine rupture, dysfunctional uterine bleeding, hemorrhage, uterine fibroids, this is not meant to be an all-inclusive list. EKG interpreted by me (3pts min.). @ -Not done X-rays interpreted by me (1pt min.). @ -None done CT interpreted by me (1pt min.). @ -None done U/S interpreted by me (1pt. min.). @ -None done What testing was considered but not performed or refused? (CT, X-rays, U/S, labs)? Why? @ -None What meds were considered but not given or refused? Why? @ -None Did you discuss the management of the patient with other professionals (professionals i.e. , PA, [facility], lab, RT, psych nurse, social media marketer, pharmacology professor, teacher, jailer/training officer, trimming caser)? Give summary @ -No Was smoking cessation discussed for >3mins.? @ -No Was critical care preformed (if so, how long)? @ -No Were there social determinants of health that impacted care today? How? (Homeles sness, low income, unemployed, alcoholism, drug addiction, transportation, low edu. Level, literacy, decrease access to med. care, chcf, rehab)? @ -No Was there de-escalation of care discussed even if they declined (Discuss DNR or withdrawal of care, Hospice)? DNR status @ -No What co-morbidities impacted this encounter? (DM, HTN, Smoking, COPD, CAD, Cancer, CVA, ARF, Chemo, Hep., AIDS, mental health diagnosis, sleep apnea, morbid obesity)? @ -Uterine cancer Was patient admitted / discharged? Hospital course, mention meds given and route, prescriptions, significant lab abnormalities, going to OR and other pertinent info. @ -Upon arrival patient was placed into room 19. A thorough history and physical exam was performed. Exam is performed which does demonstrate brown stool. Specimen is sent to lab and is negative for occult blood. Laboratory studies are conducted. Hemoglobin is 11.6 which was improved from patient's previous discharge CBC. I did discuss results with the patient. She is not having GI bleeding at this time. She continues to have vaginal bleeding which has been chronic for the patient due to her underlying uterine cancer. Spoke with the patient in regards to following up outpatient with her [facility] oncologist for further treatment options. Informed her that [facility] facility would be able to monitor the patient's hemoglobin levels however would not intervene. Patient could be hospitalized for rehab needs however patient is refusing and wants to go home. She is instructed to follow up outpatient with her oncologist. Return for any new or worsening symptoms. Patient understood and was discharged in stable condition Undiagnosed new problem with uncertain prognosis? @ -No Drug Therapy requiring intensive monitoring for toxicity (Heparin, Nitro, Insulin, Cardizem)? @ -No Were any procedures done? @ -No Diagnosis/symptom? @ -acute on Chronic vaginal bleeding, history of uterine cancer Acute, or Chronic, or Acute on Chronic? @ -Acute on chronic Uncomplicated (without systemic symptoms) or Complicated (systemic symptoms)? @ -Complicated Side effects of treatment? @ -No Exacerbation, Progression, or Severe Exacerbation? @ -Yes Poses a threat to life or bodily function? How? (Chest pain, USA, PA, pneumonia, PE, COPD, DKA, ARF, appy, cholecystitis, CVA, Diverticulitis, Homicidal, Zoë cidal, threat to staff... and all critical care pts) @ -No (Amelie Bryan) - Lab Data Lab Results 12/05/22 12/05/22 12/05/22 Range/Units 18:35 18:35 19:34 WBC 16.3 H (3.8-10.6) k/uL RBC 4.06 (3.80-5.40) m/uL Hgb 11.6 (11.4-16.0) gm/dL Hct 35.0 (34.0-46.0) % MCV 86.1 (80.0-100.0) fL MCH 28.6 (25.0-35.0) pg MCHC 33.2 (31.0-37.0) g/dL RDW 15.3 (11.5-15.5) % Plt Count 452 H (150-450) k/uL MPV 7.7 Neutrophils % 76 % Lymphocytes % 16 % Monocytes % 4 % Eosinophils % 3 % Basophils % 0 % Neutrophils # 12.4 H (1.3-7.7) k/uL Lymphocytes # 2.5 (1.0-4.8) k/uL Monocytes # 0.7 (0-1.0) k/uL Eosinophils # 0.4 (0-0.7) k/uL Basophils # 0.1 (0-0.2) k/uL Poikilocytosis Slight PT 10.5 (9.0-12.0) sec INR 1.0 (<1.2) APTT 23.3 (22.0-30.0) sec Sodium 140 (137-145) mmol/L Potassium 4.4 (3.5-5.1) mmol/L Chloride 111 H (98-107) mmol/L Carbon Dioxide 16 L (22-30) mmol/L Anion Gap 13 mmol/L BUN 29 H (7-17) mg/dL Creatinine 1.41 H (0.52-1.04) mg/dL Est GFR (CKD-EPI)AfAm 48 (>60 ml/min/1.73 sqM) Est GFR (CKD-EPI)NonAf 42 (>60 ml/min/1.73 sqM) Glucose 221 H (74-99) mg/dL Plasma Lactic Acid Efrain (0.7-2.0) mmol/L Calcium 9.4 (8.4-10.2) mg/dL Magnesium 1.8 (1.6-2.3) mg/dL Total Bilirubin 0.6 (0.2-1.3) mg/dL AST 30 (14-36) U/L ALT 24 (4-34) U/L Alkaline Phosphatase 91 (38-126) U/L Troponin I (0.000-0.034) ng/mL Total Protein 7.4 (6.3-8.2) g/dL Albumin 3.9 (3.5-5.0) g/dL Stool Occult Blood (Negative) 12/05/22 12/05/22 12/05/22 Range/Units 19:34 19:34 19:59 WBC (3.8-10.6) k/uL RBC (3.80-5.40) m/uL Hgb (11.4-16.0) gm/dL Hct (34.0-46.0) % MCV (80.0-100.0) fL MCH (25.0-35.0) pg MCHC (31.0-37.0) g/dL RDW (11.5-15.5) % Plt Count (150-450) k/uL MPV Neutrophils % % Lymphocytes % % Monocytes % % Eosinophils % % Basophils % % Neutrophils # (1.3-7.7) k/uL Lymphocytes # (1.0-4.8) k/uL Monocytes # (0-1.0) k/uL Eosinophils # (0-0.7) k/uL Basophils # (0-0.2) k/uL Poikilocytosis PT (9.0-12.0) sec INR (<1.2) APTT (22.0-30.0) sec Sodium (137-145) mmol/L Potassium (3.5-5.1) mmol/L Chloride (98-107) mmol/L Carbon Dioxide (22-30) mmol/L Anion Gap mmol/L BUN (7-17) mg/dL Creatinine (0.52-1.04) mg/dL Est GFR (CKD-EPI)AfAm (>60 ml/min/1.73 sqM) Est GFR (CKD-EPI)NonAf (>60 ml/min/1.73 sqM) Glucose (74-99) mg/dL Plasma Lactic Acid Efrain 1.1 (0.7-2.0) mmol/L Calcium (8.4-10.2) mg/dL Magnesium (1.6-2.3) mg/dL Total Bilirubin (0.2-1.3) mg/dL AST (14-36) U/L ALT (4-34) U/L Alkaline Phosphatase (38-126) U/L Troponin I <0.012 (0.000-0.034) ng/mL Total Protein (6.3-8.2) g/dL Albumin (3.5-5.0) g/dL Stool Occult Blood Negative (Negative) Disposition <Verónica Willard - Last Filed: 12/05/22 19:35> Is patient prescribed a controlled substance at d/c from ED?: No Time of Disposition: 21:00 <Amelie Bryan - Last Filed: 12/06/22 01:21> Clinical Impression: Vaginal bleeding Disposition: HOME SELF-CARE Condition: Stable Instructions (If sedation given, give patient instructions): Abnormal (Dysfunctional) Uterine Bleeding (ED) Additional Instructions: You are not bleeding from your rectum. You need to follow up with your obgyn oncologist for management of your vaginal bleeding. Referrals: Fela Alicea MD [Primary Care Provider] - 1-2 days
[2022-12-05 19:57] LABS: Basophils # (A) 0.1 k/uL (0-0.2); Basophils % (A) 0 %; Eosinophils # (A) 0.4 k/uL (0-0.7); Eosinophils % (A) 3 %; HGB 11.6 gm/dL (11.4-16.0); Lymphocytes # (A) 2.5 k/uL (1.0-4.8); Lymphocytes % (A) 16 %; MCH 28.6 pg (25.0-35.0); MCHC 33.2 g/dL (31.0-37.0); MCV 86.1 fL (80.0-100.0); Mean Platelet Volume 7.7; Monocytes # (A) 0.7 k/uL (0-1.0); Monocytes % (A) 4 %; Neutrophils # (A) 12.4 k/uL (1.3-7.7); Neutrophils % (A) 76 %; Platelet Count 452 k/uL (150-450); Poikilocytosis Slight; RBC 4.06 m/uL (3.80-5.40); RDW 15.3 % (11.5-15.5); WBC 16.3 k/uL (3.8-10.6)
[2022-12-05] MEDS ORDERED: MORPHINE SULFATE 4 MG/ML SYRINGE IVP STA (20:00)
[2022-12-05 20:04] LABS: Partial Thromboplastin Time 23.3 sec (22.0-30.0); Prothrombin Time 10.5 sec (9.0-12.0)
[2022-12-05 20:07] LABS: ALT 24 U/L (4-34); AST 30 U/L (14-36); African American GFR (CKD) 48 (>60 ml/min/1.73 sqM); Albumin 3.9 g/dL (3.5-5.0); Alkaline Phosphatase 91 U/L (38-126); Anion Gap 13 mmol/L; Blood Urea Nitrogen 29 mg/dL (7-17); Calcium 9.4 mg/dL (8.4-10.2); Carbon Dioxide 16 mmol/L (22-30); Chloride 111 mmol/L (98-107); Glucose 221 mg/dL (74-99); Magnesium 1.8 mg/dL (1.6-2.3); Non-African American GFR(CKD) 42 (>60 ml/min/1.73 sqM); Potassium 4.4 mmol/L (3.5-5.1); Sodium 140 mmol/L (137-145); Total Bilirubin 0.6 mg/dL (0.2-1.3); Total Protein 7.4 g/dL (6.3-8.2)
[2022-12-05 21:21] VITALS: BP 133/85; PULSE 118; RESP 18
== END 2022-12-05 22:53 | disposition home or self-care (01) ==
LOC: EC 17:51
DX: N93.9 Abnormal uterine and vaginal bleeding, unspecified (principal); J44.9 Chronic obstructive pulmonary disease, unspecified; E11.9 Type 2 diabetes mellitus without complications; I10 Essential (primary) hypertension; M06.9 Rheumatoid arthritis, unspecified; Z86.718 Personal history of other venous thrombosis and embolism; F41.9 Anxiety disorder, unspecified; Z88.7 Allergy status to serum and vaccine; Z88.8 Allergy status to other drugs, medicaments and biological substances; Z88.2 Allergy status to sulfonamides; Z88.1 Allergy status to other antibiotic agents; Z79.4 Long term (current) use of insulin; Z79.01 Long term (current) use of anticoagulants; Z79.84 Long term (current) use of oral hypoglycemic drugs; Z79.899 Other long term (current) drug therapy
CPT/HCPCS: 36415; 80053; 83605; 83735; 84484; 85025; 85610; 85730; 82272; 99285; 96374; J2270; 86850; 86900; 86901

== ENCOUNTER 2022-12-17 18:43 | Emergency (ER) | payer MEDICARE ==
[2022-12-17 19:05] VITALS: BP 139/94; PULSE 126; RESP 20; TEMP 98.9
[2022-12-17] MEDS ORDERED: MORPHINE SULFATE 4 MG/ML SYRINGE IVP STA (19:12)
[2022-12-17] MEDS ORDERED: SODIUM CHLORIDE 0.9% 1,000 ML IV ONE (19:12)
--- NOTE | 2022-12-17 19:23 | ED ---
General Adult HPI - General Chief complaint: Nausea/Vomiting/Diarrhea Stated complaint: N/V, Vaginal Bleeding Time Seen by Provider: 12/17/22 18:54 Source: patient Mode of arrival: EMS Limitations: physical limitation - History of Present Illness Initial comments: This is a 57-year-old female with a past medical history including endometrial cancer presents the emergency department via EMS for nausea, vomiting and continued vaginal bleeding. The patient has been seen multiple times in the emergency department for the same complaint. The patient stated that she has been unable to keep any food down and has continued nausea and vomiting as well as pain secondary to be endometrial cancer. The patient stated that she has attempted to talk to her oncologist but stated that "the CV multiple times to establish my pain and they won't give me any pain medications." The patient is been seen in the emergency department several times for continued vaginal bleeding as well as pain medications. The patient stated that her complaints today are similar to her previous episodes in the emergency department. The patient denied any other acute pain or complaints currently and did state that she receive Zofran by EMS and stated that it did improve her symptoms. The patient to rest in bed comfortably on my evaluation. - Related Data Home Medications Medication Instructions Recorded Confirmed Montelukast [Singulair] 10 mg PO HS 01/09/17 11/21/22 Albuterol Inhaler [Ventolin Hfa 2 puff INHALATION RT-Q4H PRN 01/14/17 11/21/22 Inhaler] allopurinoL [Zyloprim] 100 mg PO BID 01/21/22 11/21/22 Atorvastatin [Lipitor] 10 mg PO HS 02/15/22 11/21/22 Ondansetron [Zofran] 4 mg PO Q12HR PRN 02/15/22 11/21/22 Hydroxychloroquine Sulfate 200 mg PO BID 04/13/22 11/21/22 [Plaquenil] hydrOXYzine HCL [Atarax] 25 mg PO QID 04/13/22 11/21/22 FLUoxetine HCL [PROzac] 20 mg PO BID 10/27/22 11/21/22 Pantoprazole [Protonix] 40 mg PO BID 10/27/22 11/21/22 Insulin Detemir (Levemir) [Levemir] 25 unit SQ BID 11/06/22 11/21/22 Empagliflozin [Jardiance] 10 mg PO DAILY 11/21/22 11/21/22 Previous Rx's Medication Instructions Recorded Acetaminophen Tab [Tylenol] 650 mg PO Q6HR PRN tab 03/28/22 INSULIN ASPART (NovoLOG) [NovoLOG 0 unit SQ ACHS each 11/22/22 (formulary)] Apixaban [Eliquis] 2.5 mg PO BID #60 tab 12/02/22 Doxycycline [Vibramycin] 100 mg PO BID 10 Days #20 capsule 12/02/22 Gabapentin 300 mg PO BID #0 12/02/22 INSULIN ASPART (NovoLOG) [NovoLOG 10 unit SQ AC-TID #10 ml 12/02/22 (formulary)] Metoprolol Tartrate [Lopressor] 12.5 mg PO DAILY 30 Days #30 tab 12/02/22 Sennosides [Senokot] 8.6 mg PO BID #30 tab 12/02/22 HYDROcodone/APAP 5-325MG [Frierson 1 tab PO Q6HR PRN 3 Days #12 tab 12/17/22 5-325] Loperamide [Imodium] 2 mg PO BID #30 capsule 12/17/22 Allergies Allergy/AdvReac Type Severity Reaction Status Date / Time ciprofloxacin [From Cipro] Allergy Swelling Verified 12/08/22 02:59 diphenhydramine Allergy Swelling Verified 12/08/22 02:59 [From Benadryl] Influenza Virus Vaccines Allergy Unknown Verified 12/08/22 02:59 iodine Allergy Swelling Verified 12/08/22 02:59 propoxyphene Allergy Swelling Verified 12/08/22 02:59 [From Darvocet-N] red dye Allergy Swelling Verified 12/08/22 02:59 sulfacetamide Allergy Swelling Verified 12/08/22 02:59 [From Sulfamide] yellow dye Allergy Swelling Verified 12/08/22 02:59 Review of Systems ROS Statement: Those systems with pertinent positive or pertinent negative responses have been documented in the HPI. ROS Other: All systems not noted in ROS Statement are negative. Past Medical History Past Medical History: Cancer, COPD, Diabetes Mellitus, Deep Vein Thrombosis (DVT), Hypertension, Renal Disease, Rheumatoid Arthritis (RA), Thyroid Disorder Additional Past Medical History / Comment(s): O2 @ 4L. SLE LUPUS. STAGE 3 KIDNEY DISEASE. Leukemia, GRAVES DZ , kidney stones, gout, Uterine cancer (no surgery, radiation only) History of Any Multi-Drug Resistant Organisms: Other MDRO Past Surgical History: No Surgical Hx Reported Additional Past Surgical History / Comment(s): BILATERAL ARTHROSCOPY KNEES. D & C (MISCARRIAGES). Past Anesthesia/Blood Transfusion Reactions: No Reported Reaction Past Psychological History: Anxiety Smoking Status: Never smoker Past Alcohol Use History: None Reported Past Drug Use History: None Reported - Past Family History Mother Family Medical History: Congestive Heart Failure (CHF), Diabetes Mellitus Father Family Medical History: Congestive Heart Failure (CHF), Dialysis, Hypertension General Exam Limitations: no limitations General appearance: alert, in no apparent distress, obese Head exam: Present: atraumatic, normocephalic, normal inspection Eye exam: Present: normal appearance, PERRL Pupils: Present: normal accommodation ENT exam: Present: normal exam, normal oropharynx, mucous membranes moist Neck exam: Present: normal inspection, full ROM Respiratory exam: Present: normal lung sounds bilaterally Cardiovascular Exam: Present: normal rhythm, tachycardia GI/Abdominal exam: Present: soft, tenderness (TTP over the lower abdominal quadrants), normal bowel sounds Extremities exam: Present: normal inspection, full ROM Back exam: Present: normal inspection, full ROM Neurological exam: Present: alert, oriented X3, CN II-XII intact Psychiatric exam: Present: normal affect, normal mood Skin exam: Present: warm, dry Course Vital Signs 12/17/22 18:48 Temperature 98.9 F Pulse Rate 126 H Respiratory 20 Rate Blood Pressure 139/94 O2 Sat by Pulse 99 Oximetry Medical Decision Making - Medical Decision Making Was pt. sent in by a medical professional or institution (, PA, INSTRUMENT AND CONTROL TECHNICIAN, urgent care, hospital, or halfway...) When possible be specific @ -No Did you speak to anyone other than the patient for history (EMS, parent, family, police, friend...)? What history was obtained from this source @ -No Did you review nursing and triage notes (agree or disagree)? Why? @ -I reviewed and agree with nursing and triage notes Were old charts reviewed (outside hosp., previous admission, EMS record, old EKG, old radiological studies, urgent care reports/EKG's, halfway records)? Report findings @ -No old charts were reviewed Differential Diagnosis (chest pain, altered mental status, abdominal pain women, abdominal pain men, vaginal bleeding, weakness, fever, dyspnea, syncope, headache, dizziness, GI bleed, back pain, seizure, CVA, palpatations, mental health)? @ -Intractable cancer pain, gastroenteritis, nausea, vomiting EKG interpreted by me (3pts min.). @ -None X-rays interpreted by me (1pt min.). @ -None done CT interpreted by me (1pt min.). @ -None done U/S interpreted by me (1pt. min.). @ -None done What testing was considered but not performed or refused? (CT, X-rays, U/S, labs)? Why? @ -CT of the abdomen and pelvis was considered however the patient had chronic abdominal pain secondary to endometrial cancer and denied of any acute changes therefore the patient did not have any imaging ordered at this time. What meds were considered but not given or refused? Why? @ -None Did you discuss the management of the patient with other professionals (pr ofessionals i.e. , PA, INSTRUMENT AND CONTROL TECHNICIAN, lab, RT, psych nurse, social services analyst, car pilot, teacher, physics technical officer, community case manager)? Give summary @ -No Was smoking cessation discussed for >3mins.? @ -No Was critical care preformed (if so, how long)? @ -No Were there social determinants of health that impacted care today? How? (Homelessness, low income, unemployed, alcoholism, drug addiction, transport ation, low edu. Level, literacy, decrease access to med. care, retirement, rehab)? @ -No Was there de-escalation of care discussed even if they declined (Discuss DNR or withdrawal of care, Hospice)? DNR status @ -No What co-morbidities impacted this encounter? (DM, HTN, Smoking, COPD, CAD, Cancer, CVA, ARF, Chemo, Hep., AIDS, mental health diagnosis, sleep apnea, morbid obesity)? @ -Endometrial carcinoma, diabetes, hypertension Was patient admitted / discharged? Hospital course, mention meds given and route, prescriptions, significant lab abnormalities, going to OR and other pertinent info. @ -The patient was seen and evaluated emergency department. The patient has been seen multiple times for the similar complaints but did complain of nausea and vomiting at this time. Laboratory workup was obtained and was within normal limits and the patient's hemoglobin was at her baseline and unchanged. The patient was given Zofran by EMS as well as 1 L no sealing fluid and on reevaluation had improvement of her pain and symptoms. On reevaluation, the patient stated that she had continued pain but was improved with pain medications here. The patient had a normal workup and was stable with her chronic complaints. The patient does have a follow-up appointment with her HOSPICE LIAISON oncologist on Friday and she was advised to follow-up. I had an extensive conversation with the patient regarding following up as I could give her 3 days worth of pain medications here in the emergency department for pain control as well as a prescription for Imodium as she did have diarrhea. The patient arty had Zofran at home and was advised to continue to hydrate and try to increase her by mouth intake as tolerated. The patient was ultimately agreeable to this and was discharged home via EMS in stable condition. Undiagnosed new problem with uncertain prognosis? @ -No Drug Therapy requiring intensive monitoring for toxicity (Heparin, Nitro, Insulin, Cardizem)? @ -No Were any procedures done? @ -No Diagnosis/symptom? @ -Chronic pain secondary to endometrial carcinoma, gastroenteritis Acute, or Chronic, or Acute on Chronic? @ -Acute on chronic Uncomplicated (without systemic symptoms) or Complicated (systemic symptoms)? @ -Uncomplicated Side effects of treatment? @ -No Exacerbation, Progression, or Severe Exacerbation? @ -No Poses a threat to life or bodily function? How? (Chest pain, USA, VT, pneumonia, PE, COPD, DKA, ARF, appy, cholecystitis, CVA, Diverticulitis, Homicidal, Suicidal, threat to staff... and all critical care pts) @ -No - Lab Data Result diagrams: 12/17/22 19:43 12/17/22 19:43 Lab Results 12/17/22 12/17/22 Range/Units 19:43 19:43 WBC 7.1 (3.8-10.6) k/uL RBC 3.64 L (3.80-5.40) m/uL Hgb 10.8 L (11.4-16.0) gm/dL Hct 31.3 L (34.0-46.0) % MCV 86.0 (80.0-100.0) fL MCH 29.6 (25.0-35.0) pg MCHC 34.4 (31.0-37.0) g/dL RDW 15.0 (11.5-15.5) % Plt Count 256 (150-450) k/uL MPV 7.7 Neutrophils % 59 % Lymphocytes % 28 % Monocytes % 6 % Eosinophils % 5 % Basophils % 0 % Neutrophils # 4.2 (1.3-7.7) k/uL Lymphocytes # 2.0 (1.0-4.8) k/uL Monocytes # 0.4 (0-1.0) k/uL Eosinophils # 0.3 (0-0.7) k/uL Basophils # 0.0 (0-0.2) k/uL Sodium 141 (137-145) mmol/L Potassium 3.8 (3.5-5.1) mmol/L Chloride 114 H (98-107) mmol/L Carbon Dioxide 15 L (22-30) mmol/L Anion Gap 12 mmol/L BUN 16 (7-17) mg/dL Creatinine 0.97 (0.52-1.04) mg/dL Est GFR (CKD-EPI)AfAm 76 (>60 ml/min/1.73 sqM) Est GFR (CKD-EPI)NonAf 66 (>60 ml/min/1.73 sqM) Glucose 134 H (74-99) mg/dL Calcium 8.9 (8.4-10.2) mg/dL Magnesium 1.5 L (1.6-2.3) mg/dL Total Bilirubin 0.7 (0.2-1.3) mg/dL AST 20 (14-36) U/L ALT 16 (4-34) U/L Alkaline Phosphatase 97 (38-126) U/L Total Protein 6.2 L (6.3-8.2) g/dL Albumin 3.3 L (3.5-5.0) g/dL Lipase 128 (23-300) U/L Disposition Clinical Impression: Nausea & vomiting, Cancer associated pain Disposition: HOME SELF-CARE Condition: Stable Instructions (If sedation given, give patient instructions): Acute Nausea and Vomiting (ED) Prescriptions: Loperamide [Imodium] 2 mg PO BID #30 capsule HYDROcodone/APAP 5-325MG [Frierson 5-325] 1 tab PO Q6HR PRN 3 Days #12 tab PRN Reason: Pain Is patient prescribed a controlled substance at d/c from ED?: Yes When asked, does pt state using other controlled substances?: No If prescribed controlled substance>3 days was MAPS reviewed?: Prescribed <3 Days If opioid is for acute pain is fill amount 7 days or less?: Yes If Rx opioid, was Start Talking consent form obtained?: Yes Referrals: Fela Alicea MD [Primary Care Provider] - 1-2 days Braxton Euceda MD [STAFF PHYSICIAN] - 12/20/22 Time of Disposition: 20:30
[2022-12-17 19:49] LABS: Basophils % (A) 0 %; Eosinophils # (A) 0.3 k/uL (0-0.7); Eosinophils % (A) 5 %; HCT 31.3 % (34.0-46.0); HGB 10.8 gm/dL (11.4-16.0); Lymphocytes % (A) 28 %; MCH 29.6 pg (25.0-35.0); MCHC 34.4 g/dL (31.0-37.0); Mean Platelet Volume 7.7; Monocytes # (A) 0.4 k/uL (0-1.0); Monocytes % (A) 6 %; Neutrophils # (A) 4.2 k/uL (1.3-7.7); Neutrophils % (A) 59 %; Platelet Count 256 k/uL (150-450); RBC 3.64 m/uL (3.80-5.40); WBC 7.1 k/uL (3.8-10.6)
[2022-12-17 19:57] LABS: ALT 16 U/L (4-34); AST 20 U/L (14-36); African American GFR (CKD) 76 (>60 ml/min/1.73 sqM); Albumin 3.3 g/dL (3.5-5.0); Alkaline Phosphatase 97 U/L (38-126); Anion Gap 12 mmol/L; Blood Urea Nitrogen 16 mg/dL (7-17); Calcium 8.9 mg/dL (8.4-10.2); Carbon Dioxide 15 mmol/L (22-30); Chloride 114 mmol/L (98-107); Glucose 134 mg/dL (74-99); Lipase 128 U/L (23-300); Magnesium 1.5 mg/dL (1.6-2.3); Non-African American GFR(CKD) 66 (>60 ml/min/1.73 sqM); Potassium 3.8 mmol/L (3.5-5.1); Sodium 141 mmol/L (137-145); Total Bilirubin 0.7 mg/dL (0.2-1.3); Total Protein 6.2 g/dL (6.3-8.2)
[2022-12-17] MEDS ORDERED: HYDROcodone/APAP 5-325MG 1 EACH TAB PO STA (20:38)
== END 2022-12-17 21:44 | disposition home or self-care (01) ==
LOC: EC 18:43
DX: G89.3 Neoplasm related pain (acute) (chronic) (principal); R11.2 Nausea with vomiting, unspecified; J44.9 Chronic obstructive pulmonary disease, unspecified; I12.9 Hypertensive chronic kidney disease with stage 1 through stage 4 chronic kidney disease, or unspecified chronic kidney disease; E11.22 Type 2 diabetes mellitus with diabetic chronic kidney disease; N18.30 Chronic kidney disease, stage 3 unspecified; Z79.84 Long term (current) use of oral hypoglycemic drugs; Z79.899 Other long term (current) drug therapy; Z86.59 Personal history of other mental and behavioral disorders; Z79.4 Long term (current) use of insulin; Z88.1 Allergy status to other antibiotic agents; Z88.7 Allergy status to serum and vaccine; Z91.041 Radiographic dye allergy status; Z88.2 Allergy status to sulfonamides; Z88.8 Allergy status to other drugs, medicaments and biological substances
CPT/HCPCS: 36415; 80053; 83690; 83735; 85025; 99285; 96374; 96361; J2270

== ENCOUNTER → 2023-03-26 | Outpatient (CLI) | payer MEDICARE ==
--- NOTE | 2023-03-26 15:09 | CT ---
EXAMINATION TYPE: CT ChestAbdPelvis wo con DATE OF EXAM: 03/26/2023 COMPARISON: 11/26/2022 HISTORY: endometrium CA f/u CT DLP: 1240mGycm Unenhanced CT of the Chest, Abdomen and Pelvis Unenhanced CT of the chest ,abdomen and pelvis is performed. The lack of intravenous contrast limits evaluation of the solid and hollow viscera. Oral contrast: no CT Chest: LUNGS: Left apical parenchymal scarring. The lungs are clear and free of infiltrate or atelectasis. No pulmonary nodule or mass is detected. No pleural effusion or CT evidence of interstitial lung dis ease. MEDIASTINUM: Thoracic aorta is of normal caliber. The heart is not enlarged. No evidence for media stinal mass or adenopathy. HILAR STRUCTURES: No evidence for mass. No hilar adenopathy is appreciated. OTHER: No significant abnormality. CONTRAST CT ABDOMEN AND PELVIS: LIVER/GB: The gallbladder is filled with gallstones. No space occupying hepatic lesion. Biliary tree is of normal caliber. PANCREAS: No inflammation. No distinct mass. SPLEEN: No splenic enlargement. No lesion seen. ADRENALS: No nodule. No thickening. KIDNEYS/BLADDER: Mild atrophic changes of the right kidney. No hydronephrosis. No nephrolithiasis. No distinct renal mass. BOWEL: Normal appendix. Normal bowel caliber. No inflammation. GENITAL ORGANS: Enlargement of the uterus is redemonstrated. IUD is noted to be in place. LYMPH NODES: No greater than 1cm abdominal or pelvic lymph nodes are appreciated. AORTA: No significant abnormality. OSSEOUS STRUCTURES: No significant abnormality is seen. OTHER: No significant additional abnormality is seen. IMPRESSION: 1. Again noted is enlargement of the uterus with IUD in place. 2. Gallbladder is filled with calcified gallstones. 3. Mild atrophic changes right kidney.
== END | disposition home or self-care (01) ==
LOC: RADCTMAIN 12:33
PROVIDERS: ATTEND Obstetrics & Gynecology
DX: C54.1 Malignant neoplasm of endometrium (principal); N85.2 Hypertrophy of uterus; K80.20 Calculus of gallbladder without cholecystitis without obstruction; N26.1 Atrophy of kidney (terminal); J98.4 Other disorders of lung; Z97.5 Presence of (intrauterine) contraceptive device
CPT/HCPCS: 71250; 74176

== ENCOUNTER 2023-05-13 15:14 | Observation (INO) | payer MEDICARE ==
--- NOTE | 2023-05-13 15:21 | ED ---
General Adult HPI - General Source: patient, EMS, RN notes reviewed Mode of arrival: EMS Limitations: no limitations <Nic Ac - Last Filed: 05/13/23 15:18> - General Source: RN notes reviewed, old records reviewed Mode of arrival: EMS Limitations: no limitations - History of Present Illness -: days(s) Location: abdomen Radiation: non-radiation Severity scale (1-10): 6 Quality: sharp Consistency: intermittent, colicky Improves with: none Worsens with: none Associated Symptoms: loss of appetite, nausea/vomiting, weakness Treatments Prior to Arrival: NSAID <Elmer Tipton - Last Filed: 05/21/23 11:17> - General Stated complaint: Abd Pain Time Seen by Provider: 05/13/23 15:19 - History of Present Illness Initial comments: 57-year-old female presents emergency department via EMS for complaint of abdominal pain. Patient was scheduled to see Dr. Chairez today at [facility] for gallbladder issues. Patient states pain worsened and could not tolerate and presented here. (Nic Ac) This is a 57-year-old female who is presenting with abdominal pain today. Biliary type pain abdominal colic with multiple medical comorbidities, patient did see Dr. Giraldo who sent patient to the emergency department for further evaluation, patient will be admitted for consultation and pain control (Elmer Tipton) - Related Data Home Medications Medication Instructions Recorded Confirmed Montelukast [Singulair] 10 mg PO DAILY 01/09/17 05/13/23 allopurinoL [Zyloprim] 100 mg PO BID 01/21/22 05/13/23 Atorvastatin [Lipitor] 10 mg PO DAILY 02/15/22 05/13/23 Ondansetron [Zofran] 4 mg PO Q12HR PRN 02/15/22 05/13/23 Hydroxychloroquine Sulfate 200 mg PO BID 04/13/22 05/13/23 [Plaquenil] hydrOXYzine HCL [Atarax] 25 mg PO QID 04/13/22 05/13/23 FLUoxetine HCL [PROzac] 20 mg PO BID 10/27/22 05/13/23 Pantoprazole [Protonix] 40 mg PO BID 10/27/22 05/13/23 Insulin Detemir (Levemir) [Levemir] 25 unit SQ HS 11/06/22 05/13/23 Empagliflozin [Jardiance] 10 mg PO DAILY 11/21/22 05/13/23 Anastrozole 1 mg PO DAILY 05/13/23 05/13/23 Aspirin EC [Ecotrin Low Dose] 81 mg PO DAILY 05/13/23 05/13/23 Furosemide [Lasix] 80 mg PO DAILY 05/13/23 05/13/23 Gabapentin 600 mg PO BID 05/13/23 05/13/23 Insulin Regular, Human [NovoLIN R] 25 unit SQ DAILY 05/13/23 05/13/23 Insulin Regular, Human [NovoLIN R] See Protocol SQ AC-BID@1200,1800 05/13/23 05/13/23 Metoprolol Tartrate [Lopressor] 50 mg PO BID 05/13/23 05/13/23 gemfibroziL [Lopid] 600 mg PO BID 05/13/23 05/13/23 Previous Rx's Medication Instructions Recorded Apixaban [Eliquis] 2.5 mg PO BID #60 tab 12/02/22 HYDROcodone/APAP 5-325MG [[place] 1 tab PO Q6HR PRN 3 Days #12 tab 05/16/23 5-325] cefUROXime axetiL [Ceftin] 500 mg PO BID 2 Days #4 tab 05/16/23 Allergies Allergy/AdvReac Type Severity Reaction Status Date / Time ciprofloxacin [From Cipro] Allergy Swelling Verified 05/14/23 14:26 diphenhydramine Allergy Swelling Verified 05/14/23 14:26 [From Benadryl] Influenza Virus Vaccines Allergy Unknown Verified 05/14/23 14:26 iodine Allergy Swelling Verified 05/14/23 14:26 propoxyphene Allergy Swelling Verified 05/14/23 14:26 [From Darvocet-N] red dye Allergy Swelling Verified 05/14/23 14:26 sulfacetamide Allergy Swelling Verified 05/14/23 14:26 [From Sulfamide] yellow dye Allergy Swelling Verified 05/14/23 14:26 Review of Systems ROS Other: All systems not noted in ROS Statement are negative. <Nic Ac - Last Filed: 05/13/23 15:18> ROS Other: All systems not noted in ROS Statement are negative. <Elmer Tipton - Last Filed: 05/21/23 11:17> ROS Statement: Those systems with pertinent positive or pertinent negative responses have been documented in the HPI. Past Medical History Past Medical History: Cancer, COPD, Diabetes Mellitus, Deep Vein Thrombosis (DVT), Hypertension, Renal Disease, Rheumatoid Arthritis (RA), Thyroid Disorder Additional Past Medical History / Comment(s): O2 @ 4L. SLE LUPUS. STAGE 3 KIDNEY DISEASE. Leukemia, GRAVES DZ , kidney stones, gout, Uterine cancer (no surgery, radiation only) History of Any Multi-Drug Resistant Organisms: Other MDRO Past Surgical History: No Surgical Hx Reported Additional Past Surgical History / Comment(s): BILATERAL ARTHROSCOPY KNEES. D & C (MISCARRIAGES). Past Anesthesia/Blood Transfusion Reactions: No Reported Reaction Past Psychological History: Anxiety Smoking Status: Never smoker Past Alcohol Use History: None Reported Past Drug Use History: None Reported - Past Family History Mother Family Medical History: Congestive Heart Failure (CHF), Diabetes Mellitus Father Family Medical History: Congestive Heart Failure (CHF), Dialysis, Hypertension <Nic Ac - Last Filed: 05/13/23 15:18> General Exam Limitations: no limitations General appearance: alert, in no apparent distress Head exam: Present: atraumatic, normocephalic, normal inspection ENT exam: Present: normal exam, mucous membranes moist <Nic Ac - Last Filed: 05/13/23 15:18> General appearance: alert, in no apparent distress Head exam: Present: atraumatic, normocephalic, normal inspection Eye exam: Present: normal appearance, PERRL, EOMI. Absent: scleral icterus, conjunctival injection, periorbital swelling ENT exam: Present: normal exam, mucous membranes moist Neck exam: Present: normal inspection. Absent: tenderness, meningismus, lymphadenopathy Respiratory exam: Present: normal lung sounds bilaterally. Absent: respiratory distress, wheezes, rales, rhonchi, stridor Cardiovascular Exam: Present: regular rate, normal rhythm, normal heart sounds. Absent: systolic murmur, diastolic murmur, rubs, gallop, clicks GI/Abdominal exam: Present: soft, normal bowel sounds. Absent: distended, tenderness, guarding, rebound, rigid Extremities exam: Present: normal inspection, full ROM, normal capillary refill. Absent: tenderness, pedal edema, joint swelling, calf tenderness Back exam: Present: normal inspection Neurological exam: Present: alert, oriented X3, CN II-XII intact Psychiatric exam: Present: normal affect, normal mood Skin exam: Present: warm, dry, intact, normal color. Absent: rash <Elmer Tipton - Last Filed: 05/21/23 11:17> - General Exam Comments Initial Comments: Visual Physical Exam Vital signs reviewed General: Well-appearing, nontoxic, no acute distress. Head: Normocephalic, atraumatic Eyes: PERRLA, EOMI ENT: Airway patent Chest: Nonlabored breathing Skin: No visual rash, normal skin tone Neuro: Alert and oriented 3 Musculoskeletal: No gross abnormalities (Nic Ac) Course <Elmer Tipton - Last Filed: 05/21/23 11:17> Vital Signs 05/13/23 05/13/23 05/13/23 15:22 17:35 18:01 Temperature 98.3 F 98.2 F Pulse Rate 100 88 85 Respiratory 20 18 17 Rate Blood Pressure 167/89 161/94 164/93 O2 Sat by Pulse 99 100 100 Oximetry 05/13/23 18:43 Temperature 99.2 F Pulse Rate Respiratory Rate Blood Pressure O2 Sat by Pulse Oximetry - Reevaluation(s) Reevaluation #1: 05/13/23 17:37 Medical records reviewed (Elmer Tipton) Reevaluation #2: 05/13/23 17:37 Patient's symptoms improved (Elmer Tipton) Reevaluation #3: 05/13/23 17:37 Patient informed of results questions answered (Elmer Tipton) Reevaluation #4: 05/13/23 17:37 Was pt. sent in by a medical professional or institution (, PA, DIRECT MARKETING COORDINATOR, urgent care, hospital, or longterm...) When possible be specific @ -no Did you speak to anyone other than the patient for history (EMS, parent, family, police, friend...)? What history was obtained from this source @ -no Did you review nursing and triage notes (agree or disagree)? Why? @ -agree Are old charts reviewed (outside hosp., previous admission, EMS record, old EKG, old radiological studies, urgent care reports/EKG's, longterm records)? Report findings @ -yes Differential Diagnosis (chest pain, altered mental status, abdominal pain women, abdominal pain men, vaginal bleeding, weakness, fever, dyspnea, syncope, headache, dizziness, GI bleed, back pain, seizure, CVA, palpatations, mental health, musculoskeletal)? @ -prior EKG interpreted by me (3pts min.). @ -no X-rays interpreted by me (1pt min.). @ -no CT interpreted by me (1pt min.). @ -no U/S interpreted by me (1pt. min.). @ -no What testing was considered but not performed or refused? (CT, X-rays, U/S, labs)? Why? @ -none What meds were considered but not given or refused? Why? @ -none Did you discuss the management of the patient with other professionals (professionals i.e. , PA, DIRECT MARKETING COORDINATOR, lab, RT, psych nurse, psychotherapist social worker, radiographer cardiac catheterization, teacher, special forces officer, registered nurse hh case manager)? Give summary @ -no Was smoking cessation discussed for >3mins.? @ -no Were there social determinants of health that impacted care today? How? (Homelessness, low income, unemployed, alcoholism, drug addiction, transportation, low edu. Level, literacy, decrease access to med. care, [facility], rehab)? @ -none Was there de-escalation of care discussed even if they declined (Discuss DNR or withdrawal of care, Hospice)? DNR status @ -no What co-morbidities impacted this encounter? (DM, HTN, Smoking, COPD, CAD, Cancer, CVA, ARF, Chemo, Hep., AIDS, mental health diagnosis, sleep apnea, morbid obesity)? @ -none Was patient admitted / discharged? Hospital course, mention meds given and route, prescriptions, significant lab abnormalities, going to OR and other pertinent info. @ - 57 female will be admitted for Dr. Chairez to see with, patient is well- known to the emergency department for multiple different medical issues and comorbidities but is presenting with abdominal pain today with need for gallbladder removal per patient Admitted Was critical care preformed (if so, how long)? @ -no Diagnosis/symptom? @ -Biliary colic, abdominal pain Undiagnosed new problem with uncertain prognosis? @ -no Drug Therapy requiring intensive monitoring for toxicity (Heparin, Nitro, Insulin, Cardizem)? @ -no Were any procedures done? @ -no Acute, or Chronic, or Acute on Chronic? @ -Acute Uncomplicated (without systemic symptoms) or Complicated (systemic symptoms)? @ -Complicated Side effects of treatment? @ -no Exacerbation, Progression, or Severe Exacerbation? @ -exacerbation Poses a threat to life or bodily function? How? (Chest pain, [place], [place], pneumonia, PE, COPD, DKA, ARF, appy, cholecystitis, CVA, Diverticulitis, Homicidal, Suicidal, threat to staff... and all critical care pts) @ -yes postoperative complications (Elmer Tipton) Reevaluation #5: 05/13/23 17:38 Differential Abdominal Pain Women: Appendicitis, Cholecystitis, diverticulosis, ischemic bowel, pancreatitis, h epatitis, UTI, gastroenteritis, AAA, incarcerated hernia, bowel obstruction, constipation, inflammatory bowel, hepatitis, peptic ulcer disease, splenic infarction, perforated viscus, vulvitis, ovarian torsion, PID, kidney stone, placenta abruption, this is not meant to be an all-inclusive list (Elmer Tipton) - Consultations Consultation #1: Spoke with Dr. Wen who agrees to admit this patient (Elmer Tipton) Medical Decision Making <Nic Ac - Last Filed: 05/13/23 15:18> - Lab Data Result diagrams: 05/16/23 05:39 05/16/23 05:44 <Elmer Tipton - Last Filed: 05/21/23 11:17> - Medical Decision Making I completed the quick note portion of this chart signed Nic Ac PA-C (Nic Ac) 57 female will be admitted for Dr. Chairez to see with, patient is well-known to the emergency department for multiple different medical issues and comorbidities but is presenting with abdominal pain today with need for gall bladder removal per patient (Elmer Tipton) Disposition <Nic Ac - Last Filed: 05/13/23 15:18> Is patient prescribed a controlled substance at d/c from ED?: No Time of Disposition: 16:40 <Elmer Tipton - Last Filed: 05/21/23 11:17> Clinical Impression: Nausea & vomiting, Intractable abdominal pain, Biliary colic Disposition: ADMITTED IP TO THIS HOSP Condition: Fair
[2023-05-13] MEDS ORDERED: NALOXONE 0.4 MG/ML 1 ML VIAL IV PRN (16:25)
[2023-05-13] MEDS ORDERED: ONDANSETRON 4 MG/2 ML VIAL IVP PRN (16:25)
[2023-05-13] MEDS: SODIUM CHLORIDE 0.9% 1,000 ML IV SCH (17:57)
[2023-05-13] MEDS: HYDROmorphone 1 MG/ML 1 ML SYRINGE IVP PRN (17:59)
[2023-05-13 18:34] LABS: Basophils # (A) 0.1 k/uL (0-0.2); Basophils % (A) 1 %; Eosinophils # (A) 0.4 k/uL (0-0.7); Eosinophils % (A) 3 %; HCT 35.6 % (34.0-46.0); HGB 11.7 gm/dL (11.4-16.0); Lymphocytes # (A) 2.4 k/uL (1.0-4.8); Lymphocytes % (A) 18 %; MCH 28.4 pg (25.0-35.0); MCV 86.1 fL (80.0-100.0); Mean Platelet Volume 7.8; Monocytes # (A) 0.6 k/uL (0-1.0); Monocytes % (A) 5 %; Neutrophils # (A) 9.4 k/uL (1.3-7.7); Neutrophils % (A) 72 %; Platelet Count 382 k/uL (150-450); RBC 4.14 m/uL (3.80-5.40); RDW 14.6 % (11.5-15.5); WBC 13.1 k/uL (3.8-10.6)
[2023-05-13] MEDS ORDERED: hydrOXYzine HCL 25 MG TAB PO STA (18:39)
[2023-05-13 18:47] LABS: Appearance,Urine Cloudy (Clear); Bacteria,Urine Many /hpf; Bilirubin,Urine Negative (Negative); Blood,Urine Moderate (Negative); Color,Urine Yellow; Glucose,Urine (UA) 1+ (Negative); Ketones,Urine Negative (Negative); Leukocyte Esterase,Urine Large (Negative); Nitrite,Urine Positive (Negative); PH, Urine 5.5 (5.0-8.0); Protein,Urine 2+ (Negative); RBC,Urine 35 /hpf (0-5); Specific Gravity,Urine 1.017 (1.001-1.035); Squamous Epithelial Cell,Urine 1 /hpf (0-4); Urobilinogen,Urine <2.0 mg/dL (<2.0); WBC,Urine >182 /hpf (0-5)
[2023-05-13 18:55] LABS: ALT 18 U/L (4-34); AST 18 U/L (14-36); African American GFR (CKD) 65 (>60 ml/min/1.73 sqM); Albumin 3.9 g/dL (3.5-5.0); Alkaline Phosphatase 168 U/L (38-126); Anion Gap 11 mmol/L; Blood Urea Nitrogen 21 mg/dL (7-17); Calcium 9.4 mg/dL (8.4-10.2); Carbon Dioxide 18 mmol/L (22-30); Chloride 111 mmol/L (98-107); Glucose 220 mg/dL (74-99); Lipase 148 U/L (23-300); Non-African American GFR(CKD) 56 (>60 ml/min/1.73 sqM); Potassium 5.2 mmol/L (3.5-5.1); Sodium 140 mmol/L (137-145); Total Bilirubin 0.5 mg/dL (0.2-1.3)
[2023-05-13] MEDS: hydrOXYzine HCL 25 MG TAB PO SCH (21:22)
[2023-05-14] MEDS: HYDROmorphone 1 MG/ML 1 ML SYRINGE IVP PRN ×3 (00:12→12:53)
[2023-05-14 06:45] LABS: Glucose,Whole Blood 142 mg/dL (70-110)
[2023-05-14] MEDS: hydrOXYzine HCL 25 MG TAB PO SCH ×3 (08:07→20:46)
[2023-05-14] MEDS: SODIUM CHLORIDE 0.9% 1,000 ML IV SCH ×2 (08:07→17:58)
[2023-05-14] MEDS: PANTOPRAZOLE 40 MG/10 ML VIAL IV SCH (08:08)
[2023-05-14] MEDS ORDERED: DEXTROSE 50% SYRINGE 50 ML IVP PRN ×2 (09:41)
[2023-05-14] MEDS ORDERED: ALBUTEROL NEBULIZED 2.5 MG/3 ML INHALATION PRN (09:48)
[2023-05-14 09:50] LABS: ALT 20 U/L (4-34); AST 30 U/L (14-36); African American GFR (CKD) 55 (>60 ml/min/1.73 sqM); Albumin 3.5 g/dL (3.5-5.0); Alkaline Phosphatase 149 U/L (38-126); Anion Gap 11 mmol/L; Blood Urea Nitrogen 22 mg/dL (7-17); Calcium 9.1 mg/dL (8.4-10.2); Carbon Dioxide 16 mmol/L (22-30); Chloride 115 mmol/L (98-107); Glucose 173 mg/dL (74-99); Lipase 82 U/L (23-300); Magnesium 1.5 mg/dL (1.6-2.3); Non-African American GFR(CKD) 48 (>60 ml/min/1.73 sqM); Phosphorus 4.5 mg/dL (2.5-4.5); Potassium 5.4 mmol/L (3.5-5.1); Sodium 142 mmol/L (137-145); Total Bilirubin 0.8 mg/dL (0.2-1.3); Total Protein 6.7 g/dL (6.3-8.2)
[2023-05-14] MEDS: PIPERACILLIN-TAZOBACTAM 3.375 GM in SODIUM CHLORIDE 0.9% 100 ML IVPB SCH ×2 (09:53→17:54)
[2023-05-14] MEDS: INSULIN ASPART (NovoLOG) 100 UNIT/ML VIAL SQ SCH ×4 (09:55→20:46)
[2023-05-14 09:59] LABS: Basophils # (A) 0.1 k/uL (0-0.2); Basophils % (A) 1 %; Eosinophils # (A) 0.3 k/uL (0-0.7); Eosinophils % (A) 3 %; HGB 10.8 gm/dL (11.4-16.0); Hypochromasia Slight; Lymphocytes % (A) 21 %; MCHC 32.6 g/dL (31.0-37.0); MCV 88.8 fL (80.0-100.0); Monocytes # (A) 0.5 k/uL (0-1.0); Monocytes % (A) 6 %; Neutrophils # (A) 6.4 k/uL (1.3-7.7); Neutrophils % (A) 68 %; Platelet Count 324 k/uL (150-450); RBC 3.72 m/uL (3.80-5.40); RDW 14.4 % (11.5-15.5); WBC 9.4 k/uL (3.8-10.6)
[2023-05-14] MEDS ORDERED: CALCIUM GLUCONATE IN NACL 1 GM in SALINE 1 100ML.BAG IVPB ONE (10:39)
[2023-05-14] MEDS ORDERED: SODIUM BICARB 8.4% 50 ML SYR (1 MEQ/ML) IV ONE (10:39)
[2023-05-14] MEDS ORDERED: DEXTROSE 50% SYRINGE 50 ML IVP ONE (10:39)
[2023-05-14] MEDS ORDERED: INSULIN REGULAR 100 UNIT/ML VIAL (IV) IV ONE (10:39)
--- NOTE | 2023-05-14 12:02 | P.GSHP ---
History of Present Illness H&P Date: 05/14/23 CHIEF COMPLAINT: Abdominal pain HISTORY OF PRESENT ILLNESS: This is a 57-year-old female who presented to the hospital with complaints of right upper quadrant abdominal pain. She reports that she has been dealing with the pain for about 2 months but yesterday the pain became very severe. The pain was radiating into the back and her right shoulder. She had vomited multiple episodes of bile. She also is having diarrhea and felt febrile. Patient does have a complex medical history. That does include endometrial cancer and had undergone radiation treatment. Also history of leukemia, CHF and uncontrolled diabetes. She denies any prior surgical history. Her CT scan of the abdomen pelvis done on 03/26/2023 had shown enlargement of the uterus. Gallbladder is filled with calcified stones. Patient is on Eliquis for DVT. Last dose was a week ago. Patient did not take it due to her nausea and vomiting. PAST MEDICAL HISTORY: Endometrial cancer,COPD, uncontrolled Diabetes Mellitus, Deep Vein Thrombosis (DVT), Hypertension, Renal Disease, Rheumatoid Arthritis (RA), Thyroid Disorder, chronic home O2 4 L, lupus, stage III kidney disease, leukemia, Graves' disease PAST SURGICAL HISTORY: None MEDICATIONS: See below ALLERGIES: See below SOCIAL HISTORY: No illicit drug use. REVIEW OF SYSTEMS: CONSTITUTIONAL: Denies fever or chills. HEENT: Denies blurred vision, vision changes, or eye pain. Denies hemoptysis CARDIOVASCULAR: Denies chest pain or pressure. RESPIRATORY: No shortness of breath. GASTROINTESTINAL: See HPI for pertinent findings HEMATOLOGIC: Denies bleeding disorders. GENITOURINARY: Denies any blood in urine or increased urinary frequency. SKIN: Denies pruitis. Denies rash. PHYSICAL EXAM: VITAL SIGNS: Reviewed GENERAL: Well-developed in no acute distress. HEENT: No sclera icterus. Extraocular movements grossly intact. Moist buccal mucosa. Head is atraumatic, normocephalic. No nasal drainage. ABDOMEN: Soft. Obese. Nondistended. Tenderness with palpation right upper quadrant NEUROLOGIC: Alert and oriented. Cranial nerves II through XII grossly intact. LABORATORY DATA: WBC 13.1 down to 9.4 Hgb 11.7 down to 10.8 platelets 382 Sodium 142 potassium is 5.4 creatinine 1.26 magnesium 1.5 AST and ALT normal alk phos elevated at 149 Lipase 82 Urinalysis positive for infection IMAGING: Chest CT abdomen and pelvis again noted enlargement of the uterus with IUD in place. Gallbladder is filled with calcified stones. Mild hydropic changes right kidney. ASSESSMENT: 1. Acute on chronic cholecystitis 2. Cholelithiasis 3. Hypomagnesium 4. Hyperkalemia PLAN: -Patient scheduled for laparoscopic cholecystectomy today with Dr. Chairez -Keep patient n.p.o. -Start IV antibiotics -Continue IV fluids -Consult placed for medicine service -Medicine service is correcting elevated potassium. Repeat potassium level pending -Replace magnesium -Hold [facility] Phys[facility] Heavy Media Operator note has been reviewed by physician. Signing provider agrees with the documented findings, assessment, and plan of care. Past Medical History Past Medical History: Cancer, COPD, Diabetes Mellitus, Deep Vein Thrombosis (DV T), Hypertension, Renal Disease, Rheumatoid Arthritis (RA), Thyroid Disorder Additional Past Medical History / Comment(s): O2 @ 4L. SLE LUPUS. STAGE 3 KIDNEY DISEASE. Leukemia, GRAVES DZ , kidney stones, gout, Uterine cancer (no surgery, radiation only) History of Any Multi-Drug Resistant Organisms: Other MDRO Past Surgical History: No Surgical Hx Reported Additional Past Surgical History / Comment(s): BILATERAL ARTHROSCOPY KNEES. D & C (MISCARRIAGES). Past Anesthesia/Blood Transfusion Reactions: No Reported Reaction Past Psychological History: Anxiety Smoking Status: Never smoker Past Alcohol Use History: None Reported Past Drug Use History: None Reported - Past Family History Mother Family Medical History: Congestive Heart Failure (CHF), Diabetes Mellitus Father Family Medical History: Congestive Heart Failure (CHF), Dialysis, Hypertension Medications and Allergies Home Medications Medication Instructions Recorded Confirmed Type Montelukast [Singulair] 10 mg PO DAILY 01/09/17 05/13/23 History allopurinoL [Zyloprim] 100 mg PO BID 01/21/22 05/13/23 History Atorvastatin [Lipitor] 10 mg PO DAILY 02/15/22 05/13/23 History Ondansetron [Zofran] 4 mg PO Q12HR PRN 02/15/22 05/13/23 History Hydroxychloroquine Sulfate 200 mg PO BID 04/13/22 05/13/23 History [Plaquenil] hydrOXYzine HCL [Atarax] 25 mg PO QID 04/13/22 05/13/23 History FLUoxetine HCL [PROzac] 20 mg PO BID 10/27/22 05/13/23 History Pantoprazole [Protonix] 40 mg PO BID 10/27/22 05/13/23 History Insulin Detemir (Levemir) [Levemir] 25 unit SQ HS 11/06/22 05/13/23 History Empagliflozin [Jardiance] 10 mg PO DAILY 11/21/22 05/13/23 History Apixaban [Eliquis] 2.5 mg PO BID #60 tab 12/02/22 05/13/23 Rx Loperamide [Imodium] 2 mg PO BID #30 capsule 12/17/22 05/13/23 Rx Anastrozole 1 mg PO DAILY 05/13/23 05/13/23 History Aspirin EC [Ecotrin Low Dose] 81 mg PO DAILY 05/13/23 05/13/23 History Furosemide [Lasix] 80 mg PO DAILY 05/13/23 05/13/23 History Gabapentin 600 mg PO BID 05/13/23 05/13/23 History Ibuprofen [Motrin] 600 mg PO BID 05/13/23 05/13/23 History Insulin Regular, Human [NovoLIN R] 25 unit SQ DAILY 05/13/23 05/13/23 History Insulin Regular, Human [NovoLIN R] See Protocol SQ AC-BID@1200,1800 05/13/23 0 05/13/23 History Metoprolol Tartrate [Lopressor] 50 mg PO BID 05/13/23 05/13/23 History gemfibroziL [Lopid] 600 mg PO BID 05/13/23 05/13/23 History Allergies Allergy/AdvReac Type Severity Reaction Status Date / Time ciprofloxacin [From Cipro] Allergy Swelling Verified 05/13/23 18:12 diphenhydramine Allergy Swelling Verified 05/13/23 18:12 [From Benadryl] Influenza Virus Vaccines Allergy Unknown Verified 05/13/23 18:12 iodine Allergy Swelling Verified 05/13/23 18:12 propoxyphene Allergy Swelling Verified 05/13/23 18:12 [From Darvocet-N] red dye Allergy Swelling Verified 05/13/23 18:12 sulfacetamide Allergy Swelling Verified 05/13/23 18:12 [From Sulfamide] yellow dye Allergy Swelling Verified 05/13/23 18:12 Surgical - Exam Vital Signs Temp Pulse Resp BP Pulse Ox 98.3 F 100 20 167/89 99 05/13/23 15:22 05/13/23 15:22 05/13/23 15:22 05/13/23 15:22 05/13/23 15:22 Results - Labs 05/14/23 09:22 05/14/23 09:22 Abnormal Lab Results - Last 24 Hours (Table) 05/13/23 05/13/23 05/13/23 Range/Units 17:58 17:58 18:07 WBC 13.1 H (3.8-10.6) k/uL Neutrophils # 9.4 H (1.3-7.7) k/uL Potassium 5.2 H (3.5-5.1) mmol/L Chloride 111 H (98-107) mmol/L Carbon Dioxide 18 L (22-30) mmol/L BUN 21 H (7-17) mg/dL Creatinine 1.10 H (0.52-1.04) mg/dL Glucose 220 H (74-99) mg/dL POC Glucose (mg/dL) (70-110) mg/dL Alkaline Phosphatase 168 H (38-126) U/L Urine Appearance Cloudy H (Clear) Urine Protein 2+ H (Negative) Urine Glucose (UA) 1+ H (Negative) Urine Blood Moderate H (Negative) Urine Nitrite Positive H (Negative) Ur Leukocyte Esterase Large H (Negative) Urine RBC 35 H (0-5) /hpf Urine WBC >182 H (0-5) /hpf Urine WBC Clumps Few H (None) /hpf Urine Bacteria Many H (None) /hpf 05/14/23 Range/Units 06:41 WBC (3.8-10.6) k/uL Neutrophils # (1.3-7.7) k/uL Potassium (3.5-5.1) mmol/L Chloride (98-107) mmol/L Carbon Dioxide (22-30) mmol/L BUN (7-17) mg/dL Creatinine (0.52-1.04) mg/dL Glucose (74-99) mg/dL POC Glucose (mg/dL) 142 H (70-110) mg/dL Alkaline Phosphatase (38-126) U/L Urine Appearance (Clear) Urine Protein (Negative) Urine Glucose (UA) (Negative) Urine Blood (Negative) Urine Nitrite (Negative) Ur Leukocyte Esterase (Negative) Urine RBC (0-5) /hpf Urine WBC (0-5) /hpf Urine WBC Clumps (None) /hpf Urine Bacteria (None) /hpf Diabetes panel 05/13/23 Range/Units 17:58 Sodium 140 (137-145) mmol/L Potassium 5.2 H (3.5-5.1) mmol/L Chloride 111 H (98-107) mmol/L Carbon Dioxide 18 L (22-30) mmol/L BUN 21 H (7-17) mg/dL Creatinine 1.10 H (0.52-1.04) mg/dL Glucose 220 H (74-99) mg/dL Calcium 9.4 (8.4-10.2) mg/dL AST 18 (14-36) U/L ALT 18 (4-34) U/L Alkaline Phosphatase 168 H (38-126) U/L Total Protein 7.0 (6.3-8.2) g/dL Albumin 3.9 (3.5-5.0) g/dL Calcium panel 05/13/23 Range/Units 17:58 Calcium 9.4 (8.4-10.2) mg/dL Albumin 3.9 (3.5-5.0) g/dL Pituitary panel 05/13/23 Range/Units 17:58 Sodium 140 (137-145) mmol/L Potassium 5.2 H (3.5-5.1) mmol/L Chloride 111 H (98-107) mmol/L Carbon Dioxide 18 L (22-30) mmol/L BUN 21 H (7-17) mg/dL Creatinine 1.10 H (0.52-1.04) mg/dL Glucose 220 H (74-99) mg/dL Calcium 9.4 (8.4-10.2) mg/dL Adrenal panel 05/13/23 Range/Units 17:58 Sodium 140 (137-145) mmol/L Potassium 5.2 H (3.5-5.1) mmol/L Chloride 111 H (98-107) mmol/L Carbon Dioxide 18 L (22-30) mmol/L BUN 21 H (7-17) mg/dL Creatinine 1.10 H (0.52-1.04) mg/dL Glucose 220 H (74-99) mg/dL Calcium 9.4 (8.4-10.2) mg/dL Total Bilirubin 0.5 (0.2-1.3) mg/dL AST 18 (14-36) U/L ALT 18 (4-34) U/L Alkaline Phosphatase 168 H (38-126) U/L Total Protein 7.0 (6.3-8.2) g/dL Albumin 3.9 (3.5-5.0) g/dL
--- NOTE | 2023-05-14 12:10 | P.CONS ---
History of Present Illness - Reason for Consult Consult date: 05/14/23 - Chief Complaint Abdominal pain - History of Present Illness * 57-year-old lady with past medical history significant for diabetes mellitus type 2, chronic kidney disease stage III, history of COPD, chronic hypoxic respiratory failure on 4 L of oxygen, history of pulm embolism October 2022, previous history of DVT with s/p IVC filter placement in November 2022, history of lupus, anxiety, morbid obesity, history of vaginal bleeding, history of gallstones presents to the emergency department with complaints of abdominal pain. Patient was scheduled to follow-up with general surgery secondary to is sues with a gallstone however her pain got worsened and decided to come to the emergency department to seek further attention. * Workup initiated in ER included CBC showed WBC count of 13.1 hemoglobin 11 platelet count of 382, serum chemistry showed sodium 140 potassium 5.2 chloride of 111, dioxide 18 BUN 21 creatinine 1.1, glucose of 220, urinalysis was obtained which showed trace amount of leukocyte Estrace, many bacteria, WBC clumps were noted as well. * While in ER patient was started on IV antibiotics, IV fluid were ordered and admitted under general surgery service with consultation from medicine for medical management * General surgery planning cholecystectomy, patient remains moderate risk secondary to multiple comorbidities however risk outweighs the benefit at this point REVIEW OF SYSTEMS: Abdominal pain CONSTITUTIONAL: No fever, no malaise, no fatigue. HEENT: No recent visual problems or hearing problems. Denied any sore throat. CARDIOVASCULAR: No chest pain, orthopnea, PND, no palpitations, no syncope. PULMONARY: No shortness of breath, no cough, no hemoptysis. GASTROINTESTINAL:Abdominal pain NEUROLOGICAL: No headaches, no weakness, no numbness. HEMATOLOGICAL: Denies any bleeding or petechiae. GENITOURINARY: Denies any burning micturition, frequency, or urgency. MUSCULOSKELETAL/RHEUMATOLOGICAL: Denies any joint pain, swelling, or any muscle pain. ENDOCRINE: Denies any polyuria or polydipsia. PHYSICAL EXAMINATION: GENERAL: The patient is alert and oriented x3, nasal cannula in place HEENT: Pupils are round and equally reacting to light. EOMI. CARDIOVASCULAR: S1 and S2 present. No murmurs, rubs, or gallops. PULMONARY: Chest is clear to auscultation, no wheezing or crackles. ABDOMEN: Soft, no guarding or rigidity, right upper quadrant tenderness MUSCULOSKELETAL: No joint swelling or deformity. EXTREMITIES: No cyanosis, clubbing, or pedal edema. NEUROLOGICAL: Gross neurological examination did not reveal any focal deficits. SKIN: No rashes. Past Medical History Past Medical History: Cancer, COPD, Diabetes Mellitus, Deep Vein Thrombosis (DVT), Hypertension, Renal Disease, Rheumatoid Arthritis (RA), Thyroid Disorder Additional Past Medical History / Comment(s): O2 @ 4L. SLE LUPUS. STAGE 3 KIDNEY DISEASE. Leukemia, GRAVES DZ , kidney stones, gout, Uterine cancer (no surgery, radiation only) History of Any Multi-Drug Resistant Organisms: Other MDRO Past Surgical History: No Surgical Hx Reported Additional Past Surgical History / Comment(s): BILATERAL ARTHROSCOPY KNEES. D & C (MISCARRIAGES). Past Anesthesia/Blood Transfusion Reactions: No Reported Reaction Past Psychological History: Anxiety Smoking Status: Never smoker Past Alcohol Use History: None Reported Past Drug Use History: None Reported - Past Family History Mother Family Medical History: Congestive Heart Failure (CHF), Diabetes Mellitus Father Family Medical History: Congestive Heart Failure (CHF), Dialysis, Hypertension Medications and Allergies Home Medications Medication Instructions Recorded Confirmed Type Montelukast [Singulair] 10 mg PO DAILY 01/09/17 05/13/23 History allopurinoL [Zyloprim] 100 mg PO BID 01/21/22 05/13/23 History Atorvastatin [Lipitor] 10 mg PO DAILY 02/15/22 05/13/23 History Ondansetron [Zofran] 4 mg PO Q12HR PRN 02/15/22 05/13/23 History Hydroxychloroquine Sulfate 200 mg PO BID 04/13/22 05/13/23 History [Plaquenil] hydrOXYzine HCL [Atarax] 25 mg PO QID 04/13/22 05/13/23 History FLUoxetine HCL [PROzac] 20 mg PO BID 10/27/22 05/13/23 History Pantoprazole [Protonix] 40 mg PO BID 10/27/22 05/13/23 History Insulin Detemir (Levemir) [Levemir] 25 unit SQ HS 11/06/22 05/13/23 History Empagliflozin [Jardiance] 10 mg PO DAILY 11/21/22 05/13/23 History Apixaban [Eliquis] 2.5 mg PO BID #60 tab 12/02/22 05/13/23 Rx Loperamide [Imodium] 2 mg PO BID #30 capsule 12/17/22 05/13/23 Rx Anastrozole 1 mg PO DAILY 05/13/23 05/13/23 History Aspirin EC [Ecotrin Low Dose] 81 mg PO DAILY 05/13/23 05/13/23 History Furosemide [Lasix] 80 mg PO DAILY 05/13/23 05/13/23 History Gabapentin 600 mg PO BID 05/13/23 05/13/23 History Ibuprofen [Motrin] 600 mg PO BID 05/13/23 05/13/23 History Insulin Regular, Human [NovoLIN R] 25 unit SQ DAILY 05/13/23 05/13/23 History Insulin Regular, Human [NovoLIN R] See Protocol SQ AC-BID@1200,1800 05/13/23 05/13/23 History Metoprolol Tartrate [Lopressor] 50 mg PO BID 05/13/23 05/13/23 History gemfibroziL [Lopid] 600 mg PO BID 05/13/23 05/13/23 History Allergies Allergy/AdvReac Type Severity Reaction Status Date / Time ciprofloxacin [From Cipro] Allergy Swelling Verified 05/13/23 18:12 diphenhydramine Allergy Swelling Verified 05/13/23 18:12 [From Benadryl] Influenza Virus Vaccines Allergy Unknown Verified 05/13/23 18:12 iodine Allergy Swelling Verified 05/13/23 18:12 propoxyphene Allergy Swelling Verified 05/13/23 18:12 [From Darvocet-N] red dye Allergy Swelling Verified 05/13/23 18:12 sulfacetamide Allergy Swelling Verified 05/13/23 18:12 [From Sulfamide] yellow dye Allergy Swelling Verified 05/13/23 18:12 Physical Exam Vitals: Vital Signs Temp Pulse Pulse Resp BP BP Pulse Ox 05/14/23 07:35 98.8 F 88 18 148/80 97 05/14/23 02:34 98.2 F 117 H 18 136/84 100 05/13/23 20:25 98.5 F 105 H 18 125/70 99 05/13/23 18:43 99.2 F 05/13/23 18:01 85 17 164/93 100 05/13/23 17:35 98.2 F 88 18 161/94 100 05/13/23 15:22 98.3 F 100 20 167/89 99 Intake and Output 05/13/23 05/14/23 05/14/23 22:59 06:59 14:59 Intake Total 600 Output Total 150 Balance 450 Intake: Intake, IV Titration 600 Amount Sodium Chloride 0.9% 1, 600 000 ml @ 75 mls/hr IV . [id number] [facility] Rx#:[id number] Output: Urine 150 Other: Voiding Method External Catheter Weight 124.738 kg Results CBC & Chem 7: 05/14/23 09:22 05/14/23 09:22 Labs: Abnormal Lab Results - Last 24 Hours (Table) 05/13/23 05/13/23 05/13/23 Range/Units 17:58 17:58 18:07 WBC 13.1 H (3.8-10.6) k/uL Neutrophils # 9.4 H (1.3-7.7) k/uL Potassium 5.2 H (3.5-5.1) mmol/L Chloride 111 H (98-107) mmol/L Carbon Dioxide 18 L (22-30) mmol/L BUN 21 H (7-17) mg/dL Creatinine 1.10 H (0.52-1.04) mg/dL Glucose 220 H (74-99) mg/dL POC Glucose (mg/dL) (70-110) mg/dL Alkaline Phosphatase 168 H (38-126) U/L Urine Appearance Cloudy H (Clear) Urine Protein 2+ H (Negative) Urine Glucose (UA) 1+ H (Negative) Urine Blood Moderate H (Negative) Urine Nitrite Positive H (Negative) Ur Leukocyte Esterase Large H (Negative) Urine RBC 35 H (0-5) /hpf Urine WBC >182 H (0-5) /hpf Urine WBC Clumps Few H (None) /hpf Urine Bacteria Many H (None) /hpf 05/14/23 Range/Units 06:41 WBC (3.8-10.6) k/uL Neutrophils # (1.3-7.7) k/uL Potassium (3.5-5.1) mmol/L Chloride (98-107) mmol/L Carbon Dioxide (22-30) mmol/L BUN (7-17) mg/dL Creatinine (0.52-1.04) mg/dL Glucose (74-99) mg/dL POC Glucose (mg/dL) 142 H (70-110) mg/dL Alkaline Phosphatase (38-126) U/L Urine Appearance (Clear) Urine Protein (Negative) Urine Glucose (UA) (Negative) Urine Blood (Negative) Urine Nitrite (Negative) Ur Leukocyte Esterase (Negative) Urine RBC (0-5) /hpf Urine WBC (0-5) /hpf Urine WBC Clumps (None) /hpf Urine Bacteria (None) /hpf Assessment and Plan Assessment: Assessment and plan * Symptomatic cholelithiasis requiring cholecystectomy * Mild hyperkalemia, hypomagnesemia * Urinary tract infection * History of pulmonary embolism * S/p IVC filter in place * Chronic hypoxic respiratory failure on 4 L of oxygen * History of COPD not in exacerbation * Disease mellitus type II * In regards to diabetes mellitus, Accu-Cheks every 4 hours while NPO, continue correctional insulin, patient started on Lantus however monitor for hypoglycemia * In regards to COPD, encourage use incentive spirometer, as needed breathing treatment continue oxygen supplementation * In regards to urinary tract infection urine cultures ordered continue IV Zosyn * In regards to history of pulm embolism patient is on Eliquis which is placed on hold in anticipation of surgery * In case of respiratory distress, recommend pulmonary medicine consultation as well due to underlying pulmonary comorbidity * In regards to hyperkalemia patient given insulin and dextrose * CODE STATUS is full code Time with Patient: Greater than 30
[2023-05-14] MEDS: MAGNESIUM SULFATE-D5W PMX 1 GM in DEXTROSE/WATER 1 100ML.BAG IVPB SCH ×2 (12:35→13:35)
[2023-05-14 13:16] LABS: Glucose,Whole Blood 132 mg/dL (70-110)
[2023-05-14] MEDS ORDERED: IV FLUID CONTINUATION 1,000 ML IV ONE (14:31)
[2023-05-14] MEDS ORDERED: HEPARIN SODIUM,PORCINE 5,000 UNIT/ML 1 ML VIAL SQ ONE (14:39)
[2023-05-14 14:43] LABS: Glucose,Whole Blood 118 mg/dL (70-110)
[2023-05-14] MEDS ORDERED: BUPIVACAINE (PF) 0.25% 30 ML VIAL SQ ONE ×2 (15:53→16:35)
[2023-05-14] MEDS ORDERED: LIDOCAINE 1% INJ 10MG/ML (20 ML MDV) ONE (16:02)
[2023-05-14] MEDS ORDERED: ROCURONIUM 10 MG/ML (5 ML VIAL) IV ONE (16:02)
[2023-05-14] MEDS ORDERED: NEOSTIGMINE 1 MG/ML 10 ML VIAL ONE (16:02)
[2023-05-14] MEDS ORDERED: PHENYLEPHRINE-0.9% NACL SYG 1,000 MCG/10 ML SYRINGE ONE (16:02)
[2023-05-14] MEDS ORDERED: PROPOFOL 10 MG/ML 20 ML VIAL IV ONE (16:02)
[2023-05-14] MEDS ORDERED: KETAMINE HCL IN 0.9 % NACL 50 MG/5 ML SYRINGE ONE (16:02)
[2023-05-14] MEDS ORDERED: fentaNYL (PF) 50 MCG/ML 2 ML AMP ONE (16:02)
[2023-05-14] MEDS ORDERED: GLYCOPYRROLATE 0.2 MG/ML 2 ML VIAL ONE (16:02)
[2023-05-14] MEDS ORDERED: MIDAZOLAM 2 MG/2 ML VIAL ONE (16:02)
[2023-05-14] MEDS ORDERED: SUCCINYLCHOLINE CHLORIDE 200 MG/10 ML VIAL IV ONE (16:02)
[2023-05-14] MEDS ORDERED: LACTATED RINGERS 500 ML IV ONE (16:39)
--- NOTE | 2023-05-14 17:14 | P.OP ---
Date of Procedure: 05/14/23 Preoperative Diagnosis: Cholecystitis Postoperative Diagnosis: Cholecystitis Procedure(s) Performed: Laparoscopic cholecystectomy Anesthesia: NU Surgeon: Anjel Chairez Estimated Blood Loss (ml): 5 Pathology: other (Gallbladder) Condition: stable Disposition: PACU Description of Procedure: The patient's placed on the operative table in the supine position. The patient received general endotracheal anesthesia. His abdomen was prepped with sterile fashion. An infraumbilical skin incision was made. The Veress needles positioned into the peritoneal cavity. Position of the Veress needle was confirmed with a positive drop test. The abdomen was then insufflated. After adequate insufflation a 5 mm trochars placed. Cavity. Next the laparoscope placed. Cavity. A 8 mm robotic trocar was placed in the left mid abdomen. A a 8 mm robotic trochars placed in the right lateral position and then the right mid abdomen position. The patient was then placed in reverse Trendelenburg. Patient with was docked to the robot. There were adhesions to the dome of the gallbladder. These were lysed using the hook cautery. The gallbladder fundus was then grasped with a pro-grasp grasper. And then the gallbladder was retracted cephalad. There were adhesions along the body of the gallbladder. These were lysed with sharp dissection. The fundus of the gallbladder was then grasped in the lateral traction was placed in the fundus. And then using blunt and sharp dissection the cystic duct was identified. Using firing applied the cystic duct was identified. A critical view of safety was achieved. The cystic duct was seen entering the common bile duct the common hep atic duct was seen. The cystic duct had been completely dissected and then the cystic duct was clipped and divided. The cystic artery was then identified and then clipped and divided. The gallbladder was then removed from liver bed using left cautery. The gallbladder was placed in a 5 mm Endo Catch bag. The liver bed was hemostasis. There is no bleeding seen. The abdomen was irrigated. No bleeding was seen. The patient was then undocked from the robot. The gallbladder was extracted through the umbilical port site. The umbilical port site was then closed with 0 Ethibond suture. The trochars withdrawn. Skin was closed interrupted 3-0 Monocryl suture. Dermabond dressing applied. Patient top she will was sent to recovery room in stable condition.
[2023-05-14 20:36] LABS: Glucose,Whole Blood 127 mg/dL (70-110)
[2023-05-14] MEDS: METOPROLOL TARTRATE 50 MG TAB PO SCH (20:45)
[2023-05-14] MEDS ORDERED: INSULIN DETEMIR (LEVEMIR) 100 UNIT/ML SYR SQ SCH (21:00)
[2023-05-14] MEDS: MORPHINE SULFATE 4 MG/ML SYRINGE IVP PRN (22:46)
[2023-05-15] MEDS: PIPERACILLIN-TAZOBACTAM 3.375 GM in SODIUM CHLORIDE 0.9% 100 ML IVPB SCH ×3 (00:13→17:11)
[2023-05-15 01:35] LABS: Glucose,Whole Blood 152 mg/dL (70-110)
[2023-05-15] MEDS: INSULIN ASPART (NovoLOG) 100 UNIT/ML VIAL SQ SCH ×5 (01:36→20:20)
[2023-05-15] MEDS: MORPHINE SULFATE 4 MG/ML SYRINGE IVP PRN (03:11)
[2023-05-15 05:56] LABS: Glucose,Whole Blood 134 mg/dL (70-110)
[2023-05-15 07:06] LABS: Basophils % (A) 0 %; Eosinophils # (A) 0.3 k/uL (0-0.7); Eosinophils % (A) 3 %; HCT 32.9 % (34.0-46.0); HGB 10.8 gm/dL (11.4-16.0); Hypochromasia Slight; Lymphocytes # (A) 2.3 k/uL (1.0-4.8); Lymphocytes % (A) 22 %; MCH 29.1 pg (25.0-35.0); MCHC 32.8 g/dL (31.0-37.0); MCV 88.8 fL (80.0-100.0); Mean Platelet Volume 7.2; Monocytes # (A) 0.5 k/uL (0-1.0); Monocytes % (A) 5 %; Neutrophils # (A) 6.9 k/uL (1.3-7.7); Neutrophils % (A) 68 %; Platelet Count 351 k/uL (150-450); RBC 3.71 m/uL (3.80-5.40); RDW 14.4 % (11.5-15.5); WBC 10.1 k/uL (3.8-10.6)
[2023-05-15 07:51] LABS: ALT 21 U/L (4-34); AST 27 U/L (14-36); African American GFR (CKD) 46 (>60 ml/min/1.73 sqM); Albumin 3.3 g/dL (3.5-5.0); Alkaline Phosphatase 145 U/L (38-126); Anion Gap 7 mmol/L; Blood Urea Nitrogen 21 mg/dL (7-17); Calcium 8.9 mg/dL (8.4-10.2); Carbon Dioxide 20 mmol/L (22-30); Chloride 115 mmol/L (98-107); Glucose 129 mg/dL (74-99); Magnesium 1.8 mg/dL (1.6-2.3); Non-African American GFR(CKD) 40 (>60 ml/min/1.73 sqM); Potassium 5.1 mmol/L (3.5-5.1); Sodium 142 mmol/L (137-145); Total Bilirubin 0.7 mg/dL (0.2-1.3); Total Protein 6.3 g/dL (6.3-8.2)
[2023-05-15] MEDS: PANTOPRAZOLE 40 MG/10 ML VIAL IV SCH (08:59)
[2023-05-15] MEDS: HYDROcodone/APAP 5-325MG 1 EACH TAB PO PRN ×4 (09:00→21:25)
[2023-05-15] MEDS: GABAPENTIN 300 MG CAP PO SCH ×2 (09:01→20:20)
[2023-05-15] MEDS: MONTELUKAST 10 MG TAB PO SCH (09:01)
[2023-05-15] MEDS: METOPROLOL TARTRATE 50 MG TAB PO SCH ×2 (09:02→20:20)
[2023-05-15] MEDS: FLUoxetine HCL 20 MG CAP PO SCH ×2 (09:02→20:20)
[2023-05-15] MEDS: allopurinoL 100 MG TAB PO SCH ×2 (09:02→20:19)
[2023-05-15] MEDS: INSULIN REGULAR 100 UNIT/ML VIAL (IV) SQ SCH (09:11)
[2023-05-15] MEDS: hydrOXYzine HCL 25 MG TAB PO SCH ×4 (09:19→21:26)
[2023-05-15 11:56] LABS: Glucose,Whole Blood 321 mg/dL (70-110)
--- NOTE | 2023-05-15 12:56 | P.PN ---
Subjective Progress Note Date: 05/15/23 * 57-year-old lady with past medical history significant for diabetes mellitus type 2, chronic kidney disease stage III, history of COPD, chronic hypoxic respiratory failure on 4 L of oxygen, history of pulm embolism October 2022, previous history of DVT with s/p IVC filter placement in November 2022, history of lupus, anxiety, morbid obesity, history of vaginal bleeding, history of gallstones presents to the emergency department with complaints of abdominal pain. Patient was scheduled to follow-up with general surgery secondary to issues with a gallstone however her pain got worsened and decided to come to the emergency department to seek further attention. * Workup initiated in ER included CBC showed WBC count of 13.1 hemoglobin 11 platelet count of 382, serum chemistry showed sodium 140 potassium 5.2 chloride of 111, dioxide 18 BUN 21 creatinine 1.1, glucose of 220, urinalysis was obtained which showed trace amount of leukocyte Estrace, many bacteria, WBC clumps were noted as well. * While in ER patient was started on IV antibiotics, IV fluid were ordered and admitted under general surgery service with consultation from medicine for medical management * General surgery planning cholecystectomy, patient remains moderate risk secondary to multiple comorbidities however risk outweighs the benefit at this point * 05/15/2023: Patient seen and evaluated bedside patient is postoperative day 1 status postcholecystectomy. Serum chemistry and CBC reviewed hemoglobin 10.8, remains stable. Patient followed up by surgery continue on IV antibiotics. Urine culture positive for gram-negative bacilli patient receiving Zosyn. Multiple antibiotic allergies noted REVIEW OF SYSTEMS: Abdominal pain resolved CONSTITUTIONAL: No fever, no malaise, no fatigue. HEENT: No recent visual problems or hearing problems. Denied any sore throat. CARDIOVASCULAR: No chest pain, orthopnea, PND, no palpitations, no syncope. PULMONARY: No shortness of breath, no cough, no hemoptysis. GASTROINTESTINAL:Abdominal pain resolved NEUROLOGICAL: No headaches, no weakness, no numbness. HEMATOLOGICAL: Denies any bleeding or petechiae. GENITOURINARY: Denies any burning micturition, frequency, or urgency. MUSCULOSKELETAL/RHEUMATOLOGICAL: Denies any joint pain, swelling, or any muscle pain. ENDOCRINE: Denies any polyuria or polydipsia. PHYSICAL EXAMINATION: GENERAL: The patient is alert and oriented x3, nasal cannula in place HEENT: Pupils are round and equally reacting to light. EOMI. CARDIOVASCULAR: S1 and S2 present. No murmurs, rubs, or gallops. PULMONARY: Chest is clear to auscultation, no wheezing or crackles. ABDOMEN: Soft, no guarding or rigidity, s/p surgery abdominal incision intact laparoscopic cholecystectomy MUSCULOSKELETAL: No joint swelling or deformity. EXTREMITIES: No cyanosis, clubbing, or pedal edema. NEUROLOGICAL: Gross neurological examination did not reveal any focal deficits. SKIN: No rashes. Objective - Vital Signs Vital signs: Vital Signs Temp 98.3 F 05/15/23 06:45 Pulse 108 H 05/15/23 06:45 Resp 18 05/15/23 06:45 BP 119/74 05/15/23 06:45 Pulse Ox 100 05/15/23 06:45 FiO2 Intake & Output 05/14/23 05/15/23 05/15/23 18:59 06:59 18:59 Intake Total 1850 350 200 Output Total 355 600 Balance 1495 350 -400 Intake: IV 1150 Intake, IV Titration 700 Amount Calcium Gluconate in NaCl 100 1 gm In Saline 1 100ml. bag @ 400 mls/hr IVPB ONCE ONE Rx#:[id number] Magnesium Sulfate-D5w Pmx 100 1 gm In Dextrose/Water 1 100ml.bag @ 100 mls/hr IVPB Q1H [facility] Rx#: [id number] Piperacillin-Tazobactam 3 100 .375 gm In Sodium Chloride 0.9% 100 ml @ 25 mls/hr IVPB Q8HR [facility] Rx# :[id number] Sodium Chloride 0.9% 1, 400 000 ml @ 75 mls/hr IV . [id number] [facility] Rx#:[id number] Oral 350 200 Output: Urine 350 600 Estimated Blood Loss 5 Other: # Voids 3 # Bowel Movements 2 - Labs CBC & Chem 7: 05/15/23 06:09 05/15/23 06:09 Labs: Abnormal Lab Results - Last 24 Hours (Table) 05/14/23 05/14/23 05/14/23 Range/Units 13:14 14:41 20:35 RBC (3.80-5.40) m/uL Hgb (11.4-16.0) gm/dL Hct (34.0-46.0) % Chloride (98-107) mmol/L Carbon Dioxide (22-30) mmol/L BUN (7-17) mg/dL Creatinine (0.52-1.04) mg/dL Glucose (74-99) mg/dL POC Glucose (mg/dL) 132 H 118 H 127 H (70-110) mg/dL Alkaline Phosphatase (38-126) U/L Albumin (3.5-5.0) g/dL 05/15/23 05/15/23 05/15/23 Range/Units 01:34 05:54 06:09 RBC 3.71 L (3.80-5.40) m/uL Hgb 10.8 L (11.4-16.0) gm/dL Hct 32.9 L (34.0-46.0) % Chloride (98-107) mmol/L Carbon Dioxide (22-30) mmol/L BUN (7-17) mg/dL Creatinine (0.52-1.04) mg/dL Glucose (74-99) mg/dL POC Glucose (mg/dL) 152 H 134 H (70-110) mg/dL Alkaline Phosphatase (38-126) U/L Albumin (3.5-5.0) g/dL 05/15/23 05/15/23 Range/Units 06:09 11:55 RBC (3.80-5.40) m/uL Hgb (11.4-16.0) gm/dL Hct (34.0-46.0) % Chloride 115 H (98-107) mmol/L Carbon Dioxide 20 L (22-30) mmol/L BUN 21 H (7-17) mg/dL Creatinine 1.47 H (0.52-1.04) mg/dL Glucose 129 H (74-99) mg/dL POC Glucose (mg/dL) 321 H (70-110) mg/dL Alkaline Phosphatase 145 H (38-126) U/L Albumin 3.3 L (3.5-5.0) g/dL Microbiology - Last 24 Hours (Table) 05/14/23 10:00 Urine Culture - Preliminary Urine,Voided Gram Neg Bacilli Assessment and Plan Assessment: Assessment and plan * Symptomatic cholelithiasis s/p cholecystectomy postoperative day 1 * Mild hyperkalemia, hypomagnesemia * Urinary tract infection * History of pulmonary embolism * S/p IVC filter in place * Chronic hypoxic respiratory failure on 4 L of oxygen * History of COPD not in exacerbation * Disease mellitus type II * In regards to diabetes mellitus, Accu-Cheks, continue patient on Lantus, dose increased, continue correctional insulin oral hypoglycemic agents resumed including Jardiance * In regards to COPD, encourage use incentive spirometer, as needed breathing treatment continue oxygen supplementation * In regards to urinary tract infection urine cultures ordered continue IV Zosyn day 2, gram-negative bacilli noted * In regards to history of pulm embolism patient is on Eliquis , will be resumed from 05/16/2023 after clearance from general surgery * In regards to hyperkalemia patient given insulin and dextrose, follow-up potassium levels improved * CODE STATUS is full code
[2023-05-15] MEDS: DAPAGLIFLOZIN PROPANEDIOL 5 MG TABLET PO SCH (14:59)
--- NOTE | 2023-05-15 15:27 | P.PN ---
Subjective Progress Note Date: 05/15/23 CHIEF COMPLAINT: Cholecystitis HISTORY OF PRESENT ILLNESS: Postop day #1 status post laparoscopic cholecy stectomy. Patient complains of nausea this morning. She did reports her pain is controlled. She is having flatus. She had an episode of diarrhea last night. Afebrile. Mildly tachycardic. WBC 10.1 HGB 10.8 plt 351 Na 142 potassium 5.1 creatinine 1.47 PHYSICAL EXAM: VITAL SIGNS: Reviewed. GENERAL: Well-developed in no acute distress. ABDOMEN: Soft. Nondistended. Incision sites clean dry and intact. Mild tenderness at incision sites NEUROLOGIC: Alert and oriented. Cranial nerves II through XII grossly intact. ASSESSMENT: 1. cholecystitis status post laparoscopic cholecystectomy PLAN: -Continue pain management -Continue supportive care -Encourage patient ambulate -Encourage patient to use incentive spirometer -Okay to resume Eliquis tomorrow -Continue regular diet Physician Food Writer note has been reviewed by physician. Signing provider agrees with the documented findings, assessment, and plan of care. Objective - Vital Signs Vital signs: Vital Signs Temp 98.3 F 05/15/23 06:45 Pulse 108 H 05/15/23 06:45 Resp 18 05/15/23 06:45 BP 119/74 05/15/23 06:45 Pulse Ox 100 05/15/23 06:45 FiO2 Intake & Output 05/14/23 05/15/23 05/15/23 18:59 06:59 18:59 Intake Total 1850 350 200 Output Total 355 600 Balance 1495 350 -400 Intake: IV 1150 Intake, IV Titration 700 Amount Calcium Gluconate in NaCl 100 1 gm In Saline 1 100ml. bag @ 400 mls/hr IVPB ONCE ONE Rx#:[id number] Magnesium Sulfate-D5w Pmx 100 1 gm In Dextrose/Water 1 100ml.bag @ 100 mls/hr IVPB Q1H [facility] Rx#: [id number] Piperacillin-Tazobactam 3 100 .375 gm In Sodium Chloride 0.9% 100 ml @ 25 mls/hr IVPB Q8HR [facility] Rx# :[id number] Sodium Chloride 0.9% 1, 400 000 ml @ 75 mls/hr IV . [id number] [facility] Rx#:[id number] Oral 350 200 Output: Urine 350 600 Estimated Blood Loss 5 Other: # Voids 3 2 # Bowel Movements 2 - Labs CBC & Chem 7: 05/15/23 06:09 05/15/23 06:09 Labs: Abnormal Lab Results - Last 24 Hours (Table) 05/14/23 05/15/23 05/15/23 Range/Units 20:35 01:34 05:54 RBC (3.80-5.40) m/uL Hgb (11.4-16.0) gm/dL Hct (34.0-46.0) % Chloride (98-107) mmol/L Carbon Dioxide (22-30) mmol/L BUN (7-17) mg/dL Creatinine (0.52-1.04) mg/dL Glucose (74-99) mg/dL POC Glucose (mg/dL) 127 H 152 H 134 H (70-110) mg/dL Alkaline Phosphatase (38-126) U/L Albumin (3.5-5.0) g/dL 05/15/23 05/15/23 05/15/23 Range/Units 06:09 06:09 11:55 RBC 3.71 L (3.80-5.40) m/uL Hgb 10.8 L (11.4-16.0) gm/dL Hct 32.9 L (34.0-46.0) % Chloride 115 H (98-107) mmol/L Carbon Dioxide 20 L (22-30) mmol/L BUN 21 H (7-17) mg/dL Creatinine 1.47 H (0.52-1.04) mg/dL Glucose 129 H (74-99) mg/dL POC Glucose (mg/dL) 321 H (70-110) mg/dL Alkaline Phosphatase 145 H (38-126) U/L Albumin 3.3 L (3.5-5.0) g/dL Microbiology - Last 24 Hours (Table) 05/14/23 10:00 Urine Culture - Preliminary Urine,Voided Gram Neg Bacilli
[2023-05-15] MEDS: SODIUM CHLORIDE 0.9% 1,000 ML IV SCH ×2 (16:15→21:44)
[2023-05-15 16:54] LABS: Glucose,Whole Blood 179 mg/dL (70-110)
[2023-05-15 19:49] LABS: Glucose,Whole Blood 477 mg/dL (70-110)
[2023-05-15] MEDS: HYDROXYCHLOROQUINE SULFATE 200 MG TAB PO SCH (20:21)
[2023-05-15] MEDS ORDERED: INSULIN DETEMIR (LEVEMIR) 100 UNIT/ML SYR SQ SCH (21:00)
[2023-05-15] MEDS ORDERED: ZINC OXIDE PASTE (Z-GUARD) 1 APPLIC TOPICAL PRN (22:06)
[2023-05-16] MEDS: PIPERACILLIN-TAZOBACTAM 3.375 GM in SODIUM CHLORIDE 0.9% 100 ML IVPB SCH ×2 (00:28→08:40)
[2023-05-16] MEDS: HYDROcodone/APAP 5-325MG 1 EACH TAB PO PRN ×2 (02:42→09:33)
[2023-05-16 05:37] LABS: Glucose,Whole Blood 208 mg/dL (70-110)
[2023-05-16] MEDS: INSULIN ASPART (NovoLOG) 100 UNIT/ML VIAL SQ SCH (06:41)
[2023-05-16 08:10] VITALS: BP 151/89; PULSE 100; RESP 19; TEMP 98.4
[2023-05-16] MEDS: hydrOXYzine HCL 25 MG TAB PO SCH (08:39)
[2023-05-16] MEDS: DAPAGLIFLOZIN PROPANEDIOL 5 MG TABLET PO SCH (08:40)
[2023-05-16] MEDS: HYDROXYCHLOROQUINE SULFATE 200 MG TAB PO SCH (08:40)
[2023-05-16] MEDS: PANTOPRAZOLE 40 MG/10 ML VIAL IV SCH (08:41)
[2023-05-16] MEDS: METOPROLOL TARTRATE 50 MG TAB PO SCH (08:42)
[2023-05-16] MEDS: FLUoxetine HCL 20 MG CAP PO SCH (08:42)
[2023-05-16] MEDS: GABAPENTIN 300 MG CAP PO SCH (08:42)
[2023-05-16] MEDS: allopurinoL 100 MG TAB PO SCH (08:42)
[2023-05-16] MEDS: MONTELUKAST 10 MG TAB PO SCH (08:42)
--- NOTE | 2023-05-16 08:54 | P.OBCN ---
History of Present Illness Consult date: 05/16/23 Reason for consult: other (postmenopausal bleeding, endometrial cancer) Chief complaint: vaginal bleeding History of present illness: Ms. Diaz is a 57 year old female with a past medical history significant for poorly-controlled diabetes mellitus type 2, stage 3 chronic kidney disease, COPD, chronic hypoxic respiratory failure on 4L of oxygen, history of pulmonary embolism October 2022, history of DVT s/p IVF filter placement November 2022, Lupus, anxiety, class 3 obesity, congestive heart failure, hypothyroidism and endometrial cancer who is POD#2 s/p laparoscopic cholecystectomy for cholecystitis whom our service is consulted for post-menopausal bleeding. The patient has known clinical stage 1 endometrial cancer and follows with Dr. Braxton Euceda through [facility]. Given her comorbidities, she has been unable to receive medical clearance for hysterectomy. The patient is also unable to receive radiation therapy given her chronic kidney disease. Therefore, she has been managed with a Mirena IUD and oral Aygestin therapy. The patient states that she has vaginal spotting almost everyday and the vaginal spotting she is experiencing today is consistent with how much she normally bleeds. The amount is described as just enough to be seen on tissue paper during urination. Of note, her hemoglobin is stable at 10.8. OBGYN History: menarche age 12, , menopause at age 48, no history of hormone replacement therapy prior to diagnosis of endometrial cancer. Past Medical History: as above Past Medical History Past Medical History: Cancer, COPD, Diabetes Mellitus, Deep Vein Thrombosis (DVT), Hypertension, Renal Disease, Rheumatoid Arthritis (RA), Thyroid Disorder Additional Past Medical History / Comment(s): O2 @ 4L. SLE LUPUS. STAGE 3 KIDNEY DISEASE. Leukemia, GRAVES DZ , kidney stones, gout, Uterine cancer (no surgery, radiation only) History of Any Multi-Drug Resistant Organisms: Other MDRO Past Surgical History: No Surgical Hx Reported Additional Past Surgical History / Comment(s): BILATERAL ARTHROSCOPY KNEES. D & C (MISCARRIAGES). Past Anesthesia/Blood Transfusion Reactions: No Reported Reaction Past Psychological History: Anxiety Smoking Status: Never smoker Past Alcohol Use History: None Reported Past Drug Use History: None Reported - Past Family History Mother Family Medical History: Congestive Heart Failure (CHF), Diabetes Mellitus Father Family Medical History: Congestive Heart Failure (CHF), Dialysis, Hypertension Medications and Allergies Home Medications Medication Instructions Recorded Confirmed Type Montelukast [Singulair] 10 mg PO DAILY 01/09/17 05/13/23 History allopurinoL [Zyloprim] 100 mg PO BID 01/21/22 05/13/23 History Atorvastatin [Lipitor] 10 mg PO DAILY 02/15/22 05/13/23 History Ondansetron [Zofran] 4 mg PO Q12HR PRN 02/15/22 05/13/23 History Hydroxychloroquine Sulfate 200 mg PO BID 04/13/22 05/13/23 History [Plaquenil] hydrOXYzine HCL [Atarax] 25 mg PO QID 04/13/22 05/13/23 History FLUoxetine HCL [PROzac] 20 mg PO BID 10/27/22 05/13/23 History Pantoprazole [Protonix] 40 mg PO BID 10/27/22 05/13/23 History Insulin Detemir (Levemir) [Levemir] 25 unit SQ HS 11/06/22 05/13/23 History Empagliflozin [Jardiance] 10 mg PO DAILY 11/21/22 05/13/23 History Apixaban [Eliquis] 2.5 mg PO BID #60 tab 12/02/22 05/13/23 Rx Loperamide [Imodium] 2 mg PO BID #30 capsule 12/17/22 05/13/23 Rx Anastrozole 1 mg PO DAILY 05/13/23 05/13/23 History Aspirin EC [Ecotrin Low Dose] 81 mg PO DAILY 05/13/23 05/13/23 History Furosemide [Lasix] 80 mg PO DAILY 05/13/23 05/13/23 History Gabapentin 600 mg PO BID 05/13/23 05/13/23 History Ibuprofen [Motrin] 600 mg PO BID 05/13/23 05/13/23 History Insulin Regular, Human [NovoLIN R] 25 unit SQ DAILY 05/13/23 05/13/23 History Insulin Regular, Human [NovoLIN R] See Protocol SQ AC-BID@1200,1800 05/13/23 05/13/23 History Metoprolol Tartrate [Lopressor] 50 mg PO BID 05/13/23 05/13/23 History gemfibroziL [Lopid] 600 mg PO BID 05/13/23 05/13/23 History Allergies Allergy/AdvReac Type Severity Reaction Status Date / Time ciprofloxacin [From Cipro] Allergy Swelling Verified 05/14/23 14:26 diphenhydramine Allergy Swelling Verified 05/14/23 14:26 [From Benadryl] Influenza Virus Vaccines Allergy Unknown Verified 05/14/23 14:26 iodine Allergy Swelling Verified 05/14/23 14:26 propoxyphene Allergy Swelling Verified 05/14/23 14:26 [From Darvocet-N] red dye Allergy Swelling Verified 05/14/23 14:26 sulfacetamide Allergy Swelling Verified 05/14/23 14:26 [From Sulfamide] yellow dye Allergy Swelling Verified 05/14/23 14:26 Exam Vital Signs Temp Pulse Pulse Resp BP Pulse Ox 05/16/23 07:02 98.4 F 100 19 151/89 98 05/16/23 00:45 98.0 F 103 H 18 122/71 98 05/15/23 20:00 108 H 05/15/23 18:50 97.8 F 108 H 18 135/80 96 05/15/23 14:40 98.0 F 104 H 19 136/83 98 Intake and Output 05/15/23 05/16/23 05/16/23 22:59 06:59 14:59 Intake Total 400 Balance 400 Intake: Oral 400 Other: Voiding Method Bedside Commode # Voids 0 0 Focused physical exam is performed. The patient is pleasant and conversational. She is on supplemental oxygen, breathing is non-labored. Abdomen is soft, non- tender. Incisions are clean, dry, and intact. Patient declines speculum exam however there is no blood appreciated at the vaginal introitus or in between the legs. Extremities are non-tender, non-edematous. Results Result Diagrams: 05/15/23 06:09 05/15/23 06:09 Abnormal Lab Results - Last 24 Hours (Table) 05/15/23 05/15/23 05/15/23 Range/Units 11:55 16:52 19:48 POC Glucose (mg/dL) 321 H 179 H 477 H (70-110) mg/dL 05/16/23 Range/Units 05:36 POC Glucose (mg/dL) 208 H (70-110) mg/dL Microbiology - Last 24 Hours (Table) 05/14/23 10:00 Urine Culture - Preliminary Urine,Voided Gram Neg Bacilli Assessment and Plan Assessment: 57 year old with known clinical stage 1 endometrial cancer managed with Mirena IUD and oral Aygestin (given that patient is a poor surgical candidate) complaining of vaginal spotting Plan: Hemoglobin stable, no symptoms of anemia, vaginal spotting consistent with the normal daily amount of spotting the patient has on progesterone therapy for endometrial cancer. Patient stable for discharge from OBGYN standpoint. Patient states her next appointment with Dr. Euceda ([facility]) is in June. Thank you for this consult, please reach out for any other questions or concerns. Time with Patient: Greater than 30 (45 minutes)
[2023-05-16] MEDS ORDERED: ANASTROZOLE 1 MG TAB PO SCH (09:00)
[2023-05-16] MEDS ORDERED: APIXABAN 2.5 MG TABLET PO SCH (09:00)
[2023-05-16] MEDS: INSULIN REGULAR 100 UNIT/ML VIAL (IV) SQ SCH (09:34)
[2023-05-16 11:07] LABS: HGB 9.7 g/dL (12.0-15.0); MCH 28.2 pg (27.0-32.0); MCHC 31.3 g/dL (32.0-37.0); MCV 90.1 FL (80.0-97.0); NRBC Per 100 WBC 0 X 10*3/uL (0.00-0.01); Platelet Count 294 X 10*3/uL (140-440); RBC 3.44 X 10*6/uL (4.10-5.20); RDW 14.6 % (11.5-14.5); WBC 8.22 X 10*3/uL (4.50-10.00)
[2023-05-16 11:44] LABS: Blood Urea Nitrogen 26.6 mg/dL (9.0-27.0); Calcium 8.7 mg/dL (8.7-10.3); Carbon Dioxide 20.3 mmol/L (21.6-31.8); Chloride 111 mmol/L (96-109); Glucose 204 mg/dL (70-110); Potassium 5.3 mmol/L (3.5-5.5); Sodium 141 mmol/L (135-145)
--- NOTE | 2023-05-16 12:17 | P.PN ---
Subjective Progress Note Date: 05/16/23 * 57-year-old lady with past medical history significant for diabetes mellitus type 2, chronic kidney disease stage III, history of COPD, chronic hypoxic respiratory failure on 4 L of oxygen, history of pulm embolism October 2022, previous history of DVT with s/p IVC filter placement in November 2022, history of lupus, anxiety, morbid obesity, history of vaginal bleeding, history of gallstones presents to the emergency department with complaints of abdominal pain. Patient was scheduled to follow-up with general surgery secondary to issues with a gallstone however her pain got worsened and decided to come to the emergency department to seek further attention. * Workup initiated in ER included CBC showed WBC count of 13.1 hemoglobin 11 platelet count of 382, serum chemistry showed sodium 140 potassium 5.2 chloride of 111, dioxide 18 BUN 21 creatinine 1.1, glucose of 220, urinalysis was obtained which showed trace amount of leukocyte Estrace, many bacteria, WBC clumps were noted as well. * While in ER patient was started on IV antibiotics, IV fluid were ordered and admitted under general surgery service with consultation from medicine for medical management * General surgery planning cholecystectomy, patient remains moderate risk secondary to multiple comorbidities however risk outweighs the benefit at this point * 05/15/2023: Patient seen and evaluated bedside patient is postoperative day 1 status postcholecystectomy. Serum chemistry and CBC reviewed hemoglobin 10.8, remains stable. Patient followed up by surgery continue on IV antibiotics. Urine culture positive for gram-negative bacilli patient receiving Zosyn. Multiple antibiotic allergies noted * 05/16/2023: Patient seen and evaluated bedside, patient cleared for discharge by surgery, seen by DIRECTOR PROJECT MANAGEMENT as well, outpatient follow-up with PCP recommended REVIEW OF SYSTEMS: Abdominal pain resolved CONSTITUTIONAL: No fever, no malaise, no fatigue. HEENT: No recent visual problems or hearing problems. Denied any sore throat. CARDIOVASCULAR: No chest pain, orthopnea, PND, no palpitations, no syncope. PULMONARY: No shortness of breath, no cough, no hemoptysis. GASTROINTESTINAL:Abdominal pain resolved NEUROLOGICAL: No headaches, no weakness, no numbness. HEMATOLOGICAL: Denies any bleeding or petechiae. GENITOURINARY: Denies any burning micturition, frequency, or urgency. MUSCULOSKELETAL/RHEUMATOLOGICAL: Denies any joint pain, swelling, or any muscle pain. ENDOCRINE: Denies any polyuria or polydipsia. PHYSICAL EXAMINATION: GENERAL: The patient is alert and oriented x3, nasal cannula in place HEENT: Pupils are round and equally reacting to light. EOMI. CARDIOVASCULAR: S1 and S2 present. No murmurs, rubs, or gallops. PULMONARY: Chest is clear to auscultation, no wheezing or crackles. ABDOMEN: Soft, no guarding or rigidity, s/p surgery abdominal incision intact laparoscopic cholecystectomy MUSCULOSKELETAL: No joint swelling or deformity. EXTREMITIES: No cyanosis, clubbing, or pedal edema. NEUROLOGICAL: Gross neurological examination did not reveal any focal deficits. SKIN: No rashes. Objective - Vital Signs Vital signs: Vital Signs Temp 98.4 F 05/16/23 07:02 Pulse 100 05/16/23 07:02 Resp 19 05/16/23 07:02 BP 151/89 05/16/23 07:02 Pulse Ox 98 05/16/23 07:02 FiO2 Intake & Output 05/15/23 05/16/23 05/16/23 18:59 06:59 18:59 Intake Total 600 Output Total 600 Balance 0 Intake: Oral 600 Output: Urine 600 Other: Voiding Method Bedside Commode # Voids 2 0 - Labs CBC & Chem 7: 05/16/23 05:39 05/16/23 05:44 Labs: Abnormal Lab Results - Last 24 Hours (Table) 05/15/23 05/15/23 05/16/23 Range/Units 16:52 19:48 05:36 RBC (4.10-5.20) X 10*6/uL Hgb (12.0-15.0) g/dL Hct (37.2-46.3) % MCHC (32.0-37.0) g/dL RDW (11.5-14.5) % Chloride (96-109) mmol/L Carbon Dioxide (21.6-31.8) mmol/L Creatinine (0.6-1.5) mg/dL Est GFR (CKD-EPI) (>=60) Glucose (70-110) mg/dL POC Glucose (mg/dL) 179 H 477 H 208 H (70-110) mg/dL 05/16/23 05/16/23 Range/Units 05:39 05:44 RBC 3.44 L (4.10-5.20) X 10*6/uL Hgb 9.7 L (12.0-15.0) g/dL Hct 31.0 L (37.2-46.3) % MCHC 31.3 L (32.0-37.0) g/dL RDW 14.6 H (11.5-14.5) % Chloride 111 H (96-109) mmol/L Carbon Dioxide 20.3 L (21.6-31.8) mmol/L Creatinine 1.9 H (0.6-1.5) mg/dL Est GFR (CKD-EPI) 31 L (>=60) Glucose 204 H (70-110) mg/dL POC Glucose (mg/dL) (70-110) mg/dL Microbiology - Last 24 Hours (Table) 05/14/23 10:00 Urine Culture - Preliminary Urine,Voided Gram Neg Bacilli Assessment and Plan Assessment: Assessment and plan * Symptomatic cholelithiasis s/p cholecystectomy postoperative day 2 * Mild hyperkalemia, hypomagnesemia * Urinary tract infection * History of pulmonary embolism * S/p IVC filter in place * History of stage I endometrial cancer vaginal spotting * Chronic hypoxic respiratory failure on 4 L of oxygen * History of COPD not in exacerbation * Disease mellitus type II * In regards to diabetes mellitus, Accu-Cheks, continue patient on Lantus, dose increased, continue correctional insulin oral hypoglycemic agents resumed including Jardiance * In regards to COPD, encourage use incentive spirometer, as needed breathing treatment continue oxygen supplementation * In regards to urinary tract infection urine cultures ordered continue IV Zosyn day 3, gram-negative bacilli noted. Transition to oral Ceftin * In regards to history of pulm embolism patient is on Eliquis , resumed from 05/16/2023 after clearance from general surgery * In regards to hyperkalemia patient given insulin and dextrose, follow-up potassium levels improved * In regards to history of endometrial cancer with vaginal spotting seen by DIRECTOR PROJECT MANAGEMENT * CODE STATUS is full code
--- NOTE | 2023-05-16 13:24 | P.DS ---
Providers Date of admission: 05/13/23 16:25 Expected date of discharge: 05/16/23 Attending physician: Anjel Chairez Consults: 05/14/23 09:07 Consult Physician Routine Consulting Provider: Isabela Shelley Consult Reason/Comments: medical management Do you want consulting provider notified?: Yes 05/15/23 16:23 Consult Physician Routine Consulting Provider: Ranjit SHIRT CREASER Consult Reason/Comments: vaginal bleeding Do you want consulting provider notified?: Yes Primary care physician: Stated None Hospital Course: Discharge diagnosis 1. Cholecystitis status post laparoscopic cholecystectomy Hospital course This is a 57-year-old female who presented with right upper quadrant abdominal pain. Her CT scan had showed gallbladder filled with calcified stones. She was diagnosed with cholecystitis. Patient status post laparoscopic cholecystectomy. She is tolerating diet. Her pain is controlled. She has been up and ambulating. She is having flatus. She is afebrile. Incision sites clean dry and intact. She is stable for discharge. Please refer to chart for any further details. Physician Recreation Officer note has been reviewed by physician. Signing provider agrees with the documented findings, assessment, and plan of care. I have personally seen and examined the patient, reviewed the BILLER /PAs history, exam and MDM and agree with the assessment and plan as written. Based on total visit time, I have performed more than 50% of the visit. As above: Patient was doing better today. Tolerating diet and ambulating. Patient wanted to go home. She was seen by nurse practitioner and discharged. Follow-up with Dr. Chairez as outpatient. Patient Condition at Discharge: Stable Plan - Discharge Summary Discharge Rx Participant: Yes New Discharge Prescriptions: New cefUROXime axetiL [Ceftin] 500 mg PO BID 2 Days #4 tab HYDROcodone/APAP 5-325MG [[place] 5-325] 1 tab PO Q6HR PRN 3 Days #12 tab PRN Reason: Pain Continue Montelukast [Singulair] 10 mg PO DAILY hydrOXYzine HCL [Atarax] 25 mg PO QID FLUoxetine HCL [PROzac] 20 mg PO BID Empagliflozin [Jardiance] 10 mg PO DAILY Apixaban [Eliquis] 2.5 mg PO BID #60 tab Anastrozole 1 mg PO DAILY Metoprolol Tartrate [Lopressor] 50 mg PO BID gemfibroziL [Lopid] 600 mg PO BID allopurinoL [Zyloprim] 100 mg PO BID Ondansetron [Zofran] 4 mg PO Q12HR PRN PRN Reason: Nausea Atorvastatin [Lipitor] 10 mg PO DAILY Hydroxychloroquine Sulfate [Plaquenil] 200 mg PO BID Pantoprazole [Protonix] 40 mg PO BID Insulin Detemir (Levemir) [Levemir] 25 unit SQ HS Insulin Regular, Human [NovoLIN R] 25 unit SQ DAILY Furosemide [Lasix] 80 mg PO DAILY Aspirin EC [Ecotrin Low Dose] 81 mg PO DAILY Gabapentin 600 mg PO BID Insulin Regular, Human [NovoLIN R] See Protocol SQ AC-BID@1200,1800 Discontinued Ibuprofen [Motrin] 600 mg PO BID Loperamide [Imodium] 2 mg PO BID #30 capsule Discharge Medication List Montelukast [Singulair] 10 mg PO DAILY 01/09/17 [History] allopurinoL [Zyloprim] 100 mg PO BID 01/21/22 [History] Atorvastatin [Lipitor] 10 mg PO DAILY 02/15/22 [History] Ondansetron [Zofran] 4 mg PO Q12HR PRN 02/15/22 [History] Hydroxychloroquine Sulfate [Plaquenil] 200 mg PO BID 04/13/22 [History] hydrOXYzine HCL [Atarax] 25 mg PO QID 04/13/22 [History] FLUoxetine HCL [PROzac] 20 mg PO BID 10/27/22 [History] Pantoprazole [Protonix] 40 mg PO BID 10/27/22 [History] Insulin Detemir (Levemir) [Levemir] 25 unit SQ HS 11/06/22 [History] Empagliflozin [Jardiance] 10 mg PO DAILY 11/21/22 [History] Apixaban [Eliquis] 2.5 mg PO BID #60 tab 12/02/22 [Rx] Anastrozole 1 mg PO DAILY 05/13/23 [History] Aspirin EC [Ecotrin Low Dose] 81 mg PO DAILY 05/13/23 [History] Furosemide [Lasix] 80 mg PO DAILY 05/13/23 [History] Gabapentin 600 mg PO BID 05/13/23 [History] Insulin Regular, Human [NovoLIN R] 25 unit SQ DAILY 05/13/23 [History] Insulin Regular, Human [NovoLIN R] See Protocol SQ AC-BID@1200,1800 05/13/23 [History] Metoprolol Tartrate [Lopressor] 50 mg PO BID 05/13/23 [History] gemfibroziL [Lopid] 600 mg PO BID 05/13/23 [History] HYDROcodone/APAP 5-325MG [[place] 5-325] 1 tab PO Q6HR PRN 3 Days #12 tab 05/16/23 [Rx] cefUROXime axetiL [Ceftin] 500 mg PO BID 2 Days #4 tab 05/16/23 [Rx] Follow up Appointment(s)/Referral(s): None,Stated [Primary Care Provider] - 1-2 days Anjel Chairez MD [STAFF PHYSICIAN] - 1 Week Patient Instructions/Handouts: *Surgery [facility] - Laparoscopic Cholecystectomy Discharge Instructions, Laparoscopic Cholecystectomy (DC) Activity/Diet/Wound Care/Special Instructions: No driving while taking [place] No lifting over 10 pounds You may shower. No soaking or tub baths for 2 weeks Very light activity until you are reevaluated at your follow up appointment with your surgeon Discharge/Stand Alone Forms: Area PCPs Discharge Disposition: HOME SELF-CARE
[2023-05-16 15:14] LABS: Glucose,Whole Blood 173 mg/dL (70-110)
== END 2023-05-16 15:56 | disposition home or self-care (01) ==
LOC: OR 15:14 → 1SOBS 16:25 → 4SSUR 05-14 21:15
PROVIDERS: ADMIT Surgery; ATTEND Surgery
DX: K80.12 Calculus of gallbladder with acute and chronic cholecystitis without obstruction (principal); E87.5 Hyperkalemia; E83.42 Hypomagnesemia; N95.0 Postmenopausal bleeding; C54.1 Malignant neoplasm of endometrium; I13.0 Hypertensive heart and chronic kidney disease with heart failure and stage 1 through stage 4 chronic kidney disease, or unspecified chronic kidney disease; N18.30 Chronic kidney disease, stage 3 unspecified; I50.9 Heart failure, unspecified; E11.22 Type 2 diabetes mellitus with diabetic chronic kidney disease; M32.9 Systemic lupus erythematosus, unspecified; J44.9 Chronic obstructive pulmonary disease, unspecified; J96.11 Chronic respiratory failure with hypoxia; E05.00 Thyrotoxicosis with diffuse goiter without thyrotoxic crisis or storm; M06.9 Rheumatoid arthritis, unspecified; N39.0 Urinary tract infection, site not specified; E66.01 Morbid (severe) obesity due to excess calories; Z68.41 Body mass index [BMI] 40.0-44.9, adult; Z16.24 Resistance to multiple antibiotics; F41.9 Anxiety disorder, unspecified; Z99.81 Dependence on supplemental oxygen; Z79.4 Long term (current) use of insulin; Z79.84 Long term (current) use of oral hypoglycemic drugs; Z79.811 Long term (current) use of aromatase inhibitors; Z79.82 Long term (current) use of aspirin; Z79.01 Long term (current) use of anticoagulants; Z79.899 Other long term (current) drug therapy; Z88.1 Allergy status to other antibiotic agents; Z88.5 Allergy status to narcotic agent; Z88.2 Allergy status to sulfonamides; Z88.8 Allergy status to other drugs, medicaments and biological substances; Z91.048 Other nonmedicinal substance allergy status; Z86.711 Personal history of pulmonary embolism; Z86.718 Personal history of other venous thrombosis and embolism; Z95.828 Presence of other vascular implants and grafts; Z97.5 Presence of (intrauterine) contraceptive device; Z85.42 Personal history of malignant neoplasm of other parts of uterus; Z85.6 Personal history of leukemia; Z87.442 Personal history of urinary calculi
CPT/HCPCS: 47562; S2900; 80048; 80053; 81001; 83605; 83690; 83735; 84100; 84132; 85025; 85027; 87077; 87086; 87186; 88304; 93005; 94640; 94760; 96365; 96366; 96375; 96376; 99285

== ENCOUNTER 2023-09-27 07:47 | Inpatient (IN) | payer MEDICARE ==
[2023-09-27 08:51] LABS: Basophils # (A) 0.1 k/uL (0-0.2); Basophils % (A) 0 %; Eosinophils # (A) 0.4 k/uL (0-0.7); Eosinophils % (A) 2 %; HCT 32.5 % (34.0-46.0); HGB 10.2 gm/dL (11.4-16.0); Lymphocytes # (A) 1.6 k/uL (1.0-4.8); Lymphocytes % (A) 6 %; MCH 28.5 pg (25.0-35.0); MCHC 31.5 g/dL (31.0-37.0); MCV 90.4 fL (80.0-100.0); Mean Platelet Volume 8.3; Monocytes # (A) 1.1 k/uL (0-1.0); Monocytes % (A) 4 %; Neutrophils # (A) 24.4 k/uL (1.3-7.7); Neutrophils % (A) 88 %; Platelet Count 449 k/uL (150-450); RBC 3.59 m/uL (3.80-5.40); RDW 13.5 % (11.5-15.5); WBC 27.8 k/uL (3.8-10.6)
[2023-09-27] MEDS: SODIUM CHLORIDE 0.9% 500 ML 500 ML IV STA (09:00)
[2023-09-27 09:01] LABS: INR 0.9 (<1.2); Prothrombin Time 10.5 sec (10.0-12.5)
[2023-09-27] MEDS: ONDANSETRON 4 MG/2 ML VIAL IVP STA (09:01)
[2023-09-27 09:05] LABS: ALT 8 U/L (4-34); AST 11 U/L (14-36); African American GFR (CKD) 31 (>60 ml/min/1.73 sqM); Albumin 3.6 g/dL (3.5-5.0); Alkaline Phosphatase 191 U/L (38-126); Anion Gap 11 mmol/L; Blood Urea Nitrogen 58 mg/dL (7-17); Carbon Dioxide 20 mmol/L (22-30); Chloride 99 mmol/L (98-107); Magnesium 1.8 mg/dL (1.6-2.3); Non-African American GFR(CKD) 27 (>60 ml/min/1.73 sqM); Sodium 130 mmol/L (137-145); Total Bilirubin 0.8 mg/dL (0.2-1.3); Total Protein 6.8 g/dL (6.3-8.2)
[2023-09-27 09:09] LABS: Glucose 604 mg/dL (74-99)
[2023-09-27 09:14] LABS: NT-Pro-B-Type Natriuretic Pept 1900 pg/mL
[2023-09-27 09:22] LABS: Appearance,Urine Cloudy (Clear); Bacteria,Urine Many /hpf; Bilirubin,Urine Negative (Negative); Blood,Urine Large (Negative); Color,Urine Light Yellow; Glucose,Urine (UA) 4+ (Negative); Ketones,Urine Negative (Negative); Leukocyte Esterase,Urine Large (Negative); Nitrite,Urine Negative (Negative); PH, Urine 5.5 (5.0-8.0); Protein,Urine 1+ (Negative); RBC,Urine >182 /hpf (0-5); Specific Gravity,Urine 1.015 (1.001-1.035); Urobilinogen,Urine <2.0 mg/dL (<2.0); WBC,Urine >182 /hpf (0-5)
[2023-09-27] MEDS ORDERED: DEXTROSE 50% SYRINGE 50 ML IVP PRN ×4 (09:35→13:50)
[2023-09-27] MEDS: ACETAMINOPHEN TAB 500 MG TAB PO STA (09:52)
--- NOTE | 2023-09-27 10:05 | XR ---
EXAMINATION TYPE: XR chest 2V DATE OF EXAM: 09/27/2023 9:34 AM CLINICAL INDICATION:Female, 58 years old with history of Weakness; [facility] COMPARISON: None TECHNIQUE: XR chest 2V. Frontal and lateral views of the chest.. FINDINGS: Exam is limited by patient body habitus. Lines/Tubes/Devices: EKG leads overlie the chest. No indwelling lines are seen. Heart/mediastinum: Heart size upper normal. Mild tortuous aorta. Mediastinal contours are normal. Pulmonary vascularity: Not increased, Lungs/Pleura: Lungs appear hyperinflated with interstitial coarsening, findings suggestive of COPD/em physema. There is no evidence of pleural effusion, focal consolidation, or pneumothorax. Musculoskeletal: No acute osseous abnormality demonstrated in the limits of the exam. Degenerative c hanges of the spine and shoulders. Other findings: None. IMPRESSION: No acute cardiopulmonary abnormality.
--- NOTE | 2023-09-27 10:07 | ED ---
Weakness HPI - General Chief complaint: Weakness Stated complaint: Weakness Time Seen by Provider: 09/27/23 07:51 Source: patient, EMS Mode of arrival: EMS - History of Present Illness Initial comments: 58-year-old female with past medical history of COPD on 4 L home O2, chronic kidney disease, endometrial cancer who presents emergency department with failure to thrive. She states she has not felt well for the past 5 days. Her has been hospitalized and therefore she was having difficulty caring for herself. She has not been eating or drinking. Patient has had some nonbloody diarrhea. She admits to body aches and fevers. She has had nausea without v omiting. Patient states she has been taking all of her medications except for her insulin. Does admit to persistent vaginal bleeding due to her history of endometrial cancer for which she is not a surgical candidate. She denies any chest pain or difficulty breathing. No other alleviating, precipitating modifying factors - Related Data Home Medications Medication Instructions Recorded Confirmed Montelukast [Singulair] 10 mg PO DAILY 01/09/17 09/27/23 allopurinoL [Zyloprim] 100 mg PO BID 01/21/22 09/27/23 Atorvastatin [Lipitor] 10 mg PO DAILY 02/15/22 09/27/23 Hydroxychloroquine Sulfate 200 mg PO BID 04/13/22 09/27/23 [Plaquenil] hydrOXYzine HCL [Atarax] 25 mg PO QID 04/13/22 09/27/23 FLUoxetine HCL [PROzac] 20 mg PO BID 10/27/22 09/27/23 Pantoprazole [Protonix] 40 mg PO BID 10/27/22 09/27/23 Empagliflozin [Jardiance] 10 mg PO DAILY 11/21/22 09/27/23 Anastrozole 1 mg PO DAILY 05/13/23 09/27/23 Metoprolol Tartrate [Lopressor] 50 mg PO BID 05/13/23 09/27/23 gemfibroziL [Lopid] 600 mg PO BID 05/13/23 09/27/23 Furosemide [Lasix] 80 mg PO DAILY 09/27/23 09/27/23 INSULIN ASPART (NovoLOG) [NovoLOG See Protocol SQ TID 09/27/23 09/27/23 (formulary)] Previous Rx's Medication Instructions Recorded Apixaban [Eliquis] 2.5 mg PO BID #60 tab 12/02/22 Allergies Allergy/AdvReac Type Severity Reaction Status Date / Time ciprofloxacin [From Cipro] Allergy Swelling Verified 09/27/23 12:37 diphenhydramine Allergy Swelling Verified 09/27/23 12:37 [From Benadryl] Influenza Virus Vaccines Allergy Anaphylaxis Verified 09/27/23 12:37 iodine Allergy Swelling Verified 09/27/23 12:37 propoxyphene Allergy Swelling Verified 09/27/23 12:37 [From Darvocet-N] red dye Allergy Swelling Verified 09/27/23 12:37 Sulfa (Sulfonamide Allergy Anaphylaxis, Verified 09/27/23 12:37 Antibiotics) heart rate up sulfacetamide Allergy Swelling Verified 09/27/23 12:37 [From Sulfamide] yellow dye Allergy Swelling Verified 09/27/23 12:37 Review of Systems ROS Statement: Those systems with pertinent positive or pertinent negative responses have been documented in the HPI. ROS Other: All systems not noted in ROS Statement are negative. Past Medical History Past Medical History: Cancer, COPD, Diabetes Mellitus, Deep Vein Thrombosis (DVT), Hypertension, Renal Disease, Rheumatoid Arthritis (RA), Thyroid Disorder Additional Past Medical History / Comment(s): O2 @ 4L. SLE LUPUS. STAGE 3 KIDNEY DISEASE. Leukemia, GRAVES DZ , kidney stones, gout, Uterine cancer (no surgery, radiation only) History of Any Multi-Drug Resistant Organisms: Other MDRO Past Surgical History: Cholecystectomy Additional Past Surgical History / Comment(s): BILATERAL ARTHROSCOPY KNEES. D & C (MISCARRIAGES). Past Anesthesia/Blood Transfusion Reactions: No Reported Reaction Past Psychological History: Anxiety Smoking Status: Never smoker Past Alcohol Use History: None Reported Past Drug Use History: None Reported - Past Family History Mother Family Medical History: Congestive Heart Failure (CHF), Diabetes Mellitus Father Family Medical History: Congestive Heart Failure (CHF), Dialysis, Hypertension General Exam General appearance: alert, in no apparent distress Head exam: Present: atraumatic, normocephalic, normal inspection Eye exam: Present: normal appearance, PERRL, EOMI. Absent: scleral icterus, conjunctival injection, periorbital swelling ENT exam: Present: normal exam, mucous membranes moist Neck exam: Present: normal inspection. Absent: tenderness, meningismus, lymphadenopathy Respiratory exam: Present: normal lung sounds bilaterally. Absent: respiratory distress, wheezes, rales, rhonchi, stridor Cardiovascular Exam: Present: regular rate, normal rhythm, normal heart sounds. Absent: systolic murmur, diastolic murmur, rubs, gallop, clicks GI/Abdominal exam: Present: soft, normal bowel sounds. Absent: distended, tenderness, guarding, rebound, rigid Extremities exam: Present: normal inspection, full ROM, normal capillary refill. Absent: tenderness, pedal edema, joint swelling, calf tenderness Back exam: Present: other ([place] stage II left lower lumbar region) Neurological exam: Present: alert, oriented X3, CN II-XII intact Psychiatric exam: Present: normal affect, normal mood Skin exam: Present: warm, dry, intact, normal color. Absent: rash Course Vital Signs 09/27/23 09/27/23 09/27/23 07:56 09:15 10:25 Temperature 98.2 F 101.5 F H 100.6 F H Pulse Rate 113 H 108 H 113 H Pulse Rate [ Alumni Coordinator ] Respiratory 20 20 18 Rate Blood Pressure 122/76 123/63 117/70 Blood Pressure [Left Arm] O2 Sat by Pulse 100 99 100 Oximetry 09/27/23 09/27/23 09/27/23 11:37 12:00 12:28 Temperature 99.6 F 97.6 F Pulse Rate 105 H 125 H 68 Pulse Rate [ Alumni Coordinator ] Respiratory 16 22 26 H Rate Blood Pressure 116/60 110/68 121/65 Blood Pressure [Left Arm] O2 Sat by Pulse 100 98 91 L Oximetry 09/27/23 09/27/23 09/27/23 13:47 15:24 16:03 Temperature 98.3 F 98.9 F Pulse Rate 129 H 126 H 124 H Pulse Rate [ Alumni Coordinator ] Respiratory 16 18 20 Rate Blood Pressure 101/69 121/73 Blood Pressure [Left Arm] O2 Sat by Pulse 99 99 100 Oximetry 09/27/23 09/28/23 09/28/23 22:35 05:51 07:52 Temperature 98.3 F Pulse Rate 125 H 118 H Pulse Rate [ 98 Alumni Coordinator ] Respiratory 21 18 18 Rate Blood Pressure 108/72 88/66 Blood Pressure 101/59 [Left Arm] O2 Sat by Pulse 98 95 96 Oximetry 09/28/23 09/28/23 09/28/23 08:00 14:00 19:26 Temperature 99.3 F 99.8 F H Pulse Rate 94 Pulse Rate [ 98 Alumni Coordinator ] Respiratory 18 18 18 Rate Blood Pressure 116/42 Blood Pressure 102/62 [Left Arm] O2 Sat by Pulse 100 100 Oximetry 09/28/23 09/28/23 20:00 21:08 Temperature 99.4 F Pulse Rate 105 H Pulse Rate [ Alumni Coordinator ] Respiratory 16 18 Rate Blood Pressure 127/77 Blood Pressure [Left Arm] O2 Sat by Pulse 99 Oximetry Procedures - [place] Protocol (Time Out) Nurse: Sinai Hernandez Medical Decision Making - Medical Decision Making Was pt. sent in by a medical professional or institution (, PA, GIFT MANAGER, urgent care, hospital, or shelter...) When possible be specific @ -No Did you speak to anyone other than the patient for history (EMS, parent, family, police, friend...)? What history was obtained from this source @ -Spoke with EMS for history Did you review nursing and triage notes (agree or disagree)? Why? @ -I reviewed and agree with nursing and triage notes Were old charts reviewed (outside hosp., previous admission, EMS record, old EKG, old radiological studies, urgent care reports/EKG's, shelter records)? Report findings @ -No old charts were reviewed Differential Diagnosis (chest pain, altered mental status, abdominal pain women, abdominal pain men, vaginal bleeding, weakness, fever, dyspnea, syncope, headache, dizziness, GI bleed, back pain, seizure, CVA, palpatations, mental health, musculoskeletal)? @ -Differential Weakness: Hypoglycemia, shock, sepsis, hyponatremia, anemia, infection, OH, ETOH, adverse medicine reaction, overdose, stroke, this is not meant to be an all-inclusive list. EKG interpreted by me (3pts min.). @ -Yes and demonstrates sinus tachycardia with a rate of 110. VT interval 140. QRS 92. QTc of 417. No acute ST segment elevations or depressions X-rays interpreted by me (1pt min.). @ -Yes and demonstrates no acute abnormality CT interpreted by me (1pt min.). @ -None done U/S interpreted by me (1pt. min.). @ -None done What testing was considered but not performed or refused? (CT, X-rays, U/S, labs)? Why? @ -None What meds were considered but not given or refused? Why? @ -None Did you discuss the management of the patient with other professionals (professionals i.e. , PA, GIFT MANAGER, lab, RT, psych nurse, group social worker, wine consultant, teacher, tactical intelligence officer, case finishing machine adjuster)? Give summary @ -Spoke with Dr. Valdivia for admission Was smoking cessation discussed for >3mins.? @ -No Was critical care preformed (if so, how long)? @ -No Were there social determinants of health that impacted care today? How? (Homelessness, low income, unemployed, alcoholism, drug addiction, transportation, low edu. Level, literacy, decrease access to med. care, assisted, rehab)? @ -No Was there de-escalation of care discussed even if they declined (Discuss DNR or withdrawal of care, Hospice)? DNR status @ -No What co-morbidities impacted this encounter? (DM, HTN, Smoking, COPD, CAD, Cancer, CVA, ARF, Chemo, Hep., AIDS, mental health diagnosis, sleep apnea, morbid obesity)? @ -Endometrial cancer, chronic kidney disease, CHF, COPD on home O2 Was patient admitted / discharged? Hospital course, mention meds given and route, prescriptions, significant lab abnormalities, going to OR and other pertinent info. @ -Upon arrival patient seen and evaluated in room 1. Thorough history and physical exam was performed. IV access was established. Laboratory studies are conducted. Chest x-ray was performed. Patient does have development of a fever. Source appears to be urinary. Patient is administered antibiotics. I did recommend admission for patient's decompensated status with inability to care for herself. Wound care will have to see the patient for the wounds on her back. Patient is started on a sliding scale for her hyperglycemia. She was agreeable to admission and awaiting a bed on the floor in stable condition Undiagnosed new problem with uncertain prognosis? @ -No Drug Therapy requiring intensive monitoring for toxicity (Heparin, Nitro, Insulin, Cardizem)? @ -No Were any procedures done? @ -No Diagnosis/symptom? @ -Acute generalized weakness, acute UTI, acute pyrexia, acute hyperglycemia Acute, or Chronic, or Acute on Chronic? @ -Acute Uncomplicated (without systemic symptoms) or Complicated (systemic symptoms)? @ -Complicated Side effects of treatment? @ -No Exacerbation, Progression, or Severe Exacerbation? @ -No Poses a threat to life or bodily function? How? (Chest pain, [place], [place], pneumonia, PE, COPD, DKA, ARF, appy, cholecystitis, CVA, Diverticulitis, Homicidal, Suic idal, threat to staff... and all critical care pts) @ -No - Lab Data Result diagrams: 09/29/23 07:25 09/29/23 07:25 Lab Results 09/27/23 09/27/23 09/27/23 Range/Units 08:43 08:43 08:43 WBC 27.8 H (3.8-10.6) k/uL RBC 3.59 L (3.80-5.40) m/uL Hgb 10.2 L (11.4-16.0) gm/dL Hct 32.5 L (34.0-46.0) % MCV 90.4 (80.0-100.0) fL MCH 28.5 (25.0-35.0) pg MCHC 31.5 (31.0-37.0) g/dL RDW 13.5 (11.5-15.5) % Plt Count 449 (150-450) k/uL MPV 8.3 Neutrophils % 88 % Lymphocytes % 6 % Monocytes % 4 % Eosinophils % 2 % Basophils % 0 % Neutrophils # 24.4 H (1.3-7.7) k/uL Lymphocytes # 1.6 (1.0-4.8) k/uL Monocytes # 1.1 H (0-1.0) k/uL Eosinophils # 0.4 (0-0.7) k/uL Basophils # 0.1 (0-0.2) k/uL PT 10.5 (10.0-12.5) sec INR 0.9 (<1.2) APTT 26.0 (22.0-30.0) sec Sodium (137-145) mmol/L Potassium (3.5-5.1) mmol/L Chloride (98-107) mmol/L Carbon Dioxide (22-30) mmol/L Anion Gap mmol/L BUN (7-17) mg/dL Creatinine (0.52-1.04) mg/dL Est GFR (CKD-EPI)AfAm (>60 ml/min/1.73 sqM) Est GFR (CKD-EPI)NonAf (>60 ml/min/1.73 sqM) Glucose (74-99) mg/dL Plasma Lactic Acid [place] (0.7-2.0) mmol/L Calcium (8.4-10.2) mg/dL Magnesium (1.6-2.3) mg/dL Total Bilirubin (0.2-1.3) mg/dL AST (14-36) U/L ALT (4-34) U/L Alkaline Phosphatase (38-126) U/L Troponin I (0.000-0.034) ng/mL NT-Pro-B Natriuret Pep pg/mL Total Protein (6.3-8.2) g/dL Albumin (3.5-5.0) g/dL Urine Color Light Yellow Urine Appearance Cloudy H (Clear) Urine pH 5.5 (5.0-8.0) Ur Specific [place] 1.015 (1.001-1.035) Urine Protein 1+ H (Negative) Urine Glucose (UA) 4+ H (Negative) Urine Ketones Negative (Negative) Urine Blood Large H (Negative) Urine Nitrite Negative (Negative) Urine Bilirubin Negative (Negative) Urine Urobilinogen <2.0 (<2.0) mg/dL Ur Leukocyte Esterase Large H (Negative) Urine RBC >182 H (0-5) /hpf Urine WBC >182 H (0-5) /hpf Urine Bacteria Many H (None) /hpf Acetone, Qual (Negative) Blood Type Blood Type Recheck Bld Type Recheck Status Antibody Screen Spec Expiration Date 09/27/23 09/27/23 09/27/23 Range/Units 08:43 08:43 08:43 WBC (3.8-10.6) k/uL RBC (3.80-5.40) m/uL Hgb (11.4-16.0) gm/dL Hct (34.0-46.0) % MCV (80.0-100.0) fL MCH (25.0-35.0) pg MCHC (31.0-37.0) g/dL RDW (11.5-15.5) % Plt Count (150-450) k/uL MPV Neutrophils % % Lymphocytes % % Monocytes % % Eosinophils % % Basophils % % Neutrophils # (1.3-7.7) k/uL Lymphocytes # (1.0-4.8) k/uL Monocytes # (0-1.0) k/uL Eosinophils # (0-0.7) k/uL Basophils # (0-0.2) k/uL PT (10.0-12.5) sec INR (<1.2) APTT (22.0-30.0) sec Sodium 130 L (137-145) mmol/L Potassium 5.0 (3.5-5.1) mmol/L Chloride 99 (98-107) mmol/L Carbon Dioxide 20 L (22-30) mmol/L Anion Gap 11 mmol/L BUN 58 H (7-17) mg/dL Creatinine 2.00 H (0.52-1.04) mg/dL Est GFR (CKD-EPI)AfAm 31 (>60 ml/min/1.73 sqM) Est GFR (CKD-EPI)NonAf 27 (>60 ml/min/1.73 sqM) Glucose 604 H* (74-99) mg/dL Plasma Lactic Acid [place] 1.5 (0.7-2.0) mmol/L Calcium 9.0 (8.4-10.2) mg/dL Magnesium 1.8 (1.6-2.3) mg/dL Total Bilirubin 0.8 (0.2-1.3) mg/dL AST 11 L (14-36) U/L ALT 8 (4-34) U/L Alkaline Phosphatase 191 H (38-126) U/L Troponin I <0.012 (0.000-0.034) ng/mL NT-Pro-B Natriuret Pep 1900 pg/mL Total Protein 6.8 (6.3-8.2) g/dL Albumin 3.6 (3.5-5.0) g/dL Urine Color Urine Appearance (Clear) Urine pH (5.0-8.0) Ur Specific [place] (1.001-1.035) Urine Protein (Negative) Urine Glucose (UA) (Negative) Urine Ketones (Negative) Urine Blood (Negative) Urine Nitrite (Negative) Urine Bilirubin (Negative) Urine Urobilinogen (<2.0) mg/dL Ur Leukocyte Esterase (Negative) Urine RBC (0-5) /hpf Urine WBC (0-5) /hpf Urine Bacteria (None) /hpf Acetone, Qual Negative (Negative) Blood Type Blood Type Recheck Bld Type Recheck Status Antibody Screen Spec Expiration Date 09/27/23 Range/Units 08:43 WBC (3.8-10.6) k/uL RBC (3.80-5.40) m/uL Hgb (11.4-16.0) gm/dL Hct (34.0-46.0) % MCV (80.0-100.0) fL MCH (25.0-35.0) pg MCHC (31.0-37.0) g/dL RDW (11.5-15.5) % Plt Count (150-450) k/uL MPV Neutrophils % % Lymphocytes % % Monocytes % % Eosinophils % % Basophils % % Neutrophils # (1.3-7.7) k/uL Lymphocytes # (1.0-4.8) k/uL Monocytes # (0-1.0) k/uL Eosinophils # (0-0.7) k/uL Basophils # (0-0.2) k/uL PT (10.0-12.5) sec INR (<1.2) APTT (22.0-30.0) sec Sodium (137-145) mmol/L Potassium (3.5-5.1) mmol/L Chloride (98-107) mmol/L Carbon Dioxide (22-30) mmol/L Anion Gap mmol/L BUN (7-17) mg/dL Creatinine (0.52-1.04) mg/dL Est GFR (CKD-EPI)AfAm (>60 ml/min/1.73 sqM) Est GFR (CKD-EPI)NonAf (>60 ml/min/1.73 sqM) Glucose (74-99) mg/dL Plasma Lactic Acid [place] (0.7-2.0) mmol/L Calcium (8.4-10.2) mg/dL Magnesium (1.6-2.3) mg/dL Total Bilirubin (0.2-1.3) mg/dL AST (14-36) U/L ALT (4-34) U/L Alkaline Phosphatase (38-126) U/L Troponin I (0.000-0.034) ng/mL NT-Pro-B Natriuret Pep pg/mL Total Protein (6.3-8.2) g/dL Albumin (3.5-5.0) g/dL Urine Color Urine Appearance (Clear) Urine pH (5.0-8.0) Ur Specific [place] (1.001-1.035) Urine Protein (Negative) Urine Glucose (UA) (Negative) Urine Ketones (Negative) Urine Blood (Negative) Urine Nitrite (Negative) Urine Bilirubin (Negative) Urine Urobilinogen (<2.0) mg/dL Ur Leukocyte Esterase (Negative) Urine RBC (0-5) /hpf Urine WBC (0-5) /hpf Urine Bacteria (None) /hpf Acetone, Qual (Negative) Blood Type AB Positive Blood Type Recheck AB Pos Bld Type Recheck Status No Antibody Screen NEGATIVE Spec Expiration Date 09/30/20232342 Disposition Clinical Impression: Morbid obesity, Diarrhea, Vaginal bleeding, UTI (urinary tract infection), Leukocytosis Disposition: ADMITTED IP TO THIS [facility] Condition: Serious Is patient prescribed a controlled substance at d/c from ED?: No Time of Disposition: 10:17 Decision to Admit Reason: Admit from EC Decision Date: 09/27/23 Decision Time: 10:17
[2023-09-27] MEDS ORDERED: NALOXONE 0.4 MG/ML 1 ML VIAL IV PRN (10:17)
[2023-09-27 11:43] LABS: Glucose,Whole Blood 596 mg/dL (70-110)
[2023-09-27] MEDS: INSULIN ASPART (NovoLOG) 100 UNIT/ML VIAL SQ SCH (11:55)
[2023-09-27] MEDS: HYDROcodone/APAP 10-325MG 1 EACH TAB PO ONE (11:57)
[2023-09-27] MEDS: CEFEPIME 1 GM in SODIUM CHLORIDE 0.9% 50 ML IVPB STA (12:02)
[2023-09-27] MEDS: SODIUM CHLORIDE 0.9% 1,000 ML IV SCH (12:03)
--- NOTE | 2023-09-27 13:53 | P.HPIM ---
History of Present Illness H&P Date: 09/27/23 History of present illness; patient is a 57-year-old lady with past medical history significant for diabetes mellitus type 2, chronic kidney disease stage III, history of COPD, chronic hypoxic respiratory failure on 4 L of oxygen, history of pulm embolism October 2022, previous history of DVT with s/p IVC filter placement in November 2022, history of lupus, anxiety, morbid obesity, history of vaginal bleeding, history of gallstones presents to the emergency department for feeling not for the last few days. Patient stated that her normally takes care of of her and he was recently admitted to the hospital so there was no one to take care of her at home. Patient has not been eating and drinking much at home. Patient stated that she was also having fevers at home. There was no complaint of chest pain or shortness of breath. Patient was complaining of nausea but no vomiting. Patient has history of endometrial cancer and does get vaginal bleeding. Because of the symptoms, patient came to the ER Initial lab work done in the ER showed WBC 27.8, hemoglobin 10.2, platelet count 449, sodium 130, potassium 5, BUN 58, creatinine 2, glucose 604, AST 11, ALT 8, UA positive for leukocyte Estrace, urine WBC more than 192 Chest x-ray done in the ER showed no acute cardiopulmonary process Patient admitted to internal medicine service REVIEW OF SYSTEMS: CONSTITUTIONAL: As mentioned above HEENT: No recent visual problems or hearing problems. Denied any sore throat. CARDIOVASCULAR: No chest pain, orthopnea, PND, no palpitations, no syncope. PULMONARY: No shortness of breath, no cough, no hemoptysis. GASTROINTESTINAL: As mentioned above NEUROLOGICAL: No headaches, no weakness, no numbness. HEMATOLOGICAL: Denies any bleeding or petechiae. GENITOURINARY: As mentioned above MUSCULOSKELETAL/RHEUMATOLOGICAL: Denies any joint pain, swelling, or any muscle pain. ENDOCRINE: Denies any polyuria or polydipsia. The rest of the 14-point review of systems is negative. PHYSICAL EXAMINATION: GENERAL: The patient is alert and oriented x3, not in any acute distress. Well developed, well nourished. HEENT: Pupils are round and equally reacting to light. EOMI. No scleral icterus. No conjunctival pallor. Normocephalic, atraumatic. No pharyngeal erythema. No thyromegaly. CARDIOVASCULAR: S1 and S2 present. No murmurs, rubs, or gallops. PULMONARY: Chest is clear to auscultation, no wheezing or crackles. ABDOMEN: Soft, nontender, nondistended, normoactive bowel sounds. No palpable organomegaly. MUSCULOSKELETAL: No joint swelling or deformity. EXTREMITIES: No cyanosis, clubbing, or pedal edema. NEUROLOGICAL: Gross neurological examination did not reveal any focal deficits. SKIN: No rashes. Assessment and plan Sepsis UTI Chronic kidney disease stage IV History of pulmonary embolism S/p IVC filter in place Chronic hypoxic respiratory failure on 4 L of oxygen History of COPD not in exacerbation Disease mellitus type II Monitor vital signs Monitor CBC Monitor CMP Continue telemetry monitoring Follow-up on blood cultures follow urine culture Continue IV fluids Continue IV cefepime Monitor blood sugar levels, continue sliding scale insulin, start Levemir 10 un its twice a day Consult ID Labs and medication were reviewed.. Continue same treatment. Continue with symptomatic treatment. Resume home medication. Monitor labs and vitals. DVT and GI prophylaxis. Further recommendations as per clinical course of the patient Dictation was produced using [employer] dictation software. please excuse any grammatical, word or spelling errors. Past Medical History Past Medical History: Cancer, COPD, Diabetes Mellitus, Deep Vein Thrombosis (DVT), Hypertension, Renal Disease, Rheumatoid Arthritis (RA), Thyroid Disorder Additional Past Medical History / Comment(s): O2 @ 4L. SLE LUPUS. STAGE 3 KI DNEY DISEASE. Leukemia, GRAVES DZ , kidney stones, gout, Uterine cancer (no surgery, radiation only) History of Any Multi-Drug Resistant Organisms: Other MDRO Past Surgical History: Cholecystectomy Additional Past Surgical History / Comment(s): BILATERAL ARTHROSCOPY KNEES. D & C (MISCARRIAGES). Past Anesthesia/Blood Transfusion Reactions: No Reported Reaction Past Psychological History: Anxiety Smoking Status: Never smoker Past Alcohol Use History: None Reported Past Drug Use History: None Reported - Past Family History Mother Family Medical History: Congestive Heart Failure (CHF), Diabetes Mellitus Father Family Medical History: Congestive Heart Failure (CHF), Dialysis, Hypertension Medications and Allergies Home Medications Medication Instructions Recorded Confirmed Type Montelukast [Singulair] 10 mg PO DAILY 01/09/17 09/27/23 History allopurinoL [Zyloprim] 100 mg PO BID 01/21/22 09/27/23 History Atorvastatin [Lipitor] 10 mg PO DAILY 02/15/22 09/27/23 History Hydroxychloroquine Sulfate 200 mg PO BID 04/13/22 09/27/23 History [Plaquenil] hydrOXYzine HCL [Atarax] 25 mg PO QID 04/13/22 09/27/23 History FLUoxetine HCL [PROzac] 20 mg PO BID 10/27/22 09/27/23 History Pantoprazole [Protonix] 40 mg PO BID 10/27/22 09/27/23 History Empagliflozin [Jardiance] 10 mg PO DAILY 11/21/22 09/27/23 History Apixaban [Eliquis] 2.5 mg PO BID #60 tab 12/02/22 09/27/23 Rx Anastrozole 1 mg PO DAILY 05/13/23 09/27/23 History Metoprolol Tartrate [Lopressor] 50 mg PO BID 05/13/23 09/27/23 History gemfibroziL [Lopid] 600 mg PO BID 05/13/23 09/27/23 History Furosemide [Lasix] 80 mg PO DAILY 09/27/23 09/27/23 History INSULIN ASPART (NovoLOG) [NovoLOG See Protocol SQ TID 09/27/23 09/27/23 History (formulary)] Allergies Allergy/AdvReac Type Severity Reaction Status Date / Time ciprofloxacin [From Cipro] Allergy Swelling Verified 09/27/23 12:37 diphenhydramine Allergy Swelling Verified 09/27/23 12:37 [From Benadryl] Influenza Virus Vaccines Allergy Anaphylaxis Verified 09/27/23 12:37 iodine Allergy Swelling Verified 09/27/23 12:37 propoxyphene Allergy Swelling Verified 09/27/23 12:37 [From Darvocet-N] red dye Allergy Swelling Verified 09/27/23 12:37 Sulfa (Sulfonamide Allergy Anaphylaxis, Verified 09/27/23 12:37 Antibiotics) heart rate up sulfacetamide Allergy Swelling Verified 09/27/23 12:37 [From Sulfamide] yellow dye Allergy Swelling Verified 09/27/23 12:37 Physical Exam Vitals: Vital Signs Temp Pulse Resp BP Pulse Ox 09/27/23 12:28 97.6 F 68 26 H 121/65 91 L 09/27/23 12:00 125 H 22 110/68 98 09/27/23 11:37 99.6 F 105 H 16 116/60 100 09/27/23 10:25 100.6 F H 113 H 18 117/70 100 09/27/23 09:15 101.5 F H 108 H 20 123/63 99 09/27/23 07:56 98.2 F 113 H 20 122/76 100 Intake and Output 09/26/23 09/27/23 09/27/23 22:59 06:59 14:59 Other: Weight 124.738 kg Results CBC & Chem 7: 09/27/23 08:43 09/27/23 08:43 Labs: Abnormal Lab Results - Last 24 Hours (Table) 09/27/23 09/27/23 09/27/23 Range/Units 08:43 08:43 08:43 WBC 27.8 H (3.8-10.6) k/uL RBC 3.59 L (3.80-5.40) m/uL Hgb 10.2 L (11.4-16.0) gm/dL Hct 32.5 L (34.0-46.0) % Neutrophils # 24.4 H (1.3-7.7) k/uL Monocytes # 1.1 H (0-1.0) k/uL Sodium 130 L (137-145) mmol/L Carbon Dioxide 20 L (22-30) mmol/L BUN 58 H (7-17) mg/dL Creatinine 2.00 H (0.52-1.04) mg/dL Glucose 604 H* (74-99) mg/dL POC Glucose (mg/dL) (70-110) mg/dL AST 11 L (14-36) U/L Alkaline Phosphatase 191 H (38-126) U/L Urine Appearance Cloudy H (Clear) Urine Protein 1+ H (Negative) Urine Glucose (UA) 4+ H (Negative) Urine Blood Large H (Negative) Ur Leukocyte Esterase Large H (Negative) Urine RBC >182 H (0-5) /hpf Urine WBC >182 H (0-5) /hpf Urine Bacteria Many H (None) /hpf 09/27/23 Range/Units 11:41 WBC (3.8-10.6) k/uL RBC (3.80-5.40) m/uL Hgb (11.4-16.0) gm/dL Hct (34.0-46.0) % Neutrophils # (1.3-7.7) k/uL Monocytes # (0-1.0) k/uL Sodium (137-145) mmol/L Carbon Dioxide (22-30) mmol/L BUN (7-17) mg/dL Creatinine (0.52-1.04) mg/dL Glucose (74-99) mg/dL POC Glucose (mg/dL) 596 H* (70-110) mg/dL AST (14-36) U/L Alkaline Phosphatase (38-126) U/L Urine Appearance (Clear) Urine Protein (Negative) Urine Glucose (UA) (Negative) Urine Blood (Negative) Ur Leukocyte Esterase (Negative) Urine RBC (0-5) /hpf Urine WBC (0-5) /hpf Urine Bacteria (None) /hpf
[2023-09-27] MEDS: APIXABAN 2.5 MG TABLET PO SCH (14:24)
[2023-09-27] MEDS: FLUoxetine HCL 20 MG CAP PO SCH (14:26)
[2023-09-27] MEDS: hydrOXYzine HCL 25 MG TAB PO SCH (14:26)
[2023-09-27] MEDS: ATORVASTATIN 10 MG TAB PO SCH (14:26)
[2023-09-27] MEDS: PANTOPRAZOLE 40 MG TABLET PO SCH (14:26)
[2023-09-27] MEDS: ANASTROZOLE 1 MG TAB PO SCH (14:26)
[2023-09-27] MEDS: DAPAGLIFLOZIN PROPANEDIOL 5 MG TABLET PO SCH (14:26)
[2023-09-27] MEDS: HYDROXYCHLOROQUINE SULFATE 200 MG TAB PO SCH (14:27)
[2023-09-27] MEDS: FENOFIBRATE 160 MG TAB PO SCH (14:27)
[2023-09-27 18:12] LABS: Glucose,Whole Blood 509 mg/dL (70-110)
[2023-09-27 19:34] LABS: Glucose,Whole Blood 461 mg/dL (70-110)
[2023-09-27 20:34] LABS: Glucose,Whole Blood 426 mg/dL (70-110)
[2023-09-27] MEDS ORDERED: INSULIN DETEMIR (LEVEMIR) 100 UNIT/ML SYR SQ SCH (21:00)
[2023-09-27] MEDS: INSULIN REGULAR 100 UNIT in SODIUM CHLORIDE 0.9% 100 ML IV SCH (21:27)
[2023-09-27] MEDS: allopurinoL 100 MG TAB PO SCH (21:28)
[2023-09-27] MEDS: METOPROLOL TARTRATE 50 MG TAB PO SCH (21:30)
[2023-09-27] MEDS: ACETAMINOPHEN TAB 325 MG TAB PO PRN (21:31)
[2023-09-27 22:41] LABS: Glucose,Whole Blood 332 mg/dL (70-110)
[2023-09-27 23:32] LABS: Glucose,Whole Blood 260 mg/dL (70-110)
[2023-09-28] MEDS: FAMOTIDINE 20 MG/2 ML VIAL IV STA (00:19)
[2023-09-28] MEDS: ONDANSETRON 4 MG/2 ML VIAL IVP STA (00:19)
[2023-09-28 00:46] LABS: Glucose,Whole Blood 177 mg/dL (70-110)
[2023-09-28 01:29] LABS: Glucose,Whole Blood 152 mg/dL (70-110)
[2023-09-28 02:39] LABS: Glucose,Whole Blood 97 mg/dL (70-110)
[2023-09-28 03:34] LABS: Glucose,Whole Blood 94 mg/dL (70-110)
[2023-09-28 03:40] LABS: Basophils # (A) 0.1 k/uL (0-0.2); Basophils % (A) 0 %; Eosinophils # (A) 0.3 k/uL (0-0.7); Eosinophils % (A) 1 %; Lymphocytes # (A) 1.7 k/uL (1.0-4.8); Lymphocytes % (A) 6 %; MCH 27.8 pg (25.0-35.0); MCHC 31.4 g/dL (31.0-37.0); MCV 88.8 fL (80.0-100.0); Mean Platelet Volume 8.3; Monocytes # (A) 1.3 k/uL (0-1.0); Monocytes % (A) 5 %; Neutrophils # (A) 24.9 k/uL (1.3-7.7); Neutrophils % (A) 87 %; Platelet Count 419 k/uL (150-450); RBC 3.61 m/uL (3.80-5.40); RDW 13.3 % (11.5-15.5); WBC 28.5 k/uL (3.8-10.6)
[2023-09-28 04:03] LABS: African American GFR (CKD) 23 (>60 ml/min/1.73 sqM); Anion Gap 13 mmol/L; Blood Urea Nitrogen 64 mg/dL (7-17); Calcium 9.1 mg/dL (8.4-10.2); Carbon Dioxide 17 mmol/L (22-30); Chloride 105 mmol/L (98-107); Glucose 87 mg/dL (74-99); Non-African American GFR(CKD) 20 (>60 ml/min/1.73 sqM); Potassium 4.3 mmol/L (3.5-5.1); Sodium 135 mmol/L (137-145)
[2023-09-28 04:45] LABS: Glucose,Whole Blood 127 mg/dL (70-110)
[2023-09-28 05:31] LABS: Glucose,Whole Blood 139 mg/dL (70-110)
[2023-09-28 06:27] LABS: Glucose,Whole Blood 146 mg/dL (70-110)
[2023-09-28 07:49] LABS: Glucose,Whole Blood 162 mg/dL (70-110)
--- NOTE | 2023-09-28 09:00 | P.CONS ---
History of Present Illness - Reason for Consult Consult date: 09/27/23 Acute UTI with history of Klebsiella UTI Requesting physician: Amelie Bryan - Chief Complaint Weakness x few days - History of Present Illness Patient is a 58-year-old female with a past medical history significant for diabetes mellitus COPD hypertension history of uterine cancer for the patient has received radiation on the and rheumatoid arthritis patient h as been sent to the for evaluation of feeling weak that has been progressively getting worse for the last 5 days patient has not been eating or drinking and did have a diarrhea body aches and fever patient also complaining of vaginal bleeding due to her history of endometrial cancer denies any chest pain shortness of breath or cough with the symptoms the patient was evaluated on presentation to the hospital patient did have a temperature of 101.5 F patient was tachycardic but not hypotensive or hypoxic and no need for supplemental oxygen patient did have a white count of 27.8 BUN/creatinine has been mildly elevated glucose was 604 liver isms are normal urine has been positive serum acetone was negative patient did have a chest x-ray no acute cardiopulmonary disease process patient did receive a dose of cefepime admitted to hospital infectious was consulted for further management of antibiotic therapy Review of Systems Positive point and negatives has been mentioned in the HPI, complete review of systems was performed and all other systems are negative Past Medical History Past Medical History: Cancer, COPD, Diabetes Mellitus, Deep Vein Thrombosis (DVT), Hypertension, Renal Disease, Rheumatoid Arthritis (RA), Thyroid Disorder Additional Past Medical History / Comment(s): O2 @ 4L. SLE LUPUS. STAGE 3 KIDNEY DISEASE. Leukemia, GRAVES DZ , kidney stones, gout, Uterine cancer (no surgery, radiation only) History of Any Multi-Drug Resistant Organisms: Other MDRO Past Surgical History: Cholecystectomy Additional Past Surgical History / Comment(s): BILATERAL ARTHROSCOPY KNEES. D & C (MISCARRIAGES). Past Anesthesia/Blood Transfusion Reactions: No Reported Reaction Past Psychological History: Anxiety Smoking Status: Never smoker Past Alcohol Use History: None Reported Past Drug Use History: None Reported - Past Family History Mother Family Medical History: Congestive Heart Failure (CHF), Diabetes Mellitus Father Family Medical History: Congestive Heart Failure (CHF), Dialysis, Hypertension Medications and Allergies Home Medications Medication Instructions Recorded Confirmed Type Montelukast [Singulair] 10 mg PO DAILY 01/09/17 09/27/23 History allopurinoL [Zyloprim] 100 mg PO BID 01/21/22 09/27/23 History Atorvastatin [Lipitor] 10 mg PO DAILY 02/15/22 09/27/23 History Hydroxychloroquine Sulfate 200 mg PO BID 04/13/22 09/27/23 History [Plaquenil] hydrOXYzine HCL [Atarax] 25 mg PO QID 04/13/22 09/27/23 History FLUoxetine HCL [PROzac] 20 mg PO BID 10/27/22 09/27/23 History Pantoprazole [Protonix] 40 mg PO BID 10/27/22 09/27/23 History Apixaban [Eliquis] 2.5 mg PO BID #60 tab 12/02/22 09/27/23 Rx Anastrozole 1 mg PO DAILY 05/13/23 09/27/23 History Metoprolol Tartrate [Lopressor] 50 mg PO BID 05/13/23 09/27/23 History gemfibroziL [Lopid] 600 mg PO BID 05/13/23 09/27/23 History ceFAZolin [Kefzol] 2 gm IVP Q12HR #42 each 10/08/23 Rx Acetaminophen Tab [Tylenol] 650 mg PO Q6HR PRN tab 10/09/23 Rx Docusate [Colace] 100 mg PO BID cap 10/09/23 Rx Furosemide [Lasix] 40 mg PO Q48H #0 10/09/23 09/27/23 Rx HYDROcodone/APAP 5-325MG [[place] 1 each PO Q4HR PRN #6 tab 10/09/23 Rx 5-325] INSULIN ASPART (NovoLOG) [NovoLOG 0 unit SQ ACHS each 10/09/23 Rx (formulary)] INSULIN ASPART (NovoLOG) [NovoLOG 8 unit SQ AC-TID each 10/09/23 Rx (formulary)] Insulin Detemir (Levemir) [Levemir] 15 unit SQ DAILY@0700 each 10/09/23 Rx Insulin Detemir (Levemir) [Levemir] 15 unit SQ HS each 10/09/23 Rx Nystatin 100,000 Unit/gm Powd 1 applic TOPICAL TID each 10/09/23 Rx [Mycostatin Powder] Sennosides [Senokot] 8.6 mg PO BID tab 10/09/23 Rx Allergies Allergy/AdvReac Type Severity Reaction Status Date / Time ciprofloxacin [From Cipro] Allergy Swelling Verified 09/27/23 12:37 diphenhydramine Allergy Swelling Verified 09/27/23 12:37 [From Benadryl] Influenza Virus Vaccines Allergy Anaphylaxis Verified 09/27/23 12:37 iodine Allergy Swelling Verified 09/27/23 12:37 propoxyphene Allergy Swelling Verified 09/27/23 12:37 [From Darvocet-N] red dye Allergy Swelling Verified 09/27/23 12:37 Sulfa (Sulfonamide Allergy Anaphylaxis, Verified 09/27/23 12:37 Antibiotics) heart rate up sulfacetamide Allergy Swelling Verified 09/27/23 12:37 [From Sulfamide] yellow dye Allergy Swelling Verified 09/27/23 12:37 Physical Exam Vitals: Vital Signs Temp Pulse Resp BP Pulse Ox 09/27/23 11:37 99.6 F 105 H 16 116/60 100 09/27/23 10:25 100.6 F H 113 H 18 117/70 100 09/27/23 09:15 101.5 F H 108 H 20 123/63 99 09/27/23 07:56 98.2 F 113 H 20 122/76 100 Intake and Output 09/26/23 09/27/23 09/27/23 22:59 06:59 14:59 Other: Weight 124.738 kg GENERAL DESCRIPTION: Middle-aged female lying in bed, no distress. No tachypnea or accessory muscle of respiration use. HEENT: Shows Pallor , no scleral icterus. Oral mucous membrane is dry. No pharyngeal erythema or thrush NECK: Trachea central, no thyromegaly. LUNGS: Unlabored breathing. Clear to auscultation anteriorly. No wheeze or crackle. HEART: S1, S2, regular rate and rhythm. No loud murmur ABDOMEN: Soft, no tenderness , guarding or rigidity, no organomegaly EXTREMITIES: No edema of feet. SKIN: No rash, no masses palpable. NEUROLOGICAL: The patient is awake, alert, oriented x3, mood and affect normal. Results CBC & Chem 7: 10/09/23 07:40 10/09/23 07:40 Labs: Abnormal Lab Results - Last 24 Hours (Table) 09/27/23 09/27/23 09/27/23 Range/Units 08:43 08:43 08:43 WBC 27.8 H (3.8-10.6) k/uL RBC 3.59 L (3.80-5.40) m/uL Hgb 10.2 L (11.4-16.0) gm/dL Hct 32.5 L (34.0-46.0) % Neutrophils # 24.4 H (1.3-7.7) k/uL Monocytes # 1.1 H (0-1.0) k/uL Sodium 130 L (137-145) mmol/L Carbon Dioxide 20 L (22-30) mmol/L BUN 58 H (7-17) mg/dL Creatinine 2.00 H (0.52-1.04) mg/dL Glucose 604 H* (74-99) mg/dL POC Glucose (mg/dL) (70-110) mg/dL AST 11 L (14-36) U/L Alkaline Phosphatase 191 H (38-126) U/L Urine Appearance Cloudy H (Clear) Urine Protein 1+ H (Negative) Urine Glucose (UA) 4+ H (Negative) Urine Blood Large H (Negative) Ur Leukocyte Esterase Large H (Negative) Urine RBC >182 H (0-5) /hpf Urine WBC >182 H (0-5) /hpf Urine Bacteria Many H (None) /hpf 09/27/23 Range/Units 11:41 WBC (3.8-10.6) k/uL RBC (3.80-5.40) m/uL Hgb (11.4-16.0) gm/dL Hct (34.0-46.0) % Neutrophils # (1.3-7.7) k/uL Monocytes # (0-1.0) k/uL Sodium (137-145) mmol/L Carbon Dioxide (22-30) mmol/L BUN (7-17) mg/dL Creatinine (0.52-1.04) mg/dL Glucose (74-99) mg/dL POC Glucose (mg/dL) 596 H* (70-110) mg/dL AST (14-36) U/L Alkaline Phosphatase (38-126) U/L Urine Appearance (Clear) Urine Protein (Negative) Urine Glucose (UA) (Negative) Urine Blood (Negative) Ur Leukocyte Esterase (Negative) Urine RBC (0-5) /hpf Urine WBC (0-5) /hpf Urine Bacteria (None) /hpf Assessment and Plan (1) Sepsis Current Visit: Yes Status: Acute Code(s): A41.9 - SEPSIS, UNSPECIFIED O RGANISM SNOMED Code(s): 58943219 (2) Allergy to multiple antibiotics Current Visit: Yes Status: Acute Code(s): Z88.1 - ALLERGY STATUS TO OTHER ANTIBIOTIC AGENTS SNOMED Code(s): 028152630 (3) UTI (urinary tract infection) Current Visit: Yes Status: Acute Priority: Medium Code(s): N39.0 - URINARY TRACT INFECTION, SITE NOT SPECIFIED SNOMED Code(s): 27932841 Plan: 1patient presented hospital with sepsis in this patient who did have a fever tachycardia elevated white count did have significantly positive UA likely source of the sepsis patient chest x-ray was negative for any acute infiltrate and no tenderness on abdominal examination to be suspicious for abdominal source. 2patient with multiple antibiotic ALLERGIES that would limit the number of antibiotic safe to use. 3renal insufficiency and high risk of nephrotoxicity. 4we will advise cefepime 2 g every 12 hours while waiting for the culture to finalize. We will follow on clinical condition and cultures to further adjust medication if needed Thank you for this consultation we will follow the patient along with you Dictation was produced using [employer] dictation software. please excuse any grammatical, word or spelling errors. . Time with Patient: Greater than 30
[2023-09-28] MEDS: MONTELUKAST 10 MG TAB PO SCH (09:17)
[2023-09-28 09:25] LABS: Glucose,Whole Blood 156 mg/dL (70-110)
[2023-09-28] MEDS ORDERED: DEXTROSE 50% SYRINGE 50 ML IVP PRN ×2 (10:05)
--- NOTE | 2023-09-28 10:05 | P.PN ---
Subjective Progress Note Date: 09/28/23 patient is a 57-year-old lady with past medical history significant for diabetes mellitus type 2, chronic kidney disease stage III, history of COPD, chronic hypoxic respiratory failure on 4 L of oxygen, history of pulm embolism October 2022, previous history of DVT with s/p IVC filter placement in November 2022, history of lupus, anxiety, morbid obesity, history of vaginal bleeding, history of gallstones presents to the emergency department for feeling not for the last few days. Patient stated that her normally takes care of of her and he was recently admitted to the hospital so there was no one to take care of her at home. Patient has not been eating and drinking much at home. Patient stated that she was also having fevers at home. There was no complaint of chest pain or shortness of breath. Patient was complaining of nausea but no vomiting. Patient has history of endometrial cancer and does get vaginal bleeding. Because of the symptoms, patient came to the ER Initial lab work done in the ER showed WBC 27.8, hemoglobin 10.2, platelet count 449, sodium 130, potassium 5, BUN 58, creatinine 2, glucose 604, AST 11, ALT 8, UA positive for leukocyte Estrace, urine WBC more than 192 Chest x-ray done in the ER showed no acute cardiopulmonary process Patient admitted to internal medicine service 09/27. Patient seen and examined. Patient was started on insulin drip overnight, currently blood sugars are better controlled. Patient will be switched back to subcu insulin. Complaining abdominal pain. No nausea or vomiting REVIEW OF SYSTEMS: CONSTITUTIONAL: No fever, no malaise,. CARDIOVASCULAR: No chest pain, no palpitations, no syncope. PULMONARY: No shortness of breath, no cough, GASTROINTESTINAL: As mentioned above NEUROLOGICAL: No headaches, no weakness, PHYSICAL EXAMINATION: GENERAL: The patient is alert and oriented x3, not in any acute distress. Ill looking HEENT: Pupils are round and equally reacting to light. EOMI. No scleral icterus. No conjunctival pallor. Normocephalic, atraumatic. No pharyngeal erythema. No thyromegaly. CARDIOVASCULAR: S1 and S2 present. No murmurs, rubs, or gallops. PULMONARY: Chest is clear to auscultation, no wheezing or crackles. ABDOMEN: Soft, nontender, nondistended, normoactive bowel sounds. No palpable organomegaly. MUSCULOSKELETAL: No joint swelling or deformity. EXTREMITIES: No cyanosis, clubbing, or pedal edema. NEUROLOGICAL: Gross neurological examination did not reveal any focal deficits. SKIN: No rashes. Assessment and plan Sepsis UTI Hyperglycemia Chronic kidney disease stage IV History of pulmonary embolism S/p IVC filter in place Chronic hypoxic respiratory failure on 4 L of oxygen History of COPD not in exacerbation Disease mellitus type II Monitor vital signs Monitor CBC Monitor CMP Continue telemetry monitoring Follow-up on blood cultures follow urine culture DC fluids Continue IV cefepime Continue Car [place] Monitor blood sugar levels, DC insulin drip, switch patient to Levemir 10 units twice a day and subcu insulin sliding scale ID following Labs and medication were reviewed.. Continue same treatment. Continue with symptomatic treatment. Resume home medication. Monitor labs and vitals. DVT and GI prophylaxis. Further recommendations as per clinical course of the patient Dictation was produced using [employer] dictation software. please excuse any grammatical, word or spelling errors. Objective - Vital Signs Vital signs: Vital Signs Temp 98.3 F 09/28/23 07:52 Pulse 98 09/28/23 07:52 Resp 18 09/28/23 07:52 BP 101/59 09/28/23 07:52 Pulse Ox 96 09/28/23 07:52 FiO2 Intake & Output 09/27/23 09/28/23 09/28/23 18:59 06:59 18:59 Intake Total 71.539 0 Balance 71.539 0 Weight 124.738 kg Intake: Intake, IV Titration 71.539 0 Amount Insulin Regular 100 unit 71.539 0 In Sodium Chloride 0.9% 100 ml @ 0.1 UNITS/KG/HR 12.599 mls/hr IV .Q8H1M [facility] Rx#:[id number] - Labs CBC & Chem 7: 09/28/23 03:22 09/28/23 03:22 Labs: Abnormal Lab Results - Last 24 Hours (Table) 09/27/23 09/27/23 09/27/23 Range/Units 11:41 18:11 19:32 WBC (3.8-10.6) k/uL RBC (3.80-5.40) m/uL Hgb (11.4-16.0) gm/dL Hct (34.0-46.0) % Neutrophils # (1.3-7.7) k/uL Monocytes # (0-1.0) k/uL Sodium (137-145) mmol/L Carbon Dioxide (22-30) mmol/L BUN (7-17) mg/dL Creatinine (0.52-1.04) mg/dL POC Glucose (mg/dL) 596 H* 509 H* 461 H (70-110) mg/dL 09/27/23 09/27/23 09/27/23 Range/Units 20:33 22:39 23:29 WBC (3.8-10.6) k/uL RBC (3.80-5.40) m/uL Hgb (11.4-16.0) gm/dL Hct (34.0-46.0) % Neutrophils # (1.3-7.7) k/uL Monocytes # (0-1.0) k/uL Sodium (137-145) mmol/L Carbon Dioxide (22-30) mmol/L BUN (7-17) mg/dL Creatinine (0.52-1.04) mg/dL POC Glucose (mg/dL) 426 H 332 H 260 H (70-110) mg/dL 09/28/23 09/28/23 09/28/23 Range/Units 00:44 01:29 03:22 WBC 28.5 H (3.8-10.6) k/uL RBC 3.61 L (3.80-5.40) m/uL Hgb 10.0 L (11.4-16.0) gm/dL Hct 32.0 L (34.0-46.0) % Neutrophils # 24.9 H (1.3-7.7) k/uL Monocytes # 1.3 H (0-1.0) k/uL Sodium (137-145) mmol/L Carbon Dioxide (22-30) mmol/L BUN (7-17) mg/dL Creatinine (0.52-1.04) mg/dL POC Glucose (mg/dL) 177 H 152 H (70-110) mg/dL 09/28/23 09/28/23 09/28/23 Range/Units 03:22 04:44 05:30 WBC (3.8-10.6) k/uL RBC (3.80-5.40) m/uL Hgb (11.4-16.0) gm/dL Hct (34.0-46.0) % Neutrophils # (1.3-7.7) k/uL Monocytes # (0-1.0) k/uL Sodium 135 L (137-145) mmol/L Carbon Dioxide 17 L (22-30) mmol/L BUN 64 H (7-17) mg/dL Creatinine 2.54 H (0.52-1.04) mg/dL POC Glucose (mg/dL) 127 H 139 H (70-110) mg/dL 09/28/23 09/28/23 09/28/23 Range/Units 06:26 07:48 09:24 WBC (3.8-10.6) k/uL RBC (3.80-5.40) m/uL Hgb (11.4-16.0) gm/dL Hct (34.0-46.0) % Neutrophils # (1.3-7.7) k/uL Monocytes # (0-1.0) k/uL Sodium (137-145) mmol/L Carbon Dioxide (22-30) mmol/L BUN (7-17) mg/dL Creatinine (0.52-1.04) mg/dL POC Glucose (mg/dL) 146 H 162 H 156 H (70-110) mg/dL
[2023-09-28] MEDS: CEFEPIME 2 GM in SODIUM CHLORIDE 0.9% 100 ML IVPB ONE (10:25)
[2023-09-28] MEDS: INSULIN DETEMIR (LEVEMIR) 100 UNIT/ML SYR SQ SCH (10:32)
[2023-09-28 11:58] LABS: Glucose,Whole Blood 251 mg/dL (70-110)
[2023-09-28] MEDS: INSULIN ASPART (NovoLOG) 100 UNIT/ML VIAL SQ SCH (12:14)
--- NOTE | 2023-09-28 14:27 | P.PN ---
Subjective Progress Note Date: 09/28/23 Principal diagnosis: Reason for follow-up is leukocytosis and UTI Patient is a 58-year-old female with a past medical history significant for diabetes mellitus COPD hypertension history of uterine cancer for the patient has received radiation, presenting to the hospital with weakness generalized bodyaches unable to take care of herself did have a fever positive UA concerning for symptomatic urinary tract infection. On today's evaluation that is 09/28/2023,the patient did have resolution of her fever and is afebrile this morning, patient is on 4 L nasal cannula supplemental oxygen however complaining of some shortness of breath, no significant cough or sputum production some lower abdominal discomfort no diarrhea. Patient white count is 28.5 today creatinine is 2.54 cultures currently pending Objective - Vital Signs Vital signs: Vital Signs Temp 98.3 F 09/28/23 07:52 Pulse 98 09/28/23 07:52 Resp 18 09/28/23 07:52 BP 101/59 09/28/23 07:52 Pulse Ox 96 09/28/23 07:52 FiO2 Intake & Output 09/27/23 09/28/23 09/28/23 18:59 06:59 18:59 Intake Total 71.539 12.472 Balance 71.539 12.472 Weight 124.738 kg Intake: Intake, IV Titration 71.539 12.472 Amount Insulin Regular 100 unit 71.539 12.472 In Sodium Chloride 0.9% 100 ml @ 0.1 UNITS/KG/HR 12.599 mls/hr IV .Q8H1M [facility] Rx#:[id number] - Exam GENERAL DESCRIPTION: Middle-aged female lying in bed in no distress RESPIRATORY SYSTEM: Unlabored breathing , decreased breath sounds at bases HEART: S1 S2 regular rate and rhythm , ABDOMEN: Soft , no tenderness EXTREMITIES: No edema feet - Labs CBC & Chem 7: 09/28/23 03:22 09/28/23 03:22 Labs: Abnormal Lab Results - Last 24 Hours (Table) 09/27/23 09/27/23 09/27/23 Range/Units 11:41 18:11 19:32 WBC (3.8-10.6) k/uL RBC (3.80-5.40) m/uL Hgb (11.4-16.0) gm/dL Hct (34.0-46.0) % Neutrophils # (1.3-7.7) k/uL Monocytes # (0-1.0) k/uL Sodium (137-145) mmol/L Carbon Dioxide (22-30) mmol/L BUN (7-17) mg/dL Creatinine (0.52-1.04) mg/dL POC Glucose (mg/dL) 596 H* 509 H* 461 H (70-110) mg/dL Hemoglobin A1c (<=6.0) % 09/27/23 09/27/23 09/27/23 Range/Units 20:33 22:39 23:29 WBC (3.8-10.6) k/uL RBC (3.80-5.40) m/uL Hgb (11.4-16.0) gm/dL Hct (34.0-46.0) % Neutrophils # (1.3-7.7) k/uL Monocytes # (0-1.0) k/uL Sodium (137-145) mmol/L Carbon Dioxide (22-30) mmol/L BUN (7-17) mg/dL Creatinine (0.52-1.04) mg/dL POC Glucose (mg/dL) 426 H 332 H 260 H (70-110) mg/dL Hemoglobin A1c (<=6.0) % 09/28/23 09/28/23 09/28/23 Range/Units 00:44 01:29 03:22 WBC (3.8-10.6) k/uL RBC (3.80-5.40) m/uL Hgb (11.4-16.0) gm/dL Hct (34.0-46.0) % Neutrophils # (1.3-7.7) k/uL Monocytes # (0-1.0) k/uL Sodium (137-145) mmol/L Carbon Dioxide (22-30) mmol/L BUN (7-17) mg/dL Creatinine (0.52-1.04) mg/dL POC Glucose (mg/dL) 177 H 152 H (70-110) mg/dL Hemoglobin A1c 12.8 H (<=6.0) % 09/28/23 09/28/23 09/28/23 Range/Units 03:22 03:22 04:44 WBC 28.5 H (3.8-10.6) k/uL RBC 3.61 L (3.80-5.40) m/uL Hgb 10.0 L (11.4-16.0) gm/dL Hct 32.0 L (34.0-46.0) % Neutrophils # 24.9 H (1.3-7.7) k/uL Monocytes # 1.3 H (0-1.0) k/uL Sodium 135 L (137-145) mmol/L Carbon Dioxide 17 L (22-30) mmol/L BUN 64 H (7-17) mg/dL Creatinine 2.54 H (0.52-1.04) mg/dL POC Glucose (mg/dL) 127 H (70-110) mg/dL Hemoglobin A1c (<=6.0) % 09/28/23 09/28/23 09/28/23 Range/Units 05:30 06:26 07:48 WBC (3.8-10.6) k/uL RBC (3.80-5.40) m/uL Hgb (11.4-16.0) gm/dL Hct (34.0-46.0) % Neutrophils # (1.3-7.7) k/uL Monocytes # (0-1.0) k/uL Sodium (137-145) mmol/L Carbon Dioxide (22-30) mmol/L BUN (7-17) mg/dL Creatinine (0.52-1.04) mg/dL POC Glucose (mg/dL) 139 H 146 H 162 H (70-110) mg/dL Hemoglobin A1c (<=6.0) % 09/28/23 Range/Units 09:24 WBC (3.8-10.6) k/uL RBC (3.80-5.40) m/uL Hgb (11.4-16.0) gm/dL Hct (34.0-46.0) % Neutrophils # (1.3-7.7) k/uL Monocytes # (0-1.0) k/uL Sodium (137-145) mmol/L Carbon Dioxide (22-30) mmol/L BUN (7-17) mg/dL Creatinine (0.52-1.04) mg/dL POC Glucose (mg/dL) 156 H (70-110) mg/dL Hemoglobin A1c (<=6.0) % Assessment and Plan (1) Sepsis Current Visit: Yes Status: Acute Code(s): A41.9 - SEPSIS, UNSPECIFIED ORGANISM SNOMED Code(s): 40678732 (2) Allergy to multiple antibiotics Current Visit: Yes Status: Acute Code(s): Z88.1 - ALLERGY STATUS TO OTHER ANTIBIOTIC AGENTS SNOMED Code(s): 665087880 (3) UTI (urinary tract infection) Current Visit: Yes Status: Acute Code(s): N39.0 - URINARY TRACT INFECTION, SITE NOT SPECIFIED SNOMED Code(s): 69636582 Plan: 1patient presented hospital with sepsis in this patient who did have a fever tachycardia elevated white count did have significantly positive UA likely source of the sepsis patient chest x-ray was negative for any acute infiltrate and no tenderness on abdominal examination to be suspicious for abdominal source. 2patient with multiple antibiotic ALLERGIES that would limit the number of antibiotic safe to use. 3renal insufficiency and high risk of nephrotoxicity. 4patient to continue with cefepime 2 g every 12 hours while waiting for the culture to finalize and monitor clinical course closely Dictation was produced using [employer] dictation software. please excuse any grammatical, word or spelling errors. . Time with Patient: Less than 30
[2023-09-28 17:01] LABS: Glucose,Whole Blood 231 mg/dL (70-110)
[2023-09-28] MEDS: MORPHINE SULFATE 2 MG/ML SYRINGE IVP STA (19:31)
[2023-09-28 20:10] LABS: Glucose,Whole Blood 213 mg/dL (70-110)
[2023-09-28] MEDS: ONDANSETRON 4 MG/2 ML VIAL IVP PRN (22:35)
[2023-09-28] MEDS: CEFEPIME 1 GM in SODIUM CHLORIDE 0.9% 50 ML IVPB SCH (23:46)
[2023-09-29 00:05] LABS: Glucose,Whole Blood 218 mg/dL (70-110)
[2023-09-29] MEDS: INSULIN DETEMIR (LEVEMIR) 100 UNIT/ML SYR SQ SCH (00:10)
[2023-09-29 07:42] LABS: Glucose,Whole Blood 161 mg/dL (70-110)
[2023-09-29 08:23] LABS: Basophils # (A) 0.1 k/uL (0-0.2); Basophils % (A) 0 %; Eosinophils # (A) 0.4 k/uL (0-0.7); Eosinophils % (A) 1 %; HCT 28.1 % (34.0-46.0); HGB 8.7 gm/dL (11.4-16.0); Hypochromasia Slight; Lymphocytes # (A) 1.5 k/uL (1.0-4.8); Lymphocytes % (A) 5 %; MCH 28.2 pg (25.0-35.0); MCHC 31.2 g/dL (31.0-37.0); MCV 90.5 fL (80.0-100.0); Monocytes # (A) 1.5 k/uL (0-1.0); Monocytes % (A) 5 %; Neutrophils # (A) 24.7 k/uL (1.3-7.7); Neutrophils % (A) 87 %; Platelet Count 428 k/uL (150-450); RDW 13.5 % (11.5-15.5); WBC 28.5 k/uL (3.8-10.6)
[2023-09-29 08:40] LABS: ALT 17 U/L (4-34); AST 29 U/L (14-36); African American GFR (CKD) 24 (>60 ml/min/1.73 sqM); Albumin/Globulin Ratio 0.9; Alkaline Phosphatase 188 U/L (38-126); Anion Gap 12 mmol/L; Blood Urea Nitrogen 63 mg/dL (7-17); Calcium 9.1 mg/dL (8.4-10.2); Carbon Dioxide 14 mmol/L (22-30); Chloride 109 mmol/L (98-107); Globulin 3.2 g/dL; Glucose 144 mg/dL (74-99); Non-African American GFR(CKD) 21 (>60 ml/min/1.73 sqM); Potassium 4.4 mmol/L (3.5-5.1); Sodium 135 mmol/L (137-145); Total Bilirubin 0.6 mg/dL (0.2-1.3); Total Protein 6.2 g/dL (6.3-8.2)
[2023-09-29 12:26] LABS: Glucose,Whole Blood 180 mg/dL (70-110)
[2023-09-29] MEDS: HYDROcodone/APAP 5-325MG 1 EACH TAB PO PRN (12:59)
--- NOTE | 2023-09-29 13:27 | P.PN ---
Subjective Progress Note Date: 09/29/23 patient is a 57-year-old lady with past medical history significant for diabetes mellitus type 2, chronic kidney disease stage III, history of COPD, chronic hypoxic respiratory failure on 4 L of oxygen, history of pulm embolism October 2022, previous history of DVT with s/p IVC filter placement in November 2022, history of lupus, anxiety, morbid obesity, history of vaginal bleeding, history of gallstones presents to the emergency department for feeling not for the last few days. Patient stated that her normally takes care of of her and he was recently admitted to the hospital so there was no one to take care of her at home. Patient has not been eating and drinking much at home. Patient stated that she was also having fevers at home. There was no complaint of chest pain or shortness of breath. Patient was complaining of nausea but no vomiting. Patient has history of endometrial cancer and does get vaginal bleeding. Because of the symptoms, patient came to the ER Initial lab work done in the ER showed WBC 27.8, hemoglobin 10.2, platelet count 449, sodium 130, potassium 5, BUN 58, creatinine 2, glucose 604, AST 11, ALT 8, UA positive for leukocyte Estrace, urine WBC more than 192 Chest x-ray done in the ER showed no acute cardiopulmonary process Patient admitted to internal medicine service 09/27. Patient seen and examined. Patient was started on insulin drip overnight, currently blood sugars are better controlled. Patient will be switched back to subcu insulin. Complaining abdominal pain. No nausea or vomiting 09/28. Patient seen and examined. Blood work done showed WBC 28.5, hemoglobin 8.7, platelet count 428, sodium 135, potassium 4.4, BUN 63, creatinine 2.49, g lucose 144. Still having hematuria. Complaining of abdominal pain. REVIEW OF SYSTEMS: CONSTITUTIONAL: No fever, no malaise,. CARDIOVASCULAR: No chest pain, no palpitations, no syncope. PULMONARY: No shortness of breath, no cough, GASTROINTESTINAL: As mentioned above NEUROLOGICAL: No headaches, no weakness, PHYSICAL EXAMINATION: GENERAL: The patient is alert and oriented x3, not in any acute distress. Ill looking HEENT: Pupils are round and equally reacting to light. EOMI. No scleral icterus. No conjunctival pallor. Normocephalic, atraumatic. No pharyngeal erythema. No thyromegaly. CARDIOVASCULAR: S1 and S2 present. No murmurs, rubs, or gallops. PULMONARY: Chest is clear to auscultation, no wheezing or crackles. ABDOMEN: Soft, nontender, nondistended, normoactive bowel sounds. No palpable organomegaly. MUSCULOSKELETAL: No joint swelling or deformity. EXTREMITIES: No cyanosis, clubbing, or pedal edema. NEUROLOGICAL: Gross neurological examination did not reveal any focal deficits. SKIN: No rashes. Assessment and plan Sepsis UTI Hyperglycemia Chronic kidney disease stage IV History of pulmonary embolism S/p IVC filter in place Chronic hypoxic respiratory failure on 4 L of oxygen History of COPD not in exacerbation Disease mellitus type II Monitor vital signs Monitor CBC Monitor CMP Continue telemetry monitoring Follow-up on blood cultures follow urine culture Continue IV cefepime Continue Eliquis, Lopressor Continue pain management Monitor blood sugar levels, continue Levemir 10 units twice a day and subcu insulin sliding scale ID following Labs and medication were reviewed.. Continue same treatment. Continue with symptomatic treatment. Resume home medication. Monitor labs and vitals. DVT and GI prophylaxis. Further recommendations as per clinical course of the patient Dictation was produced using [employer] dictation software. please excuse any grammatical, word or spelling errors. Objective - Vital Signs Vital signs: Vital Signs Temp 98.8 F 09/29/23 08:00 Pulse 70 09/29/23 08:00 Resp 20 09/29/23 08:00 BP 109/61 09/29/23 08:00 Pulse Ox 92 L 09/29/23 08:00 FiO2 Intake & Output 09/28/23 09/29/23 09/29/23 18:59 06:59 18:59 Intake Total 12.472 Output Total 200 Balance 12.472 -200 Weight 122.5 kg 122.5 kg Intake: Intake, IV Titration 12.472 Amount Insulin Regular 100 unit 12.472 In Sodium Chloride 0.9% 100 ml @ 0.1 UNITS/KG/HR 12.599 mls/hr IV .Q8H1M [facility] Rx#:[id number] Output: Urine 200 Other: Voiding Method External Catheter External Catheter - Labs CBC & Chem 7: 09/29/23 07:25 09/29/23 07:25 Labs: Abnormal Lab Results - Last 24 Hours (Table) 09/28/23 09/28/23 09/28/23 Range/Units 03:22 11:57 16:59 WBC (3.8-10.6) k/uL RBC (3.80-5.40) m/uL Hgb (11.4-16.0) gm/dL Hct (34.0-46.0) % Neutrophils # (1.3-7.7) k/uL Monocytes # (0-1.0) k/uL Sodium (137-145) mmol/L Chloride (98-107) mmol/L Carbon Dioxide (22-30) mmol/L BUN (7-17) mg/dL Creatinine (0.52-1.04) mg/dL Glucose (74-99) mg/dL POC Glucose (mg/dL) 251 H 231 H (70-110) mg/dL Hemoglobin A1c 12.8 H (<=6.0) % Alkaline Phosphatase (38-126) U/L Total Protein (6.3-8.2) g/dL Albumin (3.5-5.0) g/dL 09/28/23 09/28/23 09/29/23 Range/Units 20:10 23:54 07:25 WBC 28.5 H (3.8-10.6) k/uL RBC 3.10 L (3.80-5.40) m/uL Hgb 8.7 L (11.4-16.0) gm/dL Hct 28.1 L (34.0-46.0) % Neutrophils # 24.7 H (1.3-7.7) k/uL Monocytes # 1.5 H (0-1.0) k/uL Sodium (137-145) mmol/L Chloride (98-107) mmol/L Carbon Dioxide (22-30) mmol/L BUN (7-17) mg/dL Creatinine (0.52-1.04) mg/dL Glucose (74-99) mg/dL POC Glucose (mg/dL) 213 H 218 H (70-110) mg/dL Hemoglobin A1c (<=6.0) % Alkaline Phosphatase (38-126) U/L Total Protein (6.3-8.2) g/dL Albumin (3.5-5.0) g/dL 09/29/23 09/29/23 Range/Units 07:25 07:38 WBC (3.8-10.6) k/uL RBC (3.80-5.40) m/uL Hgb (11.4-16.0) gm/dL Hct (34.0-46.0) % Neutrophils # (1.3-7.7) k/uL Monocytes # (0-1.0) k/uL Sodium 135 L (137-145) mmol/L Chloride 109 H (98-107) mmol/L Carbon Dioxide 14 L (22-30) mmol/L BUN 63 H (7-17) mg/dL Creatinine 2.49 H (0.52-1.04) mg/dL Glucose 144 H (74-99) mg/dL POC Glucose (mg/dL) 161 H (70-110) mg/dL Hemoglobin A1c (<=6.0) % Alkaline Phosphatase 188 H (38-126) U/L Total Protein 6.2 L (6.3-8.2) g/dL Albumin 3.0 L (3.5-5.0) g/dL Microbiology - Last 24 Hours (Table) 09/27/23 11:20 Blood Culture - Preliminary Blood 09/27/23 11:05 Blood Culture - Preliminary Blood
[2023-09-29 17:28] LABS: Glucose,Whole Blood 190 mg/dL (70-110)
--- NOTE | 2023-09-29 17:44 | P.PN ---
Subjective Progress Note Date: 09/29/23 Principal diagnosis: Reason for follow-up is leukocytosis and UTI Patient is a 58-year-old female with a past medical history significant for diabetes mellitus COPD hypertension history of uterine cancer for the patient has received radiation, presenting to the hospital with weakness generalized bodyaches unable to take care of herself did have a fever positive UA concerning for symptomatic urinary tract infection. On today's evaluation that is 09/29/2023, the patient continues to be afebrile, the patient is on 4 L nasal oxygen and breathing comfortably, the Pt denies having any chest pain did have occasional cough, the patient denies having any abdominal pain no vomiting or any diarrhea has been reported by the nursing staff. Patient white count is still up to 28.5 creatinine is 2.49 cultures currently pending Objective - Vital Signs Vital signs: Vital Signs Temp 98.8 F 09/29/23 08:00 Pulse 70 09/29/23 08:00 Resp 20 09/29/23 08:00 BP 109/61 09/29/23 08:00 Pulse Ox 92 L 09/29/23 08:00 FiO2 Intake & Output 09/28/23 09/29/23 09/29/23 18:59 06:59 18:59 Intake Total 12.472 Output Total 200 Balance 12.472 -200 Weight 122.5 kg 122.5 kg Intake: Intake, IV Titration 12.472 Amount Insulin Regular 100 unit 12.472 In Sodium Chloride 0.9% 100 ml @ 0.1 UNITS/KG/HR 12.599 mls/hr IV .Q8H1M [facility] Rx#:[id number] Output: Urine 200 Other: Voiding Method External Catheter External Catheter - Exam GENERAL DESCRIPTION: Middle-aged female lying in bed in no distress RESPIRATORY SYSTEM: Unlabored breathing , decreased breath sounds at bases HEART: S1 S2 regular rate and rhythm , ABDOMEN: Soft , no tenderness EXTREMITIES: No edema feet - Labs CBC & Chem 7: 09/29/23 07:25 09/29/23 07:25 Labs: Abnormal Lab Results - Last 24 Hours (Table) 09/28/23 09/28/23 09/28/23 Range/Units 16:59 20:10 23:54 WBC (3.8-10.6) k/uL RBC (3.80-5.40) m/uL Hgb (11.4-16.0) gm/dL Hct (34.0-46.0) % Neutrophils # (1.3-7.7) k/uL Monocytes # (0-1.0) k/uL Sodium (137-145) mmol/L Chloride (98-107) mmol/L Carbon Dioxide (22-30) mmol/L BUN (7-17) mg/dL Creatinine (0.52-1.04) mg/dL Glucose (74-99) mg/dL POC Glucose (mg/dL) 231 H 213 H 218 H (70-110) mg/dL Hemoglobin A1c (<=6.0) % Alkaline Phosphatase (38-126) U/L Total Protein (6.3-8.2) g/dL Albumin (3.5-5.0) g/dL 09/29/23 09/29/23 09/29/23 Range/Units 07:25 07:25 07:25 WBC 28.5 H (3.8-10.6) k/uL RBC 3.10 L (3.80-5.40) m/uL Hgb 8.7 L (11.4-16.0) gm/dL Hct 28.1 L (34.0-46.0) % Neutrophils # 24.7 H (1.3-7.7) k/uL Monocytes # 1.5 H (0-1.0) k/uL Sodium 135 L (137-145) mmol/L Chloride 109 H (98-107) mmol/L Carbon Dioxide 14 L (22-30) mmol/L BUN 63 H (7-17) mg/dL Creatinine 2.49 H (0.52-1.04) mg/dL Glucose 144 H (74-99) mg/dL POC Glucose (mg/dL) (70-110) mg/dL Hemoglobin A1c 13.3 H (<=6.0) % Alkaline Phosphatase 188 H (38-126) U/L Total Protein 6.2 L (6.3-8.2) g/dL Albumin 3.0 L (3.5-5.0) g/dL 09/29/23 09/29/23 Range/Units 07:38 12:21 WBC (3.8-10.6) k/uL RBC (3.80-5.40) m/uL Hgb (11.4-16.0) gm/dL Hct (34.0-46.0) % Neutrophils # (1.3-7.7) k/uL Monocytes # (0-1.0) k/uL Sodium (137-145) mmol/L Chloride (98-107) mmol/L Carbon Dioxide (22-30) mmol/L BUN (7-17) mg/dL Creatinine (0.52-1.04) mg/dL Glucose (74-99) mg/dL POC Glucose (mg/dL) 161 H 180 H (70-110) mg/dL Hemoglobin A1c (<=6.0) % Alkaline Phosphatase (38-126) U/L Total Protein (6.3-8.2) g/dL Albumin (3.5-5.0) g/dL Microbiology - Last 24 Hours (Table) 09/27/23 11:20 Blood Culture - Preliminary Blood 09/27/23 11:05 Blood Culture - Preliminary Blood Assessment and Plan (1) Sepsis Current Visit: Yes Status: Acute Code(s): A41.9 - SEPSIS, UNSPECIFIED ORGANISM SNOMED Code(s): 68185296 (2) Allergy to multiple antibiotics Current Visit: Yes Status: Acute Code(s): Z88.1 - ALLERGY STATUS TO OTHER ANTIBIOTIC AGENTS SNOMED Code(s): 105962790 (3) UTI (urinary tract infection) Current Visit: Yes Status: Acute Code(s): N39.0 - URINARY TRACT INFECTION, SITE NOT SPECIFIED SNOMED Code(s): 69717419 Plan: 1patient presented hospital with sepsis in this patient who did have a fever tachycardia elevated white count did have significantly positive UA likely source of the sepsis patient chest x-ray was negative for any acute infiltrate and no tenderness on abdominal examination to be suspicious for abdominal source. 2patient with multiple antibiotic ALLERGIES that would limit the number of antibiotic safe to use. 3renal insufficiency and high risk of nephrotoxicity. 4patient white count is still elevated urine culture not done has been requ ested again we we will continue with the cefepime and repeat CBC with a.m. lab Dictation was produced using [employer] dictation software. please excuse any grammatical, word or spelling errors. .
[2023-09-29 20:34] LABS: Glucose,Whole Blood 206 mg/dL (70-110)
[2023-09-29 22:11] LABS: Appearance,Urine Cloudy (Clear); Bacteria,Urine Few /hpf; Bilirubin,Urine Negative (Negative); Blood,Urine Large (Negative); Budding Yeast,Urine Many /hpf; Color,Urine Light Red; Glucose,Urine (UA) 4+ (Negative); Ketones,Urine Trace (Negative); Leukocyte Esterase,Urine Large (Negative); Nitrite,Urine Negative (Negative); PH, Urine 5.5 (5.0-8.0); Protein,Urine 2+ (Negative); RBC,Urine 157 /hpf (0-5); Specific Gravity,Urine 1.012 (1.001-1.035); Urobilinogen,Urine <2.0 mg/dL (<2.0); WBC,Urine 20 /hpf (0-5)
[2023-09-30 07:04] LABS: Glucose,Whole Blood 227 mg/dL (70-110)
[2023-09-30 10:22] LABS: HCT 29.6 % (37.2-46.3); MCH 27.9 pg (27.0-32.0); MCHC 30.4 g/dL (32.0-37.0); MCV 91.6 FL (80.0-97.0); Mean Platelet Volume 11.2 FL (9.5-12.2); NRBC Per 100 WBC 0 X 10*3/uL (0.00-0.01); Platelet Count 438 X 10*3/uL (140-440); RBC 3.23 X 10*6/uL (4.10-5.20); RDW 13.1 % (11.5-14.5); WBC 31.22 X 10*3/uL (4.50-10.00)
[2023-09-30 10:28] LABS: ALT 16 U/L (8-44); AST 26 U/L (13-35); Albumin 3.2 g/dL (3.8-4.9); Albumin/Globulin Ratio 0.94 Ratio (1.60-3.17); Alkaline Phosphatase 174 U/L (41-126); BUN/Creat Ratio 27.88 Ratio (12.00-20.00); Blood Urea Nitrogen 69.7 mg/dL (9.0-27.0); Calcium 9.5 mg/dL (8.7-10.3); Carbon Dioxide 14.2 mmol/L (21.6-31.8); Chloride 102 mmol/L (96-109); Globulin 3.4 g/dL (1.6-3.3); Glucose 216 mg/dL (70-110); Potassium 4.8 mmol/L (3.5-5.5); Sodium 134 mmol/L (135-145); Total Bilirubin 0.3 mg/dL (0.3-1.2); Total Protein 6.6 g/dL (6.2-8.2)
[2023-09-30 10:53] LABS: Basophils # (A) 0.13 X 10*3/uL (0.00-0.10); Basophils % (A) 0.4 %; Eosinophils # (A) 0.56 X 10*3/uL (0.04-0.35); Eosinophils % (A) 1.8 %; Lymphocytes # (A) 1.85 X 10*3/uL (0.90-5.00); Lymphocytes % (A) 5.9 %; Monocytes # (A) 1.99 X 10*3/uL (0.20-1.00); Monocytes % (A) 6.4 %; Neutrophils # (A) 26.29 X 10*3/uL (1.80-7.70); Neutrophils % (A) 84.2 %
[2023-09-30 11:52] LABS: Glucose,Whole Blood 246 mg/dL (70-110)
[2023-09-30] MEDS: ANIDULAFUNGIN 200 MG in SODIUM CHLORIDE 0.9% 200 ML IVPB ONE (12:54)
[2023-09-30 17:05] LABS: Glucose,Whole Blood 250 mg/dL (70-110)
[2023-09-30 19:59] LABS: Glucose,Whole Blood 286 mg/dL (70-110)
[2023-09-30] MEDS: NYSTATIN 100,000 UNIT/GM POWD 15 GM TOPICAL SCH (21:43)
[2023-10-01 07:45] LABS: Glucose,Whole Blood 227 mg/dL (70-110)
[2023-10-01] MEDS: ANIDULAFUNGIN 100 MG in SODIUM CHLORIDE 0.9% 100 ML IVPB SCH (11:31)
[2023-10-01 12:01] LABS: Glucose,Whole Blood 215 mg/dL (70-110)
--- NOTE | 2023-10-01 13:32 | P.PN ---
Subjective Progress Note Date: 09/30/23 patient is a 57-year-old lady with past medical history significant for diabetes mellitus type 2, chronic kidney disease stage III, history of COPD, chronic hypoxic respiratory failure on 4 L of oxygen, history of pulm embolism October 2022, previous history of DVT with s/p IVC filter placement in November 2022, history of lupus, anxiety, morbid obesity, history of vaginal bleeding, history of gallstones presents to the emergency department for feeling not for the last few days. Patient stated that her normally takes care of of her and he was recently admitted to the hospital so there was no one to take care of her at home. Patient has not been eating and drinking much at home. Patient stated that she was also having fevers at home. There was no complaint of chest pain or shortness of breath. Patient was complaining of nausea but no vomiting. Patient has history of endometrial cancer and does get vaginal bleeding. Because of the symptoms, patient came to the ER Initial lab work done in the ER showed WBC 27.8, hemoglobin 10.2, platelet count 449, sodium 130, potassium 5, BUN 58, creatinine 2, glucose 604, AST 11, ALT 8, UA positive for leukocyte Estrace, urine WBC more than 192 Chest x-ray done in the ER showed no acute cardiopulmonary process Patient admitted to internal medicine service 09/27. Patient seen and examined. Patient was started on insulin drip overnight, currently blood sugars are better controlled. Patient will be switched back to subcu insulin. Complaining abdominal pain. No nausea or vomiting 09/28. Patient seen and examined. Blood work done showed WBC 28.5, hemoglobin 8.7, platelet count 428, sodium 135, potassium 4.4, BUN 63, creatinine 2.49, g lucose 144. Still having hematuria. Complaining of abdominal pain. 09/29. Patient seen and examined. REVIEW OF SYSTEMS: CONSTITUTIONAL: No fever, no malaise,. CARDIOVASCULAR: No chest pain, no palpitations, no syncope. PULMONARY: No shortness of breath, no cough, GASTROINTESTINAL: As mentioned above NEUROLOGICAL: No headaches, no weakness, PHYSICAL EXAMINATION: GENERAL: The patient is alert and oriented x3, not in any acute distress. Ill looking HEENT: Pupils are round and equally reacting to light. EOMI. No scleral icterus. No conjunctival pallor. Normocephalic, atraumatic. No pharyngeal erythema. No thyromegaly. CARDIOVASCULAR: S1 and S2 present. No murmurs, rubs, or gallops. PULMONARY: Chest is clear to auscultation, no wheezing or crackles. ABDOMEN: Soft, nontender, nondistended, normoactive bowel sounds. No palpable organomegaly. MUSCULOSKELETAL: No joint swelling or deformity. EXTREMITIES: No cyanosis, clubbing, or pedal edema. NEUROLOGICAL: Gross neurological examination did not reveal any focal deficits. SKIN: No rashes. Assessment and plan Sepsis UTI Hyperglycemia Chronic kidney disease stage IV History of pulmonary embolism S/p IVC filter in place Chronic hypoxic respiratory failure on 4 L of oxygen History of COPD not in exacerbation Disease mellitus type II Monitor vital signs Monitor CBC Monitor CMP Continue telemetry monitoring Follow-up on blood cultures follow urine culture Continue IV cefepime and Eraxis Continue Eliquis, Lopressor Continue pain management Monitor blood sugar levels, continue Levemir 10 units twice a day and subcu insulin sliding scale ID following Labs and medication were reviewed.. Continue same treatment. Continue with symptomatic treatment. Resume home medication. Monitor labs and vitals. DVT and GI prophylaxis. Further recommendations as per clinical course of the patient Dictation was produced using [employer] dictation software. please excuse any grammatical, word or spelling errors. Objective - Vital Signs Vital signs: Vital Signs Temp 98.2 F 09/30/23 07:05 Pulse 116 H 09/30/23 07:05 Resp 20 09/30/23 07:05 BP 113/70 09/30/23 07:05 Pulse Ox 99 09/30/23 07:05 FiO2 Intake & Output 09/29/23 09/30/23 09/30/23 18:59 06:59 18:59 Intake Total 580 Output Total 700 500 Balance -120 -500 Weight 122.5 kg 125.5 kg Intake: Oral 580 Output: Urine 700 500 Other: Voiding Method Diaper Diaper # Voids 1 - Labs CBC & Chem 7: 09/30/23 07:42 09/30/23 07:42 Labs: Abnormal Lab Results - Last 24 Hours (Table) 09/29/23 09/29/23 09/29/23 Range/Units 12:21 17:26 20:32 WBC (4.50-10.00) X 10*3/uL RBC (4.10-5.20) X 10*6/uL Hgb (12.0-15.0) g/dL Hct (37.2-46.3) % MCHC (32.0-37.0) g/dL Immature Gran # (0.00-0.04) X 10*3/uL Neutrophils # (1.80-7.70) X 10*3/uL Monocytes # (0.20-1.00) X 10*3/uL Eosinophils # (0.04-0.35) X 10*3/uL Basophils # (0.00-0.10) X 10*3/uL Sodium (135-145) mmol/L Carbon Dioxide (21.6-31.8) mmol/L Anion Gap (4.00-12.00) mmol/L BUN (9.0-27.0) mg/dL Creatinine (0.6-1.5) mg/dL Est GFR (CKD-EPI) (>=60) BUN/Creatinine Ratio (12.00-20.00) Ratio Glucose (70-110) mg/dL POC Glucose (mg/dL) 180 H 190 H 206 H (70-110) mg/dL Alkaline Phosphatase (41-126) U/L Albumin (3.8-4.9) g/dL Globulin (1.6-3.3) g/dL Albumin/Globulin Ratio (1.60-3.17) Ratio Urine Appearance (Clear) Urine Protein (Negative) Urine Glucose (UA) (Negative) Urine Ketones (Negative) Urine Blood (Negative) Ur Leukocyte Esterase (Negative) Urine RBC (0-5) /hpf Urine WBC (0-5) /hpf Urine Bacteria (None) /hpf Urine Yeast (Budding) (None) /hpf 09/29/23 09/30/23 09/30/23 Range/Units 21:38 07:03 07:42 WBC 31.22 H (4.50-10.00) X 10*3/uL RBC 3.23 L (4.10-5.20) X 10*6/uL Hgb 9.0 L (12.0-15.0) g/dL Hct 29.6 L (37.2-46.3) % MCHC 30.4 L (32.0-37.0) g/dL Immature Gran # 0.40 H (0.00-0.04) X 10*3/uL Neutrophils # 26.29 H (1.80-7.70) X 10*3/uL Monocytes # 1.99 H (0.20-1.00) X 10*3/uL Eosinophils # 0.56 H (0.04-0.35) X 10*3/uL Basophils # 0.13 H (0.00-0.10) X 10*3/uL Sodium (135-145) mmol/L Carbon Dioxide (21.6-31.8) mmol/L Anion Gap (4.00-12.00) mmol/L BUN (9.0-27.0) mg/dL Creatinine (0.6-1.5) mg/dL Est GFR (CKD-EPI) (>=60) BUN/Creatinine Ratio (12.00-20.00) Ratio Glucose (70-110) mg/dL POC Glucose (mg/dL) 227 H (70-110) mg/dL Alkaline Phosphatase (41-126) U/L Albumin (3.8-4.9) g/dL Globulin (1.6-3.3) g/dL Albumin/Globulin Ratio (1.60-3.17) Ratio Urine Appearance Cloudy H (Clear) Urine Protein 2+ H (Negative) Urine Glucose (UA) 4+ H (Negative) Urine Ketones Trace H (Negative) Urine Blood Large H (Negative) Ur Leukocyte Esterase Large H (Negative) Urine RBC 157 H (0-5) /hpf Urine WBC 20 H (0-5) /hpf Urine Bacteria Few H (None) /hpf Urine Yeast (Budding) Many H (None) /hpf 09/30/23 Range/Units 07:42 WBC (4.50-10.00) X 10*3/uL RBC (4.10-5.20) X 10*6/uL Hgb (12.0-15.0) g/dL Hct (37.2-46.3) % MCHC (32.0-37.0) g/dL Immature Gran # (0.00-0.04) X 10*3/uL Neutrophils # (1.80-7.70) X 10*3/uL Monocytes # (0.20-1.00) X 10*3/uL Eosinophils # (0.04-0.35) X 10*3/uL Basophils # (0.00-0.10) X 10*3/uL Sodium 134 L (135-145) mmol/L Carbon Dioxide 14.2 L (21.6-31.8) mmol/L Anion Gap 17.80 H (4.00-12.00) mmol/L BUN 69.7 H (9.0-27.0) mg/dL Creatinine 2.5 H (0.6-1.5) mg/dL Est GFR (CKD-EPI) 22 L (>=60) BUN/Creatinine Ratio 27.88 H (12.00-20.00) Ratio Glucose 216 H (70-110) mg/dL POC Glucose (mg/dL) (70-110) mg/dL Alkaline Phosphatase 174 H (41-126) U/L Albumin 3.2 L (3.8-4.9) g/dL Globulin 3.4 H (1.6-3.3) g/dL Albumin/Globulin Ratio 0.94 L (1.60-3.17) Ratio Urine Appearance (Clear) Urine Protein (Negative) Urine Glucose (UA) (Negative) Urine Ketones (Negative) Urine Blood (Negative) Ur Leukocyte Esterase (Negative) Urine RBC (0-5) /hpf Urine WBC (0-5) /hpf Urine Bacteria (None) /hpf Urine Yeast (Budding) (None) /hpf Microbiology - Last 24 Hours (Table) 09/27/23 11:20 Blood Culture - Preliminary Blood 09/27/23 11:05 Blood Culture - Preliminary Blood
--- NOTE | 2023-10-01 13:34 | P.PN ---
Subjective Progress Note Date: 10/01/23 patient is a 57-year-old lady with past medical history significant for diabetes mellitus type 2, chronic kidney disease stage III, history of COPD, chronic hypoxic respiratory failure on 4 L of oxygen, history of pulm embolism October 2022, previous history of DVT with s/p IVC filter placement in November 2022, history of lupus, anxiety, morbid obesity, history of vaginal bleeding, history of gallstones presents to the emergency department for feeling not for the last few days. Patient stated that her normally takes care of of her and he was recently admitted to the hospital so there was no one to take care of her at home. Patient has not been eating and drinking much at home. Patient stated that she was also having fevers at home. There was no complaint of chest pain or shortness of breath. Patient was complaining of nausea but no vomiting. Patient has history of endometrial cancer and does get vaginal bleeding. Because of the symptoms, patient came to the ER Initial lab work done in the ER showed WBC 27.8, hemoglobin 10.2, platelet count 449, sodium 130, potassium 5, BUN 58, creatinine 2, glucose 604, AST 11, ALT 8, UA positive for leukocyte Estrace, urine WBC more than 192 Chest x-ray done in the ER showed no acute cardiopulmonary process Patient admitted to internal medicine service 09/27. Patient seen and examined. Patient was started on insulin drip overnight, currently blood sugars are better controlled. Patient will be switched back to subcu insulin. Complaining abdominal pain. No nausea or vomiting 09/28. Patient seen and examined. Blood work done showed WBC 28.5, hemoglobin 8.7, platelet count 428, sodium 135, potassium 4.4, BUN 63, creatinine 2.49, g lucose 144. Still having hematuria. Complaining of abdominal pain. 09/29. Patient seen and examined. 09/30. Patient seen examined. Still complaining abdominal pain. Still has bleeding from her genital area which is her baseline. Denies any fever or chills. REVIEW OF SYSTEMS: CONSTITUTIONAL: No fever, no malaise,. CARDIOVASCULAR: No chest pain, no palpitations, no syncope. PULMONARY: No shortness of breath, no cough, GASTROINTESTINAL: As mentioned above NEUROLOGICAL: No headaches, no weakness, PHYSICAL EXAMINATION: GENERAL: The patient is alert and oriented x3, not in any acute distress. Ill looking HEENT: Pupils are round and equally reacting to light. EOMI. No scleral icterus. No conjunctival pallor. Normocephalic, atraumatic. No pharyngeal erythema. No thyromegaly. CARDIOVASCULAR: S1 and S2 present. No murmurs, rubs, or gallops. PULMONARY: Chest is clear to auscultation, no wheezing or crackles. ABDOMEN: Soft, nontender, nondistended, normoactive bowel sounds. No palpable organomegaly. MUSCULOSKELETAL: No joint swelling or deformity. EXTREMITIES: No cyanosis, clubbing, or pedal edema. NEUROLOGICAL: Gross neurological examination did not reveal any focal deficits. SKIN: No rashes. Assessment and plan Sepsis UTI Hyperglycemia Chronic kidney disease stage IV History of pulmonary embolism S/p IVC filter in place Chronic hypoxic respiratory failure on 4 L of oxygen History of COPD not in exacerbation Disease mellitus type II Monitor vital signs Monitor CBC Monitor CMP Continue telemetry monitoring Follow-up on blood cultures follow urine culture Continue IV cefepime and Eraxis Continue Eliquis, Lopressor Continue pain management Ordered CT abdominal pelvis Monitor blood sugar levels, continue Levemir 10 units twice a day and subcu insulin sliding scale ID following Labs and medication were reviewed.. Continue same treatment. Continue with symptomatic treatment. Resume home medication. Monitor labs and vitals. DVT and GI prophylaxis. Further recommendations as per clinical course of the patient Dictation was produced using [employer] dictation software. please excuse any grammatical, word or spelling errors. Objective - Vital Signs Vital signs: Vital Signs Temp 98.5 F 10/01/23 07:38 Pulse 128 H 10/01/23 08:40 Resp 17 10/01/23 08:40 BP 113/74 10/01/23 07:38 Pulse Ox 96 10/01/23 07:38 FiO2 Intake & Output 09/30/23 10/01/23 10/01/23 18:59 06:59 18:59 Output Total 800 Balance -800 Weight 125.5 kg Output: Urine 800 Other: Voiding Method Diaper Diaper Diaper # Voids 1 - Labs CBC & Chem 7: 09/30/23 07:42 09/30/23 07:42 Labs: Abnormal Lab Results - Last 24 Hours (Table) 09/30/23 09/30/23 10/01/23 Range/Units 17:03 19:58 07:44 POC Glucose (mg/dL) 250 H 286 H 227 H (70-110) mg/dL 10/01/23 Range/Units 11:59 POC Glucose (mg/dL) 215 H (70-110) mg/dL Microbiology - Last 24 Hours (Table) 09/27/23 11:20 Blood Culture - Preliminary Blood 09/29/23 21:38 Urine Culture - Preliminary Urine,Voided 09/27/23 11:05 Blood Culture - Preliminary Blood
--- NOTE | 2023-10-01 14:18 | CT ---
EXAMINATION TYPE: CT abdomen pelvis wo con DATE OF EXAM: 10/01/2023 COMPARISON: 03/26/2023 INDICATION: abd pain DLP: 1309 mGycm, Automated exposure control for dose reduction was used. CONTRAST: mL of . Study performed without Oral Contrast TECHNIQUE: Axial images were obtained from above the diaphragm to the pubic rami in the axial plane a t 5 mm thick sections. Reconstructed images are reviewed on the computer in the coronal plane. Imag es were obtained in the lateral decubitus view. FINDINGS: Limited CT sections are obtained the lung bases. The lung bases are clear. CT ABDOMEN: Liver: Normal Spleen: Normal Pancreas: Normal Adrenal glands: The adrenal glands are normal. Gallbladder: Surgically absent Kidneys: No masses are evident. No hydronephrosis is present. No cysts are present. Delayed images were obtained through the kidneys, which remain unremarkable. Aorta: Vascular calcification is within the aorta. Inferior vena cava: There is a filter within the inferior vena cava. CT PELVIS: Loops of bowel within the abdomen and pelvis are normal. There are loops of bowel which are incom pletely distended or lack oral contrast limiting their evaluation. Appendix: Normal as visualized. Urinary bladder: Normal. Genitourinary structures: IUD is within the lower portion of the uterine body. Uterus appears somewh at bulky and adnexa is unremarkable. Osseous structures: No suspicious lytic or sclerotic lesions. Prior left hip pin remains present. IMPRESSION: 1. No suspicious abnormalities to account for abdominal pain
[2023-10-01 15:55] LABS: HCT 27.8 % (34.0-46.0); HGB 8.7 gm/dL (11.4-16.0); Hypochromasia Moderate; MCH 29.1 pg (25.0-35.0); MCHC 31.2 g/dL (31.0-37.0); MCV 93.2 fL (80.0-100.0); Mean Platelet Volume 9.5; Platelet Count 448 k/uL (150-450); RBC 2.98 m/uL (3.80-5.40); RDW 13.4 % (11.5-15.5); WBC 26.7 k/uL (3.8-10.6)
[2023-10-01 17:24] LABS: Glucose,Whole Blood 253 mg/dL (70-110)
[2023-10-01 20:37] LABS: Glucose,Whole Blood 219 mg/dL (70-110)
[2023-10-02 04:32] LABS: HCT 27.5 % (34.0-46.0); HGB 8.6 gm/dL (11.4-16.0); Hypochromasia Slight; MCHC 31.2 g/dL (31.0-37.0); MCV 92.7 fL (80.0-100.0); Mean Platelet Volume 8.7; Platelet Count 473 k/uL (150-450); RBC 2.97 m/uL (3.80-5.40); RDW 13.6 % (11.5-15.5); WBC 25.8 k/uL (3.8-10.6)
[2023-10-02 07:19] LABS: Glucose,Whole Blood 218 mg/dL (70-110)
[2023-10-02 11:15] LABS: Glucose,Whole Blood 229 mg/dL (70-110)
--- NOTE | 2023-10-02 12:50 | P.PN ---
Subjective Progress Note Date: 10/02/23 patient is a 57-year-old lady with past medical history significant for diabetes mellitus type 2, chronic kidney disease stage III, history of COPD, chronic hypoxic respiratory failure on 4 L of oxygen, history of pulm embolism October 2022, previous history of DVT with s/p IVC filter placement in November 2022, history of lupus, anxiety, morbid obesity, history of vaginal bleeding, history of gallstones presents to the emergency department for feeling not for the last few days. Patient stated that her normally takes care of of her and he was recently admitted to the hospital so there was no one to take care of her at home. Patient has not been eating and drinking much at home. Patient stated that she was also having fevers at home. There was no complaint of chest pain or shortness of breath. Patient was complaining of nausea but no vomiting. Patient has history of endometrial cancer and does get vaginal bleeding. Because of the symptoms, patient came to the ER Initial lab work done in the ER showed WBC 27.8, hemoglobin 10.2, platelet count 449, sodium 130, potassium 5, BUN 58, creatinine 2, glucose 604, AST 11, ALT 8, UA positive for leukocyte Estrace, urine WBC more than 192 Chest x-ray done in the ER showed no acute cardiopulmonary process Patient admitted to internal medicine service 09/27. Patient seen and examined. Patient was started on insulin drip overnight, currently blood sugars are better controlled. Patient will be switched back to subcu insulin. Complaining abdominal pain. No nausea or vomiting 09/28. Patient seen and examined. Blood work done showed WBC 28.5, hemoglobin 8.7, platelet count 428, sodium 135, potassium 4.4, BUN 63, creatinine 2.49, g lucose 144. Still having hematuria. Complaining of abdominal pain. 09/29. Patient seen and examined. 09/30. Patient seen examined. Still complaining abdominal pain. Still has bleeding from her genital area which is her baseline. Denies any fever or chills. 10/01. Patient seen and examined. Continues to have abdominal pain. Discussed with her in detail regarding her CT scan that there was nothing in abdominal to explain her pain. Patient is concerned about her history of uterine cancer. Still having on and off vagina bleeding. REVIEW OF SYSTEMS: CONSTITUTIONAL: No fever, no malaise,. CARDIOVASCULAR: No chest pain, no palpitations, no syncope. PULMONARY: No shortness of breath, no cough, GASTROINTESTINAL: As mentioned above NEUROLOGICAL: No headaches, no weakness, PHYSICAL EXAMINATION: GENERAL: The patient is alert and oriented x3, not in any acute distress. Ill looking HEENT: Pupils are round and equally reacting to light. EOMI. No scleral icterus. No conjunctival pallor. Normocephalic, atraumatic. No pharyngeal erythema. No thyromegaly. CARDIOVASCULAR: S1 and S2 present. No murmurs, rubs, or gallops. PULMONARY: Chest is clear to auscultation, no wheezing or crackles. ABDOMEN: Soft, nontender, nondistended, normoactive bowel sounds. No palpable organomegaly. MUSCULOSKELETAL: No joint swelling or deformity. EXTREMITIES: No cyanosis, clubbing, or pedal edema. NEUROLOGICAL: Gross neurological examination did not reveal any focal deficits. SKIN: No rashes. Assessment and plan Sepsis UTI Hyperglycemia Chronic kidney disease stage IV History of pulmonary embolism S/p IVC filter in place Chronic hypoxic respiratory failure on 4 L of oxygen History of COPD not in exacerbation Disease mellitus type II History of uterine cancer Monitor vital signs Monitor CBC Monitor CMP Continue telemetry monitoring Follow-up on blood cultures follow urine culture Continue IV cefepime and Eraxis Continue Eliquis, Lopressor Continue pain management Monitor blood sugar levels, continue Levemir 10 units twice a day and subcu insulin sliding scale ID following Consult oncology Labs and medication were reviewed.. Continue same treatment. Continue with sym ptomatic treatment. Resume home medication. Monitor labs and vitals. DVT and GI prophylaxis. Further recommendations as per clinical course of the patient Dictation was produced using [employer] dictation software. please excuse any grammatical, word or spelling errors. Objective - Vital Signs Vital signs: Vital Signs Temp 98.2 F 10/02/23 07:00 Pulse 108 H 10/02/23 07:00 Resp 22 10/02/23 07:00 BP 113/74 10/02/23 07:00 Pulse Ox 98 10/02/23 08:49 FiO2 Intake & Output 10/01/23 10/02/23 10/02/23 18:59 06:59 18:59 Intake Total 590 Output Total 500 300 Balance -500 290 Intake: Oral 590 Output: Urine 500 300 Other: Voiding Method Diaper Diaper Diaper - Labs CBC & Chem 7: 10/02/23 04:06 09/30/23 07:42 Labs: Abnormal Lab Results - Last 24 Hours (Table) 10/01/23 10/01/23 10/01/23 Range/Units 14:41 17:23 20:35 WBC 26.7 H (3.8-10.6) k/uL RBC 2.98 L (3.80-5.40) m/uL Hgb 8.7 L (11.4-16.0) gm/dL Hct 27.8 L (34.0-46.0) % Plt Count (150-450) k/uL POC Glucose (mg/dL) 253 H 219 H (70-110) mg/dL 10/02/23 10/02/23 10/02/23 Range/Units 04:06 07:18 11:13 WBC 25.8 H (3.8-10.6) k/uL RBC 2.97 L (3.80-5.40) m/uL Hgb 8.6 L (11.4-16.0) gm/dL Hct 27.5 L (34.0-46.0) % Plt Count 473 H (150-450) k/uL POC Glucose (mg/dL) 218 H 229 H (70-110) mg/dL Microbiology - Last 24 Hours (Table) 09/29/23 21:38 Urine Culture - Final Urine,Voided Shelly albicans
[2023-10-02 16:55] LABS: Glucose,Whole Blood 250 mg/dL (70-110)
--- NOTE | 2023-10-02 17:55 | P.PN ---
Subjective Progress Note Date: 10/01/23 Principal diagnosis: Reason for follow-up is leukocytosis and UTI Patient is a 58-year-old female with a past medical history significant for diabetes mellitus COPD hypertension history of uterine cancer for the patient has received radiation, presenting to the hospital with weakness generalized bodyaches unable to take care of herself did have a fever positive UA concerning for symptomatic urinary tract infection. On today's evaluation that is 10/01/2023, patient has been afebrile, patient is breathing comfortably and is currently on 4 L nasal cannula oxygen, patient denies having any significant cough no chest pain shortness of breath, patient complaining of some nausea but no vomiting or diarrhea some lower abdominal discomfort and pain to her back wound area Patient white count is down to 26.7 no BMP was done today Objective - Vital Signs Vital signs: Vital Signs Temp 98.5 F 10/01/23 07:38 Pulse 114 H 10/01/23 07:38 Resp 17 10/01/23 07:38 BP 113/74 10/01/23 07:38 Pulse Ox 96 10/01/23 07:38 FiO2 Intake & Output 09/30/23 10/01/23 10/01/23 18:59 06:59 18:59 Output Total 800 Balance -800 Weight 125.5 kg Output: Urine 800 Other: Voiding Method Diaper Diaper # Voids 1 - Exam GENERAL DESCRIPTION: Middle-aged female lying in bed in no distress RESPIRATORY SYSTEM: Unlabored breathing , decreased breath sounds at bases HEART: S1 S2 regular rate and rhythm , ABDOMEN: Soft , no tenderness EXTREMITIES: No edema feet - Labs CBC & Chem 7: 10/02/23 04:06 09/30/23 07:42 Labs: Abnormal Lab Results - Last 24 Hours (Table) 09/30/23 09/30/23 09/30/23 Range/Units 07:42 07:42 11:51 WBC 31.22 H (4.50-10.00) X 10*3/uL RBC 3.23 L (4.10-5.20) X 10*6/uL Hgb 9.0 L (12.0-15.0) g/dL Hct 29.6 L (37.2-46.3) % MCHC 30.4 L (32.0-37.0) g/dL Immature Gran # 0.40 H (0.00-0.04) X 10*3/uL Neutrophils # 26.29 H (1.80-7.70) X 10*3/uL Monocytes # 1.99 H (0.20-1.00) X 10*3/uL Eosinophils # 0.56 H (0.04-0.35) X 10*3/uL Basophils # 0.13 H (0.00-0.10) X 10*3/uL Sodium 134 L (135-145) mmol/L Carbon Dioxide 14.2 L (21.6-31.8) mmol/L Anion Gap 17.80 H (4.00-12.00) mmol/L BUN 69.7 H (9.0-27.0) mg/dL Creatinine 2.5 H (0.6-1.5) mg/dL Est GFR (CKD-EPI) 22 L (>=60) BUN/Creatinine Ratio 27.88 H (12.00-20.00) Ratio Glucose 216 H (70-110) mg/dL POC Glucose (mg/dL) 246 H (70-110) mg/dL Alkaline Phosphatase 174 H (41-126) U/L Albumin 3.2 L (3.8-4.9) g/dL Globulin 3.4 H (1.6-3.3) g/dL Albumin/Globulin Ratio 0.94 L (1.60-3.17) Ratio 09/30/23 09/30/23 10/01/23 Range/Units 17:03 19:58 07:44 WBC (4.50-10.00) X 10*3/uL RBC (4.10-5.20) X 10*6/uL Hgb (12.0-15.0) g/dL Hct (37.2-46.3) % MCHC (32.0-37.0) g/dL Immature Gran # (0.00-0.04) X 10*3/uL Neutrophils # (1.80-7.70) X 10*3/uL Monocytes # (0.20-1.00) X 10*3/uL Eosinophils # (0.04-0.35) X 10*3/uL Basophils # (0.00-0.10) X 10*3/uL Sodium (135-145) mmol/L Carbon Dioxide (21.6-31.8) mmol/L Anion Gap (4.00-12.00) mmol/L BUN (9.0-27.0) mg/dL Creatinine (0.6-1.5) mg/dL Est GFR (CKD-EPI) (>=60) BUN/Creatinine Ratio (12.00-20.00) Ratio Glucose (70-110) mg/dL POC Glucose (mg/dL) 250 H 286 H 227 H (70-110) mg/dL Alkaline Phosphatase (41-126) U/L Albumin (3.8-4.9) g/dL Globulin (1.6-3.3) g/dL Albumin/Globulin Ratio (1.60-3.17) Ratio Microbiology - Last 24 Hours (Table) 09/27/23 11:20 Blood Culture - Preliminary Blood 09/29/23 21:38 Urine Culture - Preliminary Urine,Voided 09/27/23 11:05 Blood Culture - Preliminary Blood Assessment and Plan (1) Sepsis Current Visit: Yes Status: Acute Code(s): A41.9 - SEPSIS, UNSPECIFIED ORGANISM SNOMED Code(s): 29110311 (2) Allergy to multiple antibiotics Current Visit: Yes Status: Acute Code(s): Z88.1 - ALLERGY STATUS TO OTHER ANTIBIOTIC AGENTS SNOMED Code(s): 496465428 (3) UTI (urinary tract infection) Current Visit: Yes Status: Acute Code(s): N39.0 - URINARY TRACT INFECTION, SITE NOT SPECIFIED SNOMED Code(s): 61219037 Plan: 1patient presented hospital with sepsis in this patient who did have a fever tachycardia elevated white count did have significantly positive UA likely source of the sepsis patient chest x-ray was negative for any acute infiltrate and no tenderness on abdominal examination to be suspicious for abdominal source. 2patient with multiple antibiotic ALLERGIES that would limit the number of antibiotic safe to use. 3renal insufficiency and high risk of nephrotoxicity. 4patient white count is still improved with addition of Eraxis to continue while waiting for the culture to finalize Dictation was produced using [employer] dictation software. please excuse any grammatical, word or spelling errors. . Time with Patient: Less than 30
--- NOTE | 2023-10-02 17:55 | P.PN ---
Subjective Progress Note Date: 09/30/23 Principal diagnosis: Reason for follow-up is leukocytosis and UTI Patient is a 58-year-old female with a past medical history significant for diabetes mellitus COPD hypertension history of uterine cancer for the patient has received radiation, presenting to the hospital with weakness generalized bodyaches unable to take care of herself did have a fever positive UA concerning for symptomatic urinary tract infection. On today's evaluation that is 09/30/2023, Patient is afebrile patient is currently on 4 L nasal cannula oxygen and denies having any shortness of breath, the patient denies any chest pain or cough, the patient complaining of some nausea but no vomiting some lower abdominal discomfort and no diarrhea. The patient white count is up to 31.22 creatinine is 2.5 Objective - Vital Signs Vital signs: Vital Signs Temp 98.2 F 09/30/23 07:05 Pulse 116 H 09/30/23 07:05 Resp 20 09/30/23 07:05 BP 113/70 09/30/23 07:05 Pulse Ox 99 09/30/23 07:05 FiO2 Intake & Output 09/29/23 09/30/23 09/30/23 18:59 06:59 18:59 Intake Total 580 Output Total 700 500 Balance -120 -500 Weight 122.5 kg 125.5 kg Intake: Oral 580 Output: Urine 700 500 Other: Voiding Method Diaper Diaper # Voids 1 - Exam GENERAL DESCRIPTION: Middle-aged female lying in bed in no distress RESPIRATORY SYSTEM: Unlabored breathing , decreased breath sounds at bases HEART: S1 S2 regular rate and rhythm , ABDOMEN: Soft , no tenderness EXTREMITIES: No edema feet - Labs CBC & Chem 7: 10/02/23 04:06 09/30/23 07:42 Labs: Abnormal Lab Results - Last 24 Hours (Table) 09/29/23 09/29/23 09/29/23 Range/Units 12:21 17:26 20:32 WBC (4.50-10.00) X 10*3/uL RBC (4.10-5.20) X 10*6/uL Hgb (12.0-15.0) g/dL Hct (37.2-46.3) % MCHC (32.0-37.0) g/dL Immature Gran # (0.00-0.04) X 10*3/uL Neutrophils # (1.80-7.70) X 10*3/uL Monocytes # (0.20-1.00) X 10*3/uL Eosinophils # (0.04-0.35) X 10*3/uL Basophils # (0.00-0.10) X 10*3/uL Sodium (135-145) mmol/L Carbon Dioxide (21.6-31.8) mmol/L Anion Gap (4.00-12.00) mmol/L BUN (9.0-27.0) mg/dL Creatinine (0.6-1.5) mg/dL Est GFR (CKD-EPI) (>=60) BUN/Creatinine Ratio (12.00-20.00) Ratio Glucose (70-110) mg/dL POC Glucose (mg/dL) 180 H 190 H 206 H (70-110) mg/dL Alkaline Phosphatase (41-126) U/L Albumin (3.8-4.9) g/dL Globulin (1.6-3.3) g/dL Albumin/Globulin Ratio (1.60-3.17) Ratio Urine Appearance (Clear) Urine Protein (Negative) Urine Glucose (UA) (Negative) Urine Ketones (Negative) Urine Blood (Negative) Ur Leukocyte Esterase (Negative) Urine RBC (0-5) /hpf Urine WBC (0-5) /hpf Urine Bacteria (None) /hpf Urine Yeast (Budding) (None) /hpf 09/29/23 09/30/23 09/30/23 Range/Units 21:38 07:03 07:42 WBC 31.22 H (4.50-10.00) X 10*3/uL RBC 3.23 L (4.10-5.20) X 10*6/uL Hgb 9.0 L (12.0-15.0) g/dL Hct 29.6 L (37.2-46.3) % MCHC 30.4 L (32.0-37.0) g/dL Immature Gran # 0.40 H (0.00-0.04) X 10*3/uL Neutrophils # 26.29 H (1.80-7.70) X 10*3/uL Monocytes # 1.99 H (0.20-1.00) X 10*3/uL Eosinophils # 0.56 H (0.04-0.35) X 10*3/uL Basophils # 0.13 H (0.00-0.10) X 10*3/uL Sodium (135-145) mmol/L Carbon Dioxide (21.6-31.8) mmol/L Anion Gap (4.00-12.00) mmol/L BUN (9.0-27.0) mg/dL Creatinine (0.6-1.5) mg/dL Est GFR (CKD-EPI) (>=60) BUN/Creatinine Ratio (12.00-20.00) Ratio Glucose (70-110) mg/dL POC Glucose (mg/dL) 227 H (70-110) mg/dL Alkaline Phosphatase (41-126) U/L Albumin (3.8-4.9) g/dL Globulin (1.6-3.3) g/dL Albumin/Globulin Ratio (1.60-3.17) Ratio Urine Appearance Cloudy H (Clear) Urine Protein 2+ H (Negative) Urine Glucose (UA) 4+ H (Negative) Urine Ketones Trace H (Negative) Urine Blood Large H (Negative) Ur Leukocyte Esterase Large H (Negative) Urine RBC 157 H (0-5) /hpf Urine WBC 20 H (0-5) /hpf Urine Bacteria Few H (None) /hpf Urine Yeast (Budding) Many H (None) /hpf 09/30/23 Range/Units 07:42 WBC (4.50-10.00) X 10*3/uL RBC (4.10-5.20) X 10*6/uL Hgb (12.0-15.0) g/dL Hct (37.2-46.3) % MCHC (32.0-37.0) g/dL Immature Gran # (0.00-0.04) X 10*3/uL Neutrophils # (1.80-7.70) X 10*3/uL Monocytes # (0.20-1.00) X 10*3/uL Eosinophils # (0.04-0.35) X 10*3/uL Basophils # (0.00-0.10) X 10*3/uL Sodium 134 L (135-145) mmol/L Carbon Dioxide 14.2 L (21.6-31.8) mmol/L Anion Gap 17.80 H (4.00-12.00) mmol/L BUN 69.7 H (9.0-27.0) mg/dL Creatinine 2.5 H (0.6-1.5) mg/dL Est GFR (CKD-EPI) 22 L (>=60) BUN/Creatinine Ratio 27.88 H (12.00-20.00) Ratio Glucose 216 H (70-110) mg/dL POC Glucose (mg/dL) (70-110) mg/dL Alkaline Phosphatase 174 H (41-126) U/L Albumin 3.2 L (3.8-4.9) g/dL Globulin 3.4 H (1.6-3.3) g/dL Albumin/Globulin Ratio 0.94 L (1.60-3.17) Ratio Urine Appearance (Clear) Urine Protein (Negative) Urine Glucose (UA) (Negative) Urine Ketones (Negative) Urine Blood (Negative) Ur Leukocyte Esterase (Negative) Urine RBC (0-5) /hpf Urine WBC (0-5) /hpf Urine Bacteria (None) /hpf Urine Yeast (Budding) (None) /hpf Microbiology - Last 24 Hours (Table) 09/27/23 11:20 Blood Culture - Preliminary Blood 09/27/23 11:05 Blood Culture - Preliminary Blood Assessment and Plan (1) Sepsis Current Visit: Yes Status: Acute Code(s): A41.9 - SEPSIS, UNSPECIFIED ORGANISM SNOMED Code(s): 34986897 (2) Allergy to multiple antibiotics Current Visit: Yes Status: Acute Code(s): Z88.1 - ALLERGY STATUS TO OTHER ANTIBIOTIC AGENTS SNOMED Code(s): 377054536 (3) UTI (urinary tract infection) Current Visit: Yes Status: Acute Code(s): N39.0 - URINARY TRACT INFECTION, SITE NOT SPECIFIED SNOMED Code(s): 00065689 Plan: 1patient presented hospital with sepsis in this patient who did have a fever tachycardia elevated white count did have significantly positive UA likely s ource of the sepsis patient chest x-ray was negative for any acute infiltrate and no tenderness on abdominal examination to be suspicious for abdominal source. 2patient with multiple antibiotic ALLERGIES that would limit the number of antibiotic safe to use. 3renal insufficiency and high risk of nephrotoxicity. 4patient white count is still elevated patient likely benefit from antifungal unfortunately able to use Diflucan because of multiple drug interaction Eraxis not ideal but I have no choice hence we will add Eraxis and see response Dictation was produced using [employer] dictation software. please excuse any grammatical, word or spelling errors. . Time with Patient: Less than 30
--- NOTE | 2023-10-02 17:56 | P.PN ---
Subjective Progress Note Date: 10/02/23 Principal diagnosis: Reason for follow-up is leukocytosis and UTI Patient is a 58-year-old female with a past medical history significant for diabetes mellitus COPD hypertension history of uterine cancer for the patient has received radiation, presenting to the hospital with weakness generalized bodyaches unable to take care of herself did have a fever positive UA concerning for symptomatic urinary tract infection. On today's evaluation that is 10/02/2023, Patient did have a low-grade fever 100.3 last night however the patient is afebrile this morning and denies any chills, patient mention breathing comfortably and is currently on room air, patient denies any chest pain occasional cough patient complaining of some lower abdominal discomfort nausea but no vomiting and no diarrhea. Patient vital signs are 25.8 no BMP was done today, patient did have a abdominal pelvis CT that was reported negative for acute abnormality by radiology completed yesterday Objective - Vital Signs Vital signs: Vital Signs Temp 98.2 F 10/02/23 07:00 Pulse 108 H 10/02/23 07:00 Resp 22 10/02/23 07:00 BP 113/74 10/02/23 07:00 Pulse Ox 98 10/02/23 08:49 FiO2 Intake & Output 10/01/23 10/02/23 10/02/23 18:59 06:59 18:59 Intake Total 590 Output Total 500 300 Balance -500 290 Intake: Oral 590 Output: Urine 500 300 Other: Voiding Method Diaper Diaper - Exam GENERAL DESCRIPTION: Middle-aged female lying in bed in no distress RESPIRATORY SYSTEM: Unlabored breathing , decreased breath sounds at bases HEART: S1 S2 regular rate and rhythm , ABDOMEN: Soft , no tenderness EXTREMITIES: No edema feet - Labs CBC & Chem 7: 10/02/23 04:06 09/30/23 07:42 Labs: Abnormal Lab Results - Last 24 Hours (Table) 10/01/23 10/01/23 10/01/23 Range/Units 11:59 14:41 17:23 WBC 26.7 H (3.8-10.6) k/uL RBC 2.98 L (3.80-5.40) m/uL Hgb 8.7 L (11.4-16.0) gm/dL Hct 27.8 L (34.0-46.0) % Plt Count (150-450) k/uL POC Glucose (mg/dL) 215 H 253 H (70-110) mg/dL 10/01/23 10/02/23 10/02/23 Range/Units 20:35 04:06 07:18 WBC 25.8 H (3.8-10.6) k/uL RBC 2.97 L (3.80-5.40) m/uL Hgb 8.6 L (11.4-16.0) gm/dL Hct 27.5 L (34.0-46.0) % Plt Count 473 H (150-450) k/uL POC Glucose (mg/dL) 219 H 218 H (70-110) mg/dL Microbiology - Last 24 Hours (Table) 09/29/23 21:38 Urine Culture - Final Urine,Voided Shelly albicans Assessment and Plan (1) Sepsis Current Visit: Yes Status: Acute Code(s): A41.9 - SEPSIS, UNSPECIFIED ORGANISM SNOMED Code(s): 36483959 (2) Allergy to multiple antibiotics Current Visit: Yes Status: Acute Code(s): Z88.1 - ALLERGY STATUS TO OTHER ANTIBIOTIC AGENTS SNOMED Code(s): 888789534 (3) UTI (urinary tract infection) Current Visit: Yes Status: Acute Code(s): N39.0 - URINARY TRACT INFECTION, SITE NOT SPECIFIED SNOMED Code(s): 91679237 Plan: 1patient presented hospital with sepsis in this patient who did have a fever tachycardia elevated white count did have significantly positive UA likely source of the sepsis patient chest x-ray was negative for any acute infiltrate and no tenderness on abdominal examination to be suspicious for abdominal source. 2patient with multiple antibiotic ALLERGIES that would limit the number of antibiotic safe to use. 3renal insufficiency and high risk of nephrotoxicity. 4patient urine culture has been finalized with Shelly albicans unfortunately is not able to use Diflucan would have been ideal because of multiple drug interaction this was discussed in detail with the pharmacist on the phone continue Eraxis discontinue cefepime Dictation was produced using [employer] dictation software. please excuse any grammatical, word or spelling errors. .
[2023-10-02 20:41] LABS: Glucose,Whole Blood 217 mg/dL (70-110)
[2023-10-03 05:34] LABS: Glucose,Whole Blood 199 mg/dL (70-110)
--- NOTE | 2023-10-03 11:16 | P.CONS ---
History of Present Illness - Reason for Consult Consult date: 10/03/23 wound care - History of Present Illness This is a 58-year-old patient being seen on 6 [address]. for ulceration to the left buttocks. Patient states that the area has been bothering her for the last few weeks. Her has been putting dressings on it with minimal drainage. Patient has an abscess measuring 2 x 3 cm with ecchymosis and purulent drainage from the site. Area is tender to palpation,Erythema induration and fluctuance noted. Review Of Systems: Constitutional: No fever, no chills, no night sweats. No weight change. No weakness, fatigue or lethargy. No daytime sleepiness. Integumentary:reports wounds, no lesions. No rash or pruritus. No unusual bruising. No change in hair or nails. Physical exam: General Appearance: Alert, cooperative, no distress, appears stated age. Skin: See HPI all other Skin color, texture, tugor normal, no rashes or lesions. Neurologic: Alert oriented x3 Assessment: 1. Abscess left buttocks 2. Diabetes with skin ulceration Plan: 1. Recommendation for consult general surgery for possible I&D to the site. No recommendations for dressings at this time until the abscess is managed. Thank you for the consultation any questions please contact the wound care center DNP note has been reviewed and discussed with Dr. Gandhi and the impression and plan of care has been directed as dictated. Past Medical History Past Medical History: Cancer, COPD, Diabetes Mellitus, Deep Vein Thrombosis (DVT), Hypertension, Renal Disease, Rheumatoid Arthritis (RA), Thyroid Disorder Additional Past Medical History / Comment(s): O2 @ 4L. SLE LUPUS. STAGE 3 KIDNEY DISEASE. Leukemia, GRAVES DZ , kidney stones, gout, Uterine cancer (no surgery, radiation only) History of Any Multi-Drug Resistant Organisms: Other MDRO Past Surgical History: Cholecystectomy Additional Past Surgical History / Comment(s): BILATERAL ARTHROSCOPY KNEES. D & C (MISCARRIAGES). Past Anesthesia/Blood Transfusion Reactions: No Reported Reaction Past Psychological History: Anxiety Smoking Status: Never smoker Past Alcohol Use History: None Reported Past Drug Use History: None Reported - Past Family History Mother Family Medical History: Congestive Heart Failure (CHF), Diabetes Mellitus Father Family Medical History: Congestive Heart Failure (CHF), Dialysis, Hypertension Medications and Allergies Home Medications Medication Instructions Recorded Confirmed Type Montelukast [Singulair] 10 mg PO DAILY 01/09/17 09/27/23 History allopurinoL [Zyloprim] 100 mg PO BID 01/21/22 09/27/23 History Atorvastatin [Lipitor] 10 mg PO DAILY 02/15/22 09/27/23 History Hydroxychloroquine Sulfate 200 mg PO BID 04/13/22 09/27/23 History [Plaquenil] hydrOXYzine HCL [Atarax] 25 mg PO QID 04/13/22 09/27/23 History FLUoxetine HCL [PROzac] 20 mg PO BID 10/27/22 09/27/23 History Pantoprazole [Protonix] 40 mg PO BID 10/27/22 09/27/23 History Empagliflozin [Jardiance] 10 mg PO DAILY 11/21/22 09/27/23 History Apixaban [Eliquis] 2.5 mg PO BID #60 tab 12/02/22 09/27/23 Rx Anastrozole 1 mg PO DAILY 05/13/23 09/27/23 History Metoprolol Tartrate [Lopressor] 50 mg PO BID 05/13/23 09/27/23 History gemfibroziL [Lopid] 600 mg PO BID 05/13/23 09/27/23 History Furosemide [Lasix] 80 mg PO DAILY 09/27/23 09/27/23 History INSULIN ASPART (NovoLOG) [NovoLOG See Protocol SQ TID 09/27/23 09/27/23 History (formulary)] Allergies Allergy/AdvReac Type Severity Reaction Status Date / Time ciprofloxacin [From Cipro] Allergy Swelling Verified 09/27/23 12:37 diphenhydramine Allergy Swelling Verified 09/27/23 12:37 [From Benadryl] Influenza Virus Vaccines Allergy Anaphylaxis Verified 09/27/23 12:37 iodine Allergy Swelling Verified 09/27/23 12:37 propoxyphene Allergy Swelling Verified 09/27/23 12:37 [From Darvocet-N] red dye Allergy Swelling Verified 09/27/23 12:37 Sulfa (Sulfonamide Allergy Anaphylaxis, Verified 09/27/23 12:37 Antibiotics) heart rate up sulfacetamide Allergy Swelling Verified 09/27/23 12:37 [From Sulfamide] yellow dye Allergy Swelling Verified 09/27/23 12:37 Physical Exam Vitals: Vital Signs Temp Pulse Resp BP BP Pulse Ox 10/03/23 08:13 100 10/03/23 07:10 98.3 F 80 17 94/59 100 10/03/23 02:39 98.4 F 83 18 90/52 99 10/02/23 20:56 98.5 F 81 16 113/74 100 10/02/23 17:45 98.2 F 80 18 106/66 100 10/02/23 14:00 97.6 F 78 16 93/60 100 Intake and Output 10/02/23 10/03/23 10/03/23 22:59 06:59 14:59 Intake Total 180 Output Total 400 Balance -400 180 Intake: Oral 180 Output: Urine 400 Other: Voiding Method Diaper # Voids 1 Weight 125.5 kg 126.5 kg Results CBC & Chem 7: 10/02/23 04:06 09/30/23 07:42 Labs: Abnormal Lab Results - Last 24 Hours (Table) 10/02/23 10/02/23 10/02/23 Range/Units 11:13 16:54 20:40 POC Glucose (mg/dL) 229 H 250 H 217 H (70-110) mg/dL 10/03/23 Range/Units 05:32 POC Glucose (mg/dL) 199 H (70-110) mg/dL Microbiology - Last 24 Hours (Table) 09/27/23 11:20 Blood Culture - Final Blood 09/27/23 11:05 Blood Culture - Final Blood Assessment and Plan (1) Left buttock abscess Current Visit: Yes Status: Acute Code(s): L02.31 - CUTANEOUS ABSCESS OF BUTTOCK SNOMED Code(s): 41452174 (2) Type 2 diabetes mellitus with other skin complications Current Visit: Yes Status: Acute Code(s): E11.628 - TYPE 2 DIABETES MELLITUS WITH OTHER SKIN COMPLICATIONS SNOMED Code(s): 24874737
[2023-10-03 12:23] LABS: Glucose,Whole Blood 249 mg/dL (70-110)
--- NOTE | 2023-10-03 13:23 | P.PN ---
Subjective Progress Note Date: 10/03/23 patient is a 57-year-old lady with past medical history significant for diabetes mellitus type 2, chronic kidney disease stage III, history of COPD, chronic hypoxic respiratory failure on 4 L of oxygen, history of pulm embolism October 2022, previous history of DVT with s/p IVC filter placement in November 2022, history of lupus, anxiety, morbid obesity, history of vaginal bleeding, history of gallstones presents to the emergency department for feeling not for the last few days. Patient stated that her normally takes care of of her and he was recently admitted to the hospital so there was no one to take care of her at home. Patient has not been eating and drinking much at home. Patient stated that she was also having fevers at home. There was no complaint of chest pain or shortness of breath. Patient was complaining of nausea but no vomiting. Patient has history of endometrial cancer and does get vaginal bleeding. Because of the symptoms, patient came to the ER Initial lab work done in the ER showed WBC 27.8, hemoglobin 10.2, platelet count 449, sodium 130, potassium 5, BUN 58, creatinine 2, glucose 604, AST 11, ALT 8, UA positive for leukocyte Estrace, urine WBC more than 192 Chest x-ray done in the ER showed no acute cardiopulmonary process Patient admitted to internal medicine service 09/27. Patient seen and examined. Patient was started on insulin drip overnight, currently blood sugars are better controlled. Patient will be switched back to subcu insulin. Complaining abdominal pain. No nausea or vomiting 09/28. Patient seen and examined. Blood work done showed WBC 28.5, hemoglobin 8.7, platelet count 428, sodium 135, potassium 4.4, BUN 63, creatinine 2.49, g lucose 144. Still having hematuria. Complaining of abdominal pain. 09/29. Patient seen and examined. 09/30. Patient seen examined. Still complaining abdominal pain. Still has bleeding from her genital area which is her baseline. Denies any fever or chills. 10/01. Patient seen and examined. Continues to have abdominal pain. Discussed with her in detail regarding her CT scan that there was nothing in abdominal to explain her pain. Patient is concerned about her history of uterine cancer. Still having on and off vagina bleeding. 10/02. Patient seen and examined. Continues to complain of abdominal pain. Urine culture was growing Shelly, patient currently on Eraxis. Patient has s welling on left buttock, painful, red in color. REVIEW OF SYSTEMS: CONSTITUTIONAL: No fever, no malaise,. CARDIOVASCULAR: No chest pain, no palpitations, no syncope. PULMONARY: No shortness of breath, no cough, GASTROINTESTINAL: As mentioned above NEUROLOGICAL: No headaches, no weakness, PHYSICAL EXAMINATION: GENERAL: The patient is alert and oriented x3, not in any acute distress. Ill looking HEENT: Pupils are round and equally reacting to light. EOMI. No scleral icterus. No conjunctival pallor. Normocephalic, atraumatic. No pharyngeal erythema. No thyromegaly. CARDIOVASCULAR: S1 and S2 present. No murmurs, rubs, or gallops. PULMONARY: Chest is clear to auscultation, no wheezing or crackles. ABDOMEN: Soft, nontender, nondistended, normoactive bowel sounds. No palpable organomegaly. MUSCULOSKELETAL: No joint swelling or deformity. EXTREMITIES: No cyanosis, clubbing, or pedal edema. NEUROLOGICAL: Gross neurological examination did not reveal any focal deficits. SKIN: Swelling and redness left buttock Assessment and plan Sepsis UTI Left buttock abscess Hyperglycemia Chronic kidney disease stage IV History of pulmonary embolism S/p IVC filter in place Chronic hypoxic respiratory failure on 4 L of oxygen History of COPD not in exacerbation Disease mellitus type II History of uterine cancer Monitor vital signs Monitor CBC Monitor CMP Continue telemetry monitoring Follow-up on blood cultures follow urine culture Continue IV Eraxis Continue Eliquis, Lopressor Continue pain management Monitor blood sugar levels, continue Levemir 10 units twice a day and subcu insulin sliding scale ID following Consult oncology Consult surgery for I&D for left buttock abscess Labs and medication were reviewed.. Continue same treatment. Continue with symptomatic treatment. Resume home medication. Monitor labs and vitals. DVT and GI prophylaxis. Further recommendations as per clinical course of the patient Dictation was produced using [employer] dictation software. please excuse any grammatical, word or spelling errors. Objective - Vital Signs Vital signs: Vital Signs Temp 98.3 F 10/03/23 07:10 Pulse 80 10/03/23 07:10 Resp 17 10/03/23 07:10 BP 94/59 10/03/23 07:10 Pulse Ox 100 10/03/23 08:13 FiO2 Intake & Output 10/02/23 10/03/23 10/03/23 18:59 06:59 18:59 Intake Total 180 Output Total 400 Balance -400 180 Weight 125.5 kg 126.5 kg Intake: Oral 180 Output: Urine 400 Other: Voiding Method Diaper Diaper # Voids 1 - Labs CBC & Chem 7: 10/02/23 04:06 09/30/23 07:42 Labs: Abnormal Lab Results - Last 24 Hours (Table) 10/02/23 10/02/23 10/02/23 Range/Units 11:13 16:54 20:40 POC Glucose (mg/dL) 229 H 250 H 217 H (70-110) mg/dL 10/03/23 Range/Units 05:32 POC Glucose (mg/dL) 199 H (70-110) mg/dL Microbiology - Last 24 Hours (Table) 09/27/23 11:20 Blood Culture - Final Blood 09/27/23 11:05 Blood Culture - Final Blood
[2023-10-03] MEDS: DAPTOmycin 350 MG in SODIUM CHLORIDE 0.9% 50 ML IVPB SCH (16:19)
--- NOTE | 2023-10-03 16:36 | US ---
EXAMINATION TYPE: US transvaginal DATE OF EXAM: 10/03/2023 Exam done portable COMPARISON: CT 2023 CLINICAL INDICATION: Female, 58 years old with history of hx endometrial cancer, vaginal bleeding; TECHNIQUE: Transvaginal 1. Uterus: limited visualization, unable to discern borders 2. Endometrium: not seen 3. Right Ovary: not seen 4. Left Ovary: not seen 5. Bilateral Adnexa: visualized portions appear wnl 6. Posterior cul-de-sac: visualized portions appear wnl Extremely difficult study due to morbidly obese patient, patient uncooperative and unable to move f or correct positioning, patient did not tolerate exam well Extremely limited exam, unable to clearly visualize uterus and endometrium and bilateral ovaries no t seen IMPRESSION: Limited examination with limited visualization of the uterus and endometrium. There is also nonvisual ization of the ovaries.
--- NOTE | 2023-10-03 17:29 | P.GSCN ---
History of Present Illness Consult date: 10/03/23 Reason for Consult: Left buttock abscess History of present illness: 58-year-old female seen in consult for abscess left buttocks. Patient states this started off much smaller. Becoming more and more painful. Wound care service saw her earlier today and abscess left buttock was identified and surgical consult was advised. Patient is nonambulatory. She is obese with a BMI of 45. Uses a wheelchair. Patient has significant leukocytosis. She has had some low-grade fevers. Review of Systems The patient denies any acute changes in vision or hearing, no dysphagia or odynophagia, no chest pain or shortness of breath, no dysuria or hematuria, no headache, no runny nose, no rectal bleeding or melena, no unexplained weight loss Past Medical History Past Medical History: Cancer, COPD, Diabetes Mellitus, Deep Vein Thrombosis (DVT), Hypertension, Renal Disease, Rheumatoid Arthritis (RA), Thyroid Disorder Additional Past Medical History / Comment(s): O2 @ 4L. SLE LUPUS. STAGE 3 KIDNEY DISEASE. Leukemia, GRAVES DZ , kidney stones, gout, Uterine cancer (no surgery, radiation only) History of Any Multi-Drug Resistant Organisms: Other MDRO Past Surgical History: Cholecystectomy Additional Past Surgical History / Comment(s): BILATERAL ARTHROSCOPY KNEES. D & C (MISCARRIAGES). Past Anesthesia/Blood Transfusion Reactions: No Reported Reaction Past Psychological History: Anxiety Smoking Status: Never smoker Past Alcohol Use History: None Reported Past Drug Use History: None Reported - Past Family History Mother Family Medical History: Congestive Heart Failure (CHF), Diabetes Mellitus Father Family Medical History: Congestive Heart Failure (CHF), Dialysis, Hypertension Medications and Allergies Home Medications Medication Instructions Recorded Confirmed Type Montelukast [Singulair] 10 mg PO DAILY 01/09/17 09/27/23 History allopurinoL [Zyloprim] 100 mg PO BID 01/21/22 09/27/23 History Atorvastatin [Lipitor] 10 mg PO DAILY 02/15/22 09/27/23 History Hydroxychloroquine Sulfate 200 mg PO BID 04/13/22 09/27/23 History [Plaquenil] hydrOXYzine HCL [Atarax] 25 mg PO QID 04/13/22 09/27/23 History FLUoxetine HCL [PROzac] 20 mg PO BID 10/27/22 09/27/23 History Pantoprazole [Protonix] 40 mg PO BID 10/27/22 09/27/23 History Empagliflozin [Jardiance] 10 mg PO DAILY 11/21/22 09/27/23 History Apixaban [Eliquis] 2.5 mg PO BID #60 tab 12/02/22 09/27/23 Rx Anastrozole 1 mg PO DAILY 05/13/23 09/27/23 History Metoprolol Tartrate [Lopressor] 50 mg PO BID 05/13/23 09/27/23 History gemfibroziL [Lopid] 600 mg PO BID 05/13/23 09/27/23 History Furosemide [Lasix] 80 mg PO DAILY 09/27/23 09/27/23 History INSULIN ASPART (NovoLOG) [NovoLOG See Protocol SQ TID 09/27/23 09/27/23 History (formulary)] Allergies Allergy/AdvReac Type Severity Reaction Status Date / Time ciprofloxacin [From Cipro] Allergy Swelling Verified 09/27/23 12:37 diphenhydramine Allergy Swelling Verified 09/27/23 12:37 [From Benadryl] Influenza Virus Vaccines Allergy Anaphylaxis Verified 09/27/23 12:37 iodine Allergy Swelling Verified 09/27/23 12:37 propoxyphene Allergy Swelling Verified 09/27/23 12:37 [From Darvocet-N] red dye Allergy Swelling Verified 09/27/23 12:37 Sulfa (Sulfonamide Allergy Anaphylaxis, Verified 09/27/23 12:37 Antibiotics) heart rate up sulfacetamide Allergy Swelling Verified 09/27/23 12:37 [From Sulfamide] yellow dye Allergy Swelling Verified 09/27/23 12:37 Surgical - Exam Vital Signs Temp Pulse Resp BP Pulse Ox 98.2 F 113 H 20 122/76 100 09/27/23 07:56 09/27/23 07:56 09/27/23 07:56 09/27/23 07:56 09/27/23 07:56 Physical exam: General: Well-developed, well-nourished, obesity noted, laying on her right-hand side HEENT: Normocephalic, sclerae nonicteric Abdomen: Nontender, nondistended Extremities: Left buttock with area of induration and tenderness approximately 10 x 15 cm, area of erythema approximately 8 x 8 cm with central fluctuance, small superficial skin breakdown with a small amount of drainage noted Neuro: Alert and oriented Results - Labs 10/02/23 04:06 09/30/23 07:42 Abnormal Lab Results - Last 24 Hours (Table) 10/02/23 10/03/23 10/03/23 Range/Units 20:40 05:32 12:21 POC Glucose (mg/dL) 217 H 199 H 249 H (70-110) mg/dL Microbiology - Last 24 Hours (Table) 09/27/23 11:20 Blood Culture - Final Blood 09/27/23 11:05 Blood Culture - Final Blood Assessment and Plan (1) Left buttock abscess Narrative/Plan: 58-year-old female with left buttock abscess. Will schedule for incision and drainage left buttock abscess. Risks of bleeding, infection, chronic wound formation, poor wound healing, progression of infection or wound, progressive sepsis all reviewed. She understands and wishes to proceed. Current Visit: Yes Status: Acute Code(s): L02.31 - CUTANEOUS ABSCESS OF BUTTOCK SNOMED Code(s): 55297705
[2023-10-03] MEDS: MORPHINE SULFATE 4 MG/ML SYRINGE IVP PRN (17:36)
[2023-10-03 17:41] LABS: Glucose,Whole Blood 241 mg/dL (70-110)
--- NOTE | 2023-10-03 18:13 | CT ---
EXAMINATION TYPE: CT chest wo con DATE OF EXAM: 10/03/2023 COMPARISON: 03/26/2023 HISTORY: Hx endometrial cancer, r/o mets. CT DLP: [address] of the chest was performed with lung and mediastinal window settings submitted. The la ck of contrast limits evaluation of the vascular, mediastinal and parenchymal structures including th e upper abdomen. LUNGS: The lungs are clear and free of infiltrate. No atelectasis. No pulmonary nodule or mass is de tected. No pleural effusion. No CT evidence of interstitial lung disease. MEDIASTINUM/KIM: Thoracic aorta is of normal caliber with limited evaluation given lack of contrast . The heart is not enlarged. No evidence for mediastinal mass. No lymph nodes greater than 1cm. UPPER ABDOMEN: No significant abnormality is seen. OTHER: No significant other abnormality. IMPRESSION: 1. No CT evidence to suggest metastatic disease on this unenhanced study to the chest.
[2023-10-03 21:51] LABS: Glucose,Whole Blood 225 mg/dL (70-110)
--- NOTE | 2023-10-03 21:51 | P.CONS ---
History of Present Illness - Reason for Consult Consult date: 10/03/23 hx endometrial cancer Requesting physician: Tom Valdivia - Chief Complaint nausea, vaginal bleeding - History of Present Illness Patient is a 58-year-old female with an extensive health history. We have been consulted for hx of endometrial cancer. History of endometrioid well- differentiated FIGO 1 adenocarcinoma (clinically stage I) being treated by Dr. Euceda at [facility]. She was started on Megace 40 mg twice daily for treatment of her endometrial adenocarcinoma as she has been deemed not to be a candidate for surgery due to multiple medical comorbidities. There was a delay in initiating radiation therapy due to multiple admissions for issues including DVT, UTI and left femur fracture requiring ORIF with IM nail placement. She was discharged on 04/10/2022 on therapeutic Eliquis and Megace 40 mg twice daily. She was evaluated by Dr. Bradford patient was not a candidate for radiation therapy. Patient was admitted in 10/2022, and was diagnosed with PE and was restarted on Eliquis. Patient had previously been on Eliquis for DVT but was taken off due to vaginal bleeding at that time. Patient was then readmitted in November 2022 for vaginal bleeding. Megace was subsequently discontinued. Since that admit, she has continued f/u with Dr. Euceda, last seeing him in 05/2023, but has been unable to f/u since, due to no transportation and has been wheelchair bound. Since the last time our service seen her in consult in 11/2022, she has been started on Arimidex. Unfortunately, she is still not a surgical candidate, and reports she has not followed up with radiation oncology, as she "has been too sick." Patient presented to the emergency room for nausea, not feeling well and worsening vaginal bleeding. Patient states over the last 1 month her vaginal bleeding began to worsen states she is saturating approximately 3 briefs daily and is passing clots. Continues on eliquis 2.5 BID due to hx of DVT and PE. On admission chest x-ray revealed no acute cardiopulmonary processes. CT abdomen pelvis without contrast showed no suspicious abnormalities to account for patient's abdominal pain. IUD noted within the lower portion of the uterine body. Uterus appears somewhat bulky and adnexa is unremarkable. During admission patient was noted to have a Tmax of 101.5, afebrile x 2 days. Patient also reporting sacral pressure ulcer, wound care following, concern for abscess, surgery consulted. Urine culture positive for Shelly albicans. Antifungal has been started. Blood cultures thus far negative. CBC revealing leukocytosis with WBC 25.8, hemoglobin 8.6, MCV 92.7, platelets 473,000. Creatinine 2.5, GFR 22. Bilirubin, AST, ALT WNL. ALP mildly elevated at 174. Review of Systems 10 point ROS is negative except as stated in the HPI Past Medical History Past Medical History: Cancer, COPD, Diabetes Mellitus, Deep Vein Thrombosis (DVT), Hypertension, Renal Disease, Rheumatoid Arthritis (RA), Thyroid Disorder Additional Past Medical History / Comment(s): O2 @ 4L. SLE LUPUS. STAGE 3 KIDNEY DISEASE. Leukemia, GRAVES DZ , kidney stones, gout, Uterine cancer (no surgery, radiation only) History of Any Multi-Drug Resistant Organisms: Other MDRO Past Surgical History: Cholecystectomy Additional Past Surgical History / Comment(s): BILATERAL ARTHROSCOPY KNEES. D & C (MISCARRIAGES). Past Anesthesia/Blood Transfusion Reactions: No Reported Reaction Past Psychological History: Anxiety Smoking Status: Never smoker Past Alcohol Use History: None Reported Past Drug Use History: None Reported - Past Family History Mother Family Medical History: Congestive Heart Failure (CHF), Diabetes Mellitus Father Family Medical History: Congestive Heart Failure (CHF), Dialysis, Hypertension Medications and Allergies Home Medications Medication Instructions Recorded Confirmed Type Montelukast [Singulair] 10 mg PO DAILY 01/09/17 09/27/23 History allopurinoL [Zyloprim] 100 mg PO BID 01/21/22 09/27/23 History Atorvastatin [Lipitor] 10 mg PO DAILY 02/15/22 09/27/23 History Hydroxychloroquine Sulfate 200 mg PO BID 04/13/22 09/27/23 History [Plaquenil] hydrOXYzine HCL [Atarax] 25 mg PO QID 04/13/22 09/27/23 History FLUoxetine HCL [PROzac] 20 mg PO BID 10/27/22 09/27/23 History Pantoprazole [Protonix] 40 mg PO BID 10/27/22 09/27/23 History Empagliflozin [Jardiance] 10 mg PO DAILY 11/21/22 09/27/23 History Apixaban [Eliquis] 2.5 mg PO BID #60 tab 12/02/22 09/27/23 Rx Anastrozole 1 mg PO DAILY 05/13/23 09/27/23 History Metoprolol Tartrate [Lopressor] 50 mg PO BID 05/13/23 09/27/23 History gemfibroziL [Lopid] 600 mg PO BID 05/13/23 09/27/23 History Furosemide [Lasix] 80 mg PO DAILY 09/27/23 09/27/23 History INSULIN ASPART (NovoLOG) [NovoLOG See Protocol SQ TID 09/27/23 09/27/23 History (formulary)] Allergies Allergy/AdvReac Type Severity Reaction Status Date / Time ciprofloxacin [From Cipro] Allergy Swelling Verified 09/27/23 12:37 diphenhydramine Allergy Swelling Verified 09/27/23 12:37 [From Benadryl] Influenza Virus Vaccines Allergy Anaphylaxis Verified 09/27/23 12:37 iodine Allergy Swelling Verified 09/27/23 12:37 propoxyphene Allergy Swelling Verified 09/27/23 12:37 [From Darvocet-N] red dye Allergy Swelling Verified 09/27/23 12:37 Sulfa (Sulfonamide Allergy Anaphylaxis, Verified 09/27/23 12:37 Antibiotics) heart rate up sulfacetamide Allergy Swelling Verified 09/27/23 12:37 [From Sulfamide] yellow dye Allergy Swelling Verified 09/27/23 12:37 Physical Exam Vitals: Vital Signs Temp Pulse Resp BP BP Pulse Ox 10/03/23 08:13 100 10/03/23 07:10 98.3 F 80 17 94/59 100 10/03/23 02:39 98.4 F 83 18 90/52 99 10/02/23 20:56 98.5 F 81 16 113/74 100 10/02/23 17:45 98.2 F 80 18 106/66 100 10/02/23 14:00 97.6 F 78 16 93/60 100 Intake and Output 10/02/23 10/03/23 10/03/23 22:59 06:59 14:59 Intake Total 180 Output Total 400 Balance -400 180 Intake: Oral 180 Output: Urine 400 Other: Voiding Method Diaper Diaper External Catheter # Voids 1 Weight 125.5 kg 126.5 kg - Constitutional General appearance: morbidly obese, no acute distress - EENT Eyes: anicteric sclerae, EOMI ENT: hearing grossly normal - Respiratory Respiratory: bilateral: CTA - Cardiovascular Rhythm: regular - Gastrointestinal General gastrointestinal: tenderness Localized gastrointestinal: tender: diffuse - Integumentary Integumentary: no cyanotic, no jaundiced - Musculoskeletal Musculoskeletal: generalized weakness - Psychiatric Psychiatric: A&O x's 3 Results CBC & Chem 7: 10/02/23 04:06 09/30/23 07:42 Labs: Abnormal Lab Results - Last 24 Hours (Table) 10/02/23 10/02/23 10/03/23 Range/Units 16:54 20:40 05:32 POC Glucose (mg/dL) 250 H 217 H 199 H (70-110) mg/dL 10/03/23 Range/Units 12:21 POC Glucose (mg/dL) 249 H (70-110) mg/dL Microbiology - Last 24 Hours (Table) 09/27/23 11:20 Blood Culture - Final Blood 09/27/23 11:05 Blood Culture - Final Blood Abdominal x-ray: report reviewed CT scan - abdomen: report reviewed CT scan - pelvis: report reviewed Assessment and Plan (1) Leukocytosis Current Visit: Yes Status: Acute Priority: Medium Code(s): D72.829 - ELEVATED WHITE BLOOD CELL COUNT, UNSPECIFIED SNOMED Code(s): 771976611 (2) UTI (urinary tract infection) Current Visit: Yes Status: Acute Priority: Medium Code(s): N39.0 - URINARY TRACT INFECTION, SITE NOT SPECIFIED SNOMED Code(s): 83023224 (3) Vaginal bleeding Current Visit: Yes Status: Acute Priority: High Code(s): N93.9 - ABNORMAL UTERINE AND VAGINAL BLEEDING, UNSPECIFIED SNOMED Code(s): 809570104 (4) Endometrial adenocarcinoma Current Visit: No Status: Chronic Priority: High Code(s): C54.1 - MALIGNANT NEOPLASM OF ENDOMETRIUM SNOMED Code(s): 838467932 (5) Anemia, blood loss Current Visit: Yes Status: Acute Priority: High Code(s): D50.0 - IRON DEFICIENCY ANEMIA SECONDARY TO BLOOD LOSS (CHRONIC) SNOMED Code(s): 590417280 (6) Left buttock abscess Current Visit: Yes Status: Acute Code(s): L02.31 - CUTANEOUS ABSCESS OF BUTTOCK SNOMED Code(s): 78143897 Plan: Endometrial adenocarcinoma -History of well-differentiated FIGO score 1, biopsy from January 2022. CT CAP on 03/26/23 showed no evidence of metastatic disease -Patient has not had radiation, and is not a surgical candidate because of comorbid conditions -Follows with Dr. Euceda, currently on treatment with Arimidex -Unfortunately, has not had f/u with Dr. Euceda since 05/2023 due to social dynamics, lack of transportation -Patient requesting that she wants to receive care locally. Unfortunately [facility] is not local. Discussed with patient that her PS is poor and that she would need to be stronger and be able to make f/u appts to undergo outpt treatment. Re commended rehab may be good option so she can get stronger, however, she strongly opposed this recommendation. PT/OT has been consulted inpt. I have placed consult for home care services and SW consult for assistance with transportation services -CT abdomen pelvis without contrast showed no suspicious abnormalities to account for patient's abdominal pain. IUD noted within the lower portion of the uterine body. Uterus appears somewhat bulky and adnexa is unremarkable. -CT chest ordered for staging -Will speak to rad onc regarding possible palliative RT for worsening vaginal bleeding -Will also request records from Dr. Euceda to review his recommendations/tx plan Vaginal bleeding: -Secondary to untreated disease -CT abdomen pelvis showed no suspicious abnormalities. IUD noted within the lower portion of the uterine body. Uterus appears somewhat bulky and adnexa is unremarkable -Transvaginal US ordered -DIRECTOR OF COLLECTIONS AND ARCHIVES consulted Anemia -2/2 to above, exacerbated by anticoagulation and acute infection/inflammation -Hgb 8.6, MCV 92.7, plts 473,000 -Anemia workup ordered -Will await DIRECTOR OF COLLECTIONS AND ARCHIVES recommendations regarding vaginal bleeding/anticoagulation -Continue to monitor CBC, transfuse for hgb less than 7
--- NOTE | 2023-10-04 07:49 | P.OBCN ---
History of Present Illness Consult date: 10/04/23 Reason for consult: other (post-menopausal bleeding) History of present illness: Ms. Diaz is a 58 year old female with a past medical history significant for poorly-controlled diabetes mellitus type 2, stage 3 chronic kidney disease, COPD, chronic hypoxic respiratory failure on 4L of oxygen, history of PE in October 2022, history of DVT s/p IVC filter placement November 2022, lupus, anxiety, class 3 obesity, congestive heart failure, hypothyroidism, and endometrial cancer. She presented to the hospital several days ago with complaints of n ausea, feeling unwell, and continued vaginal bleeding. The patient is on Eliquis 2.5 BID due to her history of VTE. She follows with Dr. Euceda at [facility] for endometrioid well-differentiated FIGO 1 adenocarcinoma (clinically stage I). She has a Mirena IUD and takes Arimidex as treatment because she is not a candidate for surgery or radiation at this time, given her multiple comorbidites. The [facility] has been unable to follow up with Dr. Euceda since May of 2023 because she is wheelchair bound, has transportation difficulties, and "has been too sick." The patient also has a sacral pressure ulcer for which she will be undergoing I&D with general surgery. During this admission, the patient's hemoglobin has remained stable from 8.6 to 9 over the past 4 days. Vital signs are stable. She was febrile at the beginning of her admission. Blood cultures have been negative. urine culture was positive for fang albicans and she was started on an antifungal. Leukocytosis of [address] of the abdomen was negative for acute process, uterus is noted to be bulky. CT Chest is negative for metastatic disease. TVUS is very limited due to body habitus and poor patient positioning. OBGYN history: menarche age 12, , menopause age 48, no history of hormone replacement therapy prior to diagnosis of endometrial cancer Past Medical History Past Medical History: Cancer, COPD, Diabetes Mellitus, Deep Vein Thrombosis (DVT), Hypertension, Renal Disease, Rheumatoid Arthritis (RA), Thyroid Disorder Additional Past Medical History / Comment(s): O2 @ 4L. SLE LUPUS. STAGE 3 KIDNEY DISEASE. Leukemia, GRAVES DZ , kidney stones, gout, Uterine cancer (no surgery, radiation only) History of Any Multi-Drug Resistant Organisms: Other MDRO Past Surgical History: Cholecystectomy Additional Past Surgical History / Comment(s): BILATERAL ARTHROSCOPY KNEES. D & C (MISCARRIAGES). Past Anesthesia/Blood Transfusion Reactions: No Reported Reaction Past Psychological History: Anxiety Smoking Status: Never smoker Past Alcohol Use History: None Reported Past Drug Use History: None Reported - Past Family History Mother Family Medical History: Congestive Heart Failure (CHF), Diabetes Mellitus Father Family Medical History: Congestive Heart Failure (CHF), Dialysis, Hypertension Medications and Allergies Home Medications Medication Instructions Recorded Confirmed Type Montelukast [Singulair] 10 mg PO DAILY 01/09/17 09/27/23 History allopurinoL [Zyloprim] 100 mg PO BID 01/21/22 09/27/23 History Atorvastatin [Lipitor] 10 mg PO DAILY 02/15/22 09/27/23 History Hydroxychloroquine Sulfate 200 mg PO BID 04/13/22 09/27/23 History [Plaquenil] hydrOXYzine HCL [Atarax] 25 mg PO QID 04/13/22 09/27/23 History FLUoxetine HCL [PROzac] 20 mg PO BID 10/27/22 09/27/23 History Pantoprazole [Protonix] 40 mg PO BID 10/27/22 09/27/23 History Empagliflozin [Jardiance] 10 mg PO DAILY 11/21/22 09/27/23 History Apixaban [Eliquis] 2.5 mg PO BID #60 tab 12/02/22 09/27/23 Rx Anastrozole 1 mg PO DAILY 05/13/23 09/27/23 History Metoprolol Tartrate [Lopressor] 50 mg PO BID 05/13/23 09/27/23 History gemfibroziL [Lopid] 600 mg PO BID 05/13/23 09/27/23 History Furosemide [Lasix] 80 mg PO DAILY 09/27/23 09/27/23 History INSULIN ASPART (NovoLOG) [NovoLOG See Protocol SQ TID 09/27/23 09/27/23 History (formulary)] Allergies Allergy/AdvReac Type Severity Reaction Status Date / Time ciprofloxacin [From Cipro] Allergy Swelling Verified 09/27/23 12:37 diphenhydramine Allergy Swelling Verified 09/27/23 12:37 [From Benadryl] Influenza Virus Vaccines Allergy Anaphylaxis Verified 09/27/23 12:37 iodine Allergy Swelling Verified 09/27/23 12:37 propoxyphene Allergy Swelling Verified 09/27/23 12:37 [From Darvocet-N] red dye Allergy Swelling Verified 09/27/23 12:37 Sulfa (Sulfonamide Allergy Anaphylaxis, Verified 09/27/23 12:37 Antibiotics) heart rate up sulfacetamide Allergy Swelling Verified 09/27/23 12:37 [From Sulfamide] yellow dye Allergy Swelling Verified 09/27/23 12:37 Exam Vital Signs Temp Pulse Resp BP Pulse Ox 10/04/23 02:07 97.4 F L 85 19 101/68 100 10/03/23 20:00 84 20 10/03/23 19:34 98.6 F 84 20 92/61 99 10/03/23 14:39 98.5 F 77 18 100/63 100 10/03/23 08:13 100 Intake and Output 10/03/23 10/04/23 10/04/23 22:59 06:59 14:59 Other: Voiding Method Diaper External Catheter # Voids 1 3 Focused physical exam is performed. The patient is sleeping upon entering the room. Breathing is non-labored. Abdomen is soft, non-tender. Extremities non- tender, non-edematous. Results Result Diagrams: 10/02/23 04:06 09/30/23 07:42 Abnormal Lab Results - Last 24 Hours (Table) 10/03/23 10/03/23 10/03/23 Range/Units 12:21 17:40 21:49 POC Glucose (mg/dL) 249 H 241 H 225 H (70-110) mg/dL Microbiology - Last 24 Hours (Table) 10/03/23 12:36 Gram Stain - Preliminary Buttock 09/27/23 11:20 Blood Culture - Final Blood Assessment and Plan Assessment: 58 year old with clinical stage I endometrial cancer with current treatment regimen of Arimidex and Mirena IUD (not a surgical candidate due to comorbidities) who presents with ongoing vaginal bleeding, on Eliquis for history of DVT Plan: Patient with ongoing bleeding due to untreated disease. Would continue eliquis as Hgb has been stable for the past 4 days. Transfuse below 7. Appreciate recommendations from oncology. Time with Patient: Greater than 30 (35 minutes)
[2023-10-04 07:56] LABS: Basophils # (A) 0.2 k/uL (0-0.2); Basophils % (A) 1 %; Eosinophils # (A) 0.7 k/uL (0-0.7); Eosinophils % (A) 3 %; HCT 27.8 % (34.0-46.0); HGB 8.5 gm/dL (11.4-16.0); Hypochromasia Slight; Lymphocytes # (A) 2.4 k/uL (1.0-4.8); Lymphocytes % (A) 11 %; MCH 28.1 pg (25.0-35.0); MCHC 30.6 g/dL (31.0-37.0); MCV 91.8 fL (80.0-100.0); Mean Platelet Volume 8.5; Monocytes # (A) 1.9 k/uL (0-1.0); Monocytes % (A) 8 %; Neutrophils # (A) 16.9 k/uL (1.3-7.7); Neutrophils % (A) 75 %; Platelet Count 527 k/uL (150-450); RBC 3.03 m/uL (3.80-5.40); RDW 13.5 % (11.5-15.5); WBC 22.5 k/uL (3.8-10.6)
[2023-10-04 08:09] LABS: ALT 13 U/L (4-34); AST 18 U/L (14-36); African American GFR (CKD) 26 (>60 ml/min/1.73 sqM); Albumin/Globulin Ratio 0.9; Alkaline Phosphatase 151 U/L (38-126); Anion Gap 9 mmol/L; Blood Urea Nitrogen 71 mg/dL (7-17); Calcium 9.5 mg/dL (8.4-10.2); Carbon Dioxide 17 mmol/L (22-30); Chloride 114 mmol/L (98-107); Globulin 3.3 g/dL; Glucose 148 mg/dL (74-99); Non-African American GFR(CKD) 23 (>60 ml/min/1.73 sqM); Potassium 5.8 mmol/L (3.5-5.1); Sodium 140 mmol/L (137-145); Total Bilirubin 0.3 mg/dL (0.2-1.3); Total Protein 6.3 g/dL (6.3-8.2)
[2023-10-04 08:14] LABS: Glucose,Whole Blood 159 mg/dL (70-110)
[2023-10-04] MEDS ORDERED: LIDOCAINE 1% (10MG/ML) FOR IV START INTRADERMA PRN (08:49)
[2023-10-04] MEDS ORDERED: PROPOFOL 10 MG/ML 20 ML VIAL IV ONE (10:53)
[2023-10-04] MEDS ORDERED: LIDOCAINE 1% INJ 10MG/ML (20 ML MDV) ONE (10:53)
[2023-10-04] MEDS: LACTATED RINGERS 1,000 ML IV ONE (10:53)
[2023-10-04] MEDS ORDERED: SUCCINYLCHOLINE CHLORIDE 200 MG/10 ML VIAL IV ONE (10:53)
[2023-10-04] MEDS ORDERED: fentaNYL (PF) 50 MCG/ML 2 ML AMP ONE (10:53)
[2023-10-04] MEDS: LIDOCAINE 2%-EPI 1:100,000 20 ML VIAL SQ ONE (11:17)
--- NOTE | 2023-10-04 11:27 | P.OP ---
Date of Procedure: 10/04/23 Preoperative Diagnosis: Left Buttock Abscess Postoperative Diagnosis: Left Buttock Abscess Procedure(s) Performed: Incision and Drainage Left Buttock Abscess Anesthesia: MAC Surgeon: Khadar Valle Pathology: none sent Condition: stable Disposition: PACU Description of Procedure: The patient was brought to the operating suite and left in the right lateral decubitus position in her bed. Anesthesia was given and patient was intubated. Patient was prepped and draped in sterile fashion. Timeout was performed. An #11 blade was used to make an incision over the left buttock abscess. A hemostat was used to break up loculations. Cultures were taken. 1 inch iodoform packing was placed in the wound. Sterile dressing was applied. The patient tolerated procedure well and was sent to the PACU in stable condition.
[2023-10-04 12:19] LABS: Glucose,Whole Blood 163 mg/dL (70-110)
--- NOTE | 2023-10-04 13:07 | P.PN ---
Subjective Progress Note Date: 10/04/23 patient is a 57-year-old lady with past medical history significant for diabetes mellitus type 2, chronic kidney disease stage III, history of COPD, chronic hypoxic respiratory failure on 4 L of oxygen, history of pulm embolism October 2022, previous history of DVT with s/p IVC filter placement in November 2022, history of lupus, anxiety, morbid obesity, history of vaginal bleeding, history of gallstones presents to the emergency department for feeling not for the last few days. Patient stated that her normally takes care of of her and he was recently admitted to the hospital so there was no one to take care of her at home. Patient has not been eating and drinking much at home. Patient stated that she was also having fevers at home. There was no complaint of chest pain or shortness of breath. Patient was complaining of nausea but no vomiting. Patient has history of endometrial cancer and does get vaginal bleeding. Because of the symptoms, patient came to the ER Initial lab work done in the ER showed WBC 27.8, hemoglobin 10.2, platelet count 449, sodium 130, potassium 5, BUN 58, creatinine 2, glucose 604, AST 11, ALT 8, UA positive for leukocyte Estrace, urine WBC more than 192 Chest x-ray done in the ER showed no acute cardiopulmonary process Patient admitted to internal medicine service 09/27. Patient seen and examined. Patient was started on insulin drip overnight, currently blood sugars are better controlled. Patient will be switched back to subcu insulin. Complaining abdominal pain. No nausea or vomiting 09/28. Patient seen and examined. Blood work done showed WBC 28.5, hemoglobin 8.7, platelet count 428, sodium 135, potassium 4.4, BUN 63, creatinine 2.49, g lucose 144. Still having hematuria. Complaining of abdominal pain. 09/29. Patient seen and examined. 09/30. Patient seen examined. Still complaining abdominal pain. Still has bleeding from her genital area which is her baseline. Denies any fever or chills. 10/01. Patient seen and examined. Continues to have abdominal pain. Discussed with her in detail regarding her CT scan that there was nothing in abdominal to explain her pain. Patient is concerned about her history of uterine cancer. Still having on and off vagina bleeding. 10/02. Patient seen and examined. Continues to complain of abdominal pain. Urine culture was growing Shelly, patient currently on Eraxis. Patient has s welling on left buttock, painful, red in color. 10/03. Patient seen and examined. Currently n.p.o., going for I&D today. REVIEW OF SYSTEMS: CONSTITUTIONAL: No fever, no malaise,. CARDIOVASCULAR: No chest pain, no palpitations, no syncope. PULMONARY: No shortness of breath, no cough, GASTROINTESTINAL: As mentioned above NEUROLOGICAL: No headaches, no weakness, PHYSICAL EXAMINATION: GENERAL: The patient is alert and oriented x3, not in any acute distress. Ill looking HEENT: Pupils are round and equally reacting to light. EOMI. No scleral icterus. No conjunctival pallor. Normocephalic, atraumatic. No pharyngeal erythema. No thyromegaly. CARDIOVASCULAR: S1 and S2 present. No murmurs, rubs, or gallops. PULMONARY: Chest is clear to auscultation, no wheezing or crackles. ABDOMEN: Soft, nontender, nondistended, normoactive bowel sounds. No palpable organomegaly. MUSCULOSKELETAL: No joint swelling or deformity. EXTREMITIES: No cyanosis, clubbing, or pedal edema. NEUROLOGICAL: Gross neurological examination did not reveal any focal deficits. SKIN: Swelling and redness left buttock Assessment and plan Sepsis UTI Left buttock abscess Hyperglycemia Chronic kidney disease stage IV History of pulmonary embolism S/p IVC filter in place Chronic hypoxic respiratory failure on 4 L of oxygen History of COPD not in exacerbation Diabetes mellitus type II Endometrial adenocarcinoma Monitor vital signs Monitor CBC Monitor CMP Continue telemetry monitoring Follow-up on blood cultures follow urine culture Continue IV Eraxis Continue daptomycin Continue Eliquis, Lopressor Continue pain management Monitor blood sugar levels, continue Levemir 10 units twice a day and subcu in sulin sliding scale ID following Oncology following, they recommended consulting radiation oncology for possible palliative radiation for worsening vaginal bleeding General surgery following, planning I&D for left buttock abscess Labs and medication were reviewed.. Continue same treatment. Continue with symptomatic treatment. Resume home medication. Monitor labs and vitals. DVT and GI prophylaxis. Further recommendations as per clinical course of the patient Dictation was produced using Q[employer]ved dictation software. please excuse any grammatical, word or spelling errors. Objective - Vital Signs Vital signs: Vital Signs Temp 97.4 F L 10/04/23 11:28 Pulse 86 10/04/23 12:31 Resp 16 10/04/23 11:45 BP 99/63 10/04/23 12:31 Pulse Ox 98 10/04/23 12:31 FiO2 Intake & Output 10/03/23 10/04/23 10/04/23 18:59 06:59 18:59 Intake Total 540 300 Output Total 10 Balance 540 290 Intake: IV 300 Oral 540 Output: Estimated Blood Loss 10 Other: Voiding Method Diaper Diaper Diaper External Catheter External Catheter External Catheter # Voids 1 3 - Labs CBC & Chem 7: 10/04/23 07:30 10/04/23 06:34 Labs: Abnormal Lab Results - Last 24 Hours (Table) 10/03/23 10/03/23 10/04/23 Range/Units 17:40 21:49 06:34 WBC (3.8-10.6) k/uL RBC (3.80-5.40) m/uL Hgb (11.4-16.0) gm/dL Hct (34.0-46.0) % MCHC (31.0-37.0) g/dL Plt Count (150-450) k/uL Neutrophils # (1.3-7.7) k/uL Monocytes # (0-1.0) k/uL Potassium 5.8 H (3.5-5.1) mmol/L Chloride 114 H (98-107) mmol/L Carbon Dioxide 17 L (22-30) mmol/L BUN 71 H (7-17) mg/dL Creatinine 2.30 H (0.52-1.04) mg/dL Glucose 148 H (74-99) mg/dL POC Glucose (mg/dL) 241 H 225 H (70-110) mg/dL Alkaline Phosphatase 151 H (38-126) U/L Albumin 3.0 L (3.5-5.0) g/dL 10/04/23 10/04/23 10/04/23 Range/Units 07:30 08:13 12:17 WBC 22.5 H (3.8-10.6) k/uL RBC 3.03 L (3.80-5.40) m/uL Hgb 8.5 L (11.4-16.0) gm/dL Hct 27.8 L (34.0-46.0) % MCHC 30.6 L (31.0-37.0) g/dL Plt Count 527 H (150-450) k/uL Neutrophils # 16.9 H (1.3-7.7) k/uL Monocytes # 1.9 H (0-1.0) k/uL Potassium (3.5-5.1) mmol/L Chloride (98-107) mmol/L Carbon Dioxide (22-30) mmol/L BUN (7-17) mg/dL Creatinine (0.52-1.04) mg/dL Glucose (74-99) mg/dL POC Glucose (mg/dL) 159 H 163 H (70-110) mg/dL Alkaline Phosphatase (38-126) U/L Albumin (3.5-5.0) g/dL Microbiology - Last 24 Hours (Table) 10/03/23 12:36 Gram Stain - Preliminary Buttock Wound Culture - Preliminary Presumptive Staph aureus
[2023-10-04 13:34] LABS: % Iron Saturation 11.56 (12.00-45.00)
[2023-10-04] MEDS: DEXAMETHASONE SOD PHOSPHATE 4 MG/ML 1 ML VIAL IV ONE (13:57)
[2023-10-04] MEDS: droPERidol 5 MG/2 ML VIAL IVP ONE (13:57)
[2023-10-04] MEDS: LACTATED RINGERS 1,000 ML IV SCH (13:57)
[2023-10-04 15:40] LABS: African American GFR (CKD) 28 (>60 ml/min/1.73 sqM); Albumin 3.1 g/dL (3.5-5.0); Anion Gap 9 mmol/L; Blood Urea Nitrogen 75 mg/dL (7-17); Calcium 9.2 mg/dL (8.4-10.2); Carbon Dioxide 16 mmol/L (22-30); Chloride 113 mmol/L (98-107); Glucose 259 mg/dL (74-99); Non-African American GFR(CKD) 24 (>60 ml/min/1.73 sqM); Sodium 138 mmol/L (137-145); Total Protein 6.4 g/dL (6.3-8.2)
[2023-10-04 15:41] LABS: ALT 14 U/L (4-34); AST 19 U/L (14-36); Albumin/Globulin Ratio 0.9; Alkaline Phosphatase 149 U/L (38-126); Globulin 3.3 g/dL; Total Bilirubin 0.4 mg/dL (0.2-1.3)
--- NOTE | 2023-10-04 16:03 | P.PN ---
Subjective Progress Note Date: 10/04/23 Principal diagnosis: Reason for follow-up is leukocytosis and UTI Patient is a 58-year-old female with a past medical history significant for diabetes mellitus COPD hypertension history of uterine cancer for the patient has received radiation, presenting to the hospital with weakness generalized bodyaches unable to take care of herself did have a fever positive UA concerning for symptomatic urinary tract infection. Patient is status post drainage of the left gluteal abscess by general surgery on 10/04/2023. On today's evaluation that is 10/04/2023,the patient remains to be afebrile, patient is on room air not requiring supplemental oxygen and denies any shortnes s of breath no chest pain or cough.Patient denies having any nausea or vomiting, no abdominal pain and no diarrhea has been reported, patient complaining of mostly pain to the left foot related postsurgery. Patient white count is down to 22.5, creatinine is 2.30 cultures obtained yesterday growing Staph aureus Objective - Vital Signs Vital signs: Vital Signs Temp 98.1 F 10/04/23 13:20 Pulse 83 10/04/23 13:20 Resp 16 10/04/23 13:20 BP 103/56 10/04/23 13:20 Pulse Ox 99 10/04/23 13:20 FiO2 Intake & Output 10/03/23 10/04/23 10/04/23 18:59 06:59 18:59 Intake Total 540 300 Output Total 10 Balance 540 290 Intake: IV 300 Oral 540 Output: Estimated Blood Loss 10 Other: Voiding Method Diaper Diaper Diaper External Catheter External Catheter External Catheter # Voids 1 3 - Exam GENERAL DESCRIPTION: Middle-aged female lying in bed in no distress RESPIRATORY SYSTEM: Unlabored breathing , decreased breath sounds at bases HEART: S1 S2 regular rate and rhythm , ABDOMEN: Soft , no tenderness, left gluteal area currently dressed - Labs CBC & Chem 7: 10/04/23 07:30 10/04/23 06:34 Labs: Abnormal Lab Results - Last 24 Hours (Table) 10/03/23 10/03/23 10/04/23 Range/Units 17:40 21:49 06:34 WBC (3.8-10.6) k/uL RBC (3.80-5.40) m/uL Hgb (11.4-16.0) gm/dL Hct (34.0-46.0) % MCHC (31.0-37.0) g/dL Plt Count (150-450) k/uL Neutrophils # (1.3-7.7) k/uL Monocytes # (0-1.0) k/uL Potassium 5.8 H (3.5-5.1) mmol/L Chloride 114 H (98-107) mmol/L Carbon Dioxide 17 L (22-30) mmol/L BUN 71 H (7-17) mg/dL Creatinine 2.30 H (0.52-1.04) mg/dL Glucose 148 H (74-99) mg/dL POC Glucose (mg/dL) 241 H 225 H (70-110) mg/dL Iron (50-170) UG/DL TIBC (228-460) UG/DL % Saturation (12.00-45.00) Transferrin (204.0-354.0) mg/dL Ferritin (10.0-291.0) ng/mL Alkaline Phosphatase 151 H (38-126) U/L Albumin 3.0 L (3.5-5.0) g/dL 10/04/23 10/04/23 10/04/23 Range/Units 07:30 07:30 08:13 WBC 22.5 H (3.8-10.6) k/uL RBC 3.03 L (3.80-5.40) m/uL Hgb 8.5 L (11.4-16.0) gm/dL Hct 27.8 L (34.0-46.0) % MCHC 30.6 L (31.0-37.0) g/dL Plt Count 527 H (150-450) k/uL Neutrophils # 16.9 H (1.3-7.7) k/uL Monocytes # 1.9 H (0-1.0) k/uL Potassium (3.5-5.1) mmol/L Chloride (98-107) mmol/L Carbon Dioxide (22-30) mmol/L BUN (7-17) mg/dL Creatinine (0.52-1.04) mg/dL Glucose (74-99) mg/dL POC Glucose (mg/dL) 159 H (70-110) mg/dL Iron 23 L (50-170) UG/DL TIBC 199 L (228-460) UG/DL % Saturation 11.56 L (12.00-45.00) Transferrin 142.0 L (204.0-354.0) mg/dL Ferritin 733.0 H (10.0-291.0) ng/mL Alkaline Phosphatase (38-126) U/L Albumin (3.5-5.0) g/dL 10/04/23 Range/Units 12:17 WBC (3.8-10.6) k/uL RBC (3.80-5.40) m/uL Hgb (11.4-16.0) gm/dL Hct (34.0-46.0) % MCHC (31.0-37.0) g/dL Plt Count (150-450) k/uL Neutrophils # (1.3-7.7) k/uL Monocytes # (0-1.0) k/uL Potassium (3.5-5.1) mmol/L Chloride (98-107) mmol/L Carbon Dioxide (22-30) mmol/L BUN (7-17) mg/dL Creatinine (0.52-1.04) mg/dL Glucose (74-99) mg/dL POC Glucose (mg/dL) 163 H (70-110) mg/dL Iron (50-170) UG/DL TIBC (228-460) UG/DL % Saturation (12.00-45.00) Transferrin (204.0-354.0) mg/dL Ferritin (10.0-291.0) ng/mL Alkaline Phosphatase (38-126) U/L Albumin (3.5-5.0) g/dL Microbiology - Last 24 Hours (Table) 10/03/23 12:36 Gram Stain - Preliminary Buttock Wound Culture - Preliminary Presumptive Staph aureus Assessment and Plan (1) Sepsis Current Visit: Yes Status: Acute Code(s): A41.9 - SEPSIS, UNSPECIFIED ORGAN ISM SNOMED Code(s): 53071512 (2) Allergy to multiple antibiotics Current Visit: Yes Status: Acute Code(s): Z88.1 - ALLERGY STATUS TO OTHER ANTIBIOTIC AGENTS SNOMED Code(s): 185738159 (3) UTI (urinary tract infection) Current Visit: Yes Status: Acute Priority: Medium Code(s): N39.0 - URINARY TRACT INFECTION, SITE NOT SPECIFIED SNOMED Code(s): 33097828 Plan: 1patient presented hospital with sepsis in this patient who did have a fever tachycardia elevated white count did have significantly positive UA likely source of the sepsis patient chest x-ray was negative for any acute infiltrate and no tenderness on abdominal examination to be suspicious for abdominal so urce. 2patient with multiple antibiotic ALLERGIES that would limit the number of antibiotic safe to use. 3renal insufficiency and high risk of nephrotoxicity. 4patient urine culture has been finalized with Shelly albicans patient is covered with Eraxis 5left gluteal abscess local cultures s/p surgical drainage cultures obtained yesterday growing Staph aureus sensitivities pending continue with the daptomycin Dictation was produced using [employer] dictation software. please excuse any grammatical, word or spelling errors. . Time with Patient: Less than 30
--- NOTE | 2023-10-04 16:03 | P.PN ---
Subjective Progress Note Date: 10/03/23 Principal diagnosis: Reason for follow-up is leukocytosis, UTI and left gluteal abscess Patient is a 58-year-old female with a past medical history significant for diabetes mellitus COPD hypertension history of uterine cancer for the patient has received radiation, presenting to the hospital with weakness generalized bodyaches unable to take care of herself did have a fever positive UA concerning for symptomatic urinary tract infection. On today's evaluation that is 10/03/2023,the patient denies any fever or any chills, patient is breathing comfortably on 4 L current oxygen, the patient denies chest pain shortness of breath and no significant cough, patient denies abdominal pain, no nausea vomiting or diarrhea. Patient has been complaining of pain to left foot lately has been diagnosed with an abscess local cultures obtained surgery has been consulted. No CBC was done today Objective - Vital Signs Vital signs: Vital Signs Temp 98.5 F 10/03/23 14:39 Pulse 77 10/03/23 14:39 Resp 18 10/03/23 14:39 BP 100/63 10/03/23 14:39 Pulse Ox 100 10/03/23 14:39 FiO2 Intake & Output 10/02/23 10/03/23 10/03/23 18:59 06:59 18:59 Intake Total 540 Output Total 400 Balance -400 540 Weight 125.5 kg 126.5 kg Intake: Oral 540 Output: Urine 400 Other: Voiding Method Diaper Diaper Diaper External Catheter # Voids 1 - Exam GENERAL DESCRIPTION: Middle-aged female lying in bed in no distress RESPIRATORY SYSTEM: Unlabored breathing , decreased breath sounds at bases HEART: S1 S2 regular rate and rhythm , ABDOMEN: Soft , no tenderness, left gluteal area did have area of induration redness and some purulent drainage which was cultured EXTREMITIES: No edema feet - Labs CBC & Chem 7: 10/04/23 07:30 10/04/23 06:34 Labs: Abnormal Lab Results - Last 24 Hours (Table) 10/02/23 10/02/23 10/03/23 Range/Units 16:54 20:40 05:32 POC Glucose (mg/dL) 250 H 217 H 199 H (70-110) mg/dL 10/03/23 Range/Units 12:21 POC Glucose (mg/dL) 249 H (70-110) mg/dL Microbiology - Last 24 Hours (Table) 09/27/23 11:20 Blood Culture - Final Blood 09/27/23 11:05 Blood Culture - Final Blood Assessment and Plan (1) Sepsis Current Visit: Yes Status: Acute Code(s): A41.9 - SEPSIS, UNSPECIFIED ORGANISM SNOMED Code(s): 30864023 (2) Allergy to multiple antibiotics Current Visit: Yes Status: Acute Code(s): Z88.1 - ALLERGY STATUS TO OTHER ANTIBIOTIC AGENTS SNOMED Code(s): 926697159 (3) UTI (urinary tract infection) Current Visit: Yes Status: Acute Priority: Medium Code(s): N39.0 - URINARY TRACT INFECTION, SITE NOT SPECIFIED SNOMED Code(s): 72189388 (4) Left buttock abscess Current Visit: Yes Status: Acute Code(s): L02.31 - CUTANEOUS ABSCESS OF BUTTOCK SNOMED Code(s): 43510861 Plan: 1patient presented hospital with sepsis in this patient who did have a fever tachycardia elevated white count did have significantly positive UA likely source of the sepsis patient chest x-ray was negative for any acute infiltrate and no tenderness on abdominal examination to be suspicious for abdominal source. 2patient with multiple antibiotic ALLERGIES that would limit the number of antibiotic safe to use. 3renal insufficiency and high risk of nephrotoxicity. 4patient urine culture has been finalized with Shelly albicans patient is covered with Eraxis 5left gluteal abscess local cultures obtained General surgery consulted awaiting I&D patient started on daptomycin while waiting for the culture to finalize Dictation was produced using [employer] dictation software. please excuse any gram matical, word or spelling errors. . Time with Patient: Less than 30
[2023-10-04 16:07] LABS: Potassium 6.5 mmol/L (3.5-5.1)
[2023-10-04 17:17] LABS: Glucose,Whole Blood 307 mg/dL (70-110)
[2023-10-04] MEDS: CALCIUM GLUCONATE IN NACL 1 GM in SALINE 1 100ML.BAG IVPB ONE ×2 (17:20→21:55)
[2023-10-04] MEDS: SODIUM ZIRCONIUM CYCLOSILICATE 10 GM PACKET PO ONE ×2 (17:20→21:57)
[2023-10-04] MEDS: DEXTROSE 50% SYRINGE 50 ML IVP ONE ×2 (17:20→21:56)
[2023-10-04] MEDS: SODIUM BICARB 8.4% 50 ML SYR (1 MEQ/ML) IV ONE ×2 (17:20→21:55)
[2023-10-04] MEDS: INSULIN REGULAR 100 UNIT/ML VIAL (IV) IV ONE ×2 (17:21→21:56)
[2023-10-04 20:28] LABS: Glucose,Whole Blood 388 mg/dL (70-110)
[2023-10-05] MEDS ORDERED: HYDROmorphone 0.5 MG/0.5 ML SYRINGE IVP PRN (07:00)
[2023-10-05] MEDS ORDERED: ONDANSETRON 4 MG/2 ML VIAL IVP PRN (07:00)
[2023-10-05 07:29] LABS: Glucose,Whole Blood 434 mg/dL (70-110)
--- NOTE | 2023-10-05 09:13 | P.PN ---
Subjective Progress Note Date: 10/05/23 Principal diagnosis: Left hip abscess Patient says she feels about 100 times better than she did preoperatively regarding the pain. Still uncomfortable though. Some drainage. No fevers. Cultures show possible staph. Objective - Vital Signs Vital signs: Vital Signs Temp 97.9 F 10/05/23 07:29 Pulse 74 10/05/23 07:29 Resp 20 10/05/23 07:29 BP 117/68 10/05/23 07:29 Pulse Ox 99 10/05/23 07:29 FiO2 Intake & Output 10/04/23 10/05/23 10/05/23 18:59 06:59 18:59 Intake Total 300 Output Total 410 300 Balance -110 -300 Weight 127.5 kg Intake: IV 300 Output: Urine 400 300 Estimated Blood Loss 10 Other: Voiding Method Diaper Diaper External Catheter External Catheter - Exam Left buttock/hip with horizontal incision, packed with iodophor gauze, mild tenderness, less erythema - Labs CBC & Chem 7: 10/04/23 07:30 10/04/23 18:54 Labs: Abnormal Lab Results - Last 24 Hours (Table) 10/04/23 10/04/23 10/04/23 Range/Units 07:30 12:17 14:59 Potassium 6.5 H* (3.5-5.1) mmol/L Chloride 113 H (98-107) mmol/L Carbon Dioxide 16 L (22-30) mmol/L BUN 75 H (7-17) mg/dL Creatinine 2.18 H (0.52-1.04) mg/dL Glucose 259 H (74-99) mg/dL POC Glucose (mg/dL) 163 H (70-110) mg/dL Iron 23 L (50-170) UG/DL TIBC 199 L (228-460) UG/DL % Saturation 11.56 L (12.00-45.00) Transferrin 142.0 L (204.0-354.0) mg/dL Ferritin 733.0 H (10.0-291.0) ng/mL Alkaline Phosphatase 149 H (38-126) U/L Albumin 3.1 L (3.5-5.0) g/dL 10/04/23 10/04/23 10/04/23 Range/Units 17:15 18:54 20:25 Potassium 6.0 H (3.5-5.1) mmol/L Chloride (98-107) mmol/L Carbon Dioxide (22-30) mmol/L BUN (7-17) mg/dL Creatinine (0.52-1.04) mg/dL Glucose (74-99) mg/dL POC Glucose (mg/dL) 307 H 388 H (70-110) mg/dL Iron (50-170) UG/DL TIBC (228-460) UG/DL % Saturation (12.00-45.00) Transferrin (204.0-354.0) mg/dL Ferritin (10.0-291.0) ng/mL Alkaline Phosphatase (38-126) U/L Albumin (3.5-5.0) g/dL 10/05/23 Range/Units 07:27 Potassium (3.5-5.1) mmol/L Chloride (98-107) mmol/L Carbon Dioxide (22-30) mmol/L BUN (7-17) mg/dL Creatinine (0.52-1.04) mg/dL Glucose (74-99) mg/dL POC Glucose (mg/dL) 434 H (70-110) mg/dL Iron (50-170) UG/DL TIBC (228-460) UG/DL % Saturation (12.00-45.00) Transferrin (204.0-354.0) mg/dL Ferritin (10.0-291.0) ng/mL Alkaline Phosphatase (38-126) U/L Albumin (3.5-5.0) g/dL Microbiology - Last 24 Hours (Table) 10/03/23 12:36 Gram Stain - Preliminary Buttock Wound Culture - Preliminary Presumptive Staph aureus Assessment and Plan (1) Left buttock abscess Narrative/Plan: 58-year-old female with abscess left buttock/hip region. Etiology unclear. Cultures noted. Begin local care with Aquacel silver packing every other day. Will follow. Current Visit: Yes Status: Acute Code(s): L02.31 - CUTANEOUS ABSCESS OF BUTTOCK SNOMED Code(s): 19683366
[2023-10-05 09:16] LABS: HCT 25.1 % (37.2-46.3); HGB 7.5 g/dL (12.0-15.0); MCH 27.6 pg (27.0-32.0); MCHC 29.9 g/dL (32.0-37.0); MCV 92.3 FL (80.0-97.0); NRBC Per 100 WBC 0 X 10*3/uL (0.00-0.01); Platelet Count 491 X 10*3/uL (140-440); RBC 2.72 X 10*6/uL (4.10-5.20); RDW 13.1 % (11.5-14.5); WBC 21.56 X 10*3/uL (4.50-10.00)
[2023-10-05 10:02] LABS: ALT 12 U/L (8-44); AST 10 U/L (13-35); Albumin 2.9 g/dL (3.8-4.9); Albumin/Globulin Ratio 0.94 Ratio (1.60-3.17); Alkaline Phosphatase 121 U/L (41-126); BUN/Creat Ratio 32.36 Ratio (12.00-20.00); Blood Urea Nitrogen 80.9 mg/dL (9.0-27.0); Calcium 8.9 mg/dL (8.7-10.3); Carbon Dioxide 19.5 mmol/L (21.6-31.8); Chloride 103 mmol/L (96-109); Globulin 3.1 g/dL (1.6-3.3); Glucose 455 mg/dL (70-110); Potassium 6.2 mmol/L (3.5-5.5); Sodium 133 mmol/L (135-145); Total Bilirubin <0.2 mg/dL (0.3-1.2)
[2023-10-05] MEDS ORDERED: DEXTROSE 50% SYRINGE 50 ML IVP PRN ×2 (10:22)
[2023-10-05 11:15] LABS: Basophils # (M) 0 X 10*3/uL (0.00-0.10); Eosinophils # (M) 0 X 10*3/uL (0.04-0.35); Lymphocytes # (M) 1.94 X 10*3/uL (0.90-5.00); Metamyelocytes % 3 % (0-0); Monocytes # (M) 1.08 X 10*3/uL (0.20-1.00); Myelocytes % 3 % (0-0); Neutrophils # (M) 17.25 X 10*3/uL (1.80-7.70); Neutrophils % (M) 80 %
[2023-10-05 11:26] LABS: Glucose,Whole Blood 377 mg/dL (70-110)
[2023-10-05] MEDS: SODIUM ZIRCONIUM CYCLOSILICATE 10 GM PACKET PO SCH (11:27)
[2023-10-05] MEDS: INSULIN REGULAR 100 UNIT/ML VIAL (IV) IV ONE ×2 (11:27→15:29)
[2023-10-05] MEDS: SODIUM CHLORIDE 0.45% 1,000 ML with SODIUM BICARB (1 MEQ/ML) 100 ML IV SCH (11:57)
[2023-10-05 12:19] LABS: Glucose,Whole Blood 315 mg/dL (70-110)
[2023-10-05] MEDS: DOCUSATE 100 MG CAP PO SCH (13:19)
[2023-10-05] MEDS: INSULIN ASPART (NovoLOG) 100 UNIT/ML VIAL SQ SCH (13:19)
--- NOTE | 2023-10-05 13:46 | P.NPCON ---
History of Present Illness - Reason for Consult acute renal failure, hyperkalemia - History of Present Illness patient is a 58-year-old female with history of type 2 diabetes, chronic kidney disease NKF stage III with lowest serum creatinine around 1.2-1.4 mg/dL in May 2023. A creatinine has been mostly around 1.9-2 mg/dL. Patient has underlying endometrial adenocarcinoma. Patient was supposed to have radiation therapy but has not proceeded with that yet. Currently maintained on Arimidex. Patient was admitted to the hospital with increased weakness and poor oral intake. she was found to have a left gluteal abscess, status post I&D and currently maintained on daptomycin. Blood pressure had been low with systolic in the 90s And 80s. Serum potassium has been elevated and staying around 6 mEq/L. Blood sugar is elevated and staying around 430 to 455 mg/dL. patient has been voiding. She has had vaginal bleeding on and off. Hemoglobin at 7.5 g/dL. no evidence of obstruction on CT of the abdomen on 10/01/2023. Review of Systems as per HPI Past Medical History Past Medical History: Cancer, COPD, Diabetes Mellitus, Deep Vein Thrombosis (DVT), Hypertension, Renal Disease, Rheumatoid Arthritis (RA), Thyroid Disorder Additional Past Medical History / Comment(s): O2 @ 4L. SLE LUPUS. STAGE 3 K IDNEY DISEASE. Leukemia, GRAVES DZ , kidney stones, gout, Uterine cancer (no surgery, radiation only) History of Any Multi-Drug Resistant Organisms: Other MDRO Past Surgical History: Cholecystectomy Additional Past Surgical History / Comment(s): BILATERAL ARTHROSCOPY KNEES. D & C (MISCARRIAGES). Past Anesthesia/Blood Transfusion Reactions: No Reported Reaction Past Psychological History: Anxiety Smoking Status: Never smoker Past Alcohol Use History: None Reported Past Drug Use History: None Reported - Past Family History Mother Family Medical History: Congestive Heart Failure (CHF), Diabetes Mellitus Father Family Medical History: Congestive Heart Failure (CHF), Dialysis, Hypertension Medications and Allergies Home Medications Medication Instructions Recorded Confirmed Type Montelukast [Singulair] 10 mg PO DAILY 01/09/17 09/27/23 History allopurinoL [Zyloprim] 100 mg PO BID 01/21/22 09/27/23 History Atorvastatin [Lipitor] 10 mg PO DAILY 02/15/22 09/27/23 History Hydroxychloroquine Sulfate 200 mg PO BID 04/13/22 09/27/23 History [Plaquenil] hydrOXYzine HCL [Atarax] 25 mg PO QID 04/13/22 09/27/23 History FLUoxetine HCL [PROzac] 20 mg PO BID 10/27/22 09/27/23 History Pantoprazole [Protonix] 40 mg PO BID 10/27/22 09/27/23 History Empagliflozin [Jardiance] 10 mg PO DAILY 11/21/22 09/27/23 History Apixaban [Eliquis] 2.5 mg PO BID #60 tab 12/02/22 09/27/23 Rx Anastrozole 1 mg PO DAILY 05/13/23 09/27/23 History Metoprolol Tartrate [Lopressor] 50 mg PO BID 05/13/23 09/27/23 History gemfibroziL [Lopid] 600 mg PO BID 05/13/23 09/27/23 History Furosemide [Lasix] 80 mg PO DAILY 09/27/23 09/27/23 History INSULIN ASPART (NovoLOG) [NovoLOG See Protocol SQ TID 09/27/23 09/27/23 History (formulary)] Allergies Allergy/AdvReac Type Severity Reaction Status Date / Time ciprofloxacin [From Cipro] Allergy Swelling Verified 09/27/23 12:37 diphenhydramine Allergy Swelling Verified 09/27/23 12:37 [From Benadryl] Influenza Virus Vaccines Allergy Anaphylaxis Verified 09/27/23 12:37 iodine Allergy Swelling Verified 09/27/23 12:37 propoxyphene Allergy Swelling Verified 09/27/23 12:37 [From Darvocet-N] red dye Allergy Swelling Verified 09/27/23 12:37 Sulfa (Sulfonamide Allergy Anaphylaxis, Verified 09/27/23 12:37 Antibiotics) heart rate up sulfacetamide Allergy Swelling Verified 09/27/23 12:37 [From Sulfamide] yellow dye Allergy Swelling Verified 09/27/23 12:37 Physical Exam Vitals: Vital Signs Temp Pulse Resp BP BP Pulse Ox 10/05/23 07:29 97.9 F 74 20 117/68 99 10/05/23 01:24 97.5 F L 73 18 120/82 100 10/04/23 19:30 97.4 F L 82 16 108/70 98 Intake and Output 10/04/23 10/05/23 10/05/23 22:59 06:59 14:59 Output Total 400 300 Balance -400 -300 Output: Urine 400 300 Other: Voiding Method Diaper Diaper External Catheter External Catheter Weight 127.5 kg patient is awake, comfortable, no acute distress. Examination of the heart S1 and S2 Examination of the lungs decreased breath sounds at the bases Abdomen is soft obese Examination lower extremity shows no significant edema [employer] exam grossly intact Results - Lab Results Most recent lab results Calcium 8.9 mg/dL (8.7-10.3) 10/05/23 04:59 Magnesium 1.8 mg/dL (1.6-2.3) 09/27/23 08:43 10/05/23 04:59 10/05/23 04:59 Assessment and Plan Assessment: 1. Acute kidney injury, nonoliguric ATN secondary to sepsis and hypotension. no obvious obstruction noted on CT of the abdomen on 10/01/2023. BP remains on the lower side. 2. Hyperkalemia associated with acute kidney injury and hyperglycemia. 3. non-gap metabolic acidosis associated with acute kidney injury 4. Endometrial cancer with no metastases noted on CT chest, being followed by oncology. 5. Chronic kidney disease NKF stage III with lowest creatinine at 1.2-1.4 mg/dL in May of this year. Otherwise the creatinine has been mostly around 1.9-2 mg/dL. 6. Fungal UTI 7. Anemia secondary to vaginal bleeding/endometrial cancer 8. History of SLE maintained on plaquenil. No recent follow-up with rheumatology. Plan: add IV sodium bicarb DC farxiga due to fungal UTI and gluteal abscess. Control blood sugars. Check post void bladder scan. Repeat labs in a.m. Continue to avoid nephrotoxic agents. thank you for the consultation. We will continue to follow the patient with you during her hospitalization.
--- NOTE | 2023-10-05 13:51 | P.PN ---
Subjective Progress Note Date: 10/05/23 patient is a 57-year-old lady with past medical history significant for diabetes mellitus type 2, chronic kidney disease stage III, history of COPD, chronic hypoxic respiratory failure on 4 L of oxygen, history of pulm embolism October 2022, previous history of DVT with s/p IVC filter placement in November 2022, history of lupus, anxiety, morbid obesity, history of vaginal bleeding, history of gallstones presents to the emergency department for feeling not for the last few days. Patient stated that her normally takes care of of her and he was recently admitted to the hospital so there was no one to take care of her at home. Patient has not been eating and drinking much at home. Patient stated that she was also having fevers at home. There was no complaint of chest pain or shortness of breath. Patient was complaining of nausea but no vomiting. Patient has history of endometrial cancer and does get vaginal bleeding. Because of the symptoms, patient came to the ER Initial lab work done in the ER showed WBC 27.8, hemoglobin 10.2, platelet count 449, sodium 130, potassium 5, BUN 58, creatinine 2, glucose 604, AST 11, ALT 8, UA positive for leukocyte Estrace, urine WBC more than 192 Chest x-ray done in the ER showed no acute cardiopulmonary process Patient admitted to internal medicine service 09/27. Patient seen and examined. Patient was started on insulin drip overnight, currently blood sugars are better controlled. Patient will be switched back to subcu insulin. Complaining abdominal pain. No nausea or vomiting 09/28. Patient seen and examined. Blood work done showed WBC 28.5, hemoglobin 8.7, platelet count 428, sodium 135, potassium 4.4, BUN 63, creatinine 2.49, g lucose 144. Still having hematuria. Complaining of abdominal pain. 09/29. Patient seen and examined. 09/30. Patient seen examined. Still complaining abdominal pain. Still has bleeding from her genital area which is her baseline. Denies any fever or chills. 10/01. Patient seen and examined. Continues to have abdominal pain. Discussed with her in detail regarding her CT scan that there was nothing in abdominal to explain her pain. Patient is concerned about her history of uterine cancer. Still having on and off vagina bleeding. 10/02. Patient seen and examined. Continues to complain of abdominal pain. Urine culture was growing Shelly, patient currently on Eraxis. Patient has s welling on left buttock, painful, red in color. 10/03. Patient seen and examined. Currently n.p.o., going for I&D today. 10/04. Patient seen and examined. Patient potassium was elevated, hyperkalemia protocol was initiated. Patient blood sugars have been elevated, increase Levemir to 15 units twice a day. Patient had I&D yesterday, currently on Eraxis and daptomycin. REVIEW OF SYSTEMS: CONSTITUTIONAL: No fever, no malaise,. CARDIOVASCULAR: No chest pain, no palpitations, no syncope. PULMONARY: No shortness of breath, no cough, GASTROINTESTINAL: As mentioned above NEUROLOGICAL: No headaches, no weakness, PHYSICAL EXAMINATION: GENERAL: The patient is alert and oriented x3, not in any acute distress. Ill looking HEENT: Pupils are round and equally reacting to light. EOMI. No scleral icterus. No conjunctival pallor. Normocephalic, atraumatic. No pharyngeal erythema. No thyromegaly. CARDIOVASCULAR: S1 and S2 present. No murmurs, rubs, or gallops. PULMONARY: Chest is clear to auscultation, no wheezing or crackles. ABDOMEN: Soft, nontender, nondistended, normoactive bowel sounds. No palpable organomegaly. MUSCULOSKELETAL: No joint swelling or deformity. EXTREMITIES: No cyanosis, clubbing, or pedal edema. NEUROLOGICAL: Gross neurological examination did not reveal any focal deficits. SKIN: Left buttock dressing seen Assessment and plan Sepsis UTI Left buttock abscess Hyperkalemia Hyperglycemia Chronic kidney disease stage IV History of pulmonary embolism S/p IVC filter in place Chronic hypoxic respiratory failure on 4 L of oxygen History of COPD not in exacerbation Diabetes mellitus type II Endometrial adenocarcinoma Monitor vital signs Monitor CBC Monitor CMP Continue telemetry monitoring Follow-up on blood cultures follow urine culture Continue IV Eraxis Continue daptomycin Continue Eliquis, Lopressor Continue pain management Continue low potassium diet. Hyperkalemia protocol initiated Monitor blood sugar levels, continue Levemir 10 units twice a day and subcu insulin sliding scale ID following Oncology following, they recommended consulting radiation oncology for possible palliative radiation for worsening vaginal bleeding General surgery following, s/p I&D, continue wound care Nephrology consulted for hyperkalemia Labs and medication were reviewed.. Continue same treatment. Continue with symptomatic treatment. Resume home medication. Monitor labs and vitals. DVT and GI prophylaxis. Further recommendations as per clinical course of the patient Dictation was produced using [employer] dictation software. please excuse any gram matical, word or spelling errors. Objective - Vital Signs Vital signs: Vital Signs Temp 97.9 F 10/05/23 07:29 Pulse 74 10/05/23 07:29 Resp 20 10/05/23 07:29 BP 117/68 10/05/23 07:29 Pulse Ox 99 10/05/23 07:29 FiO2 Intake & Output 10/04/23 10/05/23 10/05/23 18:59 06:59 18:59 Intake Total 300 Output Total 410 300 Balance -110 -300 Weight 127.5 kg Intake: IV 300 Output: Urine 400 300 Estimated Blood Loss 10 Other: Voiding Method Diaper Diaper External Catheter External Catheter - Labs CBC & Chem 7: 10/05/23 04:59 10/05/23 04:59 Labs: Abnormal Lab Results - Last 24 Hours (Table) 10/04/23 10/04/23 10/04/23 Range/Units 07:30 12:17 14:59 WBC (4.50-10.00) X 10*3/uL RBC (4.10-5.20) X 10*6/uL Hgb (12.0-15.0) g/dL Hct (37.2-46.3) % MCHC (32.0-37.0) g/dL Plt Count (140-440) X 10*3/uL Potassium 6.5 H* (3.5-5.1) mmol/L Chloride 113 H (98-107) mmol/L Carbon Dioxide 16 L (22-30) mmol/L BUN 75 H (7-17) mg/dL Creatinine 2.18 H (0.52-1.04) mg/dL Glucose 259 H (74-99) mg/dL POC Glucose (mg/dL) 163 H (70-110) mg/dL Iron 23 L (50-170) UG/DL TIBC 199 L (228-460) UG/DL % Saturation 11.56 L (12.00-45.00) Transferrin 142.0 L (204.0-354.0) mg/dL Ferritin 733.0 H (10.0-291.0) ng/mL Alkaline Phosphatase 149 H (38-126) U/L Albumin 3.1 L (3.5-5.0) g/dL 10/04/23 10/04/23 10/04/23 Range/Units 17:15 18:54 20:25 WBC (4.50-10.00) X 10*3/uL RBC (4.10-5.20) X 10*6/uL Hgb (12.0-15.0) g/dL Hct (37.2-46.3) % MCHC (32.0-37.0) g/dL Plt Count (140-440) X 10*3/uL Potassium 6.0 H (3.5-5.1) mmol/L Chloride (98-107) mmol/L Carbon Dioxide (22-30) mmol/L BUN (7-17) mg/dL Creatinine (0.52-1.04) mg/dL Glucose (74-99) mg/dL POC Glucose (mg/dL) 307 H 388 H (70-110) mg/dL Iron (50-170) UG/DL TIBC (228-460) UG/DL % Saturation (12.00-45.00) Transferrin (204.0-354.0) mg/dL Ferritin (10.0-291.0) ng/mL Alkaline Phosphatase (38-126) U/L Albumin (3.5-5.0) g/dL 10/05/23 10/05/23 Range/Units 04:59 07:27 WBC 21.56 H (4.50-10.00) X 10*3/uL RBC 2.72 L (4.10-5.20) X 10*6/uL Hgb 7.5 L (12.0-15.0) g/dL Hct 25.1 L (37.2-46.3) % MCHC 29.9 L (32.0-37.0) g/dL Plt Count 491 H (140-440) X 10*3/uL Potassium (3.5-5.1) mmol/L Chloride (98-107) mmol/L Carbon Dioxide (22-30) mmol/L BUN (7-17) mg/dL Creatinine (0.52-1.04) mg/dL Glucose (74-99) mg/dL POC Glucose (mg/dL) 434 H (70-110) mg/dL Iron (50-170) UG/DL TIBC (228-460) UG/DL % Saturation (12.00-45.00) Transferrin (204.0-354.0) mg/dL Ferritin (10.0-291.0) ng/mL Alkaline Phosphatase (38-126) U/L Albumin (3.5-5.0) g/dL Microbiology - Last 24 Hours (Table) 10/03/23 12:36 Gram Stain - Final Buttock Wound Culture - Final Staphylococcus aureus
[2023-10-05 15:19] LABS: Glucose,Whole Blood 282 mg/dL (70-110)
[2023-10-05] MEDS: DAPTOmycin 350 MG in SODIUM CHLORIDE 0.9% 50 ML IVPB SCH (16:48)
[2023-10-05] MEDS: DEXTROSE 50% SYRINGE 50 ML IVP ONE (16:52)
[2023-10-05 17:28] LABS: Glucose,Whole Blood 239 mg/dL (70-110)
[2023-10-05 20:17] LABS: Glucose,Whole Blood 206 mg/dL (70-110)
[2023-10-05] MEDS: INSULIN DETEMIR (LEVEMIR) 100 UNIT/ML SYR SQ SCH (20:57)
[2023-10-06] MEDS: LACTULOSE 20 GM/30 ML CUP PO ONE (00:33)
[2023-10-06 07:12] LABS: Glucose,Whole Blood 217 mg/dL (70-110)
[2023-10-06 08:18] LABS: Basophils # (A) 0.1 k/uL (0-0.2); Basophils % (A) 1 %; Eosinophils # (A) 0.7 k/uL (0-0.7); Eosinophils % (A) 4 %; HCT 31.1 % (34.0-46.0); HGB 9.7 gm/dL (11.4-16.0); Lymphocytes # (A) 3.8 k/uL (1.0-4.8); Lymphocytes % (A) 19 %; MCH 28.3 pg (25.0-35.0); MCHC 31.1 g/dL (31.0-37.0); MCV 90.9 fL (80.0-100.0); Mean Platelet Volume 8.2; Monocytes # (A) 0.9 k/uL (0-1.0); Monocytes % (A) 4 %; Neutrophils # (A) 14.3 k/uL (1.3-7.7); Neutrophils % (A) 72 %; Platelet Count 500 k/uL (150-450); RBC 3.42 m/uL (3.80-5.40); RDW 13.4 % (11.5-15.5); WBC 19.9 k/uL (3.8-10.6)
[2023-10-06 08:21] LABS: ALT 14 U/L (4-34); AST 19 U/L (14-36); African American GFR (CKD) 24 (>60 ml/min/1.73 sqM); Albumin 3.3 g/dL (3.5-5.0); Alkaline Phosphatase 136 U/L (38-126); Anion Gap 10 mmol/L; Blood Urea Nitrogen 88 mg/dL (7-17); Calcium 9.2 mg/dL (8.4-10.2); Carbon Dioxide 21 mmol/L (22-30); Chloride 110 mmol/L (98-107); Globulin 3.4 g/dL; Glucose 200 mg/dL (74-99); Non-African American GFR(CKD) 20 (>60 ml/min/1.73 sqM); Potassium 5.9 mmol/L (3.5-5.1); Sodium 141 mmol/L (137-145); Total Bilirubin 0.4 mg/dL (0.2-1.3); Total Protein 6.7 g/dL (6.3-8.2)
[2023-10-06] MEDS: INSULIN DETEMIR (LEVEMIR) 100 UNIT/ML SYR SQ SCH (08:25)
[2023-10-06] MEDS: FUROSEMIDE 10 MG/ML 4 ML VIAL IV STA (11:08)
[2023-10-06 12:31] LABS: Glucose,Whole Blood 214 mg/dL (70-110)
--- NOTE | 2023-10-06 12:51 | P.PN ---
Subjective patient is seen for follow-up for acute kidney injury and hyperkalemia. currently maintained on IV bicarb. No urine retention noted yesterday. Serum potassium remains elevated at 5.9. Blood sugar is elevated but somewhat improved. It was 214 today. Serum creatinine staying at about 2.5 mg/dL. Urine output documented at 700 mL for 24 hours. Patient has an external catheter. BP remains on the lower side. Objective - Vital Signs Vital signs: Vital Signs Temp 97.4 F L 10/06/23 07:33 Pulse 74 10/06/23 07:33 Resp 16 10/06/23 08:00 BP 106/69 10/06/23 07:33 Pulse Ox 95 10/06/23 07:33 FiO2 Intake & Output 10/05/23 10/06/23 10/06/23 18:59 06:59 18:59 Intake Total 120 Balance 120 Weight 128 kg Intake: Oral 120 Other: Voiding Method Diaper Bedside Commode Bedside Commode External Catheter Diaper Diaper Incontinent Incontinent # Voids 1 1 # Bowel Movements 1 - Exam patient is awake, comfortable, no acute distress. Examination of the heart S1 and S2 Examination of the lungs decreased breath sounds at the bases Abdomen is soft obese Examination lower extremity shows no significant edema ACCOUNT INSTALLATION SPECIALIST exam grossly intact - Labs CBC & Chem 7: 10/06/23 07:35 10/06/23 07:35 Labs: Abnormal Lab Results - Last 24 Hours (Table) 10/05/23 10/05/23 10/05/23 Range/Units 15:17 16:54 17:27 WBC (3.8-10.6) k/uL RBC (3.80-5.40) m/uL Hgb (11.4-16.0) gm/dL Hct (34.0-46.0) % Plt Count (150-450) k/uL Neutrophils # (1.3-7.7) k/uL Potassium 5.4 H (3.5-5.1) mmol/L Chloride (98-107) mmol/L Carbon Dioxide (22-30) mmol/L BUN (7-17) mg/dL Creatinine (0.52-1.04) mg/dL Glucose (74-99) mg/dL POC Glucose (mg/dL) 282 H 239 H (70-110) mg/dL Alkaline Phosphatase (38-126) U/L Albumin (3.5-5.0) g/dL 10/05/23 10/06/23 10/06/23 Range/Units 20:16 07:11 07:35 WBC 19.9 H (3.8-10.6) k/uL RBC 3.42 L (3.80-5.40) m/uL Hgb 9.7 L (11.4-16.0) gm/dL Hct 31.1 L (34.0-46.0) % Plt Count 500 H (150-450) k/uL Neutrophils # 14.3 H (1.3-7.7) k/uL Potassium (3.5-5.1) mmol/L Chloride (98-107) mmol/L Carbon Dioxide (22-30) mmol/L BUN (7-17) mg/dL Creatinine (0.52-1.04) mg/dL Glucose (74-99) mg/dL POC Glucose (mg/dL) 206 H 217 H (70-110) mg/dL Alkaline Phosphatase (38-126) U/L Albumin (3.5-5.0) g/dL 10/06/23 10/06/23 Range/Units 07:35 12:30 WBC (3.8-10.6) k/uL RBC (3.80-5.40) m/uL Hgb (11.4-16.0) gm/dL Hct (34.0-46.0) % Plt Count (150-450) k/uL Neutrophils # (1.3-7.7) k/uL Potassium 5.9 H (3.5-5.1) mmol/L Chloride 110 H (98-107) mmol/L Carbon Dioxide 21 L (22-30) mmol/L BUN 88 H (7-17) mg/dL Creatinine 2.53 H (0.52-1.04) mg/dL Glucose 200 H (74-99) mg/dL POC Glucose (mg/dL) 214 H (70-110) mg/dL Alkaline Phosphatase 136 H (38-126) U/L Albumin 3.3 L (3.5-5.0) g/dL Microbiology - Last 24 Hours (Table) 10/04/23 11:20 Gram Stain - Preliminary Buttock Wound Culture - Preliminary Presumptive Staph aureus 10/04/23 11:20 Gram Stain - Preliminary Buttock Wound Culture - Preliminary Presumptive Staph aureus 10/03/23 12:36 Anaerobic Culture - Preliminary Buttock 10/03/23 12:36 Gram Stain - Final Buttock Wound Culture - Final Staphylococcus aureus Assessment and Plan Assessment: 1. Acute kidney injury, nonoliguric ATN secondary to sepsis and hypotension. no obvious obstruction noted on CT of the abdomen on 10/01/2023. BP remains on the lower side. 2. Hyperkalemia associated with acute kidney injury and hyperglycemia. 3. Non-gap metabolic acidosis associated with acute kidney injury 4. Endometrial cancer with no metastases noted on CT chest, being followed by oncology. 5. Chronic kidney disease NKF stage III with lowest creatinine at 1.2-1.4 mg/dL in May of this year. Otherwise the creatinine has been mostly around 1.9-2 mg/dL. 6. Fungal UTI 7. Anemia secondary to vaginal bleeding/endometrial cancer 8. History of SLE maintained on plaquenil. No recent follow-up with rheumatology. Plan: continue IV sodium bicarb DC farxiga due to fungal UTI and gluteal abscess. Control blood sugars. IV Lasix 1 Repeat labs in a.m.
--- NOTE | 2023-10-06 14:20 | P.PN ---
Subjective Progress Note Date: 10/06/23 CHIEF COMPLAINT: Buttock abscess HISTORY OF PRESENT ILLNESS: Postop day #2 status post incision and drainage of the left buttock abscess. Patient reports her pain has improved. Afebrile. Culture growing MSSA. Afebrile. WBC 21 down to 19 Hgb 9.7 potassium 5.9 creatinine 2.3 PHYSICAL EXAM: VITAL SIGNS: Reviewed. GENERAL: no acute distress. ABDOMEN: Soft. Nondistended. Nontender. ASSESSMENT: 1. Left buttock abscess status post incision and drainage 2. UTI PLAN: -Continue local wound care with Aquacel silver -Antibiotics per ID service Physician Security Incident Response Engineer note has been reviewed by physician. Signing provider agrees with the documented findings, assessment, and plan of care. Objective - Vital Signs Vital signs: Vital Signs Temp 97.4 F L 10/06/23 07:33 Pulse 74 10/06/23 07:33 Resp 16 10/06/23 08:00 BP 106/69 10/06/23 07:33 Pulse Ox 95 10/06/23 07:33 FiO2 Intake & Output 10/05/23 10/06/23 10/06/23 18:59 06:59 18:59 Intake Total 120 Balance 120 Weight 128 kg Intake: Oral 120 Other: Voiding Method Diaper Bedside Commode Bedside Commode External Catheter Diaper Diaper Incontinent Incontinent # Voids 1 1 # Bowel Movements 1 - Labs CBC & Chem 7: 10/06/23 07:35 10/06/23 07:35 Labs: Abnormal Lab Results - Last 24 Hours (Table) 10/04/23 10/05/23 10/05/23 Range/Units 07:30 15:17 16:54 WBC (3.8-10.6) k/uL RBC (3.80-5.40) m/uL Hgb (11.4-16.0) gm/dL Hct (34.0-46.0) % Plt Count (150-450) k/uL Neutrophils # (1.3-7.7) k/uL Potassium 5.4 H (3.5-5.1) mmol/L Chloride (98-107) mmol/L Carbon Dioxide (22-30) mmol/L BUN (7-17) mg/dL Creatinine (0.52-1.04) mg/dL Glucose (74-99) mg/dL POC Glucose (mg/dL) 282 H (70-110) mg/dL Alkaline Phosphatase (38-126) U/L Albumin (3.5-5.0) g/dL RBC Folate 887 H (280 - 791) ng/mL 10/05/23 10/05/23 10/06/23 Range/Units 17:27 20:16 07:11 WBC (3.8-10.6) k/uL RBC (3.80-5.40) m/uL Hgb (11.4-16.0) gm/dL Hct (34.0-46.0) % Plt Count (150-450) k/uL Neutrophils # (1.3-7.7) k/uL Potassium (3.5-5.1) mmol/L Chloride (98-107) mmol/L Carbon Dioxide (22-30) mmol/L BUN (7-17) mg/dL Creatinine (0.52-1.04) mg/dL Glucose (74-99) mg/dL POC Glucose (mg/dL) 239 H 206 H 217 H (70-110) mg/dL Alkaline Phosphatase (38-126) U/L Albumin (3.5-5.0) g/dL RBC Folate (280 - 791) ng/mL 10/06/23 10/06/23 10/06/23 Range/Units 07:35 07:35 12:30 WBC 19.9 H (3.8-10.6) k/uL RBC 3.42 L (3.80-5.40) m/uL Hgb 9.7 L (11.4-16.0) gm/dL Hct 31.1 L (34.0-46.0) % Plt Count 500 H (150-450) k/uL Neutrophils # 14.3 H (1.3-7.7) k/uL Potassium 5.9 H (3.5-5.1) mmol/L Chloride 110 H (98-107) mmol/L Carbon Dioxide 21 L (22-30) mmol/L BUN 88 H (7-17) mg/dL Creatinine 2.53 H (0.52-1.04) mg/dL Glucose 200 H (74-99) mg/dL POC Glucose (mg/dL) 214 H (70-110) mg/dL Alkaline Phosphatase 136 H (38-126) U/L Albumin 3.3 L (3.5-5.0) g/dL RBC Folate (280 - 791) ng/mL Microbiology - Last 24 Hours (Table) 10/04/23 11:20 Gram Stain - Preliminary Buttock Wound Culture - Preliminary Presumptive Staph aureus 10/04/23 11:20 Gram Stain - Preliminary Buttock Wound Culture - Preliminary Presumptive Staph aureus 10/03/23 12:36 Anaerobic Culture - Preliminary Buttock
[2023-10-06] MEDS: SODIUM ZIRCONIUM CYCLOSILICATE 10 GM PACKET PO SCH (15:07)
[2023-10-06 17:06] LABS: Glucose,Whole Blood 247 mg/dL (70-110)
--- NOTE | 2023-10-06 18:35 | P.PN ---
Subjective Progress Note Date: 10/05/23 Principal diagnosis: Reason for follow-up is leukocytosis and UTI Patient is a 58-year-old female with a past medical history significant for diabetes mellitus COPD hypertension history of uterine cancer for the patient has received radiation, presenting to the hospital with weakness generalized bodyaches unable to take care of herself did have a fever positive UA concerning for symptomatic urinary tract infection. Patient is status post drainage of the left gluteal abscess by general surgery on 10/04/2023. On today's evaluation that is 10/05/2023, the patient continues to be afebrile, the patient is on 4 L nasal cannula oxygen and breathing comfortably, the Pt denies having any chest pain or cough, the patient denies having any abdominal pain no vomiting or any diarrhea has been reported by the nursing staff denies any worsening pain to the gluteal wound. Patient white count is 21.56 creatinine is 2.5 Objective - Vital Signs Vital signs: Vital Signs Temp 97.9 F 10/05/23 07:29 Pulse 74 10/05/23 07:29 Resp 20 10/05/23 07:29 BP 117/68 10/05/23 07:29 Pulse Ox 99 10/05/23 07:29 FiO2 Intake & Output 10/04/23 10/05/23 10/05/23 18:59 06:59 18:59 Intake Total 300 Output Total 410 300 Balance -110 -300 Weight 127.5 kg Intake: IV 300 Output: Urine 400 300 Estimated Blood Loss 10 Other: Voiding Method Diaper Diaper Diaper External Catheter External Catheter External Catheter - Exam GENERAL DESCRIPTION: Middle-aged female lying in bed in no distress RESPIRATORY SYSTEM: Unlabored breathing , decreased breath sounds at bases HEART: S1 S2 regular rate and rhythm , ABDOMEN: Soft , no tenderness, left gluteal area currently dressed - Labs CBC & Chem 7: 10/06/23 07:35 10/06/23 17:01 Labs: Abnormal Lab Results - Last 24 Hours (Table) 10/04/23 10/04/23 10/04/23 Range/Units 07:30 14:59 17:15 WBC (4.50-10.00) X 10*3/uL RBC (4.10-5.20) X 10*6/uL Hgb (12.0-15.0) g/dL Hct (37.2-46.3) % MCHC (32.0-37.0) g/dL Plt Count (140-440) X 10*3/uL Neutrophils # (Manual) (1.80-7.70) X 10*3/uL Monocytes # (Manual) (0.20-1.00) X 10*3/uL Eosinophils # (Manual) (0.04-0.35) X 10*3/uL Sodium (135-145) mmol/L Potassium 6.5 H* (3.5-5.1) mmol/L Chloride 113 H (98-107) mmol/L Carbon Dioxide 16 L (22-30) mmol/L BUN 75 H (7-17) mg/dL Creatinine 2.18 H (0.52-1.04) mg/dL Est GFR (CKD-EPI) (>=60) BUN/Creatinine Ratio (12.00-20.00) Ratio Glucose 259 H (74-99) mg/dL POC Glucose (mg/dL) 307 H (70-110) mg/dL Iron 23 L (50-170) UG/DL TIBC 199 L (228-460) UG/DL % Saturation 11.56 L (12.00-45.00) Transferrin 142.0 L (204.0-354.0) mg/dL Ferritin 733.0 H (10.0-291.0) ng/mL Total Bilirubin (0.3-1.2) mg/dL AST (13-35) U/L Alkaline Phosphatase 149 H (38-126) U/L Total Protein (6.2-8.2) g/dL Albumin 3.1 L (3.5-5.0) g/dL Albumin/Globulin Ratio (1.60-3.17) Ratio 10/04/23 10/04/23 10/05/23 Range/Units 18:54 20:25 04:59 WBC 21.56 H (4.50-10.00) X 10*3/uL RBC 2.72 L (4.10-5.20) X 10*6/uL Hgb 7.5 L (12.0-15.0) g/dL Hct 25.1 L (37.2-46.3) % MCHC 29.9 L (32.0-37.0) g/dL Plt Count 491 H (140-440) X 10*3/uL Neutrophils # (Manual) 17.25 H (1.80-7.70) X 10*3/uL Monocytes # (Manual) 1.08 H (0.20-1.00) X 10*3/uL Eosinophils # (Manual) 0 L (0.04-0.35) X 10*3/uL Sodium (135-145) mmol/L Potassium 6.0 H (3.5-5.1) mmol/L Chloride (98-107) mmol/L Carbon Dioxide (22-30) mmol/L BUN (7-17) mg/dL Creatinine (0.52-1.04) mg/dL Est GFR (CKD-EPI) (>=60) BUN/Creatinine Ratio (12.00-20.00) Ratio Glucose (74-99) mg/dL POC Glucose (mg/dL) 388 H (70-110) mg/dL Iron (50-170) UG/DL TIBC (228-460) UG/DL % Saturation (12.00-45.00) Transferrin (204.0-354.0) mg/dL Ferritin (10.0-291.0) ng/mL Total Bilirubin (0.3-1.2) mg/dL AST (13-35) U/L Alkaline Phosphatase (38-126) U/L Total Protein (6.2-8.2) g/dL Albumin (3.5-5.0) g/dL Albumin/Globulin Ratio (1.60-3.17) Ratio 10/05/23 10/05/23 10/05/23 Range/Units 04:59 07:27 11:24 WBC (4.50-10.00) X 10*3/uL RBC (4.10-5.20) X 10*6/uL Hgb (12.0-15.0) g/dL Hct (37.2-46.3) % MCHC (32.0-37.0) g/dL Plt Count (140-440) X 10*3/uL Neutrophils # (Manual) (1.80-7.70) X 10*3/uL Monocytes # (Manual) (0.20-1.00) X 10*3/uL Eosinophils # (Manual) (0.04-0.35) X 10*3/uL Sodium 133 L (135-145) mmol/L Potassium 6.2 A* (3.5-5.1) mmol/L Chloride (98-107) mmol/L Carbon Dioxide 19.5 L (22-30) mmol/L BUN 80.9 H (7-17) mg/dL Creatinine 2.5 H (0.52-1.04) mg/dL Est GFR (CKD-EPI) 22 L (>=60) BUN/Creatinine Ratio 32.36 H (12.00-20.00) Ratio Glucose 455 H (74-99) mg/dL POC Glucose (mg/dL) 434 H 377 H (70-110) mg/dL Iron (50-170) UG/DL TIBC (228-460) UG/DL % Saturation (12.00-45.00) Transferrin (204.0-354.0) mg/dL Ferritin (10.0-291.0) ng/mL Total Bilirubin <0.2 L (0.3-1.2) mg/dL AST 10 L (13-35) U/L Alkaline Phosphatase (38-126) U/L Total Protein 6.0 L (6.2-8.2) g/dL Albumin 2.9 L (3.5-5.0) g/dL Albumin/Globulin Ratio 0.94 L (1.60-3.17) Ratio // Range/Units 12:18 WBC (4.50-10.00) X 10*3/uL RBC (4.10-5.20) X 10*6/uL Hgb (12.0-15.0) g/dL Hct (37.2-46.3) % MCHC (32.0-37.0) g/dL Plt Count (140-440) X 10*3/uL Neutrophils # (Manual) (1.80-7.70) X 10*3/uL Monocytes # (Manual) (0.20-1.00) X 10*3/uL Eosinophils # (Manual) (0.04-0.35) X 10*3/uL Sodium (135-145) mmol/L Potassium (3.5-5.1) mmol/L Chloride (98-107) mmol/L Carbon Dioxide (22-30) mmol/L BUN (7-17) mg/dL Creatinine (0.52-1.04) mg/dL Est GFR (CKD-EPI) (>=60) BUN/Creatinine Ratio (12.00-20.00) Ratio Glucose (74-99) mg/dL POC Glucose (mg/dL) 315 H (70-110) mg/dL Iron (50-170) UG/DL TIBC (228-460) UG/DL % Saturation (12.00-45.00) Transferrin (204.0-354.0) mg/dL Ferritin (10.0-291.0) ng/mL Total Bilirubin (0.3-1.2) mg/dL AST (13-35) U/L Alkaline Phosphatase (38-126) U/L Total Protein (6.2-8.2) g/dL Albumin (3.5-5.0) g/dL Albumin/Globulin Ratio (1.60-3.17) Ratio Microbiology - Last 24 Hours (Table) 10/03/23 12:36 Anaerobic Culture - Preliminary Buttock 10/04/23 11:20 Gram Stain - Preliminary Buttock 10/04/23 11:20 Gram Stain - Preliminary Buttock 10/03/23 12:36 Gram Stain - Final Buttock Wound Culture - Final Staphylococcus aureus Assessment and Plan (1) Sepsis Current Visit: Yes Status: Acute Code(s): A41.9 - SEPSIS, UNSPECIFIED O RGANISM SNOMED Code(s): 07900237 (2) Allergy to multiple antibiotics Current Visit: Yes Status: Acute Code(s): Z88.1 - ALLERGY STATUS TO OTHER ANTIBIOTIC AGENTS SNOMED Code(s): 449485173 (3) UTI (urinary tract infection) Current Visit: Yes Status: Acute Priority: Medium Code(s): N39.0 - URINARY TRACT INFECTION, SITE NOT SPECIFIED SNOMED Code(s): 93543668 Plan: 1patient presented hospital with sepsis in this patient who did have a fever tachycardia elevated white count did have significantly positive UA likely source of the sepsis patient chest x-ray was negative for any acute infiltrate and no tenderness on abdominal examination to be suspicious for abdominal source. 2patient with multiple antibiotic ALLERGIES that would limit the number of antibiotic safe to use. 3renal insufficiency and high risk of nephrotoxicity. 4patient urine culture has been finalized with Shelly albicans patient is covered with Eraxis 5left gluteal abscess local cultures s/p surgical drainage cultures obtained currently pending patient to continue with the daptomycin adjust antibiotic further based on the culture Dictation was produced using [employer] dictation software. please excuse any grammatical, word or spelling errors. . Time with Patient: Less than 30
--- NOTE | 2023-10-06 18:36 | P.PN ---
Subjective Progress Note Date: 10/06/23 Principal diagnosis: Reason for follow-up is leukocytosis and UTI Patient is a 58-year-old female with a past medical history significant for diabetes mellitus COPD hypertension history of uterine cancer for the patient has received radiation, presenting to the hospital with weakness generalized bodyaches unable to take care of herself did have a fever positive UA concerning for symptomatic urinary tract infection. Patient is status post drainage of the left gluteal abscess by general surgery on 10/04/2023. On today's evaluation that is 10/06/2023, Patient is afebrile patient is currently on room air and denies having any shortness of breath, the patient denies any chest pain or cough, the patient denies any nausea vomiting did not have any abdominal pain and no diarrhea, still complaining of pain to the gluteal area. Patient white count is 19.9 creatinine is 2.53 culture with MSSA Objective - Vital Signs Vital signs: Vital Signs Temp 97.4 F L 10/06/23 07:33 Pulse 74 10/06/23 07:33 Resp 16 10/06/23 08:00 BP 106/69 10/06/23 07:33 Pulse Ox 95 10/06/23 07:33 FiO2 Intake & Output 10/05/23 10/06/23 10/06/23 18:59 06:59 18:59 Intake Total 120 Balance 120 Weight 128 kg Intake: Oral 120 Other: Voiding Method Diaper Bedside Commode Bedside Commode External Catheter Diaper Diaper Incontinent Incontinent # Voids 1 1 # Bowel Movements 1 - Exam GENERAL DESCRIPTION: Middle-aged female lying in bed in no distress RESPIRATORY SYSTEM: Unlabored breathing , decreased breath sounds at bases HEART: S1 S2 regular rate and rhythm , ABDOMEN: Soft , no tenderness, left gluteal area currently dressed - Labs CBC & Chem 7: 10/06/23 07:35 10/06/23 17:01 Labs: Abnormal Lab Results - Last 24 Hours (Table) 10/04/23 10/05/23 10/05/23 Range/Units 07:30 15:17 16:54 WBC (3.8-10.6) k/uL RBC (3.80-5.40) m/uL Hgb (11.4-16.0) gm/dL Hct (34.0-46.0) % Plt Count (150-450) k/uL Neutrophils # (1.3-7.7) k/uL Potassium 5.4 H (3.5-5.1) mmol/L Chloride (98-107) mmol/L Carbon Dioxide (22-30) mmol/L BUN (7-17) mg/dL Creatinine (0.52-1.04) mg/dL Glucose (74-99) mg/dL POC Glucose (mg/dL) 282 H (70-110) mg/dL Alkaline Phosphatase (38-126) U/L Albumin (3.5-5.0) g/dL RBC Folate 887 H (280 - 791) ng/mL 10/05/23 10/05/23 10/06/23 Range/Units 17:27 20:16 07:11 WBC (3.8-10.6) k/uL RBC (3.80-5.40) m/uL Hgb (11.4-16.0) gm/dL Hct (34.0-46.0) % Plt Count (150-450) k/uL Neutrophils # (1.3-7.7) k/uL Potassium (3.5-5.1) mmol/L Chloride (98-107) mmol/L Carbon Dioxide (22-30) mmol/L BUN (7-17) mg/dL Creatinine (0.52-1.04) mg/dL Glucose (74-99) mg/dL POC Glucose (mg/dL) 239 H 206 H 217 H (70-110) mg/dL Alkaline Phosphatase (38-126) U/L Albumin (3.5-5.0) g/dL RBC Folate (280 - 791) ng/mL 10/06/23 10/06/23 10/06/23 Range/Units 07:35 07:35 12:30 WBC 19.9 H (3.8-10.6) k/uL RBC 3.42 L (3.80-5.40) m/uL Hgb 9.7 L (11.4-16.0) gm/dL Hct 31.1 L (34.0-46.0) % Plt Count 500 H (150-450) k/uL Neutrophils # 14.3 H (1.3-7.7) k/uL Potassium 5.9 H (3.5-5.1) mmol/L Chloride 110 H (98-107) mmol/L Carbon Dioxide 21 L (22-30) mmol/L BUN 88 H (7-17) mg/dL Creatinine 2.53 H (0.52-1.04) mg/dL Glucose 200 H (74-99) mg/dL POC Glucose (mg/dL) 214 H (70-110) mg/dL Alkaline Phosphatase 136 H (38-126) U/L Albumin 3.3 L (3.5-5.0) g/dL RBC Folate (280 - 791) ng/mL Microbiology - Last 24 Hours (Table) 10/04/23 11:20 Gram Stain - Preliminary Buttock Wound Culture - Preliminary Presumptive Staph aureus 10/04/23 11:20 Gram Stain - Preliminary Buttock Wound Culture - Preliminary Presumptive Staph aureus 10/03/23 12:36 Anaerobic Culture - Preliminary Buttock Assessment and Plan (1) Sepsis Current Visit: Yes Status: Acute Code(s): A41.9 - SEPSIS, UNSPECIFIED ORGANISM SNOMED Code(s): 31278764 (2) Allergy to multiple antibiotics Current Visit: Yes Status: Acute Code(s): Z88.1 - ALLERGY STATUS TO OTHER ANTIBIOTIC AGENTS SNOMED Code(s): 594747504 (3) UTI (urinary tract infection) Current Visit: Yes Status: Acute Priority: Medium Code(s): N39.0 - URINARY TRACT INFECTION, SITE NOT SPECIFIED SNOMED Code(s): 13613119 Plan: 1patient presented hospital with sepsis in this patient who did have a fever tachycardia elevated white count did have significantly positive UA likely source of the sepsis patient chest x-ray was negative for any acute infiltrate and no tenderness on abdominal examination to be suspicious for abdominal source. 2patient with multiple antibiotic ALLERGIES that would limit the number of antibiotic safe to use. 3renal insufficiency and high risk of nephrotoxicity. 4patient urine culture has been finalized with Shelly albicans patient is covered with Eraxis 5left gluteal abscess local cultures s/p surgical drainage cultures currently growing MSSA we will discontinue daptomycin start the patient on cefazolin 2 g every 8 hours and monitor clinical course closely Dictation was produced using [employer] dictation software. please excuse any grammatical, word or spelling errors. . Time with Patient: Less than 30
[2023-10-06 21:44] LABS: Glucose,Whole Blood 134 mg/dL (70-110)
--- NOTE | 2023-10-06 21:49 | PN ---
PROGRESS NOTE DATE OF SERVICE: 10/06/2023 SUBJECTIVE: This is a 58-year-old woman with a past medical history of multiple medical problems, admitted with UTI with sepsis and left buttock abscess. The patient also had history of pulmonary embolism, COPD, and endometrial adenocarcinoma also. The patient is being closely monitored. No chest pain. No palpitations. PAST MEDICAL HISTORY: Reviewed. REVIEW OF SYSTEMS: 14-point review is negative except as mentioned earlier. CURRENT MEDICATIONS: Reviewed include Lipitor, dose and rest of medications noted. PHYSICAL EXAMINATION: VITAL SIGNS: Pulse is 74, blood pressure 106/69, respirations 16. HEENT: Conjunctivae normal. NECK: No JVD. CARDIOVASCULAR: S1, S2. RESPIRATIONS: Breath sounds diminished at the bases. A few scattered rhonchi. ABDOMEN: Soft, obese. LEGS: No edema. NERVOUS SYSTEM: Nonfocal. LABORATORY DATA: WBC 19.9, creatinine is 2.53. ASSESSMENT: 1. Urinary tract infection with sepsis possibly present on admission. 2. Left buttock abscess. 3. Hyperkalemia. 4. Hyperglycemia. 5. Chronic kidney disease, stage 4. 6. History of pulmonary embolism. 7. Status post IVC filter. 8. Endometrial adenocarcinoma history. 9. Renal failure. RECOMMENDATIONS AND DISCUSSION: I recommend to continue current medications, continue symptomatic treatment. Otherwise, at this time, we will monitor the patient closely. Monitor creatinine closely. Potassium is elevated. I recommend Lokelma. Closely follow with Nephrology. The patient is on a bicarb drip at this time. Continue to monitor. Further recommendations to follow. Repeat labs will be ordered. Apparently, the patient has not been compliant with outpatient followup regarding endometrial carcinoma. We will discuss. MMODL / IJN: [id number] /
[2023-10-07 07:34] LABS: Glucose,Whole Blood 153 mg/dL (70-110)
[2023-10-07 10:24] LABS: HCT 24.3 % (37.2-46.3); HGB 7.7 g/dL (12.0-15.0); MCH 29.1 pg (27.0-32.0); MCHC 31.7 g/dL (32.0-37.0); MCV 91.7 FL (80.0-97.0); Mean Platelet Volume 10.8 FL (9.5-12.2); NRBC Per 100 WBC 0 X 10*3/uL (0.00-0.01); Platelet Count 473 X 10*3/uL (140-440); RBC 2.65 X 10*6/uL (4.10-5.20); RDW 13.1 % (11.5-14.5); WBC 16.98 X 10*3/uL (4.50-10.00)
[2023-10-07] MEDS: SENNOSIDES 8.6 MG TAB PO SCH (10:49)
[2023-10-07] MEDS: bisacodyL 10 MG SUPP RECTAL STA (10:49)
[2023-10-07 10:58] LABS: BUN/Creat Ratio 32.92 Ratio (12.00-20.00); Blood Urea Nitrogen 82.3 mg/dL (9.0-27.0); Calcium 8.3 mg/dL (8.7-10.3); Carbon Dioxide 25.7 mmol/L (21.6-31.8); Chloride 105 mmol/L (96-109); Glucose 144 mg/dL (70-110); Potassium 5.4 mmol/L (3.5-5.5); Sodium 141 mmol/L (135-145)
[2023-10-07 11:14] LABS: Basophils # (M) 0 X 10*3/uL (0.00-0.10); Neutrophils # (M) 12.74 X 10*3/uL (1.80-7.70); Neutrophils % (M) 75 %
[2023-10-07 12:03] LABS: Glucose,Whole Blood 239 mg/dL (70-110)
[2023-10-07 12:08] LABS: Eosinophils # (M) 0.34 X 10*3/uL (0.04-0.35); Lymphocytes # (M) 2.72 X 10*3/uL (0.90-5.00); Metamyelocytes % 2 % (0-0); Monocytes # (M) 0.68 X 10*3/uL (0.20-1.00); Myelocytes % 1 % (0-0); RBC Morphology Normal (Normal)
--- NOTE | 2023-10-07 14:33 | P.PN ---
Subjective Progress Note Date: 10/07/23 This is a 58-year-old female who was recently admitted with UTI and sepsis, present on admission. Patient being followed by general surgery along with infectious disease and patient had a left buttock abscess status post I&D. Cultures are showing Staph aureus with sensitivities and urine culture finalized with Shelly albicans. Blood cultures are negative. Patient would benefit from ECF for extensive wound care, antibiotic therapy, and generalized weakness. Patient is adamant she is going home and currently does not have a primary care provider. Social work is following working on discharge planning including making arrangements for home health care. White count remains elevated although is trending down and currently 16.9 today. Hemoglobin is 7.7 and creatinine is stable at 2.5. Potassium 5.4 and recommend to continue with low potassium renal diet. Continue monitoring blood sugars as blood sugars remain elevated and patient is poorly controlled. Patient is extremely noncompliant with medications and follow-up outpatient making it difficult to arrange for safe discharge planning home. Review of systems: Constitutional: No reports of fatigue, fever, or chills Cardiovascular: No reports of chest pain or palpitations Respiratory: reports of shortness of breath and occasional cough GI: No reports of nausea, no reports of vomiting, no reports of diarrhea : No reports of dysuria or retention Neurovascular: reports of generalized weakness All medications have been reviewed Active Medications Acetaminophen (Acetaminophen Tab 325 Mg Tab) 650 mg PO Q6HR PRN PRN Reason: Mild Pain or Fever > 100.5 Last Admin: 10/01/23 21:53 Dose: 650 mg Hydrocodone Bitart/Acetaminophen (Hydrocodone/Apap 5-325mg 1 Each Tab) 1 each PO Q4HR PRN PRN Reason: Pain Last Admin: 10/05/23 20:58 Dose: 1 each Allopurinol (Allopurinol 100 Mg Tab) 100 mg PO BID [facility] Last Admin: 10/07/23 09:09 Dose: 100 mg Anastrozole (Anastrozole 1 Mg Tab) 1 mg PO DAILY [facility] Last Admin: 10/07/23 09:14 Dose: 1 mg Apixaban (Apixaban 2.5 Mg Tablet) 2.5 mg PO BID [facility]; Protocol Last Admin: 10/07/23 09:09 Dose: 2.5 mg Atorvastatin Calcium (Atorvastatin 10 Mg Tab) 10 mg PO DAILY [facility] Last Admin: 06/25/24 09:09 Dose: 10 mg Dextrose/Water (Dextrose 50% Syringe 50 Ml) 50 ml IVP PER PROTOCOL PRN; Protocol PRN Reason: Hypoglycemia Dextrose/Water (Dextrose 50% Syringe 50 Ml) 25 ml IVP PER PROTOCOL PRN; Protocol PRN Reason: Hypoglycemia Docusate Sodium (Docusate 100 Mg Cap) 100 mg PO BID [facility] Last Admin: 10/07/23 09:08 Dose: 100 mg Fenofibrate (Fenofibrate 160 Mg Tab) 160 mg PO DAILY [facility] Last Admin: 10/07/23 09:09 Dose: 160 mg Fluoxetine HCl (Fluoxetine Hcl 20 Mg Cap) 20 mg PO BID [facility] Last Admin: 10/07/23 09:09 Dose: 20 mg Hydroxychloroquine Sulfate (Hydroxychloroquine Sulfate 200 Mg Tab) 200 mg PO BID [facility] Last Admin: 10/07/23 09:12 Dose: 200 mg Hydroxyzine HCl (Hydroxyzine Hcl 25 Mg Tab) 25 mg PO QID [facility] Last Admin: 10/07/23 12:24 Dose: 25 mg Anidulafungin 100 mg/ Sodium (Chloride) 130 mls @ 84 mls/hr IVPB DAILY VANIA; Pro tocol Last Admin: 10/07/23 12:13 Dose: 84 mls/hr Lactated Ringer's (Lactated Ringers) 1,000 mls @ 20 mls/hr IV .Q24H [facility] Last Admin: 10/07/23 11:04 Dose: Not Given Sodium Bicarbonate 100 ml/ (Sodium Chloride) 1,100 mls @ 75 mls/hr IV .[id number] [facility] Last Admin: 10/06/23 22:35 Dose: 75 mls/hr Cefazolin Sodium 2 gm/ Sodium (Chloride) 50 mls @ 100 mls/hr IVPB Q12H [facility]; Protocol Last Admin: 10/07/23 10:49 Dose: 100 mls/hr Insulin Aspart (Insulin Aspart (Novolog) 100 Unit/Ml Vial) 0 unit SQ ACHS VANIA; Protocol Last Admin: 10/07/23 12:24 Dose: 8 unit Insulin Aspart (Insulin Aspart (Novolog) 100 Unit/Ml Vial) 8 unit SQ AC-TID [facility] Last Admin: 10/07/23 12:23 Dose: 8 unit Insulin Detemir (Insulin Detemir (Levemir) 100 Unit/Ml Syr) 15 unit SQ DAILY@0700 [facility] Last Admin: 10/07/23 09:12 Dose: 15 unit Insulin Detemir (Insulin Detemir (Levemir) 100 Unit/Ml Syr) 15 unit SQ HS [facility] Last Admin: 10/06/23 23:19 Dose: Not Given Lidocaine HCl (Lidocaine 1% (10mg/Ml) For Iv Start) 0.1 ml INTRADERMA PER PROTOCOL PRN PRN Reason: IV Start Metoprolol Tartrate (Metoprolol Tartrate 50 Mg Tab) 50 mg PO BID [facility] Last Admin: 10/07/23 09:09 Dose: 50 mg Montelukast Sodium (Montelukast 10 Mg Tab) 10 mg PO DAILY [facility] Last Admin: 10/07/23 09:09 Dose: 10 mg Morphine Sulfate (Morphine Sulfate 4 Mg/Ml Syringe) 4 mg IVP Q4HR PRN PRN Reason: Pain Last Admin: 10/07/23 12:24 Dose: 4 mg Naloxone HCl (Naloxone 0.4 Mg/Ml 1 Ml Vial) 0.2 mg IV Q2M PRN PRN Reason: Opioid Reversal Nystatin (Nystatin 100,000 Unit/Gm Powd 15 Gm) 1 applic TOPICAL TID [facility]; Protocol Last Admin: 10/07/23 10:49 Dose: 1 applic Ondansetron HCl (Ondansetron 4 Mg/2 Ml Vial) 4 mg IVP Q6HR PRN PRN Reason: Nausea And Vomiting Last Admin: 10/05/23 22:22 Dose: 4 mg Pantoprazole Sodium (Pantoprazole 40 Mg Tablet) 40 mg PO BID [facility] Last Admin: 10/07/23 09:09 Dose: 40 mg Senna (Sennosides 8.6 Mg Tab) 8.6 mg PO BID [facility] Last Admin: 10/07/23 10:49 Dose: 8.6 mg Sodium Zirconium Cyclosilicate (Sodium Zirconium Cyclosilicate 10 Gm Packet) 10 gm PO TID [facility] Stop: 10/07/23 16:01 Last Admin: 10/07/23 09:12 Dose: 10 gm PHYSICAL EXAMINATION: GENERAL: The patient is alert and oriented x4, Well developed, well nourished. Morbidly obese, unkempt HEENT: Pupils are round and equally reacting to light. EOMI. no scleral icterus. No conjunctival pallor. Normocephalic, atraumatic. No pharyngeal erythema. No thyromegaly. CARDIOVASCULAR: S1 and S2 muffled PULMONARY: diminished breath sounds bilaterally with no wheezing, coarse rhonchi noted. ABDOMEN: soft. Nontender on exam. obese. non-distended, normoactive bowel sounds. No palpable organomegaly. MUSCULOSKELETAL: No joint swelling or deformity. EXTREMITIES: No cyanosis, clubbing, or pedal edema. NEUROLOGICAL: Gross neurological examination did not reveal any focal deficits. Diffuse weakness SKIN: No rashes. Assessment: Urinary tract infection, present on admission with sepsis, urine culture finalized as Shelly Left buttock abscess, present on admission, status post I&D with culture showing Staph aureus Hyperkalemia, improved Diabetes mellitus, type II, uncontrolled with hyperglycemia History of chronic kidney disease, stage IV History of pulmonary embolism History of endometrial carcinoma with chronic vaginal bleeding Status post IVC filter placement Acute renal failure Morbid obesity with a BMI of 47.0 GI prophylaxis DVT prophylaxis Full code Plan: Recommend to continue with current medications and management with general surgery and infectious disease following. Culture showing Staph aureus with sensitivities Continue local wound care and will discuss further with infectious disease regar ding discharge planning. Patient may benefit from a wound VAC and rehab for extensive wound care although patient is adamant she is going home Social work following working on discharge planning including arranging for home care as patient does not currently have a primary care provider at the time. Encouraged to increase activity as tolerated Will follow-up on repeat labs and monitor the white count Continue monitoring Accu-Cheks before meals and at bedtime and will continue consistent carb renal diet Nephrology following and patient remains on sodium bicarb Due to multiple complex medical issues, overall prognosis is extremely guarded The impression and plan of care has been dictated by aFbienne Fortune, nurse practitioner as directed. Dr. Karsten MD I have performed a history and examination and MDM of this patient, discussed the same with the dictator, and agree with the dictator's assessment and plan as written ,documented as a scribe. Based on total visit time, I have performed more than 50% of the visit. Any additional findings or plans will be noted. Objective - Vital Signs Vital signs: Vital Signs Temp 98.1 F 10/07/23 11:51 Pulse 84 10/07/23 11:51 Resp 18 10/07/23 11:51 BP 102/54 10/07/23 11:51 Pulse Ox 96 06/25/24 11:51 FiO2 Intake & Output 10/06/23 10/07/23 10/07/23 18:59 06:59 18:59 Intake Total 100 Output Total 900 Balance -800 Weight 132 kg Intake: Intake, IV Titration 100 Amount ceFAZolin 2 gm In Sodium 100 Chloride 0.9% 50 ml @ 100 mls/hr IVPB Q12H [facility] Rx# :[id number] Output: Urine 900 Other: Voiding Method Bedside Commode Bedside Commode Bedside Commode Diaper Diaper Diaper Incontinent Incontinent Incontinent # Bowel Movements 1 1 - Labs CBC & Chem 7: 10/07/23 06:22 10/07/23 06:22 Labs: Abnormal Lab Results - Last 24 Hours (Table) 10/04/23 10/06/23 10/06/23 Range/Units 07:30 17:01 17:05 WBC (4.50-10.00) X 10*3/uL RBC (4.10-5.20) X 10*6/uL Hgb (12.0-15.0) g/dL Hct (37.2-46.3) % MCHC (32.0-37.0) g/dL Plt Count (140-440) X 10*3/uL Neutrophils # (Manual) (1.80-7.70) X 10*3/uL Potassium 5.4 H (3.5-5.1) mmol/L BUN (9.0-27.0) mg/dL Creatinine (0.6-1.5) mg/dL Est GFR (CKD-EPI) (>=60) BUN/Creatinine Ratio (12.00-20.00) Ratio Glucose (70-110) mg/dL POC Glucose (mg/dL) 247 H (70-110) mg/dL Calcium (8.7-10.3) mg/dL RBC Folate 887 H (280 - 791) ng/mL 10/06/23 10/07/23 10/07/23 Range/Units 21:41 06:22 06:22 WBC 16.98 H (4.50-10.00) X 10*3/uL RBC 2.65 L (4.10-5.20) X 10*6/uL Hgb 7.7 L (12.0-15.0) g/dL Hct 24.3 L (37.2-46.3) % MCHC 31.7 L (32.0-37.0) g/dL Plt Count 473 H (140-440) X 10*3/uL Neutrophils # (Manual) 12.74 H (1.80-7.70) X 10*3/uL Potassium (3.5-5.1) mmol/L BUN 82.3 H (9.0-27.0) mg/dL Creatinine 2.5 H (0.6-1.5) mg/dL Est GFR (CKD-EPI) 22 L (>=60) BUN/Creatinine Ratio 32.92 H (12.00-20.00) Ratio Glucose 144 H (70-110) mg/dL POC Glucose (mg/dL) 134 H (70-110) mg/dL Calcium 8.3 L (8.7-10.3) mg/dL RBC Folate (280 - 791) ng/mL 10/07/23 10/07/23 Range/Units 07:31 12:01 WBC (4.50-10.00) X 10*3/uL RBC (4.10-5.20) X 10*6/uL Hgb (12.0-15.0) g/dL Hct (37.2-46.3) % MCHC (32.0-37.0) g/dL Plt Count (140-440) X 10*3/uL Neutrophils # (Manual) (1.80-7.70) X 10*3/uL Potassium (3.5-5.1) mmol/L BUN (9.0-27.0) mg/dL Creatinine (0.6-1.5) mg/dL Est GFR (CKD-EPI) (>=60) BUN/Creatinine Ratio (12.00-20.00) Ratio Glucose (70-110) mg/dL POC Glucose (mg/dL) 153 H 239 H (70-110) mg/dL Calcium (8.7-10.3) mg/dL RBC Folate (280 - 791) ng/mL Microbiology - Last 24 Hours (Table) 10/03/23 12:36 Anaerobic Culture - Final Buttock 10/04/23 11:20 Gram Stain - Final Buttock Wound Culture - Final Staphylococcus aureus 10/04/23 11:20 Gram Stain - Final Buttock Wound Culture - Final Staphylococcus aureus
--- NOTE | 2023-10-07 14:43 | P.PN ---
Subjective Progress Note Date: 10/07/23 CHIEF COMPLAINT: Buttock abscess HISTORY OF PRESENT ILLNESS: Postop day #3 status post incision and drainage of the left buttock abscess. Patient reports that she is feeling better. Afebrile. Culture growing MSSA. Afebrile. WBC 19 down to 16.98 PHYSICAL EXAM: VITAL SIGNS: Reviewed. GENERAL: no acute distress. ABDOMEN: Soft. Nondistended. Nontender. ASSESSMENT: 1. Left buttock abscess status post incision and drainage 2. UTI PLAN: -Continue local wound care -Consult wound care service for wound care recommendations of a left buttock abscess and to arrange follow-up in the wound care center outpatient -Antibiotics per ID service Physician Underpresser Hand note has been reviewed by physician. Signing provider agrees with the documented findings, assessment, and plan of care. Objective - Vital Signs Vital signs: Vital Signs Temp 98.1 F 10/07/23 11:51 Pulse 84 10/07/23 11:51 Resp 18 10/07/23 11:51 BP 102/54 10/07/23 11:51 Pulse Ox 96 10/07/23 11:51 FiO2 Intake & Output 10/06/23 10/07/23 10/07/23 18:59 06:59 18:59 Intake Total 100 Output Total 900 Balance -800 Weight 132 kg Intake: Intake, IV Titration 100 Amount ceFAZolin 2 gm In Sodium 100 Chloride 0.9% 50 ml @ 100 mls/hr IVPB Q12H [facility] Rx# :[id number] Output: Urine 900 Other: Voiding Method Bedside Commode Bedside Commode Bedside Commode Diaper Diaper Diaper Incontinent Incontinent Incontinent # Bowel Movements 1 1 1 - Labs CBC & Chem 7: 10/07/23 06:22 10/07/23 06:22 Labs: Abnormal Lab Results - Last 24 Hours (Table) 10/06/23 10/06/23 10/06/23 Range/Units 17:01 17:05 21:41 WBC (4.50-10.00) X 10*3/uL RBC (4.10-5.20) X 10*6/uL Hgb (12.0-15.0) g/dL Hct (37.2-46.3) % MCHC (32.0-37.0) g/dL Plt Count (140-440) X 10*3/uL Neutrophils # (Manual) (1.80-7.70) X 10*3/uL Potassium 5.4 H (3.5-5.1) mmol/L BUN (9.0-27.0) mg/dL Creatinine (0.6-1.5) mg/dL Est GFR (CKD-EPI) (>=60) BUN/Creatinine Ratio (12.00-20.00) Ratio Glucose (70-110) mg/dL POC Glucose (mg/dL) 247 H 134 H (70-110) mg/dL Calcium (8.7-10.3) mg/dL 10/07/23 10/07/23 10/07/23 Range/Units 06:22 06:22 07:31 WBC 16.98 H (4.50-10.00) X 10*3/uL RBC 2.65 L (4.10-5.20) X 10*6/uL Hgb 7.7 L (12.0-15.0) g/dL Hct 24.3 L (37.2-46.3) % MCHC 31.7 L (32.0-37.0) g/dL Plt Count 473 H (140-440) X 10*3/uL Neutrophils # (Manual) 12.74 H (1.80-7.70) X 10*3/uL Potassium (3.5-5.1) mmol/L BUN 82.3 H (9.0-27.0) mg/dL Creatinine 2.5 H (0.6-1.5) mg/dL Est GFR (CKD-EPI) 22 L (>=60) BUN/Creatinine Ratio 32.92 H (12.00-20.00) Ratio Glucose 144 H (70-110) mg/dL POC Glucose (mg/dL) 153 H (70-110) mg/dL Calcium 8.3 L (8.7-10.3) mg/dL 10/07/23 Range/Units 12:01 WBC (4.50-10.00) X 10*3/uL RBC (4.10-5.20) X 10*6/uL Hgb (12.0-15.0) g/dL Hct (37.2-46.3) % MCHC (32.0-37.0) g/dL Plt Count (140-440) X 10*3/uL Neutrophils # (Manual) (1.80-7.70) X 10*3/uL Potassium (3.5-5.1) mmol/L BUN (9.0-27.0) mg/dL Creatinine (0.6-1.5) mg/dL Est GFR (CKD-EPI) (>=60) BUN/Creatinine Ratio (12.00-20.00) Ratio Glucose (70-110) mg/dL POC Glucose (mg/dL) 239 H (70-110) mg/dL Calcium (8.7-10.3) mg/dL Microbiology - Last 24 Hours (Table) 10/04/23 11:20 Anaerobic Culture - Preliminary Buttock 10/04/23 11:20 Anaerobic Culture - Preliminary Buttock 10/03/23 12:36 Anaerobic Culture - Final Buttock 10/04/23 11:20 Gram Stain - Final Buttock Wound Culture - Final Staphylococcus aureus 10/04/23 11:20 Gram Stain - Final Buttock Wound Culture - Final Staphylococcus aureus
--- NOTE | 2023-10-07 16:32 | P.PN ---
Subjective Progress Note Date: 10/07/23 At today's visit, pt is reporting pain on buttocks at site of abscess. Vaginal bleeding is improving. Hgb 7.7, WBC 16.9, plt 473. Continues on IV abx and antifungal. Remains afebrile Objective - Vital Signs Vital signs: Vital Signs Temp 97.3 F L 10/07/23 07:13 Pulse 93 10/07/23 07:13 Resp 17 10/07/23 08:00 BP 119/72 10/07/23 07:13 Pulse Ox 99 10/07/23 07:13 FiO2 Intake & Output 10/06/23 10/07/23 10/07/23 18:59 06:59 18:59 Intake Total 100 Output Total 900 Balance -800 Weight 132 kg Intake: Intake, IV Titration 100 Amount ceFAZolin 2 gm In Sodium 100 Chloride 0.9% 50 ml @ 100 mls/hr IVPB Q12H [facility] Rx# :[id number] Output: Urine 900 Other: Voiding Method Bedside Commode Bedside Commode Bedside Commode Diaper Diaper Diaper Incontinent Incontinent Incontinent # Bowel Movements 1 1 - Constitutional General appearance: Present: morbidly obese, no acute distress - EENT Eyes: Present: anicteric sclerae, EOMI ENT: Present: hearing grossly normal - Respiratory Details: breathing is even and unlabored - Cardiovascular Details: skin warm and dry - Integumentary Integumentary: Absent: cyanotic - Musculoskeletal Musculoskeletal: Present: generalized weakness - Psychiatric Psychiatric: Present: A&O x's 3 - Labs CBC & Chem 7: 10/07/23 06:22 10/07/23 06:22 Labs: Abnormal Lab Results - Last 24 Hours (Table) 10/04/23 10/06/23 10/06/23 Range/Units 07:30 12:30 17:01 WBC (4.50-10.00) X 10*3/uL RBC (4.10-5.20) X 10*6/uL Hgb (12.0-15.0) g/dL Hct (37.2-46.3) % MCHC (32.0-37.0) g/dL Plt Count (140-440) X 10*3/uL Neutrophils # (Manual) (1.80-7.70) X 10*3/uL Potassium 5.4 H (3.5-5.1) mmol/L BUN (9.0-27.0) mg/dL Creatinine (0.6-1.5) mg/dL Est GFR (CKD-EPI) (>=60) BUN/Creatinine Ratio (12.00-20.00) Ratio Glucose (70-110) mg/dL POC Glucose (mg/dL) 214 H (70-110) mg/dL Calcium (8.7-10.3) mg/dL RBC Folate 887 H (280 - 791) ng/mL 10/06/23 10/06/23 10/07/23 Range/Units 17:05 21:41 06:22 WBC 16.98 H (4.50-10.00) X 10*3/uL RBC 2.65 L (4.10-5.20) X 10*6/uL Hgb 7.7 L (12.0-15.0) g/dL Hct 24.3 L (37.2-46.3) % MCHC 31.7 L (32.0-37.0) g/dL Plt Count 473 H (140-440) X 10*3/uL Neutrophils # (Manual) 12.74 H (1.80-7.70) X 10*3/uL Potassium (3.5-5.1) mmol/L BUN (9.0-27.0) mg/dL Creatinine (0.6-1.5) mg/dL Est GFR (CKD-EPI) (>=60) BUN/Creatinine Ratio (12.00-20.00) Ratio Glucose (70-110) mg/dL POC Glucose (mg/dL) 247 H 134 H (70-110) mg/dL Calcium (8.7-10.3) mg/dL RBC Folate (280 - 791) ng/mL 10/07/23 10/07/23 Range/Units 06:22 07:31 WBC (4.50-10.00) X 10*3/uL RBC (4.10-5.20) X 10*6/uL Hgb (12.0-15.0) g/dL Hct (37.2-46.3) % MCHC (32.0-37.0) g/dL Plt Count (140-440) X 10*3/uL Neutrophils # (Manual) (1.80-7.70) X 10*3/uL Potassium (3.5-5.1) mmol/L BUN 82.3 H (9.0-27.0) mg/dL Creatinine 2.5 H (0.6-1.5) mg/dL Est GFR (CKD-EPI) 22 L (>=60) BUN/Creatinine Ratio 32.92 H (12.00-20.00) Ratio Glucose 144 H (70-110) mg/dL POC Glucose (mg/dL) 153 H (70-110) mg/dL Calcium 8.3 L (8.7-10.3) mg/dL RBC Folate (280 - 791) ng/mL Microbiology - Last 24 Hours (Table) 10/03/23 12:36 Anaerobic Culture - Final Buttock 10/04/23 11:20 Gram Stain - Final Buttock Wound Culture - Final Staphylococcus aureus 10/04/23 11:20 Gram Stain - Final Buttock Wound Culture - Final Staphylococcus aureus Assessment and Plan (1) Leukocytosis Current Visit: Yes Status: Acute Priority: Medium Code(s): D72.829 - ELEVATED WHITE BLOOD CELL COUNT, UNSPECIFIED SNOMED Code(s): 998882849 (2) UTI (urinary tract infection) Current Visit: Yes Status: Acute Priority: Medium Code(s): N39.0 - URINARY TRACT INFECTION, SITE NOT SPECIFIED SNOMED Code(s): 77206223 (3) Vaginal bleeding Current Visit: Yes Status: Acute Priority: High Code(s): N93.9 - ABNORMAL UTERINE AND VAGINAL BLEEDING, UNSPECIFIED SNOMED Code(s): 894726452 (4) Endometrial adenocarcinoma Current Visit: No Status: Chronic Priority: High Code(s): C54.1 - MALIGNANT NEOPLASM OF ENDOMETRIUM SNOMED Code(s): 148110863 (5) Anemia, blood loss Current Visit: Yes Status: Acute Priority: High Code(s): D50.0 - IRON DEFICIENCY ANEMIA SECONDARY TO BLOOD LOSS (CHRONIC) SNOMED Code(s): 964987980 (6) Left buttock abscess Current Visit: Yes Status: Acute Code(s): L02.31 - CUTANEOUS ABSCESS OF BUTTOCK SNOMED Code(s): 36831433 Plan: Endometrial adenocarcinoma -History of well-differentiated FIGO score 1, biopsy from January 2022. CT CAP on 03/26/23 showed no evidence of metastatic disease -Patient has not had radiation, and is not a surgical candidate because of comorbid conditions -Follows with Dr. Euceda, previously on treatment with megace, but was stopped due to VTE. She is currently on treatment with Arimidex with IUD in place -She has not had f/u with Dr. Euceda since 05/2023 due to social dynamics, lack of transportation -Patient requesting that she wants to receive care locally. Unfortunately, [facility] is not local. Discussed with patient that her PS is poor and that she would need to be stronger and be able to make f/u appts to undergo outpt treatment. R ecommended rehab may be good option so she can get stronger, however, she strongly opposed this recommendation. PT/OT has been consulted inpt. I have placed consult for home care services and SW consult for assistance with transportation/ community resources -CT abdomen pelvis without contrast showed no suspicious abnormalities to account for patient's abdominal pain. IUD noted within the lower portion of the uterine body. Uterus appears somewhat bulky and adnexa is unremarkable. -CT chest ordered for staging, showing no evidence to suggest metastatic disease to the chest. -Appears from non-contrast imaging obtained, disease has remained localized -Spoke with radiation oncology regarding possible palliative RT for worsening vaginal bleeding. Initially, brachytherapy was recommended but patient was not a candidate due to body habitus and inability to lay flat for radiation. Unfortunately, after speaking with Dr. Bradford and patient, she is still unable to tolerate laying flat, which has been exacerbated by buttocks abscess. -Had long discussion with patient regarding treatments options, and the complexity of her comorbidities and social issues causing limitations in her treatment. Recommended continued f/u with Dr. Euceda, and to continue arimidex per [facility] recommendations Patient verbalized understanding and all her questions was answered Patient is concerned about going home and having ongoing uncontrolled pain. Will place referral to palliative care. I will speak to SW to ensure patient has resources available to her upon discharge as discussed above Vaginal bleeding: -Secondary to untreated disease -CT abdomen pelvis showed no suspicious abnormalities. IUD noted within the lower portion of the uterine body. Uterus appears somewhat bulky and adnexa is unremarkable -Transvaginal US ordered, US was a limited examination with limited visualization of the uterus, endometrium and nonvisualization of the ovaries as patient was unable to tolerate exam and due to body habitus -MARINE WELDER consulted. Note reviewed, recommending to continue Eliquis, as hgb has been stable. Appreciate their recommendations -Vaginal bleeding improving Anemia: -2/2 to above, exacerbated by anticoagulation and acute infection/inflammation -Today Hgb 7.7. Hgb has been fluctuating in the 8 range through most of her admission. Has not needed blood transfusion -Anemia workup consistent with anemia of inflammation. No IV iron needed at this time -Continue to monitor CBC, transfuse for hgb less than 7 Abscess: -S/p I&D left buttocks abscess -Culture positive for S. aureus -Cefazolin started -ID and surgery following
[2023-10-07 17:18] LABS: Glucose,Whole Blood 112 mg/dL (70-110)
--- NOTE | 2023-10-07 17:19 | P.PN ---
Subjective Progress Note Date: 10/07/23 Principal diagnosis: Reason for follow-up is leukocytosis and UTI Patient is a 58-year-old female with a past medical history significant for diabetes mellitus COPD hypertension history of uterine cancer for the patient has received radiation, presenting to the hospital with weakness generalized bodyaches unable to take care of herself did have a fever positive UA concerning for symptomatic urinary tract infection. Patient is status post drainage of the left gluteal abscess by general surgery on 10/04/2023. On today's evaluation that is 10/07/2023, patient has been afebrile, patient is breathing comfortably and is currently on 4 L nasal cannula oxygen, patient d enies having any significant cough no chest pain shortness of breath, patient denies nausea vomiting or diarrhea and no abdominal pain still complaining of pain to the left gluteal area. Patient white count 16.98, creatinine 2.5 Objective - Vital Signs Vital signs: Vital Signs Temp 98.1 F 10/07/23 11:51 Pulse 84 10/07/23 11:51 Resp 18 10/07/23 11:51 BP 102/54 10/07/23 11:51 Pulse Ox 96 10/07/23 11:51 FiO2 Intake & Output 10/06/23 10/07/23 10/07/23 18:59 06:59 18:59 Intake Total 100 Output Total 900 Balance -800 Weight 132 kg Intake: Intake, IV Titration 100 Amount ceFAZolin 2 gm In Sodium 100 Chloride 0.9% 50 ml @ 100 mls/hr IVPB Q12H [facility] Rx# :[id number] Output: Urine 900 Other: Voiding Method Bedside Commode Bedside Commode Bedside Commode Diaper Diaper Diaper Incontinent Incontinent Incontinent # Bowel Movements 1 1 1 - Exam GENERAL DESCRIPTION: Middle-aged female lying in bed in no distress RESPIRATORY SYSTEM: Unlabored breathing , decreased breath sounds at bases HEART: S1 S2 regular rate and rhythm , ABDOMEN: Soft , no tenderness, left gluteal did have wound from surgical drainage and significant induration - Labs CBC & Chem 7: 10/07/23 06:22 10/07/23 06:22 Labs: Abnormal Lab Results - Last 24 Hours (Table) 10/06/23 10/06/23 10/06/23 Range/Units 17:01 17:05 21:41 WBC (4.50-10.00) X 10*3/uL RBC (4.10-5.20) X 10*6/uL Hgb (12.0-15.0) g/dL Hct (37.2-46.3) % MCHC (32.0-37.0) g/dL Plt Count (140-440) X 10*3/uL Neutrophils # (Manual) (1.80-7.70) X 10*3/uL Potassium 5.4 H (3.5-5.1) mmol/L BUN (9.0-27.0) mg/dL Creatinine (0.6-1.5) mg/dL Est GFR (CKD-EPI) (>=60) BUN/Creatinine Ratio (12.00-20.00) Ratio Glucose (70-110) mg/dL POC Glucose (mg/dL) 247 H 134 H (70-110) mg/dL Calcium (8.7-10.3) mg/dL 10/07/23 10/07/23 10/07/23 Range/Units 06:22 06:22 07:31 WBC 16.98 H (4.50-10.00) X 10*3/uL RBC 2.65 L (4.10-5.20) X 10*6/uL Hgb 7.7 L (12.0-15.0) g/dL Hct 24.3 L (37.2-46.3) % MCHC 31.7 L (32.0-37.0) g/dL Plt Count 473 H (140-440) X 10*3/uL Neutrophils # (Manual) 12.74 H (1.80-7.70) X 10*3/uL Potassium (3.5-5.1) mmol/L BUN 82.3 H (9.0-27.0) mg/dL Creatinine 2.5 H (0.6-1.5) mg/dL Est GFR (CKD-EPI) 22 L (>=60) BUN/Creatinine Ratio 32.92 H (12.00-20.00) Ratio Glucose 144 H (70-110) mg/dL POC Glucose (mg/dL) 153 H (70-110) mg/dL Calcium 8.3 L (8.7-10.3) mg/dL 10/07/23 Range/Units 12:01 WBC (4.50-10.00) X 10*3/uL RBC (4.10-5.20) X 10*6/uL Hgb (12.0-15.0) g/dL Hct (37.2-46.3) % MCHC (32.0-37.0) g/dL Plt Count (140-440) X 10*3/uL Neutrophils # (Manual) (1.80-7.70) X 10*3/uL Potassium (3.5-5.1) mmol/L BUN (9.0-27.0) mg/dL Creatinine (0.6-1.5) mg/dL Est GFR (CKD-EPI) (>=60) BUN/Creatinine Ratio (12.00-20.00) Ratio Glucose (70-110) mg/dL POC Glucose (mg/dL) 239 H (70-110) mg/dL Calcium (8.7-10.3) mg/dL Microbiology - Last 24 Hours (Table) 10/04/23 11:20 Anaerobic Culture - Preliminary Buttock 10/04/23 11:20 Anaerobic Culture - Preliminary Buttock 10/03/23 12:36 Anaerobic Culture - Final Buttock 10/04/23 11:20 Gram Stain - Final Buttock Wound Culture - Final Staphylococcus aureus 10/04/23 11:20 Gram Stain - Final Buttock Wound Culture - Final Staphylococcus aureus Assessment and Plan (1) Sepsis Current Visit: Yes Status: Acute Code(s): A41.9 - SEPSIS, UNSPECIFIED ORGANISM SNOMED Code(s): 51020879 (2) Allergy to multiple antibiotics Current Visit: Yes Status: Acute Code(s): Z88.1 - ALLERGY STATUS TO OTHER ANTIBIOTIC AGENTS SNOMED Code(s): 873605790 (3) UTI (urinary tract infection) Current Visit: Yes Status: Acute Priority: Medium Code(s): N39.0 - URINARY TRACT INFECTION, SITE NOT SPECIFIED SNOMED Code(s): 07133786 Plan: 1patient presented hospital with sepsis in this patient who did have a fever tachycardia elevated white count did have significantly positive UA likely source of the sepsis patient chest x-ray was negative for any acute infiltrate and no tenderness on abdominal examination to be suspicious for abdominal source. 2patient with multiple antibiotic ALLERGIES that would limit the number of antibiotic safe to use. 3renal insufficiency and high risk of nephrotoxicity. 4patient urine culture has been finalized with Shelly albicans received adequate Eraxis will discontinue Eraxis 5left gluteal abscess local cultures s/p surgical drainage cultures currently growing MSSA patient to continue cefazolin will need a PICC line for outpatient IV antibiotic therapy and will benefit from a wound VAC Dictation was produced using [employer] dictation software. please excuse any grammatical, word or spelling errors. . Time with Patient: Less than 30
--- NOTE | 2023-10-07 18:28 | P.PN ---
Subjective patient is seen for follow-up for acute kidney injury and hyperkalemia. currently maintained on IV bicarb based in 0.45 normal saline. No urine retention noted. Serum potassium improved to 5.4. Blood sugars have improved as well. Serum creatinine staying at about 2.5 mg/dL. Urine output documented at 900 mL for 24 hours. Patient has an external catheter. BP is improved and systolic blood pressure is staying above 100 mmHg. Objective - Vital Signs Vital signs: Vital Signs Temp 98.1 F 10/07/23 11:51 Pulse 84 10/07/23 11:51 Resp 18 10/07/23 11:51 BP 102/54 10/07/23 11:51 Pulse Ox 100 10/07/23 15:55 FiO2 Intake & Output 10/06/23 10/07/23 10/07/23 18:59 06:59 18:59 Intake Total 100 Output Total 900 Balance -800 Weight 132 kg Intake: Intake, IV Titration 100 Amount ceFAZolin 2 gm In Sodium 100 Chloride 0.9% 50 ml @ 100 mls/hr IVPB Q12H [facility] Rx# :[id number] Output: Urine 900 Other: Voiding Method Bedside Commode Bedside Commode Bedside Commode Diaper Diaper Diaper Incontinent Incontinent Incontinent # Bowel Movements 1 1 1 - Exam patient is awake, comfortable, no acute distress. Examination of the heart S1 and S2 Examination of the lungs decreased breath sounds at the bases Abdomen is soft obese Examination lower extremity shows no significant edema MANAGER BANQUET exam grossly intact - Labs CBC & Chem 7: 10/07/23 06:22 10/07/23 06:22 Labs: Abnormal Lab Results - Last 24 Hours (Table) 10/06/23 10/07/23 10/07/23 Range/Units 21:41 06:22 06:22 WBC 16.98 H (4.50-10.00) X 10*3/uL RBC 2.65 L (4.10-5.20) X 10*6/uL Hgb 7.7 L (12.0-15.0) g/dL Hct 24.3 L (37.2-46.3) % MCHC 31.7 L (32.0-37.0) g/dL Plt Count 473 H (140-440) X 10*3/uL Neutrophils # (Manual) 12.74 H (1.80-7.70) X 10*3/uL BUN 82.3 H (9.0-27.0) mg/dL Creatinine 2.5 H (0.6-1.5) mg/dL Est GFR (CKD-EPI) 22 L (>=60) BUN/Creatinine Ratio 32.92 H (12.00-20.00) Ratio Glucose 144 H (70-110) mg/dL POC Glucose (mg/dL) 134 H (70-110) mg/dL Calcium 8.3 L (8.7-10.3) mg/dL 10/07/23 10/07/23 10/07/23 Range/Units 07:31 12:01 17:15 WBC (4.50-10.00) X 10*3/uL RBC (4.10-5.20) X 10*6/uL Hgb (12.0-15.0) g/dL Hct (37.2-46.3) % MCHC (32.0-37.0) g/dL Plt Count (140-440) X 10*3/uL Neutrophils # (Manual) (1.80-7.70) X 10*3/uL BUN (9.0-27.0) mg/dL Creatinine (0.6-1.5) mg/dL Est GFR (CKD-EPI) (>=60) BUN/Creatinine Ratio (12.00-20.00) Ratio Glucose (70-110) mg/dL POC Glucose (mg/dL) 153 H 239 H 112 H (70-110) mg/dL Calcium (8.7-10.3) mg/dL Microbiology - Last 24 Hours (Table) 10/04/23 11:20 Anaerobic Culture - Preliminary Buttock 10/04/23 11:20 Anaerobic Culture - Preliminary Buttock 10/03/23 12:36 Anaerobic Culture - Final Buttock 10/04/23 11:20 Gram Stain - Final Buttock Wound Culture - Final Staphylococcus aureus 10/04/23 11:20 Gram Stain - Final Buttock Wound Culture - Final Staphylococcus aureus Assessment and Plan Assessment: 1. Acute kidney injury, nonoliguric ATN secondary to sepsis and hypotension. No obvious obstruction noted on CT of the abdomen on 10/01/2023. BP remains on the lower side. 2. Hyperkalemia associated with acute kidney injury and hyperglycemia. 3. Non-gap metabolic acidosis associated with acute kidney injury 4. Endometrial cancer with no metastases noted on CT chest, being followed by oncology. 5. Chronic kidney disease NKF stage III with lowest creatinine at 1.2-1.4 mg/dL in May of this year. Otherwise the creatinine has been mostly around 1.9-2 mg/dL. 6. Fungal UTI 7. Anemia secondary to vaginal bleeding/endometrial cancer 8. History of SLE maintained on plaquenil. No recent follow-up with rheumato logy. Plan: continue IV sodium bicarb for 1 more day. Continue off of farxiga due to fungal UTI and gluteal abscess. Continue to maintain blood sugars less than 180. Low potassium diet Repeat labs in a.m.
[2023-10-07 20:33] LABS: Glucose,Whole Blood 159 mg/dL (70-110)
[2023-10-08 05:00] LABS: Methylmalonic Acid 1.14 umol/L (<0.40)
[2023-10-08 07:45] LABS: Glucose,Whole Blood 163 mg/dL (70-110)
[2023-10-08 08:17] LABS: African American GFR (CKD) 27 (>60 ml/min/1.73 sqM); Anion Gap 3 mmol/L; Blood Urea Nitrogen 73 mg/dL (7-17); Calcium 8.6 mg/dL (8.4-10.2); Carbon Dioxide 29 mmol/L (22-30); Chloride 109 mmol/L (98-107); Glucose 156 mg/dL (74-99); Magnesium 1.7 mg/dL (1.6-2.3); Non-African American GFR(CKD) 23 (>60 ml/min/1.73 sqM); Potassium 4.9 mmol/L (3.5-5.1); Sodium 141 mmol/L (137-145)
[2023-10-08 08:25] LABS: Basophils # (A) 0.1 k/uL (0-0.2); Basophils % (A) 1 %; Eosinophils # (A) 0.5 k/uL (0-0.7); Eosinophils % (A) 4 %; HCT 25.6 % (34.0-46.0); Hypochromasia Slight; Lymphocytes # (A) 3.5 k/uL (1.0-4.8); Lymphocytes % (A) 25 %; MCH 28.2 pg (25.0-35.0); MCHC 30.4 g/dL (31.0-37.0); MCV 92.9 fL (80.0-100.0); Monocytes # (A) 0.8 k/uL (0-1.0); Monocytes % (A) 5 %; Neutrophils # (A) 9.1 k/uL (1.3-7.7); Neutrophils % (A) 65 %; Platelet Count 462 k/uL (150-450); RBC 2.76 m/uL (3.80-5.40); RDW 13.4 % (11.5-15.5); WBC 14.1 k/uL (3.8-10.6)
[2023-10-08 08:29] LABS: HGB 7.8 gm/dL (11.4-16.0)
[2023-10-08] MEDS: LACTATED RINGERS 1,000 ML IV SCH (10:40)
--- NOTE | 2023-10-08 11:00 | P.PN ---
Subjective Progress Note Date: 10/08/23 This is a 58-year-old patient being seen on [address] for ulceration to the left buttocks. Patient states that the area has been bothering her for the last few weeks. Her has been putting dressings on it with minimal drainage. Patient has an abscess measuring 2 x 3 cm with ecchymosis and purulent drainage from the site. Area is tender to palpation,Erythema induration and fluctuance noted. 10/08/2023: Patient is being seen on [address] for post I&D of a left buttocks abscess. Patient currently is utilizing absorptive silver rope to the site. Patient states that the pain has improved however is still very uncomfortable for her to lay on her back. Ulceration measures approximately 1.3 x 4 x 5 cm. Patient has slough and nonviable tissue present. No tunneling or undermining noted. Patient does have an area of eschar to the superior portion of the ulceration. Patient is hoping to go to the extended care facility for management. Review Of Systems: Constitutional: No fever, no chills, no night sweats. No weight change. No weakness, fatigue or lethargy. No daytime sleepiness. Integumentary:reports wounds, no lesions. No rash or pruritus. No unusual bruising. No change in hair or nails. Physical exam: General Appearance: Alert, cooperative, no distress, appears stated age. Skin: See HPI all other Skin color, texture, tugor normal, no rashes or lesions. Neurologic: Alert oriented x3 Assessment: 1. Abscess left buttocks 2. Diabetes with skin ulceration Plan: 1. Utilize a negative pressure wound VAC at 125 mmHg continuous pressure with black foam to the site. Utilize Skin-Prep. Change Friday. If patient is unable to tolerate the negative pressure wound VAC will return to absorptive silver rope to the site with bordered foam change Friday. Discussed with the patient the importance of offloading utilizing air- filled cushions while sitting. Patient would benefit from advanced wound care and wound care setting. We be happy to see her upon discharge. Patient states that she is planning to go to the extended-care facility and would like to have wound care there and not to be transferred to a tertiary center. Thank you for the consultation any questions please contact the wound care center DNP note has been reviewed and discussed with Dr. Gandhi and the impression and plan of care has been directed as dictated. Objective - Vital Signs Vital signs: Vital Signs Temp 98.2 F 10/08/23 07:40 Pulse 93 10/08/23 07:40 Resp 17 10/08/23 07:40 BP 108/68 10/08/23 07:40 Pulse Ox 100 10/08/23 07:40 FiO2 Intake & Output 10/07/23 10/08/23 10/08/23 18:59 06:59 18:59 Intake Total 750 Balance 750 Weight 129.5 kg Intake: Intake, IV Titration 750 Amount Sodium Chloride 0.45% 1, 750 000 ml @ 75 mls/hr IV . [id number] [facility] with Sodium Bicarb (1 Meq/ml) 100 ml Rx#:[id number] Other: Voiding Method Bedside Commode Bedside Commode Diaper Diaper Incontinent Incontinent External Catheter # Voids 1 # Bowel Movements 1 1 - Labs CBC & Chem 7: 10/08/23 07:16 10/08/23 07:16 Labs: Abnormal Lab Results - Last 24 Hours (Table) 10/04/23 10/07/23 10/07/23 Range/Units 07:30 06:22 06:22 WBC (3.8-10.6) k/uL RBC (3.80-5.40) m/uL Hgb (11.4-16.0) gm/dL Hct (34.0-46.0) % MCHC (31.0-37.0) g/dL Plt Count (150-450) k/uL Neutrophils # (1.3-7.7) k/uL Neutrophils # (Manual) 12.74 H (1.80-7.70) X 10*3/uL Chloride (98-107) mmol/L BUN 82.3 H (9.0-27.0) mg/dL Creatinine 2.5 H (0.6-1.5) mg/dL Est GFR (CKD-EPI) 22 L (>=60) BUN/Creatinine Ratio 32.92 H (12.00-20.00) Ratio Glucose 144 H (70-110) mg/dL POC Glucose (mg/dL) (70-110) mg/dL Calcium 8.3 L (8.7-10.3) mg/dL Methylmalonic Acid 1.14 H (<0.40) umol/L 10/07/23 10/07/23 10/07/23 Range/Units 12:01 17:15 20:31 WBC (3.8-10.6) k/uL RBC (3.80-5.40) m/uL Hgb (11.4-16.0) gm/dL Hct (34.0-46.0) % MCHC (31.0-37.0) g/dL Plt Count (150-450) k/uL Neutrophils # (1.3-7.7) k/uL Neutrophils # (Manual) (1.80-7.70) X 10*3/uL Chloride (98-107) mmol/L BUN (9.0-27.0) mg/dL Creatinine (0.6-1.5) mg/dL Est GFR (CKD-EPI) (>=60) BUN/Creatinine Ratio (12.00-20.00) Ratio Glucose (70-110) mg/dL POC Glucose (mg/dL) 239 H 112 H 159 H (70-110) mg/dL Calcium (8.7-10.3) mg/dL Methylmalonic Acid (<0.40) umol/L 10/08/23 10/08/23 10/08/23 Range/Units 07:16 07:16 07:44 WBC 14.1 H (3.8-10.6) k/uL RBC 2.76 L (3.80-5.40) m/uL Hgb 7.8 L D (11.4-16.0) gm/dL Hct 25.6 L (34.0-46.0) % MCHC 30.4 L (31.0-37.0) g/dL Plt Count 462 H (150-450) k/uL Neutrophils # 9.1 H (1.3-7.7) k/uL Neutrophils # (Manual) (1.80-7.70) X 10*3/uL Chloride 109 H (98-107) mmol/L BUN 73 H (9.0-27.0) mg/dL Creatinine 2.27 H (0.6-1.5) mg/dL Est GFR (CKD-EPI) (>=60) BUN/Creatinine Ratio (12.00-20.00) Ratio Glucose 156 H (70-110) mg/dL POC Glucose (mg/dL) 163 H (70-110) mg/dL Calcium (8.7-10.3) mg/dL Methylmalonic Acid (<0.40) umol/L Microbiology - Last 24 Hours (Table) 10/04/23 11:20 Anaerobic Culture - Preliminary Buttock 10/04/23 11:20 Anaerobic Culture - Preliminary Buttock 10/03/23 12:36 Anaerobic Culture - Final Buttock 10/04/23 11:20 Gram Stain - Final Buttock Wound Culture - Final Staphylococcus aureus 10/04/23 11:20 Gram Stain - Final Buttock Wound Culture - Final Staphylococcus aureus Assessment and Plan (1) 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
--- NOTE | 2023-10-08 12:30 | P.PN ---
Subjective Progress Note Date: 10/08/23 CHIEF COMPLAINT: Buttock abscess HISTORY OF PRESENT ILLNESS: Postop day #4 status post incision and drainage of the left buttock abscess. Patient reports she is feeling better. Her pain is controlled. She has been seen by wound care service and they have ordered a wound VAC. Patient is planning on being discharged to [facility]. Afebrile. WBC 16.9 down to 14.1 PHYSICAL EXAM: VITAL SIGNS: Reviewed. GENERAL: no acute distress. ABDOMEN: Soft. Nondistended. Nontender. ASSESSMENT: 1. Left buttock abscess status post incision and drainage 2. UTI PLAN: -Agree with wound VAC placement -Continue wound care -Discharge antibiotics per infectious disease -Patient is stable from surgical standpoint for discharge when medically cleared Physician Box Lidder note has been reviewed by physician. Signing provider agrees with the documented findings, assessment, and plan of care. Objective - Vital Signs Vital signs: Vital Signs Temp 98.2 F 10/08/23 07:40 Pulse 82 10/08/23 11:49 Resp 17 10/08/23 07:40 BP 102/63 10/08/23 11:49 Pulse Ox 100 10/08/23 07:40 FiO2 Intake & Output 10/07/23 10/08/23 10/08/23 18:59 06:59 18:59 Intake Total 750 Balance 750 Weight 129.5 kg Intake: Intake, IV Titration 750 Amount Sodium Chloride 0.45% 1, 750 000 ml @ 75 mls/hr IV . [id number] VANIA with Sodium Bicarb (1 Meq/ml) 100 ml Rx#:[id number] Other: Voiding Method Bedside Commode Bedside Commode Diaper Diaper Incontinent Incontinent External Catheter # Voids 1 # Bowel Movements 1 1 - Labs CBC & Chem 7: 10/08/23 07:16 10/08/23 07:16 Labs: Abnormal Lab Results - Last 24 Hours (Table) 10/04/23 10/07/23 10/07/23 Range/Units 07:30 17:15 20:31 WBC (3.8-10.6) k/uL RBC (3.80-5.40) m/uL Hgb (11.4-16.0) gm/dL Hct (34.0-46.0) % MCHC (31.0-37.0) g/dL Plt Count (150-450) k/uL Neutrophils # (1.3-7.7) k/uL Chloride (98-107) mmol/L BUN (7-17) mg/dL Creatinine (0.52-1.04) mg/dL Glucose (74-99) mg/dL POC Glucose (mg/dL) 112 H 159 H (70-110) mg/dL Methylmalonic Acid 1.14 H (<0.40) umol/L 10/08/23 10/08/23 10/08/23 Range/Units 07:16 07:16 07:44 WBC 14.1 H (3.8-10.6) k/uL RBC 2.76 L (3.80-5.40) m/uL Hgb 7.8 L D (11.4-16.0) gm/dL Hct 25.6 L (34.0-46.0) % MCHC 30.4 L (31.0-37.0) g/dL Plt Count 462 H (150-450) k/uL Neutrophils # 9.1 H (1.3-7.7) k/uL Chloride 109 H (98-107) mmol/L BUN 73 H (7-17) mg/dL Creatinine 2.27 H (0.52-1.04) mg/dL Glucose 156 H (74-99) mg/dL POC Glucose (mg/dL) 163 H (70-110) mg/dL Methylmalonic Acid (<0.40) umol/L Microbiology - Last 24 Hours (Table) 10/04/23 11:20 Anaerobic Culture - Preliminary Buttock 10/04/23 11:20 Anaerobic Culture - Preliminary Buttock 10/03/23 12:36 Anaerobic Culture - Final Buttock 10/04/23 11:20 Gram Stain - Final Buttock Wound Culture - Final Staphylococcus aureus 10/04/23 11:20 Gram Stain - Final Buttock Wound Culture - Final Staphylococcus aureus
[2023-10-08 12:31] LABS: Glucose,Whole Blood 211 mg/dL (70-110)
--- NOTE | 2023-10-08 13:41 | P.PN ---
Subjective patient is seen for follow-up for acute kidney injury and hyperkalemia. currently maintained on IV bicarb based in 0.45 normal saline. No urine retention noted. Serum potassium improved to 4.9. Blood sugars have improved as well. Serum creatinine decreased to 2.2 mg/dL today. Urine output documented at 900 mL for 24 hours. Patient has an external catheter. Objective - Vital Signs Vital signs: Vital Signs Temp 98.0 F 10/08/23 12:27 Pulse 79 10/08/23 12:27 Resp 17 10/08/23 12:27 BP 90/55 10/08/23 12:27 Pulse Ox 99 10/08/23 12:27 FiO2 Intake & Output 10/07/23 10/08/23 10/08/23 18:59 06:59 18:59 Intake Total 750 Balance 750 Weight 129.5 kg Intake: Intake, IV Titration 750 Amount Sodium Chloride 0.45% 1, 750 000 ml @ 75 mls/hr IV . [id number] VANIA with Sodium Bicarb (1 Meq/ml) 100 ml Rx#:[id number] Other: Voiding Method Bedside Commode Bedside Commode Diaper Diaper Incontinent Incontinent External Catheter # Voids 1 # Bowel Movements 1 1 - Exam patient is awake, comfortable, no acute distress. 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 - Labs CBC & Chem 7: 10/08/23 07:16 10/08/23 07:16 Labs: Abnormal Lab Results - Last 24 Hours (Table) 10/04/23 10/07/23 10/07/23 Range/Units 07:30 17:15 20:31 WBC (3.8-10.6) k/uL RBC (3.80-5.40) m/uL Hgb (11.4-16.0) gm/dL Hct (34.0-46.0) % MCHC (31.0-37.0) g/dL Plt Count (150-450) k/uL Neutrophils # (1.3-7.7) k/uL Chloride (98-107) mmol/L BUN (7-17) mg/dL Creatinine (0.52-1.04) mg/dL Glucose (74-99) mg/dL POC Glucose (mg/dL) 112 H 159 H (70-110) mg/dL Methylmalonic Acid 1.14 H (<0.40) umol/L 10/08/23 10/08/23 10/08/23 Range/Units 07:16 07:16 07:44 WBC 14.1 H (3.8-10.6) k/uL RBC 2.76 L (3.80-5.40) m/uL Hgb 7.8 L D (11.4-16.0) gm/dL Hct 25.6 L (34.0-46.0) % MCHC 30.4 L (31.0-37.0) g/dL Plt Count 462 H (150-450) k/uL Neutrophils # 9.1 H (1.3-7.7) k/uL Chloride 109 H (98-107) mmol/L BUN 73 H (7-17) mg/dL Creatinine 2.27 H (0.52-1.04) mg/dL Glucose 156 H (74-99) mg/dL POC Glucose (mg/dL) 163 H (70-110) mg/dL Methylmalonic Acid (<0.40) umol/L 10/08/23 Range/Units 12:30 WBC (3.8-10.6) k/uL RBC (3.80-5.40) m/uL Hgb (11.4-16.0) gm/dL Hct (34.0-46.0) % MCHC (31.0-37.0) g/dL Plt Count (150-450) k/uL Neutrophils # (1.3-7.7) k/uL Chloride (98-107) mmol/L BUN (7-17) mg/dL Creatinine (0.52-1.04) mg/dL Glucose (74-99) mg/dL POC Glucose (mg/dL) 211 H (70-110) mg/dL Methylmalonic Acid (<0.40) umol/L Microbiology - Last 24 Hours (Table) 10/04/23 11:20 Anaerobic Culture - Preliminary Buttock 10/04/23 11:20 Anaerobic Culture - Preliminary Buttock 10/03/23 12:36 Anaerobic Culture - Final Buttock Assessment and Plan Assessment: 1. Acute kidney injury, nonoliguric ATN secondary to sepsis and hypotension. No obvious obstruction noted on CT of the abdomen on 10/01/2023. BP remains on the lower side. 2. Hyperkalemia associated with acute kidney injury and hyperglycemia. 3. Non-gap metabolic acidosis associated with acute kidney injury 4. Endometrial cancer with no metastases noted on CT chest, being followed by oncology. 5. Chronic kidney disease NKF stage III with lowest creatinine at 1.2-1.4 mg/dL in May of this year. Otherwise the creatinine has been mostly around 1.9-2 mg/dL. 6. Fungal UTI 7. Anemia secondary to vaginal bleeding/endometrial cancer 8. History of SLE maintained on plaquenil. No recent follow-up with rheumatology. Plan: DC IV bicarb Switch to Ringer lactate Continue off of farxiga due to fungal UTI and gluteal abscess. Continue to maintain blood sugars less than 180. Low potassium diet Repeat labs in a.m.
--- NOTE | 2023-10-08 16:07 | XR ---
EXAMINATION TYPE: XR chest 1V DATE OF EXAM: 10/08/2023 COMPARISON: 09/27/2023 HISTORY: 58-year-old female for placement of PICC line TECHNIQUE: Single frontal view of the chest is obtained. FINDINGS: Heart is enlarged. Right PICC tip in the mid SVC level. Distention of the azygos vein. Analy ble to exclude focal right basilar opacity. No sizable pleural effusion. IMPRESSION: 1. Right PICC tip at the mid SVC level. 2. Possible distention of the azygos vein. Given cardiomegaly, consider fluid overload state. 3. Unable to exclude new focal airspace disease at the right base.
[2023-10-08 17:11] LABS: Glucose,Whole Blood 155 mg/dL (70-110)
[2023-10-08 20:14] LABS: Glucose,Whole Blood 170 mg/dL (70-110)
[2023-10-09 07:02] LABS: Glucose,Whole Blood 108 mg/dL (70-110)
--- NOTE | 2023-10-09 07:26 | P.PN ---
Subjective Progress Note Date: 10/08/23 This is a 58-year-old female who was recently admitted with UTI and sepsis, present on admission. Patient being followed by general surgery along with infectious disease and patient had a left buttock abscess status post I&D. Cultures are showing Staph aureus with sensitivities and urine culture finalized with Shelly albicans. Blood cultures are negative. Patient would benefit from ECF for extensive wound care, antibiotic therapy, and generalized weakness. Patient is adamant she is going home and currently does not have a primary care provider. Social work is following working on discharge planning including making arrangements for home health care. White count remains elevated although is trending down and currently 16.9 today. Hemoglobin is 7.7 and creatinine is stable at 2.5. Potassium 5.4 and recommend to continue with low potassium renal diet. Continue monitoring blood sugars as blood sugars remain elevated and patient is poorly controlled. Patient is extremely noncompliant with medications and follow-up outpatient making it difficult to arrange for safe discharge planning home. 10/08/2023 Patient is seen in follow-up this morning currently out of the bed working with physical therapy with significant weakness. Plan is for patient to receive a PICC line and possible wound VAC of the left buttock with infectious disease following. Patient to continue on antibiotics along with antifungals as urine culture finalized showing Shelly. Patient is afebrile with no reports of chest pain or worsening shortness of breath. Patient chronically wears supplemental oxygen for COPD and is continued on DuoNeb treatments. Continue low potassium renal diet along with consistent carb and monitoring blood sugars closely. Patient initially was reluctant for rehab although given wound care and IV antibiotic needs patient is now agreeable she feels she cannot handle this on her own at home. Patient has been accepted at [facility] currently awaiting insurance authorization. Review of systems: Constitutional: No reports of fatigue, fever, or chills Cardiovascular: No reports of chest pain or palpitations Respiratory: reports of shortness of breath and occasional cough GI: No reports of nausea, no reports of vomiting, no reports of diarrhea : No reports of dysuria or retention Neurovascular: reports of generalized weakness All medications have been reviewed PHYSICAL EXAMINATION: GENERAL: The patient is alert and oriented x4, Well developed, well nourished. Morbidly obese, unkempt HEENT: Pupils are round and equally reacting to light. EOMI. no scleral icterus. No conjunctival pallor. Normocephalic, atraumatic. No pharyngeal erythema. No thyromegaly. CARDIOVASCULAR: S1 and S2 muffled PULMONARY: diminished breath sounds bilaterally with no wheezing, coarse rhonchi noted. ABDOMEN: soft. Nontender on exam. obese. non-distended, normoactive bowel sounds. No palpable organomegaly. MUSCULOSKELETAL: No joint swelling or deformity. EXTREMITIES: No cyanosis, clubbing, or pedal edema. NEUROLOGICAL: Gross neurological examination did not reveal any focal deficits. Diffuse weakness SKIN: No rashes. Assessment: Urinary tract infection, present on admission with sepsis, urine culture finalized as Shelly Left buttock abscess, present on admission, status post I&D with culture showing Staph aureus Hyperkalemia, improved Diabetes mellitus, type II, uncontrolled with hyperglycemia History of chronic kidney disease, stage IV History of pulmonary embolism History of endometrial carcinoma with chronic vaginal bleeding Status post IVC filter placement Acute renal failure Morbid obesity with a BMI of 47.0 GI prophylaxis DVT prophylaxis Full code Plan: Recommend to continue with current medications and management with general surgery and infectious disease following. Culture showing Staph aureus with sensitivities Continue local wound care and will discuss further with infectious disease regarding discharge planning. Patient may benefit from a wound VAC and rehab for extensive wound care although patient is adamant she is going home. After further discussion with patient she is now agreeable as she also will require IV antibiotics and a PICC line on discharge. Patient has been accepted at [facility] with social work following and has submitted for insurance authorization which is pending at this time. Encouraged to increase activity as tolerated including sitting up in the chair or wheelchair and out of the bed more frequently Will follow-up on repeat labs and monitor the white count Continue monitoring Accu-Cheks before meals and at bedtime and will continue consistent carb renal diet Nephrology following and patient remains on sodium bicarb Due to multiple complex medical issues, overall prognosis is extremely guarded Will discuss further with other consultations regarding discharge planning. Possible discharge in the next 24 to 48 hours. The impression and plan of care has been dictated by Fabienne Fortune, nurse practitioner as directed. Dr. Karsten MD I have performed a history and examination and MDM of this patient, discussed the same with the dictator, and agree with the dictator's assessment and plan as written ,documented as a scribe. Based on total visit time, I have performed more than 50% of the visit. Any additional findings or plans will be noted. Objective - Vital Signs Vital signs: Vital Signs Temp 97.4 F L 10/09/23 02:00 Pulse 79 10/09/23 02:00 Resp 18 10/09/23 02:00 BP 105/66 10/09/23 02:00 Pulse Ox 99 10/09/23 02:00 FiO2 Intake & Output 10/08/23 10/09/23 10/09/23 18:59 06:59 18:59 Output Total 1 Balance -1 Weight 133 kg Output: Urine/Stool Mix 1 Other: Voiding Method Bedside Commode Bedside Commode Diaper Diaper Incontinent # Voids 4 1 # Bowel Movements 4 - Labs CBC & Chem 7: 10/08/23 07:16 10/08/23 07:16 Labs: Abnormal Lab Results - Last 24 Hours (Table) 10/08/23 10/08/23 10/08/23 Range/Units 07:16 07:16 07:44 WBC 14.1 H (3.8-10.6) k/uL RBC 2.76 L (3.80-5.40) m/uL Hgb 7.8 L D (11.4-16.0) gm/dL Hct 25.6 L (34.0-46.0) % MCHC 30.4 L (31.0-37.0) g/dL Plt Count 462 H (150-450) k/uL Neutrophils # 9.1 H (1.3-7.7) k/uL Chloride 109 H (98-107) mmol/L BUN 73 H (7-17) mg/dL Creatinine 2.27 H (0.52-1.04) mg/dL Glucose 156 H (74-99) mg/dL POC Glucose (mg/dL) 163 H (70-110) mg/dL 10/08/23 10/08/23 10/08/23 Range/Units 12:30 17:10 20:11 WBC (3.8-10.6) k/uL RBC (3.80-5.40) m/uL Hgb (11.4-16.0) gm/dL Hct (34.0-46.0) % MCHC (31.0-37.0) g/dL Plt Count (150-450) k/uL Neutrophils # (1.3-7.7) k/uL Chloride (98-107) mmol/L BUN (7-17) mg/dL Creatinine (0.52-1.04) mg/dL Glucose (74-99) mg/dL POC Glucose (mg/dL) 211 H 155 H 170 H (70-110) mg/dL
[2023-10-09 08:22] LABS: Basophils # (A) 0.1 k/uL (0-0.2); Basophils % (A) 1 %; Eosinophils # (A) 0.6 k/uL (0-0.7); Eosinophils % (A) 3 %; HCT 28.2 % (34.0-46.0); HGB 8.4 gm/dL (11.4-16.0); Hypochromasia Moderate; Lymphocytes # (A) 3.4 k/uL (1.0-4.8); Lymphocytes % (A) 20 %; MCH 27.7 pg (25.0-35.0); MCHC 29.7 g/dL (31.0-37.0); MCV 93.2 fL (80.0-100.0); Mean Platelet Volume 7.8; Monocytes # (A) 0.7 k/uL (0-1.0); Monocytes % (A) 4 %; Neutrophils # (A) 11.8 k/uL (1.3-7.7); Neutrophils % (A) 71 %; Platelet Count 511 k/uL (150-450); RBC 3.03 m/uL (3.80-5.40); RDW 13.5 % (11.5-15.5); WBC 16.7 k/uL (3.8-10.6)
[2023-10-09 08:38] LABS: African American GFR (CKD) 27 (>60 ml/min/1.73 sqM); Anion Gap 6 mmol/L; Blood Urea Nitrogen 73 mg/dL (7-17); Calcium 8.9 mg/dL (8.4-10.2); Carbon Dioxide 28 mmol/L (22-30); Chloride 109 mmol/L (98-107); Glucose 87 mg/dL (74-99); Non-African American GFR(CKD) 23 (>60 ml/min/1.73 sqM); Potassium 5.2 mmol/L (3.5-5.1); Sodium 143 mmol/L (137-145)
[2023-10-09 12:15] LABS: Glucose,Whole Blood 127 mg/dL (70-110)
[2023-10-09 12:21] VITALS: BP 109/71; PULSE 83; RESP 17; TEMP 98.3
--- NOTE | 2023-10-09 13:30 | P.DS ---
Providers Date of admission: 09/27/23 10:17 Expected date of discharge: 10/09/23 Attending physician: Isabela Shelley Consults: 09/27/23 11:19 Consult Physician Urgent Consulting Provider: Abner Alva Consult Reason/Comments: acute uti - hx klebsiella uti Do you want consulting provider notified?: Yes 10/02/23 12:49 Consult Physician Routine Consulting Provider: Pablo Martin Consult Reason/Comments: Uterine cancer, patient wants to talk to Oncology Do you want consulting provider notified?: Yes 10/03/23 11:50 Consult Physician Routine Consulting Provider: Anjel Chairez Consult Reason/Comments: Left buttock abscess Do you want consulting provider notified?: Yes 10/03/23 15:16 Consult Physician Routine Consulting Provider: Jia Jefferson Consult Reason/Comments: hx endometrial cancer, worsening vaginal bleeding, on eliquis Do you want consulting provider notified?: Yes 10/04/23 16:34 Consult Physician Routine Consulting Provider: Trudy Sparks Consult Reason/Comments: CKD, Hyperkalemia Do you want consulting provider notified?: Yes Primary care physician: Stated None Hospital Course: Final diagnosis Urinary tract infection, present on admission with sepsis, urine culture finalized as Shelly Left buttock abscess, present on admission, status post I&D with culture showing Staph aureus Status post PICC line placement for IV antibiotic therapy on discharge Hyperkalemia, improved Diabetes mellitus, type II, uncontrolled with hyperglycemia History of chronic kidney disease, stage IV History of pulmonary embolism History of endometrial carcinoma with chronic vaginal bleeding, not a surgical candidate Status post IVC filter placement Acute renal failure Morbid obesity with a BMI of 47.0 GI prophylaxis DVT prophylaxis Full code Discharge disposition Patient is being discharged in a stable condition with guarded prognosis to [facility]. Patient will follow-up with Dr. Mckenzie in the outpatient setting upon discharge. Patient is to continue with IV antibiotics with a PICC line per ID recommendations in the form of cefazolin patient to follow-up with nephrology as well is infectious disease and the wound care center as scheduled. Total time taken is greater than 35 minutes. Hospital course This is a 58-year-old female who was recently admitted with acute urinary tract infection along with a left gluteal abscess status post I&D with cultures growing MSSA. Urine culture finalized with Shelly and patient was maintained on antifungals along with antibiotics. Patient has received a PICC line per ID recommendations as cultures from I&D showed MSSA and will continue on IV cefazolin on discharge. Patient to follow-up with the wound care center and would benefit from a wound VAC to the left gluteal abscess area. Patient is a diabetic recommending renal/diabetic/heart healthy diet. Patient has significant comorbidities and difficulty taking care of herself and given that she has extensive wound care and IV antibiotics patient is now agreeable to going to [facility]. Patient has been accepted at [facility] and insurance authorization was obtained. Please refer to other consultation notes for further HPI Currently no reports of chest pain, shortness of breath, or palpitations. Patient is afebrile. No reports of nausea or vomiting and patient is tolerating diet. Patient will be going to [facility] today. Patient needs to establish with a primary care provider as well. Prognosis is guarded and patient is high risk for readmissions given significant comorbidities, inability to follow-up and compliance with medications and follow-up. Physical exam: Gen: This is a 58-year-old female who is awake, alert and oriented x 3, well- developed, elderly appearing, unkempt, morbidly obese HEENT: Head is atraumatic, normocephalic. Pupils equal, round. Sclerae is anicteric. NECK: Supple. No JVD. No lymphadenopathy. No thyromegaly. LUNGS: Diminished breath sounds bilaterally otherwise clear to auscultation. No wheezes or rhonchi. No intercostal retractions. HEART: S1, S2 are muffled ABDOMEN: Soft. Obese bowel sounds are present. No masses. No tenderness. EXTREMITIES: No pedal edema. No calf tenderness. Generalized edema noted bilaterally of upper and lower extremities NEUROLOGICAL: Patient is awake, alert and oriented x3. Cranial nerves 2 through 12 are grossly intact. Diffusely weak, mostly wheelchair-bound Please refer to medication reconciliation sheet for a list of medications. The impression and plan of care has been dictated by Fabienne Fortune, Nurse Practitioner as directed. Hinkle MD I have performed a history and examination and MDM of this patient, discussed the same with the dictator, and agree with the dictator's assessment and plan as written ,documented as a scribe. Based on total visit time, I have performed more than 50% of the visit. Patient Condition at Discharge: Fair Plan - Discharge Summary New Discharge Prescriptions: New Insulin Detemir (Levemir) [Levemir] 15 unit SQ HS each Nystatin 100,000 Unit/gm Powd [Mycostatin Powder] 1 applic TOPICAL TID each HYDROcodone/APAP 5-325MG [Endeavor 5-325] 1 each PO Q4HR PRN #6 tab PRN Reason: Pain INSULIN ASPART (NovoLOG) [NovoLOG (formulary)] 8 unit SQ AC-TID each Sennosides [Senokot] 8.6 mg PO BID tab Acetaminophen Tab [Tylenol] 650 mg PO Q6HR PRN tab PRN Reason: Mild Pain Or Fever > 100.5 ceFAZolin [Kefzol] 2 gm IVP Q12HR #42 each Docusate [Colace] 100 mg PO BID cap Insulin Detemir (Levemir) [Levemir] 15 unit SQ DAILY@0700 each INSULIN ASPART (NovoLOG) [NovoLOG (formulary)] 0 unit SQ ACHS each Continue Montelukast [Singulair] 10 mg PO DAILY hydrOXYzine HCL [Atarax] 25 mg PO QID FLUoxetine HCL [PROzac] 20 mg PO BID Apixaban [Eliquis] 2.5 mg PO BID #60 tab Anastrozole 1 mg PO DAILY Metoprolol Tartrate [Lopressor] 50 mg PO BID gemfibroziL [Lopid] 600 mg PO BID allopurinoL [Zyloprim] 100 mg PO BID Atorvastatin [Lipitor] 10 mg PO DAILY Hydroxychloroquine Sulfate [Plaquenil] 200 mg PO BID Pantoprazole [Protonix] 40 mg PO BID Changed Furosemide [Lasix] 40 mg PO Q48H #0 Discontinued Empagliflozin [Jardiance] 10 mg PO DAILY INSULIN ASPART (NovoLOG) [NovoLOG (formulary)] See Protocol SQ TID Discharge Medication List Montelukast [Singulair] 10 mg PO DAILY 01/09/17 [History] allopurinoL [Zyloprim] 100 mg PO BID 01/21/22 [History] Atorvastatin [Lipitor] 10 mg PO DAILY 02/15/22 [History] Hydroxychloroquine Sulfate [Plaquenil] 200 mg PO BID 04/13/22 [History] hydrOXYzine HCL [Atarax] 25 mg PO QID 04/13/22 [History] FLUoxetine HCL [PROzac] 20 mg PO BID 10/27/22 [History] Pantoprazole [Protonix] 40 mg PO BID 10/27/22 [History] Apixaban [Eliquis] 2.5 mg PO BID #60 tab 12/02/22 [Rx] Anastrozole 1 mg PO DAILY 05/13/23 [History] Metoprolol Tartrate [Lopressor] 50 mg PO BID 05/13/23 [History] gemfibroziL [Lopid] 600 mg PO BID 05/13/23 [History] ceFAZolin [Kefzol] 2 gm IVP Q12HR #42 each 10/08/23 [Rx] Acetaminophen Tab [Tylenol] 650 mg PO Q6HR PRN tab 10/09/23 [Rx] Docusate [Colace] 100 mg PO BID cap 10/09/23 [Rx] Furosemide [Lasix] 40 mg PO Q48H #0 10/09/23 [Rx] HYDROcodone/APAP 5-325MG [Endeavor 5-325] 1 each PO Q4HR PRN #6 tab 10/09/23 [Rx] INSULIN ASPART (NovoLOG) [NovoLOG (formulary)] 0 unit SQ ACHS each 10/09/23 [Rx] INSULIN ASPART (NovoLOG) [NovoLOG (formulary)] 8 unit SQ AC-TID each 10/09/23 [Rx] Insulin Detemir (Levemir) [Levemir] 15 unit SQ DAILY@0700 each 10/09/23 [Rx] Insulin Detemir (Levemir) [Levemir] 15 unit SQ HS each 10/09/23 [Rx] Nystatin 100,000 Unit/gm Powd [Mycostatin Powder] 1 applic TOPICAL TID each 10/09/23 [Rx] Sennosides [Senokot] 8.6 mg PO BID tab 10/09/23 [Rx] Follow up Appointment(s)/Referral(s): Abner Alva MD [STAFF PHYSICIAN] - 1 Week [facility] [NON-STAFF] - As Needed ([facility] - VISITING PHYSICIANS CALL TO SET UP SERVICES) Anjel Chairez MD [STAFF PHYSICIAN] - 1 Week Activity/Diet/Wound Care/Special Instructions: Patient is going to [facility] Activity as tolerated Continue with IV antibiotics with a PICC line per ID recommendations Continue with local wound care to the left buttock Frequent offloading and position changes every 2 hours Continue monitoring Accu-Cheks ACHS Continue heart healthy, consistent carb, renal diet Repeat labs in 2 to 3 days to monitor CBC, CMP, magnesium Outpatient follow-up with nephrology Continue on Lasix 40 mg every 48 hours Discharge/Stand Alone Forms: Who Do I Call?, Community Resources, Area PCPs Discharge Disposition: TRANSFER TO SNF/ECF
[2023-10-09 14:01] VITALS: BMI 47.3
--- NOTE | 2023-10-09 14:58 | P.PN ---
Subjective Progress Note Date: 10/08/23 Principal diagnosis: Reason for follow-up is leukocytosis and UTI Patient is a 58-year-old female with a past medical history significant for diabetes mellitus COPD hypertension history of uterine cancer for the patient has received radiation, presenting to the hospital with weakness generalized bodyaches unable to take care of herself did have a fever positive UA concerning for symptomatic urinary tract infection. Patient is status post drainage of the left gluteal abscess by general surgery on 10/04/2023. On today's evaluation that is 10/08/2023, Patient is afebrile this morning and denies any chills, patient mention breathing comfortably and is currently on 2 L nasal cannula oxygen patient denies any chest pain occasional cough patient denies any abdominal pain no diarrhea no nausea no vomiting denies any worsening pain to the left gluteal area. Patient white count is 14.1 creatinine is 2.27 Objective - Vital Signs Vital signs: Vital Signs Temp 98.0 F 10/08/23 12:27 Pulse 79 10/08/23 12:27 Resp 17 10/08/23 12:27 BP 90/55 10/08/23 12:27 Pulse Ox 99 10/08/23 12:27 FiO2 Intake & Output 10/07/23 10/08/23 10/08/23 18:59 06:59 18:59 Intake Total 750 Balance 750 Weight 129.5 kg Intake: Intake, IV Titration 750 Amount Sodium Chloride 0.45% 1, 750 000 ml @ 75 mls/hr IV . [id number] VANIA with Sodium Bicarb (1 Meq/ml) 100 ml Rx#:[id number] Other: Voiding Method Bedside Commode Bedside Commode Diaper Diaper Incontinent Incontinent External Catheter # Voids 1 # Bowel Movements 1 1 - Exam GENERAL DESCRIPTION: Middle-aged female lying in bed in no distress RESPIRATORY SYSTEM: Unlabored breathing , decreased breath sounds at bases HEART: S1 S2 regular rate and rhythm , ABDOMEN: Soft , no tenderness, left gluteal did have wound from surgical drainage and significant induration - Labs CBC & Chem 7: 10/09/23 07:40 10/09/23 07:40 Labs: Abnormal Lab Results - Last 24 Hours (Table) 10/04/23 10/07/23 10/07/23 Range/Units 07:30 17:15 20:31 WBC (3.8-10.6) k/uL RBC (3.80-5.40) m/uL Hgb (11.4-16.0) gm/dL Hct (34.0-46.0) % MCHC (31.0-37.0) g/dL Plt Count (150-450) k/uL Neutrophils # (1.3-7.7) k/uL Chloride (98-107) mmol/L BUN (7-17) mg/dL Creatinine (0.52-1.04) mg/dL Glucose (74-99) mg/dL POC Glucose (mg/dL) 112 H 159 H (70-110) mg/dL Methylmalonic Acid 1.14 H (<0.40) umol/L 10/08/23 10/08/23 10/08/23 Range/Units 07:16 07:16 07:44 WBC 14.1 H (3.8-10.6) k/uL RBC 2.76 L (3.80-5.40) m/uL Hgb 7.8 L D (11.4-16.0) gm/dL Hct 25.6 L (34.0-46.0) % MCHC 30.4 L (31.0-37.0) g/dL Plt Count 462 H (150-450) k/uL Neutrophils # 9.1 H (1.3-7.7) k/uL Chloride 109 H (98-107) mmol/L BUN 73 H (7-17) mg/dL Creatinine 2.27 H (0.52-1.04) mg/dL Glucose 156 H (74-99) mg/dL POC Glucose (mg/dL) 163 H (70-110) mg/dL Methylmalonic Acid (<0.40) umol/L 10/08/23 Range/Units 12:30 WBC (3.8-10.6) k/uL RBC (3.80-5.40) m/uL Hgb (11.4-16.0) gm/dL Hct (34.0-46.0) % MCHC (31.0-37.0) g/dL Plt Count (150-450) k/uL Neutrophils # (1.3-7.7) k/uL Chloride (98-107) mmol/L BUN (7-17) mg/dL Creatinine (0.52-1.04) mg/dL Glucose (74-99) mg/dL POC Glucose (mg/dL) 211 H (70-110) mg/dL Methylmalonic Acid (<0.40) umol/L Microbiology - Last 24 Hours (Table) 10/04/23 11:20 Anaerobic Culture - Preliminary Buttock 10/04/23 11:20 Anaerobic Culture - Preliminary Buttock Assessment and Plan (1) Sepsis Current Visit: Yes Status: Acute Code(s): A41.9 - SEPSIS, UNSPECIFIED ORGANISM SNOMED Code(s): 08623689 (2) Allergy to multiple antibiotics Current Visit: Yes Status: Acute Code(s): Z88.1 - ALLERGY STATUS TO OTHER ANTIBIOTIC AGENTS SNOMED Code(s): 988694382 (3) UTI (urinary tract infection) Current Visit: Yes Status: Acute Priority: Medium Code(s): N39.0 - URINARY TRACT INFECTION, SITE NOT SPECIFIED SNOMED Code(s): 21418883 Plan: 1patient presented hospital with sepsis in this patient who did have a fever tachycardia elevated white count did have significantly positive UA likely source of the sepsis patient chest x-ray was negative for any acute infiltrate and no tenderness on abdominal examination to be suspicious for abdominal source. 2patient with multiple antibiotic ALLERGIES that would limit the number of a ntibiotic safe to use. 3renal insufficiency and high risk of nephrotoxicity. 4patient urine culture has been finalized with Shelly albicans received adequate Eraxis Diflucan cannot be used because of drug interaction 5left gluteal abscess local cultures s/p surgical drainage cultures currently g rowing MSSA in view of the extensive infection IV antibiotic has been recommended currently waiting for PICC line placement and wound VAC placement Dictation was produced using [employer] software. please excuse any grammatical, word or spelling errors. . Time with Patient: Less than 30
--- NOTE | 2023-10-09 14:59 | P.PN ---
Subjective Progress Note Date: 10/09/23 Principal diagnosis: Reason for follow-up is leukocytosis and UTI Patient is a 58-year-old female with a past medical history significant for diabetes mellitus COPD hypertension history of uterine cancer for the patient has received radiation, presenting to the hospital with weakness generalized bodyaches unable to take care of herself did have a fever positive UA concerning for symptomatic urinary tract infection. Patient is status post drainage of the left gluteal abscess by general surgery on 10/04/2023. On today's evaluation that is 10/09/2023,the patient denies any fever or any chills, patient is breathing comfortably on 2 L current oxygen, the patient emili es chest pain shortness of breath and no significant cough, patient denies nausea vomiting swelling some abdominal discomfort and did not have a bowel movement denies any worsening pain to the gluteal area culture with MSSA anaerobe culture negative Objective - Vital Signs Vital signs: Vital Signs Temp 97.6 F 10/09/23 07:00 Pulse 80 10/09/23 07:00 Resp 16 10/09/23 07:00 BP 109/74 10/09/23 07:00 Pulse Ox 99 10/09/23 07:00 FiO2 Intake & Output 10/08/23 10/09/23 10/09/23 18:59 06:59 18:59 Output Total 1 1 Balance -1 -1 Weight 133 kg Output: Urine 1 Urine/Stool Mix 1 Other: Voiding Method Bedside Commode Bedside Commode Diaper Diaper Incontinent # Voids 4 1 # Bowel Movements 4 - Exam GENERAL DESCRIPTION: Middle-aged female lying in bed in no distress RESPIRATORY SYSTEM: Unlabored breathing , decreased breath sounds at bases HEART: S1 S2 regular rate and rhythm , ABDOMEN: Soft , no tenderness, left gluteal did have wound from surgical drainage and significant induration - Labs CBC & Chem 7: 10/09/23 07:40 10/09/23 07:40 Labs: Abnormal Lab Results - Last 24 Hours (Table) 10/08/23 10/08/23 10/08/23 Range/Units 12:30 17:10 20:11 WBC (3.8-10.6) k/uL RBC (3.80-5.40) m/uL Hgb (11.4-16.0) gm/dL Hct (34.0-46.0) % MCHC (31.0-37.0) g/dL Plt Count (150-450) k/uL Neutrophils # (1.3-7.7) k/uL Potassium (3.5-5.1) mmol/L Chloride (98-107) mmol/L BUN (7-17) mg/dL Creatinine (0.52-1.04) mg/dL POC Glucose (mg/dL) 211 H 155 H 170 H (70-110) mg/dL 10/09/23 10/09/23 Range/Units 07:40 07:40 WBC 16.7 H (3.8-10.6) k/uL RBC 3.03 L (3.80-5.40) m/uL Hgb 8.4 L (11.4-16.0) gm/dL Hct 28.2 L (34.0-46.0) % MCHC 29.7 L (31.0-37.0) g/dL Plt Count 511 H (150-450) k/uL Neutrophils # 11.8 H (1.3-7.7) k/uL Potassium 5.2 H (3.5-5.1) mmol/L Chloride 109 H (98-107) mmol/L BUN 73 H (7-17) mg/dL Creatinine 2.26 H (0.52-1.04) mg/dL POC Glucose (mg/dL) (70-110) mg/dL Assessment and Plan (1) Sepsis Current Visit: Yes Status: Acute Code(s): A41.9 - SEPSIS, UNSPECIFIED ORGANISM SNOMED Code(s): 71540923 (2) Allergy to multiple antibiotics Current Visit: Yes Status: Acute Code(s): Z88.1 - ALLERGY STATUS TO OTHER ANTIBIOTIC AGENTS SNOMED Code(s): 201144868 (3) UTI (urinary tract infection) Current Visit: Yes Status: Acute Priority: Medium Code(s): N39.0 - URINARY TRACT INFECTION, SITE NOT SPECIFIED SNOMED Code(s): 91928045 Plan: 1patient urine culture has been finalized with Shelly albicans received adequate Eraxis Diflucan cannot be used because of drug interaction 2left gluteal abscess local cultures s/p surgical drainage cultures currently growing MSSA 3-patient did get a PICC line plan is for 3-week course of IV cefazolin on discharge and close outpatient follow-up multiple question concern answered Dictation was produced using [employer] software. please excuse any grammatical, word or spelling errors. . Time with Patient: Less than 30
--- NOTE | 2023-10-09 21:57 | P.PN ---
Subjective patient is seen for follow-up for acute kidney injury and hyperkalemia. Maintained on IV fluids. No urine retention noted. Serum potassium improved to 5.2. Blood sugars have improved as well. Serum creatinine staying at 2.2 mg/dL. Objective - Vital Signs Vital signs: Vital Signs Temp 98.3 F 10/09/23 11:47 Pulse 83 10/09/23 11:47 Resp 17 10/09/23 11:47 BP 109/71 10/09/23 11:47 Pulse Ox 98 10/09/23 11:47 FiO2 Intake & Output 10/09/23 10/09/23 10/10/23 06:59 18:59 06:59 Output Total 1 1 Balance -1 -1 Weight 133 kg 133 kg Output: Urine 1 Urine/Stool Mix 1 Other: Voiding Method Bedside Commode Bedside Commode Diaper # Voids 1 - Exam patient is awake, comfortable, no acute distress. Alert oriented x 3 Examination lower extremity shows trace edema [employer]ATOR exam grossly intact - Labs CBC & Chem 7: 10/09/23 07:40 10/09/23 07:40 Labs: Abnormal Lab Results - Last 24 Hours (Table) 10/09/23 10/09/23 10/09/23 Range/Units 07:40 07:40 12:12 WBC 16.7 H (3.8-10.6) k/uL RBC 3.03 L (3.80-5.40) m/uL Hgb 8.4 L (11.4-16.0) gm/dL Hct 28.2 L (34.0-46.0) % MCHC 29.7 L (31.0-37.0) g/dL Plt Count 511 H (150-450) k/uL Neutrophils # 11.8 H (1.3-7.7) k/uL Potassium 5.2 H (3.5-5.1) mmol/L Chloride 109 H (98-107) mmol/L BUN 73 H (7-17) mg/dL Creatinine 2.26 H (0.52-1.04) mg/dL POC Glucose (mg/dL) 127 H (70-110) mg/dL Microbiology - Last 24 Hours (Table) 10/04/23 11:20 Anaerobic Culture - Final Buttock 10/04/23 11:20 Anaerobic Culture - Preliminary Buttock Assessment and Plan Assessment: 1. Acute kidney injury, nonoliguric ATN secondary to sepsis and hypotension. No obvious obstruction noted on CT of the abdomen on 10/01/2023. BP remains on the lower side. 2. Hyperkalemia associated with acute kidney injury and hyperglycemia. 3. Non-gap metabolic acidosis associated with acute kidney injury 4. Endometrial cancer with no metastases noted on CT chest, being followed by oncology. 5. Chronic kidney disease NKF stage III with lowest creatinine at 1.2-1.4 mg/dL in May of this year. Otherwise the creatinine has been mostly around 1.9-2 mg/dL. 6. Fungal UTI 7. Anemia secondary to vaginal bleeding/endometrial cancer 8. History of SLE maintained on plaquenil. No recent follow-up with rheumatology. Plan: Patient can be discharged from nephrology standpoint. Add low-dose Lasix 40 mg every other day Repeat labs in 3 to 5 days Continue off of farxiga due to fungal UTI and gluteal abscess. Continue to maintain blood sugars less than 180. Low potassium diet Repeat labs in a.m.
--- NOTE | 2023-10-09 23:58 | PN ---
PROGRESS NOTE DATE OF SERVICE: 10/09/2023 CHIEF COMPLAINT: Buttock abscess. HISTORY OF PRESENT ILLNESS: Postop day #5 status post incision and drainage of left buttock abscess. The patient reports pain is controlled. She has been seen by wound care service. They are arranging wound VAC. She has a PICC line and IV antibiotics are arranged. She is planning discharge to [facility] today. Afebrile. Hemoglobin 16.7. PHYSICAL EXAMINATION: ABDOMEN: Soft, nontender, nondistended. ASSESSMENT: Left buttock abscess status post incision and drainage. PLAN: The patient is stable for discharge from surgical standpoint. Continue antibiotics per Infectious Disease. Continue wound VAC. MMODL / IJN: [id number] /
== END 2023-10-09 15:12 | DRG 871 ==
LOC: EC 07:47 → 5NMEDONC 10:17 → 3SCARD 20:45 → 5NMEDONC 09-28 10:51 → 1SOBS 10-01 19:52 → 6NMEDSUR 10-02 17:49 → 5NMEDONC 10-04 08:03
PROVIDERS: ADMIT Hospitalist; ATTEND Hospitalist
PROC: 0J990ZZ Drainage of Buttock Subcutaneous Tissue and Fascia, Open Approach (ICD-10-PCS; principal; 2023-10-04 12:00)
PROC: 02HV33Z Insertion of Infusion Device into Superior Vena Cava, Percutaneous Approach (ICD-10-PCS; 2023-10-08)
PROC: B5181ZA Fluoroscopy of Superior Vena Cava using Low Osmolar Contrast, Guidance (ICD-10-PCS; 2023-10-08)
PROC: B548ZZA Ultrasonography of Superior Vena Cava, Guidance (ICD-10-PCS; 2023-10-08)
DX: B37.7 Candidal sepsis (principal); N17.0 Acute kidney failure with tubular necrosis; R65.21 Severe sepsis with septic shock; B49 Unspecified mycosis; N39.0 Urinary tract infection, site not specified; J96.11 Chronic respiratory failure with hypoxia; Z68.42 Body mass index [BMI] 45.0-49.9, adult; I13.0 Hypertensive heart and chronic kidney disease with heart failure and stage 1 through stage 4 chronic kidney disease, or unspecified chronic kidney disease; L02.31 Cutaneous abscess of buttock; L02.416 Cutaneous abscess of left lower limb; N18.4 Chronic kidney disease, stage 4 (severe); E87.20 Acidosis, unspecified; Z86.711 Personal history of pulmonary embolism; E11.22 Type 2 diabetes mellitus with diabetic chronic kidney disease; I12.9 Hypertensive chronic kidney disease with stage 1 through stage 4 chronic kidney disease, or unspecified chronic kidney disease; Z95.828 Presence of other vascular implants and grafts; E66.01 Morbid (severe) obesity due to excess calories; F41.9 Anxiety disorder, unspecified; Z86.718 Personal history of other venous thrombosis and embolism; Z85.42 Personal history of malignant neoplasm of other parts of uterus; E87.5 Hyperkalemia; C54.1 Malignant neoplasm of endometrium; I95.9 Hypotension, unspecified; M32.9 Systemic lupus erythematosus, unspecified; D50.0 Iron deficiency anemia secondary to blood loss (chronic); N95.0 Postmenopausal bleeding; E11.65 Type 2 diabetes mellitus with hyperglycemia; E03.9 Hypothyroidism, unspecified; B95.61 Methicillin susceptible Staphylococcus aureus infection as the cause of diseases classified elsewhere; E11.628 Type 2 diabetes mellitus with other skin complications; R62.7 Adult failure to thrive; E11.649 Type 2 diabetes mellitus with hypoglycemia without coma; I50.9 Heart failure, unspecified; L89.159 Pressure ulcer of sacral region, unspecified stage; L98.412 Non-pressure chronic ulcer of buttock with fat layer exposed; M06.9 Rheumatoid arthritis, unspecified; Z79.01 Long term (current) use of anticoagulants; Z79.4 Long term (current) use of insulin; Z79.811 Long term (current) use of aromatase inhibitors; Z79.84 Long term (current) use of oral hypoglycemic drugs; Z79.899 Other long term (current) drug therapy; Z82.49 Family history of ischemic heart disease and other diseases of the circulatory system; Z87.442 Personal history of urinary calculi; Z85.6 Personal history of leukemia; Z99.81 Dependence on supplemental oxygen; Z88.1 Allergy status to other antibiotic agents; Z91.148 Patient's other noncompliance with medication regimen for other reason; Z92.3 Personal history of irradiation; Z97.5 Presence of (intrauterine) contraceptive device; Z99.3 Dependence on wheelchair; M10.9 Gout, unspecified; Z88.2 Allergy status to sulfonamides; Z88.8 Allergy status to other drugs, medicaments and biological substances; Z88.7 Allergy status to serum and vaccine; Z91.041 Radiographic dye allergy status
CPT/HCPCS: 36415; 36573; 71045; 71046; 71250; 74176; 76830; 80048; 80053; 81001; 82009; 82607; 82728; 82747; 83036; 83540; 83550; 83605; 83735; 83880; 83921; 84132; 84484; 85025; 85027; 85610; 85730; 86850; 86900; 86901; 87040; 87070; 87075; 87077; 87086; 87186; 87205; 93005; 94760; 96365; 96366; 96375; 96376; 99285

== ENCOUNTER 2023-10-31 11:29 | Emergency (ER) | payer MEDICARE ==
[2023-10-31 11:48] VITALS: TEMP 97.7
--- NOTE | 2023-10-31 12:32 | ED ---
General Adult HPI - General Chief complaint: Weakness Stated complaint: weakness/Covid + Time Seen by Provider: 10/31/23 12:00 Source: patient, EMS, RN notes reviewed, old records reviewed Mode of arrival: EMS - History of Present Illness Initial comments: This is a 58-year-old female was a past medical history significant for diabetes leukemia renal failure and recently diagnosed with cold. Patient rolled out of bed today and she was altered according to staff that she was fighting with some other staff as well. Patient's previous hemoglobin was 6.8. Patient states she does have a little bit of cough and does feel little bit short of breath.Patient states she did not injure herself when she rolled out of bed. Patient states she just feels extremely fatigued and again according to staff she was altered patient denies any chest pain patient denies headache patient denies numbness weakness. Patient denies hitting her head when she followed bed. - Related Data Home Medications Medication Instructions Recorded Confirmed Montelukast [Singulair] 10 mg PO DAILY@0800 01/09/17 10/31/23 allopurinoL [Zyloprim] 100 mg PO BID@0800,1700 01/21/22 10/31/23 Atorvastatin [Lipitor] 10 mg PO DAILY@0800 02/15/22 10/31/23 Hydroxychloroquine Sulfate 200 mg PO BID@0800,1700 04/13/22 10/31/23 [Plaquenil] hydrOXYzine HCL [Atarax] 25 mg PO QID 04/13/22 10/31/23 FLUoxetine HCL [PROzac] 20 mg PO BID@0800,1700 10/27/22 10/31/23 Pantoprazole [Protonix] 40 mg PO BID@0800,17010/27/22 10/31/23 Anastrozole 1 mg PO DAILY@0800 05/13/23 10/31/23 Metoprolol Tartrate [Lopressor] 50 mg PO BID@0800,1700 05/13/23 10/31/23 gemfibroziL [Lopid] 600 mg PO BID@0800,1700 05/13/23 10/31/23 Albuterol Sulfate [Ventolin HFA] 2 puff INHALATION RT-QID 10/31/23 10/31/23 Apixaban [Eliquis] 2.5 mg PO BID@0800,1700 10/31/23 10/31/23 Ascorbic Acid [Vitamin C] 1,000 mg PO DAILY@1200 10/31/23 10/31/23 Cholecalciferol (Vitamin D3) 50 mcg PO DAILY@1200 10/31/23 10/31/23 [Vitamin D3 (50 Mcg = 2000 Iu)] Ferrous Sulfate [Feosol] 325 mg PO BID@0800,1700 10/31/23 10/31/23 Furosemide [Lasix] 40 mg PO Q2D@0810/31/23 10/31/23 Glucerna Shake 120 ml PO TID@0800,1200,169910/31/23 10/31/23 HYDROcodone/APAP 5-325MG [Bronte 1 tab PO Q4HR PRN 10/31/23 10/31/23 5-325] INSULIN ASPART (NovoLOG) [NovoLOG See Protocol SQ ACHS 10/31/23 10/31/23 (formulary)] Insulin Detemir (Levemir) [Levemir] 15 unit SQ BID@0700,2100 10/31/23 10/31/23 Ipratropium-Albuterol Nebulize 3 ml INHALATION RT-QID 10/31/23 10/31/23 [Duoneb 0.5 mg-3 mg/3 ml Soln] Loperamide HCl [Imodium A-D] 2 mg PO BID@0800,1700 10/31/23 10/31/23 Magnesium Hydroxide [Milk of 7,200 mg PO Q2D PRN 10/31/23 10/31/23 Magnesia Concentrate] Na Phos,M-B/Na Phos,Di-Ba [Fleet 133 ml RECTAL DAILY PRN 10/31/23 10/31/23 Adult] Nystatin 100,000 Unit/gm Powd 1 applic TOPICAL TID@0800,1200,169910/31/23 10/31/23 [Mycostatin Powder] Ondansetron [Zofran] 4 mg PO Q8H PRN 10/31/23 10/31/23 Zinc Sulfate [Orazinc] 220 mg PO DAILY@1700 10/31/23 10/31/23 bisacodyL [Dulcolax] 10 mg RECTAL Q24H PRN 10/31/23 10/31/23 dexAMETHasone [Decadron] 4 mg PO DAILY 10/31/23 10/31/23 guaiFENesin SYRUP 100MG/5ML 200 mg PO Q6H PRN 10/31/23 10/31/23 [Robitussin] Previous Rx's Medication Instructions Recorded Acetaminophen Tab [Tylenol] 650 mg PO Q6HR PRN tab 10/09/23 INSULIN ASPART (NovoLOG) [NovoLOG 8 unit SQ AC-TID each 10/09/23 (formulary)] Sennosides [Senokot] 8.6 mg PO BID tab 10/09/23 Nitrofurantoin Monohyd/M-Cryst 100 mg PO Q12HR #14 cap 10/31/23 [Macrobid] Allergies Allergy/AdvReac Type Severity Reaction Status Date / Time ciprofloxacin [From Cipro] Allergy Swelling Verified 10/31/23 14:41 diphenhydramine Allergy Swelling Verified 10/31/23 14:41 [From Benadryl] Influenza Virus Vaccines Allergy Anaphylaxis Verified 10/31/23 14:41 iodine Allergy Swelling Verified 10/31/23 14:41 propoxyphene Allergy Swelling Verified 10/31/23 14:41 [From Darvocet-N] red dye Allergy Swelling Verified 10/31/23 14:41 Sulfa (Sulfonamide Allergy Anaphylaxis, Verified 10/31/23 14:41 Antibiotics) heart rate up sulfacetamide Allergy Swelling Verified 10/31/23 14:41 [From Sulfamide] yellow dye Allergy Swelling Verified 10/31/23 14:41 Review of Systems ROS Statement: Those systems with pertinent positive or pertinent negative responses have been documented in the HPI. ROS Other: All systems not noted in ROS Statement are negative. Past Medical History Past Medical History: Cancer, COPD, Diabetes Mellitus, Deep Vein Thrombosis (DVT), Hypertension, Renal Disease, Rheumatoid Arthritis (RA), Thyroid Disorder Additional Past Medical History / Comment(s): O2 @ 4L. SLE LUPUS. STAGE 3 KIDNEY DISEASE. Leukemia, GRAVES DZ , kidney stones, gout, Uterine cancer (no surgery, radiation only) History of Any Multi-Drug Resistant Organisms: Other MDRO Past Surgical History: Cholecystectomy Additional Past Surgical History / Comment(s): BILATERAL ARTHROSCOPY KNEES. D & C (MISCARRIAGES). Past Anesthesia/Blood Transfusion Reactions: No Reported Reaction Past Psychological History: Anxiety Smoking Status: Never smoker Past Alcohol Use History: None Reported Past Drug Use History: None Reported - Past Family History Mother Family Medical History: Congestive Heart Failure (CHF), Diabetes Mellitus Father Family Medical History: Congestive Heart Failure (CHF), Dialysis, Hypertension General Exam - General Exam Comments Initial Comments: GENERAL: Patient is well-developed and well-nourished. Patient is nontoxic and well- hydrated and is in mild distress. ENT: Neck is soft and supple. No significant lymphadenopathy is noted. Oropharynx is clear. Moist mucous membranes. Neck has full range of motion without el iciting any pain. EYES: The sclera were anicteric and conjunctiva were pink and moist. Extraocular movements were intact and pupils were equal round and reactive to light. Eyelids were unremarkable. PULMONARY: Unlabored respirations. Good breath sounds bilaterally. No audible rales rhonchi or wheezing was noted. CARDIOVASCULAR: There is a regular rate and rhythm without any murmurs gallops or rubs. ABDOMEN: Soft and nontender with normal bowel sounds. SKIN: Skin is clear with no lesions or rashes and otherwise unremarkable. NEUROLOGIC: Patient is alert and oriented x2. Cranial nerves II through XII are grossly intact. Motor and sensory are also intact. Normal speech, volume and content. Symmetrical smile. MUSCULOSKELETAL: Normal extremities with adequate strength and full range of motion. No lower extremity swelling or edema. No calf tenderness. LYMPHATICS: No significant lymphadenopathy is noted PSYCHIATRIC: Normal psychiatric evaluation. Course Vital Signs 10/31/23 10/31/23 10/31/23 11:33 11:47 14:04 Temperature 97.7 F 97.7 F Pulse Rate 79 74 Respiratory 18 18 Rate Blood Pressure 125/89 O2 Sat by Pulse 99 99 Oximetry 10/31/23 15:18 Temperature Pulse Rate 72 Respiratory 18 Rate Blood Pressure 128/81 O2 Sat by Pulse 100 Oximetry Medical Decision Making - Medical Decision Making EKG is interpreted by myself. EKG shows a sinus rhythm at 76bpm NV interval is 153 QRS is 102 QT is 447 QTc is 477 Was pt. sent in by a medical professional or institution (, PA, FEEDER ASSOCIATE, urgent care, hospital, or snf...) When possible be specific @ -[facility] sent the patient to be evaluated Did you speak to anyone other than the patient for history (EMS, parent, family, police, friend...)? What history was obtained from this source @ -[No] Did you review nursing and triage notes (agree or disagree)? Why? @ -[I reviewed and agree with nursing and triage notes] Were old charts reviewed (outside hosp., previous admission, EMS record, old EKG, old radiological studies, urgent care reports/EKG's, snf records)? Report findings @ -I reviewed the old lab work on this patient from the snf and the hemoglobin was in the sixes the last time they berry blood. Differential Diagnosis (chest pain, altered mental status, abdominal pain women, abdominal pain men, vaginal bleeding, weakness, fever, dyspnea, syncope, he adache, dizziness, GI bleed, back pain, seizure, CVA, palpatations, mental health, musculoskeletal)? @ -Differential Weakness: Hypoglycemia, shock, sepsis, hyponatremia, anemia, infection, NM, ETOH, adverse medicine reaction, overdose, stroke, this is not meant to be an all-inclusive list. EKG interpreted by me (3pts min.). @ -[As above] X-rays interpreted by me (1pt min.). @ -[None done] CT interpreted by me (1pt min.). @ -[None done] U/S interpreted by me (1pt. min.). @ -[None done] What testing was considered but not performed or refused? (CT, X-rays, U/S, labs)? Why? @ -[None] What meds were considered but not given or refused? Why? @ -[None] Did you discuss the management of the patient with other professionals (cristel celeste i.e. , PA, FEEDER ASSOCIATE, lab, RT, psych nurse, social security specialist, over the road driver, teacher, energy control officer, child welfare caseworker)? Give summary @ -[No] Was smoking cessation discussed for >3mins.? @ -[No] Was critical care preformed (if so, how long)? @ -[No] Were there social determinants of health that impacted care today? How? (Homelessness, low income, unemployed, alcoholism, drug addiction, transpo rtation, low edu. Level, literacy, decrease access to med. care, skilled nursing, rehab)? @ -[No] Was there de-escalation of care discussed even if they declined (Discuss DNR or withdrawal of care, Hospice)? DNR status @ -[No] What co-morbidities impacted this encounter? (DM, HTN, Smoking, COPD, CAD, Cancer, CVA, ARF, Chemo, Hep., AIDS, mental health diagnosis, sleep apnea, morbid obesity)? @ -[None] Was patient admitted / discharged? Hospital course, mention meds given and route, prescriptions, significant lab abnormalities, going to OR and other pertinent info. @ -Patient was given Rocephin for the urinary tract infection. Patient's Hemoccult was 7.6 and no blood needed to get into the patient and patient had no complaints about the fall and denied injury. Patient was sent back to the snf Undiagnosed new problem with uncertain prognosis? @ -[No] Drug Therapy requiring intensive monitoring for toxicity (Heparin, Nitro, Insulin, Cardizem)? @ -[No] Were any procedures done? @ -[No] Diagnosis/symptom? @ -Urinary tract infection Acute, or Chronic, or Acute on Chronic? @ -Acute Uncomplicated (without systemic symptoms) or Complicated (systemic symptoms)? @ -Complicated Side effects of treatment? @ -[No] Exacerbation, Progression, or Severe Exacerbation? @ -[No] Poses a threat to life or bodily function? How? (Chest pain, USA, NM, pneumonia, PE, COPD, DKA, ARF, appy, cholecystitis, CVA, Diverticulitis, Homicidal, Suicidal, threat to staff... and all critical care pts) @ -No - Lab Data Result diagrams: 10/31/23 12:22 10/31/23 12:22 Lab Results 10/31/23 10/31/23 10/31/23 Range/Units 11:45 12:22 12:22 WBC 5.0 (3.8-10.6) k/uL RBC 2.73 L (3.80-5.40) m/uL Hgb 7.6 L (11.4-16.0) gm/dL Hct 25.7 L (34.0-46.0) % MCV 94.1 (80.0-100.0) fL MCH 28.0 (25.0-35.0) pg MCHC 29.7 L (31.0-37.0) g/dL RDW 14.0 (11.5-15.5) % Plt Count 278 (150-450) k/uL MPV 8.1 Neutrophils % 78 % Lymphocytes % 12 % Monocytes % 8 % Eosinophils % 1 % Basophils % 0 % Neutrophils # 3.9 (1.3-7.7) k/uL Lymphocytes # 0.6 L (1.0-4.8) k/uL Monocytes # 0.4 (0-1.0) k/uL Eosinophils # 0.0 (0-0.7) k/uL Basophils # 0.0 (0-0.2) k/uL Hypochromasia Marked PT 11.7 (10.0-12.5) sec INR 1.1 (<1.2) APTT 27.7 (22.0-30.0) sec Sodium (137-145) mmol/L Potassium (3.5-5.1) mmol/L Chloride (98-107) mmol/L Carbon Dioxide (22-30) mmol/L Anion Gap mmol/L BUN (7-17) mg/dL Creatinine (0.52-1.04) mg/dL Est GFR (CKD-EPI)AfAm (>60 ml/min/1.73 sqM) Est GFR (CKD-EPI)NonAf (>60 ml/min/1.73 sqM) Glucose (74-99) mg/dL Plasma Lactic Acid Efrain (0.7-2.0) mmol/L Calcium (8.4-10.2) mg/dL Magnesium (1.6-2.3) mg/dL Total Bilirubin (0.2-1.3) mg/dL AST (14-36) U/L ALT (4-34) U/L Alkaline Phosphatase (38-126) U/L Troponin I (0.000-0.034) ng/mL Total Protein (6.3-8.2) g/dL Albumin (3.5-5.0) g/dL Urine Color Urine Appearance (Clear) Urine pH (5.0-8.0) Ur Specific [place] (1.001-1.035) Urine Protein (Negative) Urine Glucose (UA) (Negative) Urine Ketones (Negative) Urine Blood (Negative) Urine Nitrite (Negative) Urine Bilirubin (Negative) Urine Urobilinogen (<2.0) mg/dL Ur Leukocyte Esterase (Negative) Urine RBC (0-5) /hpf Urine WBC (0-5) /hpf Ur Squamous Epith Cells (0-4) /hpf Urine Bacteria (None) /hpf Urine Mucus (None) /hpf Urine Yeast (Budding) (None) /hpf Blood Type AB Positive Blood Type Recheck AB Pos Bld Type Recheck Status No Antibody Screen NEGATIVE Spec Expiration Date 11/03/2023 - 234410/31/23 10/31/23 10/31/23 Range/Units 12:22 12:22 12:22 WBC (3.8-10.6) k/uL RBC (3.80-5.40) m/uL Hgb (11.4-16.0) gm/dL Hct (34.0-46.0) % MCV (80.0-100.0) fL MCH (25.0-35.0) pg MCHC (31.0-37.0) g/dL RDW (11.5-15.5) % Plt Count (150-450) k/uL MPV Neutrophils % % Lymphocytes % % Monocytes % % Eosinophils % % Basophils % % Neutrophils # (1.3-7.7) k/uL Lymphocytes # (1.0-4.8) k/uL Monocytes # (0-1.0) k/uL Eosinophils # (0-0.7) k/uL Basophils # (0-0.2) k/uL Hypochromasia PT (10.0-12.5) sec INR (<1.2) APTT (22.0-30.0) sec Sodium 141 (137-145) mmol/L Potassium 4.8 (3.5-5.1) mmol/L Chloride 107 (98-107) mmol/L Carbon Dioxide 23 (22-30) mmol/L Anion Gap 11 mmol/L BUN 69 H (7-17) mg/dL Creatinine 2.38 H (0.52-1.04) mg/dL Est GFR (CKD-EPI)AfAm 25 (>60 ml/min/1.73 sqM) Est GFR (CKD-EPI)NonAf 22 (>60 ml/min/1.73 sqM) Glucose 198 H (74-99) mg/dL Plasma Lactic Acid Efrain 1.1 (0.7-2.0) mmol/L Calcium 8.9 (8.4-10.2) mg/dL Magnesium 1.7 (1.6-2.3) mg/dL Total Bilirubin 0.3 (0.2-1.3) mg/dL AST 17 (14-36) U/L ALT 7 (4-34) U/L Alkaline Phosphatase 98 (38-126) U/L Troponin I <0.012 (0.000-0.034) ng/mL Total Protein 6.6 (6.3-8.2) g/dL Albumin 3.6 (3.5-5.0) g/dL Urine Color Urine Appearance (Clear) Urine pH (5.0-8.0) Ur Specific [place] (1.001-1.035) Urine Protein (Negative) Urine Glucose (UA) (Negative) Urine Ketones (Negative) Urine Blood (Negative) Urine Nitrite (Negative) Urine Bilirubin (Negative) Urine Urobilinogen (<2.0) mg/dL Ur Leukocyte Esterase (Negative) Urine RBC (0-5) /hpf Urine WBC (0-5) /hpf Ur Squamous Epith Cells (0-4) /hpf Urine Bacteria (None) /hpf Urine Mucus (None) /hpf Urine Yeast (Budding) (None) /hpf Blood Type Blood Type Recheck Bld Type Recheck Status Antibody Screen Spec Expiration Date 10/31/23 Range/Units 12:23 WBC (3.8-10.6) k/uL RBC (3.80-5.40) m/uL Hgb (11.4-16.0) gm/dL Hct (34.0-46.0) % MCV (80.0-100.0) fL MCH (25.0-35.0) pg MCHC (31.0-37.0) g/dL RDW (11.5-15.5) % Plt Count (150-450) k/uL MPV Neutrophils % % Lymphocytes % % Monocytes % % Eosinophils % % Basophils % % Neutrophils # (1.3-7.7) k/uL Lymphocytes # (1.0-4.8) k/uL Monocytes # (0-1.0) k/uL Eosinophils # (0-0.7) k/uL Basophils # (0-0.2) k/uL Hypochromasia PT (10.0-12.5) sec INR (<1.2) APTT (22.0-30.0) sec Sodium (137-145) mmol/L Potassium (3.5-5.1) mmol/L Chloride (98-107) mmol/L Carbon Dioxide (22-30) mmol/L Anion Gap mmol/L BUN (7-17) mg/dL Creatinine (0.52-1.04) mg/dL Est GFR (CKD-EPI)AfAm (>60 ml/min/1.73 sqM) Est GFR (CKD-EPI)NonAf (>60 ml/min/1.73 sqM) Glucose (74-99) mg/dL Plasma Lactic Acid [place] (0.7-2.0) mmol/L Calcium (8.4-10.2) mg/dL Magnesium (1.6-2.3) mg/dL Total Bilirubin (0.2-1.3) mg/dL AST (14-36) U/L ALT (4-34) U/L Alkaline Phosphatase (38-126) U/L Troponin I (0.000-0.034) ng/mL Total Protein (6.3-8.2) g/dL Albumin (3.5-5.0) g/dL Urine Color Colorless Urine Appearance Cloudy H (Clear) Urine pH 5.5 (5.0-8.0) Ur Specific [place] 1.011 (1.001-1.035) Urine Protein 2+ H (Negative) Urine Glucose (UA) Negative (Negative) Urine Ketones 1+ H (Negative) Urine Blood Trace H (Negative) Urine Nitrite Negative (Negative) Urine Bilirubin Negative (Negative) Urine Urobilinogen <2.0 (<2.0) mg/dL Ur Leukocyte Esterase Moderate H (Negative) Urine RBC 2 (0-5) /hpf Urine WBC 39 H (0-5) /hpf Ur Squamous Epith Cells <1 (0-4) /hpf Urine Bacteria Many H (None) /hpf Urine Mucus Rare H (None) /hpf Urine Yeast (Budding) Few H (None) /hpf Blood Type Blood Type Recheck Bld Type Recheck Status Antibody Screen Spec Expiration Date Disposition Clinical Impression: Urinary tract infection, Generalized weakness Disposition: HOME SELF-CARE Condition: Good Prescriptions: Nitrofurantoin Monohyd/M-Cryst [Macrobid] 100 mg PO Q12HR #14 cap Is patient prescribed a controlled substance at d/c from ED?: No Referrals: Michael Ramirez MD [Primary Care Provider] - 1-2 days Time of Disposition: 16:11
[2023-10-31 12:57] LABS: Basophils % (A) 0 %; Eosinophils % (A) 1 %; HCT 25.7 % (34.0-46.0); HGB 7.6 gm/dL (11.4-16.0); Hypochromasia Marked; Lymphocytes # (A) 0.6 k/uL (1.0-4.8); Lymphocytes % (A) 12 %; MCHC 29.7 g/dL (31.0-37.0); MCV 94.1 fL (80.0-100.0); Mean Platelet Volume 8.1; Monocytes # (A) 0.4 k/uL (0-1.0); Monocytes % (A) 8 %; Neutrophils # (A) 3.9 k/uL (1.3-7.7); Neutrophils % (A) 78 %; Platelet Count 278 k/uL (150-450); RBC 2.73 m/uL (3.80-5.40)
[2023-10-31 13:09] LABS: ALT 7 U/L (4-34); AST 17 U/L (14-36); African American GFR (CKD) 25 (>60 ml/min/1.73 sqM); Albumin 3.6 g/dL (3.5-5.0); Alkaline Phosphatase 98 U/L (38-126); Anion Gap 11 mmol/L; Blood Urea Nitrogen 69 mg/dL (7-17); Calcium 8.9 mg/dL (8.4-10.2); Carbon Dioxide 23 mmol/L (22-30); Chloride 107 mmol/L (98-107); Glucose 198 mg/dL (74-99); INR 1.1 (<1.2); Magnesium 1.7 mg/dL (1.6-2.3); Non-African American GFR(CKD) 22 (>60 ml/min/1.73 sqM); Partial Thromboplastin Time 27.7 sec (22.0-30.0); Potassium 4.8 mmol/L (3.5-5.1); Prothrombin Time 11.7 sec (10.0-12.5); Sodium 141 mmol/L (137-145); Total Bilirubin 0.3 mg/dL (0.2-1.3); Total Protein 6.6 g/dL (6.3-8.2)
--- NOTE | 2023-10-31 13:40 | XR ---
EXAMINATION TYPE: XR chest 1V portable DATE OF EXAM: 10/31/2023 1:28 PM CLINICAL INDICATION:Female, 58 years old with history of Weakness, COVID +; [facility] COMPARISON: Chest radiographs from 10/08/2023 TECHNIQUE: XR chest 1V portable Frontal view of the chest. FINDINGS: Lungs/Pleura: There is no evidence of pleural effusion, focal consolidation, or pneumothorax. Pulmonary vascularity: Pulmonary vascular congestion. Heart/mediastinum: Cardiomediastinal silhouette is enlarged and stable. Musculoskeletal: No acute osseous pathology. IMPRESSION: Rotated exam increased haziness the right lung which is thought to be similar to 10/08/2023
[2023-10-31 14:51] LABS: Appearance,Urine Cloudy (Clear); Bacteria,Urine Many /hpf; Bilirubin,Urine Negative (Negative); Blood,Urine Trace (Negative); Budding Yeast,Urine Few /hpf; Color,Urine Colorless; Glucose,Urine (UA) Negative (Negative); Ketones,Urine 1+ (Negative); Leukocyte Esterase,Urine Moderate (Negative); Mucus,Urine Rare /hpf; Nitrite,Urine Negative (Negative); PH, Urine 5.5 (5.0-8.0); Protein,Urine 2+ (Negative); RBC,Urine 2 /hpf (0-5); Specific Gravity,Urine 1.011 (1.001-1.035); Squamous Epithelial Cell,Urine <1 /hpf (0-4); Urobilinogen,Urine <2.0 mg/dL (<2.0); WBC,Urine 39 /hpf (0-5)
[2023-10-31] MEDS: KETOROLAC 15 MG/ML 1 ML VIAL IVP STA (15:39)
[2023-10-31] MEDS: cefTRIAXone IN SWFI 1,000 MG/10 ML SYRINGE IVP STA (16:12)
[2023-10-31 16:25] VITALS: BP 123/68; PULSE 71; RESP 16
== END 2023-10-31 16:53 | disposition home or self-care (01) ==
LOC: EC 11:29
DX: N39.0 Urinary tract infection, site not specified (principal); R53.1 Weakness; Z88.5 Allergy status to narcotic agent; Z88.2 Allergy status to sulfonamides; Z88.8 Allergy status to other drugs, medicaments and biological substances; Z90.49 Acquired absence of other specified parts of digestive tract
CPT/HCPCS: 36415; 93005; 86900; 86901; 80053; 83605; 83735; 84484; 85025; 85610; 85730; 86850; 81001; 87086; 71045; 99285; 96374; 96375; J0696; J1885

== ENCOUNTER → 2023-12-11 | Outpatient (CLI) | payer MEDICARE ==
[2023-12-12 01:15] LABS: Basophils # (A) 0.07 X 10*3/uL (0.00-0.10); Basophils % (A) 0.7 %; Eosinophils # (A) 0.34 X 10*3/uL (0.04-0.35); Eosinophils % (A) 3.2 %; HCT 32.2 % (37.2-46.3); HGB 9.8 g/dL (12.0-15.0); Lymphocytes # (A) 1.55 X 10*3/uL (0.90-5.00); Lymphocytes % (A) 14.7 %; MCH 27.7 pg (27.0-32.0); MCHC 30.4 g/dL (32.0-37.0); Mean Platelet Volume 11.5 FL (9.5-12.2); Monocytes # (A) 0.55 X 10*3/uL (0.20-1.00); Monocytes % (A) 5.2 %; NRBC Per 100 WBC 0 X 10*3/uL (0.00-0.01); Neutrophils # (A) 7.94 X 10*3/uL (1.80-7.70); Neutrophils % (A) 75.6 %; Platelet Count 346 X 10*3/uL (140-440); RBC 3.54 X 10*6/uL (4.10-5.20); RDW 14.7 % (11.5-14.5); WBC 10.51 X 10*3/uL (4.50-10.00)
[2023-12-12 01:27] LABS: Urine Creatinine 51.8 mg/dL (28.0-217.0)
[2023-12-12 01:48] LABS: Appearance,Urine Cloudy (Clear); Bilirubin,Urine Negative (Negative); Blood,Urine Negative (Negative); Color,Urine Yellow (Yellow); Ketones,Urine Negative (Negative); Nitrite,Urine Negative (Negative); PH, Urine 5.5; Specific Gravity,Urine 1.019 (1.001-1.030); Urobilinogen,Urine 0.2 E.U./DL
[2023-12-12 01:52] LABS: Bacteria,Urine 4+ (None Seen)
[2023-12-12 01:53] LABS: Erythrocyte Sedimentation Rate 59 mm/Hr (0-30)
[2023-12-12 02:20] LABS: % Iron Saturation 9.87 (12.00-45.00); ALT 12 U/L (8-44); AST 12 U/L (13-35); Albumin/Globulin Ratio 1.48 Ratio (1.60-3.17); Alkaline Phosphatase 183 U/L (41-126); BUN/Creat Ratio 23.73 Ratio (12.00-20.00); Blood Urea Nitrogen 35.6 mg/dL (9.0-27.0); Carbon Dioxide 17.7 mmol/L (21.6-31.8); Chloride 108 mmol/L (96-109); Chol/HDL Ratio 4.84 Ratio; Globulin 2.7 g/dL (1.6-3.3); Glucose 313 mg/dL (70-110); Iron 31 UG/DL (50-170); LDL Cholesterol,Calculated 92.6 mg/dL (0.0-131.0); Magnesium 1.7 mg/dL (1.5-2.4); Rheumatoid Factor, Qnt <15 IU/mL (0-15); Sodium 141 mmol/L (135-145); Total Bilirubin 0.3 mg/dL (0.3-1.2); Total Iron Binding Capacity 314 UG/DL (228-460); Total Protein 6.7 g/dL (6.2-8.2); Uric Acid 6.6 mg/dL (2.9-7.7)
[2023-12-12 05:23] LABS: Anti-DNA, DS unit <1.0 IU/mL; DNA Double-Stranded Negative (Negative)
[2023-12-12 05:55] LABS: Cyclic Citrull Pep IgG Unit <1.5 U/mL (<=3.9); Cyclic Citrullinated Pep IgG Negative
[2023-12-12 14:41] LABS: C-ANCA <1:20 Titer (<1:20)
[2023-12-12 14:56] LABS: Histone Antibody 0.3 UNITS (<1.0); Smooth Muscle Antibody 8 UNITS (<20)
[2023-12-12 15:02] LABS: Free Lambda Lt Chain Qnt, Seru 3.46 mg/dL (0.57-2.63)
== END | disposition home or self-care (01) ==
LOC: LABWHC1 11:46
PROVIDERS: ATTEND Internal Medicine
DX: I12.9 Hypertensive chronic kidney disease with stage 1 through stage 4 chronic kidney disease, or unspecified chronic kidney disease (principal); E11.22 Type 2 diabetes mellitus with diabetic chronic kidney disease; N18.32 Chronic kidney disease, stage 3b; E78.2 Mixed hyperlipidemia; M06.9 Rheumatoid arthritis, unspecified; M32.9 Systemic lupus erythematosus, unspecified
CPT/HCPCS: 36415; 80053; 80061; 81001; 82043; 82570; 82728; 83036; 83516; 83540; 83550; 83735; 83883; 83970; 84156; 84166; 84443; 84550; 85025; 85652; 86038; 86140; 86200; 86225; 86235; 86255; 86431

== ENCOUNTER 2023-12-24 06:52 | Observation (INO) | payer MEDICARE ==
--- NOTE | 2023-12-24 07:28 | ED ---
General Adult HPI - General Chief complaint: Vaginal Bleeding Stated complaint: Vaginal Bleeding Time Seen by Provider: 12/24/23 07:09 Source: patient, EMS, RN notes reviewed Mode of arrival: EMS Limitations: no limitations - History of Present Illness Initial comments: 58-year-old female presents emergency department via EMS chief complaint of vaginal bleeding. Patient has endometrial cancer in which she is on some oral medications. She was told that she required radiation but she refuses because she does not want to go into worsening renal failure causing dialysis she states that she was told she is not a surgical candidate as her diabetes are uncontrolled and she has heart disease. Patient states that she does have on and off bleeding. Patient states she is currently looking at hospice and palliative care - Related Data Home Medications Medication Instructions Recorded Confirmed Montelukast [Singulair] 10 mg PO DAILY 01/09/17 12/24/23 allopurinoL [Zyloprim] 100 mg PO BID 01/21/22 12/24/23 Atorvastatin [Lipitor] 10 mg PO DAILY 02/15/22 12/24/23 Hydroxychloroquine Sulfate 200 mg PO BID 04/13/22 12/24/23 [Plaquenil] hydrOXYzine HCL [Atarax] 25 mg PO QID PRN 04/13/22 12/24/23 FLUoxetine HCL [PROzac] 20 mg PO DAILY 10/27/22 12/24/23 Pantoprazole [Protonix] 40 mg PO BID 10/27/22 12/24/23 Anastrozole 1 mg PO DAILY 05/13/23 12/24/23 Metoprolol Tartrate [Lopressor] 50 mg PO BID-W/MEALS 05/13/23 12/24/23 gemfibroziL [Lopid] 600 mg PO AC-BID 05/13/23 12/24/23 Apixaban [Eliquis] 2.5 mg PO BID 10/31/23 12/24/23 Ferrous Sulfate [Feosol] 325 mg PO BID 10/31/23 12/24/23 HYDROcodone/APAP 5-325MG [[place] 1 tab PO Q4HR PRN 10/31/23 12/24/23 5-325] INSULIN ASPART (NovoLOG) [NovoLOG See Protocol SQ ACHS 10/31/23 12/24/23 (formulary)] Insulin Detemir (Levemir) [Levemir] 15 unit SQ BID 10/31/23 12/24/23 Ipratropium-Albuterol Nebulize 3 ml INHALATION RT-QID PRN 10/31/23 12/24/23 [Duoneb 0.5 mg-3 mg/3 ml Soln] Nystatin 100,000 Unit/gm Powd 1 applic TOPICAL TID 10/31/23 12/24/23 [Mycostatin Powder] Ondansetron [Zofran] 4 mg PO Q8H PRN 10/31/23 12/24/23 guaiFENesin SYRUP 100MG/5ML 200 mg PO Q6H PRN 10/31/23 12/24/23 [Robitussin] Docusate [Colace] 100 mg PO BID PRN 12/24/23 12/24/23 Furosemide [Lasix] 80 mg PO DAILY 12/24/23 12/24/23 Robitussin 12 Hour Cough 30mg/5ml 10 ml PO Q12H PRN 12/24/23 12/24/23 Sennosides [Senokot] 8.6 mg PO HS PRN 12/24/23 12/24/23 predniSONE 10 mg PO DAILY 12/24/23 12/24/23 Previous Rx's Medication Instructions Recorded Acetaminophen Tab [Tylenol] 650 mg PO Q6HR PRN tab 10/09/23 INSULIN ASPART (NovoLOG) [NovoLOG 8 unit SQ AC-TID each 10/09/23 (formulary)] Allergies Allergy/AdvReac Type Severity Reaction Status Date / Time ciprofloxacin [From Cipro] Allergy Swelling Verified 12/24/23 11:43 diphenhydramine Allergy Swelling Verified 12/24/23 11:43 [From Benadryl] Influenza Virus Vaccines Allergy Anaphylaxis Verified 12/24/23 11:43 iodine Allergy Swelling Verified 12/24/23 11:43 propoxyphene Allergy Swelling Verified 12/24/23 11:43 [From Darvocet-N] red dye Allergy Swelling Verified 12/24/23 11:43 Sulfa (Sulfonamide Allergy Anaphylaxis, Verified 12/24/23 11:43 Antibiotics) heart rate up sulfacetamide Allergy Swelling Verified 12/24/23 11:43 [From Sulfamide] yellow dye Allergy Swelling Verified 12/24/23 11:43 Review of Systems ROS Statement: Those systems with pertinent positive or pertinent negative responses have been documented in the HPI. ROS Other: All systems not noted in ROS Statement are negative. Past Medical History Past Medical History: Cancer, COPD, Diabetes Mellitus, Deep Vein Thrombosis (DVT), Hypertension, Renal Disease, Rheumatoid Arthritis (RA), Thyroid Disorder Additional Past Medical History / Comment(s): O2 @ 4L. SLE LUPUS. STAGE 3 KIDNEY DISEASE. Leukemia, GRAVES DZ , kidney stones, gout, Uterine cancer (no surgery, radiation only) History of Any Multi-Drug Resistant Organisms: Other MDRO Past Surgical History: Cholecystectomy Additional Past Surgical History / Comment(s): BILATERAL ARTHROSCOPY KNEES. D & C (MISCARRIAGES). Past Anesthesia/Blood Transfusion Reactions: No Reported Reaction Past Psychological History: Anxiety Smoking Status: Never smoker Past Alcohol Use History: None Reported Past Drug Use History: None Reported - Past Family History Mother Family Medical History: Congestive Heart Failure (CHF), Diabetes Mellitus Father Family Medical History: Congestive Heart Failure (CHF), Dialysis, Hypertension General Exam Limitations: no limitations General appearance: alert, in no apparent distress Head exam: Present: atraumatic, normocephalic, normal inspection Eye exam: Present: normal appearance, PERRL, EOMI. Absent: scleral icterus, conjunctival injection, periorbital swelling ENT exam: Present: normal exam, mucous membranes moist Neck exam: Present: normal inspection, full ROM. Absent: tenderness, meningi smus, lymphadenopathy Respiratory exam: Present: normal lung sounds bilaterally. Absent: respiratory distress, wheezes, rales, rhonchi, stridor Cardiovascular Exam: Present: regular rate, normal rhythm, normal heart sounds. Absent: systolic murmur, diastolic murmur, rubs, gallop, clicks GI/Abdominal exam: Present: soft, normal bowel sounds. Absent: distended, tenderness, guarding, rebound, rigid Course Vital Signs 12/24/23 12/24/23 12/24/23 06:54 09:20 09:40 Temperature 98.2 F Pulse Rate 105 H 102 H 103 H Respiratory 20 14 12 Rate Blood Pressure 129/109 145/84 127/68 O2 Sat by Pulse 93 L 100 99 Oximetry 12/24/23 12/24/23 12/24/23 09:50 10:00 10:10 Temperature Pulse Rate 102 H 105 H 103 H Respiratory 17 15 16 Rate Blood Pressure 127/68 127/68 O2 Sat by Pulse 100 99 100 Oximetry 12/24/23 12/24/23 10:20 10:50 Temperature 98.0 F Pulse Rate 106 H 104 H Respiratory 19 19 Rate Blood Pressure 135/81 O2 Sat by Pulse 100 Oximetry Medical Decision Making - Medical Decision Making Was pt. sent in by a medical professional or institution (, PA, NOVELTY TWISTER TENDER, urgent care, hospital, or chcf...) When possible be specific @ -No Did you speak to anyone other than the patient for history (EMS, parent, family, police, friend...)? What history was obtained from this source @ -No Did you review nursing and triage notes (agree or disagree)? Why? @ -I reviewed and agree with nursing and triage notes Were old charts reviewed (outside hosp., previous admission, EMS record, old EKG, old radiological studies, urgent care reports/EKG's, chcf records)? Report findings @ -No old charts were reviewed Differential Diagnosis (chest pain, altered mental status, abdominal pain women, abdominal pain men, vaginal bleeding, weakness, fever, dyspnea, syncope, headache, dizziness, GI bleed, back pain, seizure, CVA, palpatations, mental health, musculoskeletal)? @ -Differential Vaginal Bleeding: Spontaneous , threatened , molar , ectopic , bloody show, incompetent cervix, abruptioplacenta, placenta previa, uterine rupture, dysfunctional uterine bleeding, hemorrhage, uterine fibroids, this is not meant to be an all-inclusive list. EKG interpreted by me (3pts min.). @ -None X-rays interpreted by me (1pt min.). @ -None done CT interpreted by me (1pt min.). @ -None done U/S interpreted by me (1pt. min.). @ -None done What testing was considered but not performed or refused? (CT, X-rays, U/S, labs)? Why? @ -None What meds were considered but not given or refused? Why? @ -None Did you discuss the management of the patient with other professionals (professionals i.e. , ABY, NOVELTY TWISTER TENDER, lab, RT, psych nurse, neonatal social worker, pet care attendant, teacher, credit or loans officer, bilingual patient support caseworker)? Give summary @ -Dr. Ramirez for admission Was smoking cessation discussed for >3mins.? @ -No Was critical care preformed (if so, how long)? @ -No Were there social determinants of health that impacted care today? How? (Homelessness, low income, unemployed, alcoholism, drug addiction, transportation, low edu. Level, literacy, decrease access to med. care, longterm, rehab)? @ -No Was there de-escalation of care discussed even if they declined (Discuss DNR or withdrawal of care, Hospice)? DNR status @ -No What co-morbidities impacted this encounter? (DM, HTN, Smoking, COPD, CAD, Cancer, CVA, ARF, Chemo, Hep., AIDS, mental health diagnosis, sleep apnea, morbid obesity)? @ -Endometrial cancer Was patient admitted / discharged? Hospital course, mention meds given and route, prescriptions, significant lab abnormalities, going to OR and other pertinent info. @ -Admitted patient presented for vaginal bleeding which is a recurrent issue. Patient has refused most treatment with oncology secondary to complications from it. Patient currently is on oral chemo and has no other plans for treatment. She has discussed hospice and palliative care patient is concerned about going home and patient will have repeat H&H and oncology evaluation Undiagnosed new problem with uncertain prognosis? @ -Yes Drug Therapy requiring intensive monitoring for toxicity (Heparin, Nitro, Insulin, Cardizem)? @ -No Were any procedures done? @ -No Diagnosis/symptom? @ -Endometrial cancer, anemia, vaginal bleeding Acute, or Chronic, or Acute on Chronic? @ -Acute Uncomplicated (without systemic symptoms) or Complicated (systemic symptoms)? @ -Complicated Side effects of treatment? @ -No Exacerbation, Progression, or Severe Exacerbation? @ -No Poses a threat to life or bodily function? How? (Chest pain, [place], [place], pneumonia, PE, COPD, DKA, ARF, appy, cholecystitis, CVA, Diverticulitis, Homicidal, Suicidal, threat to staff... and all critical care pts) @ -Yes cancer, endometrial - Lab Data Result diagrams: 12/24/23 20:16 12/24/23 08:08 Lab Results 12/24/23 12/24/23 12/24/23 Range/Units 08:08 08:08 08:08 WBC 10.8 H (3.8-10.6) k/uL RBC 3.72 L (3.80-5.40) m/uL Hgb 10.5 L (11.4-16.0) gm/dL Hct 33.5 L (34.0-46.0) % MCV 90.2 (80.0-100.0) fL MCH 28.2 (25.0-35.0) pg MCHC 31.2 (31.0-37.0) g/dL RDW 15.3 (11.5-15.5) % Plt Count 349 (150-450) k/uL MPV 7.9 Neutrophils % 75 % Lymphocytes % 15 % Monocytes % 4 % Eosinophils % 5 % Basophils % 1 % Neutrophils # 8.1 H (1.3-7.7) k/uL Lymphocytes # 1.6 (1.0-4.8) k/uL Monocytes # 0.4 (0-1.0) k/uL Eosinophils # 0.5 (0-0.7) k/uL Basophils # 0.1 (0-0.2) k/uL Hypochromasia Moderate PT 10.9 (10.0-12.5) sec INR 1.0 (<1.2) APTT 22.9 (22.0-30.0) sec Sodium 139 (137-145) mmol/L Potassium 5.2 H (3.5-5.1) mmol/L Chloride 108 H (98-107) mmol/L Carbon Dioxide 18 L (22-30) mmol/L Anion Gap 13 mmol/L BUN 48 H (7-17) mg/dL Creatinine 1.62 H (0.52-1.04) mg/dL Est GFR (CKD-EPI)AfAm 40 (>60 ml/min/1.73 sqM) Est GFR (CKD-EPI)NonAf 35 (>60 ml/min/1.73 sqM) Glucose 369 H (74-99) mg/dL Calcium 9.2 (8.4-10.2) mg/dL Total Bilirubin 0.7 (0.2-1.3) mg/dL AST 18 (14-36) U/L ALT 10 (4-34) U/L Alkaline Phosphatase 166 H (38-126) U/L Total Protein 6.9 (6.3-8.2) g/dL Albumin 3.9 (3.5-5.0) g/dL Disposition Clinical Impression: Dysfunctional uterine bleeding, Anemia, Endometrial cancer Disposition: ADMITTED IP TO THIS HOSP Condition: Fair Time of Disposition: 10:07
[2023-12-24 08:16] LABS: Basophils # (A) 0.1 k/uL (0-0.2); Basophils % (A) 1 %; Eosinophils # (A) 0.5 k/uL (0-0.7); Eosinophils % (A) 5 %; HCT 33.5 % (34.0-46.0); HGB 10.5 gm/dL (11.4-16.0); Hypochromasia Moderate; Lymphocytes # (A) 1.6 k/uL (1.0-4.8); Lymphocytes % (A) 15 %; MCH 28.2 pg (25.0-35.0); MCHC 31.2 g/dL (31.0-37.0); MCV 90.2 fL (80.0-100.0); Mean Platelet Volume 7.9; Monocytes # (A) 0.4 k/uL (0-1.0); Monocytes % (A) 4 %; Neutrophils # (A) 8.1 k/uL (1.3-7.7); Neutrophils % (A) 75 %; Platelet Count 349 k/uL (150-450); RBC 3.72 m/uL (3.80-5.40); RDW 15.3 % (11.5-15.5); WBC 10.8 k/uL (3.8-10.6)
[2023-12-24 08:29] LABS: ALT 10 U/L (4-34); AST 18 U/L (14-36); African American GFR (CKD) 40 (>60 ml/min/1.73 sqM); Albumin 3.9 g/dL (3.5-5.0); Alkaline Phosphatase 166 U/L (38-126); Anion Gap 13 mmol/L; Blood Urea Nitrogen 48 mg/dL (7-17); Calcium 9.2 mg/dL (8.4-10.2); Carbon Dioxide 18 mmol/L (22-30); Chloride 108 mmol/L (98-107); Glucose 369 mg/dL (74-99); Non-African American GFR(CKD) 35 (>60 ml/min/1.73 sqM); Partial Thromboplastin Time 22.9 sec (22.0-30.0); Potassium 5.2 mmol/L (3.5-5.1); Prothrombin Time 10.9 sec (10.0-12.5); Sodium 139 mmol/L (137-145); Total Bilirubin 0.7 mg/dL (0.2-1.3); Total Protein 6.9 g/dL (6.3-8.2)
[2023-12-24] MEDS ORDERED: ONDANSETRON 4 MG/2 ML VIAL IVP PRN (10:08)
[2023-12-24] MEDS ORDERED: NALOXONE 0.4 MG/ML 1 ML VIAL IV PRN (10:08)
[2023-12-24 12:43] LABS: Glucose,Whole Blood 308 mg/dL (70-110)
[2023-12-24] MEDS ORDERED: ONDANSETRON 4 MG TAB PO PRN (13:09)
[2023-12-24] MEDS ORDERED: DOCUSATE 100 MG CAP PO PRN (13:09)
[2023-12-24] MEDS ORDERED: SENNOSIDES 8.6 MG TAB PO PRN (13:09)
[2023-12-24] MEDS ORDERED: guaiFENesin SYRUP 100MG/5ML 200 MG/10 ML CUP PO PRN (13:09)
[2023-12-24] MEDS ORDERED: ACETAMINOPHEN TAB 325 MG TAB PO PRN (13:09)
[2023-12-24] MEDS: HYDROcodone/APAP 5-325MG 1 EACH TAB PO PRN (13:29)
[2023-12-24] MEDS: FLUoxetine HCL 20 MG CAP PO SCH (14:03)
[2023-12-24] MEDS: predniSONE 10 MG TAB PO SCH (14:03)
[2023-12-24] MEDS: HYDROXYCHLOROQUINE SULFATE 200 MG TAB PO SCH (14:03)
[2023-12-24] MEDS: INSULIN DETEMIR (LEVEMIR) 100 UNIT/ML SYR SQ SCH (14:03)
[2023-12-24] MEDS: ANASTROZOLE 1 MG TAB PO SCH (14:03)
[2023-12-24] MEDS ORDERED: DEXTROSE 50% SYRINGE 50 ML IVP PRN ×2 (14:40)
[2023-12-24] MEDS: hydrOXYzine HCL 25 MG TAB PO PRN (15:33)
[2023-12-24] MEDS: IPRATROPIUM-ALBUTEROL 3 ML NEB INHALATION PRN (15:38)
[2023-12-24 15:47] LABS: Basophils # (A) 0.1 k/uL (0-0.2); Basophils % (A) 1 %; Eosinophils # (A) 0.4 k/uL (0-0.7); Eosinophils % (A) 4 %; HCT 30.7 % (34.0-46.0); HGB 10.1 gm/dL (11.4-16.0); Lymphocytes # (A) 1.6 k/uL (1.0-4.8); Lymphocytes % (A) 15 %; MCH 28.8 pg (25.0-35.0); MCHC 32.7 g/dL (31.0-37.0); MCV 87.9 fL (80.0-100.0); Mean Platelet Volume 8.5; Monocytes # (A) 0.5 k/uL (0-1.0); Monocytes % (A) 5 %; Neutrophils # (A) 7.7 k/uL (1.3-7.7); Neutrophils % (A) 74 %; Platelet Count 314 k/uL (150-450); Poikilocytosis Slight; RDW 15.6 % (11.5-15.5); WBC 10.3 k/uL (3.8-10.6)
[2023-12-24 17:20] LABS: Glucose,Whole Blood 328 mg/dL (70-110)
[2023-12-24] MEDS: METOPROLOL TARTRATE 50 MG TAB PO SCH (17:49)
[2023-12-24] MEDS: INSULIN ASPART (NovoLOG) 100 UNIT/ML VIAL SQ SCH ×2 (17:49)
[2023-12-24] MEDS: PANTOPRAZOLE 40 MG TABLET PO SCH (17:49)
[2023-12-24 20:19] LABS: Glucose,Whole Blood 303 mg/dL (70-110)
[2023-12-24 20:35] LABS: Basophils % (A) 0 %; Eosinophils # (A) 0.2 k/uL (0-0.7); Eosinophils % (A) 2 %; HCT 30.4 % (34.0-46.0); HGB 9.7 gm/dL (11.4-16.0); Hypochromasia Moderate; Lymphocytes % (A) 9 %; MCH 28.4 pg (25.0-35.0); MCHC 31.9 g/dL (31.0-37.0); Mean Platelet Volume 7.9; Monocytes # (A) 0.4 k/uL (0-1.0); Monocytes % (A) 4 %; Neutrophils # (A) 8.8 k/uL (1.3-7.7); Neutrophils % (A) 84 %; Platelet Count 315 k/uL (150-450); RBC 3.41 m/uL (3.80-5.40); RDW 15.3 % (11.5-15.5); WBC 10.5 k/uL (3.8-10.6)
[2023-12-24] MEDS: allopurinoL 100 MG TAB PO SCH (21:02)
[2023-12-24] MEDS: FERROUS SULFATE 325 MG TAB PO SCH (21:02)
[2023-12-25 06:56] LABS: Glucose,Whole Blood 398 mg/dL (70-110)
[2023-12-25 08:42] LABS: ALT 8 U/L (8-44); AST 8 U/L (13-35); Albumin 3.7 g/dL (3.8-4.9); Albumin/Globulin Ratio 1.42 Ratio (1.60-3.17); Alkaline Phosphatase 188 U/L (41-126); BUN/Creat Ratio 25.12 Ratio (12.00-20.00); Blood Urea Nitrogen 42.7 mg/dL (9.0-27.0); Calcium 9.1 mg/dL (8.7-10.3); Chloride 106 mmol/L (96-109); Globulin 2.6 g/dL (1.6-3.3); Glucose 397 mg/dL (70-110); Potassium 5.3 mmol/L (3.5-5.5); Sodium 139 mmol/L (135-145); Total Bilirubin 0.2 mg/dL (0.3-1.2); Total Protein 6.3 g/dL (6.2-8.2)
[2023-12-25] MEDS: MONTELUKAST 10 MG TAB PO SCH (08:44)
[2023-12-25] MEDS: ATORVASTATIN 10 MG TAB PO SCH (08:44)
[2023-12-25] MEDS: FENOFIBRATE 160 MG TAB PO SCH (08:46)
[2023-12-25 08:47] LABS: HCT 28.8 % (37.2-46.3); HGB 9.2 g/dL (12.0-15.0); MCH 27.5 pg (27.0-32.0); MCHC 31.9 g/dL (32.0-37.0); MCV 86.2 FL (80.0-97.0); Mean Platelet Volume 11.2 FL (9.5-12.2); NRBC Per 100 WBC 0 X 10*3/uL (0.00-0.01); Platelet Count 302 X 10*3/uL (140-440); RBC 3.34 X 10*6/uL (4.10-5.20); RDW 14.8 % (11.5-14.5); WBC 12.66 X 10*3/uL (4.50-10.00)
[2023-12-25 11:51] LABS: Glucose,Whole Blood 254 mg/dL (70-110)
[2023-12-25 13:43] VITALS: BMI 49.9
[2023-12-25] MEDS: NYSTATIN 100,000 UNIT/GM POWD 15 GM TOPICAL PRN (16:42)
[2023-12-25 16:54] LABS: Glucose,Whole Blood 114 mg/dL (70-110)
--- NOTE | 2023-12-25 17:34 | P.HPIM ---
History of Present Illness H&P Date: 12/24/23 Chief Complaint: Uterine bleeding due to uterine cancer. HISTORY OF PRESENT ILLNESS: This is a 58-year-old female patient of mine with past medical history of hypertension and hypertensive cardiovascular disease, mixed hyperlipidemia, diabetes mellitus type 2 insulin requiring, diabetic polyneuropathy, history of uterine cancer has been under the care of Dr. Euceda at [facility], has not seen him since May, has been in the hospital not too long ago because of significant wound to the right buttock area that she just recovered from not too long ago about a week ago was seen at the wound clinic, apparently patient also had a significant history of chronic kidney disease stage IIIb, history of depression, history of rheumatoid arthritis, SLE, patient presented to the emergency department at [facility] because of increased bleeding and the patient has been getting significant amount of clot, she was scared that the patient is not able to control her bleeding at this time, even though the patient have thought in the past about going into hospice and palliative care but because of the significant mount of bleeding she was admitted to the hospital for evaluation, we have consulted hematology oncology as well as [facility] to see if the patient will make her decision which way she wants to go at this point in time, patient stated that she is not able to go for any surgical intervention, she is not able to take and tolerate any chemotherapy at this time, she is not able to do radiation therapy, therefore we have recommended for the patient to be seen in consultation by hospice/palliative care. REVIEW OF SYSTEMS: Constitutional: No documented fever, no chills, no night sweats. No weight change. No weakness, fatigue or lethargy. No daytime sleepiness. EENT: No headache. No blurred vision or double vision, no loss of vision. No loss of Hearing, no ringing in the ears, no dizziness. No nasal drainage or congestion. No epistaxis. No sore throat. Lungs: No shortness of breath, no cough, no sputum production. No wheezing. Reports dyspnea with activity. Cardiovascular: No chest pain, no lower extremity edema. No palpitations. No paroxysmal nocturnal dyspnea. No orthopnea. No lightheadedness or dizziness. No syncopal episodes. Abdominal: Reports abdominal pain. No nausea, vomiting. No diarrhea. No constipation. No bloody or tarry stools reports loss of appetite. Genitourinary: No dysuria, increased frequency, urgency. No urinary retention.positive for uterine bleeding Musculoskeletal: No myalgias. No muscle weakness, no gait dysfunction, no frequent falls. No back pain. No neck pain. Integumentary: No wounds, no lesions. No rash or pruritus. No unusual bruising. No change in hair or nails. Neurologic: No aphasia. No facial droop. No change in mentation. No head injury. No headache. No paralysis. No paresthesia. Psychiatric: positive for depressio, anxiety. No mood swings. Endocrine: positive for abnormal blood sugars. No weight change. PAST MEDICAL HISTORY: Hypertension and hypertensive cardiovascular disease. Mixed hyperlipidemia. Diabetes mellitus type 2 with diabetic polyneuropathy. Chronic kidney disease stage IIIb. GERD with esophagitis. Obesity with obstructive sleep apnea. Uterine cancer possible metastatic Bilateral pulmonary emboli. Gout. History of rheumatoid arthritis. History of SLE. COPD. Allergic rhinitis. PAST SURGICAL HISTORY: Lap glory. IUD due to uterine cancer. IVC filter. Bilateral arthroscopic knee surgery Left hip ORIF 2021. SOCIAL HISTORY: Patient denies any history of smoking, she denies any history of drinking, she denies any history of drug use or abuse, she lives with her . FAMILY HISTORY: Father at age of 57 from CAD, also had a history of chronic kidney disease, mother at the age of 57 from congestive heart failure also had history of CAD and diabetes mellitus type 2, patient had a twin brother who is okay 1 brother at the age of from [place], 1 stepbrother with PAD and DVT, patient has 1 sister 46-year-old with history of DVT in her leg, PHYSICAL EXAMINATION: General: 58-year-old female laying down in bed in no apparent distress. HEENT: Head is atraumatic, normocephalic, pupils were equal round reactive to light and recommendation, extraocular muscle movement were intact, sclera nonicteric, conjunctivae were pale, mucous membranes of the mouth are somewhat dry. Neck: Supple, no JVP, normal carotid upstroke bilaterally, no lymphadenopathy. Chest: Decreased breath sounds at the bases, few rhonchi, no expiratory wheezes, no chest wall tenderness, no intercostal retractions. Heart: First heart sound is normal, second heart sound is normal there is systolic ejection murmur 2/6 located in the left sternal border. Abdomen: Soft, nontender, nondistended, positive bowel sounds. Extremities: There is no edema no calf tenderness DP +2 bilaterally. Neurologic examination: Patient is awake alert and oriented x3, cranial nerves II-12 appear grossly intact, muscle power were 5 out of 5 in upper extremities and 5 out of 5 in bilateral lower extremities, deep tendon reflexes normal bilaterally. ASSESSMENT AND PLAN: 1. Acute on chronic uterine bleeding due to possible metastatic uterine cancer. Patient will be admitted to the hospital monitor the patient CBC in the next 24 hours, transfuse for hemoglobin less than 7, meanwhile consult hematology oncology for further recommendation at this time patient did have an IUD in place as the patient declined any treatment including surgery chemotherapy or radiation therapy at this point in time, she has not seen Dr. Nicholson since May of this year. 2. Hypertension and hypertensive cardiovascular disease. Continue patient on metoprolol 50 mg orally twice every day, monitor the patient blood pressure very closely. 3. Mixed hyperlipidemia. Continue patient on atorvastatin 10 mg once every day, monitor lipid panel, keep LDL 55-70. 4. Diabetes mellitus type 2. Continue Lantus 15 units at bedtime along with NovoLog 8 units before each meal 3 times a day along with a sliding scale insulin. 5. History of bilateral pulmonary emboli status post IVC filter placement, discontinue Eliquis for now due to the uterine bleeding. 6. History of SLE/rheumatoid arthritis continue patient on Plaquenil 200 mg orally twice every day, prednisone 10 mg orally once every day, patient is not a candidate for any DMARDs. 7. Anxiety and depressive disorder continue fluoxetine 20 mg orally once every day. 8. History of gout continue patient on allopurinol 200 mg orally once every day. 9. History of COPD. Continue patient on DuoNeb 3 mL nebulization 4 times every day, continue montelukast 10 mg orally once every day. 10. History of uterine cancer patient has been currently on anastrozole 1 mg orally once every day, she has not been seen by her oncologist Dr. Euceda since May of this year, she has an IUD in the uterus. 11. GERD with esophagitis. Continue pantoprazole 40 mg orally twice every day. 12. DVT prophylaxis. Bilateral knee-high DANIAL hose hold off Eliquis for now. 13. GI prophylaxis. Continue patient on pantoprazole 40 mg orally twice every day. 14. Admit to inpatient. Estimated length of stay 2 midnights. 15. Patient is full code. Past Medical History Past Medical History: Cancer, COPD, Diabetes Mellitus, Deep Vein Thrombosis (DVT), Hypertension, Renal Disease, Rheumatoid Arthritis (RA), Thyroid Disorder Additional Past Medical History / Comment(s): O2 @ 4L. SLE LUPUS. STAGE 3 KIDNEY DISEASE. Leukemia, GRAVES DZ , kidney stones, gout, Uterine cancer (no surgery, radiation only) History of Any Multi-Drug Resistant Organisms: Other MDRO Past Surgical History: Cholecystectomy Additional Past Surgical History / Comment(s): BILATERAL ARTHROSCOPY KNEES. D & C (MISCARRIAGES). Past Anesthesia/Blood Transfusion Reactions: No Reported Reaction Past Psychological History: Anxiety Smoking Status: Never smoker Past Alcohol Use History: None Reported Past Drug Use History: None Reported - Past Family History Mother Family Medical History: Congestive Heart Failure (CHF), Diabetes Mellitus Father Family Medical History: Congestive Heart Failure (CHF), Dialysis, Hypertension Medications and Allergies Home Medications Medication Instructions Recorded Confirmed Type Montelukast [Singulair] 10 mg PO DAILY 01/09/17 12/24/23 History allopurinoL [Zyloprim] 100 mg PO BID 01/21/22 12/24/23 History Atorvastatin [Lipitor] 10 mg PO DAILY 02/15/22 12/24/23 History Hydroxychloroquine Sulfate 200 mg PO BID 04/13/22 12/24/23 History [Plaquenil] hydrOXYzine HCL [Atarax] 25 mg PO QID PRN 04/13/22 12/24/23 History FLUoxetine HCL [PROzac] 20 mg PO DAILY 10/27/22 12/24/23 History Pantoprazole [Protonix] 40 mg PO BID 10/27/22 12/24/23 History Anastrozole 1 mg PO DAILY 05/13/23 12/24/23 History Metoprolol Tartrate [Lopressor] 50 mg PO BID-W/MEALS 05/13/23 12/24/23 History gemfibroziL [Lopid] 600 mg PO AC-BID 05/13/23 12/24/23 History Acetaminophen Tab [Tylenol] 650 mg PO Q6HR PRN tab 10/09/23 12/24/23 Rx INSULIN ASPART (NovoLOG) [NovoLOG 8 unit SQ AC-TID each 10/09/23 12/24/23 Rx (formulary)] Apixaban [Eliquis] 2.5 mg PO BID 10/31/23 12/24/23 History Ferrous Sulfate [Feosol] 325 mg PO BID 10/31/23 12/24/23 History HYDROcodone/APAP 5-325MG [[place] 1 tab PO Q4HR PRN 10/31/23 12/24/23 History 5-325] INSULIN ASPART (NovoLOG) [NovoLOG See Protocol SQ ACHS 10/31/23 12/24/23 History (formulary)] Insulin Detemir (Levemir) [Levemir] 15 unit SQ BID 10/31/23 12/24/23 History Ipratropium-Albuterol Nebulize 3 ml INHALATION RT-QID PRN 10/31/23 12/24/23 History [Duoneb 0.5 mg-3 mg/3 ml Soln] Nystatin 100,000 Unit/gm Powd 1 applic TOPICAL TID 10/31/23 12/24/23 History [Mycostatin Powder] Ondansetron [Zofran] 4 mg PO Q8H PRN 10/31/23 12/24/23 History guaiFENesin SYRUP 100MG/5ML 200 mg PO Q6H PRN 10/31/23 12/24/23 History [Robitussin] Docusate [Colace] 100 mg PO BID PRN 12/24/23 12/24/23 History Furosemide [Lasix] 80 mg PO DAILY 12/24/23 12/24/23 History Robitussin 12 Hour Cough 30mg/5ml 10 ml PO Q12H PRN 12/24/23 12/24/23 History Sennosides [Senokot] 8.6 mg PO HS PRN 12/24/23 12/24/23 History predniSONE 10 mg PO DAILY 12/24/23 12/24/23 History Allergies Allergy/AdvReac Type Severity Reaction Status Date / Time ciprofloxacin [From Cipro] Allergy Swelling Verified 12/24/23 11:43 diphenhydramine Allergy Swelling Verified 12/24/23 11:43 [From Benadryl] Influenza Virus Vaccines Allergy Anaphylaxis Verified 12/24/23 11:43 iodine Allergy Swelling Verified 12/24/23 11:43 propoxyphene Allergy Swelling Verified 12/24/23 11:43 [From Darvocet-N] red dye Allergy Swelling Verified 12/24/23 11:43 Sulfa (Sulfonamide Allergy Anaphylaxis, Verified 12/24/23 11:43 Antibiotics) heart rate up sulfacetamide Allergy Swelling Verified 12/24/23 11:43 [From Sulfamide] yellow dye Allergy Swelling Verified 12/24/23 11:43 Physical Exam Vitals: Vital Signs Temp Pulse Resp BP Pulse Ox 12/24/23 10:50 98.0 F 104 H 19 135/81 12/24/23 10:20 106 H 19 100 12/24/23 10:10 103 H 16 100 12/24/23 10:00 105 H 15 127/68 99 12/24/23 09:50 102 H 17 127/68 100 12/24/23 09:40 103 H 12 127/68 99 12/24/23 09:20 102 H 14 145/84 100 12/24/23 06:54 98.2 F 105 H 20 129/109 93 L Intake and Output 12/23/23 12/24/23 12/24/23 22:59 06:59 14:59 Output Total 500 Balance -500 Output: Urine 500 Other: # Voids 1 Weight 136.078 kg Results CBC & Chem 7: 12/25/23 02:50 12/25/23 02:50 Labs: Abnormal Lab Results - Last 24 Hours (Table) 12/24/23 12/24/23 12/24/23 Range/Units 08:08 08:08 12:42 WBC 10.8 H (3.8-10.6) k/uL RBC 3.72 L (3.80-5.40) m/uL Hgb 10.5 L (11.4-16.0) gm/dL Hct 33.5 L (34.0-46.0) % Neutrophils # 8.1 H (1.3-7.7) k/uL Potassium 5.2 H (3.5-5.1) mmol/L Chloride 108 H (98-107) mmol/L Carbon Dioxide 18 L (22-30) mmol/L BUN 48 H (7-17) mg/dL Creatinine 1.62 H (0.52-1.04) mg/dL Glucose 369 H (74-99) mg/dL POC Glucose (mg/dL) 308 H (70-110) mg/dL Alkaline Phosphatase 166 H (38-126) U/L
--- NOTE | 2023-12-25 18:10 | P.CONS ---
History of Present Illness - Reason for Consult Consult date: 12/25/23 endometrial cancer Requesting physician: Nic Ac - Chief Complaint vaginal bleeding - History of Present Illness Patient is a 58-year-old female with an extensive health history. We have been consulted for hx of endometrial cancer. History of endometrioid well-diff erentiated FIGO 1 adenocarcinoma (clinically stage I) being treated by Dr. Euceda at [facility]. She was started on Megace 40 mg twice daily for treatment of her endometrial adenocarcinoma as she has been deemed not to be a candidate for surgery due to multiple medical comorbidities. There was a delay in initiating radiation therapy due to multiple admissions for issues including DVT, UTI and left femur fracture requiring ORIF with IM nail placement. She was discharged on 04/10/2022 on therapeutic Eliquis and Megace 40 mg twice daily. She was evaluated by Dr. Bradford patient was not a candidate for radiation therapy. Patient was admitted in 10/2022, and was diagnosed with PE and was restarted on Eliquis. Patient had previously been on Eliquis for DVT but was taken off due to vaginal bleeding at that time. Patient was then readmitted in November 2022 for vaginal bleeding. Megace was subsequently discontinued. She has continued on Arimidex as prescribed by [facility] and has IUD in place. U nfortunately, she is still not a surgical candidate and is also not felt to be a good candidate for radiation due to body habitus, and inability to lay flat. During last admit in 09/2023, CT abdomen pelvis without contrast showed IUD noted within the lower portion of the uterine body. Uterus appears somewhat bulky and adnexa is unremarkable. CT chest showed no evidence to suggest metastatic diseas e to the chest. Pt presented to the ER for vaginal bleeding. She states vaginal bleeding started the night prior to admit, with heavy bleeding and clotting causing her to present for further evaluation. She is also interested in palliative care options. She states since her last discharge in September 2023, she was in rehab, and was discharged in early November. 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 At todays visit pt states that at this time, she is most concerned with palliation of symptoms but plans to continue arimidex. CBC on admit, revealing WBC 10.3, hemoglobin 10.1, MCV 90.2, platelets 314,000. Today hgb 9.2. Creatinine 1.7, GFR 35. Review of Systems 10 point ROS is negative except as stated in the HPI Past Medical History Past Medical History: Cancer, COPD, Diabetes Mellitus, Deep Vein Thrombosis (DVT), Hypertension, Renal Disease, Rheumatoid Arthritis (RA), Thyroid Disorder Additional Past Medical History / Comment(s): O2 @ 4L. SLE LUPUS. STAGE 3 KIDNEY DISEASE. Leukemia, GRAVES DZ , kidney stones, gout, Uterine cancer (no surgery, radiation only) History of Any Multi-Drug Resistant Organisms: Other MDRO Past Surgical History: Cholecystectomy Additional Past Surgical History / Comment(s): BILATERAL ARTHROSCOPY KNEES. D & C (MISCARRIAGES). Past Anesthesia/Blood Transfusion Reactions: No Reported Reaction Past Psychological History: Anxiety Smoking Status: Never smoker Past Alcohol Use History: None Reported Past Drug Use History: None Reported - Past Family History Mother Family Medical History: Congestive Heart Failure (CHF), Diabetes Mellitus Father Family Medical History: Congestive Heart Failure (CHF), Dialysis, Hypertension Medications and Allergies Home Medications Medication Instructions Recorded Confirmed Type Montelukast [Singulair] 10 mg PO DAILY 01/09/17 12/24/23 History allopurinoL [Zyloprim] 100 mg PO BID 01/21/22 12/24/23 History Atorvastatin [Lipitor] 10 mg PO DAILY 02/15/22 12/24/23 History Hydroxychloroquine Sulfate 200 mg PO BID 04/13/22 12/24/23 History [Plaquenil] hydrOXYzine HCL [Atarax] 25 mg PO QID PRN 04/13/22 12/24/23 History FLUoxetine HCL [PROzac] 20 mg PO DAILY 10/27/22 12/24/23 History Pantoprazole [Protonix] 40 mg PO BID 10/27/22 12/24/23 History Anastrozole 1 mg PO DAILY 05/13/23 12/24/23 History Metoprolol Tartrate [Lopressor] 50 mg PO BID-W/MEALS 05/13/23 12/24/23 History gemfibroziL [Lopid] 600 mg PO AC-BID 05/13/23 12/24/23 History Acetaminophen Tab [Tylenol] 650 mg PO Q6HR PRN tab 10/09/23 12/24/23 Rx INSULIN ASPART (NovoLOG) [NovoLOG 8 unit SQ AC-TID each 10/09/23 12/24/23 Rx (formulary)] Apixaban [Eliquis] 2.5 mg PO BID 10/31/23 12/24/23 History Ferrous Sulfate [Feosol] 325 mg PO BID 10/31/23 12/24/23 History HYDROcodone/APAP 5-325MG [[place] 1 tab PO Q4HR PRN 10/31/23 12/24/23 History 5-325] INSULIN ASPART (NovoLOG) [NovoLOG See Protocol SQ ACHS 10/31/23 12/24/23 History (formulary)] Insulin Detemir (Levemir) [Levemir] 15 unit SQ BID 10/31/23 12/24/23 History Ipratropium-Albuterol Nebulize 3 ml INHALATION RT-QID PRN 10/31/23 12/24/23 History [Duoneb 0.5 mg-3 mg/3 ml Soln] Nystatin 100,000 Unit/gm Powd 1 applic TOPICAL TID 10/31/23 12/24/23 History [Mycostatin Powder] Ondansetron [Zofran] 4 mg PO Q8H PRN 10/31/23 12/24/23 History guaiFENesin SYRUP 100MG/5ML 200 mg PO Q6H PRN 10/31/23 12/24/23 History [Robitussin] Docusate [Colace] 100 mg PO BID PRN 12/24/23 12/24/23 History Furosemide [Lasix] 80 mg PO DAILY 12/24/23 12/24/23 History Robitussin 12 Hour Cough 30mg/5ml 10 ml PO Q12H PRN 12/24/23 12/24/23 History Sennosides [Senokot] 8.6 mg PO HS PRN 12/24/23 12/24/23 History predniSONE 10 mg PO DAILY 12/24/23 12/24/23 History Allergies Allergy/AdvReac Type Severity Reaction Status Date / Time ciprofloxacin [From Cipro] Allergy Swelling Verified 12/24/23 11:43 diphenhydramine Allergy Swelling Verified 12/24/23 11:43 [From Benadryl] Influenza Virus Vaccines Allergy Anaphylaxis Verified 12/24/23 11:43 iodine Allergy Swelling Verified 12/24/23 11:43 propoxyphene Allergy Swelling Verified 12/24/23 11:43 [From Darvocet-N] red dye Allergy Swelling Verified 12/24/23 11:43 Sulfa (Sulfonamide Allergy Anaphylaxis, Verified 12/24/23 11:43 Antibiotics) heart rate up sulfacetamide Allergy Swelling Verified 12/24/23 11:43 [From Sulfamide] yellow dye Allergy Swelling Verified 12/24/23 11:43 Physical Exam Vitals: Vital Signs Temp Pulse Pulse Resp BP BP Pulse Ox 12/25/23 08:00 93 16 12/25/23 06:50 98.1 F 93 16 147/85 98 12/25/23 00:33 97.8 F 97 17 157/89 99 12/24/23 19:43 97.5 F L 105 H 18 148/72 97 12/24/23 17:47 110 H 124/74 12/24/23 17:37 16 12/24/23 15:50 100 12/24/23 15:38 100 12/24/23 14:00 98.0 F 104 H 16 166/89 99 12/24/23 10:50 98.0 F 104 H 19 135/81 12/24/23 10:20 106 H 19 100 12/24/23 10:10 103 H 16 100 12/24/23 10:00 105 H 15 127/68 99 12/24/23 09:50 102 H 17 127/68 100 12/24/23 09:40 103 H 12 127/68 99 Intake and Output 12/24/23 12/25/23 12/25/23 22:59 06:59 14:59 Intake Total 2280 Output Total 1400 700 Balance 880 -700 Intake: Oral 2280 Output: Urine 1400 700 Other: Voiding Method External Catheter External Catheter Weight 136.078 kg - Constitutional General appearance: morbidly obese, no acute distress - EENT Eyes: EOMI ENT: hearing grossly normal - Respiratory breathing is even and unlabored - Cardiovascular skin warm and dry - Gastrointestinal General gastrointestinal: soft, tenderness - Integumentary Integumentary: no cyanotic, no jaundiced - Musculoskeletal Musculoskeletal: generalized weakness - Psychiatric Psychiatric: A&O x's 3 Results CBC & Chem 7: 12/25/23 02:50 12/25/23 02:50 Labs: Abnormal Lab Results - Last 24 Hours (Table) 12/24/23 12/24/23 12/24/23 Range/Units 12:42 15:02 15:02 WBC (4.50-10.00) X 10*3/uL RBC 3.50 L (3.80-5.40) m/uL Hgb 10.1 L (11.4-16.0) gm/dL Hct 30.7 L (34.0-46.0) % MCHC (32.0-37.0) g/dL RDW 15.6 H (11.5-15.5) % Neutrophils # (1.3-7.7) k/uL Carbon Dioxide (21.6-31.8) mmol/L BUN (9.0-27.0) mg/dL Creatinine (0.6-1.5) mg/dL Est GFR (CKD-EPI) (>=60) BUN/Creatinine Ratio (12.00-20.00) Ratio Glucose (70-110) mg/dL POC Glucose (mg/dL) 308 H (70-110) mg/dL Hemoglobin A1c 9.1 H (<=6.0) % Total Bilirubin (0.3-1.2) mg/dL AST (13-35) U/L Alkaline Phosphatase (41-126) U/L Albumin (3.8-4.9) g/dL Albumin/Globulin Ratio (1.60-3.17) Ratio 12/24/23 12/24/23 12/24/23 Range/Units 17:19 20:16 20:18 WBC (4.50-10.00) X 10*3/uL RBC 3.41 L (3.80-5.40) m/uL Hgb 9.7 L (11.4-16.0) gm/dL Hct 30.4 L (34.0-46.0) % MCHC (32.0-37.0) g/dL RDW (11.5-15.5) % Neutrophils # 8.8 H (1.3-7.7) k/uL Carbon Dioxide (21.6-31.8) mmol/L BUN (9.0-27.0) mg/dL Creatinine (0.6-1.5) mg/dL Est GFR (CKD-EPI) (>=60) BUN/Creatinine Ratio (12.00-20.00) Ratio Glucose (70-110) mg/dL POC Glucose (mg/dL) 328 H 303 H (70-110) mg/dL Hemoglobin A1c (<=6.0) % Total Bilirubin (0.3-1.2) mg/dL AST (13-35) U/L Alkaline Phosphatase (41-126) U/L Albumin (3.8-4.9) g/dL Albumin/Globulin Ratio (1.60-3.17) Ratio 12/25/23 12/25/23 12/25/23 Range/Units 02:50 02:50 06:55 WBC 12.66 H (4.50-10.00) X 10*3/uL RBC 3.34 L (3.80-5.40) m/uL Hgb 9.2 L (11.4-16.0) gm/dL Hct 28.8 L (34.0-46.0) % MCHC 31.9 L (32.0-37.0) g/dL RDW 14.8 H (11.5-15.5) % Neutrophils # (1.3-7.7) k/uL Carbon Dioxide 21.0 L (21.6-31.8) mmol/L BUN 42.7 H (9.0-27.0) mg/dL Creatinine 1.7 H (0.6-1.5) mg/dL Est GFR (CKD-EPI) 35 L (>=60) BUN/Creatinine Ratio 25.12 H (12.00-20.00) Ratio Glucose 397 H (70-110) mg/dL POC Glucose (mg/dL) 398 H (70-110) mg/dL Hemoglobin A1c (<=6.0) % Total Bilirubin 0.2 L (0.3-1.2) mg/dL AST 8 L (13-35) U/L Alkaline Phosphatase 188 H (41-126) U/L Albumin 3.7 L (3.8-4.9) g/dL Albumin/Globulin Ratio 1.42 L (1.60-3.17) Ratio Assessment and Plan (1) Anemia Current Visit: Yes Status: Acute Priority: High Code(s): D64.9 - ANEMIA, UNSPECIFIED SNOMED Code(s): 746584003 (2) Dysfunctional uterine bleeding Current Visit: Yes Status: Acute Priority: High Code(s): N93.8 - OTHER SPECIFIED ABNORMAL UTERINE AND VAGINAL BLEEDING SNOMED Code(s): 56981106220173 (3) Endometrial cancer Current Visit: Yes Status: Acute Priority: High Code(s): C54.1 - MALIGNANT NEOPLASM OF ENDOMETRIUM SNOMED Code(s): 345888898 Plan: Endometrial adenocarcinoma -Oncology history as dictated in HPI. History of well-differentiated FIGO score 1, biopsy from January 2022. -Patient has not had radiation, and is not a surgical candidate because of comorbid conditions -Follows with Dr. Euceda, previously on treatment with megace, but was stopped due to VTE. She is currently on treatment with Arimidex with IUD in place, but has not had f/u with Dr. Euceda since 05/2023. - During last admit in 09/2023, CT abdomen pelvis without contrast showed no suspicious abnormalities to account for patient's abdominal pain. Uterus appears somewhat bulky and adnexa is unremarkable. CT chest showed no evidence to suggest metastatic disease to the chest. -Had long discussion with patient regarding treatments options, and the complexity of her comorbidities and social issues causing limitations in her treatment. Recommended continued f/u with Dr. Euceda, and to continue arimidex per Care Management Coordinator Onc recommendations -At time time patient verbalized her biggest concern is palliation of symptoms and is interested in palliative care -Spoke with case management, Aimee. Referral has been placed to palliative care and home health care, RN/PRENATAL NURSE. -Patient will continue on arimidex. Encouraged pt to schedule virtual visit with Dr. Euceda upon discharge Vaginal bleeding: -Secondary to untreated disease -Eliquis has been held -Hgb 9.2 Anemia: -2/2 to above, exacerbated by anticoagulation -Today Hgb 9.2, MCV 86.2 -Anemia workup ordered -Continue to monitor CBC, transfuse for hgb less than 7
[2023-12-25 20:23] LABS: Glucose,Whole Blood 169 mg/dL (70-110)
[2023-12-26 01:04] LABS: Appearance,Urine Cloudy (Clear); Color,Urine Red; Glucose,Urine (UA) 3+ (Negative); PH, Urine 5.5 (5.0-8.0); Protein,Urine 2+ (Negative); Specific Gravity,Urine 1.017 (1.001-1.035)
[2023-12-26 01:05] LABS: Bacteria,Urine Many /hpf; Bilirubin,Urine Negative (Negative); Blood,Urine Large (Negative); Budding Yeast,Urine Occasional /hpf; Ketones,Urine Trace (Negative); Leukocyte Esterase,Urine Large (Negative); Nitrite,Urine Negative (Negative); RBC,Urine >182 /hpf (0-5); Urobilinogen,Urine <2.0 mg/dL (<2.0); WBC,Urine 174 /hpf (0-5)
[2023-12-26 07:09] LABS: Glucose,Whole Blood 152 mg/dL (70-110)
[2023-12-26 08:46] LABS: Basophils # (A) 0.08 X 10*3/uL (0.00-0.10); Basophils % (A) 0.6 %; Eosinophils # (A) 0.67 X 10*3/uL (0.04-0.35); Eosinophils % (A) 5.2 %; HCT 28.9 % (37.2-46.3); HGB 9.3 g/dL (12.0-15.0); Lymphocytes % (A) 19.3 %; MCH 27.7 pg (27.0-32.0); MCHC 32.2 g/dL (32.0-37.0); Monocytes % (A) 6.9 %; NRBC Per 100 WBC 0 X 10*3/uL (0.00-0.01); Neutrophils # (A) 8.74 X 10*3/uL (1.80-7.70); Neutrophils % (A) 67.5 %; Platelet Count 334 X 10*3/uL (140-440); RBC 3.36 X 10*6/uL (4.10-5.20); RDW 15.1 % (11.5-14.5); WBC 12.95 X 10*3/uL (4.50-10.00)
[2023-12-26 08:49] LABS: ALT 6 U/L (8-44); AST 10 U/L (13-35); Albumin 3.7 g/dL (3.8-4.9); Albumin/Globulin Ratio 1.48 Ratio (1.60-3.17); Alkaline Phosphatase 165 U/L (41-126); BUN/Creat Ratio 21.86 Ratio (12.00-20.00); Blood Urea Nitrogen 48.1 mg/dL (9.0-27.0); Calcium 8.9 mg/dL (8.7-10.3); Carbon Dioxide 20.5 mmol/L (21.6-31.8); Chloride 106 mmol/L (96-109); Globulin 2.5 g/dL (1.6-3.3); Glucose 162 mg/dL (70-110); Sodium 139 mmol/L (135-145); Total Bilirubin <0.2 mg/dL (0.3-1.2); Total Protein 6.2 g/dL (6.2-8.2)
[2023-12-26] MEDS: FUROSEMIDE 80 MG TAB PO SCH (09:01)
[2023-12-26 11:13] LABS: % Iron Saturation 11.92 (12.00-45.00)
[2023-12-26 12:03] LABS: Glucose,Whole Blood 136 mg/dL (70-110)
--- NOTE | 2023-12-26 16:45 | P.PN ---
Subjective Progress Note Date: 12/25/23 HISTORY OF PRESENT ILLNESS: This is a 58-year-old female patient of mine with past medical history of hyp ertension and hypertensive cardiovascular disease, mixed hyperlipidemia, diabetes mellitus type 2 insulin requiring, diabetic polyneuropathy, history of uterine cancer has been under the care of Dr. Euceda at [facility], has not seen him since May, has been in the hospital not too long ago because of significant wound to the right buttock area that she just recovered from not too long ago about a week ago was seen at the wound clinic, apparently patient also had a significant history of chronic kidney disease stage IIIb, history of depression, history of rheumatoid arthritis, SLE, patient presented to the emergency department at [facility] because of increased bleeding and the patient has been getting significant amount of clot, she was scared that the patient is not able to control her bleeding at this time, even though the patient have thought in the past about going into hospice and palliative care but because of the significant mount of bleeding she was admitted to the hospital for evaluation, we have consulted hematology oncology as well as [facility] to see if the patient will make her decision which way she wants to go at this point in time, patient stated that she is not able to go for any surgical intervention, she is not able to take and tolerate any chemotherapy at this time, she is not able to do radiation therapy, therefore we have recommended for the patient to be seen in consultation by hospice/palliative care. 12/24: Patient is laying down in bed in no apparent distress at this time, she denies any chest pain, she is not short of breath, she has no abdominal pain, nausea vomiting or diarrhea, she continues to have uterine bleeding, she was seen by the chemical research worker, from [facility] and the patient is to make her final decision whether or not she should go in hospice or palliative care versus continue active care, she is yet to see hematology oncology we will continue to follow-up with the patient her hemoglobin is stable at 9.2, will transfuse for hemoglobin less than 7. REVIEW OF SYSTEMS: Constitutional: No documented fever, no chills, no night sweats. No weight change. No weakness, fatigue or lethargy. No daytime sleepiness. EENT: No headache. No blurred vision or double vision, no loss of vision. No loss of Hearing, no ringing in the ears, no dizziness. No nasal drainage or congestion. No epistaxis. No sore throat. Lungs: No shortness of breath, no cough, no sputum production. No wheezing. Reports dyspnea with activity. Cardiovascular: No chest pain, no lower extremity edema. No palpitations. No paroxysmal nocturnal dyspnea. No orthopnea. No lightheadedness or dizziness. No syncopal episodes. Abdominal: Reports abdominal pain. No nausea, vomiting. No diarrhea. No constipation. No bloody or tarry stools reports loss of appetite. Genitourinary: No dysuria, increased frequency, urgency. No urinary retention.positive for uterine bleeding Musculoskeletal: No myalgias. No muscle weakness, no gait dysfunction, no frequent falls. No back pain. No neck pain. Integumentary: No wounds, no lesions. No rash or pruritus. No unusual bruising. No change in hair or nails. Neurologic: No aphasia. No facial droop. No change in mentation. No head injury. No headache. No paralysis. No paresthesia. Psychiatric: positive for depressio, anxiety. No mood swings. Endocrine: positive for abnormal blood sugars. No weight change. PHYSICAL EXAMINATION: General: 58-year-old female laying down in bed in no apparent distress. HEENT: Head is atraumatic, normocephalic, pupils were equal round reactive to light and recommendation, extraocular muscle movement were intact, sclera nonicteric, conjunctivae were pale, mucous membranes of the mouth are somewhat dry. Neck: Supple, no JVP, normal carotid upstroke bilaterally, no lymphadenopathy. Chest: Decreased breath sounds at the bases, few rhonchi, no expiratory wheezes, no chest wall tenderness, no intercostal retractions. Heart: First heart sound is normal, second heart sound is normal there is systolic ejection murmur 2/6 located in the left sternal border. Abdomen: Soft, nontender, nondistended, positive bowel sounds. Extremities: There is no edema no calf tenderness DP +2 bilaterally. Neurologic examination: Patient is awake alert and oriented x3, cranial nerves II-12 appear grossly intact, muscle power were 5 out of 5 in upper extremities and 5 out of 5 in bilateral lower extremities, deep tendon reflexes normal bilaterally. ASSESSMENT AND PLAN: 1. Acute on chronic uterine bleeding due to possible metastatic uterine cancer. Patient will be admitted to the hospital monitor the patient CBC in the next 24 hours, transfuse for hemoglobin less than 7, meanwhile consult hematology oncology for further recommendation at this time patient did have an IUD in place as the patient declined any treatment including surgery chemotherapy or radiation therapy at this point in time, she has not seen Dr. Nicholson since May of this year. 2. Hypertension and hypertensive cardiovascular disease. Continue patient on metoprolol 50 mg orally twice every day, monitor the patient blood pressure very closely. 3. Mixed hyperlipidemia. Continue patient on atorvastatin 10 mg once every day, monitor lipid panel, keep LDL 55-70. 4. Diabetes mellitus type 2. Continue Lantus 15 units twice a day along with NovoLog 8 units before each meal 3 times a day along with a sliding scale insulin. 5. History of bilateral pulmonary emboli status post IVC filter placement, discontinue Eliquis for now due to the uterine bleeding. 6. History of SLE/rheumatoid arthritis continue patient on Plaquenil 200 mg orally twice every day, prednisone 10 mg orally once every day, patient is not a candidate for any DMARDs. 7. Anxiety and depressive disorder continue fluoxetine 20 mg orally once every day. 8. History of gout continue patient on allopurinol 200 mg orally once every day. 9. History of COPD. Continue patient on DuoNeb 3 mL nebulization 4 times every day, continue montelukast 10 mg orally once every day. 10. History of uterine cancer patient has been currently on anastrozole 1 mg orally once every day, she has not been seen by her oncologist Dr. Euceda since May of this year, she has an IUD in the uterus. 11. GERD with esophagitis. Continue pantoprazole 40 mg orally twice every day. 12. DVT prophylaxis. Bilateral knee-high DANIAL hose hold off Eliquis for now. 13. GI prophylaxis. Continue patient on pantoprazole 40 mg orally twice every day. 14. Acute on chronic blood loss anemia. Continue iron 325 mg orally twice every day, monitor the patient CBC over the next 24-hour, transfuse for hemoglobin less than 7. 15. Overall prognosis is very guarded. Objective - Vital Signs Vital signs: Vital Signs Temp 97.3 F L 12/25/23 12:35 Pulse 101 H 12/25/23 12:35 Resp 16 12/25/23 12:35 BP 149/81 12/25/23 12:35 Pulse Ox 96 12/25/23 12:35 FiO2 Intake & Output 12/24/23 12/25/23 12/25/23 18:59 06:59 18:59 Intake Total 2280 2400 Output Total 6588 947 8048 Balance 380 -700 1100 Weight 136.078 kg 136.078 kg Intake: Oral 2280 2400 Output: Urine 1758 888 [id number] Other: Voiding Method External Catheter External Catheter # Voids 1 - Labs CBC & Chem 7: 12/25/23 02:50 12/25/23 02:50 Labs: Abnormal Lab Results - Last 24 Hours (Table) 12/24/23 12/24/23 12/24/23 Range/Units 15:02 20:16 20:18 WBC (4.50-10.00) X 10*3/uL RBC 3.41 L (3.80-5.40) m/uL Hgb 9.7 L (11.4-16.0) gm/dL Hct 30.4 L (34.0-46.0) % MCHC (32.0-37.0) g/dL RDW (11.5-14.5) % Neutrophils # 8.8 H (1.3-7.7) k/uL Carbon Dioxide (21.6-31.8) mmol/L BUN (9.0-27.0) mg/dL Creatinine (0.6-1.5) mg/dL Est GFR (CKD-EPI) (>=60) BUN/Creatinine Ratio (12.00-20.00) Ratio Glucose (70-110) mg/dL POC Glucose (mg/dL) 303 H (70-110) mg/dL Hemoglobin A1c 9.1 H (<=6.0) % Total Bilirubin (0.3-1.2) mg/dL AST (13-35) U/L Alkaline Phosphatase (41-126) U/L Albumin (3.8-4.9) g/dL Albumin/Globulin Ratio (1.60-3.17) Ratio 12/25/23 12/25/23 12/25/23 Range/Units 02:50 02:50 06:55 WBC 12.66 H (4.50-10.00) X 10*3/uL RBC 3.34 L (3.80-5.40) m/uL Hgb 9.2 L (11.4-16.0) gm/dL Hct 28.8 L (34.0-46.0) % MCHC 31.9 L (32.0-37.0) g/dL RDW 14.8 H (11.5-14.5) % Neutrophils # (1.3-7.7) k/uL Carbon Dioxide 21.0 L (21.6-31.8) mmol/L BUN 42.7 H (9.0-27.0) mg/dL Creatinine 1.7 H (0.6-1.5) mg/dL Est GFR (CKD-EPI) 35 L (>=60) BUN/Creatinine Ratio 25.12 H (12.00-20.00) Ratio Glucose 397 H (70-110) mg/dL POC Glucose (mg/dL) 398 H (70-110) mg/dL Hemoglobin A1c (<=6.0) % Total Bilirubin 0.2 L (0.3-1.2) mg/dL AST 8 L (13-35) U/L Alkaline Phosphatase 188 H (41-126) U/L Albumin 3.7 L (3.8-4.9) g/dL Albumin/Globulin Ratio 1.42 L (1.60-3.17) Ratio 12/25/23 12/25/23 Range/Units 11:49 16:53 WBC (4.50-10.00) X 10*3/uL RBC (3.80-5.40) m/uL Hgb (11.4-16.0) gm/dL Hct (34.0-46.0) % MCHC (32.0-37.0) g/dL RDW (11.5-14.5) % Neutrophils # (1.3-7.7) k/uL Carbon Dioxide (21.6-31.8) mmol/L BUN (9.0-27.0) mg/dL Creatinine (0.6-1.5) mg/dL Est GFR (CKD-EPI) (>=60) BUN/Creatinine Ratio (12.00-20.00) Ratio Glucose (70-110) mg/dL POC Glucose (mg/dL) 254 H 114 H (70-110) mg/dL Hemoglobin A1c (<=6.0) % Total Bilirubin (0.3-1.2) mg/dL AST (13-35) U/L Alkaline Phosphatase (41-126) U/L Albumin (3.8-4.9) g/dL Albumin/Globulin Ratio (1.60-3.17) Ratio
--- NOTE | 2023-12-26 16:48 | P.PN ---
Subjective Progress Note Date: 12/26/23 HISTORY OF PRESENT ILLNESS: This is a 58-year-old female patient of mine with past medical history of hyp ertension and hypertensive cardiovascular disease, mixed hyperlipidemia, diabetes mellitus type 2 insulin requiring, diabetic polyneuropathy, history of uterine cancer has been under the care of Dr. Euceda at [facility], has not seen him since May, has been in the hospital not too long ago because of significant wound to the right buttock area that she just recovered from not too long ago about a week ago was seen at the wound clinic, apparently patient also had a significant history of chronic kidney disease stage IIIb, history of depression, history of rheumatoid arthritis, SLE, patient presented to the emergency department at [facility] because of increased bleeding and the patient has been getting significant amount of clot, she was scared that the patient is not able to control her bleeding at this time, even though the patient have thought in the past about going into hospice and palliative care but because of the significant mount of bleeding she was admitted to the hospital for evaluation, we have consulted hematology oncology as well as [facility] to see if the patient will make her decision which way she wants to go at this point in time, patient stated that she is not able to go for any surgical intervention, she is not able to take and tolerate any chemotherapy at this time, she is not able to do radiation therapy, therefore we have recommended for the patient to be seen in consultation by hospice/palliative care. 12/24: Patient is laying down in bed in no apparent distress at this time, she denies any chest pain, she is not short of breath, she has no abdominal pain, nausea vomiting or diarrhea, she continues to have uterine bleeding, she was seen by the vegetable farm worker, from [facility] and the patient is to make her final decision whether or not she should go in hospice or palliative care versus continue active care, she is yet to see hematology oncology we will continue to follow-up with the patient her hemoglobin is stable at 9.2, will transfuse for hemoglobin less than 7. 12/25: Patient is laying down in bed she continues to have some pain in her shoulder as well as her upper chest, she appears to be tearful at this point in time, she wanted to go with palliative care at this point in time, she was already seen by [facility] hospice/palliative care, and we will trying to arrange for the patient to have a bariatric bed along with a bariatric bedside commode or even a hospital bed with a gel mattress so the patient can be discharged home tomorrow morning, her urinalysis somewhat positive, she was started on IV antibiotic in the form of ceftriaxone 1 g of piggyback every 24 hours, we will switch to oral Ceftin when she goes home, keep her off Eliquis for now, she was seen in consultation by hematology oncology who recommended palliative care as well. The plan is to transfer the patient back home hopefully tomorrow with palliative care REVIEW OF SYSTEMS: Constitutional: No documented fever, no chills, no night sweats. No weight change. No weakness, fatigue or lethargy. No daytime sleepiness. EENT: No headache. No blurred vision or double vision, no loss of vision. No loss of Hearing, no ringing in the ears, no dizziness. No nasal drainage or congestion. No epistaxis. No sore throat. Lungs: No shortness of breath, no cough, no sputum production. No wheezing. Reports dyspnea with activity. Cardiovascular: No chest pain, no lower extremity edema. No palpitations. No paroxysmal nocturnal dyspnea. No orthopnea. No lightheadedness or dizziness. No syncopal episodes. Abdominal: Reports abdominal pain. No nausea, vomiting. No diarrhea. No constipation. No bloody or tarry stools reports loss of appetite. Genitourinary: No dysuria, increased frequency, urgency. No urinary retention.positive for uterine bleeding Musculoskeletal: No myalgias. No muscle weakness, no gait dysfunction, no frequent falls. No back pain. No neck pain. Integumentary: No wounds, no lesions. No rash or pruritus. No unusual bruising. No change in hair or nails. Neurologic: No aphasia. No facial droop. No change in mentation. No head injury. No headache. No paralysis. No paresthesia. Psychiatric: positive for depressio, anxiety. No mood swings. Endocrine: positive for abnormal blood sugars. No weight change. PHYSICAL EXAMINATION: General: 58-year-old female laying down in bed in no apparent distress. HEENT: Head is atraumatic, normocephalic, pupils were equal round reactive to light and recommendation, extraocular muscle movement were intact, sclera nonicteric, conjunctivae were pale, mucous membranes of the mouth are somewhat dry. Neck: Supple, no JVP, normal carotid upstroke bilaterally, no lymphadenopathy. Chest: Decreased breath sounds at the bases, few rhonchi, no expiratory wheezes, no chest wall tenderness, no intercostal retractions. Heart: First heart sound is normal, second heart sound is normal there is systolic ejection murmur 2/6 located in the left sternal border. Abdomen: Soft, nontender, nondistended, positive bowel sounds. Extremities: There is no edema no calf tenderness DP +2 bilaterally. Neurologic examination: Patient is awake alert and oriented x3, cranial nerves II-12 appear grossly intact, muscle power were 5 out of 5 in upper extremities and 5 out of 5 in bilateral lower extremities, deep tendon reflexes normal bilaterally. ASSESSMENT AND PLAN: 1. Acute on chronic uterine bleeding due to possible metastatic uterine cancer. Hemoglobin has been stable at this time, she was seen in consultation by hematology oncology who recommended palliative care at this time, patient will likely be transferred back home with palliative care tomorrow morning if we make arrangement for her to have her hospital bed as well as bedside commode. 2. Hypertension and hypertensive cardiovascular disease. Continue patient on metoprolol 50 mg orally twice every day, monitor the patient blood pressure very closely. 3. Mixed hyperlipidemia. Continue patient on atorvastatin 10 mg once every day, monitor lipid panel, keep LDL 55-70. 4. Diabetes mellitus type 2. Continue Lantus 15 units twice a day along with NovoLog 8 units before each meal 3 times a day along with a sliding scale insulin. 5. History of bilateral pulmonary emboli status post IVC filter placement, discontinue Eliquis for now due to the uterine bleeding. 6. History of SLE/rheumatoid arthritis continue patient on Plaquenil 200 mg orally twice every day, prednisone 10 mg orally once every day, patient is not a candidate for any DMARDs. 7. Anxiety and depressive disorder continue fluoxetine 20 mg orally once every day. 8. History of gout continue patient on allopurinol 200 mg orally once every day. 9. History of COPD. Continue patient on DuoNeb 3 mL nebulization 4 times every day, continue montelukast 10 mg orally once every day. 10. History of uterine cancer patient has been currently on anastrozole 1 mg orally once every day, she has not been seen by her oncologist Dr. Euceda since May of this year, she has an IUD in the uterus. 11. GERD with esophagitis. Continue pantoprazole 40 mg orally twice every day. 12. DVT prophylaxis. Bilateral knee-high DANIAL hose hold off Eliquis for now. 13. GI prophylaxis. Continue patient on pantoprazole 40 mg orally twice every day. 14. Acute on chronic blood loss anemia. Continue iron 325 mg orally twice every day, monitor the patient CBC over the next 24-hour, transfuse for hemoglobin less than 7. 15. Hematuria likely due to the uterine bleeding elevated white cells in the urine however the leukocytes esterase were negative and nitrites were negative as well but the patient does have symptoms send the urine for culture continue ceftriaxone 1 g every back every 24 hours hopefully home with Ceftin to 50 mg orally twice every day for 7 days. 16. Discharge home with palliative care tomorrow morning if DME was arranged. Objective - Vital Signs Vital signs: Vital Signs Temp 98.5 F 12/26/23 13:48 Pulse 90 12/26/23 13:48 Resp 16 12/26/23 13:48 BP 112/72 12/26/23 13:48 Pulse Ox 99 12/26/23 13:48 FiO2 Intake & Output 12/25/23 12/26/23 12/26/23 18:59 06:59 18:59 Intake Total 2400 Output Total 1300 500 400 Balance 1100 -500 -400 Weight 136.078 kg Intake: Oral 2400 Output: Urine 1300 500 400 Other: Voiding Method External Catheter External Catheter - Labs CBC & Chem 7: 12/26/23 03:01 12/26/23 03:01 Labs: Abnormal Lab Results - Last 24 Hours (Table) 12/25/23 12/25/23 12/25/23 Range/Units 02:50 16:53 20:20 WBC (4.50-10.00) X 10*3/uL RBC (4.10-5.20) X 10*6/uL Hgb (12.0-15.0) g/dL Hct (37.2-46.3) % RDW (11.5-14.5) % Immature Gran # (0.00-0.04) X 10*3/uL Neutrophils # (1.80-7.70) X 10*3/uL Eosinophils # (0.04-0.35) X 10*3/uL Carbon Dioxide (21.6-31.8) mmol/L Anion Gap (4.00-12.00) mmol/L BUN (9.0-27.0) mg/dL Creatinine (0.6-1.5) mg/dL Est GFR (CKD-EPI) (>=60) BUN/Creatinine Ratio (12.00-20.00) Ratio Glucose (70-110) mg/dL POC Glucose (mg/dL) 114 H 169 H (70-110) mg/dL Iron 41 L (50-170) UG/DL % Saturation 11.92 L (12.00-45.00) Total Bilirubin (0.3-1.2) mg/dL AST (13-35) U/L ALT (8-44) U/L Alkaline Phosphatase (41-126) U/L Albumin (3.8-4.9) g/dL Albumin/Globulin Ratio (1.60-3.17) Ratio Urine Appearance (Clear) Urine Protein (Negative) Urine Glucose (UA) (Negative) Urine Ketones (Negative) Urine Blood (Negative) Ur Leukocyte Esterase (Negative) Urine RBC (0-5) /hpf Urine WBC (0-5) /hpf Urine Bacteria (None) /hpf Urine Yeast (Budding) (None) /hpf 12/26/23 12/26/23 12/26/23 Range/Units 00:22 03:01 03:01 WBC 12.95 H (4.50-10.00) X 10*3/uL RBC 3.36 L (4.10-5.20) X 10*6/uL Hgb 9.3 L (12.0-15.0) g/dL Hct 28.9 L (37.2-46.3) % RDW 15.1 H (11.5-14.5) % Immature Gran # 0.06 H (0.00-0.04) X 10*3/uL Neutrophils # 8.74 H (1.80-7.70) X 10*3/uL Eosinophils # 0.67 H (0.04-0.35) X 10*3/uL Carbon Dioxide 20.5 L (21.6-31.8) mmol/L Anion Gap 12.50 H (4.00-12.00) mmol/L BUN 48.1 H (9.0-27.0) mg/dL Creatinine 2.2 H (0.6-1.5) mg/dL Est GFR (CKD-EPI) 26 L (>=60) BUN/Creatinine Ratio 21.86 H (12.00-20.00) Ratio Glucose 162 H (70-110) mg/dL POC Glucose (mg/dL) (70-110) mg/dL Iron (50-170) UG/DL % Saturation (12.00-45.00) Total Bilirubin <0.2 L (0.3-1.2) mg/dL AST 10 L (13-35) U/L ALT 6 L (8-44) U/L Alkaline Phosphatase 165 H (41-126) U/L Albumin 3.7 L (3.8-4.9) g/dL Albumin/Globulin Ratio 1.48 L (1.60-3.17) Ratio Urine Appearance Cloudy H (Clear) Urine Protein 2+ H (Negative) Urine Glucose (UA) 3+ H (Negative) Urine Ketones Trace H (Negative) Urine Blood Large H (Negative) Ur Leukocyte Esterase Large H (Negative) Urine RBC >182 H (0-5) /hpf Urine WBC 174 H (0-5) /hpf Urine Bacteria Many H (None) /hpf Urine Yeast (Budding) Occasional H (None) /hpf 12/26/23 12/26/23 Range/Units 07:08 12:02 WBC (4.50-10.00) X 10*3/uL RBC (4.10-5.20) X 10*6/uL Hgb (12.0-15.0) g/dL Hct (37.2-46.3) % RDW (11.5-14.5) % Immature Gran # (0.00-0.04) X 10*3/uL Neutrophils # (1.80-7.70) X 10*3/uL Eosinophils # (0.04-0.35) X 10*3/uL Carbon Dioxide (21.6-31.8) mmol/L Anion Gap (4.00-12.00) mmol/L BUN (9.0-27.0) mg/dL Creatinine (0.6-1.5) mg/dL Est GFR (CKD-EPI) (>=60) BUN/Creatinine Ratio (12.00-20.00) Ratio Glucose (70-110) mg/dL POC Glucose (mg/dL) 152 H 136 H (70-110) mg/dL Iron (50-170) UG/DL % Saturation (12.00-45.00) Total Bilirubin (0.3-1.2) mg/dL AST (13-35) U/L ALT (8-44) U/L Alkaline Phosphatase (41-126) U/L Albumin (3.8-4.9) g/dL Albumin/Globulin Ratio (1.60-3.17) Ratio Urine Appearance (Clear) Urine Protein (Negative) Urine Glucose (UA) (Negative) Urine Ketones (Negative) Urine Blood (Negative) Ur Leukocyte Esterase (Negative) Urine RBC (0-5) /hpf Urine WBC (0-5) /hpf Urine Bacteria (None) /hpf Urine Yeast (Budding) (None) /hpf
[2023-12-26 17:05] LABS: Glucose,Whole Blood 189 mg/dL (70-110)
[2023-12-26] MEDS: SODIUM FERRIC GLUCONAT-SUCROSE 125 MG in SODIUM CHLORIDE 0.9% 100 ML IVPB SCH (17:37)
[2023-12-26 20:36] LABS: Glucose,Whole Blood 220 mg/dL (70-110)
[2023-12-27 06:58] LABS: Methylmalonic Acid 0.78 umol/L (<0.40)
[2023-12-27 07:06] LABS: Glucose,Whole Blood 245 mg/dL (70-110)
[2023-12-27 09:34] LABS: Basophils # (A) 0.07 X 10*3/uL (0.00-0.10); Basophils % (A) 0.5 %; Eosinophils # (A) 0.56 X 10*3/uL (0.04-0.35); Eosinophils % (A) 4.1 %; HCT 30.5 % (37.2-46.3); HGB 9.7 g/dL (12.0-15.0); Lymphocytes % (A) 13.9 %; MCH 28.1 pg (27.0-32.0); MCHC 31.8 g/dL (32.0-37.0); MCV 88.4 FL (80.0-97.0); Monocytes # (A) 0.82 X 10*3/uL (0.20-1.00); NRBC Per 100 WBC 0 X 10*3/uL (0.00-0.01); Neutrophils # (A) 10.26 X 10*3/uL (1.80-7.70); Platelet Count 358 X 10*3/uL (140-440); RBC 3.45 X 10*6/uL (4.10-5.20); RDW 14.7 % (11.5-14.5); WBC 13.68 X 10*3/uL (4.50-10.00)
[2023-12-27 10:53] LABS: ALT 9 U/L (8-44); AST 10 U/L (13-35); Albumin/Globulin Ratio 1.43 Ratio (1.60-3.17); Alkaline Phosphatase 168 U/L (41-126); BUN/Creat Ratio 29.81 Ratio (12.00-20.00); Blood Urea Nitrogen 62.6 mg/dL (9.0-27.0); Calcium 8.9 mg/dL (8.7-10.3); Carbon Dioxide 19.7 mmol/L (21.6-31.8); Chloride 108 mmol/L (96-109); Globulin 2.8 g/dL (1.6-3.3); Glucose 258 mg/dL (70-110); Potassium 5.5 mmol/L (3.5-5.5); Sodium 141 mmol/L (135-145); Total Bilirubin <0.2 mg/dL (0.3-1.2); Total Protein 6.8 g/dL (6.2-8.2)
[2023-12-27 11:57] LABS: Glucose,Whole Blood 166 mg/dL (70-110)
--- NOTE | 2023-12-27 12:43 | P.DS ---
Providers Date of admission: 12/24/23 09:59 Expected date of discharge: 12/27/23 Attending physician: Micahel Ramirez Consults: 12/24/23 10:08 Consult Physician Routine Consulting Provider: Marleny Escobar Consult Reason/Comments: cancer Do you want consulting provider notified?: Yes Primary care physician: Michael Ramirez [facility] Course: HISTORY OF PRESENT ILLNESS: This is a 58-year-old female patient of mine with past medical history of hypertension and hypertensive cardiovascular disease, mixed hyperlipidemia, diabetes mellitus type 2 insulin requiring, diabetic polyneuropathy, history of uterine cancer has been under the care of Dr. Euceda at [facility], has not seen him since May, has been in the hospital not too long ago because of significant wound to the right buttock area that she just recovered from not too long ago about a week ago was seen at the wound clinic, apparently patient also had a significant history of chronic kidney disease stage IIIb, history of depression, history of rheumatoid arthritis, SLE, patient presented to the emergency department at [facility] because of increased bleeding and the patient has been getting significant amount of clot, she was scared that the patient is not able to control her bleeding at this time, even though the patient have thought in the past about going into hospice and palliative care but because of the significant mount of bleeding she was admitted to the hospital for evaluation, we have consulted hematology oncology as well as [facility] hospice to see if the patient will make her decision which way she wants to go at this point in time, patient stated that she is not able to go for any surgical intervention, she is not able to take and tolerate any chemotherapy at this time, she is not able to do radiation therapy, therefore we have recommended for the patient to be seen in consultation by hospice/palliative care. 12/24: Patient is laying down in bed in no apparent distress at this time, she denies any chest pain, she is not short of breath, she has no abdominal pain, nausea vomiting or diarrhea, she continues to have uterine bleeding, she was seen by the shoddy mill worker, from [facility] and the patient is to make her final decision whether or not she should go in hospice or palliative care versus continue active care, she is yet to see hematology oncology we will continue to follow-up with the patient her hemoglobin is stable at 9.2, will transfuse for hemoglobin less than 7. 12/25: Patient is laying down in bed she continues to have some pain in her shoul rusty as well as her upper chest, she appears to be tearful at this point in time, she wanted to go with palliative care at this point in time, she was already seen by [facility] hospice/palliative care, and we will trying to arrange for the patient to have a bariatric bed along with a bariatric bedside commode or even a hospital bed with a gel mattress so the patient can be discharged home tomorrow morning, her urinalysis somewhat positive, she was started on IV antibiotic in the form of ceftriaxone 1 g of piggyback every 24 hours, we will switch to oral Ceftin when she goes home, keep her off Eliquis for now, she was seen in consultation by hematology oncology who recommended palliative care as well. The plan is to transfer the patient back home hopefully tomorrow with palliative care 12/26: Patient is sitting up at the edge of the bed today, she denies any chest pain, shortness of breath, she is going to be discharged home today follow-up with the palliative care on Friday, I will try to arrange for the patient to have her hospital bed as well gel overlay mattress as well as bedside commode since hers are broken, we will continue current treatment plan, keep the patient off Eliquis until reevaluation on Friday by the palliative care nurse, patient is aware of her poor prognosis, her bleeding is minimal, her hemoglobin is stable at 9.7, we will monitor the patient very closely at this point in time, and she will be able to be discharged home later on when her is able to get back home at around 6:00 this evening. Discharge diagnoses: 1. Acute on chronic uterine bleeding due to untreated uterine cancer. 2. Dysfunctional uterine bleeding due to uterine cancer and treated. Currently has an IUD in place. 3. Hypertension and hypertensive cardiovascular disease. 4. Mixed hyperlipidemia. 5. Diabetes mellitus type 2. 6. History of bilateral pulmonary emboli status post IVC filter placement 7. History of SLE/rheumatoid arthritis 8. Anxiety and depressive disorder 9. History of gout 10. History of COPD. 11. History of uterine cancer 12. GERD with esophagitis. 13. Acute on chronic blood loss anemia. 14. Hematuria likely due to the uterine bleeding Patient Condition at Discharge: Serious Plan - Discharge Summary Discharge Rx Participant: Yes New Discharge Prescriptions: No Action Montelukast [Singulair] 10 mg PO DAILY hydrOXYzine HCL [Atarax] 25 mg PO QID PRN PRN Reason: Anxiety FLUoxetine HCL [PROzac] 20 mg PO DAILY Anastrozole 1 mg PO DAILY Metoprolol Tartrate [Lopressor] 50 mg PO BID-W/MEALS gemfibroziL [Lopid] 600 mg PO AC-BID INSULIN ASPART (NovoLOG) [NovoLOG (formulary)] 8 unit SQ AC-TID each Acetaminophen Tab [Tylenol] 650 mg PO Q6HR PRN tab PRN Reason: Mild Pain Or Fever > 100.5 guaiFENesin SYRUP 100MG/5ML [Robitussin] 200 mg PO Q6H PRN PRN Reason: Cough Nystatin 100,000 Unit/gm Powd [Mycostatin Powder] 1 applic TOPICAL TID Ipratropium-Albuterol Nebulize [Duoneb 0.5 mg-3 mg/3 ml Soln] 3 ml INHALATION RT-QID PRN PRN Reason: Shortness Of Breath Ferrous Sulfate [Feosol] 325 mg PO BID Docusate [Colace] 100 mg PO BID PRN PRN Reason: Constipation Robitussin 12 Hour Cough 30mg/5ml 10 ml PO Q12H PRN PRN Reason: Cough Sennosides [Senokot] 8.6 mg PO HS PRN PRN Reason: Constipation allopurinoL [Zyloprim] 100 mg PO BID Atorvastatin [Lipitor] 10 mg PO DAILY Hydroxychloroquine Sulfate [Plaquenil] 200 mg PO BID Pantoprazole [Protonix] 40 mg PO BID Ondansetron [Zofran] 4 mg PO Q8H PRN PRN Reason: Nausea And Vomiting HYDROcodone/APAP 5-325MG [Baylis 5-325] 1 tab PO Q4HR PRN PRN Reason: Pain INSULIN ASPART (NovoLOG) [NovoLOG (formulary)] See Protocol SQ ACHS Apixaban [Eliquis] 2.5 mg PO BID Insulin Detemir (Levemir) [Levemir] 15 unit SQ BID predniSONE 10 mg PO DAILY Furosemide [Lasix] 80 mg PO DAILY Discharge Medication List Montelukast [Singulair] 10 mg PO DAILY 01/09/17 [History] allopurinoL [Zyloprim] 100 mg PO BID 01/21/22 [History] Atorvastatin [Lipitor] 10 mg PO DAILY 02/15/22 [History] Hydroxychloroquine Sulfate [Plaquenil] 200 mg PO BID 04/13/22 [History] hydrOXYzine HCL [Atarax] 25 mg PO QID PRN 04/13/22 [History] FLUoxetine HCL [PROzac] 20 mg PO DAILY 10/27/22 [History] Pantoprazole [Protonix] 40 mg PO BID 10/27/22 [History] Anastrozole 1 mg PO DAILY 05/13/23 [History] Metoprolol Tartrate [Lopressor] 50 mg PO BID-W/MEALS 05/13/23 [History] gemfibroziL [Lopid] 600 mg PO AC-BID 05/13/23 [History] Acetaminophen Tab [Tylenol] 650 mg PO Q6HR PRN tab 10/09/23 [Rx] INSULIN ASPART (NovoLOG) [NovoLOG (formulary)] 8 unit SQ AC-TID each 10/09/23 [Rx] Apixaban [Eliquis] 2.5 mg PO BID 10/31/23 [History] Ferrous Sulfate [Feosol] 325 mg PO BID 10/31/23 [History] HYDROcodone/APAP 5-325MG [Baylis 5-325] 1 tab PO Q4HR PRN 10/31/23 [History] INSULIN ASPART (NovoLOG) [NovoLOG (formulary)] See Protocol SQ ACHS 10/31/23 [History] Insulin Detemir (Levemir) [Levemir] 15 unit SQ BID 10/31/23 [History] Ipratropium-Albuterol Nebulize [Duoneb 0.5 mg-3 mg/3 ml Soln] 3 ml INHALATION RT-QID PRN 10/31/23 [History] Nystatin 100,000 Unit/gm Powd [Mycostatin Powder] 1 applic TOPICAL TID 10/31/23 [History] Ondansetron [Zofran] 4 mg PO Q8H PRN 10/31/23 [History] guaiFENesin SYRUP 100MG/5ML [Robitussin] 200 mg PO Q6H PRN 10/31/23 [History] Docusate [Colace] 100 mg PO BID PRN 12/24/23 [History] Furosemide [Lasix] 80 mg PO DAILY 12/24/23 [History] Robitussin 12 Hour Cough 30mg/5ml 10 ml PO Q12H PRN 12/24/23 [History] Sennosides [Senokot] 8.6 mg PO HS PRN 12/24/23 [History] predniSONE 10 mg PO DAILY 12/24/23 [History] Follow up Appointment(s)/Referral(s): Michael Ramirez MD [Primary Care Provider] - 1-2 days [facility] [NON-STAFF] - As Needed [facility], [NON-STAFF] - As Needed
[2023-12-27 13:52] VITALS: BP 103/73; PULSE 76; RESP 16; TEMP 97.6
== END 2023-12-27 16:37 | disposition home health service (06) ==
LOC: EC 06:52 → 5NMEDONC 09:59
PROVIDERS: ADMIT Internal Medicine; ATTEND Internal Medicine
DX: N93.8 Other specified abnormal uterine and vaginal bleeding (principal); R31.9 Hematuria, unspecified; C54.1 Malignant neoplasm of endometrium; D62 Acute posthemorrhagic anemia; J44.9 Chronic obstructive pulmonary disease, unspecified; I13.10 Hypertensive heart and chronic kidney disease without heart failure, with stage 1 through stage 4 chronic kidney disease, or unspecified chronic kidney disease; N18.32 Chronic kidney disease, stage 3b; E78.2 Mixed hyperlipidemia; E11.42 Type 2 diabetes mellitus with diabetic polyneuropathy; E11.22 Type 2 diabetes mellitus with diabetic chronic kidney disease; F41.9 Anxiety disorder, unspecified; F32.A Depression, unspecified; M32.9 Systemic lupus erythematosus, unspecified; K21.00 Gastro-esophageal reflux disease with esophagitis, without bleeding; G47.33 Obstructive sleep apnea (adult) (pediatric); M10.9 Gout, unspecified; M06.9 Rheumatoid arthritis, unspecified; J30.9 Allergic rhinitis, unspecified; E66.9 Obesity, unspecified; Z68.42 Body mass index [BMI] 45.0-49.9, adult; Z85.6 Personal history of leukemia; Z86.711 Personal history of pulmonary embolism; Z86.718 Personal history of other venous thrombosis and embolism; Z97.5 Presence of (intrauterine) contraceptive device; Z79.899 Other long term (current) drug therapy; Z79.01 Long term (current) use of anticoagulants; Z79.811 Long term (current) use of aromatase inhibitors; Z79.4 Long term (current) use of insulin; Z79.52 Long term (current) use of systemic steroids; Z88.1 Allergy status to other antibiotic agents; Z88.2 Allergy status to sulfonamides; Z88.6 Allergy status to analgesic agent
CPT/HCPCS: 36410; 36415; 76937; 80053; 81001; 82607; 82728; 82747; 83036; 83540; 83550; 83921; 85025; 85027; 85610; 85730; 87086; 94640; 96365; 96366; 96367; 96376; 99285

== ENCOUNTER 2024-02-11 19:56 | Inpatient (IN) | payer MEDICARE ==
--- NOTE | 2024-02-11 20:39 | ED ---
General Adult HPI - General Chief complaint: Weakness Stated complaint: Weakness Time Seen by Provider: 02/11/24 19:59 Source: EMS Mode of arrival: EMS - History of Present Illness Initial comments: Dictation was produced using [employer] dictation software. please excuse any grammatical, word or spelling errors. Chief Complaint: 58-year-old morbidly obese female presents with weakness History of Present Illness: Patient 58-year-old female she has multiple comorbidities including COPD, diabetes and cancer. States that she has been feeling weak for the last couple days she lives at home. Patient is minimally ambulatory. She was so weak that she was unable to stand and pivot which she normally can do. She states that she has total body pain. Denies any nausea vomiting. No fever chills or night sweats. No cough or runny nose or sore throat. Patient denies abdominal pain or diarrhea. The ROS documented in this emergency department record has been reviewed and co nfirmed by me. Those systems with pertinent positive or negative responses have been documented in the HPI. All other systems are other negative and/or noncontributory. - Related Data Home Medications Medication Instructions Recorded Confirmed Montelukast [Singulair] 10 mg PO DAILY 01/09/17 12/24/23 allopurinoL [Zyloprim] 100 mg PO BID 01/21/22 12/24/23 Atorvastatin [Lipitor] 10 mg PO DAILY 02/15/22 12/24/23 Hydroxychloroquine Sulfate 200 mg PO BID 04/13/22 12/24/23 [Plaquenil] hydrOXYzine HCL [Atarax] 25 mg PO QID PRN 04/13/22 12/24/23 FLUoxetine HCL [PROzac] 20 mg PO DAILY 10/27/22 12/24/23 Pantoprazole [Protonix] 40 mg PO BID 10/27/22 12/24/23 Anastrozole 1 mg PO DAILY 05/13/23 12/24/23 Metoprolol Tartrate [Lopressor] 50 mg PO BID-W/MEALS 05/13/23 12/24/23 gemfibroziL [Lopid] 600 mg PO AC-BID 05/13/23 12/24/23 Ferrous Sulfate [Iron (65 MG 325 mg PO BID 10/31/23 12/24/23 Elemental)] HYDROcodone/APAP 5-325MG [[place] 1 tab PO Q4HR PRN 10/31/23 12/24/23 5-325] INSULIN ASPART (NovoLOG) [NovoLOG See Protocol SQ ACHS 10/31/23 12/24/23 (formulary)] Insulin Detemir (Levemir) [Levemir] 15 unit SQ BID 10/31/23 12/24/23 Ipratropium-Albuterol Nebulize 3 ml INHALATION RT-QID PRN 10/31/23 12/24/23 [Duoneb 0.5 mg-3 mg/3 ml Soln] Nystatin 100,000 Unit/gm Powd 1 applic TOPICAL TID 10/31/23 12/24/23 [Mycostatin Powder] Ondansetron [Zofran] 4 mg PO Q8H PRN 10/31/23 12/24/23 guaiFENesin SYRUP 100MG/5ML 200 mg PO Q6H PRN 10/31/23 12/24/23 [Robitussin] Docusate [Colace] 100 mg PO BID PRN 12/24/23 12/24/23 Furosemide [Lasix] 80 mg PO DAILY 12/24/23 12/24/23 Robitussin 12 Hour Cough 30mg/5ml 10 ml PO Q12H PRN 12/24/23 12/24/23 Sennosides [Senokot] 8.6 mg PO HS PRN 12/24/23 12/24/23 predniSONE 10 mg PO DAILY 12/24/23 12/24/23 Previous Rx's Medication Instructions Recorded Acetaminophen Tab [Tylenol] 650 mg PO Q6HR PRN tab 10/09/23 INSULIN ASPART (NovoLOG) [NovoLOG 8 unit SQ AC-TID each 10/09/23 (formulary)] Apixaban [Eliquis] 2.5 mg PO BID #60 tab 12/27/23 Cefuroxime [Ceftin] 250 mg PO BID 7 Days #14 tab 12/27/23 Allergies Allergy/AdvReac Type Severity Reaction Status Date / Time ciprofloxacin [From Cipro] Allergy Swelling Verified 02/11/24 20:04 diphenhydramine Allergy Swelling Verified 02/11/24 20:04 [From Benadryl] Influenza Virus Vaccines Allergy Anaphylaxis Verified 02/11/24 20:04 iodine Allergy Swelling Verified 02/11/24 20:04 propoxyphene Allergy Swelling Verified 02/11/24 20:04 [From Darvocet-N] red dye Allergy Swelling Verified 02/11/24 20:04 Sulfa (Sulfonamide Allergy Anaphylaxis, Verified 02/11/24 20:04 Antibiotics) heart rate up sulfacetamide Allergy Swelling Verified 02/11/24 20:04 [From Sulfamide] yellow dye Allergy Swelling Verified 02/11/24 20:04 Review of Systems ROS Statement: Those systems with pertinent positive or pertinent negative responses have been documented in the HPI. ROS Other: All systems not noted in ROS Statement are negative. Past Medical History Past Medical History: Cancer, COPD, Diabetes Mellitus, Deep Vein Thrombosis (DVT), Hypertension, Renal Disease, Rheumatoid Arthritis (RA), Thyroid Disorder Additional Past Medical History / Comment(s): O2 @ 4L. SLE LUPUS. STAGE 3 KIDNEY DISEASE. Leukemia, GRAVES DZ , kidney stones, gout, Uterine cancer (no surgery, radiation only) History of Any Multi-Drug Resistant Organisms: Other MDRO Past Surgical History: Cholecystectomy Additional Past Surgical History / Comment(s): BILATERAL ARTHROSCOPY KNEES. D & C (MISCARRIAGES). Past Anesthesia/Blood Transfusion Reactions: No Reported Reaction Past Psychological History: Anxiety Smoking Status: Never smoker Past Alcohol Use History: None Reported Past Drug Use History: None Reported - Past Family History Mother Family Medical History: Congestive Heart Failure (CHF), Diabetes Mellitus Father Family Medical History: Congestive Heart Failure (CHF), Dialysis, Hypertension General Exam - General Exam Comments Initial Comments: PHYSICAL EXAM: General Impression: Alert and oriented x3, not in acute distress HEENT: Normocephalic atraumatic, extra-ocular movements intact, pupils equal and reactive to light bilaterally, mucous membranes. Cardiovascular: Heart regular rate and rhythm Chest: Able to complete full sentences, no retractions, no tachypnea Abdomen: abdomen soft, non-tender, non-distended, no organomegaly Musculoskeletal: Pulses present and equal in all extremities, no peripheral edema Motor: no focal deficits noted Neurological: CN II-XII grossly intact, no focal motor or sensory deficits noted Skin: Intact with no visualized rashes Psych: Normal affect and mood Course Vital Signs 02/11/24 02/11/24 19:58 22:34 Temperature 97.8 F Pulse Rate 77 78 Respiratory 16 18 Rate Blood Pressure 105/68 92/67 O2 Sat by Pulse 96 98 Oximetry EKG Findings - EKG Comments: EKG Findings:: My EKG interpretation: Ventricular rate 77, sinus rhythm,. 170, QRS 98, QTc 456. No AL prolongation, no QTC prolongation, no ST or T-wave changes noted. Overall, this EKG is unremarkable Medical Decision Making - Medical Decision Making Was pt. sent in by a medical professional or institution (, PA, GARMENT SUPERVISOR, urgent care, hospital, or fci...) When possible be specific @ -No Did you speak to anyone other than the patient for history (EMS, parent, family, police, friend...)? What history was obtained from this source @ -No Did you review nursing and triage notes (agree or disagree)? Why? @ -I reviewed and agree with nursing and triage notes Were old charts reviewed (outside hosp., previous admission, EMS record, old EKG, old radiological studies, urgent care reports/EKG's, fci records)? Report findings @ -No old charts were reviewed Differential Diagnosis (chest pain, altered mental status, abdominal pain women, abdominal pain men, vaginal bleeding, musculoskeletal, weakness, fever, dyspnea, syncope, headache, dizziness, GI bleed, back pain, seizure, CVA, palpatations, mental health)? @ -Differential Weakness: Hypoglycemia, shock, sepsis, hyponatremia, anemia, infection, [place], ETOH, adverse medicine reaction, overdose, stroke, this is not meant to be an all-inclusive list. EKG interpreted by me (3pts min.). @ -See above X-rays interpreted by me (1pt min.). @ -Chest x-ray shows no acute processes CT interpreted by me (1pt min.). @ -None done U/S interpreted by me (1pt. min.). @ -None done What testing was considered but not performed or refused? (CT, X-rays, U/S, labs)? Why? @ -None What meds were considered but not given or refused? Why? @ -None Was smoking cessation discussed for >3mins.? @ -No Were there social determinants of health that impacted care today? How? (Homelessness, low income, unemployed, alcoholism, drug addiction, tra nsportation, low edu. Level, literacy, decrease access to med. care, retirement, rehab)? @ -Poor social situation Was there de-escalation of care discussed even if they declined (Discuss DNR or withdrawal of care, Hospice)? DNR status @ -No What co-morbidities impacted this encounter? (DM, HTN, Smoking, COPD, CAD, Cancer, CVA, ARF, Chemo, Hep., AIDS, mental health diagnosis, sleep apnea, morbid obesity)? @ -Morbid obesity, endometrial cancer Was patient admitted / discharged? Hospital course, mention meds given and route, prescriptions, significant lab abnormalities, going to OR and other pertinent info. @ -58-year-old female presents to the emergency department for acute weakness. Vital signs upon arrival are within acceptable limits. Patient morbidly obese has poor social situation. Laboratory evaluation obtained. Mild nongap acidosis likely secondary to dehydration. Elevated renal function creatinine 3.09 which is above patient's baseline of recently. Viral testing negative. X- ray shows no acute processes. Patient given IV fluids. She has poor social situation and no good disposition options. Patient to be admitted. Case discussed with Dr. Ramirez who is agreeable with admission Did you discuss the management of the patient with other professionals (professionals i.e. , PA, GARMENT SUPERVISOR, lab, RT, psych nurse, social sciences department chair, customer liaison, teacher, transport corps officer, case technician)? Give summary @ -Case discussed with hospitalist for admission Was critical care preformed (if so, how long)? @ -No Undiagnosed new problem with uncertain prognosis? @ -No Drug Therapy requiring intensive monitoring for toxicity (Heparin, Nitro, Insulin, Cardizem)? @ -No Were any procedures done? @ -No Diagnosis/symptom? Acute, or Chronic, or Acute on Chronic? Uncomplicated (without systemic symptoms) or Complicated (systemic symptoms)? @ -Gravely disabled Side effects of treatment? @ -No Exacerbation, Progression, or Severe Exacerbation? @ -No Poses a threat to life or bodily function? How? (Chest pain, [place], [place], pneumonia, PE, COPD, DKA, ARF, appy, cholecystitis, CVA, Diverticulitis, Homicidal, Suicidal, threat to staff... and all critical care pts) @ -yes - Lab Data Result diagrams: 02/11/24 20:23 02/11/24 20:23 Lab Results 10/30/24 10/30/24 10/30/24 Range/Units 20:23 20:23 20:23 WBC 7.8 (3.8-10.6) k/uL RBC 3.70 L (3.80-5.40) m/uL Hgb 10.1 L (11.4-16.0) gm/dL Hct 34.0 (34.0-46.0) % MCV 91.9 (80.0-100.0) fL MCH 27.3 (25.0-35.0) pg MCHC 29.7 L (31.0-37.0) g/dL RDW 14.8 (11.5-15.5) % Plt Count 259 (150-450) k/uL MPV 8.5 Neutrophils % 67 % Lymphocytes % 20 % Monocytes % 6 % Eosinophils % 6 % Basophils % 1 % Neutrophils # 5.2 (1.3-7.7) k/uL Lymphocytes # 1.5 (1.0-4.8) k/uL Monocytes # 0.5 (0-1.0) k/uL Eosinophils # 0.4 (0-0.7) k/uL Basophils # 0.0 (0-0.2) k/uL Hypochromasia Marked PT 11.7 (10.0-12.5) sec INR 1.1 (<1.2) APTT 25.3 (22.0-30.0) sec Sodium 141 (137-145) mmol/L Potassium 5.9 H (3.5-5.1) mmol/L Chloride 112 H (98-107) mmol/L Carbon Dioxide 16 L (22-30) mmol/L Anion Gap 13 mmol/L BUN 75 H (7-17) mg/dL Creatinine 3.09 H (0.52-1.04) mg/dL Est GFR (CKD-EPI)AfAm 18 (>60 ml/min/1.73 sqM) Est GFR (CKD-EPI)NonAf 16 (>60 ml/min/1.73 sqM) Glucose 209 H (74-99) mg/dL Plasma Lactic Acid Efrain (0.7-2.0) mmol/L Calcium 9.1 (8.4-10.2) mg/dL Magnesium 1.9 (1.6-2.3) mg/dL Total Bilirubin 0.5 (0.2-1.3) mg/dL AST 15 (14-36) U/L ALT 13 (4-34) U/L Alkaline Phosphatase 174 H (38-126) U/L Troponin I (0.000-0.034) ng/mL Total Protein 7.7 (6.3-8.2) g/dL Albumin 4.5 (3.5-5.0) g/dL Influenza Type A (PCR) (Not Detectd) Influenza Type B (PCR) (Not Detectd) RSV (PCR) (Not Detectd) SARS-CoV-2 (PCR) (Not Detectd) 02/11/24 02/11/24 02/11/24 Range/Units 20:23 20:23 20:47 WBC (3.8-10.6) k/uL RBC (3.80-5.40) m/uL Hgb (11.4-16.0) gm/dL Hct (34.0-46.0) % MCV (80.0-100.0) fL MCH (25.0-35.0) pg MCHC (31.0-37.0) g/dL RDW (11.5-15.5) % Plt Count (150-450) k/uL MPV Neutrophils % % Lymphocytes % % Monocytes % % Eosinophils % % Basophils % % Neutrophils # (1.3-7.7) k/uL Lymphocytes # (1.0-4.8) k/uL Monocytes # (0-1.0) k/uL Eosinophils # (0-0.7) k/uL Basophils # (0-0.2) k/uL Hypochromasia PT (10.0-12.5) sec INR (<1.2) APTT (22.0-30.0) sec Sodium (137-145) mmol/L Potassium (3.5-5.1) mmol/L Chloride (98-107) mmol/L Carbon Dioxide (22-30) mmol/L Anion Gap mmol/L BUN (7-17) mg/dL Creatinine (0.52-1.04) mg/dL Est GFR (CKD-EPI)AfAm (>60 ml/min/1.73 sqM) Est GFR (CKD-EPI)NonAf (>60 ml/min/1.73 sqM) Glucose (74-99) mg/dL Plasma Lactic Acid Efrain 1.0 (0.7-2.0) mmol/L Calcium (8.4-10.2) mg/dL Magnesium (1.6-2.3) mg/dL Total Bilirubin (0.2-1.3) mg/dL AST (14-36) U/L ALT (4-34) U/L Alkaline Phosphatase (38-126) U/L Troponin I <0.012 (0.000-0.034) ng/mL Total Protein (6.3-8.2) g/dL Albumin (3.5-5.0) g/dL Influenza Type A (PCR) Not Detected (Not Detectd) Influenza Type B (PCR) Not Detected (Not Detectd) RSV (PCR) Not Detected (Not Detectd) SARS-CoV-2 (PCR) Not Detected (Not Detectd) Disposition Clinical Impression: Weakness Disposition: ADMITTED IP TO THIS [facility] Condition: Fair Referrals: Michael Ramirez MD [Primary Care Provider] - 1-2 days Decision Time: 22:57
[2024-02-11 20:45] LABS: Basophils % (A) 1 %; Eosinophils # (A) 0.4 k/uL (0-0.7); Eosinophils % (A) 6 %; HGB 10.1 gm/dL (11.4-16.0); Hypochromasia Marked; Lymphocytes # (A) 1.5 k/uL (1.0-4.8); Lymphocytes % (A) 20 %; MCH 27.3 pg (25.0-35.0); MCHC 29.7 g/dL (31.0-37.0); MCV 91.9 fL (80.0-100.0); Mean Platelet Volume 8.5; Monocytes # (A) 0.5 k/uL (0-1.0); Monocytes % (A) 6 %; Neutrophils # (A) 5.2 k/uL (1.3-7.7); Neutrophils % (A) 67 %; Platelet Count 259 k/uL (150-450); RDW 14.8 % (11.5-15.5); WBC 7.8 k/uL (3.8-10.6)
[2024-02-11 20:50] LABS: INR 1.1 (<1.2); Partial Thromboplastin Time 25.3 sec (22.0-30.0); Prothrombin Time 11.7 sec (10.0-12.5)
[2024-02-11 21:00] LABS: ALT 13 U/L (4-34); AST 15 U/L (14-36); African American GFR (CKD) 18 (>60 ml/min/1.73 sqM); Albumin 4.5 g/dL (3.5-5.0); Alkaline Phosphatase 174 U/L (38-126); Anion Gap 13 mmol/L; Blood Urea Nitrogen 75 mg/dL (7-17); Calcium 9.1 mg/dL (8.4-10.2); Carbon Dioxide 16 mmol/L (22-30); Chloride 112 mmol/L (98-107); Glucose 209 mg/dL (74-99); Magnesium 1.9 mg/dL (1.6-2.3); Non-African American GFR(CKD) 16 (>60 ml/min/1.73 sqM); Potassium 5.9 mmol/L (3.5-5.1); Sodium 141 mmol/L (137-145); Total Bilirubin 0.5 mg/dL (0.2-1.3); Total Protein 7.7 g/dL (6.3-8.2)
--- NOTE | 2024-02-11 21:09 | XR ---
EXAMINATION TYPE: XR chest 2V DATE OF EXAM: 02/11/2024 COMPARISON: 10/31/2023 INDICATION: Weakness TECHNIQUE: Frontal and lateral views of the chest are obtained. FINDINGS: The heart size is enlarged. The pulmonary vasculature is normal. There is poor visualization of the lateral right diaphragm. This could be related to some adjacent at electasis. This could be related to body habitus. IMPRESSION: 1. Mild right lower lobe infiltrate not excluded. Correlate for atelectasis or pneumonia. This may be technical in nature. [facility], Workstation: [facility], 02/11/2024 9:06 PM
[2024-02-11] MEDS ORDERED: NALOXONE 0.4 MG/ML 1 ML VIAL IV PRN (22:53)
[2024-02-11] MEDS ORDERED: DOCUSATE 100 MG CAP PO PRN (23:43)
[2024-02-12] MEDS: HYDROcodone/APAP 5-325MG 1 EACH TAB PO PRN (00:04)
[2024-02-12] MEDS: SODIUM CHLORIDE 0.9% 1,000 ML IV SCH (00:04)
[2024-02-12 01:22] LABS: Glucose,Whole Blood 183 mg/dL (70-110)
[2024-02-12] MEDS: ACETAMINOPHEN TAB 325 MG TAB PO PRN (02:21)
[2024-02-12] MEDS: hydrOXYzine HCL 25 MG TAB PO PRN (02:21)
[2024-02-12] MEDS: NYSTATIN 100,000 UNIT/GM POWD 15 GM TOPICAL PRN (06:23)
[2024-02-12 07:12] LABS: Glucose,Whole Blood 181 mg/dL (70-110)
[2024-02-12] MEDS: predniSONE 10 MG TAB PO SCH (10:47)
[2024-02-12] MEDS: FENOFIBRATE 160 MG TAB PO SCH (10:47)
[2024-02-12] MEDS: MONTELUKAST 10 MG TAB PO SCH (10:47)
[2024-02-12] MEDS: allopurinoL 100 MG TAB PO SCH (10:48)
[2024-02-12] MEDS: FERROUS SULFATE 325 MG TAB PO SCH (10:48)
[2024-02-12] MEDS: ATORVASTATIN 10 MG TAB PO SCH (10:48)
[2024-02-12] MEDS: FLUoxetine HCL 20 MG CAP PO SCH (10:48)
[2024-02-12] MEDS: FUROSEMIDE 80 MG TAB PO SCH (10:48)
[2024-02-12] MEDS: APIXABAN 2.5 MG TABLET PO SCH (10:48)
[2024-02-12] MEDS: PANTOPRAZOLE 40 MG TABLET PO SCH (10:49)
[2024-02-12] MEDS: ANASTROZOLE 1 MG TAB PO SCH (10:49)
[2024-02-12] MEDS: METOPROLOL TARTRATE 50 MG TAB PO SCH (10:49)
[2024-02-12] MEDS: HYDROXYCHLOROQUINE SULFATE 200 MG TAB PO SCH (10:49)
[2024-02-12 12:21] LABS: Glucose,Whole Blood 206 mg/dL (70-110)
[2024-02-12] MEDS: ONDANSETRON 4 MG TAB PO PRN (13:22)
[2024-02-12 14:33] VITALS: BMI 53.2
[2024-02-12 17:07] LABS: Glucose,Whole Blood 206 mg/dL (70-110)
[2024-02-12] MEDS: INSULIN ASPART (NovoLOG) 100 UNIT/ML VIAL SQ SCH ×2 (17:41)
--- NOTE | 2024-02-12 18:10 | P.HPIM ---
History of Present Illness H&P Date: 02/12/24 Chief Complaint: Intractable pain generalized weakness due to metastatic uterine cancer HISTORY OF PRESENT ILLNESS: This is a 58-year-old female patient of mine with past medical history of hypertension and hypertensive cardiovascular disease, mixed hyperlipidemia, diabetes mellitus type 2 insulin requiring, diabetic polyneuropathy, history of uterine cancer has been under the care of Dr. Euceda at [facility], has not seen him since May, has been in the hospital not too long ago because of significant wound to the right buttock area that she just r ecovered from not too long ago about a week ago was seen at the wound clinic, apparently patient also had a significant history of chronic kidney disease stage IIIb, history of depression, history of rheumatoid arthritis, SLE, patient presented to the emergency department at [facility] because of increased bleeding and the patient has been getting significant amount of clot, she was scared that the patient is not able to control her bleeding at this time, even though the patient have thought in the past about going into hospice and palliative care patient apparently is not interested in hospice however she is willing to go to a palliative care treatment at this point in time, because of intractable pain and an incurable metastatic uterine cancer that she had she was brought into the emergency department at [facility] yesterday because generalized weakness not able to take care of herself at home she is not able to move she is not able to get out of her bed at this point in time because of her large body habitus and because of intractable pain and shortness of breath due to her COPD, therefore the patient will require a hospital bed for pain control COPD and symptoms related to her cancer requires positioning of her body in the ways that is not feasible with ordinary bed as the patient has a bed need to be elevated greater than 30 degrees most of the time to alleviate the pain she will also require to have a bedside commode as the patient is confined to her bed in her room and unable to get out of bed to the bathroom because of significant shortness of breath due to her COPD as well as her terminal cancer. Patient apparently was admitted to the hospital because she was not safe to go home the way she was and we will consult hospice social worker as well as physical therapy to try to get the patient back to her home with palliative care team. REVIEW OF SYSTEMS: Constitutional: No documented fever, no chills, no night sweats. No weight change. No weakness, fatigue or lethargy. No daytime sleepiness. EENT: No headache. No blurred vision or double vision, no loss of vision. No loss of Hearing, no ringing in the ears, no dizziness. No nasal drainage or congestion. No epistaxis. No sore throat. Lungs: Positive for shortness of breath, no cough, no sputum production. No wheezing. Reports dyspnea with activity. Cardiovascular: No chest pain, positive for lower extremity edema. Positive for palpitations. Positive for paroxysmal nocturnal dyspnea. Positive for orthopnea. Positive for lightheadedness or dizziness. No syncopal episodes. Abdominal: Reports abdominal pain. No nausea, vomiting. No diarrhea. No constipation. No bloody or tarry stools reports loss of appetite. Genitourinary: No dysuria, increased frequency, urgency. No urinary retention.positive for uterine bleeding Musculoskeletal: No myalgias. Positive for muscle weakness, positive for gait dysfunction, positive for frequent falls. Positive for back pain. Positive for neck pain. Integumentary: No wounds, no lesions. No rash or pruritus. No unusual bruising. No change in hair or nails. Neurologic: No aphasia. No facial droop. No change in mentation. No head injury. Positive for headache. No paralysis. Positive for paresthesia. Psychiatric: positive for depressio, anxiety. No mood swings. Endocrine: positive for abnormal blood sugars. Positive for weight change. PAST MEDICAL HISTORY: Hypertension and hypertensive cardiovascular disease. Mixed hyperlipidemia. Diabetes mellitus type 2 with diabetic polyneuropathy. Chronic kidney disease stage IIIb. GERD with esophagitis. Obesity with obstructive sleep apnea. Uterine cancer possible metastatic Bilateral pulmonary emboli. Gout. History of rheumatoid arthritis. History of SLE. COPD. Allergic rhinitis. PAST SURGICAL HISTORY: Lap glory. IUD due to uterine cancer. IVC filter. Bilateral arthroscopic knee surgery Left hip ORIF 2021. SOCIAL HISTORY: Patient denies any history of smoking, she denies any history of drinking, she denies any history of drug use or abuse, she lives with her . FAMILY HISTORY: Father at age of 57 from CAD, also had a history of chronic kidney disease, mother at the age of 57 from congestive heart failure also had history of CAD and diabetes mellitus type 2, patient had a twin brother who is okay 1 brother at the age of from DC, 1 stepbrother with PAD and DVT, patient has 1 sister 46-year-old with history of DVT in her leg, PHYSICAL EXAMINATION: General: 58-year-old female laying down in bed in mild distress. HEENT: Head is atraumatic, normocephalic, pupils were equal round reactive to light and recommendation, extraocular muscle movement were intact, sclera nonicteric, conjunctivae were pale, mucous membranes of the mouth are somewhat dry. Neck: Supple, no JVP, normal carotid upstroke bilaterally, no lymphadenopathy. Chest: Decreased breath sounds at the bases, few rhonchi, no expiratory wheezes, no chest wall tenderness, no intercostal retractions. Heart: First heart sound is normal, second heart sound is normal there is systolic ejection murmur 2/6 located in the left sternal border. Abdomen: Soft, nontender, nondistended, positive bowel sounds. Extremities: There is +2 edema no calf tenderness DP +2 bilaterally. Neurologic examination: Patient is awake alert and oriented x3, cranial nerves II-12 appear grossly intact, muscle power were 4 out of 5 in upper extremities and 2 out of 5 in bilateral lower extremities, deep tendon reflexes normal bilaterally. ASSESSMENT AND PLAN: 1. Metastatic uterine cancer that is not curable at this stage with significant failure to thrive due to significant amount of pain and dyspnea due to combination of her terminal cancer as well as COPD and prior history of pulmonary embolism. Patient was seen by hospice social worker, and the patient will try to get discharged to go home with palliative care team with a bariatric bed as well as bedside commode the pediatric hospital bed for pain control and COPD and symptoms related to terminal cancer that requires positioning of the body in ways not feasible with an ordinary bed the head of the bed must be elevated at more than 30 degrees most of the time to alleviate her pain and discomfort as far as her bedside commode patient will be sent home with a commode because she is confined to her bedroom and is unable to get to her bathroom because of shortness of breath due to her COPD and pulmonary embolism along with pain from terminal cancer. 2. Acute kidney injury on chronic kidney disease stage IIIb due to acute tubular necrosis with aggressive diuresis. Discontinue furosemide, start the patient on IV fluid in the form of normal saline at 75 cc an hour, repeat CBC and CMP in the next 24 hours. 3. Hypertension and hypertensive cardiovascular disease. Continue patient on metoprolol 50 mg orally twice every day, monitor the patient blood pressure very closely. 4. Mixed hyperlipidemia. Continue patient on atorvastatin 10 mg once every day, monitor lipid panel, keep LDL 55-70. 5. Diabetes mellitus type 2. Continue Lantus 15 units twice a day along with NovoLog 8 units before each meal 3 times a day along with a sliding scale insulin. 6. History of bilateral pulmonary emboli status post IVC filter placement, continue with Eliquis. 7. History of SLE/rheumatoid arthritis continue patient on Plaquenil 200 mg orally twice every day, prednisone 10 mg orally once every day, patient is not a candidate for any DMARDs. 8. Anxiety and depressive disorder continue fluoxetine 20 mg orally once every day. 9. History of gout continue patient on allopurinol 200 mg orally once every day. 10. History of COPD. Continue patient on DuoNeb 3 mL nebulization 4 times every day, continue montelukast 10 mg orally once every day. 11. History of uterine cancer patient has been currently on anastrozole 1 mg orally once every day, she has not been seen by her oncologist Dr. Euceda since May of this year, she has an IUD in the uterus 12. GERD with esophagitis. Continue pantoprazole 40 mg orally twice every day. 13. DVT prophylaxis. Bilateral knee-high DANIAL hose continue Eliquis. 14. GI prophylaxis. Continue patient on pantoprazole 40 mg orally twice every day. 15. Observation 16. No CODE STATUS. Past Medical History Past Medical History: Cancer, COPD, Diabetes Mellitus, Deep Vein Thrombosis (DVT), Hypertension, Renal Disease, Rheumatoid Arthritis (RA), Thyroid Disorder Additional Past Medical History / Comment(s): O2 @ 4L. SLE LUPUS. STAGE 3 KIDNEY DISEASE. Leukemia, GRAVES DZ , kidney stones, gout, Uterine cancer (no surgery, radiation only) History of Any Multi-Drug Resistant Organisms: Other MDRO Past Surgical History: Cholecystectomy Additional Past Surgical History / Comment(s): BILATERAL ARTHROSCOPY KNEES. D & C (MISCARRIAGES). Past Anesthesia/Blood Transfusion Reactions: No Reported Reaction Smoking Status: Never smoker - Past Family History Mother Family Medical History: Congestive Heart Failure (CHF), Diabetes Mellitus Father Family Medical History: Congestive Heart Failure (CHF), Dialysis, Hypertension Medications and Allergies Home Medications Medication Instructions Recorded Confirmed Type Montelukast [Singulair] 10 mg PO DAILY 01/09/17 02/11/24 History allopurinoL [Zyloprim] 100 mg PO BID 01/21/22 02/11/24 History Atorvastatin [Lipitor] 10 mg PO DAILY 02/15/22 02/11/24 History Hydroxychloroquine Sulfate 200 mg PO BID 04/13/22 02/11/24 History [Plaquenil] hydrOXYzine HCL [Atarax] 25 mg PO QID PRN 04/13/22 02/11/24 History FLUoxetine HCL [PROzac] 20 mg PO DAILY 10/27/22 02/11/24 History Pantoprazole [Protonix] 40 mg PO BID 10/27/22 02/11/24 History Anastrozole 1 mg PO DAILY 05/13/23 02/11/24 History Metoprolol Tartrate [Lopressor] 50 mg PO BID-W/MEALS 05/13/23 02/11/24 History gemfibroziL [Lopid] 600 mg PO AC-BID 05/13/23 02/11/24 History Acetaminophen Tab [Tylenol] 650 mg PO Q6HR PRN tab 10/09/23 02/11/24 Rx INSULIN ASPART (NovoLOG) [NovoLOG 8 unit SQ AC-TID each 10/09/23 02/11/24 Rx (formulary)] Ferrous Sulfate [Iron (65 MG 325 mg PO BID 10/31/23 02/11/24 History Elemental)] HYDROcodone/APAP 5-325MG [Garnett 1 tab PO Q4HR PRN 10/31/23 02/11/24 History 5-325] INSULIN ASPART (NovoLOG) [NovoLOG See Protocol SQ ACHS 10/31/23 02/11/24 History (formulary)] Insulin Detemir (Levemir) [Levemir] 15 unit SQ BID 10/31/23 02/11/24 History Ipratropium-Albuterol Nebulize 3 ml INHALATION RT-QID PRN 10/31/23 02/11/24 History [Duoneb 0.5 mg-3 mg/3 ml Soln] Nystatin 100,000 Unit/gm Powd 1 applic TOPICAL TID 10/31/23 02/11/24 History [Mycostatin Powder] Ondansetron [Zofran] 4 mg PO Q8H PRN 10/31/23 02/11/24 History guaiFENesin SYRUP 100MG/5ML 200 mg PO Q6H PRN 10/31/23 02/11/24 History [Robitussin] Docusate [Colace] 100 mg PO BID PRN 12/24/23 02/11/24 History Furosemide [Lasix] 80 mg PO DAILY 12/24/23 02/11/24 History Robitussin 12 Hour Cough 30mg/5ml 10 ml PO Q12H PRN 12/24/23 02/11/24 History Sennosides [Senokot] 8.6 mg PO HS PRN 12/24/23 02/11/24 History predniSONE 10 mg PO DAILY 12/24/23 02/11/24 History Apixaban [Eliquis] 2.5 mg PO BID #60 tab 12/27/23 02/11/24 Rx Allergies Allergy/AdvReac Type Severity Reaction Status Date / Time ciprofloxacin [From Cipro] Allergy Swelling Verified 02/11/24 20:04 diphenhydramine Allergy Swelling Verified 02/11/24 20:04 [From Benadryl] Influenza Virus Vaccines Allergy Anaphylaxis Verified 02/11/24 20:04 iodine Allergy Swelling Verified 02/11/24 20:04 propoxyphene Allergy Swelling Verified 02/11/24 20:04 [From Darvocet-N] red dye Allergy Swelling Verified 02/11/24 20:04 Sulfa (Sulfonamide Allergy Anaphylaxis, Verified 02/11/24 20:04 Antibiotics) heart rate up sulfacetamide Allergy Swelling Verified 02/11/24 20:04 [From Sulfamide] yellow dye Allergy Swelling Verified 02/11/24 20:04 Physical Exam Vitals: Vital Signs Temp Pulse Pulse Resp BP BP Pulse Ox 02/12/24 12:15 97.9 F 80 18 99/64 97 02/12/24 07:06 98 F 79 18 102/63 96 02/12/24 01:42 97.8 F 78 16 99/66 94 L 02/12/24 00:11 80 18 103/66 99 02/11/24 22:34 78 18 92/67 98 02/11/24 19:58 97.8 F 77 16 105/68 96 Intake and Output 02/11/24 02/12/24 02/12/24 22:59 06:59 14:59 Other: Voiding Method Bedside Commode External Catheter # Voids 1 Weight 145.15 kg 145.15 kg Results CBC & Chem 7: 02/11/24 20:23 02/11/24 20:23 Labs: Abnormal Lab Results - Last 24 Hours (Table) 02/11/24 02/11/24 02/12/24 Range/Units 20:23 20:23 01:20 RBC 3.70 L (3.80-5.40) m/uL Hgb 10.1 L (11.4-16.0) gm/dL MCHC 29.7 L (31.0-37.0) g/dL Potassium 5.9 H (3.5-5.1) mmol/L Chloride 112 H (98-107) mmol/L Carbon Dioxide 16 L (22-30) mmol/L BUN 75 H (7-17) mg/dL Creatinine 3.09 H (0.52-1.04) mg/dL Glucose 209 H (74-99) mg/dL POC Glucose (mg/dL) 183 H (70-110) mg/dL Alkaline Phosphatase 174 H (38-126) U/L 02/12/24 02/12/24 Range/Units 07:11 12:20 RBC (3.80-5.40) m/uL Hgb (11.4-16.0) gm/dL MCHC (31.0-37.0) g/dL Potassium (3.5-5.1) mmol/L Chloride (98-107) mmol/L Carbon Dioxide (22-30) mmol/L BUN (7-17) mg/dL Creatinine (0.52-1.04) mg/dL Glucose (74-99) mg/dL POC Glucose (mg/dL) 181 H 206 H (70-110) mg/dL Alkaline Phosphatase (38-126) U/L Thrombosis Risk Factor Assmnt - Choose All That Apply Each Factor Represents 1 point: Age 41-60 years Each Risk Factor Represents 3 Points: History of DVT/PE Thrombosis Risk Factor Assessment Total Risk Factor Score: 4 Thrombosis Risk Factor Assessment Level: Moderate Risk
[2024-02-12 20:10] LABS: Glucose,Whole Blood 237 mg/dL (70-110)
[2024-02-12 21:12] LABS: Appearance,Urine Cloudy (Clear); Bacteria,Urine Many /hpf; Bilirubin,Urine Negative (Negative); Blood,Urine Moderate (Negative); Budding Yeast,Urine Few /hpf; Color,Urine Light Yellow; Glucose,Urine (UA) Negative (Negative); Ketones,Urine Negative (Negative); Leukocyte Esterase,Urine Large (Negative); Nitrite,Urine Negative (Negative); Protein,Urine 2+ (Negative); RBC,Urine 25 /hpf (0-5); Specific Gravity,Urine 1.017 (1.001-1.035); Squamous Epithelial Cell,Urine 3 /hpf (0-4); Urobilinogen,Urine <2.0 mg/dL (<2.0); WBC,Urine >182 /hpf (0-5)
[2024-02-12] MEDS: INSULIN DETEMIR (LEVEMIR) 100 UNIT/ML SYR SQ SCH (21:57)
[2024-02-13 07:32] LABS: Glucose,Whole Blood 186 mg/dL (70-110)
[2024-02-13 10:25] LABS: Basophils # (A) 0.07 X 10*3/uL (0.00-0.10); Basophils % (A) 0.8 %; Eosinophils # (A) 0.13 X 10*3/uL (0.04-0.35); Eosinophils % (A) 1.4 %; HCT 32.4 % (37.2-46.3); HGB 9.5 g/dL (12.0-15.0); Lymphocytes # (A) 1.53 X 10*3/uL (0.90-5.00); Lymphocytes % (A) 16.6 %; MCH 26.5 pg (27.0-32.0); MCHC 29.3 g/dL (32.0-37.0); MCV 90.3 FL (80.0-97.0); Mean Platelet Volume 11.3 FL (9.5-12.2); Monocytes # (A) 0.65 X 10*3/uL (0.20-1.00); NRBC Per 100 WBC 0 X 10*3/uL (0.00-0.01); Neutrophils # (A) 6.81 X 10*3/uL (1.80-7.70); Neutrophils % (A) 73.9 %; Platelet Count 271 X 10*3/uL (140-440); RBC 3.59 X 10*6/uL (4.10-5.20); RDW 14.6 % (11.5-14.5); WBC 9.22 X 10*3/uL (4.50-10.00)
[2024-02-13 11:09] LABS: ALT 13 U/L (8-44); AST 11 U/L (13-35); Albumin/Globulin Ratio 1.43 Ratio (1.60-3.17); Alkaline Phosphatase 184 U/L (41-126); BUN/Creat Ratio 21.97 Ratio (12.00-20.00); Blood Urea Nitrogen 85.7 mg/dL (9.0-27.0); Calcium 8.7 mg/dL (8.7-10.3); Carbon Dioxide 15.1 mmol/L (21.6-31.8); Chloride 109 mmol/L (96-109); Globulin 2.8 g/dL (1.6-3.3); Glucose 180 mg/dL (70-110); Potassium 6.9 mmol/L (3.5-5.5); Sodium 138 mmol/L (135-145); Total Bilirubin 0.2 mg/dL (0.3-1.2); Total Protein 6.8 g/dL (6.2-8.2)
[2024-02-13 12:22] LABS: Glucose,Whole Blood 171 mg/dL (70-110)
[2024-02-13] MEDS: SODIUM ZIRCONIUM CYCLOSILICATE 10 GM PACKET PO ONE ×2 (12:39→22:16)
[2024-02-13 17:12] LABS: Glucose,Whole Blood 150 mg/dL (70-110)
--- NOTE | 2024-02-13 17:20 | P.PN ---
Subjective Progress Note Date: 02/13/24 HISTORY OF PRESENT ILLNESS: This is a 58-year-old female patient of mine with past medical history of hyp ertension and hypertensive cardiovascular disease, mixed hyperlipidemia, diabetes mellitus type 2 insulin requiring, diabetic polyneuropathy, history of uterine cancer has been under the care of Dr. Euceda at [facility], has not seen him since May, has been in the hospital not too long ago because of significant wound to the right buttock area that she just recovered from not too long ago about a week ago was seen at the wound clinic, apparently patient also had a significant history of chronic kidney disease stage IIIb, history of depression, history of rheumatoid arthritis, SLE, patient presented to the emergency department at [facility] because of increased bleeding and the patient has been getting significant amount of clot, she was scared that the patient is not able to control her bleeding at this time, even though the patient have thought in the past about going into hospice and palliative care patient apparently is not interested in hospice however she is willing to go to a palliative care treatment at this point in time, because of intractable pain and an incurable metastatic uterine cancer that she had she was brought into the emergency department at [facility] yesterday because generalized weakness not able to take care of herself at home she is not able to move she is not able to get out of her bed at this point in time because of her large body habitus and because of intractable pain and shortness of breath due to her COPD, therefore the patient will require a hospital bed for pain control COPD and symptoms related to her cancer requires positioning of her body in the ways that is not feasible with ordinary bed as the patient has a bed need to be elevated greater than 30 degrees most of the time to alleviate the pain she will also require to have a bedside commode as the patient is confined to her bed in her room and unable to get out of bed to the bathroom because of significant shortness of breath due to her COPD as well as her terminal cancer. Patient apparently was admitted to the hospital because she was not safe to go home the way she was and we will consult social work job titles as well as physical therapy to try to get the patient back to her home with palliative care team. 02/12: Patient is laying down in bed she is about the same, she continues to have some pressure sores on the back due to laying down in bed not able to move around, she is currently has a bariatric bed, she is going to go for palliative care when she gets discharged from the hospital at this time, she did have a urinary tract infection, urine was sent for culture, started on ceftriaxone 1 g of piggyback every 24 hours, her potassium is quite elevated, did receive 1 dose of Lokelma 10 g orally x 1, repeat her potassium again this afternoon, and recheck her labs tomorrow morning, continue to work with the social work job titles, to try to make arrangement for the patient to go home hopefully early Friday. REVIEW OF SYSTEMS: Constitutional: No documented fever, no chills, no night sweats. No weight change. No weakness, fatigue or lethargy. No daytime sleepiness. EENT: No headache. No blurred vision or double vision, no loss of vision. No loss of Hearing, no ringing in the ears, no dizziness. No nasal drainage or congestion. No epistaxis. No sore throat. Lungs: Positive for shortness of breath, no cough, no sputum production. No wheezing. Reports dyspnea with activity. Cardiovascular: No chest pain, positive for lower extremity edema. Positive for palpitations. Positive for paroxysmal nocturnal dyspnea. Positive for orthopnea. Positive for lightheadedness or dizziness. No syncopal episodes. Abdominal: Reports abdominal pain. No nausea, vomiting. No diarrhea. No constipation. No bloody or tarry stools reports loss of appetite. Genitourinary: No dysuria, increased frequency, urgency. No urinary retenti on.positive for uterine bleeding Musculoskeletal: No myalgias. Positive for muscle weakness, positive for gait dysfunction, positive for frequent falls. Positive for back pain. Positive for neck pain. Integumentary: No wounds, no lesions. No rash or pruritus. No unusual bruising. No change in hair or nails. Neurologic: No aphasia. No facial droop. No change in mentation. No head injury. Positive for headache. No paralysis. Positive for paresthesia. Psychiatric: positive for depressio, anxiety. No mood swings. Endocrine: positive for abnormal blood sugars. Positive for weight change. PHYSICAL EXAMINATION: General: 58-year-old female laying down in bed in mild distress. HEENT: Head is atraumatic, normocephalic, pupils were equal round reactive to light and recommendation, extraocular muscle movement were intact, sclera nonicteric, conjunctivae were pale, mucous membranes of the mouth are somewhat dry. Neck: Supple, no JVP, normal carotid upstroke bilaterally, no lymphadenopathy. Chest: Decreased breath sounds at the bases, few rhonchi, no expiratory wheezes, no chest wall tenderness, no intercostal retractions. Heart: First heart sound is normal, second heart sound is normal there is systolic ejection murmur 2/6 located in the left sternal border. Abdomen: Soft, nontender, nondistended, positive bowel sounds. Extremities: There is +2 edema no calf tenderness DP +2 bilaterally. Neurologic examination: Patient is awake alert and oriented x3, cranial nerves II-12 appear grossly intact, muscle power were 4 out of 5 in upper extremities and 2 out of 5 in bilateral lower extremities, deep tendon reflexes normal bilaterally. ASSESSMENT AND PLAN: 1. Metastatic uterine cancer that is not curable at this stage with significant failure to thrive due to significant amount of pain and dyspnea due to combination of her terminal cancer as well as COPD and prior history of pulmonary embolism. Patient was seen by social work job titles, and the patient will try to get discharged to go home with palliative care team with a bariatric bed as well as bedside commode the pediatric hospital bed for pain control and COPD and symptoms related to terminal cancer that requires positioning of the body in ways not feasible with an ordinary bed the head of the bed must be elevated at more than 30 degrees most of the time to alleviate her pain and discomfort as far as her bedside commode patient will be sent home with a commode because she is confined to her bedroom and is unable to get to her bathroom because of shortness of breath due to her COPD and pulmonary embolism along with pain from terminal cancer. 2. Acute kidney injury on chronic kidney disease stage IIIb due to acute tubular necrosis with aggressive diuresis. Discontinue furosemide, change IV fluid to sodium bicarbonate drip at 75 cc an hour, repeat labs tomorrow morning. 3. Hyperkalemia. Patient did receive Lokelma 10 mg orally x 1, placed the patient on monitor, repeat the patient potassium 6:00 this afternoon. 4. Hypertension and hypertensive cardiovascular disease. Continue patient on metoprolol 50 mg orally twice every day, monitor the patient blood pressure very closely. 5. Mixed hyperlipidemia. Continue patient on atorvastatin 10 mg once every day, monitor lipid panel, keep LDL 55-70. 6. Diabetes mellitus type 2. Continue Lantus 15 units twice a day along with NovoLog 8 units before each meal 3 times a day along with a sliding scale insulin. 7. History of bilateral pulmonary emboli status post IVC filter placement, continue with Eliquis. 8. History of SLE/rheumatoid arthritis continue patient on Plaquenil 200 mg orally twice every day, prednisone 10 mg orally once every day, patient is not a candidate for any DMARDs. 9. Anxiety and depressive disorder continue fluoxetine 20 mg orally once every day. 10. History of gout continue patient on allopurinol 200 mg orally once every day. 11. History of COPD. Continue patient on DuoNeb 3 mL nebulization 4 times every day, continue montelukast 10 mg orally once every day. 12. History of uterine cancer patient has been currently on anastrozole 1 mg orally once every day, she has not been seen by her oncologist Dr. Euceda since May of this year, she has an IUD in the uterus 13. GERD with esophagitis. Continue pantoprazole 40 mg orally twice every day. 14. DVT prophylaxis. Bilateral knee-high DANIAL hose continue Eliquis. 15. GI prophylaxis. Continue patient on pantoprazole 40 mg orally twice every day. 16. UTI With SIRS. Urine culture, start the patient on ceftriaxone 1 g piggyback every 24 hours, monitor the patient very closely. 17. None anion gap and anion gap metabolic acidosis due to acute kidney injury change IV fluid to D5 W with 3 A of sodium bicarbonate at 75 cc an hour, repeat potassium this afternoon repeat labs tomorrow morning. 18. Overall prognosis is guarded. Objective - Vital Signs Vital signs: Vital Signs Temp 97.9 F 02/13/24 13:01 Pulse 77 02/13/24 13:01 Resp 20 02/13/24 13:01 BP 98/65 02/13/24 13:01 Pulse Ox 97 02/13/24 13:01 FiO2 Intake & Output 02/12/24 02/13/24 02/13/24 18:59 06:59 18:59 Weight 145.15 kg Other: Voiding Method Bedside Commode Diaper Diaper External Catheter External Catheter External Catheter # Voids 1 - Labs CBC & Chem 7: 02/14/24 03:30 02/14/24 03:30 Labs: Abnormal Lab Results - Last 24 Hours (Table) 10/02/12/24 02/13/24 Range/Units 20:08 20:45 06:29 RBC 3.59 L (4.10-5.20) X 10*6/uL Hgb 9.5 L (12.0-15.0) g/dL Hct 32.4 L (37.2-46.3) % MCH 26.5 L (27.0-32.0) pg MCHC 29.3 L (32.0-37.0) g/dL RDW 14.6 H (11.5-14.5) % Potassium (3.5-5.5) mmol/L Carbon Dioxide (21.6-31.8) mmol/L Anion Gap (4.00-12.00) mmol/L BUN (9.0-27.0) mg/dL Creatinine (0.6-1.5) mg/dL Est GFR (CKD-EPI) (>=60) BUN/Creatinine Ratio (12.00-20.00) Ratio Glucose (70-110) mg/dL POC Glucose (mg/dL) 237 H (70-110) mg/dL Total Bilirubin (0.3-1.2) mg/dL AST (13-35) U/L Alkaline Phosphatase (41-126) U/L Albumin/Globulin Ratio (1.60-3.17) Ratio Urine Appearance Cloudy H (Clear) Urine Protein 2+ H (Negative) Urine Blood Moderate H (Negative) Ur Leukocyte Esterase Large H (Negative) Urine RBC 25 H (0-5) /hpf Urine WBC >182 H (0-5) /hpf Urine Bacteria Many H (None) /hpf Urine Yeast (Budding) Few H (None) /hpf 02/13/24 02/13/24 02/13/24 Range/Units 06:29 07:30 12:21 RBC (4.10-5.20) X 10*6/uL Hgb (12.0-15.0) g/dL Hct (37.2-46.3) % MCH (27.0-32.0) pg MCHC (32.0-37.0) g/dL RDW (11.5-14.5) % Potassium 6.9 A* (3.5-5.5) mmol/L Carbon Dioxide 15.1 L (21.6-31.8) mmol/L Anion Gap 13.90 H (4.00-12.00) mmol/L BUN 85.7 H (9.0-27.0) mg/dL Creatinine 3.9 H (0.6-1.5) mg/dL Est GFR (CKD-EPI) 13 L (>=60) BUN/Creatinine Ratio 21.97 H (12.00-20.00) Ratio Glucose 180 H (70-110) mg/dL POC Glucose (mg/dL) 186 H 171 H (70-110) mg/dL Total Bilirubin 0.2 L (0.3-1.2) mg/dL AST 11 L (13-35) U/L Alkaline Phosphatase 184 H (41-126) U/L Albumin/Globulin Ratio 1.43 L (1.60-3.17) Ratio Urine Appearance (Clear) Urine Protein (Negative) Urine Blood (Negative) Ur Leukocyte Esterase (Negative) Urine RBC (0-5) /hpf Urine WBC (0-5) /hpf Urine Bacteria (None) /hpf Urine Yeast (Budding) (None) /hpf 02/13/24 Range/Units 17:11 RBC (4.10-5.20) X 10*6/uL Hgb (12.0-15.0) g/dL Hct (37.2-46.3) % MCH (27.0-32.0) pg MCHC (32.0-37.0) g/dL RDW (11.5-14.5) % Potassium (3.5-5.5) mmol/L Carbon Dioxide (21.6-31.8) mmol/L Anion Gap (4.00-12.00) mmol/L BUN (9.0-27.0) mg/dL Creatinine (0.6-1.5) mg/dL Est GFR (CKD-EPI) (>=60) BUN/Creatinine Ratio (12.00-20.00) Ratio Glucose (70-110) mg/dL POC Glucose (mg/dL) 150 H (70-110) mg/dL Total Bilirubin (0.3-1.2) mg/dL AST (13-35) U/L Alkaline Phosphatase (41-126) U/L Albumin/Globulin Ratio (1.60-3.17) Ratio Urine Appearance (Clear) Urine Protein (Negative) Urine Blood (Negative) Ur Leukocyte Esterase (Negative) Urine RBC (0-5) /hpf Urine WBC (0-5) /hpf Urine Bacteria (None) /hpf Urine Yeast (Budding) (None) /hpf Microbiology - Last 24 Hours (Table) 02/11/24 22:10 Blood Culture - Preliminary Blood
[2024-02-13] MEDS: DEXTROSE 5% IN WATER 1,000 ML with SODIUM BICARB (1 MEQ/ML) 150 ML IV SCH (18:05)
[2024-02-13] MEDS: polyethylene glycoL 3350 17 GM POWD.PACK PO SCH (18:05)
[2024-02-13 20:15] LABS: Glucose,Whole Blood 146 mg/dL (70-110)
--- NOTE | 2024-02-13 20:28 | US ---
EXAMINATION TYPE: US kidneys/renal and bladder DATE OF EXAM: 02/13/2024 COMPARISON: CT CLINICAL INDICATION: Female, 58 years old with history of JOAO; JOAO TECHNIQUE: Grayscale imaging of the bilateral kidneys and urinary bladder: FINDINGS: EXAM MEASUREMENTS: Right Kidney: 9.4 x 4.9 x 4.6 cm Left kidney is unable to be measured. Right Kidney: No evidence of hydro, limited views due to morbid obesity, questionable echogenic focus at mid= 0.7 cm Left Kidney: Unable to visualize- due to pt morbid obesity and severe edema to left side of abdomen Bladder: Pt has cath in place There is no evidence for hydronephrosis at this point in time. No nephrolithiasis is seen. No karley s are identified. The urinary bladder is anechoic. IMPRESSION: 1. Limited evaluation due to patient body habitus. 2. No evidence for obstructive uropathy of the right kidney. 3. Right renal nonobstructing calculus suggested. 4. Nonvisualization of the left kidney. [facility], , 02/13/2024 8:26 PM
[2024-02-14 07:53] LABS: Glucose,Whole Blood 175 mg/dL (70-110)
[2024-02-14 09:53] LABS: ALT 13 U/L (8-44); AST 18 U/L (13-35); Albumin 3.6 g/dL (3.8-4.9); Albumin/Globulin Ratio 1.44 Ratio (1.60-3.17); Alkaline Phosphatase 152 U/L (41-126); BUN/Creat Ratio 23.92 Ratio (12.00-20.00); Blood Urea Nitrogen 95.7 mg/dL (9.0-27.0); Calcium 8.3 mg/dL (8.7-10.3); Carbon Dioxide 15.2 mmol/L (21.6-31.8); Chloride 110 mmol/L (96-109); Globulin 2.5 g/dL (1.6-3.3); Glucose 174 mg/dL (70-110); Potassium 6.1 mmol/L (3.5-5.5); Sodium 138 mmol/L (135-145); Total Bilirubin <0.2 mg/dL (0.3-1.2); Total Protein 6.1 g/dL (6.2-8.2)
[2024-02-14] MEDS: DEXTROSE 5% IN WATER 1,000 ML with SODIUM BICARB (1 MEQ/ML) 150 ML IV SCH (10:24)
[2024-02-14 10:36] LABS: Basophils # (A) 0.05 X 10*3/uL (0.00-0.10); Basophils % (A) 0.6 %; Eosinophils # (A) 0.19 X 10*3/uL (0.04-0.35); Eosinophils % (A) 2.2 %; HCT 31.4 % (37.2-46.3); HGB 9.2 g/dL (12.0-15.0); Lymphocytes # (A) 1.51 X 10*3/uL (0.90-5.00); Lymphocytes % (A) 17.8 %; MCH 26.9 pg (27.0-32.0); MCHC 29.3 g/dL (32.0-37.0); MCV 91.8 FL (80.0-97.0); Monocytes # (A) 0.58 X 10*3/uL (0.20-1.00); Monocytes % (A) 6.8 %; NRBC Per 100 WBC 0 X 10*3/uL (0.00-0.01); Neutrophils # (A) 6.13 X 10*3/uL (1.80-7.70); Neutrophils % (A) 72.1 %; Platelet Count 196 X 10*3/uL (140-440); RBC 3.42 X 10*6/uL (4.10-5.20); RBC Morphology Normal (Normal); RDW 14.6 % (11.5-14.5)
[2024-02-14] MEDS: SODIUM ZIRCONIUM CYCLOSILICATE 10 GM PACKET PO SCH (11:36)
[2024-02-14 12:15] LABS: Glucose,Whole Blood 200 mg/dL (70-110)
--- NOTE | 2024-02-14 12:15 | P.NPCON ---
History of Present Illness - Reason for Consult Consult date: 02/14/24 - Chief Complaint Weakness - History of Present Illness This is a 58-year-old female brought into the emergency department at [facility] yesterday because generalized weakness not able to take care of herself at home. Has advanced incurable uterine cancer. Per notes she is not interested in pursuing hospice yet but interested in starting palliative care services at home. She feels swollen and having leg pain but thinks her bloating is improving. Aquino was place over night due to difficulties empty bladder. Breath has been stable but conitneus to feel weak. No other complaints at this time. patient is awake, comfortable, no acute distress. Alert oriented x 3 Examination lower extremity shows trace edema NURSING ATTENDANT exam grossly intact Review of Systems Constitutional: Reports as per HPI Past Medical History Past Medical History: Cancer, COPD, Diabetes Mellitus, Deep Vein Thrombosis (DVT), Hypertension, Renal Disease, Rheumatoid Arthritis (RA), Thyroid Disorder Additional Past Medical History / Comment(s): O2 @ 4L. SLE LUPUS. STAGE 3 KIDNEY DISEASE. Leukemia, GRAVES DZ , kidney stones, gout, Uterine cancer (no surgery, radiation only) History of Any Multi-Drug Resistant Organisms: Other MDRO Past Surgical History: Cholecystectomy Additional Past Surgical History / Comment(s): BILATERAL ARTHROSCOPY KNEES. D & C (MISCARRIAGES). Past Anesthesia/Blood Transfusion Reactions: No Reported Reaction Smoking Status: Never smoker - Past Family History Mother Family Medical History: Congestive Heart Failure (CHF), Diabetes Mellitus Father Family Medical History: Congestive Heart Failure (CHF), Dialysis, Hypertension Medications and Allergies Home Medications Medication Instructions Recorded Confirmed Type Montelukast [Singulair] 10 mg PO DAILY 01/09/17 02/11/24 History allopurinoL [Zyloprim] 100 mg PO BID 01/21/22 02/11/24 History Atorvastatin [Lipitor] 10 mg PO DAILY 02/15/22 02/11/24 History Hydroxychloroquine Sulfate 200 mg PO BID 04/13/22 02/11/24 History [Plaquenil] hydrOXYzine HCL [Atarax] 25 mg PO QID PRN 04/13/22 02/11/24 History FLUoxetine HCL [PROzac] 20 mg PO DAILY 10/27/22 02/11/24 History Pantoprazole [Protonix] 40 mg PO BID 10/27/22 02/11/24 History Anastrozole 1 mg PO DAILY 05/13/23 02/11/24 History Metoprolol Tartrate [Lopressor] 50 mg PO BID-W/MEALS 05/13/23 02/11/24 History gemfibroziL [Lopid] 600 mg PO AC-BID 05/13/23 02/11/24 History Acetaminophen Tab [Tylenol] 650 mg PO Q6HR PRN tab 10/09/23 02/11/24 Rx INSULIN ASPART (NovoLOG) [NovoLOG 8 unit SQ AC-TID each 10/09/23 02/11/24 Rx (formulary)] Ferrous Sulfate [Iron (65 MG 325 mg PO BID 10/31/23 02/11/24 History Elemental)] HYDROcodone/APAP 5-325MG [[place] 1 tab PO Q4HR PRN 10/31/23 02/11/24 History 5-325] INSULIN ASPART (NovoLOG) [NovoLOG See Protocol SQ ACHS 10/31/23 02/11/24 History (formulary)] Insulin Detemir (Levemir) [Levemir] 15 unit SQ BID 10/31/23 02/11/24 History Ipratropium-Albuterol Nebulize 3 ml INHALATION RT-QID PRN 10/31/23 02/11/24 History [Duoneb 0.5 mg-3 mg/3 ml Soln] Nystatin 100,000 Unit/gm Powd 1 applic TOPICAL TID 10/31/23 02/11/24 History [Mycostatin Powder] Ondansetron [Zofran] 4 mg PO Q8H PRN 10/31/23 02/11/24 History guaiFENesin SYRUP 100MG/5ML 200 mg PO Q6H PRN 10/31/23 02/11/24 History [Robitussin] Docusate [Colace] 100 mg PO BID PRN 12/24/23 02/11/24 History Furosemide [Lasix] 80 mg PO DAILY 12/24/23 02/11/24 History Robitussin 12 Hour Cough 30mg/5ml 10 ml PO Q12H PRN 12/24/23 02/11/24 History Sennosides [Senokot] 8.6 mg PO HS PRN 12/24/23 02/11/24 History predniSONE 10 mg PO DAILY 12/24/23 02/11/24 History Apixaban [Eliquis] 2.5 mg PO BID #60 tab 12/27/23 02/11/24 Rx Allergies Allergy/AdvReac Type Severity Reaction Status Date / Time ciprofloxacin [From Cipro] Allergy Swelling Verified 02/11/24 20:04 diphenhydramine Allergy Swelling Verified 02/11/24 20:04 [From Benadryl] Influenza Virus Vaccines Allergy Anaphylaxis Verified 02/11/24 20:04 iodine Allergy Swelling Verified 02/11/24 20:04 propoxyphene Allergy Swelling Verified 02/11/24 20:04 [From Darvocet-N] red dye Allergy Swelling Verified 02/11/24 20:04 Sulfa (Sulfonamide Allergy Anaphylaxis, Verified 02/11/24 20:04 Antibiotics) heart rate up sulfacetamide Allergy Swelling Verified 02/11/24 20:04 [From Sulfamide] yellow dye Allergy Swelling Verified 02/11/24 20:04 Physical Exam Vitals: Vital Signs Temp Pulse Resp BP Pulse Ox 02/14/24 07:50 98.3 F 71 16 100/66 98 02/14/24 01:27 98.6 F 74 18 107/68 98 02/13/24 19:28 97.6 F 76 20 120/72 93 L 02/13/24 13:01 97.9 F 77 20 98/65 97 Intake and Output 02/13/24 02/14/24 02/14/24 22:59 06:59 14:59 Intake Total 1290 Output Total 500 900 Balance 790 -900 Intake: Oral 1290 Output: Urine 500 900 Uretheral (Aquino) 500 Other: Voiding Method Indwelling Catheter Results - Lab Results Most recent lab results Calcium 8.3 mg/dL (8.7-10.3) L 02/14/24 03:30 Magnesium 1.9 mg/dL (1.6-2.3) 02/11/24 20:23 02/14/24 03:30 02/14/24 03:30 Assessment and Plan Assessment: 1. Acute kidney injury, nonoliguric ATN possibly related to diuresis and urinary retention. Creatinine 4.0 mg/dL. No hydronephrosis, left kidney not visualized. 2. Hyperkalemia associated with acute kidney injury 3. Non-gap metabolic acidosis associated with acute kidney injury 4. Endometrial cancer with no metastases noted on CT chest, being followed by oncology. Incurable. 5. Chronic kidney disease NKF stage III with baseline creatinine at 1.5-2.0 mg/dL 6. Metabolic acidosis related to JOAO Plan: Started on bicarb drip. Will schedule Lokelma 10g BID Good urine output, maintain Aquino for now. Potassium should improve with bicarb, Aquino, Lokelma. Home palliative care planning. Not a candidate for dialysis given advanced cancer.
--- NOTE | 2024-02-14 15:54 | P.PN ---
Subjective Progress Note Date: 02/14/24 HISTORY OF PRESENT ILLNESS: This is a 58-year-old female patient of mine with past medical history of hyp ertension and hypertensive cardiovascular disease, mixed hyperlipidemia, diabetes mellitus type 2 insulin requiring, diabetic polyneuropathy, history of uterine cancer has been under the care of Dr. Euceda at [facility], has not seen him since May, has been in the hospital not too long ago because of significant wound to the right buttock area that she just recovered from not too long ago about a week ago was seen at the wound clinic, apparently patient also had a significant history of chronic kidney disease stage IIIb, history of depression, history of rheumatoid arthritis, SLE, patient presented to the emergency department at [facility] because of increased bleeding and the patient has been getting significant amount of clot, she was scared that the patient is not able to control her bleeding at this time, even though the patient have thought in the past about going into hospice and palliative care patient apparently is not interested in hospice however she is willing to go to a palliative care treatment at this point in time, because of intractable pain and an incurable metastatic uterine cancer that she had she was brought into the emergency department at [facility] yesterday because generalized weakness not able to take care of herself at home she is not able to move she is not able to get out of her bed at this point in time because of her large body habitus and because of intractable pain and shortness of breath due to her COPD, therefore the patient will require a hospital bed for pain control COPD and symptoms related to her cancer requires positioning of her body in the ways that is not feasible with ordinary bed as the patient has a bed need to be elevated greater than 30 degrees most of the time to alleviate the pain she will also require to have a bedside commode as the patient is confined to her bed in her room and unable to get out of bed to the bathroom because of significant shortness of breath due to her COPD as well as her terminal cancer. Patient apparently was admitted to the hospital because she was not safe to go home the way she was and we will consult social service agency director as well as physical therapy to try to get the patient back to her home with palliative care team. 02/12: Patient is laying down in bed she is about the same, she continues to have some pressure sores on the back due to laying down in bed not able to move around, she is currently has a bariatric bed, she is going to go for palliative care when she gets discharged from the hospital at this time, she did have a urinary tract infection, urine was sent for culture, started on ceftriaxone 1 g of piggyback every 24 hours, her potassium is quite elevated, did receive 1 dose of Lokelma 10 g orally x 1, repeat her potassium again this afternoon, and recheck her labs tomorrow morning, continue to work with the social service agency director, to try to make arrangement for the patient to go home hopefully early Friday. 02/13: Patient is sitting up in bed in no apparent distress, she is feeling better, she continues to be on oxygen, she denies any chest pain, she is somewhat short of breath, she has no abdominal pain, she did have a bowel movement, she was seen earlier by nephrology, she has been maintained on sodium bicarbonate drip at 100 cc an hour, monitor input and output and daily weight, ultrasound of the kidney did not show evidence of acute obstruction, could not locate the left kidney, we will continue current treatment plan, her potassium is lower today, we will repeat her labs tomorrow morning, the plan is for the patient to be transferred home on Friday with palliative care. REVIEW OF SYSTEMS: Constitutional: No documented fever, no chills, no night sweats. No weight change. No weakness, fatigue or lethargy. No daytime sleepiness. EENT: No headache. No blurred vision or double vision, no loss of vision. No loss of Hearing, no ringing in the ears, no dizziness. No nasal drainage or congestion. No epistaxis. No sore throat. Lungs: Positive for shortness of breath, no cough, no sputum production. No wheezing. Reports dyspnea with activity. Cardiovascular: No chest pain, positive for lower extremity edema. Positive for palpitations. Positive for paroxysmal nocturnal dyspnea. Positive for orthopnea. Positive for lightheadedness or dizziness. No syncopal episodes. Abdominal: Reports abdominal pain. No nausea, vomiting. No diarrhea. No constipation. No bloody or tarry stools reports loss of appetite. Genitourinary: No dysuria, increased frequency, urgency. No urinary retention.positive for uterine bleeding Musculoskeletal: No myalgias. Positive for muscle weakness, positive for gait dysfunction, positive for frequent falls. Positive for back pain. Positive for neck pain. Integumentary: No wounds, no lesions. No rash or pruritus. No unusual bruising. No change in hair or nails. Neurologic: No aphasia. No facial droop. No change in mentation. No head injury. Positive for headache. No paralysis. Positive for paresthesia. Psychiatric: positive for depressio, anxiety. No mood swings. Endocrine: positive for abnormal blood sugars. Positive for weight change. PHYSICAL EXAMINATION: General: 58-year-old female laying down in bed in mild distress. HEENT: Head is atraumatic, normocephalic, pupils were equal round reactive to light and recommendation, extraocular muscle movement were intact, sclera nonicteric, conjunctivae were pale, mucous membranes of the mouth are somewhat dry. Neck: Supple, no JVP, normal carotid upstroke bilaterally, no lymphadenopathy. Chest: Decreased breath sounds at the bases, few rhonchi, no expiratory wheezes, no chest wall tenderness, no intercostal retractions. Heart: First heart sound is normal, second heart sound is normal there is systolic ejection murmur 2/6 located in the left sternal border. Abdomen: Soft, nontender, nondistended, positive bowel sounds. Extremities: There is +2 edema no calf tenderness DP +2 bilaterally. Neurologic examination: Patient is awake alert and oriented x3, cranial nerves II-12 appear grossly intact, muscle power were 4 out of 5 in upper extremities and 2 out of 5 in bilateral lower extremities, deep tendon reflexes normal bilaterally. ASSESSMENT AND PLAN: 1. Metastatic uterine cancer that is not curable at this stage with significant failure to thrive due to significant amount of pain and dyspnea due to combination of her terminal cancer as well as COPD and prior history of pulmonary embolism. Patient was seen by social service agency director, and the patient will try to get discharged to go home with palliative care team with a bariatric bed as well as bedside commode the pediatric hospital bed for pain control and COPD and symptoms related to terminal cancer that requires positioning of the body in ways not feasible with an ordinary bed the head of the bed must be elevated at more than 30 degrees most of the time to alleviate her pain and discomfort as far as her bedside commode patient will be sent home with a commode because she is confined to her bedroom and is unable to get to her bathroom because of shortness of breath due to her COPD and pulmonary embolism along with pain from terminal cancer. 2. Acute kidney injury on chronic kidney disease stage IIIb due to acute tubular necrosis with aggressive diuresis along with anion gap metabolic acidosis and hyperkalemia. Continue sodium bicarbonate drip at 100 cc an hour, patient was seen earlier by nephrology, scheduled Lokelma 10 g orally twice every day, monitor the patient potassium this afternoon and repeat labs tomorrow morning, patient is not a candidate for hemodialysis due to her advanced cancer. 3. Hyperkalemia. Patient did receive Lokelma 10 gram orally twice every day and we will repeat potassium this afternoon. 4. Hypertension and hypertensive cardiovascular disease. Continue patient on metoprolol 50 mg orally twice every day, monitor the patient blood pressure very closely. 5. Mixed hyperlipidemia. Continue patient on atorvastatin 10 mg once every day, monitor lipid panel, keep LDL 55-70. 6. Diabetes mellitus type 2. Continue Lantus 15 units twice a day along with NovoLog 8 units before each meal 3 times a day along with a sliding scale insulin. 7. History of bilateral pulmonary emboli status post IVC filter placement, continue with Eliquis. 8. History of SLE/rheumatoid arthritis continue patient on Plaquenil 200 mg orally twice every day, prednisone 10 mg orally once every day, patient is not a candidate for any DMARDs. 9. Anxiety and depressive disorder continue fluoxetine 20 mg orally once every day. 10. History of gout continue patient on allopurinol 200 mg orally once every day. 11. History of COPD. Continue patient on DuoNeb 3 mL nebulization 4 times every day, continue montelukast 10 mg orally once every day. 12. History of uterine cancer patient has been currently on anastrozole 1 mg orally once every day, she has not been seen by her oncologist Dr. Euceda since May of this year, she has an IUD in the uterus 13. GERD with esophagitis. Continue pantoprazole 40 mg orally twice every day. 14. DVT prophylaxis. Bilateral knee-high DANIAL hose continue Eliquis. 15. GI prophylaxis. Continue patient on pantoprazole 40 mg orally twice every day. 16. Gram-negative UTI with SIRS. Urine culture, start the patient on ceftriaxone 1 g piggyback every 24 hours, monitor the patient very closely. 17. None anion gap and anion gap metabolic acidosis due to acute kidney injury on chronic kidney disease stage IIIb. Continue patient on sodium bicarbonate drip, nephrology consultation appreciated. 18. Overall prognosis is guarded. 19. Palliative care on Friday. Objective - Vital Signs Vital signs: Vital Signs Temp 98.6 F 02/14/24 01:27 Pulse 74 02/14/24 01:27 Resp 18 02/14/24 01:27 BP 107/68 02/14/24 01:27 Pulse Ox 98 02/14/24 01:27 FiO2 Intake & Output 02/13/24 02/13/24 02/14/24 06:59 18:59 06:59 Intake Total 1000 290 Output Total 1400 Balance 1000 -1110 Intake: Oral 1000 290 Output: Urine 1400 Uretheral (Aquino) 500 Other: Voiding Method Diaper Diaper Indwelling Catheter External Catheter External Catheter - Labs CBC & Chem 7: 02/14/24 03:30 02/14/24 03:30 Labs: Abnormal Lab Results - Last 24 Hours (Table) 02/13/24 02/13/24 02/13/24 Range/Units 06:29 06:29 07:30 RBC 3.59 L (4.10-5.20) X 10*6/uL Hgb 9.5 L (12.0-15.0) g/dL Hct 32.4 L (37.2-46.3) % MCH 26.5 L (27.0-32.0) pg MCHC 29.3 L (32.0-37.0) g/dL RDW 14.6 H (11.5-14.5) % Potassium 6.9 A* (3.5-5.5) mmol/L Carbon Dioxide 15.1 L (21.6-31.8) mmol/L Anion Gap 13.90 H (4.00-12.00) mmol/L BUN 85.7 H (9.0-27.0) mg/dL Creatinine 3.9 H (0.6-1.5) mg/dL Est GFR (CKD-EPI) 13 L (>=60) BUN/Creatinine Ratio 21.97 H (12.00-20.00) Ratio Glucose 180 H (70-110) mg/dL POC Glucose (mg/dL) 186 H (70-110) mg/dL Total Bilirubin 0.2 L (0.3-1.2) mg/dL AST 11 L (13-35) U/L Alkaline Phosphatase 184 H (41-126) U/L Albumin/Globulin Ratio 1.43 L (1.60-3.17) Ratio 02/13/24 02/13/24 02/13/24 Range/Units 12:21 17:11 20:10 RBC (4.10-5.20) X 10*6/uL Hgb (12.0-15.0) g/dL Hct (37.2-46.3) % MCH (27.0-32.0) pg MCHC (32.0-37.0) g/dL RDW (11.5-14.5) % Potassium (3.5-5.5) mmol/L Carbon Dioxide (21.6-31.8) mmol/L Anion Gap (4.00-12.00) mmol/L BUN (9.0-27.0) mg/dL Creatinine (0.6-1.5) mg/dL Est GFR (CKD-EPI) (>=60) BUN/Creatinine Ratio (12.00-20.00) Ratio Glucose (70-110) mg/dL POC Glucose (mg/dL) 171 H 150 H 146 H (70-110) mg/dL Total Bilirubin (0.3-1.2) mg/dL AST (13-35) U/L Alkaline Phosphatase (41-126) U/L Albumin/Globulin Ratio (1.60-3.17) Ratio 02/13/24 Range/Units 20:32 RBC (4.10-5.20) X 10*6/uL Hgb (12.0-15.0) g/dL Hct (37.2-46.3) % MCH (27.0-32.0) pg MCHC (32.0-37.0) g/dL RDW (11.5-14.5) % Potassium 6.4 H* (3.5-5.5) mmol/L Carbon Dioxide (21.6-31.8) mmol/L Anion Gap (4.00-12.00) mmol/L BUN (9.0-27.0) mg/dL Creatinine (0.6-1.5) mg/dL Est GFR (CKD-EPI) (>=60) BUN/Creatinine Ratio (12.00-20.00) Ratio Glucose (70-110) mg/dL POC Glucose (mg/dL) (70-110) mg/dL Total Bilirubin (0.3-1.2) mg/dL AST (13-35) U/L Alkaline Phosphatase (41-126) U/L Albumin/Globulin Ratio (1.60-3.17) Ratio Microbiology - Last 24 Hours (Table) 02/11/24 22:10 Blood Culture - Preliminary Blood 02/12/24 20:45 Urine Culture - Preliminary Urine,Voided Gram Neg Bacilli
[2024-02-14 17:20] LABS: Glucose,Whole Blood 263 mg/dL (70-110)
[2024-02-14 20:00] LABS: Glucose,Whole Blood 280 mg/dL (70-110)
[2024-02-15 07:28] LABS: Glucose,Whole Blood 180 mg/dL (70-110)
[2024-02-15 08:58] LABS: Basophils # (A) 0.05 X 10*3/uL (0.00-0.10); Basophils % (A) 0.6 %; Eosinophils # (A) 0.51 X 10*3/uL (0.04-0.35); Eosinophils % (A) 5.8 %; HCT 30.7 % (37.2-46.3); HGB 9.2 g/dL (12.0-15.0); Lymphocytes # (A) 2.05 X 10*3/uL (0.90-5.00); Lymphocytes % (A) 23.4 %; MCH 26.5 pg (27.0-32.0); MCV 88.5 FL (80.0-97.0); Mean Platelet Volume 11.4 FL (9.5-12.2); Monocytes # (A) 0.76 X 10*3/uL (0.20-1.00); Monocytes % (A) 8.7 %; NRBC Per 100 WBC 0 X 10*3/uL (0.00-0.01); Neutrophils # (A) 5.35 X 10*3/uL (1.80-7.70); Platelet Count 251 X 10*3/uL (140-440); RBC 3.47 X 10*6/uL (4.10-5.20); RDW 14.7 % (11.5-14.5); WBC 8.76 X 10*3/uL (4.50-10.00)
[2024-02-15 09:44] LABS: ALT 13 U/L (8-44); AST 9 U/L (13-35); Albumin 3.6 g/dL (3.8-4.9); Albumin/Globulin Ratio 1.38 Ratio (1.60-3.17); Alkaline Phosphatase 136 U/L (41-126); BUN/Creat Ratio 25.79 Ratio (12.00-20.00); Calcium 8.1 mg/dL (8.7-10.3); Carbon Dioxide 19.7 mmol/L (21.6-31.8); Chloride 109 mmol/L (96-109); Globulin 2.6 g/dL (1.6-3.3); Glucose 191 mg/dL (70-110); Potassium 5.4 mmol/L (3.5-5.5); Sodium 143 mmol/L (135-145); Total Bilirubin <0.2 mg/dL (0.3-1.2); Total Protein 6.2 g/dL (6.2-8.2)
--- NOTE | 2024-02-15 10:33 | P.PN ---
Subjective Progress Note Date: 02/15/24 HISTORY OF PRESENT ILLNESS: This is a 58-year-old female patient of mine with past medical history of hyp ertension and hypertensive cardiovascular disease, mixed hyperlipidemia, diabetes mellitus type 2 insulin requiring, diabetic polyneuropathy, history of uterine cancer has been under the care of Dr. Euceda at [facility], has not seen him since May, has been in the hospital not too long ago because of significant wound to the right buttock area that she just recovered from not too long ago about a week ago was seen at the wound clinic, apparently patient also had a significant history of chronic kidney disease stage IIIb, history of depression, history of rheumatoid arthritis, SLE, patient presented to the emergency department at [facility] because of increased bleeding and the patient has been getting significant amount of clot, she was scared that the patient is not able to control her bleeding at this time, even though the patient have thought in the past about going into hospice and palliative care patient apparently is not interested in hospice however she is willing to go to a palliative care treatment at this point in time, because of intractable pain and an incurable metastatic uterine cancer that she had she was brought into the emergency department at [facility] yesterday because generalized weakness not able to take care of herself at home she is not able to move she is not able to get out of her bed at this point in time because of her large body habitus and because of intractable pain and shortness of breath due to her COPD, therefore the patient will require a hospital bed for pain control COPD and symptoms related to her cancer requires positioning of her body in the ways that is not feasible with ordinary bed as the patient has a bed need to be elevated greater than 30 degrees most of the time to alleviate the pain she will also require to have a bedside commode as the patient is confined to her bed in her room and unable to get out of bed to the bathroom because of significant shortness of breath due to her COPD as well as her terminal cancer. Patient apparently was admitted to the hospital because she was not safe to go home the way she was and we will consult case management social worker as well as physical therapy to try to get the patient back to her home with palliative care team. 02/12: Patient is laying down in bed she is about the same, she continues to have some pressure sores on the back due to laying down in bed not able to move around, she is currently has a bariatric bed, she is going to go for palliative care when she gets discharged from the hospital at this time, she did have a urinary tract infection, urine was sent for culture, started on ceftriaxone 1 g of piggyback every 24 hours, her potassium is quite elevated, did receive 1 dose of Lokelma 10 g orally x 1, repeat her potassium again this afternoon, and recheck her labs tomorrow morning, continue to work with the case management social worker, to try to make arrangement for the patient to go home hopefully early Friday. 02/14: Patient is feeling generally weak today, she denies any chest pain, she appears to be somewhat short of breath, she continues to feel very dehydrated, her BUN up to 90, her creatinine is down a bit, her sodium bicarb is better, she is currently on sodium bicarb and drip at 100 cc an hour, she is filling up with water, she has significant abdominal wall edema and bilateral lower extremity edema at this time, she is not a candidate for dialysis at this time, nephrology is following, I spoke with the patient about no CODE STATUS at this time she will discuss with her and she will let me know otherwise we will plan for the patient to go to palliative care hopefully in the next 1 or 2 days. REVIEW OF SYSTEMS: Constitutional: No documented fever, no chills, no night sweats. No weight change. No weakness, fatigue or lethargy. No daytime sleepiness. EENT: No headache. No blurred vision or double vision, no loss of vision. No loss of Hearing, no ringing in the ears, no dizziness. No nasal drainage or co ngestion. No epistaxis. No sore throat. Lungs: Positive for shortness of breath, no cough, no sputum production. No wheezing. Reports dyspnea with activity. Cardiovascular: No chest pain, positive for lower extremity edema. Positive for palpitations. Positive for paroxysmal nocturnal dyspnea. Positive for orthopnea. Positive for lightheadedness or dizziness. No syncopal episodes. Abdominal: Reports abdominal pain. No nausea, vomiting. No diarrhea. No constipation. No bloody or tarry stools reports loss of appetite. Genitourinary: No dysuria, increased frequency, urgency. No urinary retention.positive for uterine bleeding Musculoskeletal: No myalgias. Positive for muscle weakness, positive for gait dysfunction, positive for frequent falls. Positive for back pain. Positive for neck pain. Integumentary: No wounds, no lesions. No rash or pruritus. No unusual bruising. No change in hair or nails. Neurologic: No aphasia. No facial droop. No change in mentation. No head injury. Positive for headache. No paralysis. Positive for paresthesia. Psychiatric: positive for depressio, anxiety. No mood swings. Endocrine: positive for abnormal blood sugars. Positive for weight change. PHYSICAL EXAMINATION: General: 58-year-old female laying down in bed in mild distress. HEENT: Head is atraumatic, normocephalic, pupils were equal round reactive to light and recommendation, extraocular muscle movement were intact, sclera nonicteric, conjunctivae were pale, mucous membranes of the mouth are somewhat dry. Neck: Supple, no JVP, normal carotid upstroke bilaterally, no lymphadenopathy. Chest: Decreased breath sounds at the bases, few rhonchi, no expiratory wheezes, no chest wall tenderness, no intercostal retractions. Heart: First heart sound is normal, second heart sound is normal there is systolic ejection murmur 2/6 located in the left sternal border. Abdomen: Soft, nontender, nondistended, positive bowel sounds. Extremities: There is +2 edema no calf tenderness DP +2 bilaterally. Neurologic examination: Patient is awake alert and oriented x3, cranial nerves II-12 appear grossly intact, muscle power were 4 out of 5 in upper extremities and 2 out of 5 in bilateral lower extremities, deep tendon reflexes normal bilaterally. ASSESSMENT AND PLAN: 1. Metastatic uterine cancer that is not curable at this stage with significant failure to thrive due to significant amount of pain and dyspnea due to combination of her terminal cancer as well as COPD and prior history of pulmonary embolism. Patient was seen by case management social worker, and the patient will try to get discharged to go home with palliative care team with a bariatric bed as well as bedside commode the pediatric hospital bed for pain control and COPD and symptoms related to terminal cancer that requires positioning of the body in ways not feasible with an ordinary bed the head of the bed must be elevated at more than 30 degrees most of the time to alleviate her pain and discomfort as far as her bedside commode patient will be sent home with a commode because she is confined to her bedroom and is unable to get to her bathroom because of shortness of breath due to her COPD and pulmonary embolism along with pain from terminal cancer. 2. Acute kidney injury on chronic kidney disease stage IIIb due to acute tubular necrosis with aggressive diuresis. Continue IV fluid to sodium bicarbonate drip at 100 cc an hour, repeat labs tomorrow morning. 3. Hyperkalemia. Patient has been on Lokelma 10 g orally twice every day last potassium was 5.4. 4. Hypertension and hypertensive cardiovascular disease. Continue patient on metoprolol 50 mg orally twice every day, monitor the patient blood pressure very closely. 5. Mixed hyperlipidemia. Continue patient on atorvastatin 10 mg once every day, monitor lipid panel, keep LDL 55-70. 6. Diabetes mellitus type 2. Continue Lantus 15 units twice a day along with NovoLog 8 units before each meal 3 times a day along with a sliding scale insulin. 7. History of bilateral pulmonary emboli status post IVC filter placement, continue Eliquis 2.5 mg orally twice every day. 8. History of SLE/rheumatoid arthritis continue patient on Plaquenil 200 mg orally twice every day, prednisone 10 mg orally once every day, patient is not a candidate for any DMARDs. 9. Anxiety and depressive disorder continue fluoxetine 20 mg orally once every day. 10. History of gout continue patient on allopurinol 50 mg orally once every da y. 11. History of COPD. Continue patient on DuoNeb 3 mL nebulization 4 times every day, continue montelukast 10 mg orally once every day. 12. History of uterine cancer patient has been currently on anastrozole 1 mg orally once every day, she has not been seen by her oncologist Dr. Euceda since May of this year, she has an IUD in the uterus 13. GERD with esophagitis. Continue pantoprazole 40 mg orally twice every day. 14. DVT prophylaxis. Bilateral knee-high DANIAL hose continue Eliquis 2.5 mg orally twice every day. 15. GI prophylaxis. Continue patient on pantoprazole 40 mg orally twice every day. 16. UTI With SIRS. Urine culture, start the patient on ceftriaxone 1 g piggy back every 24 hours, monitor the patient very closely. 17. None anion gap and anion gap metabolic acidosis due to acute kidney injury change IV fluid to D5 W with 3 A of sodium bicarbonate at 75 cc an hour, repeat potassium this afternoon repeat labs tomorrow morning. 18. Overall prognosis is guarded. 19. Discussed her CODE STATUS with her and she will discuss with her and let me know she should be no code. Objective - Vital Signs Vital signs: Vital Signs Temp 98.2 F 02/15/24 07:25 Pulse 71 02/15/24 07:25 Resp 16 02/15/24 07:25 BP 100/64 02/15/24 07:25 Pulse Ox 100 02/15/24 07:25 FiO2 Intake & Output 02/14/24 02/15/24 02/15/24 19:59 06:59 18:59 Intake Total 480 Output Total Balance 480 Intake: Oral 480 Output: Urine Other: Voiding Method Indwelling Catheter # Bowel Movements - Labs CBC & Chem 7: 02/15/24 05:22 02/15/24 05:22 Labs: Abnormal Lab Results - Last 24 Hours (Table) 02/14/24 02/14/24 02/14/24 Range/Units 12:14 17:19 19:02 RBC (4.10-5.20) X 10*6/uL Hgb (12.0-15.0) g/dL Hct (37.2-46.3) % MCH (27.0-32.0) pg MCHC (32.0-37.0) g/dL RDW (11.5-14.5) % Eosinophils # (0.04-0.35) X 10*3/uL Potassium 5.7 H (3.5-5.1) mmol/L Carbon Dioxide (21.6-31.8) mmol/L Anion Gap (4.00-12.00) mmol/L BUN (9.0-27.0) mg/dL Creatinine (0.6-1.5) mg/dL Est GFR (CKD-EPI) (>=60) BUN/Creatinine Ratio (12.00-20.00) Ratio Glucose (70-110) mg/dL POC Glucose (mg/dL) 200 H 263 H (70-110) mg/dL Calcium (8.7-10.3) mg/dL Total Bilirubin (0.3-1.2) mg/dL AST (13-35) U/L Alkaline Phosphatase (41-126) U/L Albumin (3.8-4.9) g/dL Albumin/Globulin Ratio (1.60-3.17) Ratio 02/14/24 02/15/24 02/15/24 Range/Units 19:56 05:22 05:22 RBC 3.47 L (4.10-5.20) X 10*6/uL Hgb 9.2 L (12.0-15.0) g/dL Hct 30.7 L (37.2-46.3) % MCH 26.5 L (27.0-32.0) pg MCHC 30.0 L (32.0-37.0) g/dL RDW 14.7 H (11.5-14.5) % Eosinophils # 0.51 H (0.04-0.35) X 10*3/uL Potassium (3.5-5.1) mmol/L Carbon Dioxide 19.7 L (21.6-31.8) mmol/L Anion Gap 14.30 H (4.00-12.00) mmol/L BUN 98.0 H (9.0-27.0) mg/dL Creatinine 3.8 H (0.6-1.5) mg/dL Est GFR (CKD-EPI) 13 L (>=60) BUN/Creatinine Ratio 25.79 H (12.00-20.00) Ratio Glucose 191 H (70-110) mg/dL POC Glucose (mg/dL) 280 H (70-110) mg/dL Calcium 8.1 L (8.7-10.3) mg/dL Total Bilirubin <0.2 L (0.3-1.2) mg/dL AST 9 L (13-35) U/L Alkaline Phosphatase 136 H (41-126) U/L Albumin 3.6 L (3.8-4.9) g/dL Albumin/Globulin Ratio 1.38 L (1.60-3.17) Ratio 02/15/24 Range/Units 07:27 RBC (4.10-5.20) X 10*6/uL Hgb (12.0-15.0) g/dL Hct (37.2-46.3) % MCH (27.0-32.0) pg MCHC (32.0-37.0) g/dL RDW (11.5-14.5) % Eosinophils # (0.04-0.35) X 10*3/uL Potassium (3.5-5.1) mmol/L Carbon Dioxide (21.6-31.8) mmol/L Anion Gap (4.00-12.00) mmol/L BUN (9.0-27.0) mg/dL Creatinine (0.6-1.5) mg/dL Est GFR (CKD-EPI) (>=60) BUN/Creatinine Ratio (12.00-20.00) Ratio Glucose (70-110) mg/dL POC Glucose (mg/dL) 180 H (70-110) mg/dL Calcium (8.7-10.3) mg/dL Total Bilirubin (0.3-1.2) mg/dL AST (13-35) U/L Alkaline Phosphatase (41-126) U/L Albumin (3.8-4.9) g/dL Albumin/Globulin Ratio (1.60-3.17) Ratio Microbiology - Last 24 Hours (Table) 02/11/24 22:10 Blood Culture - Preliminary Blood
--- NOTE | 2024-02-15 11:14 | P.PN ---
Subjective Progress Note Date: 02/15/24 Patient seen in follow-up for JOAO on CKD. Patient still feeling weak and complains of worsening edema. patient is awake, comfortable, no acute distress. Alert oriented x 3 Examination lower extremity shows +2 edema [employer] exam grossly intact Objective - Vital Signs Vital signs: Vital Signs Temp 98.2 F 02/15/24 07:25 Pulse 71 02/15/24 07:25 Resp 16 02/15/24 07:25 BP 100/64 02/15/24 07:25 Pulse Ox 100 02/15/24 07:25 FiO2 Intake & Output 02/14/24 02/15/24 02/15/24 19:59 06:59 18:59 Intake Total 480 Output Total Balance 480 Intake: Oral 480 Output: Urine Other: Voiding Method Indwelling Catheter # Bowel Movements - Labs CBC & Chem 7: 02/15/24 05:22 02/15/24 05:22 Labs: Abnormal Lab Results - Last 24 Hours (Table) 02/14/24 02/14/24 02/14/24 Range/Units 12:14 17:19 19:02 RBC (4.10-5.20) X 10*6/uL Hgb (12.0-15.0) g/dL Hct (37.2-46.3) % MCH (27.0-32.0) pg MCHC (32.0-37.0) g/dL RDW (11.5-14.5) % Eosinophils # (0.04-0.35) X 10*3/uL Potassium 5.7 H (3.5-5.1) mmol/L Carbon Dioxide (21.6-31.8) mmol/L Anion Gap (4.00-12.00) mmol/L BUN (9.0-27.0) mg/dL Creatinine (0.6-1.5) mg/dL Est GFR (CKD-EPI) (>=60) BUN/Creatinine Ratio (12.00-20.00) Ratio Glucose (70-110) mg/dL POC Glucose (mg/dL) 200 H 263 H (70-110) mg/dL Calcium (8.7-10.3) mg/dL Total Bilirubin (0.3-1.2) mg/dL AST (13-35) U/L Alkaline Phosphatase (41-126) U/L Albumin (3.8-4.9) g/dL Albumin/Globulin Ratio (1.60-3.17) Ratio 02/14/24 02/15/24 02/15/24 Range/Units 19:56 05:22 05:22 RBC 3.47 L (4.10-5.20) X 10*6/uL Hgb 9.2 L (12.0-15.0) g/dL Hct 30.7 L (37.2-46.3) % MCH 26.5 L (27.0-32.0) pg MCHC 30.0 L (32.0-37.0) g/dL RDW 14.7 H (11.5-14.5) % Eosinophils # 0.51 H (0.04-0.35) X 10*3/uL Potassium (3.5-5.1) mmol/L Carbon Dioxide 19.7 L (21.6-31.8) mmol/L Anion Gap 14.30 H (4.00-12.00) mmol/L BUN 98.0 H (9.0-27.0) mg/dL Creatinine 3.8 H (0.6-1.5) mg/dL Est GFR (CKD-EPI) 13 L (>=60) BUN/Creatinine Ratio 25.79 H (12.00-20.00) Ratio Glucose 191 H (70-110) mg/dL POC Glucose (mg/dL) 280 H (70-110) mg/dL Calcium 8.1 L (8.7-10.3) mg/dL Total Bilirubin <0.2 L (0.3-1.2) mg/dL AST 9 L (13-35) U/L Alkaline Phosphatase 136 H (41-126) U/L Albumin 3.6 L (3.8-4.9) g/dL Albumin/Globulin Ratio 1.38 L (1.60-3.17) Ratio 02/15/24 Range/Units 07:27 RBC (4.10-5.20) X 10*6/uL Hgb (12.0-15.0) g/dL Hct (37.2-46.3) % MCH (27.0-32.0) pg MCHC (32.0-37.0) g/dL RDW (11.5-14.5) % Eosinophils # (0.04-0.35) X 10*3/uL Potassium (3.5-5.1) mmol/L Carbon Dioxide (21.6-31.8) mmol/L Anion Gap (4.00-12.00) mmol/L BUN (9.0-27.0) mg/dL Creatinine (0.6-1.5) mg/dL Est GFR (CKD-EPI) (>=60) BUN/Creatinine Ratio (12.00-20.00) Ratio Glucose (70-110) mg/dL POC Glucose (mg/dL) 180 H (70-110) mg/dL Calcium (8.7-10.3) mg/dL Total Bilirubin (0.3-1.2) mg/dL AST (13-35) U/L Alkaline Phosphatase (41-126) U/L Albumin (3.8-4.9) g/dL Albumin/Globulin Ratio (1.60-3.17) Ratio Microbiology - Last 24 Hours (Table) 02/11/24 22:10 Blood Culture - Preliminary Blood Assessment and Plan Assessment: 1. Acute kidney injury, nonoliguric ATN possibly related to diuresis and urinary retention. Creatinine 4.0 mg/dL, now 3.8 today. No hydronephrosis, left kidney not visualized. UA concerning for UTI. 2. Hyperkalemia associated with acute kidney injury-Improved 3. Non-gap metabolic acidosis associated with acute kidney injury 4. Endometrial cancer with no metastases noted on CT chest, being followed by oncology. Incurable. 5. Chronic kidney disease NKF stage III with baseline creatinine at 1.5-2.0 mg/dL 6. Metabolic acidosis related to JOAO 7. Anemia with CKD goal Hb 10-11.5 Plan: Will discontinue bicarb drip, start PO bicarb 650mg TID Continue Lokelma 10g BID Good urine output, maintain Auqino for now. Home palliative care planning. Not a candidate for dialysis given advanced cancer. No uremic symptoms.
[2024-02-15 12:54] LABS: Glucose,Whole Blood 203 mg/dL (70-110)
[2024-02-15] MEDS: SODIUM BICARBONATE TAB 650 MG TAB PO SCH (13:11)
[2024-02-15 17:29] LABS: Glucose,Whole Blood 210 mg/dL (70-110)
[2024-02-15 20:29] LABS: Glucose,Whole Blood 221 mg/dL (70-110)
[2024-02-16 07:51] LABS: Glucose,Whole Blood 131 mg/dL (70-110)
[2024-02-16 08:12] VITALS: RESP 18
[2024-02-16 08:24] LABS: Basophils # (A) 0.06 X 10*3/uL (0.00-0.10); Basophils % (A) 0.7 %; Eosinophils # (A) 0.55 X 10*3/uL (0.04-0.35); HCT 29.4 % (37.2-46.3); HGB 8.9 g/dL (12.0-15.0); Lymphocytes # (A) 1.78 X 10*3/uL (0.90-5.00); Lymphocytes % (A) 19.4 %; MCH 27.2 pg (27.0-32.0); MCHC 30.3 g/dL (32.0-37.0); MCV 89.9 FL (80.0-97.0); Mean Platelet Volume 11.7 FL (9.5-12.2); Monocytes # (A) 0.74 X 10*3/uL (0.20-1.00); Monocytes % (A) 8.1 %; NRBC Per 100 WBC 0 X 10*3/uL (0.00-0.01); Neutrophils # (A) 6.03 X 10*3/uL (1.80-7.70); Neutrophils % (A) 65.5 %; Platelet Count 249 X 10*3/uL (140-440); RBC 3.27 X 10*6/uL (4.10-5.20); RDW 14.6 % (11.5-14.5); WBC 9.19 X 10*3/uL (4.50-10.00)
[2024-02-16 09:00] LABS: ALT 13 U/L (8-44); AST 7 U/L (13-35); Albumin 3.5 g/dL (3.8-4.9); Alkaline Phosphatase 123 U/L (41-126); BUN/Creat Ratio 29.33 Ratio (12.00-20.00); Blood Urea Nitrogen 96.8 mg/dL (9.0-27.0); Calcium 8.2 mg/dL (8.7-10.3); Carbon Dioxide 22.5 mmol/L (21.6-31.8); Chloride 109 mmol/L (96-109); Globulin 2.5 g/dL (1.6-3.3); Glucose 157 mg/dL (70-110); Sodium 144 mmol/L (135-145); Total Bilirubin <0.2 mg/dL (0.3-1.2)
--- NOTE | 2024-02-16 10:59 | P.PN ---
Subjective Patient is seen in follow-up for acute kidney injury on chronic kidney disease. Renal function improving. Hemodynamically stable. Has Aquino catheter. Nonoliguric. Wants to proceed with hospice. Vital signs are stable. General: No acute distress. HEENT: Head exam is unremarkable. LUNGS: No audible rhonchi or wheezes. HEART: Rate and Rhythm are regular. ABDOMEN: Nontender. EXTREMITITES: No edema. Objective - Vital Signs Vital signs: Vital Signs Temp 97.6 F 02/16/24 07:48 Pulse 80 02/16/24 07:48 Resp 18 02/16/24 07:48 BP 115/74 02/16/24 07:48 Pulse Ox 97 02/16/24 07:48 FiO2 Intake & Output 02/15/24 02/16/24 02/16/24 18:59 06:59 18:59 Intake Total 1020 Output Total 1000 1300 Balance 20 -1300 Intake: Oral 1020 Output: Urine 1000 1300 Other: Voiding Method Indwelling Catheter Indwelling Catheter Indwelling Catheter # Bowel Movements 2 - Labs CBC & Chem 7: 02/16/24 05:22 02/16/24 05:22 Labs: Abnormal Lab Results - Last 24 Hours (Table) 02/15/24 02/15/24 02/15/24 Range/Units 12:52 17:24 20:22 RBC (4.10-5.20) X 10*6/uL Hgb (12.0-15.0) g/dL Hct (37.2-46.3) % MCHC (32.0-37.0) g/dL RDW (11.5-14.5) % Eosinophils # (0.04-0.35) X 10*3/uL Anion Gap (4.00-12.00) mmol/L BUN (9.0-27.0) mg/dL Creatinine (0.6-1.5) mg/dL Est GFR (CKD-EPI) (>=60) BUN/Creatinine Ratio (12.00-20.00) Ratio Glucose (70-110) mg/dL POC Glucose (mg/dL) 203 H 210 H 221 H (70-110) mg/dL Calcium (8.7-10.3) mg/dL Total Bilirubin (0.3-1.2) mg/dL AST (13-35) U/L Total Protein (6.2-8.2) g/dL Albumin (3.8-4.9) g/dL Albumin/Globulin Ratio (1.60-3.17) Ratio 02/16/24 02/16/24 02/16/24 Range/Units 05:22 05:22 07:50 RBC 3.27 L (4.10-5.20) X 10*6/uL Hgb 8.9 L (12.0-15.0) g/dL Hct 29.4 L (37.2-46.3) % MCHC 30.3 L (32.0-37.0) g/dL RDW 14.6 H (11.5-14.5) % Eosinophils # 0.55 H (0.04-0.35) X 10*3/uL Anion Gap 12.50 H (4.00-12.00) mmol/L BUN 96.8 H (9.0-27.0) mg/dL Creatinine 3.3 H (0.6-1.5) mg/dL Est GFR (CKD-EPI) 16 L (>=60) BUN/Creatinine Ratio 29.33 H (12.00-20.00) Ratio Glucose 157 H (70-110) mg/dL POC Glucose (mg/dL) 131 H (70-110) mg/dL Calcium 8.2 L (8.7-10.3) mg/dL Total Bilirubin <0.2 L (0.3-1.2) mg/dL AST 7 L (13-35) U/L Total Protein 6.0 L (6.2-8.2) g/dL Albumin 3.5 L (3.8-4.9) g/dL Albumin/Globulin Ratio 1.40 L (1.60-3.17) Ratio Assessment and Plan Plan: Assessment: 1. Acute kidney injury secondary to ATN and urinary retention. Creatinine peaked at 4.0 this admission and is 3.3 today. No hydronephrosis noted on kidney ultrasound. Left kidney not visualized properly. 2. Chronic kidney disease stage IIIb with baseline creatinine 1.5-2. 3. Endometrial cancer. 4. Hyperkalemia secondary to acute kidney injury, acidosis and urinary retention. Improved. 5. Urinary retention. Has Aquino catheter. 6. Diabetes mellitus. 7. Metabolic acidosis secondary to acute kidney injury and retention. On oral bicarb. Improved. Status post bicarb drip. Plan: Patient has decided to proceed with hospice. Maintain Lokelma. Add Flomax.
[2024-02-16] MEDS ORDERED: TAMSULOSIN 0.4 MG CAP.ER.24H PO SCH (11:00)
[2024-02-16] MEDS: SODIUM ZIRCONIUM CYCLOSILICATE 10 GM PACKET PO SCH (11:18)
[2024-02-16 12:59] LABS: Glucose,Whole Blood 148 mg/dL (70-110)
[2024-02-16 13:09] VITALS: BP 120/72; PULSE 75; TEMP 97.5
[2024-02-16 17:03] LABS: Glucose,Whole Blood 188 mg/dL (70-110)
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
== END 2024-02-16 20:37 | disposition hospice, home (50) | DRG 683 ==
LOC: EC 19:56 → 5NMEDONC 22:53
PROVIDERS: ADMIT Internal Medicine; ATTEND Internal Medicine
DX: N17.0 Acute kidney failure with tubular necrosis (principal); E87.20 Acidosis, unspecified; N39.0 Urinary tract infection, site not specified; Z68.43 Body mass index [BMI] 50.0-59.9, adult; R65.10 Systemic inflammatory response syndrome (SIRS) of non-infectious origin without acute organ dysfunction; Z16.12 Extended spectrum beta lactamase (ESBL) resistance; R53.1 Weakness; N18.32 Chronic kidney disease, stage 3b; E78.2 Mixed hyperlipidemia; E11.42 Type 2 diabetes mellitus with diabetic polyneuropathy; E11.22 Type 2 diabetes mellitus with diabetic chronic kidney disease; K21.00 Gastro-esophageal reflux disease with esophagitis, without bleeding; J30.9 Allergic rhinitis, unspecified; R33.8 Other retention of urine; I13.10 Hypertensive heart and chronic kidney disease without heart failure, with stage 1 through stage 4 chronic kidney disease, or unspecified chronic kidney disease; G47.33 Obstructive sleep apnea (adult) (pediatric); E66.9 Obesity, unspecified; Z82.49 Family history of ischemic heart disease and other diseases of the circulatory system; Z88.1 Allergy status to other antibiotic agents; Z88.7 Allergy status to serum and vaccine; Z88.6 Allergy status to analgesic agent; Z88.2 Allergy status to sulfonamides; Z91.048 Other nonmedicinal substance allergy status; Z95.828 Presence of other vascular implants and grafts; B96.1 Klebsiella pneumoniae [K. pneumoniae] as the cause of diseases classified elsewhere; B96.4 Proteus (mirabilis) (morganii) as the cause of diseases classified elsewhere; E66.01 Morbid (severe) obesity due to excess calories; C54.1 Malignant neoplasm of endometrium; D63.1 Anemia in chronic kidney disease; E87.5 Hyperkalemia; F32.A Depression, unspecified; F41.9 Anxiety disorder, unspecified; J44.9 Chronic obstructive pulmonary disease, unspecified; M06.9 Rheumatoid arthritis, unspecified; M32.9 Systemic lupus erythematosus, unspecified; Z51.5 Encounter for palliative care; Z79.01 Long term (current) use of anticoagulants; Z79.4 Long term (current) use of insulin; Z79.811 Long term (current) use of aromatase inhibitors; Z79.899 Other long term (current) drug therapy; Z85.42 Personal history of malignant neoplasm of other parts of uterus; Z85.6 Personal history of leukemia; Z86.711 Personal history of pulmonary embolism; Z87.442 Personal history of urinary calculi
CPT/HCPCS: 36415; 71046; 76770; 80053; 81001; 83605; 83735; 84132; 84484; 85025; 85610; 85730; 87040; 87077; 87086; 87186; 87636; 93005; 99285